=== PATIENT | male | born 1945 | race Caucasian/White ===

== ENCOUNTER 2023-04-18 08:40 | Outpatient (OUT) | payer MEDICARE, OTHER, SELFPAY ==
[2023-04-18 09:09] LABS: Basophils Absolute Auto 0.1 10^3/uL (0.0-0.1); Basophils Percent Auto 3.3 % (0.2-2.0); Eosinophils Absolute Auto 0.2 10^3/uL (0.0-0.7); Hematocrit 42.7 % (42.0-54.0); Hemoglobin 14.9 g/dL (14.0-18.0); Immature Granulocytes Abs Auto 0.03 10^3/uL (0.00-0.03); Immature Granulocytes Pct Auto 0.7 % (0.0-0.5); Lymphocytes Percent Auto 23.4 % (20.5-60.0); Mean Corpuscular HGB Conc 34.9 g/dL (29.9-35.2); Mean Corpuscular Volume 100.2 fL (80.0-94.0); Mean Platelet Volume 9.5 fL (9.5-13.5); Monocytes Absolute Auto 0.6 10^3/uL (0.3-0.8); Monocytes Percent Auto 14.3 % (1.7-12.0); Neutrophils Absolute Auto 2.2 10^3/uL (1.4-6.5); Neutrophils Percent Auto 53.3 % (43.0-75.0); Platelet Count 228 10^3/uL (150-450); Red Blood Count 4.26 10^6/uL (4.70-6.10); Red Cell Distribution Width 13.6 % (11.0-15.0); White Blood Count 4.2 10^3/uL (4.0-11.0)
[2023-04-18 09:32] LABS: Estimated Average Glucose 148 mg/dL; Glycohemoglobin A1C 6.8 % (4.5-6.2)
[2023-04-18 09:52] LABS: Alanine Aminotransferase 14 U/L (16-63); Albumin Globulin Ratio 0.9; Albumin Level 3.4 g/dL (3.4-5.0); Alkaline Phosphatase 75 U/L (46-116); Anion Gap 9.9; Aspartate Amino Transferase 10 U/L (15-37); BUN Creatinine Ratio 14.6; Bilirubin Total 0.7 mg/dL (0.2-1.0); Calcium 8.7 mg/dL (8.5-10.1); Carbon Dioxide 28.3 mmol/L (21.0-32.0); Chloride 105 mmol/L (98-107); Chol HDL Ratio 2.8; Cholesterol 167 mg/dL (<=200); Estimated GFR (African America 55 (>=60); Estimated GFR (Non-African Ame 45 (>=60); Free T3 2.78 pg/mL (2.18-3.98); Globulin 3.6 g/dL; Glucose 178 mg/dL (74-106); HDL Cholesterol 60 mg/dL (40-60); Potassium 4.2 mmol/L (3.5-5.1); Sodium 139 mmol/L (136-145); Thyroid Stimulating Hormone 2.338 uIU/mL (0.358-3.740); Triglycerides 171 mg/dL (<=150); VLDL CHOLESTEROL 34.2 mg/dL
== END 2023-04-18 08:41 | disposition home or self-care (01) ==
LOC: LAB 08:45
PROVIDERS: PCP Family Medicine; Visit Provider Family Medicine
DX: E11.9 Type 2 diabetes mellitus without complications (principal); E78.5 Hyperlipidemia, unspecified
CPT/HCPCS: 36415; 80053; 80061; 83036; 84436; 84443; 84481; 85025

== ENCOUNTER 2023-09-25 09:41 | Emergency (ER) | payer MEDICARE, OTHER, SELFPAY ==
[2023-09-25 09:50] VITALS: BP 131/61; PULSE 74; RESP 18; TEMP 38.1; O2SAT 95; BMI 26.6
--- NOTE | 2023-09-25 09:58 | ED.GENADUL1 ---
HPI - General Adult General Chief complaint: Upper Respiratory Infection Stated complaint: URTI COVID + Time Seen by Provider: 09/25/23 09:58 Mode of arrival: walk-in Limitations: no limitations History of Present Illness HPI narrative: Patient is a 78-year-old male who is presenting to the Emergency Room with chief complaint of testing positive for Covid yesterday and today. Patient was here because he wanted to get a prescription for Paxlovid. Patient stated his symptoms started approximately 3-4 days ago with sinus congestion, mild cough. Patient is a diabetic, he has no long history of emphysema, chronic obstructive pulmonary disease. Patient has no headache or neck pain. No chest pain or shortness of breath. No nausea, vomiting, diarrhea, no other acute complaints. Patient stated he's had symptoms for 4-5 days. Patient's is at bedside, she does have a history of emphysema and chronic obstructive pulmonary disease and is also worried about her getting Covid but currently she is asymptomatic. Mild lightheaded dizziness, no vertigo. . All systems are negative except as noted/marked. All systems reviewed and otherwise negative. . Nurses note and vital signs reviewed and patient is not hypoxic. Patient looks well. General: The patient appears well and in no apparent distress. Patient is resting comfortably on cart. Patient is not toxic, lethargic, or listless Skin: Warm, dry, no pallor noted. There is no rash noted. No petechiae, purpura. No rash. Head: Normocephalic, atraumatic; Patient has no tenderness to palpation to bilateral frontal or maxillary sinuses. Eye: Normal conjunctiva, no drainage, EOMI. PERRL Ears, Nose, Mouth, and Throat: oral mucosa is moist. Nares patent. Mouth without vesicles. Cardiovascular: Regular Rate and Rhythm, no murmur, gallop, rub Respiratory: Patient is in no distress, no accessory muscle use, lungs are clear to auscultation, no wheezing, rales or rhonchi. Lungs are equal, clear bilateral. Back: non-tender, no CVA tenderness bilaterally to percussion. No CT LS midline pain GI: soft, obese, no tenderness to palpation, no masses appreciated. No rebound, guarding, or rigidity noted. No flank pain bilateral, No distention Musculoskeletal: Patient has full range of motion of all of the extremities, no motor, sensory, or focal neurological deficits Neurological: A&O x3, normal speech Psychiatric: Cooperative Related Data Home Medications Medication Instructions Recorded Confirmed empagliflozin 10 mg tablet 10 mg PO Q24H 09/25/23 09/25/23 (Jardiance) glyburide micronized 6 mg tablet 6 mg PO Q12H 09/25/23 09/25/23 metformin 500 mg tablet 500 mg PO Q8H 09/25/23 09/25/23 oxycodone 10 mg tablet 10 mg PO PRN 09/25/23 09/25/23 pioglitazone 30 mg tablet 30 mg PO Q24H 09/25/23 09/25/23 Previous Rx's Medication Instructions Recorded ondansetron HCl 4 mg/5 mL oral 1.6 mg (2 mL) PO DAILY PRN nausea 09/25/23 solution and vomiting #10 mL Allergies Allergy/AdvReac Type Severity Reaction Status Date / Time No Known Drug Allergies Allergy Verified 09/25/23 09:49 PFSH PFS Social History Smoking status: Never smoker Exam Constitutional Vital Signs, click to edit/add: Last Vital Signs Temp 100.5 F H 09/25/23 09:50 Pulse 76 09/25/23 10:51 Resp 18 09/25/23 10:51 BP 128/77 09/25/23 10:51 Pulse Ox 98 09/25/23 10:51 O2 Del Method Room Air 09/25/23 09:50 Course Vital Signs Vital signs: Vital Signs Temperature 100.5 F H 09/25/23 09:50 Pulse Rate 74 09/25/23 09:50 Respiratory Rate 18 09/25/23 09:50 Blood Pressure 131/61 09/25/23 09:50 Pulse Oximetry 95 09/25/23 09:50 Oxygen Delivery Method Room Air 09/25/23 09:50 Temperature 100.5 F H 09/25/23 09:50 Pulse Rate 76 09/25/23 10:51 Respiratory Rate 18 09/25/23 10:51 Blood Pressure 128/77 09/25/23 10:51 Pulse Oximetry 98 09/25/23 10:51 Oxygen Delivery Method Room Air 09/25/23 09:50 Medical Decision Making MDM Narrative Medical decision making narrative: Patient looks well. The benefits and risks of starting to take Paxlovid 4-5 days after his symptoms have started were discussed at bedside. Patient symptoms are very minor. After long discussion, patient has decided tonight. Not taking any additional medication besides treating his symptoms [id number]. Patient was given a prescription for Zofran to have Prophylactically. Questions about coving were answered for the patient and for his as well. He will follow-up with PCP as needed for any additional questioning medication immediately needed. Discharge Plan Discharge Chief Complaint: Upper Respiratory Infection Clinical Impression: COVID Patient Disposition: Home, Self-Care Time of Disposition Decision: 13:01 Condition: Fair Prescriptions / Home Meds: New ondansetron HCl 4 mg/5 mL solution 1.6 mg PO DAILY PRN (Reason: nausea and vomiting) Qty: 10 0RF No Action Jardiance 10 mg tablet 10 mg PO Q24H glyburide micronized 6 mg tablet 6 mg PO Q12H metformin 500 mg tablet 500 mg PO Q8H oxycodone 10 mg tablet 10 mg PO PRN pioglitazone 30 mg tablet 30 mg PO Q24H Instructions: COVID-19 (Coronavirus Disease 2019) (ED), Safely Care for Someone Who Has COVID-19 (ED), Social Distancing Guidelines for COVID-19 (ED) Additional Instructions: Follows CDC recommendations uncovered treatment at home and safety along with isolation. Education at bedside was done on taking Paxlovid. If any other questions arise, follow-up with PCP. Stand Alone Forms: Portal Instructions Referrals: Jose Alberto Young MD [Primary Care Provider] - 1 week
[2023-09-25] MEDS: IBUPROFEN 400 MG TABLET 800 MG PO (10:04)
[2023-09-25 10:51] VITALS: BP 128/77; PULSE 76; RESP 18; O2SAT 98
[2023-09-25 13:08] VITALS: BP 136/88; PULSE 88; RESP 18; O2SAT 98
== END 2023-09-25 13:10 | disposition home or self-care (01) ==
PROVIDERS: Emergency Provider Emergency Medicine; PCP Family Medicine
DX: U07.1 COVID-19 (principal); E11.9 Type 2 diabetes mellitus without complications; E66.9 Obesity, unspecified; Z79.899 Other long term (current) drug therapy; Z79.84 Long term (current) use of oral hypoglycemic drugs; Z68.26 Body mass index [BMI] 26.0-26.9, adult
CPT/HCPCS: 99283

== ENCOUNTER 2024-04-15 07:55 | Outpatient (OUT) | payer MEDICARE, OTHER, SELFPAY ==
--- OUTSIDE RECORDS SUMMARY | 2024-04-15 08:03 | XMS_ITS | CCD ---
Author Organization [facility] Care Team Providers Care Video Tape Duplicator Name Role Phone HANNA MATHIAS Primary Care Unavailable SELF, REFERRED Referring Unavailable TRISH CEVALLOS Admitting Unavailable FRANCIS SAVAGE Attending Unavailable [place] Procedure Practitioner Unavailab DANIELA Pennington Surgeon Unavailable [place] Procedure Practitioner Unavailab FRANCIS Cruz Surgeon Unavailable Hanna Mathias MD Primary Care Provider Hanna Mathias MD Primary Care Provider [phone] Hanna Mathias MD Primary Care Provider [phone] HANNA MATHIAS Admitting Unavailable STEW, DR FERREIRA Attending Unavailable STEW, DR FERREIRA Primary Care Unavailable STEW, DR FERREIRA Consulting Unavailable STEW, DR FERREIRA Admitting Unavailable STEW, DR FERREIRA Attending Unavailable STEW, DR FERREIRA Primary Care Unavailable STEW, DR FERREIRA Admitting Unavailable STEW, DR FERREIRA Attending Unavailable DR HANNA MATHIAS Primary Care Unavailable STEW, DR FERREIRA Consulting Unavailable DR ROXANA LEWIS Admitting Unavailable JOSHUA, DR SCHMIDT Attending Unavailable STEW, DR FERREIRA Primary Care Unavailable LEWISDR SCHMIDT Consulting Unavailable LEWIS, DR SCHMIDT Admitting Unavailable LEWISDR SCHMIDT Attending Unavailable STEW, DR FERREIRA Primary Care Unavailable STEW, DR FERREIRA Consulting Unavailable STEW, DR FERREIRA Admitting Unavailable STEW, DR FERREIRA Attending Unavailable STEW, DR FERREIRA Primary Care Unavailable STEW, DR FERREIRA Admitting Unavailable STEW, DR FERREIRA Attending Unavailable STEW, DR FERREIRA Primary Care Unavailable STEW, DR FERREIRA Consulting Unavailable STEW, DR FERREIRA Admitting Unavailable STEW, DR FERREIRA Attending Unavailable STEW, DR FERREIRA Primary Care Unavailable STEW, DR FERREIRA Consulting Unavailable Hanna Mathias MD Primary Care Provider [phone] Hanna Mathias MD Primary Care Provider [phone] Hanna Mathias MD Primary Care Provider [phone] Hanna Mathias MD Primary Care Provider [phone] URIEL GUNTER Referring Unavailable URIEL GUNTER Attending Unavailable HOY, HANNA M Primary Care Unavailable HOY, HANNA M Primary Care Unavailable URIEL GUNTER Referring Unavailable HOY, HANNA M Primary Care Unavailable CLAUDIA WILSON Attending Unavailable HOY, HANNA M Primary Care Unavailable HOY, HANNA M Primary Care Unavailable URIEL GUNTER Referring Unavailable URIEL GUNTER Referring Unavailable HOY, HANNA M Primary Care Unavailable URIEL GUNTER Attending Unavailable HOY, HANNA M Primary Care Unavailable URIEL GUNTER Referring Unavailable HOY, HANNA M Primary Care Unavailable CLAUDIA WILSON Attending Unavailable HOY, HANNA M Primary Care Unavailable URIEL GUNTER Referring Unavailable HOY, HANNA M Primary Care Unavailable URIEL GUNTER Referring Unavailable URIEL GUNTER Attending Unavailable HOY, HANNA M Primary Care Unavailable HOY, HANNA M Primary Care Unavailable Allergies Allergy Classification Reported Allergen(s) Allergy Type Date of Onset Reaction(s) Facility Aminoglycosides (antibiotic) (1 source) Tobramycin Drug Allergy 0 Other: See Comments [facility] Macrolides (antibiotic) (2 sources) Azithromycin Drug Allergy 7 Unknown [facility] Sulfonamides (antibiotic) (1 source) Sulfonamides (Antibiotic) Drug Allergy 2 Unknown [facility] (3 sources) Azithromycin; Translations: [AZITHROMYCIN] Drug Allergy 8 [facility] (2 sources) Sulfonamides (Antibiotic); Translations: [SULFA (SULFONAMIDE ANTIBIOTICS)] Drug allergy (disorder) 2 [facility] (20 sources) Azithromycin Drug Allergy 8 Unknown [facility] (20 sources) Erythromycin; Translations: [ERYTHROMYCIN] Drug Allergy 7 Unknown [facility] (20 sources) Sulfonamides (Antibiotic) Drug Allergy 2 Unknown [facility] (20 sources) Tobramycin; Translations: [TOBRAMYCIN] Drug Allergy 0 Other: See Comments [facility] (1 source) Erythromycin Drug Allergy [facility] Medications Current Medications Medication Drug Class(es) Dates Sig (Normalized) Sig (Original) dexamethasone 4 mg oral tablet (20 sources) Corticosteroid Start: 10-17-2023 End: 01-28-2024 take 2 tablets by mouth every week dexAMETHasone (DECADRON) 4 mg tablet TAKE 2 TABLETS BY MOUTH ONCE A WEEK 24 tablet 3 01/28/2024 Active Start: 06-02-2021 End: 10-16-2022 take 2 tablets by mouth every week dexAMETHasone (DECADRON) 4 mg tablet TAKE 2 TABLETS BY MOUTH ONCE A WEEK 24 tablet 3 10/16/2022 Active Comment on above: TAKE 2 TABLETS BY [facility] ONCE A WEEK dexlansoprazole 60 mg delayed release oral capsule (20 sources) Proton Pump Inhibitor Start: 021 take 1 capsule by mouth once daily DEXILANT 60 mg CpDM Take 1 capsule by mouth once daily. 0 09/20/2021 Active Comment on above: Take 1 capsule by [facility] once daily. empagliflozin 10 mg oral tablet (20 sources) Sodium-Glucose Cotransporter 2 Inhibitor Start: 022 take 1 tablet by mouth once daily JARDIANCE 10 mg tablet Take 10 mg by mouth once daily. 0 08/21/2022 Active Comment on above: Take 10 mg by mouth once daily. fenofibrate 145 mg oral tablet (20 sources) Peroxisome Proliferator Receptor alpha Agonist Start: 018 take 1 tablet by mouth once daily fenofibrate nanocrystallized (TRICOR) 145 mg tablet Take 145 mg by mouth once daily. 0 10/29/2017 Active Comment on above: Take 145 mg by mouth once daily. 30 actuat fluticasone furoate 0.1 mg/actuat / vilanterol 0.025 mg/actuat dry powder inhaler (20 sources) Corticosteroid, beta2-Adrenergic Agonist Start: 018 BREO ELLIPTA 100-25 mcg/dose inhaler 1 Inhalation once daily. 0 08/05/2018 Active Comment on above: 1 Inhalation once da mary. glyBURIDE 6 mg oral tablet (20 sources) Sulfonylurea Start: 023 glyBURIDE micronized (GLYNASE) 6 mg tablet Start: 07-25-2021 glyBURIDE micr onized (GLYNASE) 3 mg tablet lenalidomide 5 mg oral capsule (20 sources) Thalidomide Analog Start: 10-17-2023 End: 04-08-2024 lenalidomide (REVLIMID) 5 mg capsule Take 1 capsule by mouth daily for 21 days on and 7 days off. 21 capsule 0 04/08/2024 Active Start: 06-18-2023 End: 08-20-2023 lenalidomide (REVLIMID) 5 mg capsule Take 1 capsule by mouth daily for 21 days on and 7 days off. 21 capsule 0 08/20/2023 Active Start: 05-11-2023 lenalidomide ( REVLIMID) 5 mg capsule Take 1 capsule by mouth daily for 21 days on and 7 days off. 21 capsule 0 05/11/2023 Active Start: 03-06-2023 End: 04-18-2023 lenalidomide (REVLIMID) 5 mg capsule Take 1 capsule by mouth daily for 21 days on and 7 days off. 21 capsule 0 04/18/2023 Active Start: 07-20-2022 End: 02-05-2023 lenalidomide (REVLIMID) 5 mg capsule Take 1 capsule by mouth daily for 21 days on and 7 days off. 21 capsule 0 02/05/2023 Active Start: 11-28-2021 End: 06-16-2022 lenalidomide (REVLIMID) 5 mg capsule Take 1 capsule by mouth daily for 21 days on and 7 days off. 21 capsule 0 06/17/2022 Active Comment on above: Take 1 capsule by [facility] daily for 21 days on and 7 days off. levothyroxine sodium 0.05 mg oral tablet (20 sources) l-Thyroxine Start: 01-01-20 15 take 1 tablet by mouth once daily levothyroxine (SYNTHROID) 50 mcg tablet Take 50 mcg by mouth once daily. 0 12/31/2014 Active Comment on above: Take 50 mcg by mouth once daily. liothyronine sodium 0.005 mg oral tablet (20 sources) l-Triiodothyronine Start: 08-12-20 21 liothyronine (CYTOMEL) 5 mcg tablet meloxicam 15 mg oral tablet (20 sources) Nonsteroidal Anti-inflammatory Drug Start: 07-30-20 13 MELOXICAM 15 mg tablet Take 15 mg by mouth as needed. 0 07/30/2013 Active Comment on above: Take 15 mg by mouth as needed. metFORMIN hydrochloride 500 mg oral tablet (20 sources) Biguanide Start: 10-14-19 take 2 tablets by mouth once daily at breakfast GLUCOPHAGE 500 MG TAB Take 1,000 mg by mouth daily with breakfast. 0 10/14/2019 Active Comment on above: Take 1,000 mg by joel th daily with breakfast. oxyCODONE hydrochloride 10 mg oral tablet (20 sources) Opioid Agonist Start: 10-10-19 oxyCODONE IR (ROXICODONE) 10 mg tab 10 mg as needed. 0 10/10/2017 Active Comment on above: 10 mg as needed. pantoprazole 40 mg delayed release oral tablet (20 sources) Proton Pump Inhibitor take 1 tablet by mouth once daily pantoprazole DR (PROTONIX) 40 mg tablet Take 40 mg by mouth once daily. 0 Active Comment on above: Take 40 mg by mouth once daily. Completed/Discontinued Medications Medication Drug Class(es) Dates Sig (Normalized) Sig (Original) dexamethasone 1 mg/ml / tobramycin 3 mg/ml ophthalmic suspension (20 sources) Aminoglycoside Antibacterial, Corticosteroid Start: 08-01-2019 End: 11-27-2023 take 2 drop(s) into the eye(s) four times daily tobramycin-dexame thasone (TOBRADEX) ophthalmic suspension INSTILL 2 DROPS INTO AFFECTED EYE 4 TIMES DAILY 0 08/01/2019 11/27/2023 Discontinued (Discontinued by another Health Care Provider) Comment on above: INSTILL 2 DROPS INTO AFFECTED EYE 4 TIMES DAILY hydrocortisone 10 mg/ml / neomycin 3.5 mg/ml / polymyxin b 37524 unt/ml otic solution (20 sources) Aminoglycoside Antibacterial, Polymyxin-class Antibacterial, Corticosteroid Start: 05-29-2019 End: 11-27-2023 neomycin-polymyxi n-hydrocortisone (CORTISPORIN) otic solution INSTILL 3 4 DROPS IN AFFECTED EAR FOUR TIMES DAILY 1 05/29/2019 11/27/2023 Discontinued (Discontinued by Patient) Comment on above: INSTILL 3 4 DROPS IN AFFECTED EAR FOUR TIMES DAILY metroNIDAZOLE 500 mg oral tablet (20 sources) Nitroimidazole Antimicrobial Start: 08-15-2021 End: 11-27-2023 metroNIDAZOLE (FLAGYL) 500 mg tablet pamidronate 30 mg in NaCl 0.9% 250 mL (AREDIA) (1 source) Start: 02-26-2024 End: 02-26-2024 pamidronate 30 mg in NaCl 0.9% 250 mL (AREDIA) pioglitazone 30 mg oral tablet (20 sources) Peroxisome Proliferator Receptor alpha Agonist, Peroxisome Proliferator Receptor gamma Agonist, Thiazolidinedione Start: 08-03-2021 End: 11-27-2023 pioglitazone (ACTOS) 30 mg tablet vancomycin 250 mg oral capsule (20 sources) Glycopeptide Antibacterial Start: 08-15-2021 End: 11-27-2023 vancomycin (VANCOCIN) 250 mg capsule 0 08/15/2021 11/27/2023 Discontinued (Discontinued by another Health Care Provider) Problems Active Problems Problem Classification Problem Date Documented Da te Episodic/Chronic Chronic kidney disease (20 sources) Chronic kidney disease stage 3; Translations: [Stage 3 chronic kidney disease, unspecified whether stage 3a or 3b CKD] Onset: 03-06-2023 03-06-2023 Chronic Diabetes mellitus without complication (20 sources) Diabetes mellitus; Translations: [Type 2 diabetes mellitus without complications] Onset: 12-24-2012 12-24-2012 Chronic Disorders of lipid metabolism (1 source) Hyperlipidemia, unspecified; Translations: [HYPERLIPIDEMIA UNSPECIFIED] Onset: 03-16-2022 Chronic Multiple myeloma (20 sources) Multiple myeloma; Translations: [Multiple myeloma not having achieved remission] Onset: 09-25-2012 07-10-2014 Chronic Other bone disease and musculoskeletal deformities (20 sources) Osteitis deformans; 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] Onset: 12-24-2012 12-24-2012 Chronic Past or Other Problems Problem Classification Problem Date Documented Da te Episodic/Chronic Abdominal hernia (20 sources) Left inguinal hernia ; Translations: [Unilateral inguinal hernia, without obstruction or gangrene, not specified as recurrent] Onset: 10-20-2015 10-20-2015 Episodic Anal and rectal conditions (20 sources) Perineal irritation; Translations: [Other specified diseases of anus and rectum] Onset: 10-20-2015 10-20-2015 Episodic Diabetes mellitus without complication (1 source) Other abnormal glucose; Translations: [OTHER ABNORMAL GLUCOSE] Onset: 03-16-2022 Episodic Gastrointestinal hemorrhage (20 sources) Hemorrhage of rectum and anus; Translations: [Hemorrhage of anus and rectum] Onset: 10-20-2015 10-20-2015 Episodic Malaise and fatigue (5 sources) Other fatigue; Translations: [OTHER FATIGUE] Onset: 03-14-2022 Episodic Other aftercare (20 sources) Long-term current use of systemic 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; 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] Onset: 10-20-2015 10-20-2015 Episodic Other connective tissue disease (1 source) Abnormal posture; Translations: [ABNORMAL POSTURE] Onset: 03-28-2022 Episodic Other connective tissue disease (1 source) Pain in right hand; Translations: [PAIN IN RIGHT HAND] Onset: 03-28-2022 Episodic Other gastrointestinal disorders (20 sources) H/O: ulcerative colitis; Translations: [Personal history of other diseases of the digestive system] Onset: 12-24-2012 12-24-2012 Episodic Other gastrointestinal disorders (20 sources) Constipation; Translations: [Outlet dysfunction constipation] Onset: 10-20-2015 10-20-2015 Episodic Other screening for suspected conditions (not mental disorders or infectious disease) (20 sources) Raised prostate specific antigen; Translations: [Elevated prostate specific antigen [PSA]] Onset: 03-19-2020 03-19-2020 Episodic Residual codes; unclassified (4 sources) Acquired absence of other specified parts of digestive tract; Translations: [ACQ ABSENCE OTH PART DIGESTV TRACT] Onset: 09-12-2021 Episodic Screening and history of mental health and substance abuse codes (20 sources) Ex-smoker; Translations: [Personal history of nicotine dependence] Onset: 10-20-2015 10-20-2015 Episodic Spondylosis; intervertebral disc disorders; other back problems (4 sources) Radiculopathy, cervical region; Translations: [RADICULOPATHY CERVICAL REGION] Onset: 03-24-2022 Episodic Results Test Name Value Interpretation Reference Range Facility [facility] ZACH MANUEL ([id number]) 1945 M Date Time Provider Department 02/29/24 JUAN FERGUSON During your visit today, we recorded the following information about you: Juan Ferguson RN 02/29/2024 8:52 AM Signed ----- Message from Latrice Lechuga PA-C sent at 02/29/2024 8:10 AM EDT ----- Please let patient know his labs are stable and we will continue to monitor Juan Ferguson RN 02/29/2024 8:53 AM Signed Pt notified and verbalizes understanding. Juan Ferguson RN Allergies As of Date: 02/29/2024 Noted Allergy Reaction AZITHROMYCIN 07/12/2018 16 - Unknown ERTHROMYCIN (ERYTHROMYCIN) 12/05/2016 16 - Unknown SULFA (SULFONAMIDE ANTIBIOTICS) 09/19/2012 16 - Unknown TOBRAMYCIN 03/08/2020 14 - Other: See Comments Comments: made condition worse Date Reviewed: 02/26/2024 Reviewed by: Selin Stapleton MA - Fully Assessed Reason for Visit: Care Coordination [3491] Cmt: Labs Prescriptions as of 02/29/2024 - lenalidomide (REVLIMID) 5 mg capsule Take 1 capsule by mouth daily for 21 days on and 7 days off. - dexAMETHasone (DECADRON) 4 mg tablet TAKE 2 TABLETS BY MOUTH ONCE A WEEK - glyBURIDE micronized (GLYNASE) 6 mg tablet - JARDIANCE 10 mg tablet Take 10 mg by mouth once daily. - DEXILANT 60 mg CpDM Take 1 capsule by mouth once daily. - liothyronine (CYTOMEL) 5 mcg tablet - pantoprazole DR (PROTONIX) 40 mg tablet Take 40 mg by mouth once daily. - BREO ELLIPTA 100-25 mcg/dose inhaler 1 Inhalation once daily. - fenofibrate nanocrystallized (TRICOR) 145 mg tablet Take 145 mg by mouth once daily. - oxyCODONE IR (ROXICODONE) 10 mg tab 10 mg as needed. - levothyroxine (SYNTHROID) 50 mcg tablet Take 50 mcg by mouth once daily. - MELOXICAM 15 mg tablet Take 15 mg by mouth as needed. - GLUCOPHAGE 500 MG TAB Take 1,000 mg by mouth daily with breakfast. 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 Outlet dysfunction constipation [K59.02] 10/20/2015 Perirectal skin irritation [K62.89] 10/20/2015 Anal bleeding [K62.5] 10/20/2015 Type 2 diabetes mellitus without complication (*10/20/2015 alf current use of systemic steroids [Z79*10/20/2015 Left inguinal hernia [K40.90] 10/20/2015 Former smoker [Z87.891] 10/20/2015 Elevated prostate specific antigen (PSA) [R97.2*03/19/2020 Stage 3 chronic kidney disease, unspecified whe*03/06/2023 Encounter Status:Closed by JUAN FERGUSON on 02/29/24 Normal [facility] CBC W Auto Differential pane l (Bld)on 02-26-2024 Basophils (Bld) [#/Vol] 0.09 10*3/uL Normal <0.11 [facility] Comment on above: Order Comment: Speci men Type: BLOOD SPECIMENOrdering Facility: [facility] Address: [address] [place] [address] Performed By: #### 5 7021-8 ####[facility] LABCLIA [id number] [place] [address] Basophils/100 WBC (Bld) 1.4 % Normal [facility] Comment on above: Order Comment: Speci men Type: BLOOD SPECIMENOrdering Facility: [facility] Address: [address] [place] [address] Performed By: #### 5 7021-8 ####[facility] LABCLIA [id number] [place] [address] Differential cell count method Nom (Bld) Auto Normal [facility] Comment on above: Order Comment: Speci men Type: BLOOD SPECIMENOrdering Facility: [facility] Address: [address] [place] [address] Performed By: #### 5 7021-8 ####[facility] LABCLIA [id number] [place] [address] Eosinophils (Bld) [#/Vol] 0.44 10*3/uL Normal <0.46 [facility] Comment on above: Order Comment: Speci men Type: BLOOD SPECIMENOrdering Facility: [facility] Address: [address] [place] [address] Performed By: #### 5 7021-8 ####[facility] LABCLIA [id number] [place] [address] Eosinophils/100 WBC (Bld) 6.6 % Normal [facility] Comment on above: Order Comment: Speci men Type: BLOOD SPECIMENOrdering Facility: [facility] Address: [address] [place] [address] Performed By: #### 5 7021-8 ####[facility] LABCLIA [id number] [place] [address] Erythrocyte distribution width (RBC) [Ratio] 15.4 % High 11.5-15.0 [facility] Comment on above: Order Comment: Speci men Type: BLOOD SPECIMENOrdering Facility: [facility] Address: [address] [place] [address] Performed By: #### 5 7021-8 ####[facility] LABCLIA [id number] [place] [address] Hematocrit (Bld) [Volume fraction] 38.0 % Low 39.0-51.0 [facility] Comment on above: Order Comment: Speci men Type: BLOOD SPECIMENOrdering Facility: [facility] Address: [address] [place] [address] Performed By: #### 5 7021-8 ####[facility] LABCLIA [id number] [place] [address] Hemoglobin (Bld) [Mass/Vol] 12.9 g/dL Low 13.0-17.0 [facility] Comment on above: Order Comment: Speci men Type: BLOOD SPECIMENOrdering Facility: [facility] Address: [address] [place] [address] Performed By: #### 5 7021-8 ####[facility] LABCLIA [id number] [place] [address] Immature granulocytes (Bld) [#/Vol] 0.04 10*3/uL Normal <0.10 [facility] Comment on above: Order Comment: Speci men Type: BLOOD SPECIMENOrdering Facility: [facility] Address: [address] [place] [address] Performed By: #### 5 7021-8 ####[facility] LABCLIA [id number] [place] [address] Immature granulocytes/100 WBC (Bld) 0.6 % Normal [facility] Comment on above: Order Comment: Speci men Type: BLOOD SPECIMENOrdering Facility: [facility] Address: [address] [place] [address] Performed By: #### 5 7021-8 ####[facility] LABCLIA [id number] [place] [address] Lymphocytes (Bld) [#/Vol] 1.24 10*3/uL Normal 1.00-4.00 [facility] Comment on above: Order Comment: Speci men Type: BLOOD SPECIMENOrdering Facility: [facility] Address: [address] [place] [address] Performed By: #### 5 7021-8 ####[facility] LABCLIA [id number] [place] [address] Lymphocytes/100 WBC (Bld) 18.6 % Normal [facility] Comment on above: Order Comment: Speci men Type: BLOOD SPECIMENOrdering Facility: [facility] Address: [address] [place] [address] Performed By: #### 5 7021-8 ####[facility] LABCLIA [id number] [place] [address] MCH (RBC) [Entitic mass] 35.5 pg High 26.0-34.0 [facility] Comment on above: Order Comment: Speci men Type: BLOOD SPECIMENOrdering Facility: [facility] Address: [address] [place] [address] Performed By: #### 5 7021-8 ####[facility] LABCLIA [id number] [place] [address] MCHC (RBC) [Mass/Vol] 33.9 g/dL Normal 30.5-36.0 [facility] Comment on above: Order Comment: Speci men Type: BLOOD SPECIMENOrdering Facility: [facility] Address: [address] [place] [address] Performed By: #### 5 7021-8 ####[facility] LABCLIA [id number] [place] [address] MCV (RBC) [Entitic vol] 104.7 fL High 80.0-100.0 [facility] Comment on above: Order Comment: Speci men Type: BLOOD SPECIMENOrdering Facility: [facility] Address: [address] [place] [address] Performed By: #### 5 7021-8 ####[facility] LABCLIA [id number] [place] [address] Monocytes (Bld) [#/Vol] 0.88 10*3/uL High <0.87 [facility] Comment on above: Order Comment: Speci men Type: BLOOD SPECIMENOrdering Facility: [facility] Address: [address] [place] [address] Performed By: #### 5 7021-8 ####[facility] LABIA [id number] [place] [address] Monocytes/100 WBC (Bld) 13.2 % Normal [facility] Comment on above: Order Comment: Speci men Type: BLOOD SPECIMENOrdering Facility: [facility] Address: [address] [place] [address] Performed By: #### 5 7021-8 ####[facility] LABCLIA [id number] [place] [address] Neutrophils (Bld) [#/Vol] 3.96 10*3/uL Normal 1.45-7.50 [facility] Comment on above: Order Comment: Speci men Type: BLOOD SPECIMENOrdering Facility: [facility] Address: [address] [place] [address] Performed By: #### 5 7021-8 ####[facility] LABCLIA [id number] [place] [address] Neutrophils/100 WBC (Bld) 59.6 % Normal [facility] Comment on above: Order Comment: Speci men Type: BLOOD SPECIMENOrdering Facility: [facility] Address: [address] [place] [address] Performed By: #### 5 7021-8 ####[facility] LABCLIA [id number] [place] [address] Nucleated RBC (Bld) [#/Vol] 10*3/uL Normal <0.01 [facility] Comment on above: Order Comment: Speci men Type: BLOOD SPECIMENOrdering Facility: [facility] Address: [address] [place] [address] Performed By: #### 5 7021-8 ####[facility] LABCLIA [id number] [place] [address] Nucleated RBC/100 WBC (Bld) [Ratio] 0.0 /100 WBC Normal [facility] Comment on above: Order Comment: Speci men Type: BLOOD SPECIMENOrdering Facility: [facility] Address: [address] [place] [address] Performed By: #### 5 7021-8 ####[facility] LABCLIA [id number] [place] [address] Platelet mean volume (Bld) [Entitic vol] 10.6 fL Normal 9.0-12.7 [facility] Comment on above: Order Comment: Speci men Type: BLOOD SPECIMENOrdering Facility: [facility] Address: [address] [place] [address] Performed By: #### 5 7021-8 ####[facility] LABIA [id number] [place] [address] Platelets (Bld) [#/Vol] 203 10*3/uL Normal 150-400 [facility] Comment on above: Order Comment: Speci men Type: BLOOD SPECIMENOrdering Facility: [facility] Address: [address] [place] [address] Performed By: #### 5 7021-8 ####[facility] [id number] [place] [address] RBC (Bld) [#/Vol] 3.63 10*6/uL Low 4.20-6.00 [facility] Comment on above: Order Comment: Speci men Type: BLOOD SPECIMENOrdering Facility: [facility] Address: [address] [place] [address] Performed By: #### 5 7021-8 ####[facility] [id number] [place] [address] WBC (Bld) [#/Vol] 6.65 10*3/uL Normal 3.70-11.00 [facility] Comment on above: Order Comment: Speci men Type: BLOOD SPECIMENOrdering Facility: [facility] Address: [address] [place] [address] Performed By: #### 5 7021-8 ####[facility] LABIA [id number] [place] [address] CNOVSPon 02-26-2024 CNOVSP Visit (SP) Office ([facility]) ZACH MANUEL ([id number]) 1945 M Date Time Provider Department 02/26/24 1:15 PM URIEL GUNTER During your visit today, we recorded the following information about you: Temperature Pulse Respiration Blood pressure 97.6 degrees 59/minute 18/minute 126/68 Weight Height 84.3 kg 1.753 m Uriel Gunter MD 02/27/2024 4:09 PM Signed PATIENT NAME: Zach Manuel DATE: 02/26/2024 PRIMARY CARE PHYSICIAN: Dr. Hanna Mathias OTHER PHYSICIANS: Dr. Lewis, Dr. Martinez Portions of this encounter note have been copied from the note from 11/27/2023 and has been updated where appropriate, and reflect my current medical decision making from today. CC: This is a 78 year old male with a history of multiple myeloma, seen for scheduled follow-up. INTERIM HISTORY: Since the patient's last visit here he has had no significant medical changes. He remains on Revlimid 5 mg daily 3 weeks on and 1 week off plus Decadron 8 mg weekly. He is tolerating his medications well. He feels well today with no particular complaints. No unusual pain. No fevers or signs of infection. MEDICATIONS: lenalidomide (REVLIMID) 5 mg capsule Take 1 capsule by mouth daily for 21 days on and 7 days off. dexAMETHasone (DECADRON) 4 mg tablet TAKE 2 TABLETS BY MOUTH ONCE A WEEK glyBURIDE micronized (GLYNASE) 6 mg tablet JARDIANCE 10 mg tablet Take 10 mg by mouth once daily. DEXILANT 60 mg CpDM Take 1 capsule by mouth once daily. liothyronine (CYTOMEL) [address] (PROTONIX) 40 mg tablet Take 40 mg by mouth once daily. BREO ELLIPTA 100-25 mcg/dose inhaler 1 Inhalation once daily. fenofibrate nanocrystallized (TRICOR) 145 mg tablet Take 145 mg by mouth once daily. oxyCODONE IR (ROXICODONE) 10 mg tab 10 mg as needed. levothyroxine (SYNTHROID) 50 mcg tablet Take 50 mcg by mouth once daily. MELOXICAM 15 mg tablet Take 15 mg by mouth as needed. GLUCOPHAGE 500 MG TAB Take 1,000 mg by mouth daily with breakfast. 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 HEENT: Negative for frequent or significant headaches. No changes in hearing or vision, no nose bleeds or other nasal problems. Respiratory: Negative for cough, wheezing or shortness of breath. Cardiovascular: Negative for chest pain, leg swelling or palpitations. GI: Negative for abdominal discomfort, blood in stools or black stools or change in bowel habits. : No history of dysuria, frequency or incontinence. Musculoskeletal: Right leg pain status post fracture- persistent. Skin: Negative for lesions, rash and itching. Hematology/Lymphology: Negative for prolonged bleeding, bruising easily or swollen nodes. Neuro: No history of headaches, syncope, paralysis, seizures or tremors. PHYSICAL EXAM: Vitals: BP 126/68 Pulse (!) 59 Temp 36.4 ?C (97.6 ?F) (Temporal) Resp 18 Ht 175.3 cm (5' 9.02 ) Wt 84.3 kg (185 lb 13.6 oz) SpO2 97% BMI 27.43 kg/m? ECOG 0 Exam limited to gross visualization where appropriate due to COVID-19. Gen.: This is an age-appropriate patient in no acute distress. Head: Appears atraumatic with no visible lesions. Eyes: Pupils equally round and reactive to light, extraocular muscles are intact. Neck: Supple. Mouth: Mucous membranes appeared to be moist. Respiratory: Appears to be respiring comfortably. Neurologic: Nonfocal to gross visualization. Alert and oriented ?3. Psychiatric: No evidence of inappropriate anxiety or depression. Skin: Visible areas of skin without rash, lesions, wounds or petechiae. PATHOLOGY: 05/07/2020 Prostate biopsy ([facility]) FINAL DIAGNOSIS 1. Prostate, left base, core biopsy (A): Benign prostatic tissue 2. Prostate, left mid, core biopsy (B): Focal high-grade prostatic intraepithelial neoplasia (PIN) 3. Prostate, left apex, core biopsy (C): Benign prostatic tissue 4. Prostate, right base, core biopsy (D): Benign prostatic tissue 5. Prostate, right mid, core biopsy (E): Benign prostatic tissue 6. Prostate, right apex, core biopsy (F): Benign prostatic tissue 7. Prostate, T1 right mid posterolateral (more content not included)... Normal [facility] Comprehensive metabolic 2000 panelon 02-26-2024 Albumin [Mass/Vol] 3.9 g/dL Normal 3.9-4.9 [facility] Comment on above: Order Comment: Speci men Type: BLOOD SPECIMEN Ordering Facility: [facility] Address: [address] [place] [address] Performed By: #### 2 857-1 #### [facility] CLIA [id number] [facility] [place] [address] [place] ALP [Catalytic activity/Vol] 78 U/L Normal 38-113 [facility] Comment on above: Order Comment: Speci men Type: BLOOD SPECIMEN Ordering Facility: [facility] Address: [address] [address] Performed By: #### 2 857-1 #### [facility] CLIA [id number] [facility] [place] [address] [place] ALT [Catalytic activity/Vol] 8 U/L Low 10-54 [facility] Comment on above: Order Comment: Speci men Type: BLOOD SPECIMEN Ordering Facility: [facility] Address: [address] [address] Performed By: #### 2 857-1 #### [facility] CLIA [id number] [facility] [place] [address] [place] Anion gap [Moles/Vol] 6 mmol/L Low 8-15 [facility] Comment on above: Order Comment: Speci men Type: BLOOD SPECIMEN Ordering Facility: [facility] Address: [address] Performed By: #### 2 857-1 #### [facility] CLIA [id number] [address] [place] [address] [place] AST [Catalytic activity/Vol] 13 U/L Low 14-40 [facility] Comment on above: Order Comment: Speci men Type: BLOOD SPECIMEN Ordering Facility: [facility] Address: [address] Performed By: #### 2 857-1 #### [facility] CLIA [id number] [address] [place] [address] [place] Bilirubin [Mass/Vol] 0.8 mg/dL Normal 0.2-1.3 [facility] Comment on above: Order Comment: Speci men Type: BLOOD SPECIMEN Ordering Facility: [facility] Address: [address] [place], [place] [address] Performed By: #### 2 857-1 #### [facility] CLIA [id number] [address] [place] [address] [place] Calcium [Mass/Vol] 8.9 mg/dL Normal 8.5-10.2 [facility] Comment on above: Order Comment: Speci men Type: BLOOD SPECIMEN Ordering Facility: [facility] Address: [address] Performed By: #### 2 857-1 #### [facility] CLIA [id number] [address] [place] [address] [place] Chloride [Moles/Vol] 103 mmol/L Normal 98-107 [facility] Comment on above: Order Comment: Speci men Type: BLOOD SPECIMEN Ordering Facility: [facility] Address: [address] [place] [address] Performed By: #### 2 857-1 #### [facility] CLIA [id number] [address] [place] [address] [place] CO2 [Moles/Vol] 30 mmol/L Normal 22-30 [facility] Comment on above: Order Comment: Speci men Type: BLOOD SPECIMEN Ordering Facility: [facility] Address: [address] [place] [address] Performed By: #### 2 857-1 #### [facility] CLIA [id number] [address] [place] [address] [place] Creatinine [Mass/Vol] 1.70 mg/dL High 0.73-1.22 [facility] Comment on above: Order Comment: Speci men Type: BLOOD SPECIMEN Ordering Facility: [facility] Address: [address] [place] [address] Performed By: #### 2 857-1 #### [facility] CLIA [id number] [address] [place] [address] [place] Creatinine and Glomerular filtration rate.predicted panel (S/P/Bld) 41 mL/min/1.73m??? Low >=60 [facility] Comment on above: Order Comment: Speci men Type: BLOOD SPECIMEN Ordering Facility: [facility] Address: [address] [place] [address] Result Comment: Chanda mated Glomerular Filtration Rate (eGFR) is calculated using the 2020 CKD-EPI creatinine equation. This equation utilizes serum creatinine, sex, and age as parameters. The creatinine assay has traceable calibration to isotope dilution-mass spectrometry. Refer to KDIGO guidelines for clinical interpretation. In patients with unstable renal function, e.g. those with acute kidney injury, the eGFR may not accurately reflect actual GFR. Performed By: #### 2 857-1 #### [facility] CLIA [id number] [address] [place] [address] [place] Glucose [Mass/Vol] 175 mg/dL High 74-99 [facility] Comment on above: Order Comment: Michelle bueno Type: BLOOD SPECIMEN Ordering Facility: [facility] Address: [address] [place] [address] Result Comment: The [place] [employer] (ADA) provides guidance for cutoff values for fasting glucose and random glucose. The ADA defines fasting as no caloric intake for at least 8 hours. Fasting plasma glucose results between 100 to 125 mg/dL indicate increased risk for diabetes (prediabetes). Fasting plasma glucose results greater than or equal to 126 mg/dL meet the criteria for diagnosis of diabetes. In the absence of unequivocal hyperglycemia, results should be confirmed by repeat testing. In a patient with classic symptoms of hyperglycemia or hyperglycemic crisis, random plasma glucose results greater than or equal to 200 mg/dL meet the criteria for diagnosis of diabetes. Reference: Standards of Medical Care in Diabetes 2016, [place] [employer]. Diabetes Care. 2016.39(Suppl 1). Performed By: #### 2 857-1 #### [facility] CLIA [id number] [address] [place] [address] [place] Potassium [Moles/Vol] 4.8 mmol/L Normal 3.7-5.1 [facility] Comment on above: Order Comment: Michelle bueno Type: BLOOD SPECIMEN Ordering Facility: [facility] Address: [address] [place] [address] Performed By: #### 2 857-1 #### [facility] CLIA [id number] [address] [place] [address] [place] Protein [Mass/Vol] 6.7 g/dL Normal 6.3-8.0 [facility] Comment on above: Order Comment: Michelle bueno Type: BLOOD SPECIMEN Ordering Facility: [facility] Address: [address] [place] [address] Performed By: #### 2 857-1 #### [facility] CLIA [id number] [address] [place] [address] [place] Sodium [Moles/Vol] 139 mmol/L Normal 136-144 [facility] Comment on above: Order Comment: Speci men Type: BLOOD SPECIMEN Ordering Facility: [facility] Address: [address] [address] Performed By: #### 2 857-1 #### [facility] CLIA [id number] [address] [place] [address] [place] Urea nitrogen [Mass/Vol] 23 mg/dL Normal 9-24 [facility] Comment on above: Order Comment: Speci men Type: BLOOD SPECIMEN Ordering Facility: [facility] Address: [address] Performed By: #### 2 857-1 #### [facility] CLIA [id number] [address] [place] [address] [place] IMMUNOFIXATION SCREEN, SERUM on 02-26-2024 INTERPRETATION (MPA) Atypical restricted bands are present in the IgG and kappa regions. Consistent with IgG kappa monoclonal gammopathy. Normal [facility] Comment on above: Order Comment: Speci men Type: BLOOD SPECIMENOrdering Facility: [facility] Address: [address] [place] [address] Performed By: #### I FESC ####[facility]IA [id number] [place] [address] [place] MPA RESULT M protein is present. Abnormal No M p rotein is identified. [facility] Comment on above: Order Comment: Speci men Type: BLOOD SPECIMENOrdering Facility: [facility] Address: [address] [place] [address] Performed By: #### I FESC ####[facility] [id number] [place] [address] [place] STAFF REVIEW (MPA) Reviewed by Dr. Marcel White MD Normal [facility] Comment on above: Order Comment: Speci men Type: BLOOD SPECIMENOrdering Facility: [facility] Address: [address] [place] [address] Performed By: #### I FESC ####[facility] [id number] [place] [address] [place] IMMUNOGLOBULINS,IGG,IGA,IGMo n 02-26-2024 IgA [Mass/Vol] 96 mg/dL Normal 70-400 [facility] Comment on above: Order Comment: Speci men Type: BLOOD SPECIMENOrdering Facility: [facility] Address: [address] [place] [address] Performed By: #### S ERIMM ####[facility] [id number] [place] [address] [place] IgG [Mass/Vol] 1109 mg/dL Normal 700-1600 [facility] Comment on above: Order Comment: Speci men Type: BLOOD SPECIMENOrdering Facility: [facility] Address: [address] [place] [address] Performed By: #### S ERIMM ####[facility] [id number] [place] [address] [place] IgM [Mass/Vol] 17 mg/dL Low 40-230 [facility] Comment on above: Order Comment: Speci men Type: BLOOD SPECIMENOrdering Facility: [facility] Address: [address] [place] [address] Performed By: #### S ERIMM ####[facility] [id number] [place] [address] [place] KAPPA/DANIELS,FREE,SERon 2023 Immunoglobulin light chains.kappa.free (S) [Mass/Vol] 40.3 mg/L High 3.3-19.4 [facility] Comment on above: Order Comment: Speci men Type: BLOOD SPECIMENOrdering Facility: [facility] Address: [address] [place] [address] Result Comment: Rare ly, increased serum free light chains levels may not be detected or accurately quantified due to prozone phenomenon or in high viscosity samples using this immunoturbidimetric assay. Correlation with other laboratory results and clinical findings is recommended. The [place] Free Light Chain was performed using the Binding Site Optilite immunoturbidimetric method. Result obtained with different assay methods or kits cannot be used interchangeably. Performed By: #### K LFRS ####[facility] [id number] [place] [address] [place] Immunoglobulin light chains.kappa/Immun oglobulin light chains.lambda (S) [Mass ratio] 1.57 Normal 0.26-1.65 [facility] Comment on above: Order Comment: Speci men Type: BLOOD SPECIMENOrdering Facility: [facility] Address: [address] [place] [address] Performed By: #### K LFRS ####[facility] [id number] [address] [place] Immunoglobulin light chains.lambda.free [Mass/Vol] 25.6 mg/L Normal 5.7-26.3 [facility] Comment on above: Order Comment: Speci men Type: BLOOD SPECIMENOrdering Facility: [facility] Address: [address] [place] [address] Result Comment: Rare ly, increased serum free light chains levels may not be detected or accurately quantified due to prozone phenomenon or in high viscosity samples using this immunoturbidimetric assay. Correlation with other laboratory results and clinical findings is recommended. The Lambda Free Light Chain was performed using the Binding Site Optilite immunoturbidimetric method. Result obtained with different assay methods or kits cannot be used interchangeably. Performed By: #### K LFRS ####[facility] [id number] [place] [address] [place] PROTEIN ELECTROPHORESIS SERU M WITH TOÑITO (P)on 02-26-2024 Albumin [Mass/Vol] 4.08 g/dL Normal 3.43-5.41 [facility] Comment on above: Order Comment: Speci men Type: BLOOD SPECIMENOrdering Facility: [facility] Address: [address] [place] [address] Performed By: #### L [id number] ####[facility] [id number] [place] [address] [place] Alpha 1 globulin Elph [Mass/Vol] 0.25 g/dL Normal 0.18-0.43 [facility] Comment on above: Order Comment: Speci men Type: BLOOD SPECIMENOrdering Facility: [facility] Address: [address] [place] [address] Performed By: #### L [id number] ####[facility] [id number] [place] [address] [place] Alpha 2 globulin Elph [Mass/Vol] 0.67 g/dL Normal 0.42-0.98 [facility] Comment on above: Order Comment: Speci men Type: BLOOD SPECIMENOrdering Facility: [facility] Address: [address] [place] [address] Performed By: #### L [id number] ####[facility] [id number] [place] [address] [place] Beta globulin Elph [Mass/Vol] 0.65 g/dL Normal 0.61-1.17 [facility] Comment on above: Order Comment: Speci men Type: BLOOD SPECIMENOrdering Facility: [facility] Address: [address] [place] [address] Performed By: #### L [id number] ####[facility] [id number] [place] [address] [place] COMMENT (SERUM PROT ELECTRO) Monoclonal Protein analysis (immunofixation) is not indicated. Normal [facility] Comment on above: Order Comment: Speci men Type: BLOOD SPECIMENOrdering Facility: [facility] Address: [address] [place] [address] Performed By: #### L [id number] ####[facility] [id number] [place] [address] [place] Gamma globulin Elph [Mass/Vol] 1.05 g/dL Normal 0.53-1.51 [facility] Comment on above: Order Comment: Speci men Type: BLOOD SPECIMENOrdering Facility: [facility] Address: [address] [place] [address] Performed By: #### L [id number] ####[facility] [id number] [place] [address] [place] INTERPRETATION COMMENT FOR PROTEIN ELECTROPHORESIS See separate immunofixation report for characterization of monoclonal gammopathy. Normal [facility] Comment on above: Order Comment: Speci men Type: BLOOD SPECIMENOrdering Facility: [facility] Address: [address] [place] [address] Performed By: #### L [id number] ####[facility] [id number] [place] [address] [place] M-PROTEIN LOCATION Gamma Fraction 1 Normal [facility] Comment on above: Order Comment: Speci men Type: BLOOD SPECIMENOrdering Facility: [facility] Address: [address] [place] [address] Performed By: #### L [id number] ####[facility] [id number] [place] [address] [place] Protein Fractions [Interp] An M protein is identified on protein electrophoresis. Abnormal No definitive M protein is identified on protein electrophore sis. [facility] Comment on above: Order Comment: Speci men Type: BLOOD SPECIMENOrdering Facility: [facility] Address: [address] [place] [address] Performed By: #### L [id number] ####[facility] [id number] [place] [address] [place] Protein.monoclonal Elph [Mass/Vol] 0.67 g/dL High <=0.00 [facility] Comment on above: Order Comment: Speci men Type: BLOOD SPECIMENOrdering Facility: [facility] Address: [address] [place] [address] Performed By: #### L [id number] ####[facility] [id number] [place] [address] [place] SPE STAFF REVIEW Reviewed by Dr. Marcel White MD [facility] Comment on above: Order Comment: Speci men Type: BLOOD SPECIMENOrdering Facility: [facility] Address: [address] [place] [address] Performed By: #### L [id number] ####[facility] [id number] [place] [address] [place] Prot SerPl-mCncon 02-26-2024 Protein [Mass/Vol] 6.3 g/dL Normal 6.3-8.0 [facility] Comment on above: Order Comment: Speci men Type: BLOOD SPECIMENOrdering Facility: [facility] Address: [address] [place] [address] Performed By: #### 2 885-2 ####[facility] [id number] [place] [address] [place] Basic metabolic 2000 panelon 11-27-2023 Anion gap [Moles/Vol] 9 mmol/L Normal 9-18 [facility] Comment on above: Order Comment: Speci men Type: BLOOD SPECIMEN Ordering Facility: [facility] Address: [address] Performed By: #### 2 857-1 #### [facility] CLIA [id number] [address] [place] [address] [place] Calcium [Mass/Vol] 9.2 mg/dL Normal 8.5-10.2 [facility] Comment on above: Order Comment: Speci men Type: BLOOD SPECIMEN Ordering Facility: [facility] Address: [address] [place] [address] Performed By: #### 2 857-1 #### [facility] CLIA [id number] [address] [place] [address] [place] Chloride [Moles/Vol] 101 mmol/L Normal 97-105 [facility] Comment on above: Order Comment: Speci men Type: BLOOD SPECIMEN Ordering Facility: [facility] Address: [address] [place] [address] Performed By: #### 2 857-1 #### [facility] CLIA [id number] [address] [place] [address] [place] CO2 [Moles/Vol] 28 mmol/L Normal 22-30 [facility] Comment on above: Order Comment: Speci men Type: BLOOD SPECIMEN [facility]ing Facility: [facility] Address: [address] [place] [address] Performed By: #### 2 857-1 #### [facility] [facility] CLIA [id number] [facility] [place] [address] [place] Creatinine [Mass/Vol] 1.53 mg/dL High 0.73-1.22 [facility] Comment on above: Order Comment: Speci men Type: BLOOD SPECIMEN Ordering Facility: [facility] Address: [address] [place] [address] Performed By: #### 2 857-1 #### [facility] CLIA [id number] [facility] [place] Creatinine and Glomerular filtration rate.predicted panel (S/P/Bld) 47 mL/min/1.73m??? Low >=60 [facility] Comment on above: Order Comment: Speci men Type: BLOOD SPECIMEN Ordering Facility: [facility] Address: [address] [place] [address] Result Comment: Chanda mated Glomerular Filtration Rate (eGFR) is calculated using the 2020 CKD-EPI creatinine equation. This equation utilizes serum creatinine, sex, and age as parameters. The creatinine assay has traceable calibration to isotope dilution-mass spectrometry. Refer to KDIGO guidelines for clinical interpretation. In patients with unstable renal function, e.g. those with acute kidney injury, the eGFR may not accurately reflect actual GFR. Performed By: #### 2 857-1 #### [facility] CLIA [id number] [facility] [place] [address] [place] Glucose [Mass/Vol] 110 mg/dL High 74-99 [facility] Comment on above: Order Comment: Michelle bueno Type: BLOOD SPECIMEN Ordering Facility: [facility] Address: [address] [place] [address] Result Comment: The [place] Diabetes Association (ADA) provides guidance for cutoff values for fasting glucose and random glucose. The ADA defines fasting as no caloric intake for at least 8 hours. Fasting plasma glucose results between 100 to 125 mg/dL indicate increased risk for diabetes (prediabetes). Fasting plasma glucose results greater than or equal to 126 mg/dL meet the criteria for diagnosis of diabetes. In the absence of unequivocal hyperglycemia, results should be confirmed by repeat testing. In a patient with classic symptoms of hyperglycemia or hyperglycemic crisis, random plasma glucose results greater than or equal to 200 mg/dL meet the criteria for diagnosis of diabetes. Reference: Standards of Medical Care in Diabetes 2016, [place] [employer] Association. Diabetes Care. 2016.39(Suppl 1). Performed By: #### 2 857-1 #### [facility] CLIA [id number] [address] [place] [address] [place] Potassium [Moles/Vol] 3.9 mmol/L Normal 3.7-5.1 [facility] Comment on above: Order Comment: Michelle bueno Type: BLOOD SPECIMEN Ordering Facility: [facility] Address: [address] [address] Performed By: #### 2 857-1 #### [facility] CLIA [id number] [address] [place] [address] [place] Sodium [Moles/Vol] 138 mmol/L Normal 136-144 [facility] Comment on above: Order Comment: Michelle bueno Type: BLOOD SPECIMEN Ordering Facility: [facility] Address: [address] [place] [address] Performed By: #### 2 857-1 #### [facility] CLIA [id number] [address] [place] [address] [place] Urea nitrogen [Mass/Vol] 22 mg/dL Normal 9-24 [facility] Comment on above: Order Comment: Speci men Type: BLOOD SPECIMEN Ordering Facility: [facility] Address: [address] [place] [address] Performed By: #### 2 857-1 #### [facility] CLIA [id number] [address] [place] [address] [place] CBC W Auto Differential pane l (Bld)on 11-27-2023 Basophils (Bld) [#/Vol] 0.07 10*3/uL Normal <0.11 [facility] Comment on above: Order Comment: Speci men Type: BLOOD SPECIMEN Ordering Facility: [facility] Address: [address] [place] [address] Performed By: #### 2 857-1 #### [facility] CLIA [id number] [address] [place] [address] [place] Basophils/100 WBC (Bld) 1.7 % Normal [facility] Comment on above: Order Comment: Speci men Type: BLOOD SPECIMEN Ordering Facility: [facility] Address: [address] [place] [address] Performed By: #### 2 857-1 #### [facility] CLIA [id number] [facility] [place] [address] [place] Differential cell count method Nom (Bld) Auto Normal [facility] Comment on above: Order Comment: Speci men Type: BLOOD SPECIMEN Ordering Facility: [facility] Address: [address] [place], [place] [address] Performed By: #### 2 857-1 #### [facility] CLIA [id number] [address] [place] [address] [place] Eosinophils (Bld) [#/Vol] 0.41 10*3/uL Normal <0.46 [facility] Comment on above: Order Comment: Speci men Type: BLOOD SPECIMEN Ordering Facility: [facility] Address: [address] Performed By: #### 2 857-1 #### [facility] CLIA [id number] [address] [place] [address] [place] Eosinophils/100 WBC (Bld) 10.2 % Normal [facility] Comment on above: Order Comment: Speci men Type: BLOOD SPECIMEN Ordering Facility: [facility] Address: [address] Performed By: #### 2 857-1 #### [facility] CLIA [id number] [address] [place] [address] [place] Erythrocyte distribution width (RBC) [Ratio] 17.2 % High 11.5-15.0 [facility] Comment on above: Order Comment: Speci men Type: BLOOD SPECIMEN Ordering Facility: [facility] Address: [address] Performed By: #### 2 857-1 #### [facility] CLIA [id number] [address] [place] [address] [place] Hematocrit (Bld) [Volume fraction] 39.1 % Normal 39.0-51.0 [facility] Comment on above: Order Comment: Speci men Type: BLOOD SPECIMEN Ordering Facility: [facility] Address: [address] Performed By: #### 2 857-1 #### [facility] CLIA [id number] [address] [place] [address] [place] Hemoglobin (Bld) [Mass/Vol] 13.3 g/dL Normal 13.0-17.0 [facility] Comment on above: Order Comment: Speci men Type: BLOOD SPECIMEN Ordering Facility: [facility] Address: [address] [place] [address] Performed By: #### 2 857-1 #### [facility] CLIA [id number] [address] [place] [address] [place] Immature granulocytes (Bld) [#/Vol] 10*3/uL Normal <0.10 [facility] Comment on above: Order Comment: Speci men Type: BLOOD SPECIMEN Ordering Facility: [facility] Address: [address] Performed By: #### 2 857-1 #### [facility] CLIA [id number] [address] [place] Immature granulocytes/100 WBC (Bld) 0.5 % Normal [facility] Comment on above: Order Comment: Speci men Type: BLOOD SPECIMEN Ordering Facility: [facility] Address: [address] Performed By: #### 2 857-1 #### [facility] CLIA [id number] [address] [place] [address] [place] Lymphocytes (Bld) [#/Vol] 1.03 10*3/uL Normal 1.00-4.00 [facility] Comment on above: Order Comment: Speci men Type: BLOOD SPECIMEN Ordering Facility: [facility] Address: [address] Performed By: #### 2 857-1 #### [facility] CLIA [id number] [address] [place] [address] [place] Lymphocytes/100 WBC (Bld) 25.7 % Normal [facility] Comment on above: Order Comment: Speci men Type: BLOOD SPECIMEN Ordering Facility: [facility] Address: [address] Performed By: #### 2 857-1 #### [facility] CLIA [id number] [address] [place] [address] [place] MCH (RBC) [Entitic mass] 35.5 pg High 26.0-34.0 [facility] Comment on above: Order Comment: Speci men Type: BLOOD SPECIMEN Ordering Facility: [facility] Address: [address] [place], [place] [address] Performed By: #### 2 857-1 #### [facility] CLIA [id number] [address] [place] [address] [place] MCHC (RBC) [Mass/Vol] 34.0 g/dL Normal 30.5-36.0 [facility] Comment on above: Order Comment: Speci men Type: BLOOD SPECIMEN Ordering Facility: [facility] Address: [address] [place], [place] [address] Performed By: #### 2 857-1 #### [facility] CLIA [id number] [facility] [address] [place] MCV (RBC) [Entitic vol] 104.3 fL High 80.0-100.0 [facility] Comment on above: Order Comment: Speci men Type: BLOOD SPECIMEN Ordering Facility: [facility] Address: [address] [place], [place] [address] Performed By: #### 2 857-1 #### [facility] CLIA [id number] [address] [place] [address] [place] Monocytes (Bld) [#/Vol] 0.42 10*3/uL Normal <0.87 [facility] Comment on above: Order Comment: Speci men Type: BLOOD SPECIMEN Ordering Facility: [facility] Address: [address] [place], [place] [address] Performed By: #### 2 857-1 #### [facility] CLIA [id number] [address] [place] Monocytes/100 WBC (Bld) 10.5 % Normal [facility] Comment on above: Order Comment: Speci men Type: BLOOD SPECIMEN Ordering Facility: [facility] Address: [address] Performed By: #### 2 857-1 #### [facility] CLIA [id number] [address] [place] [address] [place] Neutrophils (Bld) [#/Vol] 2.06 10*3/uL Normal 1.45-7.50 [facility] Comment on above: Order Comment: Speci men Type: BLOOD SPECIMEN Ordering Facility: [facility] Address: [address] Performed By: #### 2 857-1 #### [facility] CLIA [id number] [address] [place] [address] [place] Neutrophils/100 WBC (Bld) 51.4 % Normal [facility] Comment on above: Order Comment: Speci men Type: BLOOD SPECIMEN Ordering Facility: [facility] Address: [address] Performed By: #### 2 857-1 #### [facility] CLIA [id number] [address] [place] [address] [place] Nucleated RBC (Bld) [#/Vol] 10*3/uL Normal <0.01 [facility] Comment on above: Order Comment: Speci men Type: BLOOD SPECIMEN Ordering Facility: [facility] Address: [address] Performed By: #### 2 857-1 #### [facility] CLIA [id number] [address] [place] [address] [place] Nucleated RBC/100 WBC (Bld) [Ratio] 0.0 /100 WBC Normal [facility] Comment on above: Order Comment: Speci men Type: BLOOD SPECIMEN Ordering Facility: [facility] Address: [address] Performed By: #### 2 857-1 #### [facility] CLIA [id number] [address] [place] [address] [place] Platelet mean volume (Bld) [Entitic vol] 10.2 fL Normal 9.0-12.7 [facility] Comment on above: Order Comment: Speci men Type: BLOOD SPECIMEN Ordering Facility: [facility] Address: [address] [place], [place] [address] Performed By: #### 2 857-1 #### [facility] CLIA [id number] [address] [place] [address] [place] Platelets (Bld) [#/Vol] 203 10*3/uL Normal 150-400 [facility] Comment on above: Order Comment: Speci men Type: BLOOD SPECIMEN Ordering Facility: [facility] Address: [address] [place], [place] [address] Performed By: #### 2 857-1 #### [facility] CLIA [id number] [address] [place] [address] [place] RBC (Bld) [#/Vol] 3.75 10*6/uL Low 4.20-6.00 [facility] Comment on above: Order Comment: Speci men Type: BLOOD SPECIMEN Ordering Facility: [facility] Address: [address] [place], [place] [address] Performed By: #### 2 857-1 #### [facility] CLIA [id number] [address] [place] [address] [place] WBC (Bld) [#/Vol] 4.01 10*3/uL Normal 3.70-11.00 [facility] Comment on above: Order Comment: Speci men Type: BLOOD SPECIMEN Ordering Facility: [facility] Address: [address] [place], [place] [address] Performed By: #### 2 857-1 #### [facility] CLIA [id number] [address] [place] [address] [place] CNOVSPon 11-27-2023 CNOVSP Visit (SP) Office (H EMASA) ZACH MANUEL ([id number]) 1945 M Date Time Provider Department 11/27/23 1:00 PM CLAUDIA WILSON During your visit today, we recorded the following information about you: Temperature Pulse Respiration Blood pressure 97.9 degrees 65/minute 18/minute 154/51 Weight Height 87.7 kg 1.753 m Claudia Wilson APRN.UNIT RECEPTIONIST 12/05/2023 11:23 AM Signed PATIENT NAME: Zach Manuel DATE: 11/27/2023 PRIMARY CARE PHYSICIAN: Dr. Hanna Mathias OTHER PHYSICIANS: Dr. Lewis, Dr. Martinez Portions of this encounter note have been copied from the note from 08/28/2023 and has been updated where appropriate, and reflect my current medical decision making from today. CC: This is a 78 year old male with a history of multiple myeloma, seen for scheduled follow-up. INTERIM HISTORY: Zach Manuel returns for follow-up. He remains on Revlimid 5 mg daily 3 weeks on and 1 week off. He is tolerating the Revlimid well. He also remains on Decadron 8 mg once a week. Since his last visit there has been no significant medical changes. He denies any unusual pain. No fevers, chills, night sweats or signs/symptoms of infection. No bleeding or abnormal bruising. He offers no new complaints today. MEDICATIONS: lenalidomide (REVLIMID) 5 mg capsule Take 1 capsule by mouth daily for 21 days on and 7 days off. dexAMETHasone (DECADRON) 4 mg tablet TAKE 2 TABLETS BY MOUTH ONCE A WEEK glyBURIDE micronized (GLYNASE) 6 mg tablet JARDIANCE 10 mg tablet Take 10 mg by mouth once daily. DEXILANT 60 mg CpDM Take 1 capsule by mouth once daily. liothyronine (CYTOMEL) 5 mcg tablet metroNIDAZOLE (FLAGYL) 500 mg tablet vancomycin (VANCOCIN) 250 mg capsule pioglitazone (ACTOS) 30 mg tablet tobramycin-dexamethasone (TOBRADEX) ophthalmic suspension INSTILL 2 DROPS INTO AFFECTED EYE 4 TIMES DAILY wtwvuqtq-pkytvanel-sfrbixyr tisone (CORTISPORIN) otic solution INSTILL 3 4 DROPS IN AFFECTED EAR FOUR TIMES DAILY pantoprazole DR (PROTONIX) 40 mg tablet Take 40 mg by mouth once daily. BREO ELLIPTA 100-25 mcg/dose inhaler 1 Inhalation once daily. fenofibrate nanocrystallized (TRICOR) 145 mg tablet Take 145 mg by mouth once daily. oxyCODONE IR (ROXICODONE) 10 mg tab 10 mg as needed. levothyroxine (SYNTHROID) 50 mcg tablet Take 50 mcg by mouth once daily. MELOXICAM 15 mg tablet Take 15 mg by mouth as needed. GLUCOPHAGE 500 MG TAB Take 1,000 mg by mouth daily with breakfast. 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 HEENT: Negative for frequent or significant headaches. No changes in hearing or vision, no nose bleeds or other nasal problems. Respiratory: Negative for cough, wheezing or shortness of breath. Cardiovascular: Negative for chest pain, leg swelling or palpitations. GI: Negative for abdominal discomfort, blood in stools or black stools or change in bowel habits. : No history of dysuria, frequency or incontinence. Musculoskeletal: Right leg pain status post fracture- persistent. Skin: Negative for lesions, rash and itching. Hematology/Lymphology: Negative for prolonged bleeding, bruising easily or swollen nodes. Neuro: No history of headaches, syncope, paralysis, seizures or tremors. PHYSICAL EXAM: Vitals: BP 154/51 Pulse 65 Temp 36.6 ?C (97.9 ?F) (Temporal) Resp 18 Ht 175.3 cm (5' 9.02 ) Wt 87.7 kg (193 lb 5.5 oz) SpO2 97% BMI 28.54 kg/m? ECOG 0 Exam limited to gross visualization where appropriate due to COVID-19. Gen.: This is an age-appropriate patient in no acute distress. Head: Appears atraumatic with no visible lesions. Eyes: Pupils equally round and reactive to light, extraocular muscles are intact. Neck: Supple. Mouth: Mucous membranes appeared to be moist. Respiratory: Appears to be respiring comfortably. Neurologic: Nonfocal to gross visualization. Alert and oriented ?3. Psychiatric: No evidence of inappropriate anxiety or depression. Skin: Visible areas of skin without rash, lesions, wounds or petechiae. PATHOLOGY: 05/07/2020 Prostate biopsy ([facility]) FINAL DIAGNOSIS 1. Prostate, left base, core b (more content not included)... Normal [facility] IMMUNOFIXATION SCREEN, SERUM on 11-27-2023 INTERPRETATION (MPA) Atypical restricted bands are present in the IgG and kappa regions. Consistent with IgG kappa monoclonal gammopathy. Normal [facility] Comment on above: Order Comment: Speci men Type: BLOOD SPECIMENOrdering Facility: [facility] Address: [address] [place] [address] Performed By: #### I FESC ####[facility] [id number] [place] [address] [place] MPA RESULT M protein is present. Abnormal No M p rotein is identified. [facility] Comment on above: Order Comment: Speci men Type: BLOOD SPECIMENOrdering Facility: [facility] Address: [address] [place] [address] Performed By: #### I FESC ####[facility] [id number] [place] [address] [place] STAFF REVIEW (MPA) Reviewed by Andrew dailey M.D. Normal [facility] Comment on above: Order Comment: Speci men Type: BLOOD SPECIMENOrdering Facility: [facility] Address: [address] [place] [address] Performed By: #### I FES ####[facility] [id number] [place] [address] [place] IMMUNOGLOBULINS GAMon 2023 IgA [Mass/Vol] 73 mg/dL Normal 70-400 [facility] Comment on above: Order Comment: Speci men Type: BLOOD SPECIMEN Ordering Facility: [facility] Address: [address] [address] Performed By: #### 2 857-1 #### [facility] CLIA [id number] [address] [place] [address] [place] IgG [Mass/Vol] 1034 mg/dL Normal 700-1600 [facility] Comment on above: Order Comment: Speci men Type: BLOOD SPECIMEN Ordering Facility: [facility] Address: [address] [address] Performed By: #### 2 857-1 #### [facility] CLIA [id number] [address] [place] [address] [place] IgM [Mass/Vol] 17 mg/dL Low 40-230 [facility] Comment on above: Order Comment: Speci men Type: BLOOD SPECIMEN Ordering Facility: [facility] Address: [address] [address] Performed By: #### 2 857-1 #### [facility] CLIA [id number] [address] [place] [address] [place] KAPPA/DANIELS,FREE,SERon 2023 Immunoglobulin light chains.kappa.free (S) [Mass/Vol] 34.8 mg/L High 3.3-19.4 [facility] Comment on above: Order Comment: Speci men Type: BLOOD SPECIMENOrdering Facility: [facility] Address: [address] [place] [address] Result Comment: Rare ly, increased serum free light chains levels may not be detected or accurately quantified due to prozone phenomenon or in high viscosity samples using this immunoturbidimetric assay. Correlation with other laboratory results and clinical findings is recommended. The [place] Free Light Chain was performed using the Binding Site Optilite immunoturbidimetric method. Result obtained with different assay methods or kits cannot be used interchangeably. Performed By: #### K LFRS ####[facility] [id number] [place] [address] [place] Immunoglobulin light chains.kappa/Immun oglobulin light chains.lambda (S) [Mass ratio] 1.69 High 0.26-1.65 [facility] Comment on above: Order Comment: Speci men Type: BLOOD SPECIMENOrdering Facility: [facility] Address: [address] [place] [address] Performed By: #### K LFRS ####[facility] [id number] [address] Immunoglobulin light chains.lambda.free [Mass/Vol] 20.6 mg/L Normal 5.7-26.3 [facility] Comment on above: Order Comment: Speci men Type: BLOOD SPECIMENOrdering Facility: [facility] Address: [address] [place] [address] Result Comment: Rare ly, increased serum free light chains levels may not be detected or accurately quantified due to prozone phenomenon or in high viscosity samples using this immunoturbidimetric assay. Correlation with other laboratory results and clinical findings is recommended. The Lambda Free Light Chain was performed using the Binding Site Optilite immunoturbidimetric method. Result obtained with different assay methods or kits cannot be used interchangeably. Performed By: #### K LFRS ####[facility] [id number] [place] [address] [place] PROTEIN ELECTROPHORESIS SERU M WITH TOÑITO (P)on 11-27-2023 Albumin [Mass/Vol] 3.89 g/dL Normal 3.43-5.41 [facility] Comment on above: Order Comment: Speci men Type: BLOOD SPECIMENOrdering Facility: [facility] Address: [address] [place] [address] Performed By: #### L [id number] ####[facility] [id number] [place] [address] [place] Alpha 1 globulin Elph [Mass/Vol] 0.19 g/dL Normal 0.18-0.43 [facility] Comment on above: Order Comment: Speci men Type: BLOOD SPECIMENOrdering Facility: [facility] Address: [address] [place] [address] Performed By: #### L [id number] ####[facility] [id number] [place] [address] [place] Alpha 2 globulin Elph [Mass/Vol] 0.60 g/dL Normal 0.42-0.98 [facility] Comment on above: Order Comment: Speci men Type: BLOOD SPECIMENOrdering Facility: [facility] Address: [address] [place] [address] Performed By: #### L [id number] ####[facility] [id number] [place] [address] [place] Beta globulin Elph [Mass/Vol] 0.65 g/dL Normal 0.61-1.17 [facility] Comment on above: Order Comment: Speci men Type: BLOOD SPECIMENOrdering Facility: [facility] Address: [address] [place] [address] Performed By: #### L [id number] ####[facility] LABCLIA [id number] [place] [address] [place] COMMENT (SERUM PROT ELECTRO) Monoclonal Protein analysis (immunofixation) is not indicated. Normal [facility] Comment on above: Order Comment: Speci men Type: BLOOD SPECIMENOrdering Facility: [facility] Address: [address] [place] [address] Performed By: #### L [id number] ####[facility] LABCLIA [id number] [place] [address] [place] Gamma globulin Elph [Mass/Vol] 0.86 g/dL Normal 0.53-1.51 [facility] Comment on above: Order Comment: Speci men Type: BLOOD SPECIMENOrdering Facility: [facility] Address: [address] [place] [address] Performed By: #### L [id number] ####[facility] LABIA [id number] [place] [address] [place] INTERPRETATION COMMENT FOR PROTEIN ELECTROPHORESIS See separate immunofixation report for characterization of monoclonal gammopathy. Normal [facility] Comment on above: Order Comment: Speci men Type: BLOOD SPECIMENOrdering Facility: [facility] Address: [address] [place] [address] Performed By: #### L [id number] ####[facility]ITAL[facility] [id number] [address] [place] M-PROTEIN LOCATION Gamma Fraction 1 Normal [facility] Comment on above: Order Comment: Speci men Type: BLOOD SPECIMENOrdering Facility: [facility] Address: [address] [place] [address] Performed By: #### L [id number] ####[facility] LABIA [id number] [place] [address] [place] Protein Fractions [Interp] An M protein is identified on protein electrophoresis. Abnormal No definitive M protein is identified on protein electrophore sis. [facility] Comment on above: Order Comment: Speci men Type: BLOOD SPECIMENOrdering Facility: [facility] Address: [address] [place] [address] Performed By: #### L [id number] ####[facility] LABIA [id number] [place] [address] [place] Protein.monoclonal Elph [Mass/Vol] 0.60 g/dL High <=0.00 [facility] Comment on above: Order Comment: Speci men Type: BLOOD SPECIMENOrdering Facility: [facility] Address: [address] [place] [address] Performed By: #### L [id number] ####[facility] LABIA [id number] [address] [place] SPE STAFF REVIEW Reviewed by Andrew dailey M.D. [facility] Comment on above: Order Comment: Speci men Type: BLOOD SPECIMENOrdering Facility: [facility] Address: [address] [place] [address] Performed By: #### L [id number] ####[facility] LABIA [id number] [place] [address] [place] Prot SerPl-mCncon 11-27-2023 Protein [Mass/Vol] 6.2 g/dL Low 6.3-8.0 [facility] Comment on above: Order Comment: Speci men Type: BLOOD SPECIMENOrdering Facility: [facility] Address: [address] [place] [address] Performed By: #### 2 885-2 ####[facility] LABIA [id number] [address] [place] Bree 11-23-2023 ESTELLA Telephone (HEMCHRISTINA) ZACH MANUEL ([id number]) 1945 M Date Time Provider Department 11/23/23 URIEL GUNTER During your visit today, we recorded the following information about you: Monica Baptiste 11/23/2023 11:57 AM Signed Patient has an appt on 11/26. Would you like labs? Allergies As of Date: 11/23/2023 Noted Allergy Reaction AZITHROMYCIN 07/12/2018 16 - Unknown ERTHROMYCIN (ERYTHROMYCIN) 12/05/2016 16 - Unknown SULFA (SULFONAMIDE ANTIBIOTICS) 09/19/2012 16 - Unknown TOBRAMYCIN 03/08/2020 14 - Other: See Comments Comments: made condition worse Date Reviewed: 08/28/2023 Reviewed by: Karmen Hernandez RN - Fully Assessed Reason for Visit: Lab Orders [3648] Primary Visit Diagnosis:Multiple myeloma not having achieved remission (HCC) [C90.00] Order(s):CBC + DIFF [SQCBCDIF] Order #: [id number] FUTURE BASIC METABOLIC PNL [SQBMP] Order #: [id number] FUTURE PROT ELECT SERUM WITH TOÑITO AND INTERP [SQSEPGRX] Order #: [id number] FUTURE MONOCLONAL PROTEIN, SERUM (BLOOD) [SQSERMPA] Order #: [id number] FUTURE Prescriptions as of 11/26/2023 - lenalidomide (REVLIMID) 5 mg capsule Take 1 capsule by mouth daily for 21 days on and 7 days off. - dexAMETHasone (DECADRON) 4 mg tablet TAKE 2 TABLETS BY MOUTH ONCE A WEEK - glyBURIDE micronized (GLYNASE) 6 mg tablet - JARDIANCE 10 mg tablet Take 10 mg by mouth once daily. - DEXILANT 60 mg CpDM Take 1 capsule by mouth once daily. - liothyronine (CYTOMEL) 5 mcg tablet - metroNIDAZOLE (FLAGYL) 500 mg tablet - vancomycin (VANCOCIN) 250 mg capsule - pioglitazone (ACTOS) 30 mg tablet - tobramycin-dexamethasone (TOBRADEX) ophthalmic suspension INSTILL 2 DROPS INTO AFFECTED EYE 4 TIMES DAILY - jqqsyfcv-gcthsdirn-avmrcfgf tisone (CORTISPORIN) otic solution INSTILL 3 4 DROPS IN AFFECTED EAR FOUR TIMES DAILY - pantoprazole DR (PROTONIX) 40 mg tablet Take 40 mg by mouth once daily. - BREO ELLIPTA 100-25 mcg/dose inhaler 1 Inhalation once daily. - fenofibrate nanocrystallized (TRICOR) 145 mg tablet Take 145 mg by mouth once daily. - oxyCODONE IR (ROXICODONE) 10 mg tab 10 mg as needed. - levothyroxine (SYNTHROID) 50 mcg tablet Take 50 mcg by mouth once daily. - MELOXICAM 15 mg tablet Take 15 mg by mouth as needed. - GLUCOPHAGE 500 MG TAB Take 1,000 mg by mouth daily with breakfast. 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] 10/20/2015 Perirectal skin irritation [K62.89] 10/20/2015 Anal bleeding [K62.5] 10/20/2015 Type 2 diabetes mellitus without complication (*10/20/2015 [employer] current use of systemic steroids [Z79*10/20/2015 Left inguinal hernia [K40.90] 10/20/2015 Former smoker [Z87.891] 10/20/2015 Elevated prostate specific antigen (PSA) [R97.2*03/19/2020 Stage 3 chronic kidney disease, unspecified whe*03/06/2023 Encounter Status:Closed by URIEL GUNTER on 11/26/23 Normal [facility] Basic metabolic 2000 panelon 08-28-2023 Anion gap [Moles/Vol] 9 mmol/L 9 - 18 mmol/L [facility] Calcium [Mass/Vol] 9.0 mg/dL 8.5 - 10. 2 mg/dL [facility] Chloride [Moles/Vol] 102 mmol/L 97 - 105 mmol/L [facility] CO2 [Moles/Vol] 27 mmol/L 22 - 30 mmol/L [facility] Creatinine [Mass/Vol] 1.52 mg/dL High 0.73 - 1.22 mg/dL [facility] Estimated Glomerular Filtration Rate 47 mL/min/1.73m Low >=60 mL/min/1.73m [facility] Glucose [Mass/Vol] 253 mg/dL High 74 - 99 mg/dL [facility] Potassium [Moles/Vol] 4.5 mmol/L 3.7 - 5.1 mmol/L [facility] Sodium [Moles/Vol] 138 mmol/L 136 - 144 mmol/L [facility] Urea nitrogen [Mass/Vol] 29 mg/dL High 9 - 24 mg/dL [facility] Anion gap [Moles/Vol] 9 mmol/L Normal 9-18 [facility] Comment on above: Order Comment: Speci men Type: BLOOD SPECIMENOrdering Facility: [facility] Address: [address] [place] [address] Performed By: #### 2 4321-2 ####[facility] LABCLIA [id number] [place] [address] Calcium [Mass/Vol] 9.0 mg/dL Normal 8.5-10.2 [facility] Comment on above: Order Comment: Speci men Type: BLOOD SPECIMENOrdering Facility: [facility] Address: [address] [place] [address] Performed By: #### 2 4321-2 ####[facility] LABCLIA [id number] [place] [address] Chloride [Moles/Vol] 102 mmol/L Normal 97-105 [facility] Comment on above: Order Comment: Speci men Type: BLOOD SPECIMENOrdering Facility: [facility] Address: [address] [place] [address] Performed By: #### 2 4321-2 ####[facility] LABCLIA [id number] [place] [address] CO2 [Moles/Vol] 27 mmol/L Normal 22-30 [facility] Comment on above: Order Comment: Speci men Type: BLOOD SPECIMENOrdering Facility: [facility] Address: [address] [place] [address] Performed By: #### 2 4321-2 ####[facility] LABCLIA [id number] [place] [address] Creatinine [Mass/Vol] 1.52 mg/dL High 0.73-1.22 [facility] Comment on above: Order Comment: Speci men Type: BLOOD SPECIMENOrdering Facility: [facility] Address: [address] [place] [address] Performed By: #### 2 4321-2 ####[facility] LABCLIA [id number] [place] [address] Creatinine and Glomerular filtration rate.predicted panel (S/P/Bld) 47 mL/min/1.73m??? Low >=60 [facility] Comment on above: Order Comment: Michelle bueno Type: BLOOD SPECIMENOrdering Facility: [facility] Address: [address] [place] [address] Result Comment: Chanda mated Glomerular Filtration Rate (eGFR) is calculated using the 2020 CKD-EPI creatinine equation. This equation utilizes serum creatinine, sex, and age as parameters. The creatinine assay has traceable calibration to isotope dilution-mass spectrometry. Refer to KDIGO guidelines for clinical interpretation. In patients with unstable renal function, e.g. those with acute kidney injury, the eGFR may not accurately reflect actual GFR. Performed By: #### 2 4321-2 ####[facility] LABIA [id number] [place] [address] Glucose [Mass/Vol] 253 mg/dL High 74-99 [facility] Comment on above: Order Comment: Speci myles Type: BLOOD SPECIMENOrdering Facility: [facility] Address: [address] [place] [address] Result Comment: The [place] [employer] (ADA) provides guidance for cutoff values for fasting glucose and random glucose. The ADA defines fasting as no caloric intake for at least 8 hours. Fasting plasma glucose results between 100 to 125 mg/dL indicate increased risk for diabetes (prediabetes). Fasting plasma glucose results greater than or equal to 126 mg/dL meet the criteria for diagnosis of diabetes. In the absence of unequivocal hyperglycemia, results should be confirmed by repeat testing. In a patient with classic symptoms of hyperglycemia or hyperglycemic crisis, random plasma glucose results greater than or equal to 200 mg/dL meet the criteria for diagnosis of diabetes. Reference: Standards of Medical Care in Diabetes 2016, [place] [employer]. Diabetes Care. 2016.39(Suppl 1). Performed By: #### 2 4321-2 ####[facility] LABIA [id number] [place] [address] Potassium [Moles/Vol] 4.5 mmol/L Normal 3.7-5.1 [facility] Comment on above: Order Comment: Speci men Type: BLOOD SPECIMENOrdering Facility: [facility] Address: [address] [place] [address] Performed By: #### 2 4321-2 ####[facility] LABCLIA [id number] [place] [address] Sodium [Moles/Vol] 138 mmol/L Normal 136-144 [facility] Comment on above: Order Comment: Speci men Type: BLOOD SPECIMENOrdering Facility: [facility] Address: [address] [place] [address] Performed By: #### 2 4321-2 ####[facility] LABCLIA [id number] [place] [address] Urea nitrogen [Mass/Vol] 29 mg/dL High 9-24 [facility] Comment on above: Order Comment: Speci men Type: BLOOD SPECIMENOrdering Facility: [facility] Address: [address] [place] [address] Performed By: #### 2 4321-2 ####[facility] LABCLIA [id number] [place] [address] CBC W Auto Differential pane l (Bld)on 08-28-2023 Basophils (Bld) [#/Vol] 0.05 10*3/uL <0.11 k/uL [facility] Basophils/100 WBC (Bld) 0.7 % [facility] Differential cell count method Nom (Bld) Auto [facility] Eosinophils (Bld) [#/Vol] 0.07 10*3/uL <0.46 k/uL [facility] Eosinophils/100 WBC (Bld) 1.0 % [facility] Erythrocyte distribution width (RBC) [Ratio] 14.0 % 11.5 - 15.0 % [facility] Hematocrit (Bld) [Volume fraction] 39.5 % 39.0 - 51.0 % [facility] Hemoglobin (Bld) [Mass/Vol] 13.7 g/dL 13.0 - 17.0 g/dL [facility] Immature granulocytes (Bld) [#/Vol] 0.03 10*3/uL <0.10 k/uL [facility] Immature granulocytes/100 WBC (Bld) 0.4 % [facility] Lymphocytes (Bld) [#/Vol] 0.82 10*3/uL Low 1.00 - 4.00 k/uL [facility] Lymphocytes/100 WBC (Bld) 11.7 % [facility] MCH (RBC) [Entitic mass] 34.7 pg High 26.0 - 34.0 pg [facility] MCHC (RBC) [Mass/Vol] 34.7 g/dL 30.5 - 36.0 g/dL [facility] MCV (RBC) [Entitic vol] 100.0 fL 80.0 - 100.0 fL [facility] Monocytes (Bld) [#/Vol] 1.05 10*3/uL High <0.87 k/uL [facility] Monocytes/100 WBC (Bld) 15.0 % [facility] Neutrophils (Bld) [#/Vol] 4.96 10*3/uL 1.45 - 7.50 k/uL [facility] Neutrophils/100 WBC (Bld) 71.2 % [facility] Nucleated RBC (Bld) [#/Vol] <0.01 k/uL [facility] Nucleated RBC/100 WBC (Bld) [Ratio] 0.0 /100 WBC [facility] Platelet mean volume (Bld) [Entitic vol] 9.8 fL 9.0 - 12.7 fL [facility] Platelets (Bld) [#/Vol] 207 10*3/uL 150 - 400 k/uL [facility] RBC (Bld) [#/Vol] 3.95 10*6/uL Low 4.20 - 6.0 0 m/uL [facility] WBC (Bld) [#/Vol] 6.98 10*3/uL 3.70 - 11. 00 k/uL [facility] Basophils (Bld) [#/Vol] 0.05 10*3/uL Normal <0.11 [facility] Comment on above: Order Comment: Speci men Type: BLOOD SPECIMENOrdering Facility: [facility] Address: [address] [place] [address] Performed By: #### 5 7021-8 ####[facility] LABCLIA [id number] [place] [address] Basophils/100 WBC (Bld) 0.7 % Normal [facility] Comment on above: Order Comment: Speci men Type: BLOOD SPECIMENOrdering Facility: [facility] Address: [address] [place] [address] Performed By: #### 5 7021-8 ####[facility] LABCLIA [id number] [place] [address] Differential cell count method Nom (Bld) Auto Normal [facility] Comment on above: Order Comment: Speci men Type: BLOOD SPECIMENOrdering Facility: [facility] Address: [address] [place] [address] Performed By: #### 5 7021-8 ####[facility] LABCLIA [id number] [place] [address] Eosinophils (Bld) [#/Vol] 0.07 10*3/uL Normal <0.46 [facility] Comment on above: Order Comment: Speci men Type: BLOOD SPECIMENOrdering Facility: [facility] Address: [address] [place] [address] Performed By: #### 5 7021-8 ####[facility] LABCLIA [id number] [place] [address] Eosinophils/100 WBC (Bld) 1.0 % Normal [facility] Comment on above: Order Comment: Speci men Type: BLOOD SPECIMENOrdering Facility: [facility] Address: [address] [place] [address] Performed By: #### 5 7021-8 ####[facility] LABCLIA [id number] [place] [address] Erythrocyte distribution width (RBC) [Ratio] 14.0 % Normal 11.5-15.0 [facility] Comment on above: Order Comment: Speci men Type: BLOOD SPECIMENOrdering Facility: [facility] Address: [address] [place] [address] Performed By: #### 5 7021-8 ####[facility] LABCLIA [id number] [place] [address] Hematocrit (Bld) [Volume fraction] 39.5 % Normal 39.0-51.0 [facility] Comment on above: Order Comment: Speci men Type: BLOOD SPECIMENOrdering Facility: [facility] Address: [address] [place] [address] Performed By: #### 5 7021-8 ####[facility] LABCLIA [id number] [place] [address] Hemoglobin (Bld) [Mass/Vol] 13.7 g/dL Normal 13.0-17.0 [facility] Comment on above: Order Comment: Speci men Type: BLOOD SPECIMENOrdering Facility: [facility] Address: [address] [place] [address] Performed By: #### 5 7021-8 ####[facility] LABCLIA [id number] [place] [address] Immature granulocytes (Bld) [#/Vol] 0.03 10*3/uL Normal <0.10 [facility] Comment on above: Order Comment: Speci men Type: BLOOD SPECIMENOrdering Facility: [facility] Address: [address] [place] [address] Performed By: #### 5 7021-8 ####[facility] LABCLIA [id number] [place] [address] Immature granulocytes/100 WBC (Bld) 0.4 % Normal [facility] Comment on above: Order Comment: Speci men Type: BLOOD SPECIMENOrdering Facility: [facility] Address: [address] [place] [address] Performed By: #### 5 7021-8 ####[facility] LABCLIA [id number] [place] [address] Lymphocytes (Bld) [#/Vol] 0.82 10*3/uL Low 1.00-4.00 [facility] Comment on above: Order Comment: Speci men Type: BLOOD SPECIMENOrdering Facility: [facility] Address: [address] [place] [address] Performed By: #### 5 7021-8 ####[facility] LABCLIA [id number] [place] [address] Lymphocytes/100 WBC (Bld) 11.7 % Normal [facility] Comment on above: Order Comment: Speci men Type: BLOOD SPECIMENOrdering Facility: [facility] Address: [address] [place] [address] Performed By: #### 5 7021-8 ####[facility] LABCLIA [id number] [place] [address] MCH (RBC) [Entitic mass] 34.7 pg High 26.0-34.0 [facility] Comment on above: Order Comment: Speci men Type: BLOOD SPECIMENOrdering Facility: [facility] Address: [address] [place] [address] Performed By: #### 5 7021-8 ####[facility] LABCLIA [id number] [place] [address] MCHC (RBC) [Mass/Vol] 34.7 g/dL Normal 30.5-36.0 [facility] Comment on above: Order Comment: Speci men Type: BLOOD SPECIMENOrdering Facility: [facility] Address: [address] [place] [address] Performed By: #### 5 7021-8 ####[facility] LABCLIA [id number] [place] [address] MCV (RBC) [Entitic vol] 100.0 fL Normal 80.0-100.0 [facility] Comment on above: Order Comment: Speci men Type: BLOOD SPECIMENOrdering Facility: [facility] Address: [address] [place] [address] Performed By: #### 5 7021-8 ####[facility] LABCLIA [id number] [place] [address] Monocytes (Bld) [#/Vol] 1.05 10*3/uL High <0.87 [facility] Comment on above: Order Comment: Speci men Type: BLOOD SPECIMENOrdering Facility: [facility] Address: [address] [place] [address] Performed By: #### 5 7021-8 ####[facility] LABCLIA [id number] [place] [address] Monocytes/100 WBC (Bld) 15.0 % Normal [facility] Comment on above: Order Comment: Speci men Type: BLOOD SPECIMENOrdering Facility: [facility] Address: [address] [place] [address] Performed By: #### 5 7021-8 ####[facility] LABCLIA [id number] [place] [address] Neutrophils (Bld) [#/Vol] 4.96 10*3/uL Normal 1.45-7.50 [facility] Comment on above: Order Comment: Speci men Type: BLOOD SPECIMENOrdering Facility: [facility] Address: [address] [place] [address] Performed By: #### 5 7021-8 ####[facility] LABCLIA [id number] [place] [address] Neutrophils/100 WBC (Bld) 71.2 % Normal [facility] Comment on above: Order Comment: Speci men Type: BLOOD SPECIMENOrdering Facility: [facility] Address: [address] [place] [address] Performed By: #### 5 7021-8 ####[facility] LABCLIA [id number] [place] [address] Nucleated RBC (Bld) [#/Vol] 10*3/uL Normal <0.01 [facility] Comment on above: Order Comment: Speci men Type: BLOOD SPECIMENOrdering Facility: [facility] Address: [address] [place] [address] Performed By: #### 5 7021-8 ####[facility] LABCLIA [id number] [place] [address] Nucleated RBC/100 WBC (Bld) [Ratio] 0.0 /100 WBC Normal [facility] Comment on above: Order Comment: Speci men Type: BLOOD SPECIMENOrdering Facility: [facility] Address: [address] [place] [address] Performed By: #### 5 7021-8 ####[facility] LABCLIA [id number] [place] [address] Platelet mean volume (Bld) [Entitic vol] 9.8 fL Normal 9.0-12.7 [facility] Comment on above: Order Comment: Speci men Type: BLOOD SPECIMENOrdering Facility: [facility] Address: [address] [place] [address] Performed By: #### 5 7021-8 ####[facility] LABCLIA [id number] [place] [address] Platelets (Bld) [#/Vol] 207 10*3/uL Normal 150-400 [facility] Comment on above: Order Comment: Speci men Type: BLOOD SPECIMENOrdering Facility: [facility] Address: [address] [place] [address] Performed By: #### 5 7021-8 ####[facility] LABCLIA [id number] [place] [address] RBC (Bld) [#/Vol] 3.95 10*6/uL Low 4.20-6.00 [facility] Comment on above: Order Comment: Speci men Type: BLOOD SPECIMENOrdering Facility: [facility] Address: [address] [place] [address] Performed By: #### 5 7021-8 ####[facility] LABCLIA [id number] [place] [address] WBC (Bld) [#/Vol] 6.98 10*3/uL Normal 3.70-11.00 [facility] Comment on above: Order Comment: Speci men Type: BLOOD SPECIMENOrdering Facility: [facility] Address: [place] [address] Performed By: #### 5 7021-8 ####[facility] LABIA [id number] [place] [address] CNOVSPon 08-28-2023 CNOVSP Visit (SP) Office (H EMASA) ZACH MANUEL ([id number]) 1945 M Date Time Provider Department 08/28/23 1:15 PM URIEL GUNTER During your visit today, we recorded the following information about you: Temperature Pulse Respiration Blood pressure 97.2 degrees 62/minute 20/minute 119/68 Weight Height 86.3 kg 1.753 m Uriel Gunter MD 08/29/2023 6:21 AM Signed PATIENT NAME: Zach Manuel DATE: 08/28/2023 PRIMARY CARE PHYSICIAN: Dr. Hanna Mathias OTHER PHYSICIANS: Dr. Lewis, Dr. Martinez Portions of this encounter note have been copied from the note from 05/29/2023 and has been updated where appropriate, and reflect my current medical decision making from today. CC: This is a 78 year old male with a history of multiple myeloma, seen for scheduled follow-up. INTERIM HISTORY: Since the patient's last visit here he underwent a tooth extraction in June and has healed well. No ongoing dental problems. Otherwise he has had no significant medical changes. No unusual bone pain or other systemic symptoms. He has remained on treatment with Revlimid 5 mg daily 21 days on and 7 days off plus Decadron 8 mg weekly. He is tolerating the treatment quite well. MEDICATIONS: lenalidomide (REVLIMID) 5 mg capsule Take 1 capsule by mouth daily for 21 days on and 7 days off. glyBURIDE micronized (GLYNASE) 6 mg tablet dexAMETHasone (DECADRON) 4 mg tablet TAKE 2 TABLETS BY MOUTH ONCE A WEEK JARDIANCE 10 mg tablet Take 10 mg by mouth once daily. DEXILANT 60 mg CpDM Take 1 capsule by mouth once daily. liothyronine (CYTOMEL) 5 mcg tablet metroNIDAZOLE (FLAGYL) 500 mg tablet vancomycin (VANCOCIN) 250 mg capsule pioglitazone (ACTOS) 30 mg tablet tobramycin-dexamethasone (TOBRADEX) ophthalmic suspension INSTILL 2 DROPS INTO AFFECTED EYE 4 TIMES DAILY iqelsmof-rynsxffwa-mtfwjjht tisone (CORTISPORIN) otic solution INSTILL 3 4 DROPS IN AFFECTED EAR FOUR TIMES DAILY pantoprazole DR (PROTONIX) 40 mg tablet Take 40 mg by mouth once daily. BREO ELLIPTA 100-25 mcg/dose inhaler 1 Inhalation once daily. fenofibrate nanocrystallized (TRICOR) 145 mg tablet Take 145 mg by mouth once daily. oxyCODONE IR (ROXICODONE) 10 mg tab 10 mg as needed. levothyroxine (SYNTHROID) 50 mcg tablet Take 50 mcg by mouth once daily. MELOXICAM 15 mg tablet Take 15 mg by mouth as needed. GLUCOPHAGE 500 MG TAB Take 1,000 mg by mouth daily with breakfast. 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 HEENT: Negative for frequent or significant headaches. No changes in hearing or vision, no nose bleeds or other nasal problems. Respiratory: Negative for cough, wheezing or shortness of breath. Cardiovascular: Negative for chest pain, leg swelling or palpitations. GI: Negative for abdominal discomfort, blood in stools or black stools or change in bowel habits. : No history of dysuria, frequency or incontinence. Musculoskeletal: Right leg pain status post fracture- persistent. Skin: Negative for lesions, rash and itching. Hematology/Lymphology: Negative for prolonged bleeding, bruising easily or swollen nodes. Neuro: No history of headaches, syncope, paralysis, seizures or tremors. PHYSICAL EXAM: Vitals: BP 119/68 Pulse 62 Temp 36.2 ?C (97.2 ?F) (Temporal) Resp 20 Ht 175.3 cm (5' 9.02 ) Wt 86.3 kg (190 lb 3.2 oz) SpO2 98% BMI 28.07 kg/m? ECOG 0 Exam limited to gross visualization where appropriate due to COVID-19. Gen.: This is an age-appropriate patient in no acute distress. Head: Appears atraumatic with no visible lesions. Eyes: Pupils equally round and reactive to light, extraocular muscles are intact. Neck: Supple. Mouth: Mucous membranes appeared to be moist. Respiratory: Appears to be respiring comfortably. Neurologic: Nonfocal to gross visualization. Alert and oriented ?3. Psychiatric: No evidence of inappropriate anxiety or depression. Skin: Visible areas of skin without rash, lesions, wounds or petechiae. PATHOLOGY: 05/07/2020 Prostate biopsy ([facility]) FINAL DIAGNOSIS 1. Prostate, left base, core biopsy (A): Benign prostatic tissue (more content not included)... Normal [facility] IMMUNOFIXATION SCREEN, SERUM on 08-28-2023 INTERPRETATION (MPA) Atypical restricted bands are present in the IgG and kappa regions. Consistent with IgG kappa monoclonal gammopathy. Normal [facility] Comment on above: Order Comment: Speci men Type: BLOOD SPECIMENOrdering Facility: [facility] Address: [address] [place] [address] Performed By: #### I FESC ####[facility] [id number] [place] [address] [place] MPA RESULT M protein is present. Abnormal No M p rotein is identified. [facility] Comment on above: Order Comment: Speci men Type: BLOOD SPECIMENOrdering Facility: [facility] Address: [address] [place] [address] Performed By: #### I FESC ####[facility] [id number] [place] [address] [place] STAFF REVIEW (MPA) Reviewed by Dea Gutierrez M.D., Ph.D Normal [facility] Comment on above: Order Comment: Speci men Type: BLOOD SPECIMENOrdering Facility: [facility] Address: [address] [place] [address] Performed By: #### I [facility] ####[facility] [id number] [place] [address] [place] IMMUNOGLOBULINS GAMon 2022 IgA [Mass/Vol] 84 mg/dL Normal 70-400 [facility] Comment on above: Order Comment: Speci men Type: BLOOD SPECIMEN [facility]ing Facility: [facility] Address: [address] [place] [address] Performed By: #### 2 857-1 #### [facility] CLIA [id number] [address] [place] [address] [place] IgG [Mass/Vol] 1055 mg/dL Normal 700-1600 [facility] Comment on above: Order Comment: Speci men Type: BLOOD SPECIMEN [facility]ing Facility: [facility] Address: [address] [place] [address] Performed By: #### 2 857-1 #### [facility] CLIA [id number] [address] [place] [address] [place] IgM [Mass/Vol] 18 mg/dL Low 40-230 [facility] Comment on above: Order Comment: Speci men Type: BLOOD SPECIMEN [facility]ing Facility: [facility] Address: [address] [place] [address] Performed By: #### 2 857-1 #### [facility] CLIA [id number] [address] [place] [address] [place] KAPPA/DANIELS,FREE,SERon 2022 Immunoglobulin light chains.kappa.free (S) [Mass/Vol] 32.6 mg/L High 3.3-19.4 [facility] Comment on above: Order Comment: Speci men Type: BLOOD SPECIMEN [facility]: [facility] Address: [address] [place] [address] Result Comment: Rare ly, increased serum free light chains levels may not be detected or accurately quantified due to prozone phenomenon or in high viscosity samples using this immunoturbidimetric assay. Correlation with other laboratory results and clinical findings is recommended. The [place] Free Light Chain was performed using the Binding Site Optilite immunoturbidimetric method. Result obtained with different assay methods or kits cannot be used interchangeably. Performed By: #### 2 857-1 #### [facility] CLIA [id number] [address] [place] [address] [place] Immunoglobulin light chains.kappa/Immun oglobulin light chains.lambda (S) [Mass ratio] 1.87 High 0.26-1.65 [facility] Comment on above: Order Comment: Speci [facility] Type: BLOOD SPECIMEN [facility]ing Facility[facility] Address: [address] [place] [address] Performed By: #### 2 857-1 #### [facility] CLIA [id number] [address] [place] [address] [place] Immunoglobulin light chains.lambda.free [Mass/Vol] 17.4 mg/L Normal 5.7-26.3 [facility] Comment on above: Order Comment: Specsam [facility] Type: BLOOD SPECIMEN [facility] Address: [address] [place] [address] Result Comment: Rare ly, increased serum free light chains levels may not be detected or accurately quantified due to prozone phenomenon or in high viscosity samples using this immunoturbidimetric assay. Correlation with other laboratory results and clinical findings is recommended. The Lambda Free Light Chain was performed using the Binding Site Optilite immunoturbidimetric method. Result obtained with different assay methods or kits cannot be used interchangeably. Performed By: #### 2 857-1 #### [facility] CLIA [id number] [address] [place] [address] [place] PROTEIN ELECTROPHORESIS SERU M WITH TOÑITO (P)on 08-28-2023 Albumin [Mass/Vol] 3.88 g/dL Normal 3.43-5.41 [facility] Comment on above: Order Comment: Speci men Type: BLOOD SPECIMENOrdering Facility: [facility] Address: [address] [place] [address] Performed By: #### L [id number] ####[facility] [id number] [place] [address] [place] Alpha 1 globulin Elph [Mass/Vol] 0.23 g/dL Normal 0.18-0.43 [facility] Comment on above: Order Comment: Speci men Type: BLOOD SPECIMENOrdering Facility: [facility] Address: [address] [place] [address] Performed By: #### L [id number] ####[facility] LABIA [id number] [place] [address] [place] Alpha 2 globulin Elph [Mass/Vol] 0.61 g/dL Normal 0.42-0.98 [facility] Comment on above: Order Comment: Speci men Type: BLOOD SPECIMENOrdering Facility: [facility] Address: [address] [place] [address] Performed By: #### L [id number] ####[facility] LABIA [id number] [place] [address] [place] Beta globulin Elph [Mass/Vol] 0.70 g/dL Normal 0.61-1.17 [facility] Comment on above: Order Comment: Speci men Type: BLOOD SPECIMENOrdering Facility: [facility] Address: [address] [place] [address] Performed By: #### L [id number] ####[facility] LAB[facility] [id number] [place] [address] [place] COMMENT (SERUM PROT ELECTRO) Monoclonal Protein analysis (immunofixation) is not indicated. Normal [facility] Comment on above: Order Comment: Speci men Type: BLOOD SPECIMENOrdering Facility: [facility] Address: [address] [place] [address] Performed By: #### L [id number] ####[facility] [id number] [place] [address] [place] Gamma globulin Elph [Mass/Vol] 0.98 g/dL Normal 0.53-1.51 [facility] Comment on above: Order Comment: Speci men Type: BLOOD SPECIMENOrdering Facility: [facility] Address: [address] [place] [address] Performed By: #### L [id number] ####[facility] LABIA [id number] [place] [address] [place] INTERPRETATION COMMENT FOR PROTEIN ELECTROPHORESIS See separate immunofixation report for characterization of monoclonal gammopathy. Normal [facility] Comment on above: Order Comment: Speci men Type: BLOOD SPECIMENOrdering Facility: [facility] Address: [address] [place] [address] Performed By: #### L [id number] ####[facility] LABIA [id number] [place] [address] [place] M-PROTEIN LOCATION Gamma Fraction 1 Normal [facility] Comment on above: Order Comment: Speci men Type: BLOOD SPECIMENOrdering Facility: [facility] Address: [address] [place] [address] Performed By: #### L [id number] ####[facility] LABIA [id number] [place] [address] [place] Protein Fractions [Interp] An M protein is identified on protein electrophoresis. Abnormal No definitive M protein is identified on protein electrophore sis. [facility] Comment on above: Order Comment: Speci men Type: BLOOD SPECIMENOrdering Facility: [facility] Address: [address] [place] [address] Performed By: #### L [id number] ####[facility] LABIA [id number] [address] Protein.monoclonal Elph [Mass/Vol] 0.66 g/dL High <=0.00 [facility] Comment on above: Order Comment: Speci men Type: BLOOD SPECIMENOrdering Facility: [facility] Address: [address] [place] [address] Performed By: #### L [id number] ####[facility] [id number] [address] [place] SPE STAFF REVIEW Reviewed by Dea Gutierrez M.D., Ph.D Normal [facility] Comment on above: Order Comment: Speci men Type: BLOOD SPECIMENOrdering Facility: [facility] Address: [address] [place] [address] Performed By: #### L [id number] ####[facility] [id number] [address] [place] Prot SerPl-mCncon 08-28-2023 Protein [Mass/Vol] 6.4 g/dL Normal 6.3-8.0 [facility] Comment on above: Order Comment: Speci men Type: BLOOD SPECIMENOrdering Facility: [facility] Address: [address] [place] [address] Performed By: #### 2 885-2 ####[facility] [id number] [address] [place] CNPVangie 06-20-2023 [place] Telephone (HEMAS[place]) ZACH MANUEL ([id number]) 1945 M Date Time Provider Department 06/20/23 MARY KAY ROLAND During your visit today, we recorded the following information about you: Mary Kay Roland RN 06/20/2023 11:23 AM Signed Pt stop to request information to be sent to Dr Mak, for upcoming oral surgery. Pt needed last hgb/ treatment information for his bone disease , and last date infusion received. Last office note faxed to office. Will call for further needs. Mary Kay Roland RN Allergies As of Date: 06/20/2023 Noted Allergy Reaction AZITHROMYCIN 07/12/2018 16 - Unknown ERTHROMYCIN (ERYTHROMYCIN) 12/05/2016 16 - Unknown SULFA (SULFONAMIDE ANTIBIOTICS) 09/19/2012 16 - Unknown TOBRAMYCIN 03/08/2020 14 - Other: See Comments Comments: made condition worse Date Reviewed: 05/29/2023 Reviewed by: Pieter December - Fully Assessed Reason for Visit: Care coordination for Oral surgery [Other] Prescriptions as of 06/20/2023 - lenalidomide (REVLIMID) 5 mg capsule Take 1 capsule by mouth daily for 21 days on and 7 days off. - glyBURIDE micronized (GLYNASE) 6 mg tablet - dexAMETHasone (DECADRON) 4 mg tablet TAKE 2 TABLETS BY MOUTH ONCE A WEEK - JARDIANCE 10 mg tablet Take 10 mg by mouth once daily. - DEXILANT 60 mg CpDM Take 1 capsule by mouth once daily. - liothyronine (CYTOMEL) 5 mcg tablet - metroNIDAZOLE (FLAGYL) 500 mg tablet - vancomycin (VANCOCIN) 250 mg capsule - pioglitazone (ACTOS) 30 mg tablet - tobramycin-dexamethasone (TOBRADEX) ophthalmic suspension INSTILL 2 DROPS INTO AFFECTED EYE 4 TIMES DAILY - uzpoouae-xdkhhfojt-gbbgciid tisone (CORTISPORIN) otic solution INSTILL 3 4 DROPS IN AFFECTED EAR FOUR TIMES DAILY - pantoprazole DR (PROTONIX) 40 mg tablet Take 40 mg by mouth once daily. - BREO ELLIPTA 100-25 mcg/dose inhaler 1 Inhalation once daily. - fenofibrate nanocrystallized (TRICOR) 145 mg tablet Take 145 mg by mouth once daily. - oxyCODONE IR (ROXICODONE) 10 mg tab 10 mg as needed. - levothyroxine (SYNTHROID) 50 mcg tablet Take 50 mcg by mouth once daily. - MELOXICAM 15 mg tablet Take 15 mg by mouth as needed. - GLUCOPHAGE 500 MG TAB Take 1,000 mg by mouth daily with breakfast. 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] 10/20/2015 Perirectal skin irritation [K62.89] 10/20/2015 Anal bleeding [K62.5] 10/20/2015 Type 2 diabetes mellitus without complication (*10/20/2015 alf current use of systemic steroids [Z79*10/20/2015 Left inguinal hernia [K40.90] 10/20/2015 Former smoker [Z87.891] 10/20/2015 Elevated prostate specific antigen (PSA) [R97.2*03/19/2020 Stage 3 chronic kidney disease, unspecified whe*03/06/2023 Encounter Status:Closed by MARY KAY ROLAND on 06/20/23 [facility] 06-18-2023 [place] Telephone ([place]) ZACH MANUEL ([id number]) 1945 M Date Time Provider Department 06/18/23 MARY KAY ROLAND HEMASA During your visit today, we recorded the following information about you: Mary Kay Roland RN 06/18/2023 3:14 PM Signed Pt requests monthly refill of Revlimid to [facility] pharmacy. BRM: pended as previously ordered; please sign if agreeable. Mary Kay Roland RN Allergies As of Date: 06/18/2023 Noted Allergy Reaction AZITHROMYCIN 07/12/2018 16 - Unknown ERTHROMYCIN (ERYTHROMYCIN) 12/05/2016 16 - Unknown SULFA (SULFONAMIDE ANTIBIOTICS) 09/19/2012 16 - Unknown TOBRAMYCIN 03/08/2020 14 - Other: See Comments Comments: made condition worse Date Reviewed: 05/29/2023 Reviewed by: Pieter Selin - Fully Assessed Reason for Visit: Orders [681] Order(s):lenalidomide (REVLIMID) 5 mg capsuleTake 1 capsule by mouth daily for 21 days on and 7 days off.Disp: 21 capsuleRfl: 0 Prescriptions as of 06/19/2023 - lenalidomide (REVLIMID) 5 mg capsule Take 1 capsule by mouth daily for 21 days on and 7 days off. - glyBURIDE micronized (GLYNASE) 6 mg tablet - dexAMETHasone (DECADRON) 4 mg tablet TAKE 2 TABLETS BY MOUTH ONCE A WEEK - JARDIANCE 10 mg tablet Take 10 mg by mouth once daily. - DEXILANT 60 mg CpDM Take 1 capsule by mouth once daily. - liothyronine (CYTOMEL) 5 mcg tablet - metroNIDAZOLE (FLAGYL) 500 mg tablet - vancomycin (VANCOCIN) 250 mg capsule - pioglitazone (ACTOS) 30 mg tablet - tobramycin-dexamethasone (TOBRADEX) ophthalmic suspension INSTILL 2 DROPS INTO AFFECTED EYE 4 TIMES DAILY - mhndjpfo-kufejbyse-cotbuljh tisone (CORTISPORIN) otic solution INSTILL 3 4 DROPS IN AFFECTED EAR FOUR TIMES DAILY - pantoprazole DR (PROTONIX) 40 mg tablet Take 40 mg by mouth once daily. - BREO ELLIPTA 100-25 mcg/dose inhaler 1 Inhalation once daily. - fenofibrate nanocrystallized (TRICOR) 145 mg tablet Take 145 mg by mouth once daily. - oxyCODONE IR (ROXICODONE) 10 mg tab 10 mg as needed. - levothyroxine (SYNTHROID) 50 mcg tablet Take 50 mcg by mouth once daily. - MELOXICAM 15 mg tablet Take 15 mg by mouth as needed. - GLUCOPHAGE 500 MG TAB Take 1,000 mg by mouth daily with breakfast. 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 Outlet dysfunction constipation [K59.02] 10/20/2015 Perirectal skin irritation [K62.89] 10/20/2015 Anal bleeding [K62.5] 10/20/2015 Type 2 diabetes mellitus without complication (*10/20/2015 [employer] current use of systemic steroids [Z79*10/20/2015 Left inguinal hernia [K40.90] 10/20/2015 Former smoker [Z87.891] 10/20/2015 Elevated prostate specific antigen (PSA) [R97.2*03/19/2020 Stage 3 chronic kidney disease, unspecified whe*03/06/2023 Prescriptions ordered this encounter Disp Refills Start End LENALIDOMIDE 5 MG CAPSULE 21 c* 0 06/18/2023 Sig: Take 1 capsule by mouth daily for 21 days on and 7 days off. Medications Discontinued During This Encounter Prescriptions - lenalidomide (REVLIMID) 5 mg capsule (Discontinued) Take 1 capsule by mouth daily for 21 days on and 7 days off. Encounter Status:Closed by MARY KAY ROLAND on 06/19/23 [facility] ([id number]) 1945 M Date Time Provider Department 05/31/23 MARY KAY ROLNAD HEMASA During your visit today, we recorded the following information about you: Mary Kay Roland RN 05/31/2023 2:44 PM Signed ----- Message from Uriel Gunter MD sent at 05/31/2023 12:08 PM EDT ----- Please inform the patient that his protein analysis is stable which is excellent news. We will continue as planned. Mary Kay Roland RN 05/31/2023 2:45 PM Signed Pt informed of TAYLOR message. He denies any questions or concerns at this time. Appt verifed Mary Kay Roland RN Allergies As of Date: 05/31/2023 Noted Allergy Reaction AZITHROMYCIN 07/12/2018 16 - Unknown ERTHROMYCIN (ERYTHROMYCIN) 12/05/2016 16 - Unknown SULFA (SULFONAMIDE ANTIBIOTICS) 09/19/2012 16 - Unknown TOBRAMYCIN 03/08/2020 14 - Other: See Comments Comments: made condition worse Date Reviewed: 05/29/2023 Reviewed by: Pieter Selin - Fully Assessed Reason for Visit: Results [95] Prescriptions as of 05/31/2023 - lenalidomide (REVLIMID) 5 mg capsule Take 1 capsule by mouth daily for 21 days on and 7 days off. - glyBURIDE micronized (GLYNASE) 6 mg tablet - dexAMETHasone (DECADRON) 4 mg tablet TAKE 2 TABLETS BY MOUTH ONCE A WEEK - JARDIANCE 10 mg tablet Take 10 mg by mouth once daily. - DEXILANT 60 mg CpDM Take 1 capsule by mouth once daily. - liothyronine (CYTOMEL) 5 mcg tablet - metroNIDAZOLE (FLAGYL) 500 mg tablet - vancomycin (VANCOCIN) 250 mg capsule - pioglitazone (ACTOS) 30 mg tablet - tobramycin-dexamethasone (TOBRADEX) ophthalmic suspension INSTILL 2 DROPS INTO AFFECTED EYE 4 TIMES DAILY - uvuteodb-nvhuezldh-ubtoswkz tisone (CORTISPORIN) otic solution INSTILL 3 4 DROPS IN AFFECTED EAR FOUR TIMES DAILY - pantoprazole DR (PROTONIX) 40 mg tablet Take 40 mg by mouth once daily. - BREO ELLIPTA 100-25 mcg/dose inhaler 1 Inhalation once daily. - fenofibrate nanocrystallized (TRICOR) 145 mg tablet Take 145 mg by mouth once daily. - oxyCODONE IR (ROXICODONE) 10 mg tab 10 mg as needed. - levothyroxine (SYNTHROID) 50 mcg tablet Take 50 mcg by mouth once daily. - MELOXICAM 15 mg tablet Take 15 mg by mouth as needed. - GLUCOPHAGE 500 MG TAB Take 1,000 mg by mouth daily with breakfast. 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 Outlet dysfunction constipation [K59.02] 10/20/2015 Perirectal skin irritation [K62.89] 10/20/2015 Anal bleeding [K62.5] 10/20/2015 Type 2 diabetes mellitus without complication (*10/20/2015 [employer] current use of systemic steroids [Z79*10/20/2015 Left inguinal hernia [K40.90] 10/20/2015 Former smoker [Z87.891] 10/20/2015 Elevated prostate specific antigen (PSA) [R97.2*03/19/2020 Stage 3 chronic kidney disease, unspecified whe*03/06/2023 Encounter Status:Closed by MARY KAY ROLAND on 05/31/23 Normal [facility] CBC W Auto Differential pane l (Bld)on 05-29-2023 Basophils (Bld) [#/Vol] 0.12 10*3/uL High <0.11 [facility] Comment on above: Order Comment: Speci men Type: BLOOD SPECIMEN [facility] Facility: [facility] Address: [address] [place] [place] [address] Performed By: #### 2 857-1 #### [facility] CLIA [id number] [address] [place] [address] [place] Basophils/100 WBC (Bld) 2.6 % Normal [facility] Comment on above: Order Comment: Speci men Type: BLOOD SPECIMEN [facility]ing Facility: [facility] Address: [address] [address] Performed By: #### 2 857-1 #### [facility] CLIA [id number] [address] [place] [address] [place] Differential cell count method Nom (Bld) Auto Normal [facility] Comment on above: Order Comment: Speci men Type: BLOOD SPECIMEN [facility]ing Facility: [facility] Address: [address] [address] Performed By: #### 2 857-1 #### [facility] CLIA [id number] [address] [place] [address] [place] Eosinophils (Bld) [#/Vol] 0.23 10*3/uL Normal <0.46 [facility] Comment on above: Order Comment: Speci men Type: BLOOD SPECIMEN Ordering Facility: [facility] Address: [address] Performed By: #### 2 857-1 #### [facility] CLIA [id number] [address] [place] [address] [place] Eosinophils/100 WBC (Bld) 5.0 % Normal [facility] Comment on above: Order Comment: Speci men Type: BLOOD SPECIMEN Ordering Facility: [facility] Address: [address] [place], [place] [address] Performed By: #### 2 857-1 #### [facility] CLIA [id number] [address] [place] [address] [place] Erythrocyte distribution width (RBC) [Ratio] 14.5 % Normal 11.5-15.0 [facility] Comment on above: Order Comment: Speci men Type: BLOOD SPECIMEN Ordering Facility: [facility] Address: [address] [place], [place] [address] Performed By: #### 2 857-1 #### [facility] CLIA [id number] [address] [place] [address] [place] Hematocrit (Bld) [Volume fraction] 41.9 % Normal 39.0-51.0 [facility] Comment on above: Order Comment: Speci men Type: BLOOD SPECIMEN Ordering Facility: [facility] Address: [address] Performed By: #### 2 857-1 #### [facility] CLIA [id number] [address] [place] [address] [place] Hemoglobin (Bld) [Mass/Vol] 14.2 g/dL Normal 13.0-17.0 [facility] Comment on above: Order Comment: Speci men Type: BLOOD SPECIMEN Ordering Facility: [facility] Address: [address] Performed By: #### 2 857-1 #### [facility] CLIA [id number] [address] [place] [address] [place] Immature granulocytes (Bld) [#/Vol] 0.05 10*3/uL Normal <0.10 [facility] Comment on above: Order Comment: Speci men Type: BLOOD SPECIMEN Ordering Facility: [facility] Address: [address] Performed By: #### 2 857-1 #### [facility] CLIA [id number] [address] [place] [address] [place] Immature granulocytes/100 WBC (Bld) 1.1 % Normal [facility] Comment on above: Order Comment: Speci men Type: BLOOD SPECIMEN Ordering Facility: [facility] Address: [address] Performed By: #### 2 857-1 #### [facility] CLIA [id number] [address] [place] [address] [place] Lymphocytes (Bld) [#/Vol] 0.90 10*3/uL Low 1.00-4.00 [facility] Comment on above: Order Comment: Speci men Type: BLOOD SPECIMEN Ordering Facility: [facility] Address: [address] Performed By: #### 2 857-1 #### [facility] CLIA [id number] [address] [place] [address] [place] Lymphocytes/100 WBC (Bld) 19.4 % Normal [facility] Comment on above: Order Comment: Speci men Type: BLOOD SPECIMEN Ordering Facility: [facility] Address: [address] Performed By: #### 2 857-1 #### [facility] CLIA [id number] [address] MCH (RBC) [Entitic mass] 34.3 pg High 26.0-34.0 [facility] Comment on above: Order Comment: Speci men Type: BLOOD SPECIMEN Ordering Facility: [facility] Address: [address] [place] [address] Performed By: #### 2 857-1 #### [facility] CLIA [id number] [address] [place] [address] [place] MCHC (RBC) [Mass/Vol] 33.9 g/dL Normal 30.5-36.0 [facility] Comment on above: Order Comment: Speci men Type: BLOOD SPECIMEN Ordering Facility: [facility] Address: [address] [place] [address] Performed By: #### 2 857-1 #### [facility] CLIA [id number] [address] [place] [address] [place] MCV (RBC) [Entitic vol] 101.2 fL High 80.0-100.0 [facility] Comment on above: Order Comment: Speci men Type: BLOOD SPECIMEN Ordering Facility: [facility] Address: [address] [place] [address] Performed By: #### 2 857-1 #### [facility] CLIA [id number] [address] [place] [address] [place] Monocytes (Bld) [#/Vol] 0.38 10*3/uL Normal <0.87 [facility] Comment on above: Order Comment: Speci men Type: BLOOD SPECIMEN Ordering Facility: [facility] Address: [address] [place] [address] Performed By: #### 2 857-1 #### [facility] CLIA [id number] [facility] [address] [place] Monocytes/100 WBC (Bld) 8.2 % Normal [facility] Comment on above: Order Comment: Speci men Type: BLOOD SPECIMEN Ordering Facility: [facility] Address: [address] Performed By: #### 2 857-1 #### [facility] CLIA [id number] [address] [place] [address] [place] Neutrophils (Bld) [#/Vol] 2.95 10*3/uL Normal 1.45-7.50 [facility] Comment on above: Order Comment: Speci men Type: BLOOD SPECIMEN Ordering Facility: [facility] Address: [address] Performed By: #### 2 857-1 #### [facility] CLIA [id number] [address] [place] [address] [place] Neutrophils/100 WBC (Bld) 63.7 % Normal [facility] Comment on above: Order Comment: Speci men Type: BLOOD SPECIMEN Ordering Facility: [facility] Address: [address] Performed By: #### 2 857-1 #### [facility] CLIA [id number] [address] [place] [address] [place] Nucleated RBC (Bld) [#/Vol] 10*3/uL Normal <0.01 [facility] Comment on above: Order Comment: Speci men Type: BLOOD SPECIMEN Ordering Facility: [facility] Address: [address] Performed By: #### 2 857-1 #### [facility] CLIA [id number] [address] [place] [address] [place] Nucleated RBC/100 WBC (Bld) [Ratio] 0.0 /100 WBC Normal [facility] Comment on above: Order Comment: Speci men Type: BLOOD SPECIMEN Ordering Facility: [facility] Address: [address] Performed By: #### 2 857-1 #### [facility] CLIA [id number] [address] [place] [address] [place] Platelet mean volume (Bld) [Entitic vol] 10.5 fL Normal 9.0-12.7 [facility] Comment on above: Order Comment: Speci men Type: BLOOD SPECIMEN Ordering Facility: [facility] Address: [address] [place], [place] [address] Performed By: #### 2 857-1 #### [facility] CLIA [id number] [address] [place] [address] [place] Platelets (Bld) [#/Vol] 199 10*3/uL Normal 150-400 [facility] Comment on above: Order Comment: Speci men Type: BLOOD SPECIMEN Ordering Facility: [facility] Address: [address] [place], [place] [address] Performed By: #### 2 857-1 #### [facility] CLIA [id number] [address] [place] [address] [place] RBC (Bld) [#/Vol] 4.14 10*6/uL Low 4.20-6.00 [facility] Comment on above: Order Comment: Speci men Type: BLOOD SPECIMEN Ordering Facility: [facility] Address: [address] [place], [place] [address] Performed By: #### 2 857-1 #### [facility] CLIA [id number] [address] [place] [address] [place] WBC (Bld) [#/Vol] 4.63 10*3/uL Normal 3.70-11.00 [facility] Comment on above: Order Comment: Speci men Type: BLOOD SPECIMEN Ordering Facility: [facility] Address: [address] [place], [place] [address] Performed By: #### 2 857-1 #### [facility] CLIA [id number] [address] [place] [address] [place] CNOVSPon 09-05-2023 CNOVSP Visit (SP) Office (H EMASA) ZACH MANUEL ([id number]) 1945 M Date Time Provider Department 05/29/23 1:00 PM URIEL GUNTER During your visit today, we recorded the following information about you: Temperature Pulse Respiration Blood pressure 97.2 degrees 56/minute 16/minute 136/49 Weight Height 87.5 kg 1.753 m Uriel Gunter MD 05/30/2023 7:17 AM Signed PATIENT NAME: Zach Manuel DATE: 05/29/2023 PRIMARY CARE PHYSICIAN: Dr. Hanna Mathias OTHER PHYSICIANS: Dr. Lewis, Dr. Martinez Portions of this encounter note have been copied from the note from 03/06/2023 and has been updated where appropriate, and reflect my current medical decision making from today. CC: This is a 78 year old male with a history of multiple myeloma, seen for scheduled follow-up. INTERIM HISTORY: Since the patient's last visit here he has remained on treatment with Revlimid 5 mg daily 21 days on and 7 days off plus Decadron 8 mg weekly. He is tolerating the treatment quite well. Apparently he has had issues with his teeth and is scheduled to undergo several tooth extractions later this month. The patient has had no other significant medical changes. No unusual bone pain. No fevers or signs of infection. MEDICATIONS: lenalidomide (REVLIMID) 5 mg capsule Take 1 capsule by mouth daily for 21 days on and 7 days off. glyBURIDE micronized (GLYNASE) 6 mg tablet dexAMETHasone (DECADRON) 4 mg tablet TAKE 2 TABLETS BY MOUTH ONCE A WEEK JARDIANCE 10 mg tablet Take 10 mg by mouth once daily. DEXILANT 60 mg CpDM Take 1 capsule by mouth once daily. liothyronine (CYTOMEL) 5 mcg tablet metroNIDAZOLE (FLAGYL) 500 mg tablet vancomycin (VANCOCIN) 250 mg capsule pioglitazone (ACTOS) 30 mg tablet tobramycin-dexamethasone (TOBRADEX) ophthalmic suspension INSTILL 2 DROPS INTO AFFECTED EYE 4 TIMES DAILY gsvyqfog-tqjoapqlw-rtacdafm tisone (CORTISPORIN) otic solution INSTILL 3 4 DROPS IN AFFECTED EAR FOUR TIMES DAILY pantoprazole DR (PROTONIX) 40 mg tablet Take 40 mg by mouth once daily. BREO ELLIPTA 100-25 mcg/dose inhaler 1 Inhalation once daily. fenofibrate nanocrystallized (TRICOR) 145 mg tablet Take 145 mg by mouth once daily. oxyCODONE IR (ROXICODONE) 10 mg tab 10 mg as needed. levothyroxine (SYNTHROID) 50 mcg tablet Take 50 mcg by mouth once daily. MELOXICAM 15 mg tablet Take 15 mg by mouth as needed. GLUCOPHAGE 500 MG TAB Take 1,000 mg by mouth daily with breakfast. 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 HEENT: Negative for frequent or significant headaches. No changes in hearing or vision, no nose bleeds or other nasal problems. Respiratory: Negative for cough, wheezing or shortness of breath. Cardiovascular: Negative for chest pain, leg swelling or palpitations. GI: Negative for abdominal discomfort, blood in stools or black stools or change in bowel habits. : No history of dysuria, frequency or incontinence. Musculoskeletal: Right leg pain status post fracture- persistent. Skin: Negative for lesions, rash and itching. Hematology/Lymphology: Negative for prolonged bleeding, bruising easily or swollen nodes. Neuro: No history of headaches, syncope, paralysis, seizures or tremors. PHYSICAL EXAM: Vitals: BP (!) 136/49 Pulse (!) 56 Temp 36.2 ?C (97.2 ?F) (Temporal) Resp 16 Ht 175.3 cm (5' 9.02 ) Wt 87.5 kg (192 lb 12.8 oz) SpO2 98% BMI 28.46 kg/m? ECOG 0 Exam limited to gross visualization where appropriate due to COVID-19. Gen.: This is an age-appropriate patient in no acute distress. Head: Appears atraumatic with no visible lesions. Eyes: Pupils equally round and reactive to light, extraocular muscles are intact. Neck: Supple. Mouth: Mucous membranes appeared to be moist. Respiratory: Appears to be respiring comfortably. Neurologic: Nonfocal to gross visualization. Alert and oriented ?3. Psychiatric: No evidence of inappropriate anxiety or depression. Skin: Visible areas of skin without rash, lesions, wounds or petechiae. PATHOLOGY: 05/07/2020 Prostate biopsy ([facility]) FINAL DIAGNOSIS 1. Prostate, left bas (more content not included)... Normal [facility] Comprehensive metabolic 2000 panelon 05-29-2023 Albumin [Mass/Vol] 4.0 g/dL Normal 3.9-4.9 [facility] Comment on above: Order Comment: Speci men Type: BLOOD SPECIMENOrdering Facility: [facility] Address: [address] [address] Performed By: #### 2 4323-8 ####[facility] [id number] [place] [address] ALP [Catalytic activity/Vol] 86 U/L Normal 38-113 [facility] Comment on above: Order Comment: Speci men Type: BLOOD SPECIMENOrdering Facility: [facility] Address: [address] [address] Performed By: #### 2 4323-8 ####[facility] [id number] [place] [address] ALT [Catalytic activity/Vol] 9 U/L Low 10-54 [facility] Comment on above: Order Comment: Speci men Type: BLOOD SPECIMENOrdering Facility: [facility] Address: [address] [address] Performed By: #### 2 4323-8 ####[facility] [id number] [place] [address] Anion gap [Moles/Vol] 11 mmol/L Normal 9-18 [facility] Comment on above: Order Comment: Speci men Type: BLOOD SPECIMENOrdering Facility: [facility] Address: [address] [place] [address] Performed By: #### 2 4323-8 ####[facility] [id number] [place] [address] AST [Catalytic activity/Vol] 10 U/L Low 14-40 [facility] Comment on above: Order Comment: Speci men Type: BLOOD SPECIMENOrdering Facility: [facility] Address: [address] [place] [address] Performed By: #### 2 4323-8 ####[facility] [id number] [place] [address] Bilirubin [Mass/Vol] 1.0 mg/dL Normal 0.2-1.3 [facility] Comment on above: Order Comment: Speci men Type: BLOOD SPECIMENOrdering Facility: [facility] Address: [address] [place] [address] Performed By: #### 2 4323-8 ####[facility] [id number] [place] [address] Calcium [Mass/Vol] 8.8 mg/dL Normal 8.5-10.2 [facility] Comment on above: Order Comment: Speci men Type: BLOOD SPECIMENOrdering Facility: [facility] Address: [address] [place] [address] Performed By: #### 2 4323-8 ####[facility] [id number] [place] [address] Chloride [Moles/Vol] 104 mmol/L Normal 97-105 [facility] Comment on above: Order Comment: Speci men Type: BLOOD SPECIMENOrdering Facility: [facility] Address: [address] [address] Performed By: #### 2 4323-8 ####[facility] [id number] [place] [address] CO2 [Moles/Vol] 25 mmol/L Normal 22-30 [facility] Comment on above: Order Comment: Speci men Type: BLOOD SPECIMENOrdering Facility: [facility] Address: [address] [place] [address] Performed By: #### 2 4323-8 ####[facility] [id number] [place] [address] Creatinine [Mass/Vol] 1.59 mg/dL High 0.73-1.22 [facility] Comment on above: Order Comment: Speci men Type: BLOOD SPECIMENOrdering Facility: [facility] Address: [address] [place] [address] Performed By: #### 2 4323-8 ####[facility] [id number] [place] [address] Creatinine and Glomerular filtration rate.predicted panel (S/P/Bld) 45 mL/min/1.73m??? Low >=60 [facility] Comment on above: Order Comment: Speci men Type: BLOOD SPECIMENOrdering Facility: [facility] Address: [address] [place] [address] Result Comment: Chanda mated Glomerular Filtration Rate (eGFR) is calculated using the 2020 CKD-EPI creatinine equation. This equation utilizes serum creatinine, sex, and age as parameters. The creatinine assay has traceable calibration to isotope dilution-mass spectrometry. Refer to KDIGO guidelines for clinical interpretation. In patients with unstable renal function, e.g. those with acute kidney injury, the eGFR may not accurately reflect actual GFR. Performed By: #### 2 4323-8 ####[facility] [id number] [place] [address] Glucose [Mass/Vol] 268 mg/dL High 74-99 [facility] Comment on above: Order Comment: Michelle myles Type: BLOOD SPECIMENOrdering Facility: [facility] Address: [address] [place] [address] Result Comment: The [place] [employer] (ADA) provides guidance for cutoff values for fasting glucose and random glucose. The ADA defines fasting as no caloric intake for at least 8 hours. Fasting plasma glucose results between 100 to 125 mg/dL indicate increased risk for diabetes (prediabetes). Fasting plasma glucose results greater than or equal to 126 mg/dL meet the criteria for diagnosis of diabetes. In the absence of unequivocal hyperglycemia, results should be confirmed by repeat testing. In a patient with classic symptoms of hyperglycemia or hyperglycemic crisis, random plasma glucose results greater than or equal to 200 mg/dL meet the criteria for diagnosis of diabetes. Reference: Standards of Medical Care in Diabetes 2016, [place] [employer]. Diabetes Care. 2016.39(Suppl 1). Performed By: #### 2 4323-8 ####[facility]IA [id number] [place] [address] Potassium [Moles/Vol] 4.9 mmol/L Normal 3.7-5.1 [facility] Comment on above: Order Comment: Michelle myles Type: BLOOD SPECIMENOrdering Facility: [facility] Address: [address] [place] [address] Performed By: #### 2 4323-8 ####[facility] [id number] [place] [address] Protein [Mass/Vol] 6.4 g/dL Normal 6.3-8.0 [facility] Comment on above: Order Comment: Michelle myles Type: BLOOD SPECIMENOrdering Facility: [facility] Address: [address] [place] [address] Performed By: #### 2 4323-8 ####[facility]IA [id number] [place] [address] Sodium [Moles/Vol] 140 mmol/L Normal 136-144 [facility] Comment on above: Order Comment: Speci men Type: BLOOD SPECIMENOrdering Facility: [facility] Address: [address] [address] Performed By: #### 2 4323-8 ####[facility]IA [id number] [place] [address] Urea nitrogen [Mass/Vol] 19 mg/dL Normal 9-24 [facility] Comment on above: Order Comment: Speci men Type: BLOOD SPECIMENOrdering Facility: [facility] Address: [address] [address] Performed By: #### 2 4323-8 ####[facility]IA [id number] [place] [address] IMMUNOFIXATION SCREEN, SERUM on 05-29-2023 INTERPRETATION (MPA) Atypical restricted bands are present in the IgG and kappa regions. Consistent with IgG kappa monoclonal gammopathy. Normal [facility] Comment on above: Order Comment: Speci men Type: BLOOD SPECIMENOrdering Facility: [facility] Address: [address] [address] Performed By: #### I FESC ####[facility] LABIA [id number] [address] MPA RESULT M protein is present. Abnormal No M p rotein is identified. [facility] Comment on above: Order Comment: Speci men Type: BLOOD SPECIMENOrdering Facility: [facility] Address: [address] [place], [place] [address] Performed By: #### I FESC ####[facility] LABIA [id number] [address] STAFF REVIEW (MPA) Reviewed by Donaldo pena MD, Ph.D ([id number]) Normal [facility] Comment on above: Order Comment: Speci men Type: BLOOD SPECIMENOrdering Facility: [facility] Address: [address] [address] Performed By: #### I FESC ####[facility] LABCLIA [id number] [place] [address] [place] IMMUNOGLOBULINS GAMon 2022 IgA [Mass/Vol] 87 mg/dL Normal 70-400 [facility] Comment on above: Order Comment: Speci men Type: BLOOD SPECIMENOrdering Facility: [facility] Address: [address] [place] [address] Performed By: #### S ERIMM ####[facility]CLIA [id number] [place] [address] [place] IgG [Mass/Vol] 1145 mg/dL Normal 700-1600 [facility] Comment on above: Order Comment: Speci men Type: BLOOD SPECIMENOrdering Facility: [facility] Address: [address] [place] [address] Performed By: #### S ERIMM ####[facility] LABCLIA [id number] [address] [place] IgM [Mass/Vol] 17 mg/dL Low 40-230 [facility] Comment on above: Order Comment: Speci men Type: BLOOD SPECIMENOrdering Facility: [facility] Address: [address] [place] [address] Performed By: #### S ERIMM ####[facility]CLIA [id number] [place] [address] [place] KAPPA/DANIELS,FREE,SERon 2022 Immunoglobulin light chains.kappa.free (S) [Mass/Vol] 36.6 mg/L High 3.3-19.4 [facility] Comment on above: Order Comment: Speci men Type: BLOOD SPECIMENOrdering Facility: [facility] Address: [address] [place] [address] Result Comment: Rare ly, increased serum free light chains levels may not be detected or accurately quantified due to prozone phenomenon or in high viscosity samples using this immunoturbidimetric assay. Correlation with other laboratory results and clinical findings is recommended. The [place]algate Free Light Chain was performed using the Binding Site Optilite immunoturbidimetric method. Result obtained with different assay methods or kits cannot be used interchangeably. Performed By: #### K LFRS ####[facility] LABCLIA [id number] [address] [place] Immunoglobulin light chains.kappa/Immun oglobulin light chains.lambda (S) [Mass ratio] 1.95 High 0.26-1.65 [facility] Comment on above: Order Comment: Speci men Type: BLOOD SPECIMENOrdering Facility: [facility] Address: [address] [place] [address] Performed By: #### K LFRS ####[facility] LABIA [id number] [address] Immunoglobulin light chains.lambda.free [Mass/Vol] 18.8 mg/L Normal 5.7-26.3 [facility] Comment on above: Order Comment: Speci men Type: BLOOD SPECIMENOrdering Facility: [facility] Address: [address] [place] [address] Result Comment: Rare ly, increased serum free light chains levels may not be detected or accurately quantified due to prozone phenomenon or in high viscosity samples using this immunoturbidimetric assay. Correlation with other laboratory results and clinical findings is recommended. The Lambda Free Light Chain was performed using the Binding Site Optilite immunoturbidimetric method. Result obtained with different assay methods or kits cannot be used interchangeably. Performed By: #### K LFRS ####[facility] [id number] [place] [address] [place] PROTEIN ELECTROPHORESIS SERU M WITH TOÑITO (P)on 05-29-2023 Albumin [Mass/Vol] 3.65 g/dL Normal 3.43-5.41 [facility] Comment on above: Order Comment: Speci men Type: BLOOD SPECIMEN Ordering Facility: [facility] Address: [address] [place] [address] Performed By: #### L [id number] #### [facility] CLIA [id number] [address] [place] [address] [place] Alpha 1 globulin Elph [Mass/Vol] 0.19 g/dL Normal 0.18-0.43 [facility] Comment on above: Order Comment: Speci men Type: BLOOD SPECIMEN Ordering Facility: [facility] Address: [address] [place] [address] Performed By: #### L [id number] #### [facility] CLIA [id number] [address] [place] [address] [place] Alpha 2 globulin Elph [Mass/Vol] 0.60 g/dL Normal 0.42-0.98 [facility] Comment on above: Order Comment: Speci men Type: BLOOD SPECIMEN Ordering Facility: [facility] Address: [address] [place] [address] Performed By: #### L [id number] #### [facility] CLIA [id number] [address] [place] [address] [place] Beta globulin Elph [Mass/Vol] 0.60 g/dL Low 0.61-1.17 [facility] Comment on above: Order Comment: Speci men Type: BLOOD SPECIMEN Ordering Facility: [facility] Address: [address] [place] [address] Performed By: #### L [id number] #### [facility] CLIA [id number] [address] [place] [address] [place] COMMENT (SERUM PROT ELECTRO) Monoclonal Protein analysis (immunofixation) is not indicated. Normal [facility] Comment on above: Order Comment: Speci men Type: BLOOD SPECIMEN Ordering Facility: [facility] Address: [address] [place] [address] Performed By: #### L [id number] #### [facility] CLIA [id number] [address] [place] [address] [place] Gamma globulin Elph [Mass/Vol] 0.96 g/dL Normal 0.53-1.51 [facility] Comment on above: Order Comment: Michelle bueno Type: BLOOD SPECIMEN Ordering Facility: [facility] Address: [address] [place] [address] Performed By: #### L [id number] #### [facility] CLIA [id number] [address] OF [facility] INTERPRETATION COMMENT FOR PROTEIN ELECTROPHORESIS See separate immunofixation report for characterization of monoclonal gammopathy. Normal [facility] Comment on above: Order Comment: Michelle bueno Type: BLOOD SPECIMEN Ordering Facility: [facility] Address: [address] [place] [address] Performed By: #### L [id number] #### [facility] CLIA [id number] [address] [place] [address] [place] M-PROTEIN LOCATION Gamma Fraction 1 Normal [facility] Comment on above: Order Comment: Vickiei myles Type: BLOOD SPECIMEN Ordering Facility: [facility] Address: [address] [place], [place] [address] Performed By: #### L [id number] #### [facility] CLIA [id number] [address] [place] [address] Protein Fractions [Interp] An M protein is identified on protein electrophoresis. Abnormal No definitive M protein is identified on protein electrophore sis. [facility] Comment on above: Order Comment: Vickiei men Type: BLOOD SPECIMEN Ordering Facility: [facility] Address: [address] [place], [place] [address] Performed By: #### L [id number] #### [facility] CLIA [id number] [address] [place] [address] [place] Protein.monoclonal Elph [Mass/Vol] 0.71 g/dL High <=0.00 [facility] Comment on above: Order Comment: Speci men Type: BLOOD SPECIMEN Ordering Facility: [facility] Address: [address] Performed By: #### L [id number] #### [facility] CLIA [id number] [facility] STATES OF [facility] SPE STAFF REVIEW Reviewed by Donaldo pena MD, Ph.D ([id number]) Normal [facility] Comment on above: Order Comment: Speci men Type: BLOOD SPECIMEN Ordering Facility: [facility] Address: [address] Performed By: #### L [id number] #### [facility] CLIA [id number] [address] [place] [address] [place] Prot SerPl-mCncon 05-29-2023 Protein [Mass/Vol] 6.0 g/dL Low 6.3-8.0 [facility] Comment on above: Order Comment: Speci men Type: BLOOD SPECIMENOrdering Facility: [facility] Address: [address] Performed By: #### 2 885-2 ####[facility] [id number] [address] [place] CBC W Auto Differential pane l (Bld)on 03-06-2023 Basophils (Bld) [#/Vol] 0.05 10*3/uL Normal <0.11 [facility] Comment on above: Order Comment: Speci men Type: BLOOD SPECIMENOrdering Facility: [facility] Address: [address] [place] [address] Performed By: #### 5 7021-8 ####[facility]CLIA [id number] [place] [address] Basophils/100 WBC (Bld) 0.8 % Normal [facility] Comment on above: Order Comment: Speci men Type: BLOOD SPECIMENOrdering Facility: [facility] Address: [address] [place], [place] [address] Performed By: #### 5 7021-8 ####[facility]CLIA [id number] [place] [address] Differential cell count method Nom (Bld) Auto Normal [facility] Comment on above: Order Comment: Speci men Type: BLOOD SPECIMENOrdering Facility: [facility] Address: [address] [place] [address] Performed By: #### 5 7021-8 ####[facility] LABCLIA [id number] [place] [address] Eosinophils (Bld) [#/Vol] 0.47 10*3/uL High <0.46 [facility] Comment on above: Order Comment: Speci men Type: BLOOD SPECIMENOrdering Facility: [facility] Address: [address] [place] [address] Performed By: #### 5 7021-8 ####[facility] LABCLIA [id number] [place] [address] Eosinophils/100 WBC (Bld) 7.9 % Normal [facility] Comment on above: Order Comment: Speci men Type: BLOOD SPECIMENOrdering Facility: [facility] Address: [address] [place] [address] Performed By: #### 5 7021-8 ####[facility] LABCLIA [id number] [place] [address] Erythrocyte distribution width (RBC) [Ratio] 13.7 % Normal 11.5-15.0 [facility] Comment on above: Order Comment: Speci men Type: BLOOD SPECIMENOrdering Facility: [facility] Address: [address] [place] [address] Performed By: #### 5 7021-8 ####[facility] LABIA [id number] [place] [address] Hematocrit (Bld) [Volume fraction] 39.7 % Normal 39.0-51.0 [facility] Comment on above: Order Comment: Speci men Type: BLOOD SPECIMENOrdering Facility: [facility] Address: [address] [place] [address] Performed By: #### 5 7021-8 ####[facility] LABCLIA [id number] [place] [address] Hemoglobin (Bld) [Mass/Vol] 13.5 g/dL Normal 13.0-17.0 [facility] Comment on above: Order Comment: Speci men Type: BLOOD SPECIMENOrdering Facility: [facility] Address: [address] [place] [address] Performed By: #### 5 7021-8 ####[facility] LABCLIA [id number] [place] [address] Immature granulocytes (Bld) [#/Vol] 10*3/uL Normal <0.10 [facility] Comment on above: Order Comment: Speci men Type: BLOOD SPECIMENOrdering Facility: [facility] Address: [address] [place] [address] Performed By: #### 5 7021-8 ####[facility] LABCLIA [id number] [place] [address] Immature granulocytes/100 WBC (Bld) 0.3 % Normal [facility] Comment on above: Order Comment: Speci men Type: BLOOD SPECIMENOrdering Facility: [facility] Address: [address] [place] [address] Performed By: #### 5 7021-8 ####[facility] LABCLIA [id number] [place] [address] Lymphocytes (Bld) [#/Vol] 0.95 10*3/uL Low 1.00-4.00 [facility] Comment on above: Order Comment: Speci men Type: BLOOD SPECIMENOrdering Facility: [facility] Address: [address] [place] [address] Performed By: #### 5 7021-8 ####[facility] LABCLIA [id number] [place] [address] Lymphocytes/100 WBC (Bld) 16.0 % Normal [facility] Comment on above: Order Comment: Speci men Type: BLOOD SPECIMENOrdering Facility: [facility] Address: [address] [place] [address] Performed By: #### 5 7021-8 ####[facility] LABCLIA [id number] [place] [address] MCH (RBC) [Entitic mass] 35.3 pg High 26.0-34.0 [facility] Comment on above: Order Comment: Speci men Type: BLOOD SPECIMENOrdering Facility: [facility] Address: [address] [place] [address] Performed By: #### 5 7021-8 ####[facility] LABCLIA [id number] [place] [address] MCHC (RBC) [Mass/Vol] 34.0 g/dL Normal 30.5-36.0 [facility] Comment on above: Order Comment: Speci men Type: BLOOD SPECIMENOrdering Facility: [facility] Address: [address] [place] [address] Performed By: #### 5 7021-8 ####[facility] LABCLIA [id number] [place] [address] MCV (RBC) [Entitic vol] 103.9 fL High 80.0-100.0 [facility] Comment on above: Order Comment: Speci men Type: BLOOD SPECIMENOrdering Facility: [facility] Address: [address] [place] [address] Performed By: #### 5 7021-8 ####[facility] LABIA [id number] [place] [address] Monocytes (Bld) [#/Vol] 0.83 10*3/uL Normal <0.87 [facility] Comment on above: Order Comment: Speci men Type: BLOOD SPECIMENOrdering Facility: [facility] Address: [address] [place] [address] Performed By: #### 5 7021-8 ####[facility] LABCLIA [id number] [place] [address] Monocytes/100 WBC (Bld) 14.0 % Normal [facility] Comment on above: Order Comment: Speci men Type: BLOOD SPECIMENOrdering Facility: [facility] Address: [address] [place] [address] Performed By: #### 5 7021-8 ####[facility] LABCLIA [id number] [place] [address] Neutrophils (Bld) [#/Vol] 3.61 10*3/uL Normal 1.45-7.50 [facility] Comment on above: Order Comment: Speci men Type: BLOOD SPECIMENOrdering Facility: [facility] Address: [address] [place] [address] Performed By: #### 5 7021-8 ####[facility] LABCLIA [id number] [place] [address] Neutrophils/100 WBC (Bld) 61.0 % Normal [facility] Comment on above: Order Comment: Speci men Type: BLOOD SPECIMENOrdering Facility: [facility] Address: [address] [place] [address] Performed By: #### 5 7021-8 ####[facility] LABCLIA [id number] [place] [address] Nucleated RBC (Bld) [#/Vol] 10*3/uL Normal <0.01 [facility] Comment on above: Order Comment: Speci men Type: BLOOD SPECIMENOrdering Facility: [facility] Address: [address] [place] [address] Performed By: #### 5 7021-8 ####[facility] LABCLIA [id number] [place] [address] Nucleated RBC/100 WBC (Bld) [Ratio] 0.0 /100 WBC Normal [facility] Comment on above: Order Comment: Speci men Type: BLOOD SPECIMENOrdering Facility: [facility] Address: [address] [place] [address] Performed By: #### 5 7021-8 ####[facility] LABCLIA [id number] [place] [address] Platelet mean volume (Bld) [Entitic vol] 10.5 fL Normal 9.0-12.7 [facility] Comment on above: Order Comment: Speci men Type: BLOOD SPECIMENOrdering Facility: [facility] Address: [address] [place] [address] Performed By: #### 5 7021-8 ####[facility] LABCLIA [id number] [place] [address] Platelets (Bld) [#/Vol] 162 10*3/uL Normal 150-400 [facility] Comment on above: Order Comment: Speci men Type: BLOOD SPECIMENOrdering Facility: [facility] Address: [address] [place] [address] Performed By: #### 5 7021-8 ####[facility] LABCLIA [id number] [place] [address] RBC (Bld) [#/Vol] 3.82 10*6/uL Low 4.20-6.00 [facility] Comment on above: Order Comment: Speci men Type: BLOOD SPECIMENOrdering Facility: [facility] Address: [address] [place], [place] [address] Performed By: #### 5 7021-8 ####[facility] LABIA [id number] [place] [address] WBC (Bld) [#/Vol] 5.93 10*3/uL Normal 3.70-11.00 [facility] Comment on above: Order Comment: Speci men Type: BLOOD SPECIMENOrdering Facility: [facility] Address: [address] [place], [place] [address] Performed By: #### 5 7021-8 ####[facility] [id number] [place] [address] CNOVSPon 03-06-2023 CNOVSP Visit (SP) Office (H EMASA) ZACH MANUEL ([id number]) 1945 M Date Time Provider Department 03/06/23 1:30 PM CLAUDIA WILSON During your visit today, we recorded the following information about you: Temperature Pulse Respiration Blood pressure 97.4 degrees 55/minute 16/minute 120/54 Weight Height 87.6 kg 1.753 m Claudia Wilson APRN.PASTORA 03/06/2023 1:58 PM Signed PATIENT NAME: Zach Manuel DATE: 03/06/2023 PRIMARY CARE PHYSICIAN: Dr. Hanna Mathias OTHER PHYSICIANS: Dr. Lewis, Dr. Martinez Portions of this encounter note have been copied from the note from 01/05/2022 and has been updated where appropriate, and reflect my current medical decision making from today. CC: This is a 77 year old male with a history of multiple myeloma, seen for scheduled follow-up. INTERIM HISTORY: Zach Manuel returns for follow-up. He remains on treatment with Revlimid 5 mg daily 21 days on and 7 days off plus Decadron 8 mg weekly. He is currently on week 3 of the cycle. There has been no significant medical changes since his last visit. He is tolerating treatment well. He denies any side effects from treatment. He denies any new areas of pain. He denies fevers, chills, night sweats and signs/symptoms of infection. No bleeding or abnormal bruising. 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 Overall, he is doing well with no particular complaints today. MEDICATIONS: lenalidomide (REVLIMID) 5 mg capsule Take 1 capsule by mouth daily for 21 days on and 7 days off. dexAMETHasone (DECADRON) 4 mg tablet TAKE 2 TABLETS BY MOUTH ONCE A WEEK JARDIANCE 10 mg tablet Take 10 mg by mouth once daily. DEXILANT 60 mg CpDM Take 1 capsule by mouth once daily. liothyronine (CYTOMEL) 5 mcg tablet metroNIDAZOLE (FLAGYL) 500 mg tablet vancomycin (VANCOCIN) 250 mg capsule glyBURIDE micronized (GLYNASE) 3 mg tablet pioglitazone (ACTOS) 30 mg tablet tobramycin-dexamethasone (TOBRADEX) ophthalmic suspension INSTILL 2 DROPS INTO AFFECTED EYE 4 TIMES DAILY dykytmpl-ywmnxmihj-kqndeizn tisone (CORTISPORIN) otic solution INSTILL 3 4 DROPS IN AFFECTED EAR FOUR TIMES DAILY pantoprazole DR (PROTONIX) 40 mg tablet Take 40 mg by mouth once daily. BREO ELLIPTA 100-25 mcg/dose inhaler 1 Inhalation once daily. fenofibrate nanocrystallized (TRICOR) 145 mg tablet Take 145 mg by mouth once daily. oxyCODONE IR (ROXICODONE) 10 mg tab 10 mg as needed. levothyroxine (SYNTHROID) 50 mcg tablet Take 50 mcg by mouth once daily. MELOXICAM 15 mg tablet Take 15 mg by mouth as needed. GLUCOPHAGE 500 MG TAB Take 1,000 mg by mouth daily with breakfast. 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 HEENT: Negative for frequent or significant headaches. No changes in hearing or vision, no nose bleeds or other nasal problems. Respiratory: Negative for cough, wheezing or shortness of breath. Cardiovascular: Negative for chest pain, leg swelling or palpitations. GI: Negative for abdominal discomfort, blood in stools or black stools or change in bowel habits. : No history of dysuria, frequency or incontinence. Musculoskeletal: Right leg pain status post fracture- persistent. Skin: Negative for lesions, rash and itching. Hematology/Lymphology: Negative for prolonged bleeding, bruising easily or swollen nodes. Neuro: No history of headaches, syncope, paralysis, seizures or tremors. PHYSICAL EXAM: Vitals: BP 120/54 Pulse (!) 55 Temp 36.3 ?C (97.4 ?F) (Temporal) Resp 16 Ht 175.3 cm (5' 9.02 ) Wt 87.6 kg (193 lb 3.2 oz) SpO2 100% BMI 28.52 kg/m? ECOG 0 Exam limited to gross visualization where appropriate due to COVID-19. Gen.: This is an age-appropriate patient in no acute distress. Head: Appears atraumatic with no visible lesions. Eyes: Pupils equally round and reactive to light, extraocular muscles are intact. Neck: Supple. Mouth: Mucous membranes appeared to be moist. Respiratory: Appears to be respiring comfortably. Neurologic: Nonfocal to gross visualization. Alert and oriented ?3. (more content not included)... Normal [facility] Comprehensive metabolic 2000 panelon 03-06-2023 Albumin [Mass/Vol] 3.8 g/dL Low 3.9-4.9 [facility] Comment on above: Order Comment: Michelle bueno Type: BLOOD SPECIMEN Ordering Facility: [facility] Address: [address] [place] [address] Performed By: #### 2 857-1 #### [facility] CLIA [id number] [address] [place] [address] [place] ALP [Catalytic activity/Vol] 84 U/L Normal 38-113 [facility] Comment on above: Order Comment: Speci men Type: BLOOD SPECIMEN Ordering Facility: [facility] Address: [address] [place] [address] Performed By: #### 2 857-1 #### [facility] CLIA [id number] [address] [id number] [address] [place] ALT [Catalytic activity/Vol] 12 U/L Normal 10-54 [facility] Comment on above: Order Comment: Speci men Type: BLOOD SPECIMEN Ordering Facility: [facility] Address: [address] Performed By: #### 2 857-1 #### [facility] CLIA [id number] [address] [place] [address] [place] Anion gap [Moles/Vol] 8 mmol/L Low 9-18 [facility] Comment on above: Order Comment: Speci men Type: BLOOD SPECIMEN Ordering Facility: [facility] Address: [address] Performed By: #### 2 857-1 #### [facility] CLIA [id number] [address] [place] [address] [place] AST [Catalytic activity/Vol] 13 U/L Low 14-40 [facility] Comment on above: Order Comment: Speci men Type: BLOOD SPECIMEN Ordering Facility: [facility] Address: [address] Performed By: #### 2 857-1 #### [facility] CLIA [id number] [address] [place] [address] [place] Bilirubin [Mass/Vol] 0.9 mg/dL Normal 0.2-1.3 [facility] Comment on above: Order Comment: Speci men Type: BLOOD SPECIMEN Ordering Facility: [facility] Address: [address] Performed By: #### 2 857-1 #### [facility] CLIA [id number] [address] [place] [address] [place] Calcium [Mass/Vol] 8.8 mg/dL Normal 8.5-10.2 [facility] Comment on above: Order Comment: Speci men Type: BLOOD SPECIMEN Ordering Facility: [facility] Address: [address] Performed By: #### 2 857-1 #### [facility] CLIA [id number] [address] [place] [address] [place] Chloride [Moles/Vol] 105 mmol/L Normal 97-105 [facility] Comment on above: Order Comment: Speci men Type: BLOOD SPECIMEN Ordering Facility: [facility] Address: [address] [place] [address] Performed By: #### 2 857-1 #### [facility] CLIA [id number] [address] [place] [address] [place] CO2 [Moles/Vol] 27 mmol/L Normal 22-30 [facility] Comment on above: Order Comment: Speci men Type: BLOOD SPECIMEN Ordering Facility: [facility] Address: [address] [place] [address] Performed By: #### 2 857-1 #### [facility] CLIA [id number] [facility] [place] [address] [place] Creatinine [Mass/Vol] 1.46 mg/dL High 0.73-1.22 [facility] Comment on above: Order Comment: Speci men Type: BLOOD SPECIMEN Ordering Facility: [facility] Address: [address] [place] [address] Performed By: #### 2 857-1 #### [facility] CLIA [id number] [address] [place] [address] [place] ESTIMATED GLOMERULAR FILTRATION RATE 50 mL/min/1.73m??? Low >=60 [facility] Comment on above: Order Comment: Speci men Type: BLOOD SPECIMEN Ordering Facility: [facility] Address: [address] [place] [address] Result Comment: Chanda mated Glomerular Filtration Rate (eGFR) is calculated using the 2020 CKD-EPI creatinine equation. This equation utilizes serum creatinine, sex, and age as parameters. The creatinine assay has traceable calibration to isotope dilution-mass spectrometry. Refer to KDIGO guidelines for clinical interpretation. In patients with unstable renal function, e.g. those with acute kidney injury, the eGFR may not accurately reflect actual GFR. Performed By: #### 2 857-1 #### [facility] CLIA [id number] [address] [place] [address] [place] Glucose [Mass/Vol] 151 mg/dL High 74-99 [facility] Comment on above: Order Comment: Speci men Type: BLOOD SPECIMEN Ordering Facility: [facility] Address: [address] [place], [place] [id number] Result Comment: The [place] Diabetes Association (ADA) provides guidance for cutoff values for fasting glucose and random glucose. The ADA defines fasting as no caloric intake for at least 8 hours. Fasting plasma glucose results between 100 to 125 mg/dL indicate increased risk for diabetes (prediabetes). Fasting plasma glucose results greater than or equal to 126 mg/dL meet the criteria for diagnosis of diabetes. In the absence of unequivocal hyperglycemia, results should be confirmed by repeat testing. In a patient with classic symptoms of hyperglycemia or hyperglycemic crisis, random plasma glucose results greater than or equal to 200 mg/dL meet the criteria for diagnosis of diabetes. Reference: Standards of Medical Care in Diabetes 2016, [place] Diabetes Association. Diabetes Care. 2016.39(Suppl 1). Performed By: #### 2 857-1 #### [facility] CLIA [id number] [address] [place] [address] [place] Potassium [Moles/Vol] 4.3 mmol/L Normal 3.7-5.1 [facility] Comment on above: Order Comment: Michelle men Type: BLOOD SPECIMEN Ordering Facility: [facility] Address: [address] [place] [phone] Performed By: #### 2 857-1 #### [facility] CLIA [id number] [address] [place] [address] [place] Protein [Mass/Vol] 6.5 g/dL Normal 6.3-8.0 [facility] Comment on above: Order Comment: Vickiei men Type: BLOOD SPECIMEN Ordering Facility: [facility] Address: [address] Performed By: #### 2 857-1 #### [facility] CLIA [id number] [facility] [place] [address] [place] Sodium [Moles/Vol] 140 mmol/L Normal 136-144 [facility] Comment on above: Order Comment: Speci men Type: BLOOD SPECIMEN Ordering Facility: [facility] Address: [address] [address] Performed By: #### 2 857-1 #### [facility] CLIA [id number] [place] Urea nitrogen [Mass/Vol] 20 mg/dL Normal 9-24 [facility] Comment on above: Order Comment: Speci men Type: BLOOD SPECIMEN Ordering Facility: [facility] Address: [address] [address] Performed By: #### 2 857-1 #### [facility] CLIA [id number] [address] [place] [address] [place] IMMUNOFIXATION SCREEN, SERUM on 03-06-2023 INTERPRETATION (MPA) Atypical restricted bands are present in the IgG and kappa regions. Consistent with IgG kappa monoclonal gammopathy. Normal [facility] Comment on above: Order Comment: Speci men Type: BLOOD SPECIMENOrdering Facility: [facility] Address: [address] Performed By: #### I FES ####[facility] [id number] [address] [place] MPA RESULT M protein is present. Abnormal No M p rotein is identified. [facility] Comment on above: Order Comment: Speci men Type: BLOOD SPECIMENOrdering Facility: [facility] Address: [address] Performed By: #### I FESC ####[facility] [id number] [address] [place] STAFF REVIEW (MPA) Reviewed by Donaldo pena MD, Ph.D ([id number]) Normal [facility] Comment on above: Order Comment: Speci men Type: BLOOD SPECIMENOrdering Facility: [facility] Address: [address] [place] [address] Performed By: #### I FES ####[facility] [id number] [place] [address] [place] IMMUNOGLOBULINS GAMon 2022 IgA [Mass/Vol] 79 mg/dL Normal 70-400 [facility] Comment on above: Order Comment: Speci men Type: BLOOD SPECIMENOrdering Facility: [facility] Address: [address] [place] [address] Performed By: #### S ERIMM ####[facility] [id number] [address] [place] IgG [Mass/Vol] 1193 mg/dL Normal 700-1600 [facility] Comment on above: Order Comment: Speci men Type: BLOOD SPECIMENOrdering Facility: [facility] Address: [address] [place] [address] Performed By: #### S ERIMM ####[facility] [id number] [place] [address] [place] IgM [Mass/Vol] 17 mg/dL Low 40-230 [facility] Comment on above: Order Comment: Speci men Type: BLOOD SPECIMENOrdering Facility: [facility] Address: [address] [place] [address] Performed By: #### S ERIMM ####[facility] [id number] [place] [address] [place] KAPPA/DANIELS,FREE,SERon 2022 Immunoglobulin light chains.kappa.free (S) [Mass/Vol] 48.0 mg/L High 3.3-19.4 [facility] Comment on above: Order Comment: Speci men Type: BLOOD SPECIMENOrdering Facility: [facility] Address: [address] [place] [address] Result Comment: Rare ly, increased serum free light chains levels may not be detected or accurately quantified due to prozone phenomenon or in high viscosity samples using this immunoturbidimetric assay. Correlation with other laboratory results and clinical findings is recommended. The [place] Free Light Chain was performed using the Binding Site Optilite immunoturbidimetric method. Result obtained with different assay methods or kits cannot be used interchangeably. Performed By: #### K LFRS ####[facility] [id number] [address] [place] Immunoglobulin light chains.kappa/Immun oglobulin light chains.lambda (S) [Mass ratio] 2.16 High 0.26-1.65 [facility] Comment on above: Order Comment: Speci men Type: BLOOD SPECIMENOrdering Facility: [facility] Address: [address] [place] [address] Performed By: #### K LFRS ####[facility] [id number] [address] [place] Immunoglobulin light chains.lambda.free [Mass/Vol] 22.2 mg/L Normal 5.7-26.3 [facility] Comment on above: Order Comment: Speci men Type: BLOOD SPECIMENOrdering Facility: [facility] Address: [address] [place] [address] Result Comment: Rare ly, increased serum free light chains levels may not be detected or accurately quantified due to prozone phenomenon or in high viscosity samples using this immunoturbidimetric assay. Correlation with other laboratory results and clinical findings is recommended. The Lambda Free Light Chain was performed using the Binding Site Optilite immunoturbidimetric method. Result obtained with different assay methods or kits cannot be used interchangeably. Performed By: #### K LFRS ####[facility] [id number] [address] OF [facility] PROTEIN ELECTROPHORESIS SERU M WITH TOÑITO (P)on 03-06-2023 Albumin [Mass/Vol] 3.76 g/dL Normal 3.43-5.41 [facility] Comment on above: Order Comment: Speci men Type: BLOOD SPECIMENOrdering Facility: [facility] Address: [address] [place] [address] Performed By: #### L [id number] ####[facility] [id number] [address] [place] Alpha 1 globulin Elph [Mass/Vol] 0.26 g/dL Normal 0.18-0.43 [facility] Comment on above: Order Comment: Speci men Type: BLOOD SPECIMENOrdering Facility: [facility] Address: [address] [place] [address] Performed By: #### L [id number] ####[facility] [id number] [address] Alpha 2 globulin Elph [Mass/Vol] 0.73 g/dL Normal 0.42-0.98 [facility] Comment on above: Order Comment: Speci men Type: BLOOD SPECIMENOrdering Facility: [facility] Address: [address] [place] [address] Performed By: #### L [id number] ####[facility] [id number] [address] [place] Beta globulin Elph [Mass/Vol] 0.64 g/dL Normal 0.61-1.17 [facility] Comment on above: Order Comment: Speci men Type: BLOOD SPECIMENOrdering Facility: [facility] Address: [address] [place] [address] Performed By: #### L [id number] ####[facility] [id number] [address] [place] COMMENT (SERUM PROT ELECTRO) Monoclonal Protein analysis (immunofixation) is not indicated. Normal [facility] Comment on above: Order Comment: Speci men Type: BLOOD SPECIMENOrdering Facility: [facility] Address: [address] [place] [address] Performed By: #### L [id number] ####[facility] [id number] [address] Gamma globulin Elph [Mass/Vol] 1.11 g/dL Normal 0.53-1.51 [facility] Comment on above: Order Comment: Speci men Type: BLOOD SPECIMENOrdering Facility: [facility] Address: [address] [place] [address] Performed By: #### L [id number] ####[facility] [id number] [address] INTERPRETATION COMMENT FOR PROTEIN ELECTROPHORESIS See separate immunofixation report for characterization of monoclonal gammopathy. Normal [facility] Comment on above: Order Comment: Speci men Type: BLOOD SPECIMENOrdering Facility: [facility] Address: [address] [place] [address] Performed By: #### L [id number] ####[facility] [id number] [address] M-PROTEIN LOCATION Gamma Fraction 1 Normal [facility] Comment on above: Order Comment: Speci men Type: BLOOD SPECIMENOrdering Facility: [facility] Address: [address] [place] [address] Performed By: #### L [id number] ####[facility] [id number] [address] Protein Fractions [Interp] An M protein is identified on protein electrophoresis. Abnormal No definitive M protein is identified on protein electrophore sis. [facility] Comment on above: Order Comment: Speci men Type: BLOOD SPECIMENOrdering Facility: [facility] Address: [address] [place] [address] Performed By: #### L [id number] ####[facility] [id number] [address] [place] Protein.monoclonal Elph [Mass/Vol] 0.78 g/dL High <=0.00 [facility] Comment on above: Order Comment: Speci men Type: BLOOD SPECIMENOrdering Facility: [facility] Address: [address] [place] [address] Performed By: #### L [id number] ####[facility] [id number] [address] [place] SPE STAFF REVIEW Reviewed by Donaldo pena MD, Ph.D ([id number]) Normal [facility] Comment on above: Order Comment: Speci men Type: BLOOD SPECIMENOrdering Facility: [facility] Address: [address] [place] [address] Performed By: #### L [id number] ####[facility]IA [id number] [place] [address] [place] [facility] Prostate specific Ag [Mass/Vol] 3.58 ng/mL High <2.60 [facility] Comment on above: Order Comment: Speci men Type: BLOOD SPECIMEN Ordering Facility: [facility] Address: [address] [place] [address] Result Comment: Tota l PSA test methodology used is the Electrochemiluminescence Immunoassay by [employer]. Total PSA values by differing methodologies cannot be interchanged. For an individual patient, the significance of a PSA level should be interpreted in a broad clinical context, including age, race, family history, digital rectal exam, prostate size, results of prior testing (prostate biopsy, free PSA, PCA3), and use of 5-alpha reductase inhibitors. Considering the high incidence of asymptomatic cancer in the general population that may not pose an ultimate risk to a patient, the decision to recommend urological evaluation or prostate biopsy should be individualized after consideration of all these factors. REFERENCE: Krys Marques M.D., M.P.H., Bimal Amor M.D., Ph.D., Yves Kyle M.D., Medina Alvarado, M.P.H., Meredith Hargrove, ScDeepak. Effect of Verification Bias on Screening for Prostate Cancer by Measurement of Prostatic Specific Antigen. N Engl J Med 2003,349:335-42. Performed By: #### 2 857-1 #### [facility] CLIA [id number] [address] [place] [id number] [place] Prot SerPl-mCncon 03-06-2023 Protein [Mass/Vol] 6.1 g/dL Low 6.3-8.0 [facility] Comment on above: Order Comment: Speci men Type: BLOOD SPECIMENOrdering Facility: [facility] Address: [address] [address] Performed By: #### 2 885-2 ####[facility] [id number] [facility] [place] [address] [place] PSA, FREE AND TOTAL RATIOon 08-29-2022 % Free PSA 25.9 % Normal [facility] Comment on above: Result Comment: The table below lists the probability of prostate cancer for men with non-suspicious RADHA results and total PSA between 4 and 10 ng/mL, by patient age (Judah et al, SELENE 1998, 279:1542). % Free PSA 50-64 yr 65-75 yr 0.00-10.00% 56% 55% 10.01-15.00% 24% 35% 15.01-20.00% 17% 23% 20.01-25.00% 10% 20% >25.00% 5% 9% Please note: Judah et al did not make specific recommendations regarding the use of percent free PSA for any other population of men. Performed By: #### P SAFREE #### [facility] [address] [address] [address] Tigre Gant Prostate specific Ag [Mass/Vol] 4.4 ng/mL Critically high 0.0-4.0 [facility] Comment on above: Result Comment: Roch linh ECLIA methodology. . According to the [place] [employer], Serum PSA should decrease and remain at undetectable levels after radical prostatectomy. The AUA defines biochemical recurrence as an initial PSA value 0.2 ng/mL or greater followed by a subsequent confirmatory PSA value 0.2 ng/mL or greater. Values obtained with different assay methods or kits cannot be used interchangeably. Results cannot be interpreted as absolute evidence of the presence or absence of malignant disease. Performed By: #### P SAFREE #### [facility] [address] [address] [address] Tigre Gant PSA, Free 1.14 ng/mL Normal N/A [facility] Comment on above: Result Comment: Renee melton ECLIA methodology. Performed By: #### P SAFREE #### [facility] [address] [address] [address] Tigre Gant PSA, FREE AND TOTAL RATIOon 03-16-2022 % Free PSA 19.1 % Normal [facility] Comment on above: Result Comment: The table below lists the probability of prostate cancer for men with non-suspicious RADHA results and total PSA between 4 and 10 ng/mL, by patient age (Judah et al, SELENE 1998, 279:1542). % Free PSA 50-64 yr 65-75 yr 0.00-10.00% 56% 55% 10.01-15.00% 24% 35% 15.01-20.00% 17% 23% 20.01-25.00% 10% 20% >25.00% 5% 9% Please note: Judah et al did not make specific recommendations regarding the use of percent free PSA for any other population of men. Performed By: #### A 1C #### [facility] [address] [place], [place] [address] Dr. Tigre Gant PSA, Free 1.03 ng/mL Normal N/A [facility] Comment on above: Result Comment: Roch linh ECLIA methodology. Performed By: #### A 1C #### [facility] [address] [address] [address] Tigre Gant Prostate specific Ag [Mass/Vol] 5.4 ng/mL Critically high 0.0-4.0 [facility] Comment on above: Result Comment: Renee JONES methodology. . According to the [place] [employer], Serum PSA should decrease and remain at undetectable levels after radical prostatectomy. The AUA defines biochemical recurrence as an initial PSA value 0.2 ng/mL or greater followed by a subsequent confirmatory PSA value 0.2 ng/mL or greater. Values obtained with different assay methods or kits cannot be used interchangeably. Results cannot be interpreted as absolute evidence of the presence or absence of malignant disease. Performed By: #### A 1C #### [facility] [address] [place] [address] Dr. Tigre Gant CBC AUTO DIFFon 03-14-2022 BASO # 0.1 103/ul Normal 0.0-0.1 [facility] Comment on above: Performed By: #### C BC #### [facility] [address] [place] [address] Dr. Tigre Gant Basophils/100 WBC (Bld) 2.6 % Critically high 0.2-2.0 [facility] Comment on above: Performed By: #### C BC #### [facility] [address] [place] [address] Dr. Tigre Gant EO # 0.4 103/ul Normal 0.0-0.7 [facility] Comment on above: Performed By: #### C BC #### [facility] [address] [place] [address] Dr. Tigre Gant Eosinophils/100 WBC (Bld) 7.7 % Critically high 0.9-7.0 [facility] Comment on above: Performed By: #### C BC #### [facility] [address] [place] [address] Dr. Tigre Gant Erythrocyte distribution width (RBC) [Ratio] 14.6 % Normal 11.0-15.0 [facility] Comment on above: Performed By: #### C BC #### [facility] [address] [place] [address] Dr. Tigre Gant Hematocrit (Bld) [Volume fraction] 39.0 % Critically low 42.0-54.0 [facility] Comment on above: Performed By: #### C BC #### [facility] [address] [place] [address] Dr. Tigre Gant Hemoglobin (Bld) [Mass/Vol] 12.9 g/dL Critically low 14.0-18.0 [facility] Comment on above: Performed By: #### C BC #### [facility] [address] [place] [address] Dr. Tigre Gant IG # 0.03 10e3/ul Normal 0.00-0.03 [facility] Comment on above: Performed By: #### C BC #### [facility] [address] [place] [address] Dr. Tigre Gant IG % 0.6 % Critically high 0.0-0.5 [facility] Comment on above: Performed By: #### C BC #### [facility] [address] [place] [address] Dr. Tigre Gant LYMPH # 1.0 103/ul Critically low 1.2-3.8 [facility] Comment on above: Performed By: #### C BC #### [facility] [address] [place] [address] Dr. Tigre Gant Lymphocytes/100 WBC (Bld) 19.9 % Critically low 20.5-60.0 [facility] Comment on above: Performed By: #### C BC #### [facility] [address] [place] [address] Dr. Tigre Gant MANUAL DIFF REQ NO Normal [facility] Comment on above: Performed By: #### C BC #### [facility] [address] [place] [address] Dr. Tigre Gant MCH (RBC) [Entitic mass] 33.7 pg Normal 25.9-34.0 [facility] Comment on above: Performed By: #### C BC #### [facility] [address] [place] [address] Dr. Tigre Gant MCHC (RBC) [Mass/Vol] 33.1 g/dL Normal 29.9-35.2 [facility] Comment on above: Performed By: #### C BC #### [facility] [id number] Tigre Gant MCV (RBC) [Entitic vol] 101.8 fL Critically high 80.0-94.0 [facility] Comment on above: Performed By: #### C BC #### [facility] [id number] Tigre Gant MONO # 0.7 103/ul Normal 0.3-0.8 [facility] Comment on above: Performed By: #### C BC #### [facility] [address] [address] [address] Tigre Gant Monocytes/100 WBC (Bld) 13.6 % Critically high 1.7-12.0 [facility] Comment on above: Performed By: #### C BC #### [facility] [address] [address] [address] Tigre Gant NEUT # 2.7 103/ul Normal 1.4-6.5 [facility] Comment on above: Performed By: #### C BC #### [facility] [address] [address] [address] Tigre Gant Neutrophils/100 WBC (Bld) 55.6 % Normal 43.0-75.0 [facility] Comment on above: Performed By: #### C BC #### [facility] [address] [address] [address] Tigre Gant Platelet mean volume (Bld) [Entitic vol] 10.7 fL Normal 9.5-13.5 [facility] Comment on above: Performed By: #### C BC #### [facility] [address] [address] [address] Tigre Gant PLT 209 103/ul Normal 150-450 [facility] Comment on above: Performed By: #### C BC #### [facility] [id number] Tigre Gant RBC 3.83 106/ul Critically low 4.70-6.10 [facility] Comment on above: Performed By: #### C BC #### [facility] [address] [address] [address] Tigre Gant WBC 4.9 103/ul Normal 4.0-11.0 [facility] Comment on above: Performed By: #### C BC #### [facility] [address] [address] [address] Tigre Gant FREE T3on 03-14-2022 FREE T3 2.60 pg/mlL Normal 2.18-3.98 [facility] Comment on above: Performed By: #### A 1C #### [facility] [address] [place] [address] Dr. Tigre Gant GLYCOHEMOGLOBIN A1Con 2021 ADA RECOMMENDATION SEE BELOW Normal [facility] Comment on above: Result Comment: ADA RECOMMENDED LIMIT 4.0 - 6.0 ADA THERAPEUTIC TARGET < 7.0 ACTION SUGGESTED > 7.0 Performed By: #### A 1C #### [facility] [address] [place] [address] Dr. Tigre Gant Glucose [Mass/Vol] 189 mg/dL Normal [facility] Comment on above: Performed By: #### A 1C #### [facility] [address] [place] [address] Dr. Tigre Gant HbA1c (Bld) [Mass fraction] 8.2 % Critically high 4.5-6.2 [facility] Comment on above: Performed By: #### A 1C #### [facility] [address] [place] [address] Dr. Tigre Gant LIPID PROFILEon 03-14-2022 CHOL-HDL RATIO NORM SEE BELOW Normal [facility] Comment on above: Result Comment: 3.3 - 4.4 LOW RISK 4.4 - 7.1 AVERAGE RISK 7.1 - 11.0 MODERATE RISK >11.0 HIGH RISK Performed By: #### C MP, TSH, LIPID, FT3, T4 #### [facility] [address] [place] [address] Dr. Tigre Gant Cholesterol [Mass/Vol] 157 mg/dL Normal <=200 [facility] Comment on above: Performed By: #### C MP, TSH, LIPID, FT3, T4 #### [facility] [address] [address] [address] Tigre Gant Cholesterol in HDL [Mass/Vol] 62 mg/dL Critically high 40-60 [facility] Comment on above: Performed By: #### C MP, TSH, LIPID, FT3, T4 #### [facility] [address] [address] [address] Tigre Gant Cholesterol in LDL [Mass/Vol] 62.8 mg/dL Normal [facility] Comment on above: Performed By: #### C MP, TSH, LIPID, FT3, T4 #### [facility] [address] [address] [address] Tigre Gant Cholesterol.total/ Cholesterol in HDL [Mass ratio] 2.5 {ratio} Normal [facility] Comment on above: Performed By: #### C MP, TSH, LIPID, FT3, T4 #### [facility] [address] [place] [address] Dr. Tigre Gant HDL NORMAL > or = 60 mg/dl - LO W CARDIOVASCULAR RISK <40 mg/dl - HIGH CARDIOVASCULAR RISK Normal [facility] Comment on above: Performed By: #### C MP, TSH, LIPID, FT3, T4 #### [facility] [address] [place] [address] Dr. Tigre Gant LDL CALC NORMAL SEE BELOW Normal [facility] Comment on above: Result Comment: <100 mg/dl OPTIMAL 100 - 129 mg/dl NEAR OR ABOVE OPTIMAL 130 - 159 mg/dl BORDERLINE HIGH 160 - 189 mg/dl HIGH >190 mg/dl VERY HIGH Performed By: #### C MP, TSH, LIPID, FT3, T4 #### [facility] [address] [place] [address] Dr. Tigre Gant Triglyceride [Mass/Vol] 161 mg/dL Critically high <=150 [facility] Comment on above: Performed By: #### C MP, TSH, LIPID, FT3, T4 #### [facility] [address] [address] [address] Tigre Gant VLDL CALC 32.2 mg/dL Normal [facility] Comment on above: Performed By: #### C MP, TSH, LIPID, FT3, T4 #### [facility] [address] [place] [address] Dr. Tigre Gant PROF 14(COMP METB)on 022 Albumin [Mass/Vol] 3.5 g/dL Normal 3.4-5.0 [facility] Comment on above: Performed By: #### C MP, TSH, LIPID, FT3, T4 #### [facility] [address] [place] [address] Dr. Tigre Gant Albumin/Globulin [Mass ratio] 1.1 {ratio} Normal [facility] Comment on above: Performed By: #### C MP, TSH, LIPID, FT3, T4 #### [facility] [address] [place] [address] Dr. Tigre Gant ALP [Catalytic activity/Vol] 67 U/L Normal 46-116 [facility] Comment on above: Performed By: #### C MP, TSH, LIPID, FT3, T4 #### [facility] [address] [place] [address] Dr. Tigre Gant ALT [Catalytic activity/Vol] 17 U/L Normal 16-63 [facility] Comment on above: Performed By: #### C MP, TSH, LIPID, FT3, T4 #### [facility] [address] [place] [address] Dr. Tigre Gant Anion gap [Moles/Vol] 14.6 mmol/L Normal [facility] Comment on above: Performed By: #### C MP, TSH, LIPID, FT3, T4 #### [facility] [address] [place] [address] Dr. Tigre Gant AST [Catalytic activity/Vol] 16 U/L Normal 15-37 [facility] Comment on above: Performed By: #### C MP, TSH, LIPID, FT3, T4 #### [facility] [address] [place] [address] Dr. Tigre Gant Bilirubin [Mass/Vol] 1.2 mg/dL Critically high 0.2-1.0 [facility] Comment on above: Performed By: #### C MP, TSH, LIPID, FT3, T4 #### [facility] [address] [place] [address] Dr. Tigre Gant Calcium [Mass/Vol] 7.8 mg/dL Critically low 8.5-10.1 [facility] Comment on above: Performed By: #### C MP, TSH, LIPID, FT3, T4 #### [facility] [address] [place] [address] Dr. Tigre Gant Chloride [Moles/Vol] 106 mmol/L Normal 98-107 [facility] Comment on above: Performed By: #### C MP, TSH, LIPID, FT3, T4 #### [facility] [address] [place] [address] Dr. Tigre Gant CO2 [Moles/Vol] 26.5 mmol/L Normal 21.0-32.0 [facility] Comment on above: Performed By: #### C MP, TSH, LIPID, FT3, T4 #### [facility] [address] [place] [address] Dr. Tigre Gant Creatinine [Mass/Vol] 1.48 mg/dL Critically high 0.70-1.30 [facility] Comment on above: Performed By: #### C MP, TSH, LIPID, FT3, T4 #### [facility] [address] [place] [address] Dr. Tigre Gant EGFR-AF CANADIAN 56 mL/min/1.73m2 Critically low >=60 [facility] Comment on above: Performed By: #### C MP, TSH, LIPID, FT3, T4 #### [facility] [address] [place] [address] Dr. Tigre Gant EGFR-NON AF CANADIAN 46 mL/min/1.73m2 Critically low >=60 [facility] Comment on above: Performed By: #### C MP, TSH, LIPID, FT3, T4 #### [facility] [address] [place] [address] Dr. Tigre Gant Globulin (S) [Mass/Vol] 3.3 g/dL Normal [facility] Comment on above: Performed By: #### C MP, TSH, LIPID, FT3, T4 #### [facility] [address] [place] [address] Dr. Tigre Gant Glucose [Mass/Vol] 99 mg/dL Normal 74-106 [facility] Comment on above: Performed By: #### C MP, TSH, LIPID, FT3, T4 #### [facility] [address] [place] [address] Dr. Tigre Gant Potassium [Moles/Vol] 4.1 mmol/L Normal 3.5-5.1 [facility] Comment on above: Performed By: #### C MP, TSH, LIPID, FT3, T4 #### [facility] [address] [place] [address] Dr. Tigre Gant Protein [Mass/Vol] 6.8 g/dL Normal 6.4-8.2 [facility] Comment on above: Performed By: #### C MP, TSH, LIPID, FT3, T4 #### [facility] [address] [place] [address] Dr. Tigre aGnt Sodium [Moles/Vol] 143 mmol/L Normal 136-145 [facility] Comment on above: Performed By: #### C MP, TSH, LIPID, FT3, T4 #### [facility] [address] [place] [address] Dr. Tigre Gant Urea nitrogen [Mass/Vol] 17.0 mg/dL Normal 7.0-18.0 [facility] Comment on above: Performed By: #### C MP, TSH, LIPID, FT3, T4 #### [facility] [address] [place] [address] Dr. Tigre Gant Urea nitrogen/Creatinin e [Mass ratio] 11.5 mg/mg Normal [facility] Comment on above: Performed By: #### C MP, TSH, LIPID, FT3, T4 #### [facility] [address] [place] [address] Dr. Tigre Gant T4on 03-14-2022 T4 [Mass/Vol] 6.30 ug/dL Normal 4.50-12.10 [facility] Comment on above: Performed By: #### C MP, TSH, LIPID, FT3, T4 #### [facility] [address], [place] [address] Dr. Tigre Gant TSHon 03-14-2022 TSH 3.904 uIU/mL Critically high 0.358-3.740 [facility] Comment on above: Performed By: #### C MP, TSH, LIPID, FT3, T4 #### [facility] [address], [place] [address] Dr. Tigre Gant Ambulatory Visit Summaryon 0 12-26-2021 Ambulatory Visit Summary ZACH MANUEL :1945 Visit Date:12/26/2021 Ambulatory Visit Instructions Your Diagnosis BPH with urinary obstruction Elevated PSA Family history of prostate cancer Tests Performed Urnls Dip Stick Auto w/o Microscopy POC 81986 Your Care Team Attending Physician - Roxana LEWIS MD Primary Care Physician - Hanna Mathias MD This Is Your Medications List Contact prescribing physician if questions or concerns Misc Prescription (tumeric) dexamethasone (dexamethasone 4 mg Tab) fenofibrate (TriCor) glyBURIDE lenalidomide (Revlimid 10 mg oral capsule) magnesium aspartate metformin oxycodone pantoprazole pioglitazone (Actos) Procedures Performed artificial implant, Cholecystectomy, Colectomy, Colonoscopy, Hernia, Procedure on back, Tonsillectomy. Discharge Vitals Heart Rate (Peripheral) 75 Blood Pressure 136/82 Height 176 cm Height 176.0 cm Weight 95 kg Weight 95.0 kg BMI 30.67 What to do next You Need to Schedule the Following Appointments Follow Up with JOSHUA MONTELONGO, Roxana Rodriguez, JOSE E When: Where: [facility] [address] [place] [address]- [phone] Medications What How Much When Instructions Unchanged dexamethasone (dexamethasone 4 mg Tab) By Mouth 2 times a day Contact prescribing physician if questions or concerns Unchanged fenofibrate (TriCor) By Mouth Every day Contact prescribing physician if questions or concerns Unchanged glyBURIDE By Mouth Every day Contact prescribing physician if questions or concerns Unchanged lenalidomide (Revlimid 10 mg oral capsule) 1 Capsules By Mouth Every day (do not break, chew, or open capsules) Contact prescribing physician if questions or concerns Unchanged magnesium aspartate By Mouth 2 times a day Contact prescribing physician if questions or concerns Unchanged metformin By Mouth Contact prescribing physician if questions or concerns Unchanged Misc Prescription (tumeric) 0 Contact prescribing physician if questions or concerns Unchanged oxycodone By Mouth Contact prescribing physician if questions or concerns Unchanged pantoprazole Every day Contact prescribing physician if questions or concerns Unchanged pioglitazone (Actos) By Mouth Every day Contact prescribing physician if questions or concerns Test Results Urnls Dip Stick Auto w/o Microscopy POC 31716 (12/26/2021) Bilirubin Urine Dipstick - Negative Blood Urine Dipstick - Negative Glucose Urine Dipstick - Negative Ketones Urine Dipstick - Negative Leukocytes Urine Dipstick - Negative Nitrite Urine Dipstick - Negative Protein Urine Dipstick - Negative Specific [place] Urine Dipstick - 1.025 Urine Appearance Urine Dipstick - Clear Urine Color Urine Dipstick - Yellow Urobilinogen Urine Dipstick - Normal 0.2-1 EU/dl pH Urine Dipstick - 5 Allergies Entex (Unknown) erythromycin (Unknown) neomycin (Unknown) sulfa drugs (Unknown) Problems Ongoing - Any problem that you are currently receiving treatment for. Asthma BPH with urinary obstruction Colitis COPD, mild Crohn's disease Deafness Diabetes mellitus Eczema Elevated PSA Falling Family history of prostate cancer Gall stone Glucosuria History of kidney stones Hypergammaglobulinemia Hyperlipidemia Hyperlipidemia Multiple myeloma Myalgia Neuropathy Nocturia Otitis media Paget's bone disease Peripheral neuropathy Proteinuria Spinal stenosis Spondylosis Type 2 diabetes mellitus Urge incontinence Education Materials Transurethral Resection of the Prostate Transurethral resection of the prostate (TURP) is the removal (resection) of part of the gland that produces semen (prostate gland). This procedure is done to treat benign prostatic hyperplasia (BPH). BPH is an abnormal, noncancerous (benign) increase in the number of cells that make up the prostate tissue. BPH causes the prostate to get bigger. The enlarged prostate can push against or block the tube that drains urine from the bladder out of the body (urethra). BPH can affect normal urine flow by causing bladder infections, difficulty controlling bladder function, and difficulty emptying the bladder. The goal of TURP is to remove enough prostate tissue to allow for a normal flow of urine. The procedure will allow you to empty your bladder more completely when you urinate so that you can urinate less often. In a transurethral resection, a thin telescope with a light, a tiny camera, and an electric cutting edge (resectoscope) is passed through the urethra and into the prostate. The opening of the urethra is at the end of the penis. Tell a health care provider about: ? Any allergies you have. ? All medicines you are taking, including vitamins, herbs, eye drops, creams, and edrc-agf-oimhyal medicines. ? Any problems you or family members have had with anesthetic medicines. ? Any blood disorders you have. ? Any surgeries you menjivar (more content not included)... Normal [facility] Patient Educationon 12-27-19 Patient Education Urology Transurethral Resection of the Prostate Transurethral resection of the prostate (TURP) is the removal (resection) of part of the gland that produces semen (prostate gland). This procedure is done to treat benign prostatic hyperplasia (BPH). BPH is an abnormal, noncancerous (benign) increase in the number of cells that make up the prostate tissue. BPH causes the prostate to get bigger. The enlarged prostate can push against or block the tube that drains urine from the bladder out of the body (urethra). BPH can affect normal urine flow by causing bladder infections, difficulty controlling bladder function, and difficulty emptying the bladder. The goal of TURP is to remove enough prostate tissue to allow for a normal flow of urine. The procedure will allow you to empty your bladder more completely when you urinate so that you can urinate less often. In a transurethral resection, a thin telescope with a light, a tiny camera, and an electric cutting edge (resectoscope) is passed through the urethra and into the prostate. The opening of the urethra is at the end of the penis. Tell a health care provider about: ? Any allergies you have. ? All medicines you are taking, including vitamins, herbs, eye drops, creams, and btkh-fjd-hrhokkd medicines. ? Any problems you or family members have had with anesthetic medicines. ? Any blood disorders you have. ? Any surgeries you have had. ? Any medical conditions you have. ? Any prostate infections you have had. What are the risks? Generally, this is a safe procedure. However, problems may occur, including: ? Infection. ? Bleeding. ? Allergic reactions to medicines. ? Damage to other structures or organs, such as: ? The urethra. ? The bladder. ? Muscles that surround the prostate. ? Difficulty getting an erection. ? Inability to control when you urinate (incontinence). ? Scarring, which may cause problems with urine flow. What happens before the procedure? Medicines Ask your health care provider about: ? Changing or stopping your regular medicines. This is especially important if you are taking diabetes medicines or blood thinners. ? Taking medicines such as aspirin and ibuprofen. These medicines can thin your blood. Do not take these medicines unless your health care provider tells you to take them. ? Taking xdyt-xji-usmjkfo medicines, vitamins, herbs, and supplements. Eating and drinking Follow instructions from your health care provider about eating and drinking, which may include: ? 8 hours before the procedure ? stop eating heavy meals or foods, such as meat, fried foods, or fatty foods. ? 6 hours before the procedure ? stop eating light meals or foods, such as toast or cereal. ? 6 hours before the procedure ? stop drinking milk or drinks that contain milk. ? 2 hours before the procedure ? stop drinking clear liquids. Staying hydrated Follow instructions from your health care provider about hydration, which may include: ? Up to 2 hours before the procedure ? you may continue to drink clear liquids, such as water, clear fruit juice, black coffee, and plain tea. General instructions ? You may have a physical exam. ? You may have a blood or urine sample taken. ? Ask your health care provider what steps will be taken to help prevent infection. These may include: ? Washing skin with a germ-killing soap. ? Taking antibiotic medicine. ? Plan to have someone take you home from the hospital or clinic. You may not be able to drive for up to 10 days after your procedure. ? Plan to have a responsible adult care for you for at least 24 hours after you leave the hospital or clinic. This is important. What happens during the procedure? ? An IV will be inserted into one of your veins. ? You will be given one or more of the following: ? A medicine to help you relax (sedative). ? A medicine to make you fall asleep (general anesthetic). ? A medicine that is injected into your spine to numb the area below and slightly above the injection site (spinal anesthetic). ? Your legs will be placed in foot rests (stirrups) so that your legs are apart and your knees are bent. ? The resectoscope will be passed through your urethra to your prostate. ? Parts of your prostate will be resected using the cutting edge of the resectoscope. ? The resectoscope will be removed. ? A small, thin tube (catheter) will be passed through your urethra and into your bladder. The catheter will drain urine into a bag outside of your body. ? Fluid may be passed through the catheter to keep the catheter open. The procedure may vary among health care providers and hospitals. What happens after the procedure? ? Your blood pressure, heart rate, breathing rate, and blood oxygen level will be monitored until you leave the hospital or clinic. ? You may continue to receive fluids and medicines through an IV. ? You may have some pain. Pain medicine will be jojo (more content not included)... Normal [facility] Urology Office/Clinic Noteon 12-26-2021 Urology Office/Clinic Note Chief Complaint Pt is here for 1 year follow up w/ PSA HPI Staff Zach is a 76 y.o. male here for a 1 year follow up w/ PSA. Previous Dx: BPH w/ urinary obstruction,, elevated PSA, family history of prostate cancer, glucosuria, history of kidney stones, proteinuria, urge incontinence. No urological procedures. Current PSA 4.2 & 24.5% done on 12/20/21. Previous PSA 6.2 & 32.9% done on 10/25/20. Dysuria: denies Incomplete bladder emptying: denies Hematuria: denies Frequency: denies Urgency: denies Nocturia: every hour 1/2 at night Stream: steady stream, but varies Leaking: denies Post void dripping: denies Wearing pads/ Depends: denies Urge incontinence: denies Stress incontinence: denies Incontinence without Sensory Awareness: denies Abdominal pain: denies Flank pain: denies Sexual complaints: _ History of Present Illness I have reviewed and verified the staff HPI to be accurate for this encounter. Review of Systems PHQ Score Initial Depression Screen Score: 0 ROS - Provider Constitutional: denies weight loss, denies hot flashes. Eyes: denies eye problems. Gastrointestinal: denies nausea, denies vomiting. Cardiovascular: denies chest pain or angina. Integumentary: no dryness Musculoskeletal: denies musculoskeletal symptoms. ENMT: denies otolaryngeal symptoms. Respiratory: no shortness of breath. Heme/Lymph: denies easy bleeding tendency, denies easy bruising tendency. Psychiatric: no confusion, no anxiety. Genitourinary: denies dysuria, denies hematuria, denies discharge, denies urinary frequency, denies urinary hesitancy, denies nocturia, denies incontinence, denies genital sores, denies decreased libido, and denies erectile dysfunction. Physical Exam Vitals & Measurements HR: 75(Peripheral) BP: 136/82 HT: 176 cm HT: 176.0 cm WT: 95 kg WT: 95.0 kg BMI: 30.67 General Appearance: alert, no distress, well nourished, well developed male. Genitourinary: normal scrotum, normal testes, normal urethra, normal epididymis, normal vas deferens/spermatic cord. Flank Pain: none. Bladder: nonpalpable Assessment/Plan 1. BPH with urinary obstruction (N40.1: Benign prostatic hyperplasia with lower urinary tract symptoms) Pt is not on any BPH medications at this time. Overall pt states that he has a steady stream, no leaking, no blood in urine and has no urinary complaints at this time. 2. Elevated PSA (R97.20: Elevated prostate specific antigen [PSA]) Current PSA 4.2 & 24.5% done on 12/20/21. Previous PSA 6.2 & 32.9% done on 10/25/20.Prostate MRI done 03/02/2020 and Neg. fusion bx done 05/07/2020. Discussed with pt that his PSA has come down and is virtually normal. 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 3. Family history of prostate cancer (Z80.42: Family history of malignant neoplasm of prostate) father Follow-up With When Contact Information JOSHUA MONTELONGO, Roxana Rodriguez, URL [facility] [address] [place] [address] [phone] Additional Instructions: Patient Education Transurethral Resection of the Prostate IErica, personally scribed for Dr. Lewis on 12/26/2021 14:15:39. . Documentation recorded by the scribeErica, accurately reflects the services(s) I performed and decisions made by me. Problem List/Past Medical History Ongoing Asthma BPH with urinary obstruction Colitis COPD, mild Crohn's disease Deafness Diabetes mellitus Eczema Elevated PSA Falling Family history of prostate cancer Gall stone Glucosuria History of kidney stones Hypergammaglobulinemia Hyperlipidemia Hyperlipidemia Multiple myeloma Myalgia Neuropathy Nocturia Otitis media Paget's bone disease Peripheral neuropathy Proteinuria Spinal stenosis Spondylosis Type 2 diabetes mellitus Urge incontinence Historical No qualifying data Procedure/Surgical History artificial implant, Cholecystectomy, Colectomy, Colonoscopy, Hernia, Procedure on back, Tonsillectomy. Medications Actos, Oral, Daily dexamethasone 4 mg Tab, Oral, BID glyBURIDE, Oral, Daily magnesium aspartate, Oral, BID metformin, Oral oxycodone, Oral pantoprazole, Daily Revlimid 10 mg oral capsule, 10 mg= 1 cap(s), Oral, Daily TriCor, Oral, Daily tumeric, 0 Allergies Entex (Unknown) erythromycin (Unknown) neomycin (Unknown) sulfa drugs (Unknown) Social History Alcohol - Low Risk, 12/08/2019 Tobacco Former smoker, quit more than 30 days ago Tobacco Use:., 03/08/2020 Former smoker, quit more than 30 days ago Tobacco Use:., 12/08/2019 Family History Cancer of prostate: Father. Diabetes mellitus type 1: Father. Heart disease: Mother. Liver disease: Father. Immunizations Vaccine Date Status SARS-CoV-2 (COVID-19) Ad26 vaccine 07/24/2021 Recorded influenza virus vaccine, inactivated 06/2021 Recorded SARS-CoV-2 (COVID-19) mRNA BNT-162b2 v (more content not included)... Normal [facility] Comment on above: Result Comment: Elec tronically Signed By: Roxana LEWIS MD\.br\Date and Time Signed: 12/26/21 14:16 EDT\.br\Electronically Co-Signed By: Erica Moses MA\.br\Date and Time Co-Signed: 12/26/21 14:16 EDT [facility] 12-21-2021 Lab Reports [id number]:127 Normal [facility] PSA, FREE AND TOTAL RATIOon 12-21-2021 % Free PSA 24.5 % Normal [facility] Comment on above: Result Comment: The table below lists the probability of prostate cancer for men with non-suspicious RADHA results and total PSA between 4 and 10 ng/mL, by patient age (Judah et al, SELENE 1998, 279:1542). % Free PSA 50-64 yr 65-75 yr 0.00-10.00% 56% 55% 10.01-15.00% 24% 35% 15.01-20.00% 17% 23% 20.01-25.00% 10% 20% >25.00% 5% 9% Please note: Judah et al did not make specific recommendations regarding the use of percent free PSA for any other population of men. Performed By: #### A 1C #### [facility] [address] [place] [address] Dr. Tigre Gant Prostate specific Ag [Mass/Vol] 4.2 ng/mL Critically high 0.0-4.0 [facility] Comment on above: Result Comment: Renee JONES methodology. . According to the [employer], Serum PSA should decrease and remain at undetectable levels after radical prostatectomy. The AUA defines biochemical recurrence as an initial PSA value 0.2 ng/mL or greater followed by a subsequent confirmatory PSA value 0.2 ng/mL or greater. Values obtained with different assay methods or kits cannot be used interchangeably. Results cannot be interpreted as absolute evidence of the presence or absence of malignant disease. Performed By: #### A 1C #### [facility] [address] [place] [address] Dr. Tigre Gant PSA, Free 1.03 ng/mL Normal N/A [facility] Comment on above: Result Comment: Renee JONES methodology. Performed By: #### A 1C #### [facility] [address] [place] [address] Dr. Tigre Gant Lab Report[facility] 11-14-2021 Lab Reports [id number]:127 Normal [facility] CLOSTRIDIUM DIFFICILE PCRon 09-13-2021 C difficile Toxin Gene SHOSHANA Negative Normal Negative [facility] Comment on above: Performed By: #### A 1C #### [facility] [address] [place] [address] Dr. Tigre Gant GI PANEL (PCR)on 09-12-2021 Adenovirus F 40/41 Not detected Normal NOT DETECTED [facility] Comment on above: Performed By: #### G IPANEL #### [facility] [address] [place] [address] Dr. Tigre Gant Astrovirus Not detected Normal NOT DETECTED The [facility] Comment on above: Performed By: #### G IPANEL #### [facility] [address] [address] [address] Tigre Gant C. Diff toxin A/B Not detected Normal NOT DETECTED The [facility] Comment on above: Performed By: #### G IPANEL #### [facility] [address] [place] [address] Dr. Tigre Gant Campylobacter Not detected Normal NOT DETECTED The [facility] Comment on above: Performed By: #### G IPANEL #### [facility] [address] [place] [address] Dr. Tigre Gant Cryptosporidium Not detected Normal NOT DETECTED The [facility] Comment on above: Performed By: #### G IPANEL #### [facility] [address] [place] [address] Dr. Tigre Gant Cyclos. Cayetanensis Not detected Normal NOT DETECTED The [facility] Comment on above: Performed By: #### G IPANEL #### [facility] [address] [place] [address] Dr. Tigre Gant E. Coli O157 Not Applicable Normal Not Applicable The [facility] Comment on above: Performed By: #### G IPANEL #### [facility] [address] [place] [address] Dr. Tigre Gant E. histolytica Not detected Normal NOT DETECTED The [facility] Comment on above: Performed By: #### G IPANEL #### [facility] [address] [place] [address] Dr. Tigre Gant EAEC Not detected Normal NOT DETECTED The [facility] Comment on above: Performed By: #### G IPANEL #### [facility] [address] [place] [address] Dr. Tigre Gant EIEC Not detected Normal NOT DETECTED The [facility] Comment on above: Performed By: #### G IPANEL #### [facility] [address] [place] [address] Dr. Tigre Gant EPEC Not detected Normal NOT DETECTED The [facility] Comment on above: Performed By: #### G IPANEL #### [facility] [address] [place] [address] Dr. Tigre Gant ETEC Not detected Normal NOT DETECTED The [facility] Comment on above: Performed By: #### G IPANEL #### [facility] [address] [address] [address] Tigre Valverde Lamblia Not detected Normal NOT DETECTED The [facility] Comment on above: Performed By: #### G IPANEL #### [facility] [address] [place] [address] Dr. Tigre ROSALES CONTROLS PASSED Normal The [facility] Comment on above: Performed By: #### G IPANEL #### [facility] [address] [place] [address] Dr. Tigre ESPINOZA HEADER GI PANEL BACTERIA Normal T [facility] Comment on above: Performed By: #### G IPANEL #### [facility] [address] [place] [address] Dr. Tigre CAPUTO ECOLI GI PANEL DIARRHEAGEN IC E.COLI / SHIGELLA Normal [facility] Comment on above: Performed By: #### G IPANEL #### [facility] [address] [place] [address] Dr. Tigre CAPUTO INFO SEE BELOW Normal The [facility] Comment on above: Result Comment: EAEC - Enteroaggregative E. Coli EPEC- Enteropathogenic E. Coli ETEC- Enterotoxigenic E. Coli lt/st STEC- Shigella-like toxin-producing E. Coli stx1/stx2 EIEC- Shigella/Enteroinvasive E. Coli Performed By: #### G IPANEL #### [facility] [address] [place] [address] Dr. Tigre CAPUTO PARASITES GI PANEL PARASITES Normal [facility] Comment on above: Performed By: #### G IPANEL #### [facility] [address] [place] [address] Dr. Tigre CAPUTO VIRUS GI PANEL VIRUSES Normal The [facility] Comment on above: Performed By: #### G IPANEL #### [facility] [address] [address] [address] Tigre Gant Norovirus GI/GII Not detected Normal NOT DETECTED The [facility] Comment on above: Performed By: #### G IPANEL #### [facility] [address] [address] [address] Tigre Gant P. Shigelloides Not detected Normal NOT DETECTED The [facility] Comment on above: Performed By: #### G IPANEL #### [facility] [address] [place] [address] Dr. Tigre Gant Rotavirus A Not detected Normal NOT DETECTED The [facility] Comment on above: Performed By: #### G IPANEL #### [facility] [address] [place] [address] Dr. Tigre Gant Salmonella Not detected Normal NOT DETECTED The [facility] Comment on above: Performed By: #### G IPANEL #### [facility] [address] [place] [address] Dr. Tigre Gant Sapovirus Not detected Normal NOT DETECTED The [facility] Comment on above: Performed By: #### G IPANEL #### [facility] [address] [place] [address] Dr. Tigre Gant STEC Not detected Normal NOT DETECTED The [facility] Comment on above: Performed By: #### G IPANEL #### [facility] [address] [place] [address] Dr. Tigre Gant Vibrio Not detected Normal NOT DETECTED The [facility] Comment on above: Performed By: #### G IPANEL #### [facility] [address] [address] [address] Tigre Gant Vibrio Cholera Not detected Normal NOT DETECTED The [facility] Comment on above: Performed By: #### G IPANEL #### [facility] [address] [place] [address] Dr. Tigre Gant Y. Enterocolitica Not detected Normal NOT DETECTED The [facility] Comment on above: Performed By: #### G IPANEL #### [facility] [address] [address] [address] 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 CLINICAL DATA: Low back pain. Spondylosis of lumbar region without myelopathy or radiculopathy. FINDINGS: 6 views of the lumbar spine were obtained including standing lateral views in the neutral, flexion, and extension positions and standing neutral, rightward bending, and leftward bending frontal views. This examination is compared with a prior study 12/24/2018. There are postsurgical changes related to lower thoracic and lumbar spinal decompression and fusion. The nery on the left is now broken just above the pedicle screw at L1. A broken pedicle screw is again noted at T12 on the right. There is stable mild anterior malalignment of L3 on L4. Vertebral alignment is otherwise normal and does not significantly change with flexion or extension. XR/XR lumbar spine 6V w bending IMPRESSION: Status post thoracolumbar spinal decompression and fusion. Broken nery on the left just above the pedicle screw at L1. Stable broken pedicle screw at T12 on the right. Impression dictated by: Carson Kumar Jr., M.D.05/05/2021 2:07 PM Dictation Location: [address] [address] Transcribed By: [facility] 05/05/21 1406 Dictated By: Carson Kumar Jr, MD 05/05/21 1353 Signed By: 05/05/21 1409 [facility] Reportson 02-21-2021 Lab Reports [id number]:[id number] Normal [facility] Ambulatory Clinical Summaryo n 01-03-2021 Ambulatory Clinical Summary {[id number] Normal [facility] Patient Educationon 01-04-20 21 Patient Education Benign Prostatic Hyperplasia You have an enlarged prostate. This is common in elderly males. It is called BPH. This stands for benign prostate hyperplasia. The prostate gland is located in base of the bladder. When it grows, the prostate blocks the urethra. This is the tube which drains urine from the bladder. SYMPTOMS ? Weak urine stream. ? Dribbling. ? Feeling like the bladder has not emptied completely. ? Difficulty starting urination. ? Getting up frequently at night to urinate. ? Urinating more frequently during the day. Complete urinary blockage or severe pain with urination requires immediate attention. DIAGNOSIS ? Your caregiver often has a good idea what is wrong by taking a history and doing a physical exam. ? Special x-rays may be done. TREATMENT ? For mild problems, no treatment may be necessary. ? If the problems are moderate, medications may provide relief. Some of these work by making the prostate gland smaller. The herb saw palmetto is commonly used. ? If complete blockage occurs, a Monte catheter is usually left in place for a few days. ? Surgery is often needed for more severe problems. TURP is the prostate surgery for BPH which is done through the urethra. TURP stands for transurethral resection of the prostate. It involves cutting away chips from the prostate. It is done by removing chips so that they can come out through the penis. ? Techniques using heat, microwave and laser to remove the prostate blockage are also being used. HOME CARE INSTRUCTIONS ? Give yourself time when you urinate. ? Stay away from alcohol. ? Beverages containing caffeine such as coffee, tea and alban can make the problems worse. ? Decongestants, antihistamines, and some prescription medicines can also make the problem worse. ? Follow up with your caregiver for further treatment as recommended. SEEK IMMEDIATE MEDICAL CARE IF: ? You develop increased pain with urination or are unable to pass your water. ? You develop severe abdominal pain, vomiting, a high fever, or fainting. ? You develop back pain or blood in your urine. MAKE SURE YOU: ? Understand these instructions. ? Will watch your condition. ? Will get help right away if you are not doing well or get worse. Document Released: 09/10/2006 Document Revised: 12/02/2012 Document Reviewed: 05/15/2008 ExitCare? Patient Information ?2013 [employer] Femi Ly [facility] Urology Office/Clinic Noteon 01-03-2021 Urology Office/Clinic Note Chief Complaint 10 month f/u HPI Staff Pt is here for 10 BPH with urinary obstruction, elevated PSA, family hx of prostate cancer and glucosuria. Current PSA done 10/25/2020 is 6.2, PSA free is 2.04 and %Free PSA is 32.9. Pt states that he just finished 10 days of antibiotic therapy for C-diff. Dysuria: no Incomplete bladder emptying: no Hematuria: no Frequency: pt void every couple of hours Urgency: no Nocturia: pt states that he is up every couple of hours but it is because he has to have a bowel movement Stream: weak with start and stop Leaking: no Post void dripping: no Wearing pads/ Depends: no Urge incontinence: no Stress incontinence: no Incontinence without Sensory Awareness: no Abdominal pain: no Flank pain: no Sexual complaints: no History of Present Illness Reviewed UA, PSA, and fusion bx path results. There have been no associated fever, chills, flank pain or blood in the urine. Pt. denies any pain/burning with urination at this time. Review of Systems PHQ Score Initial Depression Screen Score: 0 ROS - Provider Constitutional: denies weight loss, denies hot flashes. Eyes: denies eye problems. Gastrointestinal: denies nausea, denies vomiting. Cardiovascular: denies chest pain or angina. Integumentary: no dryness Musculoskeletal: denies musculoskeletal symptoms. ENMT: denies otolaryngeal symptoms. Respiratory: no shortness of breath. Heme/Lymph: denies easy bleeding tendency, denies easy bruising tendency. Psychiatric: no confusion, no anxiety. Genitourinary: denies dysuria, denies hematuria, denies discharge, denies urinary frequency, denies urinary hesitancy, moderate nocturia, denies incontinence, denies genital sores, denies decreased libido, and denies erectile dysfunction. Physical Exam Vitals & Measurements HR: 71(Peripheral) RR: 16 BP: 133/78 HT: 176 cm HT: 176.0 cm WT: 95.3 kg WT: 95.3 kg BMI: 30.77 General Appearance: alert, no distress, well nourished, well developed male. Genitourinary: normal scrotum, normal testes, normal urethra, normal epididymis, normal vas deferens/spermatic cord. Flank Pain: none. Bladder: nonpalpable. Assessment/Plan 1. Elevated PSA (R97.20: Elevated prostate specific antigen [PSA]) Current PSA drawn on 10/25/2020 w/ a level of 6.2 and 32.9%. Prostate MRI done 03/02/2020 and Neg. fusion bx done 05/07/2020. The pathology report was reviewed with the patient in detail today. There is no evidence of malignancy and no further evaluation of the tissue removed is planned. All questions were answered and the report discussed in terms that the patient could understand. 2. BPH with urinary obstruction (N40.1: Benign prostatic hyperplasia with lower urinary tract symptoms) Pt. is not on any BPH meds. at this time and states urinary symptoms are not too bothersome to start any medications. 3. Weak urine stream (R39.12: Poor urinary stream) Weak stream w/ intermittency. 4. Nocturia (R35.1: Nocturia) Q2hrs. due to bowel. 5. Glucosuria (R81: Glycosuria) UA today - neg. 6. Family history of prostate cancer (Z80.42: Family history of malignant neoplasm of prostate) Father. I have reviewed the previous health record information and history for this pt. from Dr. Lewis. Follow-up With When Contact Information JOSHUA MONTELONGO, Roxana Rodriguez [address] [place] [address] [place] [address]- [phone] Additional Instructions: 1yr. psa Patient Education Benign Prostatic Hyperplasia I, Shayna Ramirez , personally scribed for Dr. Lewis on 01/03/2021 14:45:42. . Documentation recorded by the scribe, Shayna Ramirez, accurately reflects the services(s) I performed and decisions made by me. Authenticated by Dr. Lewis on 01/03/2021 14:46:45. Problem List/Past Medical History Ongoing Asthma BPH with urinary obstruction Colitis COPD, mild Crohn's disease Deafness Diabetes mellitus Eczema Elevated PSA Falling Family history of prostate cancer Gall stone Glucosuria History of kidney stones Hypergammaglobulinemia Hyperlipidemia Hyperlipidemia Multiple myeloma Myalgia Neuropathy Otitis media Paget's bone disease Peripheral neuropathy Proteinuria Spinal stenosis Spondylosis Type 2 diabetes mellitus Urge incontinence Historical No qualifying data Procedure/Surgical History artificial implant, Cholecystectomy, Colectomy, Colonoscopy, Hernia, Procedure on back, Tonsillectomy. Medications Actos, Oral, Daily dexamethasone 4 mg Tab, Oral, BID glyBURIDE, Oral, Daily magnesium aspartate, Oral, BID metformin, Oral oxycodone, Oral pantoprazole, Daily Revlimid 10 mg oral capsule, 10 mg= 1 cap(s), Oral, Daily TriCor, Oral, Daily tumeric, 0 Allergies Entex (Unknown) erythromycin (Unknown) neomycin (Unknown) sulfa drugs (Unknown) Social History Alcohol - Low Risk, 12/08/2019 Tobacco Former smoker, quit more than 30 days (more content not included)... Normal [facility] Comment on above: Result Comment: Elec tronically Signed By: JOSHUA MONTELONGO, Roxana Rodriguez\.br\Date and Time Signed: 01/03/21 14:46 EDT\.br\Electronically Co-Signed By: Shayna Ramirez MA\.br\Date and Time Co-Signed: 01/03/21 14:45 EDT FEMUR RIGHT 2 [facility] 05-16-20 19 FEMUR RIGHT 2 VWS [facility] Department of Radiology [address] [place] [id number] Patient Name: ZACH MANUEL : 1945 Sex: M Age: Race: White Pt. Location: Patient Status: O Ordered Date: 05/16/2019 10:30:00 AM Completed Date: 05/16/2019 10:28 AM Requesting Provider: ZHENG SCOTT Attending Provider: ZHENG SCOTT Report Copy To: Signs & Symptoms: S72.91XK Unsp fracture of right femur, subs for clos fx w nonunion I10 History: [place] Comments: , , , Ordering Provider - ZHENG SCOTT PA-C , Exam: FEMUR RIGHT 2 S FEMUR RIGHT 2 S 05/16/2019 10:28 AM EDT SIGNS AND SYMPTOMS: S72.91XK Unsp fracture of right femur, subs for clos fx w nonunion I10 TECHNOLOGIST COMMENTS: History of right femur surgery 07/13/2018. Ortho follow up. QUESTION FOR THE RADIOLOGIST: , , , Ordering Provider - ZHENG SCOTT PA-C , PROTOCOL: AP(PA) and Lateral views were obtained. COMPARISON: February 13, 2019 FINDINGS: Soft tissues: Normal Bones: No acute fracture open reduction and internal fixation of subtrochanteric fracture of the right femur with an intramedullary nery and dynamic screw alignment unchanged. Hardware unchanged. Near-complete healing compared to previous exam. Joints: Degenerative changes in the right hip with joint space narrowing and femoral head spurring IMPRESSION: 1. No acute fracture open reduction and internal fixation of subtrochanteric fracture of the right femur with an intramedullary nery and dynamic screw alignment unchanged. Hardware unchanged. Near-complete healing compared to previous exam. 2. Moderate to severe degenerative changes in the right hip Electronically signed by:Jazmín Hernandez. Transcribed by: [email or web address], User Resident: Electronically Signed by: JAZMÍN HERNANDEZ @ 05/16/2019 03:38 PM Normal [facility] Comment on above: Order Comment: , , = ========= , Ordering Provider - ZHENG SCOTT PA-C , FEMUR RIGHT 2 VWSon 02-14-20 19 FEMUR RIGHT 2 VWS [facility] Department of Radiology [address] [place] [id number] Patient Name: ZACH MANUEL : 1945 Sex: M Age: Race: White Pt. Location: 84 Patient Status: O Ordered Date: 02/13/2019 3:15:00 PM Completed Date: 02/13/2019 03:27 PM Requesting Provider: ZHENG SCOTT Attending Provider: ZHENG SCOTT Report Copy To: HANNA MATHIAS Signs & Symptoms: S72.91XK Unsp fracture of right femur, subs for clos fx w nonunion I10 History: [place] Comments: , , , Ordering Provider - ZHENG SCOTT PA-C , Exam: FEMUR RIGHT 2 S FEMUR RIGHT 2 VWS 02/13/2019 3:27 PM EDT SIGNS AND SYMPTOMS: S72.91XK Unsp fracture of right femur, subs for clos fx w nonunion I10 TECHNOLOGIST COMMENTS: right femur pain surgery - f/u QUESTION FOR THE RADIOLOGIST: , , , Ordering Provider - ZHENG SCOTT PA-C , PROTOCOL: AP(PA) and Lateral views were obtained. COMPARISON: January 09, 2019 FINDINGS: Reduction and internal fixation subtrochanteric fracture of the right femur with a screw and intramedullary nery. Alignment and hardware unchanged. Incomplete healing. Degenerative changes in the hip with joint space narrowing IMPRESSION: 1. Reduction and internal fixation subtrochanteric fracture of the right femur with a screw and intramedullary nery. Alignment and hardware unchanged. Incomplete healing. Electronically signed by:Jazmín Hernandez. Transcribed by: [email or web address], User Resident: Electronically Signed by: JAZMÍN HERNANDEZ @ 02/13/2019 05:05 PM Normal [facility] Comment on above: Order Comment: , , = ========= , Ordering Provider - ZHENG SCOTT PA-C , FEMUR RIGHT 2 [facility] 01-10-20 19 FEMUR RIGHT 2 [facility] Department of Radiology [address] [place] [id number] Patient Name: ZACH MANUEL : 1945 Sex: M Age: Race: White Pt. Location: Patient Status: O Ordered Date: 01/09/2019 10:10:00 AM Completed Date: 01/09/2019 10:15 AM Requesting Provider: JACQUELINE CROSS Attending Provider: JACQUELINE CROSS Report Copy To: HANNA MATHIAS Signs & Symptoms: S72.21XD Displ subtrochnt fx r femur, subs for clos fx w routn heal I10 History: [place] Comments: , , , Ordering Provider - JACQUELINE CROSS PA-C , Exam: FEMUR RIGHT 2 [facility] FEMUR RIGHT 2 VWS 01/09/2019 10:15 AM EDT SIGNS AND SYMPTOMS: S72.21XD Displ subtrochnt fx r femur, subs for clos fx w routn heal I10 TECHNOLOGIST COMMENTS: follow/up surgery 06/2018 to right femur. QUESTION FOR THE RADIOLOGIST: , , , Ordering Provider - JACQUELINE CROSS PA-C , PROTOCOL: AP(PA) and Lateral views were obtained. COMPARISON: December 10, 2018 FINDINGS: Soft tissues: Unchanged Bones: Unchanged Joints: Unchanged IMPRESSION: Nery fixation of femur subtrochanteric fracture in unchanged alignment but still limited healing despite extensive periosteal reaction Electronically signed by:Soila Morris. Transcribed by: [email or web address], User Resident: Electronically Signed by: SOILA MORRIS @ 01/09/2019 12:25 PM Normal [facility] Comment on above: Order Comment: , , = ========= , Ordering Provider - JACQUELINE CROSS PA-C , FEMUR RIGHT 2 Son 12-11-19 19 FEMUR RIGHT 2 S [facility] Department of Radiology [address] [place] [id number] Patient Name: ZACH MANUEL : 1945 Sex: M Age: Race: White Pt. Location: Patient Status: Ordered Date: 12/10/2018 1:20:00 PM Completed Date: 12/10/2018 01:34 PM Requesting Provider: SONIA, ZHENG M Attending Provider: Report Copy To: Signs & Symptoms: S72.21XD Displ subtrochnt fx r femur, subs for clos fx w routn heal I10 History: [place] Comments: , Views (X-RAY, FEMUR): Radiologic Protocol , Weight Bearing?: Y , Views (X-RAY, FEMUR): Radiologic Protocol , Weight Bearing?: Y , , , Ordering Provider - ZHENG SONIA PA-C , Exam: FEMUR RIGHT 2 VWS FEMUR RIGHT 2 VWS 12/10/2018 1:34 PM EDT SIGNS AND SYMPTOMS: S72.21XD Displ subtrochnt fx r femur, subs for clos fx w routn heal I10 TECHNOLOGIST COMMENTS: ortho check right femur surgery 07/13/18 QUESTION FOR THE RADIOLOGIST: , Views (X-RAY, FEMUR): Radiologic Protocol , Weight Bearing?: Y , Views (X-RAY, FEMUR): Radiologic Protocol , Weight Bearing?: Y , , , Ordering Provider - ZHENG SONIA PA-C , PROTOCOL: AP(PA) and Lateral views were obtained. COMPARISON: October 29, 2018 FINDINGS: Soft tissues: Unchanged vascular calcification muscle atrophy with mild swelling Sutures overlying pubis Bones: Unchanged fracture fixation of femur with transverse subtrochanteric fracture still showing lack of bony healing Periosteal response along the distal shaft laterally, cannot exclude infection Joints: Moderate right hip and mild right knee arthritis IMPRESSION: Continued delayed healing of the subtrochanteric fracture Electronically signed by:Soila Morris. Transcribed by: [email or web address], User Resident: Electronically Signed by: SOILA MORRIS @ 12/10/2018 03:21 PM [place] [facility] Comment on above: Order Comment: , Jaky ws (X-RAY, FEMUR): Radiologic Protocol , Weight Bearing?: Y , Views (X-RAY, FEMUR): Radiologic Protocol , Weight Bearing?: Y , , , Ordering Provider - ZHENG SCOTT PA-C , VITAMIN D 25-HYDROXYon 12-10 VITAMIN D 25-OH 40.2 ng/mL Normal 30.0-80.0 [facility] Comment on above: Result Comment: >80. 0 Toxicity possible Performed By: #### 6 [id number] #### [id number] [place] [address] FEMUR RIGHT 2 VWSon 10-29-19 19 FEMUR RIGHT 2 VWS [facility] Department of Radiology [address] [place] [address] Patient Name: ZACH MANUEL : 1945 Sex: M Age: Race: White Pt. Location: Patient Status: O Ordered Date: 10/29/2018 12:00:00 PM Completed Date: 10/29/2018 01:58 PM Requesting Provider: ZHENG SCOTT Attending Provider: ZHENG SCOTT Report Copy To: HANNA MATHIAS Signs & Symptoms: S72.21XD Displ subtrochnt fx r femur, subs for clos fx w routn heal I10 History: [place] Comments: , , , Ordering Provider - ZHENG SCOTT PA-C , Exam: FEMUR RIGHT 2 VWS FEMUR RIGHT 2 VWS 10/29/2018 1:58 PM EST SIGNS AND SYMPTOMS: S72.21XD Displ subtrochnt fx r femur, subs for clos fx w routn heal I10 TECHNOLOGIST COMMENTS: right prox. femur pain surgery - 07/13/18 f/u QUESTION FOR THE RADIOLOGIST: , , , Ordering Provider - ZHENG SCOTT PA-C , PROTOCOL: AP(PA) and Lateral views were obtained. COMPARISON: September 20, 2018 FINDINGS: Soft tissues: Muscle atrophy and vascular calcification Bones: Hardware fixation of subtrochanteric fracture in slightly offset but unchanged alignment with still virtually no bony bridging Joints: Moderate hip arthritis and minor knee arthritis IMPRESSION: Hardware fixation of transversely oriented subtrochanteric right proximal femur fracture, similar to prior, limited healing Electronically signed by:Soila Morris. Transcribed by: [email or web address], User Resident: Electronically Signed by: SOILA MORRIS @ 10/29/2018 02:17 PM Normal [facility] Comment on above: Order Comment: , , = ========= , Ordering Provider - ZHENG SCOTT PA-C , FEMUR RIGHT 2 [facility] 09-20-20 18 FEMUR RIGHT 2 [facility] Department of Radiology [address] [place] [id number] Patient Name: ZACH MANUEL : 1945 Sex: M Age: Race: White Pt. Location: Patient Status: O Ordered Date: 09/20/2018 12:45:00 PM Completed Date: 09/20/2018 12:45 PM Requesting Provider: ZHENG SCOTT Attending Provider: JACQUELINE CROSS Report Copy To: HANNA MATHIAS Signs & Symptoms: S72.21XD Displ subtrochnt fx r femur, subs for clos fx w routn heal I10 History: Hailey Comments: , Views (X-RAY, FEMUR): AP, Lateral , Views (X-RAY, FEMUR): AP, Lateral , , , Ordering Provider - ZHENG SCOTT PA-C , Exam: FEMUR RIGHT 2 [facility] FEMUR RIGHT 2 [facility] 09/20/2018 12:49 PM EST SIGNS AND SYMPTOMS: S72.21XD Displ subtrochnt fx r femur, subs for clos fx w routn heal I10 TECHNOLOGIST COMMENTS: History of right femur surgery 07/13/2018. Ortho follow up. QUESTION FOR THE RADIOLOGIST: , Views (X-RAY, FEMUR): AP, Lateral , Views (X-RAY, FEMUR): AP, Lateral , , , Ordering Provider - ZHENG SCOTT PA-C , PROTOCOL: AP(PA) and Lateral views were obtained. COMPARISON: August 23, 2018 FINDINGS: Soft tissues: Unchanged Bones: Unchanged Joints: Unchanged IMPRESSION: Transversely oriented subtrochanteric fracture fixed by nery in unchanged slightly offset alignment with still no significant bony bridging Electronically signed by:Soila Morris. Transcribed by: [email or web address], User Resident: Electronically Signed by: SOILA MORRIS @ 09/20/2018 01:08 PM Normal [facility] Comment on above: Order Comment: , Jaky ws (X-RAY, FEMUR): AP, Lateral , Views (X- RAY, FEMUR): AP, Lateral , , , Ordering Provider - ZHENG SONIA PA-C , FEMUR RIGHT 2 [facility] 08-23-20 18 FEMUR RIGHT 2 [facility] Department of Radiology [address] [place] [id number] Patient Name: ZACH MANUEL : 1945 Sex: M Age: Race: White Pt. Location: Patient Status: O Ordered Date: 08/23/2018 12:50:00 PM Completed Date: 08/23/2018 12:57 PM Requesting Provider: ZHENG SCOTT Attending Provider: ZHENG SCOTT Report Copy To: HANNA MATHIAS Signs & Symptoms: S72.21XD Displ subtrochnt fx r femur, subs for clos fx w routn heal I10 History: Hailey Comments: , Views (X-RAY, FEMUR): AP, Lateral , Views (X-RAY, FEMUR): AP, Lateral , , , Ordering Provider - ZHENG DEWITTC , Exam: FEMUR RIGHT 2 [facility] FEMUR RIGHT 2 [facility] 08/23/2018 12:57 PM EST SIGNS AND SYMPTOMS: S72.21XD Displ subtrochnt fx r femur, subs for clos fx w routn heal I10 TECHNOLOGIST COMMENTS: Ortho follow up for surgery to right femur. QUESTION FOR THE RADIOLOGIST: , Views (X-RAY, FEMUR): AP, Lateral , Views (X-RAY, FEMUR): AP, Lateral , , , Ordering Provider - ZHENG DEWITTC , PROTOCOL: AP(PA) and Lateral views were obtained. COMPARISON: July 25, 2018 FINDINGS: Soft tissues: Mild peritrochanteric swelling Bones: Nery fixation of subtrochanteric offset fractures similar to prior study with still limited healing Joints: Moderate hip and moderate knee arthritis IMPRESSION: 1. Femoral nery fixation with currently limited healing of the transverse subtrochanteric fracture 2. Lateral thickening along the femoral cortex in general may reflect multiple healing stress fractures, possibly Paget's disease Electronically signed by:Soila Morris. Transcribed by: [email or web address], User Resident: Electronically Signed by: SOILA MORRIS @ 08/23/2018 02:15 PM Normal [facility] Comment on above: Order Comment: , Jaky ws (X-RAY, FEMUR): AP, Lateral , Views (X- RAY, FEMUR): AP, Lateral , , , Ordering Provider - ZHENG SCOTT PA-C , FEMUR RIGHT 2 [facility] 07-25-20 18 FEMUR RIGHT 2 [facility] Department of Radiology [address] [place] [id number] Patient Name: ZACH MANUEL : 1945 Sex: M Age: Race: White Pt. Location: Patient Status: Ordered Date: 07/25/2018 10:10:00 AM Completed Date: 07/25/2018 10:16 AM Requesting Provider: JACQUELINE CROSS Attending Provider: Report Copy To: Signs & Symptoms: S72.21XA Displaced subtrochanteric fracture of right femur, init I10 History: Hailey Comments: , , , Ordering Provider - JACQUELINE CROSS PA-C , Exam: FEMUR RIGHT 2 [facility] FEMUR RIGHT 2 [facility] 07/25/2018 10:16 AM EDT SIGNS AND SYMPTOMS: S72.21XA Displaced subtrochanteric fracture of right femur, init I10 TECHNOLOGIST COMMENTS: Patient states right femur versus tractor x 2 weeks ortho follow up of right femur QUESTION FOR THE RADIOLOGIST: , , , Ordering Provider - JACQUELINE CROSS PA-C , PROTOCOL: AP(PA) and Lateral views were obtained. COMPARISON: July 20, 2018 FINDINGS: Soft tissues: Muscle atrophy and vascular calcification along with some superolateral trochanteric heterotopic ossification Bones: Nery fixation of transverse proximal femur fracture in offset alignment, currently showing no healing but there is rather extensive periosteal response with some scalloping and varus curvature The appearance could represent multiple old stress-related responses, versus Paget's disease Joints: Moderate hip and moderate knee arthritis IMPRESSION: Nery fixation of proximal transverse femur fracture as above Electronically signed by:Soila Morris. Transcribed by: [email or web address], User Resident: Electronically Signed by: SOILA MORRIS @ 07/25/2018 02:02 PM Normal [facility] Comment on above: Order Comment: , , = ========= , Ordering Provider - JACQUELINE CROSS PA-C , BASIC METABOLIC PANELon 10-2 Calcium [Mass/Vol] 8.2 mg/dL Low 8.6-10.3 [facility] Comment on above: Order Comment: No: D o not add to previous draw Performed By: #### 5 0103 #### [facility] [address] [place] [address], [facility] Chloride [Moles/Vol] 100 mmol/L Normal 98-107 [facility] Comment on above: Order Comment: No: D o not add to previous draw Performed By: #### 5 0103 #### [facility] [address] [place] [address], [place] CO2 [Moles/Vol] 25 mmol/L Normal 21-31 [facility] Comment on above: Order Comment: No: D o not add to previous draw Performed By: #### 5 0103 #### [facility] [address] [place] [address], [place] Creatinine [Mass/Vol] 1.11 mg/dL Normal 0.70-1.30 [facility] Comment on above: Order Comment: No: D o not add to previous draw Performed By: #### 5 0103 #### [facility] [address] [place] [address], [place] GFR/1.73 sq M predicted among blacks MDRD (S/P/Bld) [Vol rate/Area] mL/min/{1.73_m2} Normal >60 [facility] Comment on above: Order Comment: No: D o not add to previous draw Result Comment: Calc ulation may not be valid for patients over 70 years Performed By: #### 5 0103 #### [facility] [address] [place] [address], [place] GFR/1.73 sq M predicted among non-blacks MDRD (S/P/Bld) [Vol rate/Area] mL/min/{1.73_m2} Normal >60 [facility] Comment on above: Order Comment: No: D o not add to previous draw Result Comment: Calc ulation may not be valid for patients over 70 years Performed By: #### 5 0103 #### [facility] [address] [place] [address], [place] Glucose [Mass/Vol] 243 mg/dL High 70-100 [facility] Comment on above: Order Comment: No: D o not add to previous draw Performed By: #### 5 0103 #### [facility] [address] [place] [address], [place] Potassium [Moles/Vol] 3.7 mmol/L Normal 3.5-5.1 [facility] Comment on above: Order Comment: No: D o not add to previous draw Performed By: #### 5 0103 #### [facility] [address] [place] [address], [facility] Sodium [Moles/Vol] 131 mmol/L Low 136-145 [facility] Comment on above: Order Comment: No: D o not add to previous draw Performed By: #### 5 0103 #### [facility] [address] [place] [address], [facility] Urea nitrogen [Mass/Vol] 18 mg/dL Normal 7-25 [facility] Comment on above: Order Comment: No: D o not add to previous draw Performed By: #### 5 0103 #### [facility] [address] [place] [address], [facility] CBC COMPLETE BLOOD COUNTon Erythrocyte distribution width (RBC) [Ratio] 12.4 % Normal 11.5-15.0 [facility] Comment on above: Order Comment: No: D o not add to previous draw Performed By: #### 5 0103 #### [facility] [address] [place] [address], [facility] Hematocrit (Bld) [Volume fraction] 25.4 % Low 39.0-50.0 [facility] Comment on above: Order Comment: No: D o not add to previous draw Performed By: #### 5 0103 #### [facility] [address] [place] [address], [facility] Hemoglobin (Bld) [Mass/Vol] 8.6 g/dL Low 13.0-17.0 [facility] Comment on above: Order Comment: No: D o not add to previous draw Performed By: #### 5 0103 #### [facility] [address] [place] [address], [place] IMM PLATELET FRAC 5.2 % Normal 0.8-6.3 [facility] Comment on above: Order Comment: No: D o not add to previous draw Performed By: #### 5 0103 #### [facility] [address] [facility] [address], [facility] MCH (RBC) [Entitic mass] 31.4 pg Normal 27.0-33.0 [facility] Comment on above: Order Comment: No: D o not add to previous draw Performed By: #### 5 0103 #### [facility] [address] [facility]. [address] MCHC (RBC) [Mass/Vol] 33.9 g/dL Normal 32.0-35.0 [facility] Comment on above: Order Comment: No: D o not add to previous draw Performed By: #### 5 0103 #### [facility] [address] [facility] [address], [facility] MCV (RBC) [Entitic vol] 92.7 fL Normal 82.0-98.0 [facility] Comment on above: Order Comment: No: D o not add to previous draw Performed By: #### 5 0103 #### [facility] [address] Nucleated RBC/100 WBC (Bld) [Ratio] 0 % Normal 0-0 [facility] Comment on above: Order Comment: No: D o not add to previous draw Performed By: #### 5 0103 #### [facility] [address] [place] [address], [facility] PLAT CNT 130 10*3/uL Low 150-400 [facility] Comment on above: Order Comment: No: D o not add to previous draw Performed By: #### 5 0103 #### [facility] [address] [place] [address], [facility] RBC (Bld) [#/Vol] 2.74 10*6/uL Low 4.20-5.70 [facility] Comment on above: Order Comment: No: D o not add to previous draw Performed By: #### 5 0103 #### [facility] [address] [place] [address], [facility] WBC (Bld) [#/Vol] 6.87 10*3/uL Normal 4.00-10.60 [facility] Comment on above: Order Comment: No: D o not add to previous draw Performed By: #### 5 0103 #### [facility] [address] [place] [address], [place] POC GLUCOSE LABon 07-16-2018 Glucose [Mass/Vol] 281 mg/dL High 70-100 [facility] Comment on above: Performed By: #### 5 0103 #### [facility] [address] [place] [address], [place] Glucose [Mass/Vol] 250 mg/dL High 70-100 [facility] Comment on above: Performed By: #### 5 610, 23085 #### [facility] [address] [place] [address], [place] Glucose [Mass/Vol] 240 mg/dL High 70-100 [facility] Comment on above: Performed By: #### 5 610, 22839 #### [facility] [address] [place] [address], [facility] BASIC METABOLIC PANELon 06-25 Calcium [Mass/Vol] 8.0 mg/dL Low 8.6-10.3 [facility] Comment on above: Order Comment: No: D o not add to previous draw Performed By: #### 5 610, 41918 #### [facility] [address] [place] [address], [place] Chloride [Moles/Vol] 101 mmol/L Normal 98-107 [facility] Comment on above: Order Comment: No: D o not add to previous draw Performed By: #### 5 610, 13053 #### [facility] [address] [place] [address], [place] CO2 [Moles/Vol] 25 mmol/L Normal 21-31 [facility] Comment on above: Order Comment: No: D o not add to previous draw Performed By: #### 5 6101, 12515 #### [facility] [address] [place] [address], [place] Creatinine [Mass/Vol] 1.23 mg/dL Normal 0.70-1.30 [facility] Comment on above: Order Comment: No: D o not add to previous draw Performed By: #### 5 610, 89167 #### [facility] [address] [place] [address], [place] GFR/1.73 sq M predicted among blacks MDRD (S/P/Bld) [Vol rate/Area] mL/min/{1.73_m2} Normal >60 [facility] Comment on above: Order Comment: No: D o not add to previous draw Result Comment: Calc ulation may not be valid for patients over 70 years Performed By: #### 5 610, 25796 #### [facility] [address] [place] [address], [place] GFR/1.73 sq M predicted among non-blacks MDRD (S/P/Bld) [Vol rate/Area] 58 ml/min/1.73sq m Abnormal >60 [facility] Comment on above: Order Comment: No: D o not add to previous draw Result Comment: Calc ulation may not be valid for patients over 70 years Performed By: #### 5 610, 75961 #### [facility] [address] [place] [address], [place] Glucose [Mass/Vol] 207 mg/dL High 70-100 [facility] Comment on above: Order Comment: No: D o not add to previous draw Performed By: #### 5 610, 28639 #### [facility] [address] [place] [address], [place] Potassium [Moles/Vol] 3.7 mmol/L Normal 3.5-5.1 [facility] Comment on above: Order Comment: No: D o not add to previous draw Performed By: #### 5 610, 55560 #### [facility] [address] Sodium [Moles/Vol] 130 mmol/L Low 136-145 [facility] Comment on above: Order Comment: No: D o not add to previous draw Performed By: #### 5 610, 51959 #### [facility] [address] Urea nitrogen [Mass/Vol] 16 mg/dL Normal 7-25 [facility] Comment on above: Order Comment: No: D o not add to previous draw Performed By: #### 5 610, 08127 #### [facility] [address] [facility]. [address] CBC W/DIFFon 07-15-2018 ABS BASOPHILS 0.0 10*3/uL Normal 0.0-0.2 [facility] Comment on above: Order Comment: No: D o not add to previous draw Performed By: #### 5 610, 58994 #### [facility] [address] [facility]. [address] ABS IMM GRANS 0.1 10*3/uL Normal 0.0-0.2 [facility] Comment on above: Order Comment: No: D o not add to previous draw Performed By: #### 5 610, 27450 #### [facility] [address] [facility] [address], [facility] ABS NEUTROPHILS 7.6 10*3/uL Normal 1.6-7.6 [facility] Comment on above: Order Comment: No: D o not add to previous draw Performed By: #### 5 610, 53679 #### [facility] [address] [place] [address], [facility] Basophils/100 WBC (Bld) 0.3 % Normal 0.0-1.0 [facility] Comment on above: Order Comment: No: D o not add to previous draw Performed By: #### 5 6100, 05669 #### [facility] [address] [place] [address], [facility] Eosinophils (Bld) [#/Vol] 0.1 10*3/uL Normal 0.0-0.5 [facility] Comment on above: Order Comment: No: D o not add to previous draw Performed By: #### 5 6100, 20051 #### [facility] [address] [place] [address], [facility] Eosinophils/100 WBC (Bld) 1.6 % Normal 0.0-6.0 [facility] Comment on above: Order Comment: No: D o not add to previous draw Performed By: #### 5 6100, 03743 #### [facility] [address] [place] [address], [facility] Erythrocyte distribution width (RBC) [Ratio] 12.5 % Normal 11.5-15.0 [facility] Comment on above: Order Comment: No: D o not add to previous draw Performed By: #### 5 6100, 69329 #### [facility] [address] [place] [address], [facility] Hematocrit (Bld) [Volume fraction] 26.0 % Low 39.0-50.0 [facility] Comment on above: Order Comment: No: D o not add to previous draw Performed By: #### 5 6100, 96681 #### [facility] [address] [place] [address], [place] Hemoglobin (Bld) [Mass/Vol] 8.8 g/dL Low 13.0-17.0 [facility] Comment on above: Order Comment: No: D o not add to previous draw Performed By: #### 5 6100, 32793 #### [facility] [address] [place] [address], [place] IMM PLATELET FRAC 4.5 % Normal 0.8-6.3 [facility] Comment on above: Order Comment: No: D o not add to previous draw Performed By: #### 5 610, 77900 #### [facility] [address] [place] [address], [facility] IMMATURE GRANS 0.6 % Normal 0.0-1.0 [facility] Comment on above: Order Comment: No: D o not add to previous draw Performed By: #### 5 6100, 71208 #### [facility] [address] [place] [address], [facility] Lymphocytes (Bld) [#/Vol] 0.2 10*3/uL Low 1.2-4.0 [facility] Comment on above: Order Comment: No: D o not add to previous draw Performed By: #### 5 6100, 06814 #### [facility] [address] [place] [address], [facility] Lymphocytes/100 WBC (Bld) 2.1 % Low 20.0-45.0 [facility] Comment on above: Order Comment: No: D o not add to previous draw Performed By: #### 5 6100, 66543 #### [facility] [address] [place] [address], [facility] MCH (RBC) [Entitic mass] 31.7 pg Normal 27.0-33.0 [facility] Comment on above: Order Comment: No: D o not add to previous draw Performed By: #### 5 6100, 80758 #### [facility] [address] [place] [address], [place] MCHC (RBC) [Mass/Vol] 33.8 g/dL Normal 32.0-35.0 [facility] Comment on above: Order Comment: No: D o not add to previous draw Performed By: #### 5 6100, 81021 #### [facility] [address] [place] [address], [facility] MCV (RBC) [Entitic vol] 93.5 fL Normal 82.0-98.0 [facility] Comment on above: Order Comment: No: D o not add to previous draw Performed By: #### 5 610, 34680 #### [facility] [address] [place] [address], [facility] Monocytes (Bld) [#/Vol] 0.6 10*3/uL Normal 0.1-1.0 [facility] Comment on above: Order Comment: No: D o not add to previous draw Performed By: #### 5 6100, 87186 #### [facility] [address] [facility] [place] [address], [facility] MONOS 7.1 % Normal 5.0-12.0 [facility] Comment on above: Order Comment: No: D o not add to previous draw Performed By: #### 5 6100, 09869 #### [facility] [address] [place] [address], [facility] Neutrophils/100 WBC (Bld) 88.3 % High 40.0-72.0 [facility] Comment on above: Order Comment: No: D o not add to previous draw Performed By: #### 5 6100, 17454 #### [facility] [address] [facility] [place] [address], [facility] Nucleated RBC/100 WBC (Bld) [Ratio] 0 % Normal 0-0 [facility] Comment on above: Order Comment: No: D o not add to previous draw Performed By: #### 5 6100, 79128 #### [facility] [address] [place] [address], [place] PLAT CNT 113 10*3/uL Low 150-400 [facility] Comment on above: Order Comment: No: D o not add to previous draw Performed By: #### 5 6100, 13797 #### [facility] [address] [place] [address], [facility] RBC (Bld) [#/Vol] 2.78 10*6/uL Low 4.20-5.70 [facility] Comment on above: Order Comment: No: D o not add to previous draw Performed By: #### 5 610, 88445 #### [facility] [address] [place] [address], [place] WBC (Bld) [#/Vol] 8.62 10*3/uL Normal 4.00-10.60 [facility] Comment on above: Order Comment: No: D o not add to previous draw Performed By: #### 5 610, 86831 #### [facility] [address] [place] [address], [place] POC GLUCOSE LABon 07-15-2018 Glucose [Mass/Vol] 281 mg/dL High 70-100 [facility] Comment on above: Performed By: #### 5 610, 36572 #### [facility] [address] [place] [address], [place] Glucose [Mass/Vol] 305 mg/dL High 70-100 [facility] Comment on above: Performed By: #### 5 610, 41350 #### [facility] [address] [place] [address], [place] Glucose [Mass/Vol] 198 mg/dL High 70-100 [facility] Comment on above: Performed By: #### 5 610, 27781 #### [facility] [address] [place] [address], [place] Glucose [Mass/Vol] 227 mg/dL High 70-100 [facility] Comment on above: Performed By: #### 5 6101, 57219 #### [facility] [address] [place] [address], [place] BASIC METABOLIC PANELon 10-2 Calcium [Mass/Vol] 8.3 mg/dL Low 8.6-10.3 [facility] Comment on above: Order Comment: Unkno wn Performed By: #### 5 610, 33476 #### [facility] [address] [place] [address], [place] Chloride [Moles/Vol] 105 mmol/L Normal 98-107 [facility] Comment on above: Order Comment: Unkno wn Performed By: #### 5 610, 28925 #### [facility] [address] [place] [address], [place] CO2 [Moles/Vol] 24 mmol/L Normal 21-31 [facility] Comment on above: Order Comment: Unkno wn Performed By: #### 5 6100, 24142 #### [facility] [address] [place] [address], [place] Creatinine [Mass/Vol] 1.20 mg/dL Normal 0.70-1.30 [facility] Comment on above: Order Comment: Unkno wn Performed By: #### 5 610, 64260 #### [facility] [address] [place] [address], [place] GFR/1.73 sq M predicted among blacks MDRD (S/P/Bld) [Vol rate/Area] mL/min/{1.73_m2} Normal >60 [facility] Comment on above: Order Comment: Unkno wn Result Comment: Calc ulation may not be valid for patients over 70 years Performed By: #### 5 610, 33231 #### [facility] [address] [place] [address], [place] GFR/1.73 sq M predicted among non-blacks MDRD (S/P/Bld) [Vol rate/Area] 60 ml/min/1.73sq m Abnormal >60 [facility] Comment on above: Order Comment: Unkno wn Result Comment: Calc ulation may not be valid for patients over 70 years Performed By: #### 5 610, 82540 #### [facility] [address] [place] [address], [place] Glucose [Mass/Vol] 181 mg/dL High 70-100 [facility] Comment on above: Order Comment: Unkno wn Performed By: #### 5 610, 57591 #### [facility] [address] [place] [address], [place] Potassium [Moles/Vol] 3.7 mmol/L Normal 3.5-5.1 [facility] Comment on above: Order Comment: Unkno wn Performed By: #### 5 6100, 45868 #### [facility] [address] [place] [address], [place] Sodium [Moles/Vol] 133 mmol/L Low 136-145 [facility] Comment on above: Order Comment: Unkno wn Performed By: #### 5 6100, 96231 #### [facility] [address] [place] [address], [place] Urea nitrogen [Mass/Vol] 18 mg/dL Normal 7-25 [facility] Comment on above: Order Comment: Unkno wn Performed By: #### 5 6100, 33001 #### [facility] [address] [place] [address], [facility] CBC COMPLETE BLOOD COUNTon - Erythrocyte distribution width (RBC) [Ratio] 12.7 % Normal 11.5-15.0 [facility] Comment on above: Order Comment: Unkno wn Performed By: #### 5 610, 93028 #### [facility] [address] [place] [address], [place] Hematocrit (Bld) [Volume fraction] 28.6 % Low 39.0-50.0 [facility] Comment on above: Order Comment: Unkno wn Performed By: #### 5 610, 98873 #### [facility] [address] [place] [address], [place] Hemoglobin (Bld) [Mass/Vol] 9.8 g/dL Low 13.0-17.0 [facility] Comment on above: Order Comment: Unkno wn Performed By: #### 5 6100, 43978 #### [facility] [address] [place] [address], [facility] IMM PLATELET FRAC 4.1 % Normal 0.8-6.3 [facility] Comment on above: Order Comment: Unkno wn Performed By: #### 5 6100, 33609 #### [facility] [address] [place] [address], [facility] MCH (RBC) [Entitic mass] 31.5 pg Normal 27.0-33.0 [facility] Comment on above: Order Comment: Unkno wn Performed By: #### 5 6100, 35191 #### [facility] [address] [facility] MCHC (RBC) [Mass/Vol] 34.3 g/dL Normal 32.0-35.0 [facility] Comment on above: Order Comment: Unkno wn Performed By: #### 5 6100, 94019 #### [facility] [address] [facility] [place] [address], [facility] MCV (RBC) [Entitic vol] 92.0 fL Normal 82.0-98.0 [facility] Comment on above: Order Comment: Unkno wn Performed By: #### 5 6100, 47853 #### [facility] [address] [facility] [place] [address], [facility] Nucleated RBC/100 WBC (Bld) [Ratio] 0 % Normal 0-0 [facility] Comment on above: Order Comment: Unkno wn Performed By: #### 5 6100, 10958 #### [facility] [address] [facility] [address], [facility] PLAT CNT 119 10*3/uL Low 150-400 [facility] Comment on above: Order Comment: Unkno wn Performed By: #### 5 610, 97430 #### [facility] [address] [place] [address], [facility] RBC (Bld) [#/Vol] 3.11 10*6/uL Low 4.20-5.70 [facility] Comment on above: Order Comment: Unkno wn Performed By: #### 5 6100, 31133 #### [facility] [address] [place] [address], [place] WBC (Bld) [#/Vol] 6.45 10*3/uL Normal 4.00-10.60 [facility] Comment on above: Order Comment: Unkno wn Performed By: #### 5 6100, 88902 #### [facility] [address] [place] [address], [facility] MAGNESIUM BLOODon 07-14-2018 Magnesium [Mass/Vol] 1.3 mg/dL Low 1.9-2.7 [facility] Comment on above: Order Comment: Unkno wn Performed By: #### 5 6100, 17087 #### [facility] [address] [place] [address], [place] PHOSPHORUS BLOODon 8 Phosphate [Mass/Vol] 3.4 mg/dL Normal 2.5-5.0 [facility] Comment on above: Order Comment: Unkno wn Performed By: #### 5 6100, 92001 #### [facility] [address] [place] [address], [place] POC GLUCOSE LABon 07-14-2018 Glucose [Mass/Vol] 253 mg/dL High 70-100 [facility] Comment on above: Performed By: #### 5 6100, 82316 #### [facility] [address] [place] [address], [place] Glucose [Mass/Vol] 272 mg/dL High 70-100 [facility] Comment on above: Performed By: #### 5 6100, 06744 #### [facility] [address] [place] [address], [place] Glucose [Mass/Vol] 167 mg/dL High 70-100 [facility] Comment on above: Performed By: #### 5 610, 36064 #### [facility] [address] [facility]. [address] Glucose [Mass/Vol] 220 mg/dL High 70-100 [facility] Comment on above: Performed By: #### 5 610, 76498 #### [facility] [address] VITAMIN D 25-HYDROXYon 07-14 VITAMIN D 25-OH 26.4 ng/mL Low 30.0-80.0 [facility] Comment on above: Result Comment: >80. 0 Toxicity possible Performed By: #### 5 6101, 08101 #### [facility] [address] APTTon 07-13-2018 aPTT Coag (Bld) [Time] 23.9 s Low 25.0-35.0 [facility] Comment on above: Result Comment: ALL RESULTS MUST BE INTERPRETED WITH RESPECT TO BLOOD DRAWING ARTIFACT OR DILUTION ERROR OF ANTICOAGULANT AT THE TIME OF SAMPLING. THE APTT SHOULD NOT BE USED TO MONITOR UNFRACTIONATED HEPARIN THERAPY, THIS LABORATORY NO LONGER HAS AN ESTABLISHED THERAPEUTIC RANGE BASED ON THE APTT. IT IS RECOMMENDED THAT THE [facility]FH - HEPARIN ASSAY (ANTI-XA ACTIVITY) BE USED FOR THIS PURPOSE. Performed By: #### 5 6101, 68833 #### [facility] [address] [facility]. [address] BASIC METABOLIC PANELon -2 Calcium [Mass/Vol] 8.7 mg/dL Normal 8.6-10.3 [facility] Comment on above: Performed By: #### 0 0071 #### [facility] [address] [facility]. [address] Chloride [Moles/Vol] 103 mmol/L Normal 98-107 [facility] Comment on above: Performed By: #### 0 0071 #### [facility] [address] [place] [address], [place] CO2 [Moles/Vol] 24 mmol/L Normal 21-31 [facility] Comment on above: Performed By: #### 0 0071 #### [facility] [address] [place] [address], [place] Creatinine [Mass/Vol] 1.18 mg/dL Normal 0.70-1.30 [facility] Comment on above: Performed By: #### 0 0071 #### [facility] [address] [place] [address], [place] GFR/1.73 sq M predicted among blacks MDRD (S/P/Bld) [Vol rate/Area] mL/min/{1.73_m2} Normal >60 [facility] Comment on above: Result Comment: Calc ulation may not be valid for patients over 70 years Performed By: #### 0 0071 #### [facility] [address] [place] [address], [place] GFR/1.73 sq M predicted among non-blacks MDRD (S/P/Bld) [Vol rate/Area] mL/min/{1.73_m2} Normal >60 [facility] Comment on above: Result Comment: Calc ulation may not be valid for patients over 70 years Performed By: #### 0 0071 #### [facility] [address] [place] [address], [place] Glucose [Mass/Vol] 165 mg/dL High 70-100 [facility] Comment on above: Performed By: #### 0 0071 #### [facility] [address] [place] [address], [place] Potassium [Moles/Vol] 4.1 mmol/L Normal 3.5-5.1 [facility] Comment on above: Performed By: #### 0 0071 #### [facility] [address] [place] [address], [place] Sodium [Moles/Vol] 132 mmol/L Low 136-145 [facility] Comment on above: Performed By: #### 0 0071 #### [facility] [address] Urea nitrogen [Mass/Vol] 21 mg/dL Normal 7-25 [facility] Comment on above: Performed By: #### 0 0071 #### [facility] [address] CBC W/DIFFon 07-13-2018 ABS BASOPHILS 0.0 10*3/uL Normal 0.0-0.2 [facility] Comment on above: Performed By: #### 5 0103 #### [facility] [address] ABS IMM GRANS 0.0 10*3/uL Normal 0.0-0.2 [facility] Comment on above: Performed By: #### 5 0103 #### [facility] [address] ABS NEUTROPHILS 9.8 10*3/uL High 1.6-7.6 [facility] Comment on above: Performed By: #### 5 0103 #### [facility] [address] Basophils/100 WBC (Bld) 0.4 % Normal 0.0-1.0 [facility] Comment on above: Performed By: #### 5 0103 #### [facility] [address] Eosinophils (Bld) [#/Vol] 0.1 10*3/uL Normal 0.0-0.5 [facility] Comment on above: Performed By: #### 5 102 #### [facility] [address] Eosinophils/100 WBC (Bld) 0.5 % Normal 0.0-6.0 [facility] Comment on above: Performed By: #### 5 3 #### [facility] [address] [facility] [address] Erythrocyte distribution width (RBC) [Ratio] 12.2 % Normal 11.5-15.0 [facility] Comment on above: Performed By: #### 3 #### [facility] [address] [facility]. [address] Hematocrit (Bld) [Volume fraction] 34.8 % Low 39.0-50.0 [facility] Comment on above: Performed By: #### 3 #### [facility] [address] Hemoglobin (Bld) [Mass/Vol] 12.1 g/dL Low 13.0-17.0 [facility] Comment on above: Performed By: #### 3 #### [facility] [address] [facility]. [address] IMMATURE GRANS 0.4 % Normal 0.0-1.0 [facility] Comment on above: Performed By: #### 5 102 #### [facility] [address] [facility]. [address] Lymphocytes (Bld) [#/Vol] 0.6 10*3/uL Low 1.2-4.0 [facility] Comment on above: Performed By: #### 5 3 #### [facility] [address] Lymphocytes/100 WBC (Bld) 5.4 % Low 20.0-45.0 [facility] Comment on above: Performed By: #### 5 3 #### [facility] [address] MCH (RBC) [Entitic mass] 31.1 pg Normal 27.0-33.0 [facility] Comment on above: Performed By: #### 102 #### [facility] [address] MCHC (RBC) [Mass/Vol] 34.8 g/dL Normal 32.0-35.0 [facility] Comment on above: Performed By: #### 5 3 #### [facility] [address] MCV (RBC) [Entitic vol] 89.5 fL Normal 82.0-98.0 [facility] Comment on above: Performed By: #### 102 #### [facility] [address] Monocytes (Bld) [#/Vol] 0.5 10*3/uL Normal 0.1-1.0 [facility] Comment on above: Performed By: #### 102 #### [facility] [address] MONOS 4.3 % Low 5.0-12.0 [facility] Comment on above: Performed By: #### 5 102 #### [facility] [address] Neutrophils/100 WBC (Bld) 89.0 % High 40.0-72.0 [facility] Comment on above: Performed By: #### 3 #### [facility] [address] Nucleated RBC/100 WBC (Bld) [Ratio] 0 % Normal 0-0 [facility] Comment on above: Performed By: #### 3 #### [facility] [address] [place] [address], [facility] PLAT CNT 177 10*3/uL Normal 150-400 [facility] Comment on above: Performed By: #### 3 #### [facility] [address] [place] [address], [facility] RBC (Bld) [#/Vol] 3.89 10*6/uL Low 4.20-5.70 [facility] Comment on above: Performed By: #### 5 0103 #### [facility] [address] [place] [address], [facility] WBC (Bld) [#/Vol] 11.04 10*3/uL High 4.00-10.60 [facility] Comment on above: Performed By: #### 5 0103 #### [facility] [address] [place] [address], [facility] FEMUR RIGHT 2 VWSon 07-13-20 18 FEMUR RIGHT 2 VWS [facility] Department of Radiology [address] [place] [id number] Patient Name: ZACH MANUEL : 1945 Sex: M Age: Race: White Pt. Location: [id number] Patient Status: I Ordered Date: 07/13/2018 7:00:00 AM Completed Date: 07/13/2018 01:57 PM Requesting Provider: DANIELA ANTONY Attending Provider: DANIELA ANTONY Report Copy To: Signs & Symptoms: RT FEMUR IM NAIL History: RT FEMUR IM NAIL Comments: RT FEMUR IM NAIL Exam: FEMUR RIGHT 2 VWS FEMUR RIGHT 2 VWS 07/13/2018 1:57 PM EDT SIGNS AND SYMPTOMS: RT FEMUR IM NAIL TECHNOLOGIST COMMENTS: right hip IM nail Dr. Antony 5 minutes 17 seconds QUESTION FOR THE RADIOLOGIST: RT FEMUR IM NAIL PROTOCOL: AP(PA) and Lateral views were obtained. COMPARISON: None FINDINGS: Soft tissues: Bones: Joints: IMPRESSION: Documentation Electronically signed by:Soila Morris. Transcribed by: [email or web address], User Resident: Electronically Signed by: SOILA MORRIS @ 07/15/2018 12:16 PM Normal [facility] Comment on above: Order Comment: RT FE MUR IM NAIL FEMUR RIGHT 2 S [facility] Department of Radiology [address] [place] [id number] Patient Name: ZACH MANUEL : 1945 Sex: M Age: Race: White Pt. Location: [facility] Patient Status: I Ordered Date: 07/12/2018 9:40:00 PM Completed Date: 07/12/2018 10:35 PM Requesting Provider: MARY VELEZ Attending Provider: MARY VELEZ Report Copy To: Signs & Symptoms: Pain ( specify Location) History: Patient history not available Comments: R/O FX, right knee Exam: FEMUR RIGHT 2 [facility] FEMUR RIGHT 2 S 07/12/2018 10:35 PM EDT SIGNS AND SYMPTOMS: Pain ( specify Location) TECHNOLOGIST COMMENTS: s/p fall; right hip pain QUESTION FOR THE RADIOLOGIST: R/O FX, right knee PROTOCOL: AP(PA) and Lateral views were obtained. COMPARISON: None FINDINGS: Soft tissues: Soft tissue swelling around the fracture site. Bones: Displaced proximal fracture of the right femur diaphysis with proximal fracture bone displaced laterally. Joints: Maintained. IMPRESSION: Laterally displaced proximal fracture of the right femoral diaphysis. Approved by:Renan Sewell on 07/13/2018 1:59 AM EDT. I, Zoran Cobb, have reviewed the images and report and concur with these findings. Electronically signed by:Zoran Cobb. Transcribed by: [email or web address], User Resident: RENAN SEWELL Electronically Signed by: ZORAN COBB @ 07/13/2018 06:51 PM I personally read this/these film(s) with this resident Normal [facility] Comment on above: Order Comment: R/O F X, right knee History and Physicalon 07-13 History and Physical MR#: [id number] [facility] Pt. Name: Zach Manuel Admitted: 07/13/2018 Date of : 1945 Attending Physician: Natalie Barajas M.D. Room #: 6AB [id number] Discharge Date: HISTORY AND PHYSICAL CHIEF COMPLAINT: Fall, right hip fracture. HISTORY OF PRESENT ILLNESS: The patient is a 73-year-old gentleman with past medical history of diabetes, multiple myeloma that was treated and now under surveillance, Paget's disease and ulcerative colitis, presented to the ER as a transfer from [facility] ER. Orthopedist service accepted the patient for treatment of right hip fracture. The patient reports that today approximately 6 hours prior to arrival to [facility] ER, he was accidentally hit by his tractor and fell and developed pain in his right hip. He denies any loss of consciousness. He did not hit his head. There are no other complaints or concerns. The patient was brought to the ER and diagnosed with right hip fracture. 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 He is physically active whole [place]. He denies any chest pain or shortness of breath with exertion. He quit smoking 28 years ago. No orthopnea. No chest pain. No nausea, vomiting, or abdominal pain. No headaches or lightheadedness. No dysuria or frequency. No skin rash. MEDICATIONS: See the list. ALLERGIES: Sulfa and azithromycin. PAST SURGERIES: Colectomy, back surgery, and cholecystectomy. PAST MEDICAL HISTORY: Diabetes, history of multiple myeloma. The patient was treated more than 10 years ago and is now under surveillance, Paget disease, ulcerative colitis, status post colectomy, and hyperlipidemia. SOCIAL HISTORY: The patient is ex-smoker. He quit smoking 28 years ago. He denies alcohol or drug use. 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 FAMILY HISTORY: Positive for liver cirrhosis in his father and CHF in his mother. REVIEW OF SYSTEMS: Review of systems was done, was otherwise negative except pertinent positive findings mentioned in HPI. PHYSICAL EXAMINATION: VITAL SIGNS: Blood pressure 135/59, pulse 88, oxygen saturation 93% on room air, respirations 16, temperature 98.2, height 69 inches, weight 203 pounds. GENERAL: The patient is alert and oriented x3. No apparent distress. He is able to answer questions appropriately, is able to speak full sentences. EYES: No conjunctival erythema. EARS: The patient is hard of hearing bilaterally and wears hearing aids. MOUTH: Moist oral mucosa. NECK: Supple. RESPIRATORY: Clear to auscultation bilaterally. No wheezing, rhonchi, or crackles. CARDIOVASCULAR: Regular rate and rhythm. S1 and S2. No murmurs, rubs, or gallops. ABDOMEN: Soft, nondistended, nontender. No rigidity. No rebound. EXTREMITIES: No pedal edema. There is external rotation of the right leg. Tenderness over the right hip. No bruises. NEUROLOGIC: No sensory or motor deficits. Alert and oriented x3. PSYCHIATRIC: Normal affect and mood. SKIN: No rash. Warm and dry to touch. LABORATORY DATA: White blood cells 11.04, hemoglobin 12.1, hematocrit 34.8, platelets 177, PT 13.3, INR 1.01, PTT 23.9, glucose 165, BUN 21, creatinine 1.18, sodium 132, potassium 4.1, chloride 103, CO2 of 24, calcium 8.7. ASSESSMENT: Fall, right hip fracture, anemia, mild hyponatremia, type 2 diabetes, history of multiple myeloma, Paget's disease, ulcerative colitis, status post colectomy, hyperlipidemia, and ex-smoker. PLAN: 1. The patient is admitted to Med/Surg. 2. We will continue him on normal saline 100 mL/h. 3. Right hip fracture. We will provide pain control. Ortho already consulted from ER and they have seen the patient and they plan to do surgery tomorrow. We will order EKG. So far, the patient is cleared for surgery. He is moderate risk for perisurgical complications. 4. Diabetes. The patient will be kept n.p.o. Also, we will hold his home diabetic medications. We will check blood sugar every 6 hours and cover with insulin sliding scale. We will provide DVT and GI prophylaxis. Digital Media Buyer for possible rehab placement and PT and OT once the patient will have surgery. Electronically Signed by: Natalie Barajas M.D. 07/14/2018 12:41 A Natalie Barajas M.D. Date Dict: 07/13/2018/01:20 Ángela/Natalie Barajas M.D. Date Trans: 07/13/2018 06:08 Ángela/tata [id number] Normal [facility] Operative Reporton 07-13-201 8 Operative Report MR#: [id number] I [facility] Pt. Name: Zach Manuel Room #: [id number] Discharge Date: Birthdate: 1945 OPERATIVE REPORT DATE OF SURGERY: 07/13/2018 SURGEON: Daniela Antony M.D. CUSTOMER OPERATIONS REPRESENTATIVE: Rob Gomez M.D. PREOPERATIVE DIAGNOSIS: Right subtrochanteric proximal femur fracture. POSTOPERATIVE DIAGNOSIS: Right subtrochanteric proximal femur fracture. PROCEDURE PERFORMED: Cephalomedullary nailing of right subtrochanteric femur fracture. ANESTHESIA: General. SPECIMENS: One specimen of the femoral reamings from the femoral neck was sent. IMPLANTS: One 11.5 mm x 40 cm [employer] InterTAN nail with one 95 mm lag screw and 2 distal interlocking screws, all [employer] InterTAN hardware. ESTIMATED BLOOD LOSS: 200 mL. IV FLUIDS: Per Anesthesia. TOURNIQUET: None. DRAINS: None. X-RAYS: Intraoperative fluoroscopy was used to confirm fracture reduction and hardware placement. COMPLICATIONS: None. INDICATIONS FOR PROCEDURE: Mr. Manuel is a 73-year-old male with history of Paget's and multiple myeloma who presented with a right subtrochanteric femur fracture after a fall. Given the mortality benefit, he was offered operative fixation. Informed consent was obtained and he elected to proceed. DESCRIPTION OF PROCEDURE: The patient was met in the preoperative holding area. Informed consent was reviewed. The patient was transferred to the operating room in stable condition. He was placed supine on the fracture table. The right lower extremity was sterilely prepped and draped in a standard fashion. Preoperative antibiotics were given per protocol. A surgical time-out was performed confirming the correct patient and correct surgical site. X-ray was used to localize the incision at the proximal aspect of the greater trochanter. The skin was incised longitudinally approximately 8 cm. Electrocautery was used to obtain hemostasis in the subcutaneous fat tissue. The abductor muscles were then incised using electrocautery in order to palpate the greater trochanter. Blunt dissection was carried out until the greater trochanter was easily palpable. The starting awl was used to identify the position at the medial aspect of the tip of the greater trochanter in the center position in the sagittal plane. Once we were satisfied with our starting point, the awl was gently malleted into place. We checked the awl position on orthogonal x-rays and then placed the guidewire distally. The nail was measured to be 40 cm at this point. X-rays were used to confirm that the guidewire remained intramedullary. The fracture was reduced prior to insertion of the guidewire using 2 crutches, one with an anteriorly directed force and one with a laterally directed force, applied to the distal fragment in order to reduce the fracture. The guidewire was then inserted past the fracture site. We then reamed sequentially over the guidewire. We reamed to a size 13.5 reamer. We then used the larger reamer to dilate the entry point of the nail. The nail was then placed under fluoroscopic guidance and gently malleted into place until the cephalomedullary component aligned with the femoral neck. We confirmed that the nail remained in the center-center position distally at the knee. We then placed a guide pin for the cephalomedullary component, measured the guide pin to be 95 mm and then placed the lag screw in a standard fashion. Prior to placing the screw, we tapped due to his excessively hard bone, given this history of Paget's and bisphosphonate use. Once the lag screw was in place, we turned our attention to the distal interlocking screws. The distal interlocking screws, we used perfect eagle technique. The guide pin was placed under fluoroscopic guidance and gently malleted across the nail. We then confirmed on orthogonal x-rays that the guide pin was within the distal interlock holes. We then probed these under power, measured the distance of the screws, removed this guidepin and placed the appropriate length screws under fluoroscopic guidance. At this point, we obtained final x-rays demonstrating the nail to be in the center-center position with adequate fracture reduction and excellent position within the femoral head and neck of the cephalomedullary component. The wounds were then copiously irrigated with Betadine and normal saline followed by plain normal saline. The deep tissue was closed with 0 Vicryl. The subcutaneous tissue was closed with 2-0 Vicryl and the skin was closed with 3-0 Novafil. A sterile dressing was applied consisting of Xeroform, 4x4s, and Tegaderm. The patient was awoken from general anesthesia without complication. He will be admitted to the ICU overnight for close monitoring. We will place him on antibiotics consisting of Ancef for at least 24 hours postoperatively. He will remain on Lovenox while admitted and he will continue this for 4 to [address] Antony was present for all critical portions of this case and made all essential decisions regarding this patient's care. Electronically Signed by: Daniela Antony M.D. 07/18/2018 01:39 P Daniela Antony M.D. I was present for the kinsey and critical portions and I was otherwise immediately available to assist. Date Dict: 07/13/2018/03:11 P/Rob Gomez MD Date Trans: 07/13/2018 09:17 P/tata [id number] cc: Hanna Mathias M.D. [address] [place] [address] Normal [facility] POC GLUCOSE LABon 07-13-2018 Glucose [Mass/Vol] 249 mg/dL High 70-100 [facility] Comment on above: Performed By: #### [id number] #### [facility] [address] [place] [address], [facility] Glucose [Mass/Vol] 226 mg/dL High 70-100 [facility] Comment on above: Performed By: #### [id number] #### [facility] [address] [place] [address], [place] Glucose [Mass/Vol] 144 mg/dL High 70-100 [facility] Comment on above: Performed By: #### [id number] #### [facility] [address] [place] [address], [place] Glucose [Mass/Vol] 130 mg/dL High 70-100 [facility] Comment on above: Performed By: #### [id number] #### [facility] [address] [place] [address], [facility] PROTHROMBIN TIMEon 8 INR Coag (PPP) [Relative time] 1.01 {INR} Normal 0.91-1.16 [facility] Comment on above: Result Comment: ACCC P RECOMMENDED INR FOR WARFARIN THERAPY ----- ------- CONDITION INR PROPHYLAXIS OF VENOUS THROMBOSIS 2-3 (HIGH-RISK SURGERY) TREATMENT OF VENOUS THROMBOSIS 2-3 TREATMENT OF PULMONARY EMBOLISM 2-3 PREVENTION OF SYSTEMIC EMBOLISM: 2-3 ACUTE MYOCARDIAL INFARCTION TISSUE HEART VALVES VALVULAR HEART DISEASE ATRIAL FIBRILLATION RECURRENT SYSTEMIC EMBOLISM MECHANICAL HEART VALVE 2.5-3.5 FROM: ORAL ANTICOAGULANTS. MECHANISM OF ACTION, CLINICAL EFFECTIVENESS, AND OPTIMAL THERAPEUTIC RANGE. CHEST 1995;108:[id number]. Performed By: #### [id number], [id number] #### [facility] [address] [place] [address], [facility] PT Coag (PPP) [Time] 13.3 s Normal 12.3-14.8 [facility] Comment on above: Result Comment: ALL RESULTS MUST BE INTERPRETED WITH RESPECT TO BLOOD DRAWING ARTIFACT OR DILUTION ERROR OF ANTICOAGULANT AT THE TIME OF SAMPLING. Performed By: #### [id number], [id number] #### [facility] [address] [place] [address], [facility] TYPE AND SCREENon 07-13-2018 ABO INTERPRETATION O Normal [facility] Comment on above: Performed By: #### [id number] #### [facility] [address] [place] [id number], [facility] RH INTERPRETATION Positive Normal [facility] Comment on above: Performed By: #### [id number] #### [facility] [address] [place] [address], [facility] RBC'S 2 UNITSon 07-12-2018 CROSSMATCH INTERP 1 COMP Normal [facility] Comment on above: Performed By: #### [id number] #### [facility] [address] [place] [id number], [facility] CROSSMATCH INTERP 2 COMP Normal [facility] Comment on above: Performed By: #### [id number] #### [facility] [address] [place] [address], [facility] PRODUCT CODE 1 [id number] Normal [facility] Comment on above: Performed By: #### [id number] #### [facility] [address] [place] [address], [facility] PRODUCT CODE 2 [id number] Normal [facility] Comment on above: Performed By: #### [id number] #### [facility] [address] [place] [address], [facility] PRODUCT STATUS 1 RE Normal [facility] Comment on above: Result Comment: Resu lt changed by IF on 07/16/2018 09:30. The previous value was XM. Performed By: #### [id number] #### [facility] [address] [place] [address], [facility] PRODUCT STATUS 2 RE Normal [facility] Comment on above: Result Comment: Resu lt changed by IF on 07/16/2018 09:30. The previous value was XM. Performed By: #### [id number] #### [facility] [address] [place] [address], [facility] UNIT ABO 1 O Normal [facility] Comment on above: Performed By: #### [id number] #### [facility] [address] [place] [address], [facility] UNIT ABO 2 O Normal [facility] Comment on above: Performed By: #### [id number] #### [facility] [address] [place] [address], [facility] UNIT ID 1 [id number] Normal [facility] Comment on above: Performed By: #### [id number] #### [facility] [address] [place] [address], [facility] UNIT ID 2 [id number] Normal [facility] Comment on above: Performed By: #### [id number] #### [facility] [address] [place] [address], [facility] UNIT RH 1 Positive Normal [facility] Comment on above: Performed By: #### [id number] #### [facility] [address] [place] [address], [facility] UNIT RH 2 Positive Normal [facility] Comment on above: Performed By: #### [id number] #### [facility] [address] Vital Signs Date Time Vital Sign Value Performing Clinician Olga coles 02-26-2024 12:53-0400 Body height 175.3 cm Uriel Gunter MD Work Phone: [facility] 02-26-2024 12:53-0400 Body mass index (BMI) [Ratio] 27.43 kg/m2 Uriel Gunter MD Work Phone: [facility] 02-26-2024 12:53-0400 Body temperature 97.59 [degF] Uriel Gunter MD Work Phone: [facility] 02-26-2024 12:53-0400 Body weight 84.3 kg Uriel Gunter MD Work Phone: [facility] 02-26-2024 12:53-0400 Diastolic blood pressure 68 mm[Hg] Uriel Gunter MD Work Phone: [facility] 02-26-2024 12:53-0400 Heart rate 59 /min Uriel Gunter MD Work Phone: [facility] 02-26-2024 12:53-0400 Respiratory rate 18 /min Uriel Gunter MD Work Phone: [facility] 02-26-2024 12:53-0400 SaO2% (BldA) [Mass fraction] 97 % Uriel Gunter MD Work Phone: [facility] 02-26-2024 12:53-0400 Systolic blood pressure 126 mm[Hg] Uriel Gunter MD Work Phone: [facility] 11-27-2023 13:02-0500 Body height 175.3 cm Claudia Wilson APRN.UNIT RECEPTIONIST Work Phone: [facility] 11-27-2023 13:02-0500 Body temperature 97.9 [degF] Claudia Wilson APRN.UNIT RECEPTIONIST Work Phone: [facility] 11-27-2023 13:02-0500 Body weight 87.7 kg Claudia Wilson DORMITORY COUNSELOR.UNIT RECEPTIONIST Work Phone: [facility] 11-27-2023 13:02-0500 Diastolic blood pressure 51 mm[Hg] Claudia Wilson DORMITORY COUNSELOR.UNIT RECEPTIONIST Work Phone: [facility] 11-27-2023 13:02-0500 Heart rate 65 /min Claudia Wilson DORMITORY COUNSELOR.UNIT RECEPTIONIST Work Phone: [facility] 11-27-2023 13:02-0500 Respiratory rate 18 /min Claudia Wilson DORMITORY COUNSELOR.UNIT RECEPTIONIST Work Phone: [facility] 11-27-2023 13:02-0500 SaO2% (BldA) [Mass fraction] 97 % Claudia Wilson DORMITORY COUNSELOR.UNIT RECEPTIONIST Work Phone: [facility] 11-27-2023 13:02-0500 Systolic blood pressure 154 mm[Hg] Claudia Wilson DORMITORY COUNSELOR.UNIT RECEPTIONIST Work Phone: [facility] 08-28-2023 13:08-0500 Body height 175.3 cm Uriel Gunter MD Work Phone: [facility] 08-28-2023 13:08-0500 Body temperature 97.2 [degF] Uriel Gunter MD Work Phone: [facility] 08-28-2023 13:08-0500 Body weight 86.27 kg Uriel Gunter MD Work Phone: [facility] 08-28-2023 13:08-0500 Diastolic blood pressure 68 mm[Hg] Uriel Gunter MD Work Phone: [facility] 08-28-2023 13:08-0500 Heart rate 62 /min Uriel Gunter MD Work Phone: [facility] 08-28-2023 13:08-0500 Respiratory rate 20 /min Uriel Gunter MD Work Phone: [facility] 08-28-2023 13:08-0500 SaO2% (BldA) [Mass fraction] 98 % Uriel Gunter MD Work Phone: [facility] 08-28-2023 13:08-0500 Systolic blood pressure 119 mm[Hg] Uriel Gunter MD Work Phone: [facility] 05-29-2023 12:40-0400 Body height 175.3 cm Uriel Gunter MD Work Phone: [facility] 05-29-2023 12:40-0400 Body temperature 97.2 [degF] Uriel Gunter MD Work Phone: [facility] 05-29-2023 12:40-0400 Body weight 87.45 kg Uriel Gunter MD Work Phone: [facility] 05-29-2023 12:40-0400 Diastolic blood pressure 49 mm[Hg] Uriel Gunter MD Work Phone: [facility] 05-29-2023 12:40-0400 Heart rate 56 /min Uriel Gunter MD Work Phone: [facility] 05-29-2023 12:40-0400 Respiratory rate 16 /min Uriel Gunter MD Work Phone: [facility] 05-29-2023 12:40-0400 SaO2% (BldA) [Mass fraction] 98 % Uriel Gunter MD Work Phone: [facility] 05-29-2023 12:40-0400 Systolic blood pressure 136 mm[Hg] Uriel Gunter MD Work Phone: [facility] 12-05-2022 13:00-0400 Body height 175.3 cm Uriel Gunter MD Work Phone: [facility] 12-05-2022 13:00-0400 Body temperature 97.11 [degF] Uriel Gunter MD Work Phone: [facility] 12-05-2022 13:00-0400 Body weight 85.55 kg Uriel Gunter MD Work Phone: [facility] 12-05-2022 13:00-0400 Diastolic blood pressure 58 mm[Hg] Uriel Gunter MD Work Phone: [facility] 12-05-2022 13:00-0400 Heart rate 60 /min Uriel Gunter MD Work Phone: [facility] 12-05-2022 13:00-0400 Respiratory rate 18 /min Uriel Gunter MD Work Phone: [facility] 12-05-2022 13:00-0400 SaO2% (BldA) [Mass fraction] 97 % Uriel Gunter MD Work Phone: [facility] 12-05-2022 13:00-0400 Systolic blood pressure 135 mm[Hg] Uriel Gunter MD Work Phone: [facility] 09-12-2022 15:00-0500 Body height 175.3 cm Uriel Gunter MD Work Phone: [facility] 09-12-2022 15:00-0500 Body temperature 97.59 [degF] Uriel Gunter MD Work Phone: [facility] 09-12-2022 15:00-0500 Body weight 87.82 kg Uriel Gunter MD Work Phone: [facility] 09-12-2022 15:00-0500 Diastolic blood pressure 53 mm[Hg] Uriel Gunter MD Work Phone: [facility] 09-12-2022 15:00-0500 Heart rate 67 /min Uriel Gunter MD Work Phone: [facility] 09-12-2022 15:00-0500 Respiratory rate 18 /min Uriel Gunter MD Work Phone: [facility] 09-12-2022 15:00-0500 SaO2% (BldA) [Mass fraction] 97 % Uriel Gunter MD Work Phone: [facility] 09-12-2022 15:00-0500 Systolic blood pressure 123 mm[Hg] Uriel Gunter MD Work Phone: [facility] 06-20-2022 12:37-0400 Body height 175.3 cm Claudia Wilson APRN.CNP Work Phone: [facility] 06-20-2022 12:37-0400 Body temperature 97.11 [degF] Claudia Wilson DORMITORY COUNSELOR.UNIT RECEPTIONIST Work Phone: [facility] 06-20-2022 12:37-0400 Body weight 89.81 kg Claudia Wilson DORMITORY COUNSELOR.UNIT RECEPTIONIST Work Phone: [facility] 06-20-2022 12:37-0400 Diastolic blood pressure 52 mm[Hg] Claudia Wilson DORMITORY COUNSELOR.UNIT RECEPTIONIST Work Phone: [facility] 06-20-2022 12:37-0400 Heart rate 79 /min Claudia Wilson DORMITORY COUNSELOR.UNIT RECEPTIONIST Work Phone: [facility] 06-20-2022 12:37-0400 Respiratory rate 16 /min Claudia Wilson DORMITORY COUNSELOR.UNIT RECEPTIONIST Work Phone: [facility] 06-20-2022 12:37-0400 SaO2% (BldA) [Mass fraction] 97 % Claudia Wilson DORMITORY COUNSELOR.UNIT RECEPTIONIST Work Phone: [facility] 06-20-2022 12:37-0400 Systolic blood pressure 152 mm[Hg] Claudia Wilson DORMITORY COUNSELOR.UNIT RECEPTIONIST Work Phone: [facility] 03-21-2022 12:49-0400 Body height 175.3 cm Uriel Gunter MD Work Phone: [facility] 03-21-2022 12:49-0400 Body temperature 97 [degF] Uriel Gunter MD Work Phone: [facility] 03-21-2022 12:49-0400 Body weight 88.81 kg Uriel Gunter MD Work Phone: [facility] 03-21-2022 12:49-0400 Diastolic blood pressure 54 mm[Hg] Uriel Gunter MD Work Phone: [facility] 03-21-2022 12:49-0400 Heart rate 65 /min Uriel Gunter MD Work Phone: [facility] 03-21-2022 12:49-0400 Respiratory rate 16 /min Uriel Gunter MD Work Phone: [facility] 03-21-2022 12:49-0400 SaO2% (BldA) [Mass fraction] 100 % Uriel Gunter MD Work Phone: [facility] 03-21-2022 12:49-0400 Systolic blood pressure 138 mm[Hg] Uriel Gunter MD Work Phone: [facility] 01-24-2022 12:42-0400 Body height 175.3 cm Uriel Gunter MD Work Phone: [facility] 01-24-2022 12:42-0400 Body temperature 98.01 [degF] Uriel Gunter MD Work Phone: [facility] 01-24-2022 12:42-0400 Body weight 88.91 kg Uriel Gunter MD Work Phone: [facility] 01-24-2022 12:42-0400 Diastolic blood pressure 50 mm[Hg] Uriel Gunter MD Work Phone: [facility] 01-24-2022 12:42-0400 Heart rate 64 /min Uriel Gunter MD Work Phone: [facility] 01-24-2022 12:42-0400 Respiratory rate 18 /min Uriel Gunter MD Work Phone: [facility] 01-24-2022 12:42-0400 SaO2% (BldA) [Mass fraction] 98 % Uriel Gunter MD Work Phone: [facility] 01-24-2022 12:42-0400 Systolic blood pressure 136 mm[Hg] Uriel Gunter MD Work Phone: [facility] Encounters Encounter Date Encounter Type Care Provider Facility Start: 04-08-2024 Refill Uriel Gunter MD Work Phone: [facility] Comment on above: Refill Request Start: 03-06-2024 Refill Uriel Gunter MD Work Phone: [facility] Comment on above: Refill Request Start: 02-29-2024 Telephone encounter Juan escalante RN Work Phone: Hematology/Oncology Comment on above: Care Coordination (L abs) Start: 02-26-2024 End: 02-26-2024 Patient encounter procedure Uriel Gunter MD Work Phone: Hematology/Oncology Start: 02-26-2024 End: 02-26-[address] Work Phone: Hematology/Oncology Comment on above: Multiple myeloma not having achieved remission (HCC) (Primary Dx); Paget disease of bone Multiple myeloma not having achieved remission (HCC) (Primary Dx); Paget disease of bone; Type 2 diabetes mellitus without complication, with long-term current use of insulin (HCC); H/O ulcerative colitis; Stage 3 chronic kidney disease, unspecified whether stage 3a or 3b CKD (HCC); Elevated prostate specific antigen (PSA) Start: 02-06-2024 Refill Ainsley YoungerNamsaida ichumaira [facility] Work Phone: [facility] Comment on above: Refill Request (revl imid) Start: 01-28-2024 Refill Porsche Adame [facility] Work Phone: [facility] Comment on above: Refill Request Start: 01-08-2024 Refill Uriel Gunter MD Work Phone: [facility] Comment on above: Refill Request Start: 12-10-2023 Refill Porsche Adame [facility] Work Phone: [facility] Comment on above: Refill Request Start: 11-27-2023 End: 11-27-2023 Patient encounter procedure Claudia Wilson APRN.UNIT RECEPTIONIST Work Phone: [facility] Start: 11-27-2023 End: 11-27-2023 ambulatory Claudia Wilson APRN.CNP Work Phone: Hematology/Oncology Comment on above: Multiple myeloma not having achieved remission (HCC) (Primary Dx); Paget disease of bone; Type 2 diabetes mellitus without complication, with long-term current use of insulin (HCC); H/O ulcerative colitis; Elevated prostate specific antigen (PSA); Stage 3b chronic kidney disease (HCC) Start: 11-23-2023 Telephone encounter Uriel mcdaniels MD Work Phone: Hematology/Oncology Comment on above: Lab Orders Start: 11-15-2023 Refill Aiden Hatfield MD Work Phone: [facility] Comment on above: Refill Request Start: 08-28-2023 End: 08-28-2023 ambulatory [facility] [place] Work Phone: Hematology/Oncology Comment on above: Multiple myeloma, re mission status unspecified (HCC) (Primary Dx) Multiple myeloma not having achieved remission (HCC) (Primary Dx); Paget disease of bone; Stage 3b chronic kidney disease (HCC); Type 2 diabetes mellitus without complication, with long-term current use of insulin (HCC); H/O ulcerative colitis; Elevated prostate specific antigen (PSA) Start: 08-28-2023 End: 08-28-2023 Patient encounter procedure Uriel Gunter MD Work Phone: [facility] Start: 08-28-2023 End: 08-28-2023 ambulatory HANNA CARROL Facility:[facility] Start: 08-20-2023 Refill Uriel Gunter MD Work Phone: [facility] Comment on above: Refill Request Start: 07-18-2023 Refill Ainsley collado [facility] Work Phone: [facility] Comment on above: Refill Request Start: 05-31-2023 Telephone encounter Mary Kay Peña Hematology/Oncology Comment on above: Results Start: 05-29-2023 End: 05-29-2023 Patient encounter procedure Uriel Gunter MD Work Phone: [facility] Start: 05-29-2023 End: 05-29-2023 ambulatory Uriel Gunter MD Work Phone: Hematology/Oncology Comment on above: Multiple myeloma not having achieved remission (HCC) (Primary Dx); Stage 3b chronic kidney disease (HCC); Type 2 diabetes mellitus without complication, with long-term current use of insulin (HCC); Paget disease of bone; H/O ulcerative colitis Start: 04-18-2023 Refill Aiden Hatfield MD Work Phone: [facility] Comment on above: Refill Request Start: 03-06-2023 End: 03-06-2023 ambulatory URIEL GUNTER Facility:[facility] Start: 02-27-2023 Telephone encounter Uriel mcdaniels MD Work Phone: Hematology/Oncology Comment on above: Lab Orders Start: 02-05-2023 Refill Porsche Adame [facility] Work Phone: [facility] Comment on above: Refill Request Start: 12-28-2022 Refill Ainsley McKitr ick [facility] Work Phone: [facility] Comment on above: Refill Request Start: 12-19-2022 Refill Ainsley McKitr ick [facility] Work Phone: [facility] Comment on above: Refill Request Start: 12-05-2022 End: 12-05-2022 ambulatory [place] [address] [place] Work Phone: Hematology/Oncology Comment on above: Multiple myeloma, re mission status unspecified (HCC) (Primary Dx) Multiple myeloma not having achieved remission (HCC) (Primary Dx); Paget disease of bone; Type 2 diabetes mellitus without complication, with long-term current use of insulin (HCC); Elevated prostate specific antigen (PSA) Start: 12-05-2022 End: 12-05-2022 Patient encounter procedure Uriel Gunter MD Work Phone: [facility] Start: 11-27-2022 Telephone encounter Uriel mcdaniels MD Work Phone: Hematology/Oncology Comment on above: Lab Orders Start: 11-16-2022 Refill Porsche Adame [facility] Work Phone: [facility] Comment on above: Refill Request Start: 10-16-2022 Refill Ainsley Griffin ichumaira [facility] Work Phone: [facility] Comment on above: Refill Request Start: 09-21-2022 Refill Ainsley Griffin ichumaira [facility] Work Phone: Hematology/Oncology Comment on above: Refill Request Start: 09-12-2022 End: 09-12-2022 ambulatory Uriel Gunter MD Work Phone: Hematology/Oncology Comment on above: Multiple myeloma not having achieved remission (HCC) (Primary Dx); Paget disease of bone; Type 2 diabetes mellitus without complication, with long-term current use of insulin (HCC); Elevated prostate specific antigen (PSA); H/O ulcerative colitis Start: 09-12-2022 End: 09-12-2022 Patient encounter procedure Uriel Gunter MD Work Phone: [facility] Start: 08-28-2022 End: 08-29-[address] HANNA MATHIAS Facility: Start: 08-11-2022 Refill Ainsley Griffin humaira [facility] Work Phone: Hematology/Oncology Comment on above: Refill Request Start: 06-20-2022 Telephone encounter Juan Ferguson Hematology/Oncology Comment on above: Care Coordination (C alcium) Start: 06-20-2022 End: 06-20-2022 ambulatory [address] Work Phone: Hematology/Oncology Comment on above: Multiple myeloma, re mission status unspecified (HCC) (Primary Dx) Multiple myeloma not having achieved remission (HCC) (Primary Dx); Paget disease of bone; Type 2 diabetes mellitus without complication, with long-term current use of insulin (HCC); Elevated prostate specific antigen (PSA) Start: 06-20-2022 End: 06-20-2022 Patient encounter procedure Claudia Wilson APRN.CNP Work Phone: [facility] Start: 06-16-2022 Refill Porsche Adame [facility] Work Phone: [facility] Comment on above: Refill Request Start: 06-15-2022 Telephone encounter Uriel mcdaniels MD Work Phone: Hematology/Oncology Comment on above: Lab Orders Start: 05-19-2022 Refill Ainsley YoungerDelisa ick [facility] Work Phone: Hematology/Oncology Comment on above: Refill Request Start: 04-20-2022 Refill Quita Elina [facility] Work Phone: [facility] Comment on above: Refill Request Start: 2022 Refill Quita Elina [facility] Work Phone: [facility] Comment on above: Refill Request (ansley lidomide) [facility] ([facility] [place]) Start: 03-24-2022 Telephone encounter Funmilayo Arriola RN Hematology/Oncology Comment on above: Results Start: 03-24-2022 End: 04-15-[address] HANNA MATHIAS Facility:[facility] Start: 03-21-2022 End: 03-21-2022 ambulatory Uriel Gunter MD Work Phone: Hematology/Oncology Comment on above: Multiple myeloma not having achieved remission (HCC) (Primary Dx); Paget disease of bone; Type 2 diabetes mellitus without complication, with long-term current use of insulin (HCC); H/O ulcerative colitis; Elevated prostate specific antigen (PSA) Start: 03-21-2022 End: 03-21-2022 Patient encounter procedure Uriel Gunter MD Work Phone: [facility] Start: 03-15-2022 End: 03-15-[address] HANNA MATHIAS Facility:[facility] Start: 03-14-2022 End: 03-15-[address] HANNA MATHIAS Facility:[facility] Start: 02-24-2022 Refill Ainsley Griffin ichumaira [facility] Work Phone: Hematology/Oncology Comment on above: Refill Request Start: 01-30-2022 Refill Quita Antoine [facility] Work Phone: [facility] Comment on above: Refill Request Start: 01-24-2022 End: 01-24-2022 ambulatory Uriel Gunter MD Work Phone: Hematology/Oncology Comment on above: Multiple myeloma not having achieved remission (HCC) (Primary Dx); Paget disease of bone; Type 2 diabetes mellitus without complication, with long-term current use of insulin (HCC); H/O ulcerative colitis Start: 01-24-2022 End: 01-24-2022 Patient encounter procedure Uriel Gunter MD Work Phone: [facility] Start: 01-02-2022 Refill Porsche Adame [facility] Work Phone: [facility] Comment on above: Refill Request Start: 12-20-2021 End: 12-21-[address] ROXANA LEWIS Facility:[facility] Start: 11-10-2021 End: 11-11-[address] ROXANA LEWIS Facility:[facility] Start: 09-12-2021 End: 09-12-[address] HANNA MATHIAS Facility:[facility] Start: 09-10-2021 End: 09-11-[address] HANNA MATHIAS Facility:[facility] Start: 07-13-2018 End: 07-16-2018 Evaluation and management of inpatient HANNA MATHIAS Facility:[facility] Procedures Date Procedure Procedure Detail Performing Clinician Start: 03-21-2022 Adult depression scr eening assessment Uriel Gunter MD Work Phone: Start: 03-14-[address] ROLA MATHIAS Comment on above: Performed By: #### P SASC #### [facility] [address] [place] [address] Dr. Tigre Gant Start: 11-10-[address] ROLA MATHIAS Comment on above: Performed By: #### P SAD #### [facility] [address] [place] [address] Dr. Tigre Gant Start: 08-16-2021 Adult depression scr eening assessment Porsche Ad[facility] Work Phone: Start: 07-16-2018 REPOSITION R UP FEMU R WITH INTRAMED FIX, PERC APPROACH DANIELA ANTONY Start: 07-13-2018 INTRODUCTION OF SERUM/TOX/VACCINE INTO MUSCLE, PERC APPROACH FRANCIS SAVAGE Start: 07-13-2018 Antibody screen HANNA MATHIAS Comment on above: Performed By: #### 6 [id number] #### [facility] [address] [place] [id number] Plan of Treatment Date Care Activity Detail Author Start: 02-25-2025 Complete blood count Hemoglobin/[facility] Start: 02-25-2025 Creatinine measurement Serum Creatin ine [facility] Start: 11-26-2024 Complete blood count Hemoglobin/[facility] Start: 11-26-2024 Creatinine measurement Serum Creatin ine [facility] Start: 08-28-2024 Complete blood count Hemoglobin/[facility] Start: 08-28-2024 Creatinine measurement Serum Creatin ine [facility] Start: 08-28-2024 Hemoglobin/Hematocrit Hemoglobin/Hem [facility] Start: 08-28-2024 Serum Creatinine Serum Creatinine Cl [facility] Start: 05-29-2024 HEMOGLOBIN/HEMATOCRIT HEMOGLOBIN/HEM [facility] Start: 05-29-2024 SERUM CREATININE SERUM CREATININE [facility] Start: 05-27-2024 End: 05-27-2024 Follow-up encounter Hematology/Oncology Comment on above: 3 month follow up wi lab and aredia Start: 05-27-2024 End: 05-27-2024 Patient encounter procedure 05/27/2024 12:45 PM EDT Office Visit [facility] [address] [place] [address] [place] [address] 3 month follow up with lab and aredia [facility] Comment on above: 3 month follow up wi lab and aredia Start: 05-25-2024 Influenza vaccination [facility] Start: 03-06-2024 HEMOGLOBIN/HEMATOCRIT HEMOGLOBIN/HEM [facility] Start: 03-06-2024 SERUM CREATININE SERUM CREATININE Cl [facility] Start: 02-26-2024 End: 02-26-2024 Follow-up encounter Hematology/Oncology Comment on above: 3 month follow up wi th lab and aredia Start: 02-26-2024 End: 02-26-2024 Patient encounter procedure 02/26/2024 1:00 PM EDT Office Visit [facility] [address] [place] [address] 3 month follow up with lab and meño [facility] Comment on above: 3 month follow up wi lab and giseledia Start: 01-02-2024 End: 04-02-2024 MONOCLONAL PROTEIN, SERUM (BLOOD) MONOCLONAL PROTEIN, SERUM (BLOOD) Lab Routine Multiple myeloma not having achieved remission (HCC) Paget disease of bone Type 2 diabetes mellitus without complication, with long-term current use of insulin (HCC) H/O ulcerative colitis Elevated prostate specific antigen (PSA) Stage 3b chronic kidney disease (HCC) Expected: 01/02/2024, Expires: 04/02/2024 [facility] Work Phone: Comment on above: Expected: 01/02/2024 , Expires: 04/02/2024 Start: 12-05-2023 End: 03-05-2024 CBC W Auto Differential panel - Blood CBC + DIFF Lab Routine Multiple myeloma not having achieved remission (HCC) Paget disease of bone Type 2 diabetes mellitus without complication, with long-term current use of insulin (HCC) H/O ulcerative colitis Elevated prostate specific antigen (PSA) Stage 3b chronic kidney disease (HCC) Expected: 12/05/2023, Expires: 03/05/2024 [facility] Work Phone: Comment on above: Expected: 12/05/2023 , Expires: 03/05/2024 Start: 12-05-2023 End: 03-05-2024 Comprehensive metabolic 2000 panel - Serum or Plasma COMP METABOLIC PANEL Lab Routine Multiple myeloma not having achieved remission (HCC) Paget disease of bone Type 2 diabetes mellitus without complication, with long-term current use of insulin (HCC) H/O ulcerative colitis Elevated prostate specific antigen (PSA) Stage 3b chronic kidney disease (HCC) Expected: 12/05/2023, Expires: 03/05/2024 [facility] Work Phone: Comment on above: Expected: 12/05/2023 , Expires: 03/05/2024 Start: 12-05-2023 End: 03-05-2024 PROT ELECT SERUM WITH TOÑITO AND INTERP PROT ELECT SERUM WITH TOÑITO AND INTERP Lab Routine Multiple myeloma not having achieved remission (HCC) Expected: 12/05/2023, Expires: 03/05/2024 [facility] Work Phone: Comment on above: Expected: 12/05/2023 , Expires: 03/05/2024 Start: 11-26-2023 End: 02-25-2024 Basic metabolic 2000 panel - Serum or Plasma BASIC METABOLIC PNL Lab Routine Multiple myeloma not having achieved remission (HCC) Expected: 11/26/2023, Expires: 02/25/2024 [facility] Work Phone: Comment on above: Expected: 11/26/2023 , Expires: 02/25/2024 Start: 11-26-2023 End: 02-25-2024 CBC W Auto Differential panel - Blood CBC + DIFF Lab Routine Multiple myeloma not having achieved remission (HCC) Expected: 11/26/2023, Expires: 02/25/2024 [facility] Work Phone: Comment on above: Expected: 11/26/2023 , Expires: 02/25/2024 Start: 11-26-2023 End: 02-25-2024 MONOCLONAL PROTEIN, SERUM (BLOOD) MONOCLONAL PROTEIN, SERUM (BLOOD) Lab Routine Multiple myeloma not having achieved remission (HCC) Expected: 11/26/2023, Expires: 02/25/2024 [facility] Work Phone: Comment on above: Expected: 11/26/2023 , Expires: 02/25/2024 Start: 11-26-2023 End: 02-25-2024 PROT ELECT SERUM WITH TOÑITO AND INTERP PROT ELECT SERUM WITH TOÑITO AND INTERP Lab Routine Multiple myeloma not having achieved remission (HCC) Expected: 11/26/2023, Expires: 02/25/2024 [facility] Work Phone: Comment on above: Expected: 11/26/2023 , Expires: 02/25/2024 Start: 09-24-2023 Advance Directive Discussion Advance Directive Discussion [facility] Start: 09-24-2023 Behavioral Health Screening Behavioral Health Screening [facility] Start: 09-24-2023 Depression Assessment Depression Ass essment [facility] Start: 09-01-2023 Covid-19 Vaccine () Covid-19 Vaccine () [facility] Start: 08-28-2023 End: 11-27-2023 MONOCLONAL PROTEIN, SERUM (BLOOD) [facility] Work Phone: Comment on above: Expected: 08/28/2023 , Expires: 11/27/2023 Start: 08-28-2023 End: 11-27-2023 PROT ELECT SERUM WITH TOÑITO AND INTERP [facility] Work Phone: Comment on above: Expected: 08/28/2023 , Expires: 11/27/2023 Start: 05-25-2023 Covid-19 Vaccine () Covid-19 Vaccine () [facility] Start: 05-25-2023 Influenza vaccination C [facility] Start: 03-21-2023 Adult depression screening assessment DEPRESSION SCREENING [facility] Start: 03-06-2023 End: 05-06-2023 CBC W Auto Differential panel - Blood CBC + DIFF Lab Routine Multiple myeloma not having achieved remission (HCC) Expected: 03/06/2023, Expires: 05/06/2023 [facility] Work Phone: Comment on above: Expected: 03/06/2023 , Expires: 05/06/2023 Start: 03-06-2023 End: 05-06-2023 Comprehensive metabolic 2000 panel - Serum or Plasma COMP METABOLIC PANEL Lab Routine Multiple myeloma not having achieved remission (HCC) Expected: 03/06/2023, Expires: 05/06/2023 [facility] Work Phone: Comment on above: Expected: 03/06/2023 , Expires: 05/06/2023 Start: 03-06-2023 End: 05-06-2023 MONOCLONAL PROTEIN, SERUM (BLOOD) MONOCLONAL PROTEIN, SERUM (BLOOD) Lab Routine Multiple myeloma not having achieved remission (HCC) Expected: 03/06/2023, Expires: 05/06/2023 [facility] Work Phone: Comment on above: Expected: 03/06/2023 , Expires: 05/06/2023 Start: 03-06-2023 End: 05-06-2023 PROT ELECT SERUM WITH TOÑITO AND INTERP PROT ELECT SERUM WITH TOÑITO AND INTERP Lab Routine Multiple myeloma not having achieved remission (HCC) Expected: 03/06/2023, Expires: 05/06/2023 [facility] Work Phone: Comment on above: Expected: 03/06/2023 , Expires: 05/06/2023 Start: 12-05-2022 End: 02-04-2023 CBC W Auto Differential panel - Blood CBC + DIFF Lab Routine Multiple myeloma not having achieved remission (HCC) Expected: 12/05/2022, Expires: 02/04/2023 [facility] Work Phone: Comment on above: Expected: 12/05/2022 , Expires: 02/04/2023 Start: 12-05-2022 End: 02-04-2023 Comprehensive metabolic 2000 panel - Serum or Plasma COMP METABOLIC PANEL Lab Routine Multiple myeloma not having achieved remission (HCC) Expected: 12/05/2022, Expires: 02/04/2023 [facility] Work Phone: Comment on above: Expected: 12/05/2022 , Expires: 02/04/2023 Start: 12-05-2022 End: 02-04-2023 MONOCLONAL PROTEIN, SERUM (BLOOD) MONOCLONAL PROTEIN, SERUM (BLOOD) Lab Routine Multiple myeloma not having achieved remission (HCC) Expected: 12/05/2022, Expires: 02/04/2023 [facility] Work Phone: Comment on above: Expected: 12/05/2022 , Expires: 02/04/2023 Start: 12-05-2022 End: 02-04-2023 PROT ELECT SERUM WITH TOÑITO AND INTERP PROT ELECT SERUM WITH TOÑITO AND INTERP Lab Routine Multiple myeloma not having achieved remission (HCC) Expected: 12/05/2022, Expires: 02/04/2023 [facility] Work Phone: Comment on above: Expected: 12/05/2022 , Expires: 02/04/2023 Start: 09-24-2022 ADVANCE DIRECTIVE DISCUSSION ADVANCE DIRECTIVE DISCUSSION [facility] Start: 09-24-2022 DEPRESSION ASSESSMENT DEPRESSION ASS ESSMENT [facility] Start: 09-12-2022 End: 11-12-2022 CBC W Auto Differential panel - Blood CBC + DIFF Lab Routine Multiple myeloma not having achieved remission (HCC) Paget disease of bone Type 2 diabetes mellitus without complication, with long-term current use of insulin (HCC) Elevated prostate specific antigen (PSA) Expected: 09/12/2022, Expires: 11/12/2022 [facility] Work Phone: Comment on above: Expected: 09/12/2022 , Expires: 11/12/2022 Start: 09-12-2022 End: 11-12-2022 Comprehensive metabolic 2000 panel - Serum or Plasma COMP METABOLIC PANEL Lab Routine Multiple myeloma not having achieved remission (HCC) Paget disease of bone Type 2 diabetes mellitus without complication, with long-term current use of insulin (HCC) Elevated prostate specific antigen (PSA) Expected: 09/12/2022, Expires: 11/12/2022 [facility] Work Phone: Comment on above: Expected: 09/12/2022 , Expires: 11/12/2022 Start: 09-12-2022 End: 11-12-2022 MONOCLONAL PROTEIN, SERUM (BLOOD) MONOCLONAL PROTEIN, SERUM (BLOOD) Lab Routine Multiple myeloma not having achieved remission (HCC) Paget disease of bone Type 2 diabetes mellitus without complication, with long-term current use of insulin (HCC) Elevated prostate specific antigen (PSA) Expected: 09/12/2022, Expires: 11/12/2022 [facility] Work Phone: Comment on above: Expected: 09/12/2022 , Expires: 11/12/2022 Start: 09-12-2022 End: 11-12-2022 PROT ELECT SERUM WITH TOÑITO AND INTERP PROT ELECT SERUM WITH TOÑITO AND INTERP Lab Routine Multiple myeloma not having achieved remission (HCC) Paget disease of bone Type 2 diabetes mellitus without complication, with long-term current use of insulin (HCC) Elevated prostate specific antigen (PSA) Expected: 09/12/2022, Expires: 11/12/2022 [facility] Work Phone: Comment on above: Expected: 09/12/2022 , Expires: 11/12/2022 Start: 08-16-2022 Adult depression screening assessment DEPRESSION SCREENING [facility] Start: 08-03-2022 COVID-19 VACCINE (7 - Mixed Product risk series) COVID-19 VACCINE (7 - Mixed Product risk series) [facility] Start: 06-16-2022 End: 08-16-2022 CBC W Auto Differential panel - Blood CBC + DIFF Lab Routine Multiple myeloma not having achieved remission (HCC) Expected: 06/16/2022, Expires: 08/16/2022 [facility] Work Phone: Comment on above: Expected: 06/16/2022 , Expires: 08/16/2022 Start: 06-16-2022 End: 08-16-2022 Comprehensive metabolic 2000 panel - Serum or Plasma COMP METABOLIC PANEL Lab Routine Multiple myeloma not having achieved remission (HCC) Expected: 06/16/2022, Expires: 08/16/2022 [facility] Work Phone: Comment on above: Expected: 06/16/2022 , Expires: 08/16/2022 Start: 06-16-2022 End: 08-16-2022 MONOCLONAL PROTEIN, SERUM (BLOOD) MONOCLONAL PROTEIN, SERUM (BLOOD) Lab Routine Multiple myeloma not having achieved remission (HCC) Expected: 06/16/2022, Expires: 08/16/2022 [facility] Work Phone: Comment on above: Expected: 06/16/2022 , Expires: 08/16/2022 Start: 06-16-2022 End: 08-16-2022 PROT ELECT SERUM WITH TOÑITO AND INTERP PROT ELECT SERUM WITH TOÑITO AND INTERP Lab Routine Multiple myeloma not having achieved remission (HCC) Expected: 06/16/2022, Expires: 08/16/2022 [facility] Work Phone: Comment on above: Expected: 06/16/2022 , Expires: 08/16/2022 Start: 05-25-2022 Influenza vaccination INFLUENZA (#1) [facility] Start: 05-15-2022 COVID-19 VACCINE (5 - Booster) COVID-19 VACCINE (5 - Booster) [facility] Start: 03-23-2022 End: 05-23-2022 CBC W Auto Differential panel - Blood CBC + DIFF Lab Routine Multiple myeloma not having achieved remission (HCC) Expected: 03/23/2022, Expires: 05/23/2022 [facility] Work Phone: Comment on above: Expected: 03/23/2022 , Expires: 05/23/2022 Start: 03-23-2022 End: 05-23-2022 Comprehensive metabolic 2000 panel - Serum or Plasma COMP METABOLIC PANEL Lab Routine Multiple myeloma not having achieved remission (HCC) Expected: 03/23/2022, Expires: 05/23/2022 [facility] Work Phone: Comment on above: Expected: 03/23/2022 , Expires: 05/23/2022 Start: 03-23-2022 End: 05-23-2022 MONOCLONAL PROTEIN, SERUM (BLOOD) MONOCLONAL PROTEIN, SERUM (BLOOD) Lab Routine Multiple myeloma not having achieved remission (HCC) Expected: 03/23/2022, Expires: 05/23/2022 [facility] Work Phone: Comment on above: Expected: 03/23/2022 , Expires: 05/23/2022 Start: 03-23-2022 End: 05-23-2022 PROT ELECT SERUM WITH TOÑITO AND INTERP PROT ELECT SERUM WITH TOÑITO AND INTERP Lab Routine Multiple myeloma not having achieved remission (HCC) Expected: 03/23/2022, Expires: 05/23/2022 [facility] Work Phone: Comment on above: Expected: 03/23/2022 , Expires: 05/23/2022 Start: 03-10-2022 COVID-19 VACCINE (5 - Booster) COVID-19 VACCINE (5 - Booster) [facility] Start: 09-28-2021 COVID-19 VACCINE (4 - Booster) COVID-19 VACCINE (4 - Booster) [facility] Start: 09-24-2021 ADVANCE DIRECTIVE DISCUSSION ADVANCE DIRECTIVE DISCUSSION [facility] Start: 09-24-2021 DEPRESSION ASSESSMENT DEPRESSION ASS ESSMENT [facility] Start: 2012 PNEUMOVAX AGE 65 AND OVER WITH 5YR LOOKBACK (#1) PNEUMOVAX AGE 65 AND OVER WITH 5YR LOOKBACK (#1) [facility] Start: 2007 Hepatitis B Vaccine (1 of 3 - Risk 3-dose series) Hepatitis B Vaccine (1 of 3 - Risk 3-dose series) [facility] Start: 2007 RSV Vaccine (1 - 1-d ose 60+ series) RSV Vaccine (1 - 1-dose 60+ series) [facility] Start: 1997 SHINGRIX VACCINE (1 of 2) SHINGRIX VACCINE (1 of 2) [facility] Start: 1992 COLOGUARD (FIT-DNA) COLOGUARD (FIT-D NA) [facility] Start: 1992 Colonoscopy COLONOSCOPY [facility] Start: 1992 COLORECTAL CANCER SCREENING COLORECTAL CANCER SCREENING [facility] Start: [address] COLONOGRAPHY [facility] Start: 1992 FECAL OCCULT BLOOD FECAL OCCULT BLOO D [facility] Start: 1992 SIGMOIDOSCOPY SIGMOIDOSCOPY [facility] Start: 1966 SHINGRIX VACCINE (1 of 2) SHINGRIX VACCINE (1 of 2) [facility] Start: 1966 Urine microalbumin profile [facility] Start: 1965 ANNUAL PCP TEAM MARKETING SUPPORT COORDINATOR MESSI DISEASE VISIT ANNUAL PCP TEAM CHRONIC DISEASE VISIT [facility] Start: 1965 Hepatitis B surface antibody level LDL CHOLESTEROL [facility] Start: 1965 HEPATITIS C SCREENING HEPATITIS C [facility] Start: 1965 Hepatitis C screening Hepatitis C [facility] Start: 1957 3 comp foot exam completed DIABETIC FOOT EXAM [facility] Start: 1957 Diabetic foot examination Diabetic Foot Exam [facility] Start: 1957 Glaucoma screening Dilated Retinal E xam [facility] Start: 1957 Hepatitis B screening URINE ALBUMIN:CREATININE RATIO [facility] Start: 1957 Hepatitis C antibody , confirmatory test DILATED RETINAL EXAM [facility] Start: 1953 Pneumococcal Vaccine : 65+ (1 - PCV) Pneumococcal Vaccine: 65+ (1 - PCV) [facility] Start: 1953 Pneumococcal Vaccine : 65+ (1 of 2 - PCV) Pneumococcal Vaccine: 65+ (1 of 2 - PCV) [facility] Start: 1953 PNEUMOCOCCAL: 65+ (1 - PCV) PNEUMOCOCCAL: 65+ (1 - PCV) [facility] Start: 1952 Hemoglobin A1c measurement HbA1C [facility] Start: 1952 Hemoglobin A1c/Hemoglobin.total in Blood HBA1C [facility] Start: 1947 ABDOMINAL AORTIC ANEURYSM SCREENING ABDOMINAL AORTIC ANEURYSM SCREENING [facility] Immunizations Immunization Date Immunization Notes Care Provider Sangeetha castaneda 07-07-2023 respiratory syncytia l virus (RSV) vaccine, bivalent (ABRYSVO) Chair Yepez Work Phone: [facility] 06-28-2021 COVID-19 vaccine (UNSPECIFIED) Posrche Ad[facility] Work Phone: [facility] 06-28-2021 COVID-19 vaccine, ag e 12+ yr (PFIZER-BIONTECH - PURPLE TOP) Porsche Ad[facility] Work Phone: [facility] 06-16-2021 influenza, high-dose , quadrivalent vaccine (FLUZONE HIGH DOSE QUADRIVALENT) Porsche Ad[facility] Work Phone: [facility] 06-16-2021 influenza virus vacc ine, unspecified formulation Ainsley Reinoso [facility] Work Phone: [facility] 11-11-2020 COVID-19 vaccine, ag e 12+ yr (PFIZER-BIONTECH - PURPLE TOP) Porsche [facility] Work Phone: [facility] 10-22-2020 COVID-19 vaccine, ag e 12+ yr (PFIZER-BIONTECH - PURPLE TOP) Porsche Ad[facility] Work Phone: [facility] 07-05-2020 Seasonal trivalent influenza vaccine, adjuvanted, preservative free Porsche Ad[facility] Work Phone: [facility] 07-19-2016 influenza virus vacc ine, unspecified formulation Porsche [facility] Work Phone: [facility] Payers Date Payer Category Payer Medicare MEDICARE MEDICAR E A AND B [id number] 2012-Present [phone] [place] [address] Medicare [id number] 2012 Medicare MEDICARE MEDICAR E A AND B [id number] 2012-Present [phone] [place] [address] Medicare [id number] 2012 Unknown [employer]URANCE FORETHOUGHT SUPPLEMENT [id number] 2012-Present [phone] [id number] [place] [address] Indemnity [id number] 2012 Unknown [employer]UR[employer] FORETH[employer]GHT SUPPLEMENT [id number] 2012-Present [phone] [address] [place] [address] Indemnity [id number] 1959 Medicare [id number] 1959 Unknown [id number] 1947 Unknown [id number] 1947 Unknown [id number] 1947 Unknown [id number] 1947 Unknown [id number] 1947 Unknown [id number] 1947 Unknown [id number] 1947 Unknown [id number] 1947 Unknown [id number] 1947 Unknown [id number] Medicare [id number] Social History Date Type Detail Facility Start: [facility]20-[facility] Work Phone: End: 09-24-1990 History of tobacco use Current smoker [facility] Work Phone: End: 09-24-1990 History of tobacco use Cigarette Smoker [facility] Work Phone: Start: 11-28-2021 End: 02-26-2024 Alcohol intake Current non-drinker of alcohol (finding) [facility] Start: 1945 Sex Assigned At Not on file [facility] Start: 01-14-2022 End: 06-20-2022 Exposure to SARS-CoV-2 (event) Not sure [facility] Start: 10-20-2015 End: 03-06-2023 Cigarettes smoked current (pack per day) - Reported 2 [facility] Start: 10-20-2015 Tobacco use and exposure Smokeless tobacco non-user [facility] Start: 03-21-2022 End: 03-06-2023 Tobacco use panel [facility] National Score (1-10 0), lower number is lower risk 63 [facility] Clinical Notes 01-24-2022 to 02-29-2024 Telephone Encounter - Juan Ferguson RN - 02/29/2024 8:52 AM EDTTelephone Encounter - Juan Ferguson RN - 02/29/2024 8:52 AM Uriel Oliver MD - 02/25/2024 10:14 PM EDT Note Date & Type Note Facility 02-29-2024 Telephone encounter Note Pt notified and verbalizes understanding. Juan Ferguson RN [facility] Work Phone: 02-29-2024 Telephone encounter Note ----- Message from Latrice Lechuga PA-C sent at 02/29/2024 8:10 AM EDT ----- Please let patient know his labs are stable and we will continue to monitor [facility] 02-29-2024 Miscellaneous Notes Pt notified and verbalizes understanding. Juan Ferguson RN ----- Message from Latrice Lechuga PA-C sent at 02/29/2024 8:10 AM EDT ----- Please let patient know his labs are stable and we will continue to monitor documented in this encounter [facility] 02-25-2024 Note HNO ID: [id number] Author: URIEL GUNTER MD Service: ? Author Type: Physician Type: Progress Notes Filed: 02/27/2024 16:09 Note Text: PATIENT NAME: Zach Manuel DATE: 02/26/2024 PRIMARY CARE PHYSICIAN: Dr. Hanna Mathias OTHER PHYSICIANS: Dr. Lewis, Dr. Martinez Portions of this encounter note have been copied from the note from 11/27/2023 and has been updated where appropriate, and reflect my current medical decision making from today. CC: This is a 78 year old male with a history of multiple myeloma, seen for scheduled follow-up. INTERIM HISTORY: Since the patient's last visit here he has had no significant medical changes. He remains on Revlimid 5 mg daily 3 weeks on and 1 week off plus Decadron 8 mg weekly. He is tolerating his medications well. He feels well today with no particular complaints. No unusual pain. No fevers or signs of infection. MEDICATIONS: lenalidomide (REVLIMID) 5 mg capsule Take 1 capsule by mouth daily for 21 days on and 7 days off. dexAMETHasone (DECADRON) 4 mg tablet TAKE 2 TABLETS BY MOUTH ONCE A WEEK glyBURIDE micronized (GLYNASE) 6 mg tablet JARDIANCE 10 mg tablet Take 10 mg by mouth once daily. DEXILANT 60 mg CpDM Take 1 capsule by mouth once daily. liothyronine (CYTOMEL) [address] (PROTONIX) 40 mg tablet Take 40 mg by mouth once daily. BREO ELLIPTA 100-25 mcg/dose inhaler 1 Inhalation once daily. fenofibrate nanocrystallized (TRICOR) 145 mg tablet Take 145 mg by mouth once daily. oxyCODONE IR (ROXICODONE) 10 mg tab 10 mg as needed. levothyroxine (SYNTHROID) 50 mcg tablet Take 50 mcg by mouth once daily. MELOXICAM 15 mg tablet Take 15 mg by mouth as needed. GLUCOPHAGE 500 MG TAB Take 1,000 mg by mouth daily with breakfast. 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 HEENT: Negative for frequent or significant headaches. No changes in hearing or vision, no nose bleeds or other nasal problems. Respiratory: Negative for cough, wheezing or shortness of breath. Cardiovascular: Negative for chest pain, leg swelling or palpitations. GI: Negative for abdominal discomfort, blood in stools or black stools or change in bowel habits. : No history of dysuria, frequency or incontinence. Musculoskeletal: Right leg pain status post fracture- persistent. Skin: Negative for lesions, rash and itching. Hematology/Lymphology: Negative for prolonged bleeding, bruising easily or swollen nodes. Neuro: No history of headaches, syncope, paralysis, seizures or tremors. PHYSICAL EXAM: Vitals: BP 126/68 Pulse (!) 59 Temp 36.4 ?C (97.6 ?F) (Temporal) Resp 18 Ht 175.3 cm (5' 9.02 ) Wt 84.3 kg (185 lb 13.6 oz) SpO2 97% BMI 27.43 kg/m? ECOG 0 Exam limited to gross visualization where appropriate due to COVID-19. Gen.: This is an age-appropriate patient in no acute distress. Head: Appears atraumatic with no visible lesions. Eyes: Pupils equally round and reactive to light, extraocular muscles are intact. Neck: Supple. Mouth: Mucous membranes appeared to be moist. Respiratory: Appears to be respiring comfortably. Neurologic: Nonfocal to gross visualization. Alert and oriented ?3. Psychiatric: No evidence of inappropriate anxiety or depression. Skin: Visible areas of skin without rash, lesions, wounds or petechiae. PATHOLOGY: 05/07/2020 Prostate biopsy ([facility]) FINAL DIAGNOSIS 1. Prostate, left base, core biopsy (A): Benign prostatic tissue 2. Prostate, left mid, core biopsy (B): Focal high-grade prostatic intraepithelial neoplasia (PIN) 3. Prostate, left apex, core biopsy (C): Benign prostatic tissue 4. Prostate, right base, core biopsy (D): Benign prostatic tissue 5. Prostate, right mid, core biopsy (E): Benign prostatic tissue 6. Prostate, right apex, core biopsy (F): Benign prostatic tissue 7. Prostate, T1 right mid posterolateral (PIRADS-4), core biopsy (G): Benign prostatic tissue with patchy atrophy and chronic inflammation RADIOLOGY/OTHER STUDIES: 03/02/2020 Prostate MRI IMPRESSION: Enlarged prostate with BPH. 0.5 cm PI-RADS 4 lesion in the RIGHT mid posterolateral peripheral zone. No pelvic lymphadenopathy or osseous lesions s (more content not included)... [facility] 02-25-2024 History of Presen t illness Narrative PATIENT NAME: Zach Manuel DATE: 02/26/2024 PRIMARY CARE PHYSICIAN: Dr. Hanna Mathias OTHER PHYSICIANS: Dr. Lewis, Dr. Martinez Portions of this encounter note have been copied from the note from 11/27/2023 and has been updated where appropriate, and reflect my current medical decision making from today. CC: This is a 78 year old male with a history of multiple myeloma, seen for scheduled follow-up. INTERIM HISTORY: Since the patient's last visit here he has had no significant medical changes. He remains on Revlimid 5 mg daily 3 weeks on and 1 week off plus Decadron 8 mg weekly. He is tolerating his medications well. He feels well today with no particular complaints. No unusual pain. No fevers or signs of infection. MEDICATIONS: lenalidomide (REVLIMID) 5 mg capsule Take 1 capsule by mouth daily for 21 days on and 7 days off. dexAMETHasone (DECADRON) 4 mg tablet TAKE 2 TABLETS BY MOUTH ONCE A WEEK glyBURIDE micronized (GLYNASE) 6 mg tablet JARDIANCE 10 mg tablet Take 10 mg by mouth once daily. DEXILANT 60 mg CpDM Take 1 capsule by mouth once daily. liothyronine (CYTOMEL) [address] (PROTONIX) 40 mg tablet Take 40 mg by mouth once daily. BREO ELLIPTA 100-25 mcg/dose inhaler 1 Inhalation once daily. fenofibrate nanocrystallized (TRICOR) 145 mg tablet Take 145 mg by mouth once daily. oxyCODONE IR (ROXICODONE) 10 mg tab 10 mg as needed. levothyroxine (SYNTHROID) 50 mcg tablet Take 50 mcg by mouth once daily. MELOXICAM 15 mg tablet Take 15 mg by mouth as needed. GLUCOPHAGE 500 MG TAB Take 1,000 mg by mouth daily with breakfast. 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 HEENT: Negative for frequent or significant headaches. No changes in hearing or vision, no nose bleeds or other nasal problems. Respiratory: Negative for cough, wheezing or shortness of breath. Cardiovascular: Negative for chest pain, leg swelling or palpitations. GI: Negative for abdominal discomfort, blood in stools or black stools or change in bowel habits. : No history of dysuria, frequency or incontinence. Musculoskeletal: Right leg pain status post fracture- persistent. Skin: Negative for lesions, rash and itching. Hematology/Lymphology: Negative for prolonged bleeding, bruising easily or swollen nodes. Neuro: No history of headaches, syncope, paralysis, seizures or tremors. PHYSICAL EXAM: Vitals: BP 126/68 Pulse (!) 59 Temp 36.4 C (97.6 F) (Temporal) Resp 18 Ht 175.3 cm (5' 9.02 ) Wt 84.3 kg (185 lb 13.6 oz) SpO2 97% BMI 27.43 kg/m ECOG 0 Exam limited to gross visualization where appropriate due to COVID-19. Gen.: This is an age-appropriate patient in no acute distress. Head: Appears atraumatic with no visible lesions. Eyes: Pupils equally round and reactive to light, extraocular muscles are intact. Neck: Supple. Mouth: Mucous membranes appeared to be moist. Respiratory: Appears to be respiring comfortably. Neurologic: Nonfocal to gross visualization. Alert and oriented 3. Psychiatric: No evidence of inappropriate anxiety or depression. Skin: Visible areas of skin without rash, lesions, wounds or petechiae. PATHOLOGY: 05/07/2020 Prostate biopsy ([facility]) FINAL DIAGNOSIS 1. Prostate, left base, core biopsy (A): Benign prostatic tissue 2. Prostate, left mid, core biopsy (B): Focal high-grade prostatic intraepithelial neoplasia (PIN) 3. Prostate, left apex, core biopsy (C): Benign prostatic tissue 4. Prostate, right base, core biopsy (D): Benign prostatic tissue 5. Prostate, right mid, core biopsy (E): Benign prostatic tissue 6. Prostate, right apex, core biopsy (F): Benign prostatic tissue 7. Prostate, T1 right mid posterolateral (PIRADS-4), core biopsy (G): Benign prostatic tissue with patchy atrophy and chronic inflammation RADIOLOGY/OTHER STUDIES: 03/02/2020 Prostate MRI IMPRESSION: Enlarged prostate with BPH. 0.5 cm PI-RADS 4 lesion in the RIGHT mid posterolateral peripheral zone. No pelvic lymphadenopathy or osseous lesions suspicious for metastases. 08/18/2019 - Bone survey at [facility] Conclusion: Scattered lytic lesions, stable in number and size from prior exams. 05/06/2018 - Bone Survey at [facility] Scattered lytic lesions, stable in both number and size from the prior exam. LABORATORY DATA: Hemoglobin (g/dL) Date Value 02/26/2024 12.9 09/27/2021 13.4 Hematocrit (%) Date Value 02/26/2024 38.0 09/27/2021 38.0 WBC (k/uL) Date Value 02/26/2024 6.65 09/27/2021 5.92 Platelet Count (k/uL) Date Value 02/26/2024 203 09/27/2021 189 PSA 12/10/2020 4.94 03/14/2022 5.40 03/06/2023 3.58 ASSESSMENT/PLAN: Multiple myeloma (primary diagnosis) IgG kappa multiple myeloma initially diagnosed November 2002. At the time of diagnosis the patient had minimal disease, was asymptomatic, and observation was recommended. Disease progression in August of 2009. The patient received first line therapy with lenalidomide and Decadron given August 2009 through March 2010 which led to a partial response. Maintenance treatment with low-dose lenalidomide given August 2010 through October 2010, stopped due to adverse effects. The patient subsequently was observed. Disease progression August 2019. Treatment resumed with low dose Revlimid 10 mg daily, 3 weeks on and one-week off plus Decadron 4 mg weekly on 09/15/2019. The patient's paraprotein subsequently improved significantly. By November 2020 the patient developed musculoskeletal cramps which he attributed to the Revlimid, and he elected to stop the Revlimid after 12/05/2020. Labs obtained 03/08/2021 showed his M spike increased, and the patient resumed treatment with Revlimid 5 mg daily 21 days on 7 days off plus Decadron 8 mg weekly as of February 2021. Currently the patient is clinically stable and his labs are slowly improving. At this time the patient will continue as is with his current treatment. He will return in 3 months for follow-up and labs. If his paraprotein levels increase we will then discuss options for a more aggressive regimen. 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 He will receive treatment today as scheduled. Next infusion due August 2024. 3. 250.00 Diabetes mellitus Continue management per PCP. 4. V12.79 H/O ulcerative colitis Status post total colectomy 1990. No recurrent symptoms. 5. Spinal stenosis secondary to degenerative disc disease. Stable status post surgery (Dr. Harper) 01/26/2015. Continue follow-up with PCP/neurosurgery as indicated. 7. Elevated PSA and abnormal prostate MRI 03/02/2020 Elevated PSA February 2020. MRI prostate 03/02/2020 revealed a small PI-RADS 4 lesion in the right posterolateral zone. Prostate core biopsy 05/07/2020 consistent with focal high-grade prostatic intraepithelial neoplasia (PIN). Follow-up PSA values have remained stable. Per patient request we will repeat his PSA every 6 months. Otherwise continue management per PCP/urology. 8. Stage 3b chronic kidney disease (HCC) - ICD9: 585.3, ICD10: N18.32 Chronic renal insufficiency most likely multifactorial, in part due 2 diabetes +/- myeloma. Labs currently stable. Continue management per PCP. Referral to nephrology will be considered if renal function worsens. Uriel Gunter MD documented in this encounter [facility] 11-27-2023 Note HNO ID: [id number] Author: CLAUDIA WILSON APRN.UNIT RECEPTIONIST Service: ? Author Type: Nurse Practitioner Type: Progress Notes Filed: 12/05/2023 11:23 Note Text: PATIENT NAME: Zach Manuel DATE: 11/27/2023 PRIMARY CARE PHYSICIAN: Dr. Hanna Mathias OTHER PHYSICIANS: Dr. Lewis, Dr. Martinez Portions of this encounter note have been copied from the note from 08/28/2023 and has been updated where appropriate, and reflect my current medical decision making from today. CC: This is a 78 year old male with a history of multiple myeloma, seen for scheduled follow-up. INTERIM HISTORY: Zach Manuel returns for follow-up. He remains on Revlimid 5 mg daily 3 weeks on and 1 week off. He is tolerating the Revlimid well. He also remains on Decadron 8 mg once a week. Since his last visit there has been no significant medical changes. He denies any unusual pain. No fevers, chills, night sweats or signs/symptoms of infection. No bleeding or abnormal bruising. He offers no new complaints today. MEDICATIONS: lenalidomide (REVLIMID) 5 mg capsule Take 1 capsule by mouth daily for 21 days on and 7 days off. dexAMETHasone (DECADRON) 4 mg tablet TAKE 2 TABLETS BY MOUTH ONCE A WEEK glyBURIDE micronized (GLYNASE) 6 mg tablet JARDIANCE 10 mg tablet Take 10 mg by mouth once daily. DEXILANT 60 mg CpDM Take 1 capsule by mouth once daily. liothyronine (CYTOMEL) 5 mcg tablet metroNIDAZOLE (FLAGYL) 500 mg tablet vancomycin (VANCOCIN) 250 mg capsule pioglitazone (ACTOS) 30 mg tablet tobramycin-dexamethasone (TOBRADEX) ophthalmic suspension INSTILL 2 DROPS INTO AFFECTED EYE 4 TIMES DAILY [id number] e (CORTISPORIN) otic solution INSTILL 3 4 DROPS IN AFFECTED EAR FOUR TIMES DAILY pantoprazole DR (PROTONIX) 40 mg tablet Take 40 mg by mouth once daily. BREO ELLIPTA 100-25 mcg/dose inhaler 1 Inhalation once daily. fenofibrate nanocrystallized (TRICOR) 145 mg tablet Take 145 mg by mouth once daily. oxyCODONE IR (ROXICODONE) 10 mg tab 10 mg as needed. levothyroxine (SYNTHROID) 50 mcg tablet Take 50 mcg by mouth once daily. MELOXICAM 15 mg tablet Take 15 mg by mouth as needed. GLUCOPHAGE 500 MG TAB Take 1,000 mg by mouth daily with breakfast. 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 HEENT: Negative for frequent or significant headaches. No changes in hearing or vision, no nose bleeds or other nasal problems. Respiratory: Negative for cough, wheezing or shortness of breath. Cardiovascular: Negative for chest pain, leg swelling or palpitations. GI: Negative for abdominal discomfort, blood in stools or black stools or change in bowel habits. : No history of dysuria, frequency or incontinence. Musculoskeletal: Right leg pain status post fracture- persistent. Skin: Negative for lesions, rash and itching. Hematology/Lymphology: Negative for prolonged bleeding, bruising easily or swollen nodes. Neuro: No history of headaches, syncope, paralysis, seizures or tremors. PHYSICAL EXAM: Vitals: BP 154/51 Pulse 65 Temp 36.6 ?C (97.9 ?F) (Temporal) Resp 18 Ht 175.3 cm (5' 9.02 ) Wt 87.7 kg (193 lb 5.5 oz) SpO2 97% BMI 28.54 kg/m? ECOG 0 Exam limited to gross visualization where appropriate due to COVID-19. Gen.: This is an age-appropriate patient in no acute distress. Head: Appears atraumatic with no visible lesions. Eyes: Pupils equally round and reactive to light, extraocular muscles are intact. Neck: Supple. Mouth: Mucous membranes appeared to be moist. Respiratory: Appears to be respiring comfortably. Neurologic: Nonfocal to gross visualization. Alert and oriented ?3. Psychiatric: No evidence of inappropriate anxiety or depression. Skin: Visible areas of skin without rash, lesions, wounds or petechiae. PATHOLOGY: 05/07/2020 Prostate biopsy ([facility]) FINAL DIAGNOSIS 1. Prostate, left base, core biopsy (A): Benign prostatic tissue 2. Prostate, left mid, core biopsy (B): Focal high-grade prostatic intraepithelial neoplasia (PIN) 3. Prostate, left apex, core biopsy (C): Benign prostatic tissue 4. Prostate, right base, core biopsy (D): Benign prostatic tissue 5. Prostate, right mid, core biopsy (more content not included)... [facility] 11-27-2023 History of Presen t illness Narrative PATIENT NAME: Zach Manuel DATE: 11/27/2023 PRIMARY CARE PHYSICIAN: Dr. Hanna Mathias OTHER PHYSICIANS: Dr. Lewis, Dr. Martinez Portions of this encounter note have been copied from the note from 08/28/2023 and has been updated where appropriate, and reflect my current medical decision making from today. CC: This is a 78 year old male with a history of multiple myeloma, seen for scheduled follow-up. INTERIM HISTORY: Zach Manuel returns for follow-up. He remains on Revlimid 5 mg daily 3 weeks on and 1 week off. He is tolerating the Revlimid well. He also remains on Decadron 8 mg once a week. Since his last visit there has been no significant medical changes. He denies any unusual pain. No fevers, chills, night sweats or signs/symptoms of infection. No bleeding or abnormal bruising. He offers no new complaints today. MEDICATIONS: lenalidomide (REVLIMID) 5 mg capsule Take 1 capsule by mouth daily for 21 days on and 7 days off. dexAMETHasone (DECADRON) 4 mg tablet TAKE 2 TABLETS BY MOUTH ONCE A WEEK glyBURIDE micronized (GLYNASE) 6 mg tablet JARDIANCE 10 mg tablet Take 10 mg by mouth once daily. DEXILANT 60 mg CpDM Take 1 capsule by mouth once daily. liothyronine (CYTOMEL) 5 mcg tablet metroNIDAZOLE (FLAGYL) 500 mg tablet vancomycin (VANCOCIN) 250 mg capsule pioglitazone (ACTOS) 30 mg tablet tobramycin-dexamethasone (TOBRADEX) ophthalmic suspension INSTILL 2 DROPS INTO AFFECTED EYE 4 TIMES DAILY [id number]-akypndzjs-[id number] e (CORTISPORIN) otic solution INSTILL 3 4 DROPS IN AFFECTED EAR FOUR TIMES DAILY pantoprazole DR (PROTONIX) 40 mg tablet Take 40 mg by mouth once daily. BREO ELLIPTA 100-25 mcg/dose inhaler 1 Inhalation once daily. fenofibrate nanocrystallized (TRICOR) 145 mg tablet Take 145 mg by mouth once daily. oxyCODONE IR (ROXICODONE) 10 mg tab 10 mg as needed. levothyroxine (SYNTHROID) 50 mcg tablet Take 50 mcg by mouth once daily. MELOXICAM 15 mg tablet Take 15 mg by mouth as needed. GLUCOPHAGE 500 MG TAB Take 1,000 mg by mouth daily with breakfast. 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 HEENT: Negative for frequent or significant headaches. No changes in hearing or vision, no nose bleeds or other nasal problems. Respiratory: Negative for cough, wheezing or shortness of breath. Cardiovascular: Negative for chest pain, leg swelling or palpitations. GI: Negative for abdominal discomfort, blood in stools or black stools or change in bowel habits. : No history of dysuria, frequency or incontinence. Musculoskeletal: Right leg pain status post fracture- persistent. Skin: Negative for lesions, rash and itching. Hematology/Lymphology: Negative for prolonged bleeding, bruising easily or swollen nodes. Neuro: No history of headaches, syncope, paralysis, seizures or tremors. PHYSICAL EXAM: Vitals: BP 154/51 Pulse 65 Temp 36.6 C (97.9 F) (Temporal) Resp 18 Ht 175.3 cm (5' 9.02 ) Wt 87.7 kg (193 lb 5.5 oz) SpO2 97% BMI 28.54 kg/m ECOG 0 Exam limited to gross visualization where appropriate due to COVID-19. Gen.: This is an age-appropriate patient in no acute distress. Head: Appears atraumatic with no visible lesions. Eyes: Pupils equally round and reactive to light, extraocular muscles are intact. Neck: Supple. Mouth: Mucous membranes appeared to be moist. Respiratory: Appears to be respiring comfortably. Neurologic: Nonfocal to gross visualization. Alert and oriented 3. Psychiatric: No evidence of inappropriate anxiety or depression. Skin: Visible areas of skin without rash, lesions, wounds or petechiae. PATHOLOGY: 05/07/2020 Prostate biopsy ([facility]) FINAL DIAGNOSIS 1. Prostate, left base, core biopsy (A): Benign prostatic tissue 2. Prostate, left mid, core biopsy (B): Focal high-grade prostatic intraepithelial neoplasia (PIN) 3. Prostate, left apex, core biopsy (C): Benign prostatic tissue 4. Prostate, right base, core biopsy (D): Benign prostatic tissue 5. Prostate, right mid, core biopsy (E): Benign prostatic tissue 6. Prostate, right apex, core biopsy (F): Benign prostatic tissue 7. Prostate, T1 right mid posterolateral (PIRADS-4), core biopsy (G): Benign prostatic tissue with patchy atrophy and chronic inflammation RADIOLOGY/OTHER STUDIES: 03/02/2020 Prostate MRI IMPRESSION: Enlarged prostate with BPH. 0.5 cm PI-RADS 4 lesion in the RIGHT mid posterolateral peripheral zone. No pelvic lymphadenopathy or osseous lesions suspicious for metastases. 08/18/2019 - Bone survey at [facility] Conclusion: Scattered lytic lesions, stable in number and size from prior exams. 05/06/2018 - Bone Survey at [facility] Scattered lytic lesions, stable in both number and size from the prior exam. LABORATORY DATA: Hemoglobin (g/dL) Date Value 11/27/2023 13.3 09/27/2021 13.4 Hematocrit (%) Date Value 11/27/2023 39.1 09/27/2021 38.0 WBC (k/uL) Date Value 11/27/2023 4.01 09/27/2021 5.92 Platelet Count (k/uL) Date Value 11/27/2023 203 09/27/2021 189 PSA 12/10/2020 4.94 03/14/2022 5.40 03/06/2023 3.58 ASSESSMENT/PLAN: 1.00 Multiple myeloma (primary diagnosis) IgG kappa multiple myeloma initially diagnosed November 2002. At the time of diagnosis the patient had minimal disease, was asymptomatic, and observation was recommended. Disease progression in August of 2009. The patient received first line therapy with lenalidomide and Decadron given August 2009 through March 2010 which led to a partial response. Maintenance treatment with low-dose lenalidomide given August 2010 through October 2010, stopped due to adverse effects. The patient subsequently was observed. Disease progression August 2019. Treatment resumed with low dose Revlimid 10 mg daily, 3 weeks on and one-week off plus Decadron 4 mg weekly on 09/15/2019. The patient's paraprotein subsequently improved significantly. By November 2020 the patient developed musculoskeletal cramps which he attributed to the Revlimid, and he elected to stop the Revlimid after 12/05/2020. Labs obtained 03/08/2021 showed his M spike increased, and the patient resumed treatment with Revlimid 5 mg daily 21 days on 7 days off plus Decadron 8 mg weekly as of February 2021. Currently the patient is clinically stable and his labs are slowly improving. At this time the patient will continue as is with his current treatment. He will return in 3 months for follow-up and labs. If his paraprotein levels increase we will then discuss options for a more aggressive regimen. 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 The patient has healed from recent oral surgery. 3. 250.00 Diabetes mellitus Continue management per PCP. 4. V12.79 H/O ulcerative colitis Status post total colectomy 1990. No recurrent symptoms. 5. Spinal stenosis secondary to degenerative disc disease. Stable status post surgery (Dr. Harper) 01/26/2015. Continue follow-up with PCP/neurosurgery as indicated. 7. Elevated PSA and abnormal prostate MRI 03/02/2020 Elevated PSA February 2020. MRI prostate 03/02/2020 revealed a small PI-RADS 4 lesion in the right posterolateral zone. Prostate core biopsy 05/07/2020 consistent with focal high-grade prostatic intraepithelial neoplasia (PIN). Follow-up PSA values have remained stable. Per patient request we will repeat his PSA every 6 months. Otherwise continue management per PCP/urology. 8. Stage 3b chronic kidney disease (HCC) - ICD9: 585.3, ICD10: N18.32 Chronic renal insufficiency most likely multifactorial, in part due 2 diabetes +/- myeloma. Labs currently stable. Continue management per PCP. Referral to nephrology will be considered if renal function worsens. Claudia Wilson APRN.PASTORA I spent a total of 30 minutes on the date of the service which included preparing to see the patient, [id number] patient care, completing clinical documentation, obtaining and/or reviewing separately obtained history, performing a medically appropriate examination, counseling and educating the patient/family/caregiver, ordering medications, tests, or procedures, independently interpreting results (not separately reported), and communicating results to the patient/family/caregiver. documented in this encounter [facility] 11-23-2023 Miscellaneous Notes Patient has an appt on 11/26. Would you like labs? documented in this encounter [facility] 08-28-2023 Note HNO ID: [id number] Author: Uriel Gunter MD Service: ? Author Type: Physician Type: Progress Notes Filed: 08/29/2023 6:21 AM Note Text: PATIENT NAME: Zach Manuel DATE: 08/28/2023 PRIMARY CARE PHYSICIAN: Dr. Hanna Mathias OTHER PHYSICIANS: Dr. Lewis, Dr. Martinez Portions of this encounter note have been copied from the note from 05/29/2023 and has been updated where appropriate, and reflect my current medical decision making from today. CC: This is a 78 year old male with a history of multiple myeloma, seen for scheduled follow-up. INTERIM HISTORY: Since the patient's last visit here he underwent a tooth extraction in June and has healed well. No ongoing dental problems. Otherwise he has had no significant medical changes. No unusual bone pain or other systemic symptoms. He has remained on treatment with Revlimid 5 mg daily 21 days on and 7 days off plus Decadron 8 mg weekly. He is tolerating the treatment quite well. MEDICATIONS: lenalidomide (REVLIMID) 5 mg capsule Take 1 capsule by mouth daily for 21 days on and 7 days off. glyBURIDE micronized (GLYNASE) 6 mg tablet dexAMETHasone (DECADRON) 4 mg tablet TAKE 2 TABLETS BY MOUTH ONCE A WEEK JARDIANCE 10 mg tablet Take 10 mg by mouth once daily. DEXILANT 60 mg CpDM Take 1 capsule by mouth once daily. liothyronine (CYTOMEL) 5 mcg tablet metroNIDAZOLE (FLAGYL) 500 mg tablet vancomycin (VANCOCIN) 250 mg capsule pioglitazone (ACTOS) 30 mg tablet tobramycin-dexamethasone (TOBRADEX) ophthalmic suspension INSTILL 2 DROPS INTO AFFECTED EYE 4 TIMES DAILY wrgljvvu-tmxvbsifg-erwdpyziijkhu e (CORTISPORIN) otic solution INSTILL 3 4 DROPS IN AFFECTED EAR FOUR TIMES DAILY pantoprazole DR (PROTONIX) 40 mg tablet Take 40 mg by mouth once daily. BREO ELLIPTA 100-25 mcg/dose inhaler 1 Inhalation once daily. fenofibrate nanocrystallized (TRICOR) 145 mg tablet Take 145 mg by mouth once daily. oxyCODONE IR (ROXICODONE) 10 mg tab 10 mg as needed. levothyroxine (SYNTHROID) 50 mcg tablet Take 50 mcg by mouth once daily. MELOXICAM 15 mg tablet Take 15 mg by mouth as needed. GLUCOPHAGE 500 MG TAB Take 1,000 mg by mouth daily with breakfast. 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 HEENT: Negative for frequent or significant headaches. No changes in hearing or vision, no nose bleeds or other nasal problems. Respiratory: Negative for cough, wheezing or shortness of breath. Cardiovascular: Negative for chest pain, leg swelling or palpitations. GI: Negative for abdominal discomfort, blood in stools or black stools or change in bowel habits. : No history of dysuria, frequency or incontinence. Musculoskeletal: Right leg pain status post fracture- persistent. Skin: Negative for lesions, rash and itching. Hematology/Lymphology: Negative for prolonged bleeding, bruising easily or swollen nodes. Neuro: No history of headaches, syncope, paralysis, seizures or tremors. PHYSICAL EXAM: Vitals: BP 119/68 Pulse 62 Temp 36.2 ?C (97.2 ?F) (Temporal) Resp 20 Ht 175.3 cm (5' 9.02 ) Wt 86.3 kg (190 lb 3.2 oz) SpO2 98% BMI 28.07 kg/m? ECOG 0 Exam limited to gross visualization where appropriate due to COVID-19. Gen.: This is an age-appropriate patient in no acute distress. Head: Appears atraumatic with no visible lesions. Eyes: Pupils equally round and reactive to light, extraocular muscles are intact. Neck: Supple. Mouth: Mucous membranes appeared to be moist. Respiratory: Appears to be respiring comfortably. Neurologic: Nonfocal to gross visualization. Alert and oriented ?3. Psychiatric: No evidence of inappropriate anxiety or depression. Skin: Visible areas of skin without rash, lesions, wounds or petechiae. PATHOLOGY: 05/07/2020 Prostate biopsy ([facility]) FINAL DIAGNOSIS 1. Prostate, left base, core biopsy (A): Benign prostatic tissue 2. Prostate, left mid, core biopsy (B): Focal high-grade prostatic intraepithelial neoplasia (PIN) 3. Prostate, left apex, core biopsy (C): Benign prostatic tissue 4. Prostate, right base, core biopsy (D): Benign prostatic tissue 5. Prostate, right mid, core biopsy (E): Benign prostatic tissue 6. Prostate (more content not included)... [facility] 08-28-2023 History of Presen t illness Narrative PATIENT NAME: Zach Manuel DATE: 08/28/2023 PRIMARY CARE PHYSICIAN: Dr. Hanna Mathias OTHER PHYSICIANS: Dr. Lewis, Dr. Martinez Portions of this encounter note have been copied from the note from 05/29/2023 and has been updated where appropriate, and reflect my current medical decision making from today. CC: This is a 78 year old male with a history of multiple myeloma, seen for scheduled follow-up. INTERIM HISTORY: Since the patient's last visit here he underwent a tooth extraction in June and has healed well. No ongoing dental problems. Otherwise he has had no significant medical changes. No unusual bone pain or other systemic symptoms. He has remained on treatment with Revlimid 5 mg daily 21 days on and 7 days off plus Decadron 8 mg weekly. He is tolerating the treatment quite well. MEDICATIONS: lenalidomide (REVLIMID) 5 mg capsule Take 1 capsule by mouth daily for 21 days on and 7 days off. glyBURIDE micronized (GLYNASE) 6 mg tablet dexAMETHasone (DECADRON) 4 mg tablet TAKE 2 TABLETS BY MOUTH ONCE A WEEK JARDIANCE 10 mg tablet Take 10 mg by mouth once daily. DEXILANT 60 mg CpDM Take 1 capsule by mouth once daily. liothyronine (CYTOMEL) 5 mcg tablet metroNIDAZOLE (FLAGYL) 500 mg tablet vancomycin (VANCOCIN) 250 mg capsule pioglitazone (ACTOS) 30 mg tablet tobramycin-dexamethasone (TOBRADEX) ophthalmic suspension INSTILL 2 DROPS INTO AFFECTED EYE 4 TIMES DAILY wlzybmzr-orfthitcu-vyqpjzbkseprs e (CORTISPORIN) otic solution INSTILL 3 4 DROPS IN AFFECTED EAR FOUR TIMES DAILY pantoprazole DR (PROTONIX) 40 mg tablet Take 40 mg by mouth once daily. BREO ELLIPTA 100-25 mcg/dose inhaler 1 Inhalation once daily. fenofibrate nanocrystallized (TRICOR) 145 mg tablet Take 145 mg by mouth once daily. oxyCODONE IR (ROXICODONE) 10 mg tab 10 mg as needed. levothyroxine (SYNTHROID) 50 mcg tablet Take 50 mcg by mouth once daily. MELOXICAM 15 mg tablet Take 15 mg by mouth as needed. GLUCOPHAGE 500 MG TAB Take 1,000 mg by mouth daily with breakfast. ALLERGIES: Azithromycin, Erthromycin [Erythromycin], Sulfa (Sulfonamide Antibiotics), and Tobramycin PAST MEDICAL HISTORY: PAST MEDICAL HISTORY Diagnosis Date Diabetes mellitus (HCC) Hyperlipidemia Monoclonal gammopathy 11/2002 IgG [place] Multiple myeloma (HCC) 2002 Ulcerative colitis (HCC) PAST SURGICAL HISTORY: PAST SURGICAL HISTORY Procedure Laterality Date CHOLECYSTECTOMY HX 1993 open surgery HERNIA REPAIR HX 2009 left inguinal hernia with mesh, excision of cord lipoma, excision of scrotal cyst PAST SURGICAL HISTORY OF 1990 Total Colectomy; IPAA; 2 stage PAST SURGICAL HISTORY OF 1975 removed disc/spinal fusions PAST SURGICAL HISTORY OF 2010 back surgery PAST SURGICAL HISTORY OF 01/26/2015 back surgery REVIEW OF SYSTEMS: General: No weight loss, malaise or fevers. HEENT: Negative for frequent or significant headaches. No changes in hearing or vision, no nose bleeds or other nasal problems. Respiratory: Negative for cough, wheezing or shortness of breath. Cardiovascular: Negative for chest pain, leg swelling or palpitations. GI: Negative for abdominal discomfort, blood in stools or black stools or change in bowel habits. : No history of dysuria, frequency or incontinence. Musculoskeletal: Right leg pain status post fracture- persistent. Skin: Negative for lesions, rash and itching. Hematology/Lymphology: Negative for prolonged bleeding, bruising easily or swollen nodes. Neuro: No history of headaches, syncope, paralysis, seizures or tremors. PHYSICAL EXAM: Vitals: BP 119/68 Pulse 62 Temp 36.2 C (97.2 F) (Temporal) Resp 20 Ht 175.3 cm (5' 9.02 ) Wt 86.3 kg (190 lb 3.2 oz) SpO2 98% BMI 28.07 kg/m ECOG 0 Exam limited to gross visualization where appropriate due to COVID-19. Gen.: This is an age-appropriate patient in no acute distress. Head: Appears atraumatic with no visible lesions. Eyes: Pupils equally round and reactive to light, extraocular muscles are intact. Neck: Supple. Mouth: Mucous membranes appeared to be moist. Respiratory: Appears to be respiring comfortably. Neurologic: Nonfocal to gross visualization. Alert and oriented 3. Psychiatric: No evidence of inappropriate anxiety or depression. Skin: Visible areas of skin without rash, lesions, wounds or petechiae. PATHOLOGY: 05/07/2020 Prostate biopsy ([facility]) FINAL DIAGNOSIS 1. Prostate, left base, core biopsy (A): Benign prostatic tissue 2. Prostate, left mid, core biopsy (B): Focal high-grade prostatic intraepithelial neoplasia (PIN) 3. Prostate, left apex, core biopsy (C): Benign prostatic tissue 4. Prostate, right base, core biopsy (D): Benign prostatic tissue 5. Prostate, right mid, core biopsy (E): Benign prostatic tissue 6. Prostate, right apex, core biopsy (F): Benign prostatic tissue 7. Prostate, T1 right mid posterolateral (PIRADS-4), core biopsy (G): Benign prostatic tissue with patchy atrophy and chronic inflammation RADIOLOGY/OTHER STUDIES: 03/02/2020 Prostate MRI IMPRESSION: Enlarged prostate with BPH. 0.5 cm PI-RADS 4 lesion in the RIGHT mid posterolateral peripheral zone. No pelvic lymphadenopathy or osseous lesions suspicious for metastases. 08/18/2019 - Bone survey at [facility] Conclusion: Scattered lytic lesions, stable in number and size from prior exams. 05/06/2018 - Bone Survey at [facility] Scattered lytic lesions, stable in both number and size from the prior exam. LABORATORY DATA: Hemoglobin (g/dL) Date Value 08/28/2023 13.7 09/27/2021 13.4 Hematocrit (%) Date Value 08/28/2023 39.5 09/27/2021 38.0 WBC (k/uL) Date Value 08/28/2023 6.98 09/27/2021 5.92 Platelet Count (k/uL) Date Value 08/28/2023 207 09/27/2021 189 PSA 12/10/2020 4.94 03/14/2022 5.40 03/06/2023 3.58 ASSESSMENT/PLAN: Multiple myeloma (primary diagnosis) IgG kappa multiple myeloma initially diagnosed November 2002. At the time of diagnosis the patient had minimal disease, was asymptomatic, and observation was recommended. Disease progression in August of 2009. The patient received first line therapy with lenalidomide and Decadron given August 2009 through March 2010 which led to a partial response. Maintenance treatment with low-dose lenalidomide given August 2010 through October 2010, stopped due to adverse effects. The patient subsequently was observed. Disease progression August 2019. Treatment resumed with low dose Revlimid 10 mg daily, 3 weeks on and one-week off plus Decadron 4 mg weekly on 09/15/2019. The patient's paraprotein subsequently improved significantly. By November 2020 the patient developed musculoskeletal cramps which he attributed to the Revlimid, and he elected to stop the Revlimid after 12/05/2020. Labs obtained 03/08/2021 showed his M spike increased, and the patient resumed treatment with Revlimid 5 mg daily 21 days on 7 days off plus Decadron 8 mg weekly as of February 2021. Currently the patient is clinically stable and his labs are slowly improving. At this time the patient will continue as is with his current treatment. Return in 3 months for follow-up and labs. If his paraprotein levels increase we will then discuss options for a more aggressive regimen. 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 The patient has healed from recent oral surgery. He will receive Aredia today. 3. 250.00 Diabetes mellitus Continue management per PCP. 4. V12.79 H/O ulcerative colitis Status post total colectomy 1990. No recurrent symptoms. 5. Spinal stenosis secondary to degenerative disc disease. Stable status post surgery (Dr. Harper) 01/26/2015. Continue follow-up with PCP/neurosurgery as indicated. 7. Elevated PSA and abnormal prostate MRI 03/02/2020 Elevated PSA February 2020. MRI prostate 03/02/2020 revealed a small PI-RADS 4 lesion in the right posterolateral zone. Prostate core biopsy 05/07/2020 consistent with focal high-grade prostatic intraepithelial neoplasia (PIN). Follow-up PSA values have remained stable. Per patient request we will repeat his PSA every 6 months. Otherwise continue management per PCP/urology. 8. Stage 3b chronic kidney disease (HCC) - ICD9: 585.3, ICD10: N18.32 Chronic renal insufficiency most likely multifactorial, in part due 2 diabetes +/- myeloma. Labs currently stable. Continue management per PCP. Referral to nephrology will be considered if renal function worsens. Uriel Gunter MD documented in this encounter [facility] 05-31-2023 Miscellaneous Notes Pt informed of BRJessica message. He denies any questions or concerns at this time. Appt verifed Mary Kay Roland RN ----- Message from Uriel Gunter MD sent at 05/31/2023 12:08 PM EDT ----- Please inform the patient that his protein analysis is stable which is excellent news. We will continue as planned. documented in this encounter [facility] 05-29-2023 Note HNO ID: [id number] Author: Uriel Gunter MD Service: ? Author Type: Physician Type: Progress Notes Filed: 05/30/2023 7:17 AM Note Text: PATIENT NAME: Zach Manuel DATE: 05/29/2023 PRIMARY CARE PHYSICIAN: Dr. Hanna Mathias OTHER PHYSICIANS: Dr. Lewsi, Dr. Martinez Portions of this encounter note have been copied from the note from 03/06/2023 and has been updated where appropriate, and reflect my current medical decision making from today. CC: This is a 78 year old male with a history of multiple myeloma, seen for scheduled follow-up. INTERIM HISTORY: Since the patient's last visit here he has remained on treatment with Revlimid 5 mg daily 21 days on and 7 days off plus Decadron 8 mg weekly. He is tolerating the treatment quite well. Apparently he has had issues with his teeth and is scheduled to undergo several tooth extractions later this month. The patient has had no other significant medical changes. No unusual bone pain. No fevers or signs of infection. MEDICATIONS: lenalidomide (REVLIMID) 5 mg capsule Take 1 capsule by mouth daily for 21 days on and 7 days off. glyBURIDE micronized (GLYNASE) 6 mg tablet dexAMETHasone (DECADRON) 4 mg tablet TAKE 2 TABLETS BY MOUTH ONCE A WEEK JARDIANCE 10 mg tablet Take 10 mg by mouth once daily. DEXILANT 60 mg CpDM Take 1 capsule by mouth once daily. liothyronine (CYTOMEL) 5 mcg tablet metroNIDAZOLE (FLAGYL) 500 mg tablet vancomycin (VANCOCIN) 250 mg capsule pioglitazone (ACTOS) 30 mg tablet tobramycin-dexamethasone (TOBRADEX) ophthalmic suspension INSTILL 2 DROPS INTO AFFECTED EYE 4 TIMES DAILY nshvagnb-yahdhhvrm-wzuofhfahfitn e (CORTISPORIN) otic solution INSTILL 3 4 DROPS IN AFFECTED EAR FOUR TIMES DAILY pantoprazole DR (PROTONIX) 40 mg tablet Take 40 mg by mouth once daily. BREO ELLIPTA 100-25 mcg/dose inhaler 1 Inhalation once daily. fenofibrate nanocrystallized (TRICOR) 145 mg tablet Take 145 mg by mouth once daily. oxyCODONE IR (ROXICODONE) 10 mg tab 10 mg as needed. levothyroxine (SYNTHROID) 50 mcg tablet Take 50 mcg by mouth once daily. MELOXICAM 15 mg tablet Take 15 mg by mouth as needed. GLUCOPHAGE 500 MG TAB Take 1,000 mg by mouth daily with breakfast. 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 HEENT: Negative for frequent or significant headaches. No changes in hearing or vision, no nose bleeds or other nasal problems. Respiratory: Negative for cough, wheezing or shortness of breath. Cardiovascular: Negative for chest pain, leg swelling or palpitations. GI: Negative for abdominal discomfort, blood in stools or black stools or change in bowel habits. : No history of dysuria, frequency or incontinence. Musculoskeletal: Right leg pain status post fracture- persistent. Skin: Negative for lesions, rash and itching. Hematology/Lymphology: Negative for prolonged bleeding, bruising easily or swollen nodes. Neuro: No history of headaches, syncope, paralysis, seizures or tremors. PHYSICAL EXAM: Vitals: BP (!) 136/49 Pulse (!) 56 Temp 36.2 ?C (97.2 ?F) (Temporal) Resp 16 Ht 175.3 cm (5' 9.02 ) Wt 87.5 kg (192 lb 12.8 oz) SpO2 98% BMI 28.46 kg/m? ECOG 0 Exam limited to gross visualization where appropriate due to COVID-19. Gen.: This is an age-appropriate patient in no acute distress. Head: Appears atraumatic with no visible lesions. Eyes: Pupils equally round and reactive to light, extraocular muscles are intact. Neck: Supple. Mouth: Mucous membranes appeared to be moist. Respiratory: Appears to be respiring comfortably. Neurologic: Nonfocal to gross visualization. Alert and oriented ?3. Psychiatric: No evidence of inappropriate anxiety or depression. Skin: Visible areas of skin without rash, lesions, wounds or petechiae. PATHOLOGY: 05/07/2020 Prostate biopsy ([facility]) FINAL DIAGNOSIS 1. Prostate, left base, core biopsy (A): Benign prostatic tissue 2. Prostate, left mid, core biopsy (B): Focal high-grade prostatic intraepithelial neoplasia (PIN) 3. Prostate, left apex, core biopsy (C): Benign prostatic tissue 4. Prostate, right base, core biopsy (D): Benign prostatic tissue 5. Prostate, right mid, core biop (more content not included)... [facility] 05-29-2023 History of Presen t illness Narrative PATIENT NAME: Zach Manuel DATE: 05/29/2023 PRIMARY CARE PHYSICIAN: Dr. Hanna Mathias OTHER PHYSICIANS: Dr. Lewis, Dr. Martinez Portions of this encounter note have been copied from the note from 03/06/2023 and has been updated where appropriate, and reflect my current medical decision making from today. CC: This is a 78 year old male with a history of multiple myeloma, seen for scheduled follow-up. INTERIM HISTORY: Since the patient's last visit here he has remained on treatment with Revlimid 5 mg daily 21 days on and 7 days off plus Decadron 8 mg weekly. He is tolerating the treatment quite well. Apparently he has had issues with his teeth and is scheduled to undergo several tooth extractions later this month. The patient has had no other significant medical changes. No unusual bone pain. No fevers or signs of infection. MEDICATIONS: lenalidomide (REVLIMID) 5 mg capsule Take 1 capsule by mouth daily for 21 days on and 7 days off. glyBURIDE micronized (GLYNASE) 6 mg tablet dexAMETHasone (DECADRON) 4 mg tablet TAKE 2 TABLETS BY MOUTH ONCE A WEEK JARDIANCE 10 mg tablet Take 10 mg by mouth once daily. DEXILANT 60 mg CpDM Take 1 capsule by mouth once daily. liothyronine (CYTOMEL) 5 mcg tablet metroNIDAZOLE (FLAGYL) 500 mg tablet vancomycin (VANCOCIN) 250 mg capsule pioglitazone (ACTOS) 30 mg tablet tobramycin-dexamethasone (TOBRADEX) ophthalmic suspension INSTILL 2 DROPS INTO AFFECTED EYE 4 TIMES DAILY zdholflq-lwvnoulfk-svjltrtlydvlm e (CORTISPORIN) otic solution INSTILL 3 4 DROPS IN AFFECTED EAR FOUR TIMES DAILY pantoprazole DR (PROTONIX) 40 mg tablet Take 40 mg by mouth once daily. BREO ELLIPTA 100-25 mcg/dose inhaler 1 Inhalation once daily. fenofibrate nanocrystallized (TRICOR) 145 mg tablet Take 145 mg by mouth once daily. oxyCODONE IR (ROXICODONE) 10 mg tab 10 mg as needed. levothyroxine (SYNTHROID) 50 mcg tablet Take 50 mcg by mouth once daily. MELOXICAM 15 mg tablet Take 15 mg by mouth as needed. GLUCOPHAGE 500 MG TAB Take 1,000 mg by mouth daily with breakfast. 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 HEENT: Negative for frequent or significant headaches. No changes in hearing or vision, no nose bleeds or other nasal problems. Respiratory: Negative for cough, wheezing or shortness of breath. Cardiovascular: Negative for chest pain, leg swelling or palpitations. GI: Negative for abdominal discomfort, blood in stools or black stools or change in bowel habits. : No history of dysuria, frequency or incontinence. Musculoskeletal: Right leg pain status post fracture- persistent. Skin: Negative for lesions, rash and itching. Hematology/Lymphology: Negative for prolonged bleeding, bruising easily or swollen nodes. Neuro: No history of headaches, syncope, paralysis, seizures or tremors. PHYSICAL EXAM: Vitals: BP (!) 136/49 Pulse (!) 56 Temp 36.2 C (97.2 F) (Temporal) Resp 16 Ht 175.3 cm (5' 9.02 ) Wt 87.5 kg (192 lb 12.8 oz) SpO2 98% BMI 28.46 kg/m ECOG 0 Exam limited to gross visualization where appropriate due to COVID-19. Gen.: This is an age-appropriate patient in no acute distress. Head: Appears atraumatic with no visible lesions. Eyes: Pupils equally round and reactive to light, extraocular muscles are intact. Neck: Supple. Mouth: Mucous membranes appeared to be moist. Respiratory: Appears to be respiring comfortably. Neurologic: Nonfocal to gross visualization. Alert and oriented 3. Psychiatric: No evidence of inappropriate anxiety or depression. Skin: Visible areas of skin without rash, lesions, wounds or petechiae. PATHOLOGY: 05/07/2020 Prostate biopsy ([facility]) FINAL DIAGNOSIS 1. Prostate, left base, core biopsy (A): Benign prostatic tissue 2. Prostate, left mid, core biopsy (B): Focal high-grade prostatic intraepithelial neoplasia (PIN) 3. Prostate, left apex, core biopsy (C): Benign prostatic tissue 4. Prostate, right base, core biopsy (D): Benign prostatic tissue 5. Prostate, right mid, core biopsy (E): Benign prostatic tissue 6. Prostate, right apex, core biopsy (F): Benign prostatic tissue 7. Prostate, T1 right mid posterolateral (PIRADS-4), core biopsy (G): Benign prostatic tissue with patchy atrophy and chronic inflammation RADIOLOGY/OTHER STUDIES: 03/02/2020 Prostate MRI IMPRESSION: Enlarged prostate with BPH. 0.5 cm PI-RADS 4 lesion in the RIGHT mid posterolateral peripheral zone. No pelvic lymphadenopathy or osseous lesions suspicious for metastases. 08/18/2019 - Bone survey at [facility] Conclusion: Scattered lytic lesions, stable in number and size from prior exams. 05/06/2018 - Bone Survey at [facility] Scattered lytic lesions, stable in both number and size from the prior exam. LABORATORY DATA: Hemoglobin (g/dL) Date Value 05/29/2023 14.2 09/27/2021 13.4 Hematocrit (%) Date Value 05/29/2023 41.9 09/27/2021 38.0 WBC (k/uL) Date Value 05/29/2023 4.63 09/27/2021 5.92 Platelet Count (k/uL) Date Value 05/29/2023 199 09/27/2021 189 PSA 12/10/2020 4.94 03/14/2022 5.40 ASSESSMENT/PLAN: 1. 203.00 Multiple myeloma (primary diagnosis) IgG kappa multiple myeloma initially diagnosed November 2002. At the time of diagnosis the patient had minimal disease, was asymptomatic, and observation was recommended. Disease progression in August of 2009. The patient received first line therapy with lenalidomide and Decadron given August 2009 through March 2010 which led to a partial response. Maintenance treatment with low-dose lenalidomide given August 2010 through October 2010, stopped due to adverse effects. The patient subsequently was observed. Disease progression August 2019. Treatment resumed with low dose Revlimid 10 mg daily, 3 weeks on and one-week off plus Decadron 4 mg weekly on 09/15/2019. The patient's paraprotein subsequently improved significantly. By November 2020 the patient developed musculoskeletal cramps which he attributed to the Revlimid, and he elected to stop the Revlimid after 12/05/2020. Labs obtained 03/08/2021 showed his M spike increased, and the patient resumed treatment with Revlimid 5 mg daily 21 days on 7 days off plus Decadron 8 mg weekly as of February 2021. Currently the patient is clinically stable and his labs are slowly improving. At this time the patient will continue as is with his current treatment. Return in 3 months for follow-up and labs. If his paraprotein levels increase we will then discuss options for a more aggressive regimen. 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 Treatment was scheduled for today, but due to his scheduled tooth extraction we will postpone until his return visit in 3 months. 3. 250.00 Diabetes mellitus Continue management per PCP. 4. V12.79 H/O ulcerative colitis Status post total colectomy 1990. No recurrent symptoms. 5. Spinal stenosis secondary to degenerative disc disease. Stable status post surgery (Dr. Harper) 01/26/2015. Continue follow-up with PCP/neurosurgery as indicated. 7. Elevated PSA and abnormal prostate MRI 03/02/2020 Elevated PSA February 2020. MRI prostate 03/02/2020 revealed a small PI-RADS 4 lesion in the right posterolateral zone. Prostate core biopsy 05/07/2020 consistent with focal high-grade prostatic intraepithelial neoplasia (PIN). Follow-up PSA values have remained stable. Continue management per PCP/urology. 8. Stage 3b chronic kidney disease (HCC) - ICD9: 585.3, ICD10: N18.32 Chronic renal insufficiency most likely multifactorial, in part due 2 diabetes +/- myeloma. Labs currently stable. Continue management per PCP. Referral to nephrology will be considered if renal function worsens. Uriel Gunter MD documented in this encounter [facility] 03-06-2023 Note HNO ID: [id number] Author: Claudia Wilson APRN.UNIT RECEPTIONIST Service: ? Author Type: Nurse Practitioner Type: Progress Notes Filed: 03/06/2023 1:58 PM Note Text: PATIENT NAME: Zach Manuel DATE: 03/06/2023 PRIMARY CARE PHYSICIAN: Dr. Hanna Mathias OTHER PHYSICIANS: Dr. Lewis, Dr. Martinez Portions of this encounter note have been copied from the note from 01/05/2022 and has been updated where appropriate, and reflect my current medical decision making from today. CC: This is a 77 year old male with a history of multiple myeloma, seen for scheduled follow-up. INTERIM HISTORY: Zach Manuel returns for follow-up. He remains on treatment with Revlimid 5 mg daily 21 days on and 7 days off plus Decadron 8 mg weekly. He is currently on week 3 of the cycle. There has been no significant medical changes since his last visit. He is tolerating treatment well. He denies any side effects from treatment. He denies any new areas of pain. He denies fevers, chills, night sweats and signs/symptoms of infection. No bleeding or abnormal bruising. 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 Overall, he is doing well with no particular complaints today. MEDICATIONS: lenalidomide (REVLIMID) 5 mg capsule Take 1 capsule by mouth daily for 21 days on and 7 days off. dexAMETHasone (DECADRON) 4 mg tablet TAKE 2 TABLETS BY MOUTH ONCE A WEEK JARDIANCE 10 mg tablet Take 10 mg by mouth once daily. DEXILANT 60 mg CpDM Take 1 capsule by mouth once daily. liothyronine (CYTOMEL) 5 mcg tablet metroNIDAZOLE (FLAGYL) 500 mg tablet vancomycin (VANCOCIN) 250 mg capsule glyBURIDE micronized (GLYNASE) 3 mg tablet pioglitazone (ACTOS) 30 mg tablet tobramycin-dexamethasone (TOBRADEX) ophthalmic suspension INSTILL 2 DROPS INTO AFFECTED EYE 4 TIMES DAILY kdjszzyi-dhrgvxjig-yewqkravywqdq e (CORTISPORIN) otic solution INSTILL 3 4 DROPS IN AFFECTED EAR FOUR TIMES DAILY pantoprazole DR (PROTONIX) 40 mg tablet Take 40 mg by mouth once daily. BREO ELLIPTA 100-25 mcg/dose inhaler 1 Inhalation once daily. fenofibrate nanocrystallized (TRICOR) 145 mg tablet Take 145 mg by mouth once daily. oxyCODONE IR (ROXICODONE) 10 mg tab 10 mg as needed. levothyroxine (SYNTHROID) 50 mcg tablet Take 50 mcg by mouth once daily. MELOXICAM 15 mg tablet Take 15 mg by mouth as needed. GLUCOPHAGE 500 MG TAB Take 1,000 mg by mouth daily with breakfast. 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 HEENT: Negative for frequent or significant headaches. No changes in hearing or vision, no nose bleeds or other nasal problems. Respiratory: Negative for cough, wheezing or shortness of breath. Cardiovascular: Negative for chest pain, leg swelling or palpitations. GI: Negative for abdominal discomfort, blood in stools or black stools or change in bowel habits. : No history of dysuria, frequency or incontinence. Musculoskeletal: Right leg pain status post fracture- persistent. Skin: Negative for lesions, rash and itching. Hematology/Lymphology: Negative for prolonged bleeding, bruising easily or swollen nodes. Neuro: No history of headaches, syncope, paralysis, seizures or tremors. PHYSICAL EXAM: Vitals: BP 120/54 Pulse (!) 55 Temp 36.3 ?C (97.4 ?F) (Temporal) Resp 16 Ht 175.3 cm (5' 9.02 ) Wt 87.6 kg (193 lb 3.2 oz) SpO2 100% BMI 28.52 kg/m? ECOG 0 Exam limited to gross visualization where appropriate due to COVID-19. Gen.: This is an age-appropriate patient in no acute distress. Head: Appears atraumatic with no visible lesions. Eyes: Pupils equally round and reactive to light, extraocular muscles are intact. Neck: Supple. Mouth: Mucous membranes appeared to be moist. Respiratory: Appears to be respiring comfortably. Neurologic: Nonfocal to gross visualization. Alert and oriented ?3. Psychiatric: No evidence of inappropriate anxiety or depression. Skin: Visible areas of skin without rash, lesions, wounds or petechiae. PATHOLOGY: 05/07/2020 Prostate biopsy ([facility]) FINAL DIAGNOSIS 1. Prostate, left base, core biopsy (A): Benign prostatic tissue 2. Prostate, left mid, core biopsy (more content not included)... [facility] 02-27-2023 Miscellaneous Notes Patient has an OTV appointment on 03/06. Please place lab orders. Monica Baptiste documented in this encounter [facility] 12-05-2022 History of Presen t illness Narrative PATIENT NAME: Zach Manuel DATE: 12/05/2022 PRIMARY CARE PHYSICIAN: Dr. Hanna Mathias OTHER PHYSICIANS: Dr. Lewis, Dr. Martinez Portions of this encounter note have been copied from the note from 09/12/2022 and has been updated where appropriate, and reflect my current medical decision making from today. CC: This is a 77 year old male with a history of multiple myeloma, seen for scheduled follow-up. INTERIM HISTORY: Since the patient's last visit here he has had no significant medical changes. He remains on treatment with Revlimid 5 mg daily 21 days on 7 days off plus Decadron 8 mg weekly. He is tolerating these medications well. Since his last visit he has had no unusual pain. No signs of bleeding or bruising. Overall he feels well with no particular complaints. MEDICATIONS: lenalidomide (REVLIMID) 5 mg capsule Take 1 capsule by mouth daily for 21 days on and 7 days off. dexAMETHasone (DECADRON) 4 mg tablet TAKE 2 TABLETS BY MOUTH ONCE A WEEK JARDIANCE 10 mg tablet Take 10 mg by mouth once daily. DEXILANT 60 mg CpDM Take 1 capsule by mouth once daily. liothyronine (CYTOMEL) 5 mcg tablet metroNIDAZOLE (FLAGYL) 500 mg tablet vancomycin (VANCOCIN) 250 mg capsule glyBURIDE micronized (GLYNASE) 3 mg tablet pioglitazone (ACTOS) 30 mg tablet tobramycin-dexamethasone (TOBRADEX) ophthalmic suspension INSTILL 2 DROPS INTO AFFECTED EYE 4 TIMES DAILY yrfevdnh-wpqjrsivm-xbeoyndgfpfed e (CORTISPORIN) otic solution INSTILL 3 4 DROPS IN AFFECTED EAR FOUR TIMES DAILY pantoprazole DR (PROTONIX) 40 mg tablet Take 40 mg by mouth once daily. BREO ELLIPTA 100-25 mcg/dose inhaler 1 Inhalation once daily. fenofibrate nanocrystallized (TRICOR) 145 mg tablet Take 145 mg by mouth once daily. oxyCODONE IR (ROXICODONE) 10 mg tab 10 mg as needed. levothyroxine (SYNTHROID) 50 mcg tablet Take 50 mcg by mouth once daily. MELOXICAM 15 mg tablet Take 15 mg by mouth as needed. GLUCOPHAGE 500 MG TAB Take 1,000 mg by mouth daily with breakfast. 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 HEENT: Negative for frequent or significant headaches. No changes in hearing or vision, no nose bleeds or other nasal problems. Respiratory: Negative for cough, wheezing or shortness of breath. Cardiovascular: Negative for chest pain, leg swelling or palpitations. GI: Negative for abdominal discomfort, blood in stools or black stools or change in bowel habits. : No history of dysuria, frequency or incontinence. Musculoskeletal: Right leg pain status post fracture- persistent. Skin: Negative for lesions, rash and itching. Hematology/Lymphology: Negative for prolonged bleeding, bruising easily or swollen nodes. Neuro: No history of headaches, syncope, paralysis, seizures or tremors. PHYSICAL EXAM: Vitals: BP 135/58 Pulse 60 Temp 36.2 C (97.1 F) (Temporal) Resp 18 Ht 175.3 cm (5' 9.02 ) Wt 85.5 kg (188 lb 9.6 oz) SpO2 97% BMI 27.84 kg/m ECOG 0 Exam limited to gross visualization where appropriate due to COVID-19. Gen.: This is an age-appropriate patient in no acute distress. Head: Appears atraumatic with no visible lesions. Eyes: Pupils equally round and reactive to light, extraocular muscles are intact. Neck: Supple. Mouth: Mucous membranes appeared to be moist. Respiratory: Appears to be respiring comfortably. Neurologic: Nonfocal to gross visualization. Alert and oriented 3. Psychiatric: No evidence of inappropriate anxiety or depression. Skin: Visible areas of skin without rash, lesions, wounds or petechiae. PATHOLOGY: 05/07/2020 Prostate biopsy ([facility]) FINAL DIAGNOSIS 1. Prostate, left base, core biopsy (A): Benign prostatic tissue 2. Prostate, left mid, core biopsy (B): Focal high-grade prostatic intraepithelial neoplasia (PIN) 3. Prostate, left apex, core biopsy (C): Benign prostatic tissue 4. Prostate, right base, core biopsy (D): Benign prostatic tissue 5. Prostate, right mid, core biopsy (E): Benign prostatic tissue 6. Prostate, right apex, core biopsy (F): Benign prostatic tissue 7. Prostate, T1 right mid posterolateral (PIRADS-4), core biopsy (G): Benign prostatic tissue with patchy atrophy and chronic inflammation RADIOLOGY/OTHER STUDIES: 03/02/2020 Prostate MRI IMPRESSION: Enlarged prostate with BPH. 0.5 cm PI-RADS 4 lesion in the RIGHT mid posterolateral peripheral zone. No pelvic lymphadenopathy or osseous lesions suspicious for metastases. 08/18/2019 - Bone survey at [facility] Conclusion: Scattered lytic lesions, stable in number and size from prior exams. 05/06/2018 - Bone Survey at [facility] Scattered lytic lesions, stable in both number and size from the prior exam. LABORATORY DATA: Hemoglobin (g/dL) Date Value 12/05/2022 14.3 09/27/2021 13.4 Hematocrit (%) Date Value 12/05/2022 42.2 09/27/2021 38.0 WBC (k/uL) Date Value 12/05/2022 5.99 09/27/2021 5.92 Platelet Count (k/uL) Date Value 12/05/2022 187 09/27/2021 189 PSA 12/10/2020 4.94 03/14/2022 5.40 ASSESSMENT/PLAN: Multiple myeloma (primary diagnosis) IgG kappa multiple myeloma initially diagnosed November 2002. At the time of diagnosis the patient had minimal disease, was asymptomatic, and observation was recommended. Disease progression in August of 2009. The patient received first line therapy with lenalidomide and Decadron given August 2009 through March 2010 which led to a partial response. Maintenance treatment with low-dose lenalidomide given August 2010 through October 2010, stopped due to adverse effects. The patient subsequently was observed. Disease progression August 2019. Treatment resumed with low dose Revlimid 10 mg daily, 3 weeks on and one-week off plus Decadron 4 mg weekly on 09/15/2019. The patient's paraprotein subsequently improved significantly. By November 2020 the patient developed musculoskeletal cramps which he attributed to the Revlimid, and he elected to stop the Revlimid after 12/05/2020. Labs obtained 03/08/2021 showed his M spike increased, and the patient resumed treatment with Revlimid 5 mg daily 21 days on 7 days off plus Decadron 8 mg weekly as of February 2021. Currently the patient is clinically stable and his labs are slowly improving. At this time the patient will continue as is with his current treatment. We will see him back in 3 months for follow-up. 2. 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 Currently he is on Aredia 30 mg IV every 6 months and remains clinically stable. He will receive his next Aredia today. 3. 250.00 Diabetes mellitus Continue management per PCP. 4. V12.79 H/O ulcerative colitis Status post total colectomy 1990. No recurrent symptoms. 5. Spinal stenosis secondary to degenerative disc disease. Stable status post surgery (Dr. Harper) 01/26/2015. Continue follow-up with PCP/neurosurgery as indicated. 7. Elevated PSA and abnormal prostate MRI 03/02/2020 Elevated PSA February 2020. MRI prostate 03/02/2020 revealed a small PI-RADS 4 lesion in the right posterolateral zone. Prostate core biopsy 05/07/2020 consistent with focal high-grade prostatic intraepithelial neoplasia (PIN). Follow-up PSA values have remained stable. Continue management per PCP/urology. Uriel Gunter MD documented in this encounter [facility] 11-27-2022 Miscellaneous Notes Addended by: URIEL GUNTER on: 11/27/2022 01:06 PM Modules accepted: Orders Patient coming in on Sunday12/05/22 for follow up treatment. Please add lab orders. Thanks, Selin Stapleton MA documented in this encounter [facility] 09-21-2022 Miscellaneous Notes Please sign in everyone's absence. Thank you Dustin Reinoso rPh documented in this encounter [facility] 09-12-2022 History of Presen t illness Narrative PATIENT NAME: Zach Manuel DATE: 09/12/2022 PRIMARY CARE PHYSICIAN: Dr. Hanna Mathias OTHER PHYSICIANS: Dr. Lewis, Dr. Martinez Portions of this encounter note have been copied from the note from 06/20/2022 and has been updated where appropriate, and reflect my current medical decision making from today. CC: This is a 77 year old male with a history of multiple myeloma, seen for scheduled follow-up. INTERIM HISTORY: Since the patient's last visit here he has had no significant medical changes. He remains on treatment with Revlimid 5 mg daily 21 days on 7 days off plus Decadron 8 mg weekly. He is tolerating medications well. Since his last visit he has had no unusual pain. No signs of bleeding or bruising. Recent PSA obtained by his PCP actually was down somewhat. MEDICATIONS: lenalidomide (REVLIMID) 5 mg capsule Take 1 capsule by mouth daily for 21 days on and 7 days off. DEXILANT 60 mg CpDM Take 1 capsule by mouth once daily. liothyronine (CYTOMEL) 5 mcg tablet metroNIDAZOLE (FLAGYL) 500 mg tablet vancomycin (VANCOCIN) 250 mg capsule glyBURIDE micronized (GLYNASE) 3 mg tablet pioglitazone (ACTOS) 30 mg tablet dexAMETHasone (DECADRON) 4 mg tablet TAKE 2 TABLETS BY MOUTH ONCE A WEEK tobramycin-dexamethasone (TOBRADEX) ophthalmic suspension INSTILL 2 DROPS INTO AFFECTED EYE 4 TIMES DAILY ldpgepyd-demguinxr-izqxuatgmwgir e (CORTISPORIN) otic solution INSTILL 3 4 DROPS IN AFFECTED EAR FOUR TIMES DAILY pantoprazole DR (PROTONIX) 40 mg tablet Take 40 mg by mouth once daily. BREO ELLIPTA 100-25 mcg/dose inhaler 1 Inhalation once daily. fenofibrate nanocrystallized (TRICOR) 145 mg tablet Take 145 mg by mouth once daily. oxyCODONE IR (ROXICODONE) 10 mg tab 10 mg as needed. levothyroxine (SYNTHROID) 50 mcg tablet Take 50 mcg by mouth once daily. MELOXICAM 15 mg tablet Take 15 mg by mouth as needed. GLUCOPHAGE 500 MG TAB Take 1,000 mg by mouth daily with breakfast. 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 HEENT: Negative for frequent or significant headaches. No changes in hearing or vision, no nose bleeds or other nasal problems. Respiratory: Negative for cough, wheezing or shortness of breath. Cardiovascular: Negative for chest pain, leg swelling or palpitations. GI: Negative for abdominal discomfort, blood in stools or black stools or change in bowel habits. : No history of dysuria, frequency or incontinence. Musculoskeletal: Right leg pain status post fracture- persistent. Skin: Negative for lesions, rash and itching. Hematology/Lymphology: Negative for prolonged bleeding, bruising easily or swollen nodes. Neuro: No history of headaches, syncope, paralysis, seizures or tremors. PHYSICAL EXAM: Vitals: BP 123/53 Pulse 67 Temp 36.4 C (97.6 F) (Temporal) Resp 18 Ht 175.3 cm (5' 9.02 ) Wt 87.8 kg (193 lb 9.6 oz) SpO2 97% BMI 28.58 kg/m ECOG 0 Exam limited to gross visualization where appropriate due to COVID-19. Gen.: This is an age-appropriate patient in no acute distress. Head: Appears atraumatic with no visible lesions. Eyes: Pupils equally round and reactive to light, extraocular muscles are intact. Neck: Supple. Mouth: Mucous membranes appeared to be moist. Respiratory: Appears to be respiring comfortably. Neurologic: Nonfocal to gross visualization. Alert and oriented 3. Psychiatric: No evidence of inappropriate anxiety or depression. Skin: Visible areas of skin without rash, lesions, wounds or petechiae. PATHOLOGY: 05/07/2020 Prostate biopsy ([facility]) FINAL DIAGNOSIS 1. Prostate, left base, core biopsy (A): Benign prostatic tissue 2. Prostate, left mid, core biopsy (B): Focal high-grade prostatic intraepithelial neoplasia (PIN) 3. Prostate, left apex, core biopsy (C): Benign prostatic tissue 4. Prostate, right base, core biopsy (D): Benign prostatic tissue 5. Prostate, right mid, core biopsy (E): Benign prostatic tissue 6. Prostate, right apex, core biopsy (F): Benign prostatic tissue 7. Prostate, T1 right mid posterolateral (PIRADS-4), core biopsy (G): Benign prostatic tissue with patchy atrophy and chronic inflammation RADIOLOGY/OTHER STUDIES: 03/02/2020 Prostate MRI IMPRESSION: Enlarged prostate with BPH. 0.5 cm PI-RADS 4 lesion in the RIGHT mid posterolateral peripheral zone. No pelvic lymphadenopathy or osseous lesions suspicious for metastases. 08/18/2019 - Bone survey at [facility] Conclusion: Scattered lytic lesions, stable in number and size from prior exams. 05/06/2018 - Bone Survey at [facility] Scattered lytic lesions, stable in both number and size from the prior exam. LABORATORY DATA: Hemoglobin (g/dL) Date Value 09/12/2022 14.4 09/27/2021 13.4 Hematocrit (%) Date Value 09/12/2022 41.5 09/27/2021 38.0 WBC (k/uL) Date Value 09/12/2022 5.87 09/27/2021 5.92 Platelet Count (k/uL) Date Value 09/12/2022 187 09/27/2021 189 PSA 12/10/2020 4.94 03/14/2022 5.40 ASSESSMENT/PLAN: 203.00 Multiple myeloma (primary diagnosis) IgG kappa multiple myeloma initially diagnosed November 2002. At the time of diagnosis the patient had minimal disease, was asymptomatic, and observation was recommended. Disease progression in August of 2009. The patient received first line therapy with lenalidomide and Decadron given August 2009 through March 2010 which led to a partial response. Maintenance treatment with low-dose lenalidomide given August 2010 through October 2010, stopped due to adverse effects. The patient subsequently was observed. Disease progression August 2019. Treatment resumed with low dose Revlimid 10 mg daily, 3 weeks on and one-week off plus Decadron 4 mg weekly on 09/15/2019. The patient's paraprotein subsequently improved significantly. By November 2020 the patient developed musculoskeletal cramps which he attributed to the Revlimid, and he elected to stop the Revlimid after 12/05/2020. Labs obtained 03/08/2021 showed his M spike increased, and the patient resumed treatment with Revlimid 5 mg daily 21 days on 7 days off plus Decadron 8 mg weekly as of February 2021. Currently the patient is clinically stable and his labs are slowly improving. At this time the patient will continue as is with his current treatment. We will see him back in 12 weeks for follow-up. 2. 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 Currently he is on Aredia 30 mg IV every 6 months and remains stable. He will receive his next Aredia in 3 months on return visit. 3. 250.00 Diabetes mellitus Continue management per PCP. 4. V12.79 H/O ulcerative colitis Status post total colectomy 1990. No recurrent symptoms. 5. Spinal stenosis secondary to degenerative disc disease. Stable status post surgery (Dr. Harper) 01/26/2015. Continue follow-up with PCP/neurosurgery as indicated. 7. Elevated PSA and abnormal prostate MRI 03/02/2020 Elevated PSA February 2020. MRI prostate 03/02/2020 revealed a small PI-RADS 4 lesion in the right posterolateral zone. Prostate core biopsy 05/07/2020 consistent with focal high-grade prostatic intraepithelial neoplasia (PIN). Follow-up PSA values have remained stable. Continue management per PCP/urology. Uriel Gunter MD documented in this encounter [facility] 06-20-2022 History of Presen t illness Narrative Recommendations per pharmacist Humaira Reinoso Rph for patient to take calcium with Vit D 1 tab twice daily especially as his calcium levels normally run low. Patient education complete with printed material. Questions answered as appropriate. He was encouraged to call with questions or concerns. Ese Ferro RN documented in this encounter [facility] 06-20-2022 History of Presen t illness Narrative PATIENT NAME: Zach Manuel DATE: 06/20/2022 PRIMARY CARE PHYSICIAN: Dr. Hanna Mathias OTHER PHYSICIANS: Dr. Lewis, Dr. Martinez Portions of this encounter note have been copied from the note from 03/21/2022 and has been updated where appropriate, and reflect my current medical decision making from today. CC: This is a 76 year old male with a history of multiple myeloma, seen for scheduled follow-up. INTERIM HISTORY: Zach Manuel returns for follow-up. He remains on Revlimid 5 mg daily for 21 days on and 7 days off. He also takes Decadron 8 mg weekly when on treatment with Revlimid. He is tolerating the Revlimid and Decadron well. He denies any side effects from treatment. There has been no significant medical changes since his last visit. He denies any pain from the multiple myeloma. He denies fevers, chills, night sweats, signs/symptoms of infection and unintentional weight loss. He denies bleeding and abnormal bruising. Overall, he is doing fairly well. 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 Patient follows with Dr. Mathias his PCP and Dr. Lewis his urologist for the elevated PSA levels. MEDICATIONS: lenalidomide (REVLIMID) 5 mg capsule Take 1 capsule by mouth daily for 21 days on and 7 days off. DEXILANT 60 mg CpDM Take 1 capsule by mouth once daily. liothyronine (CYTOMEL) 5 mcg tablet metroNIDAZOLE (FLAGYL) 500 mg tablet vancomycin (VANCOCIN) 250 mg capsule glyBURIDE micronized (GLYNASE) 3 mg tablet pioglitazone (ACTOS) 30 mg tablet dexAMETHasone (DECADRON) 4 mg tablet TAKE 2 TABLETS BY MOUTH ONCE A WEEK tobramycin-dexamethasone (TOBRADEX) ophthalmic suspension INSTILL 2 DROPS INTO AFFECTED EYE 4 TIMES DAILY jahsldvc-qpzqitgsv-yqwyedskjwuxg e (CORTISPORIN) otic solution INSTILL 3 4 DROPS IN AFFECTED EAR FOUR TIMES DAILY pantoprazole DR (PROTONIX) 40 mg tablet Take 40 mg by mouth once daily. BREO ELLIPTA 100-25 mcg/dose inhaler 1 Inhalation once daily. fenofibrate nanocrystallized (TRICOR) 145 mg tablet Take 145 mg by mouth once daily. oxyCODONE IR (ROXICODONE) 10 mg tab 10 mg as needed. levothyroxine (SYNTHROID) 50 mcg tablet Take 50 mcg by mouth once daily. MELOXICAM 15 mg tablet Take 15 mg by mouth as needed. GLUCOPHAGE 500 MG TAB Take 1,000 mg by mouth daily with breakfast. ALLERGIES: Azithromycin, Erthromycin [Erythromycin], Sulfa (Sulfonamide Antibiotics), and Tobramycin PAST MEDICAL HISTORY: PAST MEDICAL HISTORY Diagnosis Date Diabetes mellitus (HCC) Hyperlipidemia Monoclonal gammopathy 11/2002 IgG [place] Multiple myeloma (HCC) 2002 Ulcerative colitis (HCC) PAST SURGICAL HISTORY: PAST SURGICAL HISTORY Procedure Laterality Date CHOLECYSTECTOMY HX 1993 open surgery HERNIA REPAIR HX 2010 left inguinal hernia with mesh, excision of cord lipoma, excision of scrotal cyst PAST SURGICAL HISTORY OF 1990 Total Colectomy; IPAA; 2 stage PAST SURGICAL HISTORY OF 1974 removed disc/spinal fusions PAST SURGICAL HISTORY OF 2010 back surgery PAST SURGICAL HISTORY OF 01/26/2015 back surgery REVIEW OF SYSTEMS: General: No weight loss, malaise or fevers. HEENT: Negative for frequent or significant headaches. No changes in hearing or vision, no nose bleeds or other nasal problems. Respiratory: Negative for cough, wheezing or shortness of breath. Cardiovascular: Negative for chest pain, leg swelling or palpitations. GI: Negative for abdominal discomfort, blood in stools or black stools or change in bowel habits. : No history of dysuria, frequency or incontinence. Musculoskeletal: Right leg pain status post fracture- persistent. Skin: Negative for lesions, rash and itching. Hematology/Lymphology: Negative for prolonged bleeding, bruising easily or swollen nodes. Neuro: No history of headaches, syncope, paralysis, seizures or tremors. PHYSICAL EXAM: Vitals: BP 152/52 Pulse 79 Temp 36.2 C (97.1 F) (Temporal) Resp 16 Ht 175.3 cm (5' 9.02 ) Wt 89.8 kg (198 lb) SpO2 97% BMI 29.23 kg/m ECOG 0 Exam limited to gross visualization where appropriate due to COVID-19. Gen.: This is an age-appropriate patient in no acute distress. Head: Appears atraumatic with no visible lesions. Eyes: Pupils equally round and reactive to light, extraocular muscles are intact. Neck: Supple. Mouth: Mucous membranes appeared to be moist. Respiratory: Appears to be respiring comfortably. Neurologic: Nonfocal to gross visualization. Alert and oriented 3. Psychiatric: No evidence of inappropriate anxiety or depression. Skin: Visible areas of skin without rash, lesions, wounds or petechiae. PATHOLOGY: 05/07/2020 Prostate biopsy ([facility]) FINAL DIAGNOSIS 1. Prostate, left base, core biopsy (A): Benign prostatic tissue 2. Prostate, left mid, core biopsy (B): Focal high-grade prostatic intraepithelial neoplasia (PIN) 3. Prostate, left apex, core biopsy (C): Benign prostatic tissue 4. Prostate, right base, core biopsy (D): Benign prostatic tissue 5. Prostate, right mid, core biopsy (E): Benign prostatic tissue 6. Prostate, right apex, core biopsy (F): Benign prostatic tissue 7. Prostate, T1 right mid posterolateral (PIRADS-4), core biopsy (G): Benign prostatic tissue with patchy atrophy and chronic inflammation RADIOLOGY/OTHER STUDIES: 03/02/2020 Prostate MRI IMPRESSION: Enlarged prostate with BPH. 0.5 cm PI-RADS 4 lesion in the RIGHT mid posterolateral peripheral zone. No pelvic lymphadenopathy or osseous lesions suspicious for metastases. 08/18/2019 - Bone survey at [facility] Conclusion: Scattered lytic lesions, stable in number and size from prior exams. 05/06/2018 - Bone Survey at [facility] Scattered lytic lesions, stable in both number and size from the prior exam. LABORATORY DATA: Hemoglobin (g/dL) Date Value 06/20/2022 12.9 09/27/2021 13.4 Hematocrit (%) Date Value 06/20/2022 37.1 09/27/2021 38.0 WBC (k/uL) Date Value 06/20/2022 4.57 09/27/2021 5.92 Platelet Count (k/uL) Date Value 06/20/2022 234 09/27/2021 189 03/14/2022 PSA 5.4, 19.1% free 12/10/2020 PSA 4.94, 35% free ASSESSMENT/PLAN: 1. 203.00 Multiple myeloma (primary diagnosis) IgG kappa multiple myeloma initially diagnosed November 2002. At the time of diagnosis the patient had minimal disease, was asymptomatic, and observation was recommended. Disease progression in August of 2009. The patient received first line therapy with lenalidomide and Decadron given August 2009 through March 2010 which led to a partial response. Maintenance treatment with low-dose lenalidomide given August 2010 through October 2010, stopped due to adverse effects. The patient subsequently was observed. Disease progression August 2019. Treatment resumed with low dose Revlimid 10 mg daily, 3 weeks on and one-week off plus Decadron 4 mg weekly on 09/15/2019. The patient's paraprotein subsequently improved significantly. By November 2020 the patient developed musculoskeletal cramps which he attributed to the Revlimid, and he elected to stop the Revlimid after 12/05/2020. Labs obtained 03/08/2021 showed his M spike increased, and the patient resumed treatment with Revlimid 5 mg daily 21 days on and 7 days off plus Decadron 8 mg weekly as of February 2021. Currently the patient is clinically stable and his labs are slowly improving. At this time the patient will continue as is with his current treatment. We will see him back in 12 weeks for follow-up. 2. 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 Currently he is on Aredia 30 mg IV every 6 months and remains stable. He will receive Aredia today. The patient will receive his next Aredia November 2022. 3. 250.00 Diabetes mellitus Continue management per PCP. 4. V12.79 H/O ulcerative colitis Status post total colectomy 1990. No recurrent symptoms. 5. Spinal stenosis secondary to degenerative disc disease. Stable status post surgery (Dr. Harper) 01/26/2015. Continue follow-up with PCP/neurosurgery as indicated. 7. Elevated PSA and abnormal prostate MRI 03/02/2020 Elevated PSA February 2020. MRI prostate 03/02/2020 revealed a small PI-RADS 4 lesion in the right posterolateral zone. Prostate core biopsy 05/07/2020 consistent with focal high-grade prostatic intraepithelial neoplasia (PIN). Follow-up PSA 12/10/2020 4.94 with 35% free. Most recent PSA 03/14/2022 up slightly at 5.4 with 19% free. The patient is aware that there is an approximately 20% chance he has underlying malignancy. For now we will monitor with repeat labs every 6 months. Consider repeat prostate MRI if the PSA worsen significantly. Claudia Wilson APRN.PASTORA documented in this encounter [facility] 06-20-2022 Miscellaneous Notes Pt due for Aredia today. Pharmacy suggests checking pt's Calcium level w/ today's labs. Order pended. Juan Ferguson RN documented in this encounter [facility] 06-16-2022 Miscellaneous Notes Please sign for Dr. Gunter since he is out of the office. Thanks, Claudia Wilson APRN.UNIT RECEPTIONIST documented in this encounter [facility] 06-15-2022 Miscellaneous Notes Patient has an appt on 06/20. Would you like labs? documented in this encounter [facility] 04-20-2022 Miscellaneous Notes Signed documented in this encounter [facility] 2022 Miscellaneous Notes New benjamin obtained through [facility] for $[id number] on ID# [id number] Enrollment 02/27/2022 through 02/26/2023 documented in this encounter [facility] 03-24-2022 Miscellaneous Notes Informed pt's of Dr Gunter's message. Janett verbalized understanding and denies further needs at this time. Funmilayo Arriola RN ----- Message from Uriel Gunter MD sent at 03/23/2022 4:50 PM EDT ----- Please inform the patient that his labs are stable, M spike down to 0.68. We will continue as planned. TAYLOR Avery documented in this encounter [facility] 03-21-2022 History of Presen t illness Narrative PATIENT NAME: Zach Manuel DATE: 03/21/2022 PRIMARY CARE PHYSICIAN: Dr. Hanna Mathias OTHER PHYSICIANS: Dr. Lewis, Dr. Juan Portions of this encounter note have been copied from the note from 01/24/2022 and has been updated where appropriate, and reflect my current medical decision making from today. CC: This is a 76 year old male with a history of multiple myeloma, seen for scheduled follow-up. INTERIM HISTORY: Since the patient's last visit here he has had no significant medical changes. He remains on Revlimid 5 mg daily 3 weeks on 1 week off plus Decadron 8 mg weekly. He is tolerating this treatment well. Currently the patient denies any unusual pain. No fevers, night sweats or weight loss. The patient's only current concern is the significance of his elevated PSA. Labs 03/14/2022 revealed a PSA of 5.4 with 19.1% free. His urologist suggested no further action necessary, but the patient's PCP is concerned and recommended further work-up. The patient has had no urinary symptoms. MEDICATIONS: lenalidomide (REVLIMID) 5 mg capsule Take 1 capsule by mouth daily for 21 days on and 7 days off. DEXILANT 60 mg CpDM Take 1 capsule by mouth once daily. liothyronine (CYTOMEL) 5 mcg tablet metroNIDAZOLE (FLAGYL) 500 mg tablet vancomycin (VANCOCIN) 250 mg capsule glyBURIDE micronized (GLYNASE) 3 mg tablet pioglitazone (ACTOS) 30 mg tablet dexAMETHasone (DECADRON) 4 mg tablet TAKE 2 TABLETS BY MOUTH ONCE A WEEK tobramycin-dexamethasone (TOBRADEX) ophthalmic suspension INSTILL 2 DROPS INTO AFFECTED EYE 4 TIMES DAILY gddevnpe-pkkkwsmar-sapqwmprbctdz e (CORTISPORIN) otic solution INSTILL 3 4 DROPS IN AFFECTED EAR FOUR TIMES DAILY pantoprazole DR (PROTONIX) 40 mg tablet Take 40 mg by mouth once daily. BREO ELLIPTA 100-25 mcg/dose inhaler 1 Inhalation once daily. fenofibrate nanocrystallized (TRICOR) 145 mg tablet Take 145 mg by mouth once daily. oxyCODONE IR (ROXICODONE) 10 mg tab 10 mg as needed. levothyroxine (SYNTHROID) 50 mcg tablet Take 50 mcg by mouth once daily. MELOXICAM 15 mg tablet Take 15 mg by mouth as needed. GLUCOPHAGE 500 MG TAB Take 1,000 mg by mouth daily with breakfast. 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 HEENT: Negative for frequent or significant headaches. No changes in hearing or vision, no nose bleeds or other nasal problems. Respiratory: Negative for cough, wheezing or shortness of breath. Cardiovascular: Negative for chest pain, leg swelling or palpitations. GI: Negative for abdominal discomfort, blood in stools or black stools or change in bowel habits. : No history of dysuria, frequency or incontinence. Musculoskeletal: Right leg pain status post fracture- persistent. Skin: Negative for lesions, rash and itching. Hematology/Lymphology: Negative for prolonged bleeding, bruising easily or swollen nodes. Neuro: No history of headaches, syncope, paralysis, seizures or tremors. PHYSICAL EXAM: Vitals: BP 138/54 Pulse 65 Temp 36.1 C (97 F) (Temporal) Resp 16 Ht 175.3 cm (5' 9.02 ) Wt 88.8 kg (195 lb 12.8 oz) SpO2 100% BMI 28.90 kg/m ECOG 0 Exam limited to gross visualization where appropriate due to COVID-19. Gen.: This is an age-appropriate patient in no acute distress. Head: Appears atraumatic with no visible lesions. Eyes: Pupils equally round and reactive to light, extraocular muscles are intact. Neck: Supple. Mouth: Mucous membranes appeared to be moist. Respiratory: Appears to be respiring comfortably. Neurologic: Nonfocal to gross visualization. Alert and oriented 3. Psychiatric: No evidence of inappropriate anxiety or depression. Skin: Visible areas of skin without rash, lesions, wounds or petechiae. PATHOLOGY: 05/07/2020 Prostate biopsy ([facility]) FINAL DIAGNOSIS 1. Prostate, left base, core biopsy (A): Benign prostatic tissue 2. Prostate, left mid, core biopsy (B): Focal high-grade prostatic intraepithelial neoplasia (PIN) 3. Prostate, left apex, core biopsy (C): Benign prostatic tissue 4. Prostate, right base, core biopsy (D): Benign prostatic tissue 5. Prostate, right mid, core biopsy (E): Benign prostatic tissue 6. Prostate, right apex, core biopsy (F): Benign prostatic tissue 7. Prostate, T1 right mid posterolateral (PIRADS-4), core biopsy (G): Benign prostatic tissue with patchy atrophy and chronic inflammation RADIOLOGY/OTHER STUDIES: 03/02/2020 Prostate MRI IMPRESSION: Enlarged prostate with BPH. 0.5 cm PI-RADS 4 lesion in the RIGHT mid posterolateral peripheral zone. No pelvic lymphadenopathy or osseous lesions suspicious for metastases. 08/18/2019 - Bone survey at [facility] Conclusion: Scattered lytic lesions, stable in number and size from prior exams. 05/06/2018 - Bone Survey at [facility] Scattered lytic lesions, stable in both number and size from the prior exam. LABORATORY DATA: Hemoglobin (g/dL) Date Value 03/21/2022 13.2 09/27/2021 13.4 Hematocrit (%) Date Value 03/21/2022 37.7 09/27/2021 38.0 WBC (k/uL) Date Value 03/21/2022 5.62 09/27/2021 5.92 Platelet Count (k/uL) Date Value 03/21/2022 160 09/27/2021 189 03/14/2022 PSA 5.4, 19.1% free 12/10/2020 PSA 4.94, 35% free ASSESSMENT/PLAN: 1. 203.00 Multiple myeloma (primary diagnosis) IgG kappa multiple myeloma initially diagnosed November 2002. At the time of diagnosis the patient had minimal disease, was asymptomatic, and observation was recommended. Disease progression in August of 2009. The patient received first line therapy with lenalidomide and Decadron given August 2009 through March 2010 which led to a partial response. Maintenance treatment with low-dose lenalidomide given August 2010 through October 2010, stopped due to adverse effects. The patient subsequently was observed. Disease progression August 2019. Treatment resumed with low dose Revlimid 10 mg daily, 3 weeks on and one-week off plus Decadron 4 mg weekly on 09/15/2019. The patient's paraprotein subsequently improved significantly. By November 2020 the patient developed musculoskeletal cramps which he attributed to the Revlimid, and he elected to stop the Revlimid after 12/05/2020. Labs obtained 03/08/2021 showed his M spike increased, and the patient resumed treatment with Revlimid 5 mg daily 21 days on and 7 days off plus Decadron 8 mg weekly as of February 2021. Currently the patient is clinically stable and his labs are slowly improving. At this time the patient will continue as is with his current treatment. I will see him back in 12 weeks for follow-up. 2. 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 Currently he is on Aredia 30 mg IV every 6 months and remains stable. The patient will receive his next Aredia May 2022. 3. 250.00 Diabetes mellitus Continue management per PCP. 4. V12.79 H/O ulcerative colitis Status post total colectomy 1990. No recurrent symptoms. 5. Spinal stenosis secondary to degenerative disc disease. Stable status post surgery (Dr. Harper) 01/26/2015. Continue follow-up with PCP/neurosurgery as indicated. 7. Elevated PSA and abnormal prostate MRI 03/02/2020 Elevated PSA February 2020. MRI prostate 03/02/2020 revealed a small PI-RADS 4 lesion in the right posterolateral zone. Prostate core biopsy 05/07/2020 consistent with focal high-grade prostatic intraepithelial neoplasia (PIN). Follow-up PSA 12/10/2020 4.94 with 35% free. Most recent PSA 03/14/2022 up slightly at 5.4 with 19% free. The patient is aware that there is an approximately 20% chance he has underlying malignancy. For now we will monitor with repeat labs every 6 months. Consider repeat prostate MRI if the PSA worsen significantly. Uriel Gunter MD documented in this encounter [facility] 02-24-2022 Miscellaneous Notes Signed. documented in this encounter [facility] 01-24-2022 History of Presen t illness Narrative PATIENT NAME: Zach Manuel DATE: 01/24/2022 PRIMARY CARE PHYSICIAN: Dr. Hanna Mathias OTHER PHYSICIANS: Dr. Lewis, Dr. Martinez Portions of this encounter note have been copied from the note from 11/28/2021 and has been updated where appropriate, and reflect my current medical decision making from today. CC: This is a 76 year old male with a history of multiple myeloma, seen for scheduled follow-up. INTERIM HISTORY: Since the patient's last visit here he has had no significant medical changes. He remains on Revlimid 5 mg daily 3 weeks on 1 week off plus Decadron 8 mg weekly. He is tolerating this treatment well. Currently the patient denies any unusual pain. No fevers, night sweats or weight loss. MEDICATIONS: lenalidomide (REVLIMID) 5 mg capsule Take 1 capsule by mouth daily for 21 days on and 7 days off. DEXILANT 60 mg CpDM Take 1 capsule by mouth once daily. liothyronine (CYTOMEL) 5 mcg tablet metroNIDAZOLE (FLAGYL) 500 mg tablet vancomycin (VANCOCIN) 250 mg capsule glyBURIDE micronized (GLYNASE) 3 mg tablet pioglitazone (ACTOS) 30 mg tablet dexAMETHasone (DECADRON) 4 mg tablet TAKE 2 TABLETS BY MOUTH ONCE A WEEK tobramycin-dexamethasone (TOBRADEX) ophthalmic suspension INSTILL 2 DROPS INTO AFFECTED EYE 4 TIMES DAILY uqfpvcyn-jzvmxcvyt-clroiofxoknpy e (CORTISPORIN) otic solution INSTILL 3 4 DROPS IN AFFECTED EAR FOUR TIMES DAILY pantoprazole DR (PROTONIX) 40 mg tablet Take 40 mg by mouth once daily. BREO ELLIPTA 100-25 mcg/dose inhaler 1 Inhalation once daily. fenofibrate nanocrystallized (TRICOR) 145 mg tablet Take 145 mg by mouth once daily. oxyCODONE IR (ROXICODONE) 10 mg tab 10 mg as needed. levothyroxine (SYNTHROID) 50 mcg tablet Take 50 mcg by mouth once daily. MELOXICAM 15 mg tablet Take 15 mg by mouth as needed. GLUCOPHAGE 500 MG TAB Take 1,000 mg by mouth daily with breakfast. ALLERGIES: Azithromycin, Erthromycin [Erythromycin], Sulfa (Sulfonamide Antibiotics), and Tobramycin PAST MEDICAL HISTORY: PAST MEDICAL HISTORY Diagnosis Date Diabetes mellitus (HCC) Hyperlipidemia Monoclonal gammopathy 11/2002 IgG [place] Multiple myeloma (HCC) 2003 Ulcerative colitis (HCC) PAST SURGICAL HISTORY: PAST SURGICAL HISTORY Procedure Laterality Date CHOLECYSTECTOMY HX 1993 open surgery HERNIA REPAIR HX 2009 left inguinal hernia with mesh, excision of cord lipoma, excision of scrotal cyst PAST SURGICAL HISTORY OF 1990 Total Colectomy; IPAA; 2 stage PAST SURGICAL HISTORY OF 1974 removed disc/spinal fusions PAST SURGICAL HISTORY OF 2010 back surgery PAST SURGICAL HISTORY OF 01/26/2015 back surgery REVIEW OF SYSTEMS: General: No weight loss, malaise or fevers. HEENT: Negative for frequent or significant headaches. No changes in hearing or vision, no nose bleeds or other nasal problems. Respiratory: Negative for cough, wheezing or shortness of breath. Cardiovascular: Negative for chest pain, leg swelling or palpitations. GI: Negative for abdominal discomfort, blood in stools or black stools or change in bowel habits. : No history of dysuria, frequency or incontinence. Musculoskeletal: Right leg pain status post fracture- persistent. Skin: Negative for lesions, rash and itching. Hematology/Lymphology: Negative for prolonged bleeding, bruising easily or swollen nodes. Neuro: No history of headaches, syncope, paralysis, seizures or tremors. PHYSICAL EXAM: Vitals: BP 136/50 Pulse 64 Temp 36.7 C (98 F) (Temporal) Resp 18 Ht 175.3 cm (5' 9.02 ) Wt 88.9 kg (196 lb) SpO2 98% BMI 28.93 kg/m ECOG 0 Exam limited to gross visualization where appropriate due to COVID-19. Gen.: This is an age-appropriate patient in no acute distress. Head: Appears atraumatic with no visible lesions. Eyes: Pupils equally round and reactive to light, extraocular muscles are intact. Neck: Supple. Mouth: Mucous membranes appeared to be moist. Respiratory: Appears to be respiring comfortably. Neurologic: Nonfocal to gross visualization. Alert and oriented 3. Psychiatric: No evidence of inappropriate anxiety or depression. Skin: Visible areas of skin without rash, lesions, wounds or petechiae. PATHOLOGY: 05/07/2020 Prostate biopsy ([facility]) FINAL DIAGNOSIS 1. Prostate, left base, core biopsy (A): Benign prostatic tissue 2. Prostate, left mid, core biopsy (B): Focal high-grade prostatic intraepithelial neoplasia (PIN) 3. Prostate, left apex, core biopsy (C): Benign prostatic tissue 4. Prostate, right base, core biopsy (D): Benign prostatic tissue 5. Prostate, right mid, core biopsy (E): Benign prostatic tissue 6. Prostate, right apex, core biopsy (F): Benign prostatic tissue 7. Prostate, T1 right mid posterolateral (PIRADS-4), core biopsy (G): Benign prostatic tissue with patchy atrophy and chronic inflammation RADIOLOGY/OTHER STUDIES: 08/18/2019 - Bone survey at [facility] Conclusion: Scattered lytic lesions, stable in number and size from prior exams. 05/06/2018 - Bone Survey at [facility] Scattered lytic lesions, stable in both number and size from the prior exam. LABORATORY DATA: Hemoglobin (g/dL) Date Value 01/24/2022 11.9 09/27/2021 13.4 Hematocrit (%) Date Value 01/24/2022 34.7 09/27/2021 38.0 WBC (k/uL) Date Value 01/24/2022 5.31 09/27/2021 5.92 Platelet Count (k/uL) Date Value 01/24/2022 171 09/27/2021 189 ASSESSMENT/PLAN: .00 Multiple myeloma (primary diagnosis) IgG kappa multiple myeloma initially diagnosed November 2002. At the time of diagnosis the patient had minimal disease, was asymptomatic, and observation was recommended. Disease progression in August of 2009. The patient received first line therapy with lenalidomide and Decadron given August 2009 through March 2010 which led to a partial response. Maintenance treatment with low-dose lenalidomide given August 2010 through October 2010, stopped due to adverse effects. The patient subsequently was observed. Disease progression August 2019. Treatment resumed with low dose Revlimid 10 mg daily, 3 weeks on and one-week off plus Decadron 4 mg weekly on 09/15/2019. The patient's paraprotein subsequently improved significantly. By November 2020 the patient developed musculoskeletal cramps which he attributed to the Revlimid, and he elected to stop the Revlimid after 12/05/2020. Labs obtained 03/08/2021 showed his M spike increased, and the patient resumed treatment with Revlimid 5 mg daily 21 days on and 7 days off plus Decadron 8 mg weekly as of February 2021. Currently the patient is clinically stable and his labs are slowly improving.. At this time the patient will continue as is with his current treatment. I will see him back in 8 weeks for follow-up. 2. 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 Currently he is on Aredia 30 mg IV every 6 months and remains stable. The patient will receive his next Aredia May 2022. 3. 250.00 Diabetes mellitus Continue management per PCP. 4. V12.79 H/O ulcerative colitis Status post total colectomy 1990. No recurrent symptoms. 5. Spinal stenosis secondary to degenerative disc disease. Stable status post surgery (Dr. Harper) 01/26/2015. Continue follow-up with PCP/neurosurgery as indicated. 7. Elevated PSA and abnormal prostate MRI 03/02/2020 Prostate, left mid, core biopsy 05/07/2020 consistent with focal high-grade prostatic intraepithelial neoplasia (PIN). Continue management per urology. 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 Type 2 diabetes mellitus without complication, with long-term current use of insulin (HCC) H/O ulcerative colitis Personal history of other diseases of digestive system [facility] Multiple myeloma not having achieved remission (HCC)- Primary Multiple myeloma, without mention of having achieved remission 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 Type 2 diabetes mellitus without complication, with long-term current use of insulin (HCC) H/O ulcerative colitis Personal history of other diseases of digestive system Elevated prostate specific antigen (PSA) [facility] Multiple myeloma not having achieved remission (HCC)- Primary Multiple myeloma, without mention of having achieved remission [facility] Multiple myeloma, remission status unspecified (HCC)- Primary [facility] Diagnosis Multiple myeloma not having achieved remission (HCC)- Primary Multiple myeloma, without mention of having achieved remission 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 Type 2 diabetes mellitus without complication, with long-term current use of insulin (HCC) Elevated prostate specific antigen (PSA) [facility] Paget disease of bone- Primary 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 [facility] Multiple myeloma not having achieved remission (HCC)- Primary Multiple myeloma, without mention of having achieved remission 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 Type 2 diabetes mellitus without complication, with long-term current use of insulin (HCC) Elevated prostate specific antigen (PSA) H/O ulcerative colitis Personal history of other diseases of digestive system [facility] Multiple myeloma not having achieved remission (HCC)- Primary Multiple myeloma, without mention of having achieved remission [facility] Diagnosis Multiple myeloma not having achieved remission (HCC)- Primary Multiple myeloma, without mention of having achieved remission 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 Type 2 diabetes mellitus without complication, with long-term current use of insulin (HCC) Elevated prostate specific antigen (PSA) [facility] Diagnosis Multiple myeloma not having achieved remission (HCC)- Primary Multiple myeloma, without mention of having achieved remission [facility] Diagnosis Multiple myeloma not having achieved remission (HCC)- Primary Multiple myeloma, without mention of having achieved remission Stage 3b chronic kidney disease (HCC) Type 2 diabetes mellitus without complication, with long-term current use of insulin (HCC) 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 H/O ulcerative colitis Personal history of other diseases of digestive system [facility] Diagnosis Multiple myeloma, remission status unspecified (HCC)- Primary [facility] Diagnosis Multiple myeloma not having achieved remission (HCC)- Primary Multiple myeloma, without mention of having achieved remission 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 Stage 3b chronic kidney disease (HCC) Type 2 diabetes mellitus without complication, with long-term current use of insulin (HCC) H/O ulcerative colitis Personal history of other diseases of digestive system Elevated prostate specific antigen (PSA) [facility] Diagnosis Multiple myeloma not having achieved remission (HCC)- Primary Multiple myeloma, without mention of having achieved remission 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 Type 2 diabetes mellitus without complication, with long-term current use of insulin (HCC) H/O ulcerative colitis Personal history of other diseases of digestive system Elevated prostate specific antigen (PSA) Stage 3b chronic kidney disease (HCC) [facility] Multiple myeloma not having achieved remission (HCC)- Primary Multiple myeloma, without mention of having achieved remission 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 [facility] Multiple myeloma not having achieved remission (HCC)- Primary Multiple myeloma, without mention of having achieved remission 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 Type 2 diabetes mellitus without complication, with long-term current use of insulin (HCC) H/O ulcerative colitis Personal history of other diseases of digestive system Stage 3 chronic kidney disease, unspecified whether stage 3a or 3b CKD (HCC) Elevated prostate specific antigen (PSA) documented in this encounter [facility] Summary Purpose Family History No Family History Records FoundNo Family History Records FoundNo Family History Records FoundNo Family History Records FoundNo Family History Records Found Advance Directives No Advanced Directives Records FoundNo Advanced Directives Records FoundNo Advanced Directives Records FoundNo Advanced Directives Records FoundNo Advanced Directives Records Found Hospital Course Note MR#: [id number] [facility] Pt. Name: Zach Manuel Admitted: 07/13/2018 Discharged: 07/16/2018 Date of : 1945 Physician: Francis Savage MD DISCHARGE SUMMARY ADMISSION DIAGNOSES: 1. Mechanical fall. 2. Right hip fracture. 3. Diabetes. 4. Multiple myeloma. 5. Anemia. DISCHARGE DIAGNOSES: 1. Right hip fracture, status post open reduction and internal fixation. 2. Diabetes. 3. Anemia. 4. Multiple myeloma. 5. Paget disease. 6. Ulcerative colitis, status post colectomy. HISTORY OF PRESENT ILLNESS AND COURSE OF HOSPITALIZATION: This is a 73-year-old male with the medical problems listed above, presented to us because of mechanical fall that is complicated with the right hip fracture. The patient went to the OR and he had his surgery done and he was progressing well without any complication. The patient will be discharged to senior care facility. CONSULTATION DURING ADMISSION: Orthopedics. PROCEDURE DURING ADMISSION: Open reduction and internal f (more content not included)... Medications Administered Section Inactive Administered Medications - up to 3 most recent administrations Medication Order MAR Action Action Date Dose Rate Site pamidronate 30 mg in NaCl 0.9% 250 mL (AREDIA) 30 mg, INTRAVENOUS, at 250 mL/hr, Administer over 1 Hours, ONCE, 1 dose, On Sun06/20/22 at 1330, APPROXIMATE TOTAL VOLUME_285mL - 24 HOUR EXP:1340 06/21/22 Hazardous Potential Reproductive Risk Drug: Use appropriate PPE. New Bag/Syringe/Bottle 06/20/2022 2:14 PM EDT 30 mg 250 mL/hr Inactive Administered Medications - up to 3 most recent administrations Medication Order MAR Action Action Date Dose Rate Site pamidronate 30 mg in NaCl 0.9% 250 mL (AREDIA) 30 mg, INTRAVENOUS, at 285 mL/hr, Administer over 1 Hours, ONCE, 1 dose, On Sun12/05/22 at 1400, APPROXIMATE TOTAL VOLUME_285mL - 24 HOUR EXP:12/06/2022@1355 Hazardous Potential Reproductive Risk Drug: Use appropriate PPE. New Bag/Syringe/Bottle 12/05/2022 2:13 PM EDT 30 mg 285 mL/hr Inactive Administered Medications - up to 3 most recent administrations Medication Order MAR Action Action Date Dose Rate Site pamidronate 30 mg in NaCl 0.9% 250 mL (AREDIA) 30 mg, INTRAVENOUS, at 250 mL/hr, Administer over 1 Hours, ONCE, 1 dose, On Sun08/28/23 at 1400, APPROXIMATE TOTAL VOLUME_285mL - 24 HOUR EXP:08/29/23 1345 Hazardous Potential Reproductive Risk Drug: Use appropriate PPE. New Bag/Syringe/Bottle 08/28/2023 2:04 PM EST 30 mg 250 mL/hr Reason for Referral Specialty Diagnoses / Procedures Referred By Contac t Referred To Contact Aiden Hatfield MD [address] [place], [place] [id number] Referral ID Status Reason Start Date Expiration Date V isits Requested Visits Authorized [id number] Authorized 06/24/2022 09/23/2023 1 1 Additional Source Comments (unrecognized sect ion and content) No Status Records FoundNo Status Records FoundNo Status Records FoundNo Status Records FoundNo Status Records Found INFORMATION SOURCE (unrecogn ized section and content) DATE CREATED AUTHOR 06/06/2019 [facility] DATE CREATED AUTHOR AUTHOR'S ORGANIZ ATION 11/17/2021 [facility] DATE CREATED AUTHOR AUTHOR'S ORGANIZ ATION 12/27/[address] [facility] DATE CREATED AUTHOR AUTHOR'S ORGANIZ ATION 09/02/2022 [facility] DATE CREATED AUTHOR AUTHOR'S ORGANIZ ATION 03/01/2024 [facility] Source Comments (unrecognize d section and content) In the event this informatio n is protected by the Federal Confidentiality of Alcohol and Drug Abuse Patient Records regulations: The Federal rules restrict any use of the information to criminally investigate or prosecute any alcohol or drug abuse patient.[facility] the event this information is protected by the Federal Confidentiality of Alcohol and Drug Abuse Patient Records regulations: The Federal rules restrict any use of the information to criminally investigate or prosecute any alcohol or drug abuse patient.[facility] the event this information is protected by the Federal Confidentiality of Alcohol and Drug Abuse Patient Records regulations: The Federal rules restrict any use of the information to criminally investigate or prosecute any alcohol or drug abuse patient.[facility] Center[facility] the event this information is protected by the Federal Confidentiality of Alcohol and Drug Abuse Patient Records regulations: The Federal rules restrict any use of the information to criminally investigate or prosecute any alcohol or drug abuse patient.[facility] Center[facility] the event this information is protected by the Federal Confidentiality of Alcohol and Drug Abuse Patient Records regulations: The Federal rules restrict any use of the information to criminally investigate or prosecute any alcohol or drug abuse patient.[facility] CenterIn the event this information is protected by the Federal Confidentiality of Alcohol and Drug Abuse Patient Records regulations: The Federal rules restrict any use of the information to criminally investigate or prosecute any alcohol or drug abuse patient.[facility] CenterIn the event this information is protected by the Federal Confidentiality of Alcohol and Drug Abuse Patient Records regulations: The Federal rules restrict any use of the information to criminally investigate or prosecute any alcohol or drug abuse patient.[facility] CenterIn the event this information is protected by the Federal Confidentiality of Alcohol and Drug Abuse Patient Records regulations: The Federal rules restrict any use of the information to criminally investigate or prosecute any alcohol or drug abuse patient.[facility] CenterIn the event this information is protected by the Federal Confidentiality of Alcohol and Drug Abuse Patient Records regulations: The Federal rules restrict any use of the information to criminally investigate or prosecute any alcohol or drug abuse patient.[facility] CenterIn the event this information is protected by the Federal Confidentiality of Alcohol and Drug Abuse Patient Records regulations: The Federal rules restrict any use of the information to criminally investigate or prosecute any alcohol or drug abuse patient.[facility] CenterIn the event this information is protected by the Federal Confidentiality of Alcohol and Drug Abuse Patient Records regulations: The Federal rules restrict any use of the information to criminally investigate or prosecute any alcohol or drug abuse patient.[facility] CenterIn the event this information is protected by the Federal Confidentiality of Alcohol and Drug Abuse Patient Records regulations: The Federal rules restrict any use of the information to criminally investigate or prosecute any alcohol or drug abuse patient.[facility] CenterIn the event this information is protected by the Federal Confidentiality of Alcohol and Drug Abuse Patient Records regulations: The Federal rules restrict any use of the information to criminally investigate or prosecute any alcohol or drug abuse patient.[facility] CenterIn the event this information is protected by the Federal Confidentiality of Alcohol and Drug Abuse Patient Records regulations: The Federal rules restrict any use of the information to criminally investigate or prosecute any alcohol or drug abuse patient.[facility] CenterIn the event this information is protected by the Federal Confidentiality of Alcohol and Drug Abuse Patient Records regulations: The Federal rules restrict any use of the information to criminally investigate or prosecute any alcohol or drug abuse patient.[facility] CenterIn the event this information is protected by the Federal Confidentiality of Alcohol and Drug Abuse Patient Records regulations: The Federal rules restrict any use of the information to criminally investigate or prosecute any alcohol or drug abuse patient.[facility] CenterIn the event this information is protected by the Federal Confidentiality of Alcohol and Drug Abuse Patient Records regulations: The Federal rules restrict any use of the information to criminally investigate or prosecute any alcohol or drug abuse patient.[facility] CenterIn the event this information is protected by the Federal Confidentiality of Alcohol and Drug Abuse Patient Records regulations: The Federal rules restrict any use of the information to criminally investigate or prosecute any alcohol or drug abuse patient.[facility] CenterIn the event this information is protected by the Federal Confidentiality of Alcohol and Drug Abuse Patient Records regulations: The Federal rules restrict any use of the information to criminally investigate or prosecute any alcohol or drug abuse patient.[facility] CenterIn the event this information is protected by the Federal Confidentiality of Alcohol and Drug Abuse Patient Records regulations: The Federal rules restrict any use of the information to criminally investigate or prosecute any alcohol or drug abuse patient.[facility] CenterIn the event this information is protected by the Federal Confidentiality of Alcohol and Drug Abuse Patient Records regulations: The Federal rules restrict any use of the information to criminally investigate or prosecute any alcohol or drug abuse patient.[facility] CenterIn the event this information is protected by the Federal Confidentiality of Alcohol and Drug Abuse Patient Records regulations: The Federal rules restrict any use of the information to criminally investigate or prosecute any alcohol or drug abuse patient.[facility] CenterIn the event this information is protected by the Federal Confidentiality of Alcohol and Drug Abuse Patient Records regulations: The Federal rules restrict any use of the information to criminally investigate or prosecute any alcohol or drug abuse patient.[facility] CenterIn the event this information is protected by the Federal Confidentiality of Alcohol and Drug Abuse Patient Records regulations: The Federal rules restrict any use of the information to criminally investigate or prosecute any alcohol or drug abuse patient.[facility] CenterIn the event this information is protected by the Federal Confidentiality of Alcohol and Drug Abuse Patient Records regulations: The Federal rules restrict any use of the information to criminally investigate or prosecute any alcohol or drug abuse patient.[facility] CenterIn the event this information is protected by the Federal Confidentiality of Alcohol and Drug Abuse Patient Records regulations: The Federal rules restrict any use of the information to criminally investigate or prosecute any alcohol or drug abuse patient.[facility] the event this information is protected by the Federal Confidentiality of Alcohol and Drug Abuse Patient Records regulations: The Federal rules restrict any use of the information to criminally investigate or prosecute any alcohol or drug abuse patient.[facility] CenterIn the event this information is protected by the Federal Confidentiality of Alcohol and Drug Abuse Patient Records regulations: The Federal rules restrict any use of the information to criminally investigate or prosecute any alcohol or drug abuse patient.[facility] CenterIn the event this information is protected by the Federal Confidentiality of Alcohol and Drug Abuse Patient Records regulations: The Federal rules restrict any use of the information to criminally investigate or prosecute any alcohol or drug abuse patient.[facility] CenterIn the event this information is protected by the Federal Confidentiality of Alcohol and Drug Abuse Patient Records regulations: The Federal rules restrict any use of the information to criminally investigate or prosecute any alcohol or drug abuse patient.[facility] CenterIn the event this information is protected by the Federal Confidentiality of Alcohol and Drug Abuse Patient Records regulations: The Federal rules restrict any use of the information to criminally investigate or prosecute any alcohol or drug abuse patient.[facility] CenterIn the event this information is protected by the Federal Confidentiality of Alcohol and Drug Abuse Patient Records regulations: The Federal rules restrict any use of the information to criminally investigate or prosecute any alcohol or drug abuse patient.[facility] CenterIn the event this information is protected by the Federal Confidentiality of Alcohol and Drug Abuse Patient Records regulations: The Federal rules restrict any use of the information to criminally investigate or prosecute any alcohol or drug abuse patient.[facility] CenterIn the event this information is protected by the Federal Confidentiality of Alcohol and Drug Abuse Patient Records regulations: The Federal rules restrict any use of the information to criminally investigate or prosecute any alcohol or drug abuse patient.[facility] CenterIn the event this information is protected by the Federal Confidentiality of Alcohol and Drug Abuse Patient Records regulations: The Federal rules restrict any use of the information to criminally investigate or prosecute any alcohol or drug abuse patient.[facility] CenterIn the event this information is protected by the Federal Confidentiality of Alcohol and Drug Abuse Patient Records regulations: The Federal rules restrict any use of the information to criminally investigate or prosecute any alcohol or drug abuse patient.[facility] CenterIn the event this information is protected by the Federal Confidentiality of Alcohol and Drug Abuse Patient Records regulations: The Federal rules restrict any use of the information to criminally investigate or prosecute any alcohol or drug abuse patient.[facility] CenterIn the event this information is protected by the Federal Confidentiality of Alcohol and Drug Abuse Patient Records regulations: The Federal rules restrict any use of the information to criminally investigate or prosecute any alcohol or drug abuse patient.[facility] CenterIn the event this information is protected by the Federal Confidentiality of Alcohol and Drug Abuse Patient Records regulations: The Federal rules restrict any use of the information to criminally investigate or prosecute any alcohol or drug abuse patient.[facility] CenterIn the event this information is protected by the Federal Confidentiality of Alcohol and Drug Abuse Patient Records regulations: The Federal rules restrict any use of the information to criminally investigate or prosecute any alcohol or drug abuse patient.[facility] CenterIn the event this information is protected by the Federal Confidentiality of Alcohol and Drug Abuse Patient Records regulations: The Federal rules restrict any use of the information to criminally investigate or prosecute any alcohol or drug abuse patient.[facility] CenterIn the event this information is protected by the Federal Confidentiality of Alcohol and Drug Abuse Patient Records regulations: The Federal rules restrict any use of the information to criminally investigate or prosecute any alcohol or drug abuse patient.[facility] CenterIn the event this information is protected by the Federal Confidentiality of Alcohol and Drug Abuse Patient Records regulations: The Federal rules restrict any use of the information to criminally investigate or prosecute any alcohol or drug abuse patient.[facility] CenterIn the event this information is protected by the Federal Confidentiality of Alcohol and Drug Abuse Patient Records regulations: The Federal rules restrict any use of the information to criminally investigate or prosecute any alcohol or drug abuse patient.[facility] CenterIn the event this information is protected by the Federal Confidentiality of Alcohol and Drug Abuse Patient Records regulations: The Federal rules restrict any use of the information to criminally investigate or prosecute any alcohol or drug abuse patient.[facility] CenterIn the event this information is protected by the Federal Confidentiality of Alcohol and Drug Abuse Patient Records regulations: The Federal rules restrict any use of the information to criminally investigate or prosecute any alcohol or drug abuse patient.[facility] Reason for Visit (unrecogniz ed section and content) Reason Onset Date Comments Refill Request 01/02/2022 Reason Comments Multiple Myeloma Reason Onset Date Comments Refill Request 01/30/2022 Reason Onset Date Comments Refill Request 02/24/2022 Reason Comments Multiple Myeloma follow up Reason Comments Results Reason Onset Date Comments Refill Request 2022 [email or web address] Reason Comments Med Aide - Other [facility] gran obtained Reason Onset Date Comments Refill Request 04/20/2022 Reason Onset Date Comments Refill Request 05/19/2022 Reason Comments Lab Orders Reason Onset Date Comments Refill Request 06/16/2022 Specialty Diagnoses / Procedures Referred By Richy berger Referred To Contact Diagnoses Multiple myeloma, remission status unspecified (HCC) Uriel Gunter MD [address] [place] [address] [place] [address] [facility] [place] [place] [address] Referral ID Status Reason Start Date Expiration Date V isits Requested Visits Authorized [id number] Authorized 12/10/2020 03/10/2021 99 99 Reason Comments Care Coordination Calcium Reason Onset Date Comments Refill Request 08/11/2022 Reason Comments Multiple Myeloma Follow up Reason Onset Date Comments Refill Request 09/21/2022 Reason Onset Date Comments Refill Request 10/16/2022 Reason Onset Date Comments Refill Request 11/16/2022 Reason Comments Multiple Myeloma Treatment visit Reason Onset Date Comments Refill Request 12/19/2022 Reason Onset Date Comments Refill Request 12/28/2022 Reason Onset Date Comments Refill Request 02/05/2023 Reason Onset Date Comments Refill Request 04/18/2023 Reason Onset Date Comments Refill Request 07/18/2023 Reason Onset Date Comments Refill Request 08/20/2023 Reason Onset Date Comments Refill Request 11/15/2023 Reason Onset Date Comments Refill Request 12/10/2023 Reason Onset Date Comments Refill Request 01/08/2024 Reason Onset Date Comments Refill Request 01/28/2024 Reason Onset Date Comments Refill Request 02/06/2024 revlimid Specialty Diagnoses / Procedures Referred By Contac t Referred To Contact Diagnoses Multiple myeloma not having achieved remission (HCC) Paget disease of bone Uriel Gunter MD [address] [place] [address] [place] [address] [facility] [place] [address] [place] [address] Referral ID Status Reason Start Date Expiration Date V isits Requested Visits Authorized [id number] Authorized 02/26/2024 05/26/2024 99 99 Reason Comments Care Coordination Labs Reason Onset Date Comments Refill Request 03/06/2024 Reason Onset Date Comments Refill Request 04/08/2024 Care Teams (unrecognized sec tion and content) Video Tape Duplicator Relationship Specialty Start Date End Date Hanna Mathias MD [address] [id number] PCP - General 01/27/03 Video Tape Duplicator Relationship Specialty Start Date End Date Hanna Mathias MD [address] [id number] PCP - General 01/27/03 Video Tape Duplicator Relationship Specialty Start Date End Date Hanna Mathias MD [address] [id number] PCP - General 01/27/03 Video Tape Duplicator Relationship Specialty Start Date End Date Hanna Mathias MD [address] [id number] PCP - General 01/27/03 Video Tape Duplicator Relationship Specialty Start Date End Date Hanna Mathias MD [address] [facility] [place] [address] PCP - General 01/27/03 Video Tape Duplicator Relationship Specialty Start Date End Date Hanna Mathias MD [address] [facility] [place] [address] PCP - General 01/27/03 Video Tape Duplicator Relationship Specialty Start Date End Date Hanna Mathias MD [address] [facility] [place] [address] PCP - General 01/27/03 Video Tape Duplicator Relationship Specialty Start Date End Date Hanna Mathias MD [address] [facility] [place] [address] PCP - General 01/27/03 Video Tape Duplicator Relationship Specialty Start Date End Date Hanna Mathias MD [address] [facility] [place] [address] PCP - General 01/27/03 Video Tape Duplicator Relationship Specialty Start Date End Date Hanna Mathias MD [address] [facility] [place] [address] PCP - General 01/27/03 Video Tape Duplicator Relationship Specialty Start Date End Date Hanna Mathias MD [address] [facility] [place] [address] PCP - General 01/27/03 Video Tape Duplicator Relationship Specialty Start Date End Date Hanna Mathias MD [address] [facility] [place] [address] PCP - General 01/27/03 Video Tape Duplicator Relationship Specialty Start Date End Date Hanna Mathias MD [address] [facility] [place] [address] PCP - General 01/27/03 Video Tape Duplicator Relationship Specialty Start Date End Date Hanna Mathias MD [address] [facility] [place] [address] PCP - General 01/27/03 Video Tape Duplicator Relationship Specialty Start Date End Date Hanna Mathias MD [address] [facility] [place] [address] PCP - General 01/27/03 Video Tape Duplicator Relationship Specialty Start Date End Date Hanna Mathias MD [address] [facility] [place] [address] PCP - General 01/27/03 Video Tape Duplicator Relationship Specialty Start Date End Date Hanna Mathias MD [address] [facility] [place] [address] PCP - General 01/27/03 Video Tape Duplicator Relationship Specialty Start Date End Date Hanna Mathias MD [address] [facility] [place] [address] PCP - General 01/27/03 Video Tape Duplicator Relationship Specialty Start Date End Date Hanna Mathias MD [address] [facility] [place] [address] PCP - General 01/27/03 Video Tape Duplicator Relationship Specialty Start Date End Date Hanna Mathias MD [address] [facility] [place] [address] PCP - General 01/27/03 Video Tape Duplicator Relationship Specialty Start Date End Date Hanna Mathias MD [address] [facility] [place] [address] PCP - General 01/27/03 Video Tape Duplicator Relationship Specialty Start Date End Date Hanna Mathias MD [address] [facility] [place] [address] PCP - General 01/27/03 Video Tape Duplicator Relationship Specialty Start Date End Date Hanna Mathias MD [address] [facility] [place] [address] PCP - General 01/27/03 Video Tape Duplicator Relationship Specialty Start Date End Date Hanna Mathias MD [address] [place] [address] PCP - General 01/27/03 Video Tape Duplicator Relationship Specialty Start Date End Date Hanna Mathias MD [address] [place] [address] PCP - General 01/27/03 Video Tape Duplicator Relationship Specialty Start Date End Date Hanna Mathias MD [address] [place] [address] PCP - General 01/27/03 Video Tape Duplicator Relationship Specialty Start Date End Date Hanna Mathias MD [address] [place] [address] PCP - General 01/27/03 Video Tape Duplicator Relationship Specialty Start Date End Date Hanna Mathias MD [address] [facility] [place] [address] PCP - General 01/27/03 Video Tape Duplicator Relationship Specialty Start Date End Date Hanna Mathias MD [address] [facility] [place] [address] PCP - General 01/27/03 Video Tape Duplicator Relationship Specialty Start Date End Date Hanna Mathias MD [address] [id number] PCP - General 01/27/03 FOR RECORDS PERTAINING TO PATIENTS WHO ARE OR HAVE BEEN ENROLLED IN A CHEMICAL DEPENDENCY/SUBSTANCEABUSE PROGRAM, SOME INFORMATION MAY BE OMITTED. This clinical summary was aggregated from multiple sources. Caution should be exercised in using it in the provision of clinical care. This summary normalizes information from multiple sources, and as a consequence, information in this document may materially change the coding, format and clinical context of patient data. In addition, data may be omitted in some cases. CLINICAL DECISIONS SHOULD BE BASED ON THE PRIMARY CLINICAL RECORDS. [employer] [facility]. provides no warranty or guarantee of the accuracy or completeness of information in this document.
[2024-04-15 08:21] LABS: Basophils Absolute Auto 0.1 10^3/uL (0.0-0.1); Basophils Percent Auto 2.3 % (0.2-2.0); Eosinophils Absolute Auto 0.3 10^3/uL (0.0-0.7); Hemoglobin 13.2 g/dL (14.0-18.0); Immature Granulocytes Abs Auto 0.02 10^3/uL (0.00-0.03); Immature Granulocytes Pct Auto 0.4 % (0.0-0.5); Lymphocytes Absolute Auto 1.3 10^3/uL (1.2-3.8); Lymphocytes Percent Auto 26.9 % (20.5-60.0); Mean Corpuscular HGB Conc 34.7 g/dL (29.9-35.2); Mean Corpuscular Hemoglobin 36.2 pg (25.9-34.0); Mean Corpuscular Volume 104.1 fL (80.0-94.0); Monocytes Absolute Auto 0.7 10^3/uL (0.3-0.8); Monocytes Percent Auto 14.9 % (1.7-12.0); Neutrophils Absolute Auto 2.3 10^3/uL (1.4-6.5); Neutrophils Percent Auto 49.5 % (43.0-75.0); Platelet Count 195 10^3/uL (150-450); Red Blood Count 3.65 10^6/uL (4.70-6.10); Red Cell Distribution Width 14.4 % (11.0-15.0); White Blood Count 4.7 10^3/uL (4.0-11.0)
[2024-04-15 08:49] LABS: Alanine Aminotransferase 15 U/L (16-63); Albumin Level 3.2 g/dL (3.4-5.0); Alkaline Phosphatase 80 U/L (46-116); Anion Gap 10.2; Aspartate Amino Transferase 12 U/L (15-37); BUN Creatinine Ratio 10.3; Bilirubin Total 0.9 mg/dL (0.2-1.0); Calcium 8.1 mg/dL (8.5-10.1); Chloride 104 mmol/L (98-107); Chol HDL Ratio 2.7; Cholesterol 142 mg/dL (<=200); Estimated GFR (African America 49 (>=60); Estimated GFR (Non-African Ame 41 (>=60); Free T3 2.53 pg/mL (2.18-3.98); Globulin 3.3 g/dL; Glucose 111 mg/dL (74-106); HDL Cholesterol 53 mg/dL (40-60); LDL Cholesterol Calculated 69.4 mg/dL; Potassium 4.2 mmol/L (3.5-5.1); Sodium 140 mmol/L (136-145); Thyroid Stimulating Hormone 2.075 uIU/mL (0.358-3.740); Total Protein 6.5 g/dL (6.4-8.2); Triglycerides 98 mg/dL (<=150); VLDL CHOLESTEROL 19.6 mg/dL
[2024-04-15 09:10] LABS: Estimated Average Glucose 134 mg/dL; Glycohemoglobin A1C 6.3 % (4.5-6.2)
[2024-04-15 09:25] LABS: Prostate Specific Antigen Scrn 4.56 ng/mL (<=4.00)
[2024-04-17 04:07] LABS: PSA, Free 1.15 ng/mL; Prostate Specific Ag 4.5 ng/mL (0.0-4.0)
== END 2024-04-15 07:56 | disposition home or self-care (01) ==
LOC: LAB 07:56
PROVIDERS: PCP Family Medicine; Visit Provider Family Medicine
DX: Z00.00 Encounter for general adult medical examination without abnormal findings (principal); Z12.5 Encounter for screening for malignant neoplasm of prostate; K50.90 Crohn's disease, unspecified, without complications; E78.5 Hyperlipidemia, unspecified; E11.9 Type 2 diabetes mellitus without complications; K21.9 Gastro-esophageal reflux disease without esophagitis; R97.20 Elevated prostate specific antigen [PSA]
CPT/HCPCS: 36415; 80053; 80061; 83036; 84153; 84154; 84436; 84443; 84481; 85025; G0103

== ENCOUNTER 2025-01-31 15:43 | Emergency (ER) | payer MEDICARE, OTHER, SELFPAY ==
--- OUTSIDE RECORDS SUMMARY | 2025-01-31 15:53 | XMS_ITS | CCD ---
Author Organization [facility] Care Team Providers Care Draw Off Worker Name Role Phone HANNA MATHIAS Primary Care Unavailable SELF, REFERRED Referring Unavailable TRISH CEVALLOS Admitting Unavailable FRANCIS SAVAGE Attending Unavailable CT Procedure Practitioner Unavailab DANIELA Pennington Surgeon Unavailable CT Procedure Practitioner Unavailab FRANCIS Cruz Surgeon Unavailable Hanan Mathias MD Primary Care Provider Hanna Mathias [...] [phone] Hanna Mathias MD Primary Care Provider [phone] Hanna Mathias MD Primary Care Provider [phone] Hanna Mathias MD Primary Care Provider [phone] CLAUDIA WILSON Attending Unavailable URIEL GUNTER Referring Unavailable HOY, HANNA M Primary Care Unavailable HOY, HANNA M Primary Care Unavailable URIEL GUNTER Referring Unavailable HOY, HANNA M Primary Care Unavailable HOY, HANNA M Primary Care Unavailable URIEL GUNTER Attending Unavailable URIEL GUNTER Referring Unavailable HOY, HANNA M Primary Care Unavailable HOY, HANNA M Primary Care Unavailable URIEL GUNTER Referring Unavailable URIEL GUNTER Attending Unavailable HOY, HANNA M Primary Care Unavailable HOY, HANNA M Primary Care Unavailable URIEL GUNTER Referring Unavailable HOY, HANNA M Primary Care Unavailable LATRICE HILARIO Attending Unavailable HOY, HANNA M Primary Care Unavailable URIEL GUNTER Referring Unavailable Unavailable Primary Care Provider UnavailHanna Villafuerte MD Primary Care Provider [phone] CARROLY, HANNA M Referring Unavailable MARY ZARATE Attending Unavailable MARY ZARATE Referring Unavailable BERNARDO STAPLETON Admitting Unavailable BERNARDO STAPLETON Attending Unavailable EDGAR JUSTICE Attending Unavailable HOY, HANNA M Primary Care Unavailable BERNARDO STAPLETON Referring Unavailable HOY, HANNA M Primary Care Unavailable BERNARDO STAPLETON Admitting Unavailable BERNARDO STAPLETON Attending Unavailable BERNARDO STAPLETON Referring Unavailable MARY ZARATE Attending Unavailable HOY, HANNA M Primary Care Unavailable Allergies Allergy Classification Reported Allergen(s) Allergy Type Date of Onset Reaction(s) Facility Aminoglycosides (antibiotic) (1 source) Tobramycin Drug Allergy 0 Other: See Comments [facility] Macrolides (antibiotic) (2 sources) Azithromycin Drug Allergy 7 Unknown [facility] Sulfonamides (antibiotic) (1 source) Sulfonamides (Antibiotic) Drug Allergy 2 Unknown [facility] (4 sources) Azithromycin; Translations: [AZITHROMYCIN] Drug Allergy 8 [facility] Rep[facility] (3 sources) Sulfonamides (Antibiotic); Translations: [SULFA (SULFONAMIDE ANTIBIOTICS)] Drug allergy (disorder) 2 [facility] Rep[facility] (20 sources) Azithromycin Drug Allergy 8 Unknown, Other (See Comments) [facility] (20 sources) Erythromycin; Translations: [ERYTHROMYCIN] Drug Allergy 7 Unknown [facility] (20 sources) Sulfonamides (Antibiotic) Drug Allergy 2 Unknown, Other (See Comments) [facility] (20 sources) Tobramycin; Translations: [TOBRAMYCIN] Drug Allergy 0 Other: See Comments, GI Disturbance [facility] (1 source) Erythromycin Drug Allergy [facility] Rep[facility] (2 sources) Neomycin; Translations: [NEOMYCIN] Drug Allergy 5 Other (See Comments) [facility] (2 sources) Pseudoephedrine; Translations: [PSEUDOEPHEDRINE ] Drug Allergy 5 Other (See Comments) [facility] Medications Current Medications Medication Drug Class(es) Dates [...] Comment on above: TAKE 2 TABLETS BY [facility] ONCE A WEEK empagliflozin 10 mg oral tablet (20 sources) Sodium-Glucose Cotransporter 2 Inhibitor Start: 022 take 1 tablet by mouth once daily JARDIANCE 10 mg tablet Take 10 mg by mouth once daily. 08/21/2022 Active Comment on above: Take 10 mg by mouth once daily. fenofibrate 145 mg oral tablet (20 sources) Peroxisome Proliferator Receptor alpha Agonist Start: 018 take 1 tablet by mouth once daily fenofibrate nanocrystallized (TRICOR) 145 mg tablet Take 145 mg by mouth once daily. 10/29/2017 Active Comment on above: Take 145 mg by mouth once daily. 30 actuat fluticasone furoate 0.1 mg/actuat / vilanterol 0.025 mg/actuat dry powder inhaler (20 sources) Corticosteroid, beta2-Adrenergic Agonist Start: 018 BREO ELLIPTA 100-25 mcg/dose inhaler 1 Inhalation once daily. 08/05/2018 Active Comment on above: 1 Inhalation once da mary. glyBURIDE 6 mg oral tablet (20 sources) Sulfonylurea Start: 023 glyBURIDE micronized (GLYNASE) 6 mg tablet 02/15/2023 Active Start: 07-25-2021 glyBURIDE micr onized (GLYNASE) 3 mg tablet lenalidomide 5 mg oral capsule (20 sources) Thalidomide Analog Start: 10-17-2023 End: 12-11-2024 lenalidomide (REVLIMID) 5 mg capsule Take 1 capsule by mouth daily for 21 days on and 7 days off. 21 capsule 12/11/2024 1:22 PM EDT 12/11/2024 Active Start: 06-18-2023 End: 08-20-2023 lenalidomide (REVLIMID) [...] Comment on above: Take 1 capsule by mo [facility] daily for 21 days on and 7 days off. liothyronine sodium 0.005 mg oral tablet (20 sources) l-Triiodothyronin e Start: take 2 tablets by mouth in the morning liothyronine (CYTOMEL) 5 MCG tablet Take 2 tablets (10 mcg total) by mouth in the morning. 07/27/2024 Active Start: 08-12-2021 liothyronine ( CYTOMEL) 5 mcg tablet 08/12/2021 Active meloxicam 15 mg oral tablet (20 sources) Nonsteroidal Anti-inflammatory Drug Start: 07-30-2013 MELOXICAM 15 mg tablet Take 15 mg by mouth as needed. 07/30/2013 Active Comment on above: Take 15 mg by mouth as needed. metFORMIN hydrochloride 500 mg oral tablet (20 sources) Biguanide Start: 10-14-2019 take 2 tablets by mouth once daily at breakfast GLUCOPHAGE 500 MG TAB Take 1,000 mg by mouth daily with breakfast. 0 10/14/2019 Active metFORMIN (GLUCO PHAGE) 500 mg tablet Take 1 tablet (500 mg total) by mouth in the morning and 1 tablet (500 mg total) at noon and 1 tablet (500 mg total) in the evening and 1 tablet (500 mg total) before bedtime. Active Comment on above: Take 1,000 mg by joel th daily with breakfast. oxyCODONE hydrochloride 10 mg oral tablet (20 sources) Opioid Agonist Start: 8 oxyCODONE IR (ROXICODONE) 10 mg tab 10 mg as needed. 10/10/2017 Active Comment on above: 10 mg as needed. pantoprazole 40 mg delayed release oral tablet (20 sources) Proton Pump Inhibitor take 1 tablet by mouth once daily pantoprazole DR (PROTONIX) 40 mg tablet Take 40 mg by mouth once daily. Active Comment on above: Take 40 mg [...] DROPS INTO AFFECTED EYE 4 TIMES DAILY dexlansoprazole 60 mg delayed release oral capsule (20 sources) Proton Pump Inhibitor Start: 09-20-2021 End: 05-09-2024 take 1 capsule by mouth once daily DEXILANT 60 mg CpDM Take 1 capsule by mouth once daily. 0 09/20/2021 05/09/2024 Discontinued Comment on above: Take 1 capsule by mo [facility] once daily. hydrocortisone 10 mg/ml / neomycin 3.5 mg/ml / polymyxin b 01823 unt/ml otic solution (20 sources) Aminoglycoside Antibacterial, Polymyxin-class Antibacterial, Corticosteroid Start: 05-29-2019 End: 11-27-2023 neomycin-polymyxi n-hydrocortisone (CORTISPORIN) otic solution INSTILL 3 4 DROPS IN AFFECTED EAR FOUR TIMES DAILY 1 05/29/2019 11/27/2023 Discontinued (Discontinued by Patient) Comment on above: INSTILL 3 4 DROPS IN AFFECTED EAR FOUR TIMES DAILY levothyroxine sodium 0.05 mg oral tablet (20 sources) l-Thyroxine Start: 12-31-2014 End: 05-09-2024 take 1 tablet by mouth once daily levothyroxine (SYNTHROID) 50 mcg tablet Take 50 mcg by mouth once daily. 0 12/31/2014 05/09/2024 Discontinued Comment on above: Take 50 mcg by mouth once daily. metroNIDAZOLE 500 mg oral tablet (20 sources) Nitroimidazole Antimicrobial Start: 08-15-2021 End: 11-27-2023 metroNIDAZOLE (FLAGYL) 500 mg tablet moxifloxacin (1 source) Quinolone Antimicrobial Start: 10-30-2024 End: 11-20-2024 moxifloxacin HCl (MOXIFLOXACIN 0.5%-PREDNISOLONE 1%-BROMFENAC 0.09% DROPS - BUDERER ) Administer 1 drop to the right eye in the morning and 1 drop before bedtime. Do all this for 30 days. One drop twice a day to operative eye for one week, then daily for three weeks.. 10/30/2024 11/20/2024 Discontinued pamidronate 30 mg in NaCl 0.9% 250 mL (AREDIA) (1 source) Start: 02-26-2024 End: 02-26-2024 pamidronate 30 mg in NaCl 0.9% 250 mL (AREDIA) pioglitazone 30 mg oral tablet (20 sources) Peroxisome Proliferator Receptor alpha Agonist, Peroxisome Proliferator Receptor gamma Agonist, Thiazolidinedione Start: 08-03-2021 End: 11-27-2023 pioglitazone (ACTOS) 30 mg tablet End: 11-20-2024 take 1 tablet by mouth in the morning pioglitazone (ACTOS) 15 mg tablet Take 1 tablet (15 mg total) by mouth in the morning. 11/20/2024 Discontinued vancomycin 250 mg oral capsule (20 sources) Glycopeptide Antibacterial Start: 08-15-2021 End: 11-27-2023 vancomycin (VANCOCIN) 250 mg capsule 0 08/15/2021 11/27/2023 Discontinued (Discontinued by another Health Care Provider) Problems Active Problems Problem Classification Problem Date Documented Da te Episodic/Chronic Cataract (1 source) Cataract Onset: 10-30-2024 Chronic kidney disease (20 sources) Chronic kidney [...] Long-term current use of systemic steroid; Translations: [jail (current) use of systemic steroids] Onset: 10-20-2015 [...] Translations: [RADICULOPATHY CERVICAL REGION] Onset: 03-24-2022 Episodic Unclassified (1 source) Preprocedural examination done 10-10-2024 Results Test Name Value Interpretation Reference Range Facility ECG 12 leadon 10-10-2024 TRACEMASTERVUE [facility] CNPNon 05-29-2024 CNPN Telephone ([place]) ZACH MANUEL ([id number]) 1945 M Date Time Provider Department 05/29/24 JUAN FERGUSON During your visit today, we recorded the following information about you: Juan Ferguson RN 05/29/2024 12:21 PM Signed ----- Message from Latrice Hilario PA-C sent at 05/29/2024 11:58 AM EDT ----- Please call with stable myeloma labs Juan Ferguson RN 05/29/2024 12:22 PM Signed Pt and spouse notified and verbalizes understanding. Juan Ferguson RN Allergies As of Date: 05/29/2024 Noted Allergy Reaction AZITHROMYCIN 07/12/2018 16 - Unknown ERTHROMYCIN (ERYTHROMYCIN) 12/05/2016 16 - Unknown SULFA (SULFONAMIDE ANTIBIOTICS) 09/19/2012 16 - Unknown TOBRAMYCIN 03/08/2020 14 - Other: See Comments Comments: made condition worse Date Reviewed: 05/27/2024 Reviewed by: Latrice Hilario PA-C - Fully Assessed Reason for Visit: Care Coordination [3491] Cmt: Lab Results Prescriptions as of 05/29/2024 - lenalidomide (REVLIMID) 5 mg capsule Take 1 capsule by mouth daily for 21 days on and 7 days off. - dexAMETHasone (DECADRON) 4 mg tablet TAKE 2 TABLETS BY MOUTH ONCE A WEEK - glyBURIDE micronized (GLYNASE) 6 mg tablet - JARDIANCE 10 mg tablet Take 10 mg by mouth once daily. - liothyronine (CYTOMEL) 5 mcg tablet - pantoprazole DR (PROTONIX) 40 mg tablet Take 40 mg by mouth once daily. - BREO ELLIPTA 100-25 mcg/dose inhaler 1 Inhalation once daily. - fenofibrate nanocrystallized (TRICOR) 145 mg tablet Take 145 mg by mouth once daily. - oxyCODONE IR (ROXICODONE) 10 mg tab 10 mg as needed. - MELOXICAM 15 mg tablet Take 15 mg by mouth as needed. - GLUCOPHAGE 500 MG TAB Take 1,000 mg by mouth daily with breakfast. 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 Outlet dysfunction constipation [K59.02] 10/20/2015 Perirectal skin irritation [K62.89] 10/20/2015 Anal bleeding [K62.5] 10/20/2015 Type 2 diabetes mellitus without complication (*10/20/2015 jail current use of systemic steroids [Z79*10/20/2015 Left inguinal hernia [K40.90] 10/20/2015 Former smoker [Z87.891] 10/20/2015 Elevated prostate specific antigen (PSA) [R97.2*03/19/2020 Stage 3 chronic kidney disease, unspecified whe*03/06/2023 Encounter Status:Closed by JUAN FERGUSON on 05/29/24 Normal [facility] CBC W Auto Differential pane l (Bld)on 05-27-2024 Basophils (Bld) [#/Vol] 0.09 10*3/uL Normal <0.11 [facility] Comment on above: Order Comment: Speci men Type: BLOOD SPECIMENOrdering Facility: [facility] Address: [address] [place] [address] Performed By: #### 5 7021-8 ####[facility] LABCLIA [id number] [place] [address] Basophils/100 WBC (Bld) 1.3 % Normal [facility] Comment on above: Order Comment: Speci men Type: BLOOD SPECIMENOrdering Facility: [facility] Address: [address] [place] [address] Performed By: #### 5 7021-8 ####[facility] LABCLIA [id number] [place] [address] Differential cell count method Nom (Bld) Auto Normal [facility] Comment on above: Order Comment: Speci men Type: BLOOD SPECIMENOrdering Facility: [facility] Address: [address] [place] [address] Performed By: #### 5 7021-8 ####[facility] LABCLIA [id number] [place] [address] Eosinophils (Bld) [#/Vol] 0.32 10*3/uL Normal <0.46 [facility] Comment on above: Order Comment: Speci men Type: BLOOD SPECIMENOrdering Facility: [facility] Address: [address] [place] [address] Performed By: #### 5 7021-8 ####[facility] LABCLIA [id number] [place] [address] Eosinophils/100 WBC (Bld) 4.7 % Normal [facility] Comment on above: Order Comment: Speci men Type: BLOOD SPECIMENOrdering Facility: [facility] Address: [address] [place] [address] Performed By: #### 5 7021-8 ####[facility] LABCLIA [id number] [place] [address] Erythrocyte distribution width (RBC) [Ratio] 13.8 % Normal 11.5-15.0 [facility] Comment on above: Order Comment: Speci men Type: BLOOD SPECIMENOrdering Facility: [facility] Address: [address] [place] [address] Performed By: #### 5 7021-8 ####[facility] LABCLIA [id number] [place] [address] Hematocrit (Bld) [Volume fraction] 37.7 % Low 39.0-51.0 [facility] Comment on above: Order Comment: Speci men Type: BLOOD SPECIMENOrdering Facility: [facility] Address: [address] [place] [address] Performed By: #### 5 7021-8 ####[facility] LABCLIA [id number] [place] [address] Hemoglobin (Bld) [Mass/Vol] 13.3 g/dL Normal 13.0-17.0 [facility] Comment on above: Order Comment: Speci men Type: BLOOD SPECIMENOrdering Facility: [facility] Address: [address] [place] [address] Performed By: #### 5 7021-8 ####[facility] LABCLIA [id number] [place] [address] Immature granulocytes (Bld) [#/Vol] 0.03 10*3/uL Normal <0.10 [facility] Comment on above: Order Comment: Speci men Type: BLOOD SPECIMENOrdering Facility: [facility] Address: [address] [place] [address] Performed By: #### 5 7021-8 ####[facility] LABCLIA [id number] [place] [address] Immature granulocytes/100 WBC (Bld) 0.4 % Normal [facility] Comment on above: Order Comment: Speci men Type: BLOOD SPECIMENOrdering Facility: [facility] Address: [address] [place] [address] Performed By: #### 5 7021-8 ####[facility] LABCLIA [id number] [place] [address] Lymphocytes (Bld) [#/Vol] 1.04 10*3/uL Normal 1.00-4.00 [facility] Comment on above: Order Comment: Speci men Type: BLOOD SPECIMENOrdering Facility: [facility] Address: [address] [place] [address] Performed By: #### 5 7021-8 ####[facility] LABCLIA [id number] [place] [address] Lymphocytes/100 WBC (Bld) 15.3 % Normal [facility] Comment on above: Order Comment: Speci men Type: BLOOD SPECIMENOrdering Facility: [facility] Address: [address] [place] [address] Performed By: #### 5 7021-8 ####[facility] LABCLIA [id number] [place] [address] MCH (RBC) [Entitic mass] 36.3 pg High 26.0-34.0 [facility] Comment on above: Order Comment: Speci men Type: BLOOD SPECIMENOrdering Facility: [facility] Address: [address] [place] [address] Performed By: #### 5 7021-8 ####[facility] LABCLIA [id number] [place] [address] MCHC (RBC) [Mass/Vol] 35.3 g/dL Normal 30.5-36.0 [facility] Comment on above: Order Comment: Speci men Type: BLOOD SPECIMENOrdering Facility: [facility] Address: [address] [place] [address] Performed By: #### 5 7021-8 ####[facility] LABIA [id number] [place] [address] MCV (RBC) [Entitic vol] 103.0 fL High 80.0-100.0 [facility] Comment on above: Order Comment: Speci men Type: BLOOD SPECIMENOrdering Facility: [facility] Address: [address] [place] [address] Performed By: #### 5 7021-8 ####[facility] LABIA [id number] [place] [address] Monocytes (Bld) [#/Vol] 0.72 10*3/uL Normal <0.87 [facility] Comment on above: Order Comment: Speci men Type: BLOOD SPECIMENOrdering Facility: [facility] Address: [address] [place] [address] Performed By: #### 5 7021-8 ####[facility] LABIA [id number] [place] [address] Monocytes/100 WBC (Bld) 10.6 % Normal [facility] Comment on above: Order Comment: Speci men Type: BLOOD SPECIMENOrdering Facility: [facility] Address: [address] [place] [address] Performed By: #### 5 7021-8 ####[facility] LABCLIA [id number] [place] [address] Neutrophils (Bld) [#/Vol] 4.60 10*3/uL Normal 1.45-7.50 [facility] Comment on above: Order Comment: Speci men Type: BLOOD SPECIMENOrdering Facility: [facility] Address: [address] [place] [address] Performed By: #### 5 7021-8 ####[facility] LABCLIA [id number] [place] [address] Neutrophils/100 WBC (Bld) 67.7 % Normal [facility] Comment on above: Order Comment: Speci men Type: BLOOD SPECIMENOrdering Facility: [facility] Address: [address] [place] [address] Performed By: #### 5 7021-8 ####[facility] LABCLIA [id number] [place] [address] Nucleated RBC (Bld) [#/Vol] 10*3/uL Normal <0.01 [facility] Comment on above: Order Comment: Speci men Type: BLOOD SPECIMENOrdering Facility: [facility] Address: [address] [place] [address] Performed By: #### 5 7021-8 ####[facility] LABCLIA [id number] [place] [address] Nucleated RBC/100 WBC (Bld) [Ratio] 0.0 /100 WBC Normal [facility] Comment on above: Order Comment: Speci men Type: BLOOD SPECIMENOrdering Facility: [facility] Address: [address] [place] [address] Performed By: #### 5 7021-8 ####[facility] LABCLIA [id number] [place] [address] Platelet mean volume (Bld) [Entitic vol] 10.6 fL Normal 9.0-12.7 [facility] Comment on above: Order Comment: Speci men Type: BLOOD SPECIMENOrdering Facility: [facility] Address: [address] [place] [address] Performed By: #### 5 7021-8 ####[facility] LABIA [id number] [place] [address] Platelets (Bld) [#/Vol] 172 10*3/uL Normal 150-400 [facility] Comment on above: Order Comment: Speci men Type: BLOOD SPECIMENOrdering Facility: [facility] Address: [address] [place] [address] Performed By: #### 5 7021-8 ####[facility] [id number] [place] [address] RBC (Bld) [#/Vol] 3.66 10*6/uL Low 4.20-6.00 [facility] Comment on above: Order Comment: Speci men Type: BLOOD SPECIMENOrdering Facility: [facility] Address: [address] [place] [address] Performed By: #### 5 7021-8 ####[facility] LABIA [id number] [place] [address] WBC (Bld) [#/Vol] 6.80 10*3/uL Normal 3.70-11.00 [facility] Comment on above: Order Comment: Speci men Type: BLOOD SPECIMENOrdering Facility: [facility] Address: [address] [place] [address] Performed By: #### 5 7021-8 ####[facility] [id number] [place] [address] CNOVSPon 05-27-2024 CNOVSP Visit (SP) Office ([place]) ZACH MANUEL ([id number]) 1945 M Date Time Provider Department 05/27/24 1:00 PM SULAIMAN LATRICE DOUGLAS During your visit today, we recorded the following information about you: Temperature Pulse Respiration Blood pressure 97.9 degrees 63/minute 16/minute 117/65 Weight Height 85.2 kg 1.753 m Latrice Hilario PA-C 05/27/2024 1:29 PM Signed PATIENT NAME: Zach Manuel DATE: 02/26/2024 PRIMARY CARE PHYSICIAN: Dr. Hanna Mathias OTHER PHYSICIANS: Dr. Lewis, Dr. Mratinez Portions of this encounter note have been copied from the note from 11/27/2023 and has been updated where appropriate, and reflect my current medical decision making from today. CC: This is a 78 year old male with a history of multiple myeloma, seen for scheduled follow-up. INTERIM HISTORY: Since his last visit, he has Revlimid 5 mg for 21 days with 7 days of and dex 8 mg weekly. He did bump his arm left arm on a tire and has a skin tear that is healing. No fevers, chills or hospitalization. No new pain. MEDICATIONS: lenalidomide (REVLIMID) 5 mg capsule Take 1 capsule by mouth daily for 21 days on and 7 days off. dexAMETHasone (DECADRON) 4 mg tablet TAKE 2 TABLETS BY MOUTH ONCE A WEEK glyBURIDE micronized (GLYNASE) 6 mg tablet JARDIANCE 10 mg tablet Take 10 mg by mouth once daily. liothyronine (CYTOMEL) [address] (PROTONIX) 40 mg tablet Take 40 mg by mouth once daily. BREO ELLIPTA 100-25 mcg/dose inhaler 1 Inhalation once daily. fenofibrate nanocrystallized (TRICOR) 145 mg tablet Take 145 mg by mouth once daily. oxyCODONE IR (ROXICODONE) 10 mg tab 10 mg as needed. MELOXICAM 15 mg tablet Take 15 mg by mouth as needed. GLUCOPHAGE 500 MG TAB Take 1,000 mg by mouth daily with breakfast. 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 PHYSICAL EXAM: Vitals: BP 117/65 Pulse 63 Temp 36.6 ?C (97.9 ?F) (Temporal) Resp 16 Ht 175.3 cm (5' 9.02 ) Wt 85.2 kg (187 lb 13.3 oz) SpO2 98% BMI 27.73 kg/m? ECOG 0 Exam limited to gross [...] inflammation RADIOLOGY/OTHER STUDIES: 03/02/2020 Prostate MRI IMPRESSION: Enla (more content not included)... Normal [facility] CNPNon 05-27-2024 CNPN Telephone ([place]) ZACH MANUEL ([id number]) 1945 Date Time Provider Department 05/27/24 LATRICE HILARIO During your visit today, we recorded the following information about you: Latrice Hilario PA-C 05/27/2024 1:29 PM Signed Please call with a stable kidney function. APOLINAR Romo Rebecca, RN 05/27/2024 2:24 PM Signed Pt's spouse notified and verbalizes understanding. Juan Ferguson RN Allergies As of Date: 05/27/2024 Noted Allergy Reaction AZITHROMYCIN 07/12/2018 16 - Unknown ERTHROMYCIN (ERYTHROMYCIN) 12/05/2016 16 - Unknown SULFA (SULFONAMIDE ANTIBIOTICS) 09/19/2012 16 - Unknown TOBRAMYCIN 03/08/2020 14 - Other: See Comments Comments: made condition worse Date Reviewed: 05/27/2024 Reviewed by: Latrice Hilario PA-C - Fully Assessed Reason for Visit: Results [95] Prescriptions as of 05/27/2024 - lenalidomide (REVLIMID) 5 mg capsule Take 1 capsule by mouth daily for 21 days on and 7 days off. - dexAMETHasone (DECADRON) 4 mg tablet TAKE 2 TABLETS BY MOUTH ONCE A WEEK - glyBURIDE micronized (GLYNASE) 6 mg tablet - JARDIANCE 10 mg tablet Take 10 mg by mouth once daily. - liothyronine (CYTOMEL) 5 mcg tablet - pantoprazole DR (PROTONIX) 40 mg tablet Take 40 mg by mouth once daily. - BREO ELLIPTA 100-25 mcg/dose inhaler 1 Inhalation once daily. - fenofibrate nanocrystallized (TRICOR) 145 mg tablet Take 145 mg by mouth once daily. - oxyCODONE IR (ROXICODONE) 10 mg tab 10 mg as needed. - MELOXICAM 15 mg tablet Take 15 mg by mouth as needed. - GLUCOPHAGE 500 MG TAB Take 1,000 mg by mouth daily with breakfast. 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 Outlet dysfunction constipation [K59.02] 10/20/2015 Perirectal skin irritation [K62.89] 10/20/2015 Anal bleeding [K62.5] 10/20/2015 Type 2 diabetes mellitus without complication (*10/20/2015 jail current use of systemic steroids [Z79*10/20/2015 Left inguinal hernia [K40.90] 10/20/2015 Former smoker [Z87.891] 10/20/2015 Elevated prostate specific antigen (PSA) [R97.2*03/19/2020 Stage 3 chronic kidney disease, unspecified whe*03/06/2023 Encounter Status:Closed by JUAN FERGUSON on 05/27/24 Normal [facility] Comprehensive metabolic 2000 panelon 05-27-2024 Albumin [Mass/Vol] 3.9 g/dL Normal 3.9-4.9 [facility] Comment on above: Order Comment: Speci men Type: BLOOD SPECIMENOrdering Facility: [facility] Address: [address] [place] [address] Result Comment: Kd ected result: Previously reported as 4.1 g/dL on 05/27/2024 at 1:22 PM EDT. Performed By: #### 2 4323-8 ####[facility] LABCLIA [id number] [place] [address] [place] ALP [Catalytic activity/Vol] 74 U/L Normal 38-113 [facility] Comment on above: Order Comment: Speci men Type: BLOOD SPECIMENOrdering Facility: [facility] Address: [address] [place] [address] Result Comment: Kd ected result: Previously reported as 77 U/L on 05/27/2024 at 1:22 PM EDT. Performed By: #### 2 4323-8 ####[facility] LABCLIA [id number] [address] [place] ALT [Catalytic activity/Vol] 16 U/L Normal 10-54 [facility] Comment on above: Order Comment: Speci men Type: BLOOD SPECIMENOrdering Facility: [facility] Address: [address] [place] [address] Result Comment: Kd ected result: Previously reported as 10 U/L on 05/27/2024 at 1:22 PM EDT. Performed By: #### 2 4323-8 ####[facility] LABCLIA [id number] [place] [address] [place] Anion gap [Moles/Vol] 12 mmol/L Normal 8-15 [facility] Comment on above: Order Comment: Speci men Type: BLOOD SPECIMENOrdering Facility: [facility] Address: [address] [place] [address] Performed By: #### 2 4323-8 ####[facility] LABCLIA [id number] [place] [id number] [address] [place] AST [Catalytic activity/Vol] 20 U/L Normal 14-40 [facility] Comment on above: Order Comment: Speci men Type: BLOOD SPECIMENOrdering Facility: [facility] Address: [address] [place] [address] Result Comment: Kd ected result: Previously reported as 13 U/L on 05/27/2024 at 1:22 PM EDT. Performed By: #### 2 4323-8 ####[facility] LABCLIA [id number] [place] [address] [place] Bilirubin [Mass/Vol] 0.9 mg/dL Normal 0.2-1.3 [facility] Comment on above: Order Comment: Speci men Type: BLOOD SPECIMENOrdering Facility: [facility] Address: [address] [place] [address] Performed By: #### 2 4323-8 ####[facility] LABCLIA [id number] [place] [address] [place] Calcium [Mass/Vol] 8.5 mg/dL Normal 8.5-10.2 [facility] Comment on above: Order Comment: Speci men Type: BLOOD SPECIMENOrdering Facility: [facility] Address: [address] [place] [address] Performed By: #### 2 4323-8 ####[facility] LABCLIA [id number] [place] [address] [place] Chloride [Moles/Vol] 106 mmol/L Normal 98-107 [facility] Comment on above: Order Comment: Speci men Type: BLOOD SPECIMENOrdering Facility: [facility] Address: [address] [place] [address] Result Comment: Resu lt rechecked. Performed By: #### 2 4323-8 ####[facility] LABCLIA [id number] [place] [address] [place] CO2 [Moles/Vol] 27 mmol/L Normal 22-30 [facility] Comment on above: Order Comment: Speci myles Type: BLOOD SPECIMENOrdering Facility: [facility] Address: [address] [place] [address] Result Comment: Kd ected result: Previously reported as 29 mmol/L on 05/27/2024 at 1:22 PM EDT. Performed By: #### 2 4323-8 ####[facility] LABCLIA [id number] [place] [address] [place] Creatinine [Mass/Vol] 1.59 mg/dL High 0.73-1.22 [facility] Comment on above: Order Comment: Speci men Type: BLOOD SPECIMENOrdering Facility: [facility] Address: [address] [place] [address] Result Comment: Kd ected result: Previously reported as 1.61 mg/dL on 05/27/2024 at 1:22 PM EDT. Performed By: #### 2 4323-8 ####[facility] LABIA [id number] [place] [address] [place] Creatinine and Glomerular filtration rate.predicted panel (S/P/Bld) 44 mL/min/1.73m??? Low >=60 [facility] Comment on above: Order Comment: Michelle bueno Type: BLOOD SPECIMENOrdering Facility: [facility] Address: [address] [place] [address] Result Comment: Chanda mated Glomerular Filtration Rate [...] actual GFR. Performed By: #### 2 4323-8 ####[facility] LABCLIA [id number] [place] [id number] [place] Glucose [Mass/Vol] 78 mg/dL Normal 74-99 [facility] Comment on above: Order Comment: Speci men Type: BLOOD SPECIMENOrdering Facility: [facility] Address: [address] [place] [address] Result Comment: The [place] [employer] (ADA) provides guidance for cutoff [...] Standards of Medical Care in Diabetes 2016, [place] [employer]. Diabetes Care. 2016.39(Suppl 1). Corrected result: Previously reported as 85 mg/dL on 05/27/2024 at 1:22 PM EDT. Performed By: #### 2 4323-8 ####[facility] LABCLIA [id number] [place] [address] [place] Potassium [Moles/Vol] 4.5 mmol/L Normal 3.7-5.1 [facility] Comment on above: Order Comment: Michelle bueno Type: BLOOD SPECIMENOrdering Facility: [facility] Address: [address] [place] [address] Performed By: #### 2 4323-8 ####[facility] LABCLIA [id number] [place] [address] [place] Protein [Mass/Vol] 6.6 g/dL Normal 6.3-8.0 [facility] Comment on above: Order Comment: Speci men Type: BLOOD SPECIMENOrdering Facility: [facility] Address: [address] [place] [address] Result Comment: Kd ected result: Previously reported as 6.3 g/dL on 05/27/2024 at 1:22 PM EDT. Performed By: #### 2 4323-8 ####[facility] LABCLIA [id number] [place] [address] [place] Sodium [Moles/Vol] 145 mmol/L High 136-144 [facility] Comment on above: Order Comment: Speci men Type: BLOOD SPECIMENOrdering Facility: [facility] Address: [address] [place] [address] Result Comment: Resu lt rechecked. Performed By: #### 2 4323-8 ####[facility] LABCLIA [id number] [place] [address] [place] Urea nitrogen [Mass/Vol] 15 mg/dL Normal 9- [facility] Comment on above: Order Comment: Speci men Type: BLOOD SPECIMENOrdering Facility: [facility] Address: [address] [place] [address] Result Comment: Kd ected result: Previously reported as 17 mg/dL on 05/27/2024 at 1:22 PM EDT. Performed By: #### 2 4323-8 ####[facility] LABCLIA [id number] [address] [place] IMMUNOFIXATION SCREEN, SERUM on 05-27-2024 INTERPRETATION (MPA) Atypical restricted bands are present in the IgG and kappa regions. Consistent with IgG kappa monoclonal gammopathy. Normal [facility] Comment on above: Order Comment: Speci men Type: BLOOD SPECIMEN [facility] Address: [address] [place] [address] Performed By: #### K LFRS #### [facility] CLIA [id number] [address] [place] [address] [place] MPA RESULT M protein is present. Abnormal No M p rotein is identified. [facility] Comment on above: Order Comment: Speci men Type: BLOOD SPECIMEN [facility] Address: [address] [place] [address] Performed By: #### K LFRS #### [facility] CLIA [id number] [address] [place], [place] [address] [place] STAFF REVIEW (MPA) Reviewed by Alba Shelton MD Normal [facility] Comment on above: Order Comment: Speci men Type: BLOOD SPECIMEN [facility] Address: [address] [place] [address] Performed By: #### K LFRS #### [facility] CLIA [id number] [address] [place] [address] [place] IMMUNOGLOBULINS,IGG,IGA,IGMo n 05-27-2024 IgA [Mass/Vol] 94 mg/dL Normal 70-400 [facility] Comment on above: Order Comment: Speci men Type: BLOOD SPECIMENOrdering Facility: [facility] Address: [address] [place] [address] Performed By: #### S ERIMM ####[facility] LABCLIA [id number] [place] [address] [place] IgG [Mass/Vol] 1157 mg/dL Normal 700-1600 [facility] Comment on above: Order Comment: Speci men Type: BLOOD SPECIMENOrdering Facility: [facility] Address: [address] [place] [address] Performed By: #### S ERIMM ####[facility] LABCLIA [id number] [place] [address] [place] IgM [Mass/Vol] 18 mg/dL Low 40-230 [facility] Comment on above: Order Comment: Speci men Type: BLOOD SPECIMENOrdering Facility: [facility] Address: [address] [place] [address] Performed By: #### S ERIMM ####[facility] LABCLIA [id number] [place] [address] [place] KAPPA/DANIELS,FREE,SERon 2023 Immunoglobulin light chains.kappa.free (S) [Mass/Vol] 40.4 mg/L High 3.3-19.4 [facility] Comment on above: Order Comment: Speci men Type: BLOOD SPECIMEN [facility] Address: [address] [place] [address] Result Comment: Rare ly, increased serum free light chains levels may not be detected or accurately quantified due to prozone phenomenon or in high viscosity samples using this immunoturbidimetric assay. Correlation with other laboratory results and clinical findings is recommended. The [place] Free Light Chain was performed using the Binding Site Optilite immunoturbidimetric method. Result obtained with different assay methods or kits cannot be used interchangeably. Performed By: #### K LFRS #### [facility] CLIA [id number] [address] [place] [address] [place] Immunoglobulin light chains.kappa/Immun oglobulin light chains.lambda (S) [Mass ratio] 1.62 Normal 0.26-1.65 [facility] Comment on above: Order Comment: Speci myles Type: BLOOD SPECIMEN [facility] Address: [address] [place] [address] Performed By: #### K LFRS #### [facility] CLIA [id number] [address] [place] [address] [place] Immunoglobulin light chains.lambda.free [Mass/Vol] 25.0 mg/L Normal 5.7-26.3 [facility] Comment on above: Order Comment: Speci myles Type: BLOOD SPECIMEN [facility] Address: [address] [place] [address] Result Comment: Rare ly, increased serum free [...] used interchangeably. Performed By: #### K LFRS #### [facility] CLIA [id number] [address] [place] [address] [place] PROTEIN ELECTROPHORESIS SERU M (P)on 05-27-2024 Albumin [Mass/Vol] 3.79 g/dL Normal 3.43-5.41 [facility] Comment on above: Order Comment: Speci men Type: BLOOD SPECIMEN [facility] Address: [address] [place] [address] Performed By: #### K LFRS #### [facility] CLIA [id number] [address] [place] [address] [place] Alpha 1 globulin Elph [Mass/Vol] 0.23 g/dL Normal 0.18-0.43 [facility] Comment on above: Order Comment: Speci men Type: BLOOD SPECIMEN [facility] Address: [address] [place] [address] Performed By: #### K LFRS #### [facility] CLIA [id number] [address] [place] [address] [place] Alpha 2 globulin Elph [Mass/Vol] 0.59 g/dL Normal 0.42-0.98 [facility] Comment on above: Order Comment: Speci men Type: BLOOD SPECIMEN [facility] Address: [address] [place] [address] Performed By: #### K LFRS #### [facility] CLIA [id number] [address] [place] [address] [place] Beta globulin Elph [Mass/Vol] 0.61 g/dL Normal 0.61-1.17 [facility] Comment on above: Order Comment: Speci men Type: BLOOD SPECIMEN [facility] Address: [address] [place] [address] Performed By: #### K LFRS #### [facility] CLIA [id number] [address] [place] [address] [place] Gamma globulin Elph [Mass/Vol] 0.98 g/dL Normal 0.53-1.51 [facility] Comment on above: Order Comment: Speci men Type: BLOOD SPECIMEN [facility] Address: [address] [place] [id number] Performed By: #### K LFRS #### [facility] CLIA [id number] [address] [place] [address] [place] INTERPRETATION COMMENT FOR PROTEIN ELECTROPHORESIS See separate immunofixation report for characterization of monoclonal gammopathy. Normal [facility] Comment on above: Order Comment: Speci men Type: BLOOD SPECIMEN [facility] Address: [address] [place] [address] Performed By: #### K LFRS #### [facility] CLIA [id number] [address] [place] [address] [place] M-PROTEIN LOCATION Gamma Fraction 1 Normal [facility] Comment on above: Order Comment: Speci men Type: BLOOD SPECIMEN [facility] Address: [address] [place] [address] Performed By: #### K LFRS #### [facility] CLIA [id number] [address] [place] [address] [place] Protein Fractions [Interp] An M protein is identified on protein electrophoresis. Abnormal No definitive M protein is identified on protein electrophores is. [facility] Comment on above: Order Comment: Speci men Type: BLOOD SPECIMEN [facility] Address: [address] [place] [address] Performed By: #### K LFRS #### [facility] CLIA [id number] [address] [place], [place] [address] [place] Protein.monoclonal Elph [Mass/Vol] 0.67 g/dL High <=0.00 [facility] Comment on above: Order Comment: Speci men Type: BLOOD SPECIMEN [facility] Address: [address] [place], [place] [id number] Performed By: #### K LFRS #### [facility] CLIA [id number] [address] [place], [place] [address] [place] SPE STAFF REVIEW Reviewed by Alba Shelton MD [facility] Comment on above: Order Comment: Speci men Type: BLOOD SPECIMEN [facility] Address: [address] [place] [address] Performed By: #### K LFRS #### [facility] CLIA [id number] [address] [place] [address] [place] Prot SerPl-mCncon 05-27-2024 Protein [Mass/Vol] 6.2 g/dL Low 6.3-8.0 [facility] Comment on above: Order Comment: Speci men Type: BLOOD SPECIMENOrdering Facility: [facility] Address: [address] [place] [address] Performed By: #### 2 885-2 ####[facility] LABCLIA [id number] [address] [place] CNPNon 05-20-2024 CNPN Telephone (HEMTSA) ZACH MANUEL ([id number]) 1945 Date Time Provider Department 05/20/24 LATRICE HILARIO HEMTSA During your visit today, we recorded the following information about you: Irma Talavera MA 05/20/2024 10:36 AM Signed Patient has an appt on 05/27/24. Would you like labs, if so place orders. Irma Talavera MA Allergies As of Date: 05/20/2024 Noted Allergy Reaction AZITHROMYCIN 07/12/2018 16 - Unknown ERTHROMYCIN (ERYTHROMYCIN) 12/05/2016 16 - Unknown SULFA (SULFONAMIDE ANTIBIOTICS) 09/19/2012 16 - Unknown TOBRAMYCIN 03/08/2020 14 - Other: See Comments Comments: made condition worse Date Reviewed: 05/20/2024 Reviewed by: Latrice Hilario PA-C - Fully Assessed Reason for Visit: Lab Orders [1688] Primary Visit Diagnosis:Multiple myeloma not having achieved remission (HCC) [C90.00] Order(s):COMPREHENSIVE METABOLIC PANEL [SQCMP] Order #: [id number] FUTURE COMPLETE BLOOD COUNT AND DIFFERENTIAL [SQCBCDIF] Order #: [id number] FUTURE MONOCLONAL PROTEIN, SERUM (BLOOD) [SQSERMPA] Order #: [id number] FUTURE PROTEIN ELECTROPHORESIS SERUM W/INTERP [SQSEPG] Order #: [id number] FUTURE Prescriptions as of 05/20/2024 - lenalidomide (REVLIMID) 5 mg capsule Take 1 capsule by mouth daily for 21 days on and 7 days off. - dexAMETHasone (DECADRON) 4 mg tablet TAKE 2 TABLETS BY MOUTH ONCE A WEEK - glyBURIDE micronized (GLYNASE) 6 mg tablet - JARDIANCE 10 mg tablet Take 10 mg by mouth once daily. - liothyronine (CYTOMEL) 5 mcg tablet - pantoprazole DR (PROTONIX) 40 mg tablet Take 40 mg by mouth once daily. - BREO ELLIPTA 100-25 mcg/dose inhaler 1 Inhalation once daily. - fenofibrate nanocrystallized (TRICOR) 145 mg tablet Take 145 mg by mouth once daily. - oxyCODONE IR (ROXICODONE) 10 mg tab 10 mg as needed. - MELOXICAM 15 mg tablet Take 15 mg by mouth as needed. - GLUCOPHAGE 500 MG TAB Take 1,000 mg by mouth daily with breakfast. 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 Left inguinal hernia [K40.90] 10/20/2015 Former smoker [Z87.891] 10/20/2015 Elevated prostate specific antigen (PSA) [R97.2*03/19/2020 Stage 3 chronic kidney disease, unspecified whe*03/06/2023 Encounter Status:Closed by IRMA TALAVERA on 05/20/24 Normal [facility] CNPNon 02-29-2024 CNPN Telephone (HEMASA) ZACH MANUEL ([id number]) 1945 M Date Time Provider Department 02/29/24 JUAN FERGUSON HEMASA During your visit today, we recorded the following information about you: Juan Ferguson RN 02/29/2024 8:52 AM Signed ----- Message from Latrice Hilario PA-C sent at 02/29/2024 8:10 AM EDT ----- Please let patient know his labs are stable and we will continue to monitor Juan Ferguson RN 02/29/2024 8:53 AM Signed Pt notified and verbalizes understanding. 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/2015 Left inguinal hernia [K40.90] 10/20/2015 Former smoker [Z87.891] 10/20/2015 Elevated prostate specific antigen (PSA) [R97.2*03/19/2020 Stage 3 chronic kidney disease, unspecified whe*03/06/2023 Encounter Status:Closed by JUNA FERGUSON on 02/29/24 Normal [facility] CBC W Auto Differential pane l (Bld)on 02-26-2024 Basophils (Bld) [#/Vol] 0.09 10*3/uL Normal <0.11 [facility] Comment on above: Order Comment: Speci men Type: BLOOD SPECIMENOrdering Facility: [facility] Address: [address] [place] [address] Performed By: #### 5 7021-8 ####[facility] LABCLIA [id number] [place] [address] Basophils/100 WBC (Bld) 1.4 % Normal [facility] Comment on above: Order Comment: Speci men Type: BLOOD SPECIMENOrdering Facility: [facility] Address: [address] [place] [address] Performed By: #### 5 7021-8 ####[facility] LABCLIA [id number] [place] [address] Differential cell count method Nom (Bld) Auto Normal [facility] Comment on above: Order Comment: Speci men Type: BLOOD SPECIMENOrdering Facility: [facility] Address: [address] [place] [address] Performed By: #### 5 7021-8 ####[facility] LABCLIA [id number] [place] [address] Eosinophils (Bld) [#/Vol] 0.44 10*3/uL Normal <0.46 [facility] Comment on above: Order Comment: Speci men Type: BLOOD SPECIMENOrdering Facility: [facility] Address: [address] [place] [address] Performed By: #### 5 7021-8 ####[facility] LABCLIA [id number] [place] [address] Eosinophils/100 WBC (Bld) 6.6 % Normal [facility] Comment on above: Order Comment: Speci men Type: BLOOD SPECIMENOrdering Facility: [facility] Address: [address] [place] [address] Performed By: #### 5 7021-8 ####[facility] LABCLIA [id number] [place] [address] Erythrocyte distribution width (RBC) [Ratio] 15.4 % High 11.5-15.0 [facility] Comment on above: Order Comment: Speci men Type: BLOOD SPECIMENOrdering Facility: [facility] Address: [address] [place] [address] Performed By: #### 5 7021-8 ####[facility]CLIA [id number] [place] [address] Hematocrit (Bld) [Volume fraction] 38.0 % Low 39.0-51.0 [facility] Comment on above: Order Comment: Speci men Type: BLOOD SPECIMENOrdering Facility: [facility] Address: [address] [place] [address] Performed By: #### 5 7021-8 ####[facility] LABCLIA [id number] [place] [address] Hemoglobin (Bld) [Mass/Vol] 12.9 g/dL Low 13.0-17.0 [facility] Comment on above: Order Comment: Speci men Type: BLOOD SPECIMENOrdering Facility: [facility] Address: [address] [place] [address] Performed By: #### 5 7021-8 ####[facility] LABCLIA [id number] [place] [address] Immature granulocytes (Bld) [#/Vol] 0.04 10*3/uL Normal <0.10 [facility] Comment on above: Order Comment: Speci men Type: BLOOD SPECIMENOrdering Facility: [facility] Address: [address] [place] [address] Performed By: #### 5 7021-8 ####[facility] LABCLIA [id number] [place] [address] Immature granulocytes/100 WBC (Bld) 0.6 % Normal [facility] Comment on above: Order Comment: Speci men Type: BLOOD SPECIMENOrdering Facility: [facility] Address: [address] [place] [address] Performed By: #### 5 7021-8 ####[facility] LABCLIA [id number] [place] [address] Lymphocytes (Bld) [#/Vol] 1.24 10*3/uL Normal 1.00-4.00 [facility] Comment on above: Order Comment: Speci men Type: BLOOD SPECIMENOrdering Facility: [facility] Address: [address] [place] [address] Performed By: #### 5 7021-8 ####[facility] LABCLIA [id number] [place] [address] Lymphocytes/100 WBC (Bld) 18.6 % Normal [facility] Comment on above: Order Comment: Speci men Type: BLOOD SPECIMENOrdering Facility: [facility] Address: [address] [place] [address] Performed By: #### 5 7021-8 ####[facility] LABCLIA [id number] [place] [address] MCH (RBC) [Entitic mass] 35.5 pg High 26.0-34.0 [facility] Comment on above: Order Comment: Speci men Type: BLOOD SPECIMENOrdering Facility: [facility] Address: [address] [place] [address] Performed By: #### 5 7021-8 ####[facility] LABCLIA [id number] [place] [address] MCHC (RBC) [Mass/Vol] 33.9 g/dL Normal 30.5-36.0 [facility] Comment on above: Order Comment: Speci men Type: BLOOD SPECIMENOrdering Facility: [facility] Address: [address] [place] [address] Performed By: #### 5 7021-8 ####[facility] LABIA [id number] [place] [address] MCV (RBC) [Entitic vol] 104.7 fL High 80.0-100.0 [facility] Comment on above: Order Comment: Speci men Type: BLOOD SPECIMENOrdering Facility: [facility] Address: [address] [place] [address] Performed By: #### 5 7021-8 ####[facility] LABCLIA [id number] [place] [address] Monocytes (Bld) [#/Vol] 0.88 10*3/uL High <0.87 [facility] Comment on above: Order Comment: Speci men Type: BLOOD SPECIMENOrdering Facility: [facility] Address: [address] [place] [address] Performed By: #### 5 7021-8 ####[facility] LABCLIA [id number] [place] [address] Monocytes/100 WBC (Bld) 13.2 % Normal [facility] Comment on above: Order Comment: Speci men Type: BLOOD SPECIMENOrdering Facility: [facility] Address: [address] [place] [address] Performed By: #### 5 7021-8 ####[facility] LABCLIA [id number] [place] [address] Neutrophils (Bld) [#/Vol] 3.96 10*3/uL Normal 1.45-7.50 [facility] Comment on above: Order Comment: Speci men Type: BLOOD SPECIMENOrdering Facility: [facility] Address: [address] [place] [address] Performed By: #### 5 7021-8 ####[facility] LABCLIA [id number] [place] [address] Neutrophils/100 WBC (Bld) 59.6 % Normal [facility] Comment on above: Order Comment: Speci men Type: BLOOD SPECIMENOrdering Facility: [facility] Address: [address] [place] [address] Performed By: #### 5 7021-8 ####[facility] LABCLIA [id number] [place] [address] Nucleated RBC (Bld) [#/Vol] 10*3/uL Normal <0.01 [facility] Comment on above: Order Comment: Speci men Type: BLOOD SPECIMENOrdering Facility: [facility] Address: [address] [place] [address] Performed By: #### 5 7021-8 ####[facility] LABCLIA [id number] [place] [address] Nucleated RBC/100 WBC (Bld) [Ratio] 0.0 /100 WBC Normal [facility] Comment on above: Order Comment: Speci men Type: BLOOD SPECIMENOrdering Facility: [facility] Address: [address] [place] [address] Performed By: #### 5 7021-8 ####[facility] LABCLIA [id number] [place] [address] Platelet mean volume (Bld) [Entitic vol] 10.6 fL Normal 9.0-12.7 [facility] Comment on above: Order Comment: Speci men Type: BLOOD SPECIMENOrdering Facility: [facility] Address: [address] [place] [address] Performed By: #### 5 7021-8 ####[facility] LABIA [id number] [place] [address] Platelets (Bld) [#/Vol] 203 10*3/uL Normal 150-400 [facility] Comment on above: Order Comment: Speci men Type: BLOOD SPECIMENOrdering Facility: [facility] Address: [address] [place] [address] Performed By: #### 5 7021-8 ####[facility] LABIA [id number] [place] [address] RBC (Bld) [#/Vol] 3.63 10*6/uL Low 4.20-6.00 [facility] Comment on above: Order Comment: Speci men Type: BLOOD SPECIMENOrdering Facility: [facility] Address: [address] [place] [address] Performed By: #### 5 7021-8 ####[facility] LABCLIA [id number] [place] [address] WBC (Bld) [#/Vol] 6.65 10*3/uL Normal 3.70-11.00 [facility] Comment on above: Order Comment: Speci men Type: BLOOD SPECIMENOrdering Facility: [facility] Address: [facility] [place] [id number] Performed By: #### 5 7021-8 ####[facility] LABCLIA [id number] [place] [address] CNOVSPon 02-26-2024 CNOVSP Visit (SP) Office ([place]) ZACH MANUEL ([id number]) 1945 M Date Time Provider Department 02/26/24 [...] mellitus (HCC) Hyperlipidemia Monoclonal gammopathy 11/2002 IgG [place] Multiple myeloma (HCC) 2002 Ulcerative colitis (HCC) [...] mid posterolateral (more content not included)... Normal [facility] Comprehensive metabolic 2000 panelon 02-26-2024 Albumin [Mass/Vol] 3.9 g/dL Normal 3.9-4.9 [facility] Comment on above: Order Comment: Speci men Type: BLOOD SPECIMENOrdering Facility: [facility] Address: [address] [place] [address] Performed By: #### 2 4323-8 ####[facility] LABCLIA [id number] [place] [address] ALP [Catalytic activity/Vol] 78 U/L Normal 38-113 [facility] Comment on above: Order Comment: Speci men Type: BLOOD SPECIMENOrdering Facility: [facility] Address: [address] [place] [address] Performed By: #### 2 4323-8 ####[facility] LABCLIA [id number] [place] [address] ALT [Catalytic activity/Vol] 8 U/L Low 10-54 [facility] Comment on above: Order Comment: Speci men Type: BLOOD SPECIMENOrdering Facility: [facility] Address: [address] [place] [address] Performed By: #### 2 4323-8 ####[facility] LABCLIA [id number] [place] [address] Anion gap [Moles/Vol] 6 mmol/L Low 8-15 [facility] Comment on above: Order Comment: Speci men Type: BLOOD SPECIMENOrdering Facility: [facility] Address: [address] [place] [address] Performed By: #### 2 4323-8 ####[facility] LABCLIA [id number] [place] [address] AST [Catalytic activity/Vol] 13 U/L Low 14-40 [facility] Comment on above: Order Comment: Speci men Type: BLOOD SPECIMENOrdering Facility: [facility] Address: [address] [place] [address] Performed By: #### 2 4323-8 ####[facility] LABCLIA [id number] [place] [address] Bilirubin [Mass/Vol] 0.8 mg/dL Normal 0.2-1.3 [facility] Comment on above: Order Comment: Speci men Type: BLOOD SPECIMENOrdering Facility: [facility] Address: [address] [place] [address] Performed By: #### 2 4323-8 ####[facility] LABCLIA [id number] [place] [address] Calcium [Mass/Vol] 8.9 mg/dL Normal 8.5-10.2 [facility] Comment on above: Order Comment: Speci men Type: BLOOD SPECIMENOrdering Facility: [facility] Address: [address] [place] [address] Performed By: #### 2 4323-8 ####[facility] LABCLIA [id number] [place] [address] Chloride [Moles/Vol] 103 mmol/L Normal 98-107 [facility] Comment on above: Order Comment: Speci men Type: BLOOD SPECIMENOrdering Facility: [facility] Address: [address] [place] [address] Performed By: #### 2 4323-8 ####[facility] LABCLIA [id number] [place] [address] CO2 [Moles/Vol] 30 mmol/L Normal 22-30 [facility] Comment on above: Order Comment: Speci men Type: BLOOD SPECIMENOrdering Facility: [facility] Address: [address] [place] [address] Performed By: #### 2 4323-8 ####[facility] LABCLIA [id number] [place] [address] Creatinine [Mass/Vol] 1.70 mg/dL High 0.73-1.22 [facility] Comment on above: Order Comment: Speci men Type: BLOOD SPECIMENOrdering Facility: [facility] Address: [address] [place] [address] Performed By: #### 2 4323-8 ####[facility] LABIA [id number] [place] [address] Creatinine and Glomerular filtration rate.predicted panel (S/P/Bld) 41 mL/min/1.73m??? Low >=60 [facility] Comment on above: Order Comment: Speci men Type: BLOOD SPECIMENOrdering Facility: [facility] Address: [address] [place] [address] Result Comment: Chanda mated Glomerular Filtration Rate [...] actual GFR. Performed By: #### 2 4323-8 ####[facility] LABCLIA [id number] [place] [address] Glucose [Mass/Vol] 175 mg/dL High 74-99 [facility] Comment on above: Order Comment: Michelle bueno Type: BLOOD SPECIMENOrdering Facility: [facility] Address: [address] [place] [address] Result Comment: The [place] [employer] (ADA) provides guidance for cutoff [...] Standards of Medical Care in Diabetes 2016, [place] [employer]. Diabetes Care. 2016.39(Suppl 1). Performed By: #### 2 4323-8 ####[facility] LABCLIA [id number] [place] [address] Potassium [Moles/Vol] 4.8 mmol/L Normal 3.7-5.1 [facility] Comment on above: Order Comment: Michelle bueno Type: BLOOD SPECIMENOrdering Facility: [facility] Address: [address] [id number] Performed By: #### 2 4323-8 ####[facility] LABCLIA [id number] [place] [address] Protein [Mass/Vol] 6.7 g/dL Normal 6.3-8.0 [facility] Comment on above: Order Comment: Speci men Type: BLOOD SPECIMENOrdering Facility: [facility] Address: [address] [place] [address] Performed By: #### 2 4323-8 ####[facility] LABCLIA [id number] [place] [address] Sodium [Moles/Vol] 139 mmol/L Normal 136-144 [facility] Comment on above: Order Comment: Speci men Type: BLOOD SPECIMENOrdering Facility: [facility] Address: [address] [place] [address] Performed By: #### 2 4323-8 ####[facility] LABCLIA [id number] [place] [address] Urea nitrogen [Mass/Vol] 23 mg/dL Normal 9-24 [facility] Comment on above: Order Comment: Speci men Type: BLOOD SPECIMENOrdering Facility: [facility] Address: [address] [place] [address] Performed By: #### 2 4323-8 ####[facility] LABCLIA [id number] [place] [address] IMMUNOFIXATION SCREEN, SERUM on 02-26-2024 INTERPRETATION (MPA) Atypical restricted bands are present in the IgG and kappa regions. Consistent with IgG kappa monoclonal gammopathy. Normal [facility] Comment on above: Order Comment: Speci men Type: BLOOD SPECIMEN [facility] Facility: [facility] Address: [address] [place] [address] Performed By: #### I [facility] #### [facility] CLIA [id number] [address] [place] [address] [address] [place] MPA RESULT M protein is present. Abnormal No M p rotein is identified. [facility] Comment on above: Order Comment: Speci men Type: BLOOD SPECIMEN [facility] Facility: [facility] Address: [address] [place] [address] Performed By: #### I FESC #### [facility] CLIA [id number] [address] [place] [address] [place] STAFF REVIEW (MPA) Reviewed by Dr. Marcel White MD [facility] Comment on above: Order Comment: Speci men Type: BLOOD SPECIMEN Order[facility] Facility: [facility] Address: [address] [place] [address] Performed By: #### I FES #### [facility] CLIA [id number] [address] [place] [address] [place] IMMUNOGLOBULINS,IGG,IGA,IGMo n 02-26-2024 IgA [Mass/Vol] 96 mg/dL Normal 70-400 [facility] Comment on above: Order Comment: Speci men Type: BLOOD SPECIMENOrdering Facility: [facility] Address: [address] [place] [address] Performed By: #### S ERIMM ####[facility] LABCLIA [id number] [place] [address] [place] IgG [Mass/Vol] 1109 mg/dL Normal 700-1600 [facility] Comment on above: Order Comment: Speci men Type: BLOOD SPECIMENOrdering Facility: [facility] Address: [address] [place] [address] Performed By: #### S ERIMM ####[facility] LABCLIA [id number] [place] [address] [place] IgM [Mass/Vol] 17 mg/dL Low 40-230 [facility] Comment on above: Order Comment: Speci men Type: BLOOD SPECIMENOrdering Facility: [facility] Address: [address] [place] [address] Performed By: #### S ERIMM ####[facility] LABCLIA [id number] [place] [address] [place] KAPPA/DANIELS,FREE,SERon 2023 Immunoglobulin light chains.kappa.free (S) [Mass/Vol] 40.3 mg/L High 3.3-19.4 [facility] Comment on above: Order Comment: Speci men Type: BLOOD SPECIMEN Ordering Facility: [facility] Address: [address] [place] [address] Result Comment: Rare ly, increased serum free light chains levels may not be detected or accurately quantified due to prozone phenomenon or in high viscosity samples using this immunoturbidimetric assay. Correlation with other laboratory results and clinical findings is recommended. The [place] Free Light Chain was performed using the Binding Site Optilite immunoturbidimetric method. Result obtained with different assay methods or kits cannot be used interchangeably. Performed By: #### K LFRS #### [facility] CLIA [id number] [address] [place], [place] [address] [address] [place] Immunoglobulin light chains.kappa/Immun oglobulin light chains.lambda (S) [Mass ratio] 1.57 Normal 0.26-1.65 [facility] Comment on above: Order Comment: Vickiei myles Type: BLOOD SPECIMEN Ordering Facility: [facility] Address: [address] [place] [address] Performed By: #### K LFRS #### [facility] CLIA [id number] [address] [place] [address] [place] Immunoglobulin light chains.lambda.free [Mass/Vol] 25.6 mg/L Normal 5.7-26.3 [facility] Comment on above: Order Comment: Vickiei myles Type: BLOOD SPECIMEN [facility]: [facility] Address: [address] [place] [address] Result Comment: Rare ly, increased serum free [...] used interchangeably. Performed By: #### K LFRS #### [facility] CLIA [id number] [address] [place] [address] [place] PROTEIN ELECTROPHORESIS SERU M WITH TOÑITO (P)on 02-26-2024 Albumin [Mass/Vol] 4.08 g/dL Normal 3.43-5.41 [facility] Comment on above: Order Comment: Speci men Type: BLOOD SPECIMENOrdering Facility: [facility] Address: [address] [place] [address] Performed By: #### L [id number] ####[facility] LABCLIA [id number] [place] [address] [place] Alpha 1 globulin Elph [Mass/Vol] 0.25 g/dL Normal 0.18-0.43 [facility] Comment on above: Order Comment: Speci men Type: BLOOD SPECIMENOrdering Facility: [facility] Address: [address] [place] [address] Performed By: #### L [id number] ####[facility] LABCLIA [id number] [place] [address] [place] Alpha 2 globulin Elph [Mass/Vol] 0.67 g/dL Normal 0.42-0.98 [facility] Comment on above: Order Comment: Speci men Type: BLOOD SPECIMENOrdering Facility: [facility] Address: [address] [place] [address] Performed By: #### L [id number] ####[facility] LABCLIA [id number] [place] [address] [place] Beta globulin Elph [Mass/Vol] 0.65 g/dL Normal 0.61-1.17 [facility] Comment on above: Order Comment: Speci men Type: BLOOD SPECIMENOrdering Facility: [facility] Address: [address] [place] [address] Performed By: #### L [id number] ####[facility] LABCLIA [id number] [address] [place] COMMENT (SERUM PROT ELECTRO) Monoclonal Protein analysis (immunofixation) is not indicated. Normal [facility] Comment on above: Order Comment: Speci men Type: BLOOD SPECIMENOrdering Facility: [facility] Address: [address] [place] [address] Performed By: #### L [id number] ####[facility] LABIA [id number] [place] [address] [place] Gamma globulin Elph [Mass/Vol] 1.05 g/dL Normal 0.53-1.51 [facility] Comment on above: Order Comment: Speci men Type: BLOOD SPECIMENOrdering Facility: [facility] Address: [address] [place] [address] Performed By: #### L [id number] ####[facility] LABIA [id number] [address] INTERPRETATION COMMENT FOR PROTEIN ELECTROPHORESIS See separate immunofixation report for characterization of monoclonal gammopathy. Normal [facility] Comment on above: Order Comment: Speci men Type: BLOOD SPECIMENOrdering Facility: [facility] Address: [address] [place] [address] Performed By: #### L [id number] ####[facility] LABIA [id number] [address] [place] M-PROTEIN LOCATION Gamma Fraction 1 Normal [facility] Comment on above: Order Comment: Speci men Type: BLOOD SPECIMENOrdering Facility: [facility] Address: [address] [place] [address] Performed By: #### L [id number] ####[facility] LABIA [id number] [address] [place] Protein Fractions [Interp] An M protein is identified on protein electrophoresis. Abnormal No definitive M protein is identified on protein electrophores is. [facility] Comment on above: Order Comment: Speci men Type: BLOOD SPECIMENOrdering Facility: [facility] Address: [address] [place] [address] Performed By: #### L [id number] ####[facility] LABCLIA [id number] [place] [address] [place] Protein.monoclonal Elph [Mass/Vol] 0.67 g/dL High <=0.00 [facility] Comment on above: Order Comment: Speci men Type: BLOOD SPECIMENOrdering Facility: [facility] Address: [address] [place] [address] Performed By: #### L [id number] ####[facility] LABCLIA [id number] [place] [address] [place] SPE STAFF REVIEW Reviewed by Dr. Marcel White MD [facility] Comment on above: Order Comment: Speci men Type: BLOOD SPECIMENOrdering Facility: [facility] Address: [address] [place] [address] Performed By: #### L [id number] ####[facility] LABCLIA [id number] [place] [address] [place] Prot SerPl-mCncon 02-26-2024 Protein [Mass/Vol] 6.3 g/dL Normal 6.3-8.0 [facility] Comment on above: Order Comment: Speci men Type: BLOOD SPECIMEN [facility]: [facility] Address: [address] [place] [address] Performed By: #### K LFRS #### [facility] CLIA [id number] [address] [place] [address] [place] Basic metabolic 2000 panelon 11-27-2023 Anion gap [Moles/Vol] 9 mmol/L Normal 9-18 [facility] Comment on above: Order Comment: Speci men Type: BLOOD SPECIMENOrdering Facility: [facility] Address: [address] [place] [address] Performed By: #### 2 4321-2 ####[facility] LABCLIA [id number] [place] [address] Calcium [Mass/Vol] 9.2 mg/dL Normal 8.5-10.2 [facility] Comment on above: Order Comment: Speci men Type: BLOOD SPECIMENOrdering Facility: [facility] Address: [address] [place] [address] Performed By: #### 2 4321-2 ####[facility] LABCLIA [id number] [place] [address] Chloride [Moles/Vol] 101 mmol/L Normal 97-105 [facility] Comment on above: Order Comment: Speci men Type: BLOOD SPECIMENOrdering Facility: [facility] Address: [address] [place] [address] Performed By: #### 2 4321-2 ####[facility] LABCLIA [id number] [place] [address] CO2 [Moles/Vol] 28 mmol/L Normal 22-30 [facility] Comment on above: Order Comment: Speci men Type: BLOOD SPECIMENOrdering Facility: [facility] Address: [address] [place] [address] Performed By: #### 2 4321-2 ####[facility] LABCLIA [id number] [place] [address] Creatinine [Mass/Vol] 1.53 mg/dL High 0.73-1.22 [facility] Comment on above: Order Comment: Speci men Type: BLOOD SPECIMENOrdering Facility: [facility] Address: [address] [place] [address] Performed By: #### 2 4321-2 ####[facility] LABIA [id number] [place] [address] Creatinine and Glomerular filtration rate.predicted panel (S/P/Bld) 47 mL/min/1.73m??? Low >=60 [facility] Comment on above: Order Comment: Speci men Type: BLOOD SPECIMENOrdering Facility: [facility] Address: [address] [place] [address] Result Comment: Chanda mated Glomerular Filtration Rate [...] actual GFR. Performed By: #### 2 4321-2 ####[facility] LABCLIA [id number] [place] [address] Glucose [Mass/Vol] 110 mg/dL High 74-99 [facility] Comment on above: Order Comment: Michelle bueno Type: BLOOD SPECIMENOrdering Facility: [facility] Address: [address] [place] [address] Result Comment: The [place] [employer] (ADA) provides guidance for cutoff [...] Standards of Medical Care in Diabetes 2016, [place] [employer]. Diabetes Care. 2016.39(Suppl 1). Performed By: #### 2 4321-2 ####[facility] LABCLIA [id number] [place] [address] Potassium [Moles/Vol] 3.9 mmol/L Normal 3.7-5.1 [facility] Comment on above: Order Comment: Michelle bueno Type: BLOOD SPECIMENOrdering Facility: [facility] Address: [address] [id number] Performed By: #### 2 4321-2 ####[facility] LABCLIA [id number] [place] [address] Sodium [Moles/Vol] 138 mmol/L Normal 136-144 [facility] Comment on above: Order Comment: Speci men Type: BLOOD SPECIMENOrdering Facility: [facility] Address: [address] [place] [address] Performed By: #### 2 4321-2 ####[facility] LABCLIA [id number] [place] [address] Urea nitrogen [Mass/Vol] 22 mg/dL Normal 9-24 [facility] Comment on above: Order Comment: Speci men Type: BLOOD SPECIMENOrdering Facility: [facility] Address: [address] [place] [address] Performed By: #### 2 4321-2 ####[facility] LABCLIA [id number] [place] [address] CBC W Auto Differential pane l (Bld)on 11-27-2023 Basophils (Bld) [#/Vol] 0.07 10*3/uL Normal <0.11 [facility] Comment on above: Order Comment: Speci men Type: BLOOD SPECIMENOrdering Facility: [facility] Address: [address] [place] [address] Performed By: #### 5 7021-8 ####[facility] LABCLIA [id number] [place] [address] Basophils/100 WBC (Bld) 1.7 % Normal [facility] Comment on above: Order Comment: Speci men Type: BLOOD SPECIMENOrdering Facility: [facility] Address: [address] [place] [address] Performed By: #### 5 7021-8 ####[facility] LABCLIA [id number] [place] [address] Differential cell count method Nom (Bld) Auto Normal [facility] Comment on above: Order Comment: Speci men Type: BLOOD SPECIMENOrdering Facility: [facility] Address: [address] [place] [address] Performed By: #### 5 7021-8 ####[facility] LABCLIA [id number] [place] [address] Eosinophils (Bld) [#/Vol] 0.41 10*3/uL Normal <0.46 [facility] Comment on above: Order Comment: Speci men Type: BLOOD SPECIMENOrdering Facility: [facility] Address: [address] [place] [address] Performed By: #### 5 7021-8 ####[facility] LABCLIA [id number] [place] [address] Eosinophils/100 WBC (Bld) 10.2 % Normal [facility] Comment on above: Order Comment: Speci men Type: BLOOD SPECIMENOrdering Facility: [facility] Address: [address] [place] [address] Performed By: #### 5 7021-8 ####[facility] LABCLIA [id number] [place] [address] Erythrocyte distribution width (RBC) [Ratio] 17.2 % High 11.5-15.0 [facility] Comment on above: Order Comment: Speci men Type: BLOOD SPECIMENOrdering Facility: [facility] Address: [address] [place] [address] Performed By: #### 5 7021-8 ####[facility] LABCLIA [id number] [place] [address] Hematocrit (Bld) [Volume fraction] 39.1 % Normal 39.0-51.0 [facility] Comment on above: Order Comment: Speci men Type: BLOOD SPECIMENOrdering Facility: [facility] Address: [address] [place] [address] Performed By: #### 5 7021-8 ####[facility]CLIA [id number] [place] [address] Hemoglobin (Bld) [Mass/Vol] 13.3 g/dL Normal 13.0-17.0 [facility] Comment on above: Order Comment: Speci men Type: BLOOD SPECIMENOrdering Facility: [facility] Address: [address] [place] [address] Performed By: #### 5 7021-8 ####[facility] LABCLIA [id number] [place] [address] Immature granulocytes (Bld) [#/Vol] 10*3/uL Normal <0.10 [facility] Comment on above: Order Comment: Speci men Type: BLOOD SPECIMENOrdering Facility: [facility] Address: [address] [place] [address] Performed By: #### 5 7021-8 ####[facility] LABCLIA [id number] [place] [address] Immature granulocytes/100 WBC (Bld) 0.5 % Normal [facility] Comment on above: Order Comment: Speci men Type: BLOOD SPECIMENOrdering Facility: [facility] Address: [address] [place] [address] Performed By: #### 5 7021-8 ####[facility] LABCLIA [id number] [place] [address] Lymphocytes (Bld) [#/Vol] 1.03 10*3/uL Normal 1.00-4.00 [facility] Comment on above: Order Comment: Speci men Type: BLOOD SPECIMENOrdering Facility: [facility] Address: [address] [place] [address] Performed By: #### 5 7021-8 ####[facility] LABCLIA [id number] [place] [address] Lymphocytes/100 WBC (Bld) 25.7 % Normal [facility] Comment on above: Order Comment: Speci men Type: BLOOD SPECIMENOrdering Facility: [facility] Address: [address] [place] [address] Performed By: #### 5 7021-8 ####[facility] LABCLIA [id number] [place] [address] MCH (RBC) [Entitic mass] 35.5 pg High 26.0-34.0 [facility] Comment on above: Order Comment: Speci men Type: BLOOD SPECIMENOrdering Facility: [facility] Address: [address] [place] [address] Performed By: #### 5 7021-8 ####[facility] LABCLIA [id number] [place] [address] MCHC (RBC) [Mass/Vol] 34.0 g/dL Normal 30.5-36.0 [facility] Comment on above: Order Comment: Speci men Type: BLOOD SPECIMENOrdering Facility: [facility] Address: [address] [place] [address] Performed By: #### 5 7021-8 ####[facility] LABCLIA [id number] [place] [address] MCV (RBC) [Entitic vol] 104.3 fL High 80.0-100.0 [facility] Comment on above: Order Comment: Speci men Type: BLOOD SPECIMENOrdering Facility: [facility] Address: [address] [place] [address] Performed By: #### 5 7021-8 ####[facility] LABCLIA [id number] [place] [address] Monocytes (Bld) [#/Vol] 0.42 10*3/uL Normal <0.87 [facility] Comment on above: Order Comment: Speci men Type: BLOOD SPECIMENOrdering Facility: [facility] Address: [address] [place] [address] Performed By: #### 5 7021-8 ####[facility] LABCLIA [id number] [place] [address] Monocytes/100 WBC (Bld) 10.5 % Normal [facility] Comment on above: Order Comment: Speci men Type: BLOOD SPECIMENOrdering Facility: [facility] Address: [address] [place] [address] Performed By: #### 5 7021-8 ####[facility] LABCLIA [id number] [place] [address] Neutrophils (Bld) [#/Vol] 2.06 10*3/uL Normal 1.45-7.50 [facility] Comment on above: Order Comment: Speci men Type: BLOOD SPECIMENOrdering Facility: [facility] Address: [address] [place] [address] Performed By: #### 5 7021-8 ####[facility] LABCLIA [id number] [place] [address] Neutrophils/100 WBC (Bld) 51.4 % Normal [facility] Comment on above: Order Comment: Speci men Type: BLOOD SPECIMENOrdering Facility: [facility] Address: [address] [place] [address] Performed By: #### 5 7021-8 ####[facility] LABCLIA [id number] [place] [address] Nucleated RBC (Bld) [#/Vol] 10*3/uL Normal <0.01 [facility] Comment on above: Order Comment: Speci men Type: BLOOD SPECIMENOrdering Facility: [facility] Address: [address] [place] [address] Performed By: #### 5 7021-8 ####[facility] LABCLIA [id number] [place] [address] Nucleated RBC/100 WBC (Bld) [Ratio] 0.0 /100 WBC Normal [facility] Comment on above: Order Comment: Speci men Type: BLOOD SPECIMENOrdering Facility: [facility] Address: [address] [place] [address] Performed By: #### 5 7021-8 ####[facility] LABCLIA [id number] [place] [address] Platelet mean volume (Bld) [Entitic vol] 10.2 fL Normal 9.0-12.7 [facility] Comment on above: Order Comment: Speci men Type: BLOOD SPECIMENOrdering Facility: [facility] Address: [address] [place] [address] Performed By: #### 5 7021-8 ####[facility] LABIA [id number] [place] [address] Platelets (Bld) [#/Vol] 203 10*3/uL Normal 150-400 [facility] Comment on above: Order Comment: Speci men Type: BLOOD SPECIMENOrdering Facility: [facility] Address: [address] [place] [address] Performed By: #### 5 7021-8 ####[facility] LABIA [id number] [place] [address] RBC (Bld) [#/Vol] 3.75 10*6/uL Low 4.20-6.00 [facility] Comment on above: Order Comment: Speci men Type: BLOOD SPECIMENOrdering Facility: [facility] Address: [address] [place] [address] Performed By: #### 5 7021-8 ####[facility] LABIA [id number] [place] [address] WBC (Bld) [#/Vol] 4.01 10*3/uL Normal 3.70-11.00 [facility] Comment on above: Order Comment: Speci men Type: BLOOD SPECIMENOrdering Facility: [facility] Address: [address] [place] [address] Performed By: #### 5 7021-8 ####[facility] LABIA [id number] [place] [address] CNOVSPon 11-27-2023 CNOVSP Visit (SP) Office (HEMAS[place]) ZACH MANUEL ([id number]) 1945 M Date Time Provider Department 11/27/23 1:00 PM CLAUDIA WILSON During your visit today, we recorded the following information about you: Temperature Pulse Respiration Blood pressure 97.9 degrees 65/minute 18/minute 154/51 Weight Height 87.7 kg 1.753 m Claudia Wilson APRN.ELECTRONICS ENGINEERING MANAGER 12/05/2023 11:23 AM Signed PATIENT NAME: Zach [...] mg capsule pioglitazone (ACTOS) 30 mg tablet tobramycin-dexamethaso ne (TOBRADEX) ophthalmic suspension INSTILL 2 DROPS INTO AFFECTED EYE 4 TIMES DAILY ilzwntlk-ksyztnrnd-wvx rocortisone (CORTISPORIN) otic solution INSTILL 3 4 DROPS [...] mellitus (HCC) Hyperlipidemia Monoclonal gammopathy 11/2002 IgG [place] Multiple myeloma (HCC) 2002 Ulcerative colitis (HCC) [...] core b (more content not included)... Normal [facility] IMMUNOFIXATION SCREEN, SERUM on 11-27-2023 INTERPRETATION (MPA) Atypical restricted bands are present in the IgG and kappa regions. Consistent with IgG kappa monoclonal gammopathy. Normal [facility] Comment on above: Order Comment: Speci men Type: BLOOD SPECIMEN [facility] Address: [address] [place] [address] Performed By: #### K LFRS #### [facility] CLIA [id number] [address] [place] [address] [place] MPA RESULT M protein is present. Abnormal No M p rotein is identified. [facility] Comment on above: Order Comment: Speci men Type: BLOOD SPECIMEN [facility] Address: [address] [place] [address] Performed By: #### K LFRS #### [facility] CLIA [id number] [address] [place] [address] OF [place] STAFF REVIEW (MPA) Reviewed by Andrew Langford M.D. Normal [facility] Comment on above: Order Comment: Speci men Type: BLOOD SPECIMEN [facility] Address: [address] [place] [address] Performed By: #### K LFRS #### [facility] CLIA [id number] [place] [address] [place] IMMUNOGLOBULINS GAMon 2023 IgA [Mass/Vol] 73 mg/dL Normal 70-400 [facility] Comment on above: Order Comment: Speci men Type: BLOOD SPECIMENOrdering Facility: [facility] Address: [address] [place] [address] Performed By: #### S ERIMM ####[facility] LABCLIA [id number] [place] [address] [place] IgG [Mass/Vol] 1034 mg/dL Normal 700-1600 [facility] Comment on above: Order Comment: Speci men Type: BLOOD SPECIMENOrdering Facility: [facility] Address: [address] [place] [address] Performed By: #### S ERIMM ####[facility] LABCLIA [id number] [place] [address] [place] IgM [Mass/Vol] 17 mg/dL Low 40-230 [facility] Comment on above: Order Comment: Speci men Type: BLOOD SPECIMENOrdering Facility: [facility] Address: [address] [place] [address] Performed By: #### S ERIMM ####[facility] LABCLIA [id number] [place] [address] [place] KAPPA/DANIELS,FREE,SERon 2023 Immunoglobulin light chains.kappa.free (S) [Mass/Vol] 34.8 mg/L High 3.3-19.4 [facility] Comment on above: Order Comment: Speci men Type: BLOOD SPECIMEN [facility] Address: [address] [place] [address] Result Comment: Rare ly, increased serum free light chains levels may not be detected or accurately quantified due to prozone phenomenon or in high viscosity samples using this immunoturbidimetric assay. Correlation with other laboratory results and clinical findings is recommended. The [place] Free Light Chain was performed using the Binding Site Optilite immunoturbidimetric method. Result obtained with different assay methods or kits cannot be used interchangeably. Performed By: #### K LFRS #### [facility] CLIA [id number] [address] [place] [address] [place] Immunoglobulin light chains.kappa/Immun oglobulin light chains.lambda (S) [Mass ratio] 1.69 High 0.26-1.65 [facility] Comment on above: Order Comment: Speci men Type: BLOOD SPECIMEN [facility] Address: [address] [place] [address] Performed By: #### K LFRS #### [facility] CLIA [id number] [address] [place] [address] [place] Immunoglobulin light chains.lambda.free [Mass/Vol] 20.6 mg/L Normal 5.7-26.3 [facility] Comment on above: Order Comment: Speci men Type: BLOOD SPECIMEN [facility] Address: [address] [place] [address] Result Comment: Rare ly, increased serum free [...] used interchangeably. Performed By: #### K LFRS #### [facility] CLIA [id number] [address] [place] [address] [place] PROTEIN ELECTROPHORESIS SERU M WITH TOÑITO (P)on 11-27-2023 Albumin [Mass/Vol] 3.89 g/dL Normal 3.43-5.41 [facility] Comment on above: Order Comment: Speci men Type: BLOOD SPECIMENOrdering Facility: [facility] Address: [address] [place] [address] Performed By: #### L [id number] ####[facility] LABIA [id number] [place] [address] [place] Alpha 1 globulin Elph [Mass/Vol] 0.19 g/dL Normal 0.18-0.43 [facility] Comment on above: Order Comment: Speci men Type: BLOOD SPECIMENOrdering Facility: [facility] Address: [address] [place] [address] Performed By: #### L [id number] ####[facility] [id number] [place] [address] [place] Alpha 2 globulin Elph [Mass/Vol] 0.60 g/dL Normal 0.42-0.98 [facility] Comment on above: Order Comment: Speci men Type: BLOOD SPECIMENOrdering Facility: [facility] Address: [address] [place] [address] Performed By: #### L [id number] ####[facility] [id number] [place] [address] [place] Beta globulin Elph [Mass/Vol] 0.65 g/dL Normal 0.61-1.17 [facility] Comment on above: Order Comment: Speci men Type: BLOOD SPECIMENOrdering Facility: [facility] Address: [address] [place] [address] Performed By: #### L [id number] ####[facility] [id number] [place] [address] [place] COMMENT (SERUM PROT ELECTRO) Monoclonal Protein analysis (immunofixation) is not indicated. Normal [facility] Comment on above: Order Comment: Speci men Type: BLOOD SPECIMENOrdering Facility: [facility] Address: [address] [place] [address] Performed By: #### L [id number] ####[facility] [id number] [place] [address] [place] Gamma globulin Elph [Mass/Vol] 0.86 g/dL Normal 0.53-1.51 [facility] Comment on above: Order Comment: Speci men Type: BLOOD SPECIMENOrdering Facility: [facility] Address: [address] [place] [address] Performed By: #### L [id number] ####[facility] LABCLIA [id number] [place] [address] [place] INTERPRETATION COMMENT FOR PROTEIN ELECTROPHORESIS See separate immunofixation report for characterization of monoclonal gammopathy. Normal [facility] Comment on above: Order Comment: Speci men Type: BLOOD SPECIMENOrdering Facility: [facility] Address: [address] [place] [address] Performed By: #### L [id number] ####[facility] LABIA [id number] [place] [address] [place] M-PROTEIN LOCATION Gamma Fraction 1 Normal [facility] Comment on above: Order Comment: Speci men Type: BLOOD SPECIMENOrdering Facility: [facility] Address: [address] [place] [address] Performed By: #### L [id number] ####[facility] LABIA [id number] [place] [address] [place] Protein Fractions [Interp] An M protein is identified on protein electrophoresis. Abnormal No definitive M protein is identified on protein electrophores is. [facility] Comment on above: Order Comment: Speci men Type: BLOOD SPECIMENOrdering Facility: [facility] Address: [address] [place] [address] Performed By: #### L [id number] ####[facility] LABIA [id number] [place] [address] [place] Protein.monoclonal Elph [Mass/Vol] 0.60 g/dL High <=0.00 [facility] Comment on above: Order Comment: Speci men Type: BLOOD SPECIMENOrdering Facility: [facility] Address: [address] [place] [address] Performed By: #### L [id number] ####[facility] LABIA [id number] [place] [address] [place] SPE STAFF REVIEW Reviewed by Andrew Langford M.D. [facility] Comment on above: Order Comment: Speci men Type: BLOOD SPECIMENOrdering Facility: [facility] Address: [address] [place] [address] Performed By: #### L [id number] ####[facility] LABIA [id number] [place] [address] [place] Prot SerPl-mCncon 11-27-2023 Protein [Mass/Vol] 6.2 g/dL Low 6.3-8.0 [facility] Comment on above: Order Comment: Speci men Type: BLOOD SPECIMENOrdering Facility: [facility] Address: [address] [place] [address] Performed By: #### 2 885-2 ####[facility] LABIA [id number] [address] [place] CNPVangie 11-23-2023 ESTELLA Telephone (STELLA) ZACH MANUEL ([id number]) 1945 M Date Time Provider Department 11/23/23 [...] Fully Assessed Reason for Visit: Lab Orders [8658] Primary Visit Diagnosis:Multiple myeloma not having achieved remission (HCC) [C90.00] Order(s):CBC + DIFF [SQCBCDIF] Order #: [id number] FUTURE BASIC METABOLIC PNL [SQBMP] Order #: [id number] FUTURE PROT ELECT SERUM WITH TOÑITO AND INTERP [SQSEPGRX] Order #: [id number] FUTURE MONOCLONAL PROTEIN, SERUM (BLOOD) [SQSERMPA] Order #: [id number] FUTURE Prescriptions as of 11/26/2023 - lenalidomide [...] - pioglitazone (ACTOS) 30 mg tablet - tobramycin-dexamethaso ne (TOBRADEX) ophthalmic suspension INSTILL 2 DROPS INTO AFFECTED EYE 4 TIMES DAILY - hcojqade-xynrkvbmc-ygq rocortisone (CORTISPORIN) otic solution INSTILL 3 4 DROPS [...] Type 2 diabetes mellitus without complication (*10/20/2015 jail current use of systemic steroids [Z79*10/20/2015 Left inguinal hernia [K40.90] 10/20/2015 Former smoker [Z87.891] 10/20/2015 Elevated prostate specific antigen (PSA) [R97.2*03/19/2020 Stage 3 chronic kidney disease, unspecified whe*03/06/2023 Encounter Status:Closed by URIEL GUNTER on 11/26/23 Normal [facility] Basic metabolic 2000 panelon 08-28-2023 Anion gap [Moles/Vol] 9 mmol/L 9 - 18 mmol/L [facility] Calcium [Mass/Vol] 9.0 mg/dL 8.5 - 10. 2 mg/dL [facility] Chloride [Moles/Vol] 102 mmol/L 97 - 105 mmol/L [facility] CO2 [Moles/Vol] 27 mmol/L 22 - 30 mmol/L [facility] Creatinine [Mass/Vol] 1.52 mg/dL High 0.73 - 1.22 mg/dL [facility] Estimated Glomerular Filtration Rate 47 mL/min/1.73m Low >=60 mL/min/1.73m [facility] Glucose [Mass/Vol] 253 mg/dL High 74 - 99 mg/dL [facility] Potassium [Moles/Vol] 4.5 mmol/L 3.7 - 5.1 mmol/L [facility] Sodium [Moles/Vol] 138 mmol/L 136 - 144 mmol/L [facility] Urea nitrogen [Mass/Vol] 29 mg/dL High 9 - 24 mg/dL [facility] Anion gap [Moles/Vol] 9 mmol/L Normal 9-18 [facility] Comment on above: Order Comment: Speci men Type: BLOOD SPECIMENOrdering Facility: [facility] Address: [address] [place] [address] Performed By: #### 2 4321-2 ####[facility]CLIA [id number] [place] [address] Calcium [Mass/Vol] 9.0 mg/dL Normal 8.5-10.2 [facility] Comment on above: Order Comment: Speci men Type: BLOOD SPECIMENOrdering Facility: [facility] Address: [address] [place] [address] Performed By: #### 2 4321-2 ####[facility]CLIA [id number] [place] [address] Chloride [Moles/Vol] 102 mmol/L Normal 97-105 [facility] Comment on above: Order Comment: Speci men Type: BLOOD SPECIMENOrdering Facility: [facility] Address: [address] [place] [address] Performed By: #### 2 4321-2 ####[facility]CLIA [id number] [place] [address] CO2 [Moles/Vol] 27 mmol/L Normal 22-30 [facility] Comment on above: Order Comment: Speci men Type: BLOOD SPECIMENOrdering Facility: [facility] Address: [address] [place] [address] Performed By: #### 2 4321-2 ####[facility]CLIA [id number] [place] [address] Creatinine [Mass/Vol] 1.52 mg/dL High 0.73-1.22 [facility] Comment on above: Order Comment: Speci men Type: BLOOD SPECIMENOrdering Facility: [facility] Address: [address] [place] [address] Performed By: #### 2 4321-2 ####[facility] [id number] [place] [address] Creatinine and Glomerular filtration rate.predicted panel (S/P/Bld) 47 mL/min/1.73m??? Low >=60 [facility] Comment on above: Order Comment: Michelle bueno Type: BLOOD SPECIMENOrdering Facility: [facility] Address: [address] [place] [id number] Result Comment: Chanda mated Glomerular Filtration Rate [...] actual GFR. Performed By: #### 2 4321-2 ####[facility]CL[facility] [id number] [place] [address] Glucose [Mass/Vol] 253 mg/dL High 74-99 [facility] Comment on above: Order Comment: Michelle bueno Type: BLOOD SPECIMENOrdering Facility: [facility] Address: [place] [address] Result Comment: The [place] [employer] (ADA) provides guidance for cutoff [...] Standards of Medical Care in Diabetes 2016, [place] [employer]. Diabetes Care. 2016.39(Suppl 1). Performed By: #### 2 4321-2 ####[facility] [id number] [place] [address] Potassium [Moles/Vol] 4.5 mmol/L Normal 3.7-5.1 [facility] Comment on above: Order Comment: Michelle bueno Type: BLOOD SPECIMENOrdering Facility: [facility] Address: [address] [place] [id number] Performed By: #### 2 4321-2 ####[facility] [id number] [place] [address] Sodium [Moles/Vol] 138 mmol/L Normal 136-144 [facility] Comment on above: Order Comment: Speci men Type: BLOOD SPECIMENOrdering Facility: [facility] Address: [address] [place] [address] Performed By: #### 2 4321-2 ####[facility] [id number] [place] [address] Urea nitrogen [Mass/Vol] 29 mg/dL High 9-24 [facility] Comment on above: Order Comment: Speci men Type: BLOOD SPECIMENOrdering Facility: [facility] Address: [address] [place] [address] Performed By: #### 2 4321-2 ####[facility]IA [id number] [place] [address] CBC W Auto Differential pane l (Bld)on 08-28-2023 Basophils (Bld) [#/Vol] 0.05 10*3/uL <0.11 k/uL [facility] Basophils/100 WBC (Bld) 0.7 % [facility] Differential cell count method Nom (Bld) Auto [facility] Eosinophils (Bld) [#/Vol] 0.07 10*3/uL <0.46 k/uL [facility] Eosinophils/100 WBC (Bld) 1.0 % [facility] Erythrocyte distribution width (RBC) [Ratio] 14.0 % 11.5 - 15.0 % [facility] Hematocrit (Bld) [Volume fraction] 39.5 % 39.0 - 51.0 % [facility] ic Hemoglobin (Bld) [Mass/Vol] 13.7 g/dL 13.0 - 17.0 g/dL [facility] Immature granulocytes (Bld) [#/Vol] 0.03 10*3/uL <0.10 k/uL [facility] Immature granulocytes/100 WBC (Bld) 0.4 % [facility] Lymphocytes (Bld) [#/Vol] 0.82 10*3/uL Low 1.00 - 4.00 k/uL [facility] Lymphocytes/100 WBC (Bld) 11.7 % [facility] MCH (RBC) [Entitic mass] 34.7 pg High 26.0 - 34.0 pg [facility] MCHC (RBC) [Mass/Vol] 34.7 g/dL 30.5 - 36.0 g/dL [facility] MCV (RBC) [Entitic vol] 100.0 fL 80.0 - 100.0 fL [facility] Monocytes (Bld) [#/Vol] 1.05 10*3/uL High <0.87 k/uL [facility] Monocytes/100 WBC (Bld) 15.0 % [facility] Neutrophils (Bld) [#/Vol] 4.96 10*3/uL 1.45 - 7.50 k/uL [facility] Neutrophils/100 WBC (Bld) 71.2 % [facility] Nucleated RBC (Bld) [#/Vol] <0.01 k/uL [facility] Nucleated RBC/100 WBC (Bld) [Ratio] 0.0 /100 WBC [facility] ic Platelet mean volume (Bld) [Entitic vol] 9.8 fL 9.0 - 12.7 fL [facility] Platelets (Bld) [#/Vol] 207 10*3/uL 150 - 400 k/uL [facility] RBC (Bld) [#/Vol] 3.95 10*6/uL Low 4.20 - 6.0 0 m/uL [facility] WBC (Bld) [#/Vol] 6.98 10*3/uL 3.70 - 11. 00 k/uL [facility] Basophils (Bld) [#/Vol] 0.05 10*3/uL Normal <0.11 [facility] Comment on above: Order Comment: Speci men Type: BLOOD SPECIMENOrdering Facility: [facility] Address: [address] [place] [address] Performed By: #### 5 7021-8 ####[facility] LABCLIA [id number] [place] [address] Basophils/100 WBC (Bld) 0.7 % Normal [facility] Comment on above: Order Comment: Speci men Type: BLOOD SPECIMENOrdering Facility: [facility] Address: [address] [place] [address] Performed By: #### 5 7021-8 ####[facility] LABCLIA [id number] [place] [address] Differential cell count method Nom (Bld) Auto Normal [facility] Comment on above: Order Comment: Speci men Type: BLOOD SPECIMENOrdering Facility: [facility] Address: [address] [place] [address] Performed By: #### 5 7021-8 ####[facility] LABCLIA [id number] [place] [address] Eosinophils (Bld) [#/Vol] 0.07 10*3/uL Normal <0.46 [facility] Comment on above: Order Comment: Speci men Type: BLOOD SPECIMENOrdering Facility: [facility] Address: [address] [place] [address] Performed By: #### 5 7021-8 ####[facility] LABCLIA [id number] [place] [address] Eosinophils/100 WBC (Bld) 1.0 % Normal [facility] Comment on above: Order Comment: Speci men Type: BLOOD SPECIMENOrdering Facility: [facility] Address: [address] [place] [address] Performed By: #### 5 7021-8 ####[facility] LABCLIA [id number] [place] [address] Erythrocyte distribution width (RBC) [Ratio] 14.0 % Normal 11.5-15.0 [facility] Comment on above: Order Comment: Speci men Type: BLOOD SPECIMENOrdering Facility: [facility] Address: [address] [place] [address] Performed By: #### 5 7021-8 ####[facility] LABCLIA [id number] [place] [address] Hematocrit (Bld) [Volume fraction] 39.5 % Normal 39.0-51.0 [facility] Comment on above: Order Comment: Speci men Type: BLOOD SPECIMENOrdering Facility: [facility] Address: [address] [place] [address] Performed By: #### 5 7021-8 ####[facility] LABCLIA [id number] [place] [address] Hemoglobin (Bld) [Mass/Vol] 13.7 g/dL Normal 13.0-17.0 [facility] Comment on above: Order Comment: Speci men Type: BLOOD SPECIMENOrdering Facility: [facility] Address: [address] [place] [address] Performed By: #### 5 7021-8 ####[facility] LABCLIA [id number] [place] [address] Immature granulocytes (Bld) [#/Vol] 0.03 10*3/uL Normal <0.10 [facility] Comment on above: Order Comment: Speci men Type: BLOOD SPECIMENOrdering Facility: [facility] Address: [address] [place] [address] Performed By: #### 5 7021-8 ####[facility] LABCLIA [id number] [place] [address] Immature granulocytes/100 WBC (Bld) 0.4 % Normal [facility] Comment on above: Order Comment: Speci men Type: BLOOD SPECIMENOrdering Facility: [facility] Address: [address] [place] [address] Performed By: #### 5 7021-8 ####[facility] LABCLIA [id number] [place] [address] Lymphocytes (Bld) [#/Vol] 0.82 10*3/uL Low 1.00-4.00 [facility] Comment on above: Order Comment: Speci men Type: BLOOD SPECIMENOrdering Facility: [facility] Address: [address] [place] [address] Performed By: #### 5 7021-8 ####[facility] LABCLIA [id number] [place] [address] Lymphocytes/100 WBC (Bld) 11.7 % Normal [facility] Comment on above: Order Comment: Speci men Type: BLOOD SPECIMENOrdering Facility: [facility] Address: [address] [place] [address] Performed By: #### 5 7021-8 ####[facility] LABCLIA [id number] [place] [address] MCH (RBC) [Entitic mass] 34.7 pg High 26.0-34.0 [facility] Comment on above: Order Comment: Speci men Type: BLOOD SPECIMENOrdering Facility: [facility] Address: [address] [place] [address] Performed By: #### 5 7021-8 ####[facility] LABCLIA [id number] [place] [address] MCHC (RBC) [Mass/Vol] 34.7 g/dL Normal 30.5-36.0 [facility] Comment on above: Order Comment: Speci men Type: BLOOD SPECIMENOrdering Facility: [facility] Address: [address] [place] [address] Performed By: #### 5 7021-8 ####[facility] LABCLIA [id number] [place] [address] MCV (RBC) [Entitic vol] 100.0 fL Normal 80.0-100.0 [facility] Comment on above: Order Comment: Speci men Type: BLOOD SPECIMENOrdering Facility: [facility] Address: [address] [place] [address] Performed By: #### 5 7021-8 ####[facility] LABIA [id number] [place] [address] Monocytes (Bld) [#/Vol] 1.05 10*3/uL High <0.87 [facility] Comment on above: Order Comment: Speci men Type: BLOOD SPECIMENOrdering Facility: [facility] Address: [address] [place] [address] Performed By: #### 5 7021-8 ####[facility] LABCLIA [id number] [place] [address] Monocytes/100 WBC (Bld) 15.0 % Normal [facility] Comment on above: Order Comment: Speci men Type: BLOOD SPECIMENOrdering Facility: [facility] Address: [address] [place] [address] Performed By: #### 5 7021-8 ####[facility] LABCLIA [id number] [place] [address] Neutrophils (Bld) [#/Vol] 4.96 10*3/uL Normal 1.45-7.50 [facility] Comment on above: Order Comment: Speci men Type: BLOOD SPECIMENOrdering Facility: [facility] Address: [address] [place] [address] Performed By: #### 5 7021-8 ####[facility] LABCLIA [id number] [place] [address] Neutrophils/100 WBC (Bld) 71.2 % Normal [facility] Comment on above: Order Comment: Speci men Type: BLOOD SPECIMENOrdering Facility: [facility] Address: [address] [place] [address] Performed By: #### 5 7021-8 ####[facility] LABCLIA [id number] [place] [address] Nucleated RBC (Bld) [#/Vol] 10*3/uL Normal <0.01 [facility] Comment on above: Order Comment: Speci men Type: BLOOD SPECIMENOrdering Facility: [facility] Address: [address] [place] [address] Performed By: #### 5 7021-8 ####[facility] LABCLIA [id number] [place] [address] Nucleated RBC/100 WBC (Bld) [Ratio] 0.0 /100 WBC Normal [facility] Comment on above: Order Comment: Speci men Type: BLOOD SPECIMENOrdering Facility: [facility] Address: [address] [place] [address] Performed By: #### 5 7021-8 ####[facility] LABCLIA [id number] [place] [address] Platelet mean volume (Bld) [Entitic vol] 9.8 fL Normal 9.0-12.7 [facility] Comment on above: Order Comment: Speci men Type: BLOOD SPECIMENOrdering Facility: [facility] Address: [address] [place] [address] Performed By: #### 5 7021-8 ####[facility] LABCLIA [id number] [place] [address] Platelets (Bld) [#/Vol] 207 10*3/uL Normal 150-400 [facility] Comment on above: Order Comment: Speci men Type: BLOOD SPECIMENOrdering Facility: [facility] Address: [address] [place] [address] Performed By: #### 5 7021-8 ####[facility] LABCLIA [id number] [place] [address] RBC (Bld) [#/Vol] 3.95 10*6/uL Low 4.20-6.00 [facility] Comment on above: Order Comment: Speci men Type: BLOOD SPECIMENOrdering Facility: [facility] Address: [address] [place] [address] Performed By: #### 5 7021-8 ####[facility] LABIA [id number] [place] [address] WBC (Bld) [#/Vol] 6.98 10*3/uL Normal 3.70-11.00 [facility] Comment on above: Order Comment: Speci men Type: BLOOD SPECIMENOrdering Facility: [facility] Address: [address] [place] [address] Performed By: #### 5 7021-8 ####[facility] [id number] [place] [address] CNOVSPon 08-28-2023 CNOVSP Visit (SP) Office ([place]) ZACH MANUEL ([id number]) 1945 M Date Time Provider Department 08/28/23 [...] mg capsule pioglitazone (ACTOS) 30 mg tablet tobramycin-dexamethaso ne (TOBRADEX) ophthalmic suspension INSTILL 2 DROPS INTO AFFECTED EYE 4 TIMES DAILY qhvltenc-aisyauhlm-jod rocortisone (CORTISPORIN) otic solution INSTILL 3 4 DROPS [...] mellitus (HCC) Hyperlipidemia 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 Normal [facility] IMMUNOFIXATION SCREEN, SERUM on 08-28-2023 INTERPRETATION (MPA) Atypical restricted bands are present in the IgG and kappa regions. Consistent with IgG kappa monoclonal gammopathy. Normal [facility] Comment on above: Order Comment: Speci men Type: BLOOD SPECIMENOrdering Facility: [facility] Address: [address] [place] [address] Performed By: #### I FES ####[facility] LABCLIA [id number] [address] [place] MPA RESULT M protein is present. Abnormal No M p rotein is identified. [facility] Comment on above: Order Comment: Speci men Type: BLOOD SPECIMENOrdering Facility: [facility] Address: [address] [place] [address] Performed By: #### I FES ####[facility] LABCLIA [id number] [address] [place] STAFF REVIEW (MPA) Reviewed by Dea Gutierrez M.D., Ph.D Normal [facility] Comment on above: Order Comment: Speci men Type: BLOOD SPECIMENOrdering Facility: [facility] Address: [address] [place] [address] Performed By: #### I FESC ####[facility] LABCLIA [id number] [place] [address] [place] IMMUNOGLOBULINS GAMon 2022 IgA [Mass/Vol] 84 mg/dL Normal 70-400 [facility] Comment on above: Order Comment: Speci men Type: BLOOD SPECIMEN [facility] Address: [facility] [place] [address] Performed By: #### K LFRS #### [facility] CLIA [id number] [address] [place] [address] [place] IgG [Mass/Vol] 1055 mg/dL Normal 700-1600 [facility] Comment on above: Order Comment: Speci men Type: BLOOD SPECIMEN [facility] Address: [address] [place] [address] Performed By: #### K LFRS #### [facility] CLIA [id number] [address] [place] [address] [place] IgM [Mass/Vol] 18 mg/dL Low 40-230 [facility] Comment on above: Order Comment: Speci men Type: BLOOD SPECIMEN [facility] Address: [address] [place] [address] Performed By: #### K LFRS #### [facility] CLIA [id number] [address] [place] [address] [place] KAPPA/DANIELS,FREE,SERon 2022 Immunoglobulin light chains.kappa.free (S) [Mass/Vol] 32.6 mg/L High 3.3-19.4 [facility] Comment on above: Order Comment: Speci men Type: BLOOD SPECIMEN [facility] Address: [address] [place] [address] Result Comment: Rare ly, increased serum free light chains levels may not be detected or accurately quantified due to prozone phenomenon or in high viscosity samples using this immunoturbidimetric assay. Correlation with other laboratory results and clinical findings is recommended. The [place] Free Light Chain was performed using the Binding Site Optilite immunoturbidimetric method. Result obtained with different assay methods or kits cannot be used interchangeably. Performed By: #### K LFRS #### [facility] CLIA [id number] [address] [place] [address] [place] Immunoglobulin light chains.kappa/Immun oglobulin light chains.lambda (S) [Mass ratio] 1.87 High 0.26-1.65 [facility] Comment on above: Order Comment: Speci men Type: BLOOD SPECIMEN [facility] Address: [address] [place] [address] Performed By: #### K LFRS #### [facility] CLIA [id number] [address] [place] [address] [place] Immunoglobulin light chains.lambda.free [Mass/Vol] 17.4 mg/L Normal 5.7-26.3 [facility] Comment on above: Order Comment: Speci men Type: BLOOD SPECIMEN [facility] Address: [address] [place] [address] Result Comment: Rare ly, increased serum free [...] used interchangeably. Performed By: #### K LFRS #### [facility] CLIA [id number] [address] [place] [address] [place] PROTEIN ELECTROPHORESIS SERU M WITH TOÑITO (P)on 08-28-2023 Albumin [Mass/Vol] 3.88 g/dL Normal 3.43-5.41 [facility] Comment on above: Order Comment: Speci men Type: BLOOD SPECIMENOrdering Facility: [facility] Address: [address] [place] [address] Performed By: #### L [id number] ####[facility] LABIA [id number] [place] [address] [place] Alpha 1 globulin Elph [Mass/Vol] 0.23 g/dL Normal 0.18-0.43 [facility] Comment on above: Order Comment: Speci men Type: BLOOD SPECIMENOrdering Facility: [facility] Address: [address] [place] [address] Performed By: #### L [id number] ####[facility] [id number] [place] [address] [place] Alpha 2 globulin Elph [Mass/Vol] 0.61 g/dL Normal 0.42-0.98 [facility] Comment on above: Order Comment: Speci men Type: BLOOD SPECIMENOrdering Facility: [facility] Address: [address] [place] [address] Performed By: #### L [id number] ####[facility] LABIA [id number] [place] [address] [place] Beta globulin Elph [Mass/Vol] 0.70 g/dL Normal 0.61-1.17 [facility] Comment on above: Order Comment: Speci men Type: BLOOD SPECIMENOrdering Facility: [facility] Address: [address] [place] [address] Performed By: #### L [id number] ####[facility] LABIA [id number] [place] [address] [place] COMMENT (SERUM PROT ELECTRO) Monoclonal Protein analysis (immunofixation) is not indicated. Normal [facility] Comment on above: Order Comment: Speci men Type: BLOOD SPECIMENOrdering Facility: [facility] Address: [address] [place] [address] Performed By: #### L [id number] ####[facility] LABIA [id number] [place] [address] [place] Gamma globulin Elph [Mass/Vol] 0.98 g/dL Normal 0.53-1.51 [facility] Comment on above: Order Comment: Speci men Type: BLOOD SPECIMENOrdering Facility: [facility] Address: [address] [place] [address] Performed By: #### L [id number] ####[facility] LABIA [id number] [place] [address] [place] INTERPRETATION COMMENT FOR PROTEIN ELECTROPHORESIS See separate immunofixation report for characterization of monoclonal gammopathy. Normal [facility] Comment on above: Order Comment: Speci men Type: BLOOD SPECIMENOrdering Facility: [facility] Address: [address] [place] [address] Performed By: #### L [id number] ####[facility] LABIA [id number] [place] [address] [place] M-PROTEIN LOCATION Gamma Fraction 1 Normal [facility] Comment on above: Order Comment: Speci men Type: BLOOD SPECIMENOrdering Facility: [facility] Address: [address] [place] [address] Performed By: #### L [id number] ####[facility] LABIA [id number] [place] [address] [place] Protein Fractions [Interp] An M protein is identified on protein electrophoresis. Abnormal No definitive M protein is identified on protein electrophores is. [facility] Comment on above: Order Comment: Speci men Type: BLOOD SPECIMENOrdering Facility: [facility] Address: [address] [place] [address] Performed By: #### L [id number] ####[facility] LABIA [id number] [place] [address] [place] Protein.monoclonal Elph [Mass/Vol] 0.66 g/dL High <=0.00 [facility] Comment on above: Order Comment: Speci men Type: BLOOD SPECIMENOrdering Facility: [facility] Address: [place] [address] Performed By: #### L [id number] ####[facility] LABCLIA [id number] [address] [place] SPE STAFF REVIEW Reviewed by Dea Gutierrez M.D., Ph.D Normal [facility] Comment on above: Order Comment: Speci men Type: BLOOD SPECIMENOrdering Facility: [facility] Address: [address] [place] [address] Performed By: #### L [id number] ####[facility] LABCLIA [id number] [place] [address] [place] Prot SerPl-mCncon 08-28-2023 Protein [Mass/Vol] 6.4 g/dL Normal 6.3-8.0 [facility] Comment on above: Order Comment: Speci men Type: BLOOD SPECIMENOrdering Facility: [facility] Address: [address] [place] [address] Performed By: #### 2 885-2 ####[facility] LABCLIA [id number] [address] [place] Bree 06-20-2023 ESTELLA Telephone (HEMASA) ZACH MANUEL ([id number]) 1945 M Date Time Provider Department 06/20/23 [...] - pioglitazone (ACTOS) 30 mg tablet - tobramycin-dexamethaso ne (TOBRADEX) ophthalmic suspension INSTILL 2 DROPS INTO AFFECTED EYE 4 TIMES DAILY - zuwflzvq-metgigdue-lsm rocortisone (CORTISPORIN) otic solution INSTILL 3 4 DROPS [...] Type 2 diabetes mellitus without complication (*10/20/2015 jail current use of systemic steroids [Z79*10/20/2015 Left inguinal hernia [K40.90] 10/20/2015 Former smoker [Z87.891] 10/20/2015 Elevated prostate specific antigen (PSA) [R97.2*03/19/2020 Stage 3 chronic kidney disease, unspecified whe*03/06/2023 Encounter Status:Closed by MARY KAY [facility]AND [facility]23 [facility]ACH [facility]UEL ([id number]) 1945 M Date Time Provider Department 06/18/23 MARY KAY ROLAND [place] During your visit today, we recorded the following information about you: Mary Kay Roland RN 06/18/2023 3:14 PM Signed Pt requests monthly refill of Revlimid to [facility]. BRM: pended as previously ordered; please sign if agreeable. Mary Kay Roland RN Allergies As of Date: 06/18/2023 Noted Allergy Reaction AZITHROMYCIN 07/12/2018 16 - Unknown ERTHROMYCIN (ERYTHROMYCIN) 12/05/2016 16 - Unknown SULFA (SULFONAMIDE ANTIBIOTICS) 09/19/2012 16 - Unknown TOBRAMYCIN 03/08/2020 14 - Other: See Comments Comments: made condition worse Date Reviewed: 05/29/2023 Reviewed by: Pieter December - Fully Assessed Reason for Visit: Orders [...] - pioglitazone (ACTOS) 30 mg tablet - tobramycin-dexamethaso ne (TOBRADEX) ophthalmic suspension INSTILL 2 DROPS INTO AFFECTED EYE 4 TIMES DAILY - abzzsapa-giaeetgof-shb rocortisone (CORTISPORIN) otic solution INSTILL 3 4 DROPS [...] Type 2 diabetes mellitus without complication (*10/20/2015 jail current use of systemic steroids [Z79*10/20/2015 Left [...] Status:Closed by MARY KAY ROLAND on 06/19/23 [facility] Tele[facility] ([place]AS[place]) ZACH MANUEL ([id number]) 1945 M Date Time Provider Department 05/31/23 MARY KAY ROLAND [place] During your visit [...] December - Fully Assessed Reason for Visit: Results [...] - pioglitazone (ACTOS) 30 mg tablet - tobramycin-dexamethaso ne (TOBRADEX) ophthalmic suspension INSTILL 2 DROPS INTO AFFECTED EYE 4 TIMES DAILY - fpwnukbl-scdmfgysb-kwj rocortisone (CORTISPORIN) otic solution INSTILL 3 4 DROPS [...] Type 2 diabetes mellitus without complication (*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 Performed By: #### P SAFREE #### [facility] [address] [address] [address] Tigre Gant Prostate specific Ag [Mass/Vol] 4.4 ng/mL Critically high 0.0-4.0 [facility] Comment on above: Result Comment: Renee JONES methodology. . According to the [place] [employer], Serum PSA should decrease and [...] disease. Performed By: #### P SAFREE #### [facility] [address] [address] [address] Tigre Gant PSA, Free 1.14 ng/mL Normal N/A [facility] Comment on above: Result Comment: Renee JONES methodology. Performed By: #### P SAFREE #### [facility] [address] [address] [address] Tigre Gant PSA, FREE AND TOTAL RATIOon 03-16-2022 % Free PSA 19.1 % Normal [facility] Comment on above: Result Comment: The table [...] men. Performed By: #### A 1C #### [facility] [address] [place] [address] Dr. Tigre Gant PSA, Free 1.03 ng/mL Normal N/A [facility] Comment on above: Result Comment: Renee JONES methodology. Performed By: #### A 1C #### [facility] [address] [place] [address] Dr. Tigre Gant Prostate specific Ag [Mass/Vol] 5.4 ng/mL Critically high 0.0-4.0 [facility] Comment on above: Result Comment: Renee JONES methodology. . According to the [place] [employer], Serum PSA should decrease and [...] disease. Performed By: #### A 1C #### [facility] [address] [place] [address] Dr. Tigre Gant CBC AUTO DIFFon 06-21-2022 BASO # 0.1 103/ul Normal 0.0-0.1 [facility] Comment on above: Performed By: #### C BC #### [facility] [address] [place] [address] Dr. Tigre Gant Basophils/100 WBC (Bld) 2.6 % Critically high 0.2-2.0 [facility] Comment on above: Performed By: #### C BC #### [facility] [address] [place] [address] Dr. Tigre Gant EO # 0.4 103/ul Normal 0.0-0.7 [facility] Comment on above: Performed By: #### C BC #### [facility] [address] [place] [address] Dr. Tigre Gant Eosinophils/100 WBC (Bld) 7.7 % Critically high 0.9-7.0 [facility] Comment on above: Performed By: #### C BC #### [facility] [address] [place] [address] Dr. Tigre Gant Erythrocyte distribution width (RBC) [Ratio] 14.6 % Normal 11.0-15.0 [facility] Comment on above: Performed By: #### C BC #### [facility] [address] [place] [address] Dr. Tigre Gant Hematocrit (Bld) [Volume fraction] 39.0 % Critically low 42.0-54.0 [facility] Comment on above: Performed By: #### C BC #### [facility] [address] [place] [address] Dr. Tigre Gant Hemoglobin (Bld) [Mass/Vol] 12.9 g/dL Critically low 14.0-18.0 [facility] Comment on above: Performed By: #### C BC #### [facility] [address] [place] [address] Dr. Tigre Gant IG # 0.03 10e3/ul Normal 0.00-0.03 [facility] Comment on above: Performed By: #### C BC #### [facility] [address] [place] [address] Dr. Tigre Gant IG % 0.6 % Critically high 0.0-0.5 [facility] Comment on above: Performed By: #### C BC #### [facility] [address] [place] [address] Dr. Tigre Gant LYMPH # 1.0 103/ul Critically low 1.2-3.8 [facility] Comment on above: Performed By: #### C BC #### [facility] [address] [place] [address] Dr. Tigre Gant Lymphocytes/100 WBC (Bld) 19.9 % Critically low 20.5-60.0 [facility] Comment on above: Performed By: #### C BC #### [facility] [address] [place] [address] Dr. Tigre Gant MANUAL DIFF REQ NO Normal [facility] Comment on above: Performed By: #### C BC #### [facility] [address] [place] [address] Dr. Tigre Gant MCH (RBC) [Entitic mass] 33.7 pg Normal 25.9-34.0 [facility] Comment on above: Performed By: #### C BC #### [facility] [address] [place] [address] Dr. Tigre Gant MCHC (RBC) [Mass/Vol] 33.1 g/dL Normal 29.9-35.2 [facility] Comment on above: Performed By: #### C BC #### [facility] [address] [place] [address] Dr. Tigre Gant MCV (RBC) [Entitic vol] 101.8 fL Critically high 80.0-94.0 [facility] Comment on above: Performed By: #### C BC #### [facility] [address] [place] [address] Dr. Tigre Gant MONO # 0.7 103/ul Normal 0.3-0.8 [facility] Comment on above: Performed By: #### C BC #### [facility] [address] [place] [address] Dr. Tigre Gant Monocytes/100 WBC (Bld) 13.6 % Critically high 1.7-12.0 [facility] Comment on above: Performed By: #### C BC #### [facility] [address] [place] [address] Dr. Tigre Gant NEUT # 2.7 103/ul Normal 1.4-6.5 [facility] Comment on above: Performed By: #### C BC #### [facility] [address] [address] [address] Tigre Gant Neutrophils/100 WBC (Bld) 55.6 % Normal 43.0-75.0 [facility] Comment on above: Performed By: #### C BC #### [facility] [address] [place] [address] Dr. Tigre Gant Platelet mean volume (Bld) [Entitic vol] 10.7 fL Normal 9.5-13.5 [facility] Comment on above: Performed By: #### C BC #### [facility] [address] [place] [address] Dr. Tigre Gant PLT 209 103/ul Normal 150-450 [facility] Comment on above: Performed By: #### C BC #### [facility] [address] [place] [address] Dr. Tigre Gant RBC 3.83 106/ul Critically low 4.70-6.10 [facility] Comment on above: Performed By: #### C BC #### [facility] [address] [place] [address] Dr. Tigre Gant WBC 4.9 103/ul Normal 4.0-11.0 [facility] Comment on above: Performed By: #### C BC #### [facility] [address] [place] [address] Dr. Tigre Gant FREE T3on 03-14-2022 FREE T3 2.60 pg/mlL Normal 2.18-3.98 [facility] Comment on above: Performed By: #### A 1C #### [facility] [address] [place] [address] Dr. Tigre Gant GLYCOHEMOGLOBIN A1Con 2021 ADA RECOMMENDATION SEE BELOW Normal [facility] Comment on above: Result Comment: ADA RECOMMENDED LIMIT 4.0 - 6.0 ADA THERAPEUTIC TARGET < 7.0 ACTION SUGGESTED > 7.0 Performed By: #### A 1C #### [facility] [address] [place] [address] Dr. Tigre Gant Glucose [Mass/Vol] 189 mg/dL Normal [facility] Comment on above: Performed By: #### A 1C #### [facility] [address] [place] [address] Dr. Tigre Gant HbA1c (Bld) [Mass fraction] 8.2 % Critically high 4.5-6.2 [facility] Comment on above: Performed By: #### A 1C #### [facility] [address] [place] [address] Dr. Tigre Gant LIPID PROFILEon 03-14-2022 CHOL-HDL RATIO NORM SEE BELOW Normal [facility] Comment on above: Result Comment: 3.3 - 4.4 LOW RISK 4.4 - 7.1 AVERAGE RISK 7.1 - 11.0 MODERATE RISK >11.0 HIGH RISK Performed By: #### C MP, TSH, LIPID, FT3, T4 #### [facility] [address] [place] [address] Dr. Tigre Gant Cholesterol [Mass/Vol] 157 mg/dL Normal <=200 [facility] Comment on above: Performed By: #### C MP, TSH, LIPID, FT3, T4 #### [facility] [address] [place] [address] Dr. Tigre Gant Cholesterol in HDL [Mass/Vol] 62 mg/dL Critically high 40-60 [facility] Comment on above: Performed By: #### C MP, TSH, LIPID, FT3, T4 #### [facility] [address] [place] [address] Dr. Tigre aGnt Cholesterol in LDL [Mass/Vol] 62.8 mg/dL Normal [facility] Comment on above: Performed By: #### C MP, TSH, LIPID, FT3, T4 #### [facility] [address] [place] [address] Dr. Tigre Gant Cholesterol.total/ Cholesterol in HDL [Mass ratio] 2.5 {ratio} Normal [facility] Comment on above: Performed By: #### C MP, TSH, LIPID, FT3, T4 #### [facility] [address] [place] [address] Dr. Tigre Gant HDL NORMAL > or = 60 mg/dl - LO W CARDIOVASCULAR RISK <40 mg/dl - HIGH CARDIOVASCULAR RISK Normal [facility] Comment on above: Performed By: #### C MP, TSH, LIPID, FT3, T4 #### [facility] [address] [place] [address] Dr. Tigre Gant LDL CALC NORMAL SEE BELOW Normal [facility] Comment on above: Result Comment: <100 mg/dl OPTIMAL 100 - 129 mg/dl NEAR OR ABOVE OPTIMAL 130 - 159 mg/dl BORDERLINE HIGH 160 - 189 mg/dl HIGH >190 mg/dl VERY HIGH Performed By: #### C MP, TSH, LIPID, FT3, T4 #### [facility] [address] [place] [address] Dr. Tigre Gant Triglyceride [Mass/Vol] 161 mg/dL Critically high <=150 [facility] Comment on above: Performed By: #### C MP, TSH, LIPID, FT3, T4 #### [facility] [address] [place] [address] Dr. Tigre Gant VLDL CALC 32.2 mg/dL Normal [facility] Comment on above: Performed By: #### C MP, TSH, LIPID, FT3, T4 #### [facility] [address] [place] [address] Dr. Tigre Gant PROF 14(COMP METB)on 022 Albumin [Mass/Vol] 3.5 g/dL Normal 3.4-5.0 [facility] Comment on above: Performed By: #### C MP, TSH, LIPID, FT3, T4 #### [facility] [address] [place] [address] Dr. Tigre Gant Albumin/Globulin [Mass ratio] 1.1 {ratio} Normal [facility] Comment on above: Performed By: #### C MP, TSH, LIPID, FT3, T4 #### [facility] [address] [place] [address] Dr. Tigre Gant ALP [Catalytic activity/Vol] 67 U/L Normal 46-116 [facility] Comment on above: Performed By: #### C MP, TSH, LIPID, FT3, T4 #### [facility] [address] [place] [address] Dr. Tigre Gant ALT [Catalytic activity/Vol] 17 U/L Normal 16-63 [facility] Comment on above: Performed By: #### C MP, TSH, LIPID, FT3, T4 #### [facility] [address] [place] [address] Dr. Tigre Gant Anion gap [Moles/Vol] 14.6 mmol/L Normal [facility] Comment on above: Performed By: #### C MP, TSH, LIPID, FT3, T4 #### [facility] [address] [place] [address] Dr. Tigre Gant AST [Catalytic activity/Vol] 16 U/L Normal 15-37 [facility] Comment on above: Performed By: #### C MP, TSH, LIPID, FT3, T4 #### [facility] [address] [place] [address] Dr. Tigre Gant Bilirubin [Mass/Vol] 1.2 mg/dL Critically high 0.2-1.0 [facility] Comment on above: Performed By: #### C MP, TSH, LIPID, FT3, T4 #### [facility] [address] [place] [address] Dr. Tigre Gant Calcium [Mass/Vol] 7.8 mg/dL Critically low 8.5-10.1 [facility] Comment on above: Performed By: #### C MP, TSH, LIPID, FT3, T4 #### [facility] [address] [place] [address] Dr. Tigre Gant Chloride [Moles/Vol] 106 mmol/L Normal 98-107 [facility] Comment on above: Performed By: #### C MP, TSH, LIPID, FT3, T4 #### [facility] [address] [place] [address] Dr. Tigre Gant CO2 [Moles/Vol] 26.5 mmol/L Normal 21.0-32.0 [facility] Comment on above: Performed By: #### C MP, TSH, LIPID, FT3, T4 #### [facility] [address] [place] [address] Dr. Tigre Gant Creatinine [Mass/Vol] 1.48 mg/dL Critically high 0.70-1.30 [facility] Comment on above: Performed By: #### C MP, TSH, LIPID, FT3, T4 #### [facility] [address] [place] [address] Dr. Tigre Gant EGFR-AF SOUTH AFRICAN 56 mL/min/1.73m2 Critically low >=60 [facility] Comment on above: Performed By: #### C MP, TSH, LIPID, FT3, T4 #### [facility] [address] [place] [address] Dr. Tigre Gant EGFR-NON AF [place]TH [place] 46 mL/min/1.73m2 Critically low >=60 [facility] Comment on above: Performed By: #### C MP, TSH, LIPID, FT3, T4 #### [facility] [address] [place] [address] Dr. Tigre Gant Globulin (S) [Mass/Vol] 3.3 g/dL Normal [facility] Comment on above: Performed By: #### C MP, TSH, LIPID, FT3, T4 #### [facility] [address] [place] [address] Dr. Tigre Gant Glucose [Mass/Vol] 99 mg/dL Normal 74-106 [facility] Comment on above: Performed By: #### C MP, TSH, LIPID, FT3, T4 #### [facility] [address] [place] [address] Dr. Tigre Gant Potassium [Moles/Vol] 4.1 mmol/L Normal 3.5-5.1 [facility] Comment on above: Performed By: #### C MP, TSH, LIPID, FT3, T4 #### [facility] [address] [place] [address] Dr. Tigre Gant Protein [Mass/Vol] 6.8 g/dL Normal 6.4-8.2 [facility] Comment on above: Performed By: #### C MP, TSH, LIPID, FT3, T4 #### [facility] [address] [place] [address] Dr. Tigre Gant Sodium [Moles/Vol] 143 mmol/L Normal 136-145 [facility] Comment on above: Performed By: #### C MP, TSH, LIPID, FT3, T4 #### [facility] [address] [place] [address] Dr. Tigre Gant Urea nitrogen [Mass/Vol] 17.0 mg/dL Normal 7.0-18.0 [facility] Comment on above: Performed By: #### C MP, TSH, LIPID, FT3, T4 #### [facility] [address] [place] [address] Dr. Tigre Gant Urea nitrogen/Creatinin e [Mass ratio] 11.5 mg/mg Normal [facility] Comment on above: Performed By: #### C MP, TSH, LIPID, FT3, T4 #### [facility] [address] [place] [address] Dr. Tigre Gant T4on 03-14-2022 T4 [Mass/Vol] 6.30 ug/dL Normal 4.50-12.10 [facility] Comment on above: Performed By: #### C MP, TSH, LIPID, FT3, T4 #### [facility] [address] [place] [address] Dr. Tigre Gant TSHon 03-14-2022 TSH 3.904 uIU/mL Critically high 0.358-3.740 [facility] Comment on above: Performed By: #### C MP, TSH, LIPID, FT3, T4 #### [facility] [address] [place] [address] Dr. Tigre Gant Ambulatory Visit Summaryon 0 12-26-2021 Ambulatory Visit Summary ZACH MANUEL :1945 Visit Date:12/26/2021 Ambulatory Visit Instructions Your Diagnosis BPH with urinary obstruction Elevated PSA Family history of prostate cancer Tests Performed Urnls Dip Stick Auto w/o Microscopy POC 05721 Your Care Team Attending Physician - Roxana [...] E When: Where: [facility] [address], [place] [address]- [phone] Medications What How Much When Instructions Unchanged [...] Urnls Dip Stick Auto w/o Microscopy POC 04037 (12/26/2021) Bilirubin Urine Dipstick - Negative Blood Urine Dipstick - Negative Glucose Urine Dipstick - Negative Ketones Urine Dipstick - Negative Leukocytes Urine Dipstick - Negative Nitrite Urine Dipstick - Negative Protein Urine Dipstick - Negative Specific [place] Urine Dipstick - 1.025 Urine Appearance Urine [...] including vitamins, herbs, eye drops, creams, and zibx-lvt-eppnrux medicines. ? Any problems you or family members have had with anesthetic medicines. ? Any blood disorders you have. ? Any surgeries you menjivar (more content not included)... Normal [facility] Patient Educationon 12-27-19 Patient Education Urology Transurethral [...] including vitamins, herbs, eye drops, creams, and cwgx-vns-lbgsnbp medicines. ? Any problems you or family [...] tells you to take them. ? Taking nmth-sck-gbphyru medicines, vitamins, herbs, and supplements. Eating and [...] jojo (more content not included)... 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 3. Family history of prostate cancer (Z80.42: Family history of malignant neoplasm of prostate) father Follow-up With When Contact Information JOSHUA MONTELONGO, Roxana Rodriguez, URL [facility] [address], [place] [address]- [phone] Additional Instructions: Patient Education Transurethral Resection of the Prostate I, Erica Green, personally scribed for Dr. Lewis on 12/26/2021 14:15:39. . Documentation recorded by the scribe, Erica Green, accurately reflects the services(s) I performed and [...] [id number] v (more content not included)... Normal [facility] Comment on above: Result Comment: Elec tronically Signed By: Roxana LEWIS MD\.br\Date and Time Signed: 12/26/21 14:16 EDT\.br\Electronically Co-Signed By: Erica Green MA\.br\Date and Time Co-Signed: 12/26/21 14:16 EDT Lab Reportson 12-21-2021 Lab Reports [id number] 0CD:127 Normal [facility] PSA, FREE AND TOTAL RATIOon 12-21-2021 % Free PSA 24.5 % Normal [facility] Comment on above: Result Comment: The table [...] men. Performed By: #### A 1C #### [facility] [address] [place] [address] Dr. Tigre Gant Prostate specific Ag [Mass/Vol] 4.2 ng/mL Critically high 0.0-4.0 [facility] Comment on above: Result Comment: Renee JONES methodology. . According to the [place] [employer], Serum PSA should decrease and [...] disease. Performed By: #### A 1C #### [facility] [address] [place] [address] Dr. Tigre Gant PSA, Free 1.03 ng/mL Normal N/A [facility] Comment on above: Result Comment: Renee JONES methodology. Performed By: #### A 1C #### [facility] [address] [place] [address] Dr. Tigre Gant Lab Report[facility] 11-14-2021 Lab Reports [id number] 0CD:127 Normal [facility] CLOSTRIDIUM DIFFICILE PCRon 09-13-2021 C difficile Toxin Gene SHOSHANA Negative Normal Negative [facility] Comment on above: Performed By: #### A 1C #### [facility] [address] [place] [address] Dr. Tigre Gant GI PANEL (PCR)on 09-12-2021 Adenovirus F 40/41 Not detected Normal NOT DETECTED [facility] Comment on above: Performed By: #### G IPANEL #### [facility] [address] [place] [address] Dr. Tigre Gant Astrovirus Not detected Normal NOT DETECTED [facility] Comment on above: Performed By: #### G IPANEL #### [facility] [address] [place] [address] Dr. Tigre Hardy. Diff toxin A/B Not detected Normal NOT DETECTED [facility] Comment on above: Performed By: #### G IPANEL #### [facility] [address] [place] [address] Dr. Tigre Gatn Campylobacter Not detected Normal NOT DETECTED [facility] Comment on above: Performed By: #### G IPANEL #### [facility] [address] [address] [address] Tigre Gant Cryptosporidium Not detected Normal NOT DETECTED [facility] Comment on above: Performed By: #### G IPANEL #### [facility] [address] [address] [address] Tigre Gant Cyclos. Cayetanensis Not detected Normal NOT DETECTED [facility] Comment on above: Performed By: #### G IPANEL #### [facility] [address] [address] [address] Tigre Gant E. Coli O157 Not Applicable Normal Not Applicable [facility] Comment on above: Performed By: #### G IPANEL #### [facility] [address] [place] [address] Dr. Tigre Gant E. histolytica Not detected Normal NOT DETECTED [facility] Comment on above: Performed By: #### G IPANEL #### [facility] [address] [address] [address] Tigre Gant EAEC Not detected Normal NOT DETECTED [facility] Comment on above: Performed By: #### G IPANEL #### [facility] [address] [place] [address] Dr. Tigre Gant EIEC Not detected Normal NOT DETECTED [facility] Comment on above: Performed By: #### G IPANEL #### [facility] [address] [place] [address] Dr. Tigre Gant EPEC Not detected Normal NOT DETECTED [facility] Comment on above: Performed By: #### G IPANEL #### [facility] [address] [place] [address] Dr. Tigre Gant ETEC Not detected Normal NOT DETECTED [facility] Comment on above: Performed By: #### G IPANEL #### [facility] [address] [place] [address] Dr. Tigre Gant G. Lamblia Not detected Normal NOT DETECTED [facility] Comment on above: Performed By: #### G IPANEL #### [facility] [address] [address] [address] Tigre ROSALES CONTROLS PASSED Normal [facility] Comment on above: Performed By: #### G IPANEL #### [facility] [address] [address] [address] Tigre BRODERICK OLGA HEADER GI PANEL BACTERIA Normal [facility] Comment on above: Performed By: #### G IPANEL #### [facility] [address] [address] [address] Tigre CAPUTO ECOLI GI PANEL DIARRHEAGEN IC E.COLI / SHIGELLA Normal [facility] Comment on above: Performed By: #### G IPANEL #### [facility] [address] [place] [address] Dr. Tigre CAPUTO INFO SEE BELOW Normal [facility] Comment on above: Result Comment: EAEC - Enteroaggregative E. Coli EPEC- Enteropathogenic E. Coli ETEC- Enterotoxigenic E. Coli lt/st STEC- Shigella-like toxin-producing E. Coli stx1/stx2 EIEC- Shigella/Enteroinvasive E. Coli Performed By: #### G IPANEL #### [facility] [address] [place] [address] Dr. Tigre CAPUTO PARASITES GI PANEL PARASITES Normal [facility] Comment on above: Performed By: #### G IPANEL #### [facility] [address] [place] [address] Dr. Tigre CAPUTO VIRUS GI PANEL VIRUSES Normal [facility] Comment on above: Performed By: #### G IPANEL #### [facility] [address] [place] [address] Dr. Tigre Gant Norovirus GI/GII Not detected Normal NOT DETECTED [facility] Comment on above: Performed By: #### G IPANEL #### [facility] [address] [place] [address] Dr. Tigre Gant P. Shigelloides Not detected Normal NOT DETECTED [facility] Comment on above: Performed By: #### G IPANEL #### [facility] [address] [place] [address] Dr. Tigre Gant Rotavirus A Not detected Normal NOT DETECTED [facility] Comment on above: Performed By: #### G IPANEL #### [facility] [address] [place] [address] Dr. Tigre Gant Salmonella Not detected Normal NOT DETECTED [facility] Comment on above: Performed By: #### G IPANEL #### [facility] [address] [place] [address] Dr. Tigre Gant Sapovirus Not detected Normal NOT DETECTED [facility] Comment on above: Performed By: #### G IPANEL #### [facility] [address] [place] [address] Dr. Tigre Gant STEC Not detected Normal NOT DETECTED [facility] Comment on above: Performed By: #### G IPANEL #### [facility] [address] [place] [address] Dr. Tigre Gant Vibrio Not detected Normal NOT DETECTED [facility] Comment on above: Performed By: #### G IPANEL #### [facility] [address] [place] [address] Dr. Tigre Gant Vibrio Cholera Not detected Normal NOT DETECTED [facility] Comment on above: Performed By: #### G IPANEL #### [facility] [address] [place] [address] Dr. Tigre Gant Y. Enterocolitica Not detected Normal NOT DETECTED [facility] Comment on above: Performed By: #### G IPANEL #### [facility] [address] [place] [address] Dr. Tigre Gant XR lumbar spine 6V w bending on 05-05-2021 XR lumbar spine 6V w bending [facility] [place] [address] [place] [address] XRay Report Signed Patient: Zach Manuel MR#: [id number] 9 : 1945 Acct:[id number] Age/Sex: 76 / M ADM Date: 05/05/21 Loc: XD Room: Type: [facility] CLI Attending Dr: Kosta Harper MD Ordering Provider: [...] T12 on the right. Impression dictated by: aCrson Kumar Jr., M.D.05/05/2021 2:07 PM Dictation Location: [place] [address] Transcribed By: [facility] 05/05/21 1407 Dictated By: Carson Kumar Jr, MD 05/05/21 1353 Signed By: 05/05/21 1407 [facility] Lab Reportson 02-21-2021 Lab Reports [id number]:[id number] Normal [facility] Ambulatory Clinical Summaryo n 01-03-2021 Ambulatory Clinical Summary {[id number] Normal [facility] Patient Educationon 01-04-20 Patient Education Benign Prostatic Hyperplasia You have [...] Document Reviewed: 05/15/2008 ExitCare? Patient Information ?2013 Factual. [facility] Urology Office/Clinic Noteon 01-03-2021 Urology Office/Clinic Note [...] With When Contact Information JOSHUA MONTELONGO, Roxana [address] [address] [phone] Additional Instructions: 1yr. psa Patient Education Benign Prostatic Hyperplasia IShayna , personally scribed for Dr. Lewis on [...] 30 days (more content not included)... Normal [facility] Comment on above: Result Comment: Elec tronically Signed By: JOSHUA MONTELONGO, Roxana R\.br\Date and Time Signed: 01/03/21 14:46 EDT\.br\Electronically Co-Signed By: Shayna Ramirez MA F\.br\Date and Time Co-Signed: 01/03/21 14:45 EDT FEMUR RIGHT 2 [facility] 05-16-20 19 FEMUR RIGHT 2 S [facility] Department of Radiology [address] [place] [id number] ======== Patient Name: ZACH MANUEL : 1945 Sex: M Age: Race: White Pt. 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 Ortho follow up. QUESTION FOR THE RADIOLOGIST: , , , Ordering Epi SCOTT PA-C , PROTOCOL: AP(PA) and Lateral [...] hip Electronically signed by:Jazmín Hernandez. Transcribed by: [email or web address], User Resident: Electronically Signed by: JAZMÍN HERNANDEZ @ 05/16/2019 03:38 PM Normal [facility] Comment on above: Order Comment: , , = ========= , Ordering Provider Michelle SCOTT PA-C , FEMUR RIGHT 2 Son 02-14-20 19 FEMUR RIGHT 2 S [facility] Department of Radiology [address] [place] [id number] ======== Patient Name: ZACH MANUEL : 1945 Sex: [...] PA-C , Exam: FEMUR RIGHT 2 VWS ======== FEMUR RIGHT 2 VWS 02/13/2019 3:27 PM [...] healing. Electronically signed by:Jazmín Hernandez. Transcribed by: [email or web address], User Resident: Electronically Signed by: JAZMÍN HERNANDEZ @ 02/13/2019 05:05 PM [place] [facility] Comment on above: Order Comment: , , = ========= , Ordering Provider - ZHENG SCOTT PA-C , FEMUR RIGHT 2 VWSon 01-10-20 19 FEMUR RIGHT 2 VWS [facility] Department of Radiology [address] [place] [phone] ======== Patient Name: ZACH MANUEL : 1945 Sex: [...] CROSS PA-C , Exam: FEMUR RIGHT 2 VWS ======== FEMUR RIGHT 2 VWS 01/09/2019 10:15 AM [...] reaction Electronically signed by:Soila Morris. Transcribed by: [email or web address], User Resident: Electronically Signed by: SOILA MORRIS @ 01/09/2019 12:25 PM Normal [facility] Comment on above: Order Comment: , , = ========= , Ordering Provider - JACQUELINE CROSS PA-C , FEMUR RIGHT 2 [facility] 12-11-19 19 FEMUR RIGHT 2 S [facility] Department of Radiology [address] [place] [phone] ======== Patient Name: ZACH MANUEL : 1945 Sex: M Age: Race: White Pt. Location: Patient Status: Ordered Date: 12/10/2018 1:20:00 PM Completed Date: 12/10/2018 01:34 PM Requesting Provider: ZHENG SCOTT Attending Provider: Report Copy To: Signs & Symptoms: S72.21XD Displ subtrochnt fx r femur, subs for clos fx w routn heal I10 History: [place] Comments: , Views (X-RAY, FEMUR): Radiologic Protocol , Weight Bearing?: Y , Views (X-RAY, FEMUR): Radiologic Protocol , Weight Bearing?: Y , , , Ordering Provider - ZHENG SCOTT PA-C , Exam: FEMUR RIGHT 2 [facility] ======== FEMUR RIGHT 2 VWS 12/10/2018 1:34 PM EDT SIGNS AND SYMPTOMS: S72.21XD Displ subtrochnt fx r femur, subs for clos fx w routn heal I10 TECHNOLOGIST COMMENTS: ortho check right femur surgery 07/13/18 QUESTION FOR THE RADIOLOGIST: , Views (X-RAY, FEMUR): Radiologic Protocol , Weight Bearing?: Y , Views (X-RAY, FEMUR): Radiologic Protocol , Weight Bearing?: Y , , , Ordering Epi SCOTT PA-C , PROTOCOL: AP(PA) and Lateral [...] fracture Electronically signed by:Soila Morris. Transcribed by: [email or web address], User Resident: Electronically Signed by: SOILA MORRIS @ 12/10/2018 03:21 PM Normal [facility] Comment on above: Order Comment: , Jaky ws (X-RAY, FEMUR): Radiologic Protocol , Weight Bearing?: Y , Views (X-RAY, FEMUR): Radiologic Protocol , Weight Bearing?: Y , , , Ordering Epi SCOTT PA-C , VITAMIN D 25-HYDROXYon 12-10 VITAMIN D 25-OH 40.2 ng/mL Normal 30.0-80.0 [facility] Comment on above: Result Comment: >80. 0 Toxicity possible Performed By: #### 6 2586 #### [address] [place] [address], [facility] FEMUR RIGHT 2 Son 10-29-19 19 FEMUR RIGHT 2 VWS [facility] Department of Radiology [address] [place] [phone] ======== Patient Name: ZACH MANUEL : 1945 Sex: [...] PA-C , Exam: FEMUR RIGHT 2 S ======== FEMUR RIGHT 2 VWS 10/29/2018 1:58 PM [...] healing Electronically signed by:Soila Morris. Transcribed by: [email or web address], User Resident: Electronically Signed by: SOILA MORRIS @ 10/29/2018 02:17 PM Normal [facility] Comment on above: Order Comment: , , = ========= , Ordering Provider - ZHENG SCOTT PA-C , FEMUR RIGHT 2 [facility] 09-20-20 18 FEMUR RIGHT 2 [facility] Department of Radiology [address] [place] [phone] ======== Patient Name: ZACH MANUEL : 1945 Sex: [...] PA-C , Exam: FEMUR RIGHT 2 S ======== FEMUR RIGHT 2 S 09/20/2018 12:49 PM EST SIGNS AND SYMPTOMS: S72.21XD Displ subtrochnt fx r femur, subs for clos fx w routn heal I10 TECHNOLOGIST COMMENTS: History of right femur surgery 07/13/2018. Ortho follow up. QUESTION FOR THE RADIOLOGIST: , Views (X-RAY, FEMUR): AP, Lateral , Views (X-RAY, FEMUR): AP, Lateral , , , Ordering Epi MAHAJAN-C , PROTOCOL: AP(PA) and Lateral views were obtained. COMPARISON: August 23, 2018 FINDINGS: Soft tissues: Unchanged Bones: Unchanged Joints: Unchanged IMPRESSION: Transversely oriented subtrochanteric fracture fixed by nery in unchanged slightly offset alignment with still no significant bony bridging Electronically signed by:Soila Morris. Transcribed by: [email or web address], User Resident: Electronically Signed by: SOILA MORRIS @ 09/20/2018 01:08 PM Normal [facility] Comment on above: Order Comment: , Jaky ws (X-RAY, FEMUR): AP, Lateral , Views (X- RAY, FEMUR): AP, Lateral , , , Ordering Provider - ZHENG MAHAJAN-C , FEMUR RIGHT 2 [facility] 08-23-20 18 FEMUR RIGHT 2 [facility] Department of Radiology [address] [place] [phone] ======== Patient Name: ZACH MANUEL : 1945 Sex: [...] PA-C , Exam: FEMUR RIGHT 2 S ======== FEMUR RIGHT 2 S 08/23/2018 12:57 PM EST SIGNS AND SYMPTOMS: [...] disease Electronically signed by:Soila Morris. Transcribed by: [email or web address], User Resident: Electronically Signed by: SOILA MORRIS @ 08/23/2018 02:15 PM [place] [facility] Comment on above: Order Comment: , Jaky ws (X-RAY, FEMUR): AP, Lateral , Views (X- RAY, FEMUR): AP, Lateral , , , Ordering Provider - ZHENG SCOTT PA-C , FEMUR RIGHT 2 VWSon 07-25-20 18 FEMUR RIGHT 2 VWS [facility] Department of Radiology [address] [place] [phone] ======== Patient Name: ZACH MANUEL : 1945 Sex: M Age: Race: White Pt. Location: Patient Status: Ordered Date: 07/25/2018 10:10:00 AM Completed Date: 07/25/2018 10:16 AM Requesting Provider: JACQUELINE CROSS Attending Provider: Report Copy To: Signs & Symptoms: S72.21XA Displaced subtrochanteric fracture of right femur, init I10 History: [place] Comments: , , , Ordering Provider - JACQUELINE CROSS PA-C , Exam: FEMUR RIGHT 2 S ======== FEMUR RIGHT 2 VWS 07/25/2018 10:16 AM [...] above Electronically signed by:Soila Morris. Transcribed by: [email or web address], User Resident: Electronically Signed by: SOILA MORRIS @ 07/25/2018 02:02 PM Normal [facility] Comment on above: Order Comment: , , = ========= , Ordering Provider - JACQUELINE CROSS PA-C , BASIC METABOLIC PANELon 10-2 Calcium [Mass/Vol] 8.2 mg/dL Low 8.6-10.3 [facility] Comment on above: Order Comment: No: D o not add to previous draw Performed By: #### 5 0103 #### [facility] [address] [place] [address], [facility] Chloride [Moles/Vol] 100 mmol/L Normal 98-107 [facility] Comment on above: Order Comment: No: D o not add to previous draw Performed By: #### 5 0103 #### [facility] [address] [place] [address], [facility] CO2 [Moles/Vol] 25 mmol/L Normal 21-31 [facility] Comment on above: Order Comment: No: D o not add to previous draw Performed By: #### 5 0103 #### [facility] [address] [facility]. [place] [id number], [facility] Creatinine [Mass/Vol] 1.11 mg/dL Normal 0.70-1.30 [facility] Comment on above: Order Comment: No: D o not add to previous draw Performed By: #### 5 0103 #### [facility] [address] [place] [address], [place] GFR/1.73 sq M predicted among blacks MDRD (S/P/Bld) [Vol rate/Area] mL/min/{1.73_m2} Normal >60 [facility] Comment on above: Order Comment: No: D o not add to previous draw Result Comment: Calc ulation may not be valid for patients over 70 years Performed By: #### 5 0103 #### [facility] [address] [place] [address], [place] GFR/1.73 sq M predicted among non-blacks MDRD (S/P/Bld) [Vol rate/Area] mL/min/{1.73_m2} Normal >60 [facility] Comment on above: Order Comment: No: D o not add to previous draw Result Comment: Calc ulation may not be valid for patients over 70 years Performed By: #### 5 0103 #### [facility] [address] [place] [address], [place] Glucose [Mass/Vol] 243 mg/dL High 70-100 [facility] Comment on above: Order Comment: No: D o not add to previous draw Performed By: #### 5 0103 #### [facility] [address] [place] [address], [place] Potassium [Moles/Vol] 3.7 mmol/L Normal 3.5-5.1 [facility] Comment on above: Order Comment: No: D o not add to previous draw Performed By: #### 5 0103 #### [facility] [address] [place] [address], [place] Sodium [Moles/Vol] 131 mmol/L Low 136-145 [facility] Comment on above: Order Comment: No: D o not add to previous draw Performed By: #### 5 0103 #### [facility] [address] [place] [address], [place] Urea nitrogen [Mass/Vol] 18 mg/dL Normal 7-25 [facility] Comment on above: Order Comment: No: D o not add to previous draw Performed By: #### 5 0103 #### [facility] [address] [place] [id number], [facility] CBC COMPLETE BLOOD COUNTon Erythrocyte distribution width (RBC) [Ratio] 12.4 % Normal 11.5-15.0 [facility] Comment on above: Order Comment: No: D o not add to previous draw Performed By: #### 5 0103 #### [facility] [address] [place] [address], [facility] Hematocrit (Bld) [Volume fraction] 25.4 % Low 39.0-50.0 [facility] Comment on above: Order Comment: No: D o not add to previous draw Performed By: #### 5 0103 #### [facility] [address] [place] [address], [facility] Hemoglobin (Bld) [Mass/Vol] 8.6 g/dL Low 13.0-17.0 [facility] Comment on above: Order Comment: No: D o not add to previous draw Performed By: #### 5 0103 #### [facility] [address] [place] [address], [facility] IMM PLATELET FRAC 5.2 % Normal 0.8-6.3 [facility] Comment on above: Order Comment: No: D o not add to previous draw Performed By: #### 5 0103 #### [facility] [address] [place] [address], [facility] MCH (RBC) [Entitic mass] 31.4 pg Normal 27.0-33.0 [facility] Comment on above: Order Comment: No: D o not add to previous draw Performed By: #### 5 3 #### [facility] [address] [place] [id number], [facility] MCHC (RBC) [Mass/Vol] 33.9 g/dL Normal 32.0-35.0 [facility] Comment on above: Order Comment: No: D o not add to previous draw Performed By: #### 5 0103 #### [facility] [address] [place] [address], [facility] MCV (RBC) [Entitic vol] 92.7 fL Normal 82.0-98.0 [facility] Comment on above: Order Comment: No: D o not add to previous draw Performed By: #### 5 0103 #### [facility] [address] [facility] [place] [address], [facility] Nucleated RBC/100 WBC (Bld) [Ratio] 0 % Normal 0-0 [facility] Comment on above: Order Comment: No: D o not add to previous draw Performed By: #### 5 0103 #### [facility] [address] [place] [address], [facility] PLAT CNT 130 10*3/uL Low 150-400 [facility] Comment on above: Order Comment: No: D o not add to previous draw Performed By: #### 5 0103 #### [facility] [address] [place] [address], [facility] RBC (Bld) [#/Vol] 2.74 10*6/uL Low 4.20-5.70 [facility] Comment on above: Order Comment: No: D o not add to previous draw Performed By: #### 5 0103 #### [facility] [address] [place] [id number], [facility] WBC (Bld) [#/Vol] 6.87 10*3/uL Normal 4.00-10.60 [facility] Comment on above: Order Comment: No: D o not add to previous draw Performed By: #### 5 0103 #### [facility] [address] [place] [address], [place] POC GLUCOSE LABon 07-16-2018 Glucose [Mass/Vol] 281 mg/dL High 70-100 [facility] Comment on above: Performed By: #### 5 0103 #### [facility] [address] [place] [address], [place] Glucose [Mass/Vol] 250 mg/dL High 70-100 [facility] Comment on above: Performed By: #### 5 6101, 27144 #### [facility] [address] [place] [address], [place] Glucose [Mass/Vol] 240 mg/dL High 70-100 [facility] Comment on above: Performed By: #### 5 610, 68128 #### [facility] [address] [place] [address], [place] BASIC METABOLIC PANELon 06-25 Calcium [Mass/Vol] 8.0 mg/dL Low 8.6-10.3 [facility] Comment on above: Order Comment: No: D o not add to previous draw Performed By: #### 5 6101, 98831 #### [facility] [address] [place] [address], [place] Chloride [Moles/Vol] 101 mmol/L Normal 98-107 [facility] Comment on above: Order Comment: No: D o not add to previous draw Performed By: #### 5 6101, 90509 #### [facility] [address] [place] [address], [place] CO2 [Moles/Vol] 25 mmol/L Normal 21-31 [facility] Comment on above: Order Comment: No: D o not add to previous draw Performed By: #### 5 6101, 95082 #### [facility] [address] [place] [address], [place] Creatinine [Mass/Vol] 1.23 mg/dL Normal 0.70-1.30 [facility] Comment on above: Order Comment: No: D o not add to previous draw Performed By: #### 5 610, 20287 #### [facility] [address] [place] [address], [place] GFR/1.73 sq M predicted among blacks MDRD (S/P/Bld) [Vol rate/Area] mL/min/{1.73_m2} Normal >60 [facility] Comment on above: Order Comment: No: D o not add to previous draw Result Comment: Calc ulation may not be valid for patients over 70 years Performed By: #### 5 610, 16940 #### [facility] [address] [place] [address], [place] GFR/1.73 sq M predicted among non-blacks MDRD (S/P/Bld) [Vol rate/Area] 58 ml/min/1.73sq m Abnormal >60 [facility] Comment on above: Order Comment: No: D o not add to previous draw Result Comment: Calc ulation may not be valid for patients over 70 years Performed By: #### 5 610, 17054 #### [facility] [address] [place] [address], [place] Glucose [Mass/Vol] 207 mg/dL High 70-100 [facility] Comment on above: Order Comment: No: D o not add to previous draw Performed By: #### 5 6101, 70794 #### [facility] [address] [place] [address], [place] Potassium [Moles/Vol] 3.7 mmol/L Normal 3.5-5.1 [facility] Comment on above: Order Comment: No: D o not add to previous draw Performed By: #### 5 6101, 55325 #### [facility] [address] [place] [address], [place] Sodium [Moles/Vol] 130 mmol/L Low 136-145 [facility] Comment on above: Order Comment: No: D o not add to previous draw Performed By: #### 5 610, 21624 #### [facility] [address] Urea nitrogen [Mass/Vol] 16 mg/dL Normal 7-25 [facility] Comment on above: Order Comment: No: D o not add to previous draw Performed By: #### 5 610, 56893 #### [facility] [address] [place] [address], [facility] CBC W/DIFFon 07-15-2018 ABS BASOPHILS 0.0 10*3/uL Normal 0.0-0.2 [facility] Comment on above: Order Comment: No: D o not add to previous draw Performed By: #### 5 610, 21800 #### [facility] [address] [facility] ABS IMM GRANS 0.1 10*3/uL Normal 0.0-0.2 [facility] Comment on above: Order Comment: No: D o not add to previous draw Performed By: #### 5 610, 60303 #### [facility] [address] [place] [address], [facility] ABS NEUTROPHILS 7.6 10*3/uL Normal 1.6-7.6 [facility] Comment on above: Order Comment: No: D o not add to previous draw Performed By: #### 5 610, 25180 #### [facility] [address] [place] [address], [facility] Basophils/100 WBC (Bld) 0.3 % Normal 0.0-1.0 [facility] Comment on above: Order Comment: No: D o not add to previous draw Performed By: #### 5 610, 56993 #### [facility] [address] [place] [address], [facility] Eosinophils (Bld) [#/Vol] 0.1 10*3/uL Normal 0.0-0.5 [facility] Comment on above: Order Comment: No: D o not add to previous draw Performed By: #### 5 610, 11106 #### [facility] [address] [place] [address], [facility] Eosinophils/100 WBC (Bld) 1.6 % Normal 0.0-6.0 [facility] Comment on above: Order Comment: No: D o not add to previous draw Performed By: #### 5 6100, 10678 #### [facility] [address] [place] [address], [facility] Erythrocyte distribution width (RBC) [Ratio] 12.5 % Normal 11.5-15.0 [facility] Comment on above: Order Comment: No: D o not add to previous draw Performed By: #### 5 6100, 39600 #### [facility] [address] [place] [address], [facility] Hematocrit (Bld) [Volume fraction] 26.0 % Low 39.0-50.0 [facility] Comment on above: Order Comment: No: D o not add to previous draw Performed By: #### 5 6100, 87219 #### [facility] [address] [place] [address], [facility] Hemoglobin (Bld) [Mass/Vol] 8.8 g/dL Low 13.0-17.0 [facility] Comment on above: Order Comment: No: D o not add to previous draw Performed By: #### 5 610, 27225 #### [facility] [address] [place] [address], [place] IMM PLATELET FRAC 4.5 % Normal 0.8-6.3 [facility] Comment on above: Order Comment: No: D o not add to previous draw Performed By: #### 5 610, 89013 #### [facility] [address] [place] [address], [place] IMMATURE GRANS 0.6 % Normal 0.0-1.0 [facility] Comment on above: Order Comment: No: D o not add to previous draw Performed By: #### 5 6100, 70998 #### [facility] [address] [place] [address], [facility] Lymphocytes (Bld) [#/Vol] 0.2 10*3/uL Low 1.2-4.0 [facility] Comment on above: Order Comment: No: D o not add to previous draw Performed By: #### 5 6100, 87457 #### [facility] [address] [place] [address], [facility] Lymphocytes/100 WBC (Bld) 2.1 % Low 20.0-45.0 [facility] Comment on above: Order Comment: No: D o not add to previous draw Performed By: #### 5 6100, 99775 #### [facility] [address] [place] [address], [facility] MCH (RBC) [Entitic mass] 31.7 pg Normal 27.0-33.0 [facility] Comment on above: Order Comment: No: D o not add to previous draw Performed By: #### 5 6100, 47964 #### [facility] [address] [place] [address], [facility] MCHC (RBC) [Mass/Vol] 33.8 g/dL Normal 32.0-35.0 [facility] Comment on above: Order Comment: No: D o not add to previous draw Performed By: #### 5 6100, 00646 #### [facility] [address] [place] [address], [place] MCV (RBC) [Entitic vol] 93.5 fL Normal 82.0-98.0 [facility] Comment on above: Order Comment: No: D o not add to previous draw Performed By: #### 5 6100, 85607 #### [facility] [address] [place] [address], [place] Monocytes (Bld) [#/Vol] 0.6 10*3/uL Normal 0.1-1.0 [facility] Comment on above: Order Comment: No: D o not add to previous draw Performed By: #### 5 610, 65869 #### [facility] [address] [place] [address], [facility] MONOS 7.1 % Normal 5.0-12.0 [facility] Comment on above: Order Comment: No: D o not add to previous draw Performed By: #### 5 6100, 28578 #### [facility] [address] [place] [address], [facility] Neutrophils/100 WBC (Bld) 88.3 % High 40.0-72.0 [facility] Comment on above: Order Comment: No: D o not add to previous draw Performed By: #### 5 6100, 90986 #### [facility] [address] [place] [address], [facility] Nucleated RBC/100 WBC (Bld) [Ratio] 0 % Normal 0-0 [facility] Comment on above: Order Comment: No: D o not add to previous draw Performed By: #### 5 6100, [id number] #### [facility] [address] [place] [id number], [place] PLAT CNT 113 10*3/uL Low 150-400 [facility] Comment on above: Order Comment: No: D o not add to previous draw Performed By: #### 5 6100, 70925 #### [facility] [address] [place] [address], [place] RBC (Bld) [#/Vol] 2.78 10*6/uL Low 4.20-5.[address] [facility] Comment on above: Order Comment: No: D o not add to previous draw Performed By: #### 5 6100, 13045 #### [facility] [address] [place] [address], [facility] WBC (Bld) [#/Vol] 8.62 10*3/uL Normal 4.00-10.60 [facility] Comment on above: Order Comment: No: D o not add to previous draw Performed By: #### 5 610, 88572 #### [facility] [address] [place] [address], [facility] POC GLUCOSE LABon 07-15-2018 Glucose [Mass/Vol] 281 mg/dL High 70-100 [facility] Comment on above: Performed By: #### 5 6100, 76541 #### [facility] [address] [place] [address], [place] Glucose [Mass/Vol] 305 mg/dL High 70-100 [facility] Comment on above: Performed By: #### 5 610, 33938 #### [facility] [address] [place] [address], [place] Glucose [Mass/Vol] 198 mg/dL High 70-100 [facility] Comment on above: Performed By: #### 5 610, 05325 #### [facility] [address] [place] [address], [place] Glucose [Mass/Vol] 227 mg/dL High 70-100 [facility] Comment on above: Performed By: #### 5 610, 66253 #### [facility] [address] [place] [address], [place] BASIC METABOLIC PANELon 10-2 Calcium [Mass/Vol] 8.3 mg/dL Low 8.6-10.3 [facility] Comment on above: Order Comment: Unkno wn Performed By: #### 5 610, 06273 #### [facility] [address] [place] [address], [place] Chloride [Moles/Vol] 105 mmol/L Normal 98-107 [facility] Comment on above: Order Comment: Unkno wn Performed By: #### 5 610, 53498 #### [facility] [address] [place] [address], [place] CO2 [Moles/Vol] 24 mmol/L Normal 21-31 [facility] Comment on above: Order Comment: Unkno wn Performed By: #### 5 610, 30896 #### [facility] [address] [place] [address], [place] Creatinine [Mass/Vol] 1.20 mg/dL Normal 0.70-1.30 [facility] Comment on above: Order Comment: Unkno wn Performed By: #### 5 610, 49553 #### [facility] [address] [place] [address], [place] GFR/1.73 sq M predicted among blacks MDRD (S/P/Bld) [Vol rate/Area] mL/min/{1.73_m2} Normal >60 [facility] Comment on above: Order Comment: Unkno wn Result Comment: Calc ulation may not be valid for patients over 70 years Performed By: #### 5 610, 51249 #### [facility] [address] [place] [address], [place] GFR/1.73 sq M predicted among non-blacks MDRD (S/P/Bld) [Vol rate/Area] 60 ml/min/1.73sq m Abnormal >60 [facility] Comment on above: Order Comment: Unkno wn Result Comment: Calc ulation may not be valid for patients over 70 years Performed By: #### 5 6101, 40950 #### [facility] [address] [place] [address], [place] Glucose [Mass/Vol] 181 mg/dL High 70-100 [facility] Comment on above: Order Comment: Unkno wn Performed By: #### 5 610, 76003 #### [facility] [address] [place] [id number], [facility] Potassium [Moles/Vol] 3.7 mmol/L Normal 3.5-5.1 [facility] Comment on above: Order Comment: Unkno wn Performed By: #### 5 610, 85990 #### [facility] [address] [place] [address], [place] Sodium [Moles/Vol] 133 mmol/L Low 136-145 [facility] Comment on above: Order Comment: Unkno wn Performed By: #### 5 6100, 53199 #### [facility] [address] [place] [address], [place] Urea nitrogen [Mass/Vol] 18 mg/dL Normal 7-25 [facility] Comment on above: Order Comment: Unkno wn Performed By: #### 5 6100, 71359 #### [facility] [address] [place] [address], [facility] CBC COMPLETE BLOOD COUNTon - Erythrocyte distribution width (RBC) [Ratio] 12.7 % Normal 11.5-15.0 [facility] Comment on above: Order Comment: Unkno wn Performed By: #### 5 6100, 38556 #### [facility] [address] [place] [address], [place] Hematocrit (Bld) [Volume fraction] 28.6 % Low 39.0-50.0 [facility] Comment on above: Order Comment: Unkno wn Performed By: #### 5 610, 80673 #### [facility] [address] [place] [address], [place] Hemoglobin (Bld) [Mass/Vol] 9.8 g/dL Low 13.0-17.0 [facility] Comment on above: Order Comment: Unkno wn Performed By: #### 5 610, 83351 #### [facility] [address] [place] [address], [place] IMM PLATELET FRAC 4.1 % Normal 0.8-6.3 [facility] Comment on above: Order Comment: Unkno wn Performed By: #### 5 610, 76926 #### [facility] [address] [place] [address], [facility] MCH (RBC) [Entitic mass] 31.5 pg Normal 27.0-33.0 [facility] Comment on above: Order Comment: Unkno wn Performed By: #### 5 6100, 86346 #### [facility] [address] MCHC (RBC) [Mass/Vol] 34.3 g/dL Normal 32.0-35.0 [facility] Comment on above: Order Comment: Unkno wn Performed By: #### 5 6100, 25818 #### [facility] [address] [place] [address], [facility] MCV (RBC) [Entitic vol] 92.0 fL Normal 82.0-98.0 [facility] Comment on above: Order Comment: Unkno wn Performed By: #### 5 6100, 71218 #### [facility] [address] [facility]. [address] Nucleated RBC/100 WBC (Bld) [Ratio] 0 % Normal 0-0 [facility] Comment on above: Order Comment: Unkno wn Performed By: #### 5 610, 01275 #### [facility] [address] [place] [address], [facility] PLAT CNT 119 10*3/uL Low 150-400 [facility] Comment on above: Order Comment: Unkno wn Performed By: #### 5 610, 94926 #### [facility] [address] [place] [address], [facility] RBC (Bld) [#/Vol] 3.11 10*6/uL Low 4.20-5.70 [facility] Comment on above: Order Comment: Unkno wn Performed By: #### 5 610, 68322 #### [facility] [address] [place] [address], [facility] WBC (Bld) [#/Vol] 6.45 10*3/uL Normal 4.00-10.60 [facility] Comment on above: Order Comment: Unkno wn Performed By: #### 5 610, 53845 #### [facility] [address] [place] [address], [place] MAGNESIUM BLOODon 07-14-2018 Magnesium [Mass/Vol] 1.3 mg/dL Low 1.9-2.7 [facility] Comment on above: Order Comment: Unkno wn Performed By: #### 5 610, 60114 #### [facility] [address] [place] [address], [facility] PHOSPHORUS BLOODon 8 Phosphate [Mass/Vol] 3.4 mg/dL Normal 2.5-5.0 [facility] Comment on above: Order Comment: Unkno wn Performed By: #### 5 610, 13373 #### [facility] [address] [place] [address], [place] POC GLUCOSE LABon 07-14-2018 Glucose [Mass/Vol] 253 mg/dL High 70-100 [facility] Comment on above: Performed By: #### 5 610, 11784 #### [facility] [address] [place] [address], [place] Glucose [Mass/Vol] 272 mg/dL High 70-100 [facility] Comment on above: Performed By: #### 5 610, 13876 #### [facility] [address] [place] [address], [place] Glucose [Mass/Vol] 167 mg/dL High 70-100 [facility] Comment on above: Performed By: #### 5 610, 81220 #### [facility] [address] [place] [address], [facility] Glucose [Mass/Vol] 220 mg/dL High 70-100 [facility] Comment on above: Performed By: #### 5 6101, 31311 #### [facility] [address] [facility] [place] [address], [facility] VITAMIN D 25-HYDROXYon 07-14 VITAMIN D 25-OH 26.4 ng/mL Low 30.0-80.0 [facility] Comment on above: Result Comment: >80. 0 Toxicity possible Performed By: #### 5 6101, 86347 #### [facility] [address] [facility]. [address] APTTon 07-13-2018 aPTT Coag (Bld) [Time] 23.9 s Low 25.0-35.0 [facility] Comment on above: Result Comment: ALL RESULTS [...] THIS PURPOSE. Performed By: #### 5 6101, 57743 #### [facility] [address] [facility]. [address] BASIC METABOLIC PANELon 2 Calcium [Mass/Vol] 8.7 mg/dL Normal 8.6-10.3 [facility] Comment on above: Performed By: #### 0 0071 #### [facility] [address] [place] [address], [facility] Chloride [Moles/Vol] 103 mmol/L Normal 98-107 [facility] Comment on above: Performed By: #### 0 0071 #### [facility] [address] [place] [address], [facility] CO2 [Moles/Vol] 24 mmol/L Normal 21-31 [facility] Comment on above: Performed By: #### 0 0071 #### [facility] [address] [place] [address], [place] Creatinine [Mass/Vol] 1.18 mg/dL Normal 0.70-1.30 [facility] Comment on above: Performed By: #### 0 0071 #### [facility] [address] [place] [address], [place] GFR/1.73 sq M predicted among blacks MDRD (S/P/Bld) [Vol rate/Area] mL/min/{1.73_m2} Normal >60 [facility] Comment on above: Result Comment: Calc ulation may not be valid for patients over 70 years Performed By: #### 0 0071 #### [facility] [address] [place] [address], [place] GFR/1.73 sq M predicted among non-blacks MDRD (S/P/Bld) [Vol rate/Area] mL/min/{1.73_m2} Normal >60 [facility] Comment on above: Result Comment: Calc ulation may not be valid for patients over 70 years Performed By: #### 0 0071 #### [facility] [address] [place] [address], [place] Glucose [Mass/Vol] 165 mg/dL High 70-100 [facility] Comment on above: Performed By: #### 0 0071 #### [facility] [address] [place] [address], [place] Potassium [Moles/Vol] 4.1 mmol/L Normal 3.5-5.1 [facility] Comment on above: Performed By: #### 0 0071 #### [facility] [address] [place] [address], [place] Sodium [Moles/Vol] 132 mmol/L Low 136-145 [facility] Comment on above: Performed By: #### 0 0071 #### [facility] [address] Urea nitrogen [Mass/Vol] 21 mg/dL Normal 7-25 [facility] Comment on above: Performed By: #### 0 1 #### [facility] [address] CBC W/DIFFon 07-13-2018 ABS BASOPHILS 0.0 10*3/uL Normal 0.0-0.2 [facility] Comment on above: Performed By: #### 5 3 #### [facility] [address] ABS IMM GRANS 0.0 10*3/uL Normal 0.0-0.2 [facility] Comment on above: Performed By: #### 5 102 #### [facility] [address] ABS NEUTROPHILS 9.8 10*3/uL High 1.6-7.6 [facility] Comment on above: Performed By: #### 5 102 #### [facility] [address] Basophils/100 WBC (Bld) 0.4 % Normal 0.0-1.0 [facility] Comment on above: Performed By: #### 5 3 #### [facility] [address] Eosinophils (Bld) [#/Vol] 0.1 10*3/uL Normal 0.0-0.5 [facility] Comment on above: Performed By: #### 5 102 #### [facility] [address] [place] [address], [facility] Eosinophils/100 WBC (Bld) 0.5 % Normal 0.0-6.0 [facility] Comment on above: Performed By: #### 5 0103 #### [facility] [address] Erythrocyte distribution width (RBC) [Ratio] 12.2 % Normal 11.5-15.0 [facility] Comment on above: Performed By: #### 5 102 #### [facility] [address] Hematocrit (Bld) [Volume fraction] 34.8 % Low 39.0-50.0 [facility] Comment on above: Performed By: #### 3 #### [facility] [address] Hemoglobin (Bld) [Mass/Vol] 12.1 g/dL Low 13.0-17.0 [facility] Comment on above: Performed By: #### 102 #### [facility] [address] IMMATURE GRANS 0.4 % Normal 0.0-1.0 [facility] Comment on above: Performed By: #### 5 3 #### [facility] [address] Lymphocytes (Bld) [#/Vol] 0.6 10*3/uL Low 1.2-4.0 [facility] Comment on above: Performed By: #### 5 3 #### [facility] [address] Lymphocytes/100 WBC (Bld) 5.4 % Low 20.0-45.0 [facility] Comment on above: Performed By: #### 5 3 #### [facility] [address] [place] [address], [facility] MCH (RBC) [Entitic mass] 31.1 pg Normal 27.0-33.0 [facility] Comment on above: Performed By: #### 3 #### [facility] [address] MCHC (RBC) [Mass/Vol] 34.8 g/dL Normal 32.0-35.0 [facility] Comment on above: Performed By: #### 5 3 #### [facility] [address] [facility] [place] [address], [facility] MCV (RBC) [Entitic vol] 89.5 fL Normal 82.0-98.0 [facility] Comment on above: Performed By: #### 3 #### [facility] [address] [place] [address], [facility] Monocytes (Bld) [#/Vol] 0.5 10*3/uL Normal 0.1-1.0 [facility] Comment on above: Performed By: #### 102 #### [facility] [address] [facility]. [address] MONOS 4.3 % Low 5.0-12.0 [facility] Comment on above: Performed By: #### 5 3 #### [facility] [address] [place] [address], [facility] Neutrophils/100 WBC (Bld) 89.0 % High 40.0-72.0 [facility] Comment on above: Performed By: #### 3 #### [facility] [address] [place] [address], [facility] Nucleated RBC/100 WBC (Bld) [Ratio] 0 % Normal 0-0 [facility] Comment on above: Performed By: #### 5 3 #### [facility] [address] [place] [address], [facility] PLAT CNT 177 10*3/uL Normal 150-400 [facility] Comment on above: Performed By: #### 3 #### [facility] [address] [place] [address], [facility] RBC (Bld) [#/Vol] 3.89 10*6/uL Low 4.20-5.[address] [facility] Comment on above: Performed By: #### 5 0103 #### [facility] [address] [place] [address], [facility] WBC (Bld) [#/Vol] 11.04 10*3/uL High 4.00-10.60 [facility] Comment on above: Performed By: #### 5 0103 #### [facility] [address] [place] [address], [facility] FEMUR RIGHT 2 VWSon 07-13-20 18 FEMUR RIGHT 2 VWS [facility] Department of Radiology [address] [place] [id number] ======== Patient Name: ZACH MANUEL : 1945 Sex: M Age: Race: White Pt. Location: [id number] Patient Status: I Ordered Date: 07/13/2018 7:00:00 AM Completed Date: 07/13/2018 01:57 PM Requesting Provider: DANIELA ANTONY Attending Provider: DANIELA ANTONY Report Copy To: Signs & Symptoms: RT FEMUR IM NAIL History: RT FEMUR IM NAIL Comments: RT FEMUR IM NAIL Exam: FEMUR RIGHT 2 VWS ======== FEMUR RIGHT 2 VWS 07/13/2018 1:57 PM EDT SIGNS AND SYMPTOMS: RT FEMUR IM NAIL TECHNOLOGIST COMMENTS: right hip IM nail Dr. Antony 5 minutes 17 seconds QUESTION FOR THE RADIOLOGIST: RT FEMUR IM NAIL PROTOCOL: AP(PA) and Lateral views were obtained. COMPARISON: None FINDINGS: Soft tissues: Bones: Joints: IMPRESSION: Documentation Electronically signed by:Soila Morris. Transcribed by: [email or web address], User Resident: Electronically Signed by: SOILA MORRIS @ 07/15/2018 12:16 PM Normal [facility] Comment on above: Order Comment: RT FE MUR IM NAIL FEMUR RIGHT 2 VWS [facility] Department of Radiology [address] [place] [id number] ======== Patient Name: ZACH MANUEL : 1945 Sex: M Age: Race: White Pt. Location: [facility] Patient Status: I Ordered Date: 07/12/2018 9:40:00 PM Completed Date: 07/12/2018 10:35 PM Requesting Provider: MARY VELEZ Attending Provider: MARY VELEZ Report Copy To: Signs & Symptoms: Pain ( specify Location) History: Patient history not available Comments: R/O FX, right knee Exam: FEMUR RIGHT 2 [facility] ======== FEMUR RIGHT 2 S 07/12/2018 10:35 PM [...] findings. Electronically signed by:Zoran Cobb. Transcribed by: [email or web address], User Resident: RENAN SEWELL Electronically Signed by: ZORAN COBB @ 07/13/2018 06:51 PM I personally read this/these film(s) with this resident Normal [facility] Comment on above: Order Comment: R/O F X, right knee History and Physicalon 07-13 History and Physical MR#: [id number] [facility] Pt. Name: Zach Manuel Admitted: 07/13/2018 Date of : 1945 Attending Physician: Natalie Barajas M.D. Room #: [id number] Discharge Date: HISTORY AND PHYSICAL CHIEF COMPLAINT: Fall, right hip fracture. HISTORY OF PRESENT ILLNESS: The patient is a 73-year-old gentleman with past medical history of diabetes, multiple myeloma that was treated and now under surveillance, Paget's disease and ulcerative colitis, presented to the ER as a transfer from [facility] ER. Orthopedist service accepted the patient for treatment of right hip fracture. The patient reports that today approximately 6 hours prior to arrival to [facility] ER, he was accidentally hit by his [...] We will provide DVT and GI prophylaxis. Housekeeping/Laundry Supervisor for possible rehab placement and PT and OT once the patient will have surgery. Electronically Signed by: Natalie Barajas M.D. 07/14/2018 12:41 A Natalie Barajas M.D. Date Dict: 07/13/201801:20 A/Natalie Barajas M.D. Date Trans: 07/13/2018 06:08 A/tata [id number] Normal [facility] Operative Reporton 07-13-201 8 Operative Report MR#: [id number] I [facility] Pt. Name: Zach Manuel Room #: [id number] Discharge Date: Birthdate: 1945 OPERATIVE REPORT DATE OF SURGERY: 07/13/2018 SURGEON: Daniela Antony M.D. LIQUEFIED NATURAL GAS OPERATOR: Rob Gomez M.D. PREOPERATIVE DIAGNOSIS: Right subtrochanteric [...] The distal interlocking screws, we used perfect benton technique. The guide pin was placed under [...] Gomez MD Date Trans: 07/13/2018 09:17 P/tata [id number] cc: Hanna Mathias M.D. [address] [place] [address] Normal [facility] POC GLUCOSE LABon 07-13-2018 Glucose [Mass/Vol] 249 mg/dL High 70-100 [facility] Comment on above: Performed By: #### 8 5499 #### [facility] [address] [place] [address], [facility] Glucose [Mass/Vol] 226 mg/dL High 70-100 [facility] Comment on above: Performed By: #### 8 5499 #### [facility] [address] [place] [address], [place] Glucose [Mass/Vol] 144 mg/dL High 70-100 [facility] Comment on above: Performed By: #### 8 5499 #### [facility] [address] [place] [address], [facility] Glucose [Mass/Vol] 130 mg/dL High 70-100 [facility] Comment on above: Performed By: #### 8 5499 #### [facility] [address] [place], [place] [address] [place] [address] PROTHROMBIN TIMEon 8 INR Coag (PPP) [Relative time] 1.01 {INR} Normal 0.91-1.16 [facility] Comment on above: Result Comment: ACCC P [...] CHEST 1995;[id number]. Performed By: #### 5 6101, 26745 #### [facility] [address] [place] [address], [facility] PT Coag (PPP) [Time] 13.3 s Normal 12.3-14.8 [facility] Comment on above: Result Comment: ALL RESULTS MUST BE INTERPRETED WITH RESPECT TO BLOOD DRAWING ARTIFACT OR DILUTION ERROR OF ANTICOAGULANT AT THE TIME OF SAMPLING. Performed By: #### 5 6101, 90643 #### [facility] [address] [place] [id number], [facility] TYPE AND SCREENon 07-13-2018 ABO INTERPRETATION O Normal [facility] Comment on above: Performed By: #### 6 2586 #### [facility] [address] [place] [address], [facility] RH INTERPRETATION Positive Normal [facility] Comment on above: Performed By: #### 6 2586 #### [facility] [address] [place] [address], [facility] RBC'S 2 UNITSon 07-12-2018 CROSSMATCH INTERP 1 COMP Normal [facility] Comment on above: Performed By: #### 8 6002 #### [facility] [address] [place] [address], [place] CROSSMATCH INTERP 2 COMP Normal [facility] Comment on above: Performed By: #### 8 6002 #### [facility] [address] [place] [address], [place] PRODUCT CODE 1 E0336 Normal [facility] Comment on above: Performed By: #### 8 6002 #### [facility] [address] [place] [address], [facility] PRODUCT CODE 2 E0336 Normal [facility] Comment on above: Performed By: #### 8 6002 #### [facility] [address] [place] [address], [facility] PRODUCT STATUS 1 RE Normal [facility] Comment on above: Result Comment: Resu lt changed by IF on 07/16/2018 09:30. The previous value was XM. Performed By: #### 8 6002 #### [facility] [address] [place] [address], [facility] PRODUCT STATUS 2 RE Normal [facility] Comment on above: Result Comment: Resu lt changed by IF on 07/16/2018 09:30. The previous value was XM. Performed By: #### 8 6002 #### [facility] [address] [place] [address], [facility] UNIT ABO 1 O Normal [facility] Comment on above: Performed By: #### 8 6002 #### [facility] [address] [place] [address], [facility] UNIT ABO 2 O Normal [facility] Comment on above: Performed By: #### 8 6002 #### [facility] [address] [place] [address], [facility] UNIT ID 1 [id number] Normal [facility] Comment on above: Performed By: #### 8 6002 #### [facility] [address] [place] [address], [facility] UNIT ID 2 [id number] Normal [facility] Comment on above: Performed By: #### 8 6002 #### [facility] [address] [place] [address], [place] UNIT RH 1 Positive Normal [facility] Comment on above: Performed By: #### [id number] #### [facility] [address] [place] [address], [facility] UNIT RH 2 Positive Normal [facility] Comment on above: Performed By: #### [id number] #### [facility] [address] [place] [address], [facility] Vital Signs Date Time Vital Sign Value Performing Clinician Facility 10-09-2024 09:59-0500 Body height 175.3 cm Pmh 2 [facility] 10-09-2024 09:59-0500 Body mass index (BMI) [Ratio] 26.58 kg/m2 Pm 2 [facility] 10-09-2024 09:59-0500 Body weight 81.65 kg Pm 2 [facility] 05-27-2024 12:53-0400 Body height 175.3 cm Latrice Sulaiman PA-C Work Phone: [facility] 05-27-2024 12:53-0400 Body mass index (BMI) [Ratio] 27.73 kg/m2 Latrice Sulaiman PA-C Work Phone: [facility] 05-27-2024 12:53-0400 Body temperature 97.9 [degF] Latrice Sulaiman PA-C Work Phone: [facility] 05-27-2024 12:53-0400 Body weight 85.2 kg Latrice Sulaiman PA-C Work Phone: [facility] 05-27-2024 12:53-0400 Diastolic blood pressure 65 mm[Hg] Latrice Uslaiman PA-C Work Phone: [facility] 05-27-2024 12:53-0400 Heart rate 63 /min Latrice Sulaiman PA-C Work Phone: [facility] 05-27-2024 12:53-0400 Respiratory rate 16 /min Latrice Sulaiman PA-C Work Phone: [facility] 05-27-2024 12:53-0400 SaO2% (BldA) [Mass fraction] 98 % Latrice Sulaiman PA-C Work Phone: [facility] 05-27-2024 12:53-0400 Systolic blood pressure 117 mm[Hg] Latrice Hilario PA-C Work Phone: [facility] 02-26-2024 12:53-0400 Body height 175.3 cm Uriel Gunter MD Work Phone: [facility] 02-26-2024 12:53-0400 Body mass index (BMI) [Ratio] 27.43 kg/m2 Uriel Gunter MD Work Phone: [facility] 02-26-2024 12:53-0400 Body temperature 97.59 [degF] Uriel Gunter MD Work Phone: [facility] 02-26-2024 12:53-0400 Body weight 84.3 kg Uriel Gunter MD Work Phone: [facility] 02-26-2024 12:53-0400 Diastolic blood pressure 68 mm[Hg] Uriel Gunter MD Work Phone: [facility] 02-26-2024 12:53-0400 Heart rate 59 /min Uriel Gunter MD Work Phone: [facility] 02-26-2024 12:53-0400 Respiratory rate 18 /min Uriel Gunter MD Work Phone: [facility] 02-26-2024 12:53-0400 SaO2% (BldA) [Mass fraction] 97 % Uriel Gunter MD Work Phone: [facility] 02-26-2024 12:53-0400 Systolic blood pressure 126 mm[Hg] Uriel Gunter MD Work Phone: [facility] 11-27-2023 13:02-0500 Body height 175.3 cm Claudia Wilson APRN.ELECTRONICS ENGINEERING MANAGER Work Phone: [facility] 11-27-2023 13:02-0500 Body temperature 97.9 [degF] Claudia Wilosn APRN.ELECTRONICS ENGINEERING MANAGER Work Phone: [facility] 11-27-2023 13:02-0500 Body weight 87.7 kg Claudia Wilson SOFTWARE DEVELOPMENT LEADER.ELECTRONICS ENGINEERING MANAGER Work Phone: [facility] 11-27-2023 13:02-0500 Diastolic blood pressure 51 mm[Hg] Claudia Wilson SOFTWARE DEVELOPMENT LEADER.ELECTRONICS ENGINEERING MANAGER Work Phone: [facility] 11-27-2023 13:02-0500 Heart rate 65 /min Claudia Wilson SOFTWARE DEVELOPMENT LEADER.ELECTRONICS ENGINEERING MANAGER Work Phone: [facility] 11-27-2023 13:02-0500 Respiratory rate 18 /min Claudia Wilson SOFTWARE DEVELOPMENT LEADER.ELECTRONICS ENGINEERING MANAGER Work Phone: [facility] 11-27-2023 13:02-0500 SaO2% (BldA) [Mass fraction] 97 % Claudia Wilson SOFTWARE DEVELOPMENT LEADER.ELECTRONICS ENGINEERING MANAGER Work Phone: [facility] 11-27-2023 13:02-0500 Systolic blood pressure 154 mm[Hg] Claudia Wilson SOFTWARE DEVELOPMENT LEADER.ELECTRONICS ENGINEERING MANAGER Work Phone: [facility] 08-28-2023 13:08-0500 Body height 175.3 cm Uriel Gunter MD Work Phone: [facility] 08-28-2023 13:08-0500 Body temperature 97.2 [degF] Uriel Gunter MD Work Phone: [facility] 08-28-2023 13:08-0500 Body weight 86.27 kg Uriel Gunter MD Work Phone: [facility] 08-28-2023 13:08-0500 Diastolic blood pressure 68 mm[Hg] Uriel Gunter MD Work Phone: [facility] 08-28-2023 13:08-0500 Heart rate 62 /min Uriel Gunter MD Work Phone: [facility] 08-28-2023 13:08-0500 Respiratory rate 20 /min Uriel Gunter MD Work Phone: [facility] 08-28-2023 13:08-0500 SaO2% (BldA) [Mass fraction] 98 % Uriel Gunter MD Work Phone: [facility] 08-28-2023 13:08-0500 Systolic blood pressure 119 mm[Hg] Uriel Gunter MD Work Phone: [facility] 05-29-2023 12:40-0400 Body height 175.3 cm Uriel Gunter MD Work Phone: [facility] 05-29-2023 12:40-0400 Body temperature 97.2 [degF] Uriel Gunter MD Work Phone: [facility] 05-29-2023 12:40-0400 Body weight 87.45 kg Uriel Gunter MD Work Phone: [facility] 05-29-2023 12:40-0400 Diastolic blood pressure 49 mm[Hg] Uriel Gunter MD Work Phone: [facility] 05-29-2023 12:40-0400 Heart rate 56 /min Uriel Gunter MD Work Phone: [facility] 05-29-2023 12:40-0400 Respiratory rate 16 /min Uriel Gunter MD Work Phone: [facility] 05-29-2023 12:40-0400 SaO2% (BldA) [Mass fraction] 98 % Uriel Gunter MD Work Phone: [facility] 05-29-2023 12:40-0400 Systolic blood pressure 136 mm[Hg] Uriel Gunter MD Work Phone: [facility] 12-05-2022 13:00-0400 Body height 175.3 cm Uriel Gunter MD Work Phone: [facility] 12-05-2022 13:00-0400 Body temperature 97.11 [degF] Uriel Gunter MD Work Phone: [facility] 12-05-2022 13:00-0400 Body weight 85.55 kg Uriel Gunter MD Work Phone: [facility] 12-05-2022 13:00-0400 Diastolic blood pressure 58 mm[Hg] Uriel Gunter MD Work Phone: [facility] 12-05-2022 13:00-0400 Heart rate 60 /min Uriel Gunter MD Work Phone: [facility] 12-05-2022 13:00-0400 Respiratory rate 18 /min Uriel Gunter MD Work Phone: [facility] 12-05-2022 13:00-0400 SaO2% (BldA) [Mass fraction] 97 % Uriel Gunter MD Work Phone: [facility] 12-05-2022 13:00-0400 Systolic blood pressure 135 mm[Hg] Uriel Gunter MD Work Phone: [facility] 09-12-2022 15:00-0500 Body height 175.3 cm Uriel Gunter MD Work Phone: [facility] 09-12-2022 15:00-0500 Body temperature 97.59 [degF] Uriel Gunter MD Work Phone: [facility] 09-12-2022 15:00-0500 Body weight 87.82 kg Uriel Gunter MD Work Phone: [facility] 09-12-2022 15:00-0500 Diastolic blood pressure 53 mm[Hg] Uriel Gunter MD Work Phone: [facility] 09-12-2022 15:00-0500 Heart rate 67 /min Uriel Gunter MD Work Phone: [facility] 09-12-2022 15:00-0500 Respiratory rate 18 /min Uriel Gunter MD Work Phone: [facility] 09-12-2022 15:00-0500 SaO2% (BldA) [Mass fraction] 97 % Uriel Gunter MD Work Phone: [facility] 09-12-2022 15:00-0500 Systolic blood pressure 123 mm[Hg] Uriel Gunter MD Work Phone: [facility] 06-20-2022 12:37-0400 Body height 175.3 cm Claudia Wilson APRN.CNP Work Phone: [facility] 06-20-2022 12:37-0400 Body temperature 97.11 [degF] Claudia Wilson APRN.ELECTRONICS ENGINEERING MANAGER Work Phone: [facility] 06-20-2022 12:37-0400 Body weight 89.81 kg Claudia Wilson APRN.ELECTRONICS ENGINEERING MANAGER Work Phone: [facility] 06-20-2022 12:37-0400 Diastolic blood pressure 52 mm[Hg] Claudia Wilson APRN.ELECTRONICS ENGINEERING MANAGER Work Phone: [facility] 06-20-2022 12:37-0400 Heart rate 79 /min Claudia Wilson APRN.ELECTRONICS ENGINEERING MANAGER Work Phone: [facility] 06-20-2022 12:37-0400 Respiratory rate 16 /min Claudia Wilson APRN.ELECTRONICS ENGINEERING MANAGER Work Phone: [facility] 06-20-2022 12:37-0400 SaO2% (BldA) [Mass fraction] 97 % Claudia Wilson APRN.ELECTRONICS ENGINEERING MANAGER Work Phone: [facility] 06-20-2022 12:37-0400 Systolic blood pressure 152 mm[Hg] Claudia Wilson APRN.ELECTRONICS ENGINEERING MANAGER Work Phone: [facility] 03-21-2022 12:49-0400 Body height 175.3 cm Uriel Gunter MD Work Phone: [facility] 03-21-2022 12:49-0400 Body temperature 97 [degF] Uriel Gunter MD Work Phone: [facility] 03-21-2022 12:49-0400 Body weight 88.81 kg Uriel Gunter MD Work Phone: [facility] 03-21-2022 12:49-0400 Diastolic blood pressure 54 mm[Hg] Uriel Gunter MD Work Phone: [facility] 03-21-2022 12:49-0400 Heart rate 65 /min Uriel Gunter MD Work Phone: [facility] 03-21-2022 12:49-0400 Respiratory rate 16 /min Uriel Gunter MD Work Phone: [facility] 03-21-2022 12:49-0400 SaO2% (BldA) [Mass fraction] 100 % Uriel Gunter MD Work Phone: [facility] 03-21-2022 12:49-0400 Systolic blood pressure 138 mm[Hg] Uriel Gunter MD Work Phone: [facility] 01-24-2022 12:42-0400 Body height 175.3 cm Uriel Gunter MD Work Phone: [facility] 01-24-2022 12:42-0400 Body temperature 98.01 [degF] Uriel Gunter MD Work Phone: [facility] 01-24-2022 12:42-0400 Body weight 88.91 kg Uriel Gunter MD Work Phone: [facility] 01-24-2022 12:42-0400 Diastolic blood pressure 50 mm[Hg] Uriel Gunter MD Work Phone: [facility] 01-24-2022 12:42-0400 Heart rate 64 /min Uriel Gunter MD Work Phone: [facility] 01-24-2022 12:42-0400 Respiratory rate 18 /min Uriel Gunter MD Work Phone: [facility] 01-24-2022 12:42-0400 SaO2% (BldA) [Mass fraction] 98 % Uriel Gunter MD Work Phone: [facility] 01-24-2022 12:42-0400 Systolic blood pressure 136 mm[Hg] Uriel Gunter MD Work Phone: [facility] Encounters Encounter Date Encounter Type Care Provider Facility Start: 12-11-2024 End: 12-11-2024 Refill Porsche Adame [facility] Work Phone: [facility] Comment on above: Refill Request Start: 11-20-2024 End: 11-20-2024 Evaluation and management of inpatient MARY ZARATE [facility] Start: 11-20-2024 End: 11-20-2024 Evaluation and management of inpatient BERNRADO STAPLETON [facility] Start: 11-19-2024 End: 11-19-2024 ambulatory [facility] Pat Phone Call Provider 1 [facility] - Pre Admit Start: 11-19-2024 End: 11-19-2024 ambulatory BERNARDO STAPLETON [facility] Start: 11-17-2024 End: 11-17-2024 Refill Uriel Gunter MD Work Phone: [facility] Comment on above: Refill Request Start: 10-30-2024 End: 10-30-2024 Evaluation and management of inpatient EDGAR JUSTICE [facility] Start: 10-30-2024 End: 10-30-2024 Evaluation and management of inpatient BERNARDO STAPLETON [facility] Start: 10-10-2024 End: 10-10-2024 Refill Ainsley Reinoso [facility] Work Phone: [facility] Comment on above: Refill Request Start: 10-09-2024 End: 10-09-2024 ambulatory MARY ZARATE [facility] Start: 10-09-2024 Encounter for other preprocedural examination HANNA Rona [facility] Start: 10-09-2024 End: 10-09-2024 Patient encounter procedure Pmh Pre-Admission Testing 2 [facility] - Pre Admit Comment on above: Preop examination (P rimary Dx) Start: 10-09-2024 End: 10-09-2024 Preprocedural examination done Pm 2 [facility] [employer] [facility] Start: 09-11-2024 End: 09-11-2024 Refill Uriel Gunter MD Work Phone: [facility] Comment on above: Refill Request Start: 08-11-2024 End: 08-11-2024 Refill Uriel Gunter MD Work Phone: [facility] Comment on above: Refill Request Start: 07-25-2024 End: 07-25-2024 ambulatory Ainsley Reinoso [facility] Work Phone: [facility] Start: 07-25-2024 End: 07-25-2024 E-mail encounter from caregiver Ainsley Reinoso [facility] Work Phone: [facility] Start: 06-30-2024 End: 06-30-2024 Refill Uriel Gunter MD Work Phone: [facility] Comment on above: Refill Request Start: 06-04-2024 End: 06-04-2024 Refill Uriel Gunter MD Work Phone: [facility] Comment on above: Refill Request Start: 05-29-2024 End: 05-29-2024 Telephone encounter Juan Ferguson RN Work Phone: Hematology/Oncology Comment on above: Care Coordination (L ab Results) Start: 05-27-2024 End: 05-27-2024 Telephone encounter Latrice Hilario PA-C Work Phone: Hematology/Oncology Comment on above: Results Start: 05-27-2024 End: 05-27-2024 Office outpatient visit 15 minutes Latrice Hilario PA-C Work Phone: Hematology/Oncology Comment on above: Multiple myeloma not having achieved remission (HCC) (Primary Dx); Type 2 diabetes mellitus without complication, with long-term current use of insulin (HCC) Start: 05-27-2024 End: 05-27-2024 ambulatory LATRICE HILARIO Facility:[facility] Start: 05-20-2024 End: 05-20-2024 Telephone encounter Latrice Hilario PA-C Work Phone: Hematology/Oncology Comment on above: Lab Orders Start: 05-09-2024 Refill Ainsley Griffin ick [facility] Work Phone: [facility] Comment on above: Refill Request Start: 04-08-2024 Refill Uriel Gunter MD Work Phone: [facility] Comment on above: Refill Request Start: 03-06-2024 Refill Uriel Gunter MD Work Phone: [facility] Comment on above: Refill Request Start: 02-29-2024 Telephone encounter Juan escalante RN Work Phone: Hematology/Oncology Comment on above: Care Coordination (L abs) Start: 02-26-2024 End: 02-26-2024 Patient encounter procedure Uriel Gunter MD Work Phone: Hematology/Oncology Start: 02-26-2024 End: 02-26-20[address] [place] [address] Work Phone: Hematology/Oncology Comment on above: Multiple [...] specific antigen (PSA) Start: 02-06-2024 Refill Ainsley YoungerDelisa collado [facility] Work Phone: [facility] Comment on above: Refill Request (revl imid) Start: 01-28-2024 Refill Porsche Adame [facility] Work Phone: [facility] Comment on above: Refill Request Start: 01-08-2024 Refill Uriel Gunter MD Work Phone: [facility] Comment on above: Refill Request Start: 12-10-2023 Refill Porsche Adame [facility] Work Phone: [facility] Comment on above: Refill Request Start: 11-27-2023 End: 11-27-2023 Patient encounter procedure Claudia Wilson APRN.CNP Work Phone: [place] Start: 11-27-2023 End: 11-27-2023 ambulatory Claudia Wilson APRNGiorgioELECTRONICS ENGINEERING MANAGER Work Phone: Hematology/Oncology Comment on above: Multiple [...] Refill Request Start: 08-28-2023 End: 08-28-2023 ambulatory Chair Barnes Karnes Work Phone: Hematology/Oncology Comment on above: Multiple [...] encounter procedure Uriel Gunter MD Work Phone: [place] Start: 08-28-2023 End: 08-28-2023 ambulatory HANNA MATHIAS Facility:[facility] Start: 08-20-2023 Refill Uriel Gunter MD Work Phone: [facility] Comment on above: Refill Request Start: 07-18-2023 Refill Ainsley collado [facility] Work Phone: [facility] Comment on above: Refill Request Start: 05-31-2023 Telephone encounter Mary Kay Peña Hematology/Oncology Comment on above: Results Start: 05-29-2023 End: 05-29-2023 ambulatory Uriel Gunter MD Work Phone: Hematology/Oncology Comment on above: Multiple myeloma not having achieved remission (HCC) (Primary Dx); Stage 3b chronic kidney disease (HCC); Type 2 diabetes mellitus without complication, with long-term current use of insulin (HCC); Paget disease of bone; H/O ulcerative colitis Start: 05-29-2023 End: 05-29-2023 Patient encounter procedure Uriel Gunter MD Work Phone: [place] Start: 04-18-2023 Refill Aiden Hatfield MD Work Phone: [facility] Comment on above: Refill Request Start: 02-27-2023 Telephone encounter Uriel mcdaniels MD Work Phone: Hematology/Oncology Comment on above: Lab Orders Start: 02-05-2023 Refill Porsche Adame RP Work Phone: [facility] Comment on above: Refill Request Start: 12-28-2022 Refill Ainsley McKitr ick [facility] Work Phone: [facility] Comment on above: Refill Request Start: 12-19-2022 Refill Ainsley McKitr ick [facility] Work Phone: [facility] Comment on above: Refill Request Start: 12-05-2022 End: 12-05-2022 ambulatory Chair [address] [place] [address] Work Phone: Hematology/Oncology Comment on above: Multiple myeloma, re mission status unspecified (HCC) (Primary Dx) Multiple myeloma not having achieved remission (HCC) (Primary Dx); Paget disease of bone; Type 2 diabetes mellitus without complication, with long-term current use of insulin (HCC); Elevated prostate specific antigen (PSA) Start: 12-05-2022 End: 12-05-2022 Patient encounter procedure Uriel Gunter MD Work Phone: [place] Start: 11-27-2022 Telephone encounter Uriel mcdaniels MD Work Phone: Hematology/Oncology Comment on above: Lab Orders Start: 11-16-2022 Refill Porsche Adame [facility] Work Phone: [facility] Comment on above: Refill Request Start: 10-16-2022 Refill Ainsley Griffin ichumaira [facility] Work Phone: [facility] Comment on above: Refill Request Start: 09-21-2022 Refill Ainsley Griffin ichumaira [facility] Work Phone: Hematology/Oncology Comment on above: Refill [...] encounter procedure Uriel Gunter MD Work Phone: [place] Start: 08-28-2022 End: 08-29-[address] HANNA MATHIAS Facility: Start: 08-11-2022 Refill Ainsley Griffin ichumaira [facility] Work Phone: Hematology/Oncology Comment on above: Refill Request Start: 06-20-2022 Telephone encounter Juan Ferguson Hematology/Oncology Comment on above: Care Coordination (C alcium) Start: 06-20-2022 End: 06-20-2022 ambulatory Chair Bonita Yepez Work Phone: Hematology/Oncology Comment on above: Multiple myeloma, re mission status unspecified (HCC) (Primary Dx) Multiple myeloma not having achieved remission (HCC) (Primary Dx); Paget disease of bone; Type 2 diabetes mellitus without complication, with long-term current use of insulin (HCC); Elevated prostate specific antigen (PSA) Start: 06-20-2022 End: 06-20-2022 Patient encounter procedure Claudia Wilson APRN.CNP Work Phone: [place] Start: 06-16-2022 Refill Porsche Adame [facility] Work Phone: [facility] Comment on above: Refill Request Start: 06-15-2022 Telephone encounter Uriel mcdaniels MD Work Phone: Hematology/Oncology Comment on above: Lab Orders Start: 05-19-2022 Refill Ainsley Gaby ick [facility] Work Phone: Hematology/Oncology Comment on above: Refill Request Start: 04-20-2022 Refill Quita Antoine [facility] Work Phone: [facility] Comment on above: Refill Request Start: 2022 Refill Quita Antoine [facility] Work Phone: [facility] Comment on above: Refill Request (ansley lidomide) 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[facility]) Start: 03-24-2022 Telephone encounter Funmilayo Arriola RN [...] encounter procedure Uriel Gunter MD Work Phone: [place] Start: 03-15-2022 End: 03-15-[address] HANNA MATHIAS Facility:[facility] Start: 03-14-2022 End: 03-15-[address] HANNA MATHIAS Facility:[facility] Start: 02-24-2022 Refill Ainsley Griffin ick [facility] Work Phone: Hematology/Oncology Comment on above: Refill Request Start: 01-30-2022 Refill Quita Antoine [facility] Work Phone: [facility] Comment on above: Refill [...] Uriel Gunter MD Work Phone: [place] Start: 01-02-2022 Refill Porsche Adame [facility] Work Phone: [facility] Comment on above: Refill Request Start: 12-20-2021 End: 12-21-[address] ROXANA LEWIS Facility:[facility] Start: 11-10-2021 End: 11-11-[address] ROXANA LEWIS Facility:[facility] Start: 09-12-2021 End: 09-12-[address] HANNA MATHIAS Facility:[facility] Start: 09-10-2021 End: 09-11-[address] HANNA MATHIAS Facility:[facility] Start: 07-13-2018 End: 07-16-2018 Evaluation and management of inpatient HANNA MATHIAS Facility:[facility] Procedures Date Procedure Procedure Detail Performing Clinician Start: 03-21-2022 Adult depression scr eening assessment Uriel Gunter MD Work Phone: Start: 03-14-[address] ROLA MATHIAS Comment on above: Performed By: #### P SASC #### [facility] [address] [place] [address] Dr. Tigre Gant Start: 11-10-[address] ROLA MATHIAS Comment on above: Performed By: #### P SAD #### [facility] [address] [place] [address] Dr. Tigre Gant Start: 08-16-2021 Adult depression scr eening assessment Porsche Adame [facility] Work Phone: Start: 07-16-2018 REPOSITION R UP FEMU R WITH INTRAMED FIX, PERC APPROACH DAINELA EBRAHEIM Start: 07-13-2018 INTRODUCTION OF SERUM/TOX/VACCINE INTO MUSCLE, PERC APPROACH FRANCISSIR HUSSEIN Start: 07-13-2018 Antibody screen HANNA MATHIAS Comment on above: Performed By: #### [id number] #### [facility] [address] Plan of Treatment Date Care Activity Detail Author Start: 11-20-2025 Tobacco Screening Tobacco Screening [facility] Start: 10-09-2025 Tobacco Screening Tobacco Screening [facility] Start: 05-27-2025 Complete blood count Hemoglobin/[facility] Start: 05-27-2025 Creatinine measurement Serum Creatin ine [facility] Start: 02-25-2025 Complete blood count Hemoglobin/[facility] Start: 02-25-2025 Creatinine measurement Serum Creatin ine [facility] Start: 11-26-2024 Complete blood count Hemoglobin/[facility] Start: 11-26-2024 Creatinine measurement Serum Creatin ine [facility] Start: 11-20-2024 End: 11-20-2024 Admission to same day surgery center 11/20/2024 9:45 AM EST - 11/20/2024 10:30 AM EST Surgery [facility] [address] [place] [address] Bernardo Stapleton MD [address] [place] [id number] EXTRACTION CATARACT INTRAOCULAR LENS [35582 (CPT )] [facility] Comment on above: EXTRACTION CATARACT INTRAOCULAR LENS [02575 (CPT )] Start: 11-20-2024 Subsequent hospital visit by physician 11/20/2024 9:45 AM EST Hospital Encounter [facility] [address] [place] [address] [place] [address] [place] [id number] [facility] Start: 11-20-2024 End: 11-20-2024 Xcapsl ctrc rmvl insj io lens prosth w/o ecp [facility] Start: 11-19-2024 End: 11-19-2024 ambulatory 11/19/2024 3:50 PM EST Support Visit [facility] Admit [address] [place] [id number] [facility] - Pre Admit Start: 10-30-2024 End: 10-30-2024 Admission to same day [facility] 10/30/2024 9:45 AM EST - 10/30/2024 10:30 AM EST Surgery [facility] [address] [place] [id number] Bernardo Stapleton MD [address] [place] [address] [id number] EXTRACTION CATARACT INTRAOCULAR LENS [71338 (CPT )] [facility] Comment on above: EXTRACTION CATARACT INTRAOCULAR LENS [26877 (CPT )] Start: 10-30-2024 Subsequent hospital visit by physician 10/30/2024 9:45 AM EST Hospital Encounter [facility] - Surgery [address] [place] [phone] Bernardo Stapleton MD [address] [place] [address] [phone] [facility] - Surgery Start: 10-30-2024 End: 10-30-2024 Xcapsl ctrc rmvl insj io lens prosth w/o ecp EXTRACTION CATARACT INTRAOCULAR LENS cataract right eye 10/30/2024 9:45 AM EST [facility] Start: 09-24-2024 Advance Directive Discussion Advance Directive Discussion [facility] Start: 08-28-2024 Complete blood count Hemoglobin/Shaheen tocrit [facility] Start: 08-28-2024 Creatinine measurement Serum Creatin ine [facility] Start: 08-28-2024 Hemoglobin/Hematocrit Hemoglobin/Hem atocrit [facility] Start: 08-28-2024 Serum Creatinine Serum Creatinine [facility] Start: 08-26-2024 End: 11-25-2024 CBC W Auto Differential panel - Blood COMPLETE BLOOD COUNT AND DIFFERENTIAL Lab Routine Multiple myeloma not having achieved remission (HCC) Expected: 08/26/2024 (Approximate), Expires: 11/25/2024 [facility] Comment on above: Expected: 08/26/2024 (Approximate), Expires: 11/25/2024 Start: 08-26-2024 End: 11-25-2024 Comprehensive metabolic 2000 panel - Serum or Plasma COMPREHENSIVE METABOLIC PANEL Lab Routine Multiple myeloma not having achieved remission (HCC) Expected: 08/26/2024 (Approximate), Expires: 11/25/2024 [facility] Work Phone: Comment on above: Expected: 08/26/2024 (Approximate), Expires: 11/25/2024 Start: 08-26-2024 End: 11-25-2024 KAPPA/DANIELS,FREE,SER KAPPA/DANIELS,FREE,SER Lab Routine Multiple myeloma not having achieved remission (HCC) Expected: 08/26/2024 (Approximate), Expires: 11/25/2024 [facility] Comment on above: Expected: 08/26/2024 (Approximate), Expires: 11/25/2024 Start: 08-26-2024 End: 11-25-2024 MONOCLONAL PROTEIN, SERUM (BLOOD) MONOCLONAL PROTEIN, SERUM (BLOOD) Lab Routine Multiple myeloma not having achieved remission (HCC) Expected: 08/26/2024 (Approximate), Expires: 11/25/2024 [facility] Comment on above: Expected: 08/26/2024 (Approximate), Expires: 11/25/2024 Start: 08-26-2024 End: 11-25-2024 PROTEIN ELECTROPHORESIS SERUM W/INTERP PROTEIN ELECTROPHORESIS SERUM W/INTERP Lab Routine Multiple myeloma not having achieved remission (HCC) Expected: 08/26/2024 (Approximate), Expires: 11/25/2024 [facility] Comment on above: Expected: 08/26/2024 (Approximate), Expires: 11/25/2024 Start: 08-26-2024 End: 08-26-2024 Follow-up encounter Hematology/Oncology Comment on above: 3 month follow up wi th lab and aredia Start: 08-26-2024 End: 08-26-2024 Patient encounter procedure [facility] Comment on above: 3 month follow up wi th lab and aredia Start: 05-29-2024 HEMOGLOBIN/HEMATOCRIT HEMOGLOBIN/HEM ATOCRIT [facility] Start: 05-29-2024 SERUM CREATININE SERUM CREATININE Cl [facility] Start: 05-27-2024 End: 05-27-2024 Follow-up encounter Hematology/Oncology Comment on above: 3 month follow up wi th lab and aredia Start: 05-27-2024 End: 05-27-2024 Patient encounter procedure 05/27/2024 12:45 PM EDT Office Visit [facility] [address] [place] [address] [place] [address] 3 month follow up with lab and aredia [facility] Comment on above: 3 month follow up wi lab and aredia Start: 05-25-2024 Covid-19 Vaccine ( season) Covid-19 Vaccine ( season) [facility] Start: 05-25-2024 Covid-19 Vaccine ( season) Covid-19 Vaccine () [facility] Start: 05-25-2024 Influenza vaccination [facility] Start: 05-20-2024 End: 08-19-2024 CBC W Auto Differential panel - Blood COMPLETE BLOOD COUNT AND DIFFERENTIAL Lab Routine Multiple myeloma not having achieved remission (HCC) Expected: 05/20/2024, Expires: 08/19/2024 [facility] Comment on above: Expected: 05/20/2024 , Expires: 08/19/2024 Start: 05-20-2024 End: 08-19-2024 Comprehensive metabolic 2000 panel - Serum or Plasma COMPREHENSIVE METABOLIC PANEL Lab Routine Multiple myeloma not having achieved remission (HCC) Expected: 05/20/2024, Expires: 08/19/2024 [facility] Work Phone: Comment on above: Expected: 05/20/2024 , Expires: 08/19/2024 Start: 05-20-2024 End: 08-19-2024 MONOCLONAL PROTEIN, SERUM (BLOOD) MONOCLONAL PROTEIN, SERUM (BLOOD) Lab Routine Multiple myeloma not having achieved remission (HCC) Expected: 05/20/2024, Expires: 08/19/2024 [facility] Comment on above: Expected: 05/20/2024 , Expires: 08/19/2024 Start: 05-20-2024 End: 08-19-2024 PROTEIN ELECTROPHORESIS SERUM W/INTERP PROTEIN ELECTROPHORESIS SERUM W/INTERP Lab Routine Multiple myeloma not having achieved remission (HCC) Expected: 05/20/2024, Expires: 08/19/2024 [facility] Comment on above: Expected: 05/20/2024 , Expires: 08/19/2024 Start: 03-06-2024 HEMOGLOBIN/HEMATOCRIT HEMOGLOBIN/HEM ATOCRIT [facility] Start: 03-06-2024 SERUM CREATININE SERUM CREATININE Cl [facility] Start: 02-26-2024 End: 02-26-2024 Follow-up encounter Hematology/Oncology Comment on above: 3 month follow up [facility] lab and aredia Start: 02-26-2024 End: 02-26-2024 Patient encounter procedure 02/26/2024 1:00 PM EDT Office Visit [facility] [address] [place] [address] [place] [address] 3 month follow up with lab and aredia [facility] Comment on above: 3 month follow up [facility] lab and aredia Start: 01-02-2024 End: 04-02-2024 MONOCLONAL PROTEIN, SERUM (BLOOD) MONOCLONAL PROTEIN, SERUM (BLOOD) Lab Routine Multiple myeloma not having achieved remission (HCC) Paget disease of bone Type 2 diabetes mellitus without complication, with long-term current use of insulin (HCC) H/O ulcerative colitis Elevated prostate specific antigen (PSA) Stage 3b chronic kidney disease (HCC) Expected: 01/02/2024, Expires: 04/02/2024 [facility] Work Phone: Comment on above: Expected: [...] kidney disease (HCC) Expected: 12/05/2023, Expires: 03/05/2024 [facility] Work Phone: Comment on above: Expected: [...] kidney disease (HCC) Expected: 12/05/2023, Expires: 03/05/2024 [facility] Work Phone: Comment on above: Expected: 12/05/2023 , Expires: 03/05/2024 Start: 12-05-2023 End: 03-05-2024 PROT ELECT SERUM WITH TOÑITO AND INTERP PROT ELECT SERUM WITH TOÑITO AND INTERP Lab Routine Multiple myeloma not having achieved remission (HCC) Expected: 12/05/2023, Expires: 03/05/2024 [facility] Work Phone: Comment on above: Expected: 12/05/2023 , Expires: 03/05/2024 Start: 11-26-2023 End: 02-25-2024 Basic metabolic 2000 panel - Serum or Plasma BASIC METABOLIC PNL Lab Routine Multiple myeloma not having achieved remission (HCC) Expected: 11/26/2023, Expires: 02/25/2024 [facility] Work Phone: Comment on above: Expected: 11/26/2023 , Expires: 02/25/2024 Start: 11-26-2023 End: 02-25-2024 CBC W Auto Differential panel - Blood CBC + DIFF Lab Routine Multiple myeloma not having achieved remission (HCC) Expected: 11/26/2023, Expires: 02/25/2024 [facility] Work Phone: Comment on above: Expected: 11/26/2023 , Expires: 02/25/2024 Start: 11-26-2023 End: 02-25-2024 MONOCLONAL PROTEIN, SERUM (BLOOD) MONOCLONAL PROTEIN, SERUM (BLOOD) Lab Routine Multiple myeloma not having achieved remission (HCC) Expected: 11/26/2023, Expires: 02/25/2024 [facility] Work Phone: Comment on above: Expected: 11/26/2023 , Expires: 02/25/2024 Start: 11-26-2023 End: 02-25-2024 PROT ELECT SERUM WITH TOÑITO AND INTERP PROT ELECT SERUM WITH TOÑITO AND INTERP Lab Routine Multiple myeloma not having achieved remission (HCC) Expected: 11/26/2023, Expires: 02/25/2024 [facility] Work Phone: Comment on above: Expected: 11/26/2023 , Expires: 02/25/2024 Start: 09-24-2023 Advance Directive Discussion Advance Directive Discussion [facility] Start: 09-24-2023 Behavioral Health Screening Behavioral Health Screening [facility] Start: 09-24-2023 Depression Assessment Depression Ass essment [facility] Start: 09-01-2023 Covid-19 Vaccine () Covid-19 Vaccine () [facility] Start: 08-28-2023 End: 11-27-2023 MONOCLONAL PROTEIN, SERUM (BLOOD) [facility] Work Phone: Comment on above: Expected: 08/28/2023 , Expires: 11/27/2023 Start: 08-28-2023 End: 11-27-2023 PROT ELECT SERUM WITH TOÑITO AND INTERP [facility] Work Phone: Comment on above: Expected: 08/28/2023 , Expires: 11/27/2023 Start: 05-25-2023 Covid-19 Vaccine () Covid-19 Vaccine () [facility] Start: 05-25-2023 Influenza vaccination [facility] Start: 03-21-2023 Adult depression screening assessment DEPRESSION SCREENING [facility] Start: 03-06-2023 End: 05-06-2023 CBC W Auto Differential panel - Blood CBC + DIFF Lab Routine Multiple myeloma not having achieved remission (HCC) Expected: 03/06/2023, Expires: 05/06/2023 [facility] Work Phone: Comment on above: Expected: 03/06/2023 , Expires: 05/06/2023 Start: 03-06-2023 End: 05-06-2023 Comprehensive metabolic 2000 panel - Serum or Plasma COMP METABOLIC PANEL Lab Routine Multiple myeloma not having achieved remission (HCC) Expected: 03/06/2023, Expires: 05/06/2023 [facility] Work Phone: Comment on above: Expected: 03/06/2023 , Expires: 05/06/2023 Start: 03-06-2023 End: 05-06-2023 MONOCLONAL PROTEIN, SERUM (BLOOD) MONOCLONAL PROTEIN, SERUM (BLOOD) Lab Routine Multiple myeloma not having achieved remission (HCC) Expected: 03/06/2023, Expires: 05/06/2023 [facility] Work Phone: Comment on above: Expected: 03/06/2023 , Expires: 05/06/2023 Start: 03-06-2023 End: 05-06-2023 PROT ELECT SERUM WITH TOÑITO AND INTERP PROT ELECT SERUM WITH TOÑITO AND INTERP Lab Routine Multiple myeloma not having achieved remission (HCC) Expected: 03/06/2023, Expires: 05/06/2023 [facility] Work Phone: Comment on above: Expected: 03/06/2023 , Expires: 05/06/2023 Start: 12-05-2022 End: 02-04-2023 CBC W Auto Differential panel - Blood CBC + DIFF Lab Routine Multiple myeloma not having achieved remission (HCC) Expected: 12/05/2022, Expires: 02/04/2023 [facility] Work Phone: Comment on above: Expected: 12/05/2022 , Expires: 02/04/2023 Start: 12-05-2022 End: 02-04-2023 Comprehensive metabolic 2000 panel - Serum or Plasma COMP METABOLIC PANEL Lab Routine Multiple myeloma not having achieved remission (HCC) Expected: 12/05/2022, Expires: 02/04/2023 [facility] Work Phone: Comment on above: Expected: 12/05/2022 , Expires: 02/04/2023 Start: 12-05-2022 End: 02-04-2023 MONOCLONAL PROTEIN, SERUM (BLOOD) MONOCLONAL PROTEIN, SERUM (BLOOD) Lab Routine Multiple myeloma not having achieved remission (HCC) Expected: 12/05/2022, Expires: 02/04/2023 [facility] Work Phone: Comment on above: Expected: 12/05/2022 , Expires: 02/04/2023 Start: 12-05-2022 End: 02-04-2023 PROT ELECT SERUM WITH TOÑITO AND INTERP PROT ELECT SERUM WITH TOÑITO AND INTERP Lab Routine Multiple myeloma not having achieved remission (HCC) Expected: 12/05/2022, Expires: 02/04/2023 [facility] Work Phone: Comment on above: Expected: 12/05/2022 , Expires: 02/04/2023 Start: 09-24-2022 ADVANCE DIRECTIVE DISCUSSION ADVANCE DIRECTIVE DISCUSSION [facility] Start: 09-24-2022 DEPRESSION ASSESSMENT DEPRESSION ASS ESSMENT [facility] Start: 09-12-2022 End: 11-12-2022 CBC W Auto Differential panel - Blood CBC + DIFF Lab Routine Multiple myeloma not having achieved remission (HCC) Paget disease of bone Type 2 diabetes mellitus without complication, with long-term current use of insulin (HCC) Elevated prostate specific antigen (PSA) Expected: 09/12/2022, Expires: 11/12/2022 [facility] Work Phone: Comment on above: Expected: 09/12/2022 , Expires: 11/12/2022 Start: 09-12-2022 End: 11-12-2022 Comprehensive metabolic 2000 panel - Serum or Plasma COMP METABOLIC PANEL Lab Routine Multiple myeloma not having achieved remission (HCC) Paget disease of bone Type 2 diabetes mellitus without complication, with long-term current use of insulin (HCC) Elevated prostate specific antigen (PSA) Expected: 09/12/2022, Expires: 11/12/2022 [facility] Work Phone: Comment on above: Expected: 09/12/2022 , Expires: 11/12/2022 Start: 09-12-2022 End: 11-12-2022 MONOCLONAL PROTEIN, SERUM (BLOOD) MONOCLONAL PROTEIN, SERUM (BLOOD) Lab Routine Multiple myeloma not having achieved remission (HCC) Paget disease of bone Type 2 diabetes mellitus without complication, with long-term current use of insulin (HCC) Elevated prostate specific antigen (PSA) Expected: 09/12/2022, Expires: 11/12/2022 [facility] Work Phone: Comment on above: Expected: [...] specific antigen (PSA) Expected: 09/12/2022, Expires: 11/12/2022 [facility] Work Phone: Comment on above: Expected: 09/12/2022 , Expires: 11/12/2022 Start: 08-16-2022 Adult depression screening assessment DEPRESSION SCREENING [facility] Start: 08-03-2022 COVID-19 VACCINE (7 - Mixed Product risk series) COVID-19 VACCINE (7 - Mixed Product risk series) [facility] Start: 06-16-2022 End: 08-16-2022 CBC W Auto Differential panel - Blood CBC + DIFF Lab Routine Multiple myeloma not having achieved remission (HCC) Expected: 06/16/2022, Expires: 08/16/2022 [facility] Work Phone: Comment on above: Expected: 06/16/2022 , Expires: 08/16/2022 Start: 06-16-2022 End: 08-16-2022 Comprehensive metabolic 2000 panel - Serum or Plasma COMP METABOLIC PANEL Lab Routine Multiple myeloma not having achieved remission (HCC) Expected: 06/16/2022, Expires: 08/16/2022 [facility] Work Phone: Comment on above: Expected: 06/16/2022 , Expires: 08/16/2022 Start: 06-16-2022 End: 08-16-2022 MONOCLONAL PROTEIN, SERUM (BLOOD) MONOCLONAL PROTEIN, SERUM (BLOOD) Lab Routine Multiple myeloma not having achieved remission (HCC) Expected: 06/16/2022, Expires: 08/16/2022 [facility] Work Phone: Comment on above: Expected: 06/16/2022 , Expires: 08/16/2022 Start: 06-16-2022 End: 08-16-2022 PROT ELECT SERUM WITH TOÑITO AND INTERP PROT ELECT SERUM WITH TOÑITO AND INTERP Lab Routine Multiple myeloma not having achieved remission (HCC) Expected: 06/16/2022, Expires: 08/16/2022 [facility] Work Phone: Comment on above: Expected: 06/16/2022 , Expires: 08/16/2022 Start: 05-25-2022 Influenza vaccination INFLUENZA (#1) [facility] Start: 05-15-2022 COVID-19 VACCINE (5 - Booster) COVID-19 VACCINE (5 - Booster) [facility] Start: 03-23-2022 End: 05-23-2022 CBC W Auto Differential panel - Blood CBC + DIFF Lab Routine Multiple myeloma not having achieved remission (HCC) Expected: 03/23/2022, Expires: 05/23/2022 [facility] Work Phone: Comment on above: Expected: 03/23/2022 , Expires: 05/23/2022 Start: 03-23-2022 End: 05-23-2022 Comprehensive metabolic 2000 panel - Serum or Plasma COMP METABOLIC PANEL Lab Routine Multiple myeloma not having achieved remission (HCC) Expected: 03/23/2022, Expires: 05/23/2022 [facility] Work Phone: Comment on above: Expected: 03/23/2022 , Expires: 05/23/2022 Start: 03-23-2022 End: 05-23-2022 MONOCLONAL PROTEIN, SERUM (BLOOD) MONOCLONAL PROTEIN, SERUM (BLOOD) Lab Routine Multiple myeloma not having achieved remission (HCC) Expected: 03/23/2022, Expires: 05/23/2022 [facility] Work Phone: Comment on above: Expected: 03/23/2022 , Expires: 05/23/2022 Start: 03-23-2022 End: 05-23-2022 PROT ELECT SERUM WITH TOÑITO AND INTERP PROT ELECT SERUM WITH TOÑITO AND INTERP Lab Routine Multiple myeloma not having achieved remission (HCC) Expected: 03/23/2022, Expires: 05/23/2022 [facility] Work Phone: Comment on above: Expected: 03/23/2022 , Expires: 05/23/2022 Start: 03-10-2022 COVID-19 VACCINE (5 - Booster) COVID-19 VACCINE (5 - Booster) [facility] Start: 09-28-2021 COVID-19 VACCINE (4 - Booster) COVID-19 VACCINE (4 - Booster) [facility] Start: 09-24-2021 ADVANCE DIRECTIVE DISCUSSION ADVANCE DIRECTIVE DISCUSSION [facility] Start: 09-24-2021 DEPRESSION ASSESSMENT DEPRESSION ASS ESSMENT [facility] Start: 2012 Fall Risk Screening Fall Risk Screen ing [facility] Start: 2012 PNEUMOVAX AGE 65 AND OVER WITH 5YR LOOKBACK (#1) PNEUMOVAX AGE 65 AND OVER WITH 5YR LOOKBACK (#1) [facility] Start: 2007 Hepatitis B Vaccine (1 of 3 - Risk 3-dose series) Hepatitis B Vaccine (1 of 3 - Risk 3-dose series) [facility] Start: 2007 RSV Vaccine (1 - 1-d ose 60+ series) RSV Vaccine (1 - 1-dose 60+ series) [facility] Start: 1997 Administration of varicella zoster vaccine Zoster (Shingles) Vaccine (1 of 2) [facility] Start: 1997 SHINGRIX VACCINE (1 of 2) NICK GRIX VACCINE (1 of 2) [facility] Start: 1992 COLOGUARD (FIT-DNA) COLOGUARD (FIT-D NA) [facility] Start: 1992 Colonoscopy COLONOSCOPY [facility] Start: 1992 COLORECTAL CANCER SCREENING COLORECTAL CANCER SCREENING [facility] Start: [address] COLONOGRAPHY [facility] Start: 1992 FECAL OCCULT BLOOD FECAL OCCULT BLOO D [facility] Start: 1992 SIGMOIDOSCOPY SIGMOIDOSCOPY [facility] Start: 1966 DTaP,Tdap and Td Vac cines (1 - Tdap) DTaP,Tdap and Td Vaccines (1 - Tdap) [facility] Start: 1966 Pneumococcal Vaccine : 50+ (1 of 2 - PCV) Pneumococcal Vaccine: 50+ (1 of 2 - PCV) [facility] Start: 1966 SHINGRIX VACCINE (1 of 2) NICK GRIX VACCINE (1 of 2) [facility] Start: 1966 Urine microalbumin profile [facility] Start: 1965 ANNUAL PCP TEAM CHIEF YEOMAN MESSI DISEASE VISIT ANNUAL PCP TEAM CHRONIC DISEASE VISIT [facility] Start: 1965 Anxiety Screening Anxiety Screening [facility] Start: 1965 Depression Screening Depression Scre ing [facility] Start: 1965 Hepatitis B surface antibody level LDL CHOLESTEROL [facility] Start: 1965 HEPATITIS C SCREENING HEPATITIS C [facility] Start: 1965 Hepatitis C screening Hepatitis C [facility] Start: 1959 Depression Screening Depression Scre ing [facility] Start: 1957 3 comp foot exam completed DIABETIC FOOT EXAM [facility] Start: 1957 Diabetic foot examination Diabetic F oot Exam [facility] Start: 1957 Glaucoma screening Dilated Retinal E xam [facility] Start: 1957 Hepatitis B screening URINE AL BUMIN:CREATININE RATIO [facility] Start: 1957 Hepatitis C antibody , confirmatory test DILATED RETINAL EXAM [facility] Start: 1953 Pneumococcal Vaccine : 65+ (1 - PCV) Pneumococcal Vaccine: 65+ (1 - PCV) [facility] Start: 1953 Pneumococcal Vaccine : 65+ (1 of 2 - PCV) Pneumococcal Vaccine: 65+ (1 of 2 - PCV) [facility] Start: 1953 PNEUMOCOCCAL: 65+ (1 - PCV) PNEUMOCOCCAL: 65+ (1 - PCV) [facility] Start: 1952 Hemoglobin A1c measurement HbA1C [facility] Start: 1952 Hemoglobin A1c/Hemoglobin.total in Blood HBA1C [facility] Start: 1947 ABDOMINAL AORTIC ANE URYSM SCREENING ABDOMINAL AORTIC ANEURYSM SCREENING [facility] Immunizations Immunization Date Immunization Notes Care Provider Sangeetha huang 07-07-2023 respiratory syncytia l virus (RSV) vaccine, bivalent (ABRYSVO) Chair Yepez Work Phone: [facility] 06-28-2021 COVID-19 vaccine (UNSPECIFIED) [facility] Work Phone: [facility] 06-28-2021 COVID-19 vaccine, ag e 12+ yr (PFIZER-BIONTECH - [facility]) [facility] Work Phone: [facility] 06-16-2021 influenza, high-dose , quadrivalent vaccine (FLUZONE HIGH DOSE QUADRIVALENT) [facility] Work Phone: [facility] 06-16-2021 influenza virus vacc ine, unspecified formulation Ainsley Reinoso [facility] Work Phone: [facility] 11-11-2020 COVID-19 vaccine, ag e 12+ yr (PFIZER-BIONTECH - PURPLE TOP) [facility] Work Phone: [facility] 10-22-2020 COVID-19 vaccine, ag e 12+ yr (PFIZER-BIONTECH - PURPLE TOP) [facility] Work Phone: [facility] 07-05-2020 Seasonal trivalent influenza vaccine, adjuvanted, preservative free [facility] Work Phone: [facility] 07-19-2016 influenza virus vacc ine, unspecified formulation Porsche Adame [facility] Work Phone: [facility] Payers Date Payer Category Payer Medicare MEDICARE MEDICAR E A AND B [id number] 2012-Present [phone] [place] [address] Medicare [id number] 2012 Medicare [id number] 2012 Private Health Insurance [facility] INS[facility]ANCE [id number] 2012 Unknown [employer] FORETHOUGHT SUPPLEMENT [id number] 2012-Present [phone] [id number] [place] [address] Indemnity [id number] 2012 Unknown [employer]URANCE FORETHOUGHT SUPPLEMENT [id number] 2012-Present [phone] [id number] [place] [address] [facility] [id number] 1959 Medicare [id number] 1959 Unknown [id number] 1947 Unknown [id number] 2.840.1.666352.3.579. 2.647 1947 Unknown [id number] 2.840.1.868661.3.579. 2.593 1947 Unknown [id number] 2.840.1.651935.3.579. 2.593 1947 Unknown [id number] .840.1.959876.3.579. 2.593 1947 Unknown [id number] .840.1.635794.3.579. 2.593 1947 Unknown [id number] 2.840.1.212315.3.579. 2.593 1947 Unknown [id number] 840.1.320095.3.579. 2.593 1947 Unknown [id number] .0.1.382475.3.579. 2.593 1947 Unknown [id number] 840.1.973117.3.579. 2.593 1947 Unknown [id number] 11.09.830.1.404246.3.579. 2.1286 1947 Unknown [id number] 11.09.830.1.143876.3.579. 2.1286 1947 Unknown [id number] 840.1.135929.3.579. 2.1286 1947 Unknown [id number] 840.1.802605.3.579. 2.1286 1947 Unknown [id number] 2.840.1.431396.3.579. 2.1286 1947 Unknown [id number] 2840.1.528635.3.579. 2.1286 1947 Unknown [id number] 840.1.234242.3.579. 2.1286 1947 Unknown [id number] 2.16.840.1.852771.3.579. 2.1286 1947 Unknown [id number] 2.16.840.1.229791.3.579. 2.1286 Managed Care Other (unspecified) [id number] Medicare [id number] Social History Date Type Detail Facility Start: 10-20-2015 Tobacco smoking stat [facility] [facility] Work Phone: Start: 09-24-1960 End: 09-24-1990 History of tobacco use Current smoker [facility] Work Phone: Start: 09-24-1960 End: 09-24-1990 History of tobacco use Cigarette Smoker [facility] Work Phone: Start: 11-28-2021 End: 02-26-2024 Alcohol intake Current non-drinker of alcohol (finding) [facility] Start: 1945 Sex Assigned At Not on file C [facility] Start: 01-14-2022 End: 06-20-2022 Exposure to SARS-CoV-2 (event) Not sure [facility] Start: 10-20-2015 End: 03-06-2023 Cigarettes smoked current (pack per day) - Reported 2 [facility] Start: 10-20-2015 End: 10-09-2024 Tobacco use and exposure Smokeless tobacco non-user [facility] Start: 03-21-2022 End: 03-06-2023 Tobacco use panel [facility] National Score (1-10 0), lower number is lower risk 63 [facility] Start: 10-09-2024 Tobacco smoking stat [facility] Never smoked tobacco [facility] Start: 10-09-2024 End: 11-19-2024 Alcoholic beverage intake Ex-drinker (finding) [facility] Start: 04-29-2015 Sex Male (finding) [facility] Medical Equipment Procedure Code Equipment Code Equipment Origin al Text Equipment Identifier Dates Lens Iol [id number]. [address] [id number] - [id number] - [id number] Start: 10-30-2024 Lens Iol [id number]. [address] [facility] [id number] - [id number] - [id number] Start: 11-20-2024 Functional Status Date Assessment Result Facility 04-09-2015 Are you deaf, or do you have serious difficulty hearing No 04/09/2015 11:20 AM Selin Sierra MA No [facility] 04-09-2015 Are you blind, or do you have serious difficulty seeing, even when wearing glasses No 04/09/2015 [facility] Do you have serious difficulty walking or climbing stairs No 04/09/2015 11:20 AM BRYAN [facility] 04-09-2015 Do you have difficul ty dressing or bathing No 04/09/2015 11:20 AM Selin Sierra [facility] 04-09-2015 Because of a physica l, mental, or emotional condition, do you have difficulty doing errands alone such as visiting a physician's office or shopping No 04/09/2015 11:20 AM Selin Sierra MA [facility] Mental Status Date Assessment Result Facility 04-09-2015 Because of a physica l, mental, or emotional condition, do you have serious difficulty concentrating, remembering, or making decisions No 04/09/2015 11:20 AM Selin Sierra MA [facility] Clinical Notes 01-24-2022 to 11-19-2024 Perioperative Nursing Note - Nilam Ortiz RN - 11/19/2024 10:32 AM ESTPerioperative Nursing Note - Nilam Ortiz RN - 11/19/2024 10:32 AM ESTPatient Instructions Note Date & Type Note Facility 11-19-2024 Nurse Note Preoperative Education Checklist- General Surgery date: 11/20/24 Surgery time: 945a Arrival time: 745a 1. Bring a photo ID and your insurance card with you the day of surgery. You will check in at the main lobby of the [facility]- registration desk is straight ahead as soon as you walk in. Tell them you are here for surgery. 2. If you have a Living Will/Durable Power of Chief Jailer for Health Care that is not on file here, please bring a copy the day of surgery. 3. Please shower/bathe the night before surgery with the provided soap or wipes. Do not shower the morning of surgery- you will do use wipes when you arrive here at the hospital before getting into your surgical gown. Do not shave the area of your procedure for 2 days prior to your surgery. 4. NO powder, lotion, perfume/cologne, aftershave, make-up, deodorant, or hair products after you have bathed. 5. NO nail nepalese/acrylic on at least one finger. If you are having a hand, wrist or foot surgery then all nail nepalese and artificial/acrylic nails must be removed from that hand or foot. 6. Avoid ALL Aspirin and non-steroidal anti-inflammatory drugs and certain vitamins (Ibuprofen, Advil, Aleve, Excedrin, Meloxicam, Celebrex, fish/krill oil, etc.) for 7 days prior to surgery as instructed by your surgeon and/or your prescribing doctor. Tylenol IS ALLOWED. If you are on Ticlid, Xarelto, Eliquis, Pradaxa, Plavix or Coumadin, please check with your prescribing doctor for instructions for when to stop them. 7. If you use an inhaler, continue to use it routinely. 8. Nothing to eat or drink (not even water, gum, mints, or hard candy!) AFTER midnight prior to your surgery. 9. Take only medications that you are instructed to on the morning of surgery with a TINY SIP OF WATER. 10. Choose a responsible adult that will be able to drive you home when you are discharged from your hospital stay for your surgery and can stay with you in your home for 24 hours after your procedure. You must NOT drive any vehicle or operate any machinery for 24 hours after surgery. 11. When you dress for your appointment, please wear loose fitting clothing that is appropriate to accommodate your surgical area procedure. BRING WITH YOU ANY DEVICES YOU MAY NEED: MAGDALENO hose, ice machine, sling/swath, brace or special shoe, oversized zip-up or button up shirt, CPAP machine if staying overnight. 12. Do NOT wear jewelry, watches, or any piercings or metal for surgery- leave these valuables and money at home. 13. Do NOT wear contact lenses for surgery- glasses are okay if needed. 14. The anesthesiologist will talk with you the day of surgery and will ask you to sign a Consent Form. 15. Refrain from smoking or any type of tobacco use for at least 8 hours and marijuana for 24 hours prior to arrival for your surgery. 16. If a GREEN BLOOD band is given to you, please bring it with you for the day of surgery. 17. Notify your surgeon if you develop any illness before your surgery. 18. If you are staying overnight, please DO NOT BRING your home medications with you. 19. If you have any questions prior to surgery, please call the Preadmission Testing office at [phone], Mon.-Fri. 7 a.m.-3 p.m. Leave a voicemail if needed. Pre-Surgery Instructions: Medication Instructions dexAMETHasone (DECADRON) 4 mg tablet Stop taking 0 days prior to procedure glyBURIDE micronized (GLYNASE) 6 mg tablet Stop taking 0 days prior to procedure JARDIANCE 10 mg tablet tablet Stop taking 3 days prior to procedure lenalidomide (REVLIMID) 5 mg chemo capsule Stop taking 0 days prior to procedure liothyronine (CYTOMEL) 5 MCG tablet Take morning of procedure metFORMIN (GLUCOPHAGE) 500 mg tablet Stop taking 0 days prior to procedure moxifloxacin HCl (MOXIFLOXACIN 0.5%-PREDNISOLONE 1%-BROMFENAC 0.09% DROPS - BUDERER ) Check with prescribing doctor for instructions oxyCODONE (ROXICODONE) 10 MG tablet immediate release tablet Stop taking 0 days prior to procedure pantoprazole (PROTONIX) 40 mg EC tablet Take morning of procedure pioglitazone (ACTOS) 15 mg tablet Stop taking 0 days prior to procedure [facility] [employer] 11-19-2024 Miscellaneous Notes Preoperative Education Checklist- General Surgery date: 11/20/24 Surgery time: 945a Arrival time: 745a 1. Bring a photo ID and your insurance card with you the day of surgery. You will check in at the main lobby of the [facility]- registration desk is straight ahead as soon as you walk in. Tell them you are here for surgery. 2. If you have a Living Will/Durable Power of Chief Jailer for Health Care that is not on file here, please bring a copy the day of surgery. 3. Please shower/bathe the night before surgery with the provided soap or wipes. Do not shower the morning of surgery- you will do use wipes when you arrive here at the hospital before getting into your surgical gown. Do not shave the area of your procedure for 2 days prior to your surgery. 4. NO powder, lotion, perfume/cologne, aftershave, make-up, deodorant, or hair products after you have bathed. 5. NO nail nepalese/acrylic on at least one finger. If you are having a hand, wrist or foot surgery then all nail nepalese and artificial/acrylic nails must be removed from that hand or foot. 6. Avoid ALL Aspirin and non-steroidal anti-inflammatory drugs and certain vitamins (Ibuprofen, Advil, Aleve, Excedrin, Meloxicam, Celebrex, fish/krill oil, etc.) for 7 days prior to surgery as instructed by your surgeon and/or your prescribing doctor. Tylenol IS ALLOWED. If you are on Ticlid, Xarelto, Eliquis, Pradaxa, Plavix or Coumadin, please check with your prescribing doctor for instructions for when to stop them. 7. If you use an inhaler, continue to use it routinely. 8. Nothing to eat or drink (not even water, gum, mints, or hard candy!) AFTER midnight prior to your surgery. 9. Take only medications that you are instructed to on the morning of surgery with a TINY SIP OF WATER. 10. Choose a responsible adult that will be able to drive you home when you are discharged from your hospital stay for your surgery and can stay with you in your home for 24 hours after your procedure. You must NOT drive any vehicle or operate any machinery for 24 hours after surgery. 11. When you dress for your appointment, please wear loose fitting clothing that is appropriate to accommodate your surgical area procedure. BRING WITH YOU ANY DEVICES YOU MAY NEED: MAGDALENO hose, ice machine, sling/swath, brace or special shoe, oversized zip-up or button up shirt, CPAP machine if staying overnight. 12. Do NOT wear jewelry, watches, or any piercings or metal for surgery- leave these valuables and money at home. 13. Do NOT wear contact lenses for surgery- glasses are okay if needed. 14. The anesthesiologist will talk with you the day of surgery and will ask you to sign a Consent Form. 15. Refrain from smoking or any type of tobacco use for at least 8 hours and marijuana for 24 hours prior to arrival for your surgery. 16. If a GREEN BLOOD band is given to you, please bring it with you for the day of surgery. 17. Notify your surgeon if you develop any illness before your surgery. 18. If you are staying overnight, please DO NOT BRING your home medications with you. 19. If you have any questions prior to surgery, please call the Preadmission Testing office at [phone], Mon.-Fri. 7 a.m.-3 p.m. Leave a voicemail if needed. Pre-Surgery Instructions: Medication Instructions dexAMETHasone (DECADRON) 4 mg tablet Stop taking 0 days prior to procedure glyBURIDE micronized (GLYNASE) 6 mg tablet Stop taking 0 days prior to procedure JARDIANCE 10 mg tablet tablet Stop taking 3 days prior to procedure lenalidomide (REVLIMID) 5 mg chemo capsule Stop taking 0 days prior to procedure liothyronine (CYTOMEL) 5 MCG tablet Take morning of procedure metFORMIN (GLUCOPHAGE) 500 mg tablet Stop taking 0 days prior to procedure moxifloxacin HCl (MOXIFLOXACIN 0.5%-PREDNISOLONE 1%-BROMFENAC 0.09% DROPS - BUDERER ) Check with prescribing doctor for instructions oxyCODONE (ROXICODONE) 10 MG tablet immediate release tablet Stop taking 0 days prior to procedure pantoprazole (PROTONIX) 40 mg EC tablet Take morning of procedure pioglitazone (ACTOS) 15 mg tablet Stop taking 0 days prior to procedure [email or web address] Telephone encounter Note Zach called requesting a refill on his revlimid. He is on his off week starting 10/11/24 and would like the script shipped to his house. Thank you- Dustin Reinoso PharmD, BCOP [facility] Work Phone: 10-10-2024 Miscellaneous Notes Zach called requesting a refill on his revlimid. He is on his off week starting 10/11/24 and would like the script shipped to his house. Thank you- Dustin Reinoso PharmD, BCOP documented in this encounter [facility] 10-09-2024 Instructions Nilam Ortiz RN - 10/09/2024 9:45 AM EST Preoperative Education Checklist- General Surgery date: 10/30/24 Surgery time: 945a Arrival time: 745a 1. Bring a photo ID and your insurance card with you the day of surgery. You will check in at the main lobby of the [facility]- registration desk is straight ahead as soon as you walk in. Tell them you are here for surgery. 2. If you have a Living Will/Durable Power of Chief Jailer for Health Care that is not on file here, please bring a copy the day of surgery. 3. Please shower/bathe the night before surgery with the provided soap or wipes. Do not shower the morning of surgery- you will do use wipes when you arrive here at the hospital before getting into your surgical gown. Do not shave the area of your procedure for 2 days prior to your surgery. 4. NO powder, lotion, perfume/cologne, aftershave, make-up, deodorant, or hair products after you have bathed. 5. NO nail nepalese/acrylic on at least one finger. If you are having a hand, wrist or foot surgery then all nail nepalese and artificial/acrylic nails must be removed from that hand or foot. 6. Avoid ALL Aspirin and non-steroidal anti-inflammatory drugs and certain vitamins (Ibuprofen, Advil, Aleve, Excedrin, Meloxicam, Celebrex, fish/krill oil, etc.) for 7 days prior to surgery as instructed by your surgeon and/or your prescribing doctor. Tylenol IS ALLOWED. If you are on Ticlid, Xarelto, Eliquis, Pradaxa, Plavix or Coumadin, please check with your prescribing doctor for instructions for when to stop them. 7. If you use an inhaler, continue to use it routinely. 8. Nothing to eat or drink (not even water, gum, mints, or hard candy!) AFTER midnight prior to your surgery. 9. Take only medications that you are instructed to on the morning of surgery with a TINY SIP OF WATER. 10. Choose a responsible adult that will be able to drive you home when you are discharged from your hospital stay for your surgery and can stay with you in your home for 24 hours after your procedure. You must NOT drive any vehicle or operate any machinery for 24 hours after surgery. 11. When you dress for your appointment, please wear loose fitting clothing that is appropriate to accommodate your surgical area procedure. BRING WITH YOU ANY DEVICES YOU MAY NEED: MAGDALENO hose, ice machine, sling/swath, brace or special shoe, oversized zip-up or button up shirt, CPAP machine if staying overnight. 12. Do NOT wear jewelry, watches, or any piercings or metal for surgery- leave these valuables and money at home. 13. Do NOT wear contact lenses for surgery- glasses are okay if needed. 14. The anesthesiologist will talk with you the day of surgery and will ask you to sign a Consent Form. 15. Refrain from smoking or any type of tobacco use for at least 8 hours and marijuana for 24 hours prior to arrival for your surgery. 16. If a GREEN BLOOD band is given to you, please bring it with you for the day of surgery. 17. Notify your surgeon if you develop any illness before your surgery. 18. If you are staying overnight, please DO NOT BRING your home medications with you. 19. If you have any questions prior to surgery, please call the Preadmission Testing office at [phone], Mon.-Fri. 7 a.m.-3 p.m. Leave a voicemail if needed. Pre-Surgery Instructions: Medication Instructions dexAMETHasone (DECADRON) 4 mg tablet Stop taking 0 days prior to procedure JARDIANCE 10 mg tablet tablet Stop taking 3 days prior to procedure lenalidomide (REVLIMID) 5 mg chemo capsule Stop taking 0 days prior to procedure liothyronine (CYTOMEL) 5 MCG tablet Take morning of procedure oxyCODONE (ROXICODONE) 10 MG tablet immediate release tablet Stop taking 0 days prior to procedure glyBURIDE micronized (GLYNASE) 6 mg tablet Stop taking 0 days prior to procedure metFORMIN (GLUCOPHAGE) 500 mg tablet Stop taking 0 days prior to procedure pantoprazole (PROTONIX) 40 mg EC tablet Take morning of procedure pioglitazone (ACTOS) 15 mg tablet Stop taking 0 days prior to procedure documented in this encounter [facility] 05-29-2024 Telephone encounter Note Pt and spouse notified and verbalizes understanding. Juan Ferguson RN [facility] Work Phone: 05-29-2024 Miscellaneous Notes Pt and spouse notified and verbalizes understanding. Juan Ferguson RN ----- Message from Latrice Hilario PA-C sent at 05/29/2024 11:58 AM EDT ----- Please call with stable myeloma labs documented in this encounter [facility] 05-29-2024 Telephone encounter Note ----- Message from Latrice Hilario PA-C sent at 05/29/2024 11:58 AM EDT ----- Please call with stable myeloma labs [facility] 05-27-2024 Telephone encounter Note Pt's spouse notified and verbalizes understanding. Juan Ferguson RN [facility] Work Phone: 05-27-2024 Miscellaneous Notes Pt's spouse notified and verbalizes understanding. Juan Ferguson RN Please call with a stable kidney function. Latrice Hilario PA-C documented in this encounter [facility] 05-27-2024 Telephone encounter Note Please call with a stable kidney function. Latrice Hilario PA-C [facility] Work Phone: 05-27-2024 Note HNO ID: [id number] Author: LATRICE HILARIO PA-C Service: ? Author Type: Physician Vinyl Hanger Type: Progress Notes Filed: 05/27/2024 13:29 Note Text: PATIENT NAME: Zach Manuel DATE: [...] seen for scheduled follow-up. INTERIM HISTORY: Since his last visit, he has Revlimid 5 mg for 21 days with 7 days of and dex 8 mg weekly. He did bump his arm left arm on a tire and has a skin tear that is healing. No fevers, chills or hospitalization. No new pain. MEDICATIONS: lenalidomide (REVLIMID) 5 mg capsule Take 1 capsule by mouth daily for 21 days on and 7 days off. dexAMETHasone (DECADRON) 4 mg tablet TAKE 2 TABLETS BY MOUTH ONCE A WEEK glyBURIDE micronized (GLYNASE) 6 mg tablet JARDIANCE 10 mg tablet Take 10 mg by mouth once daily. liothyronine (CYTOMEL) [address] (PROTONIX) 40 mg tablet Take 40 mg by mouth once daily. BREO ELLIPTA 100-25 mcg/dose inhaler 1 Inhalation once daily. fenofibrate nanocrystallized (TRICOR) 145 mg tablet Take 145 mg by mouth once daily. oxyCODONE IR (ROXICODONE) 10 mg tab 10 mg as needed. MELOXICAM 15 mg tablet Take 15 mg by mouth as needed. GLUCOPHAGE 500 MG TAB Take 1,000 mg by mouth daily with breakfast. ALLERGIES: Azithromycin, Erthromycin [Erythromycin], Sulfa (Sulfonamide Antibiotics), and Tobramycin PAST MEDICAL HISTORY: PAST MEDICAL HISTORY No date: Diabetes mellitus (HCC) No date: Hyperlipidemia 11/2002: Monoclonal gammopathy Comment: IgG [place] 2002: Multiple myeloma (HCC) No date: Ulcerative colitis (HCC) PAST SURGICAL HISTORY: PAST SURGICAL HISTORY 1993: CHOLECYSTECTOMY HX Comment: open surgery 2009: HERNIA REPAIR HX Comment: left inguinal hernia with mesh, excision of cord lipoma, excision of scrotal cyst 1990: PAST SURGICAL HISTORY OF Comment: Total Colectomy; IPAA; 2 stage 1974: PAST SURGICAL HISTORY OF Comment: removed disc/spinal fusions 2010: PAST SURGICAL HISTORY OF Comment: back surgery 01/26/2015: PAST SURGICAL HISTORY OF Comment: back surgery REVIEW OF SYSTEMS: General: No [...] seizures or tremors. PHYSICAL EXAM: Vitals: BP 117/65 Pulse 63 Temp 36.6 ?C (97.9 ?F) (Temporal) Resp 16 Ht 175.3 cm (5' 9.02 ) Wt 85.2 kg (187 lb 13.3 oz) SpO2 98% BMI 27.73 kg/m? ECOG 0 Exam limited to gross [...] for metastases. 08/18/2019 - Bone survey at [facility] Conclusion: Scattered lytic lesions, stable in number and size from prior exams. 05/06/2018 - Bon (more content not included)... [facility] 05-27-2024 History of Presen t illness Narrative PATIENT [...] seen for scheduled follow-up. INTERIM HISTORY: Since his last visit, he has Revlimid 5 mg for 21 days with 7 days of and dex 8 mg weekly. He did bump his arm left arm on a tire and has a skin tear that is healing. No fevers, chills or hospitalization. No new pain. MEDICATIONS: lenalidomide (REVLIMID) 5 mg capsule Take 1 capsule by mouth daily for 21 days on and 7 days off. dexAMETHasone (DECADRON) 4 mg tablet TAKE 2 TABLETS BY MOUTH ONCE A WEEK glyBURIDE micronized (GLYNASE) 6 mg tablet JARDIANCE 10 mg tablet Take 10 mg by mouth once daily. liothyronine (CYTOMEL) [address] (PROTONIX) 40 mg tablet Take 40 mg by mouth once daily. BREO ELLIPTA 100-25 mcg/dose inhaler 1 Inhalation once daily. fenofibrate nanocrystallized (TRICOR) 145 mg tablet Take 145 mg by mouth once daily. oxyCODONE IR (ROXICODONE) 10 mg tab 10 mg as needed. MELOXICAM 15 mg tablet Take 15 mg by mouth as needed. GLUCOPHAGE 500 MG TAB Take 1,000 mg by mouth daily with breakfast. ALLERGIES: Azithromycin, Erthromycin [Erythromycin], Sulfa (Sulfonamide Antibiotics), and Tobramycin PAST MEDICAL HISTORY: PAST MEDICAL HISTORY No date: Diabetes mellitus (HCC) No date: Hyperlipidemia 11/2002: Monoclonal gammopathy Comment: IgG [place] 2003: Multiple myeloma (HCC) No date: Ulcerative colitis (HCC) PAST SURGICAL HISTORY: PAST SURGICAL HISTORY 1993: CHOLECYSTECTOMY HX Comment: open surgery 2009: HERNIA REPAIR HX Comment: left inguinal hernia with mesh, excision of cord lipoma, excision of scrotal cyst 1990: PAST SURGICAL HISTORY OF Comment: Total Colectomy; IPAA; 2 stage 1974: PAST SURGICAL HISTORY OF Comment: removed disc/spinal fusions 2011: PAST SURGICAL HISTORY OF Comment: back surgery 01/26/2015: PAST SURGICAL HISTORY OF Comment: back surgery REVIEW OF SYSTEMS: General: No [...] seizures or tremors. PHYSICAL EXAM: Vitals: BP 117/65 Pulse 63 Temp 36.6 C (97.9 F) (Temporal) Resp 16 Ht 175.3 cm (5' 9.02 ) Wt 85.2 kg (187 lb 13.3 oz) SpO2 98% BMI 27.73 kg/m ECOG 0 Exam limited to gross [...] for metastases. 08/18/2019 - Bone survey at [facility] Conclusion: Scattered lytic lesions, stable in number and size from prior exams. 05/06/2018 - Bone Survey at [facility] Scattered lytic lesions, stable in both number and size from the prior exam. LABORATORY DATA: Hemoglobin (g/dL) Date Value 05/27/2024 13.3 09/27/2021 13.4 Hematocrit (%) Date Value 05/27/2024 37.7 09/27/2021 38.0 WBC (k/uL) Date Value 05/27/2024 6.80 09/27/2021 5.92 Platelet Count (k/uL) Date Value 05/27/2024 172 09/27/2021 189 PSA 12/10/2020 4.94 03/14/2022 5.40 03/06/2023 3.58 ASSESSMENT/PLAN: .00 Multiple myeloma (primary diagnosis) IgG [...] stable and his labs are slowly improving. Today we will continue his current treatment regimen. He will returnin 3 months for labs, follow-up and Aredia. If his paraprotein levels increase we will then discuss options for a more aggressive regimen. 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 Next infusion due August 2024. 3. 250.00 [...] will be considered if renal function worsens. Latrice Hilario PA-C I spent a total of 20 minutes on the date of the service which included preparing to see the patient, [id number] patient care, completing clinical documentation, performing a medically appropriate examination, counseling and educating the patient/family/caregiver, ordering medications, tests, or procedures, independently interpreting results (not separately reported), communicating results to the patient/family/caregiver, and care coordination (not separately reported). documented in this encounter [facility] 05-20-2024 Telephone encounter Note Patient has an appt on 05/27/24. Would you like labs, if so place orders. Irma Talavera MA [facility] 05-20-2024 Miscellaneous Notes Patient has an appt on 05/27/24. Would you like labs, if so place orders. Irma Talavera MA documented in this encounter [facility] 02-29-2024 Telephone encounter Note Pt notified and verbalizes understanding. Juan Ferguson RN [facility] Work Phone: 02-29-2024 Telephone encounter Note ----- Message from Latrice Hilario PA-C sent at 02/29/2024 8:10 AM EDT ----- Please let patient know his labs are stable and we will continue to monitor [facility] 02-29-2024 Miscellaneous Notes Pt notified and verbalizes understanding. Juan Ferguson RN ----- Message from Latrice Hilario PA-C sent at 02/29/2024 8:10 AM EDT ----- Please let patient know his labs are stable and we will continue to monitor documented in this encounter [facility] 02-25-2024 Note HNO ID: [id number] Author: URIEL GUNTER MD Service: ? Author [...] mellitus (HCC) Hyperlipidemia Monoclonal gammopathy 11/2002 IgG [place] Multiple myeloma (HCC) 2002 Ulcerative colitis (HCC) [...] osseous lesions s (more content not included)... [facility] 02-25-2024 History of Presen t illness [...] mellitus (HCC) Hyperlipidemia Monoclonal gammopathy 11/2002 IgG [place] Multiple myeloma (HCC) 2002 Ulcerative colitis (HCC) [...] for metastases. 08/18/2019 - Bone survey at [facility] Conclusion: Scattered lytic lesions, stable in number and size from prior exams. 05/06/2018 - Bone Survey at [facility] Scattered lytic lesions, stable in both number and size from the prior exam. LABORATORY DATA: Hemoglobin (g/dL) Date Value 02/26/2024 12.9 09/27/2021 13.4 Hematocrit (%) Date Value 02/26/2024 38.0 09/27/2021 38.0 WBC (k/uL) Date Value 02/26/2024 6.65 09/27/2021 5.92 Platelet Count (k/uL) Date Value 02/26/2024 203 09/27/2021 189 PSA 12/10/2020 4.94 03/14/2022 5.40 03/06/2023 3.58 ASSESSMENT/PLAN: 203.00 Multiple myeloma (primary diagnosis) IgG [...] Uriel Gunter MD documented in this encounter [facility] 11-27-2023 Note HNO ID: [id number] Author: CLAUDIA WILSON APRN.ELECTRONICS ENGINEERING MANAGER Service: ? Author Type: Nurse Practitioner Type: [...] DROPS INTO AFFECTED EYE 4 TIMES DAILY ucbmacpl-zpdymbgsg-rlrnkmfvixfto e (CORTISPORIN) otic solution INSTILL 3 4 [...] mellitus (HCC) Hyperlipidemia Monoclonal gammopathy 11/2002 IgG [place] Multiple myeloma (HCC) 2002 Ulcerative colitis (HCC) [...] mid, core biopsy (more content not included)... [facility] 11-27-2023 History of Presen t illness [...] DROPS INTO AFFECTED EYE 4 TIMES DAILY gsxknakz-rvljitjjv-tkgtdjdrmajkg e (CORTISPORIN) otic solution INSTILL 3 4 [...] mellitus (HCC) Hyperlipidemia Monoclonal gammopathy 11/2002 IgG [place] Multiple myeloma (HCC) 2002 Ulcerative colitis (HCC) [...] for metastases. 08/18/2019 - Bone survey at [facility] Conclusion: Scattered lytic lesions, stable in number and size from prior exams. 05/06/2018 - Bone Survey at [facility] Scattered lytic lesions, stable in both number [...] which included preparing to see the patient, bezx-zq-ngam patient care, completing clinical documentation, obtaining and/or reviewing separately obtained history, performing a medically appropriate examination, counseling and educating the patient/family/caregiver, ordering medications, tests, or procedures, independently interpreting results (not separately reported), and communicating results to the patient/family/caregiver. documented in this encounter [facility] 11-23-2023 Miscellaneous Notes Patient has an appt on 11/26. Would you like labs? documented in this encounter [facility] 08-28-2023 Note HNO ID: [id number] Author: Uriel Gunter MD Service: ? Author [...] DROPS INTO AFFECTED EYE 4 TIMES DAILY lajwueev-afslgpnyp-teesqhicervti e (CORTISPORIN) otic solution INSTILL 3 4 [...] mellitus (HCC) Hyperlipidemia Monoclonal gammopathy 11/2002 IgG [place] Multiple myeloma (HCC) 2002 Ulcerative colitis (HCC) [...] tissue 6. Prostate (more content not included)... [facility] 08-28-2023 History of Presen t illness [...] DROPS INTO AFFECTED EYE 4 TIMES DAILY btubujzj-trkdfjiic-lwtwakztwwhaw e (CORTISPORIN) otic solution INSTILL 3 4 [...] mellitus (HCC) Hyperlipidemia Monoclonal gammopathy 11/2002 IgG [place] Multiple myeloma (HCC) 2002 Ulcerative colitis (HCC) [...] for metastases. 08/18/2019 - Bone survey at [facility] Conclusion: Scattered lytic lesions, stable in number and size from prior exams. 05/06/2018 - Bone Survey at [facility] Scattered lytic lesions, stable in both number [...] Uriel Gunter MD documented in this encounter [facility] 05-31-2023 Miscellaneous Notes Pt informed of BRJessica message. He denies any questions or concerns at this time. Appt verifed Mary Kay Roland RN ----- Message from Uriel Gunter MD sent at 05/31/2023 12:08 PM EDT ----- Please inform the patient that his protein analysis is stable which is excellent news. We will continue as planned. documented in this encounter [facility] 05-29-2023 History of Presen t illness [...] DROPS INTO AFFECTED EYE 4 TIMES DAILY bacuuwja-usqqepyof-hcskflaifrakc e (CORTISPORIN) otic solution INSTILL 3 4 [...] mellitus (HCC) Hyperlipidemia Monoclonal gammopathy 11/2002 IgG [place] Multiple myeloma (HCC) 2002 Ulcerative colitis (HCC) [...] for metastases. 08/18/2019 - Bone survey at [facility] Conclusion: Scattered lytic lesions, stable in number and size from prior exams. 05/06/2018 - Bone Survey at [facility] Scattered lytic lesions, stable in both number [...] be considered if renal function worsens. Uriel uGnter MD documented in this encounter [facility] 02-27-2023 Miscellaneous Notes Patient has an [facility]TV appointment on 03/06. Please place lab orders. Monica Baptiste documented in this encounter [facility] 12-05-2022 History of Presen t illness Narrative [...] DROPS INTO AFFECTED EYE 4 TIMES DAILY fzwydofp-tipebunat-wloocdnpiwote e (CORTISPORIN) otic solution INSTILL 3 4 [...] mellitus (HCC) Hyperlipidemia Monoclonal gammopathy 11/2002 IgG [place] Multiple myeloma (HCC) 2002 Ulcerative colitis (HCC) [...] for metastases. 08/18/2019 - Bone survey at [facility] Conclusion: Scattered lytic lesions, stable in number and size from prior exams. 05/06/2018 - Bone Survey at [facility] Scattered lytic lesions, stable in both number and size from the prior exam. LABORATORY DATA: Hemoglobin (g/dL) Date Value 12/05/2022 14.3 09/27/2021 13.4 Hematocrit (%) Date Value 12/05/2022 42.2 09/27/2021 38.0 WBC (k/uL) Date Value 12/05/2022 5.99 09/27/2021 5.92 Platelet Count (k/uL) Date Value 12/05/2022 187 09/27/2021 189 PSA 12/10/2020 4.94 03/14/2022 5.40 ASSESSMENT/PLAN: .00 Multiple myeloma (primary diagnosis) IgG [...] Uriel Gunter MD documented in this encounter [facility] 11-27-2022 Miscellaneous Notes Addended by: URIEL GUNTER on: 11/27/2022 01:06 PM Modules accepted: Orders Patient coming in on Sunday12/05/22 for follow up treatment. Please add lab orders. Thanks, Selin Stapleton MA documented in this encounter [facility] 09-21-2022 Miscellaneous Notes Please sign in everyone's absence. Thank you Dustin Reinoso rPh documented in this encounter [facility] 09-12-2022 History of Presen t illness Narrative [...] DROPS INTO AFFECTED EYE 4 TIMES DAILY kijuqeqy-exgddhsoa-yipnemzsnpgad e (CORTISPORIN) otic solution INSTILL 3 4 [...] mellitus (HCC) Hyperlipidemia Monoclonal gammopathy 11/2002 IgG [place] Multiple myeloma (HCC) 2002 Ulcerative colitis (HCC) [...] for metastases. 08/18/2019 - Bone survey at [facility] Conclusion: Scattered lytic lesions, stable in number and size from prior exams. 05/06/2018 - Bone Survey at [facility] Scattered lytic lesions, stable in both number [...] Uriel Gunter MD documented in this encounter [facility] 06-20-2022 History of Presen t illness Narrative Recommendations per pharmacist Humaira Reinoso [facility] for patient to take calcium with Vit D 1 tab twice daily especially as his calcium levels normally run low. Patient education complete with printed material. Questions answered as appropriate. He was encouraged to call with questions or concerns. Ese Ferro RN documented in this encounter [facility] 06-20-2022 History of Presen t illness Narrative [...] DROPS INTO AFFECTED EYE 4 TIMES DAILY uesogmkz-izlexyitl-byhofangblken e (CORTISPORIN) otic solution INSTILL 3 4 [...] mellitus (HCC) Hyperlipidemia Monoclonal gammopathy 11/2002 IgG [place] Multiple myeloma (HCC) 2002 Ulcerative colitis (HCC) [...] for metastases. 08/18/2019 - Bone survey at [facility] Conclusion: Scattered lytic lesions, stable in number and size from prior exams. 05/06/2018 - Bone Survey at [facility] Scattered lytic lesions, stable in both number and size from the prior exam. LABORATORY DATA: Hemoglobin (g/dL) Date Value 06/20/2022 12.9 09/27/2021 13.4 Hematocrit (%) Date Value 06/20/2022 37.1 09/27/2021 38.0 WBC (k/uL) Date Value 06/20/2022 4.57 09/27/2021 5.92 Platelet Count (k/uL) Date Value 06/20/2022 234 09/27/2021 189 03/14/2022 PSA 5.4, 19.1% free 12/10/2020 PSA 4.94, 35% free ASSESSMENT/PLAN: 1 203.00 Multiple myeloma (primary diagnosis) IgG kappa [...] if the PSA worsen significantly. Claudia Wilson APRN.CNP documented in this encounter [facility] 06-20-2022 Miscellaneous Notes Pt due for Aredia today. Pharmacy suggests checking pt's Calcium level w/ today's labs. Order pended. Juan Ferguson RN documented in this encounter [facility] 06-16-2022 Miscellaneous Notes Please sign for Dr. Gunter since he is out of the office. Thanks, Claudia Wilson APRN.CNP documented in this encounter [facility] 06-15-2022 Miscellaneous Notes Patient has an appt on 06/20. Would you like labs? documented in this encounter [facility] 04-20-2022 Miscellaneous Notes Signed documented in this encounter [facility] 2022 Miscellaneous Notes New benjamin obtained through [facility] for $[id number] on ID# [id number] Enrollment 02/27/2022 through 02/26/2023 documented in this encounter [facility] 03-24-2022 Miscellaneous Notes Informed pt's of Dr Gunter's message. Janett verbalized understanding and denies further needs at this time. Funmilayo Arriola RN ----- Message from Uriel Gunter MD sent at 03/23/2022 4:50 PM EDT ----- Please inform the patient that his labs are stable, M spike down to 0.68. We will continue as planned. Bennie, TAYLOR documented in this encounter [facility] 03-21-2022 History of Presen t illness Narrative [...] DROPS INTO AFFECTED EYE 4 TIMES DAILY plhmyehi-fmeepwyxu-qdoyqielbgtrr e (CORTISPORIN) otic solution INSTILL 3 4 [...] mellitus (HCC) Hyperlipidemia Monoclonal gammopathy 11/2002 IgG [place] Multiple myeloma (HCC) 2002 Ulcerative colitis (HCC) [...] for metastases. 08/18/2019 - Bone survey at [facility] Conclusion: Scattered lytic lesions, stable in number and size from prior exams. 05/06/2018 - Bone Survey at [facility] Scattered lytic lesions, stable in both number [...] Uriel Gunter MD documented in this encounter [facility] 02-24-2022 Miscellaneous Notes Signed. documented in this encounter [facility] 01-24-2022 History of Presen t illness Narrative [...] DROPS INTO AFFECTED EYE 4 TIMES DAILY shzkpjpy-xxjyesitl-vfdgbxgxkmwjv e (CORTISPORIN) otic solution INSTILL 3 4 [...] mellitus (HCC) Hyperlipidemia Monoclonal gammopathy 11/2002 IgG [place] Multiple myeloma (HCC) 2002 Ulcerative colitis (HCC) [...] RADIOLOGY/OTHER STUDIES: 08/18/2019 - Bone survey at [facility] Conclusion: Scattered lytic lesions, stable in number and size from prior exams. 05/06/2018 - Bone Survey at [facility] Scattered lytic lesions, stable in both number and size from the prior exam. 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 Type 2 diabetes mellitus without complication, with long-term current use of insulin (HCC) H/O ulcerative colitis Personal history of other diseases of digestive system [facility] Multiple myeloma not having achieved [...] of bone tumor [facility] [...] kidney disease ([facility]) [facility] Multiple myeloma not having achieved remission (HCC)- Primary Multiple myeloma, without mention of having achieved remission 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 [facility] [...] myeloma, without mention of having achieved remission Type 2 diabetes mellitus without complication, with long-term current use of insulin (HCC) [facility] Preop examination- Primary Unspecified pre-operative examination Preop examination Unspecified pre-operative examination documented in this encounter [facility] SystemInstructionsNot on filedocumented in this encounter [facility] Summary Purpose Family History No Family History Records FoundNo Family History Records FoundNo Family History Records FoundNo Family History Records FoundNo Family History Records FoundNo Family History Records Found Advance Directives Documents on File Type Date Recorded Patient House Admin Expl anation Durable Power of Chief Jailer 11/11/2024 8:31 AM Hospital Course Note MR#: [id number] [facility] Pt. Name: Zach Manuel Admitted: [...] complication. The patient will be discharged to [facility] facility. CONSULTATION DURING ADMISSION: Orthopedics. PROCEDURE DURING [...] Referral Specialty Diagnoses / Procedures Referred By Richy t Referred To Contact Aiden Hatfield MD [address] [place] [address] Referral ID Status Reason Start Date Expiration Date V isits Requested Visits Authorized [id number] Authorized 06/24/2022 09/23/2023 1 1 Additional Source Comments (unrecognized sect ion and content) No Status Records FoundNo Status Records FoundNo Status Records FoundNo Status Records FoundNo Status Records FoundNo Status Records Found INFORMATION SOURCE (unrecogn ized section and content) DATE CREATED AUTHOR 06/06/2019 [facility] DATE CREATED AUTHOR AUTHOR'S ORGANIZ ATION 11/17/2021 [facility] DATE CREATED AUTHOR AUTHOR'S ORGANIZ ATION 12/27/2021 [facility] DATE CREATED AUTHOR AUTHOR'S ORGANIZ ATION 09/02/2022 [facility] DATE CREATED AUTHOR AUTHOR'S ORGANIZ ATION 05/30/2024 [facility] DATE CREATED AUTHOR AUTHOR'S ORGANIZ ATION 11/21/2024 [facility] Source Comments (unrecognize d section and content) In the event this informatio n is protected by the Federal Confidentiality of Alcohol and Drug Abuse Patient Records regulations: The Federal rules restrict any use of the information to criminally investigate or prosecute any alcohol or drug abuse patient.[facility] the event this information is protected by the Federal Confidentiality of Alcohol and Drug Abuse Patient Records regulations: The Federal rules restrict any use of the information to criminally investigate or prosecute any alcohol or drug abuse patient.[facility] HospitalIn the event this information is protected by the Federal Confidentiality of Alcohol and Drug Abuse Patient Records regulations: The Federal rules restrict any use of the information to criminally investigate or prosecute any alcohol or drug abuse patient.[facility] HospitalIn the event this information is protected by the Federal Confidentiality of Alcohol and Drug Abuse Patient Records regulations: The Federal rules restrict any use of the information to criminally investigate or prosecute any alcohol or drug abuse patient.[facility] HospitalIn the event this information is protected by the Federal Confidentiality of Alcohol and Drug Abuse Patient Records regulations: The Federal rules restrict any use of the information to criminally investigate or prosecute any alcohol or drug abuse patient.[facility] HospitalIn the event this information is protected by the Federal Confidentiality of Alcohol and Drug Abuse Patient Records regulations: The Federal rules restrict any use of the information to criminally investigate or prosecute any alcohol or drug abuse patient.[facility] HospitalIn the event this information is protected by the Federal Confidentiality of Alcohol and Drug Abuse Patient Records regulations: The Federal rules restrict any use of the information to criminally investigate or prosecute any alcohol or drug abuse patient.[facility] HospitalIn the event this information is protected by the Federal Confidentiality of Alcohol and Drug Abuse Patient Records regulations: The Federal rules restrict any use of the information to criminally investigate or prosecute any alcohol or drug abuse patient.[facility] HospitalIn the event this information is protected by the Federal Confidentiality of Alcohol and Drug Abuse Patient Records regulations: The Federal rules restrict any use of the information to criminally investigate or prosecute any alcohol or drug abuse patient.[facility] HospitalIn the event this information is protected by the Federal Confidentiality of Alcohol and Drug Abuse Patient Records regulations: The Federal rules restrict any use of the information to criminally investigate or prosecute any alcohol or drug abuse patient.[facility] HospitalIn the event this information is protected by the Federal Confidentiality of Alcohol and Drug Abuse Patient Records regulations: The Federal rules restrict any use of the information to criminally investigate or prosecute any alcohol or drug abuse patient.[facility] HospitalIn the event this information is protected by the Federal Confidentiality of Alcohol and Drug Abuse Patient Records regulations: The Federal rules restrict any use of the information to criminally investigate or prosecute any alcohol or drug abuse patient.[facility] HospitalIn the event this information is protected by the Federal Confidentiality of Alcohol and Drug Abuse Patient Records regulations: The Federal rules restrict any use of the information to criminally investigate or prosecute any alcohol or drug abuse patient.[facility] HospitalIn the event this information is protected by the Federal Confidentiality of Alcohol and Drug Abuse Patient Records regulations: The Federal rules restrict any use of the information to criminally investigate or prosecute any alcohol or drug abuse patient.[facility] HospitalIn the event this information is protected by the Federal Confidentiality of Alcohol and Drug Abuse Patient Records regulations: The Federal rules restrict any use of the information to criminally investigate or prosecute any alcohol or drug abuse patient.[facility] HospitalIn the event this information is protected by the Federal Confidentiality of Alcohol and Drug Abuse Patient Records regulations: The Federal rules restrict any use of the information to criminally investigate or prosecute any alcohol or drug abuse patient.[facility] HospitalIn the event this information is protected by the Federal Confidentiality of Alcohol and Drug Abuse Patient Records regulations: The Federal rules restrict any use of the information to criminally investigate or prosecute any alcohol or drug abuse patient.[facility] HospitalIn the event this information is protected by the Federal Confidentiality of Alcohol and Drug Abuse Patient Records regulations: The Federal rules restrict any use of the information to criminally investigate or prosecute any alcohol or drug abuse patient.[facility] HospitalIn the event this information is protected by the Federal Confidentiality of Alcohol and Drug Abuse Patient Records regulations: The Federal rules restrict any use of the information to criminally investigate or prosecute any alcohol or drug abuse patient.[facility] HospitalIn the event this information is protected by the Federal Confidentiality of Alcohol and Drug Abuse Patient Records regulations: The Federal rules restrict any use of the information to criminally investigate or prosecute any alcohol or drug abuse patient.[facility] HospitalIn the event this information is protected by the Federal Confidentiality of Alcohol and Drug Abuse Patient Records regulations: The Federal rules restrict any use of the information to criminally investigate or prosecute any alcohol or drug abuse patient.[facility] HospitalIn the event this information is protected by the Federal Confidentiality of Alcohol and Drug Abuse Patient Records regulations: The Federal rules restrict any use of the information to criminally investigate or prosecute any alcohol or drug abuse patient.[facility] HospitalIn the event this information is protected by the Federal Confidentiality of Alcohol and Drug Abuse Patient Records regulations: The Federal rules restrict any use of the information to criminally investigate or prosecute any alcohol or drug abuse patient.[facility] HospitalIn the event this information is protected by the Federal Confidentiality of Alcohol and Drug Abuse Patient Records regulations: The Federal rules restrict any use of the information to criminally investigate or prosecute any alcohol or drug abuse patient.[facility] HospitalIn the event this information is protected by the Federal Confidentiality of Alcohol and Drug Abuse Patient Records regulations: The Federal rules restrict any use of the information to criminally investigate or prosecute any alcohol or drug abuse patient.[facility] HospitalIn the event this information is protected by the Federal Confidentiality of Alcohol and Drug Abuse Patient Records regulations: The Federal rules restrict any use of the information to criminally investigate or prosecute any alcohol or drug abuse patient.[facility] HospitalIn the event this information is protected by the Federal Confidentiality of Alcohol and Drug Abuse Patient Records regulations: The Federal rules restrict any use of the information to criminally investigate or prosecute any alcohol or drug abuse patient.[facility] HospitalIn the event this information is protected by the Federal Confidentiality of Alcohol and Drug Abuse Patient Records regulations: The Federal rules restrict any use of the information to criminally investigate or prosecute any alcohol or drug abuse patient.[facility] HospitalIn the event this information is protected by the Federal Confidentiality of Alcohol and Drug Abuse Patient Records regulations: The Federal rules restrict any use of the information to criminally investigate or prosecute any alcohol or drug abuse patient.[facility] HospitalIn the event this information is protected by the Federal Confidentiality of Alcohol and Drug Abuse Patient Records regulations: The Federal rules restrict any use of the information to criminally investigate or prosecute any alcohol or drug abuse patient.[facility] HospitalIn the event this information is protected by the Federal Confidentiality of Alcohol and Drug Abuse Patient Records regulations: The Federal rules restrict any use of the information to criminally investigate or prosecute any alcohol or drug abuse patient.[facility] HospitalIn the event this information is protected by the Federal Confidentiality of Alcohol and Drug Abuse Patient Records regulations: The Federal rules restrict any use of the information to criminally investigate or prosecute any alcohol or drug abuse patient.[facility] HospitalIn the event this information is protected by the Federal Confidentiality of Alcohol and Drug Abuse Patient Records regulations: The Federal rules restrict any use of the information to criminally investigate or prosecute any alcohol or drug abuse patient.[facility] HospitalIn the event this information is protected by the Federal Confidentiality of Alcohol and Drug Abuse Patient Records regulations: The Federal rules restrict any use of the information to criminally investigate or prosecute any alcohol or drug abuse patient.[facility] HospitalIn the event this information is protected by the Federal Confidentiality of Alcohol and Drug Abuse Patient Records regulations: The Federal rules restrict any use of the information to criminally investigate or prosecute any alcohol or drug abuse patient.[facility] HospitalIn the event this information is protected by the Federal Confidentiality of Alcohol and Drug Abuse Patient Records regulations: The Federal rules restrict any use of the information to criminally investigate or prosecute any alcohol or drug abuse patient.[facility] HospitalIn the event this information is protected by the Federal Confidentiality of Alcohol and Drug Abuse Patient Records regulations: The Federal rules restrict any use of the information to criminally investigate or prosecute any alcohol or drug abuse patient.[facility] HospitalIn the event this information is protected by the Federal Confidentiality of Alcohol and Drug Abuse Patient Records regulations: The Federal rules restrict any use of the information to criminally investigate or prosecute any alcohol or drug abuse patient.[facility] HospitalIn the event this information is protected by the Federal Confidentiality of Alcohol and Drug Abuse Patient Records regulations: The Federal rules restrict any use of the information to criminally investigate or prosecute any alcohol or drug abuse patient.[facility] HospitalIn the event this information is protected by the Federal Confidentiality of Alcohol and Drug Abuse Patient Records regulations: The Federal rules restrict any use of the information to criminally investigate or prosecute any alcohol or drug abuse patient.[facility] HospitalIn the event this information is protected by the Federal Confidentiality of Alcohol and Drug Abuse Patient Records regulations: The Federal rules restrict any use of the information to criminally investigate or prosecute any alcohol or drug abuse patient.[facility] HospitalIn the event this information is protected by the Federal Confidentiality of Alcohol and Drug Abuse Patient Records regulations: The Federal rules restrict any use of the information to criminally investigate or prosecute any alcohol or drug abuse patient.[facility] HospitalIn the event this information is protected by the Federal Confidentiality of Alcohol and Drug Abuse Patient Records regulations: The Federal rules restrict any use of the information to criminally investigate or prosecute any alcohol or drug abuse patient.[facility] HospitalIn the event this information is protected by the Federal Confidentiality of Alcohol and Drug Abuse Patient Records regulations: The Federal rules restrict any use of the information to criminally investigate or prosecute any alcohol or drug abuse patient.[facility] HospitalIn the event this information is protected by the Federal Confidentiality of Alcohol and Drug Abuse Patient Records regulations: The Federal rules restrict any use of the information to criminally investigate or prosecute any alcohol or drug abuse patient.[facility] HospitalIn the event this information is protected by the Federal Confidentiality of Alcohol and Drug Abuse Patient Records regulations: The Federal rules restrict any use of the information to criminally investigate or prosecute any alcohol or drug abuse patient.[facility] HospitalIn the event this information is protected by the Federal Confidentiality of Alcohol and Drug Abuse Patient Records regulations: The Federal rules restrict any use of the information to criminally investigate or prosecute any alcohol or drug abuse patient.[facility] HospitalIn the event this information is protected by the Federal Confidentiality of Alcohol and Drug Abuse Patient Records regulations: The Federal rules restrict any use of the information to criminally investigate or prosecute any alcohol or drug abuse patient.[facility] HospitalIn the event this information is protected by the Federal Confidentiality of Alcohol and Drug Abuse Patient Records regulations: The Federal rules restrict any use of the information to criminally investigate or prosecute any alcohol or drug abuse patient.[facility] HospitalIn the event this information is protected by the Federal Confidentiality of Alcohol and Drug Abuse Patient Records regulations: The Federal rules restrict any use of the information to criminally investigate or prosecute any alcohol or drug abuse patient.[facility] HospitalIn the event this information is protected by the Federal Confidentiality of Alcohol and Drug Abuse Patient Records regulations: The Federal rules restrict any use of the information to criminally investigate or prosecute any alcohol or drug abuse patient.[facility] HospitalIn the event this information is protected by the Federal Confidentiality of Alcohol and Drug Abuse Patient Records regulations: The Federal rules restrict any use of the information to criminally investigate or prosecute any alcohol or drug abuse patient.[facility] HospitalIn the event this information is protected by the Federal Confidentiality of Alcohol and Drug Abuse Patient Records regulations: The Federal rules restrict any use of the information to criminally investigate or prosecute any alcohol or drug abuse patient.[facility] HospitalIn the event this information is protected by the Federal Confidentiality of Alcohol and Drug Abuse Patient Records regulations: The Federal rules restrict any use of the information to criminally investigate or prosecute any alcohol or drug abuse patient.[facility] HospitalIn the event this information is protected by the Federal Confidentiality of Alcohol and Drug Abuse Patient Records regulations: The Federal rules restrict any use of the information to criminally investigate or prosecute any alcohol or drug abuse patient.[facility] HospitalIn the event this information is protected by the Federal Confidentiality of Alcohol and Drug Abuse Patient Records regulations: The Federal rules restrict any use of the information to criminally investigate or prosecute any alcohol or drug abuse patient.[facility] HospitalIn the event this information is protected by the Federal Confidentiality of Alcohol and Drug Abuse Patient Records regulations: The Federal rules restrict any use of the information to criminally investigate or prosecute any alcohol or drug abuse patient.[facility] HospitalIn the event this information is protected by the Federal Confidentiality of Alcohol and Drug Abuse Patient Records regulations: The Federal rules restrict any use of the information to criminally investigate or prosecute any alcohol or drug abuse patient.[facility] HospitalIn the event this information is protected by the Federal Confidentiality of Alcohol and Drug Abuse Patient Records regulations: The Federal rules restrict any use of the information to criminally investigate or prosecute any alcohol or drug abuse patient.[facility] Reason for Visit (unrecogniz ed section and content) Reason Onset Date Comments Refill Request 01/02/2022 Reason Comments Multiple Myeloma Reason Onset Date Comments Refill Request 01/30/2022 Reason Onset Date Comments Refill Request 02/24/2022 Reason Comments Multiple Myeloma follow up Reason Comments Results Reason Onset Date Comments Refill Request 2022 lenalidomide Reason Comments 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 - Other [facility] gran t obtained Reason Onset Date Comments Refill Request 04/20/2022 Reason Onset Date Comments Refill Request 05/19/2022 Reason Comments Lab Orders Reason Onset Date Comments Refill Request 06/16/2022 Specialty Diagnoses / Procedures Referred By Richy berger Referred To Contact Diagnoses Multiple myeloma, remission status unspecified (HCC) Uriel Gunter MD [address] [place] [address] [place] [address] [facility] [address] [place] [address] Referral ID Status Reason Start Date Expiration Date V isits Requested Visits Authorized [id number] Authorized 12/10/2020 03/10/2021 99 99 Reason Comments [...] Paget disease of bone Uriel Gunter MD [address] [place] [address] [facility] [address] [place] [address] Referral ID Status Reason Start Date Expiration Date V isits Requested Visits Authorized [id number] Authorized 02/26/2024 05/26/2024 99 99 Reason Comments Care Coordination Labs Reason Onset Date Comments Refill Request 03/06/2024 Reason Onset Date Comments Refill Request 04/08/2024 Reason Onset Date Comments Refill Request 05/09/2024 Reason Comments Care Coordination Lab Results Reason Onset Date Comments Refill Request 06/04/2024 Reason Onset Date Comments Refill Request 06/30/2024 Reason Onset Date Comments Refill Request 08/11/2024 Reason Onset Date Comments Refill Request 09/11/2024 Reason Onset Date Comments Refill Request 10/10/2024 Reason Onset Date Comments Refill Request 11/17/2024 Reason Onset Date Comments Refill Request 12/11/2024 Care Teams (unrecognized sec tion and content) Draw Off Worker Relationship Specialty Start Date End Date Hanna Mathias MD [address] [place] [address] PCP - General 01/27/03 Draw Off Worker Relationship Specialty Start Date End Date Hanna Mathias MD [address] [facility] [place] [address] PCP - General 01/27/03 Draw Off Worker Relationship Specialty Start Date End Date Hanna Mathias MD [address] [facility] [place] [address] PCP - General 01/27/03 Draw Off Worker Relationship Specialty Start Date End Date Hanna Mathias MD [address] [facility] [place] [address] PCP - General 01/27/03 Draw Off Worker Relationship Specialty Start Date End Date Hanna Mathias MD [address] [facility] [place] [address] PCP - General 01/27/03 Draw Off Worker Relationship Specialty Start Date End Date Hanna Mathias MD [address] [facility] [place] [address] PCP - General 01/27/03 Draw Off Worker Relationship Specialty Start Date End Date Hanna Mathias MD [address] [facility] [place] [address] PCP - General 01/27/03 Draw Off Worker Relationship Specialty Start Date End Date Hanna Mathias MD [address] [facility] [place] [address] PCP - General 01/27/03 Draw Off Worker Relationship Specialty Start Date End Date Hanna Mathias MD [address] [facility] [place] [address] PCP - General 01/27/03 Draw Off Worker Relationship Specialty Start Date End Date Hanna Mathias MD [address] [facility] [place] [address] PCP - General 01/27/03 Draw Off Worker Relationship Specialty Start Date End Date Hanna Mathias MD [address] [facility] [place] [address] PCP - General 01/27/03 Draw Off Worker Relationship Specialty Start Date End Date Hanna Mathias MD [address] [place] [facility] [place] [address] PCP - General 01/27/03 Draw Off Worker Relationship Specialty Start Date End Date Hanna Mathias MD [address] [place] [facility] [place] [address] PCP - General 01/27/03 Draw Off Worker Relationship Specialty Start Date End Date Hanna Mathias MD [address] [facility] [place] [address] PCP - General 01/27/03 Draw Off Worker Relationship Specialty Start Date End Date Hanna Mathias MD [address] [facility] [place] [address] PCP - General 01/27/03 Draw Off Worker Relationship Specialty Start Date End Date Hanna Mathias MD [address] [facility] [place] [address] PCP - General 01/27/03 Draw Off Worker Relationship Specialty Start Date End Date Hanna Mathias MD [address] [facility] [place] [address] PCP - General 01/27/03 Draw Off Worker Relationship Specialty Start Date End Date Hanna Mathias MD [address] [facility] [place] [address] PCP - General 01/27/03 Draw Off Worker Relationship Specialty Start Date End Date Hanna Mathias MD [address] [facility] [place] [address] PCP - General 01/27/03 Draw Off Worker Relationship Specialty Start Date End Date Hanna Mathias MD [address] [place] [phone] PCP - General 01/27/03 Draw Off Worker Relationship Specialty Start Date End Date Hanna Mathias MD [address] [place] [phone] PCP - General 01/27/03 Draw Off Worker Relationship Specialty Start Date End Date Hanna Mathias MD [address] [place] [address] PCP - General 01/27/03 Draw Off Worker Relationship Specialty Start Date End Date Hanna Mathias MD [address] [place] [id number] PCP - General 01/27/03 Draw Off Worker Relationship Specialty [place] [address] [place], [place] [id number] PCP - General 01/27/03 Draw Off Worker Relationship Specialty Start Date End Date Hanna Mathias MD [address] [place] [id number] PCP - General 01/27/03 Draw Off Worker Relationship Specialty Start Date End Date Hanna Mathias MD [address] [place] [id number] PCP - General 01/27/03 Draw Off Worker Relationship Specialty Start Date End Date Hanna Mathias MD [address] [place] [address] PCP - General 01/27/03 Draw Off Worker Relationship Specialty Start Date End Date Hanna Mathias MD [address] [place] [address] PCP - General 01/27/03 Draw Off Worker Relationship Specialty Start Date End Date Hanna Mathias MD [address] [place] [id number] PCP - General 01/27/03 Draw Off Worker Relationship Specialty Start Date End Date Hanna Mathias MD [address] [place], [place] [phone] PCP - General 01/27/03 Draw Off Worker Relationship Specialty Start Date End Date Hanna Mathias MD [address] [place], [place] [phone] PCP - General 01/27/03 Draw Off Worker Relationship Specialty Start Date End Date Hanna Mathias MD [address] [place], [place] [phone] PCP - General 01/27/03 Draw Off Worker Relationship Specialty Start Date End Date Hanna Mathias MD [address] [place] [id number] PCP - General 01/27/03 Draw Off Worker Relationship Specialty Start Date End Date Hanna Mathias MD [address] [place] [address] PCP - General 01/27/03 Draw Off Worker Relationship Specialty Start Date End Date Hanna Mathias MD [address] [place] [address] PCP - General Family Medicine 10/30/24 FOR RECORDS PERTAINING TO PATIENTS WHO ARE [...] BE BASED ON THE PRIMARY CLINICAL RECORDS. [employer] [facility]. provides no warranty or guarantee of the accuracy or completeness of information in this document.
[2025-01-31 16:05] VITALS: BP 136/81; PULSE 67; TEMP 36.7; O2SAT 97; BMI 26.6
--- NOTE | 2025-01-31 17:40 | ED.GENADUL1 ---
HPI HPI - General Adult General Chief complaint: Eye Problems Stated complaint: VISION ISSUES Time Seen by Provider: 01/31/25 16:26 Mode of arrival: walk-in Limitations: no limitations History of Present Illness HPI narrative: 79-year-old male presents here with a chief complaint of vision changes. He states he got up off of his tailgate and noticed a red color in his vision. He states it lasted for several seconds. He walked into his home explained to his and then his vision returned to normal. He denies any blurry vision or double vision. Denies any headache. He is alert and oriented no acute distress. He states this is not happened in the past. He said he did not feel lightheaded at any time. He does not have a history of hypertension. He is a type II diabetic. Patient is otherwise healthy no acute distress. He states he has no symptoms at this time his made him come in to get evaluated. Related Data Home Medications ?Medication ?Instructions ?Recorded ?Confirmed empagliflozin 10 mg tablet 10 mg PO Q24H 09/25/23 01/31/25 (Jardiance) glyburide micronized 6 mg tablet 6 mg PO Q12H 09/25/23 01/31/25 metformin 500 mg tablet 500 mg PO Q8H 09/25/23 01/31/25 oxycodone 10 mg tablet 10 mg PO PRN 09/25/23 01/31/25 pioglitazone 30 mg tablet 30 mg PO Q24H 09/25/23 01/31/25 liothyronine 5 mcg tablet 10 mcg PO QDAY 01/31/25 01/31/25 pantoprazole 40 mg tablet,delayed 40 mg PO QDAY 01/31/25 01/31/25 release Previous Rx's ?Medication ?Instructions ?Recorded ondansetron HCl 4 mg/5 mL oral 1.6 mg (2 mL) PO DAILY PRN nausea 09/25/23 solution and vomiting #10 mL Allergies Allergy/AdvReac Type Severity Reaction Status Date / Time metoclopramide AdvReac Intermediate suicidal Verified 01/31/25 16:05 erythromycin base AdvReac Swelling Verified 01/31/25 16:05 of the Eye Review of Systems ROS Status of ROS 10 or more systems reviewed and unremarkable except as noted in history and below PFSH PFSH Social History Smoking status: Never smoker Little interest or pleasure in doing things: not at all Feeling down, depressed, or hopeless: not at all Exam Narrative Exam Narrative: All Systems are negative except as noted/marked.All systems reviewed and otherwise negative Nurses note and vital signs reviewed and patient is not hypoxic. General: The patient appears well and in no apparent distress. Patient is resting comfortably on cart. Skin: Warm, dry, no pallor noted. There is no rash noted. Head: Normocephalic, atraumatic Eye: Normal conjunctiva, no drainage, EOMI. PERRL Ears, Nose, Mouth, and Throat: oral mucosa is moist. Nares patent. Mouth without vesicles. Ear canals patent. Tm's without Erythema Cardiovascular: Regular Rate and Rhythm Respiratory: Patient is in no distress, no accessory muscle use, lungs are clear to auscultation, no wheezing, rales or rhonchi Back: non-tender, no CVA tenderness bilaterally to percussion. GI: Normal bowel sounds, no tenderness to palpation, no masses appreciated. No rebound, guarding, or rigidity noted. Musculoskeletal: The patient has no evidence of calf tenderness, no pitting edema, symmetrical pulses noted bilaterally Neurological: A&O x4, normal speech Psychiatric: Cooperative Constitutional Vital Signs, click to edit/add: Last Vital Signs Temp 98.1 F 01/31/25 16:05 Pulse 67 01/31/25 16:05 Resp 14 01/31/25 16:05 BP 136/81 01/31/25 16:05 Pulse Ox 97 01/31/25 16:05 O2 Del Method Room Air 01/31/25 16:05 Course Vital Signs Vital signs: Vital Signs Temperature 98.1 F 01/31/25 16:05 Pulse Rate 67 01/31/25 16:05 Respiratory Rate 14 01/31/25 16:05 Blood Pressure 136/81 01/31/25 16:05 Pulse Oximetry 97 01/31/25 16:05 Oxygen Delivery Method Room Air 01/31/25 16:05 Temperature 98.1 F 01/31/25 16:05 Pulse Rate 67 01/31/25 16:05 Respiratory Rate 14 01/31/25 16:05 Blood Pressure 136/81 01/31/25 16:05 Pulse Oximetry 97 01/31/25 16:05 Oxygen Delivery Method Room Air 01/31/25 16:05 Medical Decision Making MDM Narrative Medical decision making narrative: 79-year-old male presents here with a chief complaint of vision changes. He states he got up off of his tailgate and noticed a red color in his vision. He states it lasted for several seconds. He walked into his home explained to his and then his vision returned to normal. He denies any blurry vision or double vision. Denies any headache. He is alert and oriented no acute distress. He states this is not happened in the past. He said he did not feel lightheaded at any time. He does not have a history of hypertension. He is a type II diabetic. Patient is otherwise healthy no acute distress. He states he has no symptoms at this time his made him come in to get evaluated. Symptoms of I did explain to patient follow-up primary care physician and maybe ophthalmology. He does not have a history of hypertension. He agrees with plan of care discharged home with diagnosis of visual changes. He denies any headache blurry vision. Denies any history of headaches. Head CT was performed today. Patient's head CT was read negative by radiology. 10 minutes. symptoms lasted for less than in his vision at this time symptoms visual color change. He was seeing red. He denies any blurry vision or double vision. He does not have any redness Differential Diagnosis Differential Diagnosis: visual changes, Headache, blurry vision Medical Records Medical records reviewed: Yes I reviewed the patient's medical records Lab Data Lab results reviewed: Yes I reviewed the patient's lab results Imaging Data CT scan - head: Attestation: I have reviewed the pertinent imaging results. Radiologist's impression: Head: Read negative by radiology. Discharge Plan Discharge Chief Complaint: Eye Problems Clinical Impression: Vision changes Patient Disposition: Home, Self-Care Time of Disposition Decision: 17:39 Condition: Good Prescriptions / Home Meds: No Action Jardiance 10 mg tablet 10 mg PO Q24H glyburide micronized 6 mg tablet 6 mg PO Q12H metformin 500 mg tablet 500 mg PO Q8H oxycodone 10 mg tablet 10 mg PO PRN pioglitazone 30 mg tablet 30 mg PO Q24H ondansetron HCl 4 mg/5 mL solution 1.6 mg PO DAILY PRN (Reason: nausea and vomiting) Qty: 10 0RF pantoprazole 40 mg tablet,delayed release (DR/EC) 40 mg PO QDAY liothyronine 5 mcg tablet 10 mcg PO QDAY Print Language: Hebrew Instructions: Blurred Vision (ED) Additional Instructions: follow up with eye doctor Referrals: Jose Alberto Young MD [Primary Care Provider, Family Practice] - 1 week
[2025-01-31 17:44] VITALS: BP 160/89; PULSE 87; O2SAT 98
== END 2025-01-31 17:46 | disposition home or self-care (01) ==
PROVIDERS: Emergency Provider Emergency Medicine; PCP Family Medicine
DX: H53.9 Unspecified visual disturbance (principal); E11.9 Type 2 diabetes mellitus without complications; Z79.84 Long term (current) use of oral hypoglycemic drugs
CPT/HCPCS: 70450; 99284

== ENCOUNTER 2025-04-09 08:47 | Outpatient (OUT) | payer MEDICARE, OTHER, SELFPAY ==
[2025-04-09 09:11] LABS: Hematocrit 39.0 % (42.0-54.0); Hemoglobin 13.6 g/dL (14.0-18.0); Immature Granulocytes Abs Auto 0.01 10^3/uL (0.00-0.03); Immature Granulocytes Pct Auto 0.3 % (0.0-0.5); Lymphocytes Absolute Auto 0.8 10^3/uL (1.2-3.8); Mean Corpuscular HGB Conc 34.9 g/dL (29.9-35.2); Mean Corpuscular Hemoglobin 35.5 pg (25.9-34.0); Mean Corpuscular Volume 101.8 fL (80.0-94.0); Platelet Count 170 10^3/uL (150-450); Red Blood Count 3.83 10^6/uL (4.70-6.10); White Blood Count 3.8 10^3/uL (4.0-11.0)
[2025-04-09 09:52] LABS: Alanine Aminotransferase 25 U/L (16-63); Albumin Globulin Ratio 0.9; Albumin Level 2.9 g/dL (3.4-5.0); Alkaline Phosphatase 72 U/L (46-116); Anion Gap 9.0; Aspartate Amino Transferase 17 U/L (15-37); Blood Urea Nitrogen 22.0 mg/dL (7.0-18.0); Calcium 7.9 mg/dL (8.5-10.1); Carbon Dioxide 29.1 mmol/L (21.0-32.0); Chloride 106 mmol/L (98-107); Cholesterol 131 mg/dL (<=200); Estimated GFR (African America 51 (>=60 mL/min/1.73m^2); Estimated GFR (Non-African Ame 42 (>=60 mL/min/1.73m^2); Free T3 3.07 pg/mL (2.18-3.98); Globulin 3.3 g/dL; Glucose 94 mg/dL (74-106); HDL Cholesterol 60 mg/dL (40-60); Potassium 4.1 mmol/L (3.5-5.1); Sodium 140 mmol/L (136-145); Thyroid Stimulating Hormone 2.800 uIU/mL (0.358-3.740); Total Protein 6.2 g/dL (6.4-8.2); Triglycerides 105 mg/dL (<=150); VLDL CHOLESTEROL 21.0 mg/dL
[2025-04-09 10:45] LABS: Prostate Specific Antigen Dx 4.58 ng/mL (<=4.00)
== END 2025-04-09 08:48 | disposition home or self-care (01) ==
LOC: LAB 08:53
PROVIDERS: PCP Family Medicine; Visit Provider Family Medicine
DX: E78.5 Hyperlipidemia, unspecified (principal); E11.9 Type 2 diabetes mellitus without complications; G62.9 Polyneuropathy, unspecified; F41.9 Anxiety disorder, unspecified; R97.20 Elevated prostate specific antigen [PSA]
CPT/HCPCS: 36415; 80053; 80061; 83036; 84153; 84436; 84443; 84481; 85025

== ENCOUNTER 2025-04-16 10:44 | Outpatient (OUT) | payer MEDICARE, OTHER, SELFPAY ==
--- OUTSIDE RECORDS SUMMARY | 2025-04-16 10:56 | XMS_ITS | CCD ---
Author Organization [facility] Care Team Providers Care Wreath And Garland Maker Name Role Phone HANNA MATHIAS Primary Care Unavailable SELF, REFERRED Referring Unavailable TRISH CEVALLOS Admitting Unavailable FRANCIS SAVAGE Attending Unavailable [place] Procedure Practitioner Unavailab DANIELA Pennington Surgeon Unavailable [place] Procedure Practitioner Unavailab FRANCIS Cruz Surgeon Unavailable [...] Hanna Mathias MD Primary Care Provider [phone] Unavailable Primary Care Provider UnavailHanna Villafuerte MD Primary Care Provider [phone] STEW HANNA M Referring Unavailable MARY ZARATE Attending Unavailable MARY ZARATE Referring Unavailable BERNARDO STAPLETON Admitting Unavailable BERNARDO STAPLETON Attending Unavailable EDGAR JUSTICE Attending Unavailable HOY, HANNA M Primary Care Unavailable BERNARDO STAPLETON Referring Unavailable HOY, HANNA M Primary Care Unavailable BERNARDO STAPLETON Admitting Unavailable BERNRADO STAPLETON Attending Unavailable BERNARDO STAPLETON Referring Unavailable [...] Primary Care Unavailable LATRICE HILARIO Attending Unavailable URIEL GUNTER Referring Unavailable Allergies Allergy Classification Reported Allergen(s) Allergy Type Date of Onset Reaction(s) Facility Aminoglycosides (antibiotic) (1 source) Tobramycin Drug Allergy 0 Other: See Comments [facility] Macrolides (antibiotic) (2 sources) Azithromycin Drug Allergy 7 Unknown [facility] Sulfonamides (antibiotic) (1 source) Sulfonamides (Antibiotic) Drug Allergy 2 Unknown [facility] (4 sources) Azithromycin; Translations: [AZITHROMYCIN] Drug Allergy 8 [facility] Repository (3 sources) Sulfonamides (Antibiotic); Translations: [SULFA (SULFONAMIDE ANTIBIOTICS)] Drug allergy (disorder) 2 [facility] Repository (20 sources) Azithromycin Drug Allergy 8 Unknown, Other (See Comments) [facility] (20 sources) Erythromycin; Translations: [ERYTHROMYCIN] Drug Allergy 7 Unknown [facility] (20 sources) Sulfonamides (Antibiotic) Drug Allergy 2 Unknown, Other (See Comments) [facility] (20 sources) Tobramycin; Translations: [TOBRAMYCIN] Drug Allergy 0 Other: See Comments, GI Disturbance [facility] (1 source) Erythromycin Drug Allergy [facility] (2 sources) Neomycin; Translations: [NEOMYCIN] Drug Allergy 5 Other (See Comments) [facility] (2 sources) Pseudoephedrine; Translations: [PSEUDOEPHEDRINE ] Drug Allergy 5 Other (See Comments) [facility] Medications Current Medications Medication Drug Class(es) Dates [...] Comment on above: TAKE 2 TABLETS BY MO UT ONCE A WEEK empagliflozin 10 mg oral tablet (20 sources) Sodium-Glucose Cotransporter 2 Inhibitor Start: take 1 tablet by mouth once daily JARDIANCE 10 mg tablet Take 10 mg by mouth once daily. 08/21/2022 Active Comment on above: Take 10 mg by mouth once daily. fenofibrate 145 mg oral tablet (20 sources) Peroxisome Proliferator Receptor alpha Agonist Start: take 1 tablet by mouth once daily fenofibrate nanocrystallized (TRICOR) 145 mg tablet Take 145 mg by mouth once daily. 10/29/2017 Active Comment on above: Take 145 mg by mouth once daily. 30 actuat fluticasone furoate 0.1 mg/actuat / vilanterol 0.025 mg/actuat dry powder inhaler (20 sources) Corticosteroid, beta2-Adrenergic Agonist Start: 11-12-2 018 BREO ELLIPTA 100-25 mcg/dose inhaler 1 Inhalation once daily. 08/05/2018 Active Comment on above: 1 Inhalation once da mary. glyBURIDE 6 mg oral tablet (20 sources) Sulfonylurea Start: 023 glyBURIDE micronized (GLYNASE) 6 mg tablet 02/15/2023 Active Start: 07-25-2021 glyBURIDE micr onized (GLYNASE) 3 mg tablet lenalidomide 5 mg oral capsule (20 sources) Thalidomide Analog Start: 01-19-2025 End: 02-27-2025 lenalidomide (REVLIMID) 5 mg capsule Take 1 capsule by mouth daily for 21 days on and 7 days off. 21 capsule 02/27/2025 Active Start: 10-17-2023 End: 12-11-2024 lenalidomide (REVLIMID) 5 [...] on above: Take 1 capsule by mo ut daily for 21 days on and 7 days off. liothyronine sodium 0.005 mg oral tablet (20 sources) l-Triiodothyronin e Start: 4 take 2 tablets by mouth in the [...] drop(s) into the eye(s) four times daily tobramycin-dexamet hasone (TOBRADEX) ophthalmic suspension INSTILL 2 DROPS INTO [...] Comment on above: Take 1 capsule by [facility] once daily. hydrocortisone 10 mg/ml / neomycin 3.5 mg/ml / polymyxin b [id number] unt/ml otic solution (20 sources) Aminoglycoside Antibacterial, Polymyxin-class Antibacterial, Corticosteroid Start: 05-29-2019 End: 11-27-2023 neomycin-polymyxin -hydrocortisone (CORTISPORIN) otic solution INSTILL 3 4 DROPS [...] mg in NaCl 0.9% 250 mL (AREDIA) (2 sources) Start: 02-17-2025 End: 02-17-2025 30 mg, INTRAVENOUS, at 125 mL/hr, Administer over 2 Hours, ONCE, 1 dose, On Sun02/17/25 at 1200, APPROXIMATE TOTAL VOLUME____mL - 24 HOUR EXP: 02/18/2025 1210 RT Hazardous Potential Reproductive Risk Drug: Use appropriate PPE. Start: 02-26-2024 End: 02-26-2024 pamidronate 30 mg in NaCl 0. 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 Past or Other Problems Problem [...] Long-term current use of systemic steroid; Translations: [longterm (current) use of systemic steroids] Onset: 10-20-2015 [...] Test Name Value Interpretation Reference Range Facility CBC W Auto Differential pane l (Bld)on 02-17-2025 Basophils (Bld) [#/Vol] 0.08 10*3/uL [facility] Basophils/100 WBC (Bld) 1.5 % [facility] Differential cell count method Nom (Bld) Auto [facility] Eosinophils (Bld) [#/Vol] 0.38 10*3/uL [facility] Eosinophils/100 WBC (Bld) 6.9 % [facility] Erythrocyte distribution width (RBC) [Ratio] 14.5 % 11.5 - 15.0 % [facility] Hematocrit (Bld) [Volume fraction] 44.2 % 39.0 - 51.0 % [facility] Hemoglobin (Bld) [Mass/Vol] 15.4 g/dL 13.0 - 17.0 g/dL [facility] Immature granulocytes (Bld) [#/Vol] 0.04 10*3/uL [facility] Immature granulocytes/100 WBC (Bld) 0.7 % [facility] Interpretation and review of laboratory results Abnormal [facility] Lymphocytes (Bld) [#/Vol] 1.09 10*3/uL [facility] Lymphocytes/100 WBC (Bld) 19.8 % [facility] MCH (RBC) [Entitic mass] 34.8 pg High 26.0 - 34.0 pg [facility] MCHC (RBC) [Mass/Vol] 34.8 g/dL 30.5 - 36.0 g/dL [facility] MCV (RBC) [Entitic vol] 100 fL 80.0 - 100.0 fL [facility] Monocytes (Bld) [#/Vol] 0.8 10*3/uL [facility] Monocytes/100 WBC (Bld) 14.5 % [facility] Neutrophils (Bld) [#/Vol] 3.12 10*3/uL [facility] Neutrophils/100 WBC (Bld) 56.6 % [facility] Nucleated RBC (Bld) [#/Vol] [facility] Nucleated RBC/100 WBC (Bld) [Ratio] 0 % /[address] [facility] Platelet mean volume (Bld) [Entitic vol] 10.6 fL 9.0 - 12.7 fL [facility] Platelets (Bld) [#/Vol] 217 10*3/uL [facility] RBC (Bld) [#/Vol] 4.42 10*6/uL 4.20 - 6.0 0 m/uL [facility] WBC (Bld) [#/Vol] 5.51 10*3/uL [facility] Basophils (Bld) [#/Vol] 0.08 10*3/uL Normal <0.11 [facility] Comment on above: Order Comment: Speci men Type: BLOOD SPECIMENOrdering Facility: [facility] Address: [address] [place] [address] Performed By: #### 5 7021-8 ####[facility] LABCLIA [id number] [place] [address] Basophils/100 WBC (Bld) 1.5 % Normal [facility] Comment on above: Order Comment: Speci men Type: BLOOD SPECIMENOrdering Facility: [facility] Address: [address] [place] [address] Performed By: #### 5 7021-8 ####[facility] LABCLIA [id number] [place] [address] Differential cell count method Nom (Bld) Auto Normal [facility] Comment on above: Order Comment: Speci men Type: BLOOD SPECIMENOrdering Facility: [facility] Address: [address] [place] [address] Performed By: #### 5 7021-8 ####[facility] LABCLIA [id number] [place] [address] Eosinophils (Bld) [#/Vol] 0.38 10*3/uL Normal <0.46 [facility] Comment on above: Order Comment: Speci men Type: BLOOD SPECIMENOrdering Facility: [facility] Address: [address] [place] [address] Performed By: #### 5 7021-8 ####[facility] LABCLIA [id number] [place] [address] Eosinophils/100 WBC (Bld) 6.9 % Normal [facility] Comment on above: Order Comment: Speci men Type: BLOOD SPECIMENOrdering Facility: [facility] Address: [address] [place] [address] Performed By: #### 5 7021-8 ####[facility] LABCLIA [id number] [place] [address] Erythrocyte distribution width (RBC) [Ratio] 14.5 % Normal 11.5-15.0 [facility] Comment on above: Order Comment: Speci men Type: BLOOD SPECIMENOrdering Facility: [facility] Address: [address] [place] [address] Performed By: #### 5 7021-8 ####[facility] LABIA [id number] [place] [address] Hematocrit (Bld) [Volume fraction] 44.2 % Normal 39.0-51.0 [facility] Comment on above: Order Comment: Speci men Type: BLOOD SPECIMENOrdering Facility: [facility] Address: [address] [place] [address] Performed By: #### 5 7021-8 ####[facility] LABIA [id number] [place] [address] Hemoglobin (Bld) [Mass/Vol] 15.4 g/dL Normal 13.0-17.0 [facility] Comment on above: Order Comment: Speci men Type: BLOOD SPECIMENOrdering Facility: [facility] Address: [address] [place] [address] Performed By: #### 5 7021-8 ####[facility] LABIA [id number] [place] [address] Immature granulocytes (Bld) [#/Vol] 0.04 10*3/uL Normal <0.10 [facility] Comment on above: Order Comment: Speci men Type: BLOOD SPECIMENOrdering Facility: [facility] Address: [address] [place] [address] Performed By: #### 5 7021-8 ####[facility] LABCLIA [id number] [place] [address] Immature granulocytes/100 WBC (Bld) 0.7 % Normal [facility] Comment on above: Order Comment: Speci men Type: BLOOD SPECIMENOrdering Facility: [facility] Address: [address] [place] [address] Performed By: #### 5 7021-8 ####[facility] LABCLIA [id number] [place] [address] Lymphocytes (Bld) [#/Vol] 1.09 10*3/uL Normal 1.00-4.00 [facility] Comment on above: Order Comment: Speci men Type: BLOOD SPECIMENOrdering Facility: [facility] Address: [address] [place] [address] Performed By: #### 5 7021-8 ####[facility] LABCLIA [id number] [place] [address] Lymphocytes/100 WBC (Bld) 19.8 % Normal [facility] Comment on above: Order Comment: Speci men Type: BLOOD SPECIMENOrdering Facility: [facility] Address: [address] [place] [address] Performed By: #### 5 7021-8 ####[facility] LABCLIA [id number] [place] [address] MCH (RBC) [Entitic mass] 34.8 pg High 26.0-34.0 [facility] Comment on above: Order Comment: Speci men Type: BLOOD SPECIMENOrdering Facility: [facility] Address: [address] [place] [address] Performed By: #### 5 7021-8 ####[facility] LABCLIA [id number] [place] [address] MCHC (RBC) [Mass/Vol] 34.8 g/dL Normal 30.5-36.0 [facility] Comment on above: Order Comment: Speci men Type: BLOOD SPECIMENOrdering Facility: [facility] Address: [address] [place] [address] Performed By: #### 5 7021-8 ####[facility] LABCLIA [id number] [place] [address] MCV (RBC) [Entitic vol] 100.0 fL Normal 80.0-100.0 [facility] Comment on above: Order Comment: Speci men Type: BLOOD SPECIMENOrdering Facility: [facility] Address: [address] [place] [address] Performed By: #### 5 7021-8 ####[facility] LABCLIA [id number] [place] [address] Monocytes (Bld) [#/Vol] 0.80 10*3/uL Normal <0.87 [facility] Comment on above: Order Comment: Speci men Type: BLOOD SPECIMENOrdering Facility: [facility] Address: [address] [place] [address] Performed By: #### 5 7021-8 ####[facility] LABCLIA [id number] [place] [address] Monocytes/100 WBC (Bld) 14.5 % Normal [facility] Comment on above: Order Comment: Speci men Type: BLOOD SPECIMENOrdering Facility: [facility] Address: [address] [place] [address] Performed By: #### 5 7021-8 ####[facility] LABCLIA [id number] [place] [address] Neutrophils (Bld) [#/Vol] 3.12 10*3/uL Normal 1.45-7.50 [facility] Comment on above: Order Comment: Speci men Type: BLOOD SPECIMENOrdering Facility: [facility] Address: [address] [place] [address] Performed By: #### 5 7021-8 ####[facility] LABCLIA [id number] [place] [address] Neutrophils/100 WBC (Bld) 56.6 % Normal [facility] Comment on above: Order Comment: Speci men Type: BLOOD SPECIMENOrdering Facility: [facility] Address: [address] [place] [address] Performed By: #### 5 7021-8 ####[facility] LABCLIA [id number] [place] [address] Nucleated RBC (Bld) [#/Vol] 10*3/uL Normal <0.01 [facility] Comment on above: Order Comment: Speci men Type: BLOOD SPECIMENOrdering Facility: [facility] Address: [address] [place] [address] Performed By: #### 5 7021-8 ####[facility] LABCLIA [id number] [place] [address] Nucleated RBC/100 WBC (Bld) [Ratio] 0.0 /100 WBC Normal [facility] Comment on above: Order Comment: Speci men Type: BLOOD SPECIMENOrdering Facility: [facility] Address: [address] [place] [address] Performed By: #### 5 7021-8 ####[facility] LABCLIA [id number] [place] [address] Platelet mean volume (Bld) [Entitic vol] 10.6 fL Normal 9.0-12.7 [facility] Comment on above: Order Comment: Speci men Type: BLOOD SPECIMENOrdering Facility: [facility] Address: [address] [place] [address] Performed By: #### 5 7021-8 ####[facility] LABCLIA [id number] [place] [address] Platelets (Bld) [#/Vol] 217 10*3/uL Normal 150-400 [facility] Comment on above: Order Comment: Speci men Type: BLOOD SPECIMENOrdering Facility: [facility] Address: [address] [place] [address] Performed By: #### 5 7021-8 ####[facility] LABIA [id number] [place] [address] RBC (Bld) [#/Vol] 4.42 10*6/uL Normal 4.20-6.00 [facility] Comment on above: Order Comment: Speci men Type: BLOOD SPECIMENOrdering Facility: [facility] Address: [address] [place], [place] [address] Performed By: #### 5 7021-8 ####[facility] LABIA [id number] [place] [address] WBC (Bld) [#/Vol] 5.51 10*3/uL Normal 3.70-11.00 [facility] Comment on above: Order Comment: Speci men Type: BLOOD SPECIMENOrdering Facility: [facility] Address: [address] [place], [place] [address] Performed By: #### 5 7021-8 ####[facility] [id number] [place] [address] CNOVSPon 02-17-2025 CNOVS Visit (SP) Office ([place]) ZACH MANUEL ([id number]) 1945 M Date Time Provider Department 02/17/25 11:20 AM URIEL GUNTER During your visit today, we recorded the following information about you: Temperature Pulse Respiration Blood pressure 97.2 degrees 70/minute 16/minute 129/73 Weight Height 83 kg 1.753 m Uriel Gunter MD 02/17/2025 8:34 PM Signed PATIENT NAME: Zach Manuel DATE: 02/17/2025 PRIMARY CARE PHYSICIAN: Dr. Hanna Mathias OTHER PHYSICIANS: Dr. Lewis, Dr. Martinez Portions of this encounter note have been copied from the note from 05/27/2024 and has been updated where appropriate, and reflect my current medical decision making from today. CC: This is a 79 year old male with a history of multiple myeloma, seen for scheduled follow-up. INTERIM HISTORY: Since the patient's last visit here he has had no significant medical changes. He remains on treatment with Revlimid 5 mg daily 3 weeks on 1 week off, plus dexamethasone 8 mg weekly. He is tolerating these medications well. He denies any bone pain or other systemic symptoms. No difficulty with urination. No recent infections. 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 PHYSICAL EXAM: Vitals: BP 129/73 Pulse 70 Temp 36.2 ?C (97.2 ?F) (Temporal) Resp 16 Ht 175.3 cm (5' 9.02 ) Wt 83 kg (182 lb 15.7 oz) SpO2 96% BMI 27.01 kg/m? ECOG 0 Exam limited to gross [...] tissue with patchy atrophy and chronic inflammation RADIOLOGY/ (more content not included)... Normal [facility] metabolic 2000 panelon 02-17-2025 Albumin [Mass/Vol] 4.2 g/dL 3.9 - 4.9 g/dL [facility] ALP [Catalytic activity/Vol] 95 U/L 38 - 113 U/L [facility] Comment on above: Corrected result: Pr eviously reported as 99 U/L on 02/17/2025 at 11:40 AM EDT. ALT [Catalytic activity/Vol] 15 U/L 10 - 54 U/L [facility] Comment on above: Corrected result: Pr eviously reported as 12 U/L on 02/17/2025 at 11:40 AM EDT. Anion gap [Moles/Vol] 11 mmol/L 8 - 15 mmol/L [facility] AST [Catalytic activity/Vol] 22 U/L 14 - 40 U/L [facility] Comment on above: Corrected result: Pr eviously reported as 15 U/L on 02/17/2025 at 11:40 AM EDT. Bilirubin [Mass/Vol] 1.7 mg/dL High 0.2 - 1.3 mg/dL [facility] Calcium [Mass/Vol] 8.5 mg/dL 8.5 - 10. 2 mg/dL [facility] Comment on above: Corrected result: Pr eviously reported as 8.3 mg/dL on 02/17/2025 at 11:40 AM EDT. Chloride [Moles/Vol] 101 mmol/L 98 - 107 mmol/L [facility] CO2 [Moles/Vol] 26 mmol/L 22 - 30 mmol/L [facility] Creatinine [Mass/Vol] 1.6 mg/dL High 0.73 - 1.22 mg/dL [facility] GFR/1.73 sq M.predicted among non-blacks MDRD (S/P/Bld) [Vol rate/Area] 44 mL/min/{1.73_m2} Low - PINF [facility] inic Comment on above: Estimated Glomerular Filtration Rate (eGFR) is calculated using the 2020 CKD-EPI creatinine equation. This equation utilizes serum creatinine, sex, and age as parameters. The creatinine assay has traceable calibration to isotope dilution-mass spectrometry. Refer to KDIGO guidelines for clinical interpretation. In patients with unstable renal function, e.g. those with acute kidney injury, the eGFR may not accurately reflect actual GFR. Glucose [Mass/Vol] 185 mg/dL High 74 - 99 mg/dL [facility] Comment on above: The [place] Diab[employer] s Association (ADA) provides guidance for cutoff values [...] Standards of Medical Care in Diabetes 2016, [place] [employer] Association. Diabetes Care. 2016.39(Suppl 1). Corrected result: Previously reported as 189 mg/dL on 02/17/2025 at 11:40 AM EDT. Interpretation and review of laboratory results Abnormal [facility] Potassium [Moles/Vol] 4.6 mmol/L 3.7 - 5.1 mmol/L [facility] Protein [Mass/Vol] 7 g/dL 6.3 - 8.0 g/dL [facility] Comment on above: Corrected result: Pr eviously reported as 6.6 g/dL on 02/17/2025 at 11:40 AM EDT. Sodium [Moles/Vol] 138 mmol/L 136 - 144 mmol/L [facility] Urea nitrogen [Mass/Vol] 23 mg/dL 9 - 24 mg/dL [facility] Comment on above: Corrected result: Pr eviously reported as 25 mg/dL on 02/17/2025 at 11:40 AM EDT. [facility] Albumin [Mass/Vol] 4.2 g/dL Normal 3.9-4.9 [facility] Comment on above: Order Comment: Speci men Type: BLOOD SPECIMENOrdering Facility: [facility] Address: [address] [place] [address] [place] [address] Performed By: #### 2 4323-8 ####[facility] LABCLIA [id number] [place] [address] [place] ALP [Catalytic activity/Vol] 95 U/L Normal 38-113 [facility] Comment on above: Order Comment: Speci men Type: BLOOD SPECIMENOrdering Facility: [facility] Address: [address] [place] [address] Result Comment: Kd ected result: Previously reported as 99 U/L on 02/17/2025 at 11:40 AM EDT. Performed By: #### 2 4323-8 ####[facility] LABCLIA [id number] [place] [address] [place] ALT [Catalytic activity/Vol] 15 U/L Normal 10-54 [facility] Comment on above: Order Comment: Speci men Type: BLOOD SPECIMENOrdering Facility: [facility] Address: [address] [place] [address] Result Comment: Kd ected result: Previously reported as 12 U/L on 02/17/2025 at 11:40 AM EDT. Performed By: #### 2 4323-8 ####[facility] LABIA [id number] [place] [address] [place] Anion gap [Moles/Vol] 11 mmol/L Normal 8-15 [facility] Comment on above: Order Comment: Speci men Type: BLOOD SPECIMENOrdering Facility: [facility] Address: [address] [place] [address] Performed By: #### 2 4323-8 ####[facility] LABCLIA [id number] [place] [address] [place] AST [Catalytic activity/Vol] 22 U/L Normal 14-40 [facility] Comment on above: Order Comment: Speci men Type: BLOOD SPECIMENOrdering Facility: [facility] Address: [address] [place] [address] Result Comment: Kd ected result: Previously reported as 15 U/L on 02/17/2025 at 11:40 AM EDT. Performed By: #### 2 4323-8 ####[facility] LABCLIA [id number] [address] [place] [address] [place] Bilirubin [Mass/Vol] 1.7 mg/dL High 0.2-1.3 [facility] Comment on above: Order Comment: Speci men Type: BLOOD SPECIMENOrdering Facility: [facility] Address: [address] [place] [address] Performed By: #### 2 4323-8 ####[facility] LABCLIA [id number] [place] [address] [place] Calcium [Mass/Vol] 8.5 mg/dL Normal 8.5-10.2 [facility] Comment on above: Order Comment: Speci men Type: BLOOD SPECIMENOrdering Facility: [facility] Address: [address] [place] [address] Result Comment: Kd ected result: Previously reported as 8.3 mg/dL on 02/17/2025 at 11:40 AM EDT. Performed By: #### 2 4323-8 ####[facility] LABCLIA [id number] [place] [address] [place] Chloride [Moles/Vol] 101 mmol/L Normal 98-107 [facility] Comment on above: Order Comment: Speci men Type: BLOOD SPECIMENOrdering Facility: [facility] Address: [address] [place] [address] Performed By: #### 2 4323-8 ####[facility] LABCLIA [id number] [facility] [address] [place] CO2 [Moles/Vol] 26 mmol/L Normal 22-30 [facility] Comment on above: Order Comment: Speci men Type: BLOOD SPECIMENOrdering Facility: [facility] Address: [address] [place] [address] Performed By: #### 2 4323-8 ####[facility] LABCLIA [id number] [facility] [place] [address] [place] Creatinine [Mass/Vol] 1.60 mg/dL High 0.73-1.22 [facility] Comment on above: Order Comment: Michelle bueno Type: BLOOD SPECIMENOrdering Facility: [facility] Address: [address] [place] [address] Performed By: #### 2 4323-8 ####[facility] LABCLIA [id number] [place] [address] [place] Creatinine and Glomerular filtration rate.predicted panel (S/P/Bld) 44 mL/min/1.73m??? Low >=60 [facility] Comment on above: Order Comment: Michelle bueno Type: BLOOD SPECIMENOrdering Facility: [facility] Address: [address] [place] [address] Result Comment: Chanda mated Glomerular Filtration Rate [...] actual GFR. Performed By: #### 2 4323-8 ####[facility] LABCLIA [id number] [place] [address] [place] Glucose [Mass/Vol] 185 mg/dL High 74-99 [facility] Comment on above: Order Comment: Michelle bueno Type: BLOOD SPECIMENOrdering Facility: [facility] Address: [address] [place] [address] Result Comment: The [place] Diabetes Association (ADA) provides guidance for cutoff [...] Standards of Medical Care in Diabetes 2016, [place] [employer]. Diabetes Care. 2016.39(Suppl 1). Corrected result: Previously reported as 189 mg/dL on 02/17/2025 at 11:40 AM EDT. Performed By: #### 2 4323-8 ####[facility] LABCLIA [id number] [address] [address] [place] Potassium [Moles/Vol] 4.6 mmol/L Normal 3.7-5.1 [facility] Comment on above: Order Comment: Speci men Type: BLOOD SPECIMENOrdering Facility: [facility] Address: [address] [place], [place] [address] Performed By: #### 2 4323-8 ####[facility] LABCLIA [id number] [address] [address] [place] Protein [Mass/Vol] 7.0 g/dL Normal 6.3-8.0 [facility] Comment on above: Order Comment: Speci men Type: BLOOD SPECIMENOrdering Facility: [facility] Address: [address] [place] [address] Result Comment: Kd ected result: Previously reported as 6.6 g/dL on 02/17/2025 at 11:40 AM EDT. Performed By: #### 2 4323-8 ####[facility] LABIA [id number] [address] [address] [place] Sodium [Moles/Vol] 138 mmol/L Normal 136-144 [facility] Comment on above: Order Comment: Speci men Type: BLOOD SPECIMENOrdering Facility: [facility] Address: [address] [place], [place] [address] Performed By: #### 2 4323-8 ####[facility] LABCLIA [id number] [address] [address] [place] Urea nitrogen [Mass/Vol] 23 mg/dL Normal 9-24 [facility] Comment on above: Order Comment: Speci men Type: BLOOD SPECIMENOrdering Facility: [facility] Address: [address] [place] [address] Result Comment: Kd ected result: Previously reported as 25 mg/dL on 02/17/2025 at 11:40 AM EDT. Performed By: #### 2 4323-8 ####[facility] LABCLIA [id number] [address] [place] [address] [facility] [place] IMMUNOFIXATION SCREEN, SERUM on 02-17-2025 INTERPRETATION (MPA) Atypical restricted bands are present in the IgG and kappa regions. Consistent with IgG kappa monoclonal gammopathy. Normal [facility] Comment on above: Order Comment: Speci men Type: BLOOD SPECIMENOrdering Facility: [facility] Address: [address] [place] [address] Performed By: #### I FESC ####[facility] LABIA [id number] [address], [address] [place] MPA RESULT M protein is present. Abnormal No M p rotein is identified. [facility] Comment on above: Order Comment: Speci men Type: BLOOD SPECIMENOrdering Facility: [facility] Address: [address] [place] [address] Performed By: #### I FESC ####[facility] LABCLIA [id number] [address] [place] [address] [facility] [place] STAFF REVIEW ([facility]) Reviewed by Donaldo Rivas MD, Ph.D ([id number]) Normal [facility] Comment on above: Order Comment: Speci men Type: BLOOD SPECIMENOrdering Facility: [facility] Address: [address] [place] [address] Performed By: #### I FESC ####[facility] LABIA [id number] [address], [facility] [place] IMMUNOGLOBULINS,IGG,IGA,IGMo n 02-17-2025 IgA [Mass/Vol] 118 mg/dL Normal 70-400 [facility] Comment on above: Order Comment: Speci men Type: BLOOD SPECIMENOrdering Facility: [facility] Address: [address] [place] [address] Performed By: #### S ERIMM ####[facility] LABCLIA [id number] [place] [address] [place] IgG [Mass/Vol] 1245 mg/dL Normal 700-1600 [facility] Comment on above: Order Comment: Speci men Type: BLOOD SPECIMENOrdering Facility: [facility] Address: [address] [place] [address] Performed By: #### S ERIMM ####[facility] LABCLIA [id number] [place] [address] [place] IgM [Mass/Vol] 21 mg/dL Low 40-230 [facility] Comment on above: Order Comment: Speci men Type: BLOOD SPECIMENOrdering Facility: [facility] Address: [address] [place] [address] Performed By: #### S ERIMM ####[facility] LABIA [id number] [place] [address] [place] KAPPA/DANIELS,FREE,SERon 2024 Immunoglobulin light chains.kappa.free (S) [Mass/Vol] 37.4 mg/L High 3.3-19.4 [facility] Comment on above: Order Comment: Speci men Type: BLOOD SPECIMENOrdering Facility: [facility] Address: [address] [place] [address] Result Comment: Rare ly, increased serum free light chains levels may not be detected or accurately quantified due to prozone phenomenon or in high viscosity samples using this immunoturbidimetric assay. Correlation with other laboratory results and clinical findings is recommended. The [place] Free Light Chain was performed using the Binding Site Optilite immunoturbidimetric method. Result obtained with different assay methods or kits cannot be used interchangeably. Performed By: #### K LFRS ####[facility] LABCLIA [id number] [place] [address] [place] Immunoglobulin light chains.kappa/Immun oglobulin light chains.lambda (S) [Mass ratio] 1.65 Normal 0.26-1.65 [facility] Comment on above: Order Comment: Speci men Type: BLOOD SPECIMENOrdering Facility: [facility] Address: [address] [place] [address] Performed By: #### K LFRS ####[facility] LABCLIA [id number] [place] [address] [place] Immunoglobulin light chains.lambda.free [Mass/Vol] 22.7 mg/L Normal 5.7-26.3 [facility] Comment on above: Order Comment: Speci men Type: BLOOD SPECIMENOrdering Facility: [facility] Address: [address] [place] [address] Result Comment: Rare ly, increased serum free [...] used interchangeably. Performed By: #### K LFRS ####[facility] LABCLIA [id number] [place] [address] [place] PROTEIN ELECTROPHORESIS SERU M WITH TOÑITO (P)on 02-17-2025 Albumin [Mass/Vol] 4.01 g/dL Normal 3.43-5.41 [facility] Comment on above: Order Comment: Speci men Type: BLOOD SPECIMENOrdering Facility: [facility] Address: [address] [place] [address] Performed By: #### L [id number] ####[facility] LABIA [id number] [place] [address] [place] Alpha 1 globulin Elph [Mass/Vol] 0.23 g/dL Normal 0.18-0.43 [facility] Comment on above: Order Comment: Speci men Type: BLOOD SPECIMENOrdering Facility: [facility] Address: [address] [place] [address] Performed By: #### L [id number] ####[facility] LABCLIA [id number] [place] [address] [place] Alpha 2 globulin Elph [Mass/Vol] 0.66 g/dL Normal 0.42-0.98 [facility] Comment on above: Order Comment: Speci men Type: BLOOD SPECIMENOrdering Facility: [facility] Address: [address] [place] [address] Performed By: #### L [id number] ####[facility] LABCLIA [id number] [place] [address] [place] Beta globulin Elph [Mass/Vol] 0.73 g/dL Normal 0.61-1.17 [facility] Comment on above: Order Comment: Speci men Type: BLOOD SPECIMENOrdering Facility: [facility] Address: [address] [place] [address] Performed By: #### L [id number] ####[facility] LABCLIA [id number] [place] [address] [place] COMMENT (SERUM PROT ELECTRO) Monoclonal Protein analysis (immunofixation) is not indicated. Normal [facility] Comment on above: Order Comment: Speci men Type: BLOOD SPECIMENOrdering Facility: [facility] Address: [address] [place] [address] Performed By: #### L [id number] ####[facility] LABCLIA [id number] [place] [address] [place] Gamma globulin Elph [Mass/Vol] 1.08 g/dL Normal 0.53-1.51 [facility] Comment on above: Order Comment: Speci men Type: BLOOD SPECIMENOrdering Facility: [facility] Address: [address] [place] [address] Performed By: #### L [id number] ####[facility] LABCLIA [id number] [address] [place] [address] [place] INTERPRETATION COMMENT FOR PROTEIN ELECTROPHORESIS See separate immunofixation report for characterization of monoclonal gammopathy. Normal [facility] Comment on above: Order Comment: Speci men Type: BLOOD SPECIMENOrdering Facility: [facility] Address: [address] [place] [address] Performed By: #### L [id number] ####[facility] LABCLIA [id number] [address] [place] [address] [place] M-PROTEIN LOCATION Gamma Fraction 1 Normal [facility] Comment on above: Order Comment: Speci men Type: BLOOD SPECIMENOrdering Facility: [facility] Address: [address] [place] [address] Performed By: #### L [id number] ####[facility] LABCLIA [id number] [place] [id number] [place] Protein Fractions [Interp] An M protein is identified on protein electrophoresis. Abnormal No definitive M protein is identified on protein electrophores is. [facility] Comment on above: Order Comment: Speci men Type: BLOOD SPECIMENOrdering Facility: [facility] Address: [address] [place] [address] Performed By: #### L [id number] ####[facility] LABCLIA [id number] [address] [place] [address] [place] Protein.monoclonal Elph [Mass/Vol] 0.65 g/dL High <=0.00 [facility] Comment on above: Order Comment: Speci men Type: BLOOD SPECIMENOrdering Facility: [facility] Address: [address] [place], [place] [address] Performed By: #### L [id number] ####[facility] LABCLIA [id number] [address] [address] [place] SPE STAFF REVIEW Reviewed by Donaldo Rivas MD, Ph.D ([id number]) Normal [facility] Comment on above: Order Comment: Speci men Type: BLOOD SPECIMENOrdering Facility: [facility] Address: [address] [place] [address] Performed By: #### L [id number] ####[facility] LABCLIA [id number] [place] [address] [place] Prot SerPl-mCncon 02-17-2025 Protein [Mass/Vol] 6.7 g/dL Normal 6.3-8.0 [facility] Comment on above: Order Comment: Speci men Type: BLOOD SPECIMENOrdering Facility: [facility] Address: [address] [place] [address] Performed By: #### 2 885-2 ####[facility] LABCLIA [id number] [address] [place] CNPVangie 02-13-2025 CNPN Telephone (HEMTSA) ZACH MANUEL ([id number]) 1945 M Date Time Provider Department 02/13/25 KEYONNA FUENTES HEMTSA During your visit today, we recorded the following information about you: Keyonna Fuentes RN 02/13/2025 11:04 AM Signed Pt in for OV and Aredia on Saturday 02/17, please place and sign more orders. Thanks! TYALER Aldana Kathryn, [facility] 02/13/2025 12:20 PM Signed Orders entered and routed in separate encounter. Dustin Woodson, PharmD, BCOP Allergies As of Date: 02/13/2025 Noted Allergy Reaction AZITHROMYCIN 07/12/2018 16 - Unknown ERTHROMYCIN (ERYTHROMYCIN) 12/05/2016 16 - Unknown SULFA (SULFONAMIDE ANTIBIOTICS) 09/19/2012 16 - Unknown TOBRAMYCIN 03/08/2020 14 - Other: See Comments Comments: made condition worse Date Reviewed: 05/27/2024 Reviewed by: Latrice Hilario PA-C - Fully Assessed Reason for Visit: Orders [681] Prescriptions as of 02/16/2025 - lenalidomide (REVLIMID) 5 mg capsule Take [...] with breakfast. 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 [Z79*10/20/2015 Left inguinal hernia [K40.90] 10/20/2015 Former smoker [Z87.891] 10/20/2015 Elevated prostate specific antigen (PSA) [R97.2*03/19/2020 Stage 3 chronic kidney disease, unspecified whe*03/06/2023 Encounter Status:Closed by AINSLEY WOODSON on 02/13/25 Normal [facility] ECG 12 leadon 10-10-2024 TRACEMASTERVUE [facility] CNPNon 05-29-2024 CNPN Telephone (HEMTSA) KALEBZACH ([id number]) 1945 M Date Time Provider Department 05/29/24 [...] Type 2 diabetes mellitus without complication (*10/20/2015 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 [Z79*10/20/2015 Left inguinal hernia [K40.90] 10/20/2015 Former smoker [Z87.891] 10/20/2015 Elevated prostate specific antigen (PSA) [R97.2*03/19/2020 Stage 3 chronic kidney disease, unspecified whe*03/06/2023 Encounter Status:Closed by JUAN FERGUSON on 05/29/24 Normal [facility] CBC W Auto Differential pane l (Bld)on 05-27-2024 Basophils (Bld) [#/Vol] 0.09 10*3/uL Normal <0.11 [facility] Comment on above: Order Comment: Speci men Type: BLOOD SPECIMENOrdering Facility: [facility] Address: [address] [place] [address] Performed By: #### 5 7021-8 ####[facility] LABCLIA [id number] [place] [address] Basophils/100 WBC (Bld) 1.3 % Normal [facility] Comment on above: Order Comment: Speci men Type: BLOOD SPECIMENOrdering Facility: [facility] Address: [address] [place] [address] Performed By: #### 5 7021-8 ####[facility] LABCLIA [id number] [place] [address] Differential cell count method Nom (Bld) Auto Normal [facility] Comment on above: Order Comment: Speci men Type: BLOOD SPECIMENOrdering Facility: [facility] Address: [address] [place] [address] Performed By: #### 5 7021-8 ####[facility] LABCLIA [id number] [place] [address] Eosinophils (Bld) [#/Vol] 0.32 10*3/uL Normal <0.46 [facility] Comment on above: Order Comment: Speci men Type: BLOOD SPECIMENOrdering Facility: [facility] Address: [address] [place] [address] Performed By: #### 5 7021-8 ####[facility] LABCLIA [id number] [place] [address] Eosinophils/100 WBC (Bld) 4.7 % Normal [facility] Comment on above: Order Comment: Speci men Type: BLOOD SPECIMENOrdering Facility: [facility] Address: [address] [place] [address] Performed By: #### 5 7021-8 ####[facility] LABCLIA [id number] [place] [address] Erythrocyte distribution width (RBC) [Ratio] 13.8 % Normal 11.5-15.0 [facility] Comment on above: Order Comment: Speci men Type: BLOOD SPECIMENOrdering Facility: [facility] Address: [address] [place] [address] Performed By: #### 5 7021-8 ####[facility] LABCLIA [id number] [place] [address] Hematocrit (Bld) [Volume fraction] 37.7 % Low 39.0-51.0 [facility] Comment on above: Order Comment: Speci men Type: BLOOD SPECIMENOrdering Facility: [facility] Address: [address] [place] [address] Performed By: #### 5 7021-8 ####[facility] LABCLIA [id number] [place] [address] Hemoglobin (Bld) [Mass/Vol] 13.3 g/dL Normal 13.0-17.0 [facility] Comment on above: Order Comment: Speci men Type: BLOOD SPECIMENOrdering Facility: [facility] Address: [address] [place] [address] Performed By: #### 5 7021-8 ####[facility] LABCLIA [id number] [place] [address] Immature granulocytes (Bld) [#/Vol] 0.03 10*3/uL Normal <0.10 [facility] Comment on above: Order Comment: Speci men Type: BLOOD SPECIMENOrdering Facility: [facility] Address: [address] [place] [address] Performed By: #### 5 7021-8 ####[facility] LABCLIA [id number] [place] [address] Immature granulocytes/100 WBC (Bld) 0.4 % Normal [facility] Comment on above: Order Comment: Speci men Type: BLOOD SPECIMENOrdering Facility: [facility] Address: [address] [place] [address] Performed By: #### 5 7021-8 ####[facility] LABCLIA [id number] [place] [address] Lymphocytes (Bld) [#/Vol] 1.04 10*3/uL Normal 1.00-4.00 [facility] Comment on above: Order Comment: Speci men Type: BLOOD SPECIMENOrdering Facility: [facility] Address: [address] [place] [address] Performed By: #### 5 7021-8 ####[facility] LABCLIA [id number] [place] [address] Lymphocytes/100 WBC (Bld) 15.3 % Normal [facility] Comment on above: Order Comment: Speci men Type: BLOOD SPECIMENOrdering Facility: [facility] Address: [address] [place] [address] Performed By: #### 5 7021-8 ####[facility] LABCLIA [id number] [place] [address] MCH (RBC) [Entitic mass] 36.3 pg High 26.0-34.0 [facility] Comment on above: Order Comment: Speci men Type: BLOOD SPECIMENOrdering Facility: [facility] Address: [address] [place] [address] Performed By: #### 5 7021-8 ####[facility] LABIA [id number] [place] [address] MCHC (RBC) [Mass/Vol] 35.3 g/dL Normal 30.5-36.0 [facility] Comment on above: Order Comment: Speci men Type: BLOOD SPECIMENOrdering Facility: [facility] Address: [address] [place] [address] Performed By: #### 5 7021-8 ####[facility] LABIA [id number] [place] [address] MCV (RBC) [Entitic vol] 103.0 fL High 80.0-100.0 [facility] Comment on above: Order Comment: Speci men Type: BLOOD SPECIMENOrdering Facility: [facility] Address: [address] [place] [address] Performed By: #### 5 7021-8 ####[facility] LABIA [id number] [place] [address] Monocytes (Bld) [#/Vol] 0.72 10*3/uL Normal <0.87 [facility] Comment on above: Order Comment: Speci men Type: BLOOD SPECIMENOrdering Facility: [facility] Address: [address] [place] [address] Performed By: #### 5 7021-8 ####[facility] LABCLIA [id number] [place] [address] Monocytes/100 WBC (Bld) 10.6 % Normal [facility] Comment on above: Order Comment: Speci men Type: BLOOD SPECIMENOrdering Facility: [facility] Address: [address] [place] [address] Performed By: #### 5 7021-8 ####[facility] LABCLIA [id number] [place] [address] Neutrophils (Bld) [#/Vol] 4.60 10*3/uL Normal 1.45-7.50 [facility] Comment on above: Order Comment: Speci men Type: BLOOD SPECIMENOrdering Facility: [facility] Address: [address] [place] [address] Performed By: #### 5 7021-8 ####[facility] LABCLIA [id number] [place] [address] Neutrophils/100 WBC (Bld) 67.7 % Normal [facility] Comment on above: Order Comment: Speci men Type: BLOOD SPECIMENOrdering Facility: [facility] Address: [address] [place] [address] Performed By: #### 5 7021-8 ####[facility] LABCLIA [id number] [place] [address] Nucleated RBC (Bld) [#/Vol] 10*3/uL Normal <0.01 [facility] Comment on above: Order Comment: Speci men Type: BLOOD SPECIMENOrdering Facility: [facility] Address: [address] [place] [address] Performed By: #### 5 7021-8 ####[facility] LABCLIA [id number] [place] [address] Nucleated RBC/100 WBC (Bld) [Ratio] 0.0 /100 WBC Normal [facility] Comment on above: Order Comment: Speci men Type: BLOOD SPECIMENOrdering Facility: [facility] Address: [address] [place] [address] Performed By: #### 5 7021-8 ####[facility] LABCLIA [id number] [place] [address] Platelet mean volume (Bld) [Entitic vol] 10.6 fL Normal 9.0-12.7 [facility] Comment on above: Order Comment: Speci men Type: BLOOD SPECIMENOrdering Facility: [facility] Address: [address] [place] [address] Performed By: #### 5 7021-8 ####[facility] LABCLIA [id number] [place] [address] Platelets (Bld) [#/Vol] 172 10*3/uL Normal 150-400 [facility] Comment on above: Order Comment: Speci men Type: BLOOD SPECIMENOrdering Facility: [facility] Address: [address] [place] [address] Performed By: #### 5 7021-8 ####[facility] [facility] [id number] [place] [address] RBC (Bld) [#/Vol] 3.66 10*6/uL Low 4.20-6.00 [facility] Comment on above: Order Comment: Speci men Type: BLOOD SPECIMENOrdering Facility: [facility] Address: [address] [place] [address] Performed By: #### 5 7021-8 ####[facility] LABCLIA [id number] [place] [address] WBC (Bld) [#/Vol] 6.80 10*3/uL Normal 3.70-11.00 [facility] Comment on above: Order Comment: Speci men Type: BLOOD SPECIMENOrdering Facility: [facility] Address: [address] [place] [address] Performed By: #### 5 7021-8 ####[facility] CANCER [facility] [id number] [place] [address] CNOVSPon 05-27-2024 CNOVSP Visit (SP) Office (HEMASA) ZACH MANUEL ([id number]) 1945 M Date Time Provider Department 05/27/24 1:00 PM LATRICE HILARIO During your visit today, we [...] date: Hyperlipidemia 11/2002: Monoclonal gammopathy Comment: IgG [place] 2002: Multiple myeloma (HCC) No date: Ulcerative [...] IMPRESSION: Enla (more content not included)... Normal [facility] CNPVangie 05-27-2024 CNPN Telephone (HEMASA) ZACH MANUEL ([id number]) 1945 M Date Time Provider Department 05/27/24 LATRICE HILARIO [...] Type 2 diabetes mellitus without complication (*10/20/2015 longterm current use of systemic steroids [Z79*10/20/2015 Left inguinal hernia [K40.90] 10/20/2015 Former smoker [Z87.891] 10/20/2015 Elevated prostate specific antigen (PSA) [R97.2*03/19/2020 Stage 3 chronic kidney disease, unspecified whe*03/06/2023 Encounter Status:Closed by JUAN FERGUSON on 05/27/24 Normal [facility] Comprehensive metabolic 2000 panelon 05-27-2024 Albumin [Mass/Vol] 3.9 g/dL Normal 3.9-4.9 [facility] Comment on above: Order Comment: Speci men Type: BLOOD SPECIMENOrdering Facility: [facility] Address: [address] [place] [address] Result Comment: Kd ected result: Previously reported as 4.1 g/dL on 05/27/2024 at 1:22 PM EDT. Performed By: #### 2 4323-8 ####[facility] LABIA [id number] [place] [address] [place] ALP [Catalytic activity/Vol] 74 U/L Normal 38-113 [facility] Comment on above: Order Comment: Speci men Type: BLOOD SPECIMENOrdering Facility: [facility] Address: [address] [place] [address] Result Comment: Kd ected result: Previously reported as 77 U/L on 05/27/2024 at 1:22 PM EDT. Performed By: #### 2 4323-8 ####[facility] LABIA [id number] [place] [address] [place] ALT [Catalytic activity/Vol] 16 U/L Normal 10-54 [facility] Comment on above: Order Comment: Speci men Type: BLOOD SPECIMENOrdering Facility: [facility] Address: [address] [place] [address] Result Comment: Kd ected result: Previously reported as 10 U/L on 05/27/2024 at 1:22 PM EDT. Performed By: #### 2 4323-8 ####[facility] LABIA [id number] [place] [address] [place] Anion gap [Moles/Vol] 12 mmol/L Normal 8-15 [facility] Comment on above: Order Comment: Speci men Type: BLOOD SPECIMENOrdering Facility: [facility] Address: [address] [place] [address] Performed By: #### 2 4323-8 ####[facility] LABCLIA [id number] [place] [address] [place] AST [Catalytic activity/Vol] 20 U/L Normal 14-40 [facility] Comment on above: Order Comment: Speci men Type: BLOOD SPECIMENOrdering Facility: [facility] Address: [address] [place] [address] Result Comment: Kd ected result: Previously reported as 13 U/L on 05/27/2024 at 1:22 PM EDT. Performed By: #### 2 4323-8 ####[facility] LABCLIA [id number] [place] [address] [place] Bilirubin [Mass/Vol] 0.9 mg/dL Normal 0.2-1.3 [facility] Comment on above: Order Comment: Speci men Type: BLOOD SPECIMENOrdering Facility: [facility] Address: [address] [place] [address] Performed By: #### 2 4323-8 ####[facility] LABCLIA [id number] [place] [address] [place] Calcium [Mass/Vol] 8.5 mg/dL Normal 8.5-10.2 [facility] Comment on above: Order Comment: Speci men Type: BLOOD SPECIMENOrdering Facility: [facility] Address: [address] [place] [address] Performed By: #### 2 4323-8 ####[facility] LABCLIA [id number] [place] [address] [place] Chloride [Moles/Vol] 106 mmol/L Normal 98-107 [facility] Comment on above: Order Comment: Speci men Type: BLOOD SPECIMENOrdering Facility: [facility] Address: [address] [place] [address] Result Comment: Resu lt rechecked. Performed By: #### 2 4323-8 ####[facility] LABCLIA [id number] [place] [address] [place] CO2 [Moles/Vol] 27 mmol/L Normal 22-30 [facility] Comment on above: Order Comment: Speci men Type: BLOOD SPECIMENOrdering Facility: [facility] Address: [address] [place] [address] Result Comment: Kd ected result: Previously reported as 29 mmol/L on 05/27/2024 at 1:22 PM EDT. Performed By: #### 2 4323-8 ####[facility] LABIA [id number] [place] [address] [place] Creatinine [Mass/Vol] 1.59 mg/dL High 0.73-1.22 [facility] Comment on above: Order Comment: Speci men Type: BLOOD SPECIMENOrdering Facility: [facility] Address: [address] [place] [address] Result Comment: Kd ected result: Previously reported as 1.61 mg/dL on 05/27/2024 at 1:22 PM EDT. Performed By: #### 2 4323-8 ####[facility] LABIA [id number] [address] OF [place] Creatinine and Glomerular filtration rate.predicted panel (S/P/Bld) 44 mL/min/1.73m??? Low >=60 [facility] Comment on above: Order Comment: Speci men Type: BLOOD SPECIMENOrdering Facility: [facility] Address: [address] [place] [address] Result Comment: Chanda mated Glomerular Filtration Rate [...] actual GFR. Performed By: #### 2 4323-8 ####[facility] LABCLIA [id number] [place] [address] [place] Glucose [Mass/Vol] 78 mg/dL Normal 74-99 [facility] Comment on above: Order Comment: Michelle bueno Type: BLOOD SPECIMENOrdering Facility: [facility] Address: [address] [place] [address] Result Comment: The [place] Diabetes Association (ADA) provides guidance for cutoff [...] Standards of Medical Care in Diabetes 2016, [place] [employer]. Diabetes Care. 2016.39(Suppl 1). Corrected result: Previously reported as 85 mg/dL on 05/27/2024 at 1:22 PM EDT. Performed By: #### 2 4323-8 ####[facility] LABCLIA [id number] [place] [address] [place] Potassium [Moles/Vol] 4.5 mmol/L Normal 3.7-5.1 [facility] Comment on above: Order Comment: Michelle bueno Type: BLOOD SPECIMENOrdering Facility: [facility] Address: [address] [place] [address] Performed By: #### 2 4323-8 ####[facility] LABCLIA [id number] [place] [id number] [place] Protein [Mass/Vol] 6.6 g/dL Normal 6.3-8.0 [facility] Comment on above: Order Comment: Speci men Type: BLOOD SPECIMENOrdering Facility: [facility] Address: [address] [place] [address] Result Comment: Kd ected result: Previously reported as 6.3 g/dL on 05/27/2024 at 1:22 PM EDT. Performed By: #### 2 4323-8 ####[facility] LABCLIA [id number] [place] [address] [place] Sodium [Moles/Vol] 145 mmol/L High 136-144 [facility] Comment on above: Order Comment: Speci men Type: BLOOD SPECIMENOrdering Facility: [facility] Address: [address] [place] [address] Result Comment: Resu lt rechecked. Performed By: #### 2 4323-8 ####[facility] LABCLIA [id number] [place] [address] [place] Urea nitrogen [Mass/Vol] 15 mg/dL Normal 9- [facility] Comment on above: Order Comment: Speci men Type: BLOOD SPECIMENOrdering Facility: [facility] Address: [address] [place] [address] Result Comment: Kd ected result: Previously reported as 17 mg/dL on 05/27/2024 at 1:22 PM EDT. Performed By: #### 2 4323-8 ####[facility] LABCLIA [id number] [place] [address] [place] IMMUNOFIXATION SCREEN, SERUM on 05-27-2024 INTERPRETATION (MPA) Atypical restricted bands are present in the IgG and kappa regions. Consistent with IgG kappa monoclonal gammopathy. Normal [facility] Comment on above: Order Comment: Speci men Type: BLOOD SPECIMENOrdering Facility: [facility] Address: [address] [place] [address] Performed By: #### I [facility] ####[facility] LABCLIA [id number] [place] [address] [place] MPA RESULT M protein is present. Abnormal No M p rotein is identified. [facility] Comment on above: Order Comment: Speci men Type: BLOOD SPECIMENOrdering Facility: [facility] Address: [address] [place] [address] Performed By: #### I FESC ####[facility] LABCLIA [id number] [address] STAFF REVIEW (MPA) Reviewed by Alba Shelton MD [facility] Comment on above: Order Comment: Speci men Type: BLOOD SPECIMENOrdering Facility: [facility] Address: [address] [place] [address] Performed By: #### I FES ####[facility] LABIA [id number] [place] [address] [place] IMMUNOGLOBULINS,IGG,IGA,IGMo n 05-27-2024 IgA [Mass/Vol] 94 mg/dL Normal 70-400 [facility] Comment on above: Order Comment: Speci men Type: BLOOD SPECIMENOrdering Facility: [facility] Address: [address] [place] [address] Performed By: #### S ERIMM ####[facility] LABCLIA [id number] [place] [address] [place] IgG [Mass/Vol] 1157 mg/dL Normal 700-1600 [facility] Comment on above: Order Comment: Speci men Type: BLOOD SPECIMENOrdering Facility: [facility] Address: [address] [place] [address] Performed By: #### S ERIMM ####[facility] LABIA [id number] [place] [address] [place] IgM [Mass/Vol] 18 mg/dL Low 40-230 [facility] Comment on above: Order Comment: Speci men Type: BLOOD SPECIMENOrdering Facility: [facility] Address: [address] [place] [address] Performed By: #### S ERIMM ####[facility] LABCLIA [id number] [place] [address] [place] KAPPA/DANIELS,FREE,SERon 2023 Immunoglobulin light chains.kappa.free (S) [Mass/Vol] 40.4 mg/L High 3.3-19.4 [facility] Comment on above: Order Comment: Speci men Type: BLOOD SPECIMENOrdering Facility: [facility] Address: [address] [place] [address] Result Comment: Rare ly, increased serum free light chains levels may not be detected or accurately quantified due to prozone phenomenon or in high viscosity samples using this immunoturbidimetric assay. Correlation with other laboratory results and clinical findings is recommended. The [place] Free Light Chain was performed using the Binding Site Optilite immunoturbidimetric method. Result obtained with different assay methods or kits cannot be used interchangeably. Performed By: #### K LFRS ####[facility] LABCLIA [id number] [place] [address] [place] Immunoglobulin light chains.kappa/Immun oglobulin light chains.lambda (S) [Mass ratio] 1.62 Normal 0.26-1.65 [facility] Comment on above: Order Comment: Speci men Type: BLOOD SPECIMENOrdering Facility: [facility] Address: [address] [place] [address] Performed By: #### K LFRS ####[facility] LABCLIA [id number] [place] [address] [place] Immunoglobulin light chains.lambda.free [Mass/Vol] 25.0 mg/L Normal 5.7-26.3 [facility] Comment on above: Order Comment: Speci men Type: BLOOD SPECIMENOrdering Facility: [facility] Address: [address] [place] [address] Result Comment: Rare ly, increased serum free [...] used interchangeably. Performed By: #### K LFRS ####[facility] [id number] [place] [address] [place] PROTEIN ELECTROPHORESIS SERU M (P)on 05-27-2024 Albumin [Mass/Vol] 3.79 g/dL Normal 3.43-5.41 [facility] Comment on above: Order Comment: Speci men Type: BLOOD SPECIMENOrdering Facility: [facility] Address: [address] [place] [address] Performed By: #### L [id number] ####[facility] [id number] [place] [address] [place] Alpha 1 globulin Elph [Mass/Vol] 0.23 g/dL Normal 0.18-0.43 [facility] Comment on above: Order Comment: Speci men Type: BLOOD SPECIMENOrdering Facility: [facility] Address: [address] [place] [address] Performed By: #### L [id number] ####[facility] [id number] [place] [address] [place] Alpha 2 globulin Elph [Mass/Vol] 0.59 g/dL Normal 0.42-0.98 [facility] Comment on above: Order Comment: Speci men Type: BLOOD SPECIMENOrdering Facility: [facility] Address: [address] [place] [address] Performed By: #### L [id number] ####[facility] [id number] [place] [address] [place] Beta globulin Elph [Mass/Vol] 0.61 g/dL Normal 0.61-1.17 [facility] Comment on above: Order Comment: Speci men Type: BLOOD SPECIMENOrdering Facility: [facility] Address: [address] [place] [address] Performed By: #### L [id number] ####[facility] LABCLIA [id number] [place] [address] [place] Gamma globulin Elph [Mass/Vol] 0.98 g/dL Normal 0.53-1.51 [facility] Comment on above: Order Comment: Speci men Type: BLOOD SPECIMENOrdering Facility: [facility] Address: [address] [place] [address] Performed By: #### L [id number] ####[facility] LABIA [id number] [address] [place] INTERPRETATION COMMENT FOR PROTEIN ELECTROPHORESIS See separate immunofixation report for characterization of monoclonal gammopathy. Normal [facility] Comment on above: Order Comment: Speci men Type: BLOOD SPECIMENOrdering Facility: [facility] Address: [address] [place] [address] Performed By: #### L [id number] ####[facility] LABIA [id number] [place] [address] [place] M-PROTEIN LOCATION Gamma Fraction 1 Normal [facility] Comment on above: Order Comment: Speci men Type: BLOOD SPECIMENOrdering Facility: [facility] Address: [address] [place] [address] Performed By: #### L [id number] ####[facility] LABIA [id number] [place] [address] [place] Protein Fractions [Interp] An M protein is identified on protein electrophoresis. Abnormal No definitive M protein is identified on protein electrophores is. [facility] Comment on above: Order Comment: Speci men Type: BLOOD SPECIMENOrdering Facility: [facility] Address: [address] [place] [address] Performed By: #### L [id number] ####[facility] LABIA [id number] [place] [address] [place] Protein.monoclonal Elph [Mass/Vol] 0.67 g/dL High <=0.00 [facility] Comment on above: Order Comment: Speci men Type: BLOOD SPECIMENOrdering Facility: [facility] Address: [address] [place] [address] Performed By: #### L [id number] ####[facility] LABCLIA [id number] [address] OF [facility] SPE STAFF REVIEW Reviewed by Alba Shelton MD [facility] Comment on above: Order Comment: Speci men Type: BLOOD SPECIMENOrdering Facility: [facility] Address: [address] [place] [address] Performed By: #### L [id number] ####[facility] LABCLIA [id number] [address] [place] Prot SerPl-mCncon 05-27-2024 Protein [Mass/Vol] 6.2 g/dL Low 6.3-8.0 [facility] Comment on above: Order Comment: Speci men Type: BLOOD SPECIMENOrdering Facility: [facility] Address: [address] [place] [address] Performed By: #### 2 885-2 ####[facility] LABCLIA [id number] [address] [place] 05-20-2024 CNPN Telephone (HEMTSA) ZACH MANUEL ([id number]) 1945 M Date Time Provider Department 05/20/24 LATRICE HILARIO [...] Fully Assessed Reason for Visit: Lab Orders [1048] Primary Visit Diagnosis:Multiple myeloma not having achieved remission (HCC) [C90.00] Order(s):COMPREHENSIVE METABOLIC PANEL [SQCMP] Order #: [id number] FUTURE COMPLETE BLOOD COUNT AND DIFFERENTIAL [SQCBCDIF] Order #: [id number] FUTURE MONOCLONAL PROTEIN, SERUM (BLOOD) [SQSERMPA] Order #: [id number] FUTURE PROTEIN ELECTROPHORESIS SERUM W/INTERP [SQSEPG] Order #: [id number] FUTURE Prescriptions as of 05/20/2024 - lenalidomide [...] Type 2 diabetes mellitus without complication (*10/20/2015 longterm current use of systemic steroids [Z79*10/20/2015 Left inguinal hernia [K40.90] 10/20/2015 Former smoker [Z87.891] 10/20/2015 Elevated prostate specific antigen (PSA) [R97.2*03/19/2020 Stage 3 chronic kidney disease, unspecified whe*03/06/2023 Encounter Status:Closed by IRMA TALAVERA on 05/20/24 [facility] 02-29-2024 CNPN Telephone (HEMASA) ZACH MANUEL ([id number]) 1945 M Date Time Provider Department 02/29/24 [...] Fully Assessed Reason for Visit: Care Coordination [3499] Cmt: Labs Prescriptions as of 02/29/2024 - [...] Type 2 diabetes mellitus without complication (*10/20/2015 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 [Z79*10/20/2015 Left inguinal hernia [K40.90] 10/20/2015 Former smoker [Z87.891] 10/20/2015 Elevated prostate specific antigen (PSA) [R97.2*03/19/2020 Stage 3 chronic kidney disease, unspecified whe*03/06/2023 Encounter Status:Closed by JUAN FERGUSON on 02/29/24 Normal [facility] CBC W Auto Differential pane l (Bld)on 02-26-2024 Basophils (Bld) [#/Vol] 0.09 10*3/uL Normal <0.11 [facility] Comment on above: Order Comment: Speci men Type: BLOOD SPECIMENOrdering Facility: [facility] Address: [address] [place] [address] Performed By: #### 5 7021-8 ####[facility] LABCLIA [id number] [place] [address] Basophils/100 WBC (Bld) 1.4 % Normal [facility] Comment on above: Order Comment: Speci men Type: BLOOD SPECIMENOrdering Facility: [facility] Address: [address] [place] [address] Performed By: #### 5 7021-8 ####[facility] LABCLIA [id number] [place] [address] Differential cell count method Nom (Bld) Auto Normal [facility] Comment on above: Order Comment: Speci men Type: BLOOD SPECIMENOrdering Facility: [facility] Address: [address] [place] [address] Performed By: #### 5 7021-8 ####[facility] LABCLIA [id number] [place] [address] Eosinophils (Bld) [#/Vol] 0.44 10*3/uL Normal <0.46 [facility] Comment on above: Order Comment: Speci men Type: BLOOD SPECIMENOrdering Facility: [facility] Address: [address] [place] [address] Performed By: #### 5 7021-8 ####[facility] LABCLIA [id number] [place] [address] Eosinophils/100 WBC (Bld) 6.6 % Normal [facility] Comment on above: Order Comment: Speci men Type: BLOOD SPECIMENOrdering Facility: [facility] Address: [address] [place] [address] Performed By: #### 5 7021-8 ####[facility] LABCLIA [id number] [place] [address] Erythrocyte distribution width (RBC) [Ratio] 15.4 % High 11.5-15.0 [facility] Comment on above: Order Comment: Speci men Type: BLOOD SPECIMENOrdering Facility: [facility] Address: [address] [place] [address] Performed By: #### 5 7021-8 ####[facility] LABCLIA [id number] [place] [address] Hematocrit (Bld) [Volume fraction] 38.0 % Low 39.0-51.0 [facility] Comment on above: Order Comment: Speci men Type: BLOOD SPECIMENOrdering Facility: [facility] Address: [address] [place] [address] Performed By: #### 5 7021-8 ####[facility] LABCLIA [id number] [place] [address] Hemoglobin (Bld) [Mass/Vol] 12.9 g/dL Low 13.0-17.0 [facility] Comment on above: Order Comment: Speci men Type: BLOOD SPECIMENOrdering Facility: [facility] Address: [address] [place] [address] Performed By: #### 5 7021-8 ####[facility] LABCLIA [id number] [place] [address] Immature granulocytes (Bld) [#/Vol] 0.04 10*3/uL Normal <0.10 [facility] Comment on above: Order Comment: Speci men Type: BLOOD SPECIMENOrdering Facility: [facility] Address: [address] [place] [address] Performed By: #### 5 7021-8 ####[facility] LABCLIA [id number] [place] [address] Immature granulocytes/100 WBC (Bld) 0.6 % Normal [facility] Comment on above: Order Comment: Speci men Type: BLOOD SPECIMENOrdering Facility: [facility] Address: [address] [place] [address] Performed By: #### 5 7021-8 ####[facility] LABCLIA [id number] [place] [address] Lymphocytes (Bld) [#/Vol] 1.24 10*3/uL Normal 1.00-4.00 [facility] Comment on above: Order Comment: Speci men Type: BLOOD SPECIMENOrdering Facility: [facility] Address: [address] [place] [address] Performed By: #### 5 7021-8 ####[facility] LABIA [id number] [place] [address] Lymphocytes/100 WBC (Bld) 18.6 % Normal [facility] Comment on above: Order Comment: Speci men Type: BLOOD SPECIMENOrdering Facility: [facility] Address: [address] [place] [address] Performed By: #### 5 7021-8 ####[facility] LABCLIA [id number] [place] [address] MCH (RBC) [Entitic mass] 35.5 pg High 26.0-34.0 [facility] Comment on above: Order Comment: Speci men Type: BLOOD SPECIMENOrdering Facility: [facility] Address: [address] [place] [address] Performed By: #### 5 7021-8 ####[facility] LABIA [id number] [place] [address] MCHC (RBC) [Mass/Vol] 33.9 g/dL Normal 30.5-36.0 [facility] Comment on above: Order Comment: Speci men Type: BLOOD SPECIMENOrdering Facility: [facility] Address: [address] [place] [address] Performed By: #### 5 7021-8 ####[facility] LABCLIA [id number] [place] [address] MCV (RBC) [Entitic vol] 104.7 fL High 80.0-100.0 [facility] Comment on above: Order Comment: Speci men Type: BLOOD SPECIMENOrdering Facility: [facility] Address: [address] [place] [address] Performed By: #### 5 7021-8 ####[facility] LABCLIA [id number] [place] [address] Monocytes (Bld) [#/Vol] 0.88 10*3/uL High <0.87 [facility] Comment on above: Order Comment: Speci men Type: BLOOD SPECIMENOrdering Facility: [facility] Address: [address] [place] [address] Performed By: #### 5 7021-8 ####[facility] LABCLIA [id number] [place] [address] Monocytes/100 WBC (Bld) 13.2 % Normal [facility] Comment on above: Order Comment: Speci men Type: BLOOD SPECIMENOrdering Facility: [facility] Address: [address] [place] [address] Performed By: #### 5 7021-8 ####[facility] LABCLIA [id number] [place] [address] Neutrophils (Bld) [#/Vol] 3.96 10*3/uL Normal 1.45-7.50 [facility] Comment on above: Order Comment: Speci men Type: BLOOD SPECIMENOrdering Facility: [facility] Address: [address] [place] [address] Performed By: #### 5 7021-8 ####[facility] LABCLIA [id number] [place] [address] Neutrophils/100 WBC (Bld) 59.6 % Normal [facility] Comment on above: Order Comment: Speci men Type: BLOOD SPECIMENOrdering Facility: [facility] Address: [address] [place] [address] Performed By: #### 5 7021-8 ####[facility] LABCLIA [id number] [place] [address] Nucleated RBC (Bld) [#/Vol] 10*3/uL Normal <0.01 [facility] Comment on above: Order Comment: Speci men Type: BLOOD SPECIMENOrdering Facility: [facility] Address: [address] [place] [address] Performed By: #### 5 7021-8 ####[facility] LABCLIA [id number] [place] [address] Nucleated RBC/100 WBC (Bld) [Ratio] 0.0 /100 WBC Normal [facility] Comment on above: Order Comment: Speci men Type: BLOOD SPECIMENOrdering Facility: [facility] Address: [address] [place] [address] Performed By: #### 5 7021-8 ####[facility] LABIA [id number] [place] [address] Platelet mean volume (Bld) [Entitic vol] 10.6 fL Normal 9.0-12.7 [facility] Comment on above: Order Comment: Speci men Type: BLOOD SPECIMENOrdering Facility: [facility] Address: [address] [place] [address] Performed By: #### 5 7021-8 ####[facility] LABCLIA [id number] [place] [address] Platelets (Bld) [#/Vol] 203 10*3/uL Normal 150-400 [facility] Comment on above: Order Comment: Speci men Type: BLOOD SPECIMENOrdering Facility: [facility] Address: [address] [place] [address] Performed By: #### 5 7021-8 ####[facility] LABCLIA [id number] [place] [address] RBC (Bld) [#/Vol] 3.63 10*6/uL Low 4.20-6.00 [facility] Comment on above: Order Comment: Speci men Type: BLOOD SPECIMENOrdering Facility: [facility] Address: [address] [place] [address] Performed By: #### 5 7021-8 ####[facility] LABIA [id number] [place] [address] WBC (Bld) [#/Vol] 6.65 10*3/uL Normal 3.70-11.00 [facility] Comment on above: Order Comment: Speci men Type: BLOOD SPECIMENOrdering Facility: [facility] Address: [address] [place] [address] Performed By: #### 5 7021-8 ####[facility] LABIA [id number] [place] [address] CNOVSPon 02-26-2024 CNOVSP Visit (SP) Office (HEMASA) YULIYAMarianaAZCH ([id number]) 1945 M Date Time Provider Department 02/26/24 1:15 PM UIREL GUNTER HEMCHRISTINA During your visit today, we recorded the [...] mellitus (HCC) Hyperlipidemia 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 Normal [facility] metabolic 2000 panelon 02-26-2024 Albumin [Mass/Vol] 3.9 g/dL Normal 3.9-4.9 [facility] Comment on above: Order Comment: Speci men Type: BLOOD SPECIMENOrdering Facility: [facility] Address: [address] [place] [address] Performed By: #### 2 4323-8 ####[facility] LABCLIA [id number] [place] [address] ALP [Catalytic activity/Vol] 78 U/L Normal 38-113 [facility] Comment on above: Order Comment: Speci men Type: BLOOD SPECIMENOrdering Facility: [facility] Address: [address] [place] [address] Performed By: #### 2 4323-8 ####[facility] LABCLIA [id number] [place] [address] ALT [Catalytic activity/Vol] 8 U/L Low 10-54 [facility] Comment on above: Order Comment: Speci men Type: BLOOD SPECIMENOrdering Facility: [facility] Address: [address] [place] [address] Performed By: #### 2 4323-8 ####[facility] LABCLIA [id number] [place] [address] Anion gap [Moles/Vol] 6 mmol/L Low 8-15 [facility] Comment on above: Order Comment: Speci men Type: BLOOD SPECIMENOrdering Facility: [facility] Address: [address] [place] [address] Performed By: #### 2 4323-8 ####[facility] LABCLIA [id number] [place] [address] AST [Catalytic activity/Vol] 13 U/L Low 14-40 [facility] Comment on above: Order Comment: Speci men Type: BLOOD SPECIMENOrdering Facility: [facility] Address: [address] [place] [address] Performed By: #### 2 4323-8 ####[facility] LABCLIA [id number] [place] [address] Bilirubin [Mass/Vol] 0.8 mg/dL Normal 0.2-1.3 [facility] Comment on above: Order Comment: Speci men Type: BLOOD SPECIMENOrdering Facility: [facility] Address: [address] [place] [address] Performed By: #### 2 4323-8 ####[facility] LABCLIA [id number] [place] [address] Calcium [Mass/Vol] 8.9 mg/dL Normal 8.5-10.2 [facility] Comment on above: Order Comment: Speci men Type: BLOOD SPECIMENOrdering Facility: [facility] Address: [address] [place] [address] Performed By: #### 2 4323-8 ####[facility] LABCLIA [id number] [place] [address] Chloride [Moles/Vol] 103 mmol/L Normal 98-107 [facility] Comment on above: Order Comment: Speci men Type: BLOOD SPECIMENOrdering Facility: [facility] Address: [address] [place] [address] Performed By: #### 2 4323-8 ####[facility] LABCLIA [id number] [place] [address] CO2 [Moles/Vol] 30 mmol/L Normal 22-30 [facility] Comment on above: Order Comment: Speci men Type: BLOOD SPECIMENOrdering Facility: [facility] Address: [address] [place] [address] Performed By: #### 2 4323-8 ####[facility] LABCLIA [id number] [place] [address] Creatinine [Mass/Vol] 1.70 mg/dL High 0.73-1.22 [facility] Comment on above: Order Comment: Speci men Type: BLOOD SPECIMENOrdering Facility: [facility] Address: [address] [place] [address] Performed By: #### 2 4323-8 ####[facility] LABCLIA [id number] [place] [address] Creatinine and Glomerular filtration rate.predicted panel (S/P/Bld) 41 mL/min/1.73m??? Low >=60 [facility] Comment on above: Order Comment: Michelle bueno Type: BLOOD SPECIMENOrdering Facility: [facility] Address: [address] [place] [address] Result Comment: Chanda mated Glomerular Filtration Rate [...] actual GFR. Performed By: #### 2 4323-8 ####[facility] LABCLIA [id number] [place] [address] Glucose [Mass/Vol] 175 mg/dL High 74-99 [facility] Comment on above: Order Comment: Michelle bueno Type: BLOOD SPECIMENOrdering Facility: [facility] Address: [address] [place] [address] Result Comment: The [place] Diabetes Association (ADA) provides guidance for cutoff [...] Standards of Medical Care in Diabetes 2016, [place] [employer] Association. Diabetes Care. 2016.39(Suppl 1). Performed By: #### 2 4323-8 ####[facility] LABCLIA [id number] [place] [address] Potassium [Moles/Vol] 4.8 mmol/L Normal 3.7-5.1 [facility] Comment on above: Order Comment: Speci men Type: BLOOD SPECIMENOrdering Facility: [facility] Address: [address] [place] [address] Performed By: #### 2 4323-8 ####[facility] LABCLIA [id number] [place] [address] Protein [Mass/Vol] 6.7 g/dL Normal 6.3-8.0 [facility] Comment on above: Order Comment: Speci men Type: BLOOD SPECIMENOrdering Facility: [facility] Address: [address] [place] [address] Performed By: #### 2 4323-8 ####[facility] LABIA [id number] [place] [address] Sodium [Moles/Vol] 139 mmol/L Normal 136-144 [facility] Comment on above: Order Comment: Speci men Type: BLOOD SPECIMENOrdering Facility: [facility] Address: [address] [place] [address] Performed By: #### 2 4323-8 ####[facility] LABCLIA [id number] [place] [address] Urea nitrogen [Mass/Vol] 23 mg/dL Normal 9-24 [facility] Comment on above: Order Comment: Speci men Type: BLOOD SPECIMENOrdering Facility: [facility] Address: [address] [place] [address] Performed By: #### 2 4323-8 ####[facility] LABIA [id number] [place] [address] IMMUNOFIXATION SCREEN, SERUM on 02-26-2024 INTERPRETATION (MPA) Atypical restricted bands are present in the IgG and kappa regions. Consistent with IgG kappa monoclonal gammopathy. Normal [facility] Comment on above: Order Comment: Speci men Type: BLOOD SPECIMENOrdering Facility: [facility] Address: [address] [place] [address] Performed By: #### I FESC ####[facility] LABCLIA [id number] [address] MPA RESULT M protein is present. Abnormal No M p rotein is identified. [facility] Comment on above: Order Comment: Speci men Type: BLOOD SPECIMENOrdering Facility: [facility] Address: [address] [place] [address] Performed By: #### I FESC ####[facility] LABIA [id number] [address] OF [place] STAFF REVIEW (MPA) Reviewed by Dr. Marcel White MD [facility] Comment on above: Order Comment: Speci men Type: BLOOD SPECIMENOrdering Facility: [facility] Address: [address] [place] [address] Performed By: #### I FESC ####[facility] LABIA [id number] [place] [address] [place] IMMUNOGLOBULINS,IGG,IGA,IGMo n 02-26-2024 IgA [Mass/Vol] 96 mg/dL Normal 70-400 [facility] Comment on above: Order Comment: Speci men Type: BLOOD SPECIMENOrdering Facility: [facility] Address: [address] [place] [address] Performed By: #### S ERIMM ####[facility] LABCLIA [id number] [place] [address] [place] IgG [Mass/Vol] 1109 mg/dL Normal 700-1600 [facility] Comment on above: Order Comment: Speci men Type: BLOOD SPECIMENOrdering Facility: [facility] Address: [address] [place] [address] Performed By: #### S ERIMM ####[facility] LABIA [id number] [place] [id number] [address] [place] IgM [Mass/Vol] 17 mg/dL Low 40-230 [facility] Comment on above: Order Comment: Speci men Type: BLOOD SPECIMENOrdering Facility: [facility] Address: [address] [place] [address] Performed By: #### S FRED ####[facility] LABCLIA [id number] [place] [address] [place] KAPPA/DANIELS,FREE,SERon 2023 Immunoglobulin light chains.kappa.free (S) [Mass/Vol] 40.3 mg/L High 3.3-19.4 [facility] Comment on above: Order Comment: Speci men Type: BLOOD SPECIMEN Ordering Facility: [facility] Address: [address] [place] [address] Result Comment: Rare ly, increased serum free light chains levels may not be detected or accurately quantified due to prozone phenomenon or in high viscosity samples using this immunoturbidimetric assay. Correlation with other laboratory results and clinical findings is recommended. The [place] Free Light Chain was performed using the Binding Site Optilite immunoturbidimetric method. Result obtained with different assay methods or kits cannot be used interchangeably. Performed By: #### K LFRS #### [facility] CLIA [id number] [address] [place] [address] [place] Immunoglobulin light chains.kappa/Immun oglobulin light chains.lambda (S) [Mass ratio] 1.57 Normal 0.26-1.65 [facility] Comment on above: Order Comment: Speci men Type: BLOOD SPECIMEN Ordering Facility: [facility] Address: [address] [place] [address] Performed By: #### K LFRS #### [facility] CLIA [id number] [address] [place] [address] [place] Immunoglobulin light chains.lambda.free [Mass/Vol] 25.6 mg/L Normal 5.7-26.3 [facility] Comment on above: Order Comment: Speci men Type: BLOOD SPECIMEN Ordering Facility: [facility] Address: [address] [place] [address] Result Comment: Rare ly, increased serum free [...] interchangeably. Performed By: #### K LFRS #### [facility] CLIA [id number] [address] [place] [address] [place] PROTEIN ELECTROPHORESIS SERU M WITH TOÑITO (P)on 02-26-2024 Albumin [Mass/Vol] 4.08 g/dL Normal 3.43-5.41 [facility] Comment on above: Order Comment: Speci men Type: BLOOD SPECIMENOrdering Facility: [facility] Address: [address] [place] [address] Performed By: #### L [id number] ####[facility] LABCLIA [id number] [place] [address] [place] Alpha 1 globulin Elph [Mass/Vol] 0.25 g/dL Normal 0.18-0.43 [facility] Comment on above: Order Comment: Speci men Type: BLOOD SPECIMENOrdering Facility: [facility] Address: [address] [place] [address] Performed By: #### L [id number] ####[facility] LABCLIA [id number] [place] [address] [place] Alpha 2 globulin Elph [Mass/Vol] 0.67 g/dL Normal 0.42-0.98 [facility] Comment on above: Order Comment: Speci men Type: BLOOD SPECIMENOrdering Facility: [facility] Address: [address] [place] [address] Performed By: #### L [id number] ####[facility] LABCLIA [id number] [place] [address] [place] Beta globulin Elph [Mass/Vol] 0.65 g/dL Normal 0.61-1.17 [facility] Comment on above: Order Comment: Speci men Type: BLOOD SPECIMENOrdering Facility: [facility] Address: [address] [place] [address] Performed By: #### L [id number] ####[facility] LABCLIA [id number] [place] [address] [place] COMMENT (SERUM PROT ELECTRO) Monoclonal Protein analysis (immunofixation) is not indicated. Normal [facility] Comment on above: Order Comment: Speci men Type: BLOOD SPECIMENOrdering Facility: [facility] Address: [address] [place] [address] Performed By: #### L [id number] ####[facility] LABCLIA [id number] [place] [address] [place] Gamma globulin Elph [Mass/Vol] 1.05 g/dL Normal 0.53-1.51 [facility] Comment on above: Order Comment: Speci men Type: BLOOD SPECIMENOrdering Facility: [facility] Address: [address] [place] [address] Performed By: #### L [id number] ####[facility] LABCLIA [id number] [place] [address] [place] INTERPRETATION COMMENT FOR PROTEIN ELECTROPHORESIS See separate immunofixation report for characterization of monoclonal gammopathy. Normal [facility] Comment on above: Order Comment: Speci men Type: BLOOD SPECIMENOrdering Facility: [facility] Address: [address] [place] [address] Performed By: #### L [id number] ####[facility] LABCLIA [id number] [place] [address] [place] M-PROTEIN LOCATION Gamma Fraction 1 Normal [facility] Comment on above: Order Comment: Speci men Type: BLOOD SPECIMENOrdering Facility: [facility] Address: [address] [place] [address] Performed By: #### L [id number] ####[facility] LABIA [id number] [place] [address] [place] Protein Fractions [Interp] An M protein is identified on protein electrophoresis. Abnormal No definitive M protein is identified on protein electrophores is. [facility] Comment on above: Order Comment: Speci men Type: BLOOD SPECIMENOrdering Facility: [facility] Address: [address] [place] [address] Performed By: #### L [id number] ####[facility] LABIA [id number] [place] [address] [place] Protein.monoclonal Elph [Mass/Vol] 0.67 g/dL High <=0.00 [facility] Comment on above: Order Comment: Speci men Type: BLOOD SPECIMENOrdering Facility: [facility] Address: [address] [place] [address] Performed By: #### L [id number] ####[facility] LABIA [id number] [place] [address] [place] SPE STAFF REVIEW Reviewed by Dr. Marcel White MD [facility] Comment on above: Order Comment: Speci men Type: BLOOD SPECIMENOrdering Facility: [facility] Address: [address] [place] [address] Performed By: #### L [id number] ####[facility] LABIA [id number] [place] [address] [place] Prot SerPl-mCncon 02-26-2024 Protein [Mass/Vol] 6.3 g/dL Normal 6.3-8.0 [facility] Comment on above: Order Comment: Speci men Type: BLOOD SPECIMENOrdering Facility: [facility] Address: [address] [place] [address] Performed By: #### 2 885-2 ####[facility] LABCLIA [id number] [place] [id number] [place] Basic metabolic 2000 panelon 08-28-2023 Anion gap [Moles/Vol] 9 mmol/L 9 - 18 mmol/L [facility] Calcium [Mass/Vol] 9.0 mg/dL 8.5 - 10. 2 mg/dL [facility] Chloride [Moles/Vol] 102 mmol/L 97 - 105 mmol/L [facility] CO2 [Moles/Vol] 27 mmol/L 22 - 30 mmol/L [facility] Creatinine [Mass/Vol] 1.52 mg/dL High 0.73 - 1.22 mg/dL [facility] Estimated Glomerular Filtration Rate 47 mL/min/1.73m Low >=60 mL/min/1.73m [facility] Glucose [Mass/Vol] 253 mg/dL High 74 - 99 mg/dL [facility] Potassium [Moles/Vol] 4.5 mmol/L 3.7 - 5.1 mmol/L [facility] Sodium [Moles/Vol] 138 mmol/L 136 - 144 mmol/L [facility] Urea nitrogen [Mass/Vol] 29 mg/dL High 9 - 24 mg/dL [facility] CBC W Auto Differential pane l (Bld)on 08-28-2023 Basophils (Bld) [#/Vol] 0.05 10*3/uL <0.11 k/uL [facility] Basophils/100 WBC (Bld) 0.7 % [facility] Differential cell count method Nom (Bld) Auto [facility] Eosinophils (Bld) [#/Vol] 0.07 10*3/uL <0.46 k/uL [facility] Eosinophils/100 WBC (Bld) 1.0 % [facility] Erythrocyte distribution width (RBC) [Ratio] 14.0 % 11.5 - 15.0 % [facility] Hematocrit (Bld) [Volume fraction] 39.5 % 39.0 - 51.0 % [facility] ic Hemoglobin (Bld) [Mass/Vol] 13.7 g/dL 13.0 - 17.0 g/dL [facility] Immature granulocytes (Bld) [#/Vol] 0.03 10*3/uL <0.10 k/uL [facility] Immature granulocytes/100 WBC (Bld) 0.4 % [facility] Lymphocytes (Bld) [#/Vol] 0.82 10*3/uL Low 1.00 - 4.00 k/uL [facility] Lymphocytes/100 WBC (Bld) 11.7 % [facility] MCH (RBC) [Entitic mass] 34.7 pg High 26.0 - 34.0 pg [facility] MCHC (RBC) [Mass/Vol] 34.7 g/dL 30.5 - 36.0 g/dL [facility] MCV (RBC) [Entitic vol] 100.0 fL 80.0 - 100.0 fL [facility] Monocytes (Bld) [#/Vol] 1.05 10*3/uL High <0.87 k/uL [facility] Monocytes/100 WBC (Bld) 15.0 % [facility] Neutrophils (Bld) [#/Vol] 4.96 10*3/uL 1.45 - 7.50 k/uL [facility] Neutrophils/100 WBC (Bld) 71.2 % [facility] Nucleated RBC (Bld) [#/Vol] <0.01 k/uL [facility] Nucleated RBC/100 WBC (Bld) [Ratio] 0.0 /100 WBC [facility] ic Platelet mean volume (Bld) [Entitic vol] 9.8 fL 9.0 - 12.7 fL [facility] Platelets (Bld) [#/Vol] 207 10*3/uL 150 - 400 k/uL [facility] RBC (Bld) [#/Vol] 3.95 10*6/uL Low 4.20 - 6.0 0 m/uL [facility] WBC (Bld) [#/Vol] 6.98 10*3/uL 3.70 - 11. 00 k/uL [facility] PSA, FREE AND TOTAL RATIOon 08-29-2022 % Free PSA 25.9 % Normal [facility] Comment on above: Result Comment: The [...] men. Performed By: #### P SAFREE #### [facility] [address] [place] [address] Dr. Tigre Gant Prostate specific Ag [Mass/Vol] 4.4 ng/mL Critically high 0.0-4.0 [facility] Comment on above: Result Comment: Renee SIGALAIA methodology. . According to the [place] [employer], Serum PSA should decrease and [...] disease. Performed By: #### P SAFREE #### [facility] [address] [address] [address] Tigre Gant PSA, Free 1.14 ng/mL Normal N/A [facility] Comment on above: Result Comment: Renee melton ECLSHERRIE methodology. Performed By: #### P SAFREE #### [facility] [address] [place] [address] Dr. Tigre Gant PSA, FREE AND TOTAL RATIOon 03-16-2022 % Free PSA 19.1 % Normal [facility] Comment on above: Result Comment: The [...] men. Performed By: #### A 1C #### [facility] [address] [place] [address] Dr. Tigre Gant PSA, Free 1.03 ng/mL Normal N/A [facility] Comment on above: Result Comment: Renee melton ECLIA methodology. Performed By: #### A 1C #### [facility] [address] [place] [address] Dr. Tigre Gant Prostate specific Ag [Mass/Vol] 5.4 ng/mL Critically high 0.0-4.0 [facility] Comment on above: Result Comment: Roch rachel ECLIA methodology. . According to the [employer], Serum PSA should decrease and [...] disease. Performed By: #### A 1C #### [facility] [address] [place] [address] Dr. Tigre Gant CBC AUTO DIFFon 03-14-2022 BASO # 0.1 103/ul Normal 0.0-0.1 [facility] Comment on above: Performed By: #### C BC #### [facility] [address] [place] [address] Dr. Tigre Gant Basophils/100 WBC (Bld) 2.6 % Critically high 0.2-2.0 [facility] Comment on above: Performed By: #### C BC #### [facility] [address] [place] [address] Dr. Tigre Gant EO # 0.4 103/ul Normal 0.0-0.7 [facility] Comment on above: Performed By: #### C BC #### [facility] [address] [place] [address] Dr. Tigre Gant Eosinophils/100 WBC (Bld) 7.7 % Critically high 0.9-7.0 [facility] Comment on above: Performed By: #### C BC #### [facility] [address] [place] [address] Dr. Tigre Gant Erythrocyte distribution width (RBC) [Ratio] 14.6 % Normal 11.0-15.0 [facility] Comment on above: Performed By: #### C BC #### [facility] [address] [place] [address] Dr. Tigre Gant Hematocrit (Bld) [Volume fraction] 39.0 % Critically low 42.0-54.0 [facility] Comment on above: Performed By: #### C BC #### [facility] [address] [place] [address] Dr. Tigre Gant Hemoglobin (Bld) [Mass/Vol] 12.9 g/dL Critically low 14.0-18.0 [facility] Comment on above: Performed By: #### C BC #### [facility] [address] [place] [address] Dr. Tigre Gant IG # 0.03 10e3/ul Normal 0.00-0.03 [facility] Comment on above: Performed By: #### C BC #### [facility] [address] [place] [address] Dr. Tigre Gant IG % 0.6 % Critically high 0.0-0.5 [facility] Comment on above: Performed By: #### C BC #### [facility] [address] [place] [address] Dr. Tigre Gant LYMPH # 1.0 103/ul Critically low 1.2-3.8 [facility] Comment on above: Performed By: #### C BC #### [facility] [address] [place] [address] Dr. Tigre Gant Lymphocytes/100 WBC (Bld) 19.9 % Critically low 20.5-60.0 [facility] Comment on above: Performed By: #### C BC #### [facility] [address] [place] [address] Dr. Tigre Gant MANUAL DIFF REQ NO Normal [facility] Comment on above: Performed By: #### C BC #### [facility] [address] [place] [address] Dr. Tigre Gant MCH (RBC) [Entitic mass] 33.7 pg Normal 25.9-34.0 [facility] Comment on above: Performed By: #### C BC #### [facility] [address] [place] [address] Dr. Tigre Gant MCHC (RBC) [Mass/Vol] 33.1 g/dL Normal 29.9-35.2 [facility] Comment on above: Performed By: #### C BC #### [facility] [address] [place] [address] Dr. Tiger Gant MCV (RBC) [Entitic vol] 101.8 fL Critically high 80.0-94.0 [facility] Comment on above: Performed By: #### C BC #### [facility] [address] [place] [address] Dr. Tigre Gant MONO # 0.7 103/ul Normal 0.3-0.8 [facility] Comment on above: Performed By: #### C BC #### [facility] [address] [place] [address] Dr. Tigre Gant Monocytes/100 WBC (Bld) 13.6 % Critically high 1.7-12.0 [facility] Comment on above: Performed By: #### C BC #### [facility] [address] [place] [address] Dr. Tigre Gant NEUT # 2.7 103/ul Normal 1.4-6.5 [facility] Comment on above: Performed By: #### C BC #### [facility] [address] [place] [address] Dr. Tigre Gant Neutrophils/100 WBC (Bld) 55.6 % Normal 43.0-75.0 [facility] Comment on above: Performed By: #### C BC #### [facility] [address] [place] [address] Dr. Tigre Gant Platelet mean volume (Bld) [Entitic vol] 10.7 fL Normal 9.5-13.5 [facility] Comment on above: Performed By: #### C BC #### [facility] [address] [place] [address] Dr. Tigre Gant PLT 209 103/ul Normal 150-450 [facility] Comment on above: Performed By: #### C BC #### [facility] [address] [place] [address] Dr. Tigre Gant RBC 3.83 106/ul Critically low 4.70-6.10 [facility] Comment on above: Performed By: #### C BC #### [facility] [address] [place] [address] Dr. Tigre Gant WBC 4.9 103/ul Normal 4.0-11.0 [facility] Comment on above: Performed By: #### C BC #### [facility] [address] [place] [address] Dr. Tigre Gant FREE T3on 03-14-2022 FREE T3 2.60 pg/mlL Normal 2.18-3.98 [facility] Comment on above: Performed By: #### A 1C #### [facility] [address] [place] [address] Dr. Tigre Gant GLYCOHEMOGLOBIN A1Con 2021 ADA RECOMMENDATION SEE BELOW Normal [facility] [place] Comment on above: Result Comment: ADA RECOMMENDED LIMIT 4.0 - 6.0 ADA THERAPEUTIC TARGET < 7.0 ACTION SUGGESTED > 7.0 Performed By: #### A 1C #### [facility] [address] [place] [address] Dr. Tigre Gant Glucose [Mass/Vol] 189 mg/dL Normal [facility] [place] Comment on above: Performed By: #### A 1C #### [facility] [address] [place] [address] Dr. Tigre Gant HbA1c (Bld) [Mass fraction] 8.2 % Critically high 4.5-6.2 [facility] Comment on above: Performed By: #### A 1C #### [facility] [address] [place] [address] Dr. Tigre Gant LIPID PROFILEon 03-14-2022 CHOL-HDL RATIO NORM SEE BELOW Normal [facility] Comment on above: Result Comment: 3.3 - 4.4 LOW RISK 4.4 - 7.1 AVERAGE RISK 7.1 - 11.0 MODERATE RISK >11.0 HIGH RISK Performed By: #### C MP, TSH, LIPID, FT3, T4 #### [facility] [address] [place] [address] Dr. iTgre Gant Cholesterol [Mass/Vol] 157 mg/dL Normal <=200 [facility] Comment on above: Performed By: #### C MP, TSH, LIPID, FT3, T4 #### [facility] [address] [place] [address] Dr. Tigre Gant Cholesterol in HDL [Mass/Vol] 62 mg/dL Critically high 40-60 [facility] Comment on above: Performed By: #### C MP, TSH, LIPID, FT3, T4 #### [facility] [address] [place] [address] Dr. Tigre Gant Cholesterol in LDL [Mass/Vol] 62.8 mg/dL Normal [facility] Comment on above: Performed By: #### C MP, TSH, LIPID, FT3, T4 #### [facility] [address] [place] [address] Dr. Tigre Gant Cholesterol.total/ Cholesterol in HDL [Mass ratio] 2.5 {ratio} Normal [facility] Comment on above: Performed By: #### C MP, TSH, LIPID, FT3, T4 #### [facility] [address] [place] [address] Dr. Tigre Gant HDL NORMAL > or = 60 mg/dl - LO W CARDIOVASCULAR RISK <40 mg/dl - HIGH CARDIOVASCULAR RISK Normal [facility] Comment on above: Performed By: #### C MP, TSH, LIPID, FT3, T4 #### [facility] [address] [place] [address] Dr. Tigre Gant LDL CALC NORMAL SEE BELOW Normal [facility] Comment on above: Result Comment: <100 mg/dl OPTIMAL 100 - 129 mg/dl NEAR OR ABOVE OPTIMAL 130 - 159 mg/dl BORDERLINE HIGH 160 - 189 mg/dl HIGH >190 mg/dl VERY HIGH Performed By: #### C MP, TSH, LIPID, FT3, T4 #### [facility] [address] [place] [address] Dr. Tigre Gant Triglyceride [Mass/Vol] 161 mg/dL Critically high <=150 [facility] Comment on above: Performed By: #### C MP, TSH, LIPID, FT3, T4 #### [facility] [address] [address] [address] Tigre Gant VLDL CALC 32.2 mg/dL Normal [facility] Comment on above: Performed By: #### C MP, TSH, LIPID, FT3, T4 #### [facility] [address] [address] [address] Tigre Gant PROF 14(COMP METB)on 022 Albumin [Mass/Vol] 3.5 g/dL Normal 3.4-5.0 [facility] Comment on above: Performed By: #### C MP, TSH, LIPID, FT3, T4 #### [facility] [address] [place] [address] Dr. Tigre Gant Albumin/Globulin [Mass ratio] 1.1 {ratio} Normal [facility] Comment on above: Performed By: #### C MP, TSH, LIPID, FT3, T4 #### [facility] [address] [address] [address] Tigre Gant ALP [Catalytic activity/Vol] 67 U/L Normal 46-116 [facility] Comment on above: Performed By: #### C MP, TSH, LIPID, FT3, T4 #### [facility] [address] [address] [address] Tigre Gant ALT [Catalytic activity/Vol] 17 U/L Normal 16-63 [facility] Comment on above: Performed By: #### C MP, TSH, LIPID, FT3, T4 #### [facility] [address] [address] [address] Tigre Gant Anion gap [Moles/Vol] 14.6 mmol/L Normal [facility] Comment on above: Performed By: #### C MP, TSH, LIPID, FT3, T4 #### [facility] [address] [address] [address] Tigre Gant AST [Catalytic activity/Vol] 16 U/L Normal 15-37 [facility] Comment on above: Performed By: #### C MP, TSH, LIPID, FT3, T4 #### [facility] [address] [place] [address] Dr. Tigre Gant Bilirubin [Mass/Vol] 1.2 mg/dL Critically high 0.2-1.0 [facility] Comment on above: Performed By: #### C MP, TSH, LIPID, FT3, T4 #### [facility] [address] [address] [address] Tigre Gant Calcium [Mass/Vol] 7.8 mg/dL Critically low 8.5-10.1 Th e [facility] Comment on above: Performed By: #### C MP, TSH, LIPID, FT3, T4 #### [facility] [address] [place] [address] Dr. Tigre Gant Chloride [Moles/Vol] 106 mmol/L Normal 98-107 [facility] Comment on above: Performed By: #### C MP, TSH, LIPID, FT3, T4 #### [facility] [address] [place] [address] Dr. Tigre Gant CO2 [Moles/Vol] 26.5 mmol/L Normal 21.0-32.0 [facility] Comment on above: Performed By: #### C MP, TSH, LIPID, FT3, T4 #### [facility] [address] [place] [address] Dr. Tigre Gant Creatinine [Mass/Vol] 1.48 mg/dL Critically high 0.70-1.30 [facility] Comment on above: Performed By: #### C MP, TSH, LIPID, FT3, T4 #### [facility] [address] [place] [address] Dr. Tigre Gant EGFR-AF EMIRATI 56 mL/min/1.73m2 Critically low >=60 [facility] Comment on above: Performed By: #### C MP, TSH, LIPID, FT3, T4 #### [facility] [address] [place] [address] Dr. Tigre Gant EGFR-NON AF EMIRATI 46 mL/min/1.73m2 Critically low >=60 [facility] Comment on above: Performed By: #### C MP, TSH, LIPID, FT3, T4 #### [facility] [address] [place] [address] Dr. Tigre Gant Globulin (S) [Mass/Vol] 3.3 g/dL Normal [facility] Comment on above: Performed By: #### C MP, TSH, LIPID, FT3, T4 #### [facility] [address] [place] [address] Dr. Tigre Gant Glucose [Mass/Vol] 99 mg/dL Normal 74-106 [facility] [place] Comment on above: Performed By: #### C MP, TSH, LIPID, FT3, T4 #### [facility] [address] [place] [address] Dr. Tigre Gant Potassium [Moles/Vol] 4.1 mmol/L Normal 3.5-5.1 [facility] Comment on above: Performed By: #### C MP, TSH, LIPID, FT3, T4 #### [facility] [address] [place] [address] Dr. Tigre Gant Protein [Mass/Vol] 6.8 g/dL Normal 6.4-8.2 [facility] [place] Comment on above: Performed By: #### C MP, TSH, LIPID, FT3, T4 #### [facility] [address] [place] [address] Dr. Tigre Gant Sodium [Moles/Vol] 143 mmol/L Normal 136-145 [facility] [place] Comment on above: Performed By: #### C MP, TSH, LIPID, FT3, T4 #### [facility] [address] [place] [address] Dr. Tigre Gant Urea nitrogen [Mass/Vol] 17.0 mg/dL Normal 7.0-18.0 [facility] Comment on above: Performed By: #### C MP, TSH, LIPID, FT3, T4 #### [facility] [address] [place] [address] Dr. Tigre Gant Urea nitrogen/Creatinin e [Mass ratio] 11.5 mg/mg Normal [facility] Comment on above: Performed By: #### C MP, TSH, LIPID, FT3, T4 #### [facility] [address] [address] [address] Tigre Gant T4on 03-14-2022 T4 [Mass/Vol] 6.30 ug/dL Normal 4.50-12.10 [facility] Comment on above: Performed By: #### C MP, TSH, LIPID, FT3, T4 #### [facility] [id number] Tigre Gant TSHon 03-14-2022 TSH 3.904 uIU/mL Critically high 0.358-3.740 [facility] [place] Comment on above: Performed By: #### C MP, TSH, LIPID, FT3, T4 #### [facility] [address] [address] [address] Tigre Gant Ambulatory Visit Summaryon 0 12-26-2021 Ambulatory Visit Summary ZACH MANUEL :1945 Visit Date:12/26/2021 Ambulatory Visit Instructions Your Diagnosis BPH with urinary obstruction Elevated PSA Family history of prostate cancer Tests Performed Urnls Dip Stick Auto w/o Microscopy POC 08758 Your Care Team Attending Physician - JOSHUA MONTELONGO, Roxana Rodriguez Primary Care Physician - Hanna Mathias MD [...] Where: [facility] [address] [place] [address]- [phone] Medications What How Much When Instructions Unchanged [...] Urnls Dip Stick Auto w/o Microscopy POC 44702 (12/26/2021) Bilirubin Urine Dipstick - Negative Blood Urine Dipstick - Negative Glucose Urine Dipstick - Negative Ketones Urine Dipstick - Negative Leukocytes Urine Dipstick - Negative Nitrite Urine Dipstick - Negative Protein Urine Dipstick - Negative Specific [place] Urine Dipstick - 1.025 Urine Appearance Urine [...] including vitamins, herbs, eye drops, creams, and trbs-dhp-wplkvpq medicines. ? Any problems you or family members have had with anesthetic medicines. ? Any blood disorders you have. ? Any surgeries you menjivar (more content not included)... Normal [facility] Patient Educationon 12-27-19 Patient Education Urology Transurethral [...] including vitamins, herbs, eye drops, creams, and gvpt-zcg-jdfsjyk medicines. ? Any problems you or family [...] tells you to take them. ? Taking cnpk-cdy-rqrkjys medicines, vitamins, herbs, and supplements. Eating and [...] be jojo (more content not included)... 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 3. Family history of prostate cancer (Z80.42: Family history of malignant neoplasm of prostate) father Follow-up With When Contact Information JOSHUA MONTELONGO, Roxana Rodriguez, URL [facility] [address] [place] [address]- [phone] Additional Instructions: Patient Education Transurethral Resection of the Prostate IErica, personally scribed for Dr. Lewis on 12/26/2021 14:15:39. . Documentation recorded by the fabiolaibErica melton, accurately reflects the services(s) I performed and [...] [id number] v (more content not included)... Normal [facility] Comment on above: Result Comment: Elec tronically Signed By: Roxana LEWIS MD\.br\Date and Time Signed: 12/26/21 14:16 EDT\.br\Electronically Co-Signed By: Erica Moses MA\.br\Date and Time Co-Signed: 12/26/21 14:16 EDT Lab Reportson 12-21-2021 Lab Reports [id number] 0CD:127 Normal [facility] PSA, FREE AND TOTAL RATIOon 12-21-2021 % Free PSA 24.5 % Normal [facility] Comment on above: Result Comment: The [...] men. Performed By: #### A 1C #### [facility] [address] [place] [address] Dr. Tigre Gant Prostate specific Ag [Mass/Vol] 4.2 ng/mL Critically high 0.0-4.0 [facility] Comment on above: Result Comment: Renee JONES methodology. . According to the [employer], Serum PSA should decrease and [...] disease. Performed By: #### A 1C #### [facility] [address] [place] [address] Dr. Tigre Gant PSA, Free 1.03 ng/mL Normal N/A [facility] Comment on above: Result Comment: Renee JONES methodology. Performed By: #### A 1C #### [facility] [address] [place] [address] Dr. Tigre Gant Lab Reportson 11-14-2021 Lab Reports [id number] 0CD:127 Normal [facility] CLOSTRIDIUM DIFFICILE PCRon 09-13-2021 C difficile Toxin Gene SHOSHANA Negative Normal Negative [facility] Comment on above: Performed By: #### A 1C #### [facility] [address] [place] [address] Dr. Tigre Gant GI PANEL (PCR)on 09-12-2021 Adenovirus F 40/41 Not detected Normal NOT DETECTED [facility] Comment on above: Performed By: #### G IPANEL #### [facility] [address] [place] [address] Dr. Tigre Gant Astrovirus Not detected Normal NOT DETECTED [facility] Comment on above: Performed By: #### G IPANEL #### [facility] [address] [place] [address] Dr. Tigre Gant C. Diff toxin A/B Not detected Normal NOT DETECTED [facility] Comment on above: Performed By: #### G IPANEL #### [facility] [address] [address] [address] Tigre Gant Campylobacter Not detected Normal NOT DETECTED [facility] Comment on above: Performed By: #### G IPANEL #### [facility] [address] [place] [address] Dr. Tigre Gatn Cryptosporidium Not detected Normal NOT DETECTED [facility] Comment on above: Performed By: #### G IPANEL #### [facility] [address] [place] [address] Dr. Tigre Gant Cyclos. Cayetanensis Not detected Normal NOT DETECTED [facility] Comment on above: Performed By: #### G IPANEL #### [facility] [address] [place] [address] Dr. Tigre Gant E. Coli O157 Not Applicable Normal Not Applicable [facility] Comment on above: Performed By: #### G IPANEL #### [facility] [address] [place] [address] Dr. Tigre Gant E. histolytica Not detected Normal NOT DETECTED [facility] [place] Comment on above: Performed By: #### G IPANEL #### [facility] [address] [place] [address] Dr. Tigre Gant EAEC Not detected Normal NOT DETECTED [facility] Comment on above: Performed By: #### G IPANEL #### [facility] [address] [address] [address] Tigre Gant EIEC Not detected Normal NOT DETECTED [facility] Comment on above: Performed By: #### G IPANEL #### [facility] [address] [place] [address] Dr. Tigre Gant EPEC Not detected Normal NOT DETECTED [facility] Comment on above: Performed By: #### G IPANEL #### [facility] [address] [place] [address] Dr. Tigre Gant ETEC Not detected Normal NOT DETECTED [facility] Comment on above: Performed By: #### G IPANEL #### [facility] [address] [place] [address] Dr. Tigre Valverde Lamblia Not detected Normal NOT DETECTED [facility] Comment on above: Performed By: #### G IPANEL #### [facility] [address] [place] [address] Dr. Tigre ROSALES CONTROLS PASSED Normal [facility] Comment on above: Performed By: #### G IPANEL #### [facility] [address] [place] [address] Dr. Tigre BRODERICK [facility] HEADER GI PANEL BACTERIA Normal [facility] Comment on above: Performed By: #### G IPANEL #### [facility] [address] [place] [address] Dr. Tigre CAPUTO ECOLI GI PANEL DIARRHEAGEN IC E.COLI / SHIGELLA Normal [facility] Comment on above: Performed By: #### G IPANEL #### [facility] [address] [place] [address] Dr. Tigre CAPUTO INFO SEE BELOW Normal [facility] Comment on above: Result Comment: EAEC - Enteroaggregative E. Coli EPEC- Enteropathogenic E. Coli ETEC- Enterotoxigenic E. Coli lt/st STEC- Shigella-like toxin-producing E. Coli stx1/stx2 EIEC- Shigella/Enteroinvasive E. Coli Performed By: #### G IPANEL #### [facility] [address] [place] [address] Dr. Tigre CAPUTO PARASITES GI PANEL PARASITES Normal [facility] Comment on above: Performed By: #### G IPANEL #### [facility] [address] [place] [address] Dr. Tigre CAPUTO VIRUS GI PANEL VIRUSES Normal [facility] Comment on above: Performed By: #### G IPANEL #### [facility] [address] [place] [address] Dr. Tigre Gant Norovirus GI/GII Not detected Normal NOT DETECTED [facility] Comment on above: Performed By: #### G IPANEL #### [facility] [address] [place] [address] Dr. Tigre Gant P. Shigelloides Not detected Normal NOT DETECTED [facility] Comment on above: Performed By: #### G IPANEL #### [facility] [address] [place] [address] Dr. Tigre Gant Rotavirus A Not detected Normal NOT DETECTED [facility] Comment on above: Performed By: #### G IPANEL #### [facility] [address] [place] [address] Dr. Tigre Gant Salmonella Not detected Normal NOT DETECTED [facility] Comment on above: Performed By: #### G IPANEL #### [facility] [address] [place] [address] Dr. Tigre Gant Sapovirus Not detected Normal NOT DETECTED [facility] Comment on above: Performed By: #### G IPANEL #### [facility] [address] [place] [address] Dr. Tigre Gant STEC Not detected Normal NOT DETECTED [facility] Comment on above: Performed By: #### G IPANEL #### [facility] [address] [place] [address] Dr. Tigre Gant Vibrio Not detected Normal NOT DETECTED The [facility] Comment on above: Performed By: #### G IPANEL #### [facility] [address] [address] [address] Tigre Gant Vibrio Cholera Not detected Normal NOT DETECTED The [facility] Comment on above: Performed By: #### G IPANEL #### [facility] [address] [address] [address] Tigre Gant Y. Enterocolitica Not detected Normal NOT DETECTED The [facility] Comment on above: Performed By: #### G IPANEL #### [facility] [address] [address] [address] Tigre Gant XR lumbar spine 6V w bending on 05-05-2021 XR lumbar spine 6V w bending [facility] [place] [address] [place] [address] XRay Report Signed Patient: Zach Manuel MR#: [id number] 9 : 1945 Acct:[id number] Age/Sex: 76 / M ADM Date: 05/05/21 Loc: XD Room: Type: [facility] Attending Dr: Kosta Harper MD Ordering [...] Kumar Jr., M.D.05/05/2021 2:07 PM Dictation Location: [place] [address] Transcribed By: [facility] 05/05/21 1407 Dictated By: Carson Kumar Jr, MD 05/05/21 1353 Signed By: 05/05/21 1407 [facility] Reportson 02-21-2021 Lab Reports [id number]:[id number] Normal [facility] Ambulatory Clinical Summaryo n 01-03-2021 Ambulatory Clinical Summary {[id number] Normal [facility] Patient Educationon 01-04-20 Patient Education Benign Prostatic [...] Document Reviewed: 05/15/2008 ExitCare? Patient Information ?2013 [employer] [facility] Urology Office/Clinic Noteon 01-03-2021 Urology Office/Clinic [...] Dr. Lewis. Follow-up With When Contact Information LEWIS Roxana MONTELONGO [address] [place] [address] [phone] Additional Instructions: 1yr. psa Patient Education Benign [...] 30 days (more content not included)... Normal [facility] Comment on above: Result Comment: Elec tronically Signed By: Roxana LEWIS MD\.br\Date and Time Signed: 01/03/21 14:46 EDT\.br\Electronically Co-Signed By: Shayna Ramirez MA\.br\Date and Time Co-Signed: 01/03/21 14:45 EDT FEMUR RIGHT 2 VWSon 05-16-20 19 FEMUR RIGHT 2 VWS [facility] Department of Radiology [address] [place] [phone] ======== Patient Name: ZACH MANUEL : 1945 Sex: M Age: Race: White Pt. 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 Transcribed by: [email or web address], User Resident: Electronically Signed by: JAZMÍN HERNANDEZ @ 05/16/2019 03:38 PM Normal [facility] Comment on above: Order Comment: , , = ========= , Ordering Provider - ZHENG SCOTT PA-C , FEMUR RIGHT 2 [facility] 02-14-20 19 FEMUR RIGHT 2 [facility] Department of Radiology [address] [place] [phone] ======== Patient Name: ZACH MANUEL : 1945 Sex: M Age: Race: White Pt. 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 Electronically signed by:Jazmín Hernandez. Transcribed by: [email or web address], User Resident: Electronically Signed by: JAZMÍN HERNANDEZ @ 02/13/2019 05:05 PM Normal [facility] Comment on above: Order Comment: , , = ========= , Ordering Provider - ZHENG SCOTT PA-C , FEMUR RIGHT 2 [facility] 01-10-20 19 FEMUR RIGHT 2 [facility] Department of Radiology [address] [place] [phone] ======== Patient Name: ZACH MANUEL : 1945 Sex: M Age: Race: White Pt. Location: Patient Status: O Ordered Date: 01/09/2019 10:10:00 AM Completed Date: 01/09/2019 10:15 AM Requesting Provider: JACQUELINE CROSS Attending Provider: JACQUELINE CROSS Report Copy To: STEW HANNA Signs & Symptoms: S72.21XD Displ subtrochnt fx r femur, subs for clos fx w routn heal I10 History: Dolliver Comments: , , , Ordering Provider - JACQUELINE CROSS PA-C , Exam: FEMUR RIGHT 2 S ======== FEMUR RIGHT 2 S 01/09/2019 10:15 AM EDT SIGNS AND SYMPTOMS: [...] reaction Electronically signed by:Soila Morris. Transcribed by: [email or web address], User Resident: Electronically Signed by: SOILA MORRIS @ 01/09/2019 12:25 PM Normal [facility] Comment on above: Order Comment: , , = ========= , Ordering Provider - JACQUELINE CROSS PA-C , FEMUR RIGHT 2 Son 12-11-19 19 FEMUR RIGHT 2 S [facility] Department of Radiology [address] [place] [phone] ======== Patient Name: ZACH MANUEL : 1945 Sex: M Age: Race: White Pt. Location: 84 Patient Status: Ordered Date: 12/10/2018 1:20:00 PM [...] 2 S ======== FEMUR RIGHT 2 S 12/10/2018 1:34 PM EDT SIGNS AND SYMPTOMS: [...] fracture Electronically signed by:Soila Morris. Transcribed by: [email or web address], User Resident: Electronically Signed by: SOILA MORRIS @ 12/10/2018 03:21 PM Normal [facility] Comment on above: Order Comment: , Vie ws (X-RAY, FEMUR): Radiologic Protocol , Weight Bearing?: Y , Views (X-RAY, FEMUR): Radiologic Protocol , Weight Bearing?: Y , , , Ordering Provider - ZHENG SCOTT PA-C , VITAMIN D 25-HYDROXYon 12-10 VITAMIN D 25-OH 40.2 ng/mL Normal 30.0-80.0 The [facility] Comment on above: Result Comment: >80. 0 Toxicity possible Performed By: #### 6 2586 #### [address] FEMUR RIGHT 2 [facility] 10-29-19 19 FEMUR RIGHT 2 S [facility] Department of Radiology [address] [place] [phone] ======== Patient Name: ZACH MANUEL : 1945 Sex: M Age: Race: White Pt. Location: Patient Status: O Ordered Date: 10/29/2018 12:00:00 PM Completed Date: 10/29/2018 01:58 PM Requesting Provider: ZHENG SCTOT Attending Provider: ZHENG SCOTT Report Copy To: HANNA MATHIAS Signs & Symptoms: S72.21XD Displ subtrochnt fx r femur, subs for clos fx w routn heal I10 History: Hailey Comments: , , , Ordering Provider - ZHENG DEWITTC , Exam: FEMUR RIGHT 2 [facility] ======== FEMUR RIGHT 2 VWS 10/29/2018 1:58 [...] healing Electronically signed by:Soila Morris. Transcribed by: [email or web address], User Resident: Electronically Signed by: SOILA MORRIS @ 10/29/2018 02:17 PM Normal [facility] Comment on above: Order Comment: , , = ========= , Ordering Provider - ZHENG SCOTT PA-C , FEMUR RIGHT 2 VWSon 09-20-20 18 FEMUR RIGHT 2 S [facility] Department of Radiology [address] [place] [phone] ======== Patient Name: ZACH MANUEL : 1945 Sex: M Age: Race: White Pt. Location: 84 Patient Status: O Ordered Date: 09/20/2018 12:45:00 PM Completed Date: 09/20/2018 12:45 PM Requesting Provider: ZHENG SCOTT Attending Provider: JACQUELINE CROSS Report Copy To: HANNA MATHIAS Signs & Symptoms: S72.21XD Displ subtrochnt fx r femur, subs for clos fx w routn heal I10 History: Dolliver Comments: , Views (X-RAY, FEMUR): AP, Lateral , Views (X-RAY, FEMUR): AP, Lateral , , , Ordering Epi - ZHENG SCOTT PA-C , Exam: FEMUR RIGHT 2 [facility] ======== FEMUR RIGHT 2 S 09/20/2018 12:49 PM EST SIGNS AND SYMPTOMS: S72.21XD Displ subtrochnt fx r femur, subs for clos fx w routn heal I10 TECHNOLOGIST COMMENTS: History of right femur surgery 07/13/2018. Ortho follow up. QUESTION FOR THE RADIOLOGIST: , Views (X-RAY, FEMUR): AP, Lateral , Views (X-RAY, FEMUR): AP, Lateral , , , Ordering Epi - ZHENG SCOTT PA-C , PROTOCOL: AP(PA) and Lateral views were obtained. COMPARISON: August 23, 2018 FINDINGS: Soft tissues: Unchanged Bones: Unchanged Joints: Unchanged IMPRESSION: Transversely oriented subtrochanteric fracture fixed by nery in unchanged slightly offset alignment with still no significant bony bridging Electronically signed by:Soila Morris. Transcribed by: [email or web address], User Resident: Electronically Signed by: SOILA MORRIS @ 09/20/2018 01:08 PM Normal [facility] Comment on above: Order Comment: , Jaky ws (X-RAY, FEMUR): AP, Lateral , Views (X- RAY, FEMUR): AP, Lateral , , , Ordering Provider - ZHENG SCOTT PA-C , FEMUR RIGHT 2 Son 08-23-20 18 FEMUR RIGHT 2 S [facility] Department of Radiology [address] [place] [phone] ======== Patient Name: ZACH MANUEL : [...] SCOTT PA-C , Exam: FEMUR RIGHT 2 [facility] ======== FEMUR RIGHT 2 S 08/23/2018 12:57 PM EST SIGNS AND SYMPTOMS: S72.21XD Displ subtrochnt fx r femur, subs for clos fx w routn heal I10 TECHNOLOGIST COMMENTS: Ortho follow up for surgery to right femur. QUESTION FOR THE RADIOLOGIST: , Views (X-RAY, FEMUR): AP, Lateral , Views (X-RAY, FEMUR): AP, Lateral , , , Ordering Epi SCOTT PA-C [...] disease Electronically signed by:Soila Morris. Transcribed by: [email or web address], User Resident: Electronically Signed by: SOILA MORRIS @ 08/23/2018 02:15 PM Normal [facility] Comment on above: Order Comment: , Jaky ws (X-RAY, FEMUR): AP, Lateral , Views (X- RAY, FEMUR): AP, Lateral , , , Ordering Epi SCOTT PA-C , FEMUR RIGHT 2 [facility] 07-25-20 18 FEMUR RIGHT 2 [facility] Department of Radiology [address] [place] [phone] ======== Patient Name: ZACH MANUEL : 1945 Sex: M Age: Race: White Pt. Location: Patient Status: Ordered Date: 07/25/2018 10:10:00 AM Completed Date: 07/25/2018 10:16 AM Requesting Provider: JACQUELINE CROSS Attending Provider: Report Copy To: Signs & Symptoms: S72.21XA Displaced subtrochanteric fracture of right femur, init I10 History: Dolliver Comments: , , , Ordering Provider - JACQUELINE CROSS PA-C , Exam: FEMUR RIGHT 2 VWS ======== FEMUR RIGHT 2 VWS 07/25/2018 10:16 [...] above Electronically signed by:Soila Morris. Transcribed by: [email or web address], User Resident: Electronically Signed by: SOILA MORRIS @ 07/25/2018 02:02 PM Normal [facility] Comment on above: Order Comment: , , = ========= , Ordering Provider - JACQUELINE CROSS PA-C , BASIC METABOLIC PANELon 10-2 Calcium [Mass/Vol] 8.2 mg/dL Low 8.6-10.3 The [facility] Comment on above: Order Comment: No: D o not add to previous draw Performed By: #### 5 0103 #### [facility] [address] [place] [address], [place] Chloride [Moles/Vol] 100 mmol/L Normal 98-107 [facility] Comment on above: Order Comment: No: D o not add to previous draw Performed By: #### 5 0103 #### [facility] [address] [place] [address], [place] CO2 [Moles/Vol] 25 mmol/L Normal 21-31 The [facility] Comment on above: Order Comment: No: D o not add to previous draw Performed By: #### 5 0103 #### [facility] [address] [place] [address], [place] Creatinine [Mass/Vol] 1.11 mg/dL Normal 0.70-1.30 [facility] Comment on above: Order Comment: No: D o not add to previous draw Performed By: #### 5 0103 #### [facility] [address] [place] [address], [place] GFR/1.73 sq M predicted among blacks MDRD (S/P/Bld) [Vol rate/Area] mL/min/{1.73_m2} Normal >60 [facility] Comment on above: Order Comment: No: D o not add to previous draw Result Comment: Calc ulation may not be valid for patients over 70 years Performed By: #### 5 0103 #### [facility] [address] [place] [address], [place] GFR/1.73 sq M predicted among non-blacks MDRD (S/P/Bld) [Vol rate/Area] mL/min/{1.73_m2} Normal >60 The [facility] Comment on above: Order Comment: No: D o not add to previous draw Result Comment: Calc ulation may not be valid for patients over 70 years Performed By: #### 5 0103 #### [facility] [address] [place] [address], [place] Glucose [Mass/Vol] 243 mg/dL High 70-100 The [facility] Comment on above: Order Comment: No: D o not add to previous draw Performed By: #### 5 0103 #### [facility] [address] [place] [address], [place] Potassium [Moles/Vol] 3.7 mmol/L Normal 3.5-5.1 [facility] Comment on above: Order Comment: No: D o not add to previous draw Performed By: #### 5 0103 #### [facility] [address] [place] [address], [place] Sodium [Moles/Vol] 131 mmol/L Low 136-145 The [facility] Comment on above: Order Comment: No: D o not add to previous draw Performed By: #### 5 0103 #### [facility] [address] [place] [address], [place] Urea nitrogen [Mass/Vol] 18 mg/dL Normal 7-25 [facility] Comment on above: Order Comment: No: D o not add to previous draw Performed By: #### 5 0103 #### [facility] [address] [place] [address], [place] CBC COMPLETE BLOOD COUNTon Erythrocyte distribution width (RBC) [Ratio] 12.4 % Normal 11.5-15.0 The [facility] Comment on above: Order Comment: No: D o not add to previous draw Performed By: #### 5 0103 #### [facility] [address] [place] [address], [place] Hematocrit (Bld) [Volume fraction] 25.4 % Low 39.0-50.0 The [facility] Comment on above: Order Comment: No: D o not add to previous draw Performed By: #### 5 0103 #### [facility] [address] [place] [address], [facility] Hemoglobin (Bld) [Mass/Vol] 8.6 g/dL Low 13.0-17.0 The [facility] Comment on above: Order Comment: No: D o not add to previous draw Performed By: #### 5 0103 #### [facility] [address] [place] [address], [facility] IMM PLATELET FRAC 5.2 % Normal 0.8-6.3 The [facility] Comment on above: Order Comment: No: D o not add to previous draw Performed By: #### 5 0103 #### [facility] [address] [facility] [place] [address], [facility] MCH (RBC) [Entitic mass] 31.4 pg Normal 27.0-33.0 The [facility] Comment on above: Order Comment: No: D o not add to previous draw Performed By: #### 5 0103 #### [facility] [address] [place] [address], [facility] MCHC (RBC) [Mass/Vol] 33.9 g/dL Normal 32.0-35.0 The [facility] Comment on above: Order Comment: No: D o not add to previous draw Performed By: #### 5 0103 #### [facility] [address] [facility] [place] [address], [facility] MCV (RBC) [Entitic vol] 92.7 fL Normal 82.0-98.0 The [facility] Comment on above: Order Comment: No: D o not add to previous draw Performed By: #### 5 0103 #### [facility] [address] [facility] [place] [id number], [facility] Nucleated RBC/100 WBC (Bld) [Ratio] 0 % Normal 0-0 The [facility] Comment on above: Order Comment: No: D o not add to previous draw Performed By: #### 5 0103 #### [facility] [address] [place] [address], [place] PLAT CNT 130 10*3/uL Low 150-400 The [facility] Comment on above: Order Comment: No: D o not add to previous draw Performed By: #### 5 0103 #### [facility] [address] [place] [address], [place] RBC (Bld) [#/Vol] 2.74 10*6/uL Low 4.20-5.70 The [facility] Comment on above: Order Comment: No: D o not add to previous draw Performed By: #### 5 0103 #### [facility] [address] [place] [address], [place] WBC (Bld) [#/Vol] 6.87 10*3/uL Normal 4.00-10.60 The [facility] Comment on above: Order Comment: No: D o not add to previous draw Performed By: #### 5 0103 #### [facility] [address] [place] [address], [place] POC GLUCOSE LABon 07-16-2018 Glucose [Mass/Vol] 281 mg/dL High 70-100 The [facility] Comment on above: Performed By: #### 5 0103 #### [facility] [address] [place] [address], [place] Glucose [Mass/Vol] 250 mg/dL High 70-100 The [facility] Comment on above: Performed By: #### 5 4721, 84185 #### [facility] [address] [place] [address], [place] Glucose [Mass/Vol] 240 mg/dL High 70-100 The [facility] Comment on above: Performed By: #### 5 8131, 86630 #### [facility] [address] [place] [address], [place] BASIC METABOLIC PANELon 06-25 Calcium [Mass/Vol] 8.0 mg/dL Low 8.6-10.3 [facility] Comment on above: Order Comment: No: D o not add to previous draw Performed By: #### 5 6101, 39416 #### [facility] [address] [place] [address], [place] Chloride [Moles/Vol] 101 mmol/L Normal 98-107 [facility] Comment on above: Order Comment: No: D o not add to previous draw Performed By: #### 5 6101, 76756 #### [facility] [address] [place] [address], [place] CO2 [Moles/Vol] 25 mmol/L Normal 21-31 [facility] Comment on above: Order Comment: No: D o not add to previous draw Performed By: #### 5 6101, 21082 #### [facility] [address] [place] [address], [place] Creatinine [Mass/Vol] 1.23 mg/dL Normal 0.70-1.30 The [facility] Comment on above: Order Comment: No: D o not add to previous draw Performed By: #### 5 6101, 90085 #### [facility] [address] [place] [address], [place] GFR/1.73 sq M predicted among blacks MDRD (S/P/Bld) [Vol rate/Area] mL/min/{1.73_m2} Normal >60 The [facility] Comment on above: Order Comment: No: D o not add to previous draw Result Comment: Calc ulation may not be valid for patients over 70 years Performed By: #### 5 6101, 12914 #### [facility] [address] [place] [address], [place] GFR/1.73 sq M predicted among non-blacks MDRD (S/P/Bld) [Vol rate/Area] 58 ml/min/1.73sq m Abnormal >60 The [facility] Comment on above: Order Comment: No: D o not add to previous draw Result Comment: Calc ulation may not be valid for patients over 70 years Performed By: #### 5 6101, 02870 #### [facility] [address] [place] [address], [facility] Glucose [Mass/Vol] 207 mg/dL High 70-100 The [facility] Comment on above: Order Comment: No: D o not add to previous draw Performed By: #### 5 610, 87101 #### [facility] [address] [place] [id number], [facility] Potassium [Moles/Vol] 3.7 mmol/L Normal 3.5-5.1 [facility] Comment on above: Order Comment: No: D o not add to previous draw Performed By: #### 5 610, 07452 #### [facility] [address] [place] [address], [facility] Sodium [Moles/Vol] 130 mmol/L Low 136-145 The [facility] Comment on above: Order Comment: No: D o not add to previous draw Performed By: #### 5 610, 80567 #### [facility] [address] [place] [address], [facility] Urea nitrogen [Mass/Vol] 16 mg/dL Normal 7-25 The [facility] Comment on above: Order Comment: No: D o not add to previous draw Performed By: #### 5 610, 25764 #### [facility] [address] [place] [address], [facility] CBC W/DIFFon 07-15-2018 ABS BASOPHILS 0.0 10*3/uL Normal 0.0-0.2 The [facility] Comment on above: Order Comment: No: D o not add to previous draw Performed By: #### 5 610, 71795 #### [facility] [address] [place] [id number], [facility] ABS IMM GRANS 0.1 10*3/uL Normal 0.0-0.2 The [facility] Comment on above: Order Comment: No: D o not add to previous draw Performed By: #### 5 610, 99100 #### [facility] [address] [place] [address], [place] ABS NEUTROPHILS 7.6 10*3/uL Normal 1.6-7.6 The [facility] Comment on above: Order Comment: No: D o not add to previous draw Performed By: #### 5 6100, 22273 #### [facility] [address] [place] [address], [place] Basophils/100 WBC (Bld) 0.3 % Normal 0.0-1.0 The [facility] Comment on above: Order Comment: No: D o not add to previous draw Performed By: #### 5 6100, 70282 #### [facility] [address] [place] [address], [place] Eosinophils (Bld) [#/Vol] 0.1 10*3/uL Normal 0.0-0.5 The [facility] Comment on above: Order Comment: No: D o not add to previous draw Performed By: #### 5 6100, 23074 #### [facility] [address] [place] [address], [place] Eosinophils/100 WBC (Bld) 1.6 % Normal 0.0-6.0 [facility] Comment on above: Order Comment: No: D o not add to previous draw Performed By: #### 5 6100, 24303 #### [facility] [address] [place] [address], [place] Erythrocyte distribution width (RBC) [Ratio] 12.5 % Normal 11.5-15.0 [facility] Comment on above: Order Comment: No: D o not add to previous draw Performed By: #### 5 6100, 69468 #### [facility] [address] [place] [address], [place] Hematocrit (Bld) [Volume fraction] 26.0 % Low 39.0-50.0 [facility] Comment on above: Order Comment: No: D o not add to previous draw Performed By: #### 5 6100, [id number] #### [facility] [address] [place] [address], [facility] Hemoglobin (Bld) [Mass/Vol] 8.8 g/dL Low 13.0-17.0 [facility] Comment on above: Order Comment: No: D o not add to previous draw Performed By: #### 5 6100, 16341 #### [facility] [address] [place] [address], [facility] IMM PLATELET FRAC 4.5 % Normal 0.8-6.3 The [facility] Comment on above: Order Comment: No: D o not add to previous draw Performed By: #### 5 6100, 20060 #### [facility] [address] [place] [address], [facility] IMMATURE GRANS 0.6 % Normal 0.0-1.0 The [facility] Comment on above: Order Comment: No: D o not add to previous draw Performed By: #### 5 6100, 57569 #### [facility] [address] [facility] [place] [address], [facility] Lymphocytes (Bld) [#/Vol] 0.2 10*3/uL Low 1.2-4.0 [facility] Comment on above: Order Comment: No: D o not add to previous draw Performed By: #### 5 6100, 82684 #### [facility] [address] [place] [address], [facility] Lymphocytes/100 WBC (Bld) 2.1 % Low 20.0-45.0 [facility] Comment on above: Order Comment: No: D o not add to previous draw Performed By: #### 5 6100, 57569 #### [facility] [address] [facility] MCH (RBC) [Entitic mass] 31.7 pg Normal 27.0-33.0 [facility] Comment on above: Order Comment: No: D o not add to previous draw Performed By: #### 5 610, 56421 #### [facility] [address] [place] [id number], [facility] MCHC (RBC) [Mass/Vol] 33.8 g/dL Normal 32.0-35.0 [facility] Comment on above: Order Comment: No: D o not add to previous draw Performed By: #### 5 6100, 36140 #### [facility] [address] [place] [address], [facility] MCV (RBC) [Entitic vol] 93.5 fL Normal 82.0-98.0 [facility] Comment on above: Order Comment: No: D o not add to previous draw Performed By: #### 5 6100, 35022 #### [facility] [address] [place] [address], [facility] Monocytes (Bld) [#/Vol] 0.6 10*3/uL Normal 0.1-1.0 [facility] Comment on above: Order Comment: No: D o not add to previous draw Performed By: #### 5 6100, 26035 #### [facility] [address] [place] [address], [facility] MONOS 7.1 % Normal 5.0-12.0 [facility] Comment on above: Order Comment: No: D o not add to previous draw Performed By: #### 5 6100, 06269 #### [facility] [address] [place] [address], [facility] Neutrophils/100 WBC (Bld) 88.3 % High 40.0-72.0 [facility] Comment on above: Order Comment: No: D o not add to previous draw Performed By: #### 5 6100, 18260 #### [facility] [address] [place] [address], [facility] Nucleated RBC/100 WBC (Bld) [Ratio] 0 % Normal 0-0 [facility] Comment on above: Order Comment: No: D o not add to previous draw Performed By: #### 5 610, 50295 #### [facility] [address] [place] [address], [place] PLAT CNT 113 10*3/uL Low 150-400 The [facility] Comment on above: Order Comment: No: D o not add to previous draw Performed By: #### 5 610, 19464 #### [facility] [address] [place] [address], [facility] RBC (Bld) [#/Vol] 2.78 10*6/uL Low 4.20-5.70 [facility] Comment on above: Order Comment: No: D o not add to previous draw Performed By: #### 5 610, 54991 #### [facility] [address] [place] [address], [place] WBC (Bld) [#/Vol] 8.62 10*3/uL Normal 4.00-10.60 [facility] Comment on above: Order Comment: No: D o not add to previous draw Performed By: #### 5 610, 97892 #### [facility] [address] [place] [address], [facility] POC GLUCOSE LABon 07-15-2018 Glucose [Mass/Vol] 281 mg/dL High 70-100 [facility] Comment on above: Performed By: #### 5 610, 36559 #### [facility] [address] [place] [address], [facility] Glucose [Mass/Vol] 305 mg/dL High 70-100 [facility] Comment on above: Performed By: #### 5 610, 88126 #### [facility] [address] [facility] [place] [address], [place] Glucose [Mass/Vol] 198 mg/dL High 70-100 [facility] Comment on above: Performed By: #### 5 610, 96423 #### [facility] [address] [place] [address], [place] Glucose [Mass/Vol] 227 mg/dL High 70-100 [facility] Comment on above: Performed By: #### 5 610, 62010 #### [facility] [address] [place] [address], [place] BASIC METABOLIC PANELon 10-2 Calcium [Mass/Vol] 8.3 mg/dL Low 8.6-10.3 [facility] Comment on above: Order Comment: Unkno wn Performed By: #### 5 610, 93982 #### [facility] [address] [place] [address], [place] Chloride [Moles/Vol] 105 mmol/L Normal 98-107 [facility] Comment on above: Order Comment: Unkno wn Performed By: #### 5 610, 75136 #### [facility] [address] [facility] [place] [address], [place] CO2 [Moles/Vol] 24 mmol/L Normal 21-31 The [facility] Comment on above: Order Comment: Unkno wn Performed By: #### 5 6101, 59332 #### [facility] [address] [place] [address], [place] Creatinine [Mass/Vol] 1.20 mg/dL Normal 0.70-1.30 [facility] Comment on above: Order Comment: Unkno wn Performed By: #### 5 6101, 75822 #### [facility] [address] [place] [address], [place] GFR/1.73 sq M predicted among blacks MDRD (S/P/Bld) [Vol rate/Area] mL/min/{1.73_m2} Normal >60 [facility] Comment on above: Order Comment: Unkno wn Result Comment: Calc ulation may not be valid for patients over 70 years Performed By: #### 5 610, 46458 #### [facility] [address] [place] [address], [place] GFR/1.73 sq M predicted among non-blacks MDRD (S/P/Bld) [Vol rate/Area] 60 ml/min/1.73sq m Abnormal >60 The [facility] Comment on above: Order Comment: Unkno wn Result Comment: Calc ulation may not be valid for patients over 70 years Performed By: #### 5 610, 30662 #### [facility] [address] [place] [address], [place] Glucose [Mass/Vol] 181 mg/dL High 70-100 [facility] Comment on above: Order Comment: Unkno wn Performed By: #### 5 610, 87492 #### [facility] [address] [place] [address], [place] Potassium [Moles/Vol] 3.7 mmol/L Normal 3.5-5.1 [facility] Comment on above: Order Comment: Unkno wn Performed By: #### 5 610, 44409 #### [facility] [address] [place] [address], [place] Sodium [Moles/Vol] 133 mmol/L Low 136-145 [facility] Comment on above: Order Comment: Unkno wn Performed By: #### 5 610, 74709 #### [facility] [address] [place] [address], [place] Urea nitrogen [Mass/Vol] 18 mg/dL Normal 7-25 [facility] Comment on above: Order Comment: Unkno wn Performed By: #### 5 610, 08041 #### [facility] [address] [place] [address], [place] CBC COMPLETE BLOOD COUNTon - Erythrocyte distribution width (RBC) [Ratio] 12.7 % Normal 11.5-15.0 [facility] Comment on above: Order Comment: Unkno wn Performed By: #### 5 610, 15822 #### [facility] [address] [place] [id number], [facility] Hematocrit (Bld) [Volume fraction] 28.6 % Low 39.0-50.0 [facility] Comment on above: Order Comment: Unkno wn Performed By: #### 5 6100, 59197 #### [facility] [address] [place] [id number], [facility] Hemoglobin (Bld) [Mass/Vol] 9.8 g/dL Low 13.0-17.0 [facility] Comment on above: Order Comment: Unkno wn Performed By: #### 5 6100, 81989 #### [facility] [address] [place] [id number], [facility] IMM PLATELET FRAC 4.1 % Normal 0.8-6.3 [facility] Comment on above: Order Comment: Unkno wn Performed By: #### 5 6100, 49139 #### [facility] [address] [place] [id number], [facility] MCH (RBC) [Entitic mass] 31.5 pg Normal 27.0-33.0 [facility] Comment on above: Order Comment: Unkno wn Performed By: #### 5 6100, 37817 #### [facility] [address] [place] [address], [place] MCHC (RBC) [Mass/Vol] 34.3 g/dL Normal 32.0-35.0 [facility] Comment on above: Order Comment: Unkno wn Performed By: #### 5 610, 22721 #### [facility] [address] [place] [id number], [facility] MCV (RBC) [Entitic vol] 92.0 fL Normal 82.0-98.0 [facility] Comment on above: Order Comment: Unkno wn Performed By: #### 5 6101, 37338 #### [facility] [address] [place] [address], [facility] Nucleated RBC/100 WBC (Bld) [Ratio] 0 % Normal 0-0 [facility] Comment on above: Order Comment: Unkno wn Performed By: #### 5 6101, 14893 #### [facility] [address] [place] [address], [facility] PLAT CNT 119 10*3/uL Low 150-400 [facility] Comment on above: Order Comment: Unkno wn Performed By: #### 5 6101, 25019 #### [facility] [address] [facility] [place] [address], [facility] RBC (Bld) [#/Vol] 3.11 10*6/uL Low 4.20-5.70 [facility] Comment on above: Order Comment: Unkno wn Performed By: #### 5 6101, 80251 #### [facility] [address] [facility] [place] [address], [facility] WBC (Bld) [#/Vol] 6.45 10*3/uL Normal 4.00-10.60 [facility] Comment on above: Order Comment: Unkno wn Performed By: #### 5 6101, 04320 #### [facility] [address] [facility] [place] [address], [facility] MAGNESIUM BLOODon 07-14-2018 Magnesium [Mass/Vol] 1.3 mg/dL Low 1.9-2.7 [facility] Comment on above: Order Comment: Unkno wn Performed By: #### 5 6101, 09153 #### [facility] [address] [place] [address], [facility] PHOSPHORUS BLOODon 8 Phosphate [Mass/Vol] 3.4 mg/dL Normal 2.5-5.0 [facility] Comment on above: Order Comment: Unkno wn Performed By: #### 5 610, 48591 #### [facility] [address] [place] [address], [place] POC GLUCOSE LABon 07-14-2018 Glucose [Mass/Vol] 253 mg/dL High 70-100 [facility] Comment on above: Performed By: #### 5 610, 44874 #### [facility] [address] [place] [address], [place] Glucose [Mass/Vol] 272 mg/dL High 70-100 [facility] Comment on above: Performed By: #### 5 610, 15748 #### [facility] [address] [place] [address], [place] Glucose [Mass/Vol] 167 mg/dL High 70-100 [facility] Comment on above: Performed By: #### 5 610, 25291 #### [facility] [address] [place] [address], [place] Glucose [Mass/Vol] 220 mg/dL High 70-100 [facility] Comment on above: Performed By: #### 5 610, 04130 #### [facility] [address] [place] [address], [place] VITAMIN D 25-HYDROXYon 07-14 VITAMIN D 25-OH 26.4 ng/mL Low 30.0-80.0 The [facility] Comment on above: Result Comment: >80. 0 Toxicity possible Performed By: #### 5 610, 44926 #### [facility] [address] [place] [address], [place] APTTon 07-13-2018 aPTT Coag (Bld) [Time] 23.9 s Low 25.0-35.0 [facility] Comment on above: Result Comment: ALL RESULTS [...] THIS PURPOSE. Performed By: #### 5 6101, 16283 #### [facility] [address] [place] [address], [facility] BASIC METABOLIC PANELon 10-2 Calcium [Mass/Vol] 8.7 mg/dL Normal 8.6-10.3 [facility] Comment on above: Performed By: #### 0 0071 #### [facility] [address] [facility] [place] [address], [facility] Chloride [Moles/Vol] 103 mmol/L Normal 98-107 [facility] Comment on above: Performed By: #### 0 0071 #### [facility] [address] [facility] [place] [address], [facility] CO2 [Moles/Vol] 24 mmol/L Normal 21-31 [facility] Comment on above: Performed By: #### 0 0071 #### [facility] [address] [facility] [place] [address], [facility] Creatinine [Mass/Vol] 1.18 mg/dL Normal 0.70-1.30 [facility] Comment on above: Performed By: #### 0 0071 #### [facility] [address] [place] [address], [facility] GFR/1.73 sq M predicted among blacks MDRD (S/P/Bld) [Vol rate/Area] mL/min/{1.73_m2} Normal >60 [facility] Comment on above: Result Comment: Calc ulation may not be valid for patients over 70 years Performed By: #### 0 0071 #### [facility] [address] [place] [address], [facility] GFR/1.73 sq M predicted among non-blacks MDRD (S/P/Bld) [Vol rate/Area] mL/min/{1.73_m2} Normal >60 [facility] Comment on above: Result Comment: Calc ulation may not be valid for patients over 70 years Performed By: #### 0 0071 #### [facility] [address] [place] [address], [facility] Glucose [Mass/Vol] 165 mg/dL High 70-100 [facility] Comment on above: Performed By: #### 0 0071 #### [facility] [address] [place] [address], [facility] Potassium [Moles/Vol] 4.1 mmol/L Normal 3.5-5.1 [facility] Comment on above: Performed By: #### 0 0071 #### [facility] [address] [place] [address], [facility] Sodium [Moles/Vol] 132 mmol/L Low 136-145 [facility] Comment on above: Performed By: #### 0 0071 #### [facility] [address] [place] [address], [facility] Urea nitrogen [Mass/Vol] 21 mg/dL Normal 7-25 [facility] Comment on above: Performed By: #### 0 0071 #### [facility] [address] [place] [address], [facility] CBC W/DIFFon 07-13-2018 ABS BASOPHILS 0.0 10*3/uL Normal 0.0-0.2 [facility] Comment on above: Performed By: #### 5 3 #### [facility] [address] [place] [address], [facility] ABS IMM GRANS 0.0 10*3/uL Normal 0.0-0.2 [facility] Comment on above: Performed By: #### 5 0103 #### [facility] [address] [place] [address], [facility] ABS NEUTROPHILS 9.8 10*3/uL High 1.6-7.6 [facility] Comment on above: Performed By: #### 5 0103 #### [facility] [address] [place] [address], [facility] Basophils/100 WBC (Bld) 0.4 % Normal 0.0-1.0 [facility] Comment on above: Performed By: #### 5 0103 #### [facility] [address] [facility] [place] [address], [facility] Eosinophils (Bld) [#/Vol] 0.1 10*3/uL Normal 0.0-0.5 [facility] Comment on above: Performed By: #### 5 0103 #### [facility] [address] [facility] [place] [address], [facility] Eosinophils/100 WBC (Bld) 0.5 % Normal 0.0-6.0 [facility] Comment on above: Performed By: #### 5 3 #### [facility] [address] [place] [address], [facility] Erythrocyte distribution width (RBC) [Ratio] 12.2 % Normal 11.5-15.0 [facility] Comment on above: Performed By: #### 5 3 #### [facility] [address] [facility] [place] [address], [facility] Hematocrit (Bld) [Volume fraction] 34.8 % Low 39.0-50.0 [facility] Comment on above: Performed By: #### 5 0103 #### [facility] [address] [facility] [place] [address], [facility] Hemoglobin (Bld) [Mass/Vol] 12.1 g/dL Low 13.0-17.0 [facility] Comment on above: Performed By: #### 5 3 #### [facility] [address] IMMATURE GRANS 0.4 % Normal 0.0-1.0 [facility] Comment on above: Performed By: #### 5 0103 #### [facility] [address] [place] [address], [facility] Lymphocytes (Bld) [#/Vol] 0.6 10*3/uL Low 1.2-4.0 [facility] Comment on above: Performed By: #### 5 0103 #### [facility] [address] [place] [address], [facility] Lymphocytes/100 WBC (Bld) 5.4 % Low 20.0-45.0 [facility] Comment on above: Performed By: #### 5 0103 #### [facility] [address] [place] [address], [facility] MCH (RBC) [Entitic mass] 31.1 pg Normal 27.0-33.0 [facility] Comment on above: Performed By: #### 5 0103 #### [facility] [address] MCHC (RBC) [Mass/Vol] 34.8 g/dL Normal 32.0-35.0 [facility] Comment on above: Performed By: #### 5 0103 #### [facility] [address] [place] [address], [facility] MCV (RBC) [Entitic vol] 89.5 fL Normal 82.0-98.0 [facility] Comment on above: Performed By: #### 5 0103 #### [facility] [address] [place] [address], [facility] Monocytes (Bld) [#/Vol] 0.5 10*3/uL Normal 0.1-1.0 [facility] Comment on above: Performed By: #### 5 0103 #### [facility] [address] [place] [address], [facility] MONOS 4.3 % Low 5.0-12.0 [facility] Comment on above: Performed By: #### 5 0103 #### [facility] [address] [place] [id number], [facility] Neutrophils/100 WBC (Bld) 89.0 % High 40.0-72.0 [facility] Comment on above: Performed By: #### 5 0103 #### [facility] [address] [place] [address], [facility] Nucleated RBC/100 WBC (Bld) [Ratio] 0 % Normal 0-0 [facility] Comment on above: Performed By: #### 5 0103 #### [facility] [address] [facility] [place] [address], [facility] PLAT CNT 177 10*3/uL Normal 150-400 [facility] Comment on above: Performed By: #### 5 0103 #### [facility] [address] [place] [address], [facility] RBC (Bld) [#/Vol] 3.89 10*6/uL Low 4.20-5.70 [facility] Comment on above: Performed By: #### 5 0103 #### [facility] [address] [facility] [place] [address], [facility] WBC (Bld) [#/Vol] 11.04 10*3/uL High 4.00-10.60 [facility] Comment on above: Performed By: #### 5 0103 #### [facility] [address] [place] [address], [facility] FEMUR RIGHT 2 VWSon 07-13-20 18 FEMUR RIGHT 2 VWS [facility] Department of Radiology [address] [place] [id number] ======== Patient Name: ZACH MANUEL : 1945 Sex: M Age: Race: White Pt. Location: [id number] Patient Status: I Ordered Date: 07/13/2018 7:00:00 AM Completed Date: 07/13/2018 01:57 PM Requesting Provider: DANIELA ANTONY Attending Provider: DANIELA ANTONY Report Copy To: Signs & Symptoms: RT FEMUR IM NAIL History: RT FEMUR IM NAIL Comments: RT FEMUR IM NAIL Exam: FEMUR RIGHT 2 S ======== FEMUR RIGHT 2 S 07/13/2018 1:57 PM EDT SIGNS AND SYMPTOMS: RT FEMUR IM NAIL TECHNOLOGIST COMMENTS: right hip IM nail Dr. Antony 5 minutes 17 seconds QUESTION FOR THE RADIOLOGIST: RT FEMUR IM NAIL PROTOCOL: AP(PA) and Lateral views were obtained. COMPARISON: None FINDINGS: Soft tissues: Bones: Joints: IMPRESSION: Documentation Electronically signed by:Soila Morris. Transcribed by: [email or web address], User Resident: Electronically Signed by: SOILA MORRIS @ 07/15/2018 12:16 PM Normal [facility] Comment on above: Order Comment: RT FE MUR IM NAIL FEMUR RIGHT 2 S [facility] Department of Radiology [address] [place] [id number] ======== Patient Name: ZACH MANUEL : 1945 Sex: M Age: Race: White Pt. Location: [facility] Patient Status: I Ordered Date: 07/12/2018 9:40:00 PM Completed Date: 07/12/2018 10:35 PM Requesting Provider: MARY VELEZ Attending Provider: MARY VELEZ Report Copy To: Signs & Symptoms: Pain ( specify Location) History: Patient history not available Comments: R/O FX, right knee Exam: FEMUR RIGHT 2 VWS ======== FEMUR RIGHT 2 S 07/12/2018 10:35 [...] findings. Electronically signed by:Zoran Cobb. Transcribed by: [email or web address], User Resident: RENAN SEWELL Electronically Signed by: ZORAN COBB @ 07/13/2018 06:51 PM I personally read this/these film(s) with this resident Normal [facility] Comment on above: Order Comment: R/O F X, right knee History and Physicalon 07-13 History and Physical MR#: [id number] [facility] Pt. Name: Zach Manuel Admitted: 07/13/2018 Date of : 1945 Attending Physician: Natalie Barajas M.D. Room #: [id number] Discharge Date: HISTORY AND PHYSICAL CHIEF COMPLAINT: Fall, right hip fracture. HISTORY OF PRESENT ILLNESS: The patient is a 73-year-old gentleman with past medical history of diabetes, multiple myeloma that was treated and now under surveillance, Paget's disease and ulcerative colitis, presented to the ER as a transfer from [facility]. Orthopedist service accepted the patient for treatment of right hip fracture. The patient reports that today approximately 6 hours prior to arrival to [facility] ER, he was accidentally hit by his [...] We will provide DVT and GI prophylaxis. [facility] for possible rehab placement and PT and OT once the patient will have surgery. Electronically Signed by: Natalie Barajas M.D. 07/14/2018 12:41 A Natalie Barajas M.D. Date Dict: 07/13/2018/01:20 A/Natalie Barajas M.D. Date Trans: 07/13/2018 06:08 A/maryo [id number] Normal [facility] Operative Reporton 8 Operative Report MR#: [id number] I [facility] Pt. Name: Zach Manuel Room #: [id number] Discharge Date: Birthdate: 1945 OPERATIVE REPORT DATE OF SURGERY: 07/13/2018 SURGEON: Daniela Antony M.D. PODOPEDIATRICIAN: Rob Gomez M.D. PREOPERATIVE DIAGNOSIS: Right subtrochanteric [...] The distal interlocking screws, we used perfect nondalton technique. The guide pin was placed under [...] Gomez MD Date Trans: 07/13/2018 09:17 P/tata [id number] cc: Hanna Mathias M.D. [address] [id number] Normal [facility] POC GLUCOSE LABon 07-13-2018 Glucose [Mass/Vol] 249 mg/dL High 70-100 [facility] Comment on above: Performed By: #### 8 [id number] #### [facility] [address] [facility] [place] [address], [place] Glucose [Mass/Vol] 226 mg/dL High 70-100 [facility] Comment on above: Performed By: #### 8 [id number] #### [facility] [address] [facility] [place] [address], [place] Glucose [Mass/Vol] 144 mg/dL High 70-100 [facility] Comment on above: Performed By: #### 8 [id number] #### [facility] [address] [facility] [place] [address], [place] Glucose [Mass/Vol] 130 mg/dL High 70-100 [facility] Comment on above: Performed By: #### 8 [id number] #### [facility] [address] [facility] PROTHROMBIN TIMEon 8 INR Coag (PPP) [Relative time] 1.01 {INR} Normal 0.91-1.16 [facility] Comment on above: Result Comment: ACCC P [...] CHEST 1995;[id number]. Performed By: #### 5 6101, [id number] #### [facility] [address] [place] [address], [facility] PT Coag (PPP) [Time] 13.3 s Normal 12.3-14.8 [facility] Comment on above: Result Comment: ALL RESULTS MUST BE INTERPRETED WITH RESPECT TO BLOOD DRAWING ARTIFACT OR DILUTION ERROR OF ANTICOAGULANT AT THE TIME OF SAMPLING. Performed By: #### 5 6101, [id number] #### [facility] [address] [place] [address], [facility] TYPE AND SCREENon 07-13-2018 ABO INTERPRETATION O Normal [facility] Comment on above: Performed By: #### 6 2586 #### [facility] [address] [place] [address], [place] RH INTERPRETATION Positive Normal [facility] Comment on above: Performed By: #### 6 2586 #### [facility] [address] [place] [address], [place] RBC'S 2 UNITSon 07-12-2018 CROSSMATCH INTERP 1 COMP Normal [facility] Comment on above: Performed By: #### 8 [id number] #### [facility] [address] [place] [address], [place] CROSSMATCH INTERP 2 COMP Normal [facility] Comment on above: Performed By: #### 8 [id number] #### [facility] [address] [place] [address], [place] PRODUCT CODE 1 [id number] Normal [facility] Comment on above: Performed By: #### 8 [id number] #### [facility] [address] [place] [address], [place] PRODUCT CODE 2 [id number] Normal [facility] Comment on above: Performed By: #### 8 [id number] #### [facility] [address] [place] [address], [place] PRODUCT STATUS 1 RE Normal [facility] Comment on above: Result Comment: Resu lt changed by IF on 07/16/2018 09:30. The previous value was XM. Performed By: #### 8 [id number] #### [facility] [address] [place] [address], [place] PRODUCT STATUS 2 RE Normal [facility] Comment on above: Result Comment: Resu lt changed by IF on 07/16/2018 09:30. The previous value was XM. Performed By: #### 8 [id number] #### [facility] [address] [place] [address], [place] UNIT ABO 1 O Normal [facility] Comment on above: Performed By: #### 8 [id number] #### [facility] [address] [place] [address], [facility] UNIT ABO 2 O Normal [facility] Comment on above: Performed By: #### 8 [id number] #### [facility] [address] [place] [address], [facility] UNIT ID 1 [id number] Normal [facility] Comment on above: Performed By: #### 8 [id number] #### [facility] [address] [place] [address], [facility] UNIT ID 2 [id number] Normal [facility] Comment on above: Performed By: #### 8 [id number] #### [facility] [address] [place] [address], [facility] UNIT RH 1 Positive Normal [facility] Comment on above: Performed By: #### 8 [id number] #### [facility] [address] [place] [address], [facility] UNIT RH 2 Positive Normal [facility] Comment on above: Performed By: #### [id number] #### [facility] [address] [place] [address], [facility] Vital Signs Date Time Vital Sign Value Performing Clinician Facility 02-17-2025 11:04040 Body height 175.3 cm Uriel Gunter MD Work Phone: [facility] 02-17-2025 11:04-040 Body mass index (BMI) [Ratio] 27.01 kg/m2 Uriel Gunter MD Work Phone: [facility] 02-17-2025 11:04-040 Body temperature 97.2 [degF] Uriel Gunter MD Work Phone: [facility] 02-17-2025 11:04-040 Body weight 83 kg Uriel Gunter MD Work Phone: [facility] 02-17-2025 11:04-0400 Diastolic blood pressure 73 mm[Hg] Uriel Gunter MD Work Phone: [facility] 02-17-2025 11:04-0400 Heart rate 70 /min Uriel Gunter MD Work Phone: [facility] 02-17-2025 11:04-0400 Respiratory rate 16 /min Uriel Gunter MD Work Phone: [facility] 02-17-2025 11:04-0400 SaO2% (BldA) [Mass fraction] 96 % Uriel Gunter MD Work Phone: [facility] 02-17-2025 11:04-0400 Systolic blood pressure 129 mm[Hg] Uriel Gunter MD Work Phone: [facility] 10-09-2024 09:59-0500 Body height 175.3 cm [facility] 2 [facility] 10-09-2024 09:59-0500 Body mass index (BMI) [Ratio] 26.58 kg/m2 Pm 2 [facility] 10-09-2024 09:59-0500 Body weight 81.65 kg [facility] 05-27-2024 12:53-0400 Body height 175.3 cm Latrice Alexandrea PA-C Work Phone: [facility] 05-27-2024 12:53-0400 Body mass index (BMI) [Ratio] 27.73 kg/m2 Latrice Alexandrea PA-C Work Phone: [facility] 05-27-2024 12:53-0400 Body temperature 97.9 [degF] Latrice Alexandrea PA-C Work Phone: [facility] 05-27-2024 12:53-0400 Body weight 85.2 kg Latrice Alexandrea PA-C Work Phone: [facility] 05-27-2024 12:53-0400 Diastolic blood pressure 65 mm[Hg] Latrice Alexandrea PA-C Work Phone: [facility] 05-27-2024 12:53-0400 Heart rate 63 /min Latrice Alexandrea PA-C Work Phone: [facility] 05-27-2024 12:53-0400 Respiratory rate 16 /min Latrice Alexandrea PA-C Work Phone: [facility] 05-27-2024 12:53-0400 SaO2% (BldA) [Mass fraction] 98 % Latrice Alexandrea PA-C Work Phone: [facility] 05-27-2024 12:53-0400 Systolic blood pressure 117 mm[Hg] Latrice Alexandrea PA-C Work Phone: [facility] 02-26-2024 12:53-0400 Body height 175.3 cm Uriel Gunter MD Work Phone: [facility] 02-26-2024 12:53-0400 Body mass index (BMI) [Ratio] 27.43 kg/m2 Uriel Gunter MD Work Phone: [facility] 02-26-2024 12:53-0400 Body temperature 97.59 [degF] Uriel Gunter MD Work Phone: [facility] 02-26-2024 12:53-0400 Body weight 84.3 kg Uriel Gunter MD Work Phone: [facility] 02-26-2024 12:53-0400 Diastolic blood pressure 68 mm[Hg] Uriel Gunter MD Work Phone: [facility] 02-26-2024 12:53-0400 Heart rate 59 /min Uriel Gunter MD Work Phone: [facility] 02-26-2024 12:53-0400 Respiratory rate 18 /min Uriel Gunter MD Work Phone: [facility] 02-26-2024 12:53-0400 SaO2% (BldA) [Mass fraction] 97 % Uriel Gunter MD Work Phone: [facility] 02-26-2024 12:53-0400 Systolic blood pressure 126 mm[Hg] Uriel Gunter MD Work Phone: [facility] 11-27-2023 13:02-0500 Body height 175.[address] [employer] WORKER[employer] Work Phone: [facility] 11-27-2023 13:02-0500 Body temperature 97.9 [degF] Becca [address] KILN WORKER[employer]SHOE TURNER Work Phone: [facility] 11-27-2023 13:02-0500 Body weight 87.[address] KILN WORKER[employer]SH[employer] T[employer]NER Work Phone: [facility] 11-27-2023 13:02-0500 Diastolic blood pressure 51 mm[Hg] Becca Lane KILN WORKER[employer]SH[employer] TURNER Work Phone: [facility] 11-27-2023 13:02-0500 Heart rate 65 /min Becca [address] KILN WORKER[employer]SH[employer] T[employer]NER Work Phone: [facility] 11-27-2023 13:02-0500 Respiratory rate 18 /min [address]cca [address] KILN WORKER[employer]SH[employer] TURNER Work Phone: [facility] 11-27-2023 13:02-0500 SaO2% (BldA) [Mass fraction] 97 % [address] KILN WORKER.SHOE TURNER Work Phone: [facility] 11-27-2023 13:02-0500 Systolic blood pressure 154 mm[Hg] Becca Lane KILN WORKER[employer]SH[employer] TURNER Work Phone: [facility] 08-28-2023 13:08-0500 Body height 175.3 cm Uriel Gunter MD Work Phone: [facility] 08-28-2023 13:08-0500 Body temperature 97.2 [degF] Uriel Gunter MD Work Phone: [facility] 08-28-2023 13:08-0500 Body weight 86.27 kg Uriel Gunter MD Work Phone: [facility] 08-28-2023 13:08-0500 Diastolic blood pressure 68 mm[Hg] Uriel Gunter MD Work Phone: [facility] 08-28-2023 13:08-0500 Heart rate 62 /min Uriel Gunter MD Work Phone: [facility] 08-28-2023 13:08-0500 Respiratory rate 20 /min Uriel Gunter MD Work Phone: [facility] 08-28-2023 13:08-0500 SaO2% (BldA) [Mass fraction] 98 % Uriel Gunter MD Work Phone: [facility] 08-28-2023 13:08-0500 Systolic blood pressure 119 mm[Hg] Uriel Gunter MD Work Phone: [facility] 05-29-2023 12:40-0400 Body height 175.3 cm Uriel Gunter MD Work Phone: [facility] 05-29-2023 12:40-0400 Body temperature 97.2 [degF] Uriel Gunter MD Work Phone: [facility] 05-29-2023 12:40-0400 Body weight 87.45 kg Uriel Gunter MD Work Phone: [facility] 05-29-2023 12:40-0400 Diastolic blood pressure 49 mm[Hg] Uriel Gunter MD Work Phone: [facility] 05-29-2023 12:40-0400 Heart rate 56 /min Uriel Gunter MD Work Phone: [facility] 05-29-2023 12:40-0400 Respiratory rate 16 /min Uriel Gunter MD Work Phone: [facility] 05-29-2023 12:40-0400 SaO2% (BldA) [Mass fraction] 98 % Uriel Gunter MD Work Phone: [facility] 05-29-2023 12:40-0400 Systolic blood pressure 136 mm[Hg] Uriel Gunter MD Work Phone: [facility] 12-05-2022 13:00-0400 Body height 175.3 cm Uriel Gunter MD Work Phone: [facility] 12-05-2022 13:00-0400 Body temperature 97.11 [degF] Uriel Gunter MD Work Phone: [facility] 12-05-2022 13:00-0400 Body weight 85.55 kg Uriel Gunter MD Work Phone: [facility] 12-05-2022 13:00-0400 Diastolic blood pressure 58 mm[Hg] Uriel Gunter MD Work Phone: [facility] 12-05-2022 13:00-0400 Heart rate 60 /min Uriel Gunter MD Work Phone: [facility] 12-05-2022 13:00-0400 Respiratory rate 18 /min Uriel Gunter MD Work Phone: [facility] 12-05-2022 13:00-0400 SaO2% (BldA) [Mass fraction] 97 % Uriel Gunter MD Work Phone: [facility] 12-05-2022 13:00-0400 Systolic blood pressure 135 mm[Hg] Uriel Gunter MD Work Phone: [facility] 09-12-2022 15:00-0500 Body height 175.3 cm Uriel Gunter MD Work Phone: [facility] 09-12-2022 15:00-0500 Body temperature 97.59 [degF] Uriel Gunter MD Work Phone: [facility] 09-12-2022 15:00-0500 Body weight 87.82 kg Uriel Gunter MD Work Phone: [facility] 09-12-2022 15:00-0500 Diastolic blood pressure 53 mm[Hg] Uriel Gunter MD Work Phone: [facility] 09-12-2022 15:00-0500 Heart rate 67 /min Uriel Gunter MD Work Phone: [facility] 09-12-2022 15:00-0500 Respiratory rate 18 /min Uriel Gunter MD Work Phone: [facility] 09-12-2022 15:00-0500 SaO2% (BldA) [Mass fraction] 97 % Uriel Gunter MD Work Phone: [facility] 09-12-2022 15:00-0500 Systolic blood pressure 123 mm[Hg] Uriel Gunter MD Work Phone: [facility] 06-20-2022 12:37-0400 Body height 175.[address] KIL[employer] WORKER[employer] T[employer]NER Work Phone: [facility] 06-20-2022 12:37-0400 Body temperature 97.11 [degF] Becca [address] KILN WORKER[employer] T[employer]NER Work Phone: [facility] 06-20-2022 12:37-0400 Body weight 89.[address] [employer] WORKER[employer]NER Work Phone: [facility] 06-20-2022 12:37-0400 Diastolic blood pressure 52 mm[Hg] Becca [address] KILN WORKER[employer]SH[employer] TURNER Work Phone: [facility] 06-20-2022 12:37-0400 Heart rate 79 /min [address]cca [address] KILN WORKER[employer]NER Work Phone: [facility] 06-20-2022 12:37-0400 Respiratory rate 16 /min [address]cca [address] KILN WORKER[employer]SH[employer] T[employer]NER Work Phone: [facility] 06-20-2022 12:37-0400 SaO2% (BldA) [Mass fraction] 97 % [address] KILN WORKER[employer]SH[employer] TURNER Work Phone: [facility] 06-20-2022 12:37-0400 Systolic blood pressure 152 mm[Hg] Becca Lane KILN WORKER[employer]SH[employer] TURNER Work Phone: [facility] 03-21-2022 12:49-0400 Body height 175.3 cm Uriel Gunter MD Work Phone: [facility] 03-21-2022 12:49-0400 Body temperature 97 [degF] Uriel Gunter MD Work Phone: [facility] 03-21-2022 12:49-0400 Body weight 88.81 kg Uriel Gunter MD Work Phone: [facility] 03-21-2022 12:49-0400 Diastolic blood pressure 54 mm[Hg] Uriel Gunter MD Work Phone: [facility] 03-21-2022 12:49-0400 Heart rate 65 /min Uriel Gunter MD Work Phone: [facility] 03-21-2022 12:49-0400 Respiratory rate 16 /min Uriel Gunter MD Work Phone: [facility] 03-21-2022 12:49-0400 SaO2% (BldA) [Mass fraction] 100 % Uriel Gunter MD Work Phone: [facility] 03-21-2022 12:49-0400 Systolic blood pressure 138 mm[Hg] Uriel Gunter MD Work Phone: [facility] 01-24-2022 12:42-0400 Body height 175.3 cm Uriel Gunter MD Work Phone: [facility] 01-24-2022 12:42-0400 Body temperature 98.01 [degF] Uriel Gunter MD Work Phone: [facility] 01-24-2022 12:42-0400 Body weight 88.91 kg Uriel Gunter MD Work Phone: [facility] 01-24-2022 12:42-0400 Diastolic blood pressure 50 mm[Hg] Uriel Gunter MD Work Phone: [facility] 01-24-2022 12:42-0400 Heart rate 64 /min Uriel Gunter MD Work Phone: [facility] 01-24-2022 12:42-0400 Respiratory rate 18 /min Uriel Gunter MD Work Phone: [facility] 01-24-2022 12:42-0400 SaO2% (BldA) [Mass fraction] 98 % Uriel Gunter MD Work Phone: [facility] 01-24-2022 12:42-0400 Systolic blood pressure 136 mm[Hg] Uriel Gunter MD Work Phone: [facility] Encounters Encounter Date Encounter Type Care Provider Facility Start: 02-27-2025 End: 02-27-2025 Refill Uriel Gunter MD Work Phone: [facility] Comment on above: Refill Request Start: 02-19-2025 End: 02-19-2025 Follow-up encounter Uriel Gunter MD Work Phone: Hematology/Oncology Comment on above: Results Start: 02-17-2025 End: 02-17-2025 Patient encounter procedure Uriel Gunter MD Work Phone: Hematology/Oncology Start: 02-17-2025 End: 02-17-2025 ambulatory Chair 12 Preble Work Phone: Hematology/Oncology Comment on above: Multiple myeloma not having achieved remission (HCC) (Primary Dx); Paget disease of bone Multiple myeloma not having achieved remission (HCC) (Primary Dx); Paget disease of bone; H/O ulcerative colitis; Stage 3b chronic kidney disease (HCC) Start: 12-11-2024 End: 12-11-[address] [facility] Work Phone: [facility] Comment on above: Refill Request Start: 11-20-2024 End: 11-20-2024 Evaluation and management of inpatient MARY ZARATE [facility] Start: 11-20-2024 End: 11-20-2024 Evaluation and management of inpatient BERNARDO STAPLETON [facility] Start: 11-19-2024 End: 11-19-2024 ambulatory [facility] Pat Phone Call Provider 1 [facility] - Pre Admit Start: 11-19-2024 End: 11-19-2024 ambulatory BERNARDO Rachel [facility]AP[facility] Start: 11-17-2024 End: 11-17-2024 Refill Uriel Gunter MD Work Phone: [facility] Comment on above: Refill Request Start: 10-30-2024 End: 10-30-2024 Evaluation and management of inpatient EDGAR JUSTICE [facility] Start: 10-30-2024 End: 10-30-2024 Evaluation and management of inpatient BERNARDO STAPLETON [facility] Start: 10-10-2024 End: 10-10-[address] [facility] Work Phone: [facility] Comment on above: Refill Request Start: 10-09-2024 End: 10-09-2024 ambulatory MARY ZARATE [facility] Start: 10-09-2024 Encounter for other preprocedural examination HANNA MATHIAS [facility] Start: 10-09-2024 End: 10-09-2024 Patient encounter procedure [facility] Pre-Admission Testing 2 [facility] - Pre Admit Comment on above: Preop examination (P rimary Dx) Start: 10-09-2024 End: 10-09-2024 Preprocedural examination done [facility] 2 [facility] Start: 09-11-2024 End: 09-11-2024 Refill Uriel Gunter MD Work Phone: [facility] Comment on above: Refill Request Start: 08-11-2024 End: 08-11-2024 Refill Ureil Gunter MD Work Phone: [facility] Comment on above: Refill Request Start: 07-25-2024 End: 07-25-2024 ambulatory Ainsley YoungerNamkristi [facility] Work Phone: [facility] Start: 07-25-2024 End: 07-25-2024 E-mail encounter from caregiver Ainsley Woodson [facility] Work Phone: [facility] Start: 06-30-2024 End: 06-30-2024 Refill Uriel Gunter MD Work Phone: [facility] Comment on above: Refill Request Start: 06-04-2024 End: 06-04-2024 Refill Uriel Gunter MD Work Phone: [facility] Comment on above: Refill Request Start: 05-29-2024 End: 05-29-2024 Telephone encounter Juan Ferguson RN Work Phone: Hematology/Oncology Comment on above: Care Coordination (L ab Results) Start: 05-27-2024 End: 05-27-2024 Telephone encounter Latrice MAHAJAN-[employer] Work Phone: Hematology/Oncology Comment on above: Results Start: 05-27-2024 End: 05-27-2024 Office outpatient visit 15 minutes Latrice MAHAAJN-[employer] Work Phone: Hematology/Oncology Comment on above: Multiple myeloma not having achieved remission (HCC) (Primary Dx); Type 2 diabetes mellitus without complication, with long-term current use of insulin (HCC) Start: 05-27-2024 End: 05-27-2024 ambulatory [facility] Facility:[facility] Start: 05-20-2024 End: 05-20-2024 Telephone encounter Latrice MAHAJAN-[employer] Work Phone: Hematology/Oncology Comment on above: Lab Orders Start: 05-09-2024 Refill Ainsley Griffin uhmaira [facility] Work Phone: [facility] Comment on above: Refill Request Start: 04-08-2024 Refill Uriel Gunter MD Work Phone: [facility] Comment on above: Refill Request Start: 03-06-2024 Refill Uriel Gunter MD Work Phone: [facility] Comment on above: Refill Request Start: 02-29-2024 Telephone encounter Juan escalante RN Work Phone: Hematology/Oncology Comment on above: Care Coordination (L abs) Start: 02-26-2024 End: 02-26-2024 Patient encounter procedure Uriel Gunter MD Work Phone: Hematology/Oncology Start: 02-26-2024 End: 02-26-2024 ambulatory Chair Molly Yepez Work Phone: Hematology/Oncology Comment on above: [...] antigen (PSA) Start: 02-06-2024 Refill Ainsley YoungerNamsaida tobias [facility] Work Phone: [facility] Comment on above: Refill Request (revl imid) Start: 01-28-20[address] [facility] Work Phone: [facility] Comment on above: Refill Request Start: 01-08-2024 Refill Uriel Gunter MD Work Phone: [facility] Comment on above: Refill Request Start: 12-10-2023 [address] [facility] Work Phone: [facility] Comment on above: Refill Request Start: 11-27-2023 End: 11-27-[address] APRN.SHOE TURNER Work Phone: Hematology/Oncology Comment on above: Multiple myeloma not having achieved remission (HCC) (Primary Dx); Paget disease of bone; Type 2 diabetes mellitus without complication, with long-term current use of insulin (HCC); H/O ulcerative colitis; Elevated prostate specific antigen (PSA); Stage 3b chronic kidney disease (HCC) Start: 11-27-2023 End: 11-27-2023 Patient encounter [address]cca [address] APRN.SHOE TURNER Work Phone: [facility] Start: 11-23-2023 Telephone encounter Uriel mcdaniels MD Work Phone: Hematology/Oncology Comment on above: Lab Orders Start: 11-15-2023 Refill Aiden Hatfield MD Work Phone: [facility] Comment on above: Refill Request Start: 08-28-2023 End: 08-28-2023 ambulatory Chair Molly EllingtonPreble Work Phone: Hematology/Oncology Comment on above: Multiple [...] encounter procedure Uriel Gunter MD Work Phone: [facility] Start: 08-20-2023 Refill Uriel Gunter MD Work Phone: [facility] Comment on above: Refill Request Start: 07-18-2023 Refill Ainsley YoungerDelisa collado [facility] Work Phone: [facility] Comment on above: Refill Request Start: 05-31-2023 Telephone encounter Bozena Peña Hematology/Oncology Comment on above: Results Start: [...] encounter procedure Uriel Gunter MD Work Phone: [facility] Start: 04-18-2023 Refill Aiden Hatfield MD Work Phone: [facility] Comment on above: Refill Request Start: 02-27-2023 Telephone encounter Uriel mcdaniels MD Work Phone: Hematology/Oncology Comment on above: Lab Orders Start: 02-05-[address] [facility] Work Phone: [facility] Comment on above: Refill Request Start: 12-28-2022 Refill Ainsley Griffin ick [facility] Work Phone: [facility] Comment on above: Refill Request Start: 12-19-2022 Refill Ainsley Griffin ick [facility] Work Phone: [facility] Comment on above: Refill Request Start: 12-05-2022 End: 12-05-[address] Work Phone: Hematology/Oncology Comment on above: Multiple myeloma, re mission status unspecified (HCC) (Primary Dx) Multiple myeloma not having achieved remission (HCC) (Primary Dx); Paget disease of bone; Type 2 diabetes mellitus without complication, with long-term current use of insulin (HCC); Elevated prostate specific antigen (PSA) Start: 12-05-2022 End: 12-05-2022 Patient encounter procedure Uriel Gunter MD Work Phone: [facility] Start: 11-27-2022 Telephone encounter Uriel mcdaniels MD Work Phone: Hematology/Oncology Comment on above: Lab Orders Start: 11-16-[address] [facility] Work Phone: [facility] Comment on above: Refill Request Start: 10-16-2022 Refill Ainsley Girffin ick [facility] Work Phone: [facility] Comment on above: Refill Request Start: 09-21-2022 Refill Ainsley YoungerKitr ick [facility] Work Phone: Hematology/Oncology Comment on above: [...] Uriel Gunter MD Work Phone: [facility] Start: 08-28-2022 End: 08-29-[address] HNANA MATHIAS Facility: Start: 08-11-2022 Refill Ainsley Griffin ick [facility] Work Phone: Hematology/Oncology Comment on above: [...] Start: 06-20-2022 End: 06-20-[address] APRN.[facility] Work Phone: [facility] Start: 06-16-[address]22 [address] [facility] Work Phone: [facility] Comment on above: Refill Request Start: 06-15-2022 Telephone encounter Uriel mcdaniels MD Work Phone: Hematology/Oncology Comment on above: Lab Orders Start: 05-19-2022 Refill Ainsley YoungerKitsaida ick [facility] Work Phone: Hematology/Oncology Comment on above: Refill Request Start: 04-20-[address] [facility] Work Phone: [facility] Comment on above: Refill Request Start: 2022 Refill Quita Antoine [facility] Work Phone: [facility] Comment on above: Refill Request (ansley lidomide) Top Knitter - [facility] ther ([facility]) Start: 03-24-2022 Telephone encounter Funmilayo Arriola [...] Start: 03-21-2022 End: 03-21-2022 Patient encounter procedure Urile Gunter MD Work Phone: [facility] Start: 03-15-2022 End: 03-15-[address] HANNA MATHIAS Facility:[facility] Start: 03-14-2022 End: 03-15-[address] HANNA MATHIAS Facility:[facility] Start: 02-24-2022 Refill Ainsley Gaby collado [facility] Work Phone: Hematology/Oncology Comment on above: Refill Request Start: 01-30-2022 Refill Quita Antoine [facility] Work Phone: [facility] Comment on above: [...] encounter procedure Uriel Gunter MD Work Phone: [facility] Start: 01-02-[address] [facility] Work Phone: [facility] Comment on above: Refill Request Start: 12-20-2021 End: 12-21-[address] ROXANA LEWIS Facility:[facility] Start: 11-10-2021 End: 11-11-[address] ROXANA LEWIS Facility:[facility] Start: 09-12-2021 End: 09-12-[address] HANNA MATHIAS Facility:[facility] Start: 09-10-2021 End: 09-11-[address] HANNA MATHIAS Facility:[facility] Start: 07-13-2018 End: 07-16-2018 Evaluation and management of inpatient HANNA MATHIAS Facility:[facility] Procedures Date Procedure Procedure Detail Performing Clinician Start: 03-21-2022 Adult depression scr eening assessment Uriel Gunter MD Work Phone: Start: 03-14-[address] ROLA MATHIAS Comment on above: Performed By: #### P SASC #### [facility] [address] [place] [address] Dr. Tigre Gant Start: 11-10-[address] ROLA MATHIAS Comment on above: Performed By: #### P SAD #### [facility] [address] [address] [address] Tigre Gant Start: 08-16-2021 Adult depression scr eening assessment Porsche Adame [facility] Work Phone: Start: 07-16-2018 REPOSITION R UP FEMU R WITH INTRAMED FIX, PERC APPROACH DANIELA ANTONY Start: 07-13-2018 INTRODUCTION OF SERUM/TOX/VACCINE INTO MUSCLE, PERC APPROACH FARNCIS SAVAGE Start: 07-13-2018 Antibody screen HANNA MATHIAS Comment on above: Performed By: #### 6 [id number] #### [address] Plan of Treatment Date Care Activity Detail Author Start: 02-17-2026 Complete blood count Hemoglobin/Shaheen tocrit [facility] Start: 02-17-2026 Creatinine measurement Serum Creatin ine [facility] Start: 11-20-2025 Tobacco Screening Tobacco Screening [facility] Start: 10-09-2025 Tobacco Screening Tobacco Screening [facility] Start: 08-18-2025 End: 08-18-2025 Follow-up encounter Hematology/Oncology Comment on above: 6 month [facility] Start: 08-18-2025 End: 08-18-2025 Patient encounter procedure 08/18/2025 10:15 AM EST Office Visit [facility] [address] [place] [address] [place] [address] 6 month follow up with lab [facility] Comment on above: 6 month [facility] up [facility] Start: 05-27-2025 Complete blood count Hemoglobin/Shaheen tocrit [facility] Start: 05-27-2025 Creatinine measurement Serum Creatin ine [facility] Start: 05-25-2025 Influenza vaccination Influenz a Vaccine (Season Ended) [facility] Start: 02-25-2025 Complete blood count Hemoglobin/Shaheen [facility] Start: 02-25-2025 Creatinine measurement Serum Creatin ine [facility] Start: 02-17-2025 End: 05-19-2025 MONOCLONAL PROTEIN, SERUM (BLOOD) [facility] Comment on above: Expected: 02/17/2025 , Expires: 05/19/2025 Start: 02-17-2025 End: 05-19-2025 PROT ELECT SERUM WITH TOÑITO AND INTERP [facility] Work Phone: Comment on above: Expected: 02/17/2025 , Expires: 05/19/2025 Start: 01-03-2025 Covid-19 Vaccine (10 - Mixed Product risk season) Covid-19 Vaccine (10 - Mixed Product risk season) [facility] Start: 11-26-2024 Complete blood count Hemoglobin/Shaheen tocmot [facility] Start: 11-26-2024 Creatinine measurement Serum Creatin ine [facility] Start: 11-20-2024 End: 11-20-2024 Admission to same day surgery center 11/20/2024 9:45 AM EST - 11/20/2024 10:30 AM EST Surgery [facility] - Surgery [address] [place] [id number] Bernardo Stapleton MD [address] [place] [address] EXTRACTION CATARACT INTRAOCULAR LENS [18446 (CPT )] [facility] Comment on above: EXTRACTION CATARACT INTRAOCULAR LENS [39963 (CPT )] Start: 11-20-2024 Subsequent hospital visit by physician 11/20/2024 9:45 AM EST Hospital Encounter [facility] [address] [place] [id number] Bernardo Stapleton MD [address] [place] [address] [phone] [facility] Start: 11-20-2024 End: 11-20-2024 Xcapsl ctrc rmvl insj io lens prosth w/o ecp [facility] Start: 11-19-2024 End: 11-19-2024 ambulatory 11/19/2024 3:50 PM EST Support Visit [facility] - Pre Admit [address] [place] [phone] [facility] Start: 10-30-2024 End: 10-30-2024 Admission to same day surgery center 10/30/2024 9:45 AM EST - 10/30/2024 10:30 AM EST Surgery [facility] [address] [place] [address] Bernardo Stapleton MD [address] [place] [address] [id number] EXTRACTION CATARACT INTRAOCULAR LENS [37195 (CPT )] [facility] Comment on above: EXTRACTION CATARACT INTRAOCULAR LENS [06111 (CPT )] Start: 10-30-2024 Subsequent hospital visit by physician 10/30/2024 9:45 AM EST Hospital Encounter [facility] [address] [place] [address] Bernardo Stapleton MD [address] [place] [id number] [facility] Start: 10-30-2024 End: 10-30-2024 Xcapsl ctrc rmvl insj io lens prosth w/o ecp EXTRACTION CATARACT INTRAOCULAR LENS cataract right eye 10/30/2024 9:45 AM EST [facility] Start: 09-24-2024 Advance Directive Discussion Advance Directive Discussion [facility] Start: 08-28-2024 Complete blood count Hemoglobin/Shaheen tocrit [facility] Start: 08-28-2024 Creatinine measurement Serum Creatin ine [facility] Start: 08-28-2024 Hemoglobin/Hematocrit Hemoglobin/Hem atocrit [facility] Start: 08-28-2024 Serum Creatinine Serum Creatinine Cl [facility] Start: 08-26-2024 End: 11-25-2024 CBC W Auto Differential panel - Blood COMPLETE BLOOD COUNT AND DIFFERENTIAL Lab Routine Multiple myeloma not having achieved remission (HCC) Expected: 08/26/2024 (Approximate), Expires: 11/25/2024 [facility] Comment on above: Expected: 08/26/2024 (Approximate), Expires: 11/25/2024 Start: 08-26-2024 End: 11-25-2024 Comprehensive metabolic 2000 panel - Serum or Plasma COMPREHENSIVE METABOLIC PANEL Lab Routine Multiple myeloma not having achieved remission (HCC) Expected: 08/26/2024 (Approximate), Expires: 11/25/2024 [facility] Work Phone: Comment on above: Expected: 08/26/2024 (Approximate), Expires: 11/25/2024 Start: 08-26-2024 End: 11-25-2024 KAPPA/DANIELS,FREE,SER KAPPA/DANIELS,FREE,SER Lab Routine Multiple myeloma not having achieved remission (HCC) Expected: 08/26/2024 (Approximate), Expires: 11/25/2024 [facility] Comment on above: Expected: 08/26/2024 (Approximate), Expires: 11/25/2024 Start: 08-26-2024 End: 11-25-2024 MONOCLONAL PROTEIN, SERUM (BLOOD) MONOCLONAL PROTEIN, SERUM (BLOOD) Lab Routine Multiple myeloma not having achieved remission (HCC) Expected: 08/26/2024 (Approximate), Expires: 11/25/2024 [facility] Comment on above: Expected: 08/26/2024 (Approximate), Expires: 11/25/2024 Start: 08-26-2024 End: 11-25-2024 PROTEIN ELECTROPHORESIS SERUM W/INTERP PROTEIN ELECTROPHORESIS SERUM W/INTERP Lab Routine Multiple myeloma not having achieved remission (HCC) Expected: 08/26/2024 (Approximate), Expires: 11/25/2024 [facility] Comment on above: Expected: 08/26/2024 (Approximate), Expires: 11/25/2024 Start: 08-26-2024 End: 08-26-2024 Follow-up encounter Hematology/Oncology Comment on above: 3 month follow up wi th lab and aredia Start: 08-26-2024 End: 08-26-2024 Patient encounter procedure [facility] Comment on above: 3 month follow up wi th lab and aredia Start: 05-29-2024 HEMOGLOBIN/HEMATOCRIT HEMOGLOBIN/HEM ATOCRIT [facility] Start: 05-29-2024 SERUM CREATININE SERUM CREATININE [facility] Start: 05-27-2024 End: 05-27-2024 Follow-up encounter Hematology/Oncology Comment on above: 3 month follow up wi th lab and aredia Start: 05-27-2024 End: 05-27-2024 Patient encounter procedure 05/27/2024 12:45 PM EDT Office Visit [facility] [address] [place] [address] [place] [address] 3 month follow up with lab and aredia [facility] Comment on above: 3 month follow up wi th lab and aredia Start: 05-25-2024 Covid-19 Vaccine ( season) Covid-19 Vaccine () [facility] Start: 05-25-2024 Covid-19 Vaccine () Covid-19 Vaccine () [facility] Start: 05-25-2024 Influenza vaccination C [facility] Start: 05-20-2024 End: 08-19-2024 CBC W Auto Differential panel - Blood COMPLETE BLOOD COUNT AND DIFFERENTIAL Lab Routine Multiple myeloma not having achieved remission (HCC) Expected: 05/20/2024, Expires: 08/19/2024 [facility] Comment on above: Expected: 05/20/2024 , Expires: 08/19/2024 Start: 05-20-2024 End: 08-19-2024 Comprehensive metabolic 2000 panel - Serum or Plasma COMPREHENSIVE METABOLIC PANEL Lab Routine Multiple myeloma not having achieved remission (HCC) Expected: 05/20/2024, Expires: 08/19/2024 [facility] Work Phone: Comment on above: Expected: 05/20/2024 , Expires: 08/19/2024 Start: 05-20-2024 End: 08-19-2024 MONOCLONAL PROTEIN, SERUM (BLOOD) MONOCLONAL PROTEIN, SERUM (BLOOD) Lab Routine Multiple myeloma not having achieved remission (HCC) Expected: 05/20/2024, Expires: 08/19/2024 [facility] Comment on above: Expected: 05/20/2024 , Expires: 08/19/2024 Start: 05-20-2024 End: 08-19-2024 PROTEIN ELECTROPHORESIS SERUM W/INTERP PROTEIN ELECTROPHORESIS SERUM W/INTERP Lab Routine Multiple myeloma not having achieved remission (HCC) Expected: 05/20/2024, Expires: 08/19/2024 [facility] Comment on above: Expected: 05/20/2024 , Expires: 08/19/2024 Start: 03-06-2024 HEMOGLOBIN/HEMATOCRIT HEMOGLOBIN/HEM ATOCRIT [facility] Start: 03-06-2024 SERUM CREATININE SERUM CREATININE [facility] Start: 02-26-2024 End: 02-26-2024 Follow-up encounter Hematology/Oncology Comment on above: 3 month follow up wi th lab and aredia Start: 02-26-2024 End: 02-26-2024 Patient encounter procedure 02/26/2024 1:00 PM EDT Office Visit [facility] [address] [place] [address] [place] [address] 3 month follow up with lab and aredia [facility] Comment on above: 3 month follow up wi th lab and aredia Start: 01-02-2024 End: 04-02-2024 MONOCLONAL PROTEIN, SERUM (BLOOD) MONOCLONAL PROTEIN, SERUM (BLOOD) Lab Routine Multiple myeloma not having achieved remission (HCC) Paget disease of bone Type 2 diabetes mellitus without complication, with long-term current use of insulin (HCC) H/O ulcerative colitis Elevated prostate specific antigen (PSA) Stage 3b chronic kidney disease (HCC) Expected: 01/02/2024, Expires: 04/02/2024 [facility] Work Phone: Comment on above: Expected: 01/02/2024 [...] kidney disease (HCC) Expected: 12/05/2023, Expires: 03/05/2024 [facility] Work Phone: Comment on above: Expected: 12/05/2023 [...] kidney disease (HCC) Expected: 12/05/2023, Expires: 03/05/2024 [facility] Work Phone: Comment on above: Expected: 12/05/2023 , Expires: 03/05/2024 Start: 12-05-2023 End: 03-05-2024 PROT ELECT SERUM WITH TOÑITO AND INTERP PROT ELECT SERUM WITH TOÑITO AND INTERP Lab Routine Multiple myeloma not having achieved remission (HCC) Expected: 12/05/2023, Expires: 03/05/2024 [facility] Work Phone: Comment on above: Expected: 12/05/2023 , Expires: 03/05/2024 Start: 11-26-2023 End: 02-25-2024 Basic metabolic 2000 panel - Serum or Plasma BASIC METABOLIC PNL Lab Routine Multiple myeloma not having achieved remission (HCC) Expected: 11/26/2023, Expires: 02/25/2024 [facility] Work Phone: Comment on above: Expected: 11/26/2023 , Expires: 02/25/2024 Start: 11-26-2023 End: 02-25-2024 CBC W Auto Differential panel - Blood CBC + DIFF Lab Routine Multiple myeloma not having achieved remission (HCC) Expected: 11/26/2023, Expires: 02/25/2024 [facility] Work Phone: Comment on above: Expected: 11/26/2023 , Expires: 02/25/2024 Start: 11-26-2023 End: 02-25-2024 MONOCLONAL PROTEIN, SERUM (BLOOD) MONOCLONAL PROTEIN, SERUM (BLOOD) Lab Routine Multiple myeloma not having achieved remission (HCC) Expected: 11/26/2023, Expires: 02/25/2024 [facility] Work Phone: Comment on above: Expected: 11/26/2023 , Expires: 02/25/2024 Start: 11-26-2023 End: 02-25-2024 PROT ELECT SERUM WITH TOÑITO AND INTERP PROT ELECT SERUM WITH TOÑITO AND INTERP Lab Routine Multiple myeloma not having achieved remission (HCC) Expected: 11/26/2023, Expires: 02/25/2024 [facility] Work Phone: Comment on above: Expected: 11/26/2023 , Expires: 02/25/2024 Start: 09-24-2023 Advance Directive Discussion Advance Directive Discussion [facility] Start: 09-24-2023 Behavioral Health Screening Behavioral Health Screening [facility] Start: 09-24-2023 Depression Assessment Depression Ass essment [facility] Start: 09-01-2023 Covid-19 Vaccine () Covid-19 Vaccine () [facility] Start: 08-28-2023 End: 11-27-2023 MONOCLONAL PROTEIN, SERUM (BLOOD) [facility] Work Phone: Comment on above: Expected: 08/28/2023 , Expires: 11/27/2023 Start: 08-28-2023 End: 11-27-2023 PROT ELECT SERUM WITH TOÑITO AND INTERP [facility] Work Phone: Comment on above: Expected: 08/28/2023 , Expires: 11/27/2023 Start: 05-25-2023 Covid-19 Vaccine () Covid-19 Vaccine () [facility] Start: 05-25-2023 Influenza vaccination [facility] Start: 03-21-2023 Adult depression screening assessment DEPRESSION SCREENING [facility] Start: 03-06-2023 End: 05-06-2023 CBC W Auto Differential panel - Blood CBC + DIFF Lab Routine Multiple myeloma not having achieved remission (HCC) Expected: 03/06/2023, Expires: 05/06/2023 [facility] Work Phone: Comment on above: Expected: 03/06/2023 , Expires: 05/06/2023 Start: 03-06-2023 End: 05-06-2023 Comprehensive metabolic 2000 panel - Serum or Plasma COMP METABOLIC PANEL Lab Routine Multiple myeloma not having achieved remission (HCC) Expected: 03/06/2023, Expires: 05/06/2023 [facility] Work Phone: Comment on above: Expected: 03/06/2023 , Expires: 05/06/2023 Start: 03-06-2023 End: 05-06-2023 MONOCLONAL PROTEIN, SERUM (BLOOD) MONOCLONAL PROTEIN, SERUM (BLOOD) Lab Routine Multiple myeloma not having achieved remission (HCC) Expected: 03/06/2023, Expires: 05/06/2023 [facility] Work Phone: Comment on above: Expected: 03/06/2023 , Expires: 05/06/2023 Start: 03-06-2023 End: 05-06-2023 PROT ELECT SERUM WITH TOÑITO AND INTERP PROT ELECT SERUM WITH TOÑITO AND INTERP Lab Routine Multiple myeloma not having achieved remission (HCC) Expected: 03/06/2023, Expires: 05/06/2023 [facility] Work Phone: Comment on above: Expected: 03/06/2023 , Expires: 05/06/2023 Start: 12-05-2022 End: 02-04-2023 CBC W Auto Differential panel - Blood CBC + DIFF Lab Routine Multiple myeloma not having achieved remission (HCC) Expected: 12/05/2022, Expires: 02/04/2023 [facility] Work Phone: Comment on above: Expected: 12/05/2022 , Expires: 02/04/2023 Start: 12-05-2022 End: 02-04-2023 Comprehensive metabolic 2000 panel - Serum or Plasma COMP METABOLIC PANEL Lab Routine Multiple myeloma not having achieved remission (HCC) Expected: 12/05/2022, Expires: 02/04/2023 [facility] Work Phone: Comment on above: Expected: 12/05/2022 , Expires: 02/04/2023 Start: 12-05-2022 End: 02-04-2023 MONOCLONAL PROTEIN, SERUM (BLOOD) MONOCLONAL PROTEIN, SERUM (BLOOD) Lab Routine Multiple myeloma not having achieved remission (HCC) Expected: 12/05/2022, Expires: 02/04/2023 [facility] Work Phone: Comment on above: Expected: 12/05/2022 , Expires: 02/04/2023 Start: 12-05-2022 End: 02-04-2023 PROT ELECT SERUM WITH TOÑITO AND INTERP PROT ELECT SERUM WITH TOÑITO AND INTERP Lab Routine Multiple myeloma not having achieved remission (HCC) Expected: 12/05/2022, Expires: 02/04/2023 [facility] Work Phone: Comment on above: Expected: 12/05/2022 , Expires: 02/04/2023 Start: 09-24-2022 ADVANCE DIRECTIVE DISCUSSION ADVANCE DIRECTIVE DISCUSSION [facility] Start: 09-24-2022 DEPRESSION ASSESSMENT DEPRESSION ASS ESSMENT [facility] Start: 09-12-2022 End: 11-12-2022 CBC W Auto Differential panel - Blood CBC + DIFF Lab Routine Multiple myeloma not having achieved remission (HCC) Paget disease of bone Type 2 diabetes mellitus without complication, with long-term current use of insulin (HCC) Elevated prostate specific antigen (PSA) Expected: 09/12/2022, Expires: 11/12/2022 [facility] Work Phone: Comment on above: Expected: 09/12/2022 , Expires: 11/12/2022 Start: 09-12-2022 End: 11-12-2022 Comprehensive metabolic 2000 panel - Serum or Plasma COMP METABOLIC PANEL Lab Routine Multiple myeloma not having achieved remission (HCC) Paget disease of bone Type 2 diabetes mellitus without complication, with long-term current use of insulin (HCC) Elevated prostate specific antigen (PSA) Expected: 09/12/2022, Expires: 11/12/2022 [facility] Work Phone: Comment on above: Expected: 09/12/2022 , Expires: 11/12/2022 Start: 09-12-2022 End: 11-12-2022 MONOCLONAL PROTEIN, SERUM (BLOOD) MONOCLONAL PROTEIN, SERUM (BLOOD) Lab Routine Multiple myeloma not having achieved remission (HCC) Paget disease of bone Type 2 diabetes mellitus without complication, with long-term current use of insulin (HCC) Elevated prostate specific antigen (PSA) Expected: 09/12/2022, Expires: 11/12/2022 [facility] Work Phone: Comment on above: Expected: 09/12/2022 , Expires: 11/12/2022 Start: 09-12-2022 End: 11-12-2022 PROT ELECT SERUM WITH TOÑITO AND INTERP PROT ELECT SERUM WITH TOÑITO AND INTERP Lab Routine Multiple myeloma not having achieved remission (HCC) Paget disease of bone Type 2 diabetes mellitus without complication, with long-term current use of insulin (HCC) Elevated prostate specific antigen (PSA) Expected: 09/12/2022, Expires: 11/12/2022 [facility] Work Phone: Comment on above: Expected: 09/12/2022 , Expires: 11/12/2022 Start: 08-16-2022 Adult depression screening assessment DEPRESSION SCREENING [facility] Start: 08-03-2022 COVID-19 VACCINE (7 - Mixed Product risk series) COVID-19 VACCINE (7 - Mixed Product risk series) [facility] Start: 06-16-2022 End: 08-16-2022 CBC W Auto Differential panel - Blood CBC + DIFF Lab Routine Multiple myeloma not having achieved remission (HCC) Expected: 06/16/2022, Expires: 08/16/2022 [facility] Work Phone: Comment on above: Expected: 06/16/2022 , Expires: 08/16/2022 Start: 06-16-2022 End: 08-16-2022 Comprehensive metabolic 2000 panel - Serum or Plasma COMP METABOLIC PANEL Lab Routine Multiple myeloma not having achieved remission (HCC) Expected: 06/16/2022, Expires: 08/16/2022 [facility] Work Phone: Comment on above: Expected: 06/16/2022 , Expires: 08/16/2022 Start: 06-16-2022 End: 08-16-2022 MONOCLONAL PROTEIN, SERUM (BLOOD) MONOCLONAL PROTEIN, SERUM (BLOOD) Lab Routine Multiple myeloma not having achieved remission (HCC) Expected: 06/16/2022, Expires: 08/16/2022 [facility] Work Phone: Comment on above: Expected: 06/16/2022 , Expires: 08/16/2022 Start: 06-16-2022 End: 08-16-2022 PROT ELECT SERUM WITH TOÑITO AND INTERP PROT ELECT SERUM WITH TOÑITO AND INTERP Lab Routine Multiple myeloma not having achieved remission (HCC) Expected: 06/16/2022, Expires: 08/16/2022 [facility] Work Phone: Comment on above: Expected: 06/16/2022 , Expires: 08/16/2022 Start: 05-25-2022 Influenza vaccination INFLUENZA (#1) [facility] Start: 05-15-2022 COVID-19 VACCINE (5 - Booster) COVID-19 VACCINE (5 - Booster) [facility] Start: 03-23-2022 End: 05-23-2022 CBC W Auto Differential panel - Blood CBC + DIFF Lab Routine Multiple myeloma not having achieved remission (HCC) Expected: 03/23/2022, Expires: 05/23/2022 [facility] Work Phone: Comment on above: Expected: 03/23/2022 , Expires: 05/23/2022 Start: 03-23-2022 End: 05-23-2022 Comprehensive metabolic 2000 panel - Serum or Plasma COMP METABOLIC PANEL Lab Routine Multiple myeloma not having achieved remission (HCC) Expected: 03/23/2022, Expires: 05/23/2022 [facility] Work Phone: Comment on above: Expected: 03/23/2022 , Expires: 05/23/2022 Start: 03-23-2022 End: 05-23-2022 MONOCLONAL PROTEIN, SERUM (BLOOD) MONOCLONAL PROTEIN, SERUM (BLOOD) Lab Routine Multiple myeloma not having achieved remission (HCC) Expected: 03/23/2022, Expires: 05/23/2022 [facility] Work Phone: Comment on above: Expected: 03/23/2022 , Expires: 05/23/2022 Start: 03-23-2022 End: 05-23-2022 PROT ELECT SERUM WITH TOÑITO AND INTERP PROT ELECT SERUM WITH TOÑITO AND INTERP Lab Routine Multiple myeloma not having achieved remission (HCC) Expected: 03/23/2022, Expires: 05/23/2022 [facility] Work Phone: Comment on above: Expected: 03/23/2022 , Expires: 05/23/2022 Start: 03-10-2022 COVID-19 VACCINE (5 - Booster) COVID-19 VACCINE (5 - Booster) [facility] Start: 09-28-2021 COVID-19 VACCINE (4 - Booster) COVID-19 VACCINE (4 - Booster) [facility] Start: 09-24-2021 ADVANCE DIRECTIVE DISCUSSION ADVANCE DIRECTIVE DISCUSSION [facility] Start: 09-24-2021 DEPRESSION ASSESSMENT DEPRESSION ASS ESSMENT [facility] Start: 2012 Fall Risk Screening Fall Risk Screen [facility] Start: 2012 PNEUMOVAX AGE 65 AND OVER WITH 5YR LOOKBACK (#1) PNEUMOVAX AGE 65 AND OVER WITH 5YR LOOKBACK (#1) [facility] Start: 2007 Hepatitis B Vaccine (1 of 3 - Risk 3-dose series) Hepatitis B Vaccine (1 of 3 - Risk 3-dose series) [facility] Start: 2007 RSV Vaccine (1 - 1-d ose 60+ series) RSV Vaccine (1 - 1-dose 60+ series) [facility] Start: 1997 Administration of varicella zoster vaccine Zoster (Shingles) Vaccine (1 of 2) [facility] Start: 1997 SHINGRIX VACCINE (1 of 2) NICK GRIX VACCINE (1 of 2) [facility] Start: 1992 COLOGUARD (FIT-DNA) COLOGUARD (FIT-D NA) [facility] Start: 1992 Colonoscopy COLONOSCOPY [facility] Start: 1992 COLORECTAL CANCER SCREENING COLORECTAL CANCER SCREENING [facility] Start: [address] COLONOGRAPHY [facility] Start: 1992 FECAL OCCULT BLOOD FECAL OCCULT BLOO D [facility] Start: 1992 SIGMOIDOSCOPY SIGMOIDOSCOPY [facility] Start: 1966 DTaP,Tdap and Td Vac cines (1 - Tdap) DTaP,Tdap and Td Vaccines (1 - Tdap) [facility] Start: 1966 Pneumococcal Vaccine : 50+ (1 of 2 - PCV) Pneumococcal Vaccine: 50+ (1 of 2 - PCV) [facility] Start: 1966 SHINGRIX VACCINE (1 of 2) NICK GRIX VACCINE (1 of 2) [facility] Start: 1966 Urine microalbumin profile [facility] Start: 1965 ANNUAL PCP TEAM NEWSPAPER PHOTOJOURNALIST VINICIO DISEASE VISIT ANNUAL PCP TEAM CHRONIC DISEASE VISIT [facility] Start: 1965 Anxiety Screening Anxiety Screening [facility] Start: 1965 Depression Screening Depression Scre matt [facility] Start: 1965 Hepatitis B surface antibody level LDL CHOLESTEROL [facility] Start: 1965 HEPATITIS C SCREENING HEPATITIS C [facility] Start: 1965 Hepatitis C screening Hepatitis C [facility] Start: 1959 Depression Screening Depression Scre [facility] Start: 1957 3 comp foot exam completed DIABETIC FOOT EXAM [facility] Start: 1957 Diabetic foot examination Diabetic F oot Exam [facility] Start: 1957 Glaucoma screening Dilated Retinal E xam [facility] Start: 1957 Hepatitis B screening URINE AL BUMIN:CREATININE RATIO [facility] Start: 1957 Hepatitis C antibody , confirmatory test DILATED RETINAL EXAM [facility] Start: 1953 Pneumococcal Vaccine : 65+ (1 - PCV) Pneumococcal Vaccine: 65+ (1 - PCV) [facility] Start: 1953 Pneumococcal Vaccine : 65+ (1 of 2 - PCV) Pneumococcal Vaccine: 65+ (1 of 2 - PCV) [facility] Start: 1953 PNEUMOCOCCAL: 65+ (1 - PCV) PNEUMOCOCCAL: 65+ (1 - PCV) [facility] Start: 1952 Hemoglobin A1c measurement HbA1C [facility] Start: 1952 Hemoglobin A1c/Hemoglobin.total in Blood HBA1C [facility] Start: 1947 ABDOMINAL AORTIC ANE URYSM SCREENING ABDOMINAL AORTIC ANEURYSM SCREENING [facility] Immunizations Immunization Date Immunization Notes Care Provider Sangeetha huang 07-07-2023 respiratory syncytia l virus (RSV) vaccine, bivalent (ABRYSVO) Chair Yepez Work Phone: [facility] 06-28-2021 COVID-19 vaccine (UNSPECIFIED) Porsche Adame [facility] Work Phone: [facility] 06-28-2021 COVID-19 vaccine, ag e 12+ yr (PFIZER-A.P.PharmaNTDeparting - PURPLE TOP) Porsche Adame [facility] Work Phone: [facility] 06-16-2021 influenza, high-dose , quadrivalent vaccine (FLUZONE HIGH DOSE QUADRIVALENT) Porsche Adame [facility] Work Phone: [facility] 06-16-2021 influenza virus vacc ine, unspecified formulation Ainsley Woodson [facility] Work Phone: [facility] 11-11-2020 COVID-19 vaccine, ag e 12+ yr (PFIZER-BIONTECH - PURPLE TOP) Porsche Adame [facility] Work Phone: [facility] 10-22-2020 COVID-19 vaccine, ag e 12+ yr (PFIZER-BIONTECH - PURPLE TOP) Porsche Adame [facility] Work Phone: [facility] 07-05-2020 Seasonal trivalent influenza vaccine, adjuvanted, preservative free Porsche Adame [facility] Work Phone: [facility] 07-19-2016 influenza virus vacc ine, unspecified formulation Porsche Adame [facility] Work Phone: [facility] Payers Date Payer Category Payer Medicare MEDICARE MEDICAR E A AND B [id number] 2012-Present [phone] [place] [address] Medicare [id number] 2012 Medicare [id number] [facility] LIFE INSURANCE [id number] 2012 Unknown [employer] INSURANCE FORETHOUGHT SUPPLEMENT [id number] 2012-Present [phone] [address] [address] [place] [address] Indemnity [id number] 2012 Unknown [employer] INSURANCE FORETHOUGHT SUPPLEMENT [id number] 2012-Present [phone] [address] [address] [place] [address] Indemnity [id number] 1959 Medicare [id number] 1959 Unknown [id number] 1947 Unknown [id number] 2.16.840.1.327347.3.579. 2.647 1947 Unknown [id number] 2.16.840.1.085179.3.579. 2.593 1947 Unknown [id number] 2.16.840.1.742482.3.579. 2.593 1947 Unknown [id number] 2.16.840.1.947377.3.579. 2.593 1947 Unknown [id number] 2.16.840.1.197203.3.579. 2.593 1947 Unknown [id number] 2.16.840.1.895827.3.579. 2.593 1947 Unknown [id number] 2.16.840.1.243745.3.579. 2.593 1947 Unknown [id number] 2.16.840.1.960724.3.579. 2.593 1947 Unknown [id number] 2.16.840.1.097523.3.579. 2.593 1947 Unknown [id number] 2.16.840.1.904958.3.579. 2.1286 1947 Unknown [id number] 2.16.840.1.438385.3.579. 2.1286 1947 Unknown [id number] 2.16.840.1.864013.3.579. 2.1285 1947 Unknown [id number] 2.16.840.1.994734.3.579. 2.1286 1947 Unknown [id number] 2.16.840.1.623730.3.579. 2.1285 1947 Unknown [id number] 2.16.840.1.637814.3.579. 2.1286 1947 Unknown [id number] 2.16.840.1.965103.3.579. 2.128 1947 Unknown [id number] 2.16.840.1.712813.3.579. 2.1286 1947 Unknown [id number] 2.16.840.1.505504.3.579. 2.1286 Managed Care Other (unspecified) [id number] Medicare [id number] Social History Date Type Detail Facility [facility]20-[facility] Work Phone: Start: 09-24-1960 End: 09-24-1990 History of tobacco use Current smoker [facility] Work Phone: Start: 09-24-1960 End: 09-24-1990 History of tobacco use Cigarette Smoker [facility] Work Phone: Start: 11-28-2021 End: 02-26-2024 Alcohol intake Current non-drinker of alcohol (finding) [facility] Start: 1945 Sex Assigned At Not on file [facility] Start: 01-14-2022 End: 06-20-2022 Exposure to SARS-CoV-2 (event) Not sure [facility] Start: 10-20-2015 End: 03-06-2023 Cigarettes smoked current (pack per day) - Reported 2 [facility] Start: 10-20-2015 End: 10-09-2024 Tobacco use and exposure Smokeless tobacco non-user [facility] Start: 03-21-2022 End: 03-06-2023 Tobacco use panel [facility] National Score (1-10 0), lower number is lower risk 63 [facility] Start: 10-09-2024 Tobacco smoking stat us [facility] Never smoked tobacco [facility] Start: 10-09-2024 End: 11-19-2024 Alcoholic beverage intake Ex-drinker (finding) [facility] Start: 04-29-2015 Sex Male (finding) [facility] [employer] Medical Equipment Procedure Code Equipment Code Equipment Origin al Text Equipment Identifier Dates Lens Iol [id number]. [address] [facility] [id number] - [id number] - [id number] Start: 10-30-2024 Lens Iol [id number]. [address] [facility] [id number] - [id number] - [id number] Start: 11-20-2024 Functional Status Date Assessment Result Facility 04-09-2015 Are you deaf, or do you have serious difficulty hearing No 04/09/2015 11:20 AM Selin Sierra MA No [facility] 04-09-2015 Are you blind, or do you have serious difficulty seeing, even when wearing glasses No 04/09/2015 11:20 AM Selin Sierra MA No [facility] 04-09-2015 Do you have serious difficulty walking or climbing stairs No 04/09/2015 11:20 AM Selin Sierra MA No [facility] 04-09-2015 Do you have difficul ty dressing or bathing No 04/09/2015 11:20 AM Selin Sierra MA No [facility] 04-09-2015 Because of a physica l, mental, or emotional condition, do you have difficulty doing errands alone such as visiting a physician's office or shopping No 04/09/2015 11:20 AM Selin Sierra MA No [facility] Mental Status Date Assessment Result Facility 04-09-2015 Because of a physica l, mental, or emotional condition, do you have serious difficulty concentrating, remembering, or making decisions No 04/09/2015 11:20 AM eSlin Sierra MA [facility] Clinical Notes 01-24-2022 to 02-19-2025 Telephone Encounter - Bozena Roland RN - 02/19/2025 12:19 PM EDTTelephone Encounter - Bozena Roland RN - 02/19/2025 12:19 PM EDUriel Vila MD - 02/16/2025 7:32 AM EDTPatient Instructions Note Date & Type Note Facility 02-19-2025 Telephone encounter Note Pt informed of BRM message, once verified, using 2 patient identifiers. Patient denies any questions, needs or concerns at this time. Appointment verified. Bozena Roland RN [facility] 02-19-2025 Miscellaneous Notes Pt informed of BRM message, once verified, using 2 patient identifiers. Patient denies any questions, needs or concerns at this time. Appointment verified. Bozena Roland RN documented in this encounter [facility] 02-16-2025 Note HNO ID: [id number] Author: URIEL GUNTER MD Service: ? Author Type: Physician Type: Progress Notes Filed: 02/17/2025 20:34 Note Text: PATIENT NAME: Zach Manuel DATE: 02/17/2025 PRIMARY CARE PHYSICIAN: Dr. Hanna Mathias OTHER PHYSICIANS: Dr. Lewis, Dr. Martinez Portions of this encounter note have been copied from the note from 05/27/2024 and has been updated where appropriate, and reflect my current medical decision making from today. CC: This is a 79 year old male with a history of multiple myeloma, seen for scheduled follow-up. INTERIM HISTORY: Since the patient's last visit here he has had no significant medical changes. He remains on treatment with Revlimid 5 mg daily 3 weeks on 1 week off, plus dexamethasone 8 mg weekly. He is tolerating these medications well. He denies any bone pain or other systemic symptoms. No difficulty with urination. No recent infections. 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 PHYSICAL EXAM: Vitals: BP 129/73 Pulse 70 Temp 36.2 ?C (97.2 ?F) (Temporal) Resp 16 Ht 175.3 cm (5' 9.02 ) Wt 83 kg (182 lb 15.7 oz) SpO2 96% BMI 27.01 kg/m? ECOG 0 Exam limited to gross [...] for metastases. 08/18/2019 - Bone survey at [facility] Conclusion: Scattered lytic lesions, stable in num (more content not included)... [facility] 02-16-2025 History of Presen t illness Narrative PATIENT NAME: Zach Manuel DATE: 02/17/2025 PRIMARY CARE PHYSICIAN: Dr. Hanna Mathias OTHER PHYSICIANS: Dr. Lewis, Dr. Martinez Portions of this encounter note have been copied from the note from 05/27/2024 and has been updated where appropriate, and reflect my current medical decision making from today. CC: This is a 79 year old male with a history of multiple myeloma, seen for scheduled follow-up. INTERIM HISTORY: Since the patient's last visit here he has had no significant medical changes. He remains on treatment with Revlimid 5 mg daily 3 weeks on 1 week off, plus dexamethasone 8 mg weekly. He is tolerating these medications well. He denies any bone pain or other systemic symptoms. No difficulty with urination. No recent infections. 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 PHYSICAL EXAM: Vitals: BP 129/73 Pulse 70 Temp 36.2 C (97.2 F) (Temporal) Resp 16 Ht 175.3 cm (5' 9.02 ) Wt 83 kg (182 lb 15.7 oz) SpO2 96% BMI 27.01 kg/m ECOG 0 Exam limited to gross [...] for metastases. 08/18/2019 - Bone survey at [facility] Conclusion: Scattered lytic lesions, stable in number and size from prior exams. 05/06/2018 - Bone Survey at [facility] Scattered lytic lesions, stable in both number and size from the prior exam. LABORATORY DATA: Hemoglobin (g/dL) Date Value 02/17/2025 15.4 09/27/2021 13.4 Hematocrit (%) Date Value 02/17/2025 44.2 09/27/2021 38.0 WBC (k/uL) Date Value 02/17/2025 5.51 09/27/2021 5.92 Platelet Count (k/uL) Date Value 02/17/2025 217 09/27/2021 189 PSA 12/10/2020 4.94 03/14/2022 5.40 03/06/2023 3.58 ASSESSMENT/PLAN: 00 Multiple myeloma (primary diagnosis) IgG [...] is with his current treatment. Return in 6 months for follow-up and labs. If/when his paraprotein levels increase will evaluate for disease progression and discuss alternative treatment options. 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 He will receive an infusion today as scheduled. Next infusion due on return in 6 months. 3. 250.00 Diabetes mellitus Continue management per PCP. 4. V12.79 H/O ulcerative colitis Status post total colectomy 1990. No recurrent symptoms. 5. Spinal stenosis secondary to degenerative disc disease. Stable status post surgery (Dr. Harper) 01/26/2015. Continue follow-up with PCP/neurosurgery as indicated. 7. History of elevated PSA and abnormal prostate MRI 03/02/2020 Elevated [...] insufficiency most likely multifactorial, in part due to diabetes +/- myeloma. Labs currently stable. Continue management per PCP. Referral to nephrology will be considered if renal function worsens. Uriel Gunter MD documented in this encounter [facility] 11-19-2024 Nurse Note Preoperative Education Checklist- General [...] you have a Living Will/Durable Power of Campus Safety Officer for Health Care that is not on [...] after you have bathed. 5. NO nail russian/acrylic on at least one finger. If you are having a hand, wrist or foot surgery then all nail russian and artificial/acrylic nails must be removed from [...] please call the Preadmission Testing office at [phone], Mon.-Fri. 7 a.m.-3 p.m. Leave a voicemail [...] Stop taking 0 days prior to procedure [facility] 11-19-2024 Miscellaneous Notes Preoperative Education Checklist- General [...] you have a Living Will/Durable Power of Campus Safety Officer for Health Care that is not on [...] after you have bathed. 5. NO nail russian/acrylic on at least one finger. If you are having a hand, wrist or foot surgery then all nail russian and artificial/acrylic nails must be removed from [...] please call the Preadmission Testing office at [phone], Mon.-Fri. 7 a.m.-3 p.m. Leave a voicemail [...] prior to procedure documented in this encounter [facility] 10-10-2024 Telephone encounter Note Zach called requesting a refill on his revlimid. He is on his off week starting 10/11/24 and would like the script shipped to his house. Thank you- Dustin Woodson PharmD, MADI [facility] Work Phone: 10-10-2024 Miscellaneous Notes Zach called requesting a refill on his revlimid. He is on his off week starting 10/11/24 and would like the script shipped to his house. Thank you- Dustin Woodson PharmD, BCOP documented in this encounter [facility] 10-09-2024 Instructions Nilam Ortiz RN - [...] you have a Living Will/Durable Power of Campus Safety Officer for Health Care that is not on [...] after you have bathed. 5. NO nail russian/acrylic on at least one finger. If you are having a hand, wrist or foot surgery then all nail russian and artificial/acrylic nails must be removed from [...] please call the Preadmission Testing office at [phone], Mon.-Fri. 7 a.m.-3 p.m. Leave a voicemail [...] prior to procedure documented in this encounter [email or web address] 05-29-2024 Telephone encounter Note Pt and spouse notified and verbalizes understanding. Juan Ferguson RN [facility] Work Phone: 05-29-2024 Miscellaneous Notes Pt and spouse notified and verbalizes understanding. Juan Ferguson RN ----- Message from Latrice Hilario PA-C sent at 05/29/2024 11:58 AM EDT ----- Please call with stable myeloma labs documented in this encounter [facility] 05-29-2024 Telephone encounter Note ----- Message from Latrice Hilario PA-C sent at 05/29/2024 11:58 AM EDT ----- Please call with stable myeloma labs [facility] 05-27-2024 Telephone encounter Note Pt's spouse notified and verbalizes understanding. Juan Ferguson RN [facility] Work Phone: 05-27-2024 Miscellaneous Notes Pt's spouse notified and verbalizes understanding. Juan Ferguson RN Please call with a stable kidney function. Latrice Hilario PA-C documented in this encounter [facility] 05-27-2024 Telephone encounter Note Please call with a stable kidney function. Latrice Hilario PA-C [facility] Work Phone: 05-27-2024 Note HNO ID: [id number] Author: LATRICE HILARIO PA-C Service: ? Author Type: Physician Abap Developer Type: Progress Notes Filed: 05/27/2024 13:29 Note [...] date: Hyperlipidemia 11/2002: Monoclonal gammopathy Comment: IgG Shoshone 2003: Multiple myeloma (HCC) No date: Ulcerative [...] for metastases. 08/18/2019 - Bone survey at [facility] Conclusion: Scattered lytic lesions, stable in number and size from prior exams. 05/06/2018 - Bon (more content not included)... [facility] 05-27-2024 History of Presen t illness [...] date: Hyperlipidemia 11/2002: Monoclonal gammopathy Comment: IgG Shoshone 2002: Multiple myeloma (HCC) No date: Ulcerative [...] for metastases. 08/18/2019 - Bone survey at [facility] Conclusion: Scattered lytic lesions, stable in number and size from prior exams. 05/06/2018 - Bone Survey at [facility] Scattered lytic lesions, stable in both number and size from the prior exam. LABORATORY DATA: Hemoglobin (g/dL) Date Value 05/27/2024 13.3 09/27/2021 13.4 Hematocrit (%) Date Value 05/27/2024 37.7 09/27/2021 38.0 WBC (k/uL) Date Value 05/27/2024 6.80 09/27/2021 5.92 Platelet Count (k/uL) Date Value 05/27/2024 172 09/27/2021 189 PSA 12/10/2020 4.94 03/14/2022 5.40 03/06/2023 3.58 ASSESSMENT/PLAN: 1 203.00 Multiple myeloma (primary diagnosis) [...] which included preparing to see the patient, [id number] patient care, completing clinical documentation, performing a medically appropriate examination, counseling and educating the patient/family/caregiver, ordering medications, tests, or procedures, independently interpreting results (not separately reported), communicating results to the patient/family/caregiver, and care coordination (not separately reported). documented in this encounter [facility] 05-20-2024 Telephone encounter Note Patient has an appt on 05/27/24. Would you like labs, if so place orders. Irma Talavera MA [facility] 05-20-2024 Miscellaneous Notes Patient has an appt on 05/27/24. Would you like labs, if so place orders. Irma Talavera MA documented in this encounter [facility] 02-29-2024 Telephone encounter Note Pt notified and verbalizes understanding. Juan Ferguson RN [facility] Work Phone: 02-29-2024 Telephone encounter Note ----- Message from Latrice Hilario PA-C sent at 02/29/2024 8:10 AM EDT ----- Please let patient know his labs are stable and we will continue to monitor [facility] 02-29-2024 Miscellaneous Notes Pt notified and verbalizes understanding. Juan Ferguson RN ----- Message from Latrice Hilario PA-C sent at 02/29/2024 8:10 AM EDT ----- Please let patient know his labs are stable and we will continue to monitor documented in this encounter [facility] 02-25-2024 Note HNO ID: [id number] Author: URIEL GUNTER MD Service: ? Author [...] mellitus (HCC) Hyperlipidemia Monoclonal gammopathy 11/2002 IgG [place]osh[place] Multiple myeloma (HCC) 2002 Ulcerative colitis (HCC) [...] osseous lesions s (more content not included)... [facility] 02-25-2024 History of Presen t illness [...] mellitus (HCC) Hyperlipidemia Monoclonal gammopathy 11/2002 IgG [place] Multiple myeloma (HCC) 2002 Ulcerative colitis (HCC) [...] for metastases. 08/18/2019 - Bone survey at [facility] Conclusion: Scattered lytic lesions, stable in number and size from prior exams. 05/06/2018 - Bone Survey at [facility] Scattered lytic lesions, stable in both number [...] Uriel Gunter MD documented in this encounter [facility] 11-27-2023 History of Presen t illness [...] DROPS INTO AFFECTED EYE 4 TIMES DAILY [id number]-owsfvtretrzrm e (CORTISPORIN) otic solution INSTILL 3 4 [...] mellitus (HCC) Hyperlipidemia Monoclonal gammopathy 11/2002 IgG [place] Multiple myeloma (HCC) 2002 Ulcerative colitis (HCC) [...] for metastases. 08/18/2019 - Bone survey at [facility] Conclusion: Scattered lytic lesions, stable in number and size from prior exams. 05/06/2018 - Bone Survey at [facility] Scattered lytic lesions, stable in both number [...] will be considered if renal function worsens. Becca Lane APRN.SHOE TURNER I spent a total of 30 minutes on the date of the service which included preparing to see the patient, [id number] patient care, completing clinical documentation, obtaining and/or reviewing separately obtained history, performing a medically appropriate examination, counseling and educating the patient/family/caregiver, ordering medications, tests, or procedures, independently interpreting results (not separately reported), and communicating results to the patient/family/caregiver. documented in this encounter [facility] 11-23-2023 Miscellaneous Notes Patient has an appt on 11/26. Would you like labs? documented in this encounter [facility] 08-28-2023 History of Presen t illness [...] DROPS INTO AFFECTED EYE 4 TIMES DAILY mxunafdk-vebmiudcj-cencbihuuvqcn e (CORTISPORIN) otic solution INSTILL 3 4 [...] mellitus (HCC) Hyperlipidemia Monoclonal gammopathy 11/2002 IgG Shoshone Multiple myeloma (HCC) 2002 Ulcerative colitis (HCC) [...] for metastases. 08/18/2019 - Bone survey at [facility] Conclusion: Scattered lytic lesions, stable in number and size from prior exams. 05/06/2018 - Bone Survey at [facility] Scattered lytic lesions, stable in both number [...] Uriel Gunter MD documented in this encounter [facility] 05-31-2023 Miscellaneous Notes Pt informed of TAYLOR message. He denies any questions or concerns at this time. Appt holley Roland RN ----- Message from Uriel Gunter MD sent at 05/31/2023 12:08 PM EDT ----- Please inform the patient that his protein analysis is stable which is excellent news. We will continue as planned. documented in this encounter [facility] 05-29-2023 History of Presen t illness [...] DROPS INTO AFFECTED EYE 4 TIMES DAILY ocgivtgz-itcqkqbpb-khstzoaplnalj e (CORTISPORIN) otic solution INSTILL 3 4 [...] mellitus (HCC) Hyperlipidemia Monoclonal gammopathy 11/2002 IgG Shoshone Multiple myeloma (HCC) 2002 Ulcerative colitis (HCC) [...] for metastases. 08/18/2019 - Bone survey at [facility] Conclusion: Scattered lytic lesions, stable in number and size from prior exams. 05/06/2018 - Bone Survey at [facility] Scattered lytic lesions, stable in both number and size from the prior exam. LABORATORY DATA: Hemoglobin (g/dL) Date Value 05/29/2023 14.2 09/27/2021 13.4 Hematocrit (%) Date Value 05/29/2023 41.9 09/27/2021 38.0 WBC (k/uL) Date Value 05/29/2023 4.63 09/27/2021 5.92 Platelet Count (k/uL) Date Value 05/29/2023 199 09/27/2021 189 PSA 12/10/2020 4.94 03/14/2022 5.40 ASSESSMENT/PLAN: 00 Multiple myeloma (primary diagnosis) IgG [...] Uriel Gunter MD documented in this encounter [facility] 02-27-2023 Miscellaneous Notes Patient has an OTV appointment on 03/06. Please place lab orders. Monica Baptiste documented in this encounter [facility] 12-05-2022 History of Presen t illness [...] DROPS INTO AFFECTED EYE 4 TIMES DAILY opekanvq-kiaaucvas-hddsbqafwwcqy e (CORTISPORIN) otic solution INSTILL 3 4 [...] mellitus (HCC) Hyperlipidemia Monoclonal gammopathy 11/2002 IgG [place]osh[place] Multiple myeloma (HCC) 2002 Ulcerative colitis (HCC) [...] for metastases. 08/18/2019 - Bone survey at [facility] Conclusion: Scattered lytic lesions, stable in number and size from prior exams. 05/06/2018 - Bone Survey at [facility] Scattered lytic lesions, stable in both number [...] Uriel Gunter MD documented in this encounter [facility] 11-27-2022 Miscellaneous Notes Addended by: URIEL GUNTER on: 11/27/2022 01:06 PM Modules accepted: Orders Patient coming in on Sunday12/05/22 for follow up treatment. Please add lab orders. Thanks, Selin Stapleton MA documented in this encounter [facility] 09-21-2022 Miscellaneous Notes Please sign in everyone's absence. Thank you Dustin Woodson rPh documented in this encounter [facility] 09-12-2022 History of Presen t illness [...] DROPS INTO AFFECTED EYE 4 TIMES DAILY rogmqjqz-wmwrzgcql-krdvfqshfzagr e (CORTISPORIN) otic solution INSTILL 3 4 [...] mellitus (HCC) Hyperlipidemia Monoclonal gammopathy 11/2002 IgG [place]osh[place] Multiple myeloma (HCC) 2002 Ulcerative colitis (HCC) [...] for metastases. 08/18/2019 - Bone survey at [facility] Conclusion: Scattered lytic lesions, stable in number and size from prior exams. 05/06/2018 - Bone Survey at [facility] Scattered lytic lesions, stable in both number [...] Uriel Gunter MD documented in this encounter [facility] 06-20-2022 History of Presen t illness Narrative Recommendations per pharmacist Humaira Woodson [facility] for patient to take calcium with Vit D 1 tab twice daily especially as his calcium levels normally run low. Patient education complete with printed material. Questions answered as appropriate. He was encouraged to call with questions or concerns. Ese Ferro RN documented in this encounter [facility] 06-20-2022 History of Presen t illness [...] DROPS INTO AFFECTED EYE 4 TIMES DAILY haekptfp-hhdkicylh-rmxbegnamnfjv e (CORTISPORIN) otic solution INSTILL 3 4 [...] mellitus (HCC) Hyperlipidemia Monoclonal gammopathy 11/2002 IgG [place] Multiple myeloma (HCC) 2002 Ulcerative colitis (HCC) [...] for metastases. 08/18/2019 - Bone survey at [facility] Conclusion: Scattered lytic lesions, stable in number and size from prior exams. 05/06/2018 - Bone Survey at [facility] Scattered lytic lesions, stable in both number [...] prostate MRI if the PSA worsen significantly. Becca Lane APRN.CNP documented in this encounter [facility] 06-20-2022 Miscellaneous Notes Pt due for Aredia today. Pharmacy suggests checking pt's Calcium level w/ today's labs. Order pended. Juan Ferguson, RN documented in this encounter [facility] 06-16-2022 Miscellaneous Notes Please sign for Dr. Gunter since he is out of the office. Thanks, Becca Lane APRN.PASTORA documented in this encounter [facility] 06-15-2022 Miscellaneous Notes Patient has an appt on 06/20. Would you like labs? documented in this encounter [facility] 04-20-2022 Miscellaneous Notes Signed documented in this encounter [facility] 2022 Miscellaneous Notes New benjamin obtained through [employer] for $[id number] on ID# [id number] Enrollment 02/27/2022 through 02/26/2023 documented in this encounter [facility] 03-24-2022 Miscellaneous Notes Informed pt's of Dr Gunter's message. Janett verbalized understanding and denies further needs at this time. Funmilayo Arriola RN ----- Message from Uriel Gunter MD sent at 03/23/2022 4:50 PM EDT ----- Please inform the patient that his labs are stable, M spike down to 0.68. We will continue as planned. Bennie, TAYLOR documented in this encounter [facility] 03-21-2022 History of Presen t illness [...] DROPS INTO AFFECTED EYE 4 TIMES DAILY ixsdrjtm-jnjqfwhxv-rfswflwqxeiwb e (CORTISPORIN) otic solution INSTILL 3 4 [...] mellitus (HCC) Hyperlipidemia Monoclonal gammopathy 11/2002 IgG [place] Multiple myeloma (HCC) 2002 Ulcerative colitis (HCC) [...] for metastases. 08/18/2019 - Bone survey at [facility] Conclusion: Scattered lytic lesions, stable in number and size from prior exams. 05/06/2018 - Bone Survey at [facility] Scattered lytic lesions, stable in both number [...] Uriel Gunter MD documented in this encounter [facility] 02-24-2022 Miscellaneous Notes Signed. documented in this encounter [facility] 01-24-2022 History of Presen t illness [...] DROPS INTO AFFECTED EYE 4 TIMES DAILY tzvwnfsn-sthfvegeu-ibtexuqeovasx e (CORTISPORIN) otic solution INSTILL 3 4 [...] mellitus (HCC) Hyperlipidemia Monoclonal gammopathy 11/2002 IgG [place] Multiple myeloma (HCC) 2002 Ulcerative colitis (HCC) [...] RADIOLOGY/OTHER STUDIES: 08/18/2019 - Bone survey at [facility] Conclusion: Scattered lytic lesions, stable in number and size from prior exams. 05/06/2018 - Bone Survey at [facility] Scattered lytic lesions, stable in both number and size from the prior exam. LABORATORY DATA: Hemoglobin (g/dL) Date Value 01/24/2022 11.9 09/27/2021 13.4 Hematocrit (%) Date Value 01/24/2022 34.7 09/27/2021 38.0 WBC (k/uL) Date Value 01/24/2022 5.31 09/27/2021 5.92 Platelet Count (k/uL) Date Value 01/24/2022 171 09/27/2021 189 ASSESSMENT/PLAN: Multiple myeloma (primary diagnosis) IgG kappa [...] Uriel Gunter MD documented in this encounter [facility] Evaluation note Diagnosis Multiple myeloma not [...] Unspecified pre-operative examination [facility] Diagnosis Multiple myeloma not having achieved remission (HCC)- Primary Multiple myeloma, without mention of having achieved remission 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 [facility] Diagnosis Multiple myeloma not having achieved remission (HCC)- Primary Multiple myeloma, without mention of having achieved remission 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 H/O ulcerative colitis Personal history of other diseases of digestive system Stage 3b chronic kidney disease (HCC) [facility] HospitalInstructionsNot on filedocumented in this encounterSCCI Hospital LimaReason for visit Narrative* [place] Prior Authorization (Routine) - Authorized Specialty Diagnoses / Procedures Referred By Contac t Referred To Contact Diagnoses Multiple myeloma not having achieved remission (HCC) Paget disease of bone Uriel Gunter MD [address] [place] [address] Phone: tel: fax: Hematology/Oncology [address] [place] [address] Phone: tel: fax: Referral ID Status Reason Start Date Expiration Date V isits Requested Visits Authorized [id number] Authorized 02/26/2024 05/26/2024 99 99 [facility] Summary Purpose Family History No Family History Records FoundNo Family History Records FoundNo Family History Records FoundNo Family History Records FoundNo Family History Records FoundNo Family History Records Found Advance Directives Documents on File Type Date Recorded Patient [employer]ub [employer] Expl anation Durable Power of Campus Safety Officer 11/11/2024 8:31 AM Hospital Course Note MR#: [id number] I [facility] Pt. Name: Zach Manuel Admitted: 07/13/2018 Discharged: [...] The patient will be discharged to senior living facility. CONSULTATION DURING ADMISSION: Orthopedics. PROCEDURE DURING [...] 1330, APPROXIMATE TOTAL VOLUME_285mL - 24 HOUR EXP:133906/21/22 Hazardous Potential Reproductive Risk Drug: Use appropriate [...] t Referred To Contact Aiden Hatfield MD [address] [place] [id number] Referral ID Status Reason Start Date Expiration Date V isits Requested Visits Authorized [id number] Authorized 06/24/2022 09/23/2023 1 1 Additional Source Comments (unrecognized sect ion and content) No Status Records FoundNo Status Records FoundNo Status Records FoundNo Status Records FoundNo Status Records FoundNo Status Records Found INFORMATION SOURCE (unrecogn ized section and content) DATE CREATED AUTHOR 06/06/2019 [facility] DATE CREATED AUTHOR AUTHOR'S ORGANIZ ATION 11/17/2021 [facility] DATE CREATED AUTHOR AUTHOR'S ORGANIZ ATION 12/27/2021 [facility] DATE CREATED AUTHOR AUTHOR'S ORGANIZ ATION 09/02/2022 [facility] DATE CREATED AUTHOR AUTHOR'S ORGANIZ ATION 11/21/2024 [facility] DATE CREATED AUTHOR AUTHOR'S ORGANIZ ATION 02/19/2025 [facility] Source Comments (unrecognize d section and content) In the event this informatio n is protected by the Federal Confidentiality of Alcohol and Drug Abuse Patient Records regulations: The Federal rules restrict any use of the information to criminally investigate or prosecute any alcohol or drug abuse patient.[facility] the event this information is protected by the Federal Confidentiality of Alcohol and Drug Abuse Patient Records regulations: The Federal rules restrict any use of the information to criminally investigate or prosecute any alcohol or drug abuse patient.[facility] HospitalIn the event this information is protected by the Federal Confidentiality of Alcohol and Drug Abuse Patient Records regulations: The Federal rules restrict any use of the information to criminally investigate or prosecute any alcohol or drug abuse patient.[facility] HospitalIn the event this information is protected by the Federal Confidentiality of Alcohol and Drug Abuse Patient Records regulations: The Federal rules restrict any use of the information to criminally investigate or prosecute any alcohol or drug abuse patient.[facility] HospitalIn the event this information is protected by the Federal Confidentiality of Alcohol and Drug Abuse Patient Records regulations: The Federal rules restrict any use of the information to criminally investigate or prosecute any alcohol or drug abuse patient.[facility] HospitalIn the event this information is protected by the Federal Confidentiality of Alcohol and Drug Abuse Patient Records regulations: The Federal rules restrict any use of the information to criminally investigate or prosecute any alcohol or drug abuse patient.[facility] HospitalIn the event this information is protected by the Federal Confidentiality of Alcohol and Drug Abuse Patient Records regulations: The Federal rules restrict any use of the information to criminally investigate or prosecute any alcohol or drug abuse patient.[facility] HospitalIn the event this information is protected by the Federal Confidentiality of Alcohol and Drug Abuse Patient Records regulations: The Federal rules restrict any use of the information to criminally investigate or prosecute any alcohol or drug abuse patient.[facility] HospitalIn the event this information is protected by the Federal Confidentiality of Alcohol and Drug Abuse Patient Records regulations: The Federal rules restrict any use of the information to criminally investigate or prosecute any alcohol or drug abuse patient.[facility] HospitalIn the event this information is protected by the Federal Confidentiality of Alcohol and Drug Abuse Patient Records regulations: The Federal rules restrict any use of the information to criminally investigate or prosecute any alcohol or drug abuse patient.[facility] HospitalIn the event this information is protected by the Federal Confidentiality of Alcohol and Drug Abuse Patient Records regulations: The Federal rules restrict any use of the information to criminally investigate or prosecute any alcohol or drug abuse patient.[facility] HospitalIn the event this information is protected by the Federal Confidentiality of Alcohol and Drug Abuse Patient Records regulations: The Federal rules restrict any use of the information to criminally investigate or prosecute any alcohol or drug abuse patient.[facility] HospitalIn the event this information is protected by the Federal Confidentiality of Alcohol and Drug Abuse Patient Records regulations: The Federal rules restrict any use of the information to criminally investigate or prosecute any alcohol or drug abuse patient.[facility] HospitalIn the event this information is protected by the Federal Confidentiality of Alcohol and Drug Abuse Patient Records regulations: The Federal rules restrict any use of the information to criminally investigate or prosecute any alcohol or drug abuse patient.[facility] HospitalIn the event this information is protected by the Federal Confidentiality of Alcohol and Drug Abuse Patient Records regulations: The Federal rules restrict any use of the information to criminally investigate or prosecute any alcohol or drug abuse patient.[facility] HospitalIn the event this information is protected by the Federal Confidentiality of Alcohol and Drug Abuse Patient Records regulations: The Federal rules restrict any use of the information to criminally investigate or prosecute any alcohol or drug abuse patient.[facility] HospitalIn the event this information is protected by the Federal Confidentiality of Alcohol and Drug Abuse Patient Records regulations: The Federal rules restrict any use of the information to criminally investigate or prosecute any alcohol or drug abuse patient.[facility] HospitalIn the event this information is protected by the Federal Confidentiality of Alcohol and Drug Abuse Patient Records regulations: The Federal rules restrict any use of the information to criminally investigate or prosecute any alcohol or drug abuse patient.[facility] HospitalIn the event this information is protected by the Federal Confidentiality of Alcohol and Drug Abuse Patient Records regulations: The Federal rules restrict any use of the information to criminally investigate or prosecute any alcohol or drug abuse patient.[facility] HospitalIn the event this information is protected by the Federal Confidentiality of Alcohol and Drug Abuse Patient Records regulations: The Federal rules restrict any use of the information to criminally investigate or prosecute any alcohol or drug abuse patient.[facility] HospitalIn the event this information is protected by the Federal Confidentiality of Alcohol and Drug Abuse Patient Records regulations: The Federal rules restrict any use of the information to criminally investigate or prosecute any alcohol or drug abuse patient.[facility] HospitalIn the event this information is protected by the Federal Confidentiality of Alcohol and Drug Abuse Patient Records regulations: The Federal rules restrict any use of the information to criminally investigate or prosecute any alcohol or drug abuse patient.[facility] HospitalIn the event this information is protected by the Federal Confidentiality of Alcohol and Drug Abuse Patient Records regulations: The Federal rules restrict any use of the information to criminally investigate or prosecute any alcohol or drug abuse patient.[facility] HospitalIn the event this information is protected by the Federal Confidentiality of Alcohol and Drug Abuse Patient Records regulations: The Federal rules restrict any use of the information to criminally investigate or prosecute any alcohol or drug abuse patient.[facility] HospitalIn the event this information is protected by the Federal Confidentiality of Alcohol and Drug Abuse Patient Records regulations: The Federal rules restrict any use of the information to criminally investigate or prosecute any alcohol or drug abuse patient.[facility] HospitalIn the event this information is protected by the Federal Confidentiality of Alcohol and Drug Abuse Patient Records regulations: The Federal rules restrict any use of the information to criminally investigate or prosecute any alcohol or drug abuse patient.[facility] HospitalIn the event this information is protected by the Federal Confidentiality of Alcohol and Drug Abuse Patient Records regulations: The Federal rules restrict any use of the information to criminally investigate or prosecute any alcohol or drug abuse patient.[facility] HospitalIn the event this information is protected by the Federal Confidentiality of Alcohol and Drug Abuse Patient Records regulations: The Federal rules restrict any use of the information to criminally investigate or prosecute any alcohol or drug abuse patient.[facility] HospitalIn the event this information is protected by the Federal Confidentiality of Alcohol and Drug Abuse Patient Records regulations: The Federal rules restrict any use of the information to criminally investigate or prosecute any alcohol or drug abuse patient.[facility] HospitalIn the event this information is protected by the Federal Confidentiality of Alcohol and Drug Abuse Patient Records regulations: The Federal rules restrict any use of the information to criminally investigate or prosecute any alcohol or drug abuse patient.[facility] HospitalIn the event this information is protected by the Federal Confidentiality of Alcohol and Drug Abuse Patient Records regulations: The Federal rules restrict any use of the information to criminally investigate or prosecute any alcohol or drug abuse patient.[facility] HospitalIn the event this information is protected by the Federal Confidentiality of Alcohol and Drug Abuse Patient Records regulations: The Federal rules restrict any use of the information to criminally investigate or prosecute any alcohol or drug abuse patient.[facility] HospitalIn the event this information is protected by the Federal Confidentiality of Alcohol and Drug Abuse Patient Records regulations: The Federal rules restrict any use of the information to criminally investigate or prosecute any alcohol or drug abuse patient.[facility] HospitalIn the event this information is protected by the Federal Confidentiality of Alcohol and Drug Abuse Patient Records regulations: The Federal rules restrict any use of the information to criminally investigate or prosecute any alcohol or drug abuse patient.[facility] HospitalIn the event this information is protected by the Federal Confidentiality of Alcohol and Drug Abuse Patient Records regulations: The Federal rules restrict any use of the information to criminally investigate or prosecute any alcohol or drug abuse patient.[facility] HospitalIn the event this information is protected by the Federal Confidentiality of Alcohol and Drug Abuse Patient Records regulations: The Federal rules restrict any use of the information to criminally investigate or prosecute any alcohol or drug abuse patient.[facility] HospitalIn the event this information is protected by the Federal Confidentiality of Alcohol and Drug Abuse Patient Records regulations: The Federal rules restrict any use of the information to criminally investigate or prosecute any alcohol or drug abuse patient.[facility] HospitalIn the event this information is protected by the Federal Confidentiality of Alcohol and Drug Abuse Patient Records regulations: The Federal rules restrict any use of the information to criminally investigate or prosecute any alcohol or drug abuse patient.[facility] HospitalIn the event this information is protected by the Federal Confidentiality of Alcohol and Drug Abuse Patient Records regulations: The Federal rules restrict any use of the information to criminally investigate or prosecute any alcohol or drug abuse patient.[facility] HospitalIn the event this information is protected by the Federal Confidentiality of Alcohol and Drug Abuse Patient Records regulations: The Federal rules restrict any use of the information to criminally investigate or prosecute any alcohol or drug abuse patient.[facility] HospitalIn the event this information is protected by the Federal Confidentiality of Alcohol and Drug Abuse Patient Records regulations: The Federal rules restrict any use of the information to criminally investigate or prosecute any alcohol or drug abuse patient.[facility] HospitalIn the event this information is protected by the Federal Confidentiality of Alcohol and Drug Abuse Patient Records regulations: The Federal rules restrict any use of the information to criminally investigate or prosecute any alcohol or drug abuse patient.[facility] HospitalIn the event this information is protected by the Federal Confidentiality of Alcohol and Drug Abuse Patient Records regulations: The Federal rules restrict any use of the information to criminally investigate or prosecute any alcohol or drug abuse patient.[facility] HospitalIn the event this information is protected by the Federal Confidentiality of Alcohol and Drug Abuse Patient Records regulations: The Federal rules restrict any use of the information to criminally investigate or prosecute any alcohol or drug abuse patient.[facility] HospitalIn the event this information is protected by the Federal Confidentiality of Alcohol and Drug Abuse Patient Records regulations: The Federal rules restrict any use of the information to criminally investigate or prosecute any alcohol or drug abuse patient.[facility] HospitalIn the event this information is protected by the Federal Confidentiality of Alcohol and Drug Abuse Patient Records regulations: The Federal rules restrict any use of the information to criminally investigate or prosecute any alcohol or drug abuse patient.[facility] the event this information is protected by the Federal Confidentiality of Alcohol and Drug Abuse Patient Records regulations: The Federal rules restrict any use of the information to criminally investigate or prosecute any alcohol or drug abuse patient.[facility] HospitalIn the event this information is protected by the Federal Confidentiality of Alcohol and Drug Abuse Patient Records regulations: The Federal rules restrict any use of the information to criminally investigate or prosecute any alcohol or drug abuse patient.[facility] HospitalIn the event this information is protected by the Federal Confidentiality of Alcohol and Drug Abuse Patient Records regulations: The Federal rules restrict any use of the information to criminally investigate or prosecute any alcohol or drug abuse patient.[facility] HospitalIn the event this information is protected by the Federal Confidentiality of Alcohol and Drug Abuse Patient Records regulations: The Federal rules restrict any use of the information to criminally investigate or prosecute any alcohol or drug abuse patient.[facility] HospitalIn the event this information is protected by the Federal Confidentiality of Alcohol and Drug Abuse Patient Records regulations: The Federal rules restrict any use of the information to criminally investigate or prosecute any alcohol or drug abuse patient.[facility] HospitalIn the event this information is protected by the Federal Confidentiality of Alcohol and Drug Abuse Patient Records regulations: The Federal rules restrict any use of the information to criminally investigate or prosecute any alcohol or drug abuse patient.[facility] HospitalIn the event this information is protected by the Federal Confidentiality of Alcohol and Drug Abuse Patient Records regulations: The Federal rules restrict any use of the information to criminally investigate or prosecute any alcohol or drug abuse patient.[facility] HospitalIn the event this information is protected by the Federal Confidentiality of Alcohol and Drug Abuse Patient Records regulations: The Federal rules restrict any use of the information to criminally investigate or prosecute any alcohol or drug abuse patient.[facility] HospitalIn the event this information is protected by the Federal Confidentiality of Alcohol and Drug Abuse Patient Records regulations: The Federal rules restrict any use of the information to criminally investigate or prosecute any alcohol or drug abuse patient.[facility] HospitalIn the event this information is protected by the Federal Confidentiality of Alcohol and Drug Abuse Patient Records regulations: The Federal rules restrict any use of the information to criminally investigate or prosecute any alcohol or drug abuse patient.[facility] HospitalIn the event this information is protected by the Federal Confidentiality of Alcohol and Drug Abuse Patient Records regulations: The Federal rules restrict any use of the information to criminally investigate or prosecute any alcohol or drug abuse patient.[facility] HospitalIn the event this information is protected by the Federal Confidentiality of Alcohol and Drug Abuse Patient Records regulations: The Federal rules restrict any use of the information to criminally investigate or prosecute any alcohol or drug abuse patient.[facility] HospitalIn the event this information is protected by the Federal Confidentiality of Alcohol and Drug Abuse Patient Records regulations: The Federal rules restrict any use of the information to criminally investigate or prosecute any alcohol or drug abuse patient.[facility] HospitalIn the event this information is protected by the Federal Confidentiality of Alcohol and Drug Abuse Patient Records regulations: The Federal rules restrict any use of the information to criminally investigate or prosecute any alcohol or drug abuse patient.[facility] HospitalIn the event this information is protected by the Federal Confidentiality of Alcohol and Drug Abuse Patient Records regulations: The Federal rules restrict any use of the information to criminally investigate or prosecute any alcohol or drug abuse patient.[facility] HospitalIn the event this information is protected by the Federal Confidentiality of Alcohol and Drug Abuse Patient Records regulations: The Federal rules restrict any use of the information to criminally investigate or prosecute any alcohol or drug abuse patient.[facility] HospitalIn the event this information is protected by the Federal Confidentiality of Alcohol and Drug Abuse Patient Records regulations: The Federal rules restrict any use of the information to criminally investigate or prosecute any alcohol or drug abuse patient.[facility] Reason for Visit (unrecogniz ed section and content) Reason Onset Date Comments Refill Request 01/02/2022 Reason Comments Multiple Myeloma Reason Onset Date Comments Refill Request 01/30/2022 Reason Onset Date Comments Refill Request 02/24/2022 Reason Comments Multiple Myeloma follow up Reason Comments Results Reason Onset Date Comments Refill Request 2022 lenalidomide Reason Comments Top Knitter - [facility] obtained Reason Onset Date Comments Refill Request 04/20/2022 Reason Onset Date Comments Refill Request 05/19/2022 Reason Comments Lab Orders Reason Onset Date Comments Refill Request 06/16/2022 Specialty Diagnoses / Procedures Referred By [facility] Referred To Contact Diagnoses Multiple myeloma, remission status unspecified (HCC) Uriel Gunter MD [address] [place] [address] [place] [address] Sha[address] Treat [place]ble[address] [place] [address] Referral ID Status Reason Start Date Expiration Date V isits Requested Visits Authorized [id number] Authorized 12/10/2020 03/10/2021 99 99 Reason Comments [...] revlimid Specialty Diagnoses / Procedures [facility] Referred To Contact Diagnoses Multiple myeloma not having achieved remission (HCC) Paget disease of bone Uriel Gunter MD [address] [place] [address] [place] [address] Shaheen Treat Marleni [address] [place] [address] Referral ID Status Reason Start Date Expiration Date V isits Requested Visits Authorized [id number] Authorized 02/26/2024 05/26/2024 99 99 Reason Comments [...] Reason Onset Date Comments Refill Request 12/11/2024 Reason Onset Date Comments Results 02/19/2025 Reason Onset Date Comments Refill Request 02/27/2025 Care Teams (unrecognized sec tion and content) [employer] Relationship Specialty Start Date End Date Hanna Mathias MD [address] [id number] PCP - General 01/27/03 [employer] Maker Relationship Specialty Start Date End Date Hanna Mathias MD [address] [id number] PCP - General 01/27/03 [employer] Maker Relationship Specialty Start Date End Date Hanna Mathias MD [address] [id number] PCP - General 01/27/03 [employer] And Gar[employer] Maker Relationship Specialty Start Date End Date Hanna Mathias MD [address] [id number] PCP - General 01/27/03 W[employer] And Garland Maker Relationship Specialty Start Date End Date Hanna Mathias MD [address] [place] [facility] [place] [address] PCP - General 01/27/03 [employer] And Garland Maker Relationship Specialty Start Date End Date Hanna Mathias MD [address] [place] [facility] [address] PCP - General 01/27/03 [employer] And Gar[employer] Maker Relationship Specialty Start Date End Date Hanna Mathias MD [address] [place] [facility] [place] [address] PCP - General 01/27/03 [employer] And Gar[employer] Maker Relationship Specialty Start Date End Date Hanna Mathias MD [address] [place] [facility] [place] [address] PCP - General 01/27/03 [employer] And [employer] Maker Relationship Specialty Start Date End Date Hanna Mathias MD [address] [place] [facility] [place] [address] PCP - General 01/27/03 W[employer] And Garland Maker Relationship Specialty Start Date End Date Hanna Mathias MD [address] [place] [facility] [place] [address] PCP - General 01/27/03 [employer] And Garland Maker Relationship Specialty Start Date End Date Hanna Mathias MD [address] [place] [facility] [place] [address] PCP - General 01/27/03 [employer] And Garland Maker Relationship Specialty Start Date End Date Hanna Mathias MD [address] [place] [facility] [address] PCP - General 01/27/03 [employer] And Garland Maker Relationship Specialty Start Date End Date Hanna Mathias MD [address] [place] [facility] [address] PCP - General 01/27/03 [employer] And Garland Maker Relationship Specialty Start Date End Date Hanna Mathias MD [address] [facility] [address] PCP - General 01/27/03 [employer] And Garland Maker Relationship Specialty Start Date End Date Hanna Mathias MD [address] [facility] [address] PCP - General 01/27/03 [employer] And Gar[employer] Maker Relationship Specialty Start Date End Date Hanna Mathias MD [address] [facility] [address] PCP - General 01/27/03 [employer] And Gar[employer] Maker Relationship Specialty Start Date End Date Hanna Mathias MD [address] [facility] [address] PCP - General 01/27/03 [employer] And Gar[employer] Maker Relationship Specialty Start Date End Date Hanna Mathias MD [address] [facility] [address] PCP - General 01/27/03 [employer] And Gar[employer] Maker Relationship Specialty Start Date End Date Hanna Mathias MD [address] [facility] [address] PCP - General 01/27/03 [employer] And Gar[employer] Maker Relationship Specialty Start Date End Date Hanna Mathias MD [address] [facility] [address] PCP - General 01/27/03 W[employer] And Garland Maker Relationship Specialty Start Date End Date Hanna Mathias MD [address] [facility] [address] PCP - General 01/27/03 [employer] And Garland Maker Relationship Specialty Start Date End Date Hanna Mathias MD [address] [place] [address] PCP - General 01/27/03 [employer] And Gar[employer] Maker Relationship Specialty Start Date End Date Hanna Mathias MD [address] [place] [address] PCP - General 01/27/03 [employer] And [employer] Maker Relationship Specialty Start Date End Date Hanna Mathias MD [address] [place] [address] PCP - General 01/27/03 [employer] And Gar[employer] Maker Relationship Specialty Start Date End Date Hanna Mathias MD [address] [id number] PCP - General 01/27/03 [employer] And [employer] Maker Relationship Specialty Start Date End Date Hanna Mathias MD [address] [id number] PCP - General 01/27/03 [employer] And Gar[employer] Maker Relationship Specialty Start Date End Date Hanna Mathias MD [address] [id number] PCP - General 01/27/03 W[employer] And Garland Maker Relationship Specialty Start Date End Date Hanna Mathias MD [address] [place] [address] PCP - General 01/27/03 W[employer] And Gar[employer] Maker Relationship Specialty Start Date End Date Hanna Mathias MD [address] [id number] PCP - General 01/27/03 [employer] And Gar[employer] Maker Relationship Specialty Start Date End Date Hanna Mathias MD [address] [place] [address] PCP - General 01/27/03 W[employer] And Gar[employer] Maker Relationship Specialty Start Date End Date Hanna Mathias MD [address] [place] [address] PCP - General 01/27/03 W[employer] And Gar[employer] Maker Relationship Specialty Start Date End Date Hanna Mathias MD [address] [id number] PCP - General 01/27/03 W[employer] And Gar[employer] Maker Relationship Specialty Start Date End Date Hanna Mathias MD [address] [id number] PCP - General 01/27/03 W[employer] And Garland Maker Relationship Specialty Start Date End Date Hanna Mathias MD [address] [place] [address] PCP - General 01/27/03 W[employer] And Gar[employer] Maker Relationship Specialty Start Date End Date Hanna Mathias MD [address] [id number] PCP - General Family Medicine 10/30/24 [employer] And [employer] Maker Relationship Specialty Start Date End Date Hanna Mathias MD [address] [place] [address] PCP - General 01/27/03 W[employer] And Garland Maker Relationship Specialty Start Date End Date Hanna Mathias MD [address] [place] [address] PCP - General 01/27/03 FOR RECORDS PERTAINING [...] BE BASED ON THE PRIMARY CLINICAL RECORDS. [facility] [facility]. provides no warranty or guarantee of the accuracy or completeness of information in this document.
[2025-04-17 08:09] LABS: PSA, Free 1.34 ng/mL
== END 2025-04-16 10:45 | disposition home or self-care (01) ==
LOC: LAB 10:45
PROVIDERS: PCP Family Medicine; Visit Provider Family Medicine
DX: D72.9 Disorder of white blood cells, unspecified (principal); R97.20 Elevated prostate specific antigen [PSA]
CPT/HCPCS: 36415; 84153; 84154

== ENCOUNTER 2025-04-24 08:57 | Outpatient (OUT) | payer MEDICARE, OTHER, SELFPAY ==
--- OUTSIDE RECORDS SUMMARY | 2025-04-09 05:33 | XMS_ITS ---
Author Organization [facility] in [place] Address [address] [place] [address] Care Team Providers Care Atmospheric Sciences Professor Name Role Phone Doron Young Primary Care Provider [phone] REASON FOR VISIT Oxycodone refill Medications Medication SIG (Take, Route, Fr equency, Duration) Notes Start Date End Date Status oxyCODONE HCl 10 MG 1 Orally dx M54.12 q id prn for 30 days 04/09/2025 Active Encounters Encounter Location Date Provider Diagnosis [place] [address] [place] [address] 04/09/2025 Doron Young Lumbar disc disease M51.9 Assessments Encounter Date Diagnosis (ICD Code) Assessment Notes Treatment Notes Treatment Clinical Notes Section Notes 04/09/2025 Lumbar disc disease (ICD-10 - M51.9) Plan Of Treatment Medication Medication Name Sig Start Date Stop Date Notes oxyCODONE HCl 10 MG 1 Orally dx M54.12 qid prn for 30 days 04/09/2025 Progress Notes * DOMITILAZach FDOB:1945 (80 yo M)Acc No.[id number]:04/09/2025 Patient: Zach SUTTON :1945 A ge:80 Y S ex:Male Address:[address] [place] [address] * Refills Refill oxyCODONE HCl Tablet, 10 MG, Orally dx M54.12, 120, 1, qid prn, 30 days, Refills=0 * true * Date: Generated for Martín ortez/Mague/Francineitting on: 0 04/24/2025 08:59 AM EDT
--- OUTSIDE RECORDS SUMMARY | 2025-04-09 13:03 | XMS_ITS ---
Author Organization [facility] in [place] Address [address] [place] [address] Care Team Providers Care Reel System Operator Name Role Phone Doron Young Primary Care Provider [phone] Results Component Value Reference Range Notes PSA Total+% Free Reviewed date:04/17/2025 08:27:54 AM Interpretation: Performing Lab: Notes/Report: [facility] , Prostate Specific Ag 4.9 0.0-4.0 ng/mL [place] ECLIA methodology. According to the [place] [employer], Serum PSA should decrease and [...] the presence or absence of malignant disease. PSA, Free 1.34 N/A ng/mL [place] ECLIA met hodology. % Free PSA 27.3 . % The table below lists the probability of [...] for any other population of men. Performed at: - [facility] [address] [id number] Mill Roll Rewinder: John Akers PhD, Phone: [phone] Performing Lab: see note - [facility] REASON FOR VISIT review labs Problems Problem Type SNOMED Code ICD Code Onset Dates Problem Status W/U Status Risk Notes Problem Abnormal white blood cell (75039596) Abnormal white blood cell (D72.9) Active confirmed Encounters Encounter Location Date Provider Diagnosis [facility] [address] [place] [address] 04/09/2025 Doron Young Abnormal white blood cell D72.9 and Elevated PSA R97.20 Assessments Encounter Date Diagnosis (ICD Code) Assessment Notes Treatment Notes Treatment Clinical Notes Section Notes 04/09/2025 Abnormal white blood cell (ICD-10 - D72.9) 04/09/2025 Elevated PSA (ICD-10 - R97.20) Plan Of Treatment Pending Test Test Name Order Date CBC AUTO DIFF 04/09/2025 Progress Notes * Zach MANUEL FDOB:1945 (80 yo M)Acc No.[id number]:04/09/2025 Patient: Arian Zach PRADO Elenita :1945 A ge:80 Y S ex:Male Address:[address] [place] [phone] Subjective: * Chief Complaints: * R eview labs * Medical History: * Surgical History: * Hospitalization/Major Diagno stic Procedure: * Medications: Objective: * Vitals: * Physical Examination: Assessment: * Assessment: 1. A bnormal white blood cell - D72.9 (Primary) 2 . E levated PSA - R97.20? Plan: * Treatment: 2.?Elevated PSA?LAB: PSA Total+% Free * Procedure Codes: * true * Date: Generated for Printi ng/Faxing/eTransmitting on: 0 04/24/2025 08:58 AM EDT
--- OUTSIDE RECORDS SUMMARY | 2025-04-17 04:24 | XMS_ITS ---
Author Organization [facility] in [place] Address [address] [place] [address] Care Team Providers Care Learning And Development Analyst Name Role Phone Doron Young Primary Care Provider [phone] REASON FOR VISIT PSA Results Encounters Encounter Location Date Provider Diagnosis [facility] [address] [place] [address] 04/17/2025 Doron Young Plan Of Treatment No Information Progress Notes * Zach MANUEL FDOB:1945 (80 yo M)Acc No.[id number]:04/17/2025 Patient: Zach SUTTON :1945 A ge:80 Y S ex:Male Address:[address] [place] [address] , [place] [address] * true * Date: Generated for Martín ortez/Mague/eTransmitting on: 0 04/24/2025 08:59 AM EDT
--- OUTSIDE RECORDS SUMMARY | 2025-04-24 08:59 | XMS_ITS | Clinical Summary ---
Author Organization [facility] Address [address] [place] [address] Phone Care Team Providers Care Business Job Titles Name Role Phone Unavailable Primary Care Provider Unavailabl e Social History Tobacco Use Types Packs/Day Years Used Date Smoking Tobacco: Never Assessed Sex and Gender Information Value Date Recorded Sex Assigned at Not on file Legal Sex Male 12:32 PM EST Gender Identity Not on file Sexual Orientation Not on file Plan of Treatment Not on file
--- OUTSIDE RECORDS SUMMARY | 2025-04-24 08:59 | XMS_ITS | Clinical Summary ---
Author Organization [facility] Address [address] [place], [place] [address] Care Team Providers Care Union Representative Name Role Phone Jose Alberto Young MD Primary Care Provider [phone] Allergies Active Allergy Reactions Criticality Noted Date Comments Azithromycin Unknown Medium 07/12/2018 Erythromycin Unknown 12/05/2016 Sulfa (Sulfonamide Antibiotics) Unknown 09/19/2012 Tobramycin Other: See Comments 03/08/2020 made condition worse Medications GLUCOPHAGE 500 MG TAB Take 1,000 mg by mouth daily with breakfast. 0 020 Active MELOXICAM 15 mg tablet Take 15 mg by mouth as needed. 013 Active fenofibrate nanocrystallized (TRICOR) 145 mg tablet Take 145 mg by mouth once daily. 018 Active oxyCODONE IR (ROXICODONE) 10 mg tab 10 mg as needed. 018 Active BREO ELLIPTA 100-25 mcg/dose inhaler 1 Inhalation once daily. [address] (PROTONIX) 40 mg tablet Take 40 mg by mouth once daily. Active liothyronine (CYTOMEL) 5 mcg tablet 021 Active JARDIANCE 10 mg tablet Take 10 mg by mouth once daily. 022 Active glyBURIDE micronized (GLYNASE) 6 mg tablet 023 Active dexAMETHasone (DECADRON) 4 mg tablet TAKE 2 TABLETS BY MOUTH ONCE A WEEK 24 tablet 3 024 Active lenalidomide (REVLIMID) 5 mg capsule Take 1 capsule by mouth daily for 21 days on and 7 days off. 21 capsule 03/31/20 25 8:53 AM EDT 025 Active lenalidomide (REVLIMID) 5 mg capsule Take 1 capsule by mouth daily for 21 days on and 7 days off. 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 Multiple myeloma 09/25/2012 Encounters Date Type Department Care Team Description 03/31/2025 Refill [facility] [address] [place] [address] Kleber Plaza MD Refill Request 02/27/2025 Refill [facility] [address] [place] [address] Uriel Gunter MD Refill Request 02/19/2025 Results Follow-Up Hematology/Oncology [address] [place] [address] [place] [address] Uriel Gunter MD Results 02/17/2025 11:40 AM EDT Infusion Center Hematology/Oncology [address] [place] [address] [place] [address] Multiple myeloma not having achieved remission (HCC) (Primary Dx); Paget disease of bone 02/17/2025 11:20 AM EDT Visit (SP) Office Hematology/Oncology [address] [place] [address] [place] [address] Uriel Gunter MD Multiple myeloma not having achieved remission (HCC) (Primary Dx); Paget disease of bone; H/O ulcerative colitis; Stage 3b chronic kidney disease (HCC) 02/17/2025 Travel 02/13/2025 Telephone Hematology/Oncology [address] [place] [address] [place] [address] Keyonna Fuentes RN Orders from Last 3 Months Immunizations Immunization Administration Dates Next Due COVID-19 original vaccine, a ge 12+ yr, monovalent (PFIZER-BIONTECH - PURPLE TOP) 06/28/2021,11/11/2020,10/22/2020 COVID-19 vaccine, unspecified formulation 2020 influenza (HD-IIV4) vaccine, age 65+ yr, high dose, quadrivalent, PF (FLUZONE HIGH-DOSE) 06/16/2021 influenza (aIIV3) vaccine, a ge 65+ yr, trivalent, PF (FLUAD) 07/05/2020 influenza vaccine, unspecified formulation 07/19 respiratory syncytial virus (RSV) vaccine, bivalent (ABRYSVO) 07/07/2023 Family History Medical History Relation Comments Cancer Father prostate Cancer Mother bladder Relation Status Comments Father Mother Social History Tobacco Use Types Packs/Day Years Used Date Smoking Tobacco: Former Cigarettes 2 30 0 09/24/1960 - 09/24/1990 Smokeless Tobacco: Never Comments:quit 1996 Alcohol Use Standard Drinks/Week Comments No 0 (1 standard drink = 0.6 oz pur e alcohol) PHQ-2 Answer Date Recorded PHQ-2 score 0 03/21/2022 Area Deprivation Index Answer Date Alonso rded National Score (1-100), lower number is lower ri sk 63 03/06/2023 State Score (1-10), lower number is lower risk 4 03/06/2023 Data from: https://www.neighborhoodatlas.medicine.[facility].edu/. Last address used for calculation [address] 03/06/2023 Sex and Gender Information Value Date Recorded Sex Assigned at Not on file Legal Sex Male 9:00 AM EST Gender Identity Not on file Sexual Orientation Not on file Last Filed Vital Signs Vital Sign Reading Time Taken Comments Blood Pressure 129/73 02/17/2025 11:04 AM EDT Pulse 70 02/17/2025 11:04 AM EDT Temperature 36.2 C (97.2 F) 02/17/2025 11:04 AM EDT Respiratory Rate 16 02/17/2025 11:04 AM EDT Oxygen Saturation 96% 02/17/2025 11:04 AM EDT Inhaled Oxygen Concentration - - Weight 83 kg (182 lb 15.7 oz) 02/17/2025 11:04 A M EDT Height 175.3 cm (5' 9.02 ) 02/17/2025 11:04 AM E DT Body Mass Index 27.01 02/17/2025 11:04 AM EDT Plan of Treatment Upcoming Encounters Date Type Department Care Team (Latest Contact Info) Description 08/18/2025 10:15 AM EST Office Visit [facility] [address] [facility] [place] [address] 6 month follow up with lab 08/18/2025 10:30 AM EST Visit (SP) Office Hematology/Oncology [address] [facility] [place] [address] APRN.AUTOMATION QA LEAD [address] [facility] [address] 6 month follow up with lab 08/18/2025 11:00 AM EST [facility] Hematology/Oncology [address] [facility] [place] [address] 6 month follow up with lab Health Maintenance Due Date Last Done Comments HbA1C 1952 Diabetic Foot Exam 1957 Dilated Retinal Exam 1957 Urine Albumin:Creatinine Ratio 1957 Annual PCP Team Chronic Dise ase Visit 1965 Anxiety Screening 1965 Depression Screening 1965 Hepatitis C Screening 1965 LDL Cholesterol 1965 DTaP,Tdap,Td Vaccine (1 - Tdap) 1966 Pneumococcal Vaccine: 50+ (1 of 2 - PCV) 1966 Shingrix Vaccine (1 of 2) 1966 Medicare Annual Wellness Visit 03/24/2012 Advance Directive Discussion 09/24/2024 Influenza Vaccine (#1) 2025 , 07/05/2020, 07/19/2016 Hemoglobin/Hematocrit 02/17/2026 02/17/2025 , 05/27/2024, 02/26/2024, Additional history exists Serum Creatinine 02/17/2026 02/17/2025, 11/2023, 02/26/2024, Additional history exists RSV Vaccine Completed 07/05/2024, 07/07/2023 Procedures Procedure Name Priority Date/Time Associated Diagnosis Comments KAPPA/DANIELS,FREE,SER Routine 02/17/2025 1 1:02 AM EDT Multiple myeloma not having achieved remission (HCC) IMMUNOFIXATION SCREEN, SERUM Routine 02/17/2025 11:02 AM EDT Multiple myeloma not having achieved remission (HCC) IMMUNOGLOBULINS NIDIA Routine 02/17/2025 1 1:02 AM EDT Multiple myeloma not having achieved remission (HCC) PROTEIN TOTAL BLD Routine 02/17/2025 11: 02 AM EDT Multiple myeloma not having achieved remission (HCC) PROTEIN ELECTROPHORESIS SERUM WITH TOÑITO (P) Routine 02/17/2025 11:02 AM EDT Multiple myeloma not having achieved remission (HCC) MONOCLONAL PROTEIN, SERUM (BLOOD) Routine 02/17/2025 11:02 AM EDT Multiple myeloma not having achieved remission (HCC) PROT ELECT SERUM WITH TOÑITO AND INTERP Routine 02/17/2025 11:02 AM EDT Multiple myeloma not having achieved remission (HCC) COMPREHENSIVE METABOLIC PANEL Routine 02/17/2025 11:02 AM EDT Multiple myeloma not having achieved remission (HCC) CBC + DIFF Routine 02/17/2025 11:02 AM EDT Multiple myeloma not having achieved remission (HCC) from Last 3 Months Results * (ABNORMAL) IMMUNOFIXATION SCREEN, SERUM (02/17/2025 11:02 AM EDT) [facility] Result M protein is present.(A) No M protein is identified . 02/19/2025 7:39 AM EDT [facility] Interpretation ([facility]) Atypical restricted bands are present in the IgG and kappa regions. Consistent with IgG kappa monoclonal gammopathy. 02/19/2025 7:39 AM [facility] Staff Review ([facility]) Reviewed by Donaldo Rivas MD, Ph.D ([id number]) 02/19/2025 7:39 AM [facility] Blood BLOOD SPECIMEN / Unknown Venipuncture / Unknown 02/17/2025 11:02 AM EDT 02/17/2025 11:02 AM EDT us Uriel Gunter MD LABORATORY Final Re sult [facility] [address] [place] [address], * (ABNORMAL) PROTEIN ELECTROPHORESIS SERUM WITH TOÑITO (P) (02/17/2025 11:02 AM EDT) Albumin for SPE 4.01 3.43 - 5.41 g/dL 5 10:42 AM [facility] Alpha 1 Globulin 0.23 0.18 - 0.43 g/dL 5 10:42 AM [facility] Alpha 2 Globulin 0.66 0.42 - 0.98 g/dL 5 10:42 AM [facility] Beta Globulin 0.73 0.61 - 1.17 g/dL 5 10:42 AM [facility] Gamma Globulin 1.08 0.53 - 1.51 g/dL 5 10:42 AM [facility] Interpretation (Prot Electro) An M protein is identified on protein electrophoresis.(A ) No definitive M protein is identified on protein electrophore sis. 5 10:42 AM [facility] M-Protein Location Gamma Fraction 1 5 10:42 AM [facility] M-Protein Concentration 0.65(H) <=0.00 g/dL 5 10:42 AM [facility] SPE Staff Review Reviewed by Donaldo Rivas MD, Ph.D ([id number]) 5 10:42 AM [facility] Comment (Serum Prot Electro) Monoclonal Protein analysis (immunofixation) is not indicated. 10:42 AM EDT [facility] Interpretation Comment for Protein Electrophoresis See separate immunofixation report for characterization of monoclonal gammopathy. 10:42 AM EDT [facility] Blood BLOOD SPECIMEN / Unknown Venipuncture / Unknown 02/17/2025 11:02 AM EDT 02/17/2025 11:02 AM EDT Narrative [facility] - 02/19/2025 10:42 AM EDT Serum electrophoresis test was performed using the [employer] V8 NEXUS capillary electrophoresis method. Results obtained with different assay methods or kits cannot be used interchangeably. us Uriel Gunter MD LABORATORY Final Re sult [facility] [address] [facility] [address], * (ABNORMAL) KAPPA/DANIELS,FREE,SER (02/17/2025 11:02 AM EDT) [place] Free, Serum 37.4(H) 3.3 - 19.4 mg/L 02/18/2025 2:53 PM EDT [facility] Comment: Rarely, increased serum free light chains levels may not be detected or accurately quantified due to prozone phenomenon or in high viscosity samples using this immunoturbidimetric assay. Correlation with other laboratory results and clinical findings is recommended. The [place] Free Light Chain was performed using the Binding Site Optilite immunoturbidimetric method. Result obtained with different assay methods or kits cannot be used interchangeably. Lambda Free, Serum 22.7 5.7 - 26.3 mg/L 02/18/2025 2:53 PM EDT [facility] Comment: Rarely, increased serum free light chains levels may not be detected or accurately quantified due to prozone phenomenon or in high viscosity samples using this immunoturbidimetric assay. Correlation with other laboratory results and clinical findings is recommended. The Lambda Free Light Chain was performed using the Binding Site Optilite immunoturbidimetric method. Result obtained with different assay methods or kits cannot be used interchangeably. K/L Ratio, Serum 1.65 0.26 - 1.65 02/18/2025 2:53 PM EDT [facility] Blood BLOOD SPECIMEN / Unknown Venipuncture / Unknown 02/17/2025 11:02 AM EDT 02/17/2025 11:02 AM EDT Uriel Gunter MD LABORATORY Final Re sult Performing Organization Address [facility] Co de Phone Number [facility] [address] [place] [address], [place] * PROTEIN, TOTAL (02/17/2025 11:02 AM EDT) Pathologist [facility] Protein, Total 6.7 6.3 - 8.0 g/dL 02/17/2025 4:12 PM EDT [facility] Blood BLOOD SPECIMEN / Unknown Venipuncture / Unknown 02/17/2025 11:02 AM EDT 02/17/2025 11:02 AM EDT Uriel Gunter MD LABORATORY Final Re sult Performing Organization Address [facility] de Phone Number [facility] [address] [place] [address], [place] * (ABNORMAL) IMMUNOGLOBULINS,IGG,IGA,IGM (02/17/2025 11:02 AM EDT) IgG 1,245 700 - 1,600 mg/dL 02/17/2025 7:27 PM EDT [facility] IgA 118 70 - 400 mg/dL 02/17/2025 7:27 PM EDT [facility] IgM 21(L) 40 - 230 mg/dL 02/17/2025 7:27 PM EDT [facility] Blood BLOOD SPECIMEN / Unknown Venipuncture / Unknown 02/17/2025 11:02 AM EDT 02/17/2025 11:02 AM EDT us Uriel Gunter MD LABORATORY Final Re sult [facility] [address] [facility] [address] [address], [place] * (ABNORMAL) COMPREHENSIVE METABOLIC PANEL (02/17/2025 11:02 AM EDT) [facility] Protein, Total 7.0 6.3 - 8.0 g/dL 02/17/2025 2:54 PM EDT [facility] Comment:Corrected result: Pr eviously reported as 6.6 g/dL on 02/17/2025 at 11:40 AM EDT. Albumin 4.2 3.9 - 4.9 g/dL 02/17/2025 2:54 PM EDT [facility] Calcium, Total 8.5 8.5 - 10.2 mg/dL 02/17/2025 2:54 PM EDT [facility] Comment:Corrected result: Pr eviously reported as 8.3 mg/dL on 02/17/2025 at 11:40 AM EDT. Bilirubin, Total 1.7(H) 0.2 - 1.3 mg/dL 02/17/2025 2:54 PM EDT [facility] Alkaline Phosphatase 95 38 - 113 U/L 02/17/2025 2:54 PM EDT [facility] Comment:Corrected result: Pr eviously reported as 99 U/L on 02/17/2025 at 11:40 AM EDT. AST 22 14 - 40 U/L 02/17/2025 2:54 PM EDT [facility] Comment:Corrected result: Pr eviously reported as 15 U/L on 02/17/2025 at 11:40 AM EDT. ALT 15 10 - 54 U/L 02/17/2025 2:54 PM EDT [facility] Comment:Corrected result: Pr eviously reported as 12 U/L on 02/17/2025 at 11:40 AM EDT. Glucose 185(H) 74 - 99 mg/dL 02/17/2025 2:54 PM EDT [facility] Comment: The [place] Diabetes Association (ADA) provides guidance for cutoff [...] Standards of Medical Care in Diabetes 2016, [place] [employer]. Diabetes Care. 2016.39(Suppl 1). Corrected result: Previously reported as 189 mg/dL on 02/17/2025 at 11:40 AM EDT. BUN 23 9 - 24 mg/dL 02/17/2025 2:54 PM T [facility] Comment:Corrected result: Pr eviously reported as 25 mg/dL on 02/17/2025 at 11:40 AM EDT. Creatinine 1.60(H) 0.73 - 1.22 mg/dL 02/17/2025 2:54 PM EDT [facility] Sodium 138 136 - 144 mmol/L 02/17/2025 2:54 PM EDT [facility] Potassium 4.6 3.7 - 5.1 mmol/L 02/17/2025 2:54 PM EDT [facility] Chloride 101 98 - 107 mmol/L 02/17/2025 2:54 PM EDT [facility] CO2 26 22 - 30 mmol/L 02/17/2025 2:54 PM EDT [facility] Anion Gap 11 8 - 15 mmol/L 02/17/2025 2:54 PM EDT [facility] Estimated Glomerular Filtration Rate 44(L) >=60 mL/min/1. 73m 02/17/2025 2:54 PM T [facility] Comment:Estimated Glomerular Filtration Rate (eGFR) is calculated using the 2020 CKD-EPI creatinine equation. This equation utilizes serum creatinine, sex, and age as parameters. The creatinine assay has traceable calibration to isotope dilution- mass spectrometry. Refer to KDIGO guidelines for clinical interpretation. In patients with unstable renal function, e.g. those with acute kidney injury, the eGFR may not accurately reflect actual GFR. Blood BLOOD SPECIMEN / Unknown Venipuncture / Unknown 02/17/2025 11:02 AM EDT 02/17/2025 11:02 AM EDT us Uriel Gunter MD LABORATORY Final Re sult [facility] [address] [facility] [address] [place] [address], [place] * (ABNORMAL) COMPLETE BLOOD COUNT AND DIFFERENTIAL (02/17/2025 11:02 AM EDT) WBC 5.51 3.70 - 11.00 k/uL 02/17/2025 11:15 AM EDT [facility] RBC 4.42 4.20 - 6.00 m/uL 02/17/2025 11:15 AM EDT [facility] Hemoglobin 15.4 13.0 - 17.0 g/dL 02/17/2025 11:15 AM EDT [facility] Hematocrit 44.2 39.0 - 51.0 % 02/17/2025 11:15 AM EDT [facility] MCV 100.0 80.0 - 100.0 fL 02/17/2025 11:15 AM EDT [facility] MCH 34.8(H) 26.0 - 34.0 pg 02/17/2025 11:15 AM EDT [facility] MCHC 34.8 30.5 - 36.0 g/dL 02/17/2025 11:15 AM EDT [facility] RDW-CV 14.5 11.5 - 15.0 % 02/17/2025 11:15 AM EDT [facility] Platelet Count 217 150 - 400 k/uL 02/17/2025 11:15 AM EDT [facility] MPV 10.6 9.0 - 12.7 fL 02/17/2025 11:15 AM EDT [facility] Neutrophils % 56.6 % 02/17/2025 11:15 AM EDT [facility] Abs Neut 3.12 1.45 - 7.50 k/uL 02/17/2025 11:15 AM EDT [facility] Lymphocytes % 19.8 % 02/17/2025 11:15 AM EDT [facility] Abs Lymph 1.09 1.00 - 4.00 k/uL 02/17/2025 11:15 AM EDT [facility] Monocytes % 14.5 % 02/17/2025 11:15 AM EDT [facility] Abs [place] 0.80 <0.87 k/uL 02/17/2025 11:15 AM EDT [facility] Eosinophils % 6.9 % 02/17/2025 11:15 AM EDT [facility] Abs Eosin 0.38 <0.46 k/uL 02/17/2025 11:15 AM EDT [facility] Basophils % 1.5 % 02/17/2025 11:15 AM EDT [facility] Abs Baso 0.08 <0.11 k/uL 02/17/2025 11:15 AM EDT [facility] Immature Granulocytes % 0.7 % 02/17/2025 11:15 AM EDT [facility] Abs Immature Gran 0.04 <0.10 k/uL 02/17/2025 11:15 AM EDT [facility] NRBC 0.0 /100 WBC 02/17/2025 11:15 AM EDT [facility] Absolute nRBC <0.01 <0.01 k/uL 02/17/2025 11:15 AM EDT [facility] Diff Type Auto 02/17/2025 11:15 AM EDT [facility] Blood BLOOD SPECIMEN / Unknown Venipuncture / Unknown 02/17/2025 11:02 AM EDT 02/17/2025 11:02 AM EDT Uriel Gunter MD LABORATORY Final Re sult DAILY [facility] [address] [place] [address] from Last 3 Months Insurance MEDICARE [facility] Care Teams Union Representative Relationship Specialty Start Date End Date Jose Alberto Young MD [address] [place] [address] PCP - General 01/27/03
--- OUTSIDE RECORDS SUMMARY | 2025-04-24 08:59 | XMS_ITS | Encounter Summary ---
Author Organization [facility] Address [address] [place], [place] [id number] Care Team Providers Care Gum Dipper Name Role Phone Jose Alberto Young MD Primary Care Provider [phone] Source Comments In the event this information is protected by the Federal Confidentiality of Alcohol and Drug AbusePatient Records regulations: The Federal rules restrict any use of the information to criminally investigate or prosecute any alcohol or drug abuse patient.[facility] Reason for Visit * Reason Onset Date Comments Refill Request 03/31/2025 Encounter Details Date Type Department Care Team (Late st Contact Info) Description 03/31/2025 Refill [facility] [address] [place] [address] [place] [address] Kleber Plaza MD [address] [place] [address] [place] [phone] Refill Request Social History Tobacco Use Types Packs/Day Years [...] is lower risk 4 03/06/2023 Data from: https://www.neighborhoodatlas.[facility]/. Last address used for calculation [address] 03/06/2023 Sex and Gender Information Value Date Recorded Sex Assigned at Not on file Legal Sex Male 9:00 AM EST Gender Identity Not on file Sexual Orientation Not on file documented as of this encounter Functional Status * Are you deaf or do you have serious difficulty hearing? Answer Date of Assessment Author No 04/09/2015 11:20 AM Ángela Sierra MA * Are you blind or do you have serious difficulty seeing, even when wearing glasses? Answer Date of Assessment Author No 04/09/2015 11:20 AM Ángela Sierra MA * Do you have serious difficulty walking or climbing stairs? Answer Date of Assessment Author No 04/09/2015 11:20 AM Ángela Sierra MA * Do you have difficulty dressing or bathing? Answer Date of Assessment Author No 04/09/2015 11:20 AM Ángela Sierar MA * Because of a physical, mental, or emotional condition, do you have difficulty doing errands alone such as visiting a doctor's office or shopping? Answer Date of Assessment Author No 04/09/2015 11:20 AM Ángela Sierra MA documented as of this encounter Mental Status * Because of a physical, mental, or emotional condition, do you have serious difficulty concentrating, remembering, or making decisions? Answer Entry Date Author No 04/09/2015 11:20 AM Ángela Sierra MA documented in this encounter Plan of Treatment Upcoming Encounters Date Type Department Care Team (Latest Contact Info) Description 08/18/2025 10:15 AM EST Office Visit [facility] [address] [facility] [place] [address] 6 month follow up with lab 08/18/2025 10:30 AM EST Visit (SP) Office Hematology/Oncology [address] [facility] [place] [address], [employer] [address] [facility] [place] [address] 6 month follow up with lab 08/18/2025 11:00 AM [facility] Hematology/Oncology [address] [place] [address] [place] [address] 6 month follow up with lab documented as of this encounter Visit Diagnoses Not on filedocumented in this encounter Care Teams Gum Dipper Relationship Specialty Start Date End Date Jose Alberto Young MD [address] [place] [address] PCP - General 01/27/03 documented as of this encounter
--- OUTSIDE RECORDS SUMMARY | 2025-04-24 08:59 | XMS_ITS | Encounter Summary ---
Author Organization [facility] Address [address] [place], [place] [id number] Care Team Providers Care Drafter Automotive Design Layout Name Role Phone Jose Alberto Young MD Primary Care Provider [phone] Source Comments In the event this information is protected by the Federal Confidentiality of Alcohol and Drug AbusePatient Records regulations: The Federal rules restrict any use of the information to criminally investigate or prosecute any alcohol or drug abuse patient.[facility] Encounter Details Date Type Department Care Team (Late st Contact Info) Description 11/05/2015 Letters (in) Colorectal Surgery [address] [place] [address] Hannah Sandoval MD Social History Tobacco Use Types Packs/Day Years Used Date Smoking Tobacco: Former Cigarettes 2 30 0 09/24/1960 - 09/24/1990 Smokeless Tobacco: Never Comments:quit 1996 Alcohol Use Standard Drinks/Week Comments No 0 (1 standard drink = 0.6 oz pur e alcohol) Sex and Gender Information Value Date Recorded [...] 04/09/2015 11:20 AM Ángela Sierra MA * Because of a physical, mental, [...] Ángela Sierra MA documented in this encounter Miscellaneous Notes * Letter - Hannah Sandoval - 11/05/2015 12:00 AM EST November 05, 2015 Zach Manuel [address] [address] NAME: Zach Manuel CLINIC NO.: [id number] DATE OF SERVICE: 11/05/2015 Dear Mr. Manuel: I just wanted to let you know the results of the biopsies that we did on your pelvic pouch on October 20, 2015. All biopsies came back as consistent with the pelvic pouch with no precancerous changesand everything looks satisfactory. As we discussed because of your trouble emptying your pelvic pouch, some tips were given to try to improve this situation. Hopefully, this has helped, if not, please do not hesitate to call my officeso we can further investigate it. Sincerely, Hannah Sandoval MD Department of Colorectal Surgery Date Dictated: 11/05/2015 Date Typed: [facility] 11/05/2015 JOB# [id number] documented in this encounter Plan of Treatment Upcoming Encounters Date Type Department Care Team (Latest Contact Info) Description 08/18/2025 10:15 AM EST Office Visit [facility] [address] [place] [address] 6 month follow up with lab 08/18/2025 10:30 AM EST Visit (SP) Office Hematology/Oncology [address] [address] APRN.PROGRAM MANAGER ENVIRONMENTAL PLANNING [address] [place] [address] 6 month follow up with lab 08/18/2025 11:00 AM EST [facility] Hematology/Oncology [address] [place] [address] 6 month follow up with lab documented as of this encounter Visit Diagnoses Not on filedocumented in this encounter Care Teams Drafter Automotive Design Layout Relationship Specialty Start Date End Date Jose Alberto Young MD [address] [place] [address] PCP - General 01/27/03 documented as of this encounter
--- OUTSIDE RECORDS SUMMARY | 2025-04-24 08:59 | XMS_ITS | Clinical Summary ---
Author Organization [facility] Address [id number] [address] [place] [address] Care Team Providers Care Shipping Associate Name Role Phone Jose Alberto Young MD Primary Care Provider [phone] Allergies Active Allergy Reactions Criticality Noted Date Comments Azithromycin Other (See Comments) Medium 07/12/2018 Other Reaction(s): Unknown Erythromycin 12/05/2016 Other Reaction(s): Unknown, Unknown Neomycin Other (See Comments) 10/30/2024 Pseudoephedrine Other (See Comments) 10/30/2024 Sulfa (Sulfonamide Antibiotics) Other (See Comments) 10/09/2024 Kidney stones Tobramycin GI Disturbance 03/08/2020 made condition worse Medications metFORMIN (GLUCOPHAGE) 500 mg tablet Take 1 tablet (500 mg total) by mouth in the morning and 1 tablet (500 mg total) at noon and 1 tablet (500 mg total) in the evening and 1 tablet (500 mg total) before bedtime. Active glyBURIDE micronized (GLYNASE) 6 mg tablet Take 1 tablet (6 mg total) by mouth in the morning and 1 tablet (6 mg total) in the evening. Take with meals. Active liothyronine (CYTOMEL) 5 MCG tablet Take 2 tablets (10 mcg total) by mouth in the morning. 07/27/2024 Active lenalidomide (REVLIMID) 5 mg chemo capsule Take 1 capsule by mouth Daily for 21 days then off for 7 09/11/2024 Active dexAMETHasone (DECADRON) 4 mg tablet Take 2 tablets (8 mg total) by mouth once a week. 01/28/2024 Active JARDIANCE 10 mg tablet tablet Take 1 tablet (10 mg total) by mouth in the morning. 07/15/2024 Active pantoprazole (PROTONIX) 40 mg EC tablet Take 1 tablet (40 mg total) by mouth every morning before breakfast. Active oxyCODONE (ROXICODONE) 10 MG tablet immediate release tablet Take 1 tablet (10 mg total) by mouth 4 (four) times a day as needed. 09/05/2024 Active Social History Tobacco Use Types Packs/Day Years Used Date Smoking Tobacco: Never Smokeless Tobacco: Never Tobacco Cessation:Counseling Given: Not Answered Alcohol Use Standard Drinks/Week Comments Not Currently 0 (1 standard drink = 0.6 oz pur e alcohol) Childcare Answer Date Recorded Childcare Unknown 03/05/2019 Employment Answer Date Recorded Employment Unknown 03/05/2019 Sex and Gender Information Value Date Recorded Sex Assigned at Not on file Legal Sex Male 11:41 AM EDT Gender Identity Not on file Sexual Orientation Not on file Last Filed Vital Signs Vital Sign Reading Time Taken Comments Blood Pressure 117/54 11/20/2024 10:11 AM EST Pulse 67 11/20/2024 10:11 AM EST Temperature 36.2 C (97.2 F) 11/20/2024 7:46 AM EST Respiratory Rate 18 11/20/2024 10:11 AM EST Oxygen Saturation 95% 11/20/2024 10:11 AM EST Inhaled Oxygen Concentration - - Weight 81.6 kg (180 lb) 11/20/2024 7:46 AM EST Height 175.3 cm (5' 9 ) 11/20/2024 7:46 AM EST Body Mass Index 26.58 11/20/2024 7:46 AM EST Plan of Treatment Health Maintenance Due Date Last Done Comments Depression Screening 1959 DTaP,Tdap and Td Vaccines (1 - Tdap) 1966 Zoster (Shingles) Vaccine (1 of 2) 1997 Fall Risk Screening 2012 COVID-19 Vaccine (2023-2 5 season) 2025 07/05/2024, 07/07/2023, 06/08/2022, Additional history exists Influenza Vaccine 05/25/2025 06/16/2021, , 07/19/2016 Tobacco Screening 11/20/2025 11/20/2024 Medical Devices Implanted Type Area Upkeep Mechanic Device Identifier Shelf Expiration Date Model / Serial / Lot Lens Iol [id number] [facility] [id number] - [id number] - [id number] Implanted:Qty: 1 on 10/30/2024 by Adelina Stapleton MD at [facility] Lens Right: [employer] 02/10/2028 [id number] / [id number] 1 / NA Lens Iol [id number] [facility] [id number] - [id number] - [id number] Implanted:Qty: 1 on 11/20/2024 by Adelina Stapleton MD at [facility] Lens [employer] 02/12/2028 [id number] / [id number] / N/A Insurance MEDICARE [facility] INSURANCE Advance Directives Documents on File Type Date Recorded Patient Family Life Educator Expl anation Durable Power of Cylinder Press Feeder 11/11/2024 8:31 AM Care Teams Shipping Associate Relationship Specialty Start Date End Date Jose Alberto Young MD [address] [place] [address] PCP - General Family Medicine 10/30/24
--- OUTSIDE RECORDS SUMMARY | 2025-04-24 08:59 | XMS_ITS ---
Author Organization [facility] Address [address] [place], [place] [address] Care Team Providers Care Wrapper Selector Name Role Phone Jose Alberto Young MD Primary Care Provider [phone] Active Problems Problem Noted Date Diagnosed Date Stage 3 chronic kidney disea se, unspecified whether stage 3a or 3b CKD 03/06/2023 Elevated prostate specific antigen (PSA) 020 Outlet dysfunction constipation 10/20/2015 Perirectal skin irritation 10/20/2015 Anal bleeding 10/20/2015 Type 2 diabetes mellitus without complication group home current use of systemic steroids 10/20 Left inguinal hernia 10/20/2015 Former smoker 10/20/2015 Diabetes mellitus 12/24/2012 H/O ulcerative colitis 12/24/2012 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 Multiple myeloma 09/25/2012 Current Treatment and Therapy Plans AMB BONE MODIFYING AGENT: $$ - Q84D IF CRCL IS GREATER THAN 30 ML/MIN* Plan Start Date:02/26/2024 Plan Provider:Uriel Gunter MD Linked Problems Multiple myeloma not having achieved remission (HCC)Paget disease of bone Treatment Medications Current Day (Day 1 , Cycle 3 - Planned for 05/12/2025) Next Day (Day 1, Cycle 4 - Planned for 08/04/2025) pamidronate iv infusion (AREDIA) - hypercalcemia pamidronate 30 mg in NaCl 0.9% 250 mL (AREDIA) pamidronate 30 mg in NaCl 0.9% 250 mL (AREDIA) Past Treatment and Therapy Plans NON-CHEMO 1 Plan Name Start Date Discontinue Date Treatment Medications Discontinue Reason Plan Provider Cycles PAMIDRONATE 90 - Q90D 09/25/2012 12/28/2023 pamidronate iv infusion (AREDIA) - hypercalcemia Other Uriel uGnter MD 24 of 25 cycles started
--- OUTSIDE RECORDS SUMMARY | 2025-04-24 08:59 | XMS_ITS | Clinical Summary ---
Author Organization [facility] Address [address] [place] [address] Care Team Providers Care Photographers' Model Name Role Phone Unavailable Primary Care Provider Unavailabl e Social History Tobacco Use Types Packs/Day Years Used Date Smoking Tobacco: Never Assessed Sex and Gender Information Value Date Recorded Sex Assigned at Not on file Legal Sex Male 8:12 PM EDT Gender Identity Not on file Sexual Orientation Not on file Last Filed Vital Signs Vital Sign Reading Time Taken Comments Blood Pressure 140/82 12/24/2018 12:00 PM EDT Pulse - - Temperature - - Respiratory Rate - - Oxygen Saturation - - Inhaled Oxygen Concentration - - Weight 88.5 kg (195 lb) 12/24/2018 12:00 PM EDT Height 175.3 cm (5' 9 ) 12/24/2018 12:00 PM EDT Body Mass Index 28.8 12/24/2018 12:00 PM EDT Plan of Treatment Not on file Insurance MEDICARE
--- OUTSIDE RECORDS SUMMARY | 2025-04-24 08:59 | XMS_ITS | Encounter Summary ---
Author Organization [facility] Address [address] [place], [place] [id number] Care Team Providers Care Gluer Machine Operator Name Role Phone Jose Alberto Young MD Primary Care Provider [phone] Source Comments In the event this information is protected by the Federal Confidentiality of Alcohol and Drug AbusePatient Records regulations: The Federal rules restrict any use of the information to criminally investigate or prosecute any alcohol or drug abuse patient.[facility] Encounter Details Date Type Department Care Team (Latest Contact Info) Description 08/23/2018 H&P External-NonCCF Provider, External, PA-C Do not enter address information under generic External Provider. Social History Tobacco Use Types Packs/Day Years [...] Description 08/18/2025 10:15 AM EST Office Visit [facility] [address] [place] [address] 6 month follow up with lab 08/18/2025 10:30 AM EST Visit (SP) Office Hematology/Oncology [address] [facility] [place] [address] APRN.TRANSFER OPERATOR [address] [place] [address] 6 month follow up with lab 08/18/2025 11:00 AM EST [facility] Hematology/Oncology [address] [facility] [place] [address] 6 month follow up with lab documented as of this encounter Visit Diagnoses Not on filedocumented in this encounter Care Teams Gluer Machine Operator Relationship Specialty Start Date End Date Jose Alberto Young MD [address] [facility] [address] PCP - General 01/27/03 documented as of this encounter
--- OUTSIDE RECORDS SUMMARY | 2025-04-24 08:59 | XMS_ITS | Patient Health Record ---
Author Organization [facility] in [place] Address [address] [place] [address] Care Team Providers Care Ditching Machine Operator Name Role Phone Doron Young Primary Care Provider [phone] Allergies Allergen (clinical drug ingredient) Drug/Non Drug Allergy documented on EMR Reaction Allergy Type Onset Date Status Entex Unknown Drug Allergy Active pantoprazole Protonix anxiety Drug Allergy Acti ve metoclopramide Metoclopramide anxiety Drug Allergy Active neomycin Neomycin Unknown Drug Allergy Active Substance with sulfonamide structure and antibacterial mechanism of action (substance) Sulfa Antibiotics Unknown Drug Allergy Active erythromycin Erythromycin Unknown Drug Allergy A ctive Results Component Value Reference Range Notes PSA Total+% Free Reviewed date:04/17/2025 08:27:54 AM Interpretation: Performing Lab: Notes/Report: [facility] , Prostate Specific Ag 4.9 0.0-4.0 ng/mL should decrease and remain at undetectable levels after interpreted as absolute evidence of the presence or absence radical prostatectomy. The AUA defines biochemical of malignant disease. kits cannot be used interchangeably. Results cannot be [place] ECLIA methodology. According to the [employer], Serum PSA or greater. Values obtained with different assay methods or followed by a subsequent confirmatory PSA value 0.2 ng/mL recurrence as an initial PSA value 0.2 ng/mL or greater PSA, Free 1.34 N/A ng/mL [place] ECLIA met hodology. % Free PSA 27.3 . % 10.01-15.00% 24% 35% recommendations regarding the use of [address] [place], [place] [id number]). Performed at: [facility] 20.01-25.00% 10% 20% 4 and 10 ng/mL, by patient age (Judah et al, SELENE 1998, The table below lists the probability of prostate cancer for of men. % Free PSA 50-64 yr 65-75 yr men with non-suspicious RADHA results and total PSA between Receivable Clerk: John Akers PhD, Phone: [phone] 0.00-10.00% 56% 55% Please note: Jojo did not make specific >25.00% 5% 9% 15.01-20.00% 17% 23% percent free PSA for any other population Performing Lab: see note LC - [facility] LB FREE T3 Reviewed date:04/09/2025 05:05:06 PM Interpretation: Performing Lab: Notes/Report: [facility] , Free T3 3.07 2.18-3.98 pg/mL Performing Lab: see note ML - [facility] LB LIPID PROFILE Reviewed date:04/09/2025 05:05:06 PM Interpretation: Performing Lab: Notes/Report: [facility] , Triglycerides 105 <=150 mg/dL Cholesterol 131 <=200 mg/dL HDL Cholesterol 60 40-60 mg/dL <40 mg/dl - HIGH CARDIOVASCULAR RISK > or =60 mg/dl - LOW CARDIOVASCULAR RISK LDL Cholesterol Calculated 50.0 <100 mg/dl OPTIMAL 130-159 mg/dl BORDERLINE HIGH >190 mg/dl VERY HIGH 100-129 mg/dl NEAR OR ABOVE OPTIMAL 160-189 mg/dl HIGH VLDL CHOLESTEROL 21.0 Chol HDL Ratio 2.2 7.1 - 11.0 MODERATE RISK 4.4 - 7.1 AVERAGE RISK 3.3 - 4.4 LOW RISK >11.0 HIGH RISK Performing Lab: see note ML - [facility] LB PROF 14(COMP METB) Reviewed date:04/09/2025 05:05:06 PM Interpretation: Performing Lab: Notes/Report: [facility] , Sodium 140 136-145 mmol/L Potassium 4.1 3.5-5.1 mmol/L Chloride 106 98-107 mmol/L Carbon Dioxide 29.1 21.0-32.0 mmol/L Anion Gap 9.0 Glucose 94 74-106 mg/dL Blood Urea Nitrogen 22.0 7.0-18.0 mg/dL Creatinine 1.60 0.70-1.30 mg/dL Estimated GFR ( Meredith 51 >=60 mL/min/1.73m 2 Estimated GFR (Non- Anayeli 42 >=60 mL/min/1.73m 2 BUN Creatinine Ratio 13.8 Calcium 7.9 8.5-10.1 mg/dL Bilirubin Total 0.9 0.2-1.0 mg/dL Aspartate Amino Transferase 17 15-37 U/L Alanine Aminotransferase 25 16-63 U/L Alkaline Phosphatase 72 46-116 U/L Total Protein 6.2 6.4-8.2 g/dL Albumin Level 2.9 3.4-5.0 g/dL Globulin 3.3 Albumin Globulin Ratio 0.9 Performing Lab: see note ML - [facility] LB PSA Reviewed date:04/09/2025 05:05:06 PM Interpretation: Performing Lab: Notes/Report: [facility] , Prostate Specific Antigen Dx 4.58 <=4.00 ng/mL Performing Lab: see note ML - [facility] LB T4 Reviewed date:04/09/2025 05:05:06 PM Interpretation: Performing Lab: Notes/Report: [facility] , T4 Thyroxine 4.40 4.50-12.10 ug/dL Performing Lab: see note ML - [facility] LB TSH Reviewed date:04/09/2025 05:05:06 PM Interpretation: Performing Lab: Notes/Report: [facility] , Thyroid Stimulating Hormone 2.800 0.358-3.740 u IU/mL Performing Lab: see note ML - [facility] LB CBC AUTO DIFF Reviewed date:04/09/2025 05:05:06 PM Interpretation: Performing Lab: Notes/Report: [facility] , White Blood Count 3.8 4.0-11.0 10 3/uL Red Blood Count 3.83 4.70-6.10 10 6/uL Hemoglobin 13.6 14.0-18.0 g/dL Hematocrit 39.0 42.0-54.0 % Mean Corpuscular Volume 101.8 80.0-94.0 fL Mean Corpuscular Hemoglobin 35.5 25.9-34.0 pg Mean Corpuscular HGB Conc 34.9 29.9-35.2 g/dL Red Cell Distribution Width 13.8 11.0-15.0 % Platelet Count 170 150-450 10 3/uL Mean Platelet Volume 10.1 9.5-13.5 fL Neutrophils Percent Auto 58.3 43.0-75.0 % Lymphocytes Percent Auto 21.0 20.5-60.0 % Monocytes Percent Auto 13.0 1.7-12.0 % Eosinophils Percent Auto 5.3 0.9-7.0 % Basophils Percent Auto 2.1 0.2-2.0 % Immature Granulocytes Pct Auto 0.3 0.0-0.5 % Neutrophils Absolute Auto 2.2 1.4-6.5 10 3/uL Lymphocytes Absolute Auto 0.8 1.2-3.8 10 3/uL Monocytes Absolute Auto 0.5 0.3-0.8 10 3/uL Eosinophils Absolute Auto 0.2 0.0-0.7 10 3/uL Basophils Absolute Auto 0.1 0.0-0.1 10 3/uL Immature Granulocytes Abs Auto 0.01 0.00-0.03 10 3/uL Performing Lab: see note ML - [facility] LB GLYCOHEMOGLOBIN A1C Reviewed date:04/09/2025 05:05:06 PM Interpretation: Performing Lab: Notes/Report: [facility] , Glycohemoglobin A1C 6.9 4.5-6.2 % > 7.0 ADA THERAPEUTIC TARGET < 7.0 ACTION SUGGESTED ADA RECOMMENDED LIMIT 4.0 - 6.0 Estimated Average Glucose 151 Performing Lab: see note ML - [facility] LB Reason For Referral No Information Medications Medication SIG (Take, Route, Frequency, Duration) Notes Start Date End Date Status oxyCODONE HCl 10 MG 1 Orally dx M54.12 q id prn for 30 days 04/09/2025 Active metFORMIN HCl 500 MG Take 1 tablet by mo [facility] 4 times daily for 90 days Active glyBURIDE Micronized 6 MG Take 1 tablet by mouth twice daily for 90 Active Liothyronine Sodium 5 MCG Take 2 tablets by mouth once daily for 90 Active Revlimid 5 MG Oral for 28 Days Active Jardiance 10 MG Take 1 tablet by joel once daily for 90 days Active Nystatin 263802 UNIT/ML 5 mL SWISH & SWA LLOW Four times a day for 14 days 03/19/2023 Active Doxycycline Monohydrate 100 MG 1 capsule Orally bid for 10 days 08/15/2024 Active Dexilant 60 MG 1 capsule Orally Onc e a day for 30 days Active Pioglitazone HCl 30 MG Take 1 tablet by mouth once daily for 90 Active dexAMETHasone 4 MG 2 tablets Orally Onc e weekly for 30 days 10/29/2024 Active Immunizations Vaccine Route Administration Date Status Comme nts Flu, Fluad (32590) 65 yrs+, single-dose syringe (3661-0528) IM Intramuscular 07/24/2023 Administered Flu, Fluarix (00407) 6 mos and older, single-dose syringe IM Intramuscular 09/05/2024 Administered Social History Tobacco Use: Social History Observation Description Date Details (start date - stop date) Former Smoker 09/24/1964 - 09/24/1986 Tobacco Use/Smoking Question Answer Notes Patient is a former smoker When did you start smoking? 09/24/1964 When did you stop smoking? 09/24/1986 How long has it been since you last smoked? > 10 years Alcohol Screen (Audit-C) Question Answer Notes Did you have a drink containing alcohol in the p ast year? No Points 0 Interpretation Negative AUDIT-C (Standard) Question Answer Notes Did you have a drink containing alcohol in the p ast year? 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) Active confirmed Problem Hyperlipidemia (10838731) Hyperlipidemia (E78.5) Active confirmed Problem Asthma (013174346) Asthma (J45.909) Active conf irmed Problem Gastroesophageal reflux disease (653092436) GERD (gastroesophageal reflux disease) (K21.9) Active confirmed Problem Cervical radiculopathy (25920841) Cervical radiculopathy (M54.12) Active confirmed Problem Anxiety (63409481) Anxiety (F41.9) Active confi rmed Problem Peripheral neuropath y (528946630) Peripheral neuropathy (G62.9) Active confirmed Problem Eczema (19521857) Eczema (L30.9) Active confirm ed Problem Arthralgia (82714025) Arthralgia (M25.50) Active confirmed Problem Disorder of lumbar disc (524289549) Lumbar disc disease (M51.9) Active confirmed Problem Ulcerative colitis (18014212) Ulcerative colitis (K51.90) Active confirmed Problem Cellulitis (497358279) Cellulitis (L03.90) Active confirmed Problem Crohns disease (79407095) Crohns disease (K50.90) Active confirmed Problem Acquired spondylolisthesis (674847768) Acquired spondylolisthesis (M43.10) Active confirmed Problem Degenerative joint disease (372186790) Degenerative joint disease (M19.90) Active confirmed Problem Lumbosacral spondylosis (488790492) Lumbosacral spondylosis (M47.817) Active confirmed Problem Right bundle branch block (67396933) Bundle branch block, right (I45.10) Active confirmed Problem Hypercholesterolemia (12929227) Hypercholesterolemia (E78.00) Active confirmed Problem 352708468 Elevated prostat e specific antigen [PSA] (R97.20) Active confirmed Problem Abnormal white blood cell (92019640) Abnormal white blood cell (D72.9) Active confirmed Problem Myalgia (91380737) Myalgia (M79.10) Active conf irmed Problem Type II diabetes mellitus without complication (432321345) Diabetes (E11.9) Active confirmed Problem Diabetes mellitus (54725066) Diabetes mellitus (E11.9) Active confirmed Problem 352964967 Chronic kidney disease, stage 3b (N18.32) Active confirmed Vital Signs Temperature 99.8 degrees Fahrenheit 08/15/2024 Blood pressure diastolic 50 mm Hg 12/12/2024 Height 69 in 12/12/2024 Blood pressure systolic 122 mm Hg 12/12/2024 Weight 195.6 lbs 12/12/2024 BMI 28.88 kg/m2 12/12/2024 Encounters Encounter Location Date Provider Diagnosis [facility] [address] [place] [address] 06/25/2024 Doron Young Peripheral neuropath y G62.9 ; Ulcerative colitis K51.90 ; Diabetes mellitus E11.9 and Anxiety F41.9 [facility] [address] [place] [address] 08/15/2024 Doron Hoy Cellulitis L03.90 [facility] [address] [place] [place] [address] 12/12/2024 Dorno Hoy Lumbar disc disease M51.9 [facility] [address] [place] [place] [address] 09/05/2024 Doron Hoy Encounter for immunization Z23 [facility] [address] [facility] [place] [address] 05/02/2024 Doron Hoy Diabetes mellitus E1 1.9 [facility] [address] [place] [place] [address] 06/04/2024 Doron Hoy Diabetes mellitus E1 1.9 [facility] [address] [place] [place] [address] 07/02/2024 Doron Hoy Diabetes mellitus E1 1.9 [facility] [address] [facility] [place] [address] 07/29/2024 Doron Hoy Diabetes mellitus E1 1.9 [facility] [address] [facility] [place] [address] 08/20/2024 Doron Hoy Cellulitis L03.90 [facility] [address] [place] [address] 08/25/2024 Doron Hoy [facility] [address] [place] [place] [address] 08/26/2024 Doron Hoy [facility] [address] [place] [address] 09/05/2024 Doron Hoy Diabetes mellitus E1 1.9 [facility] [address] [facility] [place] [address] 10/13/2024 Doron Hoy Diabetes mellitus E1 1.9 [facility] [address] [place] [place] [address] 10/29/2024 Doron Hoy [facility] [address] [place] [address] 11/11/2024 Doron Hoy Diabetes mellitus E1 1.9 [facility] [address] [place] [address] 01/12/2025 Doron Hoy Lumbar disc disease M51.9 [facility] [address] [place] [address] 02/09/2025 Doron Hoy Lumbar disc disease M51.9 [facility] [address] [place] [place] [address] 03/02/2025 Doron Hoy [facility] [address] [place] [place] [address] 03/12/2025 Doron Hoy Lumbar disc disease M51.9 [facility] [address] [place] [address] 04/08/2025 Doron Hoy Diabetes mellitus E1 1.9 ; Peripheral neuropathy G62.9 ; Anxiety F41.9 ; Hyperlipidemia E78.5 and Elevated PSA R97.20 [facility] [address] [place] [address] 04/09/2025 Doron Hoy Lumbar disc disease M51.[address] [place] [address] 04/09/2025 Doron Hoy Abnormal white blood cell D72.9 and Elevated PSA R97.[address] [address] 04/17/2025 Doron Hoy Assessments Encounter Date Diagnosis (ICD Code) Assessment Notes Treatment Notes Treatment Clinical Notes Section Notes 06/25/2024 Peripheral neuropathy (ICD-10 - G62.9) stabel 06/25/2024 Ulcerative colitis (ICD-10 - K51.90) change in metfomin january nhelp 08/15/2024 Cellulitis (ICD-10 - L03.90) 09/05/2024 Encounter for immunization (ICD-10 - Z23) 12/12/2024 Lumbar disc disease (ICD-10 - M51.9) 05/02/2024 Diabetes mellitus (ICD-10 - E11.9) 06/04/2024 Diabetes mellitus (ICD-10 - E11.9) 07/02/2024 Diabetes mellitus (ICD-10 - E11.9) 07/29/2024 Diabetes mellitus (ICD-10 - E11.9) 08/20/2024 Cellulitis (ICD-10 - L03.90) 09/05/2024 Diabetes mellitus (ICD-10 - E11.9) 10/13/2024 Diabetes mellitus (ICD-10 - E11.9) 11/11/2024 Diabetes mellitus (ICD-10 - E11.9) 01/12/2025 Lumbar disc disease (ICD-10 - M51.9) 02/09/2025 Lumbar disc disease (ICD-10 - M51.9) 03/12/2025 Lumbar disc disease (ICD-10 - M51.9) 04/08/2025 Diabetes mellitus (ICD-10 - E11.9) 04/08/2025 Peripheral neuropathy (ICD-10 - G62.9) 04/09/2025 Lumbar disc disease (ICD-10 - M51.9) 04/09/2025 Abnormal white blood cell (ICD-10 - D72.9) 04/09/2025 Elevated PSA (ICD-10 - R97.20) 04/08/2025 Anxiety (ICD-10 - F41.9) 06/25/2024 Diabetes mellitus (ICD-10 - E11.9) cutting back on the metformin 06/25/2024 Anxiety (ICD-10 - F41.9) stable off reglan 04/08/2025 Hyperlipidemia (ICD-10 - E78.5) 04/08/2025 Elevated PSA (ICD-10 - R97.20) Plan Of Treatment Pending Test Test Name Order Date CMP (COMPLETE METABOLIC PANEL) 3 HEMOGLOBIN A1C (GLYCO) 04/09/2023 LIPID PANEL (CHOL/TRIG/HDL/LDL) 04/09/20 23 CBC WITH DIFF 04/09/2023 PSA, PROSTATE-SPECIFIC ANTIGEN 3 COMPREHENSIVE METABOLIC PROFILE WITH GFR 04/14/2024 COMPREHENSIVE METABOLIC PROFILE WITH GFR 04/08/2025 OCCULT BLOOD, FECAL, IMMUNOASSAY 024 OCCULT BLOOD, FECAL, IMMUNOASSAY 025 CBC W/AUTO DIFF 04/14/2024 CBC W/AUTO DIFF 04/08/2025 CBC AUTO DIFF 04/09/2025 THYROID PANEL (T4/TSH/FREE T3) 5 THYROID PANEL (T4/TSH/FREE T3) 4 THYROID PANEL (T4/TSH/FREE T3) 3 Free PSA 04/15/2024 PSA Total+% Free 04/15/2024 PSA, SCREENING 04/14/2024 PSA, SCREENING 04/08/2025 Lipid Panel 04/14/2024 Lipid Panel 04/08/2025 Insurance Providers Payer Name Payer Address Payer Phone Subscriber Number Group Number Insured Name Patient Relationship to Insured Coverage Start Date Coverage End Date [place] [address] [place] [address] [id number] Zach Manuel Self - patient is the insured [employer] [address] [place], [place] [id number] PLAN G Kaleb Zach Self - patient is the insured Medications Administered Medication Instructions Date of Administration Dosage Notes Ceftriaxone 1 gram 08/15/2024 1 g Medical (General) History Medical History History ICD Code Acquired spondylolisthesis M43.10 Arthralgia M25.50 Asthma J45.909 Bundle branch block, right I45.10 Ulcerative colitis K51.90 Crohns disease K50.90 Cervical radiculopathy M54.12 Diabetes mellitus E11.9 Degenerative joint disease M19.90 Eczema L30.9 Elevated PSA R97.20 Hyperlipidemia E78.5 Lumbar disc disease M51.9 Lumbosacral spondylosis M47.817 Monoclonal gammopathy D47.2 Myalgia M79.10 Peripheral neuropathy G62.9 Hypercholesterolemia E78.00 Surgical History Surgery Date(Month/Year) Spermatocele- excision 02/2010 Reduction&internal fixation subtrochante lucrecia Rt Femur 01/2019 Bilat Cataract extraction APPENDECTOMY TONSILLECTOMY,OVER 12 YRS Colectomy Bladder removal Inguinal Hreniorrhaphy, left 02/2010
[2025-04-24 09:27] LABS: Hematocrit 41.4 % (42.0-54.0); Hemoglobin 14.3 g/dL (14.0-18.0); Immature Granulocytes Abs Auto 0.02 10^3/uL (0.00-0.03); Immature Granulocytes Pct Auto 0.4 % (0.0-0.5); Lymphocytes Absolute Auto 1.0 10^3/uL (1.2-3.8); Mean Corpuscular HGB Conc 34.5 g/dL (29.9-35.2); Mean Corpuscular Hemoglobin 35.3 pg (25.9-34.0); Mean Corpuscular Volume 102.2 fL (80.0-94.0); Platelet Count 170 10^3/uL (150-450); Red Blood Count 4.05 10^6/uL (4.70-6.10); White Blood Count 5.3 10^3/uL (4.0-11.0)
== END 2025-04-24 08:58 | disposition home or self-care (01) ==
LOC: LAB 08:57
PROVIDERS: PCP Family Medicine; Visit Provider Family Medicine
DX: D72.9 Disorder of white blood cells, unspecified (principal); R97.20 Elevated prostate specific antigen [PSA]
CPT/HCPCS: 36415; 85025

== ENCOUNTER 2025-05-24 06:50 | Emergency (ER) | payer MEDICARE, OTHER, SELFPAY ==
--- OUTSIDE RECORDS SUMMARY | 2025-04-09 05:33 | XMS_ITS ---
Author Organization [facility] in [place] Address [address] [place] [address] Care Team Providers Care Graphic Production Artist Name Role Phone Doron Young Primary Care Provider REASON FOR VISIT Oxycodone refill Medications Medication SIG (Take, Route, Fr equency, Duration) Notes Start Date End Date Status oxyCODONE HCl 10 MG 1 Orally dx M54.12 q id prn for 30 days 04/09/2025 Active Encounters Encounter Location Date Provider Diagnosis [facility] [address] [place] [address] 04/09/2025 Doron Young Lumbar disc disease M51.9 Assessments Encounter Date Diagnosis (ICD Code) Assessment Notes Treatment Notes Treatment Clinical Notes Section Notes 04/09/2025 Lumbar disc disease (ICD-10 - M51.9) Plan Of Treatment Medication Medication Name Sig Start Date Stop Date Notes oxyCODONE HCl 10 MG 1 Orally dx M54.12 qid prn for 30 days 04/09/2025 Next Appt Details Provider Name:Doron Young, 10:15:00 AM, [address] [place], [address], Progress Notes * Zach MANUEL FDOB:1945 (80 yo M)Acc No.[id number]:04/09/2025 Patient: Zach SUTTON :1945 A ge:80 Y S ex:Male Address:[address] [place] [phone] * Refills Refill oxyCODONE HCl Tablet, 10 MG, Orally dx M54.12, 120, 1, qid prn, 30 days, Refills=0 * true * Date: Generated for Martín ortez/Mague/Francineitting on: 0 05/24/2025 06:56 AM EDT
--- OUTSIDE RECORDS SUMMARY | 2025-04-09 13:03 | XMS_ITS ---
Author Organization [facility] in [place] Address [address] [place] [address] Care Team Providers Care System Engineer Name Role Phone Doron Young Primary Care Provider [phone] Results Component Value Reference Range Notes PSA Total+% Free Reviewed date:04/17/2025 08:27:54 AM Interpretation: Performing Lab: Notes/Report: [facility] , Prostate Specific Ag 4.9 0.0-4.0 ng/mL [place] ECLIA methodology. According to the [place] [employer], Serum PSA should decrease and [...] population of men. Performed at: - [facility] [place] [id number] [place], [place] [id number] Crane Oiler: John Akers PhD, Phone: [phone] Performing Lab: see note - [facility] REASON FOR VISIT review labs Problems Problem Type SNOMED Code ICD Code Onset Dates Problem Status W/U Status Risk Notes Problem Information temporarily unavailable Abnormal white blood cell (D72.9) Active confirmed Encounters Encounter Location Date Provider Diagnosis [facility] [address] [place] [phone] 04/09/2025 Doron Young Abnormal white blood cell D72.9 and Elevated PSA R97.20 Assessments Encounter Date Diagnosis (ICD Code) Assessment Notes Treatment Notes Treatment Clinical Notes Section Notes 04/09/2025 Abnormal white blood cell (ICD-10 - D72.9) 04/09/2025 Elevated PSA (ICD-10 - R97.20) Plan Of Treatment Pending Test Test Name Order Date CBC AUTO DIFF 04/09/2025 Next Appt Details Provider Name:Doron Young, 10:15:00 AM, [address] [place], [address], Progress Notes * Zach MANUEL FDOB:1945 (80 yo M)Acc No.[id number]:04/09/2025 Patient: Zach SUTTON :1945 A ge:80 Y S ex:Male Address:[address] [place] [phone] Subjective: * Chief Complaints: * R eview [...] * true * Date: Generated for Printi ng/Fadavidg/eTransmitting on: 0 05/24/2025 06:56 AM EDT
--- OUTSIDE RECORDS SUMMARY | 2025-04-17 04:24 | XMS_ITS ---
Author Organization [facility] in [place] Address [address] [place] [address] Care Team Providers Care Microbiology Director Name Role Phone Doron Young Primary Care Provider [phone] REASON FOR VISIT PSA Results Encounters Encounter Location Date Provider Diagnosis [facility] [address] [place] [address] 04/17/2025 Doron Young Plan Of Treatment Next Appt Details Provider Name:Doron Young, 10:15:00 AM, [address] [place], [address], Progress Notes * Zach MANUEL FDOB:1945 (80 yo M)Acc No.[id number]:04/17/2025 Patient: Arian Zach PRADO Elenita :1945 A ge:80 Y S ex:Male Address:[address] [place] [address] * true * Date: Generated for Printi ng/Faxing/eTransmitting on: 0 05/24/2025 06:56 AM EDT
--- OUTSIDE RECORDS SUMMARY | 2025-04-26 15:42 | XMS_ITS ---
Author Organization [facility] in [place] Address [address] [place] [address] Care Team Providers Care Wire Photo Operator Name Role Phone Doron Young Primary Care Provider REASON FOR VISIT Lab Results Encounters Encounter Location Date Provider Diagnosis [facility] [address] [place] [address] 04/26/2025 Doron Young Plan Of Treatment Next Appt Details Provider Name:Doron Young, 10:15:00 AM, [address] [place], [address], Progress Notes * KALEBZach FDOB:1945 (80 yo M)Acc No.[id number]:04/26/2025 Patient: Arian EVELewisry Elenita :1945 A ge:80 Y S ex:Male Address:[address] [place] [address] * true * Date: Generated for Printi ng/Fadavidg/eTransmitting on: 0 05/24/2025 06:56 AM EDT
--- OUTSIDE RECORDS SUMMARY | 2025-05-07 11:02 | XMS_ITS ---
Author Organization [facility] in [place] Address [address] [place] [address] Care Team Providers Care Robotics Mechanic Name Role Phone Doron Young Primary Care Provider REASON FOR VISIT refill Medications Medication SIG (Take, Route, Fr equency, Duration) Notes Start Date End Date Status oxyCODONE HCl 10 MG 1 Orally dx M54.12 q id prn for 30 days 05/07/2025 Active Encounters Encounter Location Date Provider Diagnosis [facility] [address] [place] [address] 05/07/2025 Doron Young Lumbar disc disease M51.9 Assessments Encounter Date Diagnosis (ICD Code) Assessment Notes Treatment Notes Treatment Clinical Notes Section Notes 05/07/2025 Lumbar disc disease (ICD-10 - M51.9) Plan Of Treatment Medication Medication Name Sig Start Date Stop Date Notes oxyCODONE HCl 10 MG 1 Orally dx M54.12 qid prn for 30 days 05/07/2025 Next Appt Details Provider Name:Doron Young, 10:15:00 AM, [address] [place], [address], Progress Notes * Zach MANUEL FDOB:1945 (80 yo M)Acc No.[id number]:05/07/2025 Patient: Zach SUTTON :1945 A ge:80 Y S ex:Male Address:[address] [place] [address] * Refills Refill oxyCODONE HCl Tablet, 10 MG, Orally dx M54.12, 120, 1, qid prn, 30 days, Refills=0 * true * Date: Generated for Martín ortez/Mague/Francineitting on: 0 05/24/2025 06:56 AM EDT
[2025-05-24 06:55] VITALS: BP 144/62; PULSE 68; TEMP 36.9; O2SAT 99; BMI 26.6
--- OUTSIDE RECORDS SUMMARY | 2025-05-24 06:56 | XMS_ITS ---
Author Organization [facility] Address [address] [place], [place] [id number] Care Team Providers Care Stitching Machine Setter Name Role Phone Jose Alberto Young MD Primary Care Provider [phone] Active Problems Problem Noted Date Diagnosed Date Stage 3 chronic kidney disea se, unspecified whether stage 3a or 3b CKD 03/06/2023 Elevated prostate specific antigen (PSA) 020 Outlet dysfunction constipation 10/20/2015 Perirectal skin irritation 10/20/2015 Anal bleeding 10/20/2015 Type 2 diabetes mellitus without complication longterm current use of systemic steroids 10/20 Left [...] iv infusion (AREDIA) - hypercalcemia Other Uriel Gunter MD 24 of 25 cycles started
--- OUTSIDE RECORDS SUMMARY | 2025-05-24 06:56 | XMS_ITS | Clinical Summary ---
Author Organization Portr s tem Address [id number] [address] [place] [address] Care Team Providers Care Financial Institution Branch Manager Name Role Phone Jose Alberto Young MD Primary Care Provider [phone] Allergies Active Allergy Reactions Criticality Noted Date [...] 11/20/2025 11/20/2024 Medical Devices Implanted Type Area Customer Security Clerk Device Identifier Shelf Expiration Date Model / Serial / Lot Lens Iol [id number] [facility] 283281 - [id number] - [id number] Implanted:Qty: 1 on 10/30/2024 by Adelina Stapleton MD at [facility] Lens Right: [employer] 02/10/2028 [id number] / [id number] 1 / NA Lens Iol [id number] [facility] 943308 - [id number] - [id number] Implanted:Qty: 1 on 11/20/2024 by Adelina Stapleton MD at [facility] Lens [employer] 02/12/2028 [id number] / [id number] / N/A Insurance MEDICARE [facility] LIFE INSURANCE Advance Directives Documents on File Type Date Recorded Patient Cook Room Supervisor Expl anation Durable Power of Can Filling And Closing Machine Tender 11/11/2024 8:31 AM Care Teams Financial Institution Branch Manager Relationship Specialty Start Date End Date Jose Alberto Young MD [address] [place] [address] PCP - General Family Medicine 10/30/24
--- OUTSIDE RECORDS SUMMARY | 2025-05-24 06:56 | XMS_ITS | Patient Health Record ---
Author Organization [facility] in [place] Address [address] [place] [address] Care Team Providers Care Unemployment Examiner Name Role Phone Doron Young Primary Care Provider [phone] Allergies Allergen (clinical drug ingredient) Drug/Non Drug Allergy documented on EMR Reaction Allergy Type Onset Date Status Information temporarily unavailable Entex Unknown Drug Allergy Active Information temporarily unavailable Protonix anxiety Drug Allergy Active Information temporarily unavailable Metoclopramide anxiety Drug Allergy Active Information temporarily unavailable Neomycin Unknown Drug Allergy Active Information temporarily unavailable Sulfa Antibiotics Unknown Drug Allergy Active Information temporarily unavailable Erythromycin Unknown Drug Allergy Active Results Component Value Reference Range Notes PSA [...] be [place] ECLIA methodology. According to the [place], Serum PSA or greater. Values obtained with different assay methods or followed by a subsequent confirmatory PSA value 0.2 ng/mL recurrence as an initial PSA value 0.2 ng/mL or greater PSA, Free 1.34 N/A ng/mL [place] ECLIA met hodology. % Free PSA 27.3 . % 10.01-15.00% 24% 35% recommendations regarding the use of [address] [place], [place] [id number]). Performed at: - [facility] 20.01-25.00% 10% 20% 4 and 10 ng/mL, by patient age (Judah et al, SELENE 1998, The table below lists the probability of prostate cancer for of men. % Free PSA 50-64 yr 65-75 yr men with non-suspicious RADHA results and total PSA between Saddle Stitching Machine Operator: John Akers PhD, Phone: [phone] 0.00-10.00% 56% 55% Please note: Jojo did not make specific >25.00% 5% 9% 15.01-20.00% 17% 23% percent free PSA for any other population Performing Lab: see note LC - [facility] LB GLYCOHEMOGLOBIN A1C Reviewed date:04/09/2025 05:05:06 PM Interpretation: Performing Lab: Notes/Report: [facility] , Glycohemoglobin A1C 6.9 4.5-6.2 % > 7.0 ADA THERAPEUTIC TARGET < 7.0 ACTION SUGGESTED ADA RECOMMENDED LIMIT 4.0 - 6.0 Estimated Average Glucose 151 Performing Lab: see note - [facility] LB CBC AUTO DIFF Reviewed date:04/26/2025 07:42:31 PM Interpretation: Performing Lab: Notes/Report: [facility] , White Blood Count 5.3 4.0-11.0 10 3/uL Red Blood Count 4.05 4.70-6.10 10 6/uL Hemoglobin 14.3 14.0-18.0 g/dL Hematocrit 41.4 42.0-54.0 % Mean Corpuscular Volume 102.2 80.0-94.0 fL Mean Corpuscular Hemoglobin 35.3 25.9-34.0 pg Mean Corpuscular HGB Conc 34.5 29.9-35.2 g/dL Red Cell Distribution Width 13.6 11.0-15.0 % Platelet Count 170 150-450 10 3/uL Mean Platelet Volume 10.8 9.5-13.5 fL Neutrophils Percent Auto 61.6 43.0-75.0 % Lymphocytes Percent Auto 18.8 20.5-60.0 % Monocytes Percent Auto 11.6 1.7-12.0 % Eosinophils Percent Auto 6.3 0.9-7.0 % Basophils Percent Auto 1.3 0.2-2.0 % Immature Granulocytes Pct Auto 0.4 0.0-0.5 % Neutrophils Absolute Auto 3.2 1.4-6.5 10 3/uL Lymphocytes Absolute Auto 1.0 1.2-3.8 10 3/uL Monocytes Absolute Auto 0.6 0.3-0.8 10 3/uL Eosinophils Absolute Auto 0.3 0.0-0.7 10 3/uL Basophils Absolute Auto 0.1 0.0-0.1 10 3/uL Immature Granulocytes Abs Auto 0.02 0.00-0.03 10 3/uL Performing Lab: see note ML - [facility] LB CBC AUTO DIFF Reviewed date:04/09/2025 05:05:06 PM Interpretation: Performing Lab: Notes/Report: [facility] , White Blood Count 3.8 [...] 3/uL Performing Lab: see note ML - [facility] LB TSH Reviewed date:04/09/2025 05:05:06 PM Interpretation: Performing Lab: Notes/Report: [facility] , Thyroid Stimulating Hormone 2.800 0.358-3.740 u IU/mL Performing Lab: see note ML - [facility] LB T4 Reviewed date:04/09/2025 05:05:06 PM Interpretation: Performing Lab: Notes/Report: [facility] , T4 Thyroxine 4.40 4.50-12.10 ug/dL Performing Lab: see note ML - [facility] LB PSA Reviewed date:04/09/2025 05:05:06 PM Interpretation: Performing Lab: Notes/Report: [facility] , Prostate Specific Antigen Dx 4.58 <=4.00 ng/mL Performing Lab: see note ML - [facility] PROF 14(COMP METB) Reviewed date:04/09/2025 05:05:06 PM Interpretation: Performing Lab: Notes/Report: [facility] , Sodium 140 136-145 mmol/L [...] 0.9 Performing Lab: see note ML - [facility] LB LIPID PROFILE Reviewed date:04/09/2025 05:05:06 PM Interpretation: Performing Lab: Notes/Report: [facility] , Triglycerides 105 <=150 mg/dL [...] RISK Performing Lab: see note ML - [facility] LB FREE T3 Reviewed date:04/09/2025 05:05:06 PM Interpretation: Performing Lab: Notes/Report: [facility] , Free T3 3.07 2.18-3.98 pg/mL Performing Lab: see note ML - [facility] LB Reason For Referral No Information Medications Medication SIG (Take, Route, Frequency, Duration) Notes Start Date End Date Status glyBURIDE Micronized 6 MG Take 1 tablet by mouth twice daily for 90 Active metFORMIN HCl 500 MG Take 1 tablet by [facility] 4 times daily for 90 days Active Liothyronine Sodium 5 MCG Take 2 tablets by mouth once daily for 90 Active Revlimid 5 MG Oral for 28 Days Active Jardiance 10 MG Take [address] [facility] once daily for 90 days Active Nystatin 716817 UNIT/ML 5 mL SWISH & SWA LLOW Four times a day for 14 days 03/19/2023 Active oxyCODONE HCl 10 MG 1 Orally dx M54.12 q id prn for 30 days 05/07/2025 Active Doxycycline Monohydrate 100 MG 1 capsule [...] Administration Date Status Comme nts Flu, Fluad (56284) 65 yrs+, single-dose syringe (2892-1549) IM Intramuscular 07/24/2023 Administered Flu, Fluarix (37379) 6 mos and older, single-dose syringe () IM Intramuscular 09/05/2024 Administered Social History Tobacco [...] Problem Status W/U Status Risk Notes Problem 482265857 Multiple myeloma not having achieved remission (C90.00) Active confirmed Problem Information temporarily unavailable Monoclonal gammopathy (D47.2) Active confirmed Problem 51547559 Type 2 diabetes mellitus with diabetic chronic kidney disease (E11.22) Active confirmed Problem 3633406 Osteitis deforma 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 unspecified bone (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.9) Active confirmed Problem Information temporarily unavailable Hyperlipidemia (E78.5) Active confirmed Problem Information temporarily unavailable Asthma (J45.909) Active confirmed Problem Information temporarily unavailable GERD (gastroesophageal reflux disease) (K21.9) Active confirmed Problem Information temporarily unavailable Cervical radiculopathy (M54.12) Active confirmed Problem Information temporarily unavailable Anxiety (F41.9) Active confirmed Problem Information temporarily unavailable Peripheral neuropathy (G62.9) Active confirmed Problem Information temporarily unavailable Eczema (L30.9) Active confirmed Problem Information temporarily unavailable Arthralgia (M25.50) Active confirmed Problem Information temporarily unavailable Lumbar disc disease (M51.9) Active confirmed Problem Information temporarily unavailable Ulcerative colitis (K51.90) Active confirmed Problem Information temporarily unavailable Cellulitis (L03.90) Active confirmed Problem Information temporarily unavailable Crohns disease (K50.90) Active confirmed Problem Information temporarily unavailable Acquired spondylolisthesis (M43.10) Active confirmed Problem Information temporarily unavailable Degenerative joint disease (M19.90) Active confirmed Problem Information temporarily unavailable Lumbosacral spondylosis (M47.817) Active confirmed Problem Information temporarily unavailable Bundle branch block, right (I45.10) Active confirmed Problem Information temporarily unavailable Hypercholesterolemia (E78.00) Active confirmed Problem 658343056 Elevated prostat e specific antigen [PSA] (R97.20) Active confirmed Problem Information temporarily unavailable Abnormal white blood cell (D72.9) Active confirmed Problem Information temporarily unavailable Myalgia (M79.10) Active confirmed Problem Information temporarily unavailable Diabetes (E11.9) Active confirmed Problem Information temporarily unavailable Diabetes mellitus (E11.9) Active confirmed Problem 356599290 Chronic kidney d isease, stage 3b (N18.32) Active confirmed Vital Signs Temperature 99.8 degrees Fahrenheit 08/15/2024 Blood pressure diastolic 50 mm Hg 12/12/2024 Height 69 in 12/12/2024 Blood pressure systolic 122 mm Hg 12/12/2024 Weight 195.6 lbs 12/12/2024 BMI 28.88 kg/m2 12/12/2024 Encounters Encounter Location Date Provider Diagnosis [address] [address] 06/25/2024 Doron Hoy Peripheral neuropath y G62.9 ; Ulcerative colitis K51.90 ; Diabetes mellitus E11.9 and Anxiety F41.[address] [address] 08/15/2024 Doron Hoy Cellulitis L03.[address] [address] 09/05/2024 Doron Hardyy Encounter for immunization Z23 [address] [address] 12/12/2024 Doron Hoy Lumbar disc disease M51.[address] [address] 04/09/2025 Doron Hoy Lumbar disc disease M51.[address] [address] 04/09/2025 Doron Hoy Abnormal white blood cell D72.9 and Elevated PSA R97.[address] [address] 04/17/2025 Doron Hoy [facility] [address] [place] [address] 04/26/2025 Doron Hardyy [facility] [address] [facility] [address] 05/07/2025 Doron Hoy Lumbar disc disease M51.9 [facility] [address] [place] [address] 11/11/2024 Doron Hoy Diabetes mellitus E1 1.9 [facility] [address] [place] [address] 01/12/2025 Doron Hoy Lumbar disc disease M51.9 [facility] [address] [place] [address] 02/09/2025 Doron Hoy Lumbar disc disease M51.9 [facility] [address] [place] [address] 03/02/2025 Doron Hoy [facility] [address] [place] [address] 03/12/2025 Doron Hoy Lumbar disc disease M51.9 [facility] [address] [place] [address] 04/08/2025 Doron Hoy Diabetes mellitus E1 1.9 ; Peripheral neuropathy G62.9 ; Anxiety F41.9 ; Hyperlipidemia E78.5 and Elevated PSA R97.20 [facility] [address] [facility] [address] 08/20/2024 Doron Hoy Cellulitis L03.90 [facility] [address] [place] [address] 08/25/2024 Doron Hoy [facility] [address] [place] [address] 08/26/2024 Doron Hoy [facility] [address] [place] [address] 09/05/2024 Doron Hoy Diabetes mellitus E1 1.9 [facility] [address] [facility] [address] 10/13/2024 Doron Hoy Diabetes mellitus E1 1.9 [facility] [address] [place] [address] 10/29/2024 Doron Hoy [facility] [address] [place] [address] 06/04/2024 Doron Hoy Diabetes mellitus E1 1.9 [facility] [address] [place] [address] 07/02/2024 Doron Hoy Diabetes mellitus E1 1.9 [facility] [address] [place] [address] 07/29/2024 Doron Hoy Diabetes mellitus E1 1.9 Assessments Encounter Date Diagnosis (ICD Code) Assessment Notes Treatment Notes Treatment Clinical Notes Section Notes 06/25/2024 Peripheral neuropathy (ICD-10 - G62.9) stabel 06/25/2024 Ulcerative colitis (ICD-10 - K51.90) change in metfomin january nhelp 08/15/2024 Cellulitis (ICD-10 - L03.90) 09/05/2024 Encounter for immunization (ICD-10 - Z23) 12/12/2024 Lumbar disc disease (ICD-10 - M51.9) 06/04/2024 Diabetes mellitus (ICD-10 - E11.9) 07/02/2024 [...] D72.9) 04/09/2025 Elevated PSA (ICD-10 - R97.20) 05/07/2025 Lumbar disc disease (ICD-10 - M51.9) 04/08/2025 Anxiety (ICD-10 - F41.9) 06/25/2024 Diabetes [...] BLOOD, FECAL, IMMUNOASSAY 025 CBC W/AUTO DIFF 04/08/2025 CBC W/AUTO DIFF 04/14/2024 CBC AUTO DIFF 04/09/2025 THYROID PANEL (T4/TSH/FREE T3) 4 THYROID PANEL (T4/TSH/FREE T3) 5 THYROID PANEL (T4/TSH/FREE T3) 3 Free PSA 04/15/2024 PSA Total+% Free 04/15/2024 PSA, SCREENING 04/14/2024 PSA, SCREENING 04/08/2025 Lipid Panel 04/08/2025 Lipid Panel 04/14/2024 Next Appt Details Provider Name:Doron Young, 10:15:00 AM, [address] [place], [address], Insurance Providers Payer Name Payer Address Payer Phone Subscriber Number Group Number Insured Name Patient Relationship to Insured Coverage Start Date Coverage End Date [place] [address] [place] [address] [id number] Zach Manuel Self - patient is the insured [employer] [address] [place], [place] [id number] PLAN Mariajose ManuelZach Self - patient is the insured Medications [...] G62.9 Hypercholesterolemia E78.00 Surgical History Surgery Date(Month/Year) APPENDECTOMY TONSILLECTOMY,OVER 12 YRS Colectomy Bladder removal Inguinal Hreniorrhaphy, left 02/2010 Spermatocele- excision 02/2010 Reduction&internal fixation subtrochante lucrecia Rt Femur 01/2019 Bilat Cataract extraction
--- OUTSIDE RECORDS SUMMARY | 2025-05-24 06:56 | XMS_ITS | Encounter Summary ---
Author Organization [facility] Address [address] [place], [place] [address] Care Team Providers Care Talent Analyst Name Role Phone Jose Alberto Young MD Primary Care Provider [phone] Source Comments In the event this information is protected by the Federal Confidentiality of Alcohol and Drug AbusePatient Records regulations: The Federal rules restrict any use of the information to criminally investigate or prosecute any alcohol or drug abuse patient.[facility] Reason for Visit * Reason Onset Date Comments Refill Request 04/30/2025 Encounter Details Date Type Department Care Team (Late st Contact Info) Description 04/30/2025 Refill [facility] [address] [place] [address] [place] [address] Kleber Plaza MD [address] [place] [address] Refill Request Social History Tobacco Use Types [...] is lower risk 4 03/06/2023 Data from: https://www.neighborhoodatlas.[facility]/. Last address used for calculation [address] [...] [facility] [address] [facility] [place] [address] 6 month follow up with lab 08/18/2025 10:30 AM EST Visit (SP) Office Hematology/Oncology [address] [facility] [place] [address], MAGGIE.CERAMIC ENGINEERING PROFESSOR [address] [facility] [place] [address] 6 month follow up with lab 08/18/2025 11:00 AM [facility] Hematology/Oncology [address] [place] [address] [place] [address] 6 month follow up with lab documented as of this encounter Visit Diagnoses Not on filedocumented in this encounter Care Teams Talent Analyst Relationship Specialty Start Date End Date Jose Alberto Young MD [address] [place] [address] PCP - General 01/27/03 documented as of this encounter
--- OUTSIDE RECORDS SUMMARY | 2025-05-24 06:56 | XMS_ITS | Encounter Summary ---
Author Organization Address [address] [place], [place] [address] Care Team Providers Care Pharmaceutical Worker Name Role Phone Jose Alberto Young MD Primary Care Provider [phone] Source Comments In the event this information is protected by the Federal Confidentiality of Alcohol and Drug AbusePatient Records regulations: The Federal rules restrict any use of the information to criminally investigate or prosecute any alcohol or drug abuse patient. Encounter Details Date Type Department Care Team [...] Description 08/18/2025 10:15 AM EST Office Visit [facility] [address] [place] [address] 6 month follow up with lab 08/18/2025 10:30 AM EST Visit (SP) Office Hematology/Oncology [address] [facility] [address] APRN.ENGINEERING DESIGN SUPERVISOR [address] [place] [address] 6 month follow up with lab 08/18/2025 11:00 AM EST [facility] Hematology/Oncology [address] [facility] [address] 6 month follow up with lab documented as of this encounter Visit Diagnoses Not on filedocumented in this encounter Care Teams Pharmaceutical Worker Relationship Specialty Start Date End Date Jose Alberto Young MD [address] [facility] [place] [address] PCP - General 01/27/03 documented as of this encounter
--- OUTSIDE RECORDS SUMMARY | 2025-05-24 06:56 | XMS_ITS | Encounter Summary ---
Author Organization [facility] Address [address] [place], [place] [address] Care Team Providers Care Sinter Machine Operator Name Role Phone Jose Alberto Young MD Primary Care Provider [phone] Source Comments In the event this information is protected by the Federal Confidentiality of Alcohol and Drug AbusePatient Records regulations: The Federal rules restrict any use of the information to criminally investigate or prosecute any alcohol or drug abuse patient.[facility] Reason for Visit * Reason Onset Date Comments Refill Request 03/31/2025 Encounter Details Date Type Department Care Team (Late st Contact Info) Description 03/31/2025 Refill [facility] [address] [place] [address] [place] [address] Kleber Plaza MD [address] [address] Refill Request Social History Tobacco Use Types [...] risk 4 03/06/2023 Data from: https://www.neighborhoodatlas.[facility]/. Last address used for calculation [address] [...] Description 08/18/2025 10:15 AM EST Office Visit [facility] [address] [facility] [place] [address] 6 month follow up with lab 08/18/2025 10:30 AM EST Visit (SP) Office Hematology/Oncology [address] [facility] [place] [address], MAGGIE.HOSPITAL SECRETARY [address] [facility] [place] [address] 6 month follow up with lab 08/18/2025 11:00 AM [facility] Hematology/Oncology [address] [place] [address] [place] [address] 6 month follow up with lab documented as of this encounter Visit Diagnoses Not on filedocumented in this encounter Care Teams Sinter Machine Operator Relationship Specialty Start Date End Date Jose Alberto Young MD [address] [place] [address] PCP - General 01/27/03 documented as of this encounter
--- OUTSIDE RECORDS SUMMARY | 2025-05-24 06:56 | XMS_ITS | Clinical Summary ---
Author Organization [facility] Address [address] [place] [address] Phone Care Team Providers Care Hand Knitter Name Role Phone Unavailable Primary Care Provider [...]
--- OUTSIDE RECORDS SUMMARY | 2025-05-24 06:56 | XMS_ITS | Clinical Summary ---
Author Organization [facility] Address [address] [place] [address] Care Team Providers Care Office Executive Name Role Phone Unavailable Primary Care Provider [...]
--- OUTSIDE RECORDS SUMMARY | 2025-05-24 06:56 | XMS_ITS | Clinical Summary ---
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 21 capsule 04/30/20 25 9:45 AM EDT 025 Active lenalidomide (REVLIMID) 5 mg capsule Take 1 capsule by mouth daily for 21 days on and 7 days off. 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 Multiple myeloma 09/25/2012 Encounters Date Type Department Care Team Description 04/30/2025 Refill [facility] [address] [place] [id number] Kleber Plaza MD Refill Request 03/31/2025 Refill [facility] [address] [place] [address] Kleber Plaza MD Refill Request 02/27/2025 Refill [facility] [address] [place] [id number] Uriel Gunter MD Refill Request from Last 3 Months Immunizations Immunization Administration Dates Next Due COVID-19 original vaccine, a ge 12+ yr, monovalent ([employer] - PURPLE TOP) 06/28/2021,11/11/2020,10/22/2020 COVID-19 vaccine, unspecified [...] is lower risk 4 03/06/2023 Data from: https://www.neighborhoodatlas.medicine.[facility].edu/. Last address used for calculation [address] [...] Description 08/18/2025 10:15 AM EST Office Visit 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 [address] [place] [address] 6 month follow up with lab 08/18/2025 11:00 AM [facility] Hematology/Oncology [address] [place] [address] 6 month follow up with lab Health [...] Procedure Name Priority Date/Time Associated Diagnosis Comments CBC + DIFF Routine 02/17/2025 11:02 AM EDT Multiple myeloma not having achieved remission (HCC) COMPREHENSIVE METABOLIC PANEL Routine 02/17/2025 11:02 AM EDT Multiple myeloma not having achieved remission (HCC) from Last 3 Months or Most Recently Relevant to Health Maintenance Results * (ABNORMAL) COMPREHENSIVE METABOLIC PANEL (02/17/2025 11:02 AM EDT) Pathologist [facility] Protein, Total 7.0 6.3 - 8.0 g/dL 02/17/2025 2:54 PM EDT [facility] Comment:Corrected result: Pr eviously reported as 6.6 g/dL on 02/17/2025 at 11:40 AM EDT. Albumin 4.2 3.9 - 4.9 g/dL 02/17/2025 2:54 PM EDT [facility] Calcium, Total 8.5 8.5 - 10.2 mg/dL 02/17/2025 2:54 PM EDT [facility] Comment:Corrected result: Pr eviously reported as 8.3 mg/dL on 02/17/2025 at 11:40 AM EDT. Bilirubin, Total 1.7(H) 0.2 - 1.3 mg/dL 02/17/2025 2:54 PM EDT [facility] Alkaline Phosphatase 95 38 - 113 U/L 02/17/2025 2:54 PM EDT [facility] Comment:Corrected result: Pr eviously reported as 99 U/L on 02/17/2025 at 11:40 AM EDT. AST 22 14 - 40 U/L 02/17/2025 2:54 PM EDT [facility] Comment:Corrected result: Pr eviously reported as 15 U/L on 02/17/2025 at 11:40 AM EDT. ALT 15 10 - 54 U/L 02/17/2025 2:54 PM EDT [facility] Comment:Corrected result: Pr eviously reported as 12 U/L on 02/17/2025 at 11:40 AM EDT. Glucose 185(H) 74 - 99 mg/dL 02/17/2025 2:54 PM EDT [facility] Comment: The [place] [employer] (ADA) provides guidance for cutoff [...] Standards of Medical Care in Diabetes 2016, [place] [employer]. Diabetes Care. 2016.39(Suppl 1). Corrected result: Previously reported as 189 mg/dL on 02/17/2025 at 11:40 AM EDT. BUN 23 9 - 24 mg/dL 02/17/2025 2:54 PM EDT [facility] Comment:Corrected result: Pr eviously reported as 25 mg/dL on 02/17/2025 at 11:40 AM EDT. Creatinine 1.60(H) 0.73 - 1.22 mg/dL 02/17/2025 2:54 PM EDT [facility] Sodium 138 136 - 144 mmol/L 02/17/2025 2:54 PM EDT [facility] Potassium 4.6 3.7 - 5.1 mmol/L 02/17/2025 2:54 PM EDT [facility] Chloride 101 98 - 107 mmol/L 02/17/2025 2:54 PM EDT [facility] CO2 26 22 - 30 mmol/L 02/17/2025 2:54 PM EDT [facility] Anion Gap 11 8 - 15 mmol/L 02/17/2025 2:54 PM EDT [facility] Estimated Glomerular Filtration Rate 44(L) >=60 mL/min/1. 73m 02/17/2025 2:54 PM EDT [facility] Comment:Estimated Glomerular Filtration Rate (eGFR) [...] Uriel Gunter MD LABORATORY Final Re sult [facility] [address] [facility] [address] [address], * (ABNORMAL) COMPLETE BLOOD COUNT AND DIFFERENTIAL (02/17/2025 11:02 AM EDT) WBC 5.51 3.70 - 11.00 k/uL 02/17/2025 11:15 AM EDT [facility] RBC 4.42 4.20 - 6.00 m/uL 02/17/2025 11:15 AM EDT [facility] Hemoglobin 15.4 13.0 - 17.0 g/dL 02/17/2025 11:15 AM EDT [facility] Hematocrit 44.2 39.0 - 51.0 % 02/17/2025 11:15 AM EDT [facility] MCV 100.0 80.0 - 100.0 fL 02/17/2025 11:15 AM EDT [facility] MCH 34.8(H) 26.0 - 34.0 pg 02/17/2025 11:15 AM EDT [facility] MCHC 34.8 30.5 - 36.0 g/dL 02/17/2025 11:15 AM EDT [facility] RDW-CV 14.5 11.5 - 15.0 % 02/17/2025 11:15 AM EDT [facility] Platelet Count 217 150 - 400 k/uL 02/17/2025 11:15 AM EDT [facility] MPV 10.6 9.0 - 12.7 fL 02/17/2025 11:15 AM EDT [facility] Neutrophils % 56.6 % 02/17/2025 11:15 AM EDT [facility] Abs Neut 3.12 1.45 - 7.50 k/uL 02/17/2025 11:15 AM EDT [facility] Lymphocytes % 19.8 % 02/17/2025 11:15 AM EDT [facility] Abs Lymph 1.09 1.00 - 4.00 k/uL 02/17/2025 11:15 AM EDT [facility] Monocytes % 14.5 % 02/17/2025 11:15 AM EDT [facility] Abs [place] 0.80 <0.87 k/uL 02/17/2025 11:15 AM EDT [facility] Eosinophils % 6.9 % 02/17/2025 11:15 AM EDT [facility] Abs Eosin 0.38 <0.46 k/uL 02/17/2025 11:15 AM EDT [facility] Basophils % 1.5 % 02/17/2025 11:15 AM EDT [facility] Abs Baso 0.08 <0.11 k/uL 02/17/2025 11:15 AM EDT [facility] Immature Granulocytes % 0.7 % 02/17/2025 11:15 AM EDT [facility] Abs Immature Gran 0.04 <0.10 k/uL 02/17/2025 11:15 AM EDT [facility] NRBC 0.0 /100 WBC 02/17/2025 11:15 AM EDT [facility] Absolute nRBC <0.01 <0.01 k/uL 02/17/2025 11:15 AM EDT [facility] Diff Type Auto 02/17/2025 11:15 AM EDT [facility] Blood BLOOD SPECIMEN / Unknown Venipuncture / Unknown 02/17/2025 11:02 AM EDT 02/17/2025 11:02 AM EDT us Uriel Gunter MD LABORATORY Final Re sult [facility] [address] [place] [address] from Last 3 Months or Most Recently Relevant to Health [place] [phone] [employer] Care Teams Aircraft Tool Maker Relationship Specialty Start Date End Date Jose Alberto Young MD [address] [place] [address] PCP - General 01/27/03
--- OUTSIDE RECORDS SUMMARY | 2025-05-24 06:57 | XMS_ITS | CCD ---
Author Organization [facility] Care Team Providers Care Plastic Finisher Name Role Phone HANNA MATHIAS Primary Care Unavailable SELF, REFERRED Referring Unavailable TRISH CEVALLOS Admitting Unavailable FRANCIS SAVAGE Attending Unavailable AL Procedure Practitioner Unavailab DANIELA Pennington Surgeon Unavailable AL Procedure Practitioner Unavailab FRANCIS Cruz Surgeon Unavailable [...] Care Unavailable STEW, DR FERREIRA Admitting Unavailable TSEW, DR FERREIRA Attending Unavailable STEW, DR FERREIRA [...] Provider UnavailHanna Villafuerte MD Primary Care Provider [phone] STEW HANNA M Referring Unavailable MARY ZARATE [...] Tobramycin Drug Allergy 0 Other: See Comments [facility] Macrolides (antibiotic) (2 sources) Azithromycin Drug Allergy 7 Unknown [facility] Sulfonamides (antibiotic) (1 source) Sulfonamides (Antibiotic) Drug Allergy 2 Unknown [facility] (4 sources) Azithromycin; Translations: [AZITHROMYCIN] Drug Allergy 8 [facility] Repository (3 sources) Sulfonamides (Antibiotic); Translations: [SULFA (SULFONAMIDE ANTIBIOTICS)] Drug allergy (disorder) 2 [facility] Repository (20 sources) Azithromycin Drug Allergy 8 Unknown, Other (See Comments) [facility] (20 sources) Erythromycin; Translations: [ERYTHROMYCIN] Drug Allergy 7 Unknown [facility] (20 sources) Sulfonamides (Antibiotic) Drug Allergy 2 Unknown, Other (See Comments) [facility] (20 sources) Tobramycin; Translations: [TOBRAMYCIN] Drug Allergy 0 Other: See Comments, GI Disturbance [facility] (1 source) Erythromycin Drug Allergy [facility] (2 sources) Neomycin; Translations: [NEOMYCIN] Drug Allergy 5 Other (See Comments) [facility] (2 sources) Pseudoephedrine; Translations: [PSEUDOEPHEDRINE ] Drug Allergy 5 Other (See Comments) [facility] Medications Current Medications Medication Drug Class(es) Dates [...] Comment on above: Take 1 capsule by [facility] once daily. hydrocortisone 10 mg/ml / neomycin 3.5 mg/ml / polymyxin b 87326 unt/ml otic solution (20 sources) Aminoglycoside Antibacterial, [...] Long-term current use of systemic steroid; Translations: [[facility] (current) use of systemic steroids] Onset: 10-20-2015 [...] (Bld)on 02-17-2025 Basophils (Bld) [#/Vol] 0.08 10*3/uL [facility] Basophils/100 WBC (Bld) 1.5 % [facility] Differential cell count method Nom (Bld) Auto [facility] Eosinophils (Bld) [#/Vol] 0.38 10*3/uL [facility] Eosinophils/100 WBC (Bld) 6.9 % [facility] Erythrocyte distribution width (RBC) [Ratio] 14.5 % 11.5 - 15.0 % [facility] Hematocrit (Bld) [Volume fraction] 44.2 % 39.0 - 51.0 % [facility] Hemoglobin (Bld) [Mass/Vol] 15.4 g/dL 13.0 - 17.0 g/dL [facility] Immature granulocytes (Bld) [#/Vol] 0.04 10*3/uL [facility] Immature granulocytes/100 WBC (Bld) 0.7 % [facility] Interpretation and review of laboratory results Abnormal [facility] Lymphocytes (Bld) [#/Vol] 1.09 10*3/uL [facility] Lymphocytes/100 WBC (Bld) 19.8 % [facility] MCH (RBC) [Entitic mass] 34.8 pg High 26.0 - 34.0 pg [facility] MCHC (RBC) [Mass/Vol] 34.8 g/dL 30.5 - 36.0 g/dL [facility] MCV (RBC) [Entitic vol] 100 fL 80.0 - 100.0 fL [facility] Monocytes (Bld) [#/Vol] 0.8 10*3/uL [facility] Monocytes/100 WBC (Bld) 14.5 % [facility] Neutrophils (Bld) [#/Vol] 3.12 10*3/uL [facility] Neutrophils/100 WBC (Bld) 56.6 % [facility] Nucleated RBC (Bld) [#/Vol] [facility] Nucleated RBC/100 WBC (Bld) [Ratio] 0 % /100 WBC [facility] Platelet mean volume (Bld) [Entitic vol] 10.6 fL 9.0 - 12.7 fL [facility] Platelets (Bld) [#/Vol] 217 10*3/uL [facility] RBC (Bld) [#/Vol] 4.42 10*6/uL 4.20 - 6.0 0 m/uL [facility] WBC (Bld) [#/Vol] 5.51 10*3/uL [facility] Basophils (Bld) [#/Vol] 0.08 10*3/uL Normal <0.11 [facility] Comment on above: Order Comment: Speci men Type: BLOOD SPECIMENOrdering Facility: [facility] Address: [address] [place] [address] Performed By: #### 5 7021-8 ####[facility] LABCLIA [id number] [place] [address] Basophils/100 WBC (Bld) 1.5 % Normal [facility] Comment on above: Order Comment: Speci men Type: BLOOD SPECIMENOrdering Facility: [facility] Address: [address] [place] [address] Performed By: #### 5 7021-8 ####[facility] LABCLIA [id number] [place] [address] Differential cell count method Nom (Bld) Auto Normal [facility] Comment on above: Order Comment: Speci men Type: BLOOD SPECIMENOrdering Facility: [facility] Address: [address] [place] [address] Performed By: #### 5 7021-8 ####[facility] LABCLIA [id number] [place] [address] Eosinophils (Bld) [#/Vol] 0.38 10*3/uL Normal <0.46 [facility] Comment on above: Order Comment: Speci men Type: BLOOD SPECIMENOrdering Facility: [facility] Address: [address] [place] [address] Performed By: #### 5 7021-8 ####[facility] LABCLIA [id number] [place] [address] Eosinophils/100 WBC (Bld) 6.9 % Normal [facility] Comment on above: Order Comment: Speci men Type: BLOOD SPECIMENOrdering Facility: [facility] Address: [address] [place] [address] Performed By: #### 5 7021-8 ####[facility] LABCLIA [id number] [place] [address] Erythrocyte distribution width (RBC) [Ratio] 14.5 % Normal 11.5-15.0 [facility] Comment on above: Order Comment: Speci men Type: BLOOD SPECIMENOrdering Facility: [facility] Address: [address] [place] [address] Performed By: #### 5 7021-8 ####[facility] LABIA [id number] [place] [address] Hematocrit (Bld) [Volume fraction] 44.2 % Normal 39.0-51.0 [facility] Comment on above: Order Comment: Speci men Type: BLOOD SPECIMENOrdering Facility: [facility] Address: [address] [place] [address] Performed By: #### 5 7021-8 ####[facility] LABIA [id number] [place] [address] Hemoglobin (Bld) [Mass/Vol] 15.4 g/dL Normal 13.0-17.0 [facility] Comment on above: Order Comment: Speci men Type: BLOOD SPECIMENOrdering Facility: [facility] Address: [address] [place] [address] Performed By: #### 5 7021-8 ####[facility] LABIA [id number] [place] [address] Immature granulocytes (Bld) [#/Vol] 0.04 10*3/uL Normal <0.10 [facility] Comment on above: Order Comment: Speci men Type: BLOOD SPECIMENOrdering Facility: [facility] Address: [address] [place] [address] Performed By: #### 5 7021-8 ####[facility] LABCLIA [id number] [place] [address] Immature granulocytes/100 WBC (Bld) 0.7 % Normal [facility] Comment on above: Order Comment: Speci men Type: BLOOD SPECIMENOrdering Facility: [facility] Address: [address] [place] [address] Performed By: #### 5 7021-8 ####[facility] LABCLIA [id number] [place] [address] Lymphocytes (Bld) [#/Vol] 1.09 10*3/uL Normal 1.00-4.00 [facility] Comment on above: Order Comment: Speci men Type: BLOOD SPECIMENOrdering Facility: [facility] Address: [address] [place] [address] Performed By: #### 5 7021-8 ####[facility] LABCLIA [id number] [place] [address] Lymphocytes/100 WBC (Bld) 19.8 % Normal [facility] Comment on above: Order Comment: Speci men Type: BLOOD SPECIMENOrdering Facility: [facility] Address: [address] [place] [address] Performed By: #### 5 7021-8 ####[facility] LABCLIA [id number] [place] [address] MCH (RBC) [Entitic mass] 34.8 pg High 26.0-34.0 [facility] Comment on above: Order Comment: Speci men Type: BLOOD SPECIMENOrdering Facility: [facility] Address: [address] [place] [address] Performed By: #### 5 7021-8 ####[facility] LABCLIA [id number] [place] [address] MCHC (RBC) [Mass/Vol] 34.8 g/dL Normal 30.5-36.0 [facility] Comment on above: Order Comment: Speci men Type: BLOOD SPECIMENOrdering Facility: [facility] Address: [address] [place] [address] Performed By: #### 5 7021-8 ####[facility] LABCLIA [id number] [place] [address] MCV (RBC) [Entitic vol] 100.0 fL Normal 80.0-100.0 [facility] Comment on above: Order Comment: Speci men Type: BLOOD SPECIMENOrdering Facility: [facility] Address: [address] [place] [address] Performed By: #### 5 7021-8 ####[facility] LABCLIA [id number] [place] [address] Monocytes (Bld) [#/Vol] 0.80 10*3/uL Normal <0.87 [facility] Comment on above: Order Comment: Speci men Type: BLOOD SPECIMENOrdering Facility: [facility] Address: [address] [place] [address] Performed By: #### 5 7021-8 ####[facility] LABCLIA [id number] [place] [address] Monocytes/100 WBC (Bld) 14.5 % Normal [facility] Comment on above: Order Comment: Speci men Type: BLOOD SPECIMENOrdering Facility: [facility] Address: [address] [place] [address] Performed By: #### 5 7021-8 ####[facility] LABCLIA [id number] [place] [address] Neutrophils (Bld) [#/Vol] 3.12 10*3/uL Normal 1.45-7.50 [facility] Comment on above: Order Comment: Speci men Type: BLOOD SPECIMENOrdering Facility: [facility] Address: [address] [place] [address] Performed By: #### 5 7021-8 ####[facility] LABCLIA [id number] [place] [address] Neutrophils/100 WBC (Bld) 56.6 % Normal [facility] Comment on above: Order Comment: Speci men Type: BLOOD SPECIMENOrdering Facility: [facility] Address: [address] [place] [address] Performed By: #### 5 7021-8 ####[facility] LABCLIA [id number] [place] [address] Nucleated RBC (Bld) [#/Vol] 10*3/uL Normal <0.01 [facility] Comment on above: Order Comment: Speci men Type: BLOOD SPECIMENOrdering Facility: [facility] Address: [address] [place] [address] Performed By: #### 5 7021-8 ####[facility] LABCLIA [id number] [place] [address] Nucleated RBC/100 WBC (Bld) [Ratio] 0.0 /100 WBC Normal [facility] Comment on above: Order Comment: Speci men Type: BLOOD SPECIMENOrdering Facility: [facility] Address: [address] [place] [address] Performed By: #### 5 7021-8 ####[facility] LABCLIA [id number] [place] [address] Platelet mean volume (Bld) [Entitic vol] 10.6 fL Normal 9.0-12.7 [facility] Comment on above: Order Comment: Speci men Type: BLOOD SPECIMENOrdering Facility: [facility] Address: [address] [place] [address] Performed By: #### 5 7021-8 ####[facility] LABCLIA [id number] [place] [address] Platelets (Bld) [#/Vol] 217 10*3/uL Normal 150-400 [facility] Comment on above: Order Comment: Speci men Type: BLOOD SPECIMENOrdering Facility: [facility] Address: [address] [place] [address] Performed By: #### 5 7021-8 ####[facility] LABIA [id number] [place] [address] RBC (Bld) [#/Vol] 4.42 10*6/uL Normal 4.20-6.00 [facility] Comment on above: Order Comment: Speci men Type: BLOOD SPECIMENOrdering Facility: [facility] Address: [address] [place], [place] [address] Performed By: #### 5 7021-8 ####[facility] LABIA [id number] [place] [address] WBC (Bld) [#/Vol] 5.51 10*3/uL Normal 3.70-11.00 [facility] Comment on above: Order Comment: Speci men Type: BLOOD SPECIMENOrdering Facility: [facility] Address: [address] [place], [place] [address] Performed By: #### 5 7021-8 ####[facility] [id number] [place] [address] CNOVSPon 02-17-2025 CNOVS Visit (SP) Office (HEMAS[place]) ZACH MANUEL ([id number]) 1945 M Date Time Provider Department 02/17/25 [...] mellitus (HCC) Hyperlipidemia 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 Normal [facility] metabolic 2000 panelon 02-17-2025 Albumin [Mass/Vol] 4.2 g/dL 3.9 - 4.9 g/dL [facility] ALP [Catalytic activity/Vol] 95 U/L 38 - 113 U/L [facility] Comment on above: Corrected result: Pr eviously reported as 99 U/L on 02/17/2025 at 11:40 AM EDT. ALT [Catalytic activity/Vol] 15 U/L 10 - 54 U/L [facility] Comment on above: Corrected result: Pr eviously reported as 12 U/L on 02/17/2025 at 11:40 AM EDT. Anion gap [Moles/Vol] 11 mmol/L 8 - 15 mmol/L [facility] AST [Catalytic activity/Vol] 22 U/L 14 - 40 U/L [facility] Comment on above: Corrected result: Pr eviously reported as 15 U/L on 02/17/2025 at 11:40 AM EDT. Bilirubin [Mass/Vol] 1.7 mg/dL High 0.2 - 1.3 mg/dL [facility] Calcium [Mass/Vol] 8.5 mg/dL 8.5 - 10. 2 mg/dL [facility] Comment on above: Corrected result: Pr eviously reported as 8.3 mg/dL on 02/17/2025 at 11:40 AM EDT. Chloride [Moles/Vol] 101 mmol/L 98 - 107 mmol/L [facility] CO2 [Moles/Vol] 26 mmol/L 22 - 30 mmol/L [facility] Creatinine [Mass/Vol] 1.6 mg/dL High 0.73 - 1.22 mg/dL [facility] GFR/1.73 sq M.predicted among non-blacks MDRD (S/P/Bld) [Vol rate/Area] 44 mL/min/{1.73_m2} Low - PINF [facility] inic Comment on above: Estimated Glomerular Filtration [...] 185 mg/dL High 74 - 99 mg/dL [facility] Comment on above: The [place] Di[employer] Association (ADA) provides guidance for [...] Standards of Medical Care in Diabetes 2016, [employer]. Diabetes Care. 2016.39(Suppl 1). Corrected result: Previously reported as 189 mg/dL on 02/17/2025 at 11:40 AM EDT. Interpretation and review of laboratory results Abnormal [facility] Potassium [Moles/Vol] 4.6 mmol/L 3.7 - 5.1 mmol/L [facility] Protein [Mass/Vol] 7 g/dL 6.3 - 8.0 g/dL [facility] Comment on above: Corrected result: Pr eviously reported as 6.6 g/dL on 02/17/2025 at 11:40 AM EDT. Sodium [Moles/Vol] 138 mmol/L 136 - 144 mmol/L [facility] Urea nitrogen [Mass/Vol] 23 mg/dL 9 - 24 mg/dL [facility] Comment on above: Corrected result: Pr eviously reported as 25 mg/dL on 02/17/2025 at 11:40 AM EDT. [facility] Albumin [Mass/Vol] 4.2 g/dL Normal 3.9-4.9 [facility] Comment on above: Order Comment: Speci men Type: BLOOD SPECIMENOrdering Facility: [facility] Address: [address] [place] [address] [place] [address] Performed By: #### 2 4323-8 ####[facility] LABCLIA [id number] [place] [address] [place] ALP [Catalytic activity/Vol] 95 U/L Normal 38-113 [facility] Comment on above: Order Comment: Speci men Type: BLOOD SPECIMENOrdering Facility: [facility] Address: [address] [place] [address] Result Comment: Kd ected result: Previously reported as 99 U/L on 02/17/2025 at 11:40 AM EDT. Performed By: #### 2 4323-8 ####[facility] LABCLIA [id number] [place] [address] [place] ALT [Catalytic activity/Vol] 15 U/L Normal 10-54 [facility] Comment on above: Order Comment: Speci men Type: BLOOD SPECIMENOrdering Facility: [facility] Address: [address] [place] [address] Result Comment: Kd ected result: Previously reported as 12 U/L on 02/17/2025 at 11:40 AM EDT. Performed By: #### 2 4323-8 ####[facility] LABIA [id number] [place] [address] [place] Anion gap [Moles/Vol] 11 mmol/L Normal 8-15 [facility] Comment on above: Order Comment: Speci men Type: BLOOD SPECIMENOrdering Facility: [facility] Address: [address] [place] [address] Performed By: #### 2 4323-8 ####[facility] LABCLIA [id number] [place] [address] [place] AST [Catalytic activity/Vol] 22 U/L Normal 14-40 [facility] Comment on above: Order Comment: Speci men Type: BLOOD SPECIMENOrdering Facility: [facility] Address: [address] [place] [address] Result Comment: Kd ected result: Previously reported as 15 U/L on 02/17/2025 at 11:40 AM EDT. Performed By: #### 2 4323-8 ####[facility] LABCLIA [id number] [address] [place] [address] [place] Bilirubin [Mass/Vol] 1.7 mg/dL High 0.2-1.3 [facility] Comment on above: Order Comment: Speci men Type: BLOOD SPECIMENOrdering Facility: [facility] Address: [address] [place] [address] Performed By: #### 2 4323-8 ####[facility] LABCLIA [id number] [place] [address] [place] Calcium [Mass/Vol] 8.5 mg/dL Normal 8.5-10.2 [facility] Comment on above: Order Comment: Speci men Type: BLOOD SPECIMENOrdering Facility: [facility] Address: [address] [place] [address] Result Comment: Kd ected result: Previously reported as 8.3 mg/dL on 02/17/2025 at 11:40 AM EDT. Performed By: #### 2 4323-8 ####[facility] LABCLIA [id number] [place] [address] [place] Chloride [Moles/Vol] 101 mmol/L Normal 98-107 [facility] Comment on above: Order Comment: Speci men Type: BLOOD SPECIMENOrdering Facility: [facility] Address: [address] [place] [address] Performed By: #### 2 4323-8 ####[facility] LABCLIA [id number] [facility] [address] [place] CO2 [Moles/Vol] 26 mmol/L Normal 22-30 [facility] Comment on above: Order Comment: Speci men Type: BLOOD SPECIMENOrdering Facility: [facility] Address: [address] [place] [address] Performed By: #### 2 4323-8 ####[facility] LABCLIA [id number] [facility] [address] [place] Creatinine [Mass/Vol] 1.60 mg/dL High 0.73-1.22 [facility] Comment on above: Order Comment: Michelle bueno Type: BLOOD SPECIMENOrdering Facility: [facility] Address: [address] [place] [address] Performed By: #### 2 4323-8 ####[facility] LABCLIA [id number] [place] [address] [place] Creatinine and Glomerular filtration rate.predicted panel (S/P/Bld) 44 mL/min/1.73m??? Low >=60 [facility] Comment on above: Order Comment: Michelle bueno Type: BLOOD SPECIMENOrdering Facility: [facility] Address: [address] [place] [address] Result Comment: Chanda mated Glomerular Filtration Rate [...] actual GFR. Performed By: #### 2 4323-8 ####[facility] LABCLIA [id number] [place] [address] [place] Glucose [Mass/Vol] 185 mg/dL High 74-99 [facility] Comment on above: Order Comment: Michelle bueno Type: BLOOD SPECIMENOrdering Facility: [facility] Address: [address] [place] [address] Result Comment: The [place] Diabetes Association (ADA) provides guidance for cutoff [...] Standards of Medical Care in Diabetes 2016, [place] [employer]. Diabetes Care. 2016.39(Suppl 1). Corrected result: Previously reported as 189 mg/dL on 02/17/2025 at 11:40 AM EDT. Performed By: #### 2 4323-8 ####[facility] LABCLIA [id number] [address] [address] [place] Potassium [Moles/Vol] 4.6 mmol/L Normal 3.7-5.1 [facility] Comment on above: Order Comment: Speci men Type: BLOOD SPECIMENOrdering Facility: [facility] Address: [address] [place], [place] [address] Performed By: #### 2 4323-8 ####[facility] LABCLIA [id number] [address] [address] [place] Protein [Mass/Vol] 7.0 g/dL Normal 6.3-8.0 [facility] Comment on above: Order Comment: Speci men Type: BLOOD SPECIMENOrdering Facility: [facility] Address: [address] [place] [address] Result Comment: Kd ected result: Previously reported as 6.6 g/dL on 02/17/2025 at 11:40 AM EDT. Performed By: #### 2 4323-8 ####[facility] LABIA [id number] [address] [address] [place] Sodium [Moles/Vol] 138 mmol/L Normal 136-144 [facility] Comment on above: Order Comment: Speci men Type: BLOOD SPECIMENOrdering Facility: [facility] Address: [address] [place], [place] [address] Performed By: #### 2 4323-8 ####[facility] LABCLIA [id number] [address] [address] [place] Urea nitrogen [Mass/Vol] 23 mg/dL Normal 9-24 [facility] Comment on above: Order Comment: Speci men Type: BLOOD SPECIMENOrdering Facility: [facility] Address: [address] [place] [address] Result Comment: Kd ected result: Previously reported as 25 mg/dL on 02/17/2025 at 11:40 AM EDT. Performed By: #### 2 4323-8 ####[facility] LABCLIA [id number] [address] [place] [address] [facility] [place] IMMUNOFIXATION SCREEN, SERUM on 02-17-2025 INTERPRETATION (MPA) Atypical restricted bands are present in the IgG and kappa regions. Consistent with IgG kappa monoclonal gammopathy. Normal [facility] Comment on above: Order Comment: Speci men Type: BLOOD SPECIMENOrdering Facility: [facility] Address: [address] [place] [address] Performed By: #### I FESC ####[facility] LABIA [id number] [address], [address] [place] MPA RESULT M protein is present. Abnormal No M p rotein is identified. [facility] Comment on above: Order Comment: Speci men Type: BLOOD SPECIMENOrdering Facility: [facility] Address: [address] [place] [address] Performed By: #### I FESC ####[facility] LABCLIA [id number] [address] [place] [address] [facility] [place] STAFF REVIEW ([facility]) Reviewed by Donaldo Rivas MD, Ph.D ([id number]) Normal [facility] Comment on above: Order Comment: Speci men Type: BLOOD SPECIMENOrdering Facility: [facility] Address: [address] [place] [address] Performed By: #### I FESC ####[facility] LABIA [id number] [address], [facility] [place] IMMUNOGLOBULINS,IGG,IGA,IGMo n 02-17-2025 IgA [Mass/Vol] 118 mg/dL Normal 70-400 [facility] Comment on above: Order Comment: Speci men Type: BLOOD SPECIMENOrdering Facility: [facility] Address: [address] [place] [address] Performed By: #### S ERIMM ####[facility] LABCLIA [id number] [place] [address] [place] IgG [Mass/Vol] 1245 mg/dL Normal 700-1600 [facility] Comment on above: Order Comment: Speci men Type: BLOOD SPECIMENOrdering Facility: [facility] Address: [address] [place] [address] Performed By: #### S ERIMM ####[facility] LABCLIA [id number] [place] [address] [place] IgM [Mass/Vol] 21 mg/dL Low 40-230 [facility] Comment on above: Order Comment: Speci men Type: BLOOD SPECIMENOrdering Facility: [facility] Address: [address] [place] [address] Performed By: #### S ERIMM ####[facility] LABIA [id number] [place] [address] [place] KAPPA/DANIELS,FREE,SERon 2024 Immunoglobulin light chains.kappa.free (S) [Mass/Vol] 37.4 mg/L High 3.3-19.4 [facility] Comment on above: Order Comment: Speci men Type: BLOOD SPECIMENOrdering Facility: [facility] Address: [address] [place] [address] Result Comment: Rare ly, increased serum free light chains levels may not be detected or accurately quantified due to prozone phenomenon or in high viscosity samples using this immunoturbidimetric assay. Correlation with other laboratory results and clinical findings is recommended. The [place] Free Light Chain was performed using the Binding Site Optilite immunoturbidimetric method. Result obtained with different assay methods or kits cannot be used interchangeably. Performed By: #### K LFRS ####[facility] LABCLIA [id number] [place] [address] [place] Immunoglobulin light chains.kappa/Immun oglobulin light chains.lambda (S) [Mass ratio] 1.65 Normal 0.26-1.65 [facility] Comment on above: Order Comment: Speci men Type: BLOOD SPECIMENOrdering Facility: [facility] Address: [address] [place] [address] Performed By: #### K LFRS ####[facility] LABCLIA [id number] [place] [address] [place] Immunoglobulin light chains.lambda.free [Mass/Vol] 22.7 mg/L Normal 5.7-26.3 [facility] Comment on above: Order Comment: Speci men Type: BLOOD SPECIMENOrdering Facility: [facility] Address: [address] [place] [address] Result Comment: Rare ly, increased serum free [...] used interchangeably. Performed By: #### K LFRS ####[facility] LABCLIA [id number] [place] [address] [place] PROTEIN ELECTROPHORESIS SERU M WITH TOÑITO (P)on 02-17-2025 Albumin [Mass/Vol] 4.01 g/dL Normal 3.43-5.41 [facility] Comment on above: Order Comment: Speci men Type: BLOOD SPECIMENOrdering Facility: [facility] Address: [address] [place] [address] Performed By: #### L [id number] ####[facility] LABIA [id number] [place] [address] [place] Alpha 1 globulin Elph [Mass/Vol] 0.23 g/dL Normal 0.18-0.43 [facility] Comment on above: Order Comment: Speci men Type: BLOOD SPECIMENOrdering Facility: [facility] Address: [address] [place] [address] Performed By: #### L [id number] ####[facility] LABCLIA [id number] [place] [address] [place] Alpha 2 globulin Elph [Mass/Vol] 0.66 g/dL Normal 0.42-0.98 [facility] Comment on above: Order Comment: Speci men Type: BLOOD SPECIMENOrdering Facility: [facility] Address: [address] [place] [address] Performed By: #### L [id number] ####[facility] LABCLIA [id number] [place] [address] [place] Beta globulin Elph [Mass/Vol] 0.73 g/dL Normal 0.61-1.17 [facility] Comment on above: Order Comment: Speci men Type: BLOOD SPECIMENOrdering Facility: [facility] Address: [address] [place] [address] Performed By: #### L [id number] ####[facility] LABCLIA [id number] [place] [address] [place] COMMENT (SERUM PROT ELECTRO) Monoclonal Protein analysis (immunofixation) is not indicated. Normal [facility] Comment on above: Order Comment: Speci men Type: BLOOD SPECIMENOrdering Facility: [facility] Address: [address] [place] [address] Performed By: #### L [id number] ####[facility] LABCLIA [id number] [place] [address] [place] Gamma globulin Elph [Mass/Vol] 1.08 g/dL Normal 0.53-1.51 [facility] Comment on above: Order Comment: Speci men Type: BLOOD SPECIMENOrdering Facility: [facility] Address: [address] [place] [address] Performed By: #### L [id number] ####[facility] LABCLIA [id number] [address] [place] [address] [place] INTERPRETATION COMMENT FOR PROTEIN ELECTROPHORESIS See separate immunofixation report for characterization of monoclonal gammopathy. Normal [facility] Comment on above: Order Comment: Speci men Type: BLOOD SPECIMENOrdering Facility: [facility] Address: [address] [place] [address] Performed By: #### L [id number] ####[facility] LABCLIA [id number] [address] [place] [address] [place] M-PROTEIN LOCATION Gamma Fraction 1 Normal [facility] Comment on above: Order Comment: Speci men Type: BLOOD SPECIMENOrdering Facility: [facility] Address: [address] [place] [address] Performed By: #### L [id number] ####[facility] LABCLIA [id number] [place] [id number] [place] Protein Fractions [Interp] An M protein is identified on protein electrophoresis. Abnormal No definitive M protein is identified on protein electrophores is. [facility] Comment on above: Order Comment: Speci men Type: BLOOD SPECIMENOrdering Facility: [facility] Address: [address] [place] [address] Performed By: #### L [id number] ####[facility] LABCLIA [id number] [address] [place] [address] [place] Protein.monoclonal Elph [Mass/Vol] 0.65 g/dL High <=0.00 [facility] Comment on above: Order Comment: Speci men Type: BLOOD SPECIMENOrdering Facility: [facility] Address: [address] [place], [place] [address] Performed By: #### L [id number] ####[facility] LABCLIA [id number] [address] [address] [place] SPE STAFF REVIEW Reviewed by Donaldo Rivas MD, Ph.D ([id number]) Normal [facility] Comment on above: Order Comment: Speci men Type: BLOOD SPECIMENOrdering Facility: [facility] Address: [address] [place] [address] Performed By: #### L [id number] ####[facility] LABCLIA [id number] [place] [id number] [place] Prot SerPl-mCncon 02-17-2025 Protein [Mass/Vol] 6.7 g/dL Normal 6.3-8.0 [facility] Comment on above: Order Comment: Speci men Type: BLOOD SPECIMENOrdering Facility: [facility] Address: [address] [place] [address] Performed By: #### 2 885-2 ####[facility] LABCLIA [id number] [address] [place] CNPVangie 02-13-2025 CNPN Telephone (HEMTSA) ZACH MANUEL ([id number]) 1945 M Date Time Provider Department 02/13/25 KEYONNA FUENTES HEMTSA During your visit today, we recorded the following information about you: Keyonna Fuentes RN 02/13/2025 11:04 AM Signed Pt in for OV and Aredia on Saturday 02/17, please place and sign more orders. Thanks! 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/20/2015 Left inguinal hernia [K40.90] 10/20/2015 Former smoker [Z87.891] 10/20/2015 Elevated prostate specific antigen (PSA) [R97.2*03/19/2020 Stage 3 chronic kidney disease, unspecified whe*03/06/2023 Encounter Status:Closed by AINSLEY WOODSON on 02/13/25 Normal [facility] ECG 12 leadon 10-10-2024 TRACEMASTERVUE [facility] CNPNon 05-29-2024 CNPN Telephone (HEMTSA) KALEBZACH ([id number]) 1945 M Date Time Provider Department 05/29/24 [...] Type 2 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*10/20/2015 Left inguinal hernia [K40.90] 10/20/2015 Former smoker [Z87.891] 10/20/2015 Elevated prostate specific antigen (PSA) [R97.2*03/19/2020 Stage 3 chronic kidney disease, unspecified whe*03/06/2023 Encounter Status:Closed by JUAN FERGUSON on 05/29/24 Normal [facility] CBC W Auto Differential pane l (Bld)on 05-27-2024 Basophils (Bld) [#/Vol] 0.09 10*3/uL Normal <0.11 [facility] Comment on above: Order Comment: Speci men Type: BLOOD SPECIMENOrdering Facility: [facility] Address: [address] [place] [address] Performed By: #### 5 7021-8 ####[facility] LABCLIA [id number] [place] [address] Basophils/100 WBC (Bld) 1.3 % Normal [facility] Comment on above: Order Comment: Speci men Type: BLOOD SPECIMENOrdering Facility: [facility] Address: [address] [place] [address] Performed By: #### 5 7021-8 ####[facility] LABCLIA [id number] [place] [address] Differential cell count method Nom (Bld) Auto Normal [facility] Comment on above: Order Comment: Speci men Type: BLOOD SPECIMENOrdering Facility: [facility] Address: [address] [place] [address] Performed By: #### 5 7021-8 ####[facility] LABCLIA [id number] [place] [address] Eosinophils (Bld) [#/Vol] 0.32 10*3/uL Normal <0.46 [facility] Comment on above: Order Comment: Speci men Type: BLOOD SPECIMENOrdering Facility: [facility] Address: [address] [place] [address] Performed By: #### 5 7021-8 ####[facility] LABCLIA [id number] [place] [address] Eosinophils/100 WBC (Bld) 4.7 % Normal [facility] Comment on above: Order Comment: Speci men Type: BLOOD SPECIMENOrdering Facility: [facility] Address: [address] [place] [address] Performed By: #### 5 7021-8 ####[facility] LABCLIA [id number] [place] [address] Erythrocyte distribution width (RBC) [Ratio] 13.8 % Normal 11.5-15.0 [facility] Comment on above: Order Comment: Speci men Type: BLOOD SPECIMENOrdering Facility: [facility] Address: [address] [place] [address] Performed By: #### 5 7021-8 ####[facility] LABCLIA [id number] [place] [address] Hematocrit (Bld) [Volume fraction] 37.7 % Low 39.0-51.0 [facility] Comment on above: Order Comment: Speci men Type: BLOOD SPECIMENOrdering Facility: [facility] Address: [address] [place] [address] Performed By: #### 5 7021-8 ####[facility] LABCLIA [id number] [place] [address] Hemoglobin (Bld) [Mass/Vol] 13.3 g/dL Normal 13.0-17.0 [facility] Comment on above: Order Comment: Speci men Type: BLOOD SPECIMENOrdering Facility: [facility] Address: [address] [place] [address] Performed By: #### 5 7021-8 ####[facility] LABCLIA [id number] [place] [address] Immature granulocytes (Bld) [#/Vol] 0.03 10*3/uL Normal <0.10 [facility] Comment on above: Order Comment: Speci men Type: BLOOD SPECIMENOrdering Facility: [facility] Address: [address] [place] [address] Performed By: #### 5 7021-8 ####[facility] LABCLIA [id number] [place] [address] Immature granulocytes/100 WBC (Bld) 0.4 % Normal [facility] Comment on above: Order Comment: Speci men Type: BLOOD SPECIMENOrdering Facility: [facility] Address: [address] [place] [address] Performed By: #### 5 7021-8 ####[facility] LABCLIA [id number] [place] [address] Lymphocytes (Bld) [#/Vol] 1.04 10*3/uL Normal 1.00-4.00 [facility] Comment on above: Order Comment: Speci men Type: BLOOD SPECIMENOrdering Facility: [facility] Address: [address] [place] [address] Performed By: #### 5 7021-8 ####[facility] LABCLIA [id number] [place] [address] Lymphocytes/100 WBC (Bld) 15.3 % Normal [facility] Comment on above: Order Comment: Speci men Type: BLOOD SPECIMENOrdering Facility: [facility] Address: [address] [place] [address] Performed By: #### 5 7021-8 ####[facility] LABCLIA [id number] [place] [address] MCH (RBC) [Entitic mass] 36.3 pg High 26.0-34.0 [facility] Comment on above: Order Comment: Speci men Type: BLOOD SPECIMENOrdering Facility: [facility] Address: [address] [place] [address] Performed By: #### 5 7021-8 ####[facility] LABIA [id number] [place] [address] MCHC (RBC) [Mass/Vol] 35.3 g/dL Normal 30.5-36.0 [facility] Comment on above: Order Comment: Speci men Type: BLOOD SPECIMENOrdering Facility: [facility] Address: [address] [place] [address] Performed By: #### 5 7021-8 ####[facility] LABIA [id number] [place] [address] MCV (RBC) [Entitic vol] 103.0 fL High 80.0-100.0 [facility] Comment on above: Order Comment: Speci men Type: BLOOD SPECIMENOrdering Facility: [facility] Address: [address] [place] [address] Performed By: #### 5 7021-8 ####[facility] LABIA [id number] [place] [address] Monocytes (Bld) [#/Vol] 0.72 10*3/uL Normal <0.87 [facility] Comment on above: Order Comment: Speci men Type: BLOOD SPECIMENOrdering Facility: [facility] Address: [address] [place] [address] Performed By: #### 5 7021-8 ####[facility] LABCLIA [id number] [place] [address] Monocytes/100 WBC (Bld) 10.6 % Normal [facility] Comment on above: Order Comment: Speci men Type: BLOOD SPECIMENOrdering Facility: [facility] Address: [address] [place] [address] Performed By: #### 5 7021-8 ####[facility] LABCLIA [id number] [place] [address] Neutrophils (Bld) [#/Vol] 4.60 10*3/uL Normal 1.45-7.50 [facility] Comment on above: Order Comment: Speci men Type: BLOOD SPECIMENOrdering Facility: [facility] Address: [address] [place] [address] Performed By: #### 5 7021-8 ####[facility] LABCLIA [id number] [place] [address] Neutrophils/100 WBC (Bld) 67.7 % Normal [facility] Comment on above: Order Comment: Speci men Type: BLOOD SPECIMENOrdering Facility: [facility] Address: [address] [place] [address] Performed By: #### 5 7021-8 ####[facility] LABCLIA [id number] [place] [address] Nucleated RBC (Bld) [#/Vol] 10*3/uL Normal <0.01 [facility] Comment on above: Order Comment: Speci men Type: BLOOD SPECIMENOrdering Facility: [facility] Address: [address] [place] [address] Performed By: #### 5 7021-8 ####[facility] LABCLIA [id number] [place] [address] Nucleated RBC/100 WBC (Bld) [Ratio] 0.0 /100 WBC Normal [facility] Comment on above: Order Comment: Speci men Type: BLOOD SPECIMENOrdering Facility: [facility] Address: [address] [place] [address] Performed By: #### 5 7021-8 ####[facility] LABCLIA [id number] [place] [address] Platelet mean volume (Bld) [Entitic vol] 10.6 fL Normal 9.0-12.7 [facility] Comment on above: Order Comment: Speci men Type: BLOOD SPECIMENOrdering Facility: [facility] Address: [address] [place] [address] Performed By: #### 5 7021-8 ####[facility] LABCLIA [id number] [place] [address] Platelets (Bld) [#/Vol] 172 10*3/uL Normal 150-400 [facility] Comment on above: Order Comment: Speci men Type: BLOOD SPECIMENOrdering Facility: [facility] Address: [address] [place] [address] Performed By: #### 5 7021-8 ####[facility] LABCLIA [id number] [place] [address] RBC (Bld) [#/Vol] 3.66 10*6/uL Low 4.20-6.00 [facility] Comment on above: Order Comment: Speci men Type: BLOOD SPECIMENOrdering Facility: [facility] Address: [address] [place] [address] Performed By: #### 5 7021-8 ####[facility] LABCLIA [id number] [place] [address] WBC (Bld) [#/Vol] 6.80 10*3/uL Normal 3.70-11.00 [facility] Comment on above: Order Comment: Speci men Type: BLOOD SPECIMENOrdering Facility: [facility] Address: [address] [place] [address] Performed By: #### 5 7021-8 ####[facility] [id number] [place] [address] CNOVSPon 05-27-2024 CNOVSP Visit (SP) Office (HEMASA) ZACH MANUEL ([id number]) 1945 M Date Time Provider Department 05/27/24 [...] date: Hyperlipidemia 11/2002: Monoclonal gammopathy Comment: IgG [place] 2002: Multiple myeloma (HCC) No date: Ulcerative [...] IMPRESSION: Enla (more content not included)... Normal [facility] CNPVangie 05-27-2024 CNPN Telephone (HEMASA) ZACH MANUEL ([id number]) 1945 M Date Time Provider Department 05/27/24 [...] Type 2 diabetes mellitus without complication (*10/20/2015 senior living current use of systemic steroids [Z79*10/20/2015 Left inguinal hernia [K40.90] 10/20/2015 Former smoker [Z87.891] 10/20/2015 Elevated prostate specific antigen (PSA) [R97.2*03/19/2020 Stage 3 chronic kidney disease, unspecified whe*03/06/2023 Encounter Status:Closed by JUAN FERGUSON on 05/27/24 Normal [facility] Comprehensive metabolic 2000 panelon 05-27-2024 Albumin [Mass/Vol] 3.9 g/dL Normal 3.9-4.9 [facility] Comment on above: Order Comment: Speci men Type: BLOOD SPECIMENOrdering Facility: [facility] Address: [address] [place] [address] Result Comment: Kd ected result: Previously reported as 4.1 g/dL on 05/27/2024 at 1:22 PM EDT. Performed By: #### 2 4323-8 ####[facility] LABIA [id number] [place] [address] [place] ALP [Catalytic activity/Vol] 74 U/L Normal 38-113 [facility] Comment on above: Order Comment: Speci men Type: BLOOD SPECIMENOrdering Facility: [facility] Address: [address] [place] [address] Result Comment: Kd ected result: Previously reported as 77 U/L on 05/27/2024 at 1:22 PM EDT. Performed By: #### 2 4323-8 ####[facility] LABIA [id number] [place] [address] [place] ALT [Catalytic activity/Vol] 16 U/L Normal 10-54 [facility] Comment on above: Order Comment: Speci men Type: BLOOD SPECIMENOrdering Facility: [facility] Address: [address] [place] [address] Result Comment: Kd ected result: Previously reported as 10 U/L on 05/27/2024 at 1:22 PM EDT. Performed By: #### 2 4323-8 ####[facility] LABIA [id number] [place] [address] [place] Anion gap [Moles/Vol] 12 mmol/L Normal 8-15 [facility] Comment on above: Order Comment: Speci men Type: BLOOD SPECIMENOrdering Facility: [facility] Address: [address] [place] [address] Performed By: #### 2 4323-8 ####[facility] LABCLIA [id number] [place] [address] [place] AST [Catalytic activity/Vol] 20 U/L Normal 14-40 [facility] Comment on above: Order Comment: Speci men Type: BLOOD SPECIMENOrdering Facility: [facility] Address: [address] [place] [address] Result Comment: Kd ected result: Previously reported as 13 U/L on 05/27/2024 at 1:22 PM EDT. Performed By: #### 2 4323-8 ####[facility] LABCLIA [id number] [place] [address] [place] Bilirubin [Mass/Vol] 0.9 mg/dL Normal 0.2-1.3 [facility] Comment on above: Order Comment: Speci men Type: BLOOD SPECIMENOrdering Facility: [facility] Address: [address] [place] [address] Performed By: #### 2 4323-8 ####[facility] LABCLIA [id number] [place] [address] [place] Calcium [Mass/Vol] 8.5 mg/dL Normal 8.5-10.2 [facility] Comment on above: Order Comment: Speci men Type: BLOOD SPECIMENOrdering Facility: [facility] Address: [address] [place] [address] Performed By: #### 2 4323-8 ####[facility] LABCLIA [id number] [place] [address] [place] Chloride [Moles/Vol] 106 mmol/L Normal 98-107 [facility] Comment on above: Order Comment: Speci men Type: BLOOD SPECIMENOrdering Facility: [facility] Address: [address] [place] [address] Result Comment: Resu lt rechecked. Performed By: #### 2 4323-8 ####[facility] LABCLIA [id number] [place] [address] [place] CO2 [Moles/Vol] 27 mmol/L Normal 22-30 [facility] Comment on above: Order Comment: Speci men Type: BLOOD SPECIMENOrdering Facility: [facility] Address: [address] [place] [address] Result Comment: Kd ected result: Previously reported as 29 mmol/L on 05/27/2024 at 1:22 PM EDT. Performed By: #### 2 4323-8 ####[facility] LABIA [id number] [place] [address] [place] Creatinine [Mass/Vol] 1.59 mg/dL High 0.73-1.22 [facility] Comment on above: Order Comment: Speci men Type: BLOOD SPECIMENOrdering Facility: [facility] Address: [address] [place] [address] Result Comment: Kd ected result: Previously reported as 1.61 mg/dL on 05/27/2024 at 1:22 PM EDT. Performed By: #### 2 4323-8 ####[facility] LABIA [id number] [address] [place] Creatinine and Glomerular filtration rate.predicted panel (S/P/Bld) 44 mL/min/1.73m??? Low >=60 [facility] Comment on above: Order Comment: Speci men Type: BLOOD SPECIMENOrdering Facility: [facility] Address: [address] [place] [address] Result Comment: Chanda mated Glomerular Filtration Rate [...] actual GFR. Performed By: #### 2 4323-8 ####[facility] LABCLIA [id number] [place] [address] [place] Glucose [Mass/Vol] 78 mg/dL Normal 74-99 [facility] Comment on above: Order Comment: Michelle bueno Type: BLOOD SPECIMENOrdering Facility: [facility] Address: [address] [place] [address] Result Comment: The [place] [employer] (ADA) provides guidance for cutoff [...] Standards of Medical Care in Diabetes 2016, [place] [employer]. Diabetes Care. 2016.39(Suppl 1). Corrected result: Previously reported as 85 mg/dL on 05/27/2024 at 1:22 PM EDT. Performed By: #### 2 4323-8 ####[facility] LABCLIA [id number] [place] [address] [place] Potassium [Moles/Vol] 4.5 mmol/L Normal 3.7-5.1 [facility] Comment on above: Order Comment: Michelle bueno Type: BLOOD SPECIMENOrdering Facility: [facility] Address: [address] [place] [address] Performed By: #### 2 4323-8 ####[facility] [facility] [id number] [place] [id number] [place] Protein [Mass/Vol] 6.6 g/dL Normal 6.3-8.0 [facility] Comment on above: Order Comment: Speci men Type: BLOOD SPECIMENOrdering Facility: [facility] Address: [address] [place] [address] Result Comment: Kd ected result: Previously reported as 6.3 g/dL on 05/27/2024 at 1:22 PM EDT. Performed By: #### 2 4323-8 ####[facility] LABCLIA [id number] [place] [address] [place] Sodium [Moles/Vol] 145 mmol/L High 136-144 [facility] Comment on above: Order Comment: Speci men Type: BLOOD SPECIMENOrdering Facility: [facility] Address: [address] [place] [address] Result Comment: Resu lt rechecked. Performed By: #### 2 4323-8 ####[facility] LABCLIA [id number] [place] [address] [place] Urea nitrogen [Mass/Vol] 15 mg/dL Normal 9- [facility] Comment on above: Order Comment: Speci men Type: BLOOD SPECIMENOrdering Facility: [facility] Address: [address] [place] [address] Result Comment: Kd ected result: Previously reported as 17 mg/dL on 05/27/2024 at 1:22 PM EDT. Performed By: #### 2 4323-8 ####[facility] LABCLIA [id number] [place] [address] [place] IMMUNOFIXATION SCREEN, SERUM on 05-27-2024 INTERPRETATION (MPA) Atypical restricted bands are present in the IgG and kappa regions. Consistent with IgG kappa monoclonal gammopathy. Normal [facility] Comment on above: Order Comment: Speci men Type: BLOOD SPECIMENOrdering Facility: [facility] Address: [address] [place] [address] Performed By: #### I [facility] ####[facility] LABCLIA [id number] [place] [address] [place] MPA RESULT M protein is present. Abnormal No M p rotein is identified. [facility] Comment on above: Order Comment: Speci men Type: BLOOD SPECIMENOrdering Facility: [facility] Address: [address] [place] [address] Performed By: #### I FESC ####[facility] LABCLIA [id number] [address] STAFF REVIEW (MPA) Reviewed by Alba Shelton MD [facility] Comment on above: Order Comment: Speci men Type: BLOOD SPECIMENOrdering Facility: [facility] Address: [address] [place] [address] Performed By: #### I FES ####[facility] LABIA [id number] [place] [address] [place] IMMUNOGLOBULINS,IGG,IGA,IGMo n 05-27-2024 IgA [Mass/Vol] 94 mg/dL Normal 70-400 [facility] Comment on above: Order Comment: Speci men Type: BLOOD SPECIMENOrdering Facility: [facility] Address: [address] [place] [address] Performed By: #### S ERIMM ####[facility] LABCLIA [id number] [place] [address] [place] IgG [Mass/Vol] 1157 mg/dL Normal 700-1600 [facility] Comment on above: Order Comment: Speci men Type: BLOOD SPECIMENOrdering Facility: [facility] Address: [address] [place] [address] Performed By: #### S ERIMM ####[facility] LABIA [id number] [place] [address] [place] IgM [Mass/Vol] 18 mg/dL Low 40-230 [facility] Comment on above: Order Comment: Speci men Type: BLOOD SPECIMENOrdering Facility: [facility] Address: [address] [place] [address] Performed By: #### S ERIMM ####[facility] LABCLIA [id number] [place] [address] [place] KAPPA/DANIELS,FREE,SERon 2023 Immunoglobulin light chains.kappa.free (S) [Mass/Vol] 40.4 mg/L High 3.3-19.4 [facility] Comment on above: Order Comment: Speci men Type: BLOOD SPECIMENOrdering Facility: [facility] Address: [address] [place] [address] Result Comment: Rare ly, increased serum free light chains levels may not be detected or accurately quantified due to prozone phenomenon or in high viscosity samples using this immunoturbidimetric assay. Correlation with other laboratory results and clinical findings is recommended. The [place] Free Light Chain was performed using the Binding Site Optilite immunoturbidimetric method. Result obtained with different assay methods or kits cannot be used interchangeably. Performed By: #### K LFRS ####[facility] LABCLIA [id number] [place] [address] [place] Immunoglobulin light chains.kappa/Immun oglobulin light chains.lambda (S) [Mass ratio] 1.62 Normal 0.26-1.65 [facility] Comment on above: Order Comment: Speci men Type: BLOOD SPECIMENOrdering Facility: [facility] Address: [address] [place] [address] Performed By: #### K LFRS ####[facility] LABCLIA [id number] [place] [address] [place] Immunoglobulin light chains.lambda.free [Mass/Vol] 25.0 mg/L Normal 5.7-26.3 [facility] Comment on above: Order Comment: Speci men Type: BLOOD SPECIMENOrdering Facility: [facility] Address: [address] [place] [address] Result Comment: Rare ly, increased serum free [...] used interchangeably. Performed By: #### K LFRS ####[facility] [id number] [place] [address] [place] PROTEIN ELECTROPHORESIS SERU M (P)on 05-27-2024 Albumin [Mass/Vol] 3.79 g/dL Normal 3.43-5.41 [facility] Comment on above: Order Comment: Speci men Type: BLOOD SPECIMENOrdering Facility: [facility] Address: [address] [place] [address] Performed By: #### L [id number] ####[facility] [id number] [place] [address] [place] Alpha 1 globulin Elph [Mass/Vol] 0.23 g/dL Normal 0.18-0.43 [facility] Comment on above: Order Comment: Speci men Type: BLOOD SPECIMENOrdering Facility: [facility] Address: [address] [place] [address] Performed By: #### L [id number] ####[facility] [id number] [place] [address] [place] Alpha 2 globulin Elph [Mass/Vol] 0.59 g/dL Normal 0.42-0.98 [facility] Comment on above: Order Comment: Speci men Type: BLOOD SPECIMENOrdering Facility: [facility] Address: [address] [place] [address] Performed By: #### L [id number] ####[facility] [id number] [place] [address] [place] Beta globulin Elph [Mass/Vol] 0.61 g/dL Normal 0.61-1.17 [facility] Comment on above: Order Comment: Speci men Type: BLOOD SPECIMENOrdering Facility: [facility] Address: [address] [place] [address] Performed By: #### L [id number] ####[facility] LABCLIA [id number] [place] [address] [place] Gamma globulin Elph [Mass/Vol] 0.98 g/dL Normal 0.53-1.51 [facility] Comment on above: Order Comment: Speci men Type: BLOOD SPECIMENOrdering Facility: [facility] Address: [address] [place] [address] Performed By: #### L [id number] ####[facility] LABIA [id number] [address] [place] INTERPRETATION COMMENT FOR PROTEIN ELECTROPHORESIS See separate immunofixation report for characterization of monoclonal gammopathy. Normal [facility] Comment on above: Order Comment: Speci men Type: BLOOD SPECIMENOrdering Facility: [facility] Address: [address] [place] [address] Performed By: #### L [id number] ####[facility] LABIA [id number] [place] [address] [place] M-PROTEIN LOCATION Gamma Fraction 1 Normal [facility] Comment on above: Order Comment: Speci men Type: BLOOD SPECIMENOrdering Facility: [facility] Address: [address] [place] [address] Performed By: #### L [id number] ####[facility] LABIA [id number] [place] [address] [place] Protein Fractions [Interp] An M protein is identified on protein electrophoresis. Abnormal No definitive M protein is identified on protein electrophores is. [facility] Comment on above: Order Comment: Speci men Type: BLOOD SPECIMENOrdering Facility: [facility] Address: [address] [place] [address] Performed By: #### L [id number] ####[facility] LABIA [id number] [place] [address] [place] Protein.monoclonal Elph [Mass/Vol] 0.67 g/dL High <=0.00 [facility] Comment on above: Order Comment: Speci men Type: BLOOD SPECIMENOrdering Facility: [facility] Address: [address] [place] [address] Performed By: #### L [id number] ####[facility] LABCLIA [id number] [address] OF [facility] SPE STAFF REVIEW Reviewed by Alba Shelton MD [facility] Comment on above: Order Comment: Speci men Type: BLOOD SPECIMENOrdering Facility: [facility] Address: [address] [place] [address] Performed By: #### L [id number] ####[facility] LABCLIA [id number] [address] [place] Prot SerPl-mCncon 05-27-2024 Protein [Mass/Vol] 6.2 g/dL Low 6.3-8.0 [facility] Comment on above: Order Comment: Speci men Type: BLOOD SPECIMENOrdering Facility: [facility] Address: [address] [place] [address] Performed By: #### 2 885-2 ####[facility] LABCLIA [id number] [address] [place] Bree 05-20-2024 CNPN Telephone (HEMTSA) ZACH MANUEL ([id number]) 1945 M Date Time Provider Department 05/20/24 [...] Fully Assessed Reason for Visit: Lab Orders [9558] Primary Visit Diagnosis:Multiple myeloma not having achieved remission (HCC) [C90.00] Order(s):COMPREHENSIVE METABOLIC PANEL [SQCMP] Order #: [id number] FUTURE COMPLETE BLOOD COUNT AND DIFFERENTIAL [SQCBCDIF] Order #: [id number] FUTURE MONOCLONAL PROTEIN, SERUM (BLOOD) [SQSERMPA] Order #: [id number] FUTURE PROTEIN ELECTROPHORESIS SERUM W/INTERP [SQSEPG] Order #: [id number] FUTURE Prescriptions as of 05/20/2024 - lenalidomide [...] Type 2 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*10/20/2015 Left inguinal hernia [K40.90] 10/20/2015 Former smoker [Z87.891] 10/20/2015 Elevated prostate specific antigen (PSA) [R97.2*03/19/2020 Stage 3 chronic kidney disease, unspecified whe*03/06/2023 Encounter Status:Closed by IRMA TALAVERA on 05/20/24 [facility] 02-29-2024 CNPN Telephone (HEMASA) ZACH MANUEL ([id number]) 1945 M Date Time Provider Department 02/29/24 [...] Fully Assessed Reason for Visit: Care Coordination [3490] Cmt: Labs Prescriptions as of 02/29/2024 - [...] Type 2 diabetes mellitus without complication (*10/20/2015 senior living current use of systemic steroids [Z79*10/20/2015 Left inguinal hernia [K40.90] 10/20/2015 Former smoker [Z87.891] 10/20/2015 Elevated prostate specific antigen (PSA) [R97.2*03/19/2020 Stage 3 chronic kidney disease, unspecified whe*03/06/2023 Encounter Status:Closed by JUAN FERGUSON on 02/29/24 Normal [facility] CBC W Auto Differential pane l (Bld)on 02-26-2024 Basophils (Bld) [#/Vol] 0.09 10*3/uL Normal <0.11 [facility] Comment on above: Order Comment: Speci men Type: BLOOD SPECIMENOrdering Facility: [facility] Address: [address] [place] [address] Performed By: #### 5 7021-8 ####[facility] LABCLIA [id number] [place] [address] Basophils/100 WBC (Bld) 1.4 % Normal [facility] Comment on above: Order Comment: Speci men Type: BLOOD SPECIMENOrdering Facility: [facility] Address: [address] [place] [address] Performed By: #### 5 7021-8 ####[facility] LABCLIA [id number] [place] [address] Differential cell count method Nom (Bld) Auto Normal [facility] Comment on above: Order Comment: Speci men Type: BLOOD SPECIMENOrdering Facility: [facility] Address: [address] [place] [address] Performed By: #### 5 7021-8 ####[facility] LABCLIA [id number] [place] [address] Eosinophils (Bld) [#/Vol] 0.44 10*3/uL Normal <0.46 [facility] Comment on above: Order Comment: Speci men Type: BLOOD SPECIMENOrdering Facility: [facility] Address: [address] [place] [address] Performed By: #### 5 7021-8 ####[facility] LABCLIA [id number] [place] [address] Eosinophils/100 WBC (Bld) 6.6 % Normal [facility] Comment on above: Order Comment: Speci men Type: BLOOD SPECIMENOrdering Facility: [facility] Address: [address] [place] [address] Performed By: #### 5 7021-8 ####[facility] LABCLIA [id number] [place] [address] Erythrocyte distribution width (RBC) [Ratio] 15.4 % High 11.5-15.0 [facility] Comment on above: Order Comment: Speci men Type: BLOOD SPECIMENOrdering Facility: [facility] Address: [address] [place] [address] Performed By: #### 5 7021-8 ####[facility] LABCLIA [id number] [place] [address] Hematocrit (Bld) [Volume fraction] 38.0 % Low 39.0-51.0 [facility] Comment on above: Order Comment: Speci men Type: BLOOD SPECIMENOrdering Facility: [facility] Address: [address] [place] [address] Performed By: #### 5 7021-8 ####[facility] LABCLIA [id number] [place] [address] Hemoglobin (Bld) [Mass/Vol] 12.9 g/dL Low 13.0-17.0 [facility] Comment on above: Order Comment: Speci men Type: BLOOD SPECIMENOrdering Facility: [facility] Address: [address] [place] [address] Performed By: #### 5 7021-8 ####[facility] LABCLIA [id number] [place] [address] Immature granulocytes (Bld) [#/Vol] 0.04 10*3/uL Normal <0.10 [facility] Comment on above: Order Comment: Speci men Type: BLOOD SPECIMENOrdering Facility: [facility] Address: [address] [place] [address] Performed By: #### 5 7021-8 ####[facility] LABCLIA [id number] [place] [address] Immature granulocytes/100 WBC (Bld) 0.6 % Normal [facility] Comment on above: Order Comment: Speci men Type: BLOOD SPECIMENOrdering Facility: [facility] Address: [address] [place] [address] Performed By: #### 5 7021-8 ####[facility] LABCLIA [id number] [place] [address] Lymphocytes (Bld) [#/Vol] 1.24 10*3/uL Normal 1.00-4.00 [facility] Comment on above: Order Comment: Speci men Type: BLOOD SPECIMENOrdering Facility: [facility] Address: [address] [place] [address] Performed By: #### 5 7021-8 ####[facility] LABIA [id number] [place] [address] Lymphocytes/100 WBC (Bld) 18.6 % Normal [facility] Comment on above: Order Comment: Speci men Type: BLOOD SPECIMENOrdering Facility: [facility] Address: [address] [place] [address] Performed By: #### 5 7021-8 ####[facility] LABCLIA [id number] [place] [address] MCH (RBC) [Entitic mass] 35.5 pg High 26.0-34.0 [facility] Comment on above: Order Comment: Speci men Type: BLOOD SPECIMENOrdering Facility: [facility] Address: [address] [place] [address] Performed By: #### 5 7021-8 ####[facility] LABIA [id number] [place] [address] MCHC (RBC) [Mass/Vol] 33.9 g/dL Normal 30.5-36.0 [facility] Comment on above: Order Comment: Speci men Type: BLOOD SPECIMENOrdering Facility: [facility] Address: [address] [place] [address] Performed By: #### 5 7021-8 ####[facility] LABCLIA [id number] [place] [address] MCV (RBC) [Entitic vol] 104.7 fL High 80.0-100.0 [facility] Comment on above: Order Comment: Speci men Type: BLOOD SPECIMENOrdering Facility: [facility] Address: [address] [place] [address] Performed By: #### 5 7021-8 ####[facility] LABCLIA [id number] [place] [address] Monocytes (Bld) [#/Vol] 0.88 10*3/uL High <0.87 [facility] Comment on above: Order Comment: Speci men Type: BLOOD SPECIMENOrdering Facility: [facility] Address: [address] [place] [address] Performed By: #### 5 7021-8 ####[facility] LABCLIA [id number] [place] [address] Monocytes/100 WBC (Bld) 13.2 % Normal [facility] Comment on above: Order Comment: Speci men Type: BLOOD SPECIMENOrdering Facility: [facility] Address: [address] [place] [address] Performed By: #### 5 7021-8 ####[facility] LABCLIA [id number] [place] [address] Neutrophils (Bld) [#/Vol] 3.96 10*3/uL Normal 1.45-7.50 [facility] Comment on above: Order Comment: Speci men Type: BLOOD SPECIMENOrdering Facility: [facility] Address: [address] [place] [address] Performed By: #### 5 7021-8 ####[facility] LABCLIA [id number] [place] [address] Neutrophils/100 WBC (Bld) 59.6 % Normal [facility] Comment on above: Order Comment: Speci men Type: BLOOD SPECIMENOrdering Facility: [facility] Address: [address] [place] [address] Performed By: #### 5 7021-8 ####[facility] LABCLIA [id number] [place] [address] Nucleated RBC (Bld) [#/Vol] 10*3/uL Normal <0.01 [facility] Comment on above: Order Comment: Speci men Type: BLOOD SPECIMENOrdering Facility: [facility] Address: [address] [place] [address] Performed By: #### 5 7021-8 ####[facility] LABCLIA [id number] [place] [address] Nucleated RBC/100 WBC (Bld) [Ratio] 0.0 /100 WBC Normal [facility] Comment on above: Order Comment: Speci men Type: BLOOD SPECIMENOrdering Facility: [facility] Address: [address] [place] [address] Performed By: #### 5 7021-8 ####[facility] LABIA [id number] [place] [address] Platelet mean volume (Bld) [Entitic vol] 10.6 fL Normal 9.0-12.7 [facility] Comment on above: Order Comment: Speci men Type: BLOOD SPECIMENOrdering Facility: [facility] Address: [address] [place] [address] Performed By: #### 5 7021-8 ####[facility] LABCLIA [id number] [place] [address] Platelets (Bld) [#/Vol] 203 10*3/uL Normal 150-400 [facility] Comment on above: Order Comment: Speci men Type: BLOOD SPECIMENOrdering Facility: [facility] Address: [address] [place] [address] Performed By: #### 5 7021-8 ####[facility] LABCLIA [id number] [place] [address] RBC (Bld) [#/Vol] 3.63 10*6/uL Low 4.20-6.00 [facility] Comment on above: Order Comment: Speci men Type: BLOOD SPECIMENOrdering Facility: [facility] Address: [address] [place] [address] Performed By: #### 5 7021-8 ####[facility] LABIA [id number] [place] [address] WBC (Bld) [#/Vol] 6.65 10*3/uL Normal 3.70-11.00 [facility] Comment on above: Order Comment: Speci men Type: BLOOD SPECIMENOrdering Facility: [facility] Address: [address] [place] [address] Performed By: #### 5 7021-8 ####[facility] LABIA [id number] [place] [address] CNOVSPon 02-26-2024 CNOVSP Visit (SP) Office (HEMASA) YULIYAMarianaZACH ([id number]) 1945 M Date Time Provider Department 02/26/24 1:15 PM URIEL GUNTER HEMCHRISTINA During your visit today, we [...] mellitus (HCC) Hyperlipidemia 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 Normal [facility] metabolic 2000 panelon 02-26-2024 Albumin [Mass/Vol] 3.9 g/dL Normal 3.9-4.9 [facility] Comment on above: Order Comment: Speci men Type: BLOOD SPECIMENOrdering Facility: [facility] Address: [address] [place] [address] Performed By: #### 2 4323-8 ####[facility] LABCLIA [id number] [place] [address] ALP [Catalytic activity/Vol] 78 U/L Normal 38-113 [facility] Comment on above: Order Comment: Speci men Type: BLOOD SPECIMENOrdering Facility: [facility] Address: [address] [place] [address] Performed By: #### 2 4323-8 ####[facility] LABCLIA [id number] [place] [address] ALT [Catalytic activity/Vol] 8 U/L Low 10-54 [facility] Comment on above: Order Comment: Speci men Type: BLOOD SPECIMENOrdering Facility: [facility] Address: [address] [place] [address] Performed By: #### 2 4323-8 ####[facility] LABCLIA [id number] [place] [address] Anion gap [Moles/Vol] 6 mmol/L Low 8-15 [facility] Comment on above: Order Comment: Speci men Type: BLOOD SPECIMENOrdering Facility: [facility] Address: [address] [place] [address] Performed By: #### 2 4323-8 ####[facility] LABCLIA [id number] [place] [address] AST [Catalytic activity/Vol] 13 U/L Low 14-40 [facility] Comment on above: Order Comment: Speci men Type: BLOOD SPECIMENOrdering Facility: [facility] Address: [address] [place] [address] Performed By: #### 2 4323-8 ####[facility] LABCLIA [id number] [place] [address] Bilirubin [Mass/Vol] 0.8 mg/dL Normal 0.2-1.3 [facility] Comment on above: Order Comment: Speci men Type: BLOOD SPECIMENOrdering Facility: [facility] Address: [address] [place] [address] Performed By: #### 2 4323-8 ####[facility] LABCLIA [id number] [place] [address] Calcium [Mass/Vol] 8.9 mg/dL Normal 8.5-10.2 [facility] Comment on above: Order Comment: Speci men Type: BLOOD SPECIMENOrdering Facility: [facility] Address: [address] [place] [address] Performed By: #### 2 4323-8 ####[facility] LABCLIA [id number] [place] [address] Chloride [Moles/Vol] 103 mmol/L Normal 98-107 [facility] Comment on above: Order Comment: Speci men Type: BLOOD SPECIMENOrdering Facility: [facility] Address: [address] [place] [address] Performed By: #### 2 4323-8 ####[facility] LABCLIA [id number] [place] [address] CO2 [Moles/Vol] 30 mmol/L Normal 22-30 [facility] Comment on above: Order Comment: Speci men Type: BLOOD SPECIMENOrdering Facility: [facility] Address: [address] [place] [address] Performed By: #### 2 4323-8 ####[facility] LABCLIA [id number] [place] [address] Creatinine [Mass/Vol] 1.70 mg/dL High 0.73-1.22 [facility] Comment on above: Order Comment: Speci men Type: BLOOD SPECIMENOrdering Facility: [facility] Address: [address] [place] [address] Performed By: #### 2 4323-8 ####[facility] LABCLIA [id number] [place] [address] Creatinine and Glomerular filtration rate.predicted panel (S/P/Bld) 41 mL/min/1.73m??? Low >=60 [facility] Comment on above: Order Comment: Michelle bueno Type: BLOOD SPECIMENOrdering Facility: [facility] Address: [address] [place] [address] Result Comment: Chanda mated Glomerular Filtration Rate [...] actual GFR. Performed By: #### 2 4323-8 ####[facility] LABCLIA [id number] [place] [address] Glucose [Mass/Vol] 175 mg/dL High 74-99 [facility] Health Comment on above: Order Comment: Michelle bueno Type: BLOOD SPECIMENOrdering Facility: [facility] Address: [address] [place] [address] Result Comment: The [employer] (ADA) provides guidance for cutoff [...] Standards of Medical Care in Diabetes 2016, [employer]. Diabetes Care. 2016.39(Suppl 1). Performed By: #### 2 4323-8 ####[facility] LABCLIA [id number] [place] [address] Potassium [Moles/Vol] 4.8 mmol/L Normal 3.7-5.1 [facility] Comment on above: Order Comment: Speci men Type: BLOOD SPECIMENOrdering Facility: [facility] Address: [address] [place] [address] Performed By: #### 2 4323-8 ####[facility] LABCLIA [id number] [place] [address] Protein [Mass/Vol] 6.7 g/dL Normal 6.3-8.0 [facility] Comment on above: Order Comment: Speci men Type: BLOOD SPECIMENOrdering Facility: [facility] Address: [address] [place] [address] Performed By: #### 2 4323-8 ####[facility] LABIA [id number] [place] [address] Sodium [Moles/Vol] 139 mmol/L Normal 136-144 [facility] Comment on above: Order Comment: Speci men Type: BLOOD SPECIMENOrdering Facility: [facility] Address: [address] [place] [address] Performed By: #### 2 4323-8 ####[facility] LABCLIA [id number] [place] [address] Urea nitrogen [Mass/Vol] 23 mg/dL Normal 9-24 [facility] Comment on above: Order Comment: Speci men Type: BLOOD SPECIMENOrdering Facility: [facility] Address: [address] [place] [address] Performed By: #### 2 4323-8 ####[facility] LABIA [id number] [place] [address] IMMUNOFIXATION SCREEN, SERUM on 02-26-2024 INTERPRETATION (MPA) Atypical restricted bands are present in the IgG and kappa regions. Consistent with IgG kappa monoclonal gammopathy. Normal [facility] Comment on above: Order Comment: Speci men Type: BLOOD SPECIMENOrdering Facility: [facility] Address: [address] [place] [address] Performed By: #### I FESC ####[facility] LABCLIA [id number] [address] MPA RESULT M protein is present. Abnormal No M p rotein is identified. [facility] Comment on above: Order Comment: Speci men Type: BLOOD SPECIMENOrdering Facility: [facility] Address: [address] [place] [address] Performed By: #### I FESC ####[facility] LABIA [id number] [address] OF [place] STAFF REVIEW (MPA) Reviewed by Dr. Marcel White MD [facility] Comment on above: Order Comment: Speci men Type: BLOOD SPECIMENOrdering Facility: [facility] Address: [address] [place] [address] Performed By: #### I FESC ####[facility] LABIA [id number] [place] [address] [place] IMMUNOGLOBULINS,IGG,IGA,IGMo n 02-26-2024 IgA [Mass/Vol] 96 mg/dL Normal 70-400 [facility] Comment on above: Order Comment: Speci men Type: BLOOD SPECIMENOrdering Facility: [facility] Address: [address] [place] [address] Performed By: #### S ERIMM ####[facility] LABCLIA [id number] [place] [address] [place] IgG [Mass/Vol] 1109 mg/dL Normal 700-1600 [facility] Comment on above: Order Comment: Speci men Type: BLOOD SPECIMENOrdering Facility: [facility] Address: [address] [place] [address] Performed By: #### S ERIMM ####[facility] LABIA [id number] [place] [address] [place] IgM [Mass/Vol] 17 mg/dL Low 40-230 [facility] Comment on above: Order Comment: Speci men Type: BLOOD SPECIMENOrdering Facility: [facility] Address: [address] [place] [address] Performed By: #### S FRED ####[facility] LABCLIA [id number] [place] [address] [place] KAPPA/DANIELS,FREE,SERon 2023 Immunoglobulin light chains.kappa.free (S) [Mass/Vol] 40.3 mg/L High 3.3-19.4 [facility] Comment on above: Order Comment: Speci men Type: BLOOD SPECIMEN [facility] Address: [address] [place] [address] Result Comment: Rare ly, increased serum free light chains levels may not be detected or accurately quantified due to prozone phenomenon or in high viscosity samples using this immunoturbidimetric assay. Correlation with other laboratory results and clinical findings is recommended. The [place] Free Light Chain was performed using the Binding Site Optilite immunoturbidimetric method. Result obtained with different assay methods or kits cannot be used interchangeably. Performed By: #### K LFRS #### [facility] LAB CLIA [id number] [address] [place] [address] [place] Immunoglobulin light chains.kappa/Immun oglobulin light chains.lambda (S) [Mass ratio] 1.57 Normal 0.26-1.65 [facility] Comment on above: Order Comment: Speci men Type: BLOOD SPECIMEN [facility] Address: [address] [place] [address] Performed By: #### K LFRS #### [facility] CLIA [id number] [address] [place] [address] [place] Immunoglobulin light chains.lambda.free [Mass/Vol] 25.6 mg/L Normal 5.7-26.3 [facility] Comment on above: Order Comment: Speci men Type: BLOOD SPECIMEN [facility] Address: [address] [place] [address] Result Comment: Rare ly, increased serum free [...] interchangeably. Performed By: #### K LFRS #### [facility] CLIA [id number] [address] [place] [address] [place] PROTEIN ELECTROPHORESIS SERU M WITH TOÑITO (P)on 02-26-2024 Albumin [Mass/Vol] 4.08 g/dL Normal 3.43-5.41 [facility] Comment on above: Order Comment: Speci men Type: BLOOD SPECIMENOrdering Facility: [facility] Address: [address] [place] [address] Performed By: #### L [id number] ####[facility] LABCLIA [id number] [place] [address] [place] Alpha 1 globulin Elph [Mass/Vol] 0.25 g/dL Normal 0.18-0.43 [facility] Comment on above: Order Comment: Speci men Type: BLOOD SPECIMENOrdering Facility: [facility] Address: [address] [place] [address] Performed By: #### L [id number] ####[facility] LABCLIA [id number] [place] [address] [place] Alpha 2 globulin Elph [Mass/Vol] 0.67 g/dL Normal 0.42-0.98 [facility] Comment on above: Order Comment: Speci men Type: BLOOD SPECIMENOrdering Facility: [facility] Address: [address] [place] [address] Performed By: #### L [id number] ####[facility] LABCLIA [id number] [place] [address] [place] Beta globulin Elph [Mass/Vol] 0.65 g/dL Normal 0.61-1.17 [facility] Comment on above: Order Comment: Speci men Type: BLOOD SPECIMENOrdering Facility: [facility] Address: [address] [place] [address] Performed By: #### L [id number] ####[facility] LABCLIA [id number] [place] [address] [place] COMMENT (SERUM PROT ELECTRO) Monoclonal Protein analysis (immunofixation) is not indicated. Normal [facility] Comment on above: Order Comment: Speci men Type: BLOOD SPECIMENOrdering Facility: [facility] Address: [address] [place] [address] Performed By: #### L [id number] ####[facility] LABCLIA [id number] [place] [address] [place] Gamma globulin Elph [Mass/Vol] 1.05 g/dL Normal 0.53-1.51 [facility] Comment on above: Order Comment: Speci men Type: BLOOD SPECIMENOrdering Facility: [facility] Address: [address] [place] [address] Performed By: #### L [id number] ####[facility] LABCLIA [id number] [place] [address] [place] INTERPRETATION COMMENT FOR PROTEIN ELECTROPHORESIS See separate immunofixation report for characterization of monoclonal gammopathy. Normal [facility] Comment on above: Order Comment: Speci men Type: BLOOD SPECIMENOrdering Facility: [facility] Address: [address] [place] [address] Performed By: #### L [id number] ####[facility] LABCLIA [id number] [place] [address] [place] M-PROTEIN LOCATION Gamma Fraction 1 Normal [facility] Comment on above: Order Comment: Speci men Type: BLOOD SPECIMENOrdering Facility: [facility] Address: [address] [place] [address] Performed By: #### L [id number] ####[facility] LABIA [id number] [place] [address] [place] Protein Fractions [Interp] An M protein is identified on protein electrophoresis. Abnormal No definitive M protein is identified on protein electrophores is. [facility] Comment on above: Order Comment: Speci men Type: BLOOD SPECIMENOrdering Facility: [facility] Address: [address] [place] [address] Performed By: #### L [id number] ####[facility] LABIA [id number] [place] [address] [place] Protein.monoclonal Elph [Mass/Vol] 0.67 g/dL High <=0.00 [facility] Comment on above: Order Comment: Speci men Type: BLOOD SPECIMENOrdering Facility: [facility] Address: [address] [place] [address] Performed By: #### L [id number] ####[facility] LABIA [id number] [place] [address] [place] SPE STAFF REVIEW Reviewed by Dr. Marcel White MD [facility] Comment on above: Order Comment: Speci men Type: BLOOD SPECIMENOrdering Facility: [facility] Address: [address] [place] [address] Performed By: #### L [id number] ####[facility] LABIA [id number] [place] [address] [place] Prot SerPl-mCncon 02-26-2024 Protein [Mass/Vol] 6.3 g/dL Normal 6.3-8.0 [facility] Comment on above: Order Comment: Speci men Type: BLOOD SPECIMENOrdering Facility: [facility] Address: [address] [place] [address] Performed By: #### 2 885-2 ####[facility] LABCLIA [id number] [place] [address] [place] Basic metabolic 2000 panelon 08-28-2023 Anion gap [Moles/Vol] 9 mmol/L 9 - 18 mmol/L [facility] Calcium [Mass/Vol] 9.0 mg/dL 8.5 - 10. 2 mg/dL [facility] Chloride [Moles/Vol] 102 mmol/L 97 - 105 mmol/L [facility] CO2 [Moles/Vol] 27 mmol/L 22 - 30 mmol/L [facility] Creatinine [Mass/Vol] 1.52 mg/dL High 0.73 - 1.22 mg/dL [facility] Estimated Glomerular Filtration Rate 47 mL/min/1.73m Low >=60 mL/min/1.73m [facility] Glucose [Mass/Vol] 253 mg/dL High 74 - 99 mg/dL [facility] Potassium [Moles/Vol] 4.5 mmol/L 3.7 - 5.1 mmol/L [facility] Sodium [Moles/Vol] 138 mmol/L 136 - 144 mmol/L [facility] Urea nitrogen [Mass/Vol] 29 mg/dL High 9 - 24 mg/dL [facility] CBC W Auto Differential pane l (Bld)on 08-28-2023 Basophils (Bld) [#/Vol] 0.05 10*3/uL <0.11 k/uL [facility] Basophils/100 WBC (Bld) 0.7 % [facility] Differential cell count method Nom (Bld) Auto [facility] Eosinophils (Bld) [#/Vol] 0.07 10*3/uL <0.46 k/uL [facility] Eosinophils/100 WBC (Bld) 1.0 % [facility] Erythrocyte distribution width (RBC) [Ratio] 14.0 % 11.5 - 15.0 % [facility] Hematocrit (Bld) [Volume fraction] 39.5 % 39.0 - 51.0 % [place] ic Hemoglobin (Bld) [Mass/Vol] 13.7 g/dL 13.0 - 17.0 g/dL [facility] Immature granulocytes (Bld) [#/Vol] 0.03 10*3/uL <0.10 k/uL [facility] Immature granulocytes/100 WBC (Bld) 0.4 % [facility] Lymphocytes (Bld) [#/Vol] 0.82 10*3/uL Low 1.00 - 4.00 k/uL [facility] Lymphocytes/100 WBC (Bld) 11.7 % [facility] MCH (RBC) [Entitic mass] 34.7 pg High 26.0 - 34.0 pg [facility] MCHC (RBC) [Mass/Vol] 34.7 g/dL 30.5 - 36.0 g/dL [facility] MCV (RBC) [Entitic vol] 100.0 fL 80.0 - 100.0 fL [facility] Monocytes (Bld) [#/Vol] 1.05 10*3/uL High <0.87 k/uL [facility] Monocytes/100 WBC (Bld) 15.0 % [facility] Neutrophils (Bld) [#/Vol] 4.96 10*3/uL 1.45 - 7.50 k/uL [facility] Neutrophils/100 WBC (Bld) 71.2 % [facility] Nucleated RBC (Bld) [#/Vol] <0.01 k/uL [facility] Nucleated RBC/100 WBC (Bld) [Ratio] 0.0 /100 WBC [place] ic Platelet mean volume (Bld) [Entitic vol] 9.8 fL 9.0 - 12.7 fL [facility] Platelets (Bld) [#/Vol] 207 10*3/uL 150 - 400 k/uL [facility] RBC (Bld) [#/Vol] 3.95 10*6/uL Low 4.20 - 6.0 0 m/uL [facility] WBC (Bld) [#/Vol] 6.98 10*3/uL 3.70 - 11. 00 k/uL [facility] PSA, FREE AND TOTAL RATIOon 08-29-2022 % Free PSA 25.9 % Normal [facility] Comment on above: Result Comment: The [...] men. Performed By: #### P SAFREE #### [facility] [address] [place] [address] Dr. Tigre Gant Prostate specific Ag [Mass/Vol] 4.4 ng/mL Critically high 0.0-4.0 [facility] Comment on above: Result Comment: Renee SIGALAIA methodology. . According to the [employer] [employer], Serum PSA should decrease and [...] disease. Performed By: #### P SAFREE #### [facility] [address] [address] [address] Tigre Gant PSA, Free 1.14 ng/mL Normal N/A [facility] Comment on above: Result Comment: Renee melton ECLSHERRIE methodology. Performed By: #### P SAFREE #### [facility] [address] [place] [address] Dr. Tigre Gant PSA, FREE AND TOTAL RATIOon 03-16-2022 % Free PSA 19.1 % Normal [facility] Comment on above: Result Comment: The [...] men. Performed By: #### A 1C #### [facility] [address] [place] [address] Dr. Tigre Gant PSA, Free 1.03 ng/mL Normal N/A [facility] Comment on above: Result Comment: Renee melton ECLIA methodology. Performed By: #### A 1C #### [facility] [address] [place] [address] Dr. Tigre Gant Prostate specific Ag [Mass/Vol] 5.4 ng/mL Critically high 0.0-4.0 [facility] Comment on above: Result Comment: Roch rachel ECLIA methodology. . According to the [place] [employer], Serum PSA should decrease and [...] disease. Performed By: #### A 1C #### [facility] [address] [place] [address] Dr. Tigre Gant CBC AUTO DIFFon 03-14-2022 BASO # 0.1 103/ul Normal 0.0-0.1 [facility] Comment on above: Performed By: #### C BC #### [facility] [address] [place] [address] Dr. Tigre Gant Basophils/100 WBC (Bld) 2.6 % Critically high 0.2-2.0 [facility] Comment on above: Performed By: #### C BC #### [facility] [address] [place] [address] Dr. Tigre Gant EO # 0.4 103/ul Normal 0.0-0.7 [facility] Comment on above: Performed By: #### C BC #### [facility] [address] [place] [address] Dr. Tigre Gant Eosinophils/100 WBC (Bld) 7.7 % Critically high 0.9-7.0 [facility] Comment on above: Performed By: #### C BC #### [facility] [address] [place] [address] Dr. Tigre Gant Erythrocyte distribution width (RBC) [Ratio] 14.6 % Normal 11.0-15.0 [facility] Comment on above: Performed By: #### C BC #### [facility] [address] [place] [address] Dr. Tigre Gant Hematocrit (Bld) [Volume fraction] 39.0 % Critically low 42.0-54.0 [facility] Comment on above: Performed By: #### C BC #### [facility] [address] [place] [address] Dr. Tigre Gant Hemoglobin (Bld) [Mass/Vol] 12.9 g/dL Critically low 14.0-18.0 [facility] Comment on above: Performed By: #### C BC #### [facility] [address] [place] [address] Dr. Tigre Gant IG # 0.03 10e3/ul Normal 0.00-0.03 [facility] Comment on above: Performed By: #### C BC #### [facility] [address] [place] [address] Dr. Tigre Gant IG % 0.6 % Critically high 0.0-0.5 [facility] Comment on above: Performed By: #### C BC #### [facility] [address] [place] [address] Dr. Tigre Gant LYMPH # 1.0 103/ul Critically low 1.2-3.8 [facility] Comment on above: Performed By: #### C BC #### [facility] [address] [place] [address] Dr. Tigre Gant Lymphocytes/100 WBC (Bld) 19.9 % Critically low 20.5-60.0 [facility] Comment on above: Performed By: #### C BC #### [facility] [address] [place] [address] Dr. Tigre Gant MANUAL DIFF REQ NO Normal [facility] Comment on above: Performed By: #### C BC #### [facility] [address] [place] [address] Dr. Tigre Gant MCH (RBC) [Entitic mass] 33.7 pg Normal 25.9-34.0 [facility] Comment on above: Performed By: #### C BC #### [facility] [address] [place] [address] Dr. Tigre Gant MCHC (RBC) [Mass/Vol] 33.1 g/dL Normal 29.9-35.2 [facility] Comment on above: Performed By: #### C BC #### [facility] [address] [place] [address] Dr. Tigre Gant MCV (RBC) [Entitic vol] 101.8 fL Critically high 80.0-94.0 [facility] Comment on above: Performed By: #### C BC #### [facility] [address] [place] [address] Dr. Tigre Gant MONO # 0.7 103/ul Normal 0.3-0.8 [facility] Comment on above: Performed By: #### C BC #### [facility] [address] [place] [address] Dr. Tigre Gant Monocytes/100 WBC (Bld) 13.6 % Critically high 1.7-12.0 [facility] Comment on above: Performed By: #### C BC #### [facility] [address] [place] [address] Dr. Tigre Gant NEUT # 2.7 103/ul Normal 1.4-6.5 [facility] Comment on above: Performed By: #### C BC #### [facility] [address] [place] [address] Dr. Tigre Gant Neutrophils/100 WBC (Bld) 55.6 % Normal 43.0-75.0 [facility] Comment on above: Performed By: #### C BC #### [facility] [address] [place] [address] Dr. Tigre Gant Platelet mean volume (Bld) [Entitic vol] 10.7 fL Normal 9.5-13.5 [facility] Comment on above: Performed By: #### C BC #### [facility] [address] [place] [address] Dr. Tigre Gant PLT 209 103/ul Normal 150-450 [facility] Comment on above: Performed By: #### C BC #### [facility] [address] [place] [address] Dr. Tigre Gant RBC 3.83 106/ul Critically low 4.70-6.10 [facility] Comment on above: Performed By: #### C BC #### [facility] [address] [place] [address] Dr. Tigre Gant WBC 4.9 103/ul Normal 4.0-11.0 [facility] Comment on above: Performed By: #### C BC #### [facility] [address] [place] [address] Dr. Tigre Gant FREE T3on 03-14-2022 FREE T3 2.60 pg/mlL Normal 2.18-3.98 [facility] Comment on above: Performed By: #### A 1C #### [facility] [address] [place] [address] Dr. Tigre Gant GLYCOHEMOGLOBIN A1Con 2021 ADA RECOMMENDATION SEE BELOW Normal [facility] Comment on above: Result Comment: ADA RECOMMENDED LIMIT 4.0 - 6.0 ADA THERAPEUTIC TARGET < 7.0 ACTION SUGGESTED > 7.0 Performed By: #### A 1C #### [facility] [address] [place] [address] Dr. Tigre Gant Glucose [Mass/Vol] 189 mg/dL Normal [facility] Comment on above: Performed By: #### A 1C #### [facility] [address] [place] [address] Dr. Tigre Gant HbA1c (Bld) [Mass fraction] 8.2 % Critically high 4.5-6.2 [facility] Comment on above: Performed By: #### A 1C #### [facility] [address] [place] [address] Dr. Tigre Gant LIPID PROFILEon 03-14-2022 CHOL-HDL RATIO NORM SEE BELOW Normal [facility] Comment on above: Result Comment: 3.3 - 4.4 LOW RISK 4.4 - 7.1 AVERAGE RISK 7.1 - 11.0 MODERATE RISK >11.0 HIGH RISK Performed By: #### C MP, TSH, LIPID, FT3, T4 #### [facility] [address] [place] [address] Dr. Tigre Gant Cholesterol [Mass/Vol] 157 mg/dL Normal <=200 [facility] Comment on above: Performed By: #### C MP, TSH, LIPID, FT3, T4 #### [facility] [address] [place] [address] Dr. Tigre Gant Cholesterol in HDL [Mass/Vol] 62 mg/dL Critically high 40-60 [facility] Comment on above: Performed By: #### C MP, TSH, LIPID, FT3, T4 #### [facility] [address] [place] [address] Dr. Tigre Gant Cholesterol in LDL [Mass/Vol] 62.8 mg/dL Normal [facility] Comment on above: Performed By: #### C MP, TSH, LIPID, FT3, T4 #### [facility] [address] [place] [address] Dr. Tigre Gant Cholesterol.total/ Cholesterol in HDL [Mass ratio] 2.5 {ratio} Normal [facility] Comment on above: Performed By: #### C MP, TSH, LIPID, FT3, T4 #### [facility] [address] [place] [address] Dr. Tigre Gant HDL NORMAL > or = 60 mg/dl - LO W CARDIOVASCULAR RISK <40 mg/dl - HIGH CARDIOVASCULAR RISK Normal [facility] Comment on above: Performed By: #### C MP, TSH, LIPID, FT3, T4 #### [facility] [address] [place] [address] Dr. Tigre Gant LDL CALC NORMAL SEE BELOW Normal [facility] Comment on above: Result Comment: <100 mg/dl OPTIMAL 100 - 129 mg/dl NEAR OR ABOVE OPTIMAL 130 - 159 mg/dl BORDERLINE HIGH 160 - 189 mg/dl HIGH >190 mg/dl VERY HIGH Performed By: #### C MP, TSH, LIPID, FT3, T4 #### [facility] [address] [place] [address] Dr. Tigre Gant Triglyceride [Mass/Vol] 161 mg/dL Critically high <=150 [facility] Comment on above: Performed By: #### C MP, TSH, LIPID, FT3, T4 #### [facility] [address] [address] [address] Tigre Gant VLDL CALC 32.2 mg/dL Normal [facility] Comment on above: Performed By: #### C MP, TSH, LIPID, FT3, T4 #### [facility] [address] [address] [address] Tigre Gant PROF 14(COMP METB)on 022 Albumin [Mass/Vol] 3.5 g/dL Normal 3.4-5.0 [facility] Comment on above: Performed By: #### C MP, TSH, LIPID, FT3, T4 #### [facility] [address] [place] [address] Dr. Tigre Gant Albumin/Globulin [Mass ratio] 1.1 {ratio} Normal [facility] Comment on above: Performed By: #### C MP, TSH, LIPID, FT3, T4 #### [facility] [address] [address] [address] Tigre Gant ALP [Catalytic activity/Vol] 67 U/L Normal 46-116 [facility] Comment on above: Performed By: #### C MP, TSH, LIPID, FT3, T4 #### [facility] [address] [address] [address] Tigre Gant ALT [Catalytic activity/Vol] 17 U/L Normal 16-63 [facility] Comment on above: Performed By: #### C MP, TSH, LIPID, FT3, T4 #### [facility] [address] [address] [address] Tigre Gant Anion gap [Moles/Vol] 14.6 mmol/L Normal [facility] Comment on above: Performed By: #### C MP, TSH, LIPID, FT3, T4 #### [facility] [address] [address] [address] Tigre Gant AST [Catalytic activity/Vol] 16 U/L Normal 15-37 [facility] Comment on above: Performed By: #### C MP, TSH, LIPID, FT3, T4 #### [facility] [address] [place] [address] Dr. Tigre Gant Bilirubin [Mass/Vol] 1.2 mg/dL Critically high 0.2-1.0 [facility] Comment on above: Performed By: #### C MP, TSH, LIPID, FT3, T4 #### [facility] [address] [address] [address] Tigre Gant Calcium [Mass/Vol] 7.8 mg/dL Critically low 8.5-10.1 Th e [facility] Comment on above: Performed By: #### C MP, TSH, LIPID, FT3, T4 #### [facility] [address] [place] [address] Dr. Tigre Gant Chloride [Moles/Vol] 106 mmol/L Normal 98-107 [facility] Comment on above: Performed By: #### C MP, TSH, LIPID, FT3, T4 #### [facility] [address] [place] [address] Dr. Tigre Gant CO2 [Moles/Vol] 26.5 mmol/L Normal 21.0-32.0 [facility] Comment on above: Performed By: #### C MP, TSH, LIPID, FT3, T4 #### [facility] [address] [place] [address] Dr. Tigre Gant Creatinine [Mass/Vol] 1.48 mg/dL Critically high 0.70-1.30 [facility] Comment on above: Performed By: #### C MP, TSH, LIPID, FT3, T4 #### [facility] [address] [place] [address] Dr. Tigre Gant EGFR-AF AFGHAN 56 mL/min/1.73m2 Critically low >=60 [facility] Comment on above: Performed By: #### C MP, TSH, LIPID, FT3, T4 #### [facility] [address] [place] [address] Dr. Tigre Gant EGFR-NON AF AFGHAN 46 mL/min/1.73m2 Critically low >=60 [facility] Comment on above: Performed By: #### C MP, TSH, LIPID, FT3, T4 #### [facility] [address] [place] [address] Dr. Tigre Gant Globulin (S) [Mass/Vol] 3.3 g/dL Normal [facility] Comment on above: Performed By: #### C MP, TSH, LIPID, FT3, T4 #### [facility] [address] [place] [address] Dr. Tigre Gant Glucose [Mass/Vol] 99 mg/dL Normal 74-106 [facility] Comment on above: Performed By: #### C MP, TSH, LIPID, FT3, T4 #### [facility] [address] [place] [address] Dr. Tigre Gant Potassium [Moles/Vol] 4.1 mmol/L Normal 3.5-5.1 [facility] Comment on above: Performed By: #### C MP, TSH, LIPID, FT3, T4 #### [facility] [address] [place] [address] Dr. Tigre Gant Protein [Mass/Vol] 6.8 g/dL Normal 6.4-8.2 [facility] Comment on above: Performed By: #### C MP, TSH, LIPID, FT3, T4 #### [facility] [address] [place] [address] Dr. Tigre Gant Sodium [Moles/Vol] 143 mmol/L Normal 136-145 [facility] Comment on above: Performed By: #### C MP, TSH, LIPID, FT3, T4 #### [facility] [address] [place] [address] Dr. Tigre Gant Urea nitrogen [Mass/Vol] 17.0 mg/dL Normal 7.0-18.0 [facility] Comment on above: Performed By: #### C MP, TSH, LIPID, FT3, T4 #### [facility] [address] [place] [address] Dr. Tigre Gant Urea nitrogen/Creatinin e [Mass ratio] 11.5 mg/mg Normal [facility] Comment on above: Performed By: #### C MP, TSH, LIPID, FT3, T4 #### [facility] [address] [address] [address] Tigre Gant T4on 03-14-2022 T4 [Mass/Vol] 6.30 ug/dL Normal 4.50-12.10 [facility] Comment on above: Performed By: #### C MP, TSH, LIPID, FT3, T4 #### [facility] [address] [id number] Tigre Gant TSHon 03-14-2022 TSH 3.904 uIU/mL Critically high 0.358-3.740 [facility] Comment on above: Performed By: #### C MP, TSH, LIPID, FT3, T4 #### [facility] [address] [address] [address] Tigre Gant Ambulatory Visit Summaryon 0 12-26-2021 Ambulatory Visit Summary ZACH MANUEL :1945 Visit Date:12/26/2021 Ambulatory Visit Instructions Your Diagnosis BPH with urinary obstruction Elevated PSA Family history of prostate cancer Tests Performed Urnls Dip Stick Auto w/o Microscopy POC 24914 Your Care Team Attending Physician - JOSHUA [...] Where: [facility] [address] [place] [address]- [phone] Medications What How Much When Instructions Unchanged [...] Urnls Dip Stick Auto w/o Microscopy POC 52630 (12/26/2021) Bilirubin Urine Dipstick - Negative Blood Urine Dipstick - Negative Glucose Urine Dipstick - Negative Ketones Urine Dipstick - Negative Leukocytes Urine Dipstick - Negative Nitrite Urine Dipstick - Negative Protein Urine Dipstick - Negative Specific [place] Urine Dipstick - 1.025 Urine Appearance Urine [...] including vitamins, herbs, eye drops, creams, and zzwj-yxb-nxuaydj medicines. ? Any problems you or family members have had with anesthetic medicines. ? Any blood disorders you have. ? Any surgeries you menjivar (more content not included)... Normal [facility] Patient Educationon 12-27-19 Patient Education Urology [...] including vitamins, herbs, eye drops, creams, and xfkx-zci-vwjgndv medicines. ? Any problems you or family [...] tells you to take them. ? Taking yvqk-hix-lvfeccd medicines, vitamins, herbs, and supplements. Eating and [...] be jojo (more content not included)... 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 3. Family history of prostate cancer (Z80.42: Family history of malignant neoplasm of prostate) father Follow-up With When Contact Information JOSHUA MONTELONGO, Roxana Rodriguez, URL [facility] [address] [place] [address]- [phone] Additional Instructions: Patient Education Transurethral Resection of [...] BNT-162b2 v (more content not included)... Normal [facility] Comment on above: Result Comment: Elec tronically Signed By: Roxana LEWIS MD\.br\Date and Time Signed: 12/26/21 14:16 EDT\.br\Electronically Co-Signed By: Erica Moses MA\.br\Date and Time Co-Signed: 12/26/21 14:16 EDT Lab Report[facility] 12-21-2021 Lab Reports [id number] 0CD:127 Normal [facility] PSA, FREE AND TOTAL RATIOon 12-21-2021 % Free PSA 24.5 % Normal [facility] Comment on above: Result Comment: The [...] men. Performed By: #### A 1C #### [facility] [address] [place] [address] Dr. Tigre Gant Prostate specific Ag [Mass/Vol] 4.2 ng/mL Critically high 0.0-4.0 [facility] Comment on above: Result Comment: Renee JONES methodology. . According to the [employer], Serum PSA should decrease and [...] disease. Performed By: #### A 1C #### [facility] [address] [place] [address] Dr. Tigre Gant PSA, Free 1.03 ng/mL Normal N/A [facility] Comment on above: Result Comment: Renee JONES methodology. Performed By: #### A 1C #### [facility] [address] [place] [address] Dr. Tigre Gant Lab Reportson 11-14-2021 Lab Reports [id number] 0CD:127 Normal [facility] CLOSTRIDIUM DIFFICILE PCRon 09-13-2021 C difficile Toxin Gene SHOSHANA Negative Normal Negative [facility] Comment on above: Performed By: #### A 1C #### [facility] [address] [place] [address] Dr. Tigre Gant GI PANEL (PCR)on 09-12-2021 Adenovirus F 40/41 Not detected Normal NOT DETECTED [facility] Comment on above: Performed By: #### G IPANEL #### [facility] [address] [place] [address] Dr. Tigre Gant Astrovirus Not detected Normal NOT DETECTED [facility] Comment on above: Performed By: #### G IPANEL #### [facility] [address] [place] [address] Dr. Tigre Gant C. Diff toxin A/B Not detected Normal NOT DETECTED [facility] Comment on above: Performed By: #### G IPANEL #### [facility] [address] [address] [address] Tigre Gant Campylobacter Not detected Normal NOT DETECTED The [facility] Comment on above: Performed By: #### G IPANEL #### [facility] [address] [place] [address] Dr. Tigre Gant Cryptosporidium Not detected Normal NOT DETECTED The [facility] Comment on above: Performed By: #### G IPANEL #### [facility] [address] [place] [address] Dr. Tigre Gant Cyclos. Cayetanensis Not detected Normal NOT DETECTED [facility] Comment on above: Performed By: #### G IPANEL #### [facility] [address] [place] [address] Dr. Tigre Gant E. Coli O157 Not Applicable Normal Not Applicable [facility] Comment on above: Performed By: #### G IPANEL #### [facility] [address] [place] [address] Dr. Tigre Gant E. histolytica Not detected Normal NOT DETECTED [facility] Comment on above: Performed By: #### G IPANEL #### [facility] [address] [place] [address] Dr. Tigre Gant EAEC Not detected Normal NOT DETECTED [facility] Comment on above: Performed By: #### G IPANEL #### [facility] [address] [address] [address] Tigre Gant EIEC Not detected Normal NOT DETECTED [facility] Comment on above: Performed By: #### G IPANEL #### [facility] [address] [place] [address] Dr. Tigre Gant EPEC Not detected Normal NOT DETECTED [facility] Comment on above: Performed By: #### G IPANEL #### [facility] [address] [place] [address] Dr. Tigre Gant ETEC Not detected Normal NOT DETECTED [facility] Comment on above: Performed By: #### G IPANEL #### [facility] [address] [place] [address] Dr. Tigre Valverde Lamblia Not detected Normal NOT DETECTED [facility] Comment on above: Performed By: #### G IPANEL #### [facility] [address] [place] [address] Dr. Tigre ROSALES CONTROLS PASSED Normal [facility] Comment on above: Performed By: #### G IPANEL #### [facility] [address] [place] [address] Dr. Tigre [facility] GI PANEL BACTERIA Normal [facility] Comment on above: Performed By: #### G IPANEL #### [facility] [address] [place] [address] Dr. Tigre CAPUTO ECOLI GI PANEL DIARRHEAGEN IC E.COLI / SHIGELLA Normal [facility] Comment on above: Performed By: #### G IPANEL #### [facility] [address] [place] [address] Dr. Tigre CAPUTO INFO SEE BELOW Normal [facility] Comment on above: Result Comment: EAEC - Enteroaggregative E. Coli EPEC- Enteropathogenic E. Coli ETEC- Enterotoxigenic E. Coli lt/st STEC- Shigella-like toxin-producing E. Coli stx1/stx2 EIEC- Shigella/Enteroinvasive E. Coli Performed By: #### G IPANEL #### [facility] [address] [place] [address] Dr. Tigre CAPUTO PARASITES GI PANEL PARASITES Normal [facility] Comment on above: Performed By: #### G IPANEL #### [facility] [address] [place] [address] Dr. Tigre CAPUTO VIRUS GI PANEL VIRUSES Normal [facility] Comment on above: Performed By: #### G IPANEL #### [facility] [address] [place] [address] Dr. Tigre Gant Norovirus GI/GII Not detected Normal NOT DETECTED [facility] Comment on above: Performed By: #### G IPANEL #### [facility] [address] [place] [address] Dr. Tigre Gant P. Shigelloides Not detected Normal NOT DETECTED [facility] Comment on above: Performed By: #### G IPANEL #### [facility] [address] [place] [address] Dr. Tigre Gant Rotavirus A Not detected Normal NOT DETECTED The [facility] Comment on above: Performed By: #### G IPANEL #### [facility] [address] [place] [address] Dr. Tigre Gant Salmonella Not detected Normal NOT DETECTED [facility] Comment on above: Performed By: #### G IPANEL #### [facility] [address] [place] [address] Dr. Tigre Gant Sapovirus Not detected Normal NOT DETECTED [facility] Comment on above: Performed By: #### G IPANEL #### [facility] [address] [place] [address] Dr. Tigre Gant STEC Not detected Normal NOT DETECTED [facility] Comment on above: Performed By: #### G IPANEL #### [facility] [address] [place] [address] Dr. Tigre Gant Vibrio Not detected Normal NOT DETECTED [facility] Comment on above: Performed By: #### G IPANEL #### [facility] [address] [address] [address] Tigre Gant Vibrio Cholera Not detected Normal NOT DETECTED [facility] Comment on above: Performed By: #### G IPANEL #### [facility] [address] [address] [address] Tigre Gant Y. Enterocolitica Not detected Normal NOT DETECTED [facility] Comment on above: Performed By: #### G IPANEL #### [facility] [address] [address] [address] Tigre Gant XR lumbar spine 6V w bending on 05-05-2021 XR lumbar spine 6V w bending [facility] [place] [address] [place] [address] XRay Report Signed Patient: Zach Manuel MR#: [id number] 9 : 1945 Acct:[id number] Age/Sex: 76 / M ADM Date: 05/05/21 Loc: XD Room: Type: [facility] Attending Dr: Kosta Harper MD Ordering [...] Kumar Jr., M.D.05/05/2021 2:07 PM Dictation Location: [place] [address] Transcribed By: [facility] 05/05/21 1407 Dictated By: Carson Kumar Jr, MD 05/05/21 1353 Signed By: 05/05/21 1407 [facility] Lab Report[facility] 02-21-2021 Lab Reports [id number] 0CD:127 Normal [facility] Ambulatory Clinical Summaryo n 01-03-2021 Ambulatory Clinical Summary {[id number]}CD:[id number] Normal [facility] Patient Educationon 01-04-20 Patient Education Benign [...] Document Reviewed: 05/15/2008 ExitCare? Patient Information ?[address] [facility] Urology Office/Clinic Noteon 01-03-2021 Urology Office/Clinic [...] When Contact Information LEWIS Roxana MONTELONGO [address] [place] [phone] Additional Instructions: 1yr. psa Patient Education Benign [...] 30 days (more content not included)... Normal [facility] Comment on above: Result Comment: Elec tronically Signed By: Roxana LEWIS MD\.br\Date and Time Signed: 01/03/21 14:46 EDT\.br\Electronically Co-Signed By: Shayna Ramirez MA\.br\Date and Time Co-Signed: 01/03/21 14:45 EDT FEMUR RIGHT 2 VWSon 05-16-20 19 FEMUR RIGHT 2 VWS [facility] Department of Radiology [address] [place] [phone] ======== Patient Name: ZACH MANUEL : [...] hip Electronically signed by:Jazmín Hernandez. Transcribed by: [email or web address], User Resident: Electronically Signed by: JAZMÍN HERNANDEZ @ 05/16/2019 03:38 PM Normal [facility] Comment on above: Order Comment: , , = ========= , Ordering Provider - ZHENG SCOTT PA-C , FEMUR RIGHT 2 [facility] 02-14-20 19 FEMUR RIGHT 2 [facility] Department of Radiology [address] [place] [phone] ======== Patient Name: ZACH MANUEL : [...] SCOTT PA-C , Exam: FEMUR RIGHT 2 [facility] ======== FEMUR RIGHT 2 S 02/13/2019 [...] healing. Electronically signed by:Jazmín Hernandez. Transcribed by: [email or web address], User Resident: Electronically Signed by: JAZMÍN HERNANDEZ @ 02/13/2019 05:05 PM Normal [facility] Comment on above: Order Comment: , , = ========= , Ordering Provider - ZHENG SCOTT PA-C , FEMUR RIGHT 2 [facility] 01-10-20 19 FEMUR RIGHT 2 [facility] Department of Radiology [address] [place] [phone] ======== Patient Name: ZACH MANUEL : [...] reaction Electronically signed by:Soila Morris. Transcribed by: [email or web address], User Resident: Electronically Signed by: SOILA MORRIS @ 01/09/2019 12:25 PM Normal [facility] Comment on above: Order Comment: , , = ========= , Ordering Provider - JACQUELINE CROSS PA-C , FEMUR RIGHT 2 Son 12-11-19 19 FEMUR RIGHT 2 S [facility] Department of Radiology [address] [place] [phone] ======== Patient Name: ZACH MANUEL : 1945 Sex: M Age: Race: White Pt. Location: 84 Patient Status: Ordered Date: 12/10/2018 1:20:00 PM Completed Date: 12/10/2018 01:34 PM Requesting Provider: ZHENG SCOTT Attending Provider: Report Copy To: Signs & Symptoms: S72.21XD Displ subtrochnt fx r femur, subs for clos fx w routn heal I10 History: [place] Comments: , Views (X-RAY, FEMUR): Radiologic Protocol [...] fracture Electronically signed by:Soila Morris. Transcribed by: [email or web address], User Resident: Electronically Signed by: SOILA MORRIS @ 12/10/2018 03:21 PM Normal [facility] Comment on above: Order Comment: , Vie ws (X-RAY, FEMUR): Radiologic Protocol , Weight Bearing?: Y , Views (X-RAY, FEMUR): Radiologic Protocol , Weight Bearing?: Y , , , Ordering Provider - ZHENG SCOTT PA-C , VITAMIN D 25-HYDROXYon 12-10 VITAMIN D 25-OH 40.2 ng/mL Normal 30.0-80.0 [facility] Comment on above: Result Comment: >80. 0 Toxicity possible Performed By: #### 6 2586 #### [address] FEMUR RIGHT 2 [facility] 10-29-19 19 FEMUR RIGHT 2 S [facility] Department of Radiology [address] [place] [phone] ======== Patient Name: ZACH MANUEL : 1945 Sex: M Age: Race: White Pt. Location: Patient Status: O Ordered Date: 10/29/2018 12:00:00 PM Completed Date: 10/29/2018 01:58 PM Requesting Provider: ZHENG SCOTT Attending Provider: HZENG SCOTT Report Copy To: HANNA MATHIAS Signs & Symptoms: S72.21XD Displ subtrochnt fx r femur, subs for clos fx w routn heal I10 History: [place] Comments: , , , Ordering Provider - ZHENG DEWITTC , Exam: FEMUR RIGHT 2 [facility] ======== FEMUR RIGHT 2 VWS 10/29/2018 [...] healing Electronically signed by:Soila Morris. Transcribed by: [email or web address], User Resident: Electronically Signed by: SOILA MORRIS @ 10/29/2018 02:17 PM Normal [facility] Comment on above: Order Comment: , , = ========= , Ordering Provider - ZHENG SCOTT PA-C , FEMUR RIGHT 2 VWSon 09-20-20 18 FEMUR RIGHT 2 S [facility] Department of Radiology [address] [place] [phone] ======== Patient Name: ZACH MANUEL : 1945 Sex: M Age: Race: White Pt. Location: 84 Patient Status: O Ordered Date: 09/20/2018 12:45:00 PM Completed Date: 09/20/2018 12:45 PM Requesting Provider: ZHENG SCOTT Attending Provider: JAQCUELINE CROSS Report Copy To: HANNA MATHIAS Signs & Symptoms: S72.21XD Displ subtrochnt fx r femur, subs for clos fx w routn heal I10 History: [place] Comments: , Views (X-RAY, FEMUR): AP, Lateral , Views (X-RAY, FEMUR): AP, Lateral , , , Ordering Epi - ZHENG SCOTT PA-C , Exam: FEMUR RIGHT 2 [facility] ======== FEMUR RIGHT 2 S 09/20/2018 [...] bridging Electronically signed by:Soila Morris. Transcribed by: [email or web address], User Resident: Electronically Signed by: SOILA MORRIS @ 09/20/2018 01:08 PM Normal [facility] Comment on above: Order Comment: , Jaky ws (X-RAY, FEMUR): AP, Lateral , Views (X- RAY, FEMUR): AP, Lateral , , , Ordering Provider - ZHENG SCOTT PA-C , FEMUR RIGHT 2 Son 08-23-20 18 FEMUR RIGHT 2 S [facility] Department of Radiology [address] [place] [phone] ======== Patient Name: ZACH MANUEL : [...] SCOTT PA-C , Exam: FEMUR RIGHT 2 [facility] ======== FEMUR RIGHT 2 S 08/23/2018 [...] disease Electronically signed by:Soila Morris. Transcribed by: [email or web address], User Resident: Electronically Signed by: SOILA MORRIS @ 08/23/2018 02:15 PM Normal [facility] Comment on above: Order Comment: , Jaky ws (X-RAY, FEMUR): AP, Lateral , Views (X- RAY, FEMUR): AP, Lateral , , , Ordering Epi SCOTT PA-C , FEMUR RIGHT 2 [facility] 07-25-20 18 FEMUR RIGHT 2 [facility] Department of Radiology [address] [place] [phone] ======== Patient Name: ZACH MANUEL : 1945 Sex: M Age: Race: White Pt. Location: Patient Status: Ordered Date: 07/25/2018 10:10:00 AM Completed Date: 07/25/2018 10:16 AM Requesting Provider: JACQUELINE CROSS Attending Provider: Report Copy To: Signs & Symptoms: S72.21XA Displaced subtrochanteric fracture of right femur, init I10 History: [place] Comments: , , , Ordering Provider - [...] above Electronically signed by:Soila Morris. Transcribed by: [email or web address], User Resident: Electronically Signed by: SOILA MORRIS @ 07/25/2018 02:02 PM Normal [facility] Comment on above: Order Comment: , , = ========= , Ordering Provider - JACQUELINE CROSS PA-C , BASIC METABOLIC PANELon 10-2 Calcium [Mass/Vol] 8.2 mg/dL Low 8.6-10.3 [facility] Comment on above: Order Comment: No: D o not add to previous draw Performed By: #### 5 0103 #### [facility] [address] [place] [address], [place] Chloride [Moles/Vol] 100 mmol/L Normal 98-107 [facility] Comment on above: Order Comment: No: D o not add to previous draw Performed By: #### 5 0103 #### [facility] [address] [place] [address], [place] CO2 [Moles/Vol] 25 mmol/L Normal 21-31 [facility] Comment on above: Order Comment: No: D o not add to previous draw Performed By: #### 5 0103 #### [facility] [address] [place] [address], [place] Creatinine [Mass/Vol] 1.11 mg/dL Normal 0.70-1.30 [facility] Comment on above: Order Comment: No: D o not add to previous draw Performed By: #### 5 0103 #### [facility] [address] [place] [address], [place] GFR/1.73 sq M predicted among blacks MDRD (S/P/Bld) [Vol rate/Area] mL/min/{1.73_m2} Normal >60 [facility] Comment on above: Order Comment: No: D o not add to previous draw Result Comment: Calc ulation may not be valid for patients over 70 years Performed By: #### 5 0103 #### [facility] [address] [place] [address], [place] GFR/1.73 sq M predicted among non-blacks MDRD (S/P/Bld) [Vol rate/Area] mL/min/{1.73_m2} Normal >60 [facility] Comment on above: Order Comment: No: D o not add to previous draw Result Comment: Calc ulation may not be valid for patients over 70 years Performed By: #### 5 0103 #### [facility] [address] [place] [address], [place] Glucose [Mass/Vol] 243 mg/dL High 70-100 [facility] Comment on above: Order Comment: No: D o not add to previous draw Performed By: #### 5 0103 #### [facility] [address] [place] [address], [place] Potassium [Moles/Vol] 3.7 mmol/L Normal 3.5-5.1 [facility] Comment on above: Order Comment: No: D o not add to previous draw Performed By: #### 5 0103 #### [facility] [address] [place] [address], [place] Sodium [Moles/Vol] 131 mmol/L Low 136-145 [facility] Comment on above: Order Comment: No: D o not add to previous draw Performed By: #### 5 0103 #### [facility] [address] [place] [address], [place] Urea nitrogen [Mass/Vol] 18 mg/dL Normal 7-25 [facility] Comment on above: Order Comment: No: D o not add to previous draw Performed By: #### 5 0103 #### [facility] [address] [place] [address], [place] CBC COMPLETE BLOOD COUNTon Erythrocyte distribution width (RBC) [Ratio] 12.4 % Normal 11.5-15.0 [facility] Comment on above: Order Comment: No: D o not add to previous draw Performed By: #### 5 0103 #### [facility] [address] [place] [address], [place] Hematocrit (Bld) [Volume fraction] 25.4 % Low 39.0-50.0 [facility] Comment on above: Order Comment: No: D o not add to previous draw Performed By: #### 5 0103 #### [facility] [address] [place] [address], [facility] Hemoglobin (Bld) [Mass/Vol] 8.6 g/dL Low 13.0-17.0 [facility] Comment on above: Order Comment: No: D o not add to previous draw Performed By: #### 5 0103 #### [facility] [address] [place] [address], [facility] IMM PLATELET FRAC 5.2 % Normal 0.8-6.3 [facility] Comment on above: Order Comment: No: D o not add to previous draw Performed By: #### 5 0103 #### [facility] [address] [facility] [place] [address], [facility] MCH (RBC) [Entitic mass] 31.4 pg Normal 27.0-33.0 [facility] Comment on above: Order Comment: No: D o not add to previous draw Performed By: #### 5 0103 #### [facility] [address] [place] [address], [facility] MCHC (RBC) [Mass/Vol] 33.9 g/dL Normal 32.0-35.0 [facility] Comment on above: Order Comment: No: D o not add to previous draw Performed By: #### 5 0103 #### [facility] [address] [facility] [place] [address], [facility] MCV (RBC) [Entitic vol] 92.7 fL Normal 82.0-98.0 [facility] Comment on above: Order Comment: No: D o not add to previous draw Performed By: #### 5 0103 #### [facility] [address] [facility] [address] [place] [id number], [facility] Nucleated RBC/100 WBC (Bld) [Ratio] 0 % Normal 0-0 [facility] Comment on above: Order Comment: No: D o not add to previous draw Performed By: #### 5 0103 #### [facility] [address] [place] [address], [place] PLAT CNT 130 10*3/uL Low 150-400 [facility] Comment on above: Order Comment: No: D o not add to previous draw Performed By: #### 5 0103 #### [facility] [address] [place] [address], [place] RBC (Bld) [#/Vol] 2.74 10*6/uL Low 4.20-5.70 [facility] Comment on above: Order Comment: No: D o not add to previous draw Performed By: #### 5 0103 #### [facility] [address] [place] [address], [place] WBC (Bld) [#/Vol] 6.87 10*3/uL Normal 4.00-10.60 [facility] Comment on above: Order Comment: No: D o not add to previous draw Performed By: #### 5 0103 #### [facility] [address] [place] [address], [place] POC GLUCOSE LABon 07-16-2018 Glucose [Mass/Vol] 281 mg/dL High 70-100 [facility] Comment on above: Performed By: #### 5 0103 #### [facility] [address] [place] [address], [place] Glucose [Mass/Vol] 250 mg/dL High 70-100 [facility] Comment on above: Performed By: #### 5 0261, 81350 #### [facility] [address] [place] [address], [place] Glucose [Mass/Vol] 240 mg/dL High 70-100 [facility] Comment on above: Performed By: #### 5 9231, 17428 #### [facility] [address] [place] [address], [place] BASIC METABOLIC PANELon 06-25 Calcium [Mass/Vol] 8.0 mg/dL Low 8.6-10.[address] [facility] Comment on above: Order Comment: No: D o not add to previous draw Performed By: #### 5 6101, 33105 #### [facility] [address] [place] [address], [place] Chloride [Moles/Vol] 101 mmol/L Normal 98-107 [facility] Comment on above: Order Comment: No: D o not add to previous draw Performed By: #### 5 6101, 60959 #### [facility] [address] [place] [address], [place] CO2 [Moles/Vol] 25 mmol/L Normal 21-31 [facility] Comment on above: Order Comment: No: D o not add to previous draw Performed By: #### 5 6101, 56259 #### [facility] [address] [place] [address], [place] Creatinine [Mass/Vol] 1.23 mg/dL Normal 0.70-1.30 [facility] Comment on above: Order Comment: No: D o not add to previous draw Performed By: #### 5 6101, 79790 #### [facility] [address] [place] [address], [place] GFR/1.73 sq M predicted among blacks MDRD (S/P/Bld) [Vol rate/Area] mL/min/{1.73_m2} Normal >60 [facility] Comment on above: Order Comment: No: D o not add to previous draw Result Comment: Calc ulation may not be valid for patients over 70 years Performed By: #### 5 6101, 75422 #### [facility] [address] [place] [address], [place] GFR/1.73 sq M predicted among non-blacks MDRD (S/P/Bld) [Vol rate/Area] 58 ml/min/1.73sq m Abnormal >60 [facility] Comment on above: Order Comment: No: D o not add to previous draw Result Comment: Calc ulation may not be valid for patients over 70 years Performed By: #### 5 6101, 27836 #### [facility] [address] [place] [address], [facility] Glucose [Mass/Vol] 207 mg/dL High 70-100 [facility] Comment on above: Order Comment: No: D o not add to previous draw Performed By: #### 5 610, 08906 #### [facility] [address] [place] [id number], [facility] Potassium [Moles/Vol] 3.7 mmol/L Normal 3.5-5.1 [facility] Comment on above: Order Comment: No: D o not add to previous draw Performed By: #### 5 610, 23290 #### [facility] [address] [place] [address], [facility] Sodium [Moles/Vol] 130 mmol/L Low 136-145 [facility] Comment on above: Order Comment: No: D o not add to previous draw Performed By: #### 5 610, 44867 #### [facility] [address] [facility] [place] [address], [facility] Urea nitrogen [Mass/Vol] 16 mg/dL Normal 7-25 [facility] Comment on above: Order Comment: No: D o not add to previous draw Performed By: #### 5 610, 75029 #### [facility] [address] [facility] [place] [address], [facility] CBC W/DIFFon 07-15-2018 ABS BASOPHILS 0.0 10*3/uL Normal 0.0-0.2 [facility] Comment on above: Order Comment: No: D o not add to previous draw Performed By: #### 5 610, 04454 #### [facility] [address] [place] [id number], [facility] ABS IMM GRANS 0.1 10*3/uL Normal 0.0-0.2 [facility] Comment on above: Order Comment: No: D o not add to previous draw Performed By: #### 5 610, 93586 #### [facility] [address] [place] [address], [place] ABS NEUTROPHILS 7.6 10*3/uL Normal 1.6-7.6 [facility] Comment on above: Order Comment: No: D o not add to previous draw Performed By: #### 5 6100, 62319 #### [facility] [address] [place] [address], [place] Basophils/100 WBC (Bld) 0.3 % Normal 0.0-1.0 [facility] Comment on above: Order Comment: No: D o not add to previous draw Performed By: #### 5 6100, 96471 #### [facility] [address] [place] [address], [place] Eosinophils (Bld) [#/Vol] 0.1 10*3/uL Normal 0.0-0.5 [facility] Comment on above: Order Comment: No: D o not add to previous draw Performed By: #### 5 6100, 56944 #### [facility] [address] [place] [address], [place] Eosinophils/100 WBC (Bld) 1.6 % Normal 0.0-6.0 [facility] Comment on above: Order Comment: No: D o not add to previous draw Performed By: #### 5 6100, 75030 #### [facility] [address] [place] [address], [place] Erythrocyte distribution width (RBC) [Ratio] 12.5 % Normal 11.5-15.0 [facility] Comment on above: Order Comment: No: D o not add to previous draw Performed By: #### 5 6100, 81294 #### [facility] [address] [place] [address], [place] Hematocrit (Bld) [Volume fraction] 26.0 % Low 39.0-50.0 [facility] Comment on above: Order Comment: No: D o not add to previous draw Performed By: #### 5 6100, 83767 #### [facility] [address] [place] [address], [facility] Hemoglobin (Bld) [Mass/Vol] 8.8 g/dL Low 13.0-17.0 [facility] Comment on above: Order Comment: No: D o not add to previous draw Performed By: #### 5 6100, 17431 #### [facility] [address] [place] [address], [facility] IMM PLATELET FRAC 4.5 % Normal 0.8-6.3 [facility] Comment on above: Order Comment: No: D o not add to previous draw Performed By: #### 5 6100, 88656 #### [facility] [address] [place] [address], [facility] IMMATURE GRANS 0.6 % Normal 0.0-1.0 [facility] Comment on above: Order Comment: No: D o not add to previous draw Performed By: #### 5 6100, 64326 #### [facility] [address] [facility] [place] [address], [facility] Lymphocytes (Bld) [#/Vol] 0.2 10*3/uL Low 1.2-4.0 [facility] Comment on above: Order Comment: No: D o not add to previous draw Performed By: #### 5 6100, 82847 #### [facility] [address] [place] [address], [facility] Lymphocytes/100 WBC (Bld) 2.1 % Low 20.0-45.0 [facility] Comment on above: Order Comment: No: D o not add to previous draw Performed By: #### 5 6100, 66249 #### [facility] [address] [facility] [address] [address] MCH (RBC) [Entitic mass] 31.7 pg Normal 27.0-33.0 [facility] Comment on above: Order Comment: No: D o not add to previous draw Performed By: #### 5 610, 10705 #### [facility] [address] [place] [id number], [facility] MCHC (RBC) [Mass/Vol] 33.8 g/dL Normal 32.0-35.0 [facility] Comment on above: Order Comment: No: D o not add to previous draw Performed By: #### 5 6100, 95187 #### [facility] [address] [place] [address], [facility] MCV (RBC) [Entitic vol] 93.5 fL Normal 82.0-98.0 [facility] Comment on above: Order Comment: No: D o not add to previous draw Performed By: #### 5 6100, 09097 #### [facility] [address] [place] [address], [facility] Monocytes (Bld) [#/Vol] 0.6 10*3/uL Normal 0.1-1.0 [facility] Comment on above: Order Comment: No: D o not add to previous draw Performed By: #### 5 6100, 65038 #### [facility] [address] [place] [address], [facility] MONOS 7.1 % Normal 5.0-12.0 [facility] Comment on above: Order Comment: No: D o not add to previous draw Performed By: #### 5 6100, 12483 #### [facility] [address] [place] [address], [facility] Neutrophils/100 WBC (Bld) 88.3 % High 40.0-72.0 [facility] Comment on above: Order Comment: No: D o not add to previous draw Performed By: #### 5 6100, 30010 #### [facility] [address] [place] [address], [facility] Nucleated RBC/100 WBC (Bld) [Ratio] 0 % Normal 0-0 [facility] Comment on above: Order Comment: No: D o not add to previous draw Performed By: #### 5 610, 15292 #### [facility] [address] [place] [address], [place] PLAT CNT 113 10*3/uL Low 150-400 [facility] Comment on above: Order Comment: No: D o not add to previous draw Performed By: #### 5 610, 79450 #### [facility] [address] [place] [address], [facility] RBC (Bld) [#/Vol] 2.78 10*6/uL Low 4.20-5.70 [facility] Comment on above: Order Comment: No: D o not add to previous draw Performed By: #### 5 610, 65454 #### [facility] [address] [place] [address], [place] WBC (Bld) [#/Vol] 8.62 10*3/uL Normal 4.00-10.60 [facility] Comment on above: Order Comment: No: D o not add to previous draw Performed By: #### 5 610, 72715 #### [facility] [address] [place] [address], [facility] POC GLUCOSE LABon 07-15-2018 Glucose [Mass/Vol] 281 mg/dL High 70-[address] [facility] Comment on above: Performed By: #### 5 610, 63234 #### [facility] [address] [place] [address], [facility] Glucose [Mass/Vol] 305 mg/dL High 70-[address] [facility] Comment on above: Performed By: #### 5 610, 95650 #### [facility] [address] [facility] [place] [address], [place] Glucose [Mass/Vol] 198 mg/dL High 70-100 [facility] Comment on above: Performed By: #### 5 610, 12261 #### [facility] [address] [place] [address], [place] Glucose [Mass/Vol] 227 mg/dL High 70-100 [facility] Comment on above: Performed By: #### 5 610, 49381 #### [facility] [address] [place] [address], [place] BASIC METABOLIC PANELon 10-2 Calcium [Mass/Vol] 8.3 mg/dL Low 8.6-10.3 [facility] Comment on above: Order Comment: Unkno wn Performed By: #### 5 610, 85372 #### [facility] [address] [place] [address], [place] Chloride [Moles/Vol] 105 mmol/L Normal 98-107 [facility] Comment on above: Order Comment: Unkno wn Performed By: #### 5 610, 92221 #### [facility] [address] [facility] [place] [address], [place] CO2 [Moles/Vol] 24 mmol/L Normal 21-31 [facility] Comment on above: Order Comment: Unkno wn Performed By: #### 5 6101, 07260 #### [facility] [address] [place] [address], [place] Creatinine [Mass/Vol] 1.20 mg/dL Normal 0.70-1.30 [facility] Comment on above: Order Comment: Unkno wn Performed By: #### 5 6101, 62787 #### [facility] [address] [place] [address], [place] GFR/1.73 sq M predicted among blacks MDRD (S/P/Bld) [Vol rate/Area] mL/min/{1.73_m2} Normal >60 [facility] Comment on above: Order Comment: Unkno wn Result Comment: Calc ulation may not be valid for patients over 70 years Performed By: #### 5 610, 93042 #### [facility] [address] [place] [address], [place] GFR/1.73 sq M predicted among non-blacks MDRD (S/P/Bld) [Vol rate/Area] 60 ml/min/1.73sq m Abnormal >60 [facility] Comment on above: Order Comment: Unkno wn Result Comment: Calc ulation may not be valid for patients over 70 years Performed By: #### 5 610, 17567 #### [facility] [address] [place] [address], [place] Glucose [Mass/Vol] 181 mg/dL High 70-100 [facility] Comment on above: Order Comment: Unkno wn Performed By: #### 5 610, 47420 #### [facility] [address] [place] [address], [place] Potassium [Moles/Vol] 3.7 mmol/L Normal 3.5-5.1 [facility] Comment on above: Order Comment: Unkno wn Performed By: #### 5 610, 54838 #### [facility] [address] [place] [address], [place] Sodium [Moles/Vol] 133 mmol/L Low 136-145 [facility] Comment on above: Order Comment: Unkno wn Performed By: #### 5 610, 81836 #### [facility] [address] [place] [address], [place] Urea nitrogen [Mass/Vol] 18 mg/dL Normal 7-25 [facility] Comment on above: Order Comment: Unkno wn Performed By: #### 5 610, 67250 #### [facility] [address] [place] [address], [place] CBC COMPLETE BLOOD COUNTon - Erythrocyte distribution width (RBC) [Ratio] 12.7 % Normal 11.5-15.0 [facility] Comment on above: Order Comment: Unkno wn Performed By: #### 5 610, 94014 #### [facility] [address] [place] [id number], [facility] Hematocrit (Bld) [Volume fraction] 28.6 % Low 39.0-50.0 [facility] Comment on above: Order Comment: Unkno wn Performed By: #### 5 6100, 23230 #### [facility] [address] [place] [id number], [facility] Hemoglobin (Bld) [Mass/Vol] 9.8 g/dL Low 13.0-17.0 [facility] Comment on above: Order Comment: Unkno wn Performed By: #### 5 6100, 03316 #### [facility] [address] [place] [id number], [facility] IMM PLATELET FRAC 4.1 % Normal 0.8-6.3 [facility] Comment on above: Order Comment: Unkno wn Performed By: #### 5 6100, 47834 #### [facility] [address] [place] [id number], [facility] MCH (RBC) [Entitic mass] 31.5 pg Normal 27.0-33.0 [facility] Comment on above: Order Comment: Unkno wn Performed By: #### 5 6100, 00136 #### [facility] [address] [place] [address], [place] MCHC (RBC) [Mass/Vol] 34.3 g/dL Normal 32.0-35.0 [facility] Comment on above: Order Comment: Unkno wn Performed By: #### 5 610, 32675 #### [facility] [address] [place] [id number], [facility] MCV (RBC) [Entitic vol] 92.0 fL Normal 82.0-98.0 [facility] Comment on above: Order Comment: Unkno wn Performed By: #### 5 6101, 94397 #### [facility] [address] [place] [address], [facility] Nucleated RBC/100 WBC (Bld) [Ratio] 0 % Normal 0-0 [facility] Comment on above: Order Comment: Unkno wn Performed By: #### 5 6101, 38753 #### [facility] [address] [place] [address], [facility] PLAT CNT 119 10*3/uL Low 150-400 [facility] Comment on above: Order Comment: Unkno wn Performed By: #### 5 6101, 05036 #### [facility] [address] [facility] [place] [address], [facility] RBC (Bld) [#/Vol] 3.11 10*6/uL Low 4.20-5.70 [facility] Comment on above: Order Comment: Unkno wn Performed By: #### 5 6101, 54142 #### [facility] [address] [facility] [place] [address], [facility] WBC (Bld) [#/Vol] 6.45 10*3/uL Normal 4.00-10.60 [facility] Comment on above: Order Comment: Unkno wn Performed By: #### 5 6101, 14055 #### [facility] [address] [facility] [place] [address], [facility] MAGNESIUM BLOODon 07-14-2018 Magnesium [Mass/Vol] 1.3 mg/dL Low 1.9-2.7 [facility] Comment on above: Order Comment: Unkno wn Performed By: #### 5 6101, 06186 #### [facility] [address] [place] [address], [facility] PHOSPHORUS BLOODon 8 Phosphate [Mass/Vol] 3.4 mg/dL Normal 2.5-5.0 [facility] Comment on above: Order Comment: Unkno wn Performed By: #### 5 610, 50203 #### [facility] [address] [place] [address], [place] POC GLUCOSE LABon 07-14-2018 Glucose [Mass/Vol] 253 mg/dL High 70-100 [facility] Comment on above: Performed By: #### 5 610, 65322 #### [facility] [address] [place] [address], [place] Glucose [Mass/Vol] 272 mg/dL High 70-100 [facility] Comment on above: Performed By: #### 5 610, 46599 #### [facility] [facility] [address] [place] [address], [place] Glucose [Mass/Vol] 167 mg/dL High 70-100 [facility] Comment on above: Performed By: #### 5 610, [id number] #### [facility] [address] [place] [address], [place] Glucose [Mass/Vol] 220 mg/dL High 70-100 [facility] Comment on above: Performed By: #### 5 610, 13523 #### [facility] [address] [place] [address], [place] VITAMIN D 25-HYDROXYon 07-14 VITAMIN D 25-OH 26.4 ng/mL Low 30.0-80.0 [facility] Comment on above: Result Comment: >80. 0 Toxicity possible Performed By: #### 5 610, 02763 #### [facility] [address] [place] [address], [place] APTTon 07-13-2018 aPTT Coag (Bld) [Time] 23.9 s Low 25.0-35.0 [facility] Comment on above: Result Comment: ALL RESULTS [...] THIS PURPOSE. Performed By: #### 5 6101, 82601 #### [facility] [address] [place] [address], [facility] BASIC METABOLIC PANELon 10-2 Calcium [Mass/Vol] 8.7 mg/dL Normal 8.6-10.[address] [facility] Comment on above: Performed By: #### 0 0071 #### [facility] [address] [place] [address], [facility] Chloride [Moles/Vol] 103 mmol/L Normal 98-107 [facility] Comment on above: Performed By: #### 0 0071 #### [facility] [address] [place] [address], [facility] CO2 [Moles/Vol] 24 mmol/L Normal 21-31 [facility] Comment on above: Performed By: #### 0 0071 #### [facility] [address] [place] [address], [facility] Creatinine [Mass/Vol] 1.18 mg/dL Normal 0.70-1.30 [facility] Comment on above: Performed By: #### 0 0071 #### [facility] [address] [place] [address], [facility] GFR/1.73 sq M predicted among blacks MDRD (S/P/Bld) [Vol rate/Area] mL/min/{1.73_m2} Normal >60 [facility] Comment on above: Result Comment: Calc ulation may not be valid for patients over 70 years Performed By: #### 0 0071 #### [facility] [address] [place] [address], [facility] GFR/1.73 sq M predicted among non-blacks MDRD (S/P/Bld) [Vol rate/Area] mL/min/{1.73_m2} Normal >60 [facility] Comment on above: Result Comment: Calc ulation may not be valid for patients over 70 years Performed By: #### 0 0071 #### [facility] [address] [facility] [place] [address], [facility] Glucose [Mass/Vol] 165 mg/dL High 70-100 [facility] Comment on above: Performed By: #### 0 0071 #### [facility] [address] [place] [address], [facility] Potassium [Moles/Vol] 4.1 mmol/L Normal 3.5-5.1 [facility] Comment on above: Performed By: #### 0 0071 #### [facility] [address] [place] [address], [facility] Sodium [Moles/Vol] 132 mmol/L Low 136-145 [facility] Comment on above: Performed By: #### 0 0071 #### [facility] [address] [place] [address], [facility] Urea nitrogen [Mass/Vol] 21 mg/dL Normal 7-25 [facility] Comment on above: Performed By: #### 0 0071 #### [facility] [address] [facility] [place] [address], [facility] CBC W/DIFFon 07-13-2018 ABS BASOPHILS 0.0 10*3/uL Normal 0.0-0.2 [facility] Comment on above: Performed By: #### 5 3 #### [facility] [address] [place] [address], [facility] ABS IMM GRANS 0.0 10*3/uL Normal 0.0-0.2 [facility] Comment on above: Performed By: #### 5 0103 #### [facility] [address] [place] [address], [facility] ABS NEUTROPHILS 9.8 10*3/uL High 1.6-7.6 [facility] Comment on above: Performed By: #### 5 0103 #### [facility] [address] [place] [address], [facility] Basophils/100 WBC (Bld) 0.4 % Normal 0.0-1.0 [facility] Comment on above: Performed By: #### 5 0103 #### [facility] [address] [place] [address], [facility] Eosinophils (Bld) [#/Vol] 0.1 10*3/uL Normal 0.0-0.5 [facility] Comment on above: Performed By: #### 5 0103 #### [facility] [address] [place] [address], [facility] Eosinophils/100 WBC (Bld) 0.5 % Normal 0.0-6.0 [facility] Comment on above: Performed By: #### 5 3 #### [facility] [address] [place] [address], [facility] Erythrocyte distribution width (RBC) [Ratio] 12.2 % Normal 11.5-15.0 [facility] Comment on above: Performed By: #### 5 3 #### [facility] [address] [place] [address], [facility] Hematocrit (Bld) [Volume fraction] 34.8 % Low 39.0-50.0 [facility] Comment on above: Performed By: #### 5 0103 #### [facility] [address] [facility] [place] [address], [facility] Hemoglobin (Bld) [Mass/Vol] 12.1 g/dL Low 13.0-17.0 [facility] Comment on above: Performed By: #### 5 3 #### [facility] [address] IMMATURE GRANS 0.4 % Normal 0.0-1.0 [facility] Comment on above: Performed By: #### 5 0103 #### [facility] [address] [place] [address], [facility] Lymphocytes (Bld) [#/Vol] 0.6 10*3/uL Low 1.2-4.0 [facility] Comment on above: Performed By: #### 5 0103 #### [facility] [address] [place] [address], [facility] Lymphocytes/100 WBC (Bld) 5.4 % Low 20.0-45.0 [facility] Comment on above: Performed By: #### 5 0103 #### [facility] [address] [place] [address], [facility] MCH (RBC) [Entitic mass] 31.1 pg Normal 27.0-33.0 [facility] Comment on above: Performed By: #### 5 0103 #### [facility] [address] MCHC (RBC) [Mass/Vol] 34.8 g/dL Normal 32.0-35.0 [facility] Comment on above: Performed By: #### 5 0103 #### [facility] [address] [place] [address], [facility] MCV (RBC) [Entitic vol] 89.5 fL Normal 82.0-98.0 [facility] Comment on above: Performed By: #### 5 0103 #### [facility] [address] [place] [address], [facility] Monocytes (Bld) [#/Vol] 0.5 10*3/uL Normal 0.1-1.0 [facility] Comment on above: Performed By: #### 5 0103 #### [facility] [address] [place] [address], [facility] MONOS 4.3 % Low 5.0-12.0 [facility] Comment on above: Performed By: #### 5 0103 #### [facility] [address] [place] [id number], [facility] Neutrophils/100 WBC (Bld) 89.0 % High 40.0-72.0 [facility] Comment on above: Performed By: #### 5 0103 #### [facility] [address] [place] [address], [facility] Nucleated RBC/100 WBC (Bld) [Ratio] 0 % Normal 0-0 [facility] Comment on above: Performed By: #### 5 0103 #### [facility] [address] [place] [address], [facility] PLAT CNT 177 10*3/uL Normal 150-400 [facility] Comment on above: Performed By: #### 5 0103 #### [facility] [address] [place] [address], [facility] RBC (Bld) [#/Vol] 3.89 10*6/uL Low 4.20-5.70 [facility] Comment on above: Performed By: #### 5 0103 #### [facility] [address] [facility] [place] [address], [facility] WBC (Bld) [#/Vol] 11.04 10*3/uL High 4.00-10.60 [facility] Comment on above: Performed By: #### 5 0103 #### [facility] [address] [place] [address], [facility] FEMUR RIGHT 2 VWSon 07-13-20 18 FEMUR RIGHT 2 VWS [facility] Department of Radiology [address] [place] [id number] ======== Patient Name: ZACH MANUEL : 1945 Sex: M Age: Race: White Pt. Location: [id number] Patient Status: I Ordered Date: 07/13/2018 7:00:00 AM Completed Date: 07/13/2018 01:57 PM Requesting Provider: DANIELA ANTONY Attending Provider: DANIELA ANTOYN Report Copy To: Signs & Symptoms: RT [...] Documentation Electronically signed by:Soila Morris. Transcribed by: [email or web address], User Resident: Electronically Signed by: SOILA MORRIS @ 07/15/2018 12:16 PM Normal [facility] Comment on above: Order Comment: RT FE MUR IM NAIL FEMUR RIGHT 2 S [facility] Department of Radiology [address] [place] [id number] ======== Patient Name: ZACH MANUEL : [...] findings. Electronically signed by:Zoran Cobb. Transcribed by: [email or web address], User Resident: RENAN SEWELL Electronically Signed by: ZORAN COBB @ 07/13/2018 06:51 PM I personally read this/these film(s) with this resident Normal [facility] Comment on above: Order Comment: R/O F X, right knee History and Physicalon 07-13 History and Physical MR#: [id number] [facility] Pt. Name: Zach Manuel Admitted: 07/13/2018 Date of : 1945 Attending Physician: Natalie Barajas M.D. Room #: [id number] Discharge Date: HISTORY AND PHYSICAL CHIEF COMPLAINT: Fall, right hip fracture. HISTORY OF PRESENT ILLNESS: The patient is a 73-year-old gentleman with past medical history of diabetes, multiple myeloma that was treated and now under surveillance, Paget's disease and ulcerative colitis, presented to the ER as a transfer from [facility]. Orthopedist service accepted the patient for treatment of right hip fracture. The patient reports that today approximately 6 hours prior to arrival to [facility] ER, he was accidentally hit by his [...] We will provide DVT and GI prophylaxis. Line Builder for possible rehab placement and PT and OT once the patient will have surgery. Electronically Signed by: Natalie Barajas M.D. 07/14/2018 12:41 A Natalie Barajas M.D. Date Dict: 07/13/2018/01:20 A/Natalie Barajas M.D. Date Trans: 07/13/2018 06:08 A/maryo [id number] Normal [facility] Operative Reporton 8 Operative Report MR#: [id number] I [facility] Pt. Name: Zach Manuel Room #: [id number] Discharge Date: Birthdate: 1945 OPERATIVE REPORT DATE OF SURGERY: 07/13/2018 SURGEON: Daniela Antnoy M.D. SENIOR [employer] SYSTEMS PROGRAMMER: Rob Gomez M.D. PREOPERATIVE DIAGNOSIS: Right subtrochanteric [...] The distal interlocking screws, we used perfect council technique. The guide pin was placed under [...] Gomez MD Date Trans: 07/13/2018 09:17 P/tata [id number] cc: Hanna Mathias M.D. [address] [id number] Normal [facility] POC GLUCOSE LABon 07-13-2018 Glucose [Mass/Vol] 249 mg/dL High 70-100 [facility] Comment on above: Performed By: #### 8 5499 #### [facility] [address] [facility] [place] [address], [place] Glucose [Mass/Vol] 226 mg/dL High 70-100 [facility] Comment on above: Performed By: #### 8 5499 #### [facility] [address] [facility] [place] [address], [place] Glucose [Mass/Vol] 144 mg/dL High 70-100 [facility] Comment on above: Performed By: #### 8 5499 #### [facility] [address] [facility] [place] [address], [place] Glucose [Mass/Vol] 130 mg/dL High 70-100 [facility] Comment on above: Performed By: #### 8 5499 #### [facility] [address] [facility] PROTHROMBIN TIMEon 8 INR Coag (PPP) [Relative time] 1.01 {INR} Normal 0.91-1.16 [facility] Comment on above: Result Comment: ACCC P [...] CHEST 1995;108:[id number]. Performed By: #### 5 6101, 19486 #### [facility] [address] [facility] [place] [address], [facility] PT Coag (PPP) [Time] 13.3 s Normal 12.3-14.8 [facility] Comment on above: Result Comment: ALL RESULTS MUST BE INTERPRETED WITH RESPECT TO BLOOD DRAWING ARTIFACT OR DILUTION ERROR OF ANTICOAGULANT AT THE TIME OF SAMPLING. Performed By: #### 5 6101, [id number] #### [facility] [address] [facility] [place] [address], [facility] TYPE AND SCREENon 07-13-2018 ABO INTERPRETATION O Normal [facility] Comment on above: Performed By: #### 6 2586 #### [facility] [address] [place] [address], [place] RH INTERPRETATION Positive Normal [facility] Comment on above: Performed By: #### 6 2586 #### [facility] [address] [place] [address], [place] RBC'S 2 UNITSon 07-12-2018 CROSSMATCH INTERP 1 COMP Normal [facility] Comment on above: Performed By: #### 8 6002 #### [facility] [address] [place] [address], [place] CROSSMATCH INTERP 2 COMP Normal [facility] Comment on above: Performed By: #### 8 6002 #### [facility] [address] [place] [address], [place] PRODUCT CODE 1 E0336 Normal [facility] Comment on above: Performed By: #### 8 6002 #### [facility] [address] [place] [address], [place] PRODUCT CODE 2 E0336 Normal [facility] Comment on above: Performed By: #### 8 6002 #### [facility] [address] [place] [address], [place] PRODUCT STATUS 1 RE Normal [facility] Comment on above: Result Comment: Resu lt changed by IF on 07/16/2018 09:30. The previous value was XM. Performed By: #### 8 6002 #### [facility] [address] [place] [address], [place] PRODUCT STATUS 2 RE Normal [facility] Comment on above: Result Comment: Resu lt changed by IF on 07/16/2018 09:30. The previous value was XM. Performed By: #### 8 6002 #### [facility] [address] [place] [address], [place] UNIT ABO 1 O Normal [facility] Comment on above: Performed By: #### 8 6002 #### [facility] [address] [place] [address], [facility] UNIT ABO 2 O Normal [facility] Comment on above: Performed By: #### 8 6002 #### [facility] [address] [place] [address], [facility] UNIT ID 1 [id number] Normal [facility] Comment on above: Performed By: #### 8 6002 #### [facility] [address] [place] [address], [facility] UNIT ID 2 [id number] Normal [facility] Comment on above: Performed By: #### 8 6002 #### [facility] [address] [place] [address], [facility] UNIT RH 1 Positive Normal [facility] Comment on above: Performed By: #### 8 6002 #### [facility] [address] [place] [address], [facility] UNIT RH 2 Positive Normal [facility] Comment on above: Performed By: #### 8 6002 #### [facility] [address] [place] [address], [facility] Vital Signs Date Time Vital Sign Value Performing Clinician Facility 02-17-2025 11:04040 Body height 175.3 cm Uriel Gunter MD Work Phone: [facility] 02-17-2025 11:04-040 Body mass index (BMI) [Ratio] 27.01 kg/m2 Uriel Gunter MD Work Phone: [facility] 02-17-2025 11:04-040 Body temperature 97.2 [degF] Uriel Gunter MD Work Phone: [facility] 02-17-2025 11:04-040 Body weight 83 kg Uriel Gunter MD Work Phone: [facility] 02-17-2025 11:04-0400 Diastolic blood pressure 73 mm[Hg] Uriel Gunter MD Work Phone: [facility] 02-17-2025 11:04-0400 Heart rate 70 /min Uriel Gunter MD Work Phone: [facility] 02-17-2025 11:04-0400 Respiratory rate 16 /min Uriel Gunter MD Work Phone: [facility] 02-17-2025 11:04-0400 SaO2% (BldA) [Mass fraction] 96 % Uriel Gunter MD Work Phone: [facility] 02-17-2025 11:04-0400 Systolic blood pressure 129 mm[Hg] Uriel Gunter MD Work Phone: [facility] 10-09-2024 09:59-0500 Body height 175.3 cm [facility] 2 [facility] 10-09-2024 09:59-0500 Body mass index (BMI) [Ratio] 26.58 kg/m2 Pm 2 [facility] 10-09-2024 09:59-0500 Body weight 81.65 kg [facility] 2 [facility] 05-27-2024 12:53-0400 Body height 175.3 cm Latrice Alexandrea PA-C Work Phone: [facility] 05-27-2024 12:53-0400 Body mass index (BMI) [Ratio] 27.73 kg/m2 Latrice Alexandrea PA-C Work Phone: [facility] 05-27-2024 12:53-0400 Body temperature 97.9 [degF] Latrice Alexandrea PA-C Work Phone: [facility] 05-27-2024 12:53-0400 Body weight 85.2 kg Latrice Alexandrea PA-C Work Phone: [facility] 05-27-2024 12:53-0400 Diastolic blood pressure 65 mm[Hg] Latrice Alexandrea PA-C Work Phone: [facility] 05-27-2024 12:53-0400 Heart rate 63 /min Latrice Alexandrea PA-C Work Phone: [facility] 05-27-2024 12:53-0400 Respiratory rate 16 /min Latrice Alexandrea PA-C Work Phone: [facility] 05-27-2024 12:53-0400 SaO2% (BldA) [Mass fraction] 98 % Latrice Alexandrea PA-C Work Phone: [facility] 05-27-2024 12:53-0400 Systolic blood pressure 117 mm[Hg] Latrice Alexandrea PA-C Work Phone: [facility] 02-26-2024 12:53-0400 Body height 175.3 cm Uriel Gunter MD Work Phone: [facility] 02-26-2024 12:53-0400 Body mass index (BMI) [Ratio] 27.43 kg/m2 Uriel Gunter MD Work Phone: [facility] 02-26-2024 12:53-0400 Body temperature 97.59 [degF] Uriel Gunter MD Work Phone: [facility] 02-26-2024 12:53-0400 Body weight 84.3 kg Uriel Gunter MD Work Phone: [facility] 02-26-2024 12:53-0400 Diastolic blood pressure 68 mm[Hg] Uriel Gunter MD Work Phone: [facility] 02-26-2024 12:53-0400 Heart rate 59 /min Uriel Gunter MD Work Phone: [facility] 02-26-2024 12:53-0400 Respiratory rate 18 /min Uriel Gunter MD Work Phone: [facility] 02-26-2024 12:53-0400 SaO2% (BldA) [Mass fraction] 97 % Uriel Gunter MD Work Phone: [facility] 02-26-2024 12:53-0400 Systolic blood pressure 126 mm[Hg] Uriel Gunter MD Work Phone: [facility] 11-27-2023 13:02-0500 Body height 175.[address] KINDERGARTNER.FINANCIAL MANAGEMENT ANALYST Work Phone: [facility] 11-27-2023 13:02-0500 Body temperature 97.9 [degF] Becca Lane KINDERGARTNER.FINANCIAL MANAGEMENT ANALYST Work Phone: [facility] 11-27-2023 13:02-0500 Body weight 87.[address] KINDERGARTNER.FINANCIAL MANAGEMENT ANALYST Work Phone: [facility] 11-27-2023 13:02-0500 Diastolic blood pressure 51 mm[Hg] Becca Lane KINDERGARTNER.FINANCIAL MANAGEMENT ANALYST Work Phone: [facility] 11-27-2023 13:02-0500 Heart rate 65 /min Becca aLne KINDERGARTNER.FINANCIAL MANAGEMENT ANALYST Work Phone: [facility] 11-27-2023 13:02-0500 Respiratory rate 18 /min Becca [address] KINDERGARTNER.FINANCIAL MANAGEMENT ANALYST Work Phone: [facility] 11-27-2023 13:02-0500 SaO2% (BldA) [Mass fraction] 97 % [address]cca [address] KINDERGARTNER.FINANCIAL MANAGEMENT ANALYST Work Phone: [facility] 11-27-2023 13:02-0500 Systolic blood pressure 154 mm[Hg] Becca Lane KINDERGARTNER.FINANCIAL MANAGEMENT ANALYST Work Phone: [facility] 08-28-2023 13:08-0500 Body height 175.3 cm Uriel Gunter MD Work Phone: [facility] 08-28-2023 13:08-0500 Body temperature 97.2 [degF] Uriel Gunter MD Work Phone: [facility] 08-28-2023 13:08-0500 Body weight 86.27 kg Uriel Gunter MD Work Phone: [facility] 08-28-2023 13:08-0500 Diastolic blood pressure 68 mm[Hg] Uriel Gunter MD Work Phone: [facility] 08-28-2023 13:08-0500 Heart rate 62 /min Uriel Gunter MD Work Phone: [facility] 08-28-2023 13:08-0500 Respiratory rate 20 /min Uriel Gunter MD Work Phone: [facility] 08-28-2023 13:08-0500 SaO2% (BldA) [Mass fraction] 98 % Uriel Gunter MD Work Phone: [facility] 08-28-2023 13:08-0500 Systolic blood pressure 119 mm[Hg] Uriel Gunter MD Work Phone: [facility] 05-29-2023 12:40-0400 Body height 175.3 cm Uriel Gunter MD Work Phone: [facility] 05-29-2023 12:40-0400 Body temperature 97.2 [degF] Uriel Gunter MD Work Phone: [facility] 05-29-2023 12:40-0400 Body weight 87.45 kg Uriel Gunter MD Work Phone: [facility] 05-29-2023 12:40-0400 Diastolic blood pressure 49 mm[Hg] Uriel Gunter MD Work Phone: [facility] 05-29-2023 12:40-0400 Heart rate 56 /min Uriel Gunter MD Work Phone: [facility] 05-29-2023 12:40-0400 Respiratory rate 16 /min Uriel Gunter MD Work Phone: [facility] 05-29-2023 12:40-0400 SaO2% (BldA) [Mass fraction] 98 % Uriel Gunter MD Work Phone: [facility] 05-29-2023 12:40-0400 Systolic blood pressure 136 mm[Hg] Uriel Gunter MD Work Phone: [facility] 12-05-2022 13:00-0400 Body height 175.3 cm Uriel Gunter MD Work Phone: [facility] 12-05-2022 13:00-0400 Body temperature 97.11 [degF] Uriel Gunter MD Work Phone: [facility] 12-05-2022 13:00-0400 Body weight 85.55 kg Uriel Gunter MD Work Phone: [facility] 12-05-2022 13:00-0400 Diastolic blood pressure 58 mm[Hg] Uriel Gunter MD Work Phone: [facility] 12-05-2022 13:00-0400 Heart rate 60 /min Uriel Gunter MD Work Phone: [facility] 12-05-2022 13:00-0400 Respiratory rate 18 /min Uriel Gunter MD Work Phone: [facility] 12-05-2022 13:00-0400 SaO2% (BldA) [Mass fraction] 97 % Uriel Gunter MD Work Phone: [facility] 12-05-2022 13:00-0400 Systolic blood pressure 135 mm[Hg] Uriel Gunter MD Work Phone: [facility] 09-12-2022 15:00-0500 Body height 175.3 cm Uriel Gunter MD Work Phone: [facility] 09-12-2022 15:00-0500 Body temperature 97.59 [degF] Uriel Gunter MD Work Phone: [facility] 09-12-2022 15:00-0500 Body weight 87.82 kg Uriel Gunter MD Work Phone: [facility] 09-12-2022 15:00-0500 Diastolic blood pressure 53 mm[Hg] Uriel Gunter MD Work Phone: [facility] 09-12-2022 15:00-0500 Heart rate 67 /min Uriel Gunter MD Work Phone: [facility] 09-12-2022 15:00-0500 Respiratory rate 18 /min Uriel Gunter MD Work Phone: [facility] 09-12-2022 15:00-0500 SaO2% (BldA) [Mass fraction] 97 % Uriel Gunter MD Work Phone: [facility] 09-12-2022 15:00-0500 Systolic blood pressure 123 mm[Hg] Uriel Gunter MD Work Phone: [facility] 06-20-2022 12:37-0400 Body height 175.[address] KINDERGARTNER.FINANCIAL MANAGEMENT ANALYST Work Phone: [facility] 06-20-2022 12:37-0400 Body temperature 97.11 [degF] Becca Lane KINDERGARTNER.FINANCIAL MANAGEMENT ANALYST Work Phone: [facility] 06-20-2022 12:37-0400 Body weight 89.[address] KINDERGARTNER.FINANCIAL MANAGEMENT ANALYST Work Phone: [facility] 06-20-2022 12:37-0400 Diastolic blood pressure 52 mm[Hg] Becca Lane KINDERGARTNER.FINANCIAL MANAGEMENT ANALYST Work Phone: [facility] 06-20-2022 12:37-0400 Heart rate 79 /min Becca Lane KINDERGARTNER.FINANCIAL MANAGEMENT ANALYST Work Phone: [facility] 06-20-2022 12:37-0400 Respiratory rate 16 /min Becca Lane KINDERGARTNER.FINANCIAL MANAGEMENT ANALYST Work Phone: [facility] 06-20-2022 12:37-0400 SaO2% (BldA) [Mass fraction] 97 % Becca [address] KINDERGARTNER.FINANCIAL MANAGEMENT ANALYST Work Phone: [facility] 06-20-2022 12:37-0400 Systolic blood pressure 152 mm[Hg] Becca Lane KINDERGARTNER.FINANCIAL MANAGEMENT ANALYST Work Phone: [facility] 03-21-2022 12:49-0400 Body height 175.3 cm Uriel Gunter MD Work Phone: [facility] 03-21-2022 12:49-0400 Body temperature 97 [degF] Uriel Gunter MD Work Phone: [facility] 03-21-2022 12:49-0400 Body weight 88.81 kg Uriel Gunter MD Work Phone: [facility] 03-21-2022 12:49-0400 Diastolic blood pressure 54 mm[Hg] Uriel Gunter MD Work Phone: [facility] 03-21-2022 12:49-0400 Heart rate 65 /min Uriel Gunter MD Work Phone: [facility] 03-21-2022 12:49-0400 Respiratory rate 16 /min Uriel Gunter MD Work Phone: [facility] 03-21-2022 12:49-0400 SaO2% (BldA) [Mass fraction] 100 % Uriel Gunter MD Work Phone: [facility] 03-21-2022 12:49-0400 Systolic blood pressure 138 mm[Hg] Uriel Gunter MD Work Phone: [facility] 01-24-2022 12:42-0400 Body height 175.3 cm Uriel Gunter MD Work Phone: [facility] 01-24-2022 12:42-0400 Body temperature 98.01 [degF] Uriel Gunter MD Work Phone: [facility] 01-24-2022 12:42-0400 Body weight 88.91 kg Uriel Gunter MD Work Phone: [facility] 01-24-2022 12:42-0400 Diastolic blood pressure 50 mm[Hg] Uriel Gunter MD Work Phone: [facility] 01-24-2022 12:42-0400 Heart rate 64 /min Uriel Gunter MD Work Phone: [facility] 01-24-2022 12:42-0400 Respiratory rate 18 /min Uriel Gunter MD Work Phone: [facility] 01-24-2022 12:42-0400 SaO2% (BldA) [Mass fraction] 98 % Uriel Gunter MD Work Phone: [facility] 01-24-2022 12:42-0400 Systolic blood pressure 136 mm[Hg] Uriel Gunter MD Work Phone: [facility] Encounters Encounter Date Encounter Type Care Provider Facility Start: 02-27-2025 End: 02-27-2025 Refill Uriel Gunter MD Work Phone: [facility] Comment on above: Refill Request Start: 02-19-2025 End: 02-19-2025 Follow-up encounter Uriel Gunter MD Work Phone: Hematology/Oncology Comment on above: Results Start: 02-17-2025 End: 02-17-2025 Patient encounter procedure Uriel Gunter MD Work Phone: Hematology/Oncology Start: 02-17-2025 End: 02-17-2025 ambulatory Chair [facility] Work Phone: Hematology/Oncology Comment on above: Multiple myeloma not having achieved remission (HCC) (Primary Dx); Paget disease of bone Multiple myeloma not having achieved remission (HCC) (Primary Dx); Paget disease of bone; H/O ulcerative colitis; Stage 3b chronic kidney disease (HCC) Start: 12-11-2024 End: 12-11-2024 Refill Porsche Adame [facility] Work Phone: [facility] Comment on above: Refill Request Start: 11-20-2024 End: 11-20-2024 Evaluation and management of inpatient MARY ZARATE [facility] Start: 11-20-2024 End: 11-20-2024 Evaluation and management of inpatient BERNARDO STAPLETON [facility] Start: 11-19-2024 End: 11-19-2024 ambulatory [facility] Pat Phone Call Provider 1 [facility] - Pre Admit Start: 11-19-2024 End: 11-19-2024 ambulatory BERNARDO Rachel STAPLETON [facility] Start: 11-17-2024 End: 11-17-2024 Refill Uriel Gunter MD Work Phone: [facility] Comment on above: Refill Request Start: 10-30-2024 End: 10-30-2024 Evaluation and management of inpatient EDGAR JUSTICE [facility] Start: 10-30-2024 End: 10-30-2024 Evaluation and management of inpatient BERNARDO STAPLETON [facility] Start: 10-10-2024 End: 10-10-2024 Refill Ainsley Kemar [facility] Work Phone: [facility] Comment on above: Refill Request Start: 10-09-2024 End: 10-09-2024 ambulatory MARY ZARATE [facility] Start: 10-09-2024 Encounter for other preprocedural examination HANNA MATHIAS [facility] Start: 10-09-2024 End: 10-09-2024 Patient encounter procedure [facility] Pre-Admission Testing 2 [facility] - Pre Admit Comment on above: Preop examination (P rimary Dx) Start: 10-09-2024 End: 10-09-2024 Preprocedural examination done [facility] 2 [facility] Start: 09-11-2024 End: 09-11-2024 Refill Uriel Gunter MD Work Phone: [facility] Comment on above: Refill Request Start: 08-11-2024 End: 08-11-2024 Refill Uriel Gunter MD Work Phone: [facility] Comment on above: Refill Request Start: 07-25-2024 End: 07-25-2024 ambulatory Ainsley YoungerNamkristi [facility] Work Phone: [facility] Start: 07-25-2024 End: 07-25-2024 E-mail encounter from caregiver Ainsley Woodson [facility] Work Phone: [facility] -[facility] Start: 06-30-2024 End: 06-30-2024 Refill Uriel Gunter MD Work Phone: [facility] Comment on above: Refill Request Start: 06-04-2024 End: 06-04-2024 Refill Uriel Gunter MD Work Phone: [facility] Comment on above: Refill Request Start: 05-29-2024 End: 05-29-2024 Telephone encounter Juan Ferguson RN Work Phone: Hematology/Oncology Comment on above: Care Coordination (L ab Results) Start: 05-27-2024 End: 05-27-2024 Telephone encounter Latrice MAHAJAN-[employer] Work Phone: Hematology/Oncology Comment on above: Results Start: 05-27-2024 End: 05-27-2024 Office outpatient visit 15 minutes Latrice MAHAJAN-[employer] Work Phone: Hematology/Oncology Comment on above: Multiple myeloma not having achieved remission (HCC) (Primary Dx); Type 2 diabetes mellitus without complication, with long-term current use of insulin (HCC) Start: 05-27-2024 End: 05-27-2024 ambulatory [facility] Facility:[facility] Start: 05-20-2024 End: 05-20-2024 Telephone encounter Latrice MAHAJAN-[employer] Work Phone: Hematology/Oncology Comment on above: Lab Orders Start: 05-09-2024 Refill Ainsley Griffin humaira [facility] Work Phone: [facility] Comment on above: Refill Request Start: 04-08-2024 Refill Uriel Gunter MD Work Phone: [facility] Comment on above: Refill Request Start: 03-06-2024 Refill Uriel Gunter MD Work Phone: [facility] Comment on above: Refill Request [...] (PSA) Start: 02-06-2024 Refill Ainsley YoungerNamsaida tobias [facility] Work Phone: [facility] Comment on above: Refill Request (revl imid) Start: 01-28-2024 Refill Porscheceline Adame [facility] Work Phone: [facility] Comment on above: Refill Request Start: 01-08-2024 Refill Uriel Gunter MD Work Phone: [facility] Comment on above: Refill Request Start: 12-10-2023 Refill Porsche Bonnerrow [facility] Work Phone: [facility] Comment on above: Refill Request Start: 11-27-2023 End: 11-27-[address] APRN.FINANCIAL MANAGEMENT ANALYST Work Phone: Hematology/Oncology Comment on above: Multiple myeloma not having achieved remission (HCC) (Primary Dx); Paget disease of bone; Type 2 diabetes mellitus without complication, with long-term current use of insulin (HCC); H/O ulcerative colitis; Elevated prostate specific antigen (PSA); Stage 3b chronic kidney disease (HCC) Start: 11-27-2023 End: 11-27-2023 Patient encounter procedure [address]cca [address] APRN.FINANCIAL MANAGEMENT ANALYST Work Phone: [facility] Start: 11-23-2023 Telephone encounter Uriel mcdaniels MD Work Phone: Hematology/Oncology Comment on above: Lab Orders Start: 11-15-2023 Refill Aiden Hatfield MD Work Phone: [facility] Comment on above: Refill Request Start: 08-28-2023 End: 08-28-2023 ambulatory Chair Molly EllingtonMarleni Work Phone: Hematology/Oncology Comment on above: Multiple [...] encounter procedure Uriel Gunter MD Work Phone: [facility] Start: 08-20-2023 Refill Uriel Gunter MD Work Phone: [facility] Comment on above: Refill Request Start: 07-18-2023 Refill Ainsley YoungerDelisa collado [facility] Work Phone: [facility] Comment on above: Refill Request [...] encounter procedure Uriel Gunter MD Work Phone: [facility] Start: 04-18-2023 Refill Aiden Hatfield MD Work Phone: [facility] Comment on above: Refill Request Start: 02-27-2023 Telephone encounter Uriel mcdaniels MD Work Phone: Hematology/Oncology Comment on above: Lab Orders Start: 02-05-2023 Refill Porsche Adame [facility] Work Phone: [facility] Comment on above: Refill Request Start: 12-28-2022 Refill Ainsley Griffin ick [facility] Work Phone: [facility] Comment on above: Refill Request Start: 12-19-2022 Refill Ainsley Griffin ick [facility] Work Phone: [facility] Comment on above: Refill Request Start: 12-05-2022 End: 12-05-[address] Work Phone: Hematology/Oncology Comment on above: Multiple myeloma, re mission status unspecified (HCC) (Primary Dx) Multiple myeloma not having achieved remission (HCC) (Primary Dx); Paget disease of bone; Type 2 diabetes mellitus without complication, with long-term current use of insulin (HCC); Elevated prostate specific antigen (PSA) Start: 12-05-2022 End: 12-05-2022 Patient encounter procedure Uriel Gunter MD Work Phone: [facility] Start: 11-27-2022 Telephone encounter Uriel mcdaniels MD Work Phone: Hematology/Oncology Comment on above: Lab Orders Start: 11-16-2022 Refill Porsche Aadme [facility] Work Phone: [facility] Comment on above: Refill Request Start: 10-16-2022 Refill Ainsley Griffin ick [facility] Work Phone: [facility] Comment on above: Refill Request Start: 09-21-2022 Refill Ainsley YoungerKitr ick [facility] Work Phone: Hematology/Oncology Comment on above: Refill [...] MARLENI Start: 08-28-2022 End: 08-29-[address] HANNA MATHIAS Facility: Start: 08-11-2022 Refill Ainsley Griffin ick [facility] Work Phone: Hematology/Oncology Comment on above: Refill [...] End: 06-20-2022 Patient encounter procedure Becca [address] APRN.[facility] Work Phone: [facility] Start: 06-16-2022 Refill Porsche Wendi [facility] Work Phone: [facility] Comment on above: Refill Request Start: 06-15-2022 Telephone encounter Uriel mcdaniels MD Work Phone: Hematology/Oncology Comment on above: Lab Orders Start: 05-19-2022 Refill Ainsley YuongerKitsaida ick [facility] Work Phone: Hematology/Oncology Comment on above: Refill Request Start: 04-20-2022 Refill Quita Antoine [facility] Work Phone: [facility] Comment on above: Refill Request Start: 2022 Refill Quita Antoine [facility] Work Phone: [facility] Comment on above: Refill Request (ansley lidomide) Material 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.] encounter procedure Uriel Gunter MD Work Phone: [facility] Start: 01-02-2022 Refill Porsche Adame [facility] Work Phone: [facility] Comment on above: Refill Request Start: 12-20-2021 End: 12-21-[address] ROXANA LEWIS Facility:[facility] Start: 11-10-2021 End: 11-11-[address] ROXANA LEWIS Facility:[facility] Start: 09-12-2021 End: 09-12-[address] HANNA MATHIAS Facility:[facility] Start: 09-10-2021 End: 09-11-[address] HANNA MATHIAS Facility:[facility] Start: 07-13-2018 End: 07-16-2018 Evaluation and management of inpatient HANNA MATHIAS Facility:[facility] Procedures Date Procedure Procedure Detail Performing Clinician Start: 03-21-2022 Adult depression scr eening assessment Uriel Gunter MD Work Phone: Start: 03-14-[address] ROLA MATHIAS Comment on above: Performed By: #### P SASC #### [facility] [address] [place] [address] Dr. Tigre Gant Start: 11-10-[address] ROLA MATHIAS Comment on above: Performed By: #### P SAD #### [facility] [address] [address] [address] Tigre Gant Start: 08-16-2021 Adult depression scr eening assessment Porsche Adame [facility] Work Phone: Start: 07-16-2018 REPOSITION R UP FEMU R WITH INTRAMED FIX, PERC APPROACH DANIELA ANTONY Start: 07-13-2018 INTRODUCTION OF SERUM/TOX/VACCINE INTO MUSCLE, PERC APPROACH FRANCIS SAVAGE Start: 07-13-2018 Antibody screen HANNA MATHIAS Comment on above: Performed By: #### 6 [id number] #### [address] Plan of Treatment Date Care Activity Detail Author Start: 02-17-2026 Complete blood count Hemoglobin/Shaheen tocrit [facility] Start: 02-17-2026 Creatinine measurement Serum Creatin ine [facility] Start: 11-20-2025 Tobacco Screening Tobacco Screening [facility] Start: 10-09-2025 Tobacco Screening Tobacco Screening [facility] Start: 08-18-2025 End: 08-18-2025 Follow-up encounter Hematology/Oncology Comment on above: 6 month follow up [facility] Start: 08-18-2025 End: 08-18-2025 Patient encounter procedure 08/18/2025 10:15 AM EST Office Visit [facility] [address] [place] [address] [place] [address] 6 month follow up with lab [facility] Comment on above: 6 month follow up [facility] Start: 05-27-2025 Complete blood count Hemoglobin/Shaheen tocrit [facility] Start: 05-27-2025 Creatinine measurement Serum Creatin ine [facility] Start: 05-25-2025 Influenza vaccination Influenz a Vaccine (Season Ended) [facility] Start: 02-25-2025 Complete blood count Hemoglobin/Shaheen [facility] Start: 02-25-2025 Creatinine measurement Serum Creatin ine [facility] Start: 02-17-2025 End: 05-19-2025 MONOCLONAL PROTEIN, SERUM (BLOOD) [facility] Comment on above: Expected: 02/17/2025 , Expires: 05/19/2025 Start: 02-17-2025 End: 05-19-2025 PROT ELECT SERUM WITH TOÑITO AND INTERP [facility] Work Phone: Comment on above: Expected: 02/17/2025 , Expires: 05/19/2025 Start: 01-03-2025 Covid-19 Vaccine (10 - Mixed Product risk season) Covid-19 Vaccine (10 - Mixed Product risk season) [facility] Start: 11-26-2024 Complete blood count Hemoglobin/Shaheen tocnyt [facility] Start: 11-26-2024 Creatinine measurement Serum Creatin ine [facility] Start: 11-20-2024 End: 11-20-2024 Admission to same day surgery center 11/20/2024 9:45 AM EST - 11/20/2024 10:30 AM EST Surgery [facility] [address] [place] [id number] Bernardo Stapleton MD [address] [place] [address] EXTRACTION CATARACT INTRAOCULAR LENS [64569 (CPT )] [facility] Comment on above: EXTRACTION CATARACT INTRAOCULAR LENS [12455 (CPT )] Start: 11-20-2024 Subsequent hospital visit by physician 11/20/2024 9:45 AM EST Hospital Encounter [facility] [address] [place] [id number] Bernardo Stapleton MD [address] [place] [address] [id number] [facility] Start: 11-20-2024 End: 11-20-2024 Xcapsl ctrc rmvl insj io lens prosth w/o ecp [facility] Start: 11-19-2024 End: 11-19-2024 ambulatory 11/19/2024 3:50 PM EST Support Visit [facility] - Pre Admit [address] [place] [id number] [facility] Pre Admit Start: 10-30-2024 End: 10-30-2024 Admission to same day surgery center 10/30/2024 9:45 AM EST - 10/30/2024 10:30 AM EST Surgery [facility] [address] [place] [address] Bernardo Stapleton MD [address] [place] [address] [phone] EXTRACTION CATARACT INTRAOCULAR LENS [46699 (CPT )] [facility] Comment on above: EXTRACTION CATARACT INTRAOCULAR LENS [20982 (CPT )] Start: 10-30-2024 Subsequent hospital visit by physician 10/30/2024 9:45 AM EST Hospital Encounter [facility] [address] [place] [address] Bernardo Stapleton MD [address] [place] [address] [facility] Start: 10-30-2024 End: 10-30-2024 Xcapsl ctrc rmvl insj io lens prosth w/o ecp EXTRACTION CATARACT INTRAOCULAR LENS cataract right eye 10/30/2024 9:45 AM EST [facility] Start: 09-24-2024 Advance Directive Discussion Advance Directive Discussion [facility] Start: 08-28-2024 Complete blood count Hemoglobin/Shaheen tocrit [facility] Start: 08-28-2024 Creatinine measurement Serum Creatin ine [facility] Start: 08-28-2024 Hemoglobin/Hematocrit Hemoglobin/Hem atocrit [facility] Start: 08-28-2024 Serum Creatinine Serum Creatinine Cl [facility] Start: 08-26-2024 End: 11-25-2024 CBC W Auto Differential panel - Blood COMPLETE BLOOD COUNT AND DIFFERENTIAL Lab Routine Multiple myeloma not having achieved remission (HCC) Expected: 08/26/2024 (Approximate), Expires: 11/25/2024 [facility] Comment on above: Expected: 08/26/2024 (Approximate), Expires: 11/25/2024 Start: 08-26-2024 End: 11-25-2024 Comprehensive metabolic 2000 panel - Serum or Plasma COMPREHENSIVE METABOLIC PANEL Lab Routine Multiple myeloma not having achieved remission (HCC) Expected: 08/26/2024 (Approximate), Expires: 11/25/2024 [facility] Work Phone: Comment on above: Expected: 08/26/2024 (Approximate), Expires: 11/25/2024 Start: 08-26-2024 End: 11-25-2024 KAPPA/DANIELS,FREE,SER KAPPA/DANIELS,FREE,SER Lab Routine Multiple myeloma not having achieved remission (HCC) Expected: 08/26/2024 (Approximate), Expires: 11/25/2024 [facility] Comment on above: Expected: 08/26/2024 (Approximate), Expires: 11/25/2024 Start: 08-26-2024 End: 11-25-2024 MONOCLONAL PROTEIN, SERUM (BLOOD) MONOCLONAL PROTEIN, SERUM (BLOOD) Lab Routine Multiple myeloma not having achieved remission (HCC) Expected: 08/26/2024 (Approximate), Expires: 11/25/2024 [facility] Comment on above: Expected: 08/26/2024 (Approximate), Expires: 11/25/2024 Start: 08-26-2024 End: 11-25-2024 PROTEIN ELECTROPHORESIS SERUM W/INTERP PROTEIN ELECTROPHORESIS SERUM W/INTERP Lab Routine Multiple myeloma not having achieved remission (HCC) Expected: 08/26/2024 (Approximate), Expires: 11/25/2024 [facility] Comment on above: Expected: 08/26/2024 (Approximate), Expires: 11/25/2024 Start: 08-26-2024 End: 08-26-2024 Follow-up encounter Hematology/Oncology Comment on above: 3 month follow up wi th lab and aredia Start: 08-26-2024 End: 08-26-2024 Patient encounter procedure [facility] Comment on above: 3 month follow up wi th lab and aredia Start: 05-29-2024 HEMOGLOBIN/HEMATOCRIT HEMOGLOBIN/HEM ATOCRIT [facility] Start: 05-29-2024 SERUM CREATININE SERUM CREATININE [facility] Start: 05-27-2024 End: 05-27-2024 Follow-up encounter Hematology/Oncology Comment on above: 3 month follow up wi th lab and aredia Start: 05-27-2024 End: 05-27-2024 Patient encounter procedure 05/27/2024 12:45 PM EDT Office Visit [facility] [address] [place] [address] [place] [address] 3 month follow up with lab and aredia [facility] Comment on above: 3 month follow up wi th lab and aredia Start: 05-25-2024 Covid-19 Vaccine ( season) Covid-19 Vaccine () [facility] Start: 05-25-2024 Covid-19 Vaccine () Covid-19 Vaccine () [facility] Start: 05-25-2024 Influenza vaccination [facility] Start: 05-20-2024 End: 08-19-2024 CBC W Auto Differential panel - Blood COMPLETE BLOOD COUNT AND DIFFERENTIAL Lab Routine Multiple myeloma not having achieved remission (HCC) Expected: 05/20/2024, Expires: 08/19/2024 [facility] Comment on above: Expected: 05/20/2024 , Expires: 08/19/2024 Start: 05-20-2024 End: 08-19-2024 Comprehensive metabolic 2000 panel - Serum or Plasma COMPREHENSIVE METABOLIC PANEL Lab Routine Multiple myeloma not having achieved remission (HCC) Expected: 05/20/2024, Expires: 08/19/2024 [facility] Work Phone: Comment on above: Expected: 05/20/2024 , Expires: 08/19/2024 Start: 05-20-2024 End: 08-19-2024 MONOCLONAL PROTEIN, SERUM (BLOOD) MONOCLONAL PROTEIN, SERUM (BLOOD) Lab Routine Multiple myeloma not having achieved remission (HCC) Expected: 05/20/2024, Expires: 08/19/2024 [facility] Comment on above: Expected: 05/20/2024 , Expires: 08/19/2024 Start: 05-20-2024 End: 08-19-2024 PROTEIN ELECTROPHORESIS SERUM W/INTERP PROTEIN ELECTROPHORESIS SERUM W/INTERP Lab Routine Multiple myeloma not having achieved remission (HCC) Expected: 05/20/2024, Expires: 08/19/2024 [facility] Comment on above: Expected: 05/20/2024 , Expires: 08/19/2024 Start: 03-06-2024 HEMOGLOBIN/HEMATOCRIT HEMOGLOBIN/HEM ATOCRIT [facility] Start: 03-06-2024 SERUM CREATININE SERUM CREATININE [facility] Start: 02-26-2024 End: 02-26-2024 Follow-up encounter Hematology/Oncology Comment on above: 3 month follow up wi th lab and aredia Start: 02-26-2024 End: 02-26-2024 Patient encounter procedure 02/26/2024 1:00 PM EDT Office Visit [facility] [address] [place] [address] [place] [address] 3 month follow up with lab and aredia [facility] Comment on above: 3 month follow [...] kidney disease (HCC) Expected: 01/02/2024, Expires: 04/02/2024 [facility] Work Phone: Comment on above: Expected: [...] kidney disease (HCC) Expected: 12/05/2023, Expires: 03/05/2024 [facility] Work Phone: Comment on above: Expected: [...] kidney disease (HCC) Expected: 12/05/2023, Expires: 03/05/2024 [facility] Work Phone: Comment on above: Expected: 12/05/2023 , Expires: 03/05/2024 Start: 12-05-2023 End: 03-05-2024 PROT ELECT SERUM WITH TOÑITO AND INTERP PROT ELECT SERUM WITH TOÑITO AND INTERP Lab Routine Multiple myeloma not having achieved remission (HCC) Expected: 12/05/2023, Expires: 03/05/2024 [facility] Work Phone: Comment on above: Expected: 12/05/2023 , Expires: 03/05/2024 Start: 11-26-2023 End: 02-25-2024 Basic metabolic 2000 panel - Serum or Plasma BASIC METABOLIC PNL Lab Routine Multiple myeloma not having achieved remission (HCC) Expected: 11/26/2023, Expires: 02/25/2024 [facility] Work Phone: Comment on above: Expected: 11/26/2023 , Expires: 02/25/2024 Start: 11-26-2023 End: 02-25-2024 CBC W Auto Differential panel - Blood CBC + DIFF Lab Routine Multiple myeloma not having achieved remission (HCC) Expected: 11/26/2023, Expires: 02/25/2024 [facility] Work Phone: Comment on above: Expected: 11/26/2023 , Expires: 02/25/2024 Start: 11-26-2023 End: 02-25-2024 MONOCLONAL PROTEIN, SERUM (BLOOD) MONOCLONAL PROTEIN, SERUM (BLOOD) Lab Routine Multiple myeloma not having achieved remission (HCC) Expected: 11/26/2023, Expires: 02/25/2024 [facility] Work Phone: Comment on above: Expected: 11/26/2023 , Expires: 02/25/2024 Start: 11-26-2023 End: 02-25-2024 PROT ELECT SERUM WITH TOÑITO AND INTERP PROT ELECT SERUM WITH TOÑITO AND INTERP Lab Routine Multiple myeloma not having achieved remission (HCC) Expected: 11/26/2023, Expires: 02/25/2024 [facility] Work Phone: Comment on above: Expected: 11/26/2023 , Expires: 02/25/2024 Start: 09-24-2023 Advance Directive Discussion Advance Directive Discussion [facility] Start: 09-24-2023 Behavioral Health Screening Behavioral Health Screening [facility] Start: 09-24-2023 Depression Assessment Depression Ass essment [facility] Start: 09-01-2023 Covid-19 Vaccine () Covid-19 Vaccine () [facility] Start: 08-28-2023 End: 11-27-2023 MONOCLONAL PROTEIN, SERUM (BLOOD) [facility] Work Phone: Comment on above: Expected: 08/28/2023 , Expires: 11/27/2023 Start: 08-28-2023 End: 11-27-2023 PROT ELECT SERUM WITH TOÑITO AND INTERP [facility] Work Phone: Comment on above: Expected: 08/28/2023 , Expires: 11/27/2023 Start: 05-25-2023 Covid-19 Vaccine () Covid-19 Vaccine () [facility] Start: 05-25-2023 Influenza vaccination [facility] Start: 03-21-2023 Adult depression screening assessment DEPRESSION SCREENING [facility] Start: 03-06-2023 End: 05-06-2023 CBC W Auto Differential panel - Blood CBC + DIFF Lab Routine Multiple myeloma not having achieved remission (HCC) Expected: 03/06/2023, Expires: 05/06/2023 [facility] Work Phone: Comment on above: Expected: 03/06/2023 , Expires: 05/06/2023 Start: 03-06-2023 End: 05-06-2023 Comprehensive metabolic 2000 panel - Serum or Plasma COMP METABOLIC PANEL Lab Routine Multiple myeloma not having achieved remission (HCC) Expected: 03/06/2023, Expires: 05/06/2023 [facility] Work Phone: Comment on above: Expected: 03/06/2023 , Expires: 05/06/2023 Start: 03-06-2023 End: 05-06-2023 MONOCLONAL PROTEIN, SERUM (BLOOD) MONOCLONAL PROTEIN, SERUM (BLOOD) Lab Routine Multiple myeloma not having achieved remission (HCC) Expected: 03/06/2023, Expires: 05/06/2023 [facility] Work Phone: Comment on above: Expected: 03/06/2023 , Expires: 05/06/2023 Start: 03-06-2023 End: 05-06-2023 PROT ELECT SERUM WITH TOÑITO AND INTERP PROT ELECT SERUM WITH TOÑITO AND INTERP Lab Routine Multiple myeloma not having achieved remission (HCC) Expected: 03/06/2023, Expires: 05/06/2023 [facility] Work Phone: Comment on above: Expected: 03/06/2023 , Expires: 05/06/2023 Start: 12-05-2022 End: 02-04-2023 CBC W Auto Differential panel - Blood CBC + DIFF Lab Routine Multiple myeloma not having achieved remission (HCC) Expected: 12/05/2022, Expires: 02/04/2023 [facility] Work Phone: Comment on above: Expected: 12/05/2022 , Expires: 02/04/2023 Start: 12-05-2022 End: 02-04-2023 Comprehensive metabolic 2000 panel - Serum or Plasma COMP METABOLIC PANEL Lab Routine Multiple myeloma not having achieved remission (HCC) Expected: 12/05/2022, Expires: 02/04/2023 [facility] Work Phone: Comment on above: Expected: 12/05/2022 , Expires: 02/04/2023 Start: 12-05-2022 End: 02-04-2023 MONOCLONAL PROTEIN, SERUM (BLOOD) MONOCLONAL PROTEIN, SERUM (BLOOD) Lab Routine Multiple myeloma not having achieved remission (HCC) Expected: 12/05/2022, Expires: 02/04/2023 [facility] Work Phone: Comment on above: Expected: 12/05/2022 , Expires: 02/04/2023 Start: 12-05-2022 End: 02-04-2023 PROT ELECT SERUM WITH TOÑITO AND INTERP PROT ELECT SERUM WITH TOÑITO AND INTERP Lab Routine Multiple myeloma not having achieved remission (HCC) Expected: 12/05/2022, Expires: 02/04/2023 [facility] Work Phone: Comment on above: Expected: 12/05/2022 , Expires: 02/04/2023 Start: 09-24-2022 ADVANCE DIRECTIVE DISCUSSION ADVANCE DIRECTIVE DISCUSSION [facility] Start: 09-24-2022 DEPRESSION ASSESSMENT DEPRESSION ASS ESSMENT [facility] Start: 09-12-2022 End: 11-12-2022 CBC W Auto Differential panel - Blood CBC + DIFF Lab Routine Multiple myeloma not having achieved remission (HCC) Paget disease of bone Type 2 diabetes mellitus without complication, with long-term current use of insulin (HCC) Elevated prostate specific antigen (PSA) Expected: 09/12/2022, Expires: 11/12/2022 [facility] Work Phone: Comment on above: Expected: 09/12/2022 , Expires: 11/12/2022 Start: 09-12-2022 End: 11-12-2022 Comprehensive metabolic 2000 panel - Serum or Plasma COMP METABOLIC PANEL Lab Routine Multiple myeloma not having achieved remission (HCC) Paget disease of bone Type 2 diabetes mellitus without complication, with long-term current use of insulin (HCC) Elevated prostate specific antigen (PSA) Expected: 09/12/2022, Expires: 11/12/2022 [facility] Work Phone: Comment on above: Expected: 09/12/2022 , Expires: 11/12/2022 Start: 09-12-2022 End: 11-12-2022 MONOCLONAL PROTEIN, SERUM (BLOOD) MONOCLONAL PROTEIN, SERUM (BLOOD) Lab Routine Multiple myeloma not having achieved remission (HCC) Paget disease of bone Type 2 diabetes mellitus without complication, with long-term current use of insulin (HCC) Elevated prostate specific antigen (PSA) Expected: 09/12/2022, Expires: 11/12/2022 [facility] Work Phone: Comment on above: Expected: [...] specific antigen (PSA) Expected: 09/12/2022, Expires: 11/12/2022 [facility] Work Phone: Comment on above: Expected: 09/12/2022 , Expires: 11/12/2022 Start: 08-16-2022 Adult depression screening assessment DEPRESSION SCREENING [facility] Start: 08-03-2022 COVID-19 VACCINE (7 - Mixed Product risk series) COVID-19 VACCINE (7 - Mixed Product risk series) [facility] Start: 06-16-2022 End: 08-16-2022 CBC W Auto Differential panel - Blood CBC + DIFF Lab Routine Multiple myeloma not having achieved remission (HCC) Expected: 06/16/2022, Expires: 08/16/2022 [facility] Work Phone: Comment on above: Expected: 06/16/2022 , Expires: 08/16/2022 Start: 06-16-2022 End: 08-16-2022 Comprehensive metabolic 2000 panel - Serum or Plasma COMP METABOLIC PANEL Lab Routine Multiple myeloma not having achieved remission (HCC) Expected: 06/16/2022, Expires: 08/16/2022 [facility] Work Phone: Comment on above: Expected: 06/16/2022 , Expires: 08/16/2022 Start: 06-16-2022 End: 08-16-2022 MONOCLONAL PROTEIN, SERUM (BLOOD) MONOCLONAL PROTEIN, SERUM (BLOOD) Lab Routine Multiple myeloma not having achieved remission (HCC) Expected: 06/16/2022, Expires: 08/16/2022 [facility] Work Phone: Comment on above: Expected: 06/16/2022 , Expires: 08/16/2022 Start: 06-16-2022 End: 08-16-2022 PROT ELECT SERUM WITH TOÑITO AND INTERP PROT ELECT SERUM WITH TOÑITO AND INTERP Lab Routine Multiple myeloma not having achieved remission (HCC) Expected: 06/16/2022, Expires: 08/16/2022 [facility] Work Phone: Comment on above: Expected: 06/16/2022 , Expires: 08/16/2022 Start: 05-25-2022 Influenza vaccination INFLUENZA (#1) [facility] Start: 05-15-2022 COVID-19 VACCINE (5 - Booster) COVID-19 VACCINE (5 - Booster) [facility] Start: 03-23-2022 End: 05-23-2022 CBC W Auto Differential panel - Blood CBC + DIFF Lab Routine Multiple myeloma not having achieved remission (HCC) Expected: 03/23/2022, Expires: 05/23/2022 [facility] Work Phone: Comment on above: Expected: 03/23/2022 , Expires: 05/23/2022 Start: 03-23-2022 End: 05-23-2022 Comprehensive metabolic 2000 panel - Serum or Plasma COMP METABOLIC PANEL Lab Routine Multiple myeloma not having achieved remission (HCC) Expected: 03/23/2022, Expires: 05/23/2022 [facility] Work Phone: Comment on above: Expected: 03/23/2022 , Expires: 05/23/2022 Start: 03-23-2022 End: 05-23-2022 MONOCLONAL PROTEIN, SERUM (BLOOD) MONOCLONAL PROTEIN, SERUM (BLOOD) Lab Routine Multiple myeloma not having achieved remission (HCC) Expected: 03/23/2022, Expires: 05/23/2022 [facility] Work Phone: Comment on above: Expected: 03/23/2022 , Expires: 05/23/2022 Start: 03-23-2022 End: 05-23-2022 PROT ELECT SERUM WITH TOÑITO AND INTERP PROT ELECT SERUM WITH TOÑITO AND INTERP Lab Routine Multiple myeloma not having achieved remission (HCC) Expected: 03/23/2022, Expires: 05/23/2022 [facility] Work Phone: Comment on above: Expected: 03/23/2022 , Expires: 05/23/2022 Start: 03-10-2022 COVID-19 VACCINE (5 - Booster) COVID-19 VACCINE (5 - Booster) [facility] Start: 09-28-2021 COVID-19 VACCINE (4 - Booster) COVID-19 VACCINE (4 - Booster) [facility] Start: 09-24-2021 ADVANCE DIRECTIVE DISCUSSION ADVANCE DIRECTIVE DISCUSSION [facility] Start: 09-24-2021 DEPRESSION ASSESSMENT DEPRESSION ASS ESSMENT [facility] Start: 2012 Fall Risk Screening Fall Risk Screen [facility] Start: 2012 PNEUMOVAX AGE 65 AND OVER WITH 5YR LOOKBACK (#1) PNEUMOVAX AGE 65 AND OVER WITH 5YR LOOKBACK (#1) [facility] Start: 2007 Hepatitis B Vaccine (1 of 3 - Risk 3-dose series) Hepatitis B Vaccine (1 of 3 - Risk 3-dose series) [facility] Start: 2007 RSV Vaccine (1 - 1-d ose 60+ series) RSV Vaccine (1 - 1-dose 60+ series) [facility] Start: 1997 Administration of varicella zoster vaccine Zoster (Shingles) Vaccine (1 of 2) [facility] Start: 1997 SHINGRIX VACCINE (1 of 2) NICK GRIX VACCINE (1 of 2) [facility] Start: 1992 COLOGUARD (FIT-DNA) COLOGUARD (FIT-D NA) [facility] Start: 1992 Colonoscopy COLONOSCOPY [facility] Start: 1992 COLORECTAL CANCER SCREENING COLORECTAL CANCER SCREENING [facility] Start: [address] COLONOGRAPHY [facility] Start: 1992 FECAL OCCULT BLOOD FECAL OCCULT BLOO D [facility] Start: 1992 SIGMOIDOSCOPY SIGMOIDOSCOPY [facility] Start: 1966 DTaP,Tdap and Td Vac cines (1 - Tdap) DTaP,Tdap and Td Vaccines (1 - Tdap) [facility] Start: 1966 Pneumococcal Vaccine : 50+ (1 of 2 - PCV) Pneumococcal Vaccine: 50+ (1 of 2 - PCV) [facility] Start: 1966 SHINGRIX VACCINE (1 of 2) NICK GRIX VACCINE (1 of 2) [facility] Start: 1966 Urine microalbumin profile [facility] Start: 1965 ANNUAL PCP TEAM WATCH DIAL MAKER VINICIO DISEASE VISIT ANNUAL PCP TEAM CHRONIC DISEASE VISIT [facility] Start: 1965 Anxiety Screening Anxiety Screening [facility] Start: 1965 Depression Screening Depression Scre matt [facility] Start: 1965 Hepatitis B surface antibody level LDL CHOLESTEROL [facility] Start: 1965 HEPATITIS C SCREENING HEPATITIS C [facility] Start: 1965 Hepatitis C screening Hepatitis C [facility] Start: 1959 Depression Screening Depression Scre [facility] Start: 1957 3 comp foot exam completed DIABETIC FOOT EXAM [facility] Start: 1957 Diabetic foot examination Diabetic F oot Exam [facility] Start: 1957 Glaucoma screening Dilated Retinal E xam [facility] Start: 1957 Hepatitis B screening URINE AL BUMIN:CREATININE RATIO [facility] Start: 1957 Hepatitis C antibody , confirmatory test DILATED RETINAL EXAM [facility] Start: 1953 Pneumococcal Vaccine : 65+ (1 - PCV) Pneumococcal Vaccine: 65+ (1 - PCV) [facility] Start: 1953 Pneumococcal Vaccine : 65+ (1 of 2 - PCV) Pneumococcal Vaccine: 65+ (1 of 2 - PCV) [facility] Start: 1953 PNEUMOCOCCAL: 65+ (1 - PCV) PNEUMOCOCCAL: 65+ (1 - PCV) [facility] Start: 1952 Hemoglobin A1c measurement HbA1C [facility] Start: 1952 Hemoglobin A1c/Hemoglobin.total in Blood HBA1C [facility] Start: 1947 ABDOMINAL AORTIC ANE URYSM SCREENING ABDOMINAL AORTIC ANEURYSM SCREENING [facility] Immunizations Immunization Date Immunization Notes Care Provider Sangeetha huang 07-07-2023 respiratory syncytia l virus (RSV) vaccine, bivalent (ABRYSVO) Chair Yepez Work Phone: [facility] 06-28-2021 COVID-19 vaccine (UNSPECIFIED) Porsche Adame [facility] Work Phone: [facility] 06-28-2021 COVID-19 vaccine, ag e 12+ yr (PFIZER-[employer] - PURPLE TOP) [employer] Adame [facility] Work Phone: [facility] 06-16-2021 influenza, high-dose , quadrivalent vaccine (FLUZONE HIGH DOSE QUADRIVALENT) [employer] Adame [facility] Work Phone: [facility] 06-16-2021 influenza virus vacc ine, unspecified formulation Ainsley Woodson [facility] Work Phone: [facility] 11-11-2020 COVID-19 vaccine, ag e 12+ yr (PFIZER-[employer] - PURPLE TOP) [employer] Adame [facility] Work Phone: [facility] 10-22-2020 COVID-19 vaccine, ag e 12+ yr (PFIZER-[employer] - PURPLE TOP) [employer] Adame [facility] Work Phone: [facility] 07-05-2020 Seasonal trivalent influenza vaccine, adjuvanted, preservative free [employer] Adame [facility] Work Phone: [facility] 07-19-2016 influenza virus vacc ine, unspecified formulation [employer] Adame [facility] Work Phone: [facility] Payers Date Payer Category Payer Medicare MEDICARE MEDICAR E A AND B [id number] 2012-Present [phone] [place] [address] Medicare [id number] 2012 Medicare [id number] 2012 Private Health Insurance [facility] INSURANCE [id number] 2012 Unknown [employer]URANCE FORETHOUGHT SUPPLEMENT [id number] 2012-Present [phone] [address] [address] [place] [address] Indemnity [id number] 2012 Unknown [employer]URANCE FORETHOUGHT SUPPLEMENT [id number] 2012-Present [phone] [address] [address] [place] [address] Indemnity [id number] 1959 Medicare [id number] 1959 Unknown [id number] 1947 Unknown [id number] 2.16.840.1.790635.3.579. 2.647 1947 Unknown [id number] 2.16.840.1.191359.3.579. 2.593 1947 Unknown [id number] 2.16.840.1.417091.3.579. 2.593 1947 Unknown [id number] 2.16.840.1.883164.3.579. 2.593 1947 Unknown [id number] 2.16.840.1.583857.3.579. 2.593 1947 Unknown [id number] 2.16.840.1.836073.3.579. 2.593 1947 Unknown [id number] 2.16.840.1.070128.3.579. 2.593 1947 Unknown [id number] 2.16.840.1.201242.3.579. 2.593 1947 Unknown [id number] 2.16.840.1.295489.3.579. 2.593 1947 Unknown [id number] 2.16.840.1.246260.3.579. 2.1286 1947 Unknown [id number] 2.16.840.1.122245.3.579. 2.1286 1947 Unknown [id number] 2.16.840.1.905236.3.579. 2.1285 1947 Unknown [id number] 2.16.840.1.972541.3.579. 2.1286 1947 Unknown [id number] 2.16.840.1.770476.3.579. 2.1285 1947 Unknown [id number] 2.16.840.1.952439.3.579. 2.1286 1947 Unknown [id number] 2.16.840.1.005791.3.579. 2.128 1947 Unknown [id number] 2.16.840.1.474244.3.579. 2.1286 1947 Unknown [id number] 2.16.840.1.579630.3.579. 2.1286 Managed Care Other (unspecified) [id number] Medicare [id number] Social History Date Type Detail Facility Start: 10-20-2015 [facility] Work Phone: Start: 09-24-1960 End: 09-24-1990 History of tobacco use Current smoker [facility] Work Phone: Start: 09-24-1960 End: 09-24-1990 History of tobacco use Cigarette Smoker [facility] Work Phone: Start: 11-28-2021 End: 02-26-2024 Alcohol intake Current non-drinker of alcohol (finding) [facility] Start: 1945 Sex Assigned At Not on file [facility] Start: 01-14-2022 End: 06-20-2022 Exposure to SARS-CoV-2 (event) Not sure [facility] Start: 10-20-2015 End: 03-06-2023 Cigarettes smoked current (pack per day) - Reported 2 [facility] Start: 10-20-2015 End: 10-09-2024 Tobacco use and exposure Smokeless tobacco non-user [facility] Start: 03-21-2022 End: 03-06-2023 Tobacco use panel [facility] National Score (1-10 0), lower number is lower risk 63 [facility] Start: 10-09-2024 Tobacco smoking stat us LAIS Never smoked tobacco [facility] Start: 10-09-2024 End: 11-19-2024 Alcoholic beverage intake Ex-drinker (finding) [facility] Start: 04-29-2015 Sex Male (finding) [facility] [employer] Medical Equipment Procedure Code Equipment Code Equipment Origin al Text Equipment Identifier Dates Lens Iol [id number]. [address] [facility] [id number] - [id number] - [id number] Start: 10-30-2024 Lens Iol [id number]. [address] [facility] [id number] - [id number] - [id number] Start: 11-20-2024 Functional Status Date Assessment Result Facility 04-09-2015 Are you deaf, or do you have serious difficulty hearing No 04/09/2015 11:20 AM Selin Sierra MA No [facility] 04-09-2015 Are you blind, or do you have serious difficulty seeing, even when wearing glasses No 04/09/2015 11:20 AM Selin Sierra MA No [facility] 04-09-2015 Do you have serious difficulty walking or climbing stairs No 04/09/2015 11:20 AM Selin Sierra MA No [facility] 04-09-2015 Do you have difficul ty dressing or bathing No 04/09/2015 11:20 AM Selin Sierra MA No [facility] 04-09-2015 Because of a physica l, mental, or emotional condition, do you have difficulty doing errands alone such as visiting a physician's office or shopping No 04/09/2015 11:20 AM Selin Sierra MA No [facility] Mental Status Date Assessment Result Facility 04-09-2015 Because of a physica l, mental, or emotional condition, do you have serious difficulty concentrating, remembering, or making decisions No 04/09/2015 11:20 AM Selin Sierra MA [facility] Clinical Notes 01-24-2022 to 02-19-2025 Telephone [...] this time. Appointment verified. Bozena Roland RN [facility] 02-19-2025 Miscellaneous Notes Pt informed of [facility] message, once verified, using 2 patient identifiers. Patient denies any questions, needs or concerns at this time. Appointment verified. Bozena Roland RN documented in this encounter [facility] 02-16-2025 Note HNO ID: [id number] Author: URIEL GUNTER MD Service: ? Author [...] mellitus (HCC) Hyperlipidemia Monoclonal gammopathy 11/2002 IgG [place] Multiple myeloma (HCC) 2002 Ulcerative colitis (HCC) [...] for metastases. 08/18/2019 - Bone survey at [facility] Conclusion: Scattered lytic lesions, stable in num (more content not included)... [facility] 02-16-2025 History of Presen t illness [...] mellitus (HCC) Hyperlipidemia Monoclonal gammopathy 11/2002 IgG [place] Multiple myeloma (HCC) 2002 Ulcerative colitis (HCC) [...] for metastases. 08/18/2019 - Bone survey at [facility] Conclusion: Scattered lytic lesions, stable in number and size from prior exams. 05/06/2018 - Bone Survey at [facility] Scattered lytic lesions, stable in both [...] Uriel Gunter MD documented in this encounter [facility] 11-19-2024 Nurse Note Preoperative Education Checklist- General Surgery date: 11/20/24 Surgery time: 945a Arrival time: 745a 1. Bring a photo ID and your insurance card with you the day of surgery. You will check in at the main lobby of the [facility]- registration desk is straight ahead as soon as you walk in. Tell them you are here for surgery. 2. If you have a Living Will/Durable Power of Framing Manager for Health Care that is not on [...] after you have bathed. 5. NO nail maltese/acrylic on at least one finger. If you are having a hand, wrist or foot surgery then all nail maltese and artificial/acrylic nails must be removed from [...] please call the Preadmission Testing office at [phone], Mon.-Fri. 7 a.m.-3 p.m. Leave a voicemail [...] Stop taking 0 days prior to procedure [facility] 11-19-2024 Miscellaneous Notes Preoperative Education Checklist- General Surgery date: 11/20/24 Surgery time: 945a Arrival time: 745a 1. Bring a photo ID and your insurance card with you the day of surgery. You will check in at the main lobby of the [facility]- registration desk is straight ahead as soon as you walk in. Tell them you are here for surgery. 2. If you have a Living Will/Durable Power of Framing Manager for Health Care that is not on [...] after you have bathed. 5. NO nail maltese/acrylic on at least one finger. If you are having a hand, wrist or foot surgery then all nail maltese and artificial/acrylic nails must be removed from [...] please call the Preadmission Testing office at [phone], Mon.-Fri. 7 a.m.-3 p.m. Leave a voicemail [...] prior to procedure documented in this encounter [facility] 10-10-2024 Telephone encounter Note Zach called requesting a refill on his revlimid. He is on his off week starting 10/11/24 and would like the script shipped to his house. Thank you- Dustin Woodson PharmD, MADI [facility] Work Phone: 10-10-2024 Miscellaneous Notes Zach called requesting a refill on his revlimid. He is on his off week starting 10/11/24 and would like the script shipped to his house. Thank you- Dustin Woodson PharmD, BCOP documented in this encounter [facility] 10-09-2024 Instructions Nilam Ortiz RN - 10/09/2024 9:45 AM EST Preoperative Education Checklist- General Surgery date: 10/30/24 Surgery time: 945a Arrival time: 745a 1. Bring a photo ID and your insurance card with you the day of surgery. You will check in at the main lobby of the [facility]- registration desk is straight ahead as soon as you walk in. Tell them you are here for surgery. 2. If you have a Living Will/Durable Power of Framing Manager for Health Care that is not on [...] after you have bathed. 5. NO nail maltese/acrylic on at least one finger. If you are having a hand, wrist or foot surgery then all nail maltese and artificial/acrylic nails must be removed from [...] please call the Preadmission Testing office at [phone], Mon.-Fri. 7 a.m.-3 p.m. Leave a voicemail [...] prior to procedure documented in this encounter [facility] 05-29-2024 Telephone encounter Note Pt and spouse notified and verbalizes understanding. Juan Ferguson RN [facility] Work Phone: 05-29-2024 Miscellaneous Notes Pt and spouse notified and verbalizes understanding. Juan Ferguson RN ----- Message from Latrice Hilario PA-C sent at 05/29/2024 11:58 AM EDT ----- Please call with stable myeloma labs documented in this encounter [facility] 05-29-2024 Telephone encounter Note ----- Message from Latrice Hilario PA-C sent at 05/29/2024 11:58 AM EDT ----- Please call with stable myeloma labs [facility] 05-27-2024 Telephone encounter Note Pt's spouse notified and verbalizes understanding. Juan Ferguson RN [facility] Work Phone: 05-27-2024 Miscellaneous Notes Pt's spouse notified and verbalizes understanding. Juan Ferguson RN Please call with a stable kidney function. Latrice Hilario PA-C documented in this encounter [facility] 05-27-2024 Telephone encounter Note Please call with a stable kidney function. Latrice Hilario PA-C [facility] Work Phone: 05-27-2024 Note HNO ID: [id number] Author: LATRICE HILARIO PA-C Service: ? Author Type: Physician Nuclear Equipment Test Engineer Type: Progress Notes Filed: 05/27/2024 13:29 Note [...] date: Hyperlipidemia 11/2002: Monoclonal gammopathy Comment: IgG [place] 2003: Multiple myeloma (HCC) No date: Ulcerative [...] for metastases. 08/18/2019 - Bone survey at [facility] Conclusion: Scattered lytic lesions, stable in number and size from prior exams. 05/06/2018 - [place] (more content not included)... [facility] 05-27-2024 History of Presen t illness [...] date: Hyperlipidemia 11/2002: Monoclonal gammopathy Comment: IgG [place] 2002: Multiple myeloma (HCC) No date: Ulcerative [...] for metastases. 08/18/2019 - Bone survey at [facility] Conclusion: Scattered lytic lesions, stable in number and size from prior exams. 05/06/2018 - Bone Survey at [facility] Scattered lytic lesions, stable in both [...] which included preparing to see the patient, mryi-zw-vlky patient care, completing clinical documentation, performing a medically appropriate examination, counseling and educating the patient/family/caregiver, ordering medications, tests, or procedures, independently interpreting results (not separately reported), communicating results to the patient/family/caregiver, and care coordination (not separately reported). documented in this encounter [facility] 05-20-2024 Telephone encounter Note Patient has an appt on 05/27/24. Would you like labs, if so place orders. Irma Talavera MA [facility] 05-20-2024 Miscellaneous Notes Patient has an appt on 05/27/24. Would you like labs, if so place orders. Irma Talavera MA documented in this encounter [facility] 02-29-2024 Telephone encounter Note Pt notified and verbalizes understanding. Juan Ferguson RN [facility] Work Phone: 02-29-2024 Telephone encounter Note ----- Message from Latrice Hilario PA-C sent at 02/29/2024 8:10 AM EDT ----- Please let patient know his labs are stable and we will continue to monitor [facility] 02-29-2024 Miscellaneous Notes Pt notified and verbalizes understanding. Juan Ferguson RN ----- Message from Latrice Hilario PA-C sent at 02/29/2024 8:10 AM EDT ----- Please let patient know his labs are stable and we will continue to monitor documented in this encounter [facility] 02-25-2024 Note HNO ID: [id number] Author: URIEL GUNTER MD Service: ? Author [...] mellitus (HCC) Hyperlipidemia Monoclonal gammopathy 11/2002 IgG [place] Multiple myeloma (HCC) 2002 Ulcerative colitis (HCC) [...] osseous lesions s (more content not included)... [facility] 02-25-2024 History of Presen t illness [...] mellitus (HCC) Hyperlipidemia Monoclonal gammopathy 11/2002 IgG [place] Multiple myeloma (HCC) 2002 Ulcerative colitis (HCC) [...] for metastases. 08/18/2019 - Bone survey at [facility] Conclusion: Scattered lytic lesions, stable in number and size from prior exams. 05/06/2018 - Bone Survey at [facility] Scattered lytic lesions, stable in both [...] Uriel Gunter MD documented in this encounter [facility] 11-27-2023 History of Presen t illness [...] DROPS INTO AFFECTED EYE 4 TIMES DAILY uwwzvzcc-sfxmkypew-icsfrcpazxpua e (CORTISPORIN) otic solution INSTILL 3 4 [...] mellitus (HCC) Hyperlipidemia Monoclonal gammopathy 11/2002 IgG [place] Multiple myeloma (HCC) 2002 Ulcerative colitis (HCC) [...] for metastases. 08/18/2019 - Bone survey at [facility] Conclusion: Scattered lytic lesions, stable in number and size from prior exams. 05/06/2018 - Bone Survey at [facility] Scattered lytic lesions, stable in both [...] considered if renal function worsens. Becca Lane APRN.FINANCIAL MANAGEMENT ANALYST I spent a total of 30 minutes on the date of the service which included preparing to see the patient, wbzv-ah-jczz patient care, completing clinical documentation, obtaining and/or reviewing separately obtained history, performing a medically appropriate examination, counseling and educating the patient/family/caregiver, ordering medications, tests, or procedures, independently interpreting results (not separately reported), and communicating results to the patient/family/caregiver. documented in this encounter [facility] 11-23-2023 Miscellaneous Notes Patient has an appt on 11/26. Would you like labs? documented in this encounter [facility] 08-28-2023 History of Presen t illness [...] DROPS INTO AFFECTED EYE 4 TIMES DAILY ojzeveoc-kevxnvotc-kznbfwqqnrsiq e (CORTISPORIN) otic solution INSTILL 3 4 [...] mellitus (HCC) Hyperlipidemia Monoclonal gammopathy 11/2002 IgG [place] Multiple myeloma (HCC) 2002 Ulcerative colitis (HCC) [...] for metastases. 08/18/2019 - Bone survey at [facility] Conclusion: Scattered lytic lesions, stable in number and size from prior exams. 05/06/2018 - Bone Survey at [facility] Scattered lytic lesions, stable in both [...] Uriel Gunter MD documented in this encounter [facility] 05-31-2023 Miscellaneous Notes Pt informed of TAYLOR message. He denies any questions or concerns at this time. Appt holley Roland RN ----- Message from Uriel Gunter MD sent at 05/31/2023 12:08 PM EDT ----- Please inform the patient that his protein analysis is stable which is excellent news. We will continue as planned. documented in this encounter [facility] 05-29-2023 History of Presen t illness [...] DROPS INTO AFFECTED EYE 4 TIMES DAILY mtooognu-arhuherif-ovksmhhegtxto e (CORTISPORIN) otic solution INSTILL 3 4 [...] mellitus (HCC) Hyperlipidemia Monoclonal gammopathy 11/2002 IgG [place] Multiple myeloma (HCC) 2002 Ulcerative colitis (HCC) [...] for metastases. 08/18/2019 - Bone survey at [facility] Conclusion: Scattered lytic lesions, stable in number and size from prior exams. 05/06/2018 - Bone Survey at [facility] Scattered lytic lesions, stable in both [...] disc disease. Stable status post surgery (Dr. Haprer) 01/26/2015. Continue follow-up with PCP/neurosurgery as indicated. [...] Uriel Gunter MD documented in this encounter [facility] 02-27-2023 Miscellaneous Notes Patient has an OTV appointment on 03/06. Please place lab orders. Monica Baptiste documented in this encounter [facility] 12-05-2022 History of Presen t illness [...] DROPS INTO AFFECTED EYE 4 TIMES DAILY qhcavsgb-gvlysykck-pfbfibkkeubsk e (CORTISPORIN) otic solution INSTILL 3 4 [...] mellitus (HCC) Hyperlipidemia Monoclonal gammopathy 11/2002 IgG [place] Multiple myeloma (HCC) 2002 Ulcerative colitis (HCC) [...] for metastases. 08/18/2019 - Bone survey at [facility] Conclusion: Scattered lytic lesions, stable in number and size from prior exams. 05/06/2018 - Bone Survey at [facility] Scattered lytic lesions, stable in both [...] Uriel Gunter MD documented in this encounter [facility] 11-27-2022 Miscellaneous Notes Addended by: URIEL GUNTER on: 11/27/2022 01:06 PM Modules accepted: Orders Patient coming in on Sunday12/05/22 for follow up treatment. Please add lab orders. Thanks, Selin Stapleton MA documented in this encounter [facility] 09-21-2022 Miscellaneous Notes Please sign in everyone's absence. Thank you Dustin Woodson rPh documented in this encounter [facility] 09-12-2022 History of Presen t illness [...] DROPS INTO AFFECTED EYE 4 TIMES DAILY isjpsfdz-thzylakhf-skzbjkbxrptxt e (CORTISPORIN) otic solution INSTILL 3 4 [...] mellitus (HCC) Hyperlipidemia Monoclonal gammopathy 11/2002 IgG [place] Multiple myeloma (HCC) 2002 Ulcerative colitis (HCC) [...] for metastases. 08/18/2019 - Bone survey at [facility] Conclusion: Scattered lytic lesions, stable in number and size from prior exams. 05/06/2018 - Bone Survey at [facility] Scattered lytic lesions, stable in both [...] Uriel Gunter MD documented in this encounter [facility] 06-20-2022 History of Presen t illness Narrative Recommendations per pharmacist Humaira Woodson [facility] for patient to take calcium with Vit D 1 tab twice daily especially as his calcium levels normally run low. Patient education complete with printed material. Questions answered as appropriate. He was encouraged to call with questions or concerns. Ese Ferro RN documented in this encounter [facility] 06-20-2022 History of Presen t illness [...] DROPS INTO AFFECTED EYE 4 TIMES DAILY jahueioi-tyhoivrzq-tanfpikclmvaz e (CORTISPORIN) otic solution INSTILL 3 4 [...] mellitus (HCC) Hyperlipidemia Monoclonal gammopathy 11/2002 IgG [place] Multiple myeloma (HCC) 2002 Ulcerative colitis (HCC) [...] for metastases. 08/18/2019 - Bone survey at [facility] Conclusion: Scattered lytic lesions, stable in number and size from prior exams. 05/06/2018 - Bone Survey at [facility] Scattered lytic lesions, stable in both [...] Becca Lane APRN.CNP documented in this encounter [facility] 06-20-2022 Miscellaneous Notes Pt due for Aredia today. Pharmacy suggests checking pt's Calcium level w/ today's labs. Order pended. Juan Ferguson, RN documented in this encounter [facility] 06-16-2022 Miscellaneous Notes Please sign for Dr. Gunter since he is out of the office. Thanks, Becca Lane APRN.PASTORA documented in this encounter [facility] 06-15-2022 Miscellaneous Notes Patient has an appt on 06/20. Would you like labs? documented in this encounter [facility] 04-20-2022 Miscellaneous Notes Signed documented in this encounter [facility] 2022 Miscellaneous Notes New benjamin obtained through [employer] for $[id number] on ID# [id number] Enrollment 02/27/2022 through 02/26/2023 documented in this encounter [facility] 03-24-2022 Miscellaneous Notes Informed pt's of Dr Gunter's message. Janett verbalized understanding and denies further needs at this time. Funmilayo Arriola RN ----- Message from Uriel Gunter MD sent at 03/23/2022 4:50 PM EDT ----- Please inform the patient that his labs are stable, M spike down to 0.68. We will continue as planned. Bennie, TAYLOR documented in this encounter [facility] 03-21-2022 History of Presen t illness [...] DROPS INTO AFFECTED EYE 4 TIMES DAILY qcgumpmp-xccsakqjn-dvchzivvxoiwy e (CORTISPORIN) otic solution INSTILL 3 4 [...] mellitus (HCC) Hyperlipidemia Monoclonal gammopathy 11/2002 IgG [place] Multiple myeloma (HCC) 2002 Ulcerative colitis (HCC) [...] for metastases. 08/18/2019 - Bone survey at [facility] Conclusion: Scattered lytic lesions, stable in number and size from prior exams. 05/06/2018 - Bone Survey at [facility] Scattered lytic lesions, stable in both [...] Uriel Gunter MD documented in this encounter [facility] 02-24-2022 Miscellaneous Notes Signed. documented in this encounter [facility] 01-24-2022 History of Presen t illness [...] DROPS INTO AFFECTED EYE 4 TIMES DAILY ozzgmmqy-xwjsdxtcj-pcktlrlipvlkv e (CORTISPORIN) otic solution INSTILL 3 4 [...] mellitus (HCC) Hyperlipidemia Monoclonal gammopathy 11/2002 IgG [place] Multiple myeloma (HCC) 2002 Ulcerative colitis (HCC) [...] RADIOLOGY/OTHER STUDIES: 08/18/2019 - Bone survey at [facility] Conclusion: Scattered lytic lesions, stable in number and size from prior exams. 05/06/2018 - Bone Survey at [facility] Scattered lytic lesions, stable in both [...] Uriel Gunter MD documented in this encounter [facility] Evaluation note Diagnosis Multiple myeloma not [...] Unspecified pre-operative examination 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 H/O ulcerative colitis Personal history of other diseases of digestive system Stage 3b chronic kidney disease (HCC) [facility] this [facility] HospitalInstructionsNot on filedocumented in this encounterMary Rutan HospitalReason for visit Narrative* [place] Prior Authorization (Routine) - Authorized Specialty Diagnoses / Procedures Referred By Contac t Referred To Contact Diagnoses Multiple myeloma not having achieved remission (HCC) Paget disease of bone Uriel Gunter MD [address] [place] [place] [address] Phone: tel: fax: Hematology/Oncology [address] [place] [place] [address] Phone: tel: fax: Referral ID Status Reason Start Date Expiration Date V isits Requested Visits Authorized [id number] Authorized 02/26/2024 05/26/2024 99 99 [facility] Summary Purpose Family History No Family History Records FoundNo Family History Records FoundNo Family History Records FoundNo Family History Records FoundNo Family History Records FoundNo Family History Records Found Advance Directives Documents on File Type Date Recorded 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 Name: Zach Manuel Admitted: [...] t Referred To Contact Aiden Hatfield MD [address] [place] [id number] Referral ID Status Reason Start Date Expiration Date V isits Requested Visits Authorized [id number] Authorized 06/24/2022 09/23/2023 1 1 Additional Source Comments (unrecognized sect ion and content) No Status Records FoundNo Status Records FoundNo Status Records FoundNo Status Records FoundNo Status Records FoundNo Status Records Found INFORMATION SOURCE (unrecogn ized section and content) DATE CREATED AUTHOR 06/06/2019 [facility] DATE CREATED AUTHOR AUTHOR'S ORGANIZ ATION 11/17/2021 [facility] DATE CREATED AUTHOR AUTHOR'S ORGANIZ ATION 12/27/2021 [facility] DATE CREATED AUTHOR AUTHOR'S ORGANIZ ATION 09/02/2022 [facility] DATE CREATED AUTHOR AUTHOR'S ORGANIZ ATION 11/21/2024 [facility] DATE CREATED AUTHOR AUTHOR'S ORGANIZ ATION 02/19/2025 [facility] Source Comments (unrecognize d section and content) In the event this informatio n is protected by the Federal Confidentiality of Alcohol and Drug Abuse Patient Records regulations: The Federal rules restrict any use of the information to criminally investigate or prosecute any alcohol or drug abuse patient.[facility] the event this information is protected by the Federal Confidentiality of Alcohol and Drug Abuse Patient Records regulations: The Federal rules restrict any use of the information to criminally investigate or prosecute any alcohol or drug abuse patient.[facility] the event this information is protected by the Federal Confidentiality of Alcohol and Drug Abuse Patient Records regulations: The Federal rules restrict any use of the information to criminally investigate or prosecute any alcohol or drug abuse patient.[facility] HospitalIn the event this information is protected by the Federal Confidentiality of Alcohol and Drug Abuse Patient Records regulations: The Federal rules restrict any use of the information to criminally investigate or prosecute any alcohol or drug abuse patient.[facility] HospitalIn the event this information is protected by the Federal Confidentiality of Alcohol and Drug Abuse Patient Records regulations: The Federal rules restrict any use of the information to criminally investigate or prosecute any alcohol or drug abuse patient.[facility] HospitalIn the event this information is protected by the Federal Confidentiality of Alcohol and Drug Abuse Patient Records regulations: The Federal rules restrict any use of the information to criminally investigate or prosecute any alcohol or drug abuse patient.[facility] the event this information is protected by the Federal Confidentiality of Alcohol and Drug Abuse Patient Records regulations: The Federal rules restrict any use of the information to criminally investigate or prosecute any alcohol or drug abuse patient.[facility] HospitalIn the event this information is protected by the Federal Confidentiality of Alcohol and Drug Abuse Patient Records regulations: The Federal rules restrict any use of the information to criminally investigate or prosecute any alcohol or drug abuse patient.[facility] HospitalIn the event this information is protected by the Federal Confidentiality of Alcohol and Drug Abuse Patient Records regulations: The Federal rules restrict any use of the information to criminally investigate or prosecute any alcohol or drug abuse patient.[facility] HospitalIn the event this information is protected by the Federal Confidentiality of Alcohol and Drug Abuse Patient Records regulations: The Federal rules restrict any use of the information to criminally investigate or prosecute any alcohol or drug abuse patient.[facility] HospitalIn the event this information is protected by the Federal Confidentiality of Alcohol and Drug Abuse Patient Records regulations: The Federal rules restrict any use of the information to criminally investigate or prosecute any alcohol or drug abuse patient.[facility] HospitalIn the event this information is protected by the Federal Confidentiality of Alcohol and Drug Abuse Patient Records regulations: The Federal rules restrict any use of the information to criminally investigate or prosecute any alcohol or drug abuse patient.[facility] HospitalIn the event this information is protected by the Federal Confidentiality of Alcohol and Drug Abuse Patient Records regulations: The Federal rules restrict any use of the information to criminally investigate or prosecute any alcohol or drug abuse patient.[facility] HospitalIn the event this information is protected by the Federal Confidentiality of Alcohol and Drug Abuse Patient Records regulations: The Federal rules restrict any use of the information to criminally investigate or prosecute any alcohol or drug abuse patient.[facility] HospitalIn the event this information is protected by the Federal Confidentiality of Alcohol and Drug Abuse Patient Records regulations: The Federal rules restrict any use of the information to criminally investigate or prosecute any alcohol or drug abuse patient.[facility] HospitalIn the event this information is protected by the Federal Confidentiality of Alcohol and Drug Abuse Patient Records regulations: The Federal rules restrict any use of the information to criminally investigate or prosecute any alcohol or drug abuse patient.[facility] HospitalIn the event this information is protected by the Federal Confidentiality of Alcohol and Drug Abuse Patient Records regulations: The Federal rules restrict any use of the information to criminally investigate or prosecute any alcohol or drug abuse patient.[facility] HospitalIn the event this information is protected by the Federal Confidentiality of Alcohol and Drug Abuse Patient Records regulations: The Federal rules restrict any use of the information to criminally investigate or prosecute any alcohol or drug abuse patient.[facility] HospitalIn the event this information is protected by the Federal Confidentiality of Alcohol and Drug Abuse Patient Records regulations: The Federal rules restrict any use of the information to criminally investigate or prosecute any alcohol or drug abuse patient.[facility] HospitalIn the event this information is protected by the Federal Confidentiality of Alcohol and Drug Abuse Patient Records regulations: The Federal rules restrict any use of the information to criminally investigate or prosecute any alcohol or drug abuse patient.[facility] HospitalIn the event this information is protected by the Federal Confidentiality of Alcohol and Drug Abuse Patient Records regulations: The Federal rules restrict any use of the information to criminally investigate or prosecute any alcohol or drug abuse patient.[facility] HospitalIn the event this information is protected by the Federal Confidentiality of Alcohol and Drug Abuse Patient Records regulations: The Federal rules restrict any use of the information to criminally investigate or prosecute any alcohol or drug abuse patient.[facility] HospitalIn the event this information is protected by the Federal Confidentiality of Alcohol and Drug Abuse Patient Records regulations: The Federal rules restrict any use of the information to criminally investigate or prosecute any alcohol or drug abuse patient.[facility]In the event this information is protected by the Federal Confidentiality of Alcohol and Drug Abuse Patient Records regulations: The Federal rules restrict any use of the information to criminally investigate or prosecute any alcohol or drug abuse patient.[facility] HospitalIn the event this information is protected by the Federal Confidentiality of Alcohol and Drug Abuse Patient Records regulations: The Federal rules restrict any use of the information to criminally investigate or prosecute any alcohol or drug abuse patient.[facility] HospitalIn the event this information is protected by the Federal Confidentiality of Alcohol and Drug Abuse Patient Records regulations: The Federal rules restrict any use of the information to criminally investigate or prosecute any alcohol or drug abuse patient.[facility] HospitalIn the event this information is protected by the Federal Confidentiality of Alcohol and Drug Abuse Patient Records regulations: The Federal rules restrict any use of the information to criminally investigate or prosecute any alcohol or drug abuse patient.[facility] HospitalIn the event this information is protected by the Federal Confidentiality of Alcohol and Drug Abuse Patient Records regulations: The Federal rules restrict any use of the information to criminally investigate or prosecute any alcohol or drug abuse patient.[facility] HospitalIn the event this information is protected by the Federal Confidentiality of Alcohol and Drug Abuse Patient Records regulations: The Federal rules restrict any use of the information to criminally investigate or prosecute any alcohol or drug abuse patient.[facility] HospitalIn the event this information is protected by the Federal Confidentiality of Alcohol and Drug Abuse Patient Records regulations: The Federal rules restrict any use of the information to criminally investigate or prosecute any alcohol or drug abuse patient.[facility]In the event this information is protected by the Federal Confidentiality of Alcohol and Drug Abuse Patient Records regulations: The Federal rules restrict any use of the information to criminally investigate or prosecute any alcohol or drug abuse patient.[facility]In the event this information is protected by the Federal Confidentiality of Alcohol and Drug Abuse Patient Records regulations: The Federal rules restrict any use of the information to criminally investigate or prosecute any alcohol or drug abuse patient.[facility]In the event this information is protected by the Federal Confidentiality of Alcohol and Drug Abuse Patient Records regulations: The Federal rules restrict any use of the information to criminally investigate or prosecute any alcohol or drug abuse patient.[facility]In the event this information is protected by the Federal Confidentiality of Alcohol and Drug Abuse Patient Records regulations: The Federal rules restrict any use of the information to criminally investigate or prosecute any alcohol or drug abuse patient.[facility]In the event this information is protected by the Federal Confidentiality of Alcohol and Drug Abuse Patient Records regulations: The Federal rules restrict any use of the information to criminally investigate or prosecute any alcohol or drug abuse patient.[facility]In the event this information is protected by the Federal Confidentiality of Alcohol and Drug Abuse Patient Records regulations: The Federal rules restrict any use of the information to criminally investigate or prosecute any alcohol or drug abuse patient.[facility]In the event this information is protected by the Federal Confidentiality of Alcohol and Drug Abuse Patient Records regulations: The Federal rules restrict any use of the information to criminally investigate or prosecute any alcohol or drug abuse patient.[facility] HospitalIn the event this information is protected by the Federal Confidentiality of Alcohol and Drug Abuse Patient Records regulations: The Federal rules restrict any use of the information to criminally investigate or prosecute any alcohol or drug abuse patient.[facility] HospitalIn the event this information is protected by the Federal Confidentiality of Alcohol and Drug Abuse Patient Records regulations: The Federal rules restrict any use of the information to criminally investigate or prosecute any alcohol or drug abuse patient.[facility]In the event this information is protected by the Federal Confidentiality of Alcohol and Drug Abuse Patient Records regulations: The Federal rules restrict any use of the information to criminally investigate or prosecute any alcohol or drug abuse patient.[facility] HospitalIn the event this information is protected by the Federal Confidentiality of Alcohol and Drug Abuse Patient Records regulations: The Federal rules restrict any use of the information to criminally investigate or prosecute any alcohol or drug abuse patient.[facility] HospitalIn the event this information is protected by the Federal Confidentiality of Alcohol and Drug Abuse Patient Records regulations: The Federal rules restrict any use of the information to criminally investigate or prosecute any alcohol or drug abuse patient.[facility]In the event this information is protected by the Federal Confidentiality of Alcohol and Drug Abuse Patient Records regulations: The Federal rules restrict any use of the information to criminally investigate or prosecute any alcohol or drug abuse patient.[facility] HospitalIn the event this information is protected by the Federal Confidentiality of Alcohol and Drug Abuse Patient Records regulations: The Federal rules restrict any use of the information to criminally investigate or prosecute any alcohol or drug abuse patient.[facility] HospitalIn the event this information is protected by the Federal Confidentiality of Alcohol and Drug Abuse Patient Records regulations: The Federal rules restrict any use of the information to criminally investigate or prosecute any alcohol or drug abuse patient.[facility] HospitalIn the event this information is protected by the Federal Confidentiality of Alcohol and Drug Abuse Patient Records regulations: The Federal rules restrict any use of the information to criminally investigate or prosecute any alcohol or drug abuse patient.[facility] HospitalIn the event this information is protected by the Federal Confidentiality of Alcohol and Drug Abuse Patient Records regulations: The Federal rules restrict any use of the information to criminally investigate or prosecute any alcohol or drug abuse patient.[facility]In the event this information is protected by the Federal Confidentiality of Alcohol and Drug Abuse Patient Records regulations: The Federal rules restrict any use of the information to criminally investigate or prosecute any alcohol or drug abuse patient.[facility] HospitalIn the event this information is protected by the Federal Confidentiality of Alcohol and Drug Abuse Patient Records regulations: The Federal rules restrict any use of the information to criminally investigate or prosecute any alcohol or drug abuse patient.[facility] HospitalIn the event this information is protected by the Federal Confidentiality of Alcohol and Drug Abuse Patient Records regulations: The Federal rules restrict any use of the information to criminally investigate or prosecute any alcohol or drug abuse patient.[facility] HospitalIn the event this information is protected by the Federal Confidentiality of Alcohol and Drug Abuse Patient Records regulations: The Federal rules restrict any use of the information to criminally investigate or prosecute any alcohol or drug abuse patient.[facility] HospitalIn the event this information is protected by the Federal Confidentiality of Alcohol and Drug Abuse Patient Records regulations: The Federal rules restrict any use of the information to criminally investigate or prosecute any alcohol or drug abuse patient.[facility]In the event this information is protected by the Federal Confidentiality of Alcohol and Drug Abuse Patient Records regulations: The Federal rules restrict any use of the information to criminally investigate or prosecute any alcohol or drug abuse patient.[facility]In the event this information is protected by the Federal Confidentiality of Alcohol and Drug Abuse Patient Records regulations: The Federal rules restrict any use of the information to criminally investigate or prosecute any alcohol or drug abuse patient.[facility]In the event this information is protected by the Federal Confidentiality of Alcohol and Drug Abuse Patient Records regulations: The Federal rules restrict any use of the information to criminally investigate or prosecute any alcohol or drug abuse patient.[facility] HospitalIn the event this information is protected by the Federal Confidentiality of Alcohol and Drug Abuse Patient Records regulations: The Federal rules restrict any use of the information to criminally investigate or prosecute any alcohol or drug abuse patient.[facility] HospitalIn the event this information is protected by the Federal Confidentiality of Alcohol and Drug Abuse Patient Records regulations: The Federal rules restrict any use of the information to criminally investigate or prosecute any alcohol or drug abuse patient.[facility] HospitalIn the event this information is protected by the Federal Confidentiality of Alcohol and Drug Abuse Patient Records regulations: The Federal rules restrict any use of the information to criminally investigate or prosecute any alcohol or drug abuse patient.[facility] HospitalIn the event this information is protected by the Federal Confidentiality of Alcohol and Drug Abuse Patient Records regulations: The Federal rules restrict any use of the information to criminally investigate or prosecute any alcohol or drug abuse patient.[facility] HospitalIn the event this information is protected by the Federal Confidentiality of Alcohol and Drug Abuse Patient Records regulations: The Federal rules restrict any use of the information to criminally investigate or prosecute any alcohol or drug abuse patient.[facility] HospitalIn the event this information is protected by the Federal Confidentiality of Alcohol and Drug Abuse Patient Records regulations: The Federal rules restrict any use of the information to criminally investigate or prosecute any alcohol or drug abuse patient.[facility] HospitalIn the event this information is protected by the Federal Confidentiality of Alcohol and Drug Abuse Patient Records regulations: The Federal rules restrict any use of the information to criminally investigate or prosecute any alcohol or drug abuse patient.[facility] HospitalIn the event this information is protected by the Federal Confidentiality of Alcohol and Drug Abuse Patient Records regulations: The Federal rules restrict any use of the information to criminally investigate or prosecute any alcohol or drug abuse patient.[facility] Reason for Visit (unrecogniz ed section and content) Reason Onset Date Comments Refill Request 01/02/2022 Reason Comments Multiple Myeloma Reason Onset Date Comments Refill Request 01/30/2022 Reason Onset Date Comments Refill Request 02/24/2022 Reason Comments Multiple Myeloma follow up Reason Comments Results Reason Onset Date Comments Refill Request 2022 lenalidomide Reason Comments Material Checker - [facility] obtained Reason Onset Date Comments Refill Request 04/20/2022 Reason Onset Date Comments Refill Request 05/19/2022 Reason Comments Lab Orders Reason Onset Date Comments Refill Request 06/16/2022 Specialty Diagnoses / Procedures Referred By [facility]ac Referred To Contact Diagnoses Multiple myeloma, remission status unspecified (HCC) Uriel Gunter MD [address] [place] [address] [place] [id number] [facility] [place] [id number] Referral ID Status Reason Start Date Expiration Date V isits Requested Visits Authorized [id number] Authorized 12/10/2020 03/10/2021 99 99 Reason Comments [...] revlimid Specialty Diagnoses / [facility] To Contact Diagnoses Multiple myeloma not having achieved remission (HCC) Paget disease of bone Uriel Gunter MD [address] [place] [address] [place] [id number] [facility] Treat [facility] [address] [place] [id number] Referral ID Status Reason Start Date Expiration Date V isits Requested Visits Authorized [id number] Authorized 02/26/2024 05/26/2024 99 99 Reason Comments [...] Care Teams (unrecognized sec tion and content) Plastic Finisher Relationship Specialty Start Date End Date Hanna Mathias MD [address] [phone] PCP - General 01/27/03 Plastic Finisher Relationship Specialty Start Date End Date Hanna Mathias MD [address] [phone] PCP - General 01/27/03 Plastic Finisher Relationship Specialty Start Date End Date Hanna Mathias MD [address] [phone] PCP - General 01/27/03 Plastic Finisher Relationship Specialty Start Date End Date Hanna Mathias MD [address] [phone] PCP - General 01/27/03 Plastic Finisher Relationship Specialty Start Date End Date Hanna Mathias MD [address] [facility] [address] PCP - General 01/27/03 Plastic Finisher Relationship Specialty Start Date End Date Hanna Mathias MD [address] [place] [address] PCP - General 01/27/03 Plastic Finisher Relationship Specialty Start Date End Date Hanna Mathias MD [address] [place] [address] PCP - General 01/27/03 Plastic Finisher Relationship Specialty Start Date End Date Hanna Mathias MD [address] [place] [address] PCP - General 01/27/03 Plastic Finisher Relationship Specialty Start Date End Date Hanna Mathias MD [address] [place] [address] PCP - General 01/27/03 Plastic Finisher Relationship Specialty Start Date End Date Hanna Mathias MD [address] [place] [address] PCP - General 01/27/03 Plastic Finisher Relationship Specialty Start Date End Date Hanna Mathias MD [address] [place] [address] PCP - General 01/27/03 Plastic Finisher Relationship Specialty Start Date End Date Hanna Mathias MD [address] [facility] [place] [address] PCP - General 01/27/03 Plastic Finisher Relationship Specialty Start Date End Date Hanna Mathias MD [address] [facility] [place] [address] PCP - General 01/27/03 Plastic Finisher Relationship Specialty Start Date End Date Hanna Mathias MD [address] [facility] [place] [address] PCP - General 01/27/03 Plastic Finisher Relationship Specialty Start Date End Date Hanna Mathias MD [address] [facility] [place] [address] PCP - General 01/27/03 Plastic Finisher Relationship Specialty Start Date End Date Hanna Mathias MD [address] [facility] [place] [address] PCP - General 01/27/03 Plastic Finisher Relationship Specialty Start Date End Date Hanna Mathias MD [address] [facility] [place] [address] PCP - General 01/27/03 Plastic Finisher Relationship Specialty Start Date End Date Hanna Mathias MD [address] [facility] [place] [address] PCP - General 01/27/03 Plastic Finisher Relationship Specialty Start Date End Date Hanna Mathias MD [address] [facility] [place] [address] PCP - General 01/27/03 Plastic Finisher Relationship Specialty Start Date End Date Hanna Mathias MD [address] [facility] [place] [address] PCP - General 01/27/03 Plastic Finisher Relationship Specialty Start Date End Date Hanna Mathias MD [address] [facility] [place] [address] PCP - General 01/27/03 Plastic Finisher Relationship Specialty Start Date End Date Hanna Mathias MD [address] [place] [address] PCP - General 01/27/03 Plastic Finisher Relationship Specialty Start Date End Date Hanna Mathias MD [address] [place] [address] PCP - General 01/27/03 Plastic Finisher Relationship Specialty Start Date End Date Hanna Mathias MD [address] [place] [address] PCP - General 01/27/03 Plastic Finisher Relationship Specialty Start Date End Date Hanna Mathias MD [address] [phone] PCP - General 01/27/03 Plastic Finisher Relationship Specialty Start Date End Date Hanna Mathias MD [address] [phone] PCP - General 01/27/03 Plastic Finisher Relationship Specialty Start Date End Date Hanna Mathias MD [address] [phone] PCP - General 01/27/03 Plastic Finisher Relationship Specialty Start Date End Date Hanna Mathias MD [address] [place] [address] PCP - General 01/27/03 Plastic Finisher Relationship Specialty Start Date End Date Hanna Mathias MD [address] [phone] PCP - General 01/27/03 Plastic Finisher Relationship Specialty Start Date End Date Hanna Mathias MD [address] [place] [address] PCP - General 01/27/03 Plastic Finisher Relationship Specialty Start Date End Date Hanna Mathias MD [address] [place] [address] PCP - General 01/27/03 Plastic Finisher Relationship Specialty Start Date End Date Hanna Mathias MD [address] [phone] PCP - General 01/27/03 Plastic Finisher Relationship Specialty Start Date End Date Hanna Mathias MD [address] [phone] PCP - General 01/27/03 Plastic Finisher Relationship Specialty Start Date End Date Hanna Mathias MD [address] [place] [address] PCP - General 01/27/03 Plastic Finisher Relationship Specialty Start Date End Date Hanna Mathias MD [address] [phone] PCP - General Family Medicine 10/30/24 Plastic Finisher Relationship Specialty Start Date End Date Hanna Mathias MD [address] [place] [address] PCP - General 01/27/03 Plastic Finisher Relationship Specialty Start Date End Date Hanna Mathias MD [address] [place] [address] PCP - General 01/27/03 FOR RECORDS PERTAINING [...] BE BASED ON THE PRIMARY CLINICAL RECORDS. [facility] [employer] [facility]. provides no warranty or guarantee of the accuracy or completeness of information in this document.
--- NOTE | 2025-05-24 07:26 | ED.LOWEXI1 ---
HPI HPI - Extremity Injury (Lower) General Chief Complaint: Extremity Injury, Lower Stated Complaint: LE PAIN Time Seen by Provider: 05/24/25 07:14 Source: patient Mode of arrival: walk-in Limitations: no limitations History of Present Illness HPI Narrative: 80-year-old male is coming to the ER after he had an abrasion to his left lower extremity while he was driving his tractor, patient mentioned that he accidentally rubbed against a tractor and had abrasions to his left leg, this was sustained almost 3 to 4 days ago. He does not remember the last time he had a tetanus booster He also cleaned that area with hydrogen peroxide he has been putting some local antibiotic cream on it but he is noted that the redness is increasing and he presented to us for evaluation The patient had no fever no chills no pain no itching No other injuries Related Data Home Medications ?Medication ?Instructions ?Recorded ?Confirmed empagliflozin 10 mg tablet 10 mg PO Q24H 09/25/23 05/24/25 (Jardiance) glyburide micronized 6 mg tablet 6 mg PO Q12H 09/25/23 05/24/25 metformin 500 mg tablet 500 mg PO Q8H 09/25/23 01/31/25 oxycodone 10 mg tablet 10 mg PO PRN 09/25/23 01/31/25 pioglitazone 30 mg tablet 30 mg PO Q24H 09/25/23 01/31/25 liothyronine 5 mcg tablet 10 mcg PO QDAY 01/31/25 01/31/25 pantoprazole 40 mg tablet,delayed 40 mg PO QDAY 01/31/25 01/31/25 release Previous Rx's ?Medication ?Instructions ?Recorded ondansetron HCl 4 mg/5 mL oral 1.6 mg (2 mL) PO DAILY PRN nausea 09/25/23 solution and vomiting #10 mL amoxicillin 500 mg tablet 500 mg PO TID 10 days #30 tabs 05/24/25 doxycycline hyclate 100 mg tablet 100 mg PO BID 10 days #20 tabs 05/24/25 Allergies Allergy/AdvReac Type Severity Reaction Status Date / Time metoclopramide AdvReac Intermediate suicidal Verified 05/24/25 06:55 erythromycin base AdvReac Swelling Verified 05/24/25 06:55 of the Eye Opioid HPI Opioid Management Most Recent Pain and Opioid Data: Last Pain Scale 2 Today, 07:00 Review of Systems ROS Status of ROS 10 or more systems reviewed and unremarkable except as noted in history and below PFSH PFSH Social History Smoking status: Never smoker Little interest or pleasure in doing things: not at all Feeling down, depressed, or hopeless: not at all Exam Narrative Exam Narrative: Nurses notes and vital signs reviewed and patient is not hypoxic. Left lower extremity: The patient presenting with an abrasion almost 11 cm in length in the 2 cm in width that is longitudinal on the tibia, the abrasion superficial there is no depth to it and it is surrounded by almost half a centimeter of redness There is no drainage and no vascular injury detected General: Well-appearing and in no apparent distress. Skin: Warm, dry, no pallor noted. No rash. Head: Normocephalic, atraumatic. Neck: Supple, non-tender. Cardiovascular: Regular Rate and Rhythm without murmur, gallop or rub. Respiratory: No accessory muscle use or respiratory distress. GI: Abdomen is soft, non-distended. Normal bowel sounds. No masses appreciated. No tenderness to palpation. No rebound, guarding, or rigidity noted. Neurological: A&O x4. No cranial nerve dysfunction observed. Constitutional Vital Signs, click to edit/add: Last Vital Signs Temp 98.5 F 05/24/25 06:55 Pulse 68 05/24/25 06:55 Resp 16 05/24/25 06:55 BP 144/62 H 05/24/25 06:55 Pulse Ox 99 05/24/25 06:55 O2 Del Method Room Air 05/24/25 06:55 Course Vital Signs Vital signs: Vital Signs Temperature 98.5 F 05/24/25 06:55 Pulse Rate 68 05/24/25 06:55 Respiratory Rate 16 05/24/25 06:55 Blood Pressure 144/62 H 05/24/25 06:55 Pulse Oximetry 99 05/24/25 06:55 Oxygen Delivery Method Room Air 05/24/25 06:55 Temperature 98.5 F 05/24/25 06:55 Pulse Rate 68 05/24/25 06:55 Respiratory Rate 16 05/24/25 06:55 Blood Pressure 144/62 H 05/24/25 06:55 Pulse Oximetry 99 05/24/25 06:55 Oxygen Delivery Method Room Air 05/24/25 06:55 MDM - Extremity Injury (Lower) MDM Narrative Medical decision making narrative: The patient presented to us with a mild cellulitis and with his history of being diabetic addition to his age the patient will be covered with amoxicillin and doxycycline The patient had the abrasion marked and the patient was instructed about the importance of monitoring symptoms in case of fever or increasing redness that would cover the borders that were marked the patient to come back to the ER Patient also provided with a tetanus booster Wound care instruction provided to the patient too The patient is to follow up with primary care physician in next 2-3 days or to return to the emergency department should any of the signs or symptoms worsen or new symptoms develop. The patient agrees with the following Diagnosis and Treatment plan and the patient will be discharged home. Discharge Plan Discharge Chief Complaint: Extremity Injury, Lower Clinical Impression: Cellulitis Patient Disposition: Home, Self-Care Time of Disposition Decision: 07:26 Condition: Good Prescriptions / Home Meds: New amoxicillin 500 mg tablet 500 mg PO TID 10 Days Qty: 30 0RF doxycycline hyclate 100 mg tablet 100 mg PO BID 10 Days Qty: 20 0RF No Action Jardiance 10 mg tablet 10 mg PO Q24H glyburide micronized 6 mg tablet 6 mg PO Q12H metformin 500 mg tablet 500 mg PO Q8H oxycodone 10 mg tablet 10 mg PO PRN pioglitazone 30 mg tablet 30 mg PO Q24H ondansetron HCl 4 mg/5 mL solution 1.6 mg PO DAILY PRN (Reason: nausea and vomiting) Qty: 10 0RF pantoprazole 40 mg tablet,delayed release (DR/EC) 40 mg PO QDAY liothyronine 5 mcg tablet 10 mcg PO QDAY Print Language: Nigerien Instructions: Cellulitis (ED) Referrals: Jose Alberto Young MD [Primary Care Provider, Family Practice] - 1 week
[2025-05-24] MEDS: AMOXICILLIN 500 MG CAPSULE PO (07:37)
[2025-05-24] MEDS: DOXYCYCLINE MONOHYDRATE 100 MG CAPSULE PO (07:38)
[2025-05-24] MEDS: DIPHTH,PERTUSS(ACELL),TET VAC 0.5 ML SYRINGE IM (07:39)
== END 2025-05-24 07:45 | disposition home or self-care (01) ==
PROVIDERS: Emergency Provider Emergency Medicine; PCP Family Medicine
DX: L03.116 Cellulitis of left lower limb (principal); E11.9 Type 2 diabetes mellitus without complications; S80.812A Abrasion, left lower leg, initial encounter; X58.XXXA Exposure to other specified factors, initial encounter; Z79.84 Long term (current) use of oral hypoglycemic drugs
CPT/HCPCS: 90471; 90715; 99284

== ENCOUNTER 2025-06-05 09:46 | Outpatient (OUT) | payer MEDICARE, OTHER, SELFPAY ==
--- OUTSIDE RECORDS SUMMARY | 2025-06-05 09:49 | XMS_ITS | Clinical Summary ---
Author Organization [employer] s tem Address [id number] [address] [place] [address] Care Team Providers Care Driller And Broacher Name Role Phone Jose Alberto Young MD Primary Care Provider [phone] Allergies Active Allergy Reactions Criticality Noted Date [...] 11/20/2025 11/20/2024 Medical Devices Implanted Type Area Truck Driver Helper Device Identifier Shelf Expiration Date Model / Serial / Lot Lens Iol [id number] [facility] [id number] - [id number] - [id number] Implanted:Qty: 1 on 10/30/2024 by Adelina Stapleton MD at [facility] Lens Right: [employer] 02/10/2028 [id number] / [id number] / NA Lens Iol [id number] [facility] 249061 - [id number] - [id number] Implanted:Qty: 1 on 11/20/2024 by Adelina Stapleton MD at [facility] Lens [employer] 02/12/2028 [id number] / [id number] / N/A Insurance MEDICARE [facility] LIFE INSURANCE Advance Directives Documents on File Type Date Recorded Patient Telepathist Expl anation Durable Power of Business Partner 11/11/2024 8:31 AM Care Teams Driller And Broacher Relationship Specialty Start Date End Date Jose Alberto Young MD [address] [place] [address] PCP - General Family Medicine 10/30/24
--- OUTSIDE RECORDS SUMMARY | 2025-06-05 09:49 | XMS_ITS | Encounter Summary ---
Author Organization [facility] Address [address] [place], [place] [id number] Care Team Providers Care Manager Commercial Sales Name Role Phone Jose Alberto Young MD Primary Care Provider [phone] Source Comments In the event this information is protected by the Federal Confidentiality of Alcohol and Drug AbusePatient Records regulations: The Federal rules restrict any use of the information to criminally investigate or prosecute any alcohol or drug abuse patient.[facility] Encounter Details Date Type Department Care Team [...] Description 08/18/2025 10:15 AM EST Office Visit [facility] [address] [address] 6 month follow up with lab 08/18/2025 10:30 AM EST Visit (SP) Office Hematology/Oncology [address] [facility] [place] [address] APRN.SOCKET WELDER HELPER [address] [place] [address] 6 month follow up with lab 08/18/2025 11:00 AM EST [facility] Hematology/Oncology [address] [facility] [place] [address] 6 month follow up with lab documented as of this encounter Visit Diagnoses Not on filedocumented in this encounter Care Teams Manager Commercial Sales Relationship Specialty Start Date End Date Jose Alberto Young MD [address] [facility] [place] [address] PCP - General 01/27/03 documented as of this encounter
--- OUTSIDE RECORDS SUMMARY | 2025-06-05 09:49 | XMS_ITS | Clinical Summary ---
Author Organization [facility] Address [address] [place] [address] Care Team Providers Care Silver Cleaner Name Role Phone Unavailable Primary Care Provider [...]
--- OUTSIDE RECORDS SUMMARY | 2025-06-05 09:49 | XMS_ITS ---
Author Organization [facility] Address [address] [place], [place] [id number] Care Team Providers Care Airplane Pilot Photogrammetry Name Role Phone Jose Alberto Young MD Primary Care Provider [phone] Active Problems Problem Noted Date Diagnosed Date Stage 3 chronic kidney disea se, unspecified whether stage 3a or 3b CKD 03/06/2023 Elevated prostate specific antigen (PSA) 020 Outlet dysfunction constipation 10/20/2015 Perirectal skin irritation 10/20/2015 Anal bleeding 10/20/2015 Type 2 diabetes mellitus without complication termite helper current use of systemic steroids 10/20 [...]
--- OUTSIDE RECORDS SUMMARY | 2025-06-05 09:49 | XMS_ITS | Encounter Summary ---
Author Organization [facility] Address [address] [place], [place] [id number] Care Team Providers Care Director Social Service Name Role Phone Jose Alberto Young MD Primary Care Provider [phone] Source Comments In the event this information is protected by the Federal Confidentiality of Alcohol and Drug AbusePatient Records regulations: The Federal rules restrict any use of the information to criminally investigate or prosecute any alcohol or drug abuse patient.[facility] Reason for Visit * Reason Onset Date Comments Refill Request 06/01/2025 Encounter Details Date Type Department Care Team (Late st Contact Info) Description 06/01/2025 Refill [facility] [address] [place] [address] [place] [address] Kleber Plaza MD [address] [place] [address] Refill Request Social History Tobacco Use Types [...] is lower risk 4 03/06/2023 Data from: https://www.neighborhoodatlas.[facility]/. Last address used for calculation [address] [...] Description 08/18/2025 10:15 AM EST Office Visit [facility] [address] [facility] [address] 6 month follow up with lab 08/18/2025 10:30 AM EST Visit (SP) Office Hematology/Oncology [address] [facility] [address], MAGGIE.SHELF STOCKER [address] [facility] [address] 6 month follow up with lab 08/18/2025 11:00 AM [facility] Hematology/Oncology [address] [place] [address] [place] [address] 6 month follow up with lab documented as of this encounter Visit Diagnoses Not on filedocumented in this encounter Care Teams Director Social Service Relationship Specialty Start Date End Date Jose Alberto Young MD [address] [place] [address] PCP - General 01/27/03 documented as of this encounter
--- OUTSIDE RECORDS SUMMARY | 2025-06-05 09:49 | XMS_ITS | Clinical Summary ---
Author Organization [facility] Address [address] [place] [address] Phone Care Team Providers Care Photographic Spotter Name Role Phone Unavailable Primary Care Provider [...]
--- OUTSIDE RECORDS SUMMARY | 2025-06-05 09:49 | XMS_ITS | Encounter Summary ---
Author Organization [facility] Address [address] [place], [place] [phone] Care Team Providers Care Mine Motor Operator Name Role Phone Jose Alberto Young MD Primary Care Provider [phone] Source Comments In the event this information is protected by the Federal Confidentiality of Alcohol and Drug AbusePatient Records regulations: The Federal rules restrict any use of the information to criminally investigate or prosecute any alcohol or drug abuse patient.[facility] Reason for Visit * Reason Onset Date Comments Refill Request 04/30/2025 Encounter Details Date Type Department Care Team (Late st Contact Info) Description 04/30/2025 Refill [facility] [address] [place] [address] [place] [address] Kleber Plaza MD [address] [facility] [place] [address] Refill Request Social History Tobacco Use Types [...] is lower risk 4 03/06/2023 Data from: https://www.neighborhoodatlas.[facility]/. Last address used for calculation [...] Visit [facility] [address] [facility] [place] [address] 6 month follow up with lab 08/18/2025 10:30 AM EST Visit (SP) Office Hematology/Oncology [address] [facility] [place] [address], MAGGIE.BEET TOPPER [address] [facility] [place] [address] 6 month follow up with lab 08/18/2025 11:00 AM [facility] Hematology/Oncology [address] [place] [address] [place] [address] 6 month follow up with lab documented as of this encounter Visit Diagnoses Not on filedocumented in this encounter Care Teams Mine Motor Operator Relationship Specialty Start Date End Date Jose Alberto Young MD [address] [place] [address] PCP - General 01/27/03 documented as of this encounter
--- OUTSIDE RECORDS SUMMARY | 2025-06-05 09:49 | XMS_ITS | Clinical Summary ---
Author Organization [facility] Address [address] [place], [place] [address] Care Team Providers Care Irrigation Foreman Name Role Phone Jose Alberto Young MD Primary Care Provider [phone] Allergies Active Allergy Reactions Criticality Noted [...] on and 7 days off. 21 capsule 06/01/20 25 2:01 PM EDT 025 Active lenalidomide (REVLIMID) 5 mg capsule Take 1 capsule by mouth daily for 21 days on and 7 days off. 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 Multiple myeloma 09/25/2012 Encounters Date Type Department Care Team Description 06/01/2025 Refill [facility] [address] [place] [address] Kleber Plaza MD Refill Request 04/30/2025 Refill [facility] [address] [place] [address] Kleber Plaza MD Refill Request 03/31/2025 Refill [facility] [address] [place] [address] Kleber Plaza MD Refill Request from Last 3 Months Immunizations Immunization Administration Dates Next Due COVID-19 original vaccine, a ge 12+ yr, monovalent ([employer] - PURPLE TOP) 06/28/2021,11/11/2020,10/22/2020 COVID-19 vaccine, unspecified [...] is lower risk 4 03/06/2023 Data from: https://www.neighborhoodatlas.medicine.[facility].edu/. Last address used for calculation [address] [...] 08/18/2025 10:15 AM EST Office Visit [facility] [address] [place], [place] [id number] 6 month follow up with lab 08/18/2025 10:30 AM EST Visit (SP) Office Hematology/Oncology [address] [place] [address], VICE PRESIDENT OF COMMUNICATIONS.RETAIL PRICING COORDINATOR [address] [place] [address] 6 month follow up with lab 08/18/2025 11:00 AM [facility] Hematology/Oncology [address] [facility] [place] [address] 6 month follow up with lab Health [...] COMPREHENSIVE METABOLIC PANEL (02/17/2025 11:02 AM EDT) Protein, Total 7.0 6.3 - 8.0 g/dL 02/17/2025 2:54 PM EDT [facility] Comment:Corrected result: Pr eviously reported as 6.6 g/dL on 02/17/2025 at 11:40 AM EDT. Albumin 4.2 3.9 - 4.9 g/dL 02/17/2025 2:54 PM EDT [facility] Calcium, Total 8.5 8.5 - 10.2 mg/dL 02/17/2025 2:54 PM EDT [facility] Comment:Corrected result: Pr eviously reported as 8.3 mg/dL on 02/17/2025 at 11:40 AM EDT. Bilirubin, Total 1.7(H) 0.2 - 1.3 mg/dL 02/17/2025 2:54 PM EDT [facility] Alkaline Phosphatase 95 38 - 113 U/L 02/17/2025 2:54 PM EDT [facility] Comment:Corrected result: Pr eviously reported as 99 U/L on 02/17/2025 at 11:40 AM EDT. AST 22 14 - 40 U/L 02/17/2025 2:54 PM EDT [facility] Comment:Corrected result: Pr eviously reported as 15 U/L on 02/17/2025 at 11:40 AM EDT. ALT 15 10 - 54 U/L 02/17/2025 2:54 PM EDT [facility] Comment:Corrected result: Pr eviously reported as 12 U/L on 02/17/2025 at 11:40 AM EDT. Glucose 185(H) 74 - 99 mg/dL 02/17/2025 2:54 PM EDT [facility] Comment: The Indian Diabetes Association (ADA) provides guidance for cutoff [...] Standards of Medical Care in Diabetes 2016, Indian Diabetes Association. Diabetes Care. 2016.39(Suppl 1). Corrected result: Previously reported as 189 mg/dL on 02/17/2025 at 11:40 AM EDT. BUN 23 9 - 24 mg/dL 02/17/2025 2:54 PM EDT [facility] Comment:Corrected result: Pr eviously reported as 25 mg/dL on 02/17/2025 at 11:40 AM EDT. Creatinine 1.60(H) 0.73 - 1.22 mg/dL 02/17/2025 2:54 PM EDT [facility] Sodium 138 136 - 144 mmol/L 02/17/2025 2:54 PM EDT [facility] Potassium 4.6 3.7 - 5.1 mmol/L 02/17/2025 2:54 PM EDT [facility] Chloride 101 98 - 107 mmol/L 02/17/2025 2:54 PM EDT [facility] CO2 26 22 - 30 mmol/L 02/17/2025 2:54 PM EDT [facility] Anion Gap 11 8 - 15 mmol/L 02/17/2025 2:54 PM EDT [facility] Estimated Glomerular Filtration Rate 44(L) >=60 mL/min/1. 73m 02/17/2025 2:54 PM EDT [facility] Comment:Estimated Glomerular Filtration Rate [...] Uriel Gunter MD LABORATORY Final Re sult [facility] [address] [address], [place] * (ABNORMAL) COMPLETE BLOOD COUNT AND DIFFERENTIAL (02/17/2025 11:02 AM EDT) WBC 5.51 3.70 - 11.00 k/uL 02/17/2025 11:15 AM EDT [facility] RBC 4.42 4.20 - 6.00 m/uL 02/17/2025 11:15 AM EDT [facility] Hemoglobin 15.4 13.0 - 17.0 g/dL 02/17/2025 11:15 AM EDT [facility] Hematocrit 44.2 39.0 - 51.0 % 02/17/2025 11:15 AM EDT [facility] MCV 100.0 80.0 - 100.0 fL 02/17/2025 11:15 AM EDT [facility] MCH 34.8(H) 26.0 - 34.0 pg 02/17/2025 11:15 AM EDT [facility] MCHC 34.8 30.5 - 36.0 g/dL 02/17/2025 11:15 AM EDT [facility] RDW-CV 14.5 11.5 - 15.0 % 02/17/2025 11:15 AM EDT [facility] Platelet Count 217 150 - 400 k/uL 02/17/2025 11:15 AM EDT [facility] MPV 10.6 9.0 - 12.7 fL 02/17/2025 11:15 AM EDT [facility] Neutrophils % 56.6 % 02/17/2025 11:15 AM EDT [facility] Abs Neut 3.12 1.45 - 7.50 k/uL 02/17/2025 11:15 AM EDT [facility] Lymphocytes % 19.8 % 02/17/2025 11:15 AM EDT [facility] Abs Lymph 1.09 1.00 - 4.00 k/uL 02/17/2025 11:15 AM EDT [facility] Monocytes % 14.5 % 02/17/2025 11:15 AM EDT [facility] Abs [place] 0.80 <0.87 k/uL 02/17/2025 11:15 AM EDT [facility] Eosinophils % 6.9 % 02/17/2025 11:15 AM EDT [facility] Abs Eosin 0.38 <0.46 k/uL 02/17/2025 11:15 AM EDT [facility] Basophils % 1.5 % 02/17/2025 11:15 AM EDT [facility] Abs Baso 0.08 <0.11 k/uL 02/17/2025 11:15 AM EDT [facility] Immature Granulocytes % 0.7 % 02/17/2025 11:15 AM EDT [facility] Abs Immature Gran 0.04 <0.10 k/uL 02/17/2025 11:15 AM EDT [facility] NRBC 0.0 /100 WBC 02/17/2025 11:15 AM EDT [facility] Absolute nRBC <0.01 <0.01 k/uL 02/17/2025 11:15 AM EDT [facility] Diff Type Auto 02/17/2025 11:15 AM EDT [facility] Blood BLOOD SPECIMEN / Unknown Venipuncture / Unknown 02/17/2025 11:02 AM EDT 02/17/2025 11:02 AM EDT us Uriel Gunter MD LABORATORY Final Re sult [facility] [address] [place] [address] from Last 3 Months or Most Recently Relevant to Health [place] [phone] INS[employer]ANCE Care Teams Irrigation Foreman Relationship Specialty Start Date End Date Jose Alberto Young MD [address] [place] [address] PCP - General 01/27/03
--- OUTSIDE RECORDS SUMMARY | 2025-06-05 09:49 | XMS_ITS | Encounter Summary ---
Author Organization [facility] Address [address] [place], [place] [phone] Care Team Providers Care Sheet Folder Name Role Phone Jose Alberto Young MD Primary Care Provider [phone] Source Comments In the event this information is protected by the Federal Confidentiality of Alcohol and Drug AbusePatient Records regulations: The Federal rules restrict any use of the information to criminally investigate or prosecute any alcohol or drug abuse patient.[facility] Reason for Visit * Reason Onset Date Comments Refill Request 03/31/2025 Encounter Details Date Type Department Care Team (Late st Contact Info) Description 03/31/2025 Refill [facility] [address] [place] [address] [place] [address] Kleber Plaza MD [address] [place] [address] Refill Request Social History Tobacco Use Types [...] lower risk 4 03/06/2023 Data from: https://www.neighborhoodatlas.[facility]/. Last address used for calculation [...] Description 08/18/2025 10:15 AM EST Office Visit [facility] [address] [facility] [place] [address] 6 month follow up with lab 08/18/2025 10:30 AM EST Visit (SP) Office Hematology/Oncology [address] [facility] [place] [address], MAGGIE.LOGISTICS COORDINATOR [address] [facility] [place] [address] 6 month follow up with lab 08/18/2025 11:00 AM [facility] Hematology/Oncology [address] [place] [address] [place] [address] 6 month follow up with lab documented as of this encounter Visit Diagnoses Not on filedocumented in this encounter Care Teams Sheet Folder Relationship Specialty Start Date End Date Jose Alberto Young MD [address] [place] [address] PCP - General 01/27/03 documented as of this encounter
--- NOTE | 2025-06-05 09:53 | XR_ITS ---
The [address] [address] Patient Name: MATTHEW RAMESH MRN: [id number] date: 1945 Sex: M Assigned Patient Location: [facility] Current Patient Location: [facility] Accession/Order Number: [id number] Exam Date: 06/05/2025 09:55 Report Date: 06/05/2025 10:48 At the request of: HANNA MATHIAS MD Procedure: XR chest 2V CLINICAL DATA: Patient fell 3 days ago onto left side. Mid left lateral rib pain. PA AND LATERAL CHEST: COMPARISON: None There is no focal parenchymal consolidation, effusion or pneumothorax. The cardiac, hilar and mediastinal silhouettes are within normal limits. There is no vascular congestion. The bony structures are osteopenic. There is thoracolumbar levoscoliotic curvature. Partially imaged thoracolumbar fusion hardware is seen. The right T12 pedicle screw is fractured. The nery on the left is discontinuous at T12-L1. There is endplate spurring at the spine. XR/XR chest 2V IMPRESSION: NO ACUTE CARDIOPULMONARY ABNORMALITY. LEFT RIBS - 3 views COMPARISON: None AP and both oblique views were obtained. There is osteopenia. No acute displaced fractures or bony destruction are noted. No soft tissue abnormalities are seen. IMPRESSION: NO ACUTE RIB INJURY. Impression dictated by: Meredith Medrano M.D. 06/05/2025 10:48 AM Dictation Location: [place] [address] Electronically authenticated by: [id number] Y Date: 06/05/2025 10:48
--- NOTE | 2025-06-05 09:53 | XR_ITS ---
The [address] [address] Patient Name: MATTHEW RAMESH MRN: [id number] date: 1945 Sex: M Assigned Patient Location: [facility] Current Patient Location: [facility] Accession/Order Number: [id number] Exam Date: 06/05/2025 09:55 Report Date: 06/05/2025 10:48 At the request of: HANNA MATHIAS MD Procedure: XR chest 2V CLINICAL DATA: Patient fell 3 days ago onto left side. Mid left lateral rib pain. PA AND LATERAL CHEST: COMPARISON: None There is no focal parenchymal consolidation, effusion or pneumothorax. The cardiac, hilar and mediastinal silhouettes are within normal limits. There is no vascular congestion. The bony structures are osteopenic. There is thoracolumbar levoscoliotic curvature. Partially imaged thoracolumbar fusion hardware is seen. The right T12 pedicle screw is fractured. The nery on the left is discontinuous at T12-L1. There is endplate spurring at the spine. XR/XR ribs LT 2V IMPRESSION: NO ACUTE CARDIOPULMONARY ABNORMALITY. LEFT RIBS - 3 views COMPARISON: None AP and both oblique views were obtained. There is osteopenia. No acute displaced fractures or bony destruction are noted. No soft tissue abnormalities are seen. IMPRESSION: NO ACUTE RIB INJURY. Impression dictated by: Meredith Medrano M.D. 06/05/2025 10:48 AM Dictation Location: [place] [address] Electronically authenticated by: [id number] Y Date: 06/05/2025 10:48
--- OUTSIDE RECORDS SUMMARY | 2025-06-05 10:02 | XMS_ITS | CCD ---
Author Organization [facility] Care Team Providers Care Doubler Operator Name Role Phone HANNA MATHIAS Primary Care Unavailable SELF, REFERRED Referring Unavailable TRISH CEVALLOS Admitting Unavailable FRANCIS SAVAGE Attending Unavailable [place] Procedure Practitioner Unavailab DANIELA Pennington Surgeon Unavailable LA Procedure Practitioner Unavailab FRANCIS Cruz Surgeon Unavailable [...] Provider UnavailHanna Villafuerte MD Primary Care Provider [phone] STEW HANNA M Referring Unavailable MARY ZAARTE Attending Unavailable MARY ZARATE Referring Unavailable BERNARDO [...] HOY, HANNA M Primary Care Unavailable URIEL GUTNER Referring Unavailable HOY, HANNA M Primary Care [...] Tobramycin Drug Allergy 0 Other: See Comments [facility] Macrolides (antibiotic) (2 sources) Azithromycin Drug Allergy 7 Unknown [facility] Sulfonamides (antibiotic) (1 source) Sulfonamides (Antibiotic) Drug Allergy 2 Unknown [facility] (4 sources) Azithromycin; Translations: [AZITHROMYCIN] Drug Allergy 8 [facility] (3 sources) Sulfonamides (Antibiotic); Translations: [SULFA (SULFONAMIDE ANTIBIOTICS)] Drug allergy (disorder) 2 [facility] (20 sources) Azithromycin Drug Allergy 8 Unknown, Other (See Comments) [facility] (20 sources) Erythromycin; Translations: [ERYTHROMYCIN] Drug Allergy 7 Unknown [facility] (20 sources) Sulfonamides (Antibiotic) Drug Allergy 2 Unknown, Other (See Comments) [facility] (20 sources) Tobramycin; Translations: [TOBRAMYCIN] Drug Allergy 0 Other: See Comments, GI Disturbance [facility] (1 source) Erythromycin Drug Allergy [facility] (2 sources) Neomycin; Translations: [NEOMYCIN] Drug Allergy 5 Other (See Comments) [facility] (2 sources) Pseudoephedrine; Translations: [PSEUDOEPHEDRINE ] Drug Allergy 5 Other (See Comments) [facility] Medications Current Medications Medication Drug Class(es) Dates [...] Comment on above: Take 1 capsule by [facility] once daily. hydrocortisone 10 mg/ml / neomycin 3.5 mg/ml / polymyxin b 96421 unt/ml otic solution (20 sources) Aminoglycoside Antibacterial, [...] Long-term current use of systemic steroid; Translations: [[employer] (current) use of systemic steroids] Onset: 10-20-2015 [...] (Bld)on 02-17-2025 Basophils (Bld) [#/Vol] 0.08 10*3/uL [facility] Basophils/100 WBC (Bld) 1.5 % [facility] Differential cell count method Nom (Bld) Auto [facility] Eosinophils (Bld) [#/Vol] 0.38 10*3/uL [facility] Eosinophils/100 WBC (Bld) 6.9 % [facility] Erythrocyte distribution width (RBC) [Ratio] 14.5 % 11.5 - 15.0 % [facility] Hematocrit (Bld) [Volume fraction] 44.2 % 39.0 - 51.0 % [facility] Hemoglobin (Bld) [Mass/Vol] 15.4 g/dL 13.0 - 17.0 g/dL [facility] Immature granulocytes (Bld) [#/Vol] 0.04 10*3/uL [facility] Immature granulocytes/100 WBC (Bld) 0.7 % [facility] Interpretation and review of laboratory results Abnormal [place] [facility] Lymphocytes (Bld) [#/Vol] 1.09 10*3/uL [facility] Lymphocytes/100 WBC (Bld) 19.8 % [facility] MCH (RBC) [Entitic mass] 34.8 pg High 26.0 - 34.0 pg [facility] MCHC (RBC) [Mass/Vol] 34.8 g/dL 30.5 - 36.0 g/dL [facility] MCV (RBC) [Entitic vol] 100 fL 80.0 - 100.0 fL [facility] Monocytes (Bld) [#/Vol] 0.8 10*3/uL [facility] Monocytes/100 WBC (Bld) 14.5 % [facility] Neutrophils (Bld) [#/Vol] 3.12 10*3/uL [facility] Neutrophils/100 WBC (Bld) 56.6 % [facility] Nucleated RBC (Bld) [#/Vol] [facility] Nucleated RBC/100 WBC (Bld) [Ratio] 0 % /100 WBC [facility] Platelet mean volume (Bld) [Entitic vol] 10.6 fL 9.0 - 12.7 fL [facility] Platelets (Bld) [#/Vol] 217 10*3/uL [facility] RBC (Bld) [#/Vol] 4.42 10*6/uL 4.20 - 6.0 0 m/uL [facility] WBC (Bld) [#/Vol] 5.51 10*3/uL [facility] Basophils (Bld) [#/Vol] 0.08 10*3/uL Normal <0.11 [facility] Comment on above: Order Comment: Speci men Type: BLOOD SPECIMENOrdering Facility: [facility] Address: [address] [place] [address] Performed By: #### 5 7021-8 ####[facility] LABCLIA [id number] [place] [address] Basophils/100 WBC (Bld) 1.5 % Normal [facility] Comment on above: Order Comment: Speci men Type: BLOOD SPECIMENOrdering Facility: [facility] Address: [address] [place] [address] Performed By: #### 5 7021-8 ####[facility] LABCLIA [id number] [place] [address] Differential cell count method Nom (Bld) Auto Normal [facility] Comment on above: Order Comment: Speci men Type: BLOOD SPECIMENOrdering Facility: [facility] Address: [address] [place] [address] Performed By: #### 5 7021-8 ####[facility] LABCLIA [id number] [place] [address] Eosinophils (Bld) [#/Vol] 0.38 10*3/uL Normal <0.46 [facility] Comment on above: Order Comment: Speci men Type: BLOOD SPECIMENOrdering Facility: [facility] Address: [address] [place] [address] Performed By: #### 5 7021-8 ####[facility] LABCLIA [id number] [place] [address] Eosinophils/100 WBC (Bld) 6.9 % Normal [facility] Comment on above: Order Comment: Speci men Type: BLOOD SPECIMENOrdering Facility: [facility] Address: [address] [place] [address] Performed By: #### 5 7021-8 ####[facility] LABCLIA [id number] [place] [address] Erythrocyte distribution width (RBC) [Ratio] 14.5 % Normal 11.5-15.0 [facility] Comment on above: Order Comment: Speci men Type: BLOOD SPECIMENOrdering Facility: [facility] Address: [address] [place] [address] Performed By: #### 5 7021-8 ####[facility] LABIA [id number] [place] [address] Hematocrit (Bld) [Volume fraction] 44.2 % Normal 39.0-51.0 [facility] Comment on above: Order Comment: Speci men Type: BLOOD SPECIMENOrdering Facility: [facility] Address: [address] [place] [address] Performed By: #### 5 7021-8 ####[facility] LABIA [id number] [place] [address] Hemoglobin (Bld) [Mass/Vol] 15.4 g/dL Normal 13.0-17.0 [facility] Comment on above: Order Comment: Speci men Type: BLOOD SPECIMENOrdering Facility: [facility] Address: [address] [place] [address] Performed By: #### 5 7021-8 ####[facility] LABIA [id number] [place] [address] Immature granulocytes (Bld) [#/Vol] 0.04 10*3/uL Normal <0.10 [facility] Comment on above: Order Comment: Speci men Type: BLOOD SPECIMENOrdering Facility: [facility] Address: [address] [place] [address] Performed By: #### 5 7021-8 ####[facility] LABCLIA [id number] [place] [address] Immature granulocytes/100 WBC (Bld) 0.7 % Normal [facility] Comment on above: Order Comment: Speci men Type: BLOOD SPECIMENOrdering Facility: [facility] Address: [address] [place] [address] Performed By: #### 5 7021-8 ####[facility] LABCLIA [id number] [place] [address] Lymphocytes (Bld) [#/Vol] 1.09 10*3/uL Normal 1.00-4.00 [facility] Comment on above: Order Comment: Speci men Type: BLOOD SPECIMENOrdering Facility: [facility] Address: [address] [place] [address] Performed By: #### 5 7021-8 ####[facility] LABCLIA [id number] [place] [address] Lymphocytes/100 WBC (Bld) 19.8 % Normal [facility] Comment on above: Order Comment: Speci men Type: BLOOD SPECIMENOrdering Facility: [facility] Address: [address] [place] [address] Performed By: #### 5 7021-8 ####[facility] LABCLIA [id number] [place] [address] MCH (RBC) [Entitic mass] 34.8 pg High 26.0-34.0 [facility] Comment on above: Order Comment: Speci men Type: BLOOD SPECIMENOrdering Facility: [facility] Address: [address] [place] [address] Performed By: #### 5 7021-8 ####[facility] LABCLIA [id number] [place] [address] MCHC (RBC) [Mass/Vol] 34.8 g/dL Normal 30.5-36.0 [facility] Comment on above: Order Comment: Speci men Type: BLOOD SPECIMENOrdering Facility: [facility] Address: [address] [place] [address] Performed By: #### 5 7021-8 ####[facility] LABCLIA [id number] [place] [address] MCV (RBC) [Entitic vol] 100.0 fL Normal 80.0-100.0 [facility] Comment on above: Order Comment: Speci men Type: BLOOD SPECIMENOrdering Facility: [facility] Address: [address] [place] [address] Performed By: #### 5 7021-8 ####[facility] LABCLIA [id number] [place] [address] Monocytes (Bld) [#/Vol] 0.80 10*3/uL Normal <0.87 [facility] Comment on above: Order Comment: Speci men Type: BLOOD SPECIMENOrdering Facility: [facility] Address: [address] [place] [address] Performed By: #### 5 7021-8 ####[facility] LABCLIA [id number] [place] [address] Monocytes/100 WBC (Bld) 14.5 % Normal [facility] Comment on above: Order Comment: Speci men Type: BLOOD SPECIMENOrdering Facility: [facility] Address: [address] [place] [address] Performed By: #### 5 7021-8 ####[facility] LABCLIA [id number] [place] [address] Neutrophils (Bld) [#/Vol] 3.12 10*3/uL Normal 1.45-7.50 [facility] Comment on above: Order Comment: Speci men Type: BLOOD SPECIMENOrdering Facility: [facility] Address: [address] [place] [address] Performed By: #### 5 7021-8 ####[facility] LABCLIA [id number] [place] [address] Neutrophils/100 WBC (Bld) 56.6 % Normal [facility] Comment on above: Order Comment: Speci men Type: BLOOD SPECIMENOrdering Facility: [facility] Address: [address] [place] [address] Performed By: #### 5 7021-8 ####[facility] LABCLIA [id number] [place] [address] Nucleated RBC (Bld) [#/Vol] 10*3/uL Normal <0.01 [facility] Comment on above: Order Comment: Speci men Type: BLOOD SPECIMENOrdering Facility: [facility] Address: [address] [place] [address] Performed By: #### 5 7021-8 ####[facility] LABCLIA [id number] [place] [address] Nucleated RBC/100 WBC (Bld) [Ratio] 0.0 /100 WBC Normal [facility] Comment on above: Order Comment: Speci men Type: BLOOD SPECIMENOrdering Facility: [facility] Address: [address] [place] [address] Performed By: #### 5 7021-8 ####[facility] LABCLIA [id number] [place] [address] Platelet mean volume (Bld) [Entitic vol] 10.6 fL Normal 9.0-12.7 [facility] Comment on above: Order Comment: Speci men Type: BLOOD SPECIMENOrdering Facility: [facility] Address: [address] [place] [address] Performed By: #### 5 7021-8 ####[facility] LABCLIA [id number] [place] [address] Platelets (Bld) [#/Vol] 217 10*3/uL Normal 150-400 [facility] Comment on above: Order Comment: Speci men Type: BLOOD SPECIMENOrdering Facility: [facility] Address: [address] [place] [address] Performed By: #### 5 7021-8 ####[facility] LABIA [id number] [place] [address] RBC (Bld) [#/Vol] 4.42 10*6/uL Normal 4.20-6.[address] [facility] Comment on above: Order Comment: Speci men Type: BLOOD SPECIMENOrdering Facility: [facility] Address: [address] [place], [place] [address] Performed By: #### 5 7021-8 ####[facility] LABIA [id number] [place] [address] WBC (Bld) [#/Vol] 5.51 10*3/uL Normal 3.70-11.[address] [facility] Comment on above: Order Comment: Speci men Type: BLOOD SPECIMENOrdering Facility: 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 Normal [facility] metabolic 2000 panelon 02-17-2025 Albumin [Mass/Vol] 4.2 g/dL 3.9 - 4.9 g/dL [facility] ALP [Catalytic activity/Vol] 95 U/L 38 - 113 U/L [facility] Comment on above: Corrected result: Pr eviously reported as 99 U/L on 02/17/2025 at 11:40 AM EDT. ALT [Catalytic activity/Vol] 15 U/L 10 - 54 U/L [facility] Comment on above: Corrected result: Pr eviously reported as 12 U/L on 02/17/2025 at 11:40 AM EDT. Anion gap [Moles/Vol] 11 mmol/L 8 - 15 mmol/L [facility] AST [Catalytic activity/Vol] 22 U/L 14 - 40 U/L [facility] Comment on above: Corrected result: Pr eviously reported as 15 U/L on 02/17/2025 at 11:40 AM EDT. Bilirubin [Mass/Vol] 1.7 mg/dL High 0.2 - 1.3 mg/dL [facility] Calcium [Mass/Vol] 8.5 mg/dL 8.5 - 10. 2 mg/dL [facility] Comment on above: Corrected result: Pr eviously reported as 8.3 mg/dL on 02/17/2025 at 11:40 AM EDT. Chloride [Moles/Vol] 101 mmol/L 98 - 107 mmol/L [facility] CO2 [Moles/Vol] 26 mmol/L 22 - 30 mmol/L [facility] Creatinine [Mass/Vol] 1.6 mg/dL High 0.73 - 1.22 mg/dL [facility] GFR/1.73 sq M.predicted among non-blacks MDRD (S/P/Bld) [Vol rate/Area] 44 mL/min/{1.73_m2} Low - PINF [facility] inic Comment on above: Estimated Glomerular [...] 185 mg/dL High 74 - 99 mg/dL [facility] Comment on above: The [place] Di[employer] Association (ADA) provides guidance for [...] Standards of Medical Care in Diabetes 2016, [place] [employer]. Diabetes Care. 2016.39(Suppl 1). Corrected result: Previously reported as 189 mg/dL on 02/17/2025 at 11:40 AM EDT. Interpretation and review of laboratory results Abnormal [place] [facility] Potassium [Moles/Vol] 4.6 mmol/L 3.7 - 5.1 mmol/L [facility] Protein [Mass/Vol] 7 g/dL 6.3 - 8.0 g/dL [facility] Comment on above: Corrected result: Pr eviously reported as 6.6 g/dL on 02/17/2025 at 11:40 AM EDT. Sodium [Moles/Vol] 138 mmol/L 136 - 144 mmol/L [facility] Urea nitrogen [Mass/Vol] 23 mg/dL 9 - 24 mg/dL [facility] Comment on above: Corrected result: Pr eviously reported as 25 mg/dL on 02/17/2025 at 11:40 AM EDT. [place] [facility] Albumin [Mass/Vol] 4.2 g/dL Normal 3.9-4.9 [facility] Comment on above: Order Comment: Speci men Type: BLOOD SPECIMENOrdering Facility: [facility] Address: [address] [place] [address] [place] [address] Performed By: #### 2 4323-8 ####[facility] LABCLIA [id number] [place] [address] [place] ALP [Catalytic activity/Vol] 95 U/L Normal 38-113 [facility] Comment on above: Order Comment: Speci men Type: BLOOD SPECIMENOrdering Facility: [facility] Address: [address] [place] [address] Result Comment: Kd ected result: Previously reported as 99 U/L on 02/17/2025 at 11:40 AM EDT. Performed By: #### 2 4323-8 ####[facility] LABCLIA [id number] [place] [address] [place] ALT [Catalytic activity/Vol] 15 U/L Normal 10-54 [facility] Comment on above: Order Comment: Speci men Type: BLOOD SPECIMENOrdering Facility: [facility] Address: [address] [place] [address] Result Comment: Kd ected result: Previously reported as 12 U/L on 02/17/2025 at 11:40 AM EDT. Performed By: #### 2 4323-8 ####[facility] LABIA [id number] [place] [address] [place] Anion gap [Moles/Vol] 11 mmol/L Normal 8-15 [facility] Comment on above: Order Comment: Speci men Type: BLOOD SPECIMENOrdering Facility: [facility] Address: [address] [place] [address] Performed By: #### 2 4323-8 ####[facility] LABCLIA [id number] [place] [address] [place] AST [Catalytic activity/Vol] 22 U/L Normal 14-40 [facility] Comment on above: Order Comment: Speci men Type: BLOOD SPECIMENOrdering Facility: [facility] Address: [address] [place] [address] Result Comment: Kd ected result: Previously reported as 15 U/L on 02/17/2025 at 11:40 AM EDT. Performed By: #### 2 4323-8 ####[facility] LABCLIA [id number] [address] [place] [address] [place] Bilirubin [Mass/Vol] 1.7 mg/dL High 0.2-1.3 [facility] Comment on above: Order Comment: Speci men Type: BLOOD SPECIMENOrdering Facility: [facility] Address: [address] [place] [address] Performed By: #### 2 4323-8 ####[facility] LABCLIA [id number] [place] [address] [place] Calcium [Mass/Vol] 8.5 mg/dL Normal 8.5-10.2 [facility] Comment on above: Order Comment: Speci men Type: BLOOD SPECIMENOrdering Facility: [facility] Address: [address] [place] [address] Result Comment: Kd ected result: Previously reported as 8.3 mg/dL on 02/17/2025 at 11:40 AM EDT. Performed By: #### 2 4323-8 ####[facility] LABCLIA [id number] [place] [address] [place] Chloride [Moles/Vol] 101 mmol/L Normal 98-107 [facility] Comment on above: Order Comment: Speci men Type: BLOOD SPECIMENOrdering Facility: [facility] Address: [address] [place] [address] Performed By: #### 2 4323-8 ####[facility] LABCLIA [id number] ED [facility] [place] [address] [place] CO2 [Moles/Vol] 26 mmol/L Normal 22-30 [facility] Comment on above: Order Comment: Speci men Type: BLOOD SPECIMENOrdering Facility: [facility] Address: [address] [place] [address] Performed By: #### 2 4323-8 ####[facility] LABCLIA [id number] ED [facility] [place] [address] [place] Creatinine [Mass/Vol] 1.60 mg/dL High 0.73-1.22 [facility] Comment on above: Order Comment: Michelle bueno Type: BLOOD SPECIMENOrdering Facility: [facility] Address: [address] [place] [address] Performed By: #### 2 4323-8 ####[facility] LABCLIA [id number] [place] [address] [place] Creatinine and Glomerular filtration rate.predicted panel (S/P/Bld) 44 mL/min/1.73m??? Low >=60 [facility] Comment on above: Order Comment: Michelle bueno Type: BLOOD SPECIMENOrdering Facility: [facility] Address: [address] [place] [address] Result Comment: Chanda mated Glomerular Filtration Rate [...] 2 4323-8 ####[facility] LABCLIA [id number] [place] [address] [place] Glucose [Mass/Vol] 185 mg/dL High 74-99 [facility] Comment on above: Order Comment: Michelle bueno Type: BLOOD SPECIMENOrdering Facility: [facility] Address: [address] [place] [address] Result Comment: The [place] Diabetes Association (ADA) provides guidance for cutoff [...] Standards of Medical Care in Diabetes 2016, [place] [employer]. Diabetes Care. 2016.39(Suppl 1). Corrected result: Previously reported as 189 mg/dL on 02/17/2025 at 11:40 AM EDT. Performed By: #### 2 4323-8 ####[facility] LABCLIA [id number] [address] [address] [place] Potassium [Moles/Vol] 4.6 mmol/L Normal 3.7-5.1 [facility] Comment on above: Order Comment: Speci men Type: BLOOD SPECIMENOrdering Facility: [facility] Address: [address] [place], [place] [address] Performed By: #### 2 4323-8 ####[facility] LABCLIA [id number] [address] [address] [place] Protein [Mass/Vol] 7.0 g/dL Normal 6.3-8.0 [facility] Comment on above: Order Comment: Speci men Type: BLOOD SPECIMENOrdering Facility: [facility] Address: [address] [place] [address] Result Comment: Kd ected result: Previously reported as 6.6 g/dL on 02/17/2025 at 11:40 AM EDT. Performed By: #### 2 4323-8 ####[facility] LABIA [id number] [address] [address] [place] Sodium [Moles/Vol] 138 mmol/L Normal 136-144 [facility] Comment on above: Order Comment: Speci men Type: BLOOD SPECIMENOrdering Facility: [facility] Address: [address] [place], [place] [address] Performed By: #### 2 4323-8 ####[facility] LABCLIA [id number] [address] [address] [place] Urea nitrogen [Mass/Vol] 23 mg/dL Normal 9-24 [facility] Comment on above: Order Comment: Speci men Type: BLOOD SPECIMENOrdering Facility: [facility] Address: [address] [place] [address] Result Comment: Kd ected result: Previously reported as 25 mg/dL on 02/17/2025 at 11:40 AM EDT. Performed By: #### 2 4323-8 ####[facility] LABCLIA [id number] [address] [place] [address] [facility] IMMUNOFIXATION SCREEN, SERUM on 02-17-2025 INTERPRETATION (MPA) Atypical restricted bands are present in the IgG and kappa regions. Consistent with IgG kappa monoclonal gammopathy. Normal [facility] Comment on above: Order Comment: Speci men Type: BLOOD SPECIMENOrdering Facility: [facility] Address: [address] [place] [address] Performed By: #### I FESC ####[facility] LABIA [id number] [address], [address] [place] MPA RESULT M protein is present. Abnormal No M p rotein is identified. [facility] Comment on above: Order Comment: Speci men Type: BLOOD SPECIMENOrdering Facility: [facility] Address: [address] [place] [address] Performed By: #### I FESC ####[facility] LABCLIA [id number] [address] [place] [address] [facility] [place] STAFF REVIEW ([facility]) Reviewed by Donaldo Rivas MD, Ph.D ([id number]) Normal [facility] Comment on above: Order Comment: Speci men Type: BLOOD SPECIMENOrdering Facility: [facility] Address: [address] [place] [address] Performed By: #### I FESC ####[facility] LABIA [id number] [address], [facility] [place] IMMUNOGLOBULINS,IGG,IGA,IGMo n 02-17-2025 IgA [Mass/Vol] 118 mg/dL Normal 70-400 [facility] Comment on above: Order Comment: Speci men Type: BLOOD SPECIMENOrdering Facility: [facility] Address: [address] [place] [address] Performed By: #### S ERIMM ####[facility] LABCLIA [id number] [place] [address] [place] IgG [Mass/Vol] 1245 mg/dL Normal 700-1600 [facility] Comment on above: Order Comment: Speci men Type: BLOOD SPECIMENOrdering Facility: [facility] Address: [address] [place] [address] Performed By: #### S ERIMM ####[facility] LABCLIA [id number] [place] [address] [place] IgM [Mass/Vol] 21 mg/dL Low 40-230 [facility] Comment on above: Order Comment: Speci men Type: BLOOD SPECIMENOrdering Facility: [facility] Address: [address] [place] [address] Performed By: #### S ERIMM ####[facility] LABIA [id number] [place] [address] [place] KAPPA/DANIELS,FREE,SERon 2024 Immunoglobulin light chains.kappa.free (S) [Mass/Vol] 37.4 mg/L High 3.3-19.4 [facility] Comment on above: Order Comment: Speci men Type: BLOOD SPECIMENOrdering Facility: [facility] Address: [address] [place] [address] Result Comment: Rare ly, increased serum free light chains levels may not be detected or accurately quantified due to prozone phenomenon or in high viscosity samples using this immunoturbidimetric assay. Correlation with other laboratory results and clinical findings is recommended. The [place] Free Light Chain was performed using the Binding Site Optilite immunoturbidimetric method. Result obtained with different assay methods or kits cannot be used interchangeably. Performed By: #### K LFRS ####[facility] LABCLIA [id number] [place] [address] [place] Immunoglobulin light chains.kappa/Immun oglobulin light chains.lambda (S) [Mass ratio] 1.65 Normal 0.26-1.65 [facility] Comment on above: Order Comment: Speci men Type: BLOOD SPECIMENOrdering Facility: [facility] Address: [address] [place] [address] Performed By: #### K LFRS ####[facility] LABCLIA [id number] [place] [address] [place] Immunoglobulin light chains.lambda.free [Mass/Vol] 22.7 mg/L Normal 5.7-26.3 [facility] Comment on above: Order Comment: Speci men Type: BLOOD SPECIMENOrdering Facility: [facility] Address: [address] [place] [address] Result Comment: Rare ly, increased serum free [...] K LFRS ####[facility] LABCLIA [id number] [place] [address] [place] PROTEIN ELECTROPHORESIS SERU M WITH TOÑITO (P)on 02-17-2025 Albumin [Mass/Vol] 4.01 g/dL Normal 3.43-5.41 [facility] Comment on above: Order Comment: Speci men Type: BLOOD SPECIMENOrdering Facility: [facility] Address: [address] [place] [address] Performed By: #### L [id number] ####[facility] LABIA [id number] [place] [address] [place] Alpha 1 globulin Elph [Mass/Vol] 0.23 g/dL Normal 0.18-0.43 [facility] Comment on above: Order Comment: Speci men Type: BLOOD SPECIMENOrdering Facility: [facility] Address: [address] [place] [address] Performed By: #### L [id number] ####[facility] LABCLIA [id number] [place] [address] [place] Alpha 2 globulin Elph [Mass/Vol] 0.66 g/dL Normal 0.42-0.98 [facility] Comment on above: Order Comment: Speci men Type: BLOOD SPECIMENOrdering Facility: [facility] Address: [address] [place] [address] Performed By: #### L [id number] ####[facility] LABCLIA [id number] [place] [address] [place] Beta globulin Elph [Mass/Vol] 0.73 g/dL Normal 0.61-1.17 [facility] Comment on above: Order Comment: Speci men Type: BLOOD SPECIMENOrdering Facility: [facility] Address: [address] [place] [address] Performed By: #### L [id number] ####[facility] LABCLIA [id number] [place] [address] [place] COMMENT (SERUM PROT ELECTRO) Monoclonal Protein analysis (immunofixation) is not indicated. Normal [facility] Comment on above: Order Comment: Speci men Type: BLOOD SPECIMENOrdering Facility: [facility] Address: [address] [place] [address] Performed By: #### L [id number] ####[facility] LABCLIA [id number] [place] [address] [place] Gamma globulin Elph [Mass/Vol] 1.08 g/dL Normal 0.53-1.51 [facility] Comment on above: Order Comment: Speci men Type: BLOOD SPECIMENOrdering Facility: [facility] Address: [address] [place] [address] Performed By: #### L [id number] ####[facility] LABCLIA [id number] [address] [place] [address] [place] INTERPRETATION COMMENT FOR PROTEIN ELECTROPHORESIS See separate immunofixation report for characterization of monoclonal gammopathy. Normal [facility] Comment on above: Order Comment: Speci men Type: BLOOD SPECIMENOrdering Facility: [facility] Address: [address] [place] [address] Performed By: #### L [id number] ####[facility] LABCLIA [id number] [address] [place] [address] [place] M-PROTEIN LOCATION Gamma Fraction 1 Normal [facility] Comment on above: Order Comment: Speci men Type: BLOOD SPECIMENOrdering Facility: [facility] Address: [address] [place] [address] Performed By: #### L [id number] ####[facility] LABCLIA [id number] [place] [id number] [place] Protein Fractions [Interp] An M protein is identified on protein electrophoresis. Abnormal No definitive M protein is identified on protein electrophores is. [facility] Comment on above: Order Comment: Speci men Type: BLOOD SPECIMENOrdering Facility: [facility] Address: [address] [place] [address] Performed By: #### L [id number] ####[facility] LABCLIA [id number] [address] [place] [address] [place] Protein.monoclonal Elph [Mass/Vol] 0.65 g/dL High <=0.00 [facility] Comment on above: Order Comment: Speci men Type: BLOOD SPECIMENOrdering Facility: [facility] Address: [address] [place], [place] [address] Performed By: #### L [id number] ####[facility] LABCLIA [id number] [address] [address] [place] SPE STAFF REVIEW Reviewed by Donaldo Rivas MD, Ph.D ([id number]) Normal [facility] Comment on above: Order Comment: Speci men Type: BLOOD SPECIMENOrdering Facility: [facility] Address: [address] [place] [address] Performed By: #### L [id number] ####[facility] LABCLIA [id number] [place] [id number] [place] Prot SerPl-mCncon 02-17-2025 Protein [Mass/Vol] 6.7 g/dL Normal 6.3-8.0 [facility] Comment on above: Order Comment: Speci men Type: BLOOD SPECIMENOrdering Facility: [facility] Address: [address] [place] [address] Performed By: #### 2 885-2 ####[facility] LABCLIA [id number] [address] [place] CNPVangie 02-13-2025 CNPN Telephone (HEMTSA) ZACH MANUEL ([id number]) 1945 M Date Time Provider Department 02/13/25 KEYONNA FUENTES HEMTSA During your visit today, we recorded the following information about you: Keyonna Fuentes RN 02/13/2025 11:04 AM Signed Pt in for OV and Aredia on Saturday 02/17, please place and sign more orders. Thanks! TAYLER Aldana Kathryn, [facility] 02/13/2025 12:20 PM Signed Orders entered and [...] Type 2 diabetes mellitus without complication (*10/20/2015 [employer] current use of systemic steroids [Z79*10/20/2015 Left inguinal hernia [K40.90] 10/20/2015 Former smoker [Z87.891] 10/20/2015 Elevated prostate specific antigen (PSA) [R97.2*03/19/2020 Stage 3 chronic kidney disease, unspecified whe*03/06/2023 Encounter Status:Closed by AINSLEY WOODSON on 02/13/25 Normal [facility] ECG 12 leadon 10-10-2024 [facility] CNPNon 05-29-2024 CNPN Telephone (HEMTSA) KALEBZACH ([id number]) 1945 M Date Time Provider Department 05/29/24 [...] Type 2 diabetes mellitus without complication (*10/20/2015 equipment [employer] current use of systemic steroids [Z79*10/20/2015 Left inguinal hernia [K40.90] 10/20/2015 Former smoker [Z87.891] 10/20/2015 Elevated prostate specific antigen (PSA) [R97.2*03/19/2020 Stage 3 chronic kidney disease, unspecified whe*03/06/2023 Encounter Status:Closed by JUAN FERGUSON on 05/29/24 Normal [facility] CBC W Auto Differential pane l (Bld)on 05-27-2024 Basophils (Bld) [#/Vol] 0.09 10*3/uL Normal <0.11 [facility] Comment on above: Order Comment: Speci men Type: BLOOD SPECIMENOrdering Facility: [facility] Address: [address] [place] [address] Performed By: #### 5 7021-8 ####[facility] LABCLIA [id number] [place] [address] Basophils/100 WBC (Bld) 1.3 % Normal [facility] Comment on above: Order Comment: Speci men Type: BLOOD SPECIMENOrdering Facility: [facility] Address: [address] [place] [address] Performed By: #### 5 7021-8 ####[facility] LABCLIA [id number] [place] [address] Differential cell count method Nom (Bld) Auto Normal [facility] Comment on above: Order Comment: Speci men Type: BLOOD SPECIMENOrdering Facility: [facility] Address: [address] [place] [address] Performed By: #### 5 7021-8 ####[facility] LABCLIA [id number] [place] [address] Eosinophils (Bld) [#/Vol] 0.32 10*3/uL Normal <0.46 [facility] Comment on above: Order Comment: Speci men Type: BLOOD SPECIMENOrdering Facility: [facility] Address: [address] [place] [address] Performed By: #### 5 7021-8 ####[facility] LABCLIA [id number] [place] [address] Eosinophils/100 WBC (Bld) 4.7 % Normal [facility] Comment on above: Order Comment: Speci men Type: BLOOD SPECIMENOrdering Facility: [facility] Address: [address] [place] [address] Performed By: #### 5 7021-8 ####[facility] LABCLIA [id number] [place] [address] Erythrocyte distribution width (RBC) [Ratio] 13.8 % Normal 11.5-15.0 [facility] Comment on above: Order Comment: Speci men Type: BLOOD SPECIMENOrdering Facility: [facility] Address: [address] [place] [address] Performed By: #### 5 7021-8 ####[facility] LABCLIA [id number] [place] [address] Hematocrit (Bld) [Volume fraction] 37.7 % Low 39.0-51.0 [facility] Comment on above: Order Comment: Speci men Type: BLOOD SPECIMENOrdering Facility: [facility] Address: [address] [place] [address] Performed By: #### 5 7021-8 ####[facility] LABCLIA [id number] [place] [address] Hemoglobin (Bld) [Mass/Vol] 13.3 g/dL Normal 13.0-17.0 [facility] Comment on above: Order Comment: Speci men Type: BLOOD SPECIMENOrdering Facility: [facility] Address: [address] [place] [address] Performed By: #### 5 7021-8 ####[facility] LABCLIA [id number] [place] [address] Immature granulocytes (Bld) [#/Vol] 0.03 10*3/uL Normal <0.10 [facility] Comment on above: Order Comment: Speci men Type: BLOOD SPECIMENOrdering Facility: [facility] Address: [address] [place] [address] Performed By: #### 5 7021-8 ####[facility] LABCLIA [id number] [place] [address] Immature granulocytes/100 WBC (Bld) 0.4 % Normal [facility] Comment on above: Order Comment: Speci men Type: BLOOD SPECIMENOrdering Facility: [facility] Address: [address] [place] [address] Performed By: #### 5 7021-8 ####[facility] LABCLIA [id number] [place] [address] Lymphocytes (Bld) [#/Vol] 1.04 10*3/uL Normal 1.00-4.00 [facility] Comment on above: Order Comment: Speci men Type: BLOOD SPECIMENOrdering Facility: [facility] Address: [address] [place] [address] Performed By: #### 5 7021-8 ####[facility] LABCLIA [id number] [place] [address] Lymphocytes/100 WBC (Bld) 15.3 % Normal [facility] Comment on above: Order Comment: Speci men Type: BLOOD SPECIMENOrdering Facility: [facility] Address: [address] [place] [address] Performed By: #### 5 7021-8 ####[facility] LABCLIA [id number] [place] [address] MCH (RBC) [Entitic mass] 36.3 pg High 26.0-34.0 [facility] Comment on above: Order Comment: Speci men Type: BLOOD SPECIMENOrdering Facility: [facility] Address: [address] [place] [address] Performed By: #### 5 7021-8 ####[facility] LABIA [id number] [place] [address] MCHC (RBC) [Mass/Vol] 35.3 g/dL Normal 30.5-36.0 [facility] Comment on above: Order Comment: Speci men Type: BLOOD SPECIMENOrdering Facility: [facility] Address: [address] [place] [address] Performed By: #### 5 7021-8 ####[facility] LABIA [id number] [place] [address] MCV (RBC) [Entitic vol] 103.0 fL High 80.0-100.0 [facility] Comment on above: Order Comment: Speci men Type: BLOOD SPECIMENOrdering Facility: [facility] Address: [address] [place] [address] Performed By: #### 5 7021-8 ####[facility] LABIA [id number] [place] [address] Monocytes (Bld) [#/Vol] 0.72 10*3/uL Normal <0.87 [facility] Comment on above: Order Comment: Speci men Type: BLOOD SPECIMENOrdering Facility: [facility] Address: [address] [place] [address] Performed By: #### 5 7021-8 ####[facility] LABCLIA [id number] [place] [address] Monocytes/100 WBC (Bld) 10.6 % Normal [facility] Comment on above: Order Comment: Speci men Type: BLOOD SPECIMENOrdering Facility: [facility] Address: [address] [place] [address] Performed By: #### 5 7021-8 ####[facility] LABCLIA [id number] [place] [address] Neutrophils (Bld) [#/Vol] 4.60 10*3/uL Normal 1.45-7.50 [facility] Comment on above: Order Comment: Speci men Type: BLOOD SPECIMENOrdering Facility: [facility] Address: [address] [place] [address] Performed By: #### 5 7021-8 ####[facility] LABCLIA [id number] [place] [address] Neutrophils/100 WBC (Bld) 67.7 % Normal [facility] Comment on above: Order Comment: Speci men Type: BLOOD SPECIMENOrdering Facility: [facility] Address: [address] [place] [address] Performed By: #### 5 7021-8 ####[facility] LABCLIA [id number] [place] [address] Nucleated RBC (Bld) [#/Vol] 10*3/uL Normal <0.01 [facility] Comment on above: Order Comment: Speci men Type: BLOOD SPECIMENOrdering Facility: [facility] Address: [address] [place] [address] Performed By: #### 5 7021-8 ####[facility] LABCLIA [id number] [place] [address] Nucleated RBC/100 WBC (Bld) [Ratio] 0.0 /100 WBC Normal [facility] Comment on above: Order Comment: Speci men Type: BLOOD SPECIMENOrdering Facility: [facility] Address: [address] [place] [address] Performed By: #### 5 7021-8 ####[facility] LABCLIA [id number] [place] [address] Platelet mean volume (Bld) [Entitic vol] 10.6 fL Normal 9.0-12.7 [facility] Comment on above: Order Comment: Speci men Type: BLOOD SPECIMENOrdering Facility: [facility] Address: [address] [place] [address] Performed By: #### 5 7021-8 ####[facility] LABCLIA [id number] [place] [address] Platelets (Bld) [#/Vol] 172 10*3/uL Normal 150-400 [facility] Comment on above: Order Comment: Speci men Type: BLOOD SPECIMENOrdering Facility: [facility] Address: [address] [place] [address] Performed By: #### 5 7021-8 ####[facility] LABCLIA [id number] [place] [address] RBC (Bld) [#/Vol] 3.66 10*6/uL Low 4.20-6.[address] [facility] Comment on above: Order Comment: Speci men Type: BLOOD SPECIMENOrdering Facility: [facility] Address: [address] [place] [address] Performed By: #### 5 7021-8 ####[facility] LABCLIA [id number] [place] [address] WBC (Bld) [#/Vol] 6.80 10*3/uL Normal 3.70-11.[address] [facility] Comment on above: Order Comment: Speci men Type: BLOOD SPECIMENOrdering Facility: [facility] Address: [address] [place] [address] Performed By: #### 5 7021-8 ####[facility] [id number] [place] [address] CNOVSPon 05-27-2024 CNOVSP Visit (SP) Office (HEMASA) ZACH MANUEL ([id number]) 1945 M Date Time Provider Department 05/27/24 [...] date: Hyperlipidemia 11/2002: Monoclonal gammopathy Comment: IgG [place] 2002: Multiple myeloma (HCC) No date: Ulcerative [...] IMPRESSION: Enla (more content not included)... Normal [facility] CNPVangie 05-27-2024 CNPN Telephone (HEMASA) ZACH MANUEL ([id number]) 1945 M Date Time Provider Department 05/27/24 [...] Type 2 diabetes mellitus without complication (*10/20/2015 prison current use of systemic steroids [Z79*10/20/2015 Left inguinal hernia [K40.90] 10/20/2015 Former smoker [Z87.891] 10/20/2015 Elevated prostate specific antigen (PSA) [R97.2*03/19/2020 Stage 3 chronic kidney disease, unspecified whe*03/06/2023 Encounter Status:Closed by JUAN FERGUSON on 05/27/24 Normal [facility] Comprehensive metabolic 2000 panelon 05-27-2024 Albumin [Mass/Vol] 3.9 g/dL Normal 3.9-4.9 [facility] Comment on above: Order Comment: Speci men Type: BLOOD SPECIMENOrdering Facility: [facility] Address: [address] [place] [address] Result Comment: Kd ected result: Previously reported as 4.1 g/dL on 05/27/2024 at 1:22 PM EDT. Performed By: #### 2 4323-8 ####[facility] LABIA [id number] [place] [address] [place] ALP [Catalytic activity/Vol] 74 U/L Normal 38-113 [facility] Comment on above: Order Comment: Speci men Type: BLOOD SPECIMENOrdering Facility: [facility] Address: [address] [place] [address] Result Comment: Kd ected result: Previously reported as 77 U/L on 05/27/2024 at 1:22 PM EDT. Performed By: #### 2 4323-8 ####[facility] LABIA [id number] [place] [address] [place] ALT [Catalytic activity/Vol] 16 U/L Normal 10-54 [facility] Comment on above: Order Comment: Speci men Type: BLOOD SPECIMENOrdering Facility: [facility] Address: [address] [place] [address] Result Comment: Kd ected result: Previously reported as 10 U/L on 05/27/2024 at 1:22 PM EDT. Performed By: #### 2 4323-8 ####[facility] LABIA [id number] [place] [address] [place] Anion gap [Moles/Vol] 12 mmol/L Normal 8-15 [facility] Comment on above: Order Comment: Speci men Type: BLOOD SPECIMENOrdering Facility: [facility] Address: [address] [place] [address] Performed By: #### 2 4323-8 ####[facility] LABCLIA [id number] [place] [address] [place] AST [Catalytic activity/Vol] 20 U/L Normal 14-40 [facility] Comment on above: Order Comment: Speci men Type: BLOOD SPECIMENOrdering Facility: [facility] Address: [address] [place] [address] Result Comment: Kd ected result: Previously reported as 13 U/L on 05/27/2024 at 1:22 PM EDT. Performed By: #### 2 4323-8 ####[facility] LABCLIA [id number] [place] [address] [place] Bilirubin [Mass/Vol] 0.9 mg/dL Normal 0.2-1.3 [facility] Comment on above: Order Comment: Speci men Type: BLOOD SPECIMENOrdering Facility: [facility] Address: [address] [place] [address] Performed By: #### 2 4323-8 ####[facility] LABCLIA [id number] [place] [address] [place] Calcium [Mass/Vol] 8.5 mg/dL Normal 8.5-10.2 [facility] Comment on above: Order Comment: Speci men Type: BLOOD SPECIMENOrdering Facility: [facility] Address: [address] [place] [address] Performed By: #### 2 4323-8 ####[facility] LABCLIA [id number] [place] [address] [place] Chloride [Moles/Vol] 106 mmol/L Normal 98-107 [facility] Comment on above: Order Comment: Speci men Type: BLOOD SPECIMENOrdering Facility: [facility] Address: [address] [place] [address] Result Comment: Resu lt rechecked. Performed By: #### 2 4323-8 ####[facility] LABCLIA [id number] [place] [address] [place] CO2 [Moles/Vol] 27 mmol/L Normal 22-30 [facility] Comment on above: Order Comment: Speci men Type: BLOOD SPECIMENOrdering Facility: [facility] Address: [address] [place] [address] Result Comment: Kd ected result: Previously reported as 29 mmol/L on 05/27/2024 at 1:22 PM EDT. Performed By: #### 2 4323-8 ####[facility] LABIA [id number] [place] [address] [place] Creatinine [Mass/Vol] 1.59 mg/dL High 0.73-1.22 [facility] Comment on above: Order Comment: Speci men Type: BLOOD SPECIMENOrdering Facility: [facility] Address: [address] [place] [address] Result Comment: Kd ected result: Previously reported as 1.61 mg/dL on 05/27/2024 at 1:22 PM EDT. Performed By: #### 2 4323-8 ####[facility] LABIA [id number] [address] [place] Creatinine and Glomerular filtration rate.predicted panel (S/P/Bld) 44 mL/min/1.73m??? Low >=60 [facility] Comment on above: Order Comment: Speci men Type: BLOOD SPECIMENOrdering Facility: [facility] Address: [address] [place] [address] Result Comment: Chanda mated Glomerular Filtration Rate [...] 2 4323-8 ####[facility] LABCLIA [id number] [place] [address] [place] Glucose [Mass/Vol] 78 mg/dL Normal 74-99 [facility] Comment on above: Order Comment: Michelle bueno Type: BLOOD SPECIMENOrdering Facility: [facility] Address: [address] [place] [address] Result Comment: The [place] [employer] (ADA) provides guidance for cutoff [...] Standards of Medical Care in Diabetes 2016, [place] [employer]. Diabetes Care. 2016.39(Suppl 1). Corrected result: Previously reported as 85 mg/dL on 05/27/2024 at 1:22 PM EDT. Performed By: #### 2 4323-8 ####[facility] LABCLIA [id number] [place] [address] [place] Potassium [Moles/Vol] 4.5 mmol/L Normal 3.7-5.1 [facility] Comment on above: Order Comment: Michelle bueno Type: BLOOD SPECIMENOrdering Facility: [facility] Address: [address] [place] [address] Performed By: #### 2 4323-8 ####[facility] LABCLIA [id number] [place] [id number] [place] Protein [Mass/Vol] 6.6 g/dL Normal 6.3-8.0 [facility] Comment on above: Order Comment: Speci men Type: BLOOD SPECIMENOrdering Facility: [facility] Address: [address] [place] [address] Result Comment: Kd ected result: Previously reported as 6.3 g/dL on 05/27/2024 at 1:22 PM EDT. Performed By: #### 2 4323-8 ####[facility] LABCLIA [id number] [place] [address] [place] Sodium [Moles/Vol] 145 mmol/L High 136-144 [facility] Comment on above: Order Comment: Speci men Type: BLOOD SPECIMENOrdering Facility: [facility] Address: [address] [place] [address] Result Comment: Resu lt rechecked. Performed By: #### 2 4323-8 ####[facility] LABCLIA [id number] [place] [address] [place] Urea nitrogen [Mass/Vol] 15 mg/dL Normal 9- [facility] Comment on above: Order Comment: Speci men Type: BLOOD SPECIMENOrdering Facility: [facility] Address: [address] [place] [address] Result Comment: Kd ected result: Previously reported as 17 mg/dL on 05/27/2024 at 1:22 PM EDT. Performed By: #### 2 4323-8 ####[facility] LABCLIA [id number] [place] [address] [place] IMMUNOFIXATION SCREEN, SERUM on 05-27-2024 INTERPRETATION (MPA) Atypical restricted bands are present in the IgG and kappa regions. Consistent with IgG kappa monoclonal gammopathy. Normal [facility] Comment on above: Order Comment: Speci men Type: BLOOD SPECIMENOrdering Facility: [facility] Address: [address] [place] [address] Performed By: #### I [facility] ####[facility] LABCLIA [id number] [place] [address] [place] MPA RESULT M protein is present. Abnormal No M p rotein is identified. [facility] Comment on above: Order Comment: Speci men Type: BLOOD SPECIMENOrdering Facility: [facility] Address: [address] [place] [address] Performed By: #### I FESC ####[facility] LABCLIA [id number] [address] STAFF REVIEW (MPA) Reviewed by Alba Shelton MD [facility] Comment on above: Order Comment: Speci men Type: BLOOD SPECIMENOrdering Facility: [facility] Address: [address] [place] [address] Performed By: #### I FES ####[facility] LABIA [id number] [place] [address] [place] IMMUNOGLOBULINS,IGG,IGA,IGMo n 05-27-2024 IgA [Mass/Vol] 94 mg/dL Normal 70-400 [facility] Comment on above: Order Comment: Speci men Type: BLOOD SPECIMENOrdering Facility: [facility] Address: [address] [place] [address] Performed By: #### S ERIMM ####[facility] LABCLIA [id number] [place] [address] [place] IgG [Mass/Vol] 1157 mg/dL Normal 700-1600 [facility] Comment on above: Order Comment: Speci men Type: BLOOD SPECIMENOrdering Facility: [facility] Address: [address] [place] [address] Performed By: #### S ERIMM ####[facility] LABIA [id number] [place] [address] [place] IgM [Mass/Vol] 18 mg/dL Low 40-230 [facility] Comment on above: Order Comment: Speci men Type: BLOOD SPECIMENOrdering Facility: [facility] Address: [address] [place] [address] Performed By: #### S ERIMM ####[facility] LABCLIA [id number] [place] [address] [place] KAPPA/DANIELS,FREE,SERon 2023 Immunoglobulin light chains.kappa.free (S) [Mass/Vol] 40.4 mg/L High 3.3-19.4 [facility] Comment on above: Order Comment: Speci men Type: BLOOD SPECIMENOrdering Facility: [facility] Address: [address] [place] [address] Result Comment: Rare ly, increased serum free light chains levels may not be detected or accurately quantified due to prozone phenomenon or in high viscosity samples using this immunoturbidimetric assay. Correlation with other laboratory results and clinical findings is recommended. The [employer] Free Light Chain was performed using the Binding Site Optilite immunoturbidimetric method. Result obtained with different assay methods or kits cannot be used interchangeably. Performed By: #### K LFRS ####[facility] LABCLIA [id number] [place] [address] [place] Immunoglobulin light chains.kappa/Immun oglobulin light chains.lambda (S) [Mass ratio] 1.62 Normal 0.26-1.65 [facility] Comment on above: Order Comment: Speci men Type: BLOOD SPECIMENOrdering Facility: [facility] Address: [address] [place] [address] Performed By: #### K LFRS ####[facility] LABCLIA [id number] [place] [address] [place] Immunoglobulin light chains.lambda.free [Mass/Vol] 25.0 mg/L Normal 5.7-26.3 [facility] Comment on above: Order Comment: Speci men Type: BLOOD SPECIMENOrdering Facility: [facility] Address: [address] [place] [address] Result Comment: Rare ly, increased serum free [...] Performed By: #### K LFRS ####[facility] [id number] [place] [address] [place] PROTEIN ELECTROPHORESIS SERU M (P)on 05-27-2024 Albumin [Mass/Vol] 3.79 g/dL Normal 3.43-5.41 [facility] Comment on above: Order Comment: Speci men Type: BLOOD SPECIMENOrdering Facility: [facility] Address: [address] [place] [address] Performed By: #### L [id number] ####[facility] [id number] [place] [address] [place] Alpha 1 globulin Elph [Mass/Vol] 0.23 g/dL Normal 0.18-0.43 [facility] Comment on above: Order Comment: Speci men Type: BLOOD SPECIMENOrdering Facility: [facility] Address: [address] [place] [address] Performed By: #### L [id number] ####[facility] [id number] [place] [address] [place] Alpha 2 globulin Elph [Mass/Vol] 0.59 g/dL Normal 0.42-0.98 [facility] Comment on above: Order Comment: Speci men Type: BLOOD SPECIMENOrdering Facility: [facility] Address: [address] [place] [address] Performed By: #### L [id number] ####[facility] [id number] [place] [address] [place] Beta globulin Elph [Mass/Vol] 0.61 g/dL Normal 0.61-1.17 [facility] Comment on above: Order Comment: Speci men Type: BLOOD SPECIMENOrdering Facility: [facility] Address: [address] [place] [address] Performed By: #### L [id number] ####[facility] LABCLIA [id number] [place] [address] [place] Gamma globulin Elph [Mass/Vol] 0.98 g/dL Normal 0.53-1.51 [facility] Comment on above: Order Comment: Speci men Type: BLOOD SPECIMENOrdering Facility: [facility] Address: [address] [place] [address] Performed By: #### L [id number] ####[facility] LABIA [id number] [address] [place] INTERPRETATION COMMENT FOR PROTEIN ELECTROPHORESIS See separate immunofixation report for characterization of monoclonal gammopathy. Normal [facility] Comment on above: Order Comment: Speci men Type: BLOOD SPECIMENOrdering Facility: [facility] Address: [address] [place] [address] Performed By: #### L [id number] ####[facility] LABIA [id number] [place] [address] [place] M-PROTEIN LOCATION Gamma Fraction 1 Normal [facility] Comment on above: Order Comment: Speci men Type: BLOOD SPECIMENOrdering Facility: [facility] Address: [address] [place] [address] Performed By: #### L [id number] ####[facility] LABIA [id number] [place] [address] [place] Protein Fractions [Interp] An M protein is identified on protein electrophoresis. Abnormal No definitive M protein is identified on protein electrophores is. [facility] Comment on above: Order Comment: Speci men Type: BLOOD SPECIMENOrdering Facility: [facility] Address: [address] [place] [address] Performed By: #### L [id number] ####[facility] LABIA [id number] [place] [address] [place] Protein.monoclonal Elph [Mass/Vol] 0.67 g/dL High <=0.00 [facility] Comment on above: Order Comment: Speci men Type: BLOOD SPECIMENOrdering Facility: [facility] Address: [address] [place] [address] Performed By: #### L [id number] ####[facility] LABCLIA [id number] [address] OF [facility] SPE STAFF REVIEW Reviewed by Alba Shelton MD [facility] Comment on above: Order Comment: Speci men Type: BLOOD SPECIMENOrdering Facility: [facility] Address: [address] [place] [address] Performed By: #### L [id number] ####[facility] LABCLIA [id number] [address] [place] Prot SerPl-mCncon 05-27-2024 Protein [Mass/Vol] 6.2 g/dL Low 6.3-8.0 [facility] Comment on above: Order Comment: Speci men Type: BLOOD SPECIMENOrdering Facility: [facility] Address: [address] [place] [address] Performed By: #### 2 885-2 ####[facility] LABCLIA [id number] [address] [place] 05-20-2024 CNPN Telephone (HEMTSA) ZACH MANUEL ([id number]) 1945 M Date Time Provider Department 05/20/24 [...] Fully Assessed Reason for Visit: Lab Orders [8798] Primary Visit Diagnosis:Multiple myeloma not having achieved remission (HCC) [C90.00] Order(s):COMPREHENSIVE METABOLIC PANEL [SQCMP] Order #: [id number] FUTURE COMPLETE BLOOD COUNT AND DIFFERENTIAL [SQCBCDIF] Order #: [id number] FUTURE MONOCLONAL PROTEIN, SERUM (BLOOD) [SQSERMPA] Order #: [id number] FUTURE PROTEIN ELECTROPHORESIS SERUM W/INTERP [SQSEPG] Order #: [id number] FUTURE Prescriptions as of 05/20/2024 - lenalidomide [...] Type 2 diabetes mellitus without complication (*10/20/2015 prison current use of systemic steroids [Z79*10/20/2015 Left inguinal hernia [K40.90] 10/20/2015 Former smoker [Z87.891] 10/20/2015 Elevated prostate specific antigen (PSA) [R97.2*03/19/2020 Stage 3 chronic kidney disease, unspecified whe*03/06/2023 Encounter Status:Closed by IRMA TALAVERA on 05/20/24 [facility] 02-29-2024 CNPN Telephone (HEMASA) ZACH MANUEL ([id number]) 1945 M Date Time Provider Department 02/29/24 [...] Fully Assessed Reason for Visit: Care Coordination [3497] Cmt: Labs Prescriptions as of 02/29/2024 - [...] Type 2 diabetes mellitus without complication (*10/20/2015 [employer] current use of systemic steroids [Z79*10/20/2015 Left inguinal hernia [K40.90] 10/20/2015 Former smoker [Z87.891] 10/20/2015 Elevated prostate specific antigen (PSA) [R97.2*03/19/2020 Stage 3 chronic kidney disease, unspecified whe*03/06/2023 Encounter Status:Closed by JUAN FERGUSON on 02/29/24 Normal [facility] CBC W Auto Differential pane l (Bld)on 02-26-2024 Basophils (Bld) [#/Vol] 0.09 10*3/uL Normal <0.11 [facility] Comment on above: Order Comment: Speci men Type: BLOOD SPECIMENOrdering Facility: [facility] Address: [address] [place] [address] Performed By: #### 5 7021-8 ####[facility] LABCLIA [id number] [place] [address] Basophils/100 WBC (Bld) 1.4 % Normal [facility] Comment on above: Order Comment: Speci men Type: BLOOD SPECIMENOrdering Facility: [facility] Address: [address] [place] [address] Performed By: #### 5 7021-8 ####[facility] LABCLIA [id number] [place] [address] Differential cell count method Nom (Bld) Auto Normal [facility] Comment on above: Order Comment: Speci men Type: BLOOD SPECIMENOrdering Facility: [facility] Address: [address] [place] [address] Performed By: #### 5 7021-8 ####[facility] LABCLIA [id number] [place] [address] Eosinophils (Bld) [#/Vol] 0.44 10*3/uL Normal <0.46 [facility] Comment on above: Order Comment: Speci men Type: BLOOD SPECIMENOrdering Facility: [facility] Address: [address] [place] [address] Performed By: #### 5 7021-8 ####[facility] LABCLIA [id number] [place] [address] Eosinophils/100 WBC (Bld) 6.6 % Normal [facility] Comment on above: Order Comment: Speci men Type: BLOOD SPECIMENOrdering Facility: [facility] Address: [address] [place] [address] Performed By: #### 5 7021-8 ####[facility] LABCLIA [id number] [place] [address] Erythrocyte distribution width (RBC) [Ratio] 15.4 % High 11.5-15.0 [facility] Comment on above: Order Comment: Speci men Type: BLOOD SPECIMENOrdering Facility: [facility] Address: [address] [place] [address] Performed By: #### 5 7021-8 ####[facility] LABCLIA [id number] [place] [address] Hematocrit (Bld) [Volume fraction] 38.0 % Low 39.0-51.0 [facility] Comment on above: Order Comment: Speci men Type: BLOOD SPECIMENOrdering Facility: [facility] Address: [address] [place] [address] Performed By: #### 5 7021-8 ####[facility] LABCLIA [id number] [place] [address] Hemoglobin (Bld) [Mass/Vol] 12.9 g/dL Low 13.0-17.0 [facility] Comment on above: Order Comment: Speci men Type: BLOOD SPECIMENOrdering Facility: [facility] Address: [address] [place] [address] Performed By: #### 5 7021-8 ####[facility] LABCLIA [id number] [place] [address] Immature granulocytes (Bld) [#/Vol] 0.04 10*3/uL Normal <0.10 [facility] Comment on above: Order Comment: Speci men Type: BLOOD SPECIMENOrdering Facility: [facility] Address: [address] [place] [address] Performed By: #### 5 7021-8 ####[facility] LABCLIA [id number] [place] [address] Immature granulocytes/100 WBC (Bld) 0.6 % Normal [facility] Comment on above: Order Comment: Speci men Type: BLOOD SPECIMENOrdering Facility: [facility] Address: [address] [place] [address] Performed By: #### 5 7021-8 ####[facility] LABCLIA [id number] [place] [address] Lymphocytes (Bld) [#/Vol] 1.24 10*3/uL Normal 1.00-4.00 [facility] Comment on above: Order Comment: Speci men Type: BLOOD SPECIMENOrdering Facility: [facility] Address: [address] [place] [address] Performed By: #### 5 7021-8 ####[facility] LABIA [id number] [place] [address] Lymphocytes/100 WBC (Bld) 18.6 % Normal [facility] Comment on above: Order Comment: Speci men Type: BLOOD SPECIMENOrdering Facility: [facility] Address: [address] [place] [address] Performed By: #### 5 7021-8 ####[facility] LABCLIA [id number] [place] [address] MCH (RBC) [Entitic mass] 35.5 pg High 26.0-34.0 [facility] Comment on above: Order Comment: Speci men Type: BLOOD SPECIMENOrdering Facility: [facility] Address: [address] [place] [address] Performed By: #### 5 7021-8 ####[facility] LABIA [id number] [place] [address] MCHC (RBC) [Mass/Vol] 33.9 g/dL Normal 30.5-36.0 [facility] Comment on above: Order Comment: Speci men Type: BLOOD SPECIMENOrdering Facility: [facility] Address: [address] [place] [address] Performed By: #### 5 7021-8 ####[facility] LABCLIA [id number] [place] [address] MCV (RBC) [Entitic vol] 104.7 fL High 80.0-100.0 [facility] Comment on above: Order Comment: Speci men Type: BLOOD SPECIMENOrdering Facility: [facility] Address: [address] [place] [address] Performed By: #### 5 7021-8 ####[facility] LABCLIA [id number] [place] [address] Monocytes (Bld) [#/Vol] 0.88 10*3/uL High <0.87 [facility] Comment on above: Order Comment: Speci men Type: BLOOD SPECIMENOrdering Facility: [facility] Address: [address] [place] [address] Performed By: #### 5 7021-8 ####[facility] LABCLIA [id number] [place] [address] Monocytes/100 WBC (Bld) 13.2 % Normal [facility] Comment on above: Order Comment: Speci men Type: BLOOD SPECIMENOrdering Facility: [facility] Address: [address] [place] [address] Performed By: #### 5 7021-8 ####[facility] LABCLIA [id number] [place] [address] Neutrophils (Bld) [#/Vol] 3.96 10*3/uL Normal 1.45-7.50 [facility] Comment on above: Order Comment: Speci men Type: BLOOD SPECIMENOrdering Facility: [facility] Address: [address] [place] [address] Performed By: #### 5 7021-8 ####[facility] LABCLIA [id number] [place] [address] Neutrophils/100 WBC (Bld) 59.6 % Normal [facility] Comment on above: Order Comment: Speci men Type: BLOOD SPECIMENOrdering Facility: [facility] Address: [address] [place] [address] Performed By: #### 5 7021-8 ####[facility] LABCLIA [id number] [place] [address] Nucleated RBC (Bld) [#/Vol] 10*3/uL Normal <0.01 [facility] Comment on above: Order Comment: Speci men Type: BLOOD SPECIMENOrdering Facility: [facility] Address: [address] [place] [address] Performed By: #### 5 7021-8 ####[facility] LABCLIA [id number] [place] [address] Nucleated RBC/100 WBC (Bld) [Ratio] 0.0 /100 WBC Normal [facility] Comment on above: Order Comment: Speci men Type: BLOOD SPECIMENOrdering Facility: [facility] Address: [address] [place] [address] Performed By: #### 5 7021-8 ####[facility] LABIA [id number] [place] [address] Platelet mean volume (Bld) [Entitic vol] 10.6 fL Normal 9.0-12.7 [facility] Comment on above: Order Comment: Speci men Type: BLOOD SPECIMENOrdering Facility: [facility] Address: [address] [place] [address] Performed By: #### 5 7021-8 ####[facility] LABCLIA [id number] [place] [address] Platelets (Bld) [#/Vol] 203 10*3/uL Normal 150-400 [facility] Comment on above: Order Comment: Speci men Type: BLOOD SPECIMENOrdering Facility: [facility] Address: [address] [place] [address] Performed By: #### 5 7021-8 ####[facility] LABCLIA [id number] [place] [address] RBC (Bld) [#/Vol] 3.63 10*6/uL Low 4.20-6.[address] [facility] Comment on above: Order Comment: Speci men Type: BLOOD SPECIMENOrdering Facility: [facility] Address: [address] [place] [address] Performed By: #### 5 7021-8 ####[facility]ADFARZANA [facility] LABIA [id number] [place] [address] WBC (Bld) [#/Vol] 6.65 10*3/uL Normal 3.70-11.[address] [facility] Comment on above: Order Comment: Speci men Type: BLOOD SPECIMENOrdering Facility: 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 Normal [facility] metabolic 2000 panelon 02-26-2024 Albumin [Mass/Vol] 3.9 g/dL Normal 3.9-4.9 [facility] Comment on above: Order Comment: Speci men Type: BLOOD SPECIMENOrdering Facility: [facility] Address: [address] [place] [address] Performed By: #### 2 4323-8 ####[facility] LABCLIA [id number] [place] [address] ALP [Catalytic activity/Vol] 78 U/L Normal 38-113 [facility] Comment on above: Order Comment: Speci men Type: BLOOD SPECIMENOrdering Facility: [facility] Address: [address] [place] [address] Performed By: #### 2 4323-8 ####[facility] LABCLIA [id number] [place] [address] ALT [Catalytic activity/Vol] 8 U/L Low 10-54 [facility] Comment on above: Order Comment: Speci men Type: BLOOD SPECIMENOrdering Facility: [facility] Address: [address] [place] [address] Performed By: #### 2 4323-8 ####[facility] LABCLIA [id number] [place] [address] Anion gap [Moles/Vol] 6 mmol/L Low 8-15 [facility] Comment on above: Order Comment: Speci men Type: BLOOD SPECIMENOrdering Facility: [facility] Address: [address] [place] [address] Performed By: #### 2 4323-8 ####[facility] LABCLIA [id number] [place] [address] AST [Catalytic activity/Vol] 13 U/L Low 14-40 [facility] Comment on above: Order Comment: Speci men Type: BLOOD SPECIMENOrdering Facility: [facility] Address: [address] [place] [address] Performed By: #### 2 4323-8 ####[facility] LABCLIA [id number] [place] [address] Bilirubin [Mass/Vol] 0.8 mg/dL Normal 0.2-1.3 [facility] Comment on above: Order Comment: Speci men Type: BLOOD SPECIMENOrdering Facility: [facility] Address: [address] [place] [address] Performed By: #### 2 4323-8 ####[facility] LABCLIA [id number] [place] [address] Calcium [Mass/Vol] 8.9 mg/dL Normal 8.5-10.2 [facility] Comment on above: Order Comment: Speci men Type: BLOOD SPECIMENOrdering Facility: [facility] Address: [address] [place] [address] Performed By: #### 2 4323-8 ####[facility] LABCLIA [id number] [place] [address] Chloride [Moles/Vol] 103 mmol/L Normal 98-107 [facility] Comment on above: Order Comment: Speci men Type: BLOOD SPECIMENOrdering Facility: [facility] Address: [address] [place] [address] Performed By: #### 2 4323-8 ####[facility] LABCLIA [id number] [place] [address] CO2 [Moles/Vol] 30 mmol/L Normal 22-30 [facility] Comment on above: Order Comment: Speci men Type: BLOOD SPECIMENOrdering Facility: [facility] Address: [address] [place] [address] Performed By: #### 2 4323-8 ####[facility] LABCLIA [id number] [place] [address] Creatinine [Mass/Vol] 1.70 mg/dL High 0.73-1.22 [facility] Comment on above: Order Comment: Speci men Type: BLOOD SPECIMENOrdering Facility: [facility] Address: [address] [place] [address] Performed By: #### 2 4323-8 ####[facility] LABCLIA [id number] [place] [address] Creatinine and Glomerular filtration rate.predicted panel (S/P/Bld) 41 mL/min/1.73m??? Low >=60 [facility] Comment on above: Order Comment: Michelle bueno Type: BLOOD SPECIMENOrdering Facility: [facility] Address: [address] [place] [address] Result Comment: Chanda mated Glomerular Filtration Rate [...] actual GFR. Performed By: #### 2 4323-8 ####[facility] LABCLIA [id number] [place] [address] Glucose [Mass/Vol] 175 mg/dL High 74-99 [facility] Comment on above: Order Comment: Michelle bueno Type: BLOOD SPECIMENOrdering Facility: [facility] Address: [address] [place] [address] Result Comment: The [place] [employer] (ADA) provides guidance for cutoff [...] Standards of Medical Care in Diabetes 2016, [place] [employer]. Diabetes Care. 2016.39(Suppl 1). Performed By: #### 2 4323-8 ####[facility] LABCLIA [id number] [place] [address] Potassium [Moles/Vol] 4.8 mmol/L Normal 3.7-5.1 [facility] Comment on above: Order Comment: Speci men Type: BLOOD SPECIMENOrdering Facility: [facility] Address: [address] [place] [address] Performed By: #### 2 4323-8 ####[facility] LABCLIA [id number] [place] [address] Protein [Mass/Vol] 6.7 g/dL Normal 6.3-8.0 [facility] Comment on above: Order Comment: Speci men Type: BLOOD SPECIMENOrdering Facility: [facility] Address: [address] [place] [address] Performed By: #### 2 4323-8 ####[facility] LABIA [id number] [place] [address] Sodium [Moles/Vol] 139 mmol/L Normal 136-144 [facility] Comment on above: Order Comment: Speci men Type: BLOOD SPECIMENOrdering Facility: [facility] Address: [address] [place] [address] Performed By: #### 2 4323-8 ####[facility] LABCLIA [id number] [place] [address] Urea nitrogen [Mass/Vol] 23 mg/dL Normal 9-24 [facility] Comment on above: Order Comment: Speci men Type: BLOOD SPECIMENOrdering Facility: [facility] Address: [address] [place] [address] Performed By: #### 2 4323-8 ####[facility] LABIA [id number] [place] [address] IMMUNOFIXATION SCREEN, SERUM on 02-26-2024 INTERPRETATION (MPA) Atypical restricted bands are present in the IgG and kappa regions. Consistent with IgG kappa monoclonal gammopathy. Normal [facility] Comment on above: Order Comment: Speci men Type: BLOOD SPECIMENOrdering Facility: [facility] Address: [address] [place] [address] Performed By: #### I FESC ####[facility] LABCLIA [id number] [address] MPA RESULT M protein is present. Abnormal No M p rotein is identified. [facility] Comment on above: Order Comment: Speci men Type: BLOOD SPECIMENOrdering Facility: [facility] Address: [address] [place] [address] Performed By: #### I FESC ####[facility] LABIA [id number] [address] OF [place] STAFF REVIEW (MPA) Reviewed by Dr. Marcel White MD [facility] Comment on above: Order Comment: Speci men Type: BLOOD SPECIMENOrdering Facility: [facility] Address: [address] [place] [address] Performed By: #### I FESC ####[facility] LABIA [id number] [place] [address] [place] IMMUNOGLOBULINS,IGG,IGA,IGMo n 02-26-2024 IgA [Mass/Vol] 96 mg/dL Normal 70-400 [facility] Comment on above: Order Comment: Speci men Type: BLOOD SPECIMENOrdering Facility: [facility] Address: [address] [place] [address] Performed By: #### S ERIMM ####[facility] LABCLIA [id number] [place] [address] [place] IgG [Mass/Vol] 1109 mg/dL Normal 700-1600 [facility] Comment on above: Order Comment: Speci men Type: BLOOD SPECIMENOrdering Facility: [facility] Address: [address] [place] [address] Performed By: #### S ERIMM ####[facility] LABIA [id number] [place] [address] [id number] [address] [place] IgM [Mass/Vol] 17 mg/dL Low 40-230 [facility] Comment on above: Order Comment: Speci men Type: BLOOD SPECIMENOrdering Facility: [facility] Address: [address] [place] [address] Performed By: #### S FRED ####[facility] LABCLIA [id number] [place] [address] [place] KAPPA/DANIELS,FREE,SERon 2023 Immunoglobulin light chains.kappa.free (S) [Mass/Vol] 40.3 mg/L High 3.3-19.4 [facility] Comment on above: Order Comment: Speci men Type: BLOOD SPECIMEN [facility]: [facility] Address: [address] [place] [address] Result Comment: Rare ly, increased serum free light chains levels may not be detected or accurately quantified due to prozone phenomenon or in high viscosity samples using this immunoturbidimetric assay. Correlation with other laboratory results and clinical findings is recommended. The [facility] Free Light Chain was performed using the Binding Site Optilite immunoturbidimetric method. Result obtained with different assay methods or kits cannot be used interchangeably. Performed By: #### K LFRS #### [facility] CLIA [id number] [address] [place] [address] [place] Immunoglobulin light chains.kappa/Immun oglobulin light chains.lambda (S) [Mass ratio] 1.57 Normal 0.26-1.65 [facility] Comment on above: Order Comment: Speci men Type: BLOOD SPECIMEN [facility]: [facility] Address: [address] [place] [address] Performed By: #### K LFRS #### [facility] CLIA [id number] [address] [place] [address] [place] Immunoglobulin light chains.lambda.free [Mass/Vol] 25.6 mg/L Normal 5.7-26.3 [facility] Comment on above: Order Comment: Speci men Type: BLOOD SPECIMEN [facility]: [facility] Address: [address] [place] [address] Result Comment: Rare ly, increased serum free [...] #### [facility] CLIA [id number] [address] [place] [address] [place] PROTEIN ELECTROPHORESIS SERU M WITH TOÑITO (P)on 02-26-2024 Albumin [Mass/Vol] 4.08 g/dL Normal 3.43-5.41 [facility] Comment on above: Order Comment: Speci men Type: BLOOD SPECIMENOrdering Facility: [facility] Address: [address] [place] [address] Performed By: #### L [id number] ####[facility] LABCLIA [id number] [place] [address] [place] Alpha 1 globulin Elph [Mass/Vol] 0.25 g/dL Normal 0.18-0.43 [facility] Comment on above: Order Comment: Speci men Type: BLOOD SPECIMENOrdering Facility: [facility] Address: [address] [place] [address] Performed By: #### L [id number] ####[facility] LABCLIA [id number] [place] [address] [place] Alpha 2 globulin Elph [Mass/Vol] 0.67 g/dL Normal 0.42-0.98 [facility] Comment on above: Order Comment: Speci men Type: BLOOD SPECIMENOrdering Facility: [facility] Address: [address] [place] [address] Performed By: #### L [id number] ####[facility] LABCLIA [id number] [place] [address] [place] Beta globulin Elph [Mass/Vol] 0.65 g/dL Normal 0.61-1.17 [facility] Comment on above: Order Comment: Speci men Type: BLOOD SPECIMENOrdering Facility: [facility] Address: [address] [place] [address] Performed By: #### L [id number] ####[facility] LABCLIA [id number] [place] [address] [place] COMMENT (SERUM PROT ELECTRO) Monoclonal Protein analysis (immunofixation) is not indicated. Normal [facility] Comment on above: Order Comment: Speci men Type: BLOOD SPECIMENOrdering Facility: [facility] Address: [address] [place] [address] Performed By: #### L [id number] ####[facility] LABCLIA [id number] [place] [address] [place] Gamma globulin Elph [Mass/Vol] 1.05 g/dL Normal 0.53-1.51 [facility] Comment on above: Order Comment: Speci men Type: BLOOD SPECIMENOrdering Facility: [facility] Address: [address] [place] [address] Performed By: #### L [id number] ####[facility] LABCLIA [id number] [place] [address] [place] INTERPRETATION COMMENT FOR PROTEIN ELECTROPHORESIS See separate immunofixation report for characterization of monoclonal gammopathy. Normal [facility] Comment on above: Order Comment: Speci men Type: BLOOD SPECIMENOrdering Facility: [facility] Address: [address] [place] [address] Performed By: #### L [id number] ####[facility] LABCLIA [id number] [place] [address] [place] M-PROTEIN LOCATION Gamma Fraction 1 Normal [facility] Comment on above: Order Comment: Speci men Type: BLOOD SPECIMENOrdering Facility: [facility] Address: [address] [place] [address] Performed By: #### L [id number] ####[facility] LABIA [id number] [place] [address] [place] Protein Fractions [Interp] An M protein is identified on protein electrophoresis. Abnormal No definitive M protein is identified on protein electrophores is. [facility] Comment on above: Order Comment: Speci men Type: BLOOD SPECIMENOrdering Facility: [facility] Address: [address] [place] [address] Performed By: #### L [id number] ####[facility] LABIA [id number] [place] [address] [place] Protein.monoclonal Elph [Mass/Vol] 0.67 g/dL High <=0.00 [facility] Comment on above: Order Comment: Speci men Type: BLOOD SPECIMENOrdering Facility: [facility] Address: [address] [place] [address] Performed By: #### L [id number] ####[facility] LABIA [id number] [place] [address] [place] SPE STAFF REVIEW Reviewed by Dr. Marcel White MD [facility] Comment on above: Order Comment: Speci men Type: BLOOD SPECIMENOrdering Facility: [facility] Address: [address] [place] [address] Performed By: #### L [id number] ####[facility] LABIA [id number] [place] [address] [place] Prot SerPl-mCncon 02-26-2024 Protein [Mass/Vol] 6.3 g/dL Normal 6.3-8.0 [facility] Comment on above: Order Comment: Speci men Type: BLOOD SPECIMENOrdering Facility: [facility] Address: [address] [place] [address] Performed By: #### 2 885-2 ####[facility] LABCLIA [id number] [place] [id number] [place] Basic metabolic 2000 panelon 08-28-2023 Anion gap [Moles/Vol] 9 mmol/L 9 - 18 mmol/L [facility] Calcium [Mass/Vol] 9.0 mg/dL 8.5 - 10. 2 mg/dL [facility] Chloride [Moles/Vol] 102 mmol/L 97 - 105 mmol/L [facility] CO2 [Moles/Vol] 27 mmol/L 22 - 30 mmol/L [facility] Creatinine [Mass/Vol] 1.52 mg/dL High 0.73 - 1.22 mg/dL [facility] Estimated Glomerular Filtration Rate 47 mL/min/1.73m Low >=60 mL/min/1.73m [facility] Glucose [Mass/Vol] 253 mg/dL High 74 - 99 mg/dL [facility] Potassium [Moles/Vol] 4.5 mmol/L 3.7 - 5.1 mmol/L [facility] Sodium [Moles/Vol] 138 mmol/L 136 - 144 mmol/L [facility] Urea nitrogen [Mass/Vol] 29 mg/dL High 9 - 24 mg/dL [facility] CBC W Auto Differential pane l (Bld)on 08-28-2023 Basophils (Bld) [#/Vol] 0.05 10*3/uL <0.11 k/uL [facility] Basophils/100 WBC (Bld) 0.7 % [facility] Differential cell count method Nom (Bld) Auto [facility] Eosinophils (Bld) [#/Vol] 0.07 10*3/uL <0.46 k/uL [facility] Eosinophils/100 WBC (Bld) 1.0 % [facility] Erythrocyte distribution width (RBC) [Ratio] 14.0 % 11.5 - 15.0 % [facility] Hematocrit (Bld) [Volume fraction] 39.5 % 39.0 - 51.0 % [facility] ic Hemoglobin (Bld) [Mass/Vol] 13.7 g/dL 13.0 - 17.0 g/dL [facility] Immature granulocytes (Bld) [#/Vol] 0.03 10*3/uL <0.10 k/uL [facility] Immature granulocytes/100 WBC (Bld) 0.4 % [facility] Lymphocytes (Bld) [#/Vol] 0.82 10*3/uL Low 1.00 - 4.00 k/uL [facility] Lymphocytes/100 WBC (Bld) 11.7 % [facility] MCH (RBC) [Entitic mass] 34.7 pg High 26.0 - 34.0 pg [facility] MCHC (RBC) [Mass/Vol] 34.7 g/dL 30.5 - 36.0 g/dL [facility] MCV (RBC) [Entitic vol] 100.0 fL 80.0 - 100.0 fL [facility] Monocytes (Bld) [#/Vol] 1.05 10*3/uL High <0.87 k/uL [facility] Monocytes/100 WBC (Bld) 15.0 % [facility] Neutrophils (Bld) [#/Vol] 4.96 10*3/uL 1.45 - 7.50 k/uL [facility] Neutrophils/100 WBC (Bld) 71.2 % [facility] Nucleated RBC (Bld) [#/Vol] <0.01 k/uL [facility] Nucleated RBC/100 WBC (Bld) [Ratio] 0.0 /100 WBC [facility] ic Platelet mean volume (Bld) [Entitic vol] 9.8 fL 9.0 - 12.7 fL [facility] Platelets (Bld) [#/Vol] 207 10*3/uL 150 - 400 k/uL [facility] RBC (Bld) [#/Vol] 3.95 10*6/uL Low 4.20 - 6.0 0 m/uL [facility] WBC (Bld) [#/Vol] 6.98 10*3/uL 3.70 - 11. 00 k/uL [facility] PSA, FREE AND TOTAL RATIOon 08-29-2022 % Free PSA 25.9 % Normal [facility] Comment on above: Result Comment: The [...] men. Performed By: #### P SAFREE #### [facility] [address] [place] [address] Dr. Tigre Gant Prostate specific Ag [Mass/Vol] 4.4 ng/mL Critically high 0.0-4.0 [facility] Comment on above: Result Comment: Renee SIGALAIA methodology. . According to the [place] [employer], Serum PSA should decrease and [...] disease. Performed By: #### P SAFREE #### [facility] [address] [address] [address] Tigre Gant PSA, Free 1.14 ng/mL Normal N/A [facility] Comment on above: Result Comment: Renee melton ECLSHERRIE methodology. Performed By: #### P SAFREE #### [facility] [address] [place] [address] Dr. Tigre Gant PSA, FREE AND TOTAL RATIOon 03-16-2022 % Free PSA 19.1 % Normal [facility] Comment on above: Result Comment: The [...] men. Performed By: #### A 1C #### [facility] [address] [place] [address] Dr. Tigre Gant PSA, Free 1.03 ng/mL Normal N/A [facility] Comment on above: Result Comment: Renee melton ECLIA methodology. Performed By: #### A 1C #### [facility] [address] [place] [address] Dr. Tigre Gant Prostate specific Ag [Mass/Vol] 5.4 ng/mL Critically high 0.0-4.0 [facility] Comment on above: Result Comment: Roch rachel ECLIA methodology. . According to the [place] [employer], Serum PSA should decrease and [...] disease. Performed By: #### A 1C #### [facility] [address] [place] [address] Dr. Tigre Gant CBC AUTO DIFFon 03-14-2022 BASO # 0.1 103/ul Normal 0.0-0.1 [facility] Comment on above: Performed By: #### C BC #### [facility] [address] [place] [address] Dr. Tigre Gant Basophils/100 WBC (Bld) 2.6 % Critically high 0.2-2.0 [facility] Comment on above: Performed By: #### C BC #### [facility] [address] [place] [address] Dr. Tigre Gant EO # 0.4 103/ul Normal 0.0-0.7 [facility] Comment on above: Performed By: #### C BC #### [facility] [address] [place] [address] Dr. Tigre Gant Eosinophils/100 WBC (Bld) 7.7 % Critically high 0.9-7.0 [facility] Comment on above: Performed By: #### C BC #### [facility] [address] [place] [address] Dr. Tigre Gant Erythrocyte distribution width (RBC) [Ratio] 14.6 % Normal 11.0-15.0 [facility] Comment on above: Performed By: #### C BC #### [facility] [address] [place] [address] Dr. Tigre Gant Hematocrit (Bld) [Volume fraction] 39.0 % Critically low 42.0-54.0 [facility] Comment on above: Performed By: #### C BC #### [facility] [address] [place] [address] Dr. Tigre Gant Hemoglobin (Bld) [Mass/Vol] 12.9 g/dL Critically low 14.0-18.0 [facility] Comment on above: Performed By: #### C BC #### [facility] [address] [place] [address] Dr. Tigre Gant IG # 0.03 10e3/ul Normal 0.00-0.03 [facility] Comment on above: Performed By: #### C BC #### [facility] [address] [place] [address] Dr. Tigre Gant IG % 0.6 % Critically high 0.0-0.5 [facility] Comment on above: Performed By: #### C BC #### [facility] [address] [place] [address] Dr. Tigre Gant LYMPH # 1.0 103/ul Critically low 1.2-3.8 [facility] Comment on above: Performed By: #### C BC #### [facility] [address] [place] [address] Dr. Tigre Gant Lymphocytes/100 WBC (Bld) 19.9 % Critically low 20.5-60.0 [facility] Comment on above: Performed By: #### C BC #### [facility] [address] [place] [address] Dr. Tigre Gant MANUAL DIFF REQ NO Normal [facility] Comment on above: Performed By: #### C BC #### [facility] [address] [place] [address] Dr. Tigre Gant MCH (RBC) [Entitic mass] 33.7 pg Normal 25.9-34.0 [facility] Comment on above: Performed By: #### C BC #### [facility] [address] [place] [address] Dr. Tigre Gant MCHC (RBC) [Mass/Vol] 33.1 g/dL Normal 29.9-35.2 [facility] Comment on above: Performed By: #### C BC #### [facility] [address] [place] [address] Dr. Tigre Gant MCV (RBC) [Entitic vol] 101.8 fL Critically high 80.0-94.0 [facility] Comment on above: Performed By: #### C BC #### [facility] [address] [place] [address] Dr. Tigre Gant MONO # 0.7 103/ul Normal 0.3-0.8 [facility] Comment on above: Performed By: #### C BC #### [facility] [address] [place] [address] Dr. Tigre Gant Monocytes/100 WBC (Bld) 13.6 % Critically high 1.7-12.0 [facility] Comment on above: Performed By: #### C BC #### [facility] [address] [place] [address] Dr. Tigre Gant NEUT # 2.7 103/ul Normal 1.4-6.5 [facility] Comment on above: Performed By: #### C BC #### [facility] [address] [place] [address] Dr. Tigre Gant Neutrophils/100 WBC (Bld) 55.6 % Normal 43.0-75.0 [facility] Comment on above: Performed By: #### C BC #### [facility] [address] [place] [address] Dr. Tigre Gant Platelet mean volume (Bld) [Entitic vol] 10.7 fL Normal 9.5-13.5 [facility] Comment on above: Performed By: #### C BC #### [facility] [address] [place] [address] Dr. Tigre Gant PLT 209 103/ul Normal 150-450 [facility] Comment on above: Performed By: #### C BC #### [facility] [address] [place] [address] Dr. Tigre Gant RBC 3.83 106/ul Critically low 4.70-6.10 [facility] Comment on above: Performed By: #### C BC #### [facility] [address] [place] [address] Dr. Tigre Gant WBC 4.9 103/ul Normal 4.0-11.0 [facility] Comment on above: Performed By: #### C BC #### [facility] [address] [place] [address] Dr. Tigre Gant FREE T3on 03-14-2022 FREE T3 2.60 pg/mlL Normal 2.18-3.98 [facility] Comment on above: Performed By: #### A 1C #### [facility] [address] [place] [address] Dr. Tigre Gant GLYCOHEMOGLOBIN A1Con 2021 ADA RECOMMENDATION SEE BELOW Normal [facility] Comment on above: Result Comment: ADA RECOMMENDED LIMIT 4.0 - 6.0 ADA THERAPEUTIC TARGET < 7.0 ACTION SUGGESTED > 7.0 Performed By: #### A 1C #### [facility] [address] [place] [address] Dr. Tigre Gant Glucose [Mass/Vol] 189 mg/dL Normal [facility] Comment on above: Performed By: #### A 1C #### [facility] [address] [place] [address] Dr. Tigre Gant HbA1c (Bld) [Mass fraction] 8.2 % Critically high 4.5-6.2 [facility] Comment on above: Performed By: #### A 1C #### [facility] [address] [place] [address] Dr. Tigre Gant LIPID PROFILEon 03-14-2022 CHOL-HDL RATIO NORM SEE BELOW Normal [facility] Comment on above: Result Comment: 3.3 - 4.4 LOW RISK 4.4 - 7.1 AVERAGE RISK 7.1 - 11.0 MODERATE RISK >11.0 HIGH RISK Performed By: #### C MP, TSH, LIPID, FT3, T4 #### [facility] [address] [place] [address] Dr. Tigre Gant Cholesterol [Mass/Vol] 157 mg/dL Normal <=200 [facility] Comment on above: Performed By: #### C MP, TSH, LIPID, FT3, T4 #### [facility] [address] [place] [address] Dr. Tigre Gant Cholesterol in HDL [Mass/Vol] 62 mg/dL Critically high 40-60 [facility] Comment on above: Performed By: #### C MP, TSH, LIPID, FT3, T4 #### [facility] [address] [place] [address] Dr. Tigre Gant Cholesterol in LDL [Mass/Vol] 62.8 mg/dL Normal [facility] Comment on above: Performed By: #### C MP, TSH, LIPID, FT3, T4 #### [facility] [address] [place] [address] Dr. Tigre Gant Cholesterol.total/ Cholesterol in HDL [Mass ratio] 2.5 {ratio} Normal [facility] Comment on above: Performed By: #### C MP, TSH, LIPID, FT3, T4 #### [facility] [address] [place] [address] Dr. Tigre Gant HDL NORMAL > or = 60 mg/dl - LO W CARDIOVASCULAR RISK <40 mg/dl - HIGH CARDIOVASCULAR RISK Normal [facility] Comment on above: Performed By: #### C MP, TSH, LIPID, FT3, T4 #### [facility] [address] [place] [address] Dr. Tigre Gant LDL CALC NORMAL SEE BELOW Normal [facility] Comment on above: Result Comment: <100 mg/dl OPTIMAL 100 - 129 mg/dl NEAR OR ABOVE OPTIMAL 130 - 159 mg/dl BORDERLINE HIGH 160 - 189 mg/dl HIGH >190 mg/dl VERY HIGH Performed By: #### C MP, TSH, LIPID, FT3, T4 #### [facility] [address] [place] [address] Dr. Tigre Gant Triglyceride [Mass/Vol] 161 mg/dL Critically high <=150 [facility] Comment on above: Performed By: #### C MP, TSH, LIPID, FT3, T4 #### [facility] [address] [address] [address] Tigre Gant VLDL CALC 32.2 mg/dL Normal [facility] Comment on above: Performed By: #### C MP, TSH, LIPID, FT3, T4 #### [facility] [address] [address] [address] Tigre Gant PROF 14(COMP METB)on 022 Albumin [Mass/Vol] 3.5 g/dL Normal 3.4-5.0 [facility] Comment on above: Performed By: #### C MP, TSH, LIPID, FT3, T4 #### [facility] [address] [place] [address] Dr. Tigre Gant Albumin/Globulin [Mass ratio] 1.1 {ratio} Normal [facility] Comment on above: Performed By: #### C MP, TSH, LIPID, FT3, T4 #### [facility] [address] [address] [address] Tigre Gant ALP [Catalytic activity/Vol] 67 U/L Normal 46-116 [facility] Comment on above: Performed By: #### C MP, TSH, LIPID, FT3, T4 #### [facility] [address] [address] [address] Tigre Gant ALT [Catalytic activity/Vol] 17 U/L Normal 16-63 [facility] Comment on above: Performed By: #### C MP, TSH, LIPID, FT3, T4 #### [facility] [address] [address] [address] Tigre Gant Anion gap [Moles/Vol] 14.6 mmol/L Normal [facility] Comment on above: Performed By: #### C MP, TSH, LIPID, FT3, T4 #### [facility] [address] [address] [address] Tigre Gant AST [Catalytic activity/Vol] 16 U/L Normal 15-37 [facility] Comment on above: Performed By: #### C MP, TSH, LIPID, FT3, T4 #### [facility] [address] [place] [address] Dr. Tigre Gant Bilirubin [Mass/Vol] 1.2 mg/dL Critically high 0.2-1.0 [facility] Comment on above: Performed By: #### C MP, TSH, LIPID, FT3, T4 #### [facility] [address] [address] [address] Tigre Gant Calcium [Mass/Vol] 7.8 mg/dL Critically low 8.5-10.1 [facility] Comment on above: Performed By: #### C MP, TSH, LIPID, FT3, T4 #### [facility] [address] [place] [address] Dr. Tigre Gant Chloride [Moles/Vol] 106 mmol/L Normal 98-107 [facility] Comment on above: Performed By: #### C MP, TSH, LIPID, FT3, T4 #### [facility] [address] [place] [address] Dr. Tigre Gant CO2 [Moles/Vol] 26.5 mmol/L Normal 21.0-32.0 [facility] Comment on above: Performed By: #### C MP, TSH, LIPID, FT3, T4 #### [facility] [address] [place] [address] Dr. Tigre Gant Creatinine [Mass/Vol] 1.48 mg/dL Critically high 0.70-1.30 [facility] Comment on above: Performed By: #### C MP, TSH, LIPID, FT3, T4 #### [facility] [address] [place] [address] Dr. Tigre Gant EGFR-AF MARSHALLESE 56 mL/min/1.73m2 Critically low >=60 [facility] Comment on above: Performed By: #### C MP, TSH, LIPID, FT3, T4 #### [facility] [address] [place] [address] Dr. Tigre Gant EGFR-NON AF MARSHALLESE 46 mL/min/1.73m2 Critically low >=60 [facility] Comment on above: Performed By: #### C MP, TSH, LIPID, FT3, T4 #### [facility] [address] [place] [address] Dr. Tigre Gant Globulin (S) [Mass/Vol] 3.3 g/dL Normal [facility] Comment on above: Performed By: #### C MP, TSH, LIPID, FT3, T4 #### [facility] [address] [place] [address] Dr. Tigre Gant Glucose [Mass/Vol] 99 mg/dL Normal 74-106 [facility] Comment on above: Performed By: #### C MP, TSH, LIPID, FT3, T4 #### [facility] [address] [place] [address] Dr. Tigre Gant Potassium [Moles/Vol] 4.1 mmol/L Normal 3.5-5.1 [facility] Comment on above: Performed By: #### C MP, TSH, LIPID, FT3, T4 #### [facility] [address] [place] [address] Dr. Tigre Gant Protein [Mass/Vol] 6.8 g/dL Normal 6.4-8.2 [facility] Comment on above: Performed By: #### C MP, TSH, LIPID, FT3, T4 #### [facility] [address] [place] [address] Dr. Tigre Gant Sodium [Moles/Vol] 143 mmol/L Normal 136-145 [facility] Comment on above: Performed By: #### C MP, TSH, LIPID, FT3, T4 #### [facility] [address] [place] [address] Dr. Tigre Gant Urea nitrogen [Mass/Vol] 17.0 mg/dL Normal 7.0-18.0 [facility] Comment on above: Performed By: #### C MP, TSH, LIPID, FT3, T4 #### [facility] [address] [place] [address] Dr. Tigre Gant Urea nitrogen/Creatinin e [Mass ratio] 11.5 mg/mg Normal [facility] Comment on above: Performed By: #### C MP, TSH, LIPID, FT3, T4 #### [facility] [address] [address] [address] Tigre Gant T4on 03-14-2022 T4 [Mass/Vol] 6.30 ug/dL Normal 4.50-12.10 [facility] Comment on above: Performed By: #### C MP, TSH, LIPID, FT3, T4 #### [facility] [address] [id number] Tigre Gant TSHon 03-14-2022 TSH 3.904 uIU/mL Critically high 0.358-3.740 [facility] Comment on above: Performed By: #### C MP, TSH, LIPID, FT3, T4 #### [facility] [address] [address] [address] iTgre Gant Ambulatory Visit Summaryon 0 12-26-2021 Ambulatory Visit Summary ZACH MANUEL :1945 Visit Date:12/26/2021 Ambulatory Visit Instructions Your Diagnosis BPH with urinary obstruction Elevated PSA Family history of prostate cancer Tests Performed Urnls Dip Stick Auto w/o Microscopy POC 62770 Your Care Team Attending Physician - JOSHUA [...] Where: [facility] [address] [place] [address]- [phone] Medications What How Much When Instructions Unchanged [...] Urnls Dip Stick Auto w/o Microscopy POC 30822 (12/26/2021) Bilirubin Urine Dipstick - Negative Blood Urine Dipstick - Negative Glucose Urine Dipstick - Negative Ketones Urine Dipstick - Negative Leukocytes Urine Dipstick - Negative Nitrite Urine Dipstick - Negative Protein Urine Dipstick - Negative Specific Carrington Urine Dipstick - 1.025 Urine Appearance Urine [...] including vitamins, herbs, eye drops, creams, and pcdp-ghd-qunfbdx medicines. ? Any problems you or family members have had with anesthetic medicines. ? Any blood disorders you have. ? Any surgeries you menjivar (more content not included)... Normal [facility] Patient Educationon 12-27-19 Patient Education Urology Transurethral [...] including vitamins, herbs, eye drops, creams, and sgfw-zkw-qqchouu medicines. ? Any problems you or family [...] tells you to take them. ? Taking inec-igk-ujjscfn medicines, vitamins, herbs, and supplements. Eating and [...] be jojo (more content not included)... 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 3. Family history of prostate cancer (Z80.42: Family history of malignant neoplasm of prostate) father Follow-up With When Contact Information JOSHUA MONTELONGO, Roxana Rodriguez, URL [facility] [address] [place] [address]- [phone] Additional Instructions: Patient Education Transurethral Resection of [...] (more content not included)... Normal [facility] Comment on above: Result Comment: Elec tronically Signed By: Roxana LEWIS MD\.br\Date and Time Signed: 12/26/21 14:16 EDT\.br\Electronically Co-Signed By: Erica Moses MA\.br\Date and Time Co-Signed: 12/26/21 14:16 EDT Lab Report[facility] 12-21-2021 Lab Reports [id number] 0CD:127 Normal [facility] PSA, FREE AND TOTAL RATIOon 12-21-2021 % Free PSA 24.5 % Normal [facility] Comment on above: Result Comment: The [...] men. Performed By: #### A 1C #### [facility] [address] [place] [address] Dr. Tigre Gant Prostate specific Ag [Mass/Vol] 4.2 ng/mL Critically high 0.0-4.0 [facility] Comment on above: Result Comment: Renee JONES methodology. . According to the [employer], Serum PSA should decrease and [...] disease. Performed By: #### A 1C #### [facility] [address] [place] [address] Dr. Tigre Gant PSA, Free 1.03 ng/mL Normal N/A [facility] Comment on above: Result Comment: Renee JONES methodology. Performed By: #### A 1C #### [facility] [address] [place] [address] Dr. Tigre Gant Lab Report[facility] 11-14-2021 Lab Reports [id number] 0CD:127 Normal [facility] CLOSTRIDIUM DIFFICILE PCRon 09-13-2021 C difficile Toxin Gene SHOSHANA Negative Normal Negative [facility] Comment on above: Performed By: #### A 1C #### [facility] [address] [place] [address] Dr. Tigre Gant GI PANEL (PCR)on 09-12-2021 Adenovirus F 40/41 Not detected Normal NOT DETECTED [facility] Comment on above: Performed By: #### G IPANEL #### [facility] [address] [place] [address] Dr. Tigre Gant Astrovirus Not detected Normal NOT DETECTED [facility] Comment on above: Performed By: #### G IPANEL #### [facility] [address] [place] [address] Dr. Tigre Gant C. Diff toxin A/B Not detected Normal NOT DETECTED [facility] Comment on above: Performed By: #### G IPANEL #### [facility] [address] [address] [address] Tigre Gant Campylobacter Not detected Normal NOT DETECTED [facility] Comment on above: Performed By: #### G IPANEL #### [facility] [address] [place] [address] Dr. Tigre Gant Cryptosporidium Not detected Normal NOT DETECTED [facility] Comment on above: Performed By: #### G IPANEL #### [facility] [address] [place] [address] Dr. Tigre Gant Cyclos. Cayetanensis Not detected Normal NOT DETECTED [facility] Comment on above: Performed By: #### G IPANEL #### [facility] [address] [place] [address] Dr. Tigre Gant E. Coli O157 Not Applicable Normal Not Applicable [facility] Comment on above: Performed By: #### G IPANEL #### [facility] [address] [place] [address] Dr. Tigre Gant E. histolytica Not detected Normal NOT DETECTED [facility] Comment on above: Performed By: #### G IPANEL #### [facility] [address] [place] [address] Dr. Tigre Gant EAEC Not detected Normal NOT DETECTED [facility] Comment on above: Performed By: #### G IPANEL #### [facility] [address] [address] [address] Tigre Gant EIEC Not detected Normal NOT DETECTED [facility] Comment on above: Performed By: #### G IPANEL #### [facility] [address] [place] [address] Dr. Tigre Gant EPEC Not detected Normal NOT DETECTED [facility] Comment on above: Performed By: #### G IPANEL #### [facility] [address] [place] [address] Dr. Tigre Gant ETEC Not detected Normal NOT DETECTED [facility] Comment on above: Performed By: #### G IPANEL #### [facility] [address] [place] [address] Dr. Tigre Valverde Lamblia Not detected Normal NOT DETECTED [facility] Comment on above: Performed By: #### G IPANEL #### [facility] [address] [place] [address] Dr. Tigre ROSALES CONTROLS PASSED Normal [facility] Comment on above: Performed By: #### G IPANEL #### [facility] [address] [place] [address] Dr. [address] [facility] HEADER GI PANEL BACTERIA Normal T [facility] Comment on above: Performed By: #### G IPANEL #### [facility] [address] [place] [address] Dr. Tigre CAPUTO ECOLI GI PANEL DIARRHEAGEN IC E.COLI / SHIGELLA Normal [facility] Comment on above: Performed By: #### G IPANEL #### [facility] [address] [place] [address] Dr. Tigre CAPUTO INFO SEE BELOW Normal [facility] Comment on above: Result Comment: EAEC - Enteroaggregative E. Coli EPEC- Enteropathogenic E. Coli ETEC- Enterotoxigenic E. Coli lt/st STEC- Shigella-like toxin-producing E. Coli stx1/stx2 EIEC- Shigella/Enteroinvasive E. Coli Performed By: #### G IPANEL #### [facility] [address] [place] [address] Dr. Tigre CAPUTO PARASITES GI PANEL PARASITES Normal [facility] Comment on above: Performed By: #### G IPANEL #### [facility] [address] [place] [address] Dr. Tigre CAPUTO VIRUS GI PANEL VIRUSES Normal [facility] Comment on above: Performed By: #### G IPANEL #### [facility] [address] [place] [address] Dr. Tigre Gant Norovirus GI/GII Not detected Normal NOT DETECTED [facility] Comment on above: Performed By: #### G IPANEL #### [facility] [address] [place] [address] Dr. Tigre Gant P. Shigelloides Not detected Normal NOT DETECTED [facility] Comment on above: Performed By: #### G IPANEL #### [facility] [address] [place] [address] Dr. Tigre Gant Rotavirus A Not detected Normal NOT DETECTED [facility] Comment on above: Performed By: #### G IPANEL #### [facility] [address] [place] [address] Dr. Tigre Gant Salmonella Not detected Normal NOT DETECTED [facility] Comment on above: Performed By: #### G IPANEL #### [facility] [address] [place] [address] Dr. Tigre Gant Sapovirus Not detected Normal NOT DETECTED [facility] Comment on above: Performed By: #### G IPANEL #### [facility] [address] [place] [address] Dr. Tigre Gant STEC Not detected Normal NOT DETECTED [facility] Comment on above: Performed By: #### G IPANEL #### [facility] [address] [place] [address] Dr. Tigre Gant Vibrio Not detected Normal NOT DETECTED [facility] Comment on above: Performed By: #### G IPANEL #### [facility] [address] [address] [address] Tigre Gant Vibrio Cholera Not detected Normal NOT DETECTED [facility] Comment on above: Performed By: #### G IPANEL #### [facility] [address] [address] [address] Tigre Gant Y. Enterocolitica Not detected Normal NOT DETECTED [facility] Comment on above: Performed By: #### G IPANEL #### [facility] [address] [address] [address] Tigre Gant XR lumbar spine 6V w bending on 05-05-2021 XR lumbar spine 6V w bending [facility] [place] [address] [place] [address] XRay Report Signed Patient: Zach Manuel MR#: [id number] 9 : 1945 Acct:[id number] Age/Sex: 76 / M ADM Date: 05/05/21 Loc: XD Room: Type: [facility] Attending Dr: Kosta Harper MD Ordering Provider: [...] Kumar Jr., M.D.05/05/2021 2:07 PM Dictation Location: [place] [address] Transcribed By: [facility] 05/05/21 1407 Dictated By: Carson Kumar Jr, MD 05/05/21 1353 Signed By: 05/05/21 1407 [facility] Lab Reportson 02-21-2021 Lab Reports [id number] 0CD:127 Normal [facility] Ambulatory Clinical Summaryo n 01-03-2021 Ambulatory Clinical Summary {[id number]}CD:[id number] Normal [facility] Patient Educationon 01-04-20 Patient Education Benign Prostatic [...] Document Reviewed: 05/15/2008 ExitCare? Patient Information ?2013 [employer]. [facility] Urology Office/Clinic Noteon 01-03-2021 Urology Office/Clinic [...] When Contact Information LEWIS Roxana MONTELONGO [address] [place] [phone] Additional Instructions: 1yr. psa Patient Education Benign [...] (more content not included)... Normal [facility] Comment on above: Result Comment: Elec tronically Signed By: Roxana LEWIS MD\.br\Date and Time Signed: 01/03/21 14:46 EDT\.br\Electronically Co-Signed By: Shayna Ramirez MA\.br\Date and Time Co-Signed: 01/03/21 14:45 EDT FEMUR RIGHT 2 VWSon 05-16-20 19 FEMUR RIGHT 2 VWS [facility] Department of Radiology [address] [place] [phone] ======== Patient Name: ZACH MANUEL : [...] hip Electronically signed by:Jazmín Hernandez. Transcribed by: [email or web address], User Resident: Electronically Signed by: JAZMÍN HERNANDEZ @ 05/16/2019 03:38 PM Normal [facility] Comment on above: Order Comment: , , = ========= , Ordering Provider - ZHENG SCOTT PA-C , FEMUR RIGHT 2 [facility] 02-14-20 19 FEMUR RIGHT 2 [facility] Department of Radiology [address] [place] [phone] ======== Patient Name: ZACH MANUEL : 1945 Sex: M Age: Race: White Pt. 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 Electronically signed by:Jazmín Hernandez. Transcribed by: [email or web address], User Resident: Electronically Signed by: JAZMÍN HERNANDEZ @ 02/13/2019 05:05 PM Normal [facility] Comment on above: Order Comment: , , = ========= , Ordering Provider - ZHENG SCOTT PA-C , FEMUR RIGHT 2 [facility] 01-10-20 19 FEMUR RIGHT 2 [facility] Department of Radiology [address] [place] [phone] ======== Patient Name: ZACH MANUEL : [...] reaction Electronically signed by:Soila Morris. Transcribed by: [email or web address], User Resident: Electronically Signed by: SOILA MORRIS @ 01/09/2019 12:25 PM Normal [facility] Comment on above: Order Comment: , , = ========= , Ordering Provider - JACQUELINE CROSS PA-C , FEMUR RIGHT 2 Son 12-11-19 19 FEMUR RIGHT 2 [facility] Department of Radiology [address] [place] [id number] ======== Patient Name: ZACH MANUEL : 1945 Sex: M Age: Race: White Pt. Location: 84 Patient Status: Ordered Date: 12/10/2018 1:20:00 PM Completed Date: 12/10/2018 01:34 PM Requesting Provider: ZHENG SCOTT Attending Provider: Report Copy To: Signs & Symptoms: S72.21XD Displ subtrochnt fx r femur, subs for clos fx w routn heal I10 History: [place] Comments: , Views (X-RAY, FEMUR): Radiologic Protocol [...] fracture Electronically signed by:Soila Morris. Transcribed by: [email or web address], User Resident: Electronically Signed by: SOILA MORRIS @ 12/10/2018 03:21 PM Normal [facility] Comment on above: Order Comment: , Vie ws (X-RAY, FEMUR): Radiologic Protocol , Weight Bearing?: Y , Views (X-RAY, FEMUR): Radiologic Protocol , Weight Bearing?: Y , , , Ordering Provider - ZHENG SCOTT PA-C , VITAMIN D 25-HYDROXYon 12-10 VITAMIN D 25-OH 40.2 ng/mL Normal 30.0-80.0 [facility] Comment on above: Result Comment: >80. 0 Toxicity possible Performed By: #### 6 2586 #### [address] FEMUR RIGHT 2 [facility] 10-29-19 19 FEMUR RIGHT 2 [facility] Department of Radiology [address] [place] [id number] ======== Patient Name: ZACH MANUEL : [...] ZHENG DEWITTC , Exam: FEMUR RIGHT 2 [facility] ======== FEMUR RIGHT 2 VWS 10/29/2018 1:58 [...] healing Electronically signed by:Soila Morris. Transcribed by: [id number], User Resident: Electronically Signed by: SOILA MORRIS @ 10/29/2018 02:17 PM Normal [facility] Comment on above: Order Comment: , , = ========= , Ordering Provider - ZHENG SCOTT PA-C , FEMUR RIGHT 2 VWSon 09-20-20 18 FEMUR RIGHT 2 [facility] Department of Radiology [address] [place] [phone] ======== Patient Name: ZACH MANUEL : [...] SCOTT PA-C , Exam: FEMUR RIGHT 2 [facility] ======== FEMUR RIGHT 2 S 09/20/2018 12:49 [...] bridging Electronically signed by:Soila Morris. Transcribed by: [email or web address], User Resident: Electronically Signed by: SOILA MORRIS @ 09/20/2018 01:08 PM Normal [facility] Comment on above: Order Comment: , Jayk ws (X-RAY, FEMUR): AP, Lateral , Views (X- RAY, FEMUR): AP, Lateral , , , Ordering Provider - ZHENG SCOTT PA-C , FEMUR RIGHT 2 Son 08-23-20 18 FEMUR RIGHT 2 [facility] Department of Radiology [address] [place] [phone] ======== Patient Name: ZACH MANUEL : 1945 Sex: M Age: Race: White Pt. Location: Patient Status: O Ordered Date: 08/23/2018 12:50:00 PM Completed Date: 08/23/2018 12:57 PM Requesting Provider: ZHENG SCOTT Attending Provider: ZHENG SCOTT Report Copy To: HANNA MATHIAS Signs & Symptoms: S72.21XD Displ subtrochnt fx r femur, subs for clos fx w routn heal I10 History: [place] Comments: , Views (X-RAY, FEMUR): AP, Lateral , Views (X-RAY, FEMUR): AP, Lateral , , , Ordering Provider - ZHENG SCOTT PA-C , Exam: FEMUR RIGHT 2 [facility] ======== FEMUR RIGHT 2 S 08/23/2018 12:57 [...] disease Electronically signed by:Soila Morris. Transcribed by: [email or web address], User Resident: Electronically Signed by: SOILA MORRIS @ 08/23/2018 02:15 PM Normal [facility] Comment on above: Order Comment: , Jaky ws (X-RAY, FEMUR): AP, Lateral , Views (X- RAY, FEMUR): AP, Lateral , , , Ordering Epi SCOTT PA-C , FEMUR RIGHT 2 [facility] 07-25-20 18 FEMUR RIGHT 2 [facility] Department of Radiology [address] [place] [id number] ======== Patient Name: ZACH MANUEL : [...] above Electronically signed by:Soila Morris. Transcribed by: [email or web address], User Resident: Electronically Signed by: SOILA MORRIS @ 07/25/2018 02:02 PM Normal [facility] Comment on above: Order Comment: , , = ========= , Ordering Provider - JACQUELINE CROSS PA-C , BASIC METABOLIC PANELon 10-2 Calcium [Mass/Vol] 8.2 mg/dL Low 8.6-10.3 The [facility] Comment on above: Order Comment: No: D o not add to previous draw Performed By: #### 5 0103 #### [facility] [address] [place] [address], [place] Chloride [Moles/Vol] 100 mmol/L Normal 98-107 [facility] Comment on above: Order Comment: No: D o not add to previous draw Performed By: #### 5 0103 #### [facility] [address] [place] [address], [place] CO2 [Moles/Vol] 25 mmol/L Normal 21-31 [facility] Comment on above: Order Comment: No: D o not add to previous draw Performed By: #### 5 0103 #### [facility] [address] [place] [address], [place] Creatinine [Mass/Vol] 1.11 mg/dL Normal 0.70-1.30 [facility] Comment on above: Order Comment: No: D o not add to previous draw Performed By: #### 5 0103 #### [facility] [address] [place] [address], [place] GFR/1.73 sq M predicted among blacks MDRD (S/P/Bld) [Vol rate/Area] mL/min/{1.73_m2} Normal >60 [facility] Comment on above: Order Comment: No: D o not add to previous draw Result Comment: Calc ulation may not be valid for patients over 70 years Performed By: #### 5 0103 #### [facility] [address] [place] [address], [place] GFR/1.73 sq M predicted among non-blacks MDRD (S/P/Bld) [Vol rate/Area] mL/min/{1.73_m2} Normal >60 [facility] Comment on above: Order Comment: No: D o not add to previous draw Result Comment: Calc ulation may not be valid for patients over 70 years Performed By: #### 5 0103 #### [facility] [address] [place] [address], [place] Glucose [Mass/Vol] 243 mg/dL High 70-100 [facility] Comment on above: Order Comment: No: D o not add to previous draw Performed By: #### 5 0103 #### [facility] [address] [place] [address], [place] Potassium [Moles/Vol] 3.7 mmol/L Normal 3.5-5.1 [facility] Comment on above: Order Comment: No: D o not add to previous draw Performed By: #### 5 0103 #### [facility] [address] [place] [address], [place] Sodium [Moles/Vol] 131 mmol/L Low 136-145 [facility] Comment on above: Order Comment: No: D o not add to previous draw Performed By: #### 5 0103 #### [facility] [address] [place] [address], [place] Urea nitrogen [Mass/Vol] 18 mg/dL Normal 7-25 [facility] Comment on above: Order Comment: No: D o not add to previous draw Performed By: #### 5 0103 #### [facility] [address] [place] [address], [place] CBC COMPLETE BLOOD COUNTon Erythrocyte distribution width (RBC) [Ratio] 12.4 % Normal 11.5-15.0 [facility] Comment on above: Order Comment: No: D o not add to previous draw Performed By: #### 5 0103 #### [facility] [address] [place] [address], [place] Hematocrit (Bld) [Volume fraction] 25.4 % Low 39.0-50.0 [facility] Comment on above: Order Comment: No: D o not add to previous draw Performed By: #### 5 0103 #### [facility] [address] [place] [address], [facility] Hemoglobin (Bld) [Mass/Vol] 8.6 g/dL Low 13.0-17.0 [facility] Comment on above: Order Comment: No: D o not add to previous draw Performed By: #### 5 0103 #### [facility] [address] [place] [address], [facility] IMM PLATELET FRAC 5.2 % Normal 0.8-6.3 The [facility] Comment on above: Order Comment: No: D o not add to previous draw Performed By: #### 5 0103 #### [facility] [address] [place] [address], [facility] MCH (RBC) [Entitic mass] 31.4 pg Normal 27.0-33.0 [facility] Comment on above: Order Comment: No: D o not add to previous draw Performed By: #### 5 0103 #### [facility] [address] [place] [address], [facility] MCHC (RBC) [Mass/Vol] 33.9 g/dL Normal 32.0-35.0 [facility] Comment on above: Order Comment: No: D o not add to previous draw Performed By: #### 5 0103 #### [facility] [address] [place] [address], [facility] MCV (RBC) [Entitic vol] 92.7 fL Normal 82.0-98.0 [facility] Comment on above: Order Comment: No: D o not add to previous draw Performed By: #### 5 0103 #### [facility] [address] [place] [id number], [facility] Nucleated RBC/100 WBC (Bld) [Ratio] 0 % Normal 0-0 [facility] Comment on above: Order Comment: No: D o not add to previous draw Performed By: #### 5 0103 #### [facility] [address] [place] [address], [place] PLAT CNT 130 10*3/uL Low 150-400 [facility] Comment on above: Order Comment: No: D o not add to previous draw Performed By: #### 5 0103 #### [facility] [address] [place] [address], [place] RBC (Bld) [#/Vol] 2.74 10*6/uL Low 4.20-5.70 The [facility] Comment on above: Order Comment: No: D o not add to previous draw Performed By: #### 5 0103 #### [facility] [address] [place] [address], [place] WBC (Bld) [#/Vol] 6.87 10*3/uL Normal 4.00-10.60 [facility] Comment on above: Order Comment: No: D o not add to previous draw Performed By: #### 5 0103 #### [facility] [address] [place] [address], [place] POC GLUCOSE LABon 07-16-2018 Glucose [Mass/Vol] 281 mg/dL High 70-100 [facility] Comment on above: Performed By: #### 5 0103 #### [facility] [address] [place] [address], [place] Glucose [Mass/Vol] 250 mg/dL High 70-100 [facility] Comment on above: Performed By: #### 5 7581, 47783 #### [facility] [address] [place] [address], [place] Glucose [Mass/Vol] 240 mg/dL High 70-100 [facility] Comment on above: Performed By: #### 5 6031, 50315 #### [facility] [address] [place] [address], [place] BASIC METABOLIC PANELon 06-25 Calcium [Mass/Vol] 8.0 mg/dL Low 8.6-10.3 [facility] Comment on above: Order Comment: No: D o not add to previous draw Performed By: #### 5 6101, 67535 #### [facility] [address] [place] [address], [place] Chloride [Moles/Vol] 101 mmol/L Normal 98-107 [facility] Comment on above: Order Comment: No: D o not add to previous draw Performed By: #### 5 6101, 39913 #### [facility] [address] [place] [address], [place] CO2 [Moles/Vol] 25 mmol/L Normal 21-31 [facility] Comment on above: Order Comment: No: D o not add to previous draw Performed By: #### 5 6101, 47022 #### [facility] [address] [place] [address], [place] Creatinine [Mass/Vol] 1.23 mg/dL Normal 0.70-1.30 [facility] Comment on above: Order Comment: No: D o not add to previous draw Performed By: #### 5 6101, 07749 #### [facility] [address] [place] [address], [place] GFR/1.73 sq M predicted among blacks MDRD (S/P/Bld) [Vol rate/Area] mL/min/{1.73_m2} Normal >60 [facility] Comment on above: Order Comment: No: D o not add to previous draw Result Comment: Calc ulation may not be valid for patients over 70 years Performed By: #### 5 6101, 26631 #### [facility] [address] [place] [address], [place] GFR/1.73 sq M predicted among non-blacks MDRD (S/P/Bld) [Vol rate/Area] 58 ml/min/1.73sq m Abnormal >60 [facility] Comment on above: Order Comment: No: D o not add to previous draw Result Comment: Calc ulation may not be valid for patients over 70 years Performed By: #### 5 6101, 04276 #### [facility] [address] [place] [address], [facility] Glucose [Mass/Vol] 207 mg/dL High 70-100 [facility] Comment on above: Order Comment: No: D o not add to previous draw Performed By: #### 5 610, 68762 #### [facility] [address] [place] [id number], [facility] Potassium [Moles/Vol] 3.7 mmol/L Normal 3.5-5.1 [facility] Comment on above: Order Comment: No: D o not add to previous draw Performed By: #### 5 610, 37653 #### [facility] [address] [place] [address], [facility] Sodium [Moles/Vol] 130 mmol/L Low 136-145 [facility] Comment on above: Order Comment: No: D o not add to previous draw Performed By: #### 5 610, 49722 #### [facility] [address] [facility] [address], [facility] Urea nitrogen [Mass/Vol] 16 mg/dL Normal 7-25 [facility] Comment on above: Order Comment: No: D o not add to previous draw Performed By: #### 5 610, 60729 #### [facility] [address] [facility] [address], [facility] CBC W/DIFFon 07-15-2018 ABS BASOPHILS 0.0 10*3/uL Normal 0.0-0.2 The [facility] Comment on above: Order Comment: No: D o not add to previous draw Performed By: #### 5 610, 50569 #### [facility] [address] [place] [id number], [facility] ABS IMM GRANS 0.1 10*3/uL Normal 0.0-0.2 [facility] Comment on above: Order Comment: No: D o not add to previous draw Performed By: #### 5 610, 05937 #### [facility] [address] [place] [address], [place] ABS NEUTROPHILS 7.6 10*3/uL Normal 1.6-7.6 The [facility] Comment on above: Order Comment: No: D o not add to previous draw Performed By: #### 5 6100, 07452 #### [facility] [address] [place] [address], [place] Basophils/100 WBC (Bld) 0.3 % Normal 0.0-1.0 [facility] Comment on above: Order Comment: No: D o not add to previous draw Performed By: #### 5 6100, 38256 #### [facility] [address] [place] [address], [place] Eosinophils (Bld) [#/Vol] 0.1 10*3/uL Normal 0.0-0.5 [facility] Comment on above: Order Comment: No: D o not add to previous draw Performed By: #### 5 6100, 70466 #### [facility] [address] [place] [address], [place] Eosinophils/100 WBC (Bld) 1.6 % Normal 0.0-6.0 [facility] Comment on above: Order Comment: No: D o not add to previous draw Performed By: #### 5 6100, 64263 #### [facility] [address] [place] [address], [place] Erythrocyte distribution width (RBC) [Ratio] 12.5 % Normal 11.5-15.0 [facility] Comment on above: Order Comment: No: D o not add to previous draw Performed By: #### 5 6100, 90616 #### [facility] [address] [place] [address], [place] Hematocrit (Bld) [Volume fraction] 26.0 % Low 39.0-50.0 [facility] Comment on above: Order Comment: No: D o not add to previous draw Performed By: #### 5 6100, 45439 #### [facility] [address] [place] [address], [facility] Hemoglobin (Bld) [Mass/Vol] 8.8 g/dL Low 13.0-17.0 [facility] Comment on above: Order Comment: No: D o not add to previous draw Performed By: #### 5 6100, 87235 #### [facility] [address] [place] [address], [facility] IMM PLATELET FRAC 4.5 % Normal 0.8-6.3 The [facility] Comment on above: Order Comment: No: D o not add to previous draw Performed By: #### 5 6100, 06225 #### [facility] [address] [place] [address], [facility] IMMATURE GRANS 0.6 % Normal 0.0-1.0 The [facility] Comment on above: Order Comment: No: D o not add to previous draw Performed By: #### 5 6100, 30189 #### [facility] [address] [place] [address], [facility] Lymphocytes (Bld) [#/Vol] 0.2 10*3/uL Low 1.2-4.0 [facility] Comment on above: Order Comment: No: D o not add to previous draw Performed By: #### 5 6100, 86419 #### [facility] [address] [place] [address], [facility] Lymphocytes/100 WBC (Bld) 2.1 % Low 20.0-45.0 [facility] Comment on above: Order Comment: No: D o not add to previous draw Performed By: #### 5 6100, 31964 #### [facility] [address] MCH (RBC) [Entitic mass] 31.7 pg Normal 27.0-33.0 [facility] Comment on above: Order Comment: No: D o not add to previous draw Performed By: #### 5 610, 87665 #### [facility] [address] [place] [id number], [facility] MCHC (RBC) [Mass/Vol] 33.8 g/dL Normal 32.0-35.0 [facility] Comment on above: Order Comment: No: D o not add to previous draw Performed By: #### 5 6100, 29356 #### [facility] [address] [place] [address], [facility] MCV (RBC) [Entitic vol] 93.5 fL Normal 82.0-98.0 [facility] Comment on above: Order Comment: No: D o not add to previous draw Performed By: #### 5 6100, 15404 #### [facility] [address] [place] [address], [facility] Monocytes (Bld) [#/Vol] 0.6 10*3/uL Normal 0.1-1.0 [facility] Comment on above: Order Comment: No: D o not add to previous draw Performed By: #### 5 6100, 48823 #### [facility] [address] [place] [address], [facility] MONOS 7.1 % Normal 5.0-12.0 [facility] Comment on above: Order Comment: No: D o not add to previous draw Performed By: #### 5 6100, 52876 #### [facility] [address] [place] [address], [facility] Neutrophils/100 WBC (Bld) 88.3 % High 40.0-72.0 [facility] Comment on above: Order Comment: No: D o not add to previous draw Performed By: #### 5 6100, 48767 #### [facility] [address] [place] [address], [facility] Nucleated RBC/100 WBC (Bld) [Ratio] 0 % Normal 0-0 [facility] Comment on above: Order Comment: No: D o not add to previous draw Performed By: #### 5 610, 02930 #### [facility] [address] [place] [address], [place] PLAT CNT 113 10*3/uL Low 150-400 [facility] Comment on above: Order Comment: No: D o not add to previous draw Performed By: #### 5 610, 59484 #### [facility] [address] [place] [address], [facility] RBC (Bld) [#/Vol] 2.78 10*6/uL Low 4.20-5.70 The [facility] Comment on above: Order Comment: No: D o not add to previous draw Performed By: #### 5 610, 69731 #### [facility] [address] [place] [address], [place] WBC (Bld) [#/Vol] 8.62 10*3/uL Normal 4.00-10.60 [facility] Comment on above: Order Comment: No: D o not add to previous draw Performed By: #### 5 610, 92982 #### [facility] [address] [place] [address], [facility] POC GLUCOSE LABon 07-15-2018 Glucose [Mass/Vol] 281 mg/dL High 70-100 [facility] Comment on above: Performed By: #### 5 610, 06745 #### [facility] [address] [place] [address], [facility] Glucose [Mass/Vol] 305 mg/dL High 70-100 [facility] Comment on above: Performed By: #### 5 610, 49751 #### [facility] [address] [facility] [address], [place] Glucose [Mass/Vol] 198 mg/dL High 70-100 [facility] Comment on above: Performed By: #### 5 610, 72994 #### [facility] [address] [place] [address], [place] Glucose [Mass/Vol] 227 mg/dL High 70-100 [facility] Comment on above: Performed By: #### 5 610, 14839 #### [facility] [address] [place] [address], [place] BASIC METABOLIC PANELon 10-2 Calcium [Mass/Vol] 8.3 mg/dL Low 8.6-10.3 [facility] Comment on above: Order Comment: Unkno wn Performed By: #### 5 610, 00122 #### [facility] [address] [place] [address], [place] Chloride [Moles/Vol] 105 mmol/L Normal 98-107 [facility] Comment on above: Order Comment: Unkno wn Performed By: #### 5 610, 72008 #### [facility] [address] [place] [address], [place] CO2 [Moles/Vol] 24 mmol/L Normal 21-31 The [facility] Comment on above: Order Comment: Unkno wn Performed By: #### 5 6101, 37555 #### [facility] [address] [place] [address], [place] Creatinine [Mass/Vol] 1.20 mg/dL Normal 0.70-1.30 [facility] Comment on above: Order Comment: Unkno wn Performed By: #### 5 6101, 69631 #### [facility] [address] [place] [address], [place] GFR/1.73 sq M predicted among blacks MDRD (S/P/Bld) [Vol rate/Area] mL/min/{1.73_m2} Normal >60 [facility] Comment on above: Order Comment: Unkno wn Result Comment: Calc ulation may not be valid for patients over 70 years Performed By: #### 5 610, 49839 #### [facility] [address] [place] [address], [place] GFR/1.73 sq M predicted among non-blacks MDRD (S/P/Bld) [Vol rate/Area] 60 ml/min/1.73sq m Abnormal >60 [facility] Comment on above: Order Comment: Unkno wn Result Comment: Calc ulation may not be valid for patients over 70 years Performed By: #### 5 610, 91360 #### [facility] [address] [place] [address], [place] Glucose [Mass/Vol] 181 mg/dL High 70-100 [facility] Comment on above: Order Comment: Unkno wn Performed By: #### 5 610, 70695 #### [facility] [address] [place] [address], [place] Potassium [Moles/Vol] 3.7 mmol/L Normal 3.5-5.1 [facility] Comment on above: Order Comment: Unkno wn Performed By: #### 5 610, 96269 #### [facility] [address] [place] [address], [place] Sodium [Moles/Vol] 133 mmol/L Low 136-145 [facility] Comment on above: Order Comment: Unkno wn Performed By: #### 5 610, 60575 #### [facility] [address] [place] [address], [place] Urea nitrogen [Mass/Vol] 18 mg/dL Normal 7-25 [facility] Comment on above: Order Comment: Unkno wn Performed By: #### 5 610, 14140 #### [facility] [facility] [address] [place] [address], [place] CBC COMPLETE BLOOD COUNTon - Erythrocyte distribution width (RBC) [Ratio] 12.7 % Normal 11.5-15.0 [facility] Comment on above: Order Comment: Unkno wn Performed By: #### 5 610, 84747 #### [facility] [address] [place] [id number], [facility] Hematocrit (Bld) [Volume fraction] 28.6 % Low 39.0-50.0 [facility] Comment on above: Order Comment: Unkno wn Performed By: #### 5 6100, 14075 #### [facility] [address] [place] [address], [facility] Hemoglobin (Bld) [Mass/Vol] 9.8 g/dL Low 13.0-17.0 [facility] Comment on above: Order Comment: Unkno wn Performed By: #### 5 6100, 99835 #### [facility] [address] [place] [address], [facility] IMM PLATELET FRAC 4.1 % Normal 0.8-6.3 The [facility] Comment on above: Order Comment: Unkno wn Performed By: #### 5 6100, 43040 #### [facility] [address] [place] [id number], [facility] MCH (RBC) [Entitic mass] 31.5 pg Normal 27.0-33.0 [facility] Comment on above: Order Comment: Unkno wn Performed By: #### 5 6100, 59710 #### [facility] [address] [place] [address], [place] MCHC (RBC) [Mass/Vol] 34.3 g/dL Normal 32.0-35.0 [facility] Comment on above: Order Comment: Unkno wn Performed By: #### 5 610, 76375 #### [facility] [address] [place] [id number], [facility] MCV (RBC) [Entitic vol] 92.0 fL Normal 82.0-98.0 [facility] Comment on above: Order Comment: Unkno wn Performed By: #### 5 6101, 92864 #### [facility] [address] [place] [address], [facility] Nucleated RBC/100 WBC (Bld) [Ratio] 0 % Normal 0-0 [facility] Comment on above: Order Comment: Unkno wn Performed By: #### 5 6101, 72230 #### [facility] [address] [place] [address], [facility] PLAT CNT 119 10*3/uL Low 150-400 [facility] Comment on above: Order Comment: Unkno wn Performed By: #### 5 6101, 08203 #### [facility] [address] [facility] [place] [address], [facility] RBC (Bld) [#/Vol] 3.11 10*6/uL Low 4.20-5.70 [facility] Comment on above: Order Comment: Unkno wn Performed By: #### 5 6101, 67228 #### [facility] [address] [facility] [place] [address], [facility] WBC (Bld) [#/Vol] 6.45 10*3/uL Normal 4.00-10.60 [facility] Comment on above: Order Comment: Unkno wn Performed By: #### 5 6101, 34735 #### [facility] [address] [place] [address], [facility] MAGNESIUM BLOODon 07-14-2018 Magnesium [Mass/Vol] 1.3 mg/dL Low 1.9-2.7 [facility] Comment on above: Order Comment: Unkno wn Performed By: #### 5 6101, 10793 #### [facility] [address] [place] [address], [facility] PHOSPHORUS BLOODon 8 Phosphate [Mass/Vol] 3.4 mg/dL Normal 2.5-5.0 [facility] Comment on above: Order Comment: Unkno wn Performed By: #### 5 610, 88478 #### [facility] [address] [place] [address], [place] POC GLUCOSE LABon 07-14-2018 Glucose [Mass/Vol] 253 mg/dL High 70-100 [facility] Comment on above: Performed By: #### 5 610, 17329 #### [facility] [address] [place] [address], [place] Glucose [Mass/Vol] 272 mg/dL High 70-100 [facility] Comment on above: Performed By: #### 5 610, 26357 #### [facility] [address] [place] [address], [place] Glucose [Mass/Vol] 167 mg/dL High 70-100 [facility] Comment on above: Performed By: #### 5 610, 28814 #### [facility] [address] [place] [address], [place] Glucose [Mass/Vol] 220 mg/dL High 70-100 [facility] Comment on above: Performed By: #### 5 610, 09510 #### [facility] [address] [place] [address], [place] VITAMIN D 25-HYDROXYon 07-14 VITAMIN D 25-OH 26.4 ng/mL Low 30.0-80.0 The [facility] Comment on above: Result Comment: >80. 0 Toxicity possible Performed By: #### 5 610, 58326 #### [facility] [address] [place] [address], [place] APTTon 07-13-2018 aPTT Coag (Bld) [Time] 23.9 s Low 25.0-35.0 [facility] Comment on above: Result Comment: ALL RESULTS [...] THIS PURPOSE. Performed By: #### 5 6101, 51441 #### [facility] [address] [place] [address], [facility] BASIC METABOLIC PANELon 10-2 Calcium [Mass/Vol] 8.7 mg/dL Normal 8.6-10.3 [facility] Comment on above: Performed By: #### 0 0071 #### [facility] [address] [facility] [address], [facility] Chloride [Moles/Vol] 103 mmol/L Normal 98-107 [facility] Comment on above: Performed By: #### 0 0071 #### [facility] [address] [facility] [place] [address], [facility] CO2 [Moles/Vol] 24 mmol/L Normal 21-31 [facility] Comment on above: Performed By: #### 0 0071 #### [facility] [address] [facility] [address], [facility] Creatinine [Mass/Vol] 1.18 mg/dL Normal 0.70-1.30 [facility] Comment on above: Performed By: #### 0 0071 #### [facility] [address] [place] [address], [facility] GFR/1.73 sq M predicted among blacks MDRD (S/P/Bld) [Vol rate/Area] mL/min/{1.73_m2} Normal >60 [facility] Comment on above: Result Comment: Calc ulation may not be valid for patients over 70 years Performed By: #### 0 0071 #### [facility] [address] [place] [address], [facility] GFR/1.73 sq M predicted among non-blacks MDRD (S/P/Bld) [Vol rate/Area] mL/min/{1.73_m2} Normal >60 [facility] Comment on above: Result Comment: Calc ulation may not be valid for patients over 70 years Performed By: #### 0 0071 #### [facility] [address] [facility] [address], [facility] Glucose [Mass/Vol] 165 mg/dL High 70-100 [facility] Comment on above: Performed By: #### 0 0071 #### [facility] [address] [place] [address], [facility] Potassium [Moles/Vol] 4.1 mmol/L Normal 3.5-5.1 [facility] Comment on above: Performed By: #### 0 0071 #### [facility] [address] [place] [address], [facility] Sodium [Moles/Vol] 132 mmol/L Low 136-145 [facility] Comment on above: Performed By: #### 0 0071 #### [facility] [address] [place] [address], [facility] Urea nitrogen [Mass/Vol] 21 mg/dL Normal 7-25 [facility] Comment on above: Performed By: #### 0 0071 #### [facility] [address] [facility] [address], [facility] CBC W/DIFFon 07-13-2018 ABS BASOPHILS 0.0 10*3/uL Normal 0.0-0.2 [facility] Comment on above: Performed By: #### 5 3 #### [facility] [address] [place] [address], [facility] ABS IMM GRANS 0.0 10*3/uL Normal 0.0-0.2 [facility] Comment on above: Performed By: #### 5 0103 #### [facility] [address] [place] [address], [facility] ABS NEUTROPHILS 9.8 10*3/uL High 1.6-7.6 [facility] Comment on above: Performed By: #### 5 0103 #### [facility] [address] [place] [address], [facility] Basophils/100 WBC (Bld) 0.4 % Normal 0.0-1.0 [facility] Comment on above: Performed By: #### 5 0103 #### [facility] [address] [facility] [address], [facility] Eosinophils (Bld) [#/Vol] 0.1 10*3/uL Normal 0.0-0.5 [facility] Comment on above: Performed By: #### 5 0103 #### [facility] [address] [facility] [address], [facility] Eosinophils/100 WBC (Bld) 0.5 % Normal 0.0-6.0 [facility] Comment on above: Performed By: #### 5 3 #### [facility] [address] [place] [address], [facility] Erythrocyte distribution width (RBC) [Ratio] 12.2 % Normal 11.5-15.0 [facility] Comment on above: Performed By: #### 5 3 #### [facility] [address] [facility] [place] [address], [facility] Hematocrit (Bld) [Volume fraction] 34.8 % Low 39.0-50.0 [facility] Comment on above: Performed By: #### 5 0103 #### [facility] [address] [facility] [address], [facility] Hemoglobin (Bld) [Mass/Vol] 12.1 g/dL Low 13.0-17.0 [facility] Comment on above: Performed By: #### 5 3 #### [facility] [address] IMMATURE GRANS 0.4 % Normal 0.0-1.0 [facility] Comment on above: Performed By: #### 5 0103 #### [facility] [address] [place] [address], [facility] Lymphocytes (Bld) [#/Vol] 0.6 10*3/uL Low 1.2-4.0 [facility] Comment on above: Performed By: #### 5 0103 #### [facility] [address] [place] [address], [facility] Lymphocytes/100 WBC (Bld) 5.4 % Low 20.0-45.0 [facility] Comment on above: Performed By: #### 5 0103 #### [facility] [address] [place] [address], [facility] MCH (RBC) [Entitic mass] 31.1 pg Normal 27.0-33.0 [facility] Comment on above: Performed By: #### 5 0103 #### [facility] [address] MCHC (RBC) [Mass/Vol] 34.8 g/dL Normal 32.0-35.0 [facility] Comment on above: Performed By: #### 5 0103 #### [facility] [address] [place] [address], [facility] MCV (RBC) [Entitic vol] 89.5 fL Normal 82.0-98.0 [facility] Comment on above: Performed By: #### 5 0103 #### [facility] [address] [place] [address], [facility] Monocytes (Bld) [#/Vol] 0.5 10*3/uL Normal 0.1-1.0 [facility] Comment on above: Performed By: #### 5 0103 #### [facility] [address] [place] [address], [facility] MONOS 4.3 % Low 5.0-12.0 [facility] Comment on above: Performed By: #### 5 0103 #### [facility] [address] [place] [address], [facility] Neutrophils/100 WBC (Bld) 89.0 % High 40.0-72.0 [facility] Comment on above: Performed By: #### 5 0103 #### [facility] [address] [place] [address], [facility] Nucleated RBC/100 WBC (Bld) [Ratio] 0 % Normal 0-0 [facility] Comment on above: Performed By: #### 5 0103 #### [facility] [address] [facility] [place] [address], [facility] PLAT CNT 177 10*3/uL Normal 150-400 [facility] Comment on above: Performed By: #### 5 0103 #### [facility] [address] [place] [address], [facility] RBC (Bld) [#/Vol] 3.89 10*6/uL Low 4.20-5.[address] [facility] Comment on above: Performed By: #### 5 0103 #### [facility] [address] [facility] [address], [facility] WBC (Bld) [#/Vol] 11.04 10*3/uL High 4.00-10.60 [facility] Comment on above: Performed By: #### 5 0103 #### [facility] [address] [place] [address], [facility] FEMUR RIGHT 2 VWSon 07-13-20 18 FEMUR RIGHT 2 VWS [facility] Department of Radiology [address] [place] [id number] ======== Patient Name: ZACH MANUEL : 1945 Sex: M Age: Race: White Pt. Location: [id number] Patient Status: I Ordered Date: 07/13/2018 7:00:00 [...] Documentation Electronically signed by:Soila Morris. Transcribed by: [email or web address], User Resident: Electronically Signed by: SOILA MORRIS @ 07/15/2018 12:16 PM Normal [facility] Comment on above: Order Comment: RT FE MUR IM NAIL FEMUR RIGHT 2 S [facility] Department of Radiology [address] [place] [id number] ======== Patient Name: ZACH MANUEL : [...] findings. Electronically signed by:Zoran Cobb. Transcribed by: [email or web address], User Resident: RENAN SEWELL Electronically Signed by: ZORAN COBB @ 07/13/2018 06:51 PM I personally read this/these film(s) with this resident Normal [facility] Comment on above: Order Comment: R/O F X, right knee History and Physicalon 07-13 History and Physical MR#: [id number] [facility] Pt. Name: Zach Manuel Admitted: 07/13/2018 Date of : 1945 Attending Physician: Natalie Barajas M.D. Room #: [id number] Discharge Date: HISTORY AND PHYSICAL CHIEF COMPLAINT: Fall, right hip fracture. HISTORY OF PRESENT ILLNESS: The patient is a 73-year-old gentleman with past medical history of diabetes, multiple myeloma that was treated and now under surveillance, Paget's disease and ulcerative colitis, presented to the ER as a transfer from [facility]. Orthopedist service accepted the patient for treatment of right hip fracture. The patient reports that today approximately 6 hours prior to arrival to [facility], he was accidentally hit by his [...] We will provide DVT and GI prophylaxis. Academic Tutor for possible rehab placement and PT and OT once the patient will have surgery. Electronically Signed by: Natalie Barajas M.D. 07/14/2018 12:41 A Natalie Barajas M.D. Date Dict: 07/13/2018/01:20 A/Natalie Barajas M.D. Date Trans: 07/13/2018 06:08 A/maryo [id number] Normal [facility] Operative Reporton 8 Operative Report MR#: [id number] I [facility] Pt. Name: Zach Manuel Room #: [id number] Discharge Date: Birthdate: 1945 OPERATIVE REPORT DATE OF SURGERY: 07/13/2018 SURGEON: Daniela Antony M.D. ADMINISTRATIVE RECEPTIONIST: Rob Gomez M.D. PREOPERATIVE DIAGNOSIS: Right subtrochanteric [...] The distal interlocking screws, we used perfect [place] technique. The guide pin was placed under [...] Gomez MD Date Trans: 07/13/2018 09:17 P/tata [id number] cc: Hanna Mathias M.D. [address] [phone] Normal [facility] POC GLUCOSE LABon 07-13-2018 Glucose [Mass/Vol] 249 mg/dL High 70-100 [facility] Comment on above: Performed By: #### 8 5499 #### [facility] [address] [facility] [address], [place] Glucose [Mass/Vol] 226 mg/dL High 70-100 [facility] Comment on above: Performed By: #### 8 5499 #### [facility] [address] [facility] [facility] [place] [address], [place] Glucose [Mass/Vol] 144 mg/dL High 70-100 [facility] Comment on above: Performed By: #### 8 5499 #### [facility] [address] [facility] [address], [place] Glucose [Mass/Vol] 130 mg/dL High 70-100 [facility] Comment on above: Performed By: #### 8 5499 #### [facility] [address] [facility] PROTHROMBIN TIMEon 8 INR Coag (PPP) [Relative time] 1.01 {INR} Normal 0.91-1.16 [facility] Comment on above: Result Comment: ACCC P [...] CHEST 1995;[id number]. Performed By: #### 5 6101, 33660 #### [facility] [address] [facility] [address], [facility] PT Coag (PPP) [Time] 13.3 s Normal 12.3-14.8 [facility] Comment on above: Result Comment: ALL RESULTS MUST BE INTERPRETED WITH RESPECT TO BLOOD DRAWING ARTIFACT OR DILUTION ERROR OF ANTICOAGULANT AT THE TIME OF SAMPLING. Performed By: #### 5 6101, 86876 #### [facility] [address] [facility] [address], [facility] TYPE AND SCREENon 07-13-2018 ABO INTERPRETATION O Normal [facility] Comment on above: Performed By: #### 6 2586 #### [facility] [address] [place] [address], [place] RH INTERPRETATION Positive Normal The [facility] Comment on above: Performed By: #### 6 2586 #### [facility] [address] [place] [address], [place] RBC'S 2 UNITSon 07-12-2018 CROSSMATCH INTERP 1 COMP Normal [facility] Comment on above: Performed By: #### 8 6002 #### [facility] [address] [place] [address], [place] CROSSMATCH INTERP 2 COMP Normal [facility] Comment on above: Performed By: #### 8 6002 #### [facility] [address] [place] [address], [place] PRODUCT CODE 1 E0336 Normal [facility] Comment on above: Performed By: #### 8 6002 #### [facility] [address] [place] [address], [place] PRODUCT CODE 2 E0336 Normal [facility] Comment on above: Performed By: #### 8 6002 #### [facility] [address] [place] [address], [place] PRODUCT STATUS 1 RE Normal The [facility] Comment on above: Result Comment: Resu lt changed by IF on 07/16/2018 09:30. The previous value was XM. Performed By: #### 8 6002 #### [facility] [address] [place] [address], [place] PRODUCT STATUS 2 RE Normal [facility] Comment on above: Result Comment: Resu lt changed by IF on 07/16/2018 09:30. The previous value was XM. Performed By: #### 8 6002 #### [facility] [address] [place] [address], [place] UNIT ABO 1 O Normal [facility] Comment on above: Performed By: #### 8 6002 #### [facility] [address] [place] [address], [facility] UNIT ABO 2 O Normal [facility] Comment on above: Performed By: #### 8 6002 #### [facility] [address] [place] [address], [facility] UNIT ID 1 [id number] Normal The [facility] Comment on above: Performed By: #### 8 6002 #### [facility] [address] [place] [address], [facility] UNIT ID 2 [id number] Normal [facility] Comment on above: Performed By: #### 8 6002 #### [facility] [address] [place] [address], [facility] UNIT RH 1 Positive Normal [facility] Comment on above: Performed By: #### 8 6002 #### [facility] [address] [place] [address], [facility] UNIT RH 2 Positive Normal [facility] Comment on above: Performed By: #### 8 6002 #### [facility] [address] [place] [address], [facility] Vital Signs Date Time Vital Sign Value Performing Clinician Facility 02-17-2025 11:04040 Body height 175.3 cm Uriel Gunter MD Work Phone: [facility] 02-17-2025 11:04-040 Body mass index (BMI) [Ratio] 27.01 kg/m2 Uriel Gunter MD Work Phone: [facility] 02-17-2025 11:04-040 Body temperature 97.2 [degF] Uriel Gunter MD Work Phone: [facility] 02-17-2025 11:04-040 Body weight 83 kg Uriel Gunter MD Work Phone: [facility] 02-17-2025 11:04-0400 Diastolic blood pressure 73 mm[Hg] Uriel Gunter MD Work Phone: [facility] 02-17-2025 11:04-0400 Heart rate 70 /min Uriel Gunter MD Work Phone: [facility] 02-17-2025 11:04-0400 Respiratory rate 16 /min Uriel Gunter MD Work Phone: [facility] 02-17-2025 11:04-0400 SaO2% (BldA) [Mass fraction] 96 % Uriel Gunter MD Work Phone: [facility] 02-17-2025 11:04-0400 Systolic blood pressure 129 mm[Hg] Uriel Gunter MD Work Phone: [facility] 10-09-2024 09:59-0500 Body height 175.3 cm [facility] 2 [facility] 10-09-2024 09:59-0500 Body mass index (BMI) [Ratio] 26.58 kg/m2 Pm 2 [facility] 10-09-2024 09:59-0500 Body weight 81.65 kg [facility] 2 [facility] 05-27-2024 12:53-0400 Body height 175.3 cm Latrice Alexandrea PA-C Work Phone: [facility] 05-27-2024 12:53-0400 Body mass index (BMI) [Ratio] 27.73 kg/m2 Latrice Alexandrea PA-C Work Phone: [facility] 05-27-2024 12:53-0400 Body temperature 97.9 [degF] Latrice Alexandrea PA-C Work Phone: [facility] 05-27-2024 12:53-0400 Body weight 85.2 kg Latrice Alexandrea PA-C Work Phone: [facility] 05-27-2024 12:53-0400 Diastolic blood pressure 65 mm[Hg] Latrice Alexandrea PA-C Work Phone: [facility] 05-27-2024 12:53-0400 Heart rate 63 /min Latrice Alexandrea PA-C Work Phone: [facility] 05-27-2024 12:53-0400 Respiratory rate 16 /min Latrice Alexandrea PA-C Work Phone: [facility] 05-27-2024 12:53-0400 SaO2% (BldA) [Mass fraction] 98 % Latrice Alexandrea PA-C Work Phone: [facility] 05-27-2024 12:53-0400 Systolic blood pressure 117 mm[Hg] Latrice Alexandrea PA-C Work Phone: [facility] 02-26-2024 12:53-0400 Body height 175.3 cm Uriel Gunter MD Work Phone: [facility] 02-26-2024 12:53-0400 Body mass index (BMI) [Ratio] 27.43 kg/m2 Uriel Gunter MD Work Phone: [facility] 02-26-2024 12:53-0400 Body temperature 97.59 [degF] Uriel Gunter MD Work Phone: [facility] 02-26-2024 12:53-0400 Body weight 84.3 kg Uriel Gunter MD Work Phone: [facility] 02-26-2024 12:53-0400 Diastolic blood pressure 68 mm[Hg] Uriel Gunter MD Work Phone: [facility] 02-26-2024 12:53-0400 Heart rate 59 /min Uriel Gunter MD Work Phone: [facility] 02-26-2024 12:53-0400 Respiratory rate 18 /min Uriel Gunter MD Work Phone: [facility] 02-26-2024 12:53-0400 SaO2% (BldA) [Mass fraction] 97 % Uriel Gunter MD Work Phone: [facility] 02-26-2024 12:53-0400 Systolic blood pressure 126 mm[Hg] Uriel Gunter MD Work Phone: [facility] 11-27-2023 13:02-0500 Body height 175.[address] PRIMER INSPECTOR.HOUSEKEEPING LAUNDRY WORKER Work Phone: [facility] 11-27-2023 13:02-0500 Body temperature 97.9 [degF] Becca Lane PRIMER INSPECTOR.HOUSEKEEPING LAUNDRY WORKER Work Phone: [facility] 11-27-2023 13:02-0500 Body weight 87.[address] PRIMER INSPECTOR.HOUSEKEEPING LAUNDRY WORKER Work Phone: [facility] 11-27-2023 13:02-0500 Diastolic blood pressure 51 mm[Hg] Becca Lane PRIMER INSPECTOR.HOUSEKEEPING LAUNDRY WORKER Work Phone: [facility] 11-27-2023 13:02-0500 Heart rate 65 /min Becca [address] PRIMER INSPECTOR.HOUSEKEEPING LAUNDRY WORKER Work Phone: [facility] 11-27-2023 13:02-0500 Respiratory rate 18 /min Becca [address] PRIMER INSPECTOR.HOUSEKEEPING LAUNDRY WORKER Work Phone: [facility] 11-27-2023 13:02-0500 SaO2% (BldA) [Mass fraction] 97 % [address] PRIMER INSPECTOR.HOUSEKEEPING LAUNDRY WORKER Work Phone: [facility] 11-27-2023 13:02-0500 Systolic blood pressure 154 mm[Hg] Becca Lane PRIMER INSPECTOR.HOUSEKEEPING LAUNDRY WORKER Work Phone: [facility] 08-28-2023 13:08-0500 Body height 175.3 cm Uriel Gunter MD Work Phone: [facility] 08-28-2023 13:08-0500 Body temperature 97.2 [degF] Uriel Gunter MD Work Phone: [facility] 08-28-2023 13:08-0500 Body weight 86.27 kg Uriel Gunter MD Work Phone: [facility] 08-28-2023 13:08-0500 Diastolic blood pressure 68 mm[Hg] Uriel Gunter MD Work Phone: [facility] 08-28-2023 13:08-0500 Heart rate 62 /min Uriel Gunter MD Work Phone: [facility] 08-28-2023 13:08-0500 Respiratory rate 20 /min Uriel Gunter MD Work Phone: [facility] 08-28-2023 13:08-0500 SaO2% (BldA) [Mass fraction] 98 % Uriel Gunter MD Work Phone: [facility] 08-28-2023 13:08-0500 Systolic blood pressure 119 mm[Hg] Uriel Gunter MD Work Phone: [facility] 05-29-2023 12:40-0400 Body height 175.3 cm Uriel Gunter MD Work Phone: [facility] 05-29-2023 12:40-0400 Body temperature 97.2 [degF] Uriel Gunter MD Work Phone: [facility] 05-29-2023 12:40-0400 Body weight 87.45 kg Uriel Gunter MD Work Phone: [facility] 05-29-2023 12:40-0400 Diastolic blood pressure 49 mm[Hg] Uriel Gunter MD Work Phone: [facility] 05-29-2023 12:40-0400 Heart rate 56 /min Uriel Gunter MD Work Phone: [facility] 05-29-2023 12:40-0400 Respiratory rate 16 /min Uriel Gunter MD Work Phone: [facility] 05-29-2023 12:40-0400 SaO2% (BldA) [Mass fraction] 98 % Uriel Gunter MD Work Phone: [facility] 05-29-2023 12:40-0400 Systolic blood pressure 136 mm[Hg] Uriel Gunter MD Work Phone: [facility] 12-05-2022 13:00-0400 Body height 175.3 cm Uriel Gunter MD Work Phone: [facility] 12-05-2022 13:00-0400 Body temperature 97.11 [degF] Uriel Gunter MD Work Phone: [facility] 12-05-2022 13:00-0400 Body weight 85.55 kg Uriel Gunter MD Work Phone: [facility] 12-05-2022 13:00-0400 Diastolic blood pressure 58 mm[Hg] Uriel Gunter MD Work Phone: [facility] 12-05-2022 13:00-0400 Heart rate 60 /min Uriel Gunter MD Work Phone: [facility] 12-05-2022 13:00-0400 Respiratory rate 18 /min Uriel Gunter MD Work Phone: [facility] 12-05-2022 13:00-0400 SaO2% (BldA) [Mass fraction] 97 % Uriel Gunter MD Work Phone: [facility] 12-05-2022 13:00-0400 Systolic blood pressure 135 mm[Hg] Uriel Gunter MD Work Phone: [facility] 09-12-2022 15:00-0500 Body height 175.3 cm Uriel Gunter MD Work Phone: [facility] 09-12-2022 15:00-0500 Body temperature 97.59 [degF] Uriel Gunter MD Work Phone: [facility] 09-12-2022 15:00-0500 Body weight 87.82 kg Uriel Gunter MD Work Phone: [facility] 09-12-2022 15:00-0500 Diastolic blood pressure 53 mm[Hg] Uriel Gunter MD Work Phone: [facility] 09-12-2022 15:00-0500 Heart rate 67 /min Uriel Guntre MD Work Phone: [facility] 09-12-2022 15:00-0500 Respiratory rate 18 /min Uriel Gunter MD Work Phone: [facility] 09-12-2022 15:00-0500 SaO2% (BldA) [Mass fraction] 97 % Uriel Gunter MD Work Phone: [facility] 09-12-2022 15:00-0500 Systolic blood pressure 123 mm[Hg] Uriel Gunter MD Work Phone: [facility] 06-20-2022 12:37-0400 Body height 175.[address] PRIMER INSPECTOR.HOUSEKEEPING LAUNDRY WORKER Work Phone: [facility] 06-20-2022 12:37-0400 Body temperature 97.11 [degF] Becca [address] PRIMER INSPECTOR.HOUSEKEEPING LAUNDRY WORKER Work Phone: [facility] 06-20-2022 12:37-0400 Body weight 89.[address] PRIMER INSPECTOR.HOUSEKEEPING LAUNDRY WORKER Work Phone: [facility] 06-20-2022 12:37-0400 Diastolic blood pressure 52 mm[Hg] Becca [address] PRIMER INSPECTOR.HOUSEKEEPING LAUNDRY WORKER Work Phone: [facility] 06-20-2022 12:37-0400 Heart rate 79 /min Becca [address] PRIMER INSPECTOR.HOUSEKEEPING LAUNDRY WORKER Work Phone: [facility] 06-20-2022 12:37-0400 Respiratory rate 16 /min Becca [address] PRIMER INSPECTOR.HOUSEKEEPING LAUNDRY WORKER Work Phone: [facility] 06-20-2022 12:37-0400 SaO2% (BldA) [Mass fraction] 97 % [address]cca [address] PRIMER INSPECTOR.HOUSEKEEPING LAUNDRY WORKER Work Phone: [facility] 06-20-2022 12:37-0400 Systolic blood pressure 152 mm[Hg] Becca Lane PRIMER INSPECTOR.HOUSEKEEPING LAUNDRY WORKER Work Phone: [facility] 03-21-2022 12:49-0400 Body height 175.3 cm Uriel Gunter MD Work Phone: [facility] 03-21-2022 12:49-0400 Body temperature 97 [degF] Uriel Gunter MD Work Phone: [facility] 03-21-2022 12:49-0400 Body weight 88.81 kg Uriel Gunter MD Work Phone: [facility] 03-21-2022 12:49-0400 Diastolic blood pressure 54 mm[Hg] Uriel Gunter MD Work Phone: [facility] 03-21-2022 12:49-0400 Heart rate 65 /min Uriel Gunter MD Work Phone: [facility] 03-21-2022 12:49-0400 Respiratory rate 16 /min Uriel Gunter MD Work Phone: [facility] 03-21-2022 12:49-0400 SaO2% (BldA) [Mass fraction] 100 % Uriel Gunter MD Work Phone: [facility] 03-21-2022 12:49-0400 Systolic blood pressure 138 mm[Hg] Uriel Gunter MD Work Phone: [facility] 01-24-2022 12:42-0400 Body height 175.3 cm Uriel Gunter MD Work Phone: [facility] 01-24-2022 12:42-0400 Body temperature 98.01 [degF] Uriel Gunter MD Work Phone: [facility] 01-24-2022 12:42-0400 Body weight 88.91 kg Uriel Gunter MD Work Phone: [facility] 01-24-2022 12:42-0400 Diastolic blood pressure 50 mm[Hg] Uriel Gunter MD Work Phone: [facility] 01-24-2022 12:42-0400 Heart rate 64 /min Uriel Gunter MD Work Phone: [facility] 01-24-2022 12:42-0400 Respiratory rate 18 /min Uriel Gunter MD Work Phone: [facility] 01-24-2022 12:42-0400 SaO2% (BldA) [Mass fraction] 98 % Uriel Gunter MD Work Phone: [facility] 01-24-2022 12:42-0400 Systolic blood pressure 136 mm[Hg] Uriel Gunter MD Work Phone: [facility] Encounters Encounter Date Encounter Type Care Provider Facility Start: 02-27-2025 End: 02-27-2025 Refill Uriel Gunter MD Work Phone: [facility] Comment on above: Refill Request Start: 02-19-2025 End: 02-19-2025 Follow-up encounter Uriel Gunter MD Work Phone: Hematology/Oncology Comment on above: Results Start: 02-17-2025 End: 02-17-2025 Patient encounter procedure Uriel Gunter MD Work Phone: Hematology/Oncology Start: 02-17-2025 End: 02-17-2025 ambulatory Chair [address] Work Phone: Hematology/Oncology Comment on above: Multiple myeloma not having achieved remission (HCC) (Primary Dx); Paget disease of bone Multiple myeloma not having achieved remission (HCC) (Primary Dx); Paget disease of bone; H/O ulcerative colitis; Stage 3b chronic kidney disease (HCC) Start: 12-11-2024 End: 12-11-2024 Refill Porsche Adame [facility] Work Phone: [facility] Comment on above: Refill Request Start: 11-20-2024 End: 11-20-2024 Evaluation and management of inpatient MARY ZARATE [facility] Start: 11-20-2024 End: 11-20-2024 Evaluation and management of inpatient BERNARDO STAPLETON [facility] Start: 11-19-2024 End: 11-19-2024 ambulatory [facility] Pat Phone Call Provider 1 [facility] - Pre Admit Start: 11-19-2024 End: 11-19-2024 ambulatory BERNARDO Rachel STAPLETON [facility] Start: 11-17-2024 End: 11-17-2024 Refill Uriel Gunter MD Work Phone: [facility] Comment on above: Refill Request Start: 10-30-2024 End: 10-30-2024 Evaluation and management of inpatient EDGAR JUSTICE [facility] Start: 10-30-2024 End: 10-30-2024 Evaluation and management of inpatient BERNARDO STAPLETON [facility] Start: 10-10-2024 End: 10-10-2024 Refill Ainsley Kemar [facility] Work Phone: [facility] Comment on above: Refill Request Start: 10-09-2024 End: 10-09-2024 ambulatory MARY ZARATE [facility] Start: 10-09-2024 Encounter for other preprocedural examination HANNA MATHIAS [facility] Start: 10-09-2024 End: 10-09-2024 Patient encounter procedure [facility] Pre-Admission Testing 2 [facility] - Pre Admit Comment on above: Preop examination (P rimary Dx) Start: 10-09-2024 End: 10-09-2024 Preprocedural examination done [facility] 2 [facility] Start: 09-11-2024 End: 09-11-2024 Refill Uriel Gunter MD Work Phone: [facility] Comment on above: Refill Request Start: 08-11-2024 End: 08-11-2024 Refill Uriel Gunter MD Work Phone: [facility] Comment on above: Refill Request Start: 07-25-2024 End: 07-25-2024 ambulatory Ainsley YoungerNamkristi [facility] Work Phone: [facility] Start: 07-25-2024 End: 07-25-2024 E-mail encounter from caregiver Ainsley Woodson [facility] Work Phone: [facility] -3 Start: 06-30-2024 End: 06-30-2024 Refill Uriel Gunter MD Work Phone: [facility] Comment on above: Refill Request Start: 06-04-2024 End: 06-04-2024 Refill Uriel Gunter MD Work Phone: [facility] Comment on above: Refill Request Start: 05-29-2024 End: 05-29-2024 Telephone encounter Juna Ferguson RN Work Phone: Hematology/Oncology Comment on above: Care Coordination (L ab Results) Start: 05-27-2024 End: 05-27-2024 Telephone encounter Latrice MAHAJAN[facility] Work Phone: Hematology/Oncology Comment on above: Results Start: 05-27-2024 End: 05-27-2024 Office outpatient visit 15 minutes Latrice MAHAJAN[facility] Work Phone: Hematology/Oncology Comment on above: Multiple myeloma not having achieved remission (HCC) (Primary Dx); Type 2 diabetes mellitus without complication, with long-term current use of insulin (HCC) Start: 05-27-2024 End: 05-27-2024 ambulatory [facility] Facility:[facility] Start: 05-20-2024 End: 05-20-2024 Telephone encounter Latrice MAHAJAN[facility] Work Phone: Hematology/Oncology Comment on above: Lab Orders Start: 05-09-2024 Refill Ainsley rGiffin humaira [facility] Work Phone: [facility] Comment on above: Refill Request Start: 04-08-2024 Refill Uriel Gunter MD Work Phone: [facility] Comment on above: Refill Request Start: 03-06-2024 Refill Uriel Gunter MD Work Phone: [facility] Comment on above: Refill Request [...] (PSA) Start: 02-06-2024 Refill Ainsley YoungerNamsaida tobias [facility] Work Phone: [facility] Comment on above: Refill Request (revl imid) Start: 01-28-2024 Refill Porscheceline Adame [facility] Work Phone: [facility] Comment on above: Refill Request Start: 01-08-2024 Refill Uriel Gunter MD Work Phone: [facility] Comment on above: Refill Request Start: 12-10-2023 Refill Porsche Bonnerrow [facility] Work Phone: [facility] Comment on above: Refill Request Start: 11-27-2023 End: 11-27-[address] APRN.HOUSEKEEPING LAUNDRY WORKER Work Phone: Hematology/Oncology Comment on above: Multiple myeloma not having achieved remission (HCC) (Primary Dx); Paget disease of bone; Type 2 diabetes mellitus without complication, with long-term current use of insulin (HCC); H/O ulcerative colitis; Elevated prostate specific antigen (PSA); Stage 3b chronic kidney disease (HCC) Start: 11-27-2023 End: 11-27-2023 Patient encounter procedure [address]cca [address] APRN.HOUSEKEEPING LAUNDRY WORKER Work Phone: [place] Start: 11-23-2023 Telephone encounter Uriel mcdaniels MD Work Phone: Hematology/Oncology Comment on above: Lab Orders Start: 11-15-2023 Refill Aiden Hatfield MD Work Phone: [facility] Comment on above: Refill Request Start: 08-28-2023 End: 08-28-2023 ambulatory Chair Molly EllingtonCloud Work Phone: Hematology/Oncology Comment on above: Multiple [...] encounter procedure Uriel Gunter MD Work Phone: [place] Start: 08-20-2023 Refill Uriel Gunter MD Work Phone: [facility] Comment on above: Refill Request Start: 07-18-2023 Refill Ainsley YoungerDelisa collado [facility] Work Phone: [facility] Comment on above: Refill Request [...] encounter procedure Uriel Gunter MD Work Phone: [place] Start: 04-18-2023 Refill Aiden Hatfield MD Work Phone: [facility] Comment on above: Refill Request Start: 02-27-2023 Telephone encounter Uriel mcdaniels MD Work Phone: Hematology/Oncology Comment on above: Lab Orders Start: 02-05-2023 Refill Porsche Adame [facility] Work Phone: [facility] Comment on above: Refill Request Start: 12-28-2022 Refill Ainsley Griffin ick [facility] Work Phone: [facility] Comment on above: Refill Request Start: 12-19-2022 Refill Ainsley Griffin ick [facility] Work Phone: [facility] Comment on above: Refill Request Start: 12-05-2022 End: 12-05-[address] Work Phone: Hematology/Oncology Comment on above: Multiple myeloma, re mission status unspecified (HCC) (Primary Dx) Multiple myeloma not having achieved remission (HCC) (Primary Dx); Paget disease of bone; Type 2 diabetes mellitus without complication, with long-term current use of insulin (HCC); Elevated prostate specific antigen (PSA) Start: 12-05-2022 End: 12-05-2022 Patient encounter procedure Uriel Gunter MD Work Phone: [place] Start: 11-27-2022 Telephone encounter Uriel mcdaniels MD Work Phone: Hematology/Oncology Comment on above: Lab Orders Start: 11-16-2022 Refill Porsche Adame [facility] Work Phone: [facility] Comment on above: Refill Request Start: 10-16-2022 Refill Ainsley Griffin ick [facility] Work Phone: [facility] Comment on above: Refill Request Start: 09-21-2022 Refill Ainsley YoungerKitr ick [facility] Work Phone: Hematology/Oncology Comment on [...] Facility: Start: 08-11-2022 Refill Ainsley Griffin ick [facility] Work Phone: Hematology/Oncology Comment on [...] End: 06-20-2022 Patient encounter procedure [address]cca [address] APRN.[facility] Work Phone: [place] Start: 06-16-2022 Refill Porsche Wendi [facility] Work Phone: [facility] Comment on above: Refill Request Start: 06-15-2022 Telephone encounter Uriel mcdaniels MD Work Phone: Hematology/Oncology Comment on above: Lab Orders Start: 05-19-2022 Refill Ainsley YoungerKitsaida ick [facility] Work Phone: Hematology/Oncology Comment on above: Refill Request Start: 04-20-2022 Refill Quita Antoine [facility] Work Phone: [facility] Comment on above: Refill Request Start: 2022 Refill Quita Antoine [facility] Work Phone: [facility] Comment on above: Refill Request (ansley lidomide) [place] 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[facility]) Start: [...] encounter procedure Uriel Gunter MD Work Phone: [place] Start: 03-15-2022 End: 03-15-[address] HANNA MATHIAS Facility:[facility] Start: 03-14-2022 End: 03-15-[address] HANNA MATHIAS Facility:[facility] Start: 02-24-2022 Refill Ainsley Gaby collado [facility] Work Phone: Hematology/Oncology Comment on above: Refill Request Start: 01-30-2022 Refill Quita Antoine [facility] Work Phone: [facility] Comment on above: [...] encounter procedure Uriel Gunter MD Work Phone: [place] Start: 01-02-2022 Refill Porsche Adame [facility] Work Phone: [facility] Comment on above: Refill Request Start: 12-20-2021 End: 12-21-[address] ROXANA LEWIS Facility:[facility] Start: 11-10-2021 End: 11-11-[address] ROXANA LEWIS Facility:[facility] Start: 09-12-2021 End: 09-12-[address] HANNA MATHIAS Facility:[facility] Start: 09-10-2021 End: 09-11-[address] HANNA MATHIAS Facility:[facility] Start: 07-13-2018 End: 07-16-2018 Evaluation and management of inpatient HANNA MATHIAS Facility:[facility] Procedures Date Procedure Procedure Detail Performing Clinician Start: 03-21-2022 Adult depression scr eening assessment Uriel Gunter MD Work Phone: Start: 03-14-[address] ROLA MATHIAS Comment on above: Performed By: #### P SASC #### [facility] [address] [place] [address] Dr. Tigre Gant Start: 11-10-[address] ROLA MATHIAS Comment on above: Performed By: #### P SAD #### [facility] [address] [address] [address] Tigre Gant Start: 08-16-2021 Adult depression scr eening assessment Porsche Adame [facility] Work Phone: Start: 07-16-2018 REPOSITION R UP FEMU R WITH INTRAMED FIX, PERC APPROACH DANIELA ANTONY Start: 07-13-2018 INTRODUCTION OF SERUM/TOX/VACCINE INTO MUSCLE, PERC APPROACH FRANCIS SAVAGE Start: 07-13-2018 Antibody screen HANNA MATHIAS Comment on above: Performed By: #### [id number] #### [address] Plan of Treatment Date Care Activity Detail Author Start: 02-17-2026 Complete blood count Hemoglobin/Shaheen tocrit [facility] Start: 02-17-2026 Creatinine measurement Serum Creatin ine [facility] Start: 11-20-2025 Tobacco Screening Tobacco Screening [facility] Start: 10-09-2025 Tobacco Screening Tobacco Screening [facility] Start: 08-18-2025 End: 08-18-2025 Follow-up encounter Hematology/Oncology Comment on above: [address] [facility] Start: 08-18-2025 End: 08-18-2025 Patient encounter procedure 08/18/2025 10:15 AM EST Office Visit [facility] [address] [place] [address] [place] [address] 6 month follow up with lab [facility] Comment on above: [address] [facility] Start: 05-27-2025 Complete blood count Hemoglobin/Shaheen tocrit [facility] Start: 05-27-2025 Creatinine measurement Serum Creatin ine [facility] Start: 05-25-2025 Influenza vaccination Influenz a Vaccine (Season Ended) [facility] Start: 02-25-2025 Complete blood count Hemoglobin/Shaheen [facility] Start: 02-25-2025 Creatinine measurement Serum Creatin ine [facility] Start: 02-17-2025 End: 05-19-2025 MONOCLONAL PROTEIN, SERUM (BLOOD) [facility] Comment on above: Expected: 02/17/2025 , Expires: 05/19/2025 Start: 02-17-2025 End: 05-19-2025 PROT ELECT SERUM WITH TOÑITO AND INTERP [facility] Work Phone: Comment on above: Expected: 02/17/2025 , Expires: 05/19/2025 Start: 01-03-2025 Covid-19 Vaccine (10 - Mixed Product risk season) Covid-19 Vaccine (10 - Mixed Product risk season) [facility] Start: 11-26-2024 Complete blood count Hemoglobin/Shaheen tocakt [facility] Start: 11-26-2024 Creatinine measurement Serum Creatin ine [facility] Start: 11-20-2024 End: 11-20-2024 Admission to same day surgery center 11/20/2024 9:45 AM EST - 11/20/2024 10:30 AM EST Surgery [facility] - Surgery [address] [place] [id number] Bernardo Stapleton MD [address] [place] [address] EXTRACTION CATARACT INTRAOCULAR LENS [39520 (CPT )] [facility] Comment on above: EXTRACTION CATARACT INTRAOCULAR LENS [90192 (CPT )] Start: 11-20-2024 Subsequent hospital visit by physician 11/20/2024 9:45 AM EST Hospital Encounter [facility] [address] [place] [id number] Bernardo Stapleton MD [address] [place] [address] [phone] [facility] Start: 11-20-2024 End: 11-20-2024 Xcapsl ctrc rmvl insj io lens prosth w/o ecp [facility] Start: 11-19-2024 End: 11-19-2024 ambulatory 11/19/2024 3:50 PM EST Support Visit [facility] - Pre Admit [address] [place] [id number] [facility] Pre Admit Start: 10-30-2024 End: 10-30-2024 Admission to same day surgery center 10/30/2024 9:45 AM EST - 10/30/2024 10:30 AM EST Surgery [facility] [address] [place] [address] Bernardo Stapleton MD [address] [place] [address] [phone] EXTRACTION CATARACT INTRAOCULAR LENS [14712 (CPT )] [facility] Comment on above: EXTRACTION CATARACT INTRAOCULAR LENS [11999 (CPT )] Start: 10-30-2024 Subsequent hospital visit by physician 10/30/2024 9:45 AM EST Hospital Encounter [facility] [address] [place] [address] Bernardo Stapleton MD [address] [place] [id number] [facility] Start: 10-30-2024 End: 10-30-2024 Xcapsl ctrc rmvl insj io lens prosth w/o ecp EXTRACTION CATARACT INTRAOCULAR LENS cataract right eye 10/30/2024 9:45 AM EST [facility] Start: 09-24-2024 Advance Directive Discussion Advance Directive Discussion [facility] Start: 08-28-2024 Complete blood count Hemoglobin/Shaheen tocrit [facility] Start: 08-28-2024 Creatinine measurement Serum Creatin ine [facility] Start: 08-28-2024 Hemoglobin/Hematocrit Hemoglobin/Hem atocrit [facility] Start: 08-28-2024 Serum Creatinine Serum Creatinine Cl [facility] Start: 08-26-2024 End: 11-25-2024 CBC W Auto Differential panel - Blood COMPLETE BLOOD COUNT AND DIFFERENTIAL Lab Routine Multiple myeloma not having achieved remission (HCC) Expected: 08/26/2024 (Approximate), Expires: 11/25/2024 [facility] Comment on above: Expected: 08/26/2024 (Approximate), Expires: 11/25/2024 Start: 08-26-2024 End: 11-25-2024 Comprehensive metabolic 2000 panel - Serum or Plasma COMPREHENSIVE METABOLIC PANEL Lab Routine Multiple myeloma not having achieved remission (HCC) Expected: 08/26/2024 (Approximate), Expires: 11/25/2024 [facility] Work Phone: Comment on above: Expected: 08/26/2024 (Approximate), Expires: 11/25/2024 Start: 08-26-2024 End: 11-25-2024 KAPPA/DANIELS,FREE,SER KAPPA/DANIELS,FREE,SER Lab Routine Multiple myeloma not having achieved remission (HCC) Expected: 08/26/2024 (Approximate), Expires: 11/25/2024 [facility] Comment on above: Expected: 08/26/2024 (Approximate), Expires: 11/25/2024 Start: 08-26-2024 End: 11-25-2024 MONOCLONAL PROTEIN, SERUM (BLOOD) MONOCLONAL PROTEIN, SERUM (BLOOD) Lab Routine Multiple myeloma not having achieved remission (HCC) Expected: 08/26/2024 (Approximate), Expires: 11/25/2024 [facility] Comment on above: Expected: 08/26/2024 (Approximate), Expires: 11/25/2024 Start: 08-26-2024 End: 11-25-2024 PROTEIN ELECTROPHORESIS SERUM W/INTERP PROTEIN ELECTROPHORESIS SERUM W/INTERP Lab Routine Multiple myeloma not having achieved remission (HCC) Expected: 08/26/2024 (Approximate), Expires: 11/25/2024 [facility] Comment on above: Expected: 08/26/2024 (Approximate), Expires: 11/25/2024 Start: 08-26-2024 End: 08-26-2024 Follow-up encounter Hematology/Oncology Comment on above: 3 month follow up wi th lab and aredia Start: 08-26-2024 End: 08-26-2024 Patient encounter procedure [facility] Comment on above: 3 month follow up wi th lab and aredia Start: 05-29-2024 HEMOGLOBIN/HEMATOCRIT HEMOGLOBIN/HEM ATOCRIT [facility] Start: 05-29-2024 SERUM CREATININE SERUM CREATININE [facility] Start: 05-27-2024 End: 05-27-2024 Follow-up encounter Hematology/Oncology Comment on above: 3 month follow up wi th lab and aredia Start: 05-27-2024 End: 05-27-2024 Patient encounter procedure 05/27/2024 12:45 PM EDT Office Visit [facility] [address] [place] [address] [place] [address] 3 month follow up with lab and aredia [facility] Comment on above: 3 month follow up wi th lab and aredia Start: 05-25-2024 Covid-19 Vaccine ( season) Covid-19 Vaccine () [facility] Start: 05-25-2024 Covid-19 Vaccine () Covid-19 Vaccine () [facility] Start: 05-25-2024 Influenza vaccination C [facility] Start: 05-20-2024 End: 08-19-2024 CBC W Auto Differential panel - Blood COMPLETE BLOOD COUNT AND DIFFERENTIAL Lab Routine Multiple myeloma not having achieved remission (HCC) Expected: 05/20/2024, Expires: 08/19/2024 [facility] Comment on above: Expected: 05/20/2024 , Expires: 08/19/2024 Start: 05-20-2024 End: 08-19-2024 Comprehensive metabolic 2000 panel - Serum or Plasma COMPREHENSIVE METABOLIC PANEL Lab Routine Multiple myeloma not having achieved remission (HCC) Expected: 05/20/2024, Expires: 08/19/2024 [facility] Work Phone: Comment on above: Expected: 05/20/2024 , Expires: 08/19/2024 Start: 05-20-2024 End: 08-19-2024 MONOCLONAL PROTEIN, SERUM (BLOOD) MONOCLONAL PROTEIN, SERUM (BLOOD) Lab Routine Multiple myeloma not having achieved remission (HCC) Expected: 05/20/2024, Expires: 08/19/2024 [facility] Comment on above: Expected: 05/20/2024 , Expires: 08/19/2024 Start: 05-20-2024 End: 08-19-2024 PROTEIN ELECTROPHORESIS SERUM W/INTERP PROTEIN ELECTROPHORESIS SERUM W/INTERP Lab Routine Multiple myeloma not having achieved remission (HCC) Expected: 05/20/2024, Expires: 08/19/2024 [facility] Comment on above: Expected: 05/20/2024 , Expires: 08/19/2024 Start: 03-06-2024 HEMOGLOBIN/HEMATOCRIT HEMOGLOBIN/HEM ATOCRIT [facility] Start: 03-06-2024 SERUM CREATININE SERUM CREATININE [facility] Start: 02-26-2024 End: 02-26-2024 Follow-up encounter Hematology/Oncology Comment on above: 3 month follow up wi th lab and aredia Start: 02-26-2024 End: 02-26-2024 Patient encounter procedure 02/26/2024 1:00 PM EDT Office Visit [facility] [address] [place] [address] [place] [address] 3 month follow up with lab and [...] (HCC) Expected: 01/02/2024, Expires: 04/02/2024 [facility] Work Phone: Comment on above: [...] (HCC) Expected: 12/05/2023, Expires: 03/05/2024 [facility] Work Phone: Comment on above: [...] (HCC) Expected: 12/05/2023, Expires: 03/05/2024 [facility] Work Phone: Comment on above: Expected: 12/05/2023 , Expires: 03/05/2024 Start: 12-05-2023 End: 03-05-2024 PROT ELECT SERUM WITH TOÑITO AND INTERP PROT ELECT SERUM WITH TOÑITO AND INTERP Lab Routine Multiple myeloma not having achieved remission (HCC) Expected: 12/05/2023, Expires: 03/05/2024 [facility] Work Phone: Comment on above: Expected: 12/05/2023 , Expires: 03/05/2024 Start: 11-26-2023 End: 02-25-2024 Basic metabolic 2000 panel - Serum or Plasma BASIC METABOLIC PNL Lab Routine Multiple myeloma not having achieved remission (HCC) Expected: 11/26/2023, Expires: 02/25/2024 [facility] Work Phone: Comment on above: Expected: 11/26/2023 , Expires: 02/25/2024 Start: 11-26-2023 End: 02-25-2024 CBC W Auto Differential panel - Blood CBC + DIFF Lab Routine Multiple myeloma not having achieved remission (HCC) Expected: 11/26/2023, Expires: 02/25/2024 [facility] Work Phone: Comment on above: Expected: 11/26/2023 , Expires: 02/25/2024 Start: 11-26-2023 End: 02-25-2024 MONOCLONAL PROTEIN, SERUM (BLOOD) MONOCLONAL PROTEIN, SERUM (BLOOD) Lab Routine Multiple myeloma not having achieved remission (HCC) Expected: 11/26/2023, Expires: 02/25/2024 [facility] Work Phone: Comment on above: Expected: 11/26/2023 , Expires: 02/25/2024 Start: 11-26-2023 End: 02-25-2024 PROT ELECT SERUM WITH TOÑITO AND INTERP PROT ELECT SERUM WITH TOÑITO AND INTERP Lab Routine Multiple myeloma not having achieved remission (HCC) Expected: 11/26/2023, Expires: 02/25/2024 [facility] Work Phone: Comment on above: Expected: 11/26/2023 , Expires: 02/25/2024 Start: 09-24-2023 Advance Directive Discussion Advance Directive Discussion [facility] Start: 09-24-2023 Behavioral Health Screening Behavioral Health Screening [facility] Start: 09-24-2023 Depression Assessment Depression Ass essment [facility] Start: 09-01-2023 Covid-19 Vaccine () Covid-19 Vaccine () [facility] Start: 08-28-2023 End: 11-27-2023 MONOCLONAL PROTEIN, SERUM (BLOOD) [facility] Work Phone: Comment on above: Expected: 08/28/2023 , Expires: 11/27/2023 Start: 08-28-2023 End: 11-27-2023 PROT ELECT SERUM WITH TOÑITO AND INTERP [facility] Work Phone: Comment on above: Expected: 08/28/2023 , Expires: 11/27/2023 Start: 05-25-2023 Covid-19 Vaccine () Covid-19 Vaccine () [facility] Start: 05-25-2023 Influenza vaccination [facility] Start: 03-21-2023 Adult depression screening assessment DEPRESSION SCREENING [facility] Start: 03-06-2023 End: 05-06-2023 CBC W Auto Differential panel - Blood CBC + DIFF Lab Routine Multiple myeloma not having achieved remission (HCC) Expected: 03/06/2023, Expires: 05/06/2023 [facility] Work Phone: Comment on above: Expected: 03/06/2023 , Expires: 05/06/2023 Start: 03-06-2023 End: 05-06-2023 Comprehensive metabolic 2000 panel - Serum or Plasma COMP METABOLIC PANEL Lab Routine Multiple myeloma not having achieved remission (HCC) Expected: 03/06/2023, Expires: 05/06/2023 [facility] Work Phone: Comment on above: Expected: 03/06/2023 , Expires: 05/06/2023 Start: 03-06-2023 End: 05-06-2023 MONOCLONAL PROTEIN, SERUM (BLOOD) MONOCLONAL PROTEIN, SERUM (BLOOD) Lab Routine Multiple myeloma not having achieved remission (HCC) Expected: 03/06/2023, Expires: 05/06/2023 [facility] Work Phone: Comment on above: Expected: 03/06/2023 , Expires: 05/06/2023 Start: 03-06-2023 End: 05-06-2023 PROT ELECT SERUM WITH TOÑITO AND INTERP PROT ELECT SERUM WITH TOÑITO AND INTERP Lab Routine Multiple myeloma not having achieved remission (HCC) Expected: 03/06/2023, Expires: 05/06/2023 [facility] Work Phone: Comment on above: Expected: 03/06/2023 , Expires: 05/06/2023 Start: 12-05-2022 End: 02-04-2023 CBC W Auto Differential panel - Blood CBC + DIFF Lab Routine Multiple myeloma not having achieved remission (HCC) Expected: 12/05/2022, Expires: 02/04/2023 [facility] Work Phone: Comment on above: Expected: 12/05/2022 , Expires: 02/04/2023 Start: 12-05-2022 End: 02-04-2023 Comprehensive metabolic 2000 panel - Serum or Plasma COMP METABOLIC PANEL Lab Routine Multiple myeloma not having achieved remission (HCC) Expected: 12/05/2022, Expires: 02/04/2023 [facility] Work Phone: Comment on above: Expected: 12/05/2022 , Expires: 02/04/2023 Start: 12-05-2022 End: 02-04-2023 MONOCLONAL PROTEIN, SERUM (BLOOD) MONOCLONAL PROTEIN, SERUM (BLOOD) Lab Routine Multiple myeloma not having achieved remission (HCC) Expected: 12/05/2022, Expires: 02/04/2023 [facility] Work Phone: Comment on above: Expected: 12/05/2022 , Expires: 02/04/2023 Start: 12-05-2022 End: 02-04-2023 PROT ELECT SERUM WITH TOÑITO AND INTERP PROT ELECT SERUM WITH TOÑITO AND INTERP Lab Routine Multiple myeloma not having achieved remission (HCC) Expected: 12/05/2022, Expires: 02/04/2023 [facility] Work Phone: Comment on above: Expected: 12/05/2022 , Expires: 02/04/2023 Start: 09-24-2022 ADVANCE DIRECTIVE DISCUSSION ADVANCE DIRECTIVE DISCUSSION [facility] Start: 09-24-2022 DEPRESSION ASSESSMENT DEPRESSION ASS ESSMENT [facility] Start: 09-12-2022 End: 11-12-2022 CBC W Auto Differential panel - Blood CBC + DIFF Lab Routine Multiple myeloma not having achieved remission (HCC) Paget disease of bone Type 2 diabetes mellitus without complication, with long-term current use of insulin (HCC) Elevated prostate specific antigen (PSA) Expected: 09/12/2022, Expires: 11/12/2022 [facility] Work Phone: Comment on above: [...] (PSA) Expected: 09/12/2022, Expires: 11/12/2022 [facility] Work Phone: Comment on above: Expected: 09/12/2022 , Expires: 11/12/2022 Start: 09-12-2022 End: 11-12-2022 MONOCLONAL PROTEIN, SERUM (BLOOD) MONOCLONAL PROTEIN, SERUM (BLOOD) Lab Routine Multiple myeloma not having achieved remission (HCC) Paget disease of bone Type 2 diabetes mellitus without complication, with long-term current use of insulin (HCC) Elevated prostate specific antigen (PSA) Expected: 09/12/2022, Expires: 11/12/2022 [facility] Work Phone: Comment on above: [...] (PSA) Expected: 09/12/2022, Expires: 11/12/2022 [facility] Work Phone: Comment on above: Expected: 09/12/2022 , Expires: 11/12/2022 Start: 08-16-2022 Adult depression screening assessment DEPRESSION SCREENING [facility] Start: 08-03-2022 COVID-19 VACCINE (7 - Mixed Product risk series) COVID-19 VACCINE (7 - Mixed Product risk series) [facility] Start: 06-16-2022 End: 08-16-2022 CBC W Auto Differential panel - Blood CBC + DIFF Lab Routine Multiple myeloma not having achieved remission (HCC) Expected: 06/16/2022, Expires: 08/16/2022 [facility] Work Phone: Comment on above: Expected: 06/16/2022 , Expires: 08/16/2022 Start: 06-16-2022 End: 08-16-2022 Comprehensive metabolic 2000 panel - Serum or Plasma COMP METABOLIC PANEL Lab Routine Multiple myeloma not having achieved remission (HCC) Expected: 06/16/2022, Expires: 08/16/2022 [facility] Work Phone: Comment on above: Expected: 06/16/2022 , Expires: 08/16/2022 Start: 06-16-2022 End: 08-16-2022 MONOCLONAL PROTEIN, SERUM (BLOOD) MONOCLONAL PROTEIN, SERUM (BLOOD) Lab Routine Multiple myeloma not having achieved remission (HCC) Expected: 06/16/2022, Expires: 08/16/2022 [facility] Work Phone: Comment on above: Expected: 06/16/2022 , Expires: 08/16/2022 Start: 06-16-2022 End: 08-16-2022 PROT ELECT SERUM WITH TOÑITO AND INTERP PROT ELECT SERUM WITH TOÑITO AND INTERP Lab Routine Multiple myeloma not having achieved remission (HCC) Expected: 06/16/2022, Expires: 08/16/2022 [facility] Work Phone: Comment on above: Expected: 06/16/2022 , Expires: 08/16/2022 Start: 05-25-2022 Influenza vaccination INFLUENZA (#1) [facility] Start: 05-15-2022 COVID-19 VACCINE (5 - Booster) COVID-19 VACCINE (5 - Booster) [facility] Start: 03-23-2022 End: 05-23-2022 CBC W Auto Differential panel - Blood CBC + DIFF Lab Routine Multiple myeloma not having achieved remission (HCC) Expected: 03/23/2022, Expires: 05/23/2022 [facility] Work Phone: Comment on above: Expected: 03/23/2022 , Expires: 05/23/2022 Start: 03-23-2022 End: 05-23-2022 Comprehensive metabolic 2000 panel - Serum or Plasma COMP METABOLIC PANEL Lab Routine Multiple myeloma not having achieved remission (HCC) Expected: 03/23/2022, Expires: 05/23/2022 [facility] Work Phone: Comment on above: Expected: 03/23/2022 , Expires: 05/23/2022 Start: 03-23-2022 End: 05-23-2022 MONOCLONAL PROTEIN, SERUM (BLOOD) MONOCLONAL PROTEIN, SERUM (BLOOD) Lab Routine Multiple myeloma not having achieved remission (HCC) Expected: 03/23/2022, Expires: 05/23/2022 [facility] Work Phone: Comment on above: Expected: 03/23/2022 , Expires: 05/23/2022 Start: 03-23-2022 End: 05-23-2022 PROT ELECT SERUM WITH TOÑITO AND INTERP PROT ELECT SERUM WITH TOÑITO AND INTERP Lab Routine Multiple myeloma not having achieved remission (HCC) Expected: 03/23/2022, Expires: 05/23/2022 [facility] Work Phone: Comment on above: Expected: 03/23/2022 , Expires: 05/23/2022 Start: 03-10-2022 COVID-19 VACCINE (5 - Booster) COVID-19 VACCINE (5 - Booster) [facility] Start: 09-28-2021 COVID-19 VACCINE (4 - Booster) COVID-19 VACCINE (4 - Booster) [facility] Start: 09-24-2021 ADVANCE DIRECTIVE DISCUSSION ADVANCE DIRECTIVE DISCUSSION [facility] Start: 09-24-2021 DEPRESSION ASSESSMENT DEPRESSION ASS ESSMENT [facility] Start: 2012 Fall Risk Screening Fall Risk Screen [facility] Start: 2012 PNEUMOVAX AGE 65 AND OVER WITH 5YR LOOKBACK (#1) PNEUMOVAX AGE 65 AND OVER WITH 5YR LOOKBACK (#1) [facility] Start: 2007 Hepatitis B Vaccine (1 of 3 - Risk 3-dose series) Hepatitis B Vaccine (1 of 3 - Risk 3-dose series) [facility] Start: 2007 RSV Vaccine (1 - 1-d ose 60+ series) RSV Vaccine (1 - 1-dose 60+ series) [facility] Start: 1997 Administration of varicella zoster vaccine Zoster (Shingles) Vaccine (1 of 2) [facility] Start: 1997 SHINGRIX VACCINE (1 of 2) NICK GRIX VACCINE (1 of 2) [facility] Start: 1992 COLOGUARD (FIT-DNA) COLOGUARD (FIT-D NA) [facility] Start: 1992 Colonoscopy COLONOSCOPY [facility] Start: 1992 COLORECTAL CANCER SCREENING COLORECTAL CANCER SCREENING [facility] Start: [address] COLONOGRAPHY [facility] Start: 1992 FECAL OCCULT BLOOD FECAL OCCULT BLOO D [facility] Start: 1992 SIGMOIDOSCOPY SIGMOIDOSCOPY [facility] Start: 1966 DTaP,Tdap and Td Vac cines (1 - Tdap) DTaP,Tdap and Td Vaccines (1 - Tdap) [facility] Start: 1966 Pneumococcal Vaccine : 50+ (1 of 2 - PCV) Pneumococcal Vaccine: 50+ (1 of 2 - PCV) [facility] Start: 1966 SHINGRIX VACCINE (1 of 2) NICK GRIX VACCINE (1 of 2) [facility] Start: 1966 Urine microalbumin profile [facility] Start: 1965 ANNUAL PCP TEAM VIDEOGRAPHER VINICIO DISEASE VISIT ANNUAL PCP TEAM CHRONIC DISEASE VISIT [facility] Start: 1965 Anxiety Screening Anxiety Screening [facility] Start: 1965 Depression Screening Depression Scre matt [facility] Start: 1965 Hepatitis B surface antibody level LDL CHOLESTEROL [facility] Start: 1965 HEPATITIS C SCREENING HEPATITIS C [facility] Start: 1965 Hepatitis C screening Hepatitis C [facility] Start: 1959 Depression Screening Depression Scre [facility] Start: 1957 3 comp foot exam completed DIABETIC FOOT EXAM [facility] Start: 1957 Diabetic foot examination Diabetic F oot Exam [facility] Start: 1957 Glaucoma screening Dilated Retinal E xam [facility] Start: 1957 Hepatitis B screening URINE AL BUMIN:CREATININE RATIO [facility] Start: 1957 Hepatitis C antibody , confirmatory test DILATED RETINAL EXAM [facility] Start: 1953 Pneumococcal Vaccine : 65+ (1 - PCV) Pneumococcal Vaccine: 65+ (1 - PCV) [facility] Start: 1953 Pneumococcal Vaccine : 65+ (1 of 2 - PCV) Pneumococcal Vaccine: 65+ (1 of 2 - PCV) [facility] Start: 1953 PNEUMOCOCCAL: 65+ (1 - PCV) PNEUMOCOCCAL: 65+ (1 - PCV) [facility] Start: 1952 Hemoglobin A1c measurement HbA1C [facility] Start: 1952 Hemoglobin A1c/Hemoglobin.total in Blood HBA1C [facility] Start: 1947 ABDOMINAL AORTIC ANE URYSM SCREENING ABDOMINAL AORTIC ANEURYSM SCREENING [facility] Immunizations Immunization Date Immunization Notes Care Provider Sangeetha huang 07-07-2023 respiratory syncytia l virus (RSV) vaccine, bivalent (ABRYSVO) Chair Yepez Work Phone: [facility] 06-28-2021 COVID-19 vaccine (UNSPECIFIED) Porsche Adame [facility] Work Phone: [facility] 06-28-2021 COVID-19 vaccine, ag e 12+ yr (PFIZER-[email or web address] - PURPLE TOP) Porsche Aadme [facility] Work Phone: [facility] 06-16-2021 influenza, high-dose , quadrivalent vaccine (FLUZONE HIGH DOSE QUADRIVALENT) Porsche Adame [facility] Work Phone: [facility] 06-16-2021 influenza virus vacc ine, unspecified formulation Ainsley Woodson [facility] Work Phone: [facility] 11-11-2020 COVID-19 vaccine, ag e 12+ yr (PFIZER-BIONTECH - PURPLE TOP) Porsche Adame [facility] Work Phone: [facility] 10-22-2020 COVID-19 vaccine, ag e 12+ yr (PFIZER-BIONTECH - PURPLE TOP) Porsche Adame [facility] Work Phone: [facility] 07-05-2020 Seasonal trivalent influenza vaccine, adjuvanted, preservative free Porsche Adame [facility] Work Phone: [facility] 07-19-2016 influenza virus vacc ine, unspecified formulation Porsche Adame [facility] Work Phone: [facility] Payers Date Payer Category Payer Medicare MEDICARE MEDICAR E A AND B [id number] 2012-Present [phone] [place] [address] Medicare [id number] 2012 Medicare [id number] 2012 Private Health Insurance [facility] [id number] 2012 Unknown [employer] INSURANCE FORETHOUGHT SUPPLEMENT [id number] 2012-Present [phone] [address] [address] [place] [address] Indemnity [id number] 2012 Unknown [employer] INSURANCE FORETHOUGHT SUPPLEMENT [id number] 2012-Present [phone] [address] [address] [place] [address] Indemnity [id number] 1959 Medicare [id number] 1959 Unknown [id number] 1947 Unknown [id number] 2.16.840.1.812357.3.579. 2.647 1947 Unknown [id number] 2.16.840.1.573829.3.579. 2.593 1947 Unknown [id number] 2.16.840.1.030499.3.579. 2.593 1947 Unknown [id number] 2.16.840.1.243423.3.579. 2.593 1947 Unknown [id number] 2.16.840.1.608919.3.579. 2.593 1947 Unknown [id number] 2.16.840.1.695489.3.579. 2.593 1947 Unknown [id number] 2.16.840.1.705087.3.579. 2.593 1947 Unknown [id number] 2.16.840.1.630032.3.579. 2.593 1947 Unknown [id number] 2.16.840.1.846864.3.579. 2.593 1947 Unknown [id number] 2.16.840.1.498274.3.579. 2.1286 1947 Unknown [id number] 2.16.840.1.925965.3.579. 2.1286 1947 Unknown [id number] 2.16.840.1.705081.3.579. 2.1285 1947 Unknown [id number] 2.16.840.1.694779.3.579. 2.1286 1947 Unknown [id number] 2.16.840.1.551171.3.579. 2.1285 1947 Unknown [id number] 2.16.840.1.680961.3.579. 2.1286 1947 Unknown [id number] 2.16.840.1.685148.3.579. 2.128 1947 Unknown [id number] 2.16.840.1.678713.3.579. 2.1286 1947 Unknown [id number] 2.16.840.1.181444.3.579. 2.1286 Managed Care Other (unspecified) [id number] Medicare [id number] Social History Date Type Detail Facility Start: 10-20-2015 [facility] Work Phone: Start: 09-24-1960 End: 09-24-1990 History of tobacco use Current smoker [facility] Work Phone: Start: 09-24-1960 End: 09-24-1990 History of tobacco use Cigarette Smoker [facility] Work Phone: Start: 11-28-2021 End: 02-26-2024 Alcohol intake Current non-drinker of alcohol (finding) [facility] Start: 1945 Sex Assigned At Not on file C [facility] Start: 01-14-2022 End: 06-20-2022 Exposure to SARS-CoV-2 (event) Not sure [facility] Start: 10-20-2015 End: 03-06-2023 Cigarettes smoked current (pack per day) - Reported 2 [facility] Start: 10-20-2015 End: 10-09-2024 Tobacco use and exposure Smokeless tobacco non-user [facility] Start: 03-21-2022 End: 03-06-2023 Tobacco use panel [facility] National Score (1-10 0), lower number is lower risk 63 [facility] Start: 10-09-2024 Tobacco smoking stat us MTIS Never smoked tobacco [facility] Start: 10-09-2024 End: 11-19-2024 Alcoholic beverage intake Ex-drinker (finding) [facility] Start: 04-29-2015 Sex Male (finding) [facility] [employer] Medical Equipment Procedure Code Equipment Code Equipment Origin al Text Equipment Identifier Dates Lens Iol [id number]. [address] [facility] [id number] - [id number] - [id number] Start: 10-30-2024 Lens Iol [id number]. [address] [facility] [id number] - [id number] - [id number] Start: 11-20-2024 Functional Status Date Assessment Result Facility 04-09-2015 Are you deaf, or do you have serious difficulty hearing No 04/09/2015 11:20 AM Selin Sierra MA No [facility] 04-09-2015 Are you blind, or do you have serious difficulty seeing, even when wearing glasses No 04/09/2015 11:20 AM Selin Sierra MA No [facility] 04-09-2015 Do you have serious difficulty walking or climbing stairs No 04/09/2015 11:20 AM Selin Sierra MA No [facility] 04-09-2015 Do you have difficul ty dressing or bathing No 04/09/2015 11:20 AM Selin Sierra MA No [facility] 04-09-2015 Because of a physica l, mental, or emotional condition, do you have difficulty doing errands alone such as visiting a physician's office or shopping No 04/09/2015 11:20 AM Selin Sierra MA No [facility] Mental Status Date Assessment Result Facility 04-09-2015 Because of a physica l, mental, or emotional condition, do you have serious difficulty concentrating, remembering, or making decisions No 04/09/2015 11:20 AM Selin Sierra MA [facility] Clinical Notes 01-24-2022 to 02-19-2025 Telephone Encounter [...] this time. Appointment verified. Bozena Roland RN [facility] 02-19-2025 Miscellaneous Notes Pt informed of BRM message, once verified, using 2 patient identifiers. Patient denies any questions, needs or concerns at this time. Appointment verified. Bozena Roland RN documented in this encounter [facility] 02-16-2025 Note HNO ID: [id number] Author: URIEL GUNTER MD Service: ? Author [...] mellitus (HCC) Hyperlipidemia Monoclonal gammopathy 11/2002 IgG [facility] Multiple myeloma (HCC) 2002 Ulcerative colitis (HCC) [...] for metastases. 08/18/2019 - Bone survey at [facility] Conclusion: Scattered lytic lesions, stable in num (more content not included)... [facility] 02-16-2025 History of Presen t illness [...] mellitus (HCC) Hyperlipidemia Monoclonal gammopathy 11/2002 IgG [facility] Multiple myeloma (HCC) 2002 Ulcerative colitis (HCC) [...] for metastases. 08/18/2019 - Bone survey at [facility] Conclusion: Scattered lytic lesions, stable in number and size from prior exams. 05/06/2018 - Bone Survey at [facility] Scattered lytic lesions, stable in both number [...] Uriel Gunter MD documented in this encounter [facility] 11-19-2024 Nurse Note Preoperative Education Checklist- General Surgery date: 11/20/24 Surgery time: 945a Arrival time: 745a 1. Bring a photo ID and your insurance card with you the day of surgery. You will check in at the main lobby of the [facility]- registration desk is straight ahead as soon as you walk in. Tell them you are here for surgery. 2. If you have a Living Will/Durable Power of Proration Clerk for Health Care that is not on [...] after you have bathed. 5. NO nail beninese/acrylic on at least one finger. If you are having a hand, wrist or foot surgery then all nail beninese and artificial/acrylic nails must be removed from [...] please call the Preadmission Testing office at [phone], Mon.-Fri. 7 a.m.-3 p.m. Leave a voicemail [...] Stop taking 0 days prior to procedure [facility] 11-19-2024 Miscellaneous Notes Preoperative Education Checklist- General Surgery date: 11/20/24 Surgery time: 945a Arrival time: 745a 1. Bring a photo ID and your insurance card with you the day of surgery. You will check in at the main lobby of the [facility]- registration desk is straight ahead as soon as you walk in. Tell them you are here for surgery. 2. If you have a Living Will/Durable Power of Proration Clerk for Health Care that is not on [...] after you have bathed. 5. NO nail beninese/acrylic on at least one finger. If you are having a hand, wrist or foot surgery then all nail beninese and artificial/acrylic nails must be removed from [...] please call the Preadmission Testing office at [phone], Mon.-Fri. 7 a.m.-3 p.m. Leave a voicemail [...] procedure documented in this encounter [facility] 10-10-2024 Telephone encounter Note Zach called requesting a refill on his revlimid. He is on his off week starting 10/11/24 and would like the script shipped to his house. Thank you- Dustin Woodson PharmD, MADI [facility] Work Phone: 10-10-2024 Miscellaneous Notes Zach called requesting a refill on his revlimid. He is on his off week starting 10/11/24 and would like the script shipped to his house. Thank you- Dustin Woodson PharmD, BCOP documented in this encounter [facility] 10-09-2024 Instructions Nilam Ortiz RN - 10/09/2024 9:45 AM EST Preoperative Education Checklist- General Surgery date: 10/30/24 Surgery time: 945a Arrival time: 745a 1. Bring a photo ID and your insurance card with you the day of surgery. You will check in at the main lobby of the [facility]- registration desk is straight ahead as soon as you walk in. Tell them you are here for surgery. 2. If you have a Living Will/Durable Power of Proration Clerk for Health Care that is not on [...] after you have bathed. 5. NO nail beninese/acrylic on at least one finger. If you are having a hand, wrist or foot surgery then all nail beninese and artificial/acrylic nails must be removed from [...] please call the Preadmission Testing office at [phone], Mon.-Fri. 7 a.m.-3 p.m. Leave a voicemail [...] prior to procedure documented in this encounter [facility] 05-29-2024 Telephone encounter Note Pt and spouse notified and verbalizes understanding. Juan Ferguson RN [facility] Work Phone: 05-29-2024 Miscellaneous Notes Pt and spouse notified and verbalizes understanding. Juan Ferguson RN ----- Message from Latrice Hilario PA-C sent at 05/29/2024 11:58 AM EDT ----- Please call with stable myeloma labs documented in this encounter [facility] 05-29-2024 Telephone encounter Note ----- Message from Latrice Hilario PA-C sent at 05/29/2024 11:58 AM EDT ----- Please call with stable myeloma labs [facility] 05-27-2024 Telephone encounter Note Pt's spouse notified and verbalizes understanding. Juan Ferguson RN [facility] Work Phone: 05-27-2024 Miscellaneous Notes Pt's spouse notified and verbalizes understanding. Juan Ferguson RN Please call with a stable kidney function. Latrice Hilario PA-C documented in this encounter [facility] 05-27-2024 Telephone encounter Note Please call with a stable kidney function. Latrice Hilario PA-C [facility] Work Phone: 05-27-2024 Note HNO ID: [id number] Author: LATRICE HILARIO PA-C Service: ? Author Type: Physician Communication Arts Lecturer Type: Progress Notes Filed: 05/27/2024 13:29 Note [...] date: Hyperlipidemia 11/2002: Monoclonal gammopathy Comment: IgG [facility] 2003: Multiple myeloma (HCC) No date: Ulcerative [...] for metastases. 08/18/2019 - Bone survey at [facility] Conclusion: Scattered lytic lesions, stable in number and size from prior exams. 05/06/2018 - [place] (more content not included)... [facility] 05-27-2024 History of Presen t illness [...] date: Hyperlipidemia 11/2002: Monoclonal gammopathy Comment: IgG [facility] 2002: Multiple myeloma (HCC) No date: Ulcerative [...] for metastases. 08/18/2019 - Bone survey at [facility] Conclusion: Scattered lytic lesions, stable in number and size from prior exams. 05/06/2018 - Bone Survey at [facility] Scattered lytic lesions, stable in both number [...] which included preparing to see the patient, zxts-yk-lpyw patient care, completing clinical documentation, performing a medically appropriate examination, counseling and educating the patient/family/caregiver, ordering medications, tests, or procedures, independently interpreting results (not separately reported), communicating results to the patient/family/caregiver, and care coordination (not separately reported). documented in this encounter [facility] 05-20-2024 Telephone encounter Note Patient has an appt on 05/27/24. Would you like labs, if so place orders. Irma Talavera MA [facility] 05-20-2024 Miscellaneous Notes Patient has an appt on 05/27/24. Would you like labs, if so place orders. Irma Talavera MA documented in this encounter [facility] 02-29-2024 Telephone encounter Note Pt notified and verbalizes understanding. Juan Ferguson RN [facility] Work Phone: 02-29-2024 Telephone encounter Note ----- Message from Latrice Hilario PA-C sent at 02/29/2024 8:10 AM EDT ----- Please let patient know his labs are stable and we will continue to monitor [facility] 02-29-2024 Miscellaneous Notes Pt notified and verbalizes understanding. Juan Ferguson RN ----- Message from Latrice Hilario PA-C sent at 02/29/2024 8:10 AM EDT ----- Please let patient know his labs are stable and we will continue to monitor documented in this encounter [facility] 02-25-2024 Note HNO ID: [id number] Author: URIEL GUNTER MD Service: ? Author [...] mellitus (HCC) Hyperlipidemia Monoclonal gammopathy 11/2002 IgG [facility] Multiple myeloma (HCC) 2002 Ulcerative colitis (HCC) [...] osseous lesions s (more content not included)... [facility] 02-25-2024 History of Presen t illness [...] mellitus (HCC) Hyperlipidemia Monoclonal gammopathy 11/2002 IgG [facility] Multiple myeloma (HCC) 2002 Ulcerative colitis (HCC) [...] for metastases. 08/18/2019 - Bone survey at [facility] Conclusion: Scattered lytic lesions, stable in number and size from prior exams. 05/06/2018 - Bone Survey at [facility] Scattered lytic lesions, stable in both number [...] Uriel Gunter MD documented in this encounter [facility] 11-27-2023 History of Presen t [...] DROPS INTO AFFECTED EYE 4 TIMES DAILY nlgsypxd-fqfxknorf-sbusyylrcjsdm e (CORTISPORIN) otic solution INSTILL 3 4 [...] mellitus (HCC) Hyperlipidemia Monoclonal gammopathy 11/2002 IgG [facility] Multiple myeloma (HCC) 2002 Ulcerative colitis (HCC) [...] for metastases. 08/18/2019 - Bone survey at [facility] Conclusion: Scattered lytic lesions, stable in number and size from prior exams. 05/06/2018 - Bone Survey at [facility] Scattered lytic lesions, stable in both number [...] considered if renal function worsens. Becca Lane APRN.HOUSEKEEPING LAUNDRY WORKER I spent a total of 30 minutes on the date of the service which included preparing to see the patient, ttuw-tl-dhlf patient care, completing clinical documentation, obtaining and/or reviewing separately obtained history, performing a medically appropriate examination, counseling and educating the patient/family/caregiver, ordering medications, tests, or procedures, independently interpreting results (not separately reported), and communicating results to the patient/family/caregiver. documented in this encounter [facility] 11-23-2023 Miscellaneous Notes Patient has an appt on 11/26. Would you like labs? documented in this encounter [facility] 08-28-2023 History of Presen t [...] DROPS INTO AFFECTED EYE 4 TIMES DAILY frvzommi-fryxspjvo-yeehditjefmia e (CORTISPORIN) otic solution INSTILL 3 4 [...] mellitus (HCC) Hyperlipidemia Monoclonal gammopathy 11/2002 IgG [facility] Multiple myeloma (HCC) 2002 Ulcerative colitis (HCC) [...] for metastases. 08/18/2019 - Bone survey at [facility] Conclusion: Scattered lytic lesions, stable in number and size from prior exams. 05/06/2018 - Bone Survey at [facility] Scattered lytic lesions, stable in both number [...] Uriel Gunter MD documented in this encounter [facility] 05-31-2023 Miscellaneous Notes Pt informed of TAYLOR message. He denies any questions or concerns at this time. Appt holley Roland RN ----- Message from Uriel Gunter MD sent at 05/31/2023 12:08 PM EDT ----- Please inform the patient that his protein analysis is stable which is excellent news. We will continue as planned. documented in this encounter [facility] 05-29-2023 History of Presen t [...] DROPS INTO AFFECTED EYE 4 TIMES DAILY oqdsldqr-tnvjqnwzz-ttlvqiitwixij e (CORTISPORIN) otic solution INSTILL 3 4 [...] mellitus (HCC) Hyperlipidemia Monoclonal gammopathy 11/2002 IgG [facility] Multiple myeloma (HCC) 2002 Ulcerative colitis (HCC) [...] for metastases. 08/18/2019 - Bone survey at [facility] Conclusion: Scattered lytic lesions, stable in number and size from prior exams. 05/06/2018 - Bone Survey at [facility] Scattered lytic lesions, stable in both number [...] Uriel Gunter MD documented in this encounter [facility] 02-27-2023 Miscellaneous Notes Patient has an OTV appointment on 03/06. Please place lab orders. Monica Baptiste documented in this encounter [facility] 12-05-2022 History of Presen t [...] DROPS INTO AFFECTED EYE 4 TIMES DAILY nkbzfnfw-jhpfvnkmg-mkhcxftvzalpr e (CORTISPORIN) otic solution INSTILL 3 4 [...] mellitus (HCC) Hyperlipidemia Monoclonal gammopathy 11/2002 IgG [facility] Multiple myeloma (HCC) 2002 Ulcerative colitis (HCC) [...] for metastases. 08/18/2019 - Bone survey at [facility] Conclusion: Scattered lytic lesions, stable in number and size from prior exams. 05/06/2018 - Bone Survey at [facility] Scattered lytic lesions, stable in both number [...] Uriel Gunter MD documented in this encounter [facility] 11-27-2022 Miscellaneous Notes Addended by: URIEL GUNTER on: 11/27/2022 01:06 PM Modules accepted: Orders Patient coming in on Sunday12/05/22 for follow up treatment. Please add lab orders. Thanks, Selin Stapleton MA documented in this encounter [facility] 09-21-2022 Miscellaneous Notes Please sign in everyone's absence. Thank you Dustin Woodson rPh documented in this encounter [facility] 09-12-2022 History of Presen t illness Narrative PATIENT NAME: Zach Manuel DATE: 09/12/2022 PRIMARY CARE PHYSICIAN: Dr. Hnana Mathias OTHER PHYSICIANS: Dr. Lewis, Dr. Martinez [...] DROPS INTO AFFECTED EYE 4 TIMES DAILY exnaqyta-oicoxexyb-esciszprivvqk e (CORTISPORIN) otic solution INSTILL 3 4 [...] mellitus (HCC) Hyperlipidemia Monoclonal gammopathy 11/2002 IgG [facility] Multiple myeloma (HCC) 2002 Ulcerative colitis (HCC) [...] for metastases. 08/18/2019 - Bone survey at [facility] Conclusion: Scattered lytic lesions, stable in number and size from prior exams. 05/06/2018 - Bone Survey at [facility] Scattered lytic lesions, stable in both number [...] Uriel Gunter MD documented in this encounter [facility] 06-20-2022 History of Presen t illness Narrative Recommendations per pharmacist Humaira Woodson [facility] for patient to take calcium with Vit D 1 tab twice daily especially as his calcium levels normally run low. Patient education complete with printed material. Questions answered as appropriate. He was encouraged to call with questions or concerns. Ese Ferro RN documented in this encounter [facility] 06-20-2022 History of Presen t [...] DROPS INTO AFFECTED EYE 4 TIMES DAILY xigypcjz-djrdvknwd-avrcvzhghsnsk e (CORTISPORIN) otic solution INSTILL 3 4 [...] mellitus (HCC) Hyperlipidemia Monoclonal gammopathy 11/2002 IgG [facility] Multiple myeloma (HCC) 2002 Ulcerative colitis (HCC) [...] for metastases. 08/18/2019 - Bone survey at [facility] Conclusion: Scattered lytic lesions, stable in number and size from prior exams. 05/06/2018 - Bone Survey at [facility] Scattered lytic lesions, stable in both number [...] Becca Lane APRN.CNP documented in this encounter [facility] 06-20-2022 Miscellaneous Notes Pt due for Aredia today. Pharmacy suggests checking pt's Calcium level w/ today's labs. Order pended. Juan Ferguson, RN documented in this encounter [facility] 06-16-2022 Miscellaneous Notes Please sign for Dr. Gunter since he is out of the office. Thanks, Becca Lane APRN.PASTORA documented in this encounter [facility] 06-15-2022 Miscellaneous Notes Patient has an appt on 06/20. Would you like labs? documented in this encounter [facility] 04-20-2022 Miscellaneous Notes Signed documented in this encounter [facility] 2022 Miscellaneous Notes New benjamin obtained through [facility] for $[id number] on ID# [id number] Enrollment 02/27/2022 through 02/26/2023 documented in this encounter [facility] 03-24-2022 Miscellaneous Notes Informed pt's of Dr Gunter's message. Janett verbalized understanding and denies further needs at this time. Funmilayo Arriola RN ----- Message from Uriel Gunter MD sent at 03/23/2022 4:50 PM EDT ----- Please inform the patient that his labs are stable, M spike down to 0.68. We will continue as planned. Bennie, TAYLOR documented in this encounter [facility] 03-21-2022 History of Presen t [...] DROPS INTO AFFECTED EYE 4 TIMES DAILY eopqftoy-zyoyfjcyc-qihhqicdmfhlj e (CORTISPORIN) otic solution INSTILL 3 4 [...] mellitus (HCC) Hyperlipidemia Monoclonal gammopathy 11/2002 IgG [facility] Multiple myeloma (HCC) 2002 Ulcerative colitis (HCC) [...] for metastases. 08/18/2019 - Bone survey at [facility] Conclusion: Scattered lytic lesions, stable in number and size from prior exams. 05/06/2018 - Bone Survey at [facility] Scattered lytic lesions, stable in both number [...] Uriel Gunter MD documented in this encounter [facility] 02-24-2022 Miscellaneous Notes Signed. documented in this encounter [facility] 01-24-2022 History of Presen t [...] DROPS INTO AFFECTED EYE 4 TIMES DAILY lqatszwr-dziryknqq-tfwmbxcawfmfp e (CORTISPORIN) otic solution INSTILL 3 4 [...] mellitus (HCC) Hyperlipidemia Monoclonal gammopathy 11/2002 IgG [facility] Multiple myeloma (HCC) 2002 Ulcerative colitis (HCC) [...] RADIOLOGY/OTHER STUDIES: 08/18/2019 - Bone survey at [facility] Conclusion: Scattered lytic lesions, stable in number and size from prior exams. 05/06/2018 - Bone Survey at 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 [facility] Diagnosis Multiple myeloma not having achieved remission (HCC)- Primary Multiple myeloma, without mention of having achieved remission 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 H/O ulcerative colitis Personal history of other diseases of digestive system Stage 3b chronic kidney disease (HCC) documented in this encounter [facility] HospitalInstructionsNot on filedocumented in this encounterWexner Medical CenterReason for visit Narrative* Monson Prior Authorization (Routine) - Authorized Specialty Diagnoses / Procedures Referred By Contac t Referred To Contact Diagnoses Multiple myeloma not having achieved remission (HCC) Paget disease of bone Uriel Gunter MD [address] [address] Phone: tel: fax: Hematology/Oncology [address] [place] [address] Phone: tel: fax: Referral ID Status Reason Start Date Expiration Date V isits Requested Visits Authorized [id number] Authorized 02/26/2024 05/26/2024 99 99 [facility] Summary Purpose Family History No Family History Records FoundNo Family History Records FoundNo Family History Records FoundNo Family History Records FoundNo Family History Records FoundNo Family History Records Found Advance Directives Documents on File Type Date Recorded Patient Automation Test Developer Expl anation Durable Power of Proration Clerk 11/11/2024 8:31 AM Hospital Course Note MR#: [id number] I [facility] Pt. Name: Zach Manuel Admitted: 07/13/2018 [...] complication. The patient will be discharged to snf facility. CONSULTATION DURING ADMISSION: Orthopedics. PROCEDURE DURING [...] t Referred To Contact Aiden Hatfield MD [address] [place] [id number] Referral ID Status Reason Start Date Expiration Date V isits Requested Visits Authorized [id number] Authorized 06/24/2022 09/23/2023 1 1 Additional Source Comments (unrecognized sect ion and content) No Status Records FoundNo Status Records FoundNo Status Records FoundNo Status Records FoundNo Status Records FoundNo Status Records Found INFORMATION SOURCE (unrecogn ized section and content) DATE CREATED AUTHOR 06/06/2019 [facility] DATE CREATED AUTHOR AUTHOR'S ORGANIZ ATION 11/17/[address] [facility] DATE CREATED AUTHOR AUTHOR'S ORGANIZ ATION 12/27/2021 [facility] DATE CREATED AUTHOR AUTHOR'S ORGANIZ ATION 09/02/[address] [facility] DATE CREATED AUTHOR AUTHOR'S ORGANIZ ATION 11/21/2024 [facility] DATE CREATED AUTHOR AUTHOR'S ORGANIZ ATION 02/19/2025 [facility] Source Comments (unrecognize d section and content) In the event this informatio n is protected by the Federal Confidentiality of Alcohol and Drug Abuse Patient Records regulations: The Federal rules restrict any use of the information to criminally investigate or prosecute any alcohol or drug abuse patient.[facility] the event this information is protected by the Federal Confidentiality of Alcohol and Drug Abuse Patient Records regulations: The Federal rules restrict any use of the information to criminally investigate or prosecute any alcohol or drug abuse patient.[facility] Hospital[facility] the event this information is protected by the Federal Confidentiality of Alcohol and Drug Abuse Patient Records regulations: The Federal rules restrict any use of the information to criminally investigate or prosecute any alcohol or drug abuse patient.[facility] HospitalIn the event this information is protected by the Federal Confidentiality of Alcohol and Drug Abuse Patient Records regulations: The Federal rules restrict any use of the information to criminally investigate or prosecute any alcohol or drug abuse patient.[facility] HospitalIn the event this information is protected by the Federal Confidentiality of Alcohol and Drug Abuse Patient Records regulations: The Federal rules restrict any use of the information to criminally investigate or prosecute any alcohol or drug abuse patient.[facility] Hospital[facility] the event this information is protected by the Federal Confidentiality of Alcohol and Drug Abuse Patient Records regulations: The Federal rules restrict any use of the information to criminally investigate or prosecute any alcohol or drug abuse patient.[facility] HospitalIn the event this information is protected by the Federal Confidentiality of Alcohol and Drug Abuse Patient Records regulations: The Federal rules restrict any use of the information to criminally investigate or prosecute any alcohol or drug abuse patient.[facility] Hospital[facility] the event this information is protected by the Federal Confidentiality of Alcohol and Drug Abuse Patient Records regulations: The Federal rules restrict any use of the information to criminally investigate or prosecute any alcohol or drug abuse patient.[facility] HospitalIn the event this information is protected by the Federal Confidentiality of Alcohol and Drug Abuse Patient Records regulations: The Federal rules restrict any use of the information to criminally investigate or prosecute any alcohol or drug abuse patient.[facility] HospitalIn the event this information is protected by the Federal Confidentiality of Alcohol and Drug Abuse Patient Records regulations: The Federal rules restrict any use of the information to criminally investigate or prosecute any alcohol or drug abuse patient.[facility] HospitalIn the event this information is protected by the Federal Confidentiality of Alcohol and Drug Abuse Patient Records regulations: The Federal rules restrict any use of the information to criminally investigate or prosecute any alcohol or drug abuse patient.[facility] HospitalIn the event this information is protected by the Federal Confidentiality of Alcohol and Drug Abuse Patient Records regulations: The Federal rules restrict any use of the information to criminally investigate or prosecute any alcohol or drug abuse patient.[facility] HospitalIn the event this information is protected by the Federal Confidentiality of Alcohol and Drug Abuse Patient Records regulations: The Federal rules restrict any use of the information to criminally investigate or prosecute any alcohol or drug abuse patient.[facility] HospitalIn the event this information is protected by the Federal Confidentiality of Alcohol and Drug Abuse Patient Records regulations: The Federal rules restrict any use of the information to criminally investigate or prosecute any alcohol or drug abuse patient.[facility] HospitalIn the event this information is protected by the Federal Confidentiality of Alcohol and Drug Abuse Patient Records regulations: The Federal rules restrict any use of the information to criminally investigate or prosecute any alcohol or drug abuse patient.[facility] HospitalIn the event this information is protected by the Federal Confidentiality of Alcohol and Drug Abuse Patient Records regulations: The Federal rules restrict any use of the information to criminally investigate or prosecute any alcohol or drug abuse patient.[facility] HospitalIn the event this information is protected by the Federal Confidentiality of Alcohol and Drug Abuse Patient Records regulations: The Federal rules restrict any use of the information to criminally investigate or prosecute any alcohol or drug abuse patient.[facility] HospitalIn the event this information is protected by the Federal Confidentiality of Alcohol and Drug Abuse Patient Records regulations: The Federal rules restrict any use of the information to criminally investigate or prosecute any alcohol or drug abuse patient.[facility] HospitalIn the event this information is protected by the Federal Confidentiality of Alcohol and Drug Abuse Patient Records regulations: The Federal rules restrict any use of the information to criminally investigate or prosecute any alcohol or drug abuse patient.[facility] HospitalIn the event this information is protected by the Federal Confidentiality of Alcohol and Drug Abuse Patient Records regulations: The Federal rules restrict any use of the information to criminally investigate or prosecute any alcohol or drug abuse patient.[facility] HospitalIn the event this information is protected by the Federal Confidentiality of Alcohol and Drug Abuse Patient Records regulations: The Federal rules restrict any use of the information to criminally investigate or prosecute any alcohol or drug abuse patient.[facility] HospitalIn the event this information is protected by the Federal Confidentiality of Alcohol and Drug Abuse Patient Records regulations: The Federal rules restrict any use of the information to criminally investigate or prosecute any alcohol or drug abuse patient.[facility] HospitalIn the event this information is protected by the Federal Confidentiality of Alcohol and Drug Abuse Patient Records regulations: The Federal rules restrict any use of the information to criminally investigate or prosecute any alcohol or drug abuse patient.[facility] HospitalIn the event this information is protected by the Federal Confidentiality of Alcohol and Drug Abuse Patient Records regulations: The Federal rules restrict any use of the information to criminally investigate or prosecute any alcohol or drug abuse patient.[facility] HospitalIn the event this information is protected by the Federal Confidentiality of Alcohol and Drug Abuse Patient Records regulations: The Federal rules restrict any use of the information to criminally investigate or prosecute any alcohol or drug abuse patient.[facility] HospitalIn the event this information is protected by the Federal Confidentiality of Alcohol and Drug Abuse Patient Records regulations: The Federal rules restrict any use of the information to criminally investigate or prosecute any alcohol or drug abuse patient.[facility] HospitalIn the event this information is protected by the Federal Confidentiality of Alcohol and Drug Abuse Patient Records regulations: The Federal rules restrict any use of the information to criminally investigate or prosecute any alcohol or drug abuse patient.[facility] HospitalIn the event this information is protected by the Federal Confidentiality of Alcohol and Drug Abuse Patient Records regulations: The Federal rules restrict any use of the information to criminally investigate or prosecute any alcohol or drug abuse patient.[facility] HospitalIn the event this information is protected by the Federal Confidentiality of Alcohol and Drug Abuse Patient Records regulations: The Federal rules restrict any use of the information to criminally investigate or prosecute any alcohol or drug abuse patient.[facility] HospitalIn the event this information is protected by the Federal Confidentiality of Alcohol and Drug Abuse Patient Records regulations: The Federal rules restrict any use of the information to criminally investigate or prosecute any alcohol or drug abuse patient.[facility] HospitalIn the event this information is protected by the Federal Confidentiality of Alcohol and Drug Abuse Patient Records regulations: The Federal rules restrict any use of the information to criminally investigate or prosecute any alcohol or drug abuse patient.[facility] HospitalIn the event this information is protected by the Federal Confidentiality of Alcohol and Drug Abuse Patient Records regulations: The Federal rules restrict any use of the information to criminally investigate or prosecute any alcohol or drug abuse patient.[facility] HospitalIn the event this information is protected by the Federal Confidentiality of Alcohol and Drug Abuse Patient Records regulations: The Federal rules restrict any use of the information to criminally investigate or prosecute any alcohol or drug abuse patient.[facility] HospitalIn the event this information is protected by the Federal Confidentiality of Alcohol and Drug Abuse Patient Records regulations: The Federal rules restrict any use of the information to criminally investigate or prosecute any alcohol or drug abuse patient.[facility] HospitalIn the event this information is protected by the Federal Confidentiality of Alcohol and Drug Abuse Patient Records regulations: The Federal rules restrict any use of the information to criminally investigate or prosecute any alcohol or drug abuse patient.[facility] HospitalIn the event this information is protected by the Federal Confidentiality of Alcohol and Drug Abuse Patient Records regulations: The Federal rules restrict any use of the information to criminally investigate or prosecute any alcohol or drug abuse patient.[facility] HospitalIn the event this information is protected by the Federal Confidentiality of Alcohol and Drug Abuse Patient Records regulations: The Federal rules restrict any use of the information to criminally investigate or prosecute any alcohol or drug abuse patient.[facility] HospitalIn the event this information is protected by the Federal Confidentiality of Alcohol and Drug Abuse Patient Records regulations: The Federal rules restrict any use of the information to criminally investigate or prosecute any alcohol or drug abuse patient.[facility] HospitalIn the event this information is protected by the Federal Confidentiality of Alcohol and Drug Abuse Patient Records regulations: The Federal rules restrict any use of the information to criminally investigate or prosecute any alcohol or drug abuse patient.[facility] HospitalIn the event this information is protected by the Federal Confidentiality of Alcohol and Drug Abuse Patient Records regulations: The Federal rules restrict any use of the information to criminally investigate or prosecute any alcohol or drug abuse patient.[facility] HospitalIn the event this information is protected by the Federal Confidentiality of Alcohol and Drug Abuse Patient Records regulations: The Federal rules restrict any use of the information to criminally investigate or prosecute any alcohol or drug abuse patient.[facility] HospitalIn the event this information is protected by the Federal Confidentiality of Alcohol and Drug Abuse Patient Records regulations: The Federal rules restrict any use of the information to criminally investigate or prosecute any alcohol or drug abuse patient.[facility] HospitalIn the event this information is protected by the Federal Confidentiality of Alcohol and Drug Abuse Patient Records regulations: The Federal rules restrict any use of the information to criminally investigate or prosecute any alcohol or drug abuse patient.[facility] HospitalIn the event this information is protected by the Federal Confidentiality of Alcohol and Drug Abuse Patient Records regulations: The Federal rules restrict any use of the information to criminally investigate or prosecute any alcohol or drug abuse patient.[facility] HospitalIn the event this information is protected by the Federal Confidentiality of Alcohol and Drug Abuse Patient Records regulations: The Federal rules restrict any use of the information to criminally investigate or prosecute any alcohol or drug abuse patient.[facility] HospitalIn the event this information is protected by the Federal Confidentiality of Alcohol and Drug Abuse Patient Records regulations: The Federal rules restrict any use of the information to criminally investigate or prosecute any alcohol or drug abuse patient.[facility] HospitalIn the event this information is protected by the Federal Confidentiality of Alcohol and Drug Abuse Patient Records regulations: The Federal rules restrict any use of the information to criminally investigate or prosecute any alcohol or drug abuse patient.[facility] HospitalIn the event this information is protected by the Federal Confidentiality of Alcohol and Drug Abuse Patient Records regulations: The Federal rules restrict any use of the information to criminally investigate or prosecute any alcohol or drug abuse patient.[facility] HospitalIn the event this information is protected by the Federal Confidentiality of Alcohol and Drug Abuse Patient Records regulations: The Federal rules restrict any use of the information to criminally investigate or prosecute any alcohol or drug abuse patient.[facility] HospitalIn the event this information is protected by the Federal Confidentiality of Alcohol and Drug Abuse Patient Records regulations: The Federal rules restrict any use of the information to criminally investigate or prosecute any alcohol or drug abuse patient.[facility] HospitalIn the event this information is protected by the Federal Confidentiality of Alcohol and Drug Abuse Patient Records regulations: The Federal rules restrict any use of the information to criminally investigate or prosecute any alcohol or drug abuse patient.[facility] HospitalIn the event this information is protected by the Federal Confidentiality of Alcohol and Drug Abuse Patient Records regulations: The Federal rules restrict any use of the information to criminally investigate or prosecute any alcohol or drug abuse patient.[facility] HospitalIn the event this information is protected by the Federal Confidentiality of Alcohol and Drug Abuse Patient Records regulations: The Federal rules restrict any use of the information to criminally investigate or prosecute any alcohol or drug abuse patient.[facility] HospitalIn the event this information is protected by the Federal Confidentiality of Alcohol and Drug Abuse Patient Records regulations: The Federal rules restrict any use of the information to criminally investigate or prosecute any alcohol or drug abuse patient.[facility] HospitalIn the event this information is protected by the Federal Confidentiality of Alcohol and Drug Abuse Patient Records regulations: The Federal rules restrict any use of the information to criminally investigate or prosecute any alcohol or drug abuse patient.[facility] HospitalIn the event this information is protected by the Federal Confidentiality of Alcohol and Drug Abuse Patient Records regulations: The Federal rules restrict any use of the information to criminally investigate or prosecute any alcohol or drug abuse patient.[facility] HospitalIn the event this information is protected by the Federal Confidentiality of Alcohol and Drug Abuse Patient Records regulations: The Federal rules restrict any use of the information to criminally investigate or prosecute any alcohol or drug abuse patient.[facility] HospitalIn the event this information is protected by the Federal Confidentiality of Alcohol and Drug Abuse Patient Records regulations: The Federal rules restrict any use of the information to criminally investigate or prosecute any alcohol or drug abuse patient.[facility] HospitalIn the event this information is protected by the Federal Confidentiality of Alcohol and Drug Abuse Patient Records regulations: The Federal rules restrict any use of the information to criminally investigate or prosecute any alcohol or drug abuse patient.[facility] HospitalIn the event this information is protected by the Federal Confidentiality of Alcohol and Drug Abuse Patient Records regulations: The Federal rules restrict any use of the information to criminally investigate or prosecute any alcohol or drug abuse patient.[facility] HospitalIn the event this information is protected by the Federal Confidentiality of Alcohol and Drug Abuse Patient Records regulations: The Federal rules restrict any use of the information to criminally investigate or prosecute any alcohol or drug abuse patient.[facility] HospitalIn the event this information is protected by the Federal Confidentiality of Alcohol and Drug Abuse Patient Records regulations: The Federal rules restrict any use of the information to criminally investigate or prosecute any alcohol or drug abuse patient.[facility] HospitalIn the event this information is protected by the Federal Confidentiality of Alcohol and Drug Abuse Patient Records regulations: The Federal rules restrict any use of the information to criminally investigate or prosecute any alcohol or drug abuse patient.[facility] Reason for Visit (unrecogniz ed section and content) Reason Onset Date Comments Refill Request 01/02/2022 Reason Comments Multiple Myeloma Reason Onset Date Comments Refill Request 01/30/2022 Reason Onset Date Comments Refill Request 02/24/2022 Reason Comments Multiple Myeloma follow up Reason Comments Results Reason Onset Date Comments Refill Request 2022 lenalidomide Reason Comments [place] [facility] obtained Reason Onset Date Comments Refill Request 04/20/2022 Reason Onset Date Comments Refill Request 05/19/2022 Reason Comments Lab Orders Reason Onset Date Comments Refill Request 06/16/2022 Specialty Diagnoses / Procedures Referred By [facility] Referred To Contact Diagnoses Multiple myeloma, remission status unspecified (HCC) Uriel Gunter MD [address] [place] [address] [place] [address] Sha[address] Treat [address] [place] [address] Referral ID Status Reason Start Date Expiration Date V isits Requested Visits Authorized [id number] Authorized 12/10/2020 03/10/2021 99 99 Reason Comments [...] revlimid Specialty Diagnoses / Procedures [facility] Referred To Contact Diagnoses Multiple myeloma not having achieved remission (HCC) Paget disease of bone Uriel Gunter MD [address] [place] [address] [place] [address] Shaheen Treat Marleni [address] [place] [address] Referral ID Status Reason Start Date Expiration Date V isits Requested Visits Authorized [id number] Authorized 02/26/2024 05/26/2024 99 99 Reason Comments [...] Care Teams (unrecognized sec tion and content) Doubler Operator Relationship Specialty Start Date End Date Hanna Mathias MD [address] [phone] PCP - General 01/27/03 Doubler Operator Relationship Specialty Start Date End Date Hanna Mathias MD [address] [phone] PCP - General 01/27/03 Doubler Operator Relationship Specialty Start Date End Date Hanna Mathias MD [address] [phone] PCP - General 01/27/03 Doubler Operator Relationship Specialty Start Date End Date Hanna Mtahias MD [address] [phone] PCP - General 01/27/03 Doubler Operator Relationship Specialty Start Date End Date Hanna Mathias MD [address] [place] [facility] [place] [address] PCP - General 01/27/03 Doubler Operator Relationship Specialty Start Date End Date Hanna Mathias MD [address] [place] [facility] [place] [address] PCP - General 01/27/03 Doubler Operator Relationship Specialty Start Date End Date Hanna Mathias MD [address] [place] [facility] [place] [address] PCP - General 01/27/03 Doubler Operator Relationship Specialty Start Date End Date Hanna Mathias MD [address] [place] [facility] [place] [address] PCP - General 01/27/03 Doubler Operator Relationship Specialty Start Date End Date Hanna Mathias MD [address] [place] [facility] [place] [address] PCP - General 01/27/03 Doubler Operator Relationship Specialty Start Date End Date Hanna Mathias MD [address] [place] [facility] [place] [address] PCP - General 01/27/03 Doubler Operator Relationship Specialty Start Date End Date Hanna Mathias MD [address] [place] [facility] [place] [address] PCP - General 01/27/03 Doubler Operator Relationship Specialty Start Date End Date Hanna Mathias MD [address] [facility] [place] [address] PCP - General 01/27/03 Doubler Operator Relationship Specialty Start Date End Date Hanna Mathias MD [address] [facility]], [place] [address] PCP - General 01/27/03 Doubler Operator Relationship Specialty Start Date End Date Hanna Mathias MD [address] [facility] [place] [address] PCP - General 01/27/03 Doubler Operator Relationship Specialty Start Date End Date Hanna Mathias MD [address] [facility] [place] [address] PCP - General 01/27/03 Doubler Operator Relationship Specialty Start Date End Date Hanna Mathias MD [address] [facility] [place] [address] PCP - General 01/27/03 Doubler Operator Relationship Specialty Start Date End Date Hanna Mathias MD [address] [place] [facility] [place] [address] PCP - General 01/27/03 Doubler Operator Relationship Specialty Start Date End Date Hanna Mathias MD [address] [place] [facility] [place] [address] PCP - General 01/27/03 Doubler Operator Relationship Specialty Start Date End Date Hanna Mathias MD [address] [facility] [place] [address] PCP - General 01/27/03 Doubler Operator Relationship Specialty Start Date End Date Hanna Mathias MD [address] [place] [facility] [place] [address] PCP - General 01/27/03 Doubler Operator Relationship Specialty Start Date End Date Hanna Mathias MD [address] [place] [facility] [place] [address] PCP - General 01/27/03 Doubler Operator Relationship Specialty Start Date End Date Hanna Mathias MD [address] [place] [address] PCP - General 01/27/03 Doubler Operator Relationship Specialty Start Date End Date Hanna Mathias MD [address] [place] [address] PCP - General 01/27/03 Doubler Operator Relationship Specialty Start Date End Date Hanna Mathias MD [address] [place] [address] PCP - General 01/27/03 Doubler Operator Relationship Specialty Start Date End Date Hanna Mathias MD [address] [phone] PCP - General 01/27/03 Doubler Operator Relationship Specialty Start Date End Date Hanna Mathias MD [address] [place] [phone] PCP - General 01/27/03 Doubler Operator Relationship Specialty Start Date End Date Hanna Mathias MD [address] [id number] PCP - General 01/27/03 Doubler Operator Relationship Specialty Start Date End Date Hanna Mathias MD [address] [place] [address] PCP - General 01/27/03 Doubler Operator Relationship Specialty Start Date End Date Hanna Mathias MD [address] [phone] PCP - General 01/27/03 Doubler Operator Relationship Specialty Start Date End Date Hanna Mathias MD [address] [place] [address] PCP - General 01/27/03 Doubler Operator Relationship Specialty Start Date End Date Hanna Mathias MD [address] [place] [address] PCP - General 01/27/03 Doubler Operator Relationship Specialty Start Date End Date Hanna Mathias MD [address] [phone] PCP - General 01/27/03 Doubler Operator Relationship Specialty Start Date End Date Hanna Mathias MD [address] [phone] PCP - General 01/27/03 Doubler Operator Relationship Specialty Start Date End Date Hanna Mathias MD [address] [place] [address] PCP - General 01/27/03 Doubler Operator Relationship Specialty Start Date End Date Hanna Mathias MD [address] [place] [phone] PCP - General Family Medicine 10/30/24 Doubler Operator Relationship Specialty Start Date End Date Hanna Mathias MD [address] [place] [address] PCP - General 01/27/03 Doubler Operator Relationship Specialty Start Date End Date Hanna Mathias MD [address] [place] [address] PCP - General 01/27/03 FOR RECORDS PERTAINING [...] BE BASED ON THE PRIMARY CLINICAL RECORDS. [facility] [place] [facility]. provides no warranty or guarantee of the accuracy or completeness of information in this document.
== END 2025-06-05 09:47 | disposition home or self-care (01) ==
PROVIDERS: PCP Family Medicine; Visit Provider Family Medicine
DX: R07.89 Other chest pain (principal)
CPT/HCPCS: 71046; 71100

== ENCOUNTER 2025-08-05 08:41 | Outpatient (OUT) | payer MEDICARE, OTHER, SELFPAY ==
--- OUTSIDE RECORDS SUMMARY | 2025-07-27 06:30 | XMS_ITS ---
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 Trader Name Role Phone Doron Young Primary Care Provider Allergies Allergen (clinical drug ingredient) Drug/Non Drug Allergy documented on EMR Reaction Allergy Type Onset Date Status EntexUnknownDrug AllergyActivepantoprazoleProtonixanxietyDrug AllergyActive metoclopramideMetoclopramideanxietyDrug AllergyActiveneomycinNeomycinUnknownDrug AllergyActiveSubstance with sulfonamide structure and antibacterial mechanism of action (substance)Sulfa AntibioticsUnknownDrug AllergyActiveerythromycin ErythromycinUnknownDrug AllergyActive Reason For Referral Diagnosis 1 Hernia (K46.9) Referral Organization [facility] Medicine Referring Provider First Name Doron Referring Provider Last Name Hector Referring Provider Speciality Family Med efrem Referred Provider Manny Rosales Referred Provider Specialty General Surg anne Referral Priority Routine REASON FOR VISIT Presents to office alone for c/o lump in left groin. Has been present for years. Over the past month, it has become painful Medications Medication SIG (Take, Route, Frequency, Duration) Notes Start Date End Date Status glyBURIDE Micronized 6 MG Take 1 tablet by mouth twice daily; Duration: 90 ActiveDexilant 60 MG1 capsule Orally Once a day; Duration: 30 daysActive hydrOXYzine HCl 25 MG1 tablet as needed Orally Once a day; Duration: 30 days 5ActiveRevlimid 5 MGOral; Duration: 28 DaysActivePioglitazone HCl 30 MG Take 1 tablet by mouth once daily; Duration: 90ActiveoxyCODONE HCl 10 MG1 Orally dx M54.12 qid prn; Duration: 30 days5ActiveTriamcinolone Acetonide 0.1 %1 application Externally bid5ActivePantoprazole Sodium 40 MG1 tablet 1/2 to 1 hour before morning meal Orally Once a day; Duration: 30 days06/08/2025 ActivemetFORMIN HCl 500 MGTake 1 tablet by mouth 4 times daily; Duration: 90 ActiveLiothyronine Sodium 5 MCGTake 2 tablets Orally Once a day; Duration: 90 daysActiveKetoconazole 2 %1 application Externally twide daily; Duration: 7 days 5ActiveJardiance 10 MGTake 1 tablet by mouth once daily; Duration: 90 Active Social History Tobacco Use: Social History Observation Description Date Details (start date - stop date) Former Smoker 09/24/1964 - 09/24/1986 Tobacco Use/Smoking Question Answer Notes Patient is a former smoker When did you start smoking?09/24/1964When did you stop smoking?09/24/1986How long has it been since you last smoked?> 10 yearsAUDIT-C (Standard) Question Answer Notes Did you have a drink containing alcohol in the p ast year? No Uahybv3MxbjgynlqiihumPelxtndl Problems Problem Type SNOMED Code ICD Code Onset Dates Problem Status W/U Status Risk Notes Problem Hernia (471121259) Hernia (K46.9) ActiveconfirmedProblemEdema (51646075)Edema (R60.9)Activeconfirmed Vital Signs Weight 184.6 lbs 07/27/2025 Height 69 in 07/27/2025 Blood pressure systolic 136 mm Hg 07/27/20 25 Blood pressure diastolic 60 mm Hg 025 BMI 27.26 kg/m2 07/27/2025 Encounters Encounter Location Date Provider Diagnosis [facility] [address] [place] [address] 07/27/2025 Doron Hoy Hernia K46.9 ; Edema R60.9 and Eczema L30.9 Assessments Encounter Date Diagnosis (ICD Code) Assessment Notes Treatment Notes Treatment Clinical Notes Section Notes 07/27/2025 Hernia (ICD-10 - K46.9) 07/27/2025Edema (ICD-10 - R60.9) not CHF - no alvarado - lungs clear more likebly venoius insuficiency 07/27/2025Eczema (ICD-10 - L30.9) Plan Of Treatment Medication Medication Name Sig Start Date Stop Date Notes Triamcinolone Acetonide 0.1 % 1 application Externally bid 07/27/2025 Treatment Notes Assessment Notes Edema not CHF - no alvarado - lungs clear more likebly venoius insuficiency Pending Test Test Name Order Date CT ABD and PELV W CON 07/27/2025 Referrals Referral Date Details 07/27/2025 07/27/2025, Manny Rosales Next Appt Details Provider Name:Doron Jessica Young, 10:45:00 AM, [address] [place], [address], Progress Notes * Zach MANUEL FDOB:1945 (80 yo M)Acc No.[id number]:07/27/2025 Progress Note Patient: Zach SUTTON :?Jose Alberto Barboza Hector ([facility]), MDDOB:1945???Age: 80 Y???Sex:MaleDate:07/27/2025Phone:[phone]:[address] [place] [id number] In:11:15 AM ESTCheck Out:12:04 PM EST Subjective: * Chief Complaints: * P resents to office alone for c/o lump in left groin. Has been present for years. Over the past month, it has become painful * HPI: ???General:?Left groin swelling - hernia getting worse. * Active Problem List M54.12 Cervical radiculopat hy Modified On:07/24/2023/U Status:xcufwyrhnM43.9Peripheral neuropathy Modified On:07/24/2023/U Status:opsdxmhlgZ92.9Eczema Modified On:07/24/2023/U Status:stfxycrwyU12.50Arthralgia Modified On:07/24/2023/U Status:wvrysrnprQ60.9Lumbar disc disease Modified On:07/24/2023 Status:vtaqrfmggD68.90Ulcerative colitis Modified On:07/24/2023 Status:londnapawK62.90Crohns disease Modified On:07/24/2023 Status:cqrtdjeocZ35.10Acquired spondylolisthesis Modified On:07/24/2023 Status:ftuqsyjbzG79.90Degenerative joint disease Modified On:07/24/2023 Status:nbaitlvpxX84.817Lumbosacral spondylosis Modified On:07/24/2023 Status:ujdfpzhmdH07.10Bundle branch block, right Modified On:07/24/2023 Status:ojitcsfxeG80.00Hypercholesterolemia Modified On:07/24/2023 Status:bfhuaqofeN53.2Monoclonal gammopathy Modified On:07/24/2023 Status:wtjtvyvicZ32.5Hyperlipidemia Modified On:07/24/2023 Status:eourltlvzG93.909Asthma Modified On:07/24/2023 Status:iahyzdxstR77.10Myalgia Modified On:07/24/2023 Status:jxxtqrgaqM44.9Diabetes mellitus Modified On:12/14/2023 Status:swhthmcymP54.9Diabetes Modified On:04/09/2023 Status:atjmvxmxxC02.00Multiple myeloma not having achieved remission Modified On:05/31/2023 Status:fmrurxufaX92.9Osteitis deformans of unspecified bone Modified On:05/31/2023 Status:ybhqzvyidF14.20Elevated prostate specific antigen [PSA] Modified On:05/31/2023 Status:aanttrvqyA90.32Chronic kidney disease, stage 3b Modified On:05/31/2023 Status:cqfmwsynuZ70.9GERD (gastroesophageal reflux disease) Modified On:01/23/2024 Status:fpbxmmlznZ07.22Type 2 diabetes mellitus with diabetic chronic kidney disease Modified On:03/03/2024 Status:ifwvgfauuR05.9Anxiety Modified On:10/02/2024W/U Status:riagxhusfX75.90Cellulitis Modified On:08/15/2024/U Status:fvyzeewtoU89.9Abnormal white blood cell Modified On:04/10/2025/U Status:vxycmkqzeB63.89Chest wall pain Modified On:06/04/2025/U Status:rxdqcqkitT38.9Hernia Modified On:07/27/2025/U Status:zaalsctqqX23.9Edema Modified On:07/27/2025/U Status:confirmed * Medical History: * Surgical History: A PPENDECTOMY TONSILLECTOMY,OVER 12 YRS Colectomy Bladder removal Inguinal Hreniorrhaphy, left 02/2010Spermatocele- excision 02/2010Reduction&internal fixation subtrochanteric Rt Femur 01/2019Bilat Cataract extraction * Hospitalization/Major Diagno stic Procedure: * Family History: F ather: , Liver issues, diagnosed with Diabetes. M other: , bladder cancer. B rother(s): alive, diagnosed with Diabetes. S on(s): alive. 1 brother(s) . 1 son(s) - healthy. . * Social History: ???Tobacco Use:?Tobacco Use/Smoking?Patient is a?former smoker ?When did you start smoking??09/24/1964 ?When did you stop smoking??09/24/1986 ?How long has it been since you last smoked? > 10 years ???Drug/Alcohol:?AUDIT-C (Standard)?Did you have a drink containing alcohol in the past year??No ?Points?0 ?Interpretation?Negative * Medications: T akingDexilant(Dexlansoprazole) 60 MG Capsule Delayed Release 1 capsule Orally Once a day glyBURIDE Micronized 6 MG Tablet Take 1 tablet by mouth twice daily hydrOXYzine HCl 25 MG Tablet 1 tablet as needed Orally Once a day Jardiance(Empagliflozin) 10 MG Tablet Take 1 tablet by mouth once daily Ketoconazole 2 % Cream 1 application Externally twide daily Liothyronine Sodium 5 MCG Tablet Take 2 tablets Orally Once a day metFORMIN HCl 500 MG Tablet Take 1 tablet by mouth 4 times daily oxyCODONE HCl 10 MG Tablet 1 Orally dx M54.12 qid prn Pantoprazole Sodium 40 MG Tablet Delayed Release 1 tablet 1/2 to 1 hour before morning meal Orally Once a day Pioglitazone HCl 30 MG Tablet Take 1 tablet by mouth once daily Revlimid(Lenalidomide) 5 MG Capsule Oral Taking Dexilant(Dexlansoprazole) 60 MG Capsule Delayed Release 1 capsule Orally Once a day Taking glyBURIDE Micronized 6 MG Tablet Take 1 tablet by mouth twice daily Taking hydrOXYzine HCl 25 MG Tablet 1 tablet as needed Orally Once a day Taking Jardiance(Empagliflozin) 10 MG Tablet Take 1 tablet by mouth once daily Taking Ketoconazole 2 % Cream 1 application Externally twide daily Taking Liothyronine Sodium 5 MCG Tablet Take 2 tablets Orally Once a day Taking metFORMIN HCl 500 MG Tablet Take 1 tablet by mouth 4 times daily Taking oxyCODONE HCl 10 MG Tablet 1 Orally dx M54.12 qid prn Taking Pantoprazole Sodium 40 MG Tablet Delayed Release 1 tablet 1/2 to 1 hour before morning meal Orally Once a day Taking Pioglitazone HCl 30 MG Tablet Take 1 tablet by mouth once daily Taking Revlimid(Lenalidomide) 5 MG Capsule Oral DiscontinuedDoxycycline Monohydrate 100 MG Capsule 1 capsule Orally bid Nystatin 020668 UNIT/ML Suspension 5 mL SWISH & SWALLOW Four times a day Medication List reviewed and reconciled with the patientDiscontinued Doxycycline Monohydrate 100 MG Capsule 1 capsule Orally bid Discontinued Nystatin 045815 UNIT/ML Suspension 5 mL SWISH & SWALLOW Four times a day Medication List reviewed and reconciled with the patient * Allergies: E rythromycin: AllergyEntex: AllergySulfa Antibiotics: AllergyNeomycin: AllergyProtonix: anxiety - Side EffectsMetoclopramide: anxiety - Side Effectsno[Allergies Verified] Objective: * Vitals: W t:184.6lbs, Ht: 69 in, BP:136/60mm Hg, BMI:27.26Index, Wt-k.73 kg. * Examination: ???Abdomen Exam:: ???L:eft inguinal hernia. Assessment: * Assessment: 1.?Hernia - K46.9 (Primary)???2.?Edema - R60.9???3.?Eczema - L30.9??? Plan: * Treatment: Start Triamcinolone Acetonide Cream, 0.1 %, 1 application, Externally, bid, 60 grams, Refills 11. ?Imaging: CT ABD and PELV W CON? Referral To:Manny Rosales??General Surgery ?Reason: 2.?Edema? Notes: not CHF - no alvarado - lungs clear more likebly venoius insuficiency?? * Procedure Codes: * Preventive Medicine: ??Screenings/Counseling:?BMI ACTION PLAN?Above Normal BMI Follow-up?Dietary management education, guidance, and counseling See treatment section of progress note for complete details of management plan. ?FALL RISK SCREENING?Fall Risk Assessment:?No falls in the past year * * Sign off status: CompletedVisit Status:?CHK (Check Out) true * Provider: Arian Young ([facility])MD Date: 09/26/2024 Generated for Printing/Faxing/eTransmitting on:?08/05/2025 08:45 AM EST History and Physical Notes * HPI (History of Present Illness) CategorySub-CategoryDetailNotesCategory NotesGeneralLeft groin swelling - hernia getting worse Examination CategorySub-CategoryDetailNotesCategory NotesAbdomen Exam:L:eft inguinal hernia Consultation Request Notes Referral Date Referring Provider Referred Provider Not es 07/27/2025 Doron Young Michael
--- NOTE | 2025-08-05 | CT_ITS ---
The [address] [address] Patient Name: MATTHEW RAMESH MRN: [id number] date: 1945 Sex: M Assigned Patient Location: LAB Current Patient Location: LAB Accession/Order Number: [id number] Exam Date: 08/05/2025 09:55 Report Date: 08/05/2025 11:10 At the request of: HANNA MATHIAS MD Procedure: CT abdomen pelvis w con CT ABDOMEN AND PELVIS WITH CONTRAST COMPARISON: None CLINICAL DATA: Left groin pain Spiral images were obtained through the abdomen and pelvis following oral and 100 mL of Omnipaque [address] exam was performed using one or more following dose reduction techniques: Automated exposure control, adjustment of the mA and/or kV according to patient size, or use of iterative reconstruction technique. Limited cuts through the lung bases show minimal atelectasis. The very top of the hepatic dome is not included in its entirety. The liver is otherwise unremarkable. The gallbladder is surgically absent. The spleen, pancreas and adrenal glands show no acute findings. There is minor perinephric fibrofatty stranding. The renal nephrograms are symmetric. No hydronephrosis is identified. Renal cysts are visualized, larger on the right. There is atherosclerotic plaque at the aorta and iliac arteries. There are no enlarged lymph nodes or ascites. There is air and a small amount of fluid within the stomach. Small bowel loops are normal caliber. There is prior colectomy. There are multilevel postoperative and mild degenerative changes at the spine. Images through the pelvis show anastomosis at the sigmoid colon. A small amount of fluid is seen at the rectum. There is air within the bowel proximal to the anastomosis. The remaining small bowel loops are not distended. The prostate is enlarged and there is mass effect at the bladder trigone. The urinary bladder is poorly distended and the wall is thickened. There is a moderate to large left inguinal hernia containing mesenteric fat and a trace amount of fluid. No intrapelvic ascites is identified. CT/CT abdomen pelvis w con IMPRESSION: RENAL CYSTS. POSTOPERATIVE CHANGES OF SUBTOTAL COLECTOMY. PROSTATE HYPERTROPHY. UNDER DISTENDED URINARY BLADDER WITH WALL THICKENING. LEFT INGUINAL HERNIA CONTAINING MESENTERIC FAT AND A SMALL AMOUNT OF FLUID. Impression dictated by: Meredith Medrano M.D. 08/05/2025 11:10 AM Dictation Location: [place] [address] Electronically authenticated by: [id number] Y Date: 08/05/2025 11:10
--- OUTSIDE RECORDS SUMMARY | 2025-08-05 08:44 | XMS_ITS | Clinical Summary ---
Author Organization [employer] Address [id number] [address] [place] [address] Care Team Providers Care Hat Former Name Role Phone Jose Alberto Young MD Primary Care Provider [phone] Allergies Active AllergyReactionsCriticalityNoted DateCommentsAzithromycinOther (See Comments)Tvzuzt8807/12/2018 Other Reaction(s): Unknown Zzggvrpqdarf55/14/2017 Other Reaction(s): Unknown, Unknown NeomycinOther (See Comments)10/30/2024PseudoephedrineOther (See Comments) 10/30/2024Sulfa (Sulfonamide Antibiotics)Other (See Comments)10/09/2024 Kidney stones TobramycinGI Pakmpycorwe65/15/2020 made condition worse Medications MedicationSigDispense QuantityRefillsLast FilledStart DateEnd DateStatus metFORMIN (GLUCOPHAGE) 500 mg tablet Take 1 tablet (500 mg total) by mouth in the morning and 1 tablet (500 mg total) at noon and 1 tablet (500 mg total) in the evening and 1 tablet (500 mg total) before bedtime.Active glyBURIDE micronized (GLYNASE) 6 mg tablet Take 1 tablet (6 mg total) by mouth in the morning and 1 tablet (6 mg total) in the evening. Take with meals.Active liothyronine (CYTOMEL) 5 MCG tablet Take 2 tablets (10 mcg total) by mouth in the morning.07/27/2024ctive lenalidomide (REVLIMID) 5 mg chemo capsule Take 1 capsule by mouth Daily for 21 days then off for ctive dexAMETHasone (DECADRON) 4 mg tablet Take 2 tablets (8 mg total) by mouth once a week.01/28/2024ctive JARDIANCE 10 mg tablet tablet Take 1 tablet (10 mg total) by mouth in the morning.07/15/2024ctive pantoprazole (PROTONIX) 40 mg EC tablet Take 1 tablet (40 mg total) by mouth every morning before breakfast.Active oxyCODONE (ROXICODONE) 10 MG tablet immediate release tablet Take 1 tablet (10 mg total) by mouth 4 (four) times a day as needed.09/05/2024 Active Social History Tobacco UseTypesPacks/DayYears UsedDateSmoking Tobacco: NeverSmokeless Tobacco: Never Tobacco Cessation:Counseling Given: Not Answered Alcohol UseStandard Drinks/WeekCommentsNot Currently0 (1 standard drink = 0.6 oz pure alcohol)ChildcareAnswerDate KelxejmiDtismbdubDmnmyph38/12/2019Employment AnswerDate ObuigdglDzsqnyzpdzQsgkdjr93/12/2019Sex and Gender InformationValue Date RecordedSex Assigned at BirthNot on fileLegal RveOdwh1904/29/2015 11:41 AM EDTGender IdentityNot on fileSexual OrientationNot on file Last Filed Vital Signs Vital SignReadingTime TakenCommentsBlood Clkpwubi934/54011/20/2024 10:11 AM EST Ejdmi033811/20/2024 10:11 AM ATMNrvuvlrjgpp55.2 ??C (97.2 ??F)11/20/2024 7:46 AM ESTRespiratory Korp989211/20/2024 10:11 AM ESTOxygen Sgvsqxlcho17%11/20/2024 10:11 AM ESTInhaled Oxygen Concentration--Hkicyo28.6 kg (180 lb)11/20/2024 7:46 AM EST Avkjiz896.3 cm (5' 9 )11/20/2024 7:46 AM ESTBody Mass Index26.58011/20/2024 7:46 AM EST Plan of Treatment Health MaintenanceDue DateLast DoneCommentsDepression Hcwkvdsjp25/06/1959 DTaP,Tdap and Td Vaccines (1 - Tdap)1966Zoster (Shingles) Vaccine (1 of 2) 1997Fall Risk Nfvunooqd27/06/2012COVID-19 Vaccine ( season) , 07/07/2023, 06/08/2022, Additional history existsInfluenza Nlabhrz55/01/500195/, 07/05/2020, 07/19/2016Tobacco Fxwzwyafg17/27/2026 11/20/2024RSV ( or age 60+ yrs)Okfuznvxb34/12/2024, 07/07/2023 Medical Devices ImplantedTypeAreaManufacturerDevice IdentifierShelf Expiration DateModel / Serial / LotLens Iol [id number] [employer] Rpl [id number] - [id number] - [id number] Implanted:Qty: 1 on 10/30/2024 by Adelina Stapleton MD at [facility]: [employer]02/10/2028SY60WF.195 / [id number] / NALens Iol [id number] [employer] Rpl [id number] - [id number] - [id number] Implanted:Qty: 1 on 11/20/2024 by [facility]/12/2028SY60WF.215 / [id number] / N/A Insurance Advance Directives TypeDate RecordedPatient RepresentativeExplanationDurable Power of Hydroponics Worker 11/11/2024 8:31 AM Care Teams Team MemberRelationshipSpecialtyStart DateEnd Date Jose Alberto Young MD [address] [place] [address] [facility]
--- OUTSIDE RECORDS SUMMARY | 2025-08-05 08:45 | XMS_ITS ---
Author Organization [facility] Address [address] [place], [place] [address] Care Team Providers Care Fitness Centre Manager Name Role Phone Jose Alberto Young MD Primary Care Provider [phone] Active Problems ProblemNoted DateDiagnosed DateStage 3 chronic kidney disease, unspecified whether stage 3a or 3b CKD03/06/2023Elevated prostate specific antigen (PSA) 03/19/2020Outlet dysfunction xsfqvlswsarv04/27/2016Perirectal skin irritation 10/20/2015Anal esgdujor95/27/2016Type 2 diabetes mellitus without complication 10/20/2015Long term current use of systemic ltkestir05/27/2016Left inguinal vnuzqh2010/20/2015Former admlvr5210/20/2015Diabetes mofflypm59/02/2013H/O ulcerative oxfmnlk2012/24/2012Paget disease of bone12/24/2012Multiple sbfiurj9909/25/2012 Current Treatment and Therapy Plans AMB BONE MODIFYING AGENT: $$ - Q84D IF CRCL IS GREATER THAN 30 ML/MIN* Plan Start Date:02/26/2024 Plan Provider:Uriel Gunter MD Linked Problems Multiple myeloma not having achieved remission (HCC)Paget disease of bone Treatment MedicationsCurrent Day (Day 1, Cycle 3 - Planned for 05/12/2025)Next Day (Day 1, Cycle 4 - Planned for 08/04/2025)* * pamidronate iv infusion (AREDIA) - hypercalcemia * * pamidronate 30 mg in NaCl 0.9% 250 mL (AREDIA) * * pamidronate 30 mg in NaCl 0.9% 250 mL (AREDIA) Past Treatment and Therapy Plans Plan NameStart DateDiscontinue DateTreatment MedicationsDiscontinue ReasonPlan ProviderCyclesPAMIDRONATE 90 - Q90D1/2/35237/01/2024* pamidronate iv infusion (AREDIA) - hypercalcemia OtherMurphy, Uriel Byrd MD24 of 25 cycles started
--- OUTSIDE RECORDS SUMMARY | 2025-08-05 08:45 | XMS_ITS | Patient Health Record ---
Author Organization [facility] in [place] Address [address] [place] [address] Care Team Providers Care Mechanical Apprentice Name Role Phone Doron Young Primary Care Provider Allergies Allergen (clinical drug ingredient) Drug/Non Drug Allergy documented on EMR Reaction Allergy Type Onset Date Status EntexUnknownDrug AllergyActivepantoprazoleProtonixanxietyDrug AllergyActive metoclopramideMetoclopramideanxietyDrug AllergyActiveneomycinNeomycinUnknownDrug AllergyActiveSubstance with sulfonamide structure and antibacterial mechanism of action (substance)Sulfa AntibioticsUnknownDrug AllergyActiveerythromycin ErythromycinUnknownDrug AllergyActive Results Component Value Reference Range Notes XR ribs LT 2V Reviewed date:06/05/2025 01:02:09 PM Interpretation: Performing Lab: Notes/Report: Source Facility: [place] [address] [place] [address] XRay Report Signed Patient: ZACH MANUEL MR#: [id number] : 1945 Acct:[id number] Age/Sex: 80 / M ADM Date: 06/05/25 Loc: RAD Attending Dr: Hanna Young M.D. Ordering Physician: Hanna Young M.D. Date of Service: 06/05/25 Procedure(s): XR ribs LT 2V Accession Number(s): [id number] cc: Hanna Young M.D. [place] [address] Patient Name: ZACH MANUEL MRN: [id number] date: 1945 Sex: M Assigned Patient Location: [facility] Current Patient Location: [facility] Accession/Order Number: [id number] Exam Date: 06/05/2025 09:55 Report Date: 06/05/2025 10:48 At the request of: HANNA YOUNG MD Procedure: XR chest 2V CLINICAL DATA: Patient fell 3 days ago onto left side. Mid left lateral rib pain. PA AND LATERAL CHEST: COMPARISON: None There is no focal parenchymal consolidation, effusion or pneumothorax. The cardiac, hilar and mediastinal silhouettes are within normal limits. There is no vascular congestion. The bony structures are osteopenic. There is thoracolumbar levoscoliotic curvature. Partially imaged thoracolumbar fusion hardware is seen. The right T12 pedicle screw is fractured. The nery on the left is discontinuous at T12-L1. There is endplate spurring at the spine. XR/XR ribs LT 2V IMPRESSION: NO ACUTE CARDIOPULMONARY ABNORMALITY. LEFT RIBS - 3 views COMPARISON: None AP and both oblique views were obtained. There is osteopenia. No acute displaced fractures or bony destruction are noted. No soft tissue abnormalities are seen. IMPRESSION: NO ACUTE RIB INJURY. Impression dictated by: Meredith Medrano M.D. 06/05/2025 10:48 AM Dictation Location: [place] [address] Electronically authenticated by: [id number] Y Date: 06/05/2025 10:48 Dictated By: Meredith Mderano M.D. Signed By: 06/05/25 1051 DD/ 1048 TD/TT: Revenue Manager: PSA Reviewed date:04/09/2025 05:05:06 PM Interpretation: Performing Lab: Notes/Report: [facility] , Prostate Specific Antigen Dx 4.58 <=4.00 ng/mL Performing Lab:see noteML - [facility] LBCBC AUTO DIFF Reviewed date:04/26/2025 07:42:31 PM Interpretation: Performing Lab: Notes/Report: [facility] ,White Blood Count5.34.0-11.0 10 3/uLRed Blood Count4.054.70-6.10 10 6/uL Ycgwegyrxa63.314.0-18.0 g/cNKmwqrpduiw13.442.0-54.0 %Mean Corpuscular Volume 102.280.0-94.0 fLMean Corpuscular Hxrbgabpcu92.325.9-34.0 pgMean Corpuscular HGB Conc34.529.9-35.2 g/dLRed Cell Distribution Width13.611.0-15.0 %Platelet Count 353469-881 10 3/uLMean Platelet Hbatku32.89.5-13.5 fLNeutrophils Percent Auto 61.643.0-75.0 %Lymphocytes Percent Auto18.820.5-60.0 %Monocytes Percent Auto11.6 1.7-12.0 %Eosinophils Percent Auto6.30.9-7.0 %Basophils Percent Auto1.30.2-2.0 % Immature Granulocytes Pct Auto0.40.0-0.5 %Neutrophils Absolute Auto3.21.4-6.5 10 3/uLLymphocytes Absolute Auto1.01.2-3.8 10 3/uLMonocytes Absolute Auto0.60.3-0.8 10 3/uLEosinophils Absolute Auto0.30.0-0.7 10 3/uLBasophils Absolute Auto0.10.0- 0.1 10 3/uLImmature Granulocytes Abs Auto0.020.00-0.03 10 3/uLPerforming Lab:see noteML - [facility] LBXR chest 2V Reviewed date:06/05/2025 01:02:09 PM Interpretation: Performing Lab: Notes/Report: Source Facility: [facility]-[address] [place] [address] [place] [address] XRay Report Signed Patient: ZACH MANUEL MR#: [id number] : 1945 Acct:[id number] Age/Sex: 80 / M ADM Date: 06/05/25 Loc: RAD Attending Dr: Hanna Young M.D. Ordering Physician: Hanna Young M.D. Date of Service: 06/05/25 Procedure(s): XR chest 2V Accession Number(s): [id number] cc: Hanna Young M.D. [place] [address] Patient Name: ZACH MANUEL MRN: [id number] date: 1945 Sex: M Assigned Patient Location: [facility] Current Patient Location: [facility] Accession/Order Number: [id number] Exam Date: 06/05/2025 09:55 Report Date: 06/05/2025 10:48 At the request of: HANNA YOUNG MD Procedure: XR chest 2V CLINICAL DATA: Patient fell 3 days ago onto left side. Mid left lateral rib pain. PA AND LATERAL CHEST: COMPARISON: None There is no focal parenchymal consolidation, effusion or pneumothorax. The cardiac, hilar and mediastinal silhouettes are within normal limits. There is no vascular congestion. The bony structures are osteopenic. There is thoracolumbar levoscoliotic curvature. Partially imaged thoracolumbar fusion hardware is seen. The right T12 pedicle screw is fractured. The nery on the left is discontinuous at T12-L1. There is endplate spurring at the spine. XR/XR chest 2V IMPRESSION: NO ACUTE CARDIOPULMONARY ABNORMALITY. LEFT RIBS - 3 views COMPARISON: None AP and both oblique views were obtained. There is osteopenia. No acute displaced fractures or bony destruction are noted. No soft tissue abnormalities are seen. IMPRESSION: NO ACUTE RIB INJURY. Impression dictated by: Meredith Medrano M.D. 06/05/2025 10:48 AM Dictation Location: [place] [address] Electronically authenticated by: [id number] Y Date: 06/05/2025 10:48 Dictated By: Meredith Medrano M.D. Signed By: 06/05/25 1051 DD/ 1048 TD/TT: Revenue Manager:TSH Reviewed date:04/09/2025 05:05:06 PM Interpretation: Performing Lab: Notes/Report: [facility] ,Thyroid Stimulating Hormone2.8000.358-3.740 uIU/mLPerforming Lab:see noteML - [facility] LBT4 Reviewed date:04/09/2025 05:05:06 PM Interpretation: Performing Lab: Notes/Report: [facility] ,T4 Thyroxine4.404.50-12.10 ug/dLPerforming Lab:see noteML - [facility] LBPROF 14(COMP METB) Reviewed date:04/09/2025 05:05:06 PM Interpretation: Performing Lab: Notes/Report: [facility] ,Ufvpql784833-571 mmol/LPotassium4.13.5-5.1 mmol/XEhhdlppj69110-150 mmol/LCarbon Jcuamaf85.121.0-32.0 mmol/LAnion Gap9.3Nrmtpey9880-210 mg/dLBlood Urea Nitrogen 22.07.0-18.0 mg/dLCreatinine1.600.70-1.30 mg/dLEstimated GFR ( Kozhgsw90 >=60 mL/min/1.73m 2Estimated GFR (Non- Ame42>=60 mL/min/1.73m 2BUN Creatinine Ratio13.5Bxmwsbo7.98.5-10.1 mg/dLBilirubin Total0.90.2-1.0 mg/dL Aspartate Amino Thmmfkqksjk3260-77 U/LAlanine Xhgsuwbjevlcbpvw6824-75 U/L Alkaline Jvunthaxqqp2560-331 U/LTotal Protein6.26.4-8.2 g/dLAlbumin Level2.93.4- 5.0 g/dLGlobulin3.3Albumin Globulin Ratio0.9Performing Lab:see noteML - [facility] LBLIPID PROFILE Reviewed date:04/09/2025 05:05:06 PM Interpretation: Performing Lab: Notes/Report: [facility] ,Vwdxbflwfsnql065<=150 mg/bLHdzgjfscbna976<=200 mg/dLHDL Depfjepiqqp3801-64 mg/dL <40 mg/dl - HIGH CARDIOVASCULAR RISK > or =60 mg/dl - LOW CARDIOVASCULAR RISK LDL Cholesterol Jmhbyrilwd05.0 <100 mg/dl OPTIMAL 130-159 mg/dl BORDERLINE HIGH >190 mg/dl VERY HIGH 100-129 mg/dl NEAR OR ABOVE OPTIMAL 160-189 mg/dl HIGH VLDL CJJLKTSIVFZ76.0Chol HDL Ratio2.2 7.1 - 11.0 MODERATE RISK 4.4 - 7.1 AVERAGE RISK 3.3 - 4.4 LOW RISK >11.0 HIGH RISK Performing Lab:see noteML - [facility] LBFREE T3 Reviewed date:04/09/2025 05:05:06 PM Interpretation: Performing Lab: Notes/Report: [facility] ,Free T33.072.18-3.98 pg/mLPerforming Lab:see noteML - [facility] LB CBC AUTO DIFF Reviewed date:04/09/2025 05:05:06 PM Interpretation: Performing Lab: Notes/Report: [facility] ,White Blood Count3.84.0-11.0 10 3/uLRed Blood Count3.834.70-6.10 10 6/uL Vilshkputi44.614.0-18.0 g/yIZogyrbrrzh64.042.0-54.0 %Mean Corpuscular Volume 101.880.0-94.0 fLMean Corpuscular Pcnumsguxo30.525.9-34.0 pgMean Corpuscular HGB Conc34.929.9-35.2 g/dLRed Cell Distribution Width13.811.0-15.0 %Platelet Count 925839-997 10 3/uLMean Platelet Gnqqni70.19.5-13.5 fLNeutrophils Percent Auto 58.343.0-75.0 %Lymphocytes Percent Auto21.020.5-60.0 %Monocytes Percent Auto13.0 1.7-12.0 %Eosinophils Percent Auto5.30.9-7.0 %Basophils Percent Auto2.10.2-2.0 % Immature Granulocytes Pct Auto0.30.0-0.5 %Neutrophils Absolute Auto2.21.4-6.5 10 3/uLLymphocytes Absolute Auto0.81.2-3.8 10 3/uLMonocytes Absolute Auto0.50.3-0.8 10 3/uLEosinophils Absolute Auto0.20.0-0.7 10 3/uLBasophils Absolute Auto0.10.0- 0.1 10 3/uLImmature Granulocytes Abs Auto0.010.00-0.03 10 3/uLPerforming Lab:see noteML - [facility] LBPSA Total+% Free Reviewed date:04/17/2025 08:27:54 AM Interpretation: Performing Lab: Notes/Report: [facility] ,Prostate Specific Ag4.90.0-4.0 ng/mL should decrease and remain at undetectable levels after interpreted as absolute evidence of the presence or absence radical prostatectomy. The AUA defines biochemical of malignant disease. kits cannot be used interchangeably. Results cannot be [place] ECLIA methodology. According to the [employer], Serum PSA or greater. Values obtained with different assay methods or followed by a subsequent confirmatory PSA value 0.2 ng/mL recurrence as an initial PSA value 0.2 ng/mL or greater PSA, Free1.34N/A ng/mLRoche ECLIA methodology.% Free PSA27.3. % 10.01-15.00% 24% 35% recommendations regarding the use of [address] [place] [address] [id number]). Performed at: [facility] 20.01-25.00% 10% 20% 4 and 10 ng/mL, by patient age (Judah et al, SELENE 1998, The table below lists the probability of prostate cancer for of men. % Free PSA 50-64 yr 65-75 yr men with non-suspicious RADHA results and total PSA between Deicer Repairer Pneumatic: John Akers PhD, Phone: [phone] 0.00-10.00% 56% 55% Please note: Judha et al did not make specific >25.00% 5% 9% 15.01-20.00% 17% 23% percent free PSA for any other population Performing Lab:see noteLC - [facility] LBGLYCOHEMOGLOBIN A1C Reviewed date:04/09/2025 05:05:06 PM Interpretation: Performing Lab: Notes/Report: [facility] ,Glycohemoglobin A1C6.94.5-6.2 % > 7.0 ADA THERAPEUTIC TARGET < 7.0 ACTION SUGGESTED ADA RECOMMENDED LIMIT 4.0 - 6.0 Estimated Average Viuukws912Tecepkfohd Lab:see noteML - [facility] LB Reason For Referral Diagnosis 1 Hernia (K46.9) Referral Organization [facility] Referring Provider First Name Doron Referring Provider Last Name Hector Referring Provider Speciality Family Med efrem Referred Provider Manny Rosales Referred Provider Specialty General Surg anne Referral Priority Routine Medications Medication SIG (Take, Route, Frequency, Duration) Notes Start Date End Date Status oxyCODONE HCl 10 MG 1 Orally dx M54.12 qid prn; Duration: 30 days 5ActivemetFORMIN HCl 500 MGTake 1 tablet by mouth 4 times daily; Duration: ActiveglyBURIDE Micronized 6 MGTake 1 tablet by mouth twice daily; Duration: ActiveLiothyronine Sodium 5 MCGTake 2 tablets Orally Once a day; Duration: 90 daysActiveKetoconazole 2 %1 application Externally twide daily; Duration: 7 days06/08/2025tiveDexilant 60 MG1 capsule Orally Once a day; Duration: 30 daysActivehydrOXYzine HCl 25 MG1 tablet as needed Orally Once a day; Duration: 30 days06/08/2025tiveRevlimid 5 MGOral; Duration: 28 DaysActive Pioglitazone HCl 30 MGTake 1 tablet by mouth once daily; Duration: Active Jardiance 10 MGTake 1 tablet by mouth once daily; Duration: 90Active Triamcinolone Acetonide 0.1 %1 application Externally bid5Active Pantoprazole Sodium 40 MG1 tablet 1/2 to 1 hour before morning meal Orally Once a day; Duration: 30 days5Active Immunizations Vaccine Route Administration Date Status Comme nts Abrysvo Unknown 07/07/2023 Administered CtlgwofChmiwgi66/12/2024AdministeredFlu, Fluad (36442) 65 yrs+, single-dose syringe ()IM Woyzzaxzdktxc02/31/2023dministeredFlu, Fluarix (91845) 6 mos and older, single-dose syringe ()IM Nbauaoceipdpy31/13/2024 AdministeredTdap (Boostrix)Nxkvhyp46/31/2025Administered Social History Tobacco Use: Social History Observation Description Date Details (start date - stop date) Former Smoker 09/24/1964 - 09/24/1986 Tobacco Use/Smoking Question Answer Notes Patient is a former smoker When did you start smoking?09/24/1964When did you stop smoking?09/24/1986How long has it been since you last smoked?> 10 yearsAlcohol Screen (Audit-C) Question Answer Notes Did you have a drink containing alcohol in the p ast year? No Gwcjae9PojycjcojvvedwRqqjqeraKGFHP-J (Standard) Question Answer Notes Did you have a drink containing alcohol in the p ast year? 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)ActiveconfirmedProblemHyperlipidemia (80585631) Hyperlipidemia (E78.5)ActiveconfirmedProblemAsthma (797696592)Asthma (J45.909) ActiveconfirmedProblemGastroesophageal reflux disease (999550782)GERD (gastroesophageal reflux disease) (K21.9)ActiveconfirmedProblemCervical radiculopathy (27922172)Cervical radiculopathy (M54.12)ActiveconfirmedProblem Anxiety (88235393)Anxiety (F41.9)ActiveconfirmedProblemEdema (93166732)Edema (R60.9)ActiveconfirmedProblemPeripheral neuropathy (373471206)Peripheral neuropathy (G62.9)ActiveconfirmedProblemEczema (87565834)Eczema (L30.9)Active confirmedProblemArthralgia (68698304)Arthralgia (M25.50)ActiveconfirmedProblem Disorder of lumbar disc (291453255)Lumbar disc disease (M51.9)Activeconfirmed ProblemUlcerative colitis (21468202)Ulcerative colitis (K51.90)Activeconfirmed ProblemCellulitis (008103394)Cellulitis (L03.90)ActiveconfirmedProblemChest wall pain (543618694)Chest wall pain (R07.89)ActiveconfirmedProblemCrohns disease (04657022)Crohns disease (K50.90)ActiveconfirmedProblemAcquired spondylolisthesis (172333066)Acquired spondylolisthesis (M43.10)Activeconfirmed ProblemDegenerative joint disease (427489511)Degenerative joint disease (M19.90) ActiveconfirmedProblemLumbosacral spondylosis (960544127)Lumbosacral spondylosis (M47.817)ActiveconfirmedProblemHernia (680481728)Hernia (K46.9)Activeconfirmed ProblemRight bundle branch block (22417282)Bundle branch block, right (I45.10) ActiveconfirmedProblemHypercholesterolemia (62551166)Hypercholesterolemia (E78.00)ActiveconfirmedProblemElevated PSA (916267413)Elevated prostate specific antigen [PSA] (R97.20)ActiveconfirmedProblemAbnormal white blood cell (84040275) Abnormal white blood cell (D72.9)ActiveconfirmedProblemMyalgia (34185186)Myalgia (M79.10)ActiveconfirmedProblemType II diabetes mellitus without complication (007754127)Diabetes (E11.9)ActiveconfirmedProblemDiabetes mellitus (82246053) Diabetes mellitus (E11.9)ActiveconfirmedProblemChronic kidney disease stage 3B (disorder) (631899498)Chronic kidney disease, stage 3b (N18.32)Activeconfirmed Vital Signs Temperature 99.8 degrees Fahrenheit 08/15/2024 Blood pressure gfkcoossa89 mm Hg07/27/20253263Xldquf90 in07/27/2025lood pressure kmwinxcl046 mm Hg07/27/20251722Raxjoy299.6 lbs109/26/2024BMI27.26 kg/m207/27/2025 Encounters Encounter Location Date Provider Diagnosis [facility] [address] [place] [address] 06/08/2025 Doron Young [facility] [place] [address] 06/11/2025Doron [facility] [place] [address]/10/2025Doug HoyChest wall pain R07.89[facility] [place] [address]/07/2025Doug HoyChest wall pain R07.89[facility] [place] [address]/Doug HoyLumbar disc disease M51.9BN[facility] [facility] [place] [address]/Doug HoyAbnormal white blood cell D72.9 and Elevated PSA R97.20[facility] [address] [place] [address]/Doug [facility] [place] [address]/11/2024Doug [facility] [place] [facility] [place] [address]/ Doron HoyLumbar disc disease M51.9BNorth [facility] [place] [address]/08/2025Doug [facility] [address] [place] [address]/Doug HoyDiabetes mellitus E11.9BN[facility] [place] [address] 01/12/2025Doug HoyLumbar disc disease M51.9BN[facility] [facility] [facility] [place] [address]/Doug HoyLumbar disc disease M51.9BN[facility] [place] [address] 03/02/2025Doug [facility] [facility] [place] [address]/Doug HoyLumbar disc disease M51.9BN[facility] [facility] [facility] [place] [address]/Doug HoyDiabetes mellitus E11.9 ; Peripheral neuropathy G62.9 ; Anxiety F41.9 ; Hyperlipidemia E78.5 and Elevated PSA R97.20[facility] [facility] [place] [address]/4Doug HoyCellulitis L03.90[facility] [place] [address]/oug [facility] [place] [address]/11/2023 [facility] [place] [address]/oug HoyDiabetes mellitus E11.9[facility] [facility] [place] [address]/Doug HoyDiabetes mellitus E11.9[place] [address] [place] [address]/01/2025Doug [facility] [place] [address]/oug HoyCellulitis L03.90[facility] [place] [address]/oug HoyEncounter for immunization H78XmnoyzyProwers Medical Center[address] [place] [address]/Doug HoyLumbar disc disease M51.9BNorth [facility] [place] [address]/07/2025 Doron HoyChest wall pain R07.89 ; Monoclonal gammopathy D47.2 ; Asthma J45.909 and Diabetes mellitus E11.9[place] [address] [place] [address]/11/2024Doug HoyHernia K46.9 ; Edema R60.9 and Eczema L30.9 Assessments Encounter Date Diagnosis (ICD Code) Assessment Notes Treatment Notes Treatment Clinical Notes Section Notes 08/20/2024 Cellulitis (ICD-10 - L03.90) 09/05/2024iabetes mellitus (ICD-10 - E11.9)10/13/2024Diabetes mellitus (ICD-10 - E11.9)11/11/2024Diabetes mellitus (ICD-10 - E11.9)01/12/2025Lumbar disc disease (ICD-10 - M51.9)02/09/2025Lumbar disc disease (ICD-10 - M51.9)03/12/2025 Lumbar disc disease (ICD-10 - M51.9)04/08/2025Diabetes mellitus (ICD-10 - E11.9) 04/08/2025Peripheral neuropathy (ICD-10 - G62.9)08/15/2024ellulitis (ICD-10 - L03.90)09/05/2024Encounter for immunization (ICD-10 - Z23)12/12/2024Lumbar disc disease (ICD-10 - M51.9)06/04/2025hest wall pain (ICD-10 - R07.89)06/04/2025 Monoclonal gammopathy (ICD-10 - D47.2)04/09/2025Lumbar disc disease (ICD-10 - M51.9)04/09/2025bnormal white blood cell (ICD-10 - D72.9)04/09/2025Elevated PSA (ICD-10 - R97.20)05/07/2025Lumbar disc disease (ICD-10 - M51.9)07/03/2025hest wall pain (ICD-10 - R07.89)08/04/2025hest wall pain (ICD-10 - R07.89)07/27/2025 Hernia (ICD-10 - K46.9)07/27/2025Edema (ICD-10 - R60.9) not CHF - no alvarado - lungs clear more likebly venoius insuficiency 07/27/2025Eczema (ICD-10 - L30.9)06/04/2025sthma (ICD-10 - J45.909)04/08/2025 Anxiety (ICD-10 - F41.9)04/08/2025Hyperlipidemia (ICD-10 - E78.5)06/04/2025 Diabetes mellitus (ICD-10 - E11.9)04/08/2025Elevated PSA (ICD-10 - R97.20) Plan Of Treatment [...] W/AUTO DIFF 04/14/2024 CBC AUTO DIFF 04/09/2025 CT ABD and PELV W CON 07/27/2025 XR CHEST 2 V 06/04/2025 THYROID PANEL (T4/TSH/FREE T3) 3 THYROID PANEL (T4/TSH/FREE T3) 4 THYROID PANEL (T4/TSH/FREE T3) 5 Free PSA 04/15/2024 PSA Total+% Free 04/15/2024 PSA, SCREENING 04/14/2024 PSA, SCREENING 04/08/2025 Lipid Panel 04/08/2025 Lipid Panel 04/14/2024 Next Appt Details Provider Name:Doron Young, 10:45:00 AM, [address] [place], [address], Insurance Providers Payer Name Payer Address Payer Phone Subscriber Number Group Number Insured Name Patient Relationship to Insured Coverage Start Date Coverage End Date [place] [address] [place] [address] [id number] [place] Manuel - patient is the insuredFORE[facility] [address] [place], [place] [id number] [place] Varela - patient is the insured Medications Administered Medication Instructions Date of Administration Dosage Notes Ceftriaxone 1 gram g Medical (General) History Medical History History [...] Surgical History Surgery Date(Month/Year) APPENDECTOMY TONSILLECTOMY,OVER 12 YRSColectomyBladder removalInguinal Hreniorrhaphy, left 02/2010Spermatocele- /2010Reduction&internal fixation subtrochanteric Rt Femur01/2019Bilat Cataract extraction
--- OUTSIDE RECORDS SUMMARY | 2025-08-05 08:45 | XMS_ITS | Clinical Summary ---
Author Organization [facility] Address [address] [place] [address] Phone Care Team Providers Care Technical Specialist Cytology Name Role Phone Unavailable Primary Care Provider Unavailabl e Social History Tobacco UseTypesPacks/DayYears UsedDateSmoking Tobacco: Never AssessedSex and Gender InformationValueDate RecordedSex Assigned at BirthNot on fileLegal Sex Male08/18/2022 12:32 PM ESTGender IdentityNot on fileSexual OrientationNot on file Plan of Treatment Not on file
--- OUTSIDE RECORDS SUMMARY | 2025-08-05 08:45 | XMS_ITS | Clinical Summary ---
Author Organization [facility] Address [address] [place], [place] [address] Care Team Providers Care Manager Adult Name Role Phone Jose Alberto Young MD Primary Care Provider [phone] Allergies Active AllergyReactionsCriticalityNoted DateCommentsAzithromycinUnknownMedium 07/12/20184969SdqiatprnzzbKodhlcz23/14/2017Sulfa (Sulfonamide Antibiotics)Unknown 09/19/2012TobramycinOther: See Vkiizbvs27/15/2020 made condition worse Medications MedicationSigDispense QuantityRefillsLast FilledStart DateEnd DateStatus GLUCOPHAGE 500 MG TAB Take 1,000 mg by mouth daily with breakfast. Active MELOXICAM 15 mg tablet Take 15 mg by mouth as needed.07/30/2013ctive fenofibrate nanocrystallized (TRICOR) 145 mg tablet Take 145 mg by mouth once daily. 10/29/2017Active oxyCODONE IR (ROXICODONE) 10 mg tab 10 mg as needed.10/10/2017Active BREO ELLIPTA 100-25 mcg/dose inhaler 1 Inhalation once daily. 08/05/2018Active pantoprazole DR (PROTONIX) 40 mg tablet Take 40 mg by mouth once daily.Active liothyronine (CYTOMEL) 5 mcg tablet 08/12/2021ctive JARDIANCE 10 mg tablet Take 10 mg by mouth once daily.08/21/2022ctive glyBURIDE micronized (GLYNASE) 6 mg tablet 02/15/2023ctive dexAMETHasone (DECADRON) 4 mg tablet TAKE 2 TABLETS BY MOUTH ONCE A WEEK 24 tablet ctive lenalidomide (REVLIMID) 5 mg capsule Take 1 capsule by mouth daily for 21 days on and 7 days off. 21 capsule 08/05/2025 8:18 AM EST5Active lenalidomide (REVLIMID) 5 mg capsule Take 1 capsule by mouth daily for 21 days on and 7 days off. 21 capsule 06/23/2025 1:32 PM EDT51Discontinued Active Problems ProblemNoted DateDiagnosed DateStage 3 chronic kidney disease, unspecified whether stage 3a or 3b CKD03/06/2023Elevated prostate specific antigen (PSA) 03/19/2020Outlet dysfunction /27/2016Perirectal skin irritation 10/20/2015Anal zrvjnece38/27/2016Type 2 diabetes mellitus without complication 10/20/2015Long term current use of systemic qnioopli22/27/2016Left inguinal ydqlfg4010/20/2015Former tivbbo6110/20/2015Diabetes pwrabfsn69/02/2013H/O ulcerative evdocna1812/24/2012Paget disease of bone12/24/2012Multiple obrlbjy6009/25/2012 Encounters DateTypeDepartmentCare KplnMoeeqvefnyk31/28/2025[facility] [address] [place], [place] [id number] Deyvi Stoddard MD Refill Zvyyrcm0206/23/2025[facility] [address] [place] [address] Kleber Plaza MD Refill Juymxct5406/09/2025[facility] [address] [place] [address] Dre Negrete, ismael 06/01/2025[facility] [address] [place], [place] [id number] Kleber Plaza MD Refill Requestfrom Last 3 Months Immunizations ImmunizationAdministration DatesNext DueCOVID-19 original vaccine, age 12+ yr, monovalent (PFIZER-BIONTECH - PURPLE TOP)06/28/2021,11/11/2020,1COVID- 19 vaccine, unspecified egcfdnwpqra97/05/2021influenza (HD-IIV4) vaccine, age 65+ yr, high dose, quadrivalent, PF (FLUZONE HIGH-DOSE)06/16/2021influenza (aIIV3) vaccine, age 65+ yr, trivalent, PF (FLUAD)07/05/2020influenza vaccine, unspecified mcrhihplhje59/26/2016respiratory syncytial virus (RSV) vaccine, bivalent (ABRYSVO)07/07/2023 Family History Medical HistoryRelationCommentsCancerFatherprostateCancerMotherbladderRelation StatusCommentsFatherMother Social History Tobacco UseTypesPacks/DayYears UsedDateSmoking Tobacco: WvmraaIakhsykmkc636 09/24/1960 - 09/24/1990Smokeless Tobacco: Never Comments:quit 1996 Alcohol UseStandard Drinks/WeekCommentsNo0 (1 standard drink = 0.6 oz pure alcohol)PHQ-2AnswerDate RecordedPHQ-2 yhcqo557rea Deprivation Index AnswerDate RecordedNational Score (1-100), lower number is lower risk63 03/06/2023State Score (1-10), lower number is lower wcab1373Data from: https://www.neighborhoodatlas.[facility].edu/. Last address used for [address] [place] [address]/06/2023Sex and Gender InformationValueDate RecordedSex Assigned at BirthNot on fileLegal MopYnay43/02/2012 9:00 AM ESTGender Identity Not on fileSexual OrientationNot on file Last Filed Vital Signs Vital SignReadingTime TakenCommentsBlood Uayvhwjr191/7305 11:04 AM EDT Axhuu092102/17/2025 11:04 AM PNHBirilugwxus80.2 ??C (97.2 ??F)02/17/2025 11:04 AM EDTRespiratory Blzg053002/17/2025 11:04 AM EDTOxygen Cmgpidbugq44%02/17/2025 11:04 AM EDTInhaled Oxygen Concentration--Mowwhy04 kg (182 lb 15.7 oz)02/17/2025 11:04 AM VSZKvhhyp163.3 cm (5' 9.02 )02/17/2025 11:04 AM EDTBody Mass Index27.01 02/17/2025 11:04 AM EDT Plan of Treatment DateTypeDepartmentCare Team (Latest Contact Info)Qsxguvqulmq84/25/2025 10:15 AM ESTOffice Visit [facility] [address] [place] [address] 6 month follow up with lab08/18/2025 10:30 AM ESTVisit (SP) Office Hematology/Oncology [address] [place] [address] APRN.TECHNOLOGY TRAINER [address] [place] [address] 6 month follow up with lab08/18/2025 11:00 AM [facility] Hematology/Oncology [address] [place] [address] 6 [facility] MaintenanceDue DateLast AiucUyrnvjexMrM2I 2Diabetic Foot Exam1957Dilated Retinal Exam1957Urine Albumin:Creatinine Ratio1957nnual PCP Team Chronic Disease Visit 1965Anxiety Ljjojzazd86/06/1965Depression Scqsionmn12/06/1965Hepatitis C Dxnrmruwc02/06/1965LDL Ocfxndulvoc01/06/1965DTaP,Tdap,Td Vaccine (1 - Tdap) 1966Pneumococcal Vaccine: 50+ (1 of 2 - PCV)1966Shingrix Vaccine (1 of 2)1966Medicare Annual Wellness Visit03/24/2012dvance Directive Kkusvaqljj61/01/2025Covid-19 Vaccine ( season), 07/07/2023, 06/08/2022, Additional history existsInfluenza Vaccine (#1) 509/, 07/05/2020, 07/19/2016Hemoglobin/Efpzsgmkpq41/27/2026 02/17/2025, 05/27/2024, 02/26/2024, Additional history existsSerum Creatinine 6002/17/2025, 05/27/2024, 02/26/2024, Additional history existsRSV GqsiqveLdxdfpaol24/12/2024, 07/07/2023 Procedures Procedure NamePriorityDate/TimeAssociated DiagnosisCommentsCBC + DIFFRoutine 02/17/2025 11:02 AM EDT Multiple myeloma not having achieved remission (HCC) COMPREHENSIVE METABOLIC TWCPZOyqxpak80/27/2025 11:02 AM EDT Multiple myeloma not having achieved remission (HCC) from Last 3 Months or Most Recently Relevant to Health Maintenance Results * (ABNORMAL) COMPREHENSIVE METABOLIC PANEL (02/17/2025 11:02 AM EDT)Component ValueRef RangeTest MethodAnalysis TimePerformed AtPathologist Signature Protein, Total7.06.3 - 8.0 g/dL02/17/2025 2:54 PM [facility] LABComment:Corrected result: Previously reported as 6.6 g/dL on 02/17/2025 at 11:40 AM EDT.Albumin4.23.9 - 4.9 g/dL02/17/2025 2:54 PM EDT [facility] LABCalcium, Total8.58.5 - 10.2 mg/dL02/17/2025 2:54 PM [facility] LABComment:Corrected result: Previously reported as 8.3 mg/dL on 02/17/2025 at 11:40 AM EDT.Bilirubin, Total 1.7(H)0.2 - 1.3 mg/dL02/17/2025 2:54 PM [facility] Alkaline Yeymhuqknsw0296 - 113 U/L02/17/2025 2:54 PM [facility] LABComment:Corrected result: Previously reported as 99 U/L on 02/17/2025 at 11:40 AM EDT.JOL4471 - 40 U/L02/17/2025 2:54 PM [facility] LABComment:Corrected result: Previously reported as 15 U/L on 02/17/2025 at 11:40 AM EDT.NFR0769 - 54 U/L02/17/2025 2:54 PM [facility] LABComment:Corrected result: Previously reported as 12 U/L on 02/17/2025 at 11:40 AM EDT.Ptdlkro933(H)74 - 99 mg/dL02/17/2025 2:54 PM [facility] LABComment: The English Diabetes Association (ADA) provides guidance for cutoff values for fasting glucose andrandom glucose. The ADA defines fasting as no [...] Standards of Medical Care in Diabetes 2016, English Diabetes Association. Diabetes Care. 2016.39(Suppl 1). Corrected result: Previously reported as 189 mg/dL on 02/17/2025 at 11:40 AM EDT. FKX509 - 24 mg/dL02/17/2025 2:54 PM [facility] LABComment: Corrected result: Previously reported as 25 mg/dL on 02/17/2025 at 11:40 AM EDT. Creatinine1.60(H)0.73 - 1.22 mg/dL02/17/2025 2:54 PM [facility] DTLNwradz234858 - 144 mmol/L02/17/2025 2:54 PM [facility] LABPotassium4.63.7 - 5.1 mmol/L02/17/2025 2:54 PM [facility] YJONudcbrtc80675 - 107 mmol/L02/17/2025 2:54 PM [facility] CTQLN77307 - 30 mmol/L02/17/2025 2:54 PM [facility] LABAnion Gnt922 - 15 mmol/L02/17/2025 2:54 PM [facility] LABEstimated Glomerular Filtration Rate44(L)>=60 mL/min/1.73m 02/17/2025 2:54 PM [facility] LABComment:Estimated Glomerular Filtration Rate (eGFR) is calculated using the 2020 CKD-EPI creatinine equation. This equation utilizes serum creatinine, sex, and age as parameters. The creatinine assay has traceable calibration to isotope dilution- mass spectrometry. Refer to KDIGO guidelines for clinical interpretation. In patients with unstable renal function, e.g. those with acute kidney injury, the eGFRmay not accurately reflect actual GFR.Specimen (Source)Anatomical Location / LateralityCollection Method / VolumeCollection TimeReceived TimeBloodBLOOD SPECIMEN / UnknownVenipuncture / Betitvv4702/17/2025 11:02 AM EDT02/17/2025 11:02 AM EDT Narrative Authorizing ProviderResult TypeResult StatusBrross Gunter MDLABORATORY Final ResultPerforming OrganizationAddressCity/State/ZIP CodePhone Number [facility] [address] [place] [phone], * (ABNORMAL) COMPLETE BLOOD COUNT AND DIFFERENTIAL (02/17/2025 11:02 AM EDT) ComponentValueRef RangeTest MethodAnalysis TimePerformed AtPathologist SignatureWBC5.513.70 - 11.00 k/uL02/17/2025 11:15 AM [facility]TNORTHUT[facility] LABRBC4.424.20 - 6.00 m/uL02/17/2025 11:15 AM [facility]TN[facility]TH[facility] ECFVgkbnlmted70.413.0 - 17.0 g/dL02/17/2025 11:15 AM [facility]TNORTH[facility] GFAEbuezwiwwi72.239.0 - 51.0 %02/17/2025 11:15 AM [facility]TNORTH[facility] STAZZC251.080.0 - 100.0 fL 02/17/2025 11:15 AM EDTNORTHUTZ[facility] WMVWMC29.8(H)26.0 - 34.0 pg02/17/2025 11:15 AM EDTNORTH[facility] ZGXRMBJ71.8 30.5 - 36.0 g/dL02/17/2025 11:15 AM EDTNORTHUTZEL [facility] LAB RDW-CV14.511.5 - 15.0 %02/17/2025 11:15 AM [facility] LABPlatelet Mjzkm953925 - 400 k/02/17/2025 11:15 AM [facility] HJONBJ54.69.0 - 12.7 fL02/17/2025 11:15 AM EDT [facility] LABNeutrophils %56.6%02/17/2025 11:15 AM EDT [facility] LABAbs Neut3.121.45 - 7.50 k/uL02/17/2025 11:15 AM [facility] LABLymphocytes %19.8%02/17/2025 11:15 AM [facility] LABAbs Lymph1.091.00 - 4.00 k/uL 02/17/2025 11:15 AM [facility] LABMonocytes %14.5% 02/17/2025 11:15 AM [facility] LABAbs Mono0.80<0.87 k/02/17/2025 11:15 AM [facility] LABEosinophils % 6.9%02/17/2025 11:15 AM [facility] LABAbs Eosin0.38 <0.46 k/02/17/2025 11:15 AM [facility] Basophils %1.5%02/17/2025 11:15 AM [facility] LABAbs Baso0.08<0.11 k/uL02/17/2025 11:15 AM [facility] Immature Granulocytes %0.7%02/17/2025 11:15 AM [facility] LABAbs Immature Gran0.04<0.10 k/uL02/17/2025 11:15 AM [facility] LABNRBC0.0/100 WBC02/17/2025 11:15 AM [facility] LABAbsolute nRBC<0.01<0.01 k/uL02/17/2025 11:15 AM EDT [facility] LABDiff HjwxVpdr96/27/2025 11:15 AM EDT [facility] LABSpecimen (Source)Anatomical Location / LateralityCollection Method / VolumeCollection TimeReceived TimeBloodBLOOD SPECIMEN / UnknownVenipuncture / Lwemmxj4202/17/2025 11:02 AM EDT02/17/2025 11:02 AM EDT Narrative Authorizing ProviderResult TypeResult StatusBrross Gunter MDLABORATORY Final ResultPerforming OrganizationAddressCity/State/ZIP CodePhone Number [facility] [address] [place] [address] from Last 3 Months or Most Recently Relevant to Health Maintenance Insurance Care Teams Team MemberRelationshipSpecialtyStart DateEnd Jose Alberto Young MD [address] [place] [address] [facility]01/27/03
--- OUTSIDE RECORDS SUMMARY | 2025-08-05 08:45 | XMS_ITS | Clinical Summary ---
Author Organization [facility] Address [address] [place] [address] Care Team Providers Care Decision Support Manager Name Role Phone Unavailable Primary Care Provider Unavailabl e Social History Tobacco UseTypesPacks/DayYears UsedDateSmoking Tobacco: Never AssessedSex and Gender InformationValueDate RecordedSex Assigned at BirthNot on fileLegal Sex Male12/06/2022 8:12 PM EDTGender IdentityNot on fileSexual OrientationNot on file Last Filed Vital Signs Vital SignReadingTime TakenCommentsBlood Ixsvhthg931/8204 12:00 PM EDT Pulse--Temperature--Respiratory Rate--Oxygen Saturation--Inhaled Oxygen Concentration--Rtvxuo49.5 kg (195 lb)12/24/2018 12:00 PM WGIAvbtbt507.3 cm (5' 9 )12/24/2018 12:00 PM EDTBody Mass Index28.804 12:00 PM EDT Plan of Treatment Not on file Insurance
--- OUTSIDE RECORDS SUMMARY | 2025-08-05 08:50 | XMS_ITS | CCD ---
Author Organization [facility] Care Team Providers Care Information Systems Coordinator Name Role Phone HANNA MATHIAS Primary Care Unavailable SELF, REFERRED Referring Unavailable TRISH CEVALLOS Admitting Unavailable FRANCIS SAVAGE Attending Unavailable MS Procedure Practitioner Unavailab DANIELA Pennington Surgeon Unavailable MS Procedure Practitioner Unavailab FRANCIS Cruz Surgeon Unavailable Hanna Mathias MD Primary Care Provider [phone] Hanna Mathias MD Primary Care Provider [phone] Hanna Mathias MD Primary Care Provider [phone] HANNA MATHIAS Admitting Unavailable STEW, DR FERREIRA Attending Unavailable STEW, DR FERREIRA Primary Care Unavailable STEW, DR FERREIRA Consulting Unavailable STEW, DR FERREIRA Admitting Unavailable STEW, DR FERREIRA Attending Unavailable STEW, DR FERREIRA Primary Care Unavailable CARROLY, DR FERREIRA Admitting Unavailable STEW, DR FERREIRA Attending Unavailable DR HANNA MATHIAS Primary Care Unavailable DR HANNA MATHIAS Consulting Unavailable DR ROXANA LEWIS Admitting Unavailable DR ROXANA LEWIS Attending Unavailable STEW, DR FERREIRA Primary Care Unavailable LEWISDR SCHMIDT Consulting Unavailable LEWISDR SCHMIDT Admitting Unavailable LEWISDR SCHMIDT Attending Unavailable DR HANNA MATHIAS Primary Care [...] Unavailable Hanna Mathias MD Primary Care Provider [phone] Hanna Mathias MD Primary Care Provider [phone] Hanna Mathias MD Primary Care Provider [phone] Hanna Mathias MD Primary Care Provider [phone] Unavailable Primary Care Provider Unavailbecky e Hanna Mathias MD Primary Care Provider [phone] STEW HANNA M Referring Unavailable MARY ZARATE [...] HILARIO Attending Unavailable URIEL GUNTER Referring Unavailable Manny VELOZ Attending Unavailable Hoy, Hanna Referring Unavailable Allergies Allergy ClassificationReported Allergen(s)Allergy TypeDate of OnsetReaction(s) FacilityAminoglycosides (antibiotic) (1 source)TobramycinDrug Lftjuiy43-42-1049Twdbo: See CommentsChildren'S Hospital For Rehabilitation Macrolides (antibiotic) (2 sources)AzithromycinDrug Nhrxdjm74-36-8936IpbzqvwGvrvumtwq ClinicSulfonamides (antibiotic) (1 source)Sulfonamides (Antibiotic)Drug Mgerdpt92-55-4650YitefxvVfoxqxcly Clinic (4 sources)Azithromycin; Translations: [AZITHROMYCIN]Drug Fyeigzy64-15-7708Xgp [facility] Repository (3 sources)Sulfonamides (Antibiotic); Translations: [SULFA (SULFONAMIDE ANTIBIOTICS)]Drug allergy (disorder)92-26-3487FfnOhio [facility] (20 sources)AzithromycinDrug Bfvqdnv23-27-8534Ukssjhr, Other (See Comments) [facility] (20 sources)Erythromycin; Translations: [ERYTHROMYCIN]Drug Hpmddnk17-70-5790 UnknownChildren'S Hospital For Rehabilitation (20 sources)Sulfonamides (Antibiotic)Drug Cbtivka93-15-2473Lrnzati, Other (See Comments)[facility] (20 sources)Tobramycin; Translations: [TOBRAMYCIN]Drug Umqzuds88-61-4043Gjpdp: See Comments, GI DisturbanceChildren'S Hospital For Rehabilitation (1 source)ErythromycinDrug AllergyAv[facility] (3 sources)Neomycin; Translations: [NEOMYCIN]Drug Zyclqlv88-06-0279Dsjks (See Comments)[facility] (2 sources)Pseudoephedrine; Translations: [PSEUDOEPHEDRINE]Drug Allergy 59-44-4306Yldms (See Comments)[facility] (1 source)Pseudoephedrine; Translations: [Entex][facility] (1 source)Sulfonamides (Antibiotic); Translations: [sulfa drugs]Propensity to adverse reactions (disorder)[facility] Repository Medications Current Medications MedicationDrug Class(es)DatesSig (Normalized)Sig (Original)dexamethasone 4 mg oral tablet (20 sources)CorticosteroidStart: 10-17-2023 End: 47-00-0365mirj 2 tablets by mouth every weekdexAMETHasone (DECADRON) 4 mg tablet TAKE 2 TABLETS BY MOUTH ONCE A WEEK 24 tablet 3 01/28/2024 ActiveStart: 06-02-2021 End: 71-57-5903ffkp 2 tablets by mouth every weekdexAMETHasone (DECADRON) 4 mg tablet TAKE 2 TABLETS BY MOUTH ONCE A WEEK 24 tablet 3 10/16/2022 ActiveComment on above:TAKE 2 TABLETS BY MOUTH ONCE A WEEKempagliflozin 10 mg oral tablet (20 sources)Sodium-Glucose Cotransporter 2 InhibitorStart: 93-73-8630jbmv 1 tablet by mouth once dailyJARDIANCE 10 mg tablet Take 10 mg by mouth once daily. 08/21/2022 ActiveComment on above:Take 10 mg by mouth once daily.fenofibrate 145 mg oral tablet (20 sources)Peroxisome Proliferator Receptor alpha AgonistStart: 09-21-5119yygd 1 tablet by mouth once dailyfenofibrate nanocrystallized (TRICOR) 145 mg tablet Take 145 mg by mouth once daily. 10/29/2017 ActiveComment on above:Take 145 mg by mouth once daily. 30 actuat fluticasone furoate 0.1 mg/actuat / vilanterol 0.025 mg/actuat dry powder inhaler (20 sources)Corticosteroid, beta2-Adrenergic AgonistStart: 66-22-4211PFND ELLIPTA 100-25 mcg/dose inhaler 1 Inhalation once daily. 08/05/2018 Active Comment on above:1 Inhalation once daily. glyBURIDE 6 mg oral tablet (20 sources)SulfonylureaStart: 09-92-4720eaiQNBXVG micronized (GLYNASE) 6 mg tablet 02/15/2023 ActiveStart: 67-00-5986zfiOPSBLC micronized (GLYNASE) 3 mg tabletlenalidomide 5 mg oral capsule (20 sources)Thalidomide AnalogStart: 01-19-2025 End: 64-93-3523yajnwopluyzn (REVLIMID) 5 mg capsule Take 1 capsule by mouth daily for 21 days on and 7 days off. 21 capsule 02/27/2025 ActiveStart: 10-17-2023 End: 57-10-9779pbmrrgxicapi (REVLIMID) 5 mg capsule Take 1 capsule by mouth daily for 21 days on and 7 days off. 21 capsule 12/11/2024 1:22 PM EDT 12/11/2024 ActiveStart: 06-18-2023 End: 21-78-4554fwkpbpmjrhlw (REVLIMID) 5 mg capsule Take 1 capsule by mouth daily for 21 days on and 7 days off. 21 capsule 0 08/20/2023 ActiveStart: 75-83-3760dcjsrkbxnbhw (REVLIMID) 5 mg capsule Take 1 capsule by mouth daily for 21 days on and 7 days off. 21 capsule 0 05/11/2023 ActiveStart: 03-06-2023 End: 00-76-7430wyvduyrxqssd (REVLIMID) 5 mg capsule Take 1 capsule by mouth daily for 21 days on and 7 days off. 21 capsule 0 04/18/2023 ActiveStart: 07-20-2022 End: 77-21-3205grwcldxeultw (REVLIMID) 5 mg capsule Take 1 capsule by mouth daily for 21 days on and 7 days off. 21 capsule 0 02/05/2023 ActiveStart: 11-28-2021 End: 01-49-5879wsnzpugannjp (REVLIMID) 5 mg capsule Take 1 capsule by mouth daily for 21 days on and 7 days off. 21 capsule 0 06/17/2022 ActiveComment on above:Take 1 capsule by mouth daily for 21 days on and 7 days off.liothyronine sodium 0.005 mg oral tablet (20 sources)l-TriiodothyronineStart: 51-23-1077dfyh 2 tablets by mouth in the morningliothyronine (CYTOMEL) 5 MCG tablet Take 2 tablets (10 mcg total) by mouth in the morning. 07/27/2024 ActiveStart: 62-33-9602dkgocxypkoyr (CYTOMEL) 5 mcg tablet 08/12/2021 Activemeloxicam 15 mg oral tablet (20 sources)Nonsteroidal Anti-inflammatory DrugStart: 43-40-2459PHATLKJHX 15 mg tablet Take 15 mg by mouth as needed. 07/30/2013 ActiveComment on above:Take 15 mg by mouth as needed.metFORMIN hydrochloride 500 mg oral tablet (20 sources)BiguanideStart: 72-20-8786yxau 2 tablets by mouth once daily at breakfastGLUCOPHAGE 500 MG TAB Take 1,000 mg by mouth daily with breakfast. 0 10/14/2019 ActivemetFORMIN (GLUCOPHAGE) 500 mg tablet Take 1 tablet (500 mg total) by mouth in the morning and 1 tablet (500 mg total) at noon and 1 tablet (500 mg total) in the evening and 1 tablet (500 mg total) before bedtime. Active Comment on above:Take 1,000 mg by mouth daily with breakfast. oxyCODONE hydrochloride 10 mg oral tablet (20 sources)Opioid AgonistStart: 12-83-7997ygpJCURWM IR (ROXICODONE) 10 mg tab 10 mg as needed. 10/10/2017 ActiveComment on above:10 mg as needed.pantoprazole 40 mg delayed release oral tablet (20 sources)Proton Pump Inhibitortake 1 tablet by mouth once dailypantoprazole DR (PROTONIX) 40 mg tablet Take 40 mg by mouth once daily. ActiveComment on above:Take 40 mg by mouth once daily. Completed/Discontinued Medications MedicationDrug Class(es)DatesSig (Normalized)Sig (Original)dexamethasone 1 mg/ml / tobramycin 3 mg/ml ophthalmic suspension (20 sources)Aminoglycoside Antibacterial, CorticosteroidStart: 08-01-2019 End: 05-23-0593tyxn 2 drop(s) into the eye(s) four times dailytobramycin- dexamethasone (TOBRADEX) ophthalmic suspension INSTILL 2 DROPS INTO AFFECTED EYE 4 TIMESDAILY 0 08/01/2019 11/27/2023 Discontinued (Discontinued by another Health Care Provider)Comment on above:INSTILL 2 DROPS INTO AFFECTED EYE 4 TIMES DAILYdexlansoprazole 60 mg delayed release oral capsule (20 sources)Proton Pump InhibitorStart: 09-20-2021 End: 61-50-4484zdgj 1 capsule by mouth once dailyDEXILANT 60 mg CpDM Take 1 capsule by mouth once daily. 0 09/20/2021 05/09/2024 DiscontinuedComment on above:Take 1 capsule by mouth once daily.hydrocortisone 10 mg/ml / neomycin 3.5 mg/ml / polymyxin b 19808 unt/ml otic solution (20 sources)Aminoglycoside Antibacterial, Polymyxin-class Antibacterial, CorticosteroidStart: 05-29-2019 End: 86-20-9494qzybwwwc-polymyxin-hydrocortisone (CORTISPORIN) otic solution INSTILL 3 4 DROPS IN AFFECTED EAR FOUR TIMES DAILY 1 05/29/2019 11/27/2023 Discontinued (Discontinued by Patient)Comment on above:INSTILL 3 4 DROPS IN AFFECTED EAR FOUR TIMES DAILYlevothyroxine sodium 0.05 mg oral tablet (20 sources)l-ThyroxineStart: 12-31-2014 End: 99-98-6196asjz 1 tablet by mouth once dailylevothyroxine (SYNTHROID) 50 mcg tablet Take 50 mcg by mouth once daily. 0 12/31/2014 05/09/2024 Discontinued Comment on above:Take 50 mcg by mouth once daily. metroNIDAZOLE 500 mg oral tablet (20 sources)Nitroimidazole AntimicrobialStart: 08-15-2021 End: 63-43-6383tobuiSDKHXNXH (FLAGYL) 500 mg tabletmoxifloxacin (1 source)Quinolone AntimicrobialStart: 10-30-2024 End: 77-10-5572uzzcqpyddskw HCl (MOXIFLOXACIN 0.5%-PREDNISOLONE 1%-BROMFENAC 0.09% DROPS - BUDERER ) Administer 1 drop to the right eye in the morning and 1 drop before bedtime. Do all this for 30 days. One drop twice a day to operative eye for one week, then daily for three weeks.. 10/30/2024 11/20/2024 Discontin uedpamidronate 30 mg in NaCl 0.9% 250 mL (AREDIA) (2 sources)Start: 02-17-2025 End: 92-73-057568 mg, INTRAVENOUS, at 125 mL/hr, Administer over 2 Hours, ONCE, 1 dose, On Sun02/17/25 at 1200, APPROXIMATE TOTAL VOLUME____mL - 24 HOUR EXP: 02/18/2025 1210 RT Hazardous Potential Reproductive RiskDrug: Use appropriate PPE.Start: 02-26-2024 End: 84-01-8087dmjykbwwgbt 30 mg in NaCl 0.9% 250 mL (AREDIA)pioglitazone 30 mg oral tablet (20 sources)Peroxisome Proliferator Receptor alpha Agonist, Peroxisome Proliferator Receptor gamma Agonist, ThiazolidinedioneStart: 08-03-2021 End: 03-60-2599kwjunmxrgyxm (ACTOS) 30 mg tablet End: 30-51-3398mmub 1 tablet by mouth in the morningpioglitazone (ACTOS) 15 mg tablet Take 1 tablet (15 mg total) by mouth in the morning. 11/20/2024 Di scontinuedvancomycin 250 mg oral capsule (20 sources)Glycopeptide AntibacterialStart: 08-15-2021 End: 50-66-6109spozpzmpyz (VANCOCIN) 250 mg capsule 0 08/15/2021 11/27/2023 Discontinued (Discontinued by another Health Care Provider) Problems Active Problems Problem ClassificationProblemDateDocumented DateEpisodic/ChronicCataract (1 source)CataractOnset: 36-92-3421Ntashna kidney disease (20 sources)Chronic kidney disease stage 3; Translations: [Stage 3 chronic kidney disease, unspecified whether stage 3a or 3b CKD]Onset: 03-06-2023 72-94-2233VrsuuakIwhdxrmc mellitus without complication (20 sources)Diabetes mellitus; Translations: [Type 2 diabetes mellitus without complications]Onset: 154594-81-8595FxyxoxkKiiedanrh of lipid metabolism (1 source)Hyperlipidemia, unspecified; Translations: [HYPERLIPIDEMIA UNSPECIFIED]Onset: 57-09-9295KbabjdkEsmukyib myeloma (20 sources)Multiple myeloma; Translations: [Multiple myeloma not having achieved remission]Onset: 656857-61-3208BjxeufhZzaha bone disease and musculoskeletal deformities (20 sources)Osteitis deformans; 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]Onset: 316644-37-1707SythpnjByhqc bone disease and musculoskeletal deformities (1 source)Osteitis deformans of unspecified bone; 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]Onset: 60-93-7584Sakxfnn Past or Other Problems Problem ClassificationProblemDateDocumented DateEpisodic/ChronicAbdominal hernia (20 sources)Left inguinal hernia ; Translations: [Unilateral inguinal hernia, without obstruction or gangrene, not specified as recurrent]Onset: 10-20-2015 78-50-8506HltdhqhoDgip and rectal conditions (20 sources)Perineal irritation; Translations: [Other specified diseases of anus and rectum]Onset: 544969-45-4564HrcndgcaOnpchjpc mellitus without complication (1 source)Other abnormal glucose; Translations: [OTHER ABNORMAL GLUCOSE]Onset: 60-19-9158VaesdpokIckdyvgcthzxgrzq hemorrhage (20 sources)Hemorrhage of rectum and anus; Translations: [Hemorrhage of anus and rectum]Onset: 808439-43-5521PajtxshbBizurey and fatigue (5 sources)Other fatigue; Translations: [OTHER FATIGUE]Onset: 27-51-4127Edvyywgd Other aftercare (20 sources)Long-term current use of systemic steroid; 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]Onset: 789883-54-6763RzidjahzLcscw connective tissue disease (1 source)Abnormal posture; Translations: [ABNORMAL POSTURE]Onset: 03-28-2022 EpisodicOther connective tissue disease (1 source)Pain in right hand; Translations: [PAIN IN RIGHT HAND]Onset: 45-16-5226AryvzfkqViwun gastrointestinal disorders (20 sources)H/O: ulcerative colitis; Translations: [Personal history of other diseases of the digestive system]Onset: 140101-38-5907VhlxgyzfXuwim gastrointestinal disorders (20 sources)Constipation; Translations: [Outlet dysfunction constipation]Onset: 951168-82-6641ConjzzfnJhgsl screening for suspected conditions (not mental disorders or infectious disease) (20 sources)Raised prostate specific antigen; Translations: [Elevated prostate specific antigen [PSA]]Onset: 307581-97-6437MzcmjqiuRgllobvn codes; unclassified (4 sources)Acquired absence of other specified parts of digestive tract; Translations: [ACQ ABSENCE OTH PART DIGESTV TRACT]Onset: 98-60-1646Chqqlbiq Screening and history of mental health and substance abuse codes (20 sources)Ex-smoker; Translations: [Personal history of nicotine dependence] Onset: 389370-70-9659DxqlwajpJwbilapwbmc; intervertebral disc disorders; other back problems (4 sources)Radiculopathy, cervical region; Translations: [RADICULOPATHY CERVICAL REGION]Onset: 57-18-4597VnnoslnsEtcepoinwegr (1 source)Preprocedural examination isve95-83-9391 Results Test NameValueInterpretationReference RangeFacilityCBC W Auto Differential panel (Bld)on 17-58-1330Todvscbda (Bld) [#/Vol]0.08 10*3/uLNINFChildren'S Hospital For Rehabilitation Basophils/100 WBC (Bld)1.5 %[facility] RehabilitationDifferential cell count method Nom (Bld)AutoCleveland ClinicEosinophils (Bld) [#/Vol]0.38 10*3/uLNINFCleProMedica Flower HospitalEosinophils/100 WBC (Bld)6.9 %[facility] For RehabilitationErythrocyte distribution width (RBC) [Ratio]14.5 %11.5 - 15.0 %[facility] For RehabilitationHematocrit (Bld) [Volume fraction]44.2 %39.0 - 51.0 %[facility] For RehabilitationHemoglobin (Bld) [Mass/Vol]15.4 g/dL 13.0 - 17.0 g/dLChildren'S Hospital For RehabilitationImmature granulocytes (Bld) [#/Vol]0.04 10*3/uL NINFCleveland ClinicImmature granulocytes/100 WBC (Bld)0.7 %[facility] Interpretation and review of laboratory resultsAbnormalCOhioHealth Doctors Hospital Lymphocytes (Bld) [#/Vol]1.09 10*3/uLChildren'S Hospital For RehabilitationLymphocytes/100 WBC (Bld) 19.8 %[facility] CenterH (RBC) [Entitic mass]34.8 ewHlhv79.0 - 34.0 pgCKettering HealthHC (RBC) [Mass/Vol]34.8 g/dL30.5 - 36.0 g/dLSamaritan North Health CenterV (RBC) [Entitic vol]100 fL80.0 - 100.0 fLCOhioHealth Doctors HospitalMonocytes (Bld) [#/Vol]0.8 10*3/NINFChildren'S Hospital For RehabilitationMonocytes/100 WBC (Bld)14.5 %[facility] Neutrophils (Bld) [#/Vol]3.12 10*3/uLChildren'S Hospital For RehabilitationNeutrophils/100 WBC (Bld) 56.6 %[facility] RehabilitationNucleated RBC (Bld) [#/Vol]NINFCOhioHealth Doctors HospitalNucleated RBC/100 WBC (Bld) [Ratio]0 %/100 WBCChildren'S Hospital For RehabilitationPlatelet mean volume (Bld) [Entitic vol]10.6 fL9.0 - 12.7 fLCOhioHealth Doctors HospitalPlatelets (Bld) [#/Vol]217 10*3/uLChildren'S Hospital For RehabilitationRBC (Bld) [#/Vol]4.42 10*6/uL4.20 - 6.00 m/[facility] HospitalWBC (Bld) [#/Vol]5.51 10*3/[facility] ClinicBasophils (Bld) [#/Vol]0.08 10*3/Normal<0.11CBrecksville VA / [facility]ille [facility] on above: Order Comment: Specimen Type: BLOOD SPECIMENOrdering Facility: [facility] Address:[address] [place] [address]Mccibsbwn By: #### 60656- 8 ####[facility] LABCLIA [id number] [place], [place] [address]Segljncui/100 WBC (Bld)1.5 %NormalHarrison Community Hospital on above:Order Comment: Specimen Type: BLOOD SPECIMENOrdering Facility: [facility] Address:[address] [place], [place] [address]Performed By: #### 11291-8 ####[facility] LABIA [id number] [place], [place] [address]Uyesmjizdxrj cell count method Nom (Bld)AutoNormalClevelKeenan Private Hospital on above:Order Comment: Specimen Type: BLOOD SPECIMENOrdering Facility: [facility] Address:[address] [place], [place] [address]Performed By: #### 19333-4 ####[facility] LABIA [id number] [place], [place] [address]Tlyilxmtbjh (Bld) [#/Vol]0.38 10*3/uLNormal<0.46[facility] on above:Order Comment: Specimen Type: BLOOD SPECIMENOrdering Facility: [facility] Address:[address] [place], [place] [address]Performed By: #### 25464-9 ####[facility] [id number] [place], [place] [address]Lulxuznrivj/100 WBC (Bld)6.9 %NormalHarrison Community Hospital on above:Order Comment: Specimen Type: BLOOD SPECIMENOrdering Facility: [facility] Address:[address] [place], [place] [address]Performed By: #### 91590-3 ####[facility] LABIA [id number] [place], [place] [address]Kurwfjkduhz distribution width (RBC) [Ratio]14.5 %Normal 11.5-15.0[facility] on above:Order Comment: Specimen Type: BLOOD SPECIMENOrdering Facility: [facility] Address:[address] [place], [place] [address]Performed By: #### 91638-4 ####[facility] LABIA [id number] [place] [address] Hematocrit (Bld) [Volume fraction]44.2 %Wthepx88.0-51.0[facility] on above:Order Comment: Specimen Type: BLOOD SPECIMENOrdering Facility: [facility] Address:[address] [place], [place] [address]Performed By: #### 57714-9 ####[facility] LABIA [id number] [place], [place] [address]Roavhxhwvc (Bld) [Mass/Vol]15.4 g/vUWvpnel03.0-17.0[facility] on above:Order Comment: Specimen Type: BLOOD SPECIMENOrdering Facility: [facility] Address:[address] [place], [place] [address]Performed By: #### 93950-2 ####[facility] LABIA [id number] [place], [place] [address]Gusoygcg granulocytes (Bld) [#/Vol]0.04 10*3/uLNormal <0.10[facility] on above:Order Comment: Specimen Type: BLOOD SPECIMENOrdering Facility: [facility] Address:[address] [place], [place] [address]Performed By: #### 48842-9 ####[facility] LABIA [id number] [place], [place] [address]Qqdunrvs granulocytes/100 WBC (Bld)0.7 %NormalHarrison Community Hospital on above: Order Comment: Specimen Type: BLOOD SPECIMENOrdering Facility: [facility] Address:[address] [place], [place] [address]Performed By: #### 04096- 8 ####[facility] LABIA [id number] [place], [place] [address]Zcssvnwbaby (Bld) [#/Vol]1.09 10*3/uLNormal1.00-4.00 [facility] on above:Order Comment: Specimen Type: BLOOD SPECIMENOrdering Facility: [facility] Address:[address] [place], [place] [address]Performed By: #### 46375-7 ####[facility] LABIA [id number] [place], [place] [address]Ydpgnmestxb/100 WBC (Bld)19.8 %NormalHarrison Community Hospital on above:Order Comment: Specimen Type: BLOOD SPECIMENOrdering Facility: [facility] Address:[address] [place], [place] [address]Performed By: #### 94821-4 ####[facility] LABCLIA [id number] [place], [place] [address]KFX (RBC) [Entitic mass]34.8 ylOzeq42.0-34.0[facility] on above:Order Comment: Specimen Type: BLOOD SPECIMENOrdering Facility: [facility] Address:[address] [place], [place] [address]Performed By: #### 07352-3 ####[facility] LABIA [id number] [place], [place] [address]GFOL (RBC) [Mass/Vol]34.8 g/jHHhcllo66.5-36.0[facility] on above: Order Comment: Specimen Type: BLOOD SPECIMENOrdering Facility: [facility] Address:[address] [place], [place] [address]Performed By: #### 46259- 8 ####[facility] LABCLIA [id number] [place], [place] [address]SOB (RBC) [Entitic vol]100.0 oVBxnyqa26.0-100.0[facility] on above:Order Comment: Specimen Type: BLOOD SPECIMENOrdering Facility: [facility] Address:[address] [place], [place] [address]Performed By: #### 40605-4 ####[facility] LABIA [id number] [place], [place] [address]Yatsmnxlq (Bld) [#/Vol]0.80 10*3/uLNormal<0.87[facility] on above:Order Comment: Specimen Type: BLOOD SPECIMENOrdering Facility: [facility] Address:[address] [place], [place] [address]Performed By: #### 18946- 8 ####[facility] LABCLIA [id number] [place], [place] [address]Nejbwihdj/100 WBC (Bld)14.5 %NormalHarrison Community Hospital on above:Order Comment: Specimen Type: BLOOD SPECIMENOrdering Facility: [facility] Address:[address] [place], [place] [address]Performed By: #### 56857-5 ####[facility] LABCLIA [id number] [place], [place] [address]Gatlzxbtmpx (Bld) [#/Vol]3.12 10*3/uLNormal1.45-7.50[facility] on above:Order Comment: Specimen Type: BLOOD SPECIMENOrdering Facility: [facility] Address:[address] [place], [place] [address]Performed By: #### 62306-3 ####[facility] LABCLIA [id number] [place], [place] [address]Nzqukcuspup/100 WBC (Bld)56.6 %NormalHarrison Community Hospital on above:Order Comment: Specimen Type: BLOOD SPECIMENOrdering Facility: [facility] Address:[address] [place], [place] [address]Performed By: #### 63963-1 ####[facility] LABIA [id number] [place], [place] [address]Xhpuxnhxb RBC (Bld) [#/Vol] 10*3/uLNormal<0.01[facility] on above:Order Comment: Specimen Type: BLOOD SPECIMENOrdering Facility: [facility] Address:[address] [place], [place] [address]Performed By: #### 50101-2 ####[facility] LABCLIA [id number] [place], [place] [address]Jfgjkujnn RBC/100 WBC (Bld) [Ratio]0.0 /100 WBCNormal [facility] on above:Order Comment: Specimen Type: BLOOD SPECIMENOrdering Facility: [facility] Address:[address] [place], [place] [address]Performed By: #### 59166-3 ####[facility] LABCLIA [id number] [place], [place] [address]Eriatqzw mean volume (Bld) [Entitic vol]10.6 fLNormal9.0-12.7CBrecksville [facility] on above:Order Comment: Specimen Type: BLOOD SPECIMENOrdering Facility: [facility] Address:[address] [place] [address] Performed By: #### 07108-2 ####[facility] LABCLIA [id number] [place], [place] [address]Ykuixofxt (Bld) [#/Vol]217 10*3/gNCsqpfy742-518FcqpbxoxnHarrison Community Hospital on above:Order Comment: Specimen Type: BLOOD SPECIMENOrdering Facility: [facility] Address:[address] [place], [place] [address]Performed By: #### 01219-7 ####[facility] LABCLIA [id number] [place], [place] [address]WKW (Bld) [#/Vol]4.42 10*6/uLNormal4.20-6.00[facility] on above:Order Comment: Specimen Type: BLOOD SPECIMENOrdering Facility: [facility] Address:[address] [place], [place] [address]Performed By: #### 05421-6 ####[facility] LABIA [id number] [place], [place] [address]BQG (Bld) [#/Vol]5.51 10*3/uLNormal3.70-1100[facility] on above: Order Comment: Specimen Type: BLOOD SPECIMENOrdering Facility: [facility] Address:[address] [place], [place] [address]Ogkwfsfam By: #### 52907- 8 ####[facility] LABCLIA [id number] [place], [place] [address]XPSSGEif 25-17-6446PBMRFMMpuon (SP) Office (HEMASA) ZACH MANUEL ([id number]) 1945 M Date Time Provider Department 02/17/25 [...] mellitus (HCC) Hyperlipidemia 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 Comprehensive [facility] 2000 panelon [id number] [Mass/Vol]4.2 g/dL3.9 - 4.9 g/dLLee ClinicALP [Catalytic activity/Vol]95 U/L38 - 113 U/LCleveland ClinicComment on above:Corrected result: Previously reported as 99 U/L on 02/17/2025 at 11:40 AM EDT.ALT [Catalytic activity/Vol]15 U/L10 - 54 U/LCleveland ClinicComment on above:Corrected result: Previously reported as 12 U/L on 02/17/2025 at 11:40 AM EDT.Anion gap [Moles/Vol]11 mmol/L8 - 15 mmol/LCleveland ClinicAST [Catalytic activity/Vol]22 U/L14 - 40 U/LCleveland ClinicComment on above:Corrected result: Previously reported as 15 U/L on 02/17/2025 at 11:40 AM EDT.Bilirubin [Mass/Vol]1.7 mg/dLHigh0.2 - 1.3 mg/dLLee ClinicCalcium [Mass/Vol]8.5 mg/dL8.5 - 10.2 mg/dLChildren'S Hospital For RehabilitationComment on above:Corrected result: Previously reported as 8.3 mg/dL on 02/17/2025 at 11:40 AM EDT.Chloride [Moles/Vol]101 mmol/L98 - 107 mmol/LCleveland ClinicCO2 [Moles/Vol]26 mmol/L22 - 30 mmol/LCleveland ClinicCreatinine [Mass/Vol]1.6 mg/dLHigh0.73 - 1.22 mg/dL [facility] For RehabilitationGFR/1.73 sq M.predicted among non-blacks MDRD (S/P/Bld) [Vol rate/Area]44 mL/min/{1.73_m2}Low- PINFCleveland ClinicComment on above:Estimated Glomerular Filtration Rate (eGFR) is calculated using the 2020 CKD-EPI creatinine equation. This equation utilizes serum creatinine, sex, and age as parameters. The creatinine assay has traceable calibration to isotope dilution- mass spectrometry. Refer to KDIGO guidelines for clinical interpretation. In patients with unstable renal function, e.g. those with acute kidney injury, the eGFRmay not accurately reflect actual GFR.Glucose [Mass/Vol]185 mg/xNBshz90 - 99 mg/dLChildren'S Hospital For RehabilitationComment on above:The [place] Diabetes Association (ADA) provides guidance for cutoff values for fasting glucose andrandom glucose. The ADA defines fasting as no caloric intake for at least 8 hours. Fasting plasma gl ucose results between 100 to 125 mg/dL indicate [...] Standards of Medical Care in Diabetes 2016, [place] Diabetes Association. Diabetes Care. 2016.39(Suppl 1). Corrected result: Previously reported as 189 mg/dL on 02/17/2025 at 11:40 AM EDT. Interpretation and review of laboratory resultsAbnormalCleveland ClinicPotassium [Moles/Vol]4.6 mmol/L3.7 - 5.1 mmol/LCleveland ClinicProtein [Mass/Vol]7 g/dL 6.3 - 8.0 g/dLChildren'S Hospital For RehabilitationComment on above:Corrected result: Previously reported as 6.6 g/dL on 02/17/2025 at 11:40 AM EDT.Sodium [Moles/Vol]138 mmol/L 136 - 144 mmol/LCleveland ClinicUrea nitrogen [Mass/Vol]23 mg/dL9 - 24 mg/dL [facility] Hospital For RehabilitationComment on above:Corrected result: Previously reported as 25 mg/dL on 02/17/2025 at 11:40 AM EDT.Lee ClinicAlbumin [Mass/Vol]4.2 g/dL Normal3.9-4.9ClevelCritical access hospitalComment on above:Order Comment: Specimen Type: BLOOD SPECIMENOrdering Facility: [facility] Address:[address] [place], [place] [address]Performed By: #### 18826-2 ####[facility] LABIA [id number] [place] [address] [place] AMERICAALP [Catalytic activity/Vol]95 U/ZTfmibh52-221CmoezctouHarrison Community Hospital on above:Order Comment: Specimen Type: BLOOD SPECIMENOrdering Facility: [facility] Address:[address] [place], [place] [address]Result Comment: Corrected result: Previously reported as 99 U/L on 02/17/2025 at 11:40 AM EDT.Performed By: #### 97878-3 ####[facility] LABIA [id number] [place] [address] [place] AMERICAALT [Catalytic activity/Vol]15 U/JPuhxhg19-90CoelamlfpHarrison Community Hospital on above:Order Comment: Specimen Type: BLOOD SPECIMENOrdering Facility: [facility] Address:[address] [place], [place] [address]Result Comment: Corrected result: Previously reported as 12 U/L on 02/17/2025 at 11:40 AM EDT.Performed By: #### 52416-4 ####[facility] LABCLIA [id number] [place] [address] [place] AMERICAAnion gap [Moles/Vol]11 mmol/LNormal8-15[facility] on above:Order Comment: Specimen Type: BLOOD SPECIMENOrdering Facility: [facility] Address:[address] [place], [place] [address]Performed By: #### 78154-1 ####[facility] LABIA [id number] [place] [address] [place] AST [Catalytic activity/Vol]22 U/NOlbeaj42-03OdthrmbhpHarrison Community Hospital on above:Order Comment: Specimen Type: BLOOD SPECIMENOrdering Facility: [facility] Address:[address] [place], [place] [address]Result Comment: Corrected result: Previously reported as 15 U/L on 02/17/2025 at 11:40 AM EDT.Performed By: #### 11575-2 ####[facility] LABIA [id number] [place] [address] [place] Bilirubin [Mass/Vol]1.7 mg/dLHigh0.2-1.3CBrecksville [facility] / [facility] on above:Order Comment: Specimen Type: BLOOD SPECIMENOrdering Facility: [facility] Address:[address] [place], [place] [address]Performed By: #### 17427-3 ####[facility] LABIA [id number] [place] [address] [place] AMERICACalcium [Mass/Vol]8.5 mg/dLNormal8.5-10.2ClevelKeenan Private Hospital on above:Order Comment: Specimen Type: BLOOD SPECIMENOrdering Facility: [facility] Address:[address] [place], [place] [address]Result Comment: Corrected result: Previously reported as 8.3 mg/dL on 02/17/2025 at 11:40 AM EDT.Performed By: #### 77708-9 ####[facility] LABCLIA [id number] [place] [id number] [place] AMERICAChloride [Moles/Vol] 101 mmol/KJsmukf94-987TyzrhwhzkHarrison Community Hospital on above:Order Comment: Specimen Type: BLOOD SPECIMENOrdering Facility: [facility] Address:[address] [place], [place] [address]Performed By: #### 01231-8 ####[facility] LABCLIA [id number] [place] [id number] [place] AMERICACO2 [Moles/Vol]26 mmol/LNormal 22-30[facility] on above:Order Comment: Specimen Type: BLOOD SPECIMENOrdering Facility: [facility] Address:[address] [place], [place] [address]Performed By: #### 53163-4 ####[facility] LABCLIA [id number] [place] [id number] [place] AMERICACreatinine [Mass/Vol]1.60 mg/dLHigh0.73-1.22[facility] on above:Order Comment: Specimen Type: BLOOD SPECIMENOrdering Facility: [facility] Address:[address] [place], [place] [address]Performed By: #### 93902-6 ####[facility] LABIA [id number] [place] [id number] [place] Creatinine and Glomerular filtration rate.predicted panel (S/P/Bld)44 mL/min/1.73m???Low>=60[facility] on above:Order Comment: Specimen Type: BLOOD SPECIMENOrdering Facility: [facility] Address:[address] [place], [place] [address]Result Comment: Estimated Glomerular Filtration Rate (eGFR) is calculated using the 2020 CKD-EPI creatinine equation. This equation utilizes serum creatinine, sex, and age as parameters. The creatinine assay has traceable calibration to isotope dilution-mass spectrometry. Refer to KDIGO guidelines for clinical interpretation. In patients with unstable renal function, e.g. those with acute kidney injury, the eGFR may not accurately reflect actual GFR.Performed By: #### 94200-8 ####[facility] LABCLIA [id number] [address] [address] [place] OF AMERICAGlucose [Mass/Vol]185 mg/hZSsvq22-33VsduapxufHarrison [facility] Hospital on above:Order Comment: Specimen Type: BLOOD SPECIMENOrdering Facility: [facility] Address:[address] [place], [place] [address]Result Comment: The [place] Diabetes Association (ADA) provides guidance for cutoff [...] Standards of Medical Care in Diabetes 2016, [place] Diabetes Association. Diabetes Care. 2016.39(Suppl 1). Corrected result: Previously reported as 189 mg/dL on 02/17/2025 at 11:40 AM EDT. Performed By: #### 20666-3 ####[facility] LABCLIA [id number] [address] [address] [place] Potassium [Moles/Vol]4.6 mmol/LNormal3.7-5.1CBrecksville [facility] / [facility] on above:Order Comment: Specimen Type: BLOOD SPECIMENOrdering Facility: [facility] Address:[address] [place] [id number] By: #### 98654-7 ####[facility] LABIA [id number] [address] [address] [place] AMERICAProtein [Mass/Vol]7.0 g/dLNormal6.3-8.0[facility] on above:Order Comment: Specimen Type: BLOOD SPECIMENOrdering Facility: [facility] Address:[address] [place], [place] [address]Result Comment: Corrected result: Previously reported as 6.6 g/dL on 02/17/2025 at 11:40 AM EDT.Performed By: #### 78549-4 ####[facility] LABCLIA [id number] [address] STATES OF [facility] HOSPITALSodium [Moles/Vol]138 mmol/IMtykcz438-482AmtivxgbkHarrison [facility] Hospital on above:Order Comment: Specimen Type: BLOOD SPECIMENOrdering Facility: [facility] Address:[address] [place], [place] [address]Performed By: #### 38501-4 ####[facility] HOSPITALIA [id number] [address] STATES OF AMERICAUrea nitrogen [Mass/Vol]23 mg/dL Normal9-24[facility] on above:Order Comment: Specimen Type: BLOOD SPECIMENOrdering Facility: [facility] Address:[address] [place], [place] [address]Result Comment: Corrected result: Previously reported as 25 mg/dL on 02/17/2025 at 11:40 AM EDT.Performed By: #### 55958-3 ####[facility] LABIA [id number] [place] [address] [place] AMERICAIMMUNOFIXATION SCREEN, SERUMon 80-32-6166DBCTWTUJLBBRFE (MPA)Atypical restricted bands are present in the IgG and kappa regions. Consistent with IgG kappa monoclonal gammopathy.Normal [facility] on above:Order Comment: Specimen Type: BLOOD SPECIMENOrdering Facility: [facility] Address:[address] [place], [place] [address]Performed By: #### IFESC ####[facility] LABCLIA [id number] [place] [address] [place] [facility] HOSPITALMPA RESULTM protein is present.AbnormalNo M protein is identified. [facility] on above:Order Comment: Specimen Type: BLOOD SPECIMENOrdering Facility: [facility] Address:[address] [place], [place] [address]Performed By: #### IFESC ####[facility] LABIA [id number] [address]ETSTAFF REVIEW ([facility])Reviewed by Donaldo Rivas MD, Ph.D ([id number])Normal [facility] on above:Order Comment: Specimen Type: BLOOD SPECIMENOrdering Facility: [facility] Address:[address] [place], [place] [address]Performed By: #### IFESC ####[facility] HOSPITALIA [id number] [place] [address] [place] AMERICAIMMUNOGLOBULINS,IGG,IGA,IGMon 75-64-2724ZcX [Mass/Vol]118 mg/dLNormal 70-400[facility] on above:Order Comment: Specimen Type: BLOOD SPECIMENOrdering Facility: [facility] Address:[address] [place], [place] [address]Performed By: #### SERIMM ####[facility] LABCLIA [id number] [place] [address] [place] AMERICAIgG [Mass/Vol]1245 mg/rRXebsdz571-1323ZlrpgtclrHarrison [facility] Hospital on above:Order Comment: Specimen Type: BLOOD SPECIMENOrdering Facility: [facility] Address:[address] [place], [place] [address]Performed By: #### SERIMM ####[facility] LABCLIA [id number] [place] [address] [place] IgM [Mass/Vol]21 mg/rOMxm19-192UeovhtnigHarrison [facility] Hospital on above:Order Comment: Specimen Type: BLOOD SPECIMENOrdering Facility: [facility] Address:[address] [place], [place] [address]Performed By: #### SERIMM ####[facility] [id number] [place] [address] [place] AMERICAKAPPA/DANIELS,FREE,SERon 02-17-2025 Immunoglobulin light chains.kappa.free (S) [Mass/Vol]37.4 mg/LHigh3.3-19.4 [facility] on above:Order Comment: Specimen Type: BLOOD SPECIMENOrdering Facility: [facility] Address:[address] [place], [place] [address]Result Comment: Rarely, increased serum free light chains levels may not be detected or accurately quantified due to prozone phenomenon or in high viscosity samples using this immunoturbidimetric assay. Correlation with other laboratory results and clinical findings is recommended. The Gravette Free Light Chain was performed using the Binding Site Optilite immunoturbidimetric method. Result obtained with different assay methods or kits cannot be used interchangeably.Performed By: #### KLFRS ####[facility] [id number] [place] [address] [place] AMERICAImmunoglobulin light chains.kappa/Immunoglobulin light chains.lambda (S) [Mass ratio]1.36Rmivtv6.26-1.65[facility] Comment on above:Order Comment: Specimen Type: BLOOD SPECIMENOrdering Facility: [facility] Address:[address] [place] [address] Performed By: #### KLFRS ####[facility] HOSPITALIA [id number] [place] [address] [place] AMERICAImmunoglobulin light chains.lambda.free [Mass/Vol]22.7 mg/LNormal5.7-26.3CBrecksville [facility] on above:Order Comment: Specimen Type: BLOOD SPECIMENOrdering Facility: [facility] Address:[address] [place], [place] [address]Result Comment: Rarely, increased serum free light chains levels may not be detected or accurately quantified due to prozone phenomenon or in high viscosity samples using this immunoturbidimetric assay. Correlation with other laboratory results and clinical findings is recommended. The Lambda Free Light Chain was performed using the Binding Site Optilite immunoturbidimetric method. Result obtained with different assay methods or kits cannot be used interchangeably.Performed By: #### KLFRS ####[facility] [id number] [address]ETPROTEIN ELECTROPHORESIS SERUM WITH TOÑITO (P)on 02-17-2025 Albumin [Mass/Vol]4.01 g/dLNormal3.43-5.41[facility] on above:Order Comment: Specimen Type: BLOOD SPECIMENOrdering Facility: [facility] Address:[address] [place], [place] [address]Performed By: #### [id number] ####[facility] [id number] [address]Alpha 1 globulin Elph [Mass/Vol]0.23 g/dLNormal0.18-0.43[facility] on above: Order Comment: Specimen Type: BLOOD SPECIMENOrdering Facility: [facility] Address:[address] [place], [place] [address]Performed By: #### [id number] ####[facility] [id number] [address] OF AMERICAAlpha 2 globulin Elph [Mass/Vol]0.66 g/dLNormal0.42-0.98[facility] on above: Order Comment: Specimen Type: BLOOD SPECIMENOrdering Facility: [facility] Address:[address] [place], [place] [address]Performed By: #### [id number] ####[facility] LABIA [id number] [address] OF AMERICABeta globulin Elph [Mass/Vol]0.73 g/dLNormal0.61-1.17[facility] on above: Order Comment: Specimen Type: BLOOD SPECIMENOrdering Facility: [facility] Address:[address] [place], [place] [address]Performed By: #### [id number] ####[facility] LABCLIA [id number] [place] [address] [place] AMERICACOMMENT (SERUM PROT ELECTRO)Monoclonal Protein analysis (immunofixation) is not indicated.Normal [facility] on above:Order Comment: Specimen Type: BLOOD SPECIMENOrdering Facility: [facility] Address:[address] [place], [place] [address]Performed By: #### [id number] ####[facility] LABIA [id number] [place] [address] [place] AMERICAGamma globulin Elph [Mass/Vol]1.08 g/dLNormal0.53-1.51[facility] on above:Order Comment: Specimen Type: BLOOD SPECIMENOrdering Facility: [facility] Address:[address] [place], [place] [address]Performed By: #### [id number] ####[facility] LABIA [id number] [place] [address] [place] INTERPRETATION COMMENT FOR PROTEIN ELECTROPHORESISSee separate immunofixation report for characterization of monoclonal gammopathy.NormalHarrison Community Hospital on above:Order Comment: Specimen Type: BLOOD SPECIMENOrdering Facility: [facility] Address:[address] [place], [place] [address]Performed By: #### [id number] ####[facility] LABIA [id number] [place] [address] [place] M-PROTEIN LOCATIONGamma Fraction 1NormalHarrison Community Hospital on above:Order Comment: Specimen Type: BLOOD SPECIMENOrdering Facility: [facility] Address:[address] [place], [place] [address]Performed By: #### [id number] ####[facility] LABIA [id number] [place] [address] [place] AMERICAProtein Fractions [Interp]An M protein is identified on protein electrophoresis.AbnormalNo definitive M protein is identified on protein electrophoresis.[facility] on above:Order Comment: Specimen Type: BLOOD SPECIMENOrdering Facility: [facility] Address:[address] [place], [place] [address]Performed By: #### [id number] ####[facility] [id number] [place] [address] [place] Protein.monoclonal Elph [Mass/Vol]0.65 g/dLHigh<=0.00[facility] Comment on above:Order Comment: Specimen Type: BLOOD SPECIMENOrdering Facility: [facility] Address:[address] [place] [address] Performed By: #### [id number] ####[facility] [id number] [place] [address] [place] SPE STAFF REVIEWReviewed by Donaldo Rivas MD, Ph.D ([id number])NormalHarrison Community Hospital on above:Order Comment: Specimen Type: BLOOD SPECIMENOrdering Facility: [facility] Address:[address] [place], [place] [address]Performed By: #### [id number] ####[facility] [id number] [place] [address] [place] AMERICAProt SerPl-mCncon 49-91-3966Gisknre [Mass/Vol]6.7 g/dLNormal6.3-8.0 [facility] on above:Order Comment: Specimen Type: BLOOD SPECIMENOrdering Facility: [facility] Address:[address] [place], [place] [address]Performed By: #### 2885-2 ####[facility] LABIA [id number] [place] [address] [place] AMERICACNPNon 57-17-3337WOLTDpcoauhrs (HEMTSA) ZACH MANUEL ([id number]) 1945 M Date Time Provider Department 02/13/25 KEYONNA FUENTES HEMTSA During your visit today, we recorded the following information about you: Keyonna Fuentes RN 02/13/2025 11:04 AM Signed Pt in for OV and Aredia on Saturday 02/17, please place and sign more orders. Thanks! TAYLER Aldana Kathryn, [facility] 02/13/2025 12:20 PM Signed Orders entered and routed in separate encounter. 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 [Z79*10/20/2015 Left inguinal hernia [K40.90] 10/20/2015 Former smoker [Z87.891] 10/20/2015 Elevated prostate specific antigen (PSA) [R97.2*03/19/2020 Stage 3 chronic kidney disease, unspecified whe*03/06/2023 Encounter Status:Closed by AINSLEY WOODSON on 02/13/25[facility] [place] 12 leadon 51-36-5610WZKGYQPNVRDSIWCrsKrkhglUnityPoint Health-Grinnell Regional Medical CenterCNPNon 90-96-5031NPJYGqnqagutu (HEMTSA) ZACH MANUEL ([id number]) 1945 M Date Time Provider Department 05/29/24 JUAN FERGUSON HEMTSA During your visit today, we recorded [...] Fully Assessed Reason for Visit: Care Coordination [3492] Cmt: Lab Results Prescriptions as of 05/29/2024 [...] Type 2 diabetes mellitus without complication (*10/20/2015 retirement current use of systemic steroids [Z79*10/20/2015 Left inguinal hernia [K40.90] 10/20/2015 Former smoker [Z87.891] 10/20/2015 Elevated prostate specific antigen (PSA) [R97.2*03/19/2020 Stage 3 chronic kidney disease, unspecified whe*03/06/2023 Encounter Status:Closed by JUAN FERGUSON on 05/29/24NormalCPremier Health Miami [facility] W Auto Differential panel (Bld)on 37-30-7422Rgedikajo (Bld) [#/Vol] 0.09 10*3/uLNormal<0.11CBrecksville [facility] on above:Order Comment: Specimen Type: BLOOD SPECIMENOrdering Facility: [facility] Address:[address] [place], [place] [address]Performed By: #### 96228-1 ####[facility] LABIA [id number] [place], [place] [address]Viloxvegb/100 WBC (Bld)1.3 %NormalHarrison Community Hospital on above:Order Comment: Specimen Type: BLOOD SPECIMENOrdering Facility: [facility] Address:[address] [place], [place] [address]Performed By: #### 77441-7 ####[facility] LABIA [id number] [place], [place] [address]Tkjlpzpuoprk cell count method Nom (Bld)AutoNormSamaritan Hospital on above:Order Comment: Specimen Type: BLOOD SPECIMENOrdering Facility: [facility] Address:[address] [place], [place] [address]Performed By: #### 23512-4 ####[facility] LABIA [id number] [place], [place] [address]Kzaaqsfaghe (Bld) [#/Vol]0.32 10*3/uLNormal<0.46[facility] on above:Order Comment: Specimen Type: BLOOD SPECIMENOrdering Facility: [facility] Address:[address] [place], [place] [address]Performed By: #### 08904-6 ####[facility] LABIA [id number] [place], [place] [address]Tjfqbhxnjeu/100 WBC (Bld)4.7 %NormalMount St. Mary HospitalComment on above:Order Comment: Specimen Type: BLOOD SPECIMENOrdering Facility: [facility] Address:[address] [place], [place] [address]Performed By: #### 71787-3 ####[facility] LABIA [id number] [place], [place] [address]Ojyyilybjgv distribution width (RBC) [Ratio]13.8 %Normal 11.5-15.0[facility] on above:Order Comment: Specimen Type: BLOOD SPECIMENOrdering Facility: [facility] Address:[address] [place], [place] [address]Performed By: #### 63819-2 ####[facility] LABIA [id number] [place] [address] Hematocrit (Bld) [Volume fraction]37.7 %Low39.0-51.0[facility] Comment on above:Order Comment: Specimen Type: BLOOD SPECIMENOrdering Facility: [facility] Address:[address] [place] [address] Performed By: #### 52054-3 ####[facility] LABIA [id number] [place], [place] [address]Zlmuggxwtf (Bld) [Mass/Vol]13.3 g/vUSahtni09.0-17.0[facility] on above:Order Comment: Specimen Type: BLOOD SPECIMENOrdering Facility: [facility] Address:[address] [place], [place] [address]Performed By: #### 09339-7 ####[facility] LABIA [id number] [place], [place] [address]Zbeqxtue granulocytes (Bld) [#/Vol]0.03 10*3/uLNormal <0.10[facility] on above:Order Comment: Specimen Type: BLOOD SPECIMENOrdering Facility: [facility] Address:[address] [place], [place] [address]Performed By: #### 87769-3 ####[facility] LABCLIA [id number] [place], [place] [address]Dggaeeev granulocytes/100 WBC (Bld)0.4 %NormalHarrison Community Hospital on above: Order Comment: Specimen Type: BLOOD SPECIMENOrdering Facility: [facility] Address:[address] [place], [place] [address]Performed By: #### 19194- 8 ####[facility] LABCLIA [id number] [place], [place] [address]Chshkhufryx (Bld) [#/Vol]1.04 10*3/uLNormal1.00-4.00 [facility] on above:Order Comment: Specimen Type: BLOOD SPECIMENOrdering Facility: [facility] Address:[address] [place], [place] [address]Performed By: #### 45417-4 ####[facility] LABIA [id number] [place], [place] [address]Owdaxqphelj/100 WBC (Bld)15.3 %NormalHarrison Community Hospital on above:Order Comment: Specimen Type: BLOOD SPECIMENOrdering Facility: [facility] Address:[address] [place], [place] [address]Performed By: #### 21110-4 ####[facility] LABIA [id number] [place], [place] [address]SAG (RBC) [Entitic mass]36.3 saTaxe66.0-34.0[facility] on above:Order Comment: Specimen Type: BLOOD SPECIMENOrdering Facility: [facility] Address:[address] [place], [place] [address]Performed By: #### 09708-2 ####[facility] LABCLIA [id number] [place], [place] [address]KTVA (RBC) [Mass/Vol]35.3 g/rQUmmwqd26.5-36.0[facility] on above: Order Comment: Specimen Type: BLOOD SPECIMENOrdering Facility: [facility] Address:[address] [place], [place] [address]Performed By: #### 68518- 8 ####[facility] LABCLIA [id number] [place], [place] [address]PDV (RBC) [Entitic vol]103.0 xKGtyz92.0-100.0[facility] on above:Order Comment: Specimen Type: BLOOD SPECIMENOrdering Facility: [facility] Address:[address] [place], [place] [address]Performed By: #### 75617-1 ####[facility] LABIA [id number] [place], [place] [address]Lcvlrwsel (Bld) [#/Vol]0.72 10*3/uLNormal<0.87[facility] on above:Order Comment: Specimen Type: BLOOD SPECIMENOrdering Facility: [facility] Address:[address] [place], [place] [address]Performed By: #### 68424- 8 ####[facility] LABCLIA [id number] [place], [place] [address]Rnytkjgdx/100 WBC (Bld)10.6 %NormalHarrison Community Hospital on above:Order Comment: Specimen Type: BLOOD SPECIMENOrdering Facility: [facility] Address:[address] [place], [place] [address]Performed By: #### 78616-3 ####[facility] LABIA [id number] [place], [place] [address]Smyhbpuwcam (Bld) [#/Vol]4.60 10*3/uLNormal1.45-7.50[facility] on above:Order Comment: Specimen Type: BLOOD SPECIMENOrdering Facility: [facility] Address:[address] [place], [place] [address]Performed By: #### 47909-0 ####[facility] LABCLIA [id number] [place], [place] [address]Ptbkjkriftr/100 WBC (Bld)67.7 %NormalHarrison Community Hospital on above:Order Comment: Specimen Type: BLOOD SPECIMENOrdering Facility: [facility] Address:[address] [place], [place] [address]Performed By: #### 49791-4 ####[facility] LABCLIA [id number] [place], [place] [address]Jyannbqic RBC (Bld) [#/Vol] 10*3/uLNormal<0.01[facility] on above:Order Comment: Specimen Type: BLOOD SPECIMENOrdering Facility: [facility] Address:[address] [place], [place] [address]Performed By: #### 52684-3 ####[facility] LABCLIA [id number] [place], [place] [address]Erwcdpruf RBC/100 WBC (Bld) [Ratio]0.0 /100 WBCNormal [facility] on above:Order Comment: Specimen Type: BLOOD SPECIMENOrdering Facility: [facility] Address:[address] [place], [place] [address]Performed By: #### 36640-7 ####[facility] LABCLIA [id number] [place], [place] [address]Jztbyktg mean volume (Bld) [Entitic vol]10.6 fLNormal9.0-12.7CBrecksville [facility] on above:Order Comment: Specimen Type: BLOOD SPECIMENOrdering Facility: [facility] Address:[address] [place] [address] Performed By: #### 02095-4 ####[facility] LABCLIA [id number] [place], [place] [address]Rlkcpllwi (Bld) [#/Vol]172 10*3/iIEikxkh631-919PqdwqtgbjHarrison Community Hospital on above:Order Comment: Specimen Type: BLOOD SPECIMENOrdering Facility: [facility] Address:[address] [place], [place] [address]Performed By: #### 86972-1 ####[facility] LABCLIA [id number] [place], [place] [address]TPR (Bld) [#/Vol]3.66 10*6/uLLow4.20-6.00[facility] on above:Order Comment: Specimen Type: BLOOD SPECIMENOrdering Facility: [facility] Address:[address] [place], [place] [address]Performed By: #### 92777-4 ####[facility] LABIA [id number] [place], [place] [address]BGX (Bld) [#/Vol]6.80 10*3/uL Normal3.70-11.00[facility] on above:Order Comment: Specimen Type: BLOOD SPECIMENOrdering Facility: [facility] Address:[address] [place], [place] [address]Performed By: #### 43983-1 ####[facility] LABIA [id number] [place], [place] [address]RDSERNqx [id number] (SP) Office (HEMASA) ZACH MANUEL ([id number]) 1945 M Date Time Provider Department 05/27/24 [...] date: Hyperlipidemia 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 Mary HospitalCNPNon 13-22-0958FUPPUbovzhfvq (HEMASA) ZACH MANUEL ([id number]) 1945 Jessica Date Time Provider Department 05/27/24 LATRICE HILARIO HEMASA During your visit today, we recorded [...] Type 2 diabetes mellitus without complication (*10/20/2015 retirement current use of systemic steroids [Z79*10/20/2015 Left inguinal hernia [K40.90] 10/20/2015 Former smoker [Z87.891] 10/20/2015 Elevated prostate specific antigen (PSA) [R97.2*03/19/2020 Stage 3 chronic kidney disease, unspecified whe*03/06/2023 Encounter Status:Closed by JUAN FERGUSON on 05/27/24NormalClevelCritical access hospitalComprehensive metabolic 2000 panelon 16-47-9781Syohiev [Mass/Vol]3.9 g/dLNormal3.9-4.9CWayne HospitalComment on above:Order Comment: Specimen Type: BLOOD SPECIMENOrdering Facility: [facility] Address:[address] [place], [place] [address]Result Comment: Corrected result: Previously reported as 4.1 g/dL on 05/27/2024 at 1:22 PM EDT.Performed By: #### 37126-2 ####[facility] LABCLIA [id number] [place] [address] [place] AMERICAALP [Catalytic activity/Vol]74 U/CYrboai39-614NqdnqeovgHarrison Community Hospital on above:Order Comment: Specimen Type: BLOOD SPECIMENOrdering Facility: [facility] Address:[address] [place], [place] [address]Result Comment: Corrected result: Previously reported as 77 U/L on 05/27/2024 at 1:22 PM EDT.Performed By: #### 69090-1 ####[facility] LABIA [id number] [place] [address] [place] AMERICAALT [Catalytic activity/Vol]16 U/REhepua66-90ShfflvxteHarrison Community Hospital on above:Order Comment: Specimen Type: BLOOD SPECIMENOrdering Facility: [facility] Address:[address] [place], [place] [address]Result Comment: Corrected result: Previously reported as 10 U/L on 05/27/2024 at 1:22 PM EDT.Performed By: #### 30272-1 ####[facility] LABCLIA [id number] [place] [address] [place] AMERICAAnion gap [Moles/Vol] 12 mmol/LNormal8-15[facility] on above:Order Comment: Specimen Type: BLOOD SPECIMENOrdering Facility: [facility] Address:[address] [place], [place] [address]Performed By: #### 99880-8 ####[facility] LABIA [id number] [place] [address] [place] AMERICAAST [Catalytic activity/Vol]20 U/FParfrr51-88VjjkecdfxHarrison Community Hospital on above:Order Comment: Specimen Type: BLOOD SPECIMENOrdering Facility: [facility] Address:[address], [place], [place] [address]Rmpnui Comment: Corrected result: Previously reported as 13 U/L on 05/27/2024 at 1:22 PM EDT.Performed By: #### 09836-5 ####[facility] LABCLIA [id number] [place] [address] [place] AMERICABilirubin [Mass/Vol]0.9 mg/dL Normal0.2-1.3CWayne HospitalComment on above:Order Comment: Specimen Type: BLOOD SPECIMENOrdering Facility: [facility] Address:[address] [place], [place] [address]Performed By: #### 11242-5 ####[facility] LABCLIA [id number] [place] [address] [place] AMERICACalcium [Mass/Vol]8.5 mg/dLNormal8.5-10.2ClevelCritical access hospitalComment on above:Order Comment: Specimen Type: BLOOD SPECIMENOrdering Facility: [facility] Address:[address] [place], [place] [address]Performed By: #### 99410-0 ####[facility] LABCLIA [id number] [place] [address] [place] AMERICAChloride [Moles/Vol]106 mmol/OKppxrz30-689EjktbyznwMount St. Mary Hospital Comment on above:Order Comment: Specimen Type: BLOOD SPECIMENOrdering Facility: [facility] Address:[address] [place], [place] [address]Result Comment: Result rechecked.Performed By: #### 25973-0 ####[facility] LABCLIA [id number] [place] [address] [place] AMERICACO2 [Moles/Vol]27 mmol/YDjsqlf18-81VwilnkadpMount St. Mary Hospital Comment on above:Order Comment: Specimen Type: BLOOD SPECIMENOrdering Facility: [facility] Address:[address] [place], [place] [address]Result Comment: Corrected result: Previously reported as 29 mmol/L on 05/27/2024 at 1:22 PM EDT.Performed By: #### 17520-3 ####[facility] LABIA [id number] [place] [address] [place] [facility] Creatinine [Mass/Vol]1.59 mg/dLHigh0.73-1.22[facility] on above:Order Comment: Specimen Type: BLOOD SPECIMENOrdering Facility: [facility] Address:[address] [place], [place] [address]Result Comment: Corrected result: Previously reported as 1.61 mg/dL on 05/27/2024 at 1:22 PM EDT. Performed By: #### 01701-6 ####[facility]ITALIA [id number] [address] Creatinine and Glomerular filtration rate.predicted panel (S/P/Bld)44 mL/min/1.73m???Low>=60[facility] on above:Order Comment: Specimen Type: BLOOD SPECIMENOrdering Facility: [facility] Address:[address] [place], [place] [address]Result Comment: Estimated Glomerular Filtration Rate (eGFR) is calculated using the 2020 CKD-EPI creatinine equation. This equation utilizes serum creatinine, sex, and age as parameters. The creatinine assay has traceable calibration to isotope dilution-mass spectrometry. Refer to KDIGO guidelines for clinical interpretation. In patients with unstable renal function, e.g. those with acute kidney injury, the eGFR may not accurately reflect actual GFR.Performed By: #### 78018-4 ####[facility] HOSPITALIA [id number] [address] STATES OF [facility] HOSPITALGlucose [Mass/Vol]78 mg/aOVqjxhe59-26GdyttkyaeHarrison Community Hospital on above:Order Comment: Specimen Type: BLOOD SPECIMENOrdering Facility: [facility] Address:[address] [place], [place] [address]Result Comment: The [place] Diabetes Association (ADA) provides guidance for cutoff [...] Standards of Medical Care in Diabetes 2016, [place] [employer]. Diabetes Care. 2016.39(Suppl 1). Corrected result: Previously reported as 85 mg/dL on 05/27/2024 at 1:22 PM EDT. Performed By: #### 18760-5 ####[facility] LABIA [id number] [place] [address] [place] Potassium [Moles/Vol]4.5 mmol/LNormal3.7-5.1CBrecksville VA / [facility] on above:Order Comment: Specimen Type: BLOOD SPECIMENOrdering Facility: [facility] Address:[address] [place], [place] [address]Performed By: #### 87014-5 ####[facility] [id number] [place] [address] [place] AMERICAProtein [Mass/Vol]6.6 g/dLNormal6.3-8.0[facility] on above:Order Comment: Specimen Type: BLOOD SPECIMENOrdering Facility: [facility] Address:[address] [place], [place] [address]Result Comment: Corrected result: Previously reported as 6.3 g/dL on 05/27/2024 at 1:22 PM EDT.Performed By: #### 73032-2 ####[facility] [id number] [place] [address] [place] AMERICASodium [Moles/Vol]145 mmol/WXimm878-051AxtyineahHarrison Community Hospital on above:Order Comment: Specimen Type: BLOOD SPECIMENOrdering Facility: [facility] Address:[address] [place], [place] [address]Result Comment: Result rechecked. Performed By: #### 57261-5 ####[facility] LABCLIA [id number] [place] [address] [place] Urea nitrogen [Mass/Vol]15 mg/dLNormal9-24[facility] on above:Order Comment: Specimen Type: BLOOD SPECIMENOrdering Facility: [facility] Address:[address] [place], [place] [address]Result Comment: Corrected result: Previously reported as 17 mg/dL on 05/27/2024 at 1:22 PM EDT. Performed By: #### 70601-9 ####[facility] LABCLIA [id number] [address] OF [facility] IMMUNOFIXATION SCREEN, SERUMon 77-62-9442YVKMQXTXCXFLPX (MPA)Atypical restricted bands are present in the IgG and kappa regions. Consistent with IgG kappa monoclonal gammopathy.NormalHarrison Community Hospital on above:Order Comment: Specimen Type: BLOOD SPECIMENOrdering Facility: [facility] Address:[address] [place], [place] [address]Performed By: #### IFESC ####[facility] LABCLIA [id number] [place] [address] [place] AMERICAMPA RESULTM protein is present. AbnormalNo M protein is identified.[facility] on above: Order Comment: Specimen Type: BLOOD SPECIMENOrdering Facility: [facility] Address:[address] [place], [place] [address]Performed By: #### IFESC ####[facility] LABCLIA [id number] [address] STATES OF AMERICASTAFF REVIEW (MPA)Reviewed by Kishor AranaalCBrecksville VA / [facility] on above:Order Comment: Specimen Type: BLOOD SPECIMENOrdering Facility: [facility] Address:[address] [place], [place] [address]Performed By: #### IFESC ####[facility] LABCLIA [id number] [facility] [address] [address] [place] AMERICAIMMUNOGLOBULINS,IGG,IGA,IGMon 67-98-6504YvE [Mass/Vol]94 mg/lMRmuyov33-997AyhmccnixHarrison Community Hospital on above:Order Comment: Specimen Type: BLOOD SPECIMENOrdering Facility: [facility] Address:[address] [place], [place] [address]Performed By: #### SERIMM ####[facility] LABCLIA [id number] [place] [address] [place] AMERICAIgG [Mass/Vol]1157 mg/gOKrrbyo001-0766FvxgsnhilHarrison Community Hospital on above:Order Comment: Specimen Type: BLOOD SPECIMENOrdering Facility: [facility] Address:[address] [place], [place] [address]Performed By: #### SERIMM ####[facility] LABCLIA [id number] [facility] [id number] [place] [address] [place] AMERICAIgM [Mass/Vol]18 mg/tTAmj96-177 [facility] on above:Order Comment: Specimen Type: BLOOD SPECIMENOrdering Facility: [facility] Address:[address] [place], [place] [address]Performed By: #### SERIMM ####[facility] LABIA [id number] [place] [address] [place] AMERICAKAPPA/DANIELS,FREE,SERon 63-44-9875Sfqwoyrihrbmzq light chains.kappa.free (S) [Mass/Vol]40.4 mg/LHigh3.3-19.4CBrecksville VA / [facility] on above: Order Comment: Specimen Type: BLOOD SPECIMENOrdering Facility: [facility] Address:[address] [place], [place] [address]Result Comment: Rarely, increased serum free light chains levels may not be detected or accurately q uantified due to prozone phenomenon or in high viscosity samples using this immunoturbidimetric assay. Correlation with other laboratory results and clinical findings is recommended. The Gravette Free Light Chain was performed using the Binding Site Optilite immunoturbidimetric method. Result obtained with different assay methods or kits cannot be used interchangeably.Performed By: #### KLFRS ####[facility] LABIA [id number] [place] [address] [place] AMERICAImmunoglobulin light chains.kappa/Immunoglobulin light chains.lambda (S) [Mass ratio]1.09Erngfl6.26-1.65[facility] Comment on above:Order Comment: Specimen Type: BLOOD SPECIMENOrdering Facility: [facility] Address:[address] [place] [address] Performed By: #### KLFRS ####[facility] [id number] [address]Immunoglobulin light chains.lambda.free [Mass/Vol]25.0 mg/LNormal5.7-26.3CWayne HospitalComment on above:Order Comment: Specimen Type: BLOOD SPECIMENOrdering Facility: [facility] Address:[address] [place], [place] [address]Result Comment: Rarely, increased serum free light chains levels may not be detected or accurately quantified due to prozone phenomenon or in high viscosity samples using this immunoturbidimetric assay. Correlation with other laboratory results and clinical findings is recommended. The Lambda Free Light Chain was performed using the Binding Site Optilite immunoturbidimetric method. Result obtained with different assay methods or kits cannot be used interchangeably.Performed By: #### KLFRS ####[facility] LABIA [id number] [place] [address] [place] AMERICAPROTEIN ELECTROPHORESIS SERUM (P)on 70-37-3600Rgzyxhb [Mass/Vol]3.79 g/dLNormal3.43-5.41[facility] on above: Order Comment: Specimen Type: BLOOD SPECIMENOrdering Facility: [facility] Address:[address] [place], [place] [address]Performed By: #### [id number] ####[facility] LABIA [id number] [place] [address] [place] AMERICAAlpha 1 globulin Elph [Mass/Vol]0.23 g/dLNormal0.18-0.43[facility] on above: Order Comment: Specimen Type: BLOOD SPECIMENOrdering Facility: [facility] Address:[address] [place], [place] [address]Performed By: #### [id number] ####[facility] LABIA [id number] [place] [address] [place] AMERICAAlpha 2 globulin Elph [Mass/Vol]0.59 g/dLNormal0.42-0.98[facility] on above: Order Comment: Specimen Type: BLOOD SPECIMENOrdering Facility: [facility] Address:[address] [place], [place] [address]Performed By: #### [id number] ####[facility] LABIA [id number] [place] [address] [place] AMERICABeta globulin Elph [Mass/Vol]0.61 g/dLNormal0.61-1.17[facility] on above: Order Comment: Specimen Type: BLOOD SPECIMENOrdering Facility: [facility] Address:[address] [place], [place] [address]Performed By: #### [id number] ####[facility] LABIA [id number] [place] [address] [place] AMERICAGamma globulin Elph [Mass/Vol]0.98 g/dLNormal0.53-1.51[facility] on above: Order Comment: Specimen Type: BLOOD SPECIMENOrdering Facility: [facility] Address:[address] [place], [place] [address]Performed By: #### [id number] ####[facility] LABIA [id number] [place] [address] [place] AMERICAINTERPRETATION COMMENT FOR PROTEIN ELECTROPHORESISSee separate immunofixation report for characterization of monoclonal gammopathy.NormalMount St. Mary Hospital Comment on above:Order Comment: Specimen Type: BLOOD SPECIMENOrdering Facility: [facility] Address:[address] [place] [address] Performed By: #### [id number] ####[facility] LABIA [id number] [place] [address] [place] M-PROTEIN LOCATIONGamma Fraction 1NormalMount St. Mary HospitalComment on above:Order Comment: Specimen Type: BLOOD SPECIMENOrdering Facility: [facility] Address:[address] [place], [place] [address]Performed By: #### [id number] ####[facility] LABIA [id number] [place] [address] [place] AMERICAProtein Fractions [Interp]An M protein is identified on protein electrophoresis.AbnormalNo definitive M protein is identified on protein electrophoresis.Mount St. Mary HospitalComment on above:Order Comment: Specimen Type: BLOOD SPECIMENOrdering Facility: [facility] Address:[address] [place], [place] [address]Performed By: #### [id number] ####[facility] LABIA [id number] [place] [address] [place] Protein.monoclonal Elph [Mass/Vol]0.67 g/dLHigh<=0.00[facility] Comment on above:Order Comment: Specimen Type: BLOOD SPECIMENOrdering Facility: [facility] Address:[address] [place] [address] Performed By: #### [id number] ####[facility] LABIA [id number] [place] [address] [place] SPE STAFF REVIEWReviewed by Endy AranaWayne Hospital Comment on above:Order Comment: Specimen Type: BLOOD SPECIMENOrdering Facility: [facility] Address:[address] [place] [address] Performed By: #### [id number] ####[facility] LABCLIA [id number] [facility]ITALK [id number] STATES OF [place] Prot SerPl-mCncon 09-20-6590Trkeayv [Mass/Vol]6.2 g/dLLow6.3-8.0Mount St. Mary HospitalComment on above:Order Comment: Specimen Type: BLOOD SPECIMENOrdering Facility: [facility] Address:[address] [place], [place] [address]Performed By: #### 2885-2 ####[facility] LABCLIA [id number] [facility] [id number] OF [place] CNPVangie 35-19-6203UCVJTpgiwwckv (HEMTSA) ZACH MANUEL ([id number]) 1945 M Date Time Provider Department 05/20/24 [...] Date Reviewed: 05/20/2024 Reviewed by: Latrice Hilario PAMichelleC - Fully Assessed Reason for Visit: Lab Orders [8218] Primary Visit Diagnosis:Multiple myeloma not having achieved remission (HCC) [C90.00] Order(s):COMPREHENSIVE METABOLIC PANEL [SQCMP] Order #: [id number] FUTURE COMPLETE BLOOD COUNT AND DIFFERENTIAL [SQCBCDIF] Order #: [id number] FUTURE MONOCLONAL PROTEIN, SERUM (BLOOD) [SQSERMPA] Order #: [id number] FUTURE PROTEIN ELECTROPHORESIS SERUM W/INTERP [SQSEPG] Order #: [id number] FUTURE Prescriptions as of 05/20/2024 - lenalidomide [...] Type 2 diabetes mellitus without complication (*10/20/2015 retirement current use of systemic steroids [Z79*10/20/2015 Left inguinal hernia [K40.90] 10/20/2015 Former smoker [Z87.891] 10/20/2015 Elevated prostate specific antigen (PSA) [R97.2*03/19/2020 Stage 3 chronic kidney disease, unspecified whe*03/06/2023 Encounter Status:Closed by IRMA TALAVERA on 05/20/24NoBarney Children's Medical CenterCNPNon 20-43-0374ZDBAIiiiaaocw (HEMASA) DOMITILAZACH ([id number]) 1945 M Date Time Provider Department 02/29/24 [...] Type 2 diabetes mellitus without complication (*10/20/2015 retirement current use of systemic steroids [Z79*10/20/2015 Left inguinal hernia [K40.90] 10/20/2015 Former smoker [Z87.891] 10/20/2015 Elevated prostate specific antigen (PSA) [R97.2*03/19/2020 Stage 3 chronic kidney disease, unspecified whe*03/06/2023 Encounter Status:Closed by JUAN FERGUSON on 02/29/24NormalCPremier Health [facility] W Auto Differential panel (Bld)on 77-21-3429Vemrnvfud (Bld) [#/Vol] 0.09 10*3/uLNormal<0.11CBrecksville [facility] on above:Order Comment: Specimen Type: BLOOD SPECIMENOrdering Facility: [facility] Address:[address] [facility] [address] [place], [place] [address]Zwarcedkf By: #### 96700-5 ####[facility] LABCLIA [id number] [place], [place] [address]Fpjdntdlo/100 WBC (Bld)1.4 %NormalHarrison Community Hospital on above:Order Comment: Specimen Type: BLOOD SPECIMENOrdering Facility: [facility] Address:[address] [place], [place] [address]Performed By: #### 12972-8 ####[facility] LABCLIA [id number] [place], [place] [address]Lnwgidroydvs cell count method Nom (Bld)AutoNormalClevelKeenan Private Hospital on above:Order Comment: Specimen Type: BLOOD SPECIMENOrdering Facility: [facility] Address:[address] [place], [place] [address]Performed By: #### 65825-1 ####[facility] LABCLIA [id number] [place], [place] [address]Jylvkpqsdxc (Bld) [#/Vol]0.44 10*3/uLNormal<0.46[facility] on above:Order Comment: Specimen Type: BLOOD SPECIMENOrdering Facility: [facility] Address:[address] [place], [place] [address]Performed By: #### 69159-9 ####[facility] LABIA [id number] [place], [place] [address]Ukcuvkibnfj/100 WBC (Bld)6.6 %NormalHarrison Community Hospital on above:Order Comment: Specimen Type: BLOOD SPECIMENOrdering Facility: [facility] Address:[address] [place], [place] [address]Performed By: #### 71574-6 ####[facility] LABIA [id number] [place], [place] [address]Zlrnkmfgfti distribution width (RBC) [Ratio]15.4 %High 11.5-15.0[facility] on above:Order Comment: Specimen Type: BLOOD SPECIMENOrdering Facility: [facility] Address:[address] [place], [place] [address]Performed By: #### 48991-0 ####[facility] LABCLIA [id number] [place] [address] Hematocrit (Bld) [Volume fraction]38.0 %Low39.0-51.0[facility] Comment on above:Order Comment: Specimen Type: BLOOD SPECIMENOrdering Facility: [facility] Address:[address] [place] [address] Performed By: #### 41195-5 ####[facility] LABIA [id number] [place], [place] [address]Tghagkolfk (Bld) [Mass/Vol]12.9 g/dLLow13.0-17.0[facility] on above:Order Comment: Specimen Type: BLOOD SPECIMENOrdering Facility: [facility] Address:[address] [place], [place] [address]Performed By: #### 55513-9 ####[facility] LABIA [id number] [place], [place] [address]Fmslhazr granulocytes (Bld) [#/Vol]0.04 10*3/uLNormal <0.10[facility] on above:Order Comment: Specimen Type: BLOOD SPECIMENOrdering Facility: [facility] Address:[address] [place], [place] [address]Performed By: #### 04096-5 ####[facility] LABIA [id number] [place], [place] [address]Bsiaxpdi granulocytes/100 WBC (Bld)0.6 %NormalHarrison Community Hospital on above: Order Comment: Specimen Type: BLOOD SPECIMENOrdering Facility: [facility] Address:[address] [place], [place] [address]Performed By: #### 38352- 8 ####[facility] LABIA [id number] [place], [place] [address]Wgcmwjsiqeb (Bld) [#/Vol]1.24 10*3/uLNormal1.00-4.00 [facility] on above:Order Comment: Specimen Type: BLOOD SPECIMENOrdering Facility: [facility] Address:[address] [place], [place] [address]Performed By: #### 52611-6 ####[facility] LABCLIA [id number] [place], [place] [address]Wsyigadftqk/100 WBC (Bld)18.6 %NormalHarrison Community Hospital on above:Order Comment: Specimen Type: BLOOD SPECIMENOrdering Facility: [facility] Address:[address] [place], [place] [address]Performed By: #### 21795-2 ####[facility] LABCLIA [id number] [place], [place] [address]DKU (RBC) [Entitic mass]35.5 vrXlvb55.0-34.0[facility] on above:Order Comment: Specimen Type: BLOOD SPECIMENOrdering Facility: [facility] Address:[address] [place], [place] [address]Performed By: #### 45848-3 ####[facility] LABCLIA [id number] [place], [place] [address]LOOT (RBC) [Mass/Vol]33.9 g/fTVtmygg52.5-36.0[facility] on above: Order Comment: Specimen Type: BLOOD SPECIMENOrdering Facility: [facility] Address:[address] [place], [place] [address]Performed By: #### 14997- 8 ####[facility] LABCLIA [id number] [place], [place] [address]WBV (RBC) [Entitic vol]104.7 zGTtbh92.0-100.0[facility] on above:Order Comment: Specimen Type: BLOOD SPECIMENOrdering Facility: [facility] Address:[address] [place], [place] [address]Performed By: #### 78908-0 ####[facility] LABCLIA [id number] [place], [place] [address]Hcmlyyolr (Bld) [#/Vol]0.88 10*3/uLHigh<0.87[facility] on above:Order Comment: Specimen Type: BLOOD SPECIMENOrdering Facility: [facility] Address:[address] [place], [place] [address]Performed By: #### 70596- 8 ####[facility] LABCLIA [id number] [place], [place] [address]Oymgkhhmv/100 WBC (Bld)13.2 %NormalHarrison Community Hospital on above:Order Comment: Specimen Type: BLOOD SPECIMENOrdering Facility: [facility] Address:[address] [place], [place] [address]Performed By: #### 87604-4 ####[facility]ITAL[facility] [id number] [place], [place] [address]Rjjngnqgpav (Bld) [#/Vol]3.96 10*3/uLNormal1.45-7.50[facility] on above:Order Comment: Specimen Type: BLOOD SPECIMENOrdering Facility: [facility] Address:[address] [place], [place] [address]Performed By: #### 04123-1 ####[facility] LABIA [id number] [place], [place] [address]Mtjhogiylpk/100 WBC (Bld)59.6 %NormalHarrison Community Hospital on above:Order Comment: Specimen Type: BLOOD SPECIMENOrdering Facility: [facility] Address:[address] [place], [place] [address]Performed By: #### 48236-0 ####[facility] LABIA [id number] [place], [place] [address]Ssfhznfna RBC (Bld) [#/Vol] 10*3/uLNormal<0.01[facility] on above:Order Comment: Specimen Type: BLOOD SPECIMENOrdering Facility: [facility] Address:[address] [place], [place] [address]Performed By: #### 80701-9 ####[facility] LABCLIA [id number] [place], [place] [address]Dzgnxapot RBC/100 WBC (Bld) [Ratio]0.0 /100 WBCNormal [facility] on above:Order Comment: Specimen Type: BLOOD SPECIMENOrdering Facility: [facility] Address:[address] [place], [place] [address]Performed By: #### 27842-0 ####[facility] LABCLIA [id number] [place], [place] [address]Gqvkwzrq mean volume (Bld) [Entitic vol]10.6 fLNormal9.0-12.7CBrecksville VA / [facility] on above:Order Comment: Specimen Type: BLOOD SPECIMENOrdering Facility: [facility] Address:[address] [place] [address] Performed By: #### 82726-7 ####[facility] LABCLIA [id number] [place], [place] [address]Rqymvxbwr (Bld) [#/Vol]203 10*3/xFBswmaz813-124QjrcyrekfHarrison Community Hospital on above:Order Comment: Specimen Type: BLOOD SPECIMENOrdering Facility: [facility] Address:[address] [place], [place] [address]Performed By: #### 01799-4 ####[facility] LABCLIA [id number] [place], [place] [address]HCW (Bld) [#/Vol]3.63 10*6/uLLow4.20-6.00[facility] on above:Order Comment: Specimen Type: BLOOD SPECIMENOrdering Facility: [facility] Address:[address] [place], [place] [address]Performed By: #### 08345-7 ####[facility] LABCLIA [id number] [place], [place] [address]IUO (Bld) [#/Vol]6.65 10*3/uL Normal3.70-11.00[facility] on above:Order Comment: Specimen Type: BLOOD SPECIMENOrdering Facility: [facility] Address:[address] [place], [place] [address]Ccgqsawik By: #### 00420-3 ####[facility] LABCLIA [id number] [place], [place] [address]HVRSLNep 75-60-1824BHUJSLOzvxx (SP) Office (HEMASA) ZACH MANUEL ([id number]) 1945 M Date Time Provider Department 02/26/24 [...] mellitus (HCC) Hyperlipidemia Monoclonal gammopathy 11/2002 IgG Gravette Multiple myeloma (HCC) 2002 Ulcerative colitis (HCC) [...] T1 right mid posterolateral (more content not included)...Normal [facility] HospitalComprehensive metabolic 2000 panelon 08-32-2025Mjznpfy [Mass/Vol]3.9 g/dLNormal3.9-4.9CBrecksville VA / [facility] on above:Order Comment: Specimen Type: BLOOD SPECIMENOrdering Facility: [facility] Address:[address] [place], [place] [address]GEOVANNI [place], [place] [address]Twgionoyk By: #### 27985- 8 ####[facility] LABCLIA [id number] [place], [place] [address]DCD [Catalytic activity/Vol]78 U/FGiixka44-159ZpqqqyzsnHarrison Community Hospital on above:Order Comment: Specimen Type: BLOOD SPECIMENOrdering Facility: [facility] Address:[address] [place], [place] [address]Performed By: #### 64191-7 ####[facility] LABCLIA [id number] [place], [place] [address]DDD [Catalytic activity/Vol]8 U/WWdl82-20UcqhzcmavHarrison Community Hospital on above:Order Comment: Specimen Type: BLOOD SPECIMENOrdering Facility: [facility] Address:[address] [place], [place] [address]Performed By: #### 50712- 8 ####[facility] LABCLIA [id number] [facility] [place], [place] [address]Sejey gap [Moles/Vol]6 mmol/LLow8-15[facility] on above:Order Comment: Specimen Type: BLOOD SPECIMENOrdering Facility: [facility] Address:[address] [place], [place] [address]Performed By: #### 24222-6 ####[facility] LABCLIA [id number] [place], [place] [address]YKT [Catalytic activity/Vol]13 U/KEdo11-26EwlnikwszHarrison Community Hospital on above:Order Comment: Specimen Type: BLOOD SPECIMENOrdering Facility: [facility] Address:[address] [place], [place] [address]Performed By: #### 17912-9 ####[facility] LABCLIA [id number] [facility]OSPITALCRUZITOFLAGSTAFF [place] [address] Bilirubin [Mass/Vol]0.8 mg/dLNormal0.2-1.3CBrecksville VA / [facility] on above:Order Comment: Specimen Type: BLOOD SPECIMENOrdering Facility: [facility] Address:[address] [place], [place] [address]Performed By: #### 11233-1 ####[facility] LABCLIA [id number] [place], [place] [address]Ufgdaic [Mass/Vol]8.9 mg/dLNormal8.5-10.2CBrecksville VA / [facility] on above:Order Comment: Specimen Type: BLOOD SPECIMENOrdering Facility: [facility] Address:[address] [place], [place] [address]Performed By: #### 80303-8 ####[facility] LABCLIA [id number] [place], [place] [address]Cfvcexmn [Moles/Vol]103 mmol/XUukamp40-075GxduqrkbmHarrison Community Hospital on above: Order Comment: Specimen Type: BLOOD SPECIMENOrdering Facility: [facility] Address:[address] [place], [place] [address]Performed By: #### 83803- 8 ####[facility] LABCLIA [id number] [place], [place] [address]OF5 [Moles/Vol]30 mmol/NLgpxqk03-93XivagtyetHarrison Community Hospital on above:Order Comment: Specimen Type: BLOOD SPECIMENOrdering Facility: [facility] Address:[address] [place], [place] [address]Performed By: #### 56324-6 ####[facility] LABCLIA [id number] [place], [place] [address]Klhgzwrobi [Mass/Vol]1.70 mg/dL High0.73-1.22[facility] on above:Order Comment: Specimen Type: BLOOD SPECIMENOrdering Facility: [facility] Address:[address] [place], [place] [address]Performed By: #### 57235-4 ####[facility] LABCLIA [id number] [place] [address] Creatinine and Glomerular filtration rate.predicted panel (S/P/Bld)41 mL/min/1.73m???Low>=60[facility] on above:Order Comment: Specimen Type: BLOOD SPECIMENOrdering Facility: [facility] Address:[address] [place], [place] [address]Result Comment: Estimated Glomerular Filtration Rate (eGFR) is calculated using the 2020 CKD-EPI creatinine equation. This equation utilizes serum creatinine, sex, and age as parameters. The creatinine assay has traceable calibration to isotope dilution-mass spectrometry. Refer to KDIGO guidelines for clinical interpretation. In patients with unstable renal function, e.g. those with acute kidney injury, the eGFR may not accurately reflect actual GFR.Performed By: #### 50068-3 ####[facility] LABIA [id number] [place] [address] Glucose [Mass/Vol]175 mg/mFBnoj60-65OfgntkyjoHarrison Community Hospital on above: Order Comment: Specimen Type: BLOOD SPECIMENOrdering Facility: [facility] Address:[address] [place], [place] [address]Result Comment: The [place] Diabetes Association (ADA) provides guidance for cutoff values for fast ing glucose and random glucose. The ADA defines [...] Standards of Medical Care in Diabetes 2016, [place] [employer] Association. Diabetes Care. 2016.39(Suppl 1).Performed By: #### 12327-6 ####[facility] LABCLIA [id number] [place], [place] [address]Ybyidfmrc [Moles/Vol]4.8 mmol/LNormal3.7-5.1CBrecksville VA / [facility] on above:Order Comment: Specimen Type: BLOOD SPECIMENOrdering Facility: [facility] Address:[address] [place] [place] [address]Performed By: #### 61392-4 ####[facility] LABCLIA [id number] [place], [place] [address]Umnznoj [Mass/Vol]6.7 g/dLNormal6.3-8.0[facility] on above:Order Comment: Specimen Type: BLOOD SPECIMENOrdering Facility: [facility] Address:[address] [place], [place] [address]Performed By: #### 85260- 8 ####[facility] LABCLIA [id number] [place], [place] [address]Ucolon [Moles/Vol]139 mmol/LPdccbl352-716RxkokvvxlHarrison Community Hospital on above:Order Comment: Specimen Type: BLOOD SPECIMENOrdering Facility: [facility] Address:[address] [place], [place] [address]Performed By: #### 35441-8 ####[facility] LABCLIA [id number] [place], [place] [address]Wlim nitrogen [Mass/Vol]23 mg/dLNormal9-24[facility] on above:Order Comment: Specimen Type: BLOOD SPECIMENOrdering Facility: [facility] Address:[address] [place], [place] [address]Performed By: #### 65930-1 ####[facility] LABCLIA [id number] [place], [place] [address]GDIBANFHEMVDHD SCREEN, SERUMon 57-82-8925GHDKBVSVLOSYFG (MPA)Atypical restricted bands are present in the IgG and kappa regions. Consistent with IgG kappa monoclonal gammopathy.NormalMount St. [facility] Comment on above:Order Comment: Specimen Type: BLOOD SPECIMENOrdering Facility: [facility] Address:[address] [place] [address] Performed By: #### IFESC ####[facility] LABCLIA [id number] [facility] [place]48[place] [address] [place] AMERICAMPA RESULTM protein is present.AbnormalNo M protein is identified.[facility] Comment on above:Order Comment: Specimen Type: BLOOD SPECIMENOrdering Facility: [facility] Address:[address] [place] [address] Performed By: #### IFESC ####[facility] LABCLIA [id number] [place] [address] [place] AMERICASTAFF REVIEW ([facility])Reviewed by Dr. Joshua SchumacherBrecksville VA / [facility] on above:Order Comment: Specimen Type: BLOOD SPECIMENOrdering Facility: [facility] Address:[address] [place], [place] [address]Performed By: #### IFESC ####[facility] LABCLIA [id number] [place] [address] [place] AMERICAIMMUNOGLOBULINS,IGG,IGA,IGMon 70-29-3585JuD [Mass/Vol]96 mg/fRIcfwcz64-363WbqqgtkukHarrison Community Hospital on above:Order Comment: Specimen Type: BLOOD SPECIMENOrdering Facility: [facility] Address:[address] [place], [place] [address]Performed By: #### SERIMM ####[facility] LABCLIA [id number] [place] [address] [place] AMERICAIgG [Mass/Vol]1109 mg/fKMjwaag208-5538UjsaegtxmHarrison Community Hospital on above:Order Comment: Specimen Type: BLOOD SPECIMENOrdering Facility: [facility] Address:[address] [place], [place] [address]Performed By: #### SERIMM ####[facility] LABCLIA [id number] [place] [address] [place] AMERICAIgM [Mass/Vol]17 mg/kVYjt62-361 [facility] on above:Order Comment: Specimen Type: BLOOD SPECIMENOrdering Facility: [facility] Address:[address] [place], [place] [address]Performed By: #### SERIMM ####[facility] LABCLIA [id number] [place] [address] [place] AMERICAKAPPA/DANIELS,FREE,SERon 07-24-3247Rxlcpwhgdetdmk light chains.kappa.free (S) [Mass/Vol]40.3 mg/LHigh3.3-19.4CBrecksville VA [facility] on above: Order Comment: Specimen Type: BLOOD SPECIMEN [facility] Address: [address] [place], [place] [address]Result Comment: Rarely, increased serum free light chains levels may not be detected or accurately quantified due to prozone phenomenon or in high viscosity samples using this immunoturbidimetric assay. Correlation with other laboratory results and clinical findings is recommended. The Gravette Free Light Chain was performed using the Binding Site Optilite immunoturbidimetric method. Result obtained with different assay methods or kits cannot be used interchangeably.Performed By: #### KLFRS #### [facility] CLIA [id number] [address] [place] [address] [place] AMERICAImmunoglobulin light chains.kappa/Immunoglobulin light chains.lambda (S) [Mass ratio]1.57Normal 0.26-1.65[facility] on above:Order Comment: Specimen Type: BLOOD SPECIMEN [facility] Address: [address] [place], [place] [address]Performed By: #### KLFRS #### [facility] CLIA [id number] [address] [place] [address] [place] AMERICAImmunoglobulin light chains.lambda.free [Mass/Vol]25.6 mg/LNormal5.7-26.3CWay[facility] Comment on above:Order Comment: Specimen Type: BLOOD SPECIMEN [facility] Address: [address] [place], [place] [address]Result Comment: Rarely, increased serum free light chains levels may not be detected or accurately quantified due to prozone phenomenon or in high viscosity samples using this immunoturbidimetric assay. Correlation with other laboratory results and clinical findings is recommended. The Lambda Free Light Chain was performed using the Binding Site Optilite immunoturbidimetric method. Result obtained with different assay methods or kits cannot be used interchangeably.Performed By: #### KLFRS #### [facility] CLIA [id number] [address] [place] [address] [place] [facility]ARD HOSPITALPROTEIN ELECTROPHORESIS SERUM WITH TOÑITO (P)on 52-42-5290Iktcrfn [Mass/Vol]4.08 g/dLNormal3.43-5.[address] [facility] HospitalCombeaumont hospital on above:Order Comment: Specimen Type: BLOOD SPECIMENOrdering Facility: [facility] Address:[address] [place], [place] [address]Performed By: #### [id number] ####[facility] LABIA [id number] [place] [address] [place] AMERICAAlpha 1 globulin Elph [Mass/Vol]0.25 g/dLNormal0.18-0.43[facility] Mary HospitalComment on above:Order Comment: Specimen Type: BLOOD SPECIMENOrdering Facility: [facility] Address:[address] [place], [place] [address]Performed By: #### [id number] ####[facility] LABIA [id number] [place] [address] [place] Alpha 2 globulin Elph [Mass/Vol]0.67 g/dLNormal0.42-0.98[facility] on above:Order Comment: Specimen Type: BLOOD SPECIMENOrdering Facility: [facility] Address:[address] [place], [place] [address]Performed By: #### [id number] ####[facility] LABIA [id number] [place] [address] [place] Beta globulin Elph [Mass/Vol]0.65 g/dLNormal0.61-1.17[facility] Comment on above:Order Comment: Specimen Type: BLOOD SPECIMENOrdering Facility: [facility] Address:[address] [place] [address] Performed By: #### [id number] ####[facility] LABCLIA [id number] [place] [address] [place] COMMENT (SERUM PROT ELECTRO)Monoclonal Protein analysis (immunofixation) is not indicated.[facility] on above:Order Comment: Specimen Type: BLOOD SPECIMENOrdering Facility: [facility] Address:[address] [place], [place] [address]Performed By: #### [id number] ####[facility] LABCLIA [id number] [place] [address] [place] AMERICAGamma globulin Elph [Mass/Vol] 1.05 g/dLNormal0.53-1.51[facility] on above:Order Comment: Specimen Type: BLOOD SPECIMENOrdering Facility: [facility] Address:[address] [place], [place] [address]Performed By: #### [id number] ####[facility] LABIA [id number] [address] STATES OF AMERICAINTERPRETATION COMMENT FOR PROTEIN ELECTROPHORESISSee separate immunofixation report for characterization of monoclonal gammopathy.[facility] Comment on above:Order Comment: Specimen Type: BLOOD SPECIMENOrdering Facility: [facility] Address:[address] [place] [address] Performed By: #### [id number] ####[facility] LABCLIA [id number] [place] [address] [place] M-PROTEIN LOCATIONGamma Fraction 1NormalHarrison Community Hospital on above:Order Comment: Specimen Type: BLOOD SPECIMENOrdering Facility: [facility] Address:[address] [place], [place] [address]Performed By: #### [id number] ####[facility] LABIA [id number] [place] [address] [place] AMERICAProtein Fractions [Interp]An M protein is identified on protein electrophoresis.AbnormalNo definitive M protein is identified on protein electrophoresis.[facility] on above:Order Comment: Specimen Type: BLOOD SPECIMENOrdering Facility: [facility] Address:[address] [place], [place] [address]Performed By: #### [id number] ####[facility] LABCLIA [id number] [place] [address] [place] Protein.monoclonal Elph [Mass/Vol]0.67 g/dLHigh<=0.00[facility] Comment on above:Order Comment: Specimen Type: BLOOD SPECIMENOrdering Facility: [facility] Address:[address] [place] [address] Performed By: #### [id number] ####[facility] LABIA [id number] [place] [address] [place] SPE STAFF REVIEWReviewed by Dr. Joshua White MDNormalCWayne Hospital Comment on above:Order Comment: Specimen Type: BLOOD SPECIMENOrdering Facility: [facility] Address:[address] [place] [address] Performed By: #### [id number] ####[facility] LABIA [id number] [place] [address] [place] Prot SerPl-mCncon [id number] [Mass/Vol]6.3 g/dLNormal6.3-8.0Mount St. Mary HospitalComment on above:Order Comment: Specimen Type: BLOOD SPECIMENOrdering Facility: [facility] Address:[address] [place], [place] [address]Performed By: #### [id number] ####[facility] LABIA [id number] [place] [address] [place] OF AMERICABasic metabolic 2000 panelon [id number] gap [Moles/Vol]9 mmol/L9 - 18 mmol/LCleveland ClinicCalcium [Mass/Vol]9.0 mg/dL8.5 - 10.2 mg/dLLee ClinicChloride [Moles/Vol]102 mmol/L97 - 105 mmol/LCleveland ClinicCO2 [Moles/Vol]27 mmol/L22 - 30 mmol/LCleveland ClinicCreatinine [Mass/Vol]1.52 mg/dLHigh0.73 - 1.22 mg/dLChildren'S Hospital For RehabilitationEstimated Glomerular Filtration Rate47 mL/min/1.73mLow>=60 mL/min/1.73mCleveland ClinicGlucose [Mass/Vol]253 mg/dLHigh 74 - 99 mg/dLChildren'S Hospital For RehabilitationPotassium [Moles/Vol]4.5 mmol/L3.7 - 5.1 mmol/L Lee ClinicSodium [Moles/Vol]138 mmol/L136 - 144 mmol/LCleveland Cambridge Medical CenterUrea nitrogen [Mass/Vol]29 mg/dLHigh9 - 24 mg/dLChildren'S Hospital For RehabilitationCB W Auto Differential panel (Bld)on [id number] (Bld) [#/Vol]0.05 10*3/uL<0.11 k/uLChildren'S Hospital For RehabilitationBasophils/100 WBC (Bld)0.7 %[facility] For RehabilitationDifferential cell count method Nom (Bld)AutoCleveland Cambridge Medical CenterEosinophils (Bld) [#/Vol]0.07 10*3/uL<0.46 k/uLChildren'S Hospital For RehabilitationEosinophils/100 WBC (Bld)1.0 %[facility] Erythrocyte distribution width (RBC) [Ratio]14.0 %11.5 - 15.0 %[facility] Hematocrit (Bld) [Volume fraction]39.5 %39.0 - 51.0 %[facility] Hospital For RehabilitationHemoglobin (Bld) [Mass/Vol]13.7 g/dL13.0 - 17.0 g/dLChildren'S Hospital For RehabilitationImmature granulocytes (Bld) [#/Vol]0.03 10*3/uL<0.10 k/uLChildren'S Hospital For RehabilitationImmature granulocytes/100 WBC (Bld)0.4 %[facility] Hospital For RehabilitationLymphocytes (Bld) [#/Vol]0.82 10*3/uLLow1.00 - 4.00 k/uLChildren'S Hospital For RehabilitationLymphocytes/100 WBC (Bld)11.7 %[facility] CenterH (RBC) [Entitic mass]34.7 uoSijz29.0 - 34.0 pgCleveland Worthington Medical CenterHC (RBC) [Mass/Vol]34.7 g/dL30.5 - 36.0 g/dLChildren'S Hospital For RehabilitationMCV (RBC) [Entitic vol]100.0 fL80.0 - 100.0 fLCleveland ClinicMonocytes (Bld) [#/Vol]1.05 10*3/uLHigh<0.87 k/uLChildren'S Hospital For RehabilitationMonocytes/100 WBC (Bld)15.0 %[facility] Hospital For RehabilitationNeutrophils (Bld) [#/Vol]4.96 10*3/uL1.45 - 7.50 k/uLChildren'S Hospital For RehabilitationNeutrophils/100 WBC (Bld)71.2 %[facility] Hospital For RehabilitationNucleated RBC (Bld) [#/Vol]<0.01 k/uLChildren'S Hospital For RehabilitationNucleated RBC/100 WBC (Bld) [Ratio]0.0 /100 WBCChildren'S Hospital For RehabilitationPlatelet mean volume (Bld) [Entitic vol]9.8 fL9.0 - 12.7 fLCleveland ClinicPlatelets (Bld) [#/Vol]207 10*3/uL150 - 400 k/uLChildren'S Hospital For RehabilitationRBC (Bld) [#/Vol]3.95 10*6/uLLow4.20 - 6.00 m/uL [facility] Hospital For RehabilitationWBC (Bld) [#/Vol]6.98 10*3/uL3.70 - 11.00 k/uLChildren'S Hospital For Rehabilitation PSA, FREE AND TOTAL RATIOon 08-29-2022% Free PSA25.9 %NormalThe [facility] Medical CenterComment on above:Result Comment: The table below lists the probability [...] free PSA for any other population of men.Performed By: #### PSAFREE #### [facility] [address] [place] [address] Dr. Tigre Schafer specific Ag [Mass/Vol]4.4 ng/mLCritically high0.0-4.0The [facility] on above:Result Comment: Alka ECLIA methodology. . According to the [place] [employer], Serum PSA should decrease and [...] of the presence or absence of malignant disease.Performed By: #### PSAFREE #### [facility] [address] [place] [address] Dr. Tigre Peck, Free1.14 ng/mLNormalN/AThWooster Community HospitalCombeaumont hospital on above:Result Comment: Alka ECLIA methodology.Performed By: #### PSAFREE #### [facility] [address] [place] [address] Dr. Tigre Peck, FREE AND TOTAL RATIOon 03-16-2022% Free PSA19.1 %NormalThe [facility] on above:Result Comment: The table below lists the probability [...] free PSA for any other population of men.Performed By: #### A1C #### [facility] [address] [place] [address] Dr. Tigre Peck, Free1.03 ng/mLNormalN/AThWooster Community HospitalCombeaumont hospital on above:Result Comment: Alka ECLIA methodology.Performed By: #### A1C #### [facility] [address] [place] [address] Dr. Tigre GantProstate specific Ag [Mass/Vol]5.4 ng/mLCritically high0.0-4.0The Magruder Hospitalment on above:Result Comment: Alka ECLIA methodology. . According to the [place] [employer], Serum PSA should decrease and [...] of the presence or absence of malignant disease.Performed By: #### A1C #### [facility] [address] [place] [address] Dr. Tigre GantCBC AUTO DIFFon [id number] #0.1 103/ulNormal0.0-0.1The [facility] on above:Performed By: #### CBC #### [facility] [address] [place] [address] Dr. Tigre GantBasophils/100 WBC (Bld)2.6 %Critically high0.2-2.0The [facility] Medical CenterComment on above:Performed By: #### CBC #### [facility] [address] [place] [address] Dr. Landeros ChangEKatelyn #0.4 103/ulNormal0.0-0.7The [facility] Medical CenterComment on above: Performed By: #### CBC #### [facility] [address] [place] [address] Dr. Tigre Miguelosinophils/100 WBC (Bld)7.7 %Critically high0.9-7.0The [facility] on above:Performed By: #### CBC #### [facility] [address] [place] [address] Dr. Tigre Miguelrythrocyte distribution width (RBC) [Ratio]14.6 %Ezphfb20.0-15.0 The Magruder Hospitalment on above:Performed By: #### CBC #### [facility] [address] [address] [address] Tigre GantHematocrit (Bld) [Volume fraction]39.0 %Critically low42.0-54.0 The [facility] Medical CenterComment on above:Performed By: #### CBC #### [facility] [address] [address] [address] Tigre GantHemoglobin (Bld) [Mass/Vol]12.9 g/dLCritically low14.0-18.0The [facility] CenterComment on above:Performed By: #### CBC #### [facility] [address] [address] [address] Tigre GantIG #0.03 10e3/ulNormal0.00-0.03The [facility] Medical CenterComment on above:Performed By: #### CBC #### [facility] [address] [place] [address] Dr. Tigre Gan %0.6 %Critically high0.0-0.5The [facility] Medical CenterComment on above:Performed By: #### CBC #### [facility] [address] [address] [address] Tigre Pereira #1.0 103/ulCritically low1.2-3.8The [facility] Comment on above:Performed By: #### CBC #### [facility] [address] [place] [address] Dr. Tigre Corbinmphocytes/100 WBC (Bld)19.9 %Critically low20.5-60.0The [facility] Medical CenterComment on above:Performed By: #### CBC #### [facility] [address] [address] [address] Tigre GantMANUAL DIFF REQNONormalThe [facility] Medical CenterComment on above: Performed By: #### CBC #### [facility] [address] [address] [address] Tigre Zamudio (RBC) [Entitic mass]33.7 ywBmenry99.9-34.0The [facility] CenterComment on above:Performed By: #### CBC #### [facility] [address] [place] [address] Dr. Tigre LynchHC (RBC) [Mass/Vol]33.1 g/aRXqimbl32.9-35.2The [facility] CenterComment on above:Performed By: #### CBC #### [facility] [address] [place] [address] Dr. Tigre LynchV (RBC) [Entitic vol]101.8 fLCritically high80.0-94.0The [facility] Medical CenterComment on above:Performed By: #### CBC #### [facility] [address] [place] [address] Dr. Tigre Jenkins #0.7 103/ulNormal0.3-0.8The [facility] Medical CenterComment on above:Performed By: #### CBC #### [facility] [address] [place] [address] Dr. Tigre Jeffersocytes/100 WBC (Bld)13.6 %Critically high1.7-12.0The [facility] Medical CenterComment on above:Performed By: #### CBC #### [facility] [address] [place] [address] Dr. Tigre Purdy #2.7 103/ulNormal1.4-6.5The [facility] Medical CenterComment on above:Performed By: #### CBC #### [facility] [address] [place] [address] Dr. Tigre Dickinsonutrophils/100 WBC (Bld)55.6 %Ihzekn47.0-75.0The [facility] Medical CenterComment on above:Performed By: #### CBC #### [facility] [address] [place] [address] Dr. Tigre Araujolet mean volume (Bld) [Entitic vol]10.7 fLNormal9.5-13.5The [facility] Medical CenterComment on above:Performed By: #### CBC #### [facility] [address] [place] [address] Dr. Tigre GantPLT209 103/erKumbxb412-901Flq [facility] CenterComment on above: Performed By: #### CBC #### [facility] [address] [place] [address] Dr. Tigre GantRBC3.83 106/ulCritically low4.70-6.10The [facility] Medical CenterCombeaumont hospital on above:Performed By: #### CBC #### [facility] [address] [place] [address] Dr. Tigre GantWBC4.9 103/ulNormal4.0-11.0The [facility] CenterCombeaumont hospital on above: Performed By: #### CBC #### [facility] [address] [place] [address] Dr. Tigre GantFREE T3on [id number] T32.60 pg/mlLNormal2.18-3.98The [facility] on above:Performed By: #### A1C #### [facility] [address] [place] [address] Dr. Tigre GantGLYCOHEMOGLOBIN A1Con [id number] RECOMMENDATIONSEE BELOWHolzer Health SystemCombeaumont hospital on above:Result Comment: ADA RECOMMENDED LIMIT 4.0 - 6.0 ADA THERAPEUTIC TARGET < 7.0 ACTION SUGGESTED > 7.0Performed By: #### A1C #### [facility] [address] [place] [address] Dr. Tigre GantGlucose [Mass/Vol]189 mg/dLNoGreene Memorial Hospital on above:Performed By: #### A1C #### [facility] [address] [place] [address] Dr. Tigre GantHbA1c (Bld) [Mass fraction]8.2 %Critically high4.5-6.2The [facility] on above:Performed By: #### A1C #### [facility] [address] [place] [address] Dr. Tigre GantLIPID PROFILEon [id number]-HDL RATIO NORMSEE BELOWUK HealthcareCombeaumont hospital on above:Result Comment: 3.3 - 4.4 LOW RISK 4.4 - 7.1 AVERAGE RISK 7.1 - 11.0 MODERATE RISK >11.0 HIGH RISKPerformed By: #### CMP, TSH, LIPID, FT3, T4 #### [facility] [address] [address] [address] Tigre Macedoesterol [Mass/Vol]157 mg/dLNormal<=200[facility] Comment on above:Performed By: #### CMP, TSH, LIPID, FT3, T4 #### [facility] [address] [address] [address] Tigre Macedoesterol in HDL [Mass/Vol]62 mg/dLCritically ynab40-76SqcAvita Health System Ontario HospitalComment on above:Performed By: #### CMP, TSH, LIPID, FT3, T4 #### [facility] [address] [place] [address] Dr. Tigre Fan in LDL [Mass/Vol]62.8 mg/dLNoOhioHealth O'Bleness HospitalComment on above:Performed By: #### CMP, TSH, LIPID, FT3, T4 #### [facility] [address] [place] [address] Dr. Tigre Fan.total/Cholesterol in HDL [Mass ratio]2.5 {ratio} NormalAvita Health System Ontario HospitalComment on above:Performed By: #### CMP, TSH, LIPID, FT3, T4 #### [facility] [address] [place] [address] Dr. Tigre Watson NORMAL> or = 60 mg/dl - LOW CARDIOVASCULAR RISK <40 mg/dl - HIGH CARDIOVASCULAR RISKUK HealthcareComment on above:Performed By: #### CMP, TSH, LIPID, FT3, T4 #### [facility] [address] [place] [address] Dr. Tigre Morse CALC NORMALSEE BELOWUK HealthcareComment on above:Result Comment: <100 mg/dl OPTIMAL 100 - 129 mg/dl NEAR OR ABOVE OPTIMAL 130 - 159 mg/dl BORDERLINE HIGH 160 - 189 mg/dl HIGH >190 mg/dl VERY HIGH Performed By: #### CMP, TSH, LIPID, FT3, T4 #### [facility] [address] [place], [place] [address] Dr. Tigre GantTriglyceride [Mass/Vol]161 mg/dLCritically high<=150The [facility]uder Hospitalment on above:Performed By: #### CMP, TSH, LIPID, FT3, T4 #### [facility] [address] [place] [address] Dr. Tigre GantVLDL CALC32.2 mg/dLNormalThe [facility] CenterComment on above: Performed By: #### CMP, TSH, LIPID, FT3, T4 #### [facility] [address] [place] [address] Dr. Tigre GantPROF 14(COMP METB)on 47-40-2148Ijibfzl [Mass/Vol]3.5 g/dLNormal 3.4-5.0The [facility] CenterComment on above:Performed By: #### CMP, TSH, LIPID, FT3, T4 #### [facility] [address] [place] [address] Dr. Tigre GantAlbumin/Globulin [Mass ratio]1.1 {ratio}NormalThe [facility] Medical CenterComment on above:Performed By: #### CMP, TSH, LIPID, FT3, T4 #### [facility] [address] [place] [address] Dr. Tigre Maddox [Catalytic activity/Vol]67 U/SJowpys66-941Hsu [facility] CenterComment on above:Performed By: #### CMP, TSH, LIPID, FT3, T4 #### [facility] [address] [place] [address] Dr. Tigre Dooley [Catalytic activity/Vol]17 U/IKslujg77-42Loj [facility] CenterComment on above:Performed By: #### CMP, TSH, LIPID, FT3, T4 #### [facility] [address] [place] [address] Dr. Tigre Maldonado gap [Moles/Vol]14.6 mmol/LNormalThe [facility] on above:Performed By: #### CMP, TSH, LIPID, FT3, T4 #### [facility] [address] [place] [address] Dr. Yilan ChangAST [Catalytic activity/Vol]16 U/GEczkux56-07Amh [facility] CenterComment on above:Performed By: #### CMP, TSH, LIPID, FT3, T4 #### [facility] [address] [place] [address] Dr. Tigre GantBilirubin [Mass/Vol]1.2 mg/dLCritically high0.2-1.0The [facility] CenterComment on above:Performed By: #### CMP, TSH, LIPID, FT3, T4 #### [facility] [address] [place] [address] Dr. Tigre GantCalcium [Mass/Vol]7.8 mg/dLCritically low8.5-10.1The [facility] CenterComment on above:Performed By: #### CMP, TSH, LIPID, FT3, T4 #### [facility] [address] [place] [address] Dr. Tigre GantChloride [Moles/Vol]106 mmol/MWdswem05-088Kew [facility] Comment on above:Performed By: #### CMP, TSH, LIPID, FT3, T4 #### [facility] [address] [place] [address] Dr. Tigre GantCO2 [Moles/Vol]26.5 mmol/PDwcqcz60.0-32.0The [facility] Comment on above:Performed By: #### CMP, TSH, LIPID, FT3, T4 #### [facility] [address] [place] [address] Dr. Tigre GantCreatinine [Mass/Vol]1.48 mg/dLCritically high0.70-1.30The [facility] on above:Performed By: #### CMP, TSH, LIPID, FT3, T4 #### [facility] [address] [place] [address] Dr. Landeros ChangEGFR-AF GAXLONRB77 mL/min/1.52o9Unbsfptcps low>=60The [facility] CenterComment on above:Performed By: #### CMP, TSH, LIPID, FT3, T4 #### [facility] [address] [place] [address] Dr. Tigre MiguelGFR-NON AF TXMBKWDQ21 mL/min/1.29z2Vztlargxax low>=60The [facility] CenterComment on above:Performed By: #### CMP, TSH, LIPID, FT3, T4 #### [facility] [address] [place] [address] Dr. Tigre GantGlobulin (S) [Mass/Vol]3.3 g/dLNormalThe [facility] CenterComment on above:Performed By: #### CMP, TSH, LIPID, FT3, T4 #### [facility] [address] [place] [address] Dr. Tigre GantGlucose [Mass/Vol]99 mg/vCIptwly04-485LwsAv[facility] Comment on above:Performed By: #### CMP, TSH, LIPID, FT3, T4 #### [facility] [address] [place] [address] Dr. Tigre GantPotassium [Moles/Vol]4.1 mmol/LNormal3.5-5.1The [facility] Comment on above:Performed By: #### CMP, TSH, LIPID, FT3, T4 #### [facility] [address] [place] [address] Dr. Tigre GantProtein [Mass/Vol]6.8 g/dLNormal6.4-8.2The [facility] Comment on above:Performed By: #### CMP, TSH, LIPID, FT3, T4 #### [facility] [address] [place] [address] Dr. Tigre GantSodium [Moles/Vol]143 mmol/AIqrevo785-791Ksw [facility] Comment on above:Performed By: #### CMP, TSH, LIPID, FT3, T4 #### [facility] [address] [place] [address] Dr. Tigre GantUrea nitrogen [Mass/Vol]17.0 mg/dLNormal7.0-18.0The [facility] CenterComment on above:Performed By: #### CMP, TSH, LIPID, FT3, T4 #### [facility] [address] [place] [address] Dr. Tigre GantUrea nitrogen/Creatinine [Mass ratio]11.5 mg/mgNormalThe [facility] CenterComment on above:Performed By: #### CMP, TSH, LIPID, FT3, T4 #### [facility] [address] [place] [address] Dr. Tigre GantT4on 08-21-2494H0 [Mass/Vol]6.30 ug/dLNormal4.50-12.10The [facility] CenterCombeaumont hospital on above:Performed By: #### CMP, TSH, LIPID, FT3, T4 #### [facility] [address] [place] [address] Dr. Tigre GantTSHon 24-98-8288OWK9.904 uIU/mLCritically high0.358-3.740The [facility]uder Hospitalment on above:Performed By: #### CMP, TSH, LIPID, FT3, T4 #### [facility] [address] [place] [address] Dr. Tigre LopezA, FREE AND TOTAL RATIOon 12-21-2021% Free PSA24.5 %NormalThe [facility] on above:Result Comment: The table below lists the probability of prostate cancer for men with non-suspicious RADHA results and total PSA between 4 and 10 ng/mL, by patient age (Judah et al, SELEEN 1998, 279:1542). % Free PSA 50-64 yr 65-75 yr 0.00-10.00% 56% 55% 10.01-15.00% 24% 35% 15.01-20.00% 17% 23% 20.01-25.00% 10% 20% >25.00% 5% 9% Please note: Judah et al did not make specific recommendations regarding the use of percent free PSA for any other population of men.Performed By: #### A1C #### [facility] [address] [place] [address] Dr. Tigre GantProstate specific Ag [Mass/Vol]4.2 ng/mLCritically high0.0-4.0The [facility] on above:Result Comment: Alka ECLIA methodology. . According to the [place] [employer], Serum PSA should decrease and [...] of the presence or absence of malignant disease.Performed By: #### A1C #### [facility] [address] [place] [address] Dr. Tigre Peck, Free1.03 ng/mLNormalN/AThe [facility] CenterComment on above:Result Comment: Alka ECLIA methodology.Performed By: #### A1C #### [facility] [address] [place] [address] Dr. Tigre DangeloOSTRIDIUM DIFFICILE PCRon 09-13-2021 difficile Toxin Gene SHOSHANA NegativeNormalNegativeThe [facility] CenterComment on above:Performed By: #### A1C #### [facility] [address] [place] [address] Dr. Tigre Tan PANEL (PCR)on [id number] F 40/41Not detectedNormal NOT DETECTEDThe [facility] CenterComment on above:Performed By: #### GIPANEL #### [facility] [address] [place] [address] Dr. Tigre GantAstrovirusNot detectedNormalNOT DETECTEDThe [facility] Comment on above:Performed By: #### GIPANEL #### [facility] [address] [place] [address] Dr. Tigre Deng. Diff toxin A/BNot detectedNormalNOT DETECTEDThe [facility] CenterComment on above:Performed By: #### GIPANEL #### [facility] [address] [place] [address] Dr. Tigre ReyespylobacterNot detectedNormalNOT DETECTEDThe [facility] Comment on above:Performed By: #### GIPANEL #### [facility] [address] [place] [address] Dr. Tigre GantCryptosporidiumNot detectedNormalNOT DETECTEDThe Taye HospitalComment on above:Performed By: #### GIPANEL #### [facility] [address] [address] [address] Tigre Murphy. CayetanensisNot detectedNormalNOT DETECTEDThe [facility] CenterComment on above:Performed By: #### GIPANEL #### [facility] [address] [address] [address] Tigre Flor Coli N363Alk ApplicableNormalNot ApplicableThe [facility] CenterComment on above:Performed By: #### GIPANEL #### [facility] [address] [address] [address] Tigre Flor histolyticaNot detectedNormalNOT DETECTEDThe [facility] Comment on above:Performed By: #### GIPANEL #### [facility] [address] [address] [address] Tigre MiguelAECNot detectedNormalNOT DETECTEDThe [facility] CenterComment on above:Performed By: #### GIPANEL #### [facility] [address] [address] [address] Tigre MiguelIECNot detectedNormalNOT DETECTEDThe [facility] CenterComment on above:Performed By: #### GIPANEL #### [facility] [address] [address] [address] Tigre MiguelPECNot detectedNormalNOT DETECTEDThe [facility] CenterComment on above:Performed By: #### ARLINANEL #### [facility] [address] [address] [address] Tigre MiguelTECNot detectedNormalNOT DETECTEDThe [facility] CenterComment on above:Performed By: #### GIPANEL #### [facility] [address] [address] [address] Tigre Vale. LambliaNot detectedNormalNOT DETECTEDThe [facility] Comment on above:Performed By: #### GIPANEL #### [facility] [address] [address] [address] Tigre Virk CONTROLSPASSEDNormalThe [facility] CenterComment on above:Performed By: #### GIPANEL #### [facility] [address] [address] [address] Tigre Morton OLGA HEADERGI [facility] Comment on above:Performed By: #### MARYLUL #### [facility] [address] [address] [address] Tigre Suarez ECOLIGI PANEL DIARRHEAGENIC E.COLI / SHIGELLAUK HealthcareComment on above:Performed By: #### BOBBY #### [facility] [address] [address] [address] Tigre Suarez INFOSEE [facility] - AndersonComment on above: Result Comment: EAEC- Enteroaggregative E. Coli EPEC- Enteropathogenic E. Coli ETEC- Enterotoxigenic E. Coli lt/st STEC- Shigella-like toxin-producing E. Coli stx1/stx2 EIEC- Shigella/Enteroinvasive E. ColiPerformed By: #### BOBBY #### [facility] [address] [place] [address] Dr. Tig[address] Su[address]ESGI [address] [facility] PARASITESUK Healthcare Comment on above:Performed By: #### BOBBY #### [facility] [facility] [address] [place] [address] Dr. Tigre Suarez VIRUSGI [facility]als Geauga Medical CenterComment on above:Performed By: #### BOBBY #### [facility] [address] [address] [address] Tigre Harprovirus GI/GIINot detectedNormalNOT DETECTEDThe [facility] CenterComment on above:Performed By: #### BOBBY #### [facility] [address] [address] [address] Tigre Sanchez. ShigelloidesNot detectedNormalNOT DETECTEDThe [facility] CenterComment on above:Performed By: #### BOBBY #### [facility] [address] [address] [address] Tigre GantRotavirus ANot detectedNormalNOT DETECTEDThe [facility] Comment on above:Performed By: #### GIPANEL #### [facility] [address] [address] [address] Tigre GantSalmonellaNot detectedNormalNOT DETECTEDThe [facility] Comment on above:Performed By: #### GIPANEL #### [facility] [address] [address] [address] Tigre GantSapovirusNot detectedNormalNOT DETECTEDThe [facility] Comment on above:Performed By: #### GIPANEL #### [facility] [address] [address] [address] Tigre GantSTECNot detectedNormalNOT DETECTEDThe [facility] CenterComment on above:Performed By: #### GIPANEL #### [facility] [address] [address] [address] Tigre BellbrioNot detectedNormalNOT DETECTEDThe [facility] CenterComment on above:Performed By: #### GIPANEL #### [facility] [address] [address] [address] Tigre Pratherio CholeraNot detectedNormalNOT DETECTEDAv[facility] Health [facility] Comment on above:Performed By: #### GIPANEL #### [facility] [address] [address] [address] Tigre Morton. EnterocoliticaNot detectedNormalNOT DETECTEDThe [facility] CenterComment on above:Performed By: #### GIPANEL #### [facility] [address] [address] [address] Tigre GantXR lumbar spine 6V w bendingon 61-61-6634ES lumbar spine 6V w bendingOH[facility] [place] [address] [place] [address] XRay Report Signed Patient: Zach Manuel MR#: [id number] 9 : 1945 Acct:[id number] Age/Sex: 76 / M ADM Date: 05/05/21 Loc: XD [facility]: [facility] Dr: Kosta Harper MD Ordering Provider: [...] Kumar Jr., M.D.05/05/2021 2:07 PM Dictation Location: [place] [address] Transcribed By: [facility] 05/05/21 1407 Dictated By: Carson Kumar Jr, MD 05/05/21 1355 Signed By: 05/05/21 1401[facility] RIGHT 2 [facility] [id number] RIGHT 2 [facility] Department of Radiology [address] [place] [phone] Patient Name: ZACH MANUEL : 1945 [...] RIGHT 2 VWS FEMUR RIGHT 2 VWS 05/16/2019 10:28 AM EDT SIGNS AND SYMPTOMS: [...] hip Electronically signed by:Jazmín Hernandez. Transcribed by: [email or web address], User Resident: Electronically Signed by: JAZMÍN HERNANDEZ @ 05/16/2019 03:38 [facility]als Health SystemComment on above:Order Comment: , , , Ordering Provider - ZHENG SCOTT PA-C , FEMUR RIGHT 2 VWSon [id number] RIGHT 2 [facility] Department of Radiology [address] [place] [address] Patient Name: ZACH MANUEL : [...] RIGHT 2 VWS FEMUR RIGHT 2 VWS 02/13/2019 3:27 PM [...] healing. Electronically signed by:Jazmín Hernandez. Transcribed by: [email or web address], User Resident: Electronically Signed by: JAZMÍN HERNANDEZ @ 02/13/2019 05:05 [facility] Hospitals Health SystemComment on above:Order Comment: , , , Ordering Provider - ZHENG SCOTT PA-C , FEMUR RIGHT 2 [facility] [id number] RIGHT 2 [facility] Department of Radiology [address] [place] [phone] Patient Name: ZACH MANUEL : 1945 Sex: M Age: Race: White Pt. Location: Patient Status: O Ordered Date: 01/09/2019 10:10:00 AM Completed Date: 01/09/2019 10:15 AM Requesting Provider: JACQUELINE CROSS Attending Provider: JACQUELINE CROSS Report Copy To: HANNA MATHIAS Signs & Symptoms: S72.21XD Displ subtrochnt fx r femur, subs for clos fx w routn heal I10 History: Jay Comments: , , , Ordering Provider - JACQUELINE CROSS PA-C , Exam: FEMUR RIGHT 2 [facility] FEMUR RIGHT 2 VWS 01/09/2019 10:15 [...] reaction Electronically signed by:Soila Morris. Transcribed by: [email or web address], User Resident: Electronically Signed by: SOILA MORRIS @ 01/09/2019 12:25 [facility]als Health SystemComment on above:Order Comment: , , , Ordering Provider - JACQUELINE CROSS PA-C , FEMUR RIGHT 2 VWSon 12-10-2018 FEMUR RIGHT 2 [facility] Department of Radiology [address] [place] [phone] Patient Name: ZACH MANUEL : 1945 [...] fracture Electronically signed by:Soila Morris. Transcribed by: [id number], User Resident: Electronically Signed by: SOILA MORRIS @ 12/10/2018 03:21 [facility] Hospitals Health SystemComment on above:Order Comment: , Views (X-RAY, FEMUR): Radiologic Protocol , Weight Bearing?: Y , Views (X-RAY, FEMUR): Radiologic Protocol , Weight Bearing?: Y , , , Ordering Provider - ZHENG SCOTT PA-C , VITAMIN D 25-HYDROXYon 85-08-2536NEMUYXT D 25-OH40.2 ng/mL Jsyyhw32.0-80.0The [facility] HospitalComment on above:Result Comment: >80.0 Toxicity possiblePerformed By: #### [id number] #### [address] [address], [facility] CENTERFEMUR RIGHT 2 [facility] [id number] RIGHT 2 [facility] Department of Radiology [address] [place] [phone] Patient Name: ZACH MANUEL : 1945 [...] healing Electronically signed by:Soila Morris. Transcribed by: [email or web address], User Resident: Electronically Signed by: SOILA MORRIS @ 10/29/2018 02:17 [facility] Hospitals Health SystemComment on above:Order Comment: , , , Ordering Provider - ZHENG SCOTT PA-C , FEMUR RIGHT 2 [facility] [id number] RIGHT 2 [facility] Department of Radiology [address] [place] [phone] Patient Name: ZACH MANUEL : 1945 Sex: M Age: Race: White Pt. Location: Patient Status: O Ordered Date: 09/20/2018 12:45:00 PM Completed Date: 09/20/2018 12:45 PM Requesting Provider: ZHENG SCOTT Attending Provider: JACQUELINE CROSS Report Copy To: HANNA MATHIAS Signs & Symptoms: S72.21XD Displ subtrochnt fx r femur, subs for clos fx w routn heal I10 History: Jay Comments: , Views (X-RAY, FEMUR): AP, Lateral , Views (X-RAY, FEMUR): AP, Lateral , , , Ordering Provider - ZHENG SCOTT PA-C , Exam: FEMUR RIGHT 2 [facility] FEMUR RIGHT 2 [facility] 09/20/2018 12:49 PM EST SIGNS AND [...] bridging Electronically signed by:Soila Morris. Transcribed by: [email or web address], User Resident: Electronically Signed by: SOILA MORRIS @ 09/20/2018 01:08 [facility]als Health SystemComment on above:Order Comment: , Views (X-RAY, FEMUR): AP, Lateral , Views (X-RAY, FEMUR): AP, Lateral , , , Ordering Provider - ZHENG SCOTT PA-C , FEMUR RIGHT 2 [facility] [id number] RIGHT 2 [facility]WSUniversshel[facility] Department of Radiology [address] [place] [address] Patient Name: ZACH MANUEL : 1945 Sex: M Age: Race: White Pt. Location: Patient Status: O Ordered Date: 08/23/2018 12:50:00 PM Completed Date: 08/23/2018 12:57 PM Requesting Provider: ZHENG SCOTT Attending Provider: ZHENG SCOTT Report Copy To: HANNA MATHIAS Signs & Symptoms: S72.21XD Displ subtrochnt fx r femur, subs for clos fx w routn heal I10 History: Jay Comments: , Views (X-RAY, FEMUR): AP, Lateral , Views (X-RAY, FEMUR): AP, Lateral , , , Ordering Provider - ZHENG MAHAJAN-Hayley , Exam: FEMUR RIGHT 2 S FEMUR RIGHT 2 S 08/23/2018 12:57 PM [...] disease Electronically signed by:Soila Morris. Transcribed by: [email or web address], User Resident: Electronically Signed by: SOILA MORRIS @ 08/23/2018 02:15 [facility] Hospitals Health SystemComment on above:Order Comment: , Views (X-RAY, FEMUR): AP, Lateral , Views (X-RAY, FEMUR): AP, Lateral , , , Ordering Provider - ZHENG SCOTT PA-C , FEMUR RIGHT 2 [facility] [id number] RIGHT 2 [facility] Department of Radiology [address] [place] [phone] Patient Name: ZACH MANUEL : 1945 Sex: M Age: Race: White Pt. Location: Patient Status: Ordered Date: 07/25/2018 10:10:00 AM Completed Date: 07/25/2018 10:16 AM Requesting Provider: JACQUELINE CROSS Attending Provider: Report Copy To: Signs & Symptoms: S72.21XA Displaced subtrochanteric fracture of right femur, init I10 History: Jay Comments: , , , Ordering Provider - JACQUELINE AMERICA PA-C , Exam: FEMUR RIGHT 2 VWS FEMUR RIGHT 2 VWS 07/25/2018 10:16 AM [...] above Electronically signed by:Soila Morris. Transcribed by: [email or web address], User Resident: Electronically Signed by: SOILA MORRIS @ 07/25/2018 02:02 PMNormalOhio State Harding HospitalComment on above:Order Comment: , , , Ordering Provider - JACQUELINE CROSS PA-C , BASIC METABOLIC PANELon 57-43-9648Qxqxfbk [Mass/Vol]8.2 mg/dLLow8.6-10.3The [facility] HospitalComment on above:Order Comment: No: Do not add to previous drawPerformed By: #### [id number] #### [facility] [address] [place] [address], USAChloride [Moles/Vol]100 mmol/URsqfeu34-984Evh [facility] HospitalComment on above:Order Comment: No: Do not add to previous drawPerformed By: #### [id number] #### [facility] [address] [place] [address], USACO2 [Moles/Vol]25 mmol/OBscyfs02-20Dks [facility] HospitalComment on above:Order Comment: No: Do not add to previous draw Performed By: #### [id number] #### [facility] [address] [place] [address], USACreatinine [Mass/Vol]1.11 mg/dLNormal0.70-1.30The [facility] HospitalComment on above:Order Comment: No: Do not add to previous drawPerformed By: #### 25656 #### [facility] [address] [place] [address], USAGFR/1.73 sq M predicted among blacks MDRD (S/P/Bld) [Vol rate/Area]mL/min/{1.73_m2}Normal>60The [facility] Comment on above:Order Comment: No: Do not add to previous drawResult Comment: Calculation may not be valid for patients over 70 yearsPerformed By: #### [id number] #### [facility] [address] [place] [address], USAGFR/1.73 sq M predicted among non-blacks MDRD (S/P/Bld) [Vol rate/Area]mL/min/{1.73_m2}Normal>60The [facility] Comment on above:Order Comment: No: Do not add to previous drawResult Comment: Calculation may not be valid for patients over 70 yearsPerformed By: #### 66179 #### [facility] [address] [place] [address], USAGlucose [Mass/Vol]243 mg/hDUoql89-752Sib [facility] HospitalComment on above:Order Comment: No: Do not add to previous drawPerformed By: #### 26148 #### [facility] [address] [place] [address], USAPotassium [Moles/Vol]3.7 mmol/LNormal3.5-5.1The [facility] HospitalComment on above:Order Comment: No: Do not add to previous drawPerformed By: #### 10228 #### [facility] [address] [place] [address], USASodium [Moles/Vol]131 mmol/UIsu436-649Usw [facility] HospitalComment on above:Order Comment: No: Do not add to previous drawPerformed By: #### 05804 #### [facility] [address] [place] [address], USAUrea nitrogen [Mass/Vol]18 mg/dLNormal7-25The [facility] HospitalComment on above:Order Comment: No: Do not add to previous drawPerformed By: #### 28761 #### [facility] [address] [place] [address], USACBC COMPLETE BLOOD COUNTon 34-73-9433Pvcdpmllmhu distribution width (RBC) [Ratio]12.4 %Cnmctr93.5-15.0The [facility] HospitalComment on above:Order Comment: No: Do not add to previous draw Performed By: #### 50378 #### [facility] [address] [place] [address], USAHematocrit (Bld) [Volume fraction]25.4 %Low39.0-50.0The [facility] HospitalComment on above:Order Comment: No: Do not add to previous drawPerformed By: #### 87131 #### [facility] [address] [place] [place] [address], USAHemoglobin (Bld) [Mass/Vol]8.6 g/dLLow13.0-17.0The [facility] [place] [facility] HospitalComment on above:Order Comment: No: Do not add to previous drawPerformed By: #### 63518 #### [facility] [address] [place] [address], [facility] MEDICAL CENTERIMM PLATELET FRAC5.2 %Normal0.8-6.3The [facility] [place] [facility] HospitalComment on above:Order Comment: No: Do not add to previous draw Performed By: #### 62783 #### [facility] [address] [place] [address], [facility] (RBC) [Entitic mass]31.4 elVdodrs56.0-33.0The [facility] [place] [facility] HospitalComment on above:Order Comment: No: Do not add to previous drawPerformed By: #### 03458 #### [facility] [address] [place] [address], [facility] (RBC) [Mass/Vol]33.9 g/zDTzpjux30.0-35.0The [facility] HospitalComment on above:Order Comment: No: Do not add to previous drawPerformed By: #### 55894 #### [facility] [address] [place] [address], [facility] (RBC) [Entitic vol]92.7 fNPecmld90.0-98.0The [facility] [place] [facility] HospitalComment on above:Order Comment: No: Do not add to previous drawPerformed By: #### 26367 #### [facility] [address] [place] [place] [address], USANucleated RBC/100 WBC (Bld) [Ratio]0 %Normal0-0The [facility] HospitalComment on above:Order Comment: No: Do not add to previous drawPerformed By: #### 82420 #### [facility] [address] [place] [place] [address], USAPLAT AXE384 10*3/zTWhq549-466Ytr [facility] HospitalComment on above:Order Comment: No: Do not add to previous draw Performed By: #### 94764 #### [facility] [address] [place] [address], USARBC (Bld) [#/Vol]2.74 10*6/uLLow4.20-5.70The [facility] HospitalComment on above:Order Comment: No: Do not add to previous drawPerformed By: #### 33483 #### [facility] [address] [place] [address], USAWBC (Bld) [#/Vol]6.87 10*3/uLNormal4.00-10.60The [facility] HospitalComment on above:Order Comment: No: Do not add to previous drawPerformed By: #### 21830 #### [facility] [address] [place], [place] [address], USAPOC GLUCOSE LABon 49-65-7427Nzvalip [Mass/Vol]281 mg/dLHigh 70-100The [facility] HospitalComment on above:Performed By: #### 93298 #### [facility] [address] [place], [place] [address], USAGlucose [Mass/Vol]250 mg/zPSnwf27-236Xfo [facility] HospitalComment on above:Performed By: #### 68599, 21277 #### [facility] [address] [place] [address], USAGlucose [Mass/Vol]240 mg/nDHtld31-083Nvj [facility] HospitalComment on above:Performed By: #### 68591, 70243 #### [facility] [address] [place], [place] [address], USABASIC METABOLIC PANELon 23-77-5724Zfssvdz [Mass/Vol]8.0 mg/dLLow8.6-10.3The [facility] HospitalComment on above:Order Comment: No: Do not add to previous drawPerformed By: #### 35208, 29838 #### [facility] [address] [place] [address], USAChloride [Moles/Vol]101 mmol/DLpqwck90-139Hha [facility] HospitalComment on above:Order Comment: No: Do not add to previous drawPerformed By: #### 84857, 80290 #### [facility] [address] [place] [address], USACO2 [Moles/Vol]25 mmol/BLmnmce94-14Fhm [facility] HospitalComment on above:Order Comment: No: Do not add to previous draw Performed By: #### 16998, 63274 #### [facility] [address] [place] [address], USACreatinine [Mass/Vol]1.23 mg/dLNormal0.70-1.30The [facility] HospitalComment on above:Order Comment: No: Do not add to previous drawPerformed By: #### 54257, 10859 #### [facility] [address] [place] [address], USAGFR/1.73 sq M predicted among blacks MDRD (S/P/Bld) [Vol rate/Area]mL/min/{1.73_m2}Normal>60The [facility] Comment on above:Order Comment: No: Do not add to previous drawResult Comment: Calculation may not be valid for patients over 70 yearsPerformed By: #### 35813, 22769 #### [facility] [address] [place] [address], USAGFR/1.73 sq M predicted among non-blacks MDRD (S/P/Bld) [Vol rate/Area]58 ml/min/1.73sq mAbnormal>60The [facility] HospitalComment on above:Order Comment: No: Do not add to previous drawResult Comment: Calculation may not be valid for patients over 70 yearsPerformed By: #### 06341, 71818 #### [facility] [address] [place] [address], USAGlucose [Mass/Vol]207 mg/uAKbro42-656Lio [facility] HospitalComment on above:Order Comment: No: Do not add to previous drawPerformed By: #### 05864, 60694 #### [facility] [address] [place] [address], USAPotassium [Moles/Vol]3.7 mmol/LNormal3.5-5.1The [facility] HospitalComment on above:Order Comment: No: Do not add to previous drawPerformed By: #### 96696, 95591 #### [facility] [address] [place] [address], USASodium [Moles/Vol]130 mmol/JRxk416-067Agm [facility] HospitalComment on above:Order Comment: No: Do not add to previous drawPerformed By: #### 83347, 64447 #### [facility] [address] [place] [address], USAUrea nitrogen [Mass/Vol]16 mg/dLNormal7-25The [facility] HospitalComment on above:Order Comment: No: Do not add to previous drawPerformed By: #### 08655, 21827 #### [facility] [address] [place] [address], [facility] MEDICAL CENTERCBC W/DIFFon 23-59-1430GHN BASOPHILS0.0 10*3/uLNormal 0.0-0.2The [facility] HospitalComment on above:Order Comment: No: Do not add to previous drawPerformed By: #### 96972, 43745 #### [facility] [address] [place] [address], USAABS IMM GRANS0.1 10*3/uLNormal0.0-0.2The [facility] HospitalComment on above:Order Comment: No: Do not add to previous drawPerformed By: #### 82261, 31906 #### [facility] [address] [place] [address], [facility] MEDICAL CENTERABS NEUTROPHILS7.6 10*3/uLNormal1.6-7.6The [facility] HospitalComment on above:Order Comment: No: Do not add to previous drawPerformed By: #### 38893, 62633 #### [facility] [address] [place] [address], USABasophils/100 WBC (Bld)0.3 %Normal0.0-1.0The [facility] HospitalComment on above:Order Comment: No: Do not add to previous drawPerformed By: #### 36179, 97871 #### [facility] [address] [facility] [place] [address], USAEosinophils (Bld) [#/Vol]0.1 10*3/uLNormal0.0-0.5The [facility] HospitalComment on above:Order Comment: No: Do not add to previous drawPerformed By: #### 80335, 63802 #### [facility] [address] [place] [place] [address], USAEosinophils/100 WBC (Bld)1.6 %Normal0.0-6.0The [facility] HospitalComment on above:Order Comment: No: Do not add to previous drawPerformed By: #### 60590, 94280 #### [facility] [address] [facility] [place] [address], USAErythrocyte distribution width (RBC) [Ratio]12.5 %Normal 11.5-15.0The [facility] HospitalComment on above:Order Comment: No: Do not add to previous drawPerformed By: #### 53475, 46113 #### [facility] [address] [facility] [place] [address], USAHematocrit (Bld) [Volume fraction]26.0 %Low39.0-50.0The [facility] HospitalComment on above:Order Comment: No: Do not add to previous drawPerformed By: #### 60376, 16856 #### [facility] [address] [facility] [place] [address], USAHemoglobin (Bld) [Mass/Vol]8.8 g/dLLow13.0-17.0The [facility] HospitalComment on above:Order Comment: No: Do not add to previous drawPerformed By: #### 49082, 21184 #### [facility] [address] [place] [address], USAIMM PLATELET FRAC4.5 %Normal0.8-6.3The [facility] HospitalComment on above:Order Comment: No: Do not add to previous draw Performed By: #### 06575, 81285 #### [facility] [address] [place] [address], USAIMMATURE GRANS0.6 %Normal0.0-1.0The [facility] HospitalComment on above:Order Comment: No: Do not add to previous draw Performed By: #### 63201, 17133 #### [facility] [address] [place] [address], USALymphocytes (Bld) [#/Vol]0.2 10*3/uLLow1.2-4.0The [facility] HospitalComment on above:Order Comment: No: Do not add to previous drawPerformed By: #### 84917, 63471 #### [facility] [address] [place] [address], USALymphocytes/100 WBC (Bld)2.1 %Low20.0-45.0The [facility] HospitalComment on above:Order Comment: No: Do not add to previous drawPerformed By: #### 40749, 60989 #### [facility] [address] [place] [address], USAMCH (RBC) [Entitic mass]31.7 yjTfaztr33.0-33.0The [facility] HospitalComment on above:Order Comment: No: Do not add to previous drawPerformed By: #### 96239, 09054 #### [facility] [address] [place] [address], [facility] MEDICAL CENTERMCHC (RBC) [Mass/Vol]33.8 g/gFOlkrcf13.0-35.0The [facility] HospitalComment on above:Order Comment: No: Do not add to previous drawPerformed By: #### 18233, 43417 #### [facility] [address] [place] [address], [facility] MEDICAL CENTERMCV (RBC) [Entitic vol]93.5 lVXeljig29.0-98.0The [facility] HospitalComment on above:Order Comment: No: Do not add to previous drawPerformed By: #### 70931, 97298 #### [facility] [address] [place] [address], USAMonocytes (Bld) [#/Vol]0.6 10*3/uLNormal0.1-1.0The [facility] HospitalComment on above:Order Comment: No: Do not add to previous drawPerformed By: #### 66653, 87081 #### [facility] [address] [place] [address], USAMONOS7.1 %Normal5.0-12.0The [facility] HospitalComment on above:Order Comment: No: Do not add to previous drawPerformed By: #### 10187, 75561 #### [facility] [address] [place] [address], USANeutrophils/100 WBC (Bld)88.3 %High40.0-72.0The [facility] HospitalComment on above:Order Comment: No: Do not add to previous drawPerformed By: #### 91876, 32726 #### [facility] [address] [place] [address], USANucleated RBC/100 WBC (Bld) [Ratio]0 %Normal0-0The [facility] HospitalComment on above:Order Comment: No: Do not add to previous drawPerformed By: #### 67090, 63711 #### [facility] [address] [place] [address], USAPLAT DDA992 10*3/yWAra926-849Myh [facility] HospitalComment on above:Order Comment: No: Do not add to previous draw Performed By: #### 70483, 35368 #### [facility] [address] [place] [address], USARBC (Bld) [#/Vol]2.78 10*6/uLLow4.20-5.70The [facility] HospitalComment on above:Order Comment: No: Do not add to previous drawPerformed By: #### 76384, 17584 #### [facility] [address] [place] [address], USAWBC (Bld) [#/Vol]8.62 10*3/uLNormal4.00-10.60The [facility] HospitalComment on above:Order Comment: No: Do not add to previous drawPerformed By: #### 32810, 75006 #### [facility] [address] [place] [address], USAPOC GLUCOSE LABon 57-36-4056Rcjisfz [Mass/Vol]281 mg/dLHigh 70-100The [facility] [place] [facility] HospitalComment on above:Performed By: #### 78643, 48246 #### [facility] [address] [place] [address], USAGlucose [Mass/Vol]305 mg/qFFmds67-168Lrh [facility] [place] [facility] HospitalComment on above:Performed By: #### 09318, 99915 #### [facility] [address] [place] [address], USAGlucose [Mass/Vol]198 mg/tBXkcj80-919Iwy [facility] [place] [facility] HospitalComment on above:Performed By: #### 72629, 23145 #### [facility] [address] [place] [address], USAGlucose [Mass/Vol]227 mg/oEGtdj41-707Boh [facility] [place] [facility] HospitalComment on above:Performed By: #### 14223, 07664 #### [facility] [address] [place] [address], USABASIC METABOLIC PANELon 09-40-4500Ohzxhwr [Mass/Vol]8.3 mg/dLLow8.6-10.3The [facility] [place] [facility] HospitalComment on above:Order Comment: UnknownPerformed By: #### 01054, 06077 #### [facility] [address] [place] [address], USAChloride [Moles/Vol]105 mmol/XOcoxam84-007Rcm [facility] [place] [facility] HospitalComment on above:Order Comment: UnknownPerformed By: #### 92666, 70281 #### [facility] [address] [place] [address], USACO2 [Moles/Vol]24 mmol/SCcobrx66-41Nua [facility] [place] [facility] HospitalComment on above:Order Comment: UnknownPerformed By: #### 37027, 99989 #### [facility] [address] [place] [address], USACreatinine [Mass/Vol]1.20 mg/dLNormal0.70-1.30The [facility] [place] [facility] HospitalComment on above:Order Comment: Unknown Performed By: #### 68591, 19056 #### [facility] [address] [place] [address], USAGFR/1.73 sq M predicted among blacks MDRD (S/P/Bld) [Vol rate/Area]mL/min/{1.73_m2}Normal>60The [facility] Comment on above:Order Comment: UnknownResult Comment: Calculation may not be valid for patients over 70 yearsPerformed By: #### 57595, 42174 #### [facility] [address] [place] [address], USAGFR/1.73 sq M predicted among non-blacks MDRD (S/P/Bld) [Vol rate/Area]60 ml/min/1.73sq mAbnormal>60The [facility] [place] [facility] HospitalComment on above:Order Comment: UnknownResult Comment: Calculation may not be valid for patients over 70 yearsPerformed By: #### 11739, 46958 #### [facility] [address] [place] [address], USAGlucose [Mass/Vol]181 mg/lPYkbm34-702Zxk [facility] [place] [facility] HospitalComment on above:Order Comment: UnknownPerformed By: #### 25570, 82099 #### [facility] [address] [place] [address], USAPotassium [Moles/Vol]3.7 mmol/LNormal3.5-5.1The [facility] [place] [facility] HospitalComment on above:Order Comment: UnknownPerformed By: #### 55412, 50614 #### [facility] [address] [place] [address], USASodium [Moles/Vol]133 mmol/PCth389-294Ebz [facility] [place] [facility] HospitalComment on above:Order Comment: UnknownPerformed By: #### 43936, 11143 #### [facility] [address] [place] [address], USAUrea nitrogen [Mass/Vol]18 mg/dLNormal7-25The [facility] [place] [facility] HospitalComment on above:Order Comment: UnknownPerformed By: #### 46396, 65739 #### [facility] [address] [place] [address], USACBC COMPLETE BLOOD COUNTon 13-12-8141Nxavugkikte distribution width (RBC) [Ratio]12.7 %Piqney95.5-15.0The [facility] [place] [facility] HospitalComment on above:Order Comment: UnknownPerformed By: #### 81345, 41069 #### [facility] [address] [place] [address], USAHematocrit (Bld) [Volume fraction]28.6 %Low39.0-50.0The [facility] [place] [facility] HospitalComment on above:Order Comment: Unknown Performed By: #### 54420, 98086 #### [facility] [address] [place] [address], USAHemoglobin (Bld) [Mass/Vol]9.8 g/dLLow13.0-17.0The [facility] [place] [facility] HospitalComment on above:Order Comment: Unknown Performed By: #### 91225, 82674 #### [facility] [address] [place] [address], USAIMM PLATELET FRAC4.1 %Normal0.8-6.3The [facility] [place] [facility] HospitalComment on above:Order Comment: UnknownPerformed By: #### 62754, 91315 #### [facility] [address] [place] [place] [address], [facility]IONAL MEDICAL CENTERMCH (RBC) [Entitic mass]31.5 diLddagm83.0-33.0The [facility] [place] [facility] HospitalComment on above:Order Comment: Unknown Performed By: #### 93681, 81914 #### [facility] [address] [place] [address], [facility] MEDICAL CENTERMCHC (RBC) [Mass/Vol]34.3 g/nVByfosd55.0-35.0The [facility] [place] [facility] HospitalComment on above:Order Comment: UnknownPerformed By: #### 73750, 43698 #### [facility] [address] [place] [place] [address], [facility] MEDICAL CENTERMCV (RBC) [Entitic vol]92.0 cHCbyhhq58.0-98.0The [facility] [place] [facility] HospitalComment on above:Order Comment: UnknownPerformed By: #### 95619, 89967 #### [facility] [address] [place] [address], USANucleated RBC/100 WBC (Bld) [Ratio]0 %Normal0-0The [facility] [place] [facility] HospitalComment on above:Order Comment: Unknown Performed By: #### 48746, 51696 #### [facility] [address] [place] [address], USAPLAT BMQ550 10*3/vZEgj460-263Ynz [facility] [place] [facility] HospitalComment on above:Order Comment: UnknownPerformed By: #### 57452, 41992 #### [facility] [address] [place] [address], USARBC (Bld) [#/Vol]3.11 10*6/uLLow4.20-5.70The [facility] [place] [facility] HospitalComment on above:Order Comment: UnknownPerformed By: #### 19289, 45959 #### [facility] [address] [place] [address], USAWBC (Bld) [#/Vol]6.45 10*3/uLNormal4.00-10.60The [facility] [place] [facility] HospitalComment on above:Order Comment: UnknownPerformed By: #### 28904, 23177 #### [facility] [address] [place] [address], USAMAGNESIUM BLOODon 57-87-7405Iedpsgoqt [Mass/Vol]1.3 mg/dL Low1.9-2.7The [facility] [place] [facility] HospitalComment on above:Order Comment: UnknownPerformed By: #### 28425, 91534 #### [facility] [address] [place] [address], USAPHOSPHORUS BLOODon 96-30-2929Rpwbsawcw [Mass/Vol]3.4 mg/dL Normal2.5-5.0The [facility] [place] [facility] HospitalComment on above:Order Comment: UnknownPerformed By: #### 87679, 81864 #### [facility] [address] [place] [address], [place] GLUCOSE LABon 28-72-6410Osvemlz [Mass/Vol]253 mg/dLHigh 70-100The [facility] [place] [facility] HospitalComment on above:Performed By: #### 02197, 11426 #### [facility] [address] [facility] [place] [address], USAGlucose [Mass/Vol]272 mg/hGUuti63-759Hru [facility] [place] [facility] HospitalComment on above:Performed By: #### 50271, 75502 #### [facility] [address] [facility] [place] [address], USAGlucose [Mass/Vol]167 mg/tPTric35-991Vza [facility] [place] [facility] HospitalComment on above:Performed By: #### 54324, 56417 #### [facility] [address] [facility] [place] [address], USAGlucose [Mass/Vol]220 mg/gEGyfm86-592Wzd [facility] [place] [facility] HospitalComment on above:Performed By: #### 50969, 32313 #### [facility] [address] [facility] [place] [address], [facility]IONAL MEDICAL CENTERVITAMIN D 25-HYDROXYon 11-56-4274PRTUFYM D 25-OH26.4 ng/mL Low30.0-80.0The [facility] [place] [facility] HospitalComment on above:Result Comment: >80.0 Toxicity possiblePerformed By: #### 75737, 59077 #### [facility] [address] [facility] [place] [address], [facility] MEDICAL CENTERAPTTon 04-04-9182iSWL Coag (Bld) [Time]23.9 sLow25.0-35.0 The [facility] [place] [facility] HospitalComment on above:Result Comment: ALL RESULTS MUST BE INTERPRETED WITH RESPECT TO BLOOD DRAWING ARTIFACT OR DILUTION ERROR OF ANTICOAGULANT AT THE TIME OF SAMPLING. THE APTT SHOULD NOT BE USED TO MONITOR UNFRACTIONATED HEPARIN THERAPY, THIS LABORATORY NO LONGER HAS AN ESTABLISHED THERAPEUTIC RANGE BASED ON THE APTT. IT IS RECOMMENDED THAT THE UFH - HEPARIN ASSAY (ANTI-XA ACTIVITY) BE USED FOR THIS PURPOSE.Performed By: #### 04552, 94534 #### [facility] [address] [facility] [place] [address], USABASIC METABOLIC PANELon 04-47-9387Dcuggse [Mass/Vol]8.7 mg/dLNormal8.6-10.3The [facility] [place] [facility] HospitalComment on above: Performed By: #### 50283 #### [facility] [address] [place] [address], USAChloride [Moles/Vol]103 mmol/QKutvwk77-024Gly [facility] [place] [facility] HospitalComment on above:Performed By: #### 70739 #### [facility] [address] [place] [address], USACO2 [Moles/Vol]24 mmol/QSvcniq03-05Pmc [facility] [place] [facility] HospitalComment on above:Performed By: #### 62196 #### [facility] [address] [place] [address], USACreatinine [Mass/Vol]1.18 mg/dLNormal0.70-1.30The [facility] [place] [facility] HospitalComment on above:Performed By: #### 65547 #### [facility] [address] [place] [address], USAGFR/1.73 sq M predicted among blacks MDRD (S/P/Bld) [Vol rate/Area]mL/min/{1.73_m2}Normal>60The [facility] Comment on above:Result Comment: Calculation may not be valid for patients over 70 yearsPerformed By: #### 37753 #### [facility] [address] [place] [address], USAGFR/1.73 sq M predicted among non-blacks MDRD (S/P/Bld) [Vol rate/Area]mL/min/{1.73_m2}Normal>60The [facility] Comment on above:Result Comment: Calculation may not be valid for patients over 70 yearsPerformed By: #### 48002 #### [facility] [address] [place] [address], USAGlucose [Mass/Vol]165 mg/iDXgra57-769Jqd [facility] [place] [facility] HospitalComment on above:Performed By: #### 98839 #### [facility] [address] [facility] [place] [address], USAPotassium [Moles/Vol]4.1 mmol/LNormal3.5-5.1The [facility] [place] [facility] HospitalComment on above:Performed By: #### 91162 #### [facility] [address] [facility] [place] [address], USASodium [Moles/Vol]132 mmol/VUgf502-687Lab [facility] [place] [facility] HospitalComment on above:Performed By: #### 34503 #### [facility] [address] [facility] [place] [address], USAUrea nitrogen [Mass/Vol]21 mg/dLNormal7-25The [facility] [place] [facility] HospitalComment on above:Performed By: #### 56260 #### [facility] [address] [facility] [place] [address], [facility] MEDICAL CENTERCBC W/DIFFon 74-95-4276QRQ BASOPHILS0.0 10*3/uLNormal 0.0-0.2The [facility] [place] [facility] HospitalComment on above:Performed By: #### 40816 #### [facility] [address] [facility] [place] [address], USAABS IMM GRANS0.0 10*3/uLNormal0.0-0.2The [facility] [place] [facility] HospitalComment on above:Performed By: #### 42211 #### [facility] [address] [facility] [place] [address], USAABS NEUTROPHILS9.8 10*3/uLHigh1.6-7.6The [facility] [place] [facility] HospitalComment on above:Performed By: #### 60924 #### [facility] [address] [facility] [place] [address], [facility] MEDICAL CENTERBasophils/100 WBC (Bld)0.4 %Normal0.0-1.0The [facility] [place] [facility] HospitalComment on above:Performed By: #### 75152 #### [facility] [address] [place] [address], USAEosinophils (Bld) [#/Vol]0.1 10*3/uLNormal0.0-0.5The [facility] [place] [facility] HospitalComment on above:Performed By: #### 39874 #### [facility] [address] [place] [address], USAEosinophils/100 WBC (Bld)0.5 %Normal0.0-6.0The [facility] [place] [facility] HospitalComment on above:Performed By: #### 09449 #### [facility] [address] [place] [place] [address], USAErythrocyte distribution width (RBC) [Ratio]12.2 %Normal 11.5-15.0The [facility] [place] [facility] HospitalComment on above:Performed By: #### 24297 #### [facility] [address] [place] [place] [address], USAHematocrit (Bld) [Volume fraction]34.8 %Low39.0-50.0The [facility] [place] [facility] HospitalComment on above:Performed By: #### 22512 #### [facility] [address] [facility] [place] [address], USAHemoglobin (Bld) [Mass/Vol]12.1 g/dLLow13.0-17.0The [facility] [place] [facility] HospitalComment on above:Performed By: #### 91405 #### [facility] [address] [facility] [place] [address], USAIMMATURE GRANS0.4 %Normal0.0-1.0The [facility] [place] [facility] HospitalComment on above:Performed By: #### 76092 #### [facility] [address] [place] [place] [address], USALymphocytes (Bld) [#/Vol]0.6 10*3/uLLow1.2-4.0The [facility] [place] [facility] HospitalComment on above:Performed By: #### 05509 #### [facility] [address] [place] [address], [facility] MEDICAL CENTERLymphocytes/100 WBC (Bld)5.4 %Low20.0-45.0The [facility] [place] [facility] HospitalComment on above:Performed By: #### 95881 #### [facility] [address] [place] [address], [facility]H (RBC) [Entitic mass]31.1 rbIeexyy90.0-33.0The [place] [facility] HospitalComment on above:Performed By: #### 99457 #### [facility] [address] [facility] [place] [address], [facility] MEDICAL CENTERMCHC (RBC) [Mass/Vol]34.8 g/qRHqggjf15.0-35.0The [facility] [place] [facility] HospitalComment on above:Performed By: #### 47903 #### [facility] [address] [facility]. [place] [address], [facility] MEDICAL CENTERMCV (RBC) [Entitic vol]89.5 fLVbpqgb63.0-98.0The [facility] [place] [facility] HospitalComment on above:Performed By: #### 02779 #### [facility] [address] [place] [address], USAMonocytes (Bld) [#/Vol]0.5 10*3/uLNormal0.1-1.0The [facility] [place] [facility] HospitalComment on above:Performed By: #### 13961 #### [facility] [address] [facility] [place] [address], USAMONOS4.3 %Low5.0-12.0The [facility] [place] [facility] HospitalComment on above:Performed By: #### 52014 #### [facility] [address] [place] [address], USANeutrophils/100 WBC (Bld)89.0 %High40.0-72.0The [facility] [place] [facility] HospitalComment on above:Performed By: #### 61183 #### [facility] [address] [address], USANucleated RBC/100 WBC (Bld) [Ratio]0 %Normal0-0The [facility] [place] [facility] HospitalComment on above:Performed By: #### 07060 #### [facility] [address] [place] [address], USAPLAT LRI649 10*3/mZGsyawf484-019Ynn [facility] [place] [facility] HospitalComment on above:Performed By: #### 56178 #### [facility] [address] [place] [address], USARBC (Bld) [#/Vol]3.89 10*6/uLLow4.20-5.70The [facility] [place] [facility] HospitalComment on above:Performed By: #### 66071 #### [facility] [address] [place] [address], USAWBC (Bld) [#/Vol]11.04 10*3/uLHigh4.00-10.60The [facility] [place] [facility] HospitalComment on above:Performed By: #### 83155 #### [facility] [address] [facility] [place] [address], USAFEMUR RIGHT 2 [facility] [id number] RIGHT 2 [facility]Ohio[facility] [address] [place] [address] Patient Name: ZACH MANUEL : 1945 Sex: M Age: Race: White Pt. Location: [id number] Patient Status: I Ordered Date: 07/13/2018 7:00:00 [...] Documentation Electronically signed by:Soila Morris. Transcribed by: [email or web address], User Resident: Electronically Signed by: SOILA MORRIS @ 07/15/2018 12:16 [facility] SystemComment on above:Order Comment: RT FEMUR IM NAILFEMUR RIGHT 2 [facility]Ohio[facility] [address] [place] [id number] Patient Name: ZACH MANUEL : 1945 Sex: M Age: Race: White Pt. Location: [facility] Patient Status: I Ordered Date: 07/12/2018 9:40:00 PM Completed Date: 07/12/2018 10:35 PM Requesting Provider: MARY VELEZ Attending Provider: MARY VELEZ Report Copy To: Signs & Symptoms: Pain ( specify Location) History: Patient history not available Comments: R/O FX, right knee Exam: FEMUR RIGHT 2 VWS FEMUR RIGHT 2 VWS 07/12/2018 10:35 PM EDT SIGNS AND SYMPTOMS: [...] findings. Electronically signed by:Zoran Cobb. Transcribed by: [email or web address], User Resident: RENAN SEWELL Electronically Signed by: ZORAN COBB @ 07/13/2018 06:51 PM I personally read this/these film(s) with this residentCleveland Clinic Children's Hospital for RehabilitationComment on above:Order Comment: R/O FX, right kneeHistory and Physicalon 07-71-5675Ylohxxm and PhysicalMR#: [id number] [facility] Pt. Name: Zach Manuel Admitted: 07/13/2018 Date of : 1945 Attending Physician: Natalie Barajas M.D. Room #: [id number] Discharge Date: HISTORY AND PHYSICAL CHIEF COMPLAINT: Fall, right hip fracture. HISTORY OF PRESENT ILLNESS: The patient is a 73-year-old gentleman with past medical history of diabetes, multiple myeloma that was treated and now under surveillance, Paget's disease and ulcerative colitis, presented to the ER as a transfer from [facility] ER. Orthopedist service accepted the patient for treatment of right hip fracture. The patient reports that today approximately 6 hours prior to arrival to [facility] ER, he was accidentally hit by [...] We will provide DVT and GI prophylaxis. [facility]cher Operator for possible rehab placement and PT and OT once the patient will have surgery. Electronically Signed by: Natalie Barajas M.D. 07/14/2018 12:41 A Natalie Barajas M.D. Date Dict: 07/13/2018/01:20 Ángela/Natalie Barajas M.D. Date Trans: 07/13/2018 06:08 Ángela/tata DN_JN:[id number] Clinic Children's Hospital for RehabilitationOperative Reporton [id number] ReportMR#: [id number] I [facility] Pt. Name: Zach Manuel Room #: [id number] Discharge Date: Birthdate: 1945 OPERATIVE REPORT DATE OF SURGERY: 07/13/2018 SURGEON: Daniela Antony M.D. [employer] SERVICE ATTENDANT: Rob Gomez M.D. PREOPERATIVE DIAGNOSIS: Right subtrochanteric [...] The distal interlocking screws, we used perfect morongo technique. The guide pin was placed under [...] Gomez MD Date Trans: 07/13/2018 09:17 P/tata DN_JN:[id number] cc: Hanna Mathias M.D. [address] [phone] Health GLUCOSE LABon 74-85-7592Pubzuwy [Mass/Vol]249 mg/rMAwwv79-206Mpw [facility] [place] [facility] HospitalComment on above:Performed By: #### 96419 #### [facility] [address] [facility] [place] [address], USAGlucose [Mass/Vol]226 mg/dBLqot55-873Jeb [facility] HospitalComment on above:Performed By: #### 34815 #### [facility] [address] [facility] [place] [address], USAGlucose [Mass/Vol]144 mg/kVBikp69-908Wzv [facility] [place] [facility] HospitalComment on above:Performed By: #### 43275 #### [facility] [address] [facility] [place] [address], USAGlucose [Mass/Vol]130 mg/oWFmxr09-892Vhn [facility] [place] [facility] HospitalComment on above:Performed By: #### 89496 #### [facility] [address] [facility] [place] [address], USAPROTHROMBIN TIMEon 67-44-9164CWF Coag (PPP) [Relative time] 1.01 {INR}Normal0.91-1.16The [facility] [place] [facility] HospitalComment on above:Result Comment: ACC RECOMMENDED INR FOR WARFARIN THERAPY ------- CONDITION INR PROPHYLAXIS OF VENOUS THROMBOSIS 2-3 (HIGH-RISK SURGERY) TREATMENT OF VENOUS THROMBOSIS 2-3 TREATMENT OF PULMONARY EMBOLISM 2-3 PREVENTION OF SYSTEMIC EMBOLISM: 2-3 ACUTE MYOCARDIAL INFARCTION TISSUE HEART VALVES VALVULAR HEART DISEASE ATRIAL FIBRILLATION RECURRENT SYSTEMIC EMBOLISM MECHANICAL HEART VALVE 2.5-3.5 FROM: ORAL ANTICOAGULANTS. MECHANISM OF ACTION, CLINICAL EFFECTIVENESS, AND OPTIMAL THERAPEUTIC RANGE. CHEST 1995;108:231S-246S.Performed By: #### 08839, 00560 #### [facility] [address] [facility] [place] [address], [facility] MEDICAL CENTERPT Coag (PPP) [Time]13.3 xBigcel91.3-14.8The [facility] [place] [facility] HospitalComment on above:Result Comment: ALL RESULTS MUST BE INTERPRETED WITH RESPECT TO BLOOD DRAWING ARTIFACT OR DILUTION ERROR OF ANTICOAGULANT AT THE TIME OF SAMPLING.Performed By: #### 33543, 17588 #### [facility] [address] [place] [address], USATYPE AND SCREENon 18-18-9687BOP INTERPRETATIONONoUK HealthcareComment on above:Performed By: #### 20750 #### [facility] [address] [place] [address], USARH INTERPRETATIONPosOhio State University Wexner Medical CenterComment on above:Performed By: #### 85887 #### [facility] [address] [place] [address], [facility] CENTERRB'S 2 UNITSon 14-52-6585SXDVVENJLY INTERP 1CHolzer Health SystemComment on above:Performed By: #### 05892 #### [facility] [address] [place] [address], USACROSSMATCH INTERP 2CHolzer Health SystemComment on above:Performed By: #### 08019 #### [facility] [address] [place] [address], USAPRODUCT CODE [id number] Clinic Children's Hospital for RehabilitationComment on above:Performed By: #### 56126 #### [facility] [address] [place] [address], USAPRODUCT CODE [id number] Clinic Children's Hospital for RehabilitationComment on above:Performed By: #### 20411 #### [facility] [address] [place] [address], USAPRODUCT STATUS 1RUniversity Hospitals TriPoint Medical CenterComment on above:Result Comment: Result changed by IF on 07/16/2018 09:30. The previous value was XM.Performed By: #### 37224 #### [facility] [address] [place] [address], USAPRODUCT STATUS 2RUniversity Hospitals TriPoint Medical CenterComment on above:Result Comment: Result changed by IF on 07/16/2018 09:30. The previous value was XM.Performed By: #### 54107 #### [facility] [address] [place] [address], USAUNIT ABO 1[facility] Comment on above:Performed By: #### 33762 #### [facility] [address] [place] [address], USAUNIT ABO 2ONoUK Healthcare Comment on above:Performed By: #### 09562 #### [facility] [address] [place] [address], USAUNIT ID [id number] Clinic Children's Hospital for RehabilitationComment on above:Performed By: #### 76172 #### [facility] [address] [place] [address], USAUNIT ID [id number] Clinic Children's Hospital for RehabilitationComment on above:Performed By: #### 14461 #### [facility] [address] [place] [address], USAUNIT RH 1PosiSalem City HospitalComment on above:Performed By: #### 46584 #### [facility] [address] [place] [address], [place] RH 2PosiSalem City HospitalComment on above:Performed By: #### [id number] #### [facility] [address] [facility] [place], [place] [id number] [place] [address] Vital Signs Date TimeVital SignValuePerforming [id number] 11:04-0400Body werigw581.3 cmUriel Gunter MD Work Phone: [facility]05-27-2025 11:04-0400Body mass index (BMI) [Ratio]27.01 kg/u8AmdncUriel Gunter MD Work Phone: [facility]05-27-2025 11:04-0400Body temperature 97.2 [degF]Uriel Gunter MD Work Phone: [facility]05-27-2025 11:04-0400Body ybmtsv23 kg Uriel Gunter MD Work Phone: [facility]05-27-2025 11:04-0400Diastolic blood ujyxigfr49 mm[Hg]Uriel Gunter MD Work Phone: [facility]05-27-2025 11:04-0400Heart rate70 /min Uriel Gunter MD Work Phone: [facility]05-27-2025 11:04-0400Respiratory rate 16 /minUriel Gunter MD Work Phone: [facility]05-27-2025 11:04-1874ZwG8% (BldA) [Mass fraction]96 %Uriel Gunter MD Work Phone: [facility]05-27-2025 11:04-0400Systolic blood qjzspabq925 mm[Hg]Uriel Gunter MD Work Phone: [facility]01-16-2025 09:59-0500Body mycefn544.[address]01-16-2025 09:59-0500Body mass index (BMI) [Ratio] 26.58 kg/m[address]01-16-2025 09:59-0500Body ixilba29.[address]09-03-2024 12:53-0400Body koppdu376.3 cmCorewell Health Ludington Hospitaljessee Sulaiman PA-C Work Phone: [facility]09-03-2024 12:53-0400Body mass index (BMI) [Ratio]27.73 kg/u8Mmbrd Sulaiman PA-C Work Phone: [facility]09-03-2024 12:53-0400Body temperature 97.9 [degF]Latrice Sulaiman PA-C Work Phone: [facility]09-03-2024 12:53-0400Body jcomac51.2 kgMindy Sulaiman PA-C Work Phone: [facility]09-03-2024 12:53-0400Diastolic blood awcaxlrx05 mm[Hg]Latrice Sulaiman PA-C Work Phone: [facility]09-03-2024 12:53-0400Heart rate63 /min Latrice Sulaiman PA-C Work Phone: [facility]09-03-2024 12:53-0400Respiratory rate 16 /minLatrice Riveraer PA-C Work Phone: [facility]09-03-2024 12:53-7369SwR7% (BldA) [Mass fraction]98 %Latrice Hilario PA-C Work Phone: [facility]09-03-2024 12:53-0400Systolic blood mm[Hg]Latrice Hilario PA-C Work Phone: [facility]06-04-2024 12:53-0400Body hzujdd418.3 cmUriel Gunter MD Work Phone: [facility]06-04-2024 12:53-0400Body mass index (BMI) [Ratio]27.43 kg/q0FivmwUriel Gunter MD Work Phone: [facility]06-04-2024 12:53-0400Body temperature 97.59 [degF]Uriel Gunter MD Work Phone: [facility]06-04-2024 12:53-0400Body eniczs61.3 kgUriel Gunter MD Work Phone: [facility]06-04-2024 12:53-0400Diastolic blood mm[Hg]Uriel Gunter MD Work Phone: [facility]06-04-2024 12:53-0400Heart rate59 /min Uriel Gunter MD Work Phone: [facility]06-04-2024 12:53-0400Respiratory rate 18 /minUriel Gunter MD Work Phone: [facility]06-04-2024 12:53-6367DmI0% (BldA) [Mass fraction]97 %Uriel Gunter MD Work Phone: [facility]06-04-2024 12:53-0400Systolic blood zqamndvi544 mm[Hg]Uriel Gunter MD Work Phone: [facility]03-05-2024 13:02-0500Body sxmxhy954.[address] WIRE PRODUCTS INSPECTOR.BRINE MIXER OPERATOR Work Phone: [facility]03-05-2024 13:02-0500Body temperature 97.9 [degF]Becca Lane WIRE PRODUCTS INSPECTOR.BRINE MIXER OPERATOR Work Phone: [facility]03-05-2024 13:02-0500Body .[address] WIRE PRODUCTS INSPECTOR.BRINE MIXER OPERATOR Work Phone: [facility]03-05-2024 13:02-0500Diastolic blood fcryhbwh87 mm[Hg]Becca Lane WIRE PRODUCTS INSPECTOR.BRINE MIXER OPERATOR Work Phone: [facility]03-05-2024 13:02-0500Heart rate65 /min Becca Lane WIRE PRODUCTS INSPECTOR.BRINE MIXER OPERATOR Work Phone: [address] [place], [place] 2750203-05-2024 13:02-0500Respiratory rate 18 /minBecca Lane APRN.BRINE MIXER OPERATOR Work Phone: [facility]03-05-2024 13:02-3761RjB9% (BldA) [Mass fraction]97 %Becca [address] WIRE PRODUCTS INSPECTOR.BRINE MIXER OPERATOR Work Phone: [facility]03-05-2024 13:02-0500Systolic blood aetoplkw985 mm[Hg]Becca Lane WIRE PRODUCTS INSPECTOR.BRINE MIXER OPERATOR Work Phone: [facility]12-05-2023 13:08-0500Body hblsus892.3 Justin Gunter MD Work Phone: [facility]12-05-2023 13:08-0500Body temperature 97.2 [degF]Uriel Gunter MD Work Phone: [facility]12-05-2023 13:08-0500Body .27 kgUriel Gunter MD Work Phone: [facility]12-05-2023 13:08-0500Diastolic blood kivyqgxs29 mm[Hg]Uriel Gunter MD Work Phone: [phone]12-05-2023 13:08-0500Heart rate62 /min Uriel Gunter MD Work Phone: [facility]12-05-2023 13:08-0500Respiratory rate 20 /minUriel Gunter MD Work Phone: [facility]12-05-2023 13:08-3185BgN1% (BldA) [Mass fraction]98 %Uriel Gunter MD Work Phone: [facility]12-05-2023 13:08-0500Systolic blood uwupfdud806 mm[Hg]Uriel Gunter MD Work Phone: [facility]09-05-2023 12:40-0400Body kjmtay091.3 cmUriel Gunter MD Work Phone: [facility]09-05-2023 12:40-0400Body temperature 97.2 [degF]Uriel Gunter MD Work Phone: [facility]09-05-2023 12:40-0400Body .45 kgUriel Gunter MD Work Phone: [facility]09-05-2023 12:40-0400Diastolic blood ctvdwicp81 mm[Hg]Uriel Gunter MD Work Phone: [facility]09-05-2023 12:40-0400Heart rate56 /min Uriel Gunter MD Work Phone: [facility]09-05-2023 12:40-0400Respiratory rate 16 /minUriel Gunter MD Work Phone: [facility]09-05-2023 12:40-2998GhT3% (BldA) [Mass fraction]98 %Uriel Gunter MD Work Phone: [facility]09-05-2023 12:40-0400Systolic blood ezhicdms931 mm[Hg]Uriel Gunter MD Work Phone: [facility]03-14-2023 13:00-0400Body ahvsww624.3 cmUriel Gunter MD Work Phone: [facility]03-14-2023 13:00-0400Body temperature 97.11 [degF]Uriel Gunter MD Work Phone: [facility]03-14-2023 13:00-0400Body kxurfh47.55 kgUriel Gunter MD Work Phone: [facility]03-14-2023 13:00-0400Diastolic blood iyzmatvf45 mm[Hg]Uriel Gunter MD Work Phone: [facility]03-14-2023 13:00-0400Heart rate60 /min Uriel Gunter MD Work Phone: [place] [address]-14-2023 13:00-0400Respiratory rate 18 /minUriel Gunter MD Work Phone: [facility]03-14-2023 13:00-3699VqC9% (BldA) [Mass fraction]97 %Uriel Gunter MD Work Phone: [facility]03-14-2023 13:00-0400Systolic blood vgzifdey183 mm[Hg]Uriel Gunter MD Work Phone: [facility]12-20-2022 15:00-0500Body qlzbub185.3 Justin Gunter MD Work Phone: [facility]12-20-2022 15:00-0500Body temperature 97.59 [degF]Uriel Gunter MD Work Phone: [facility]12-20-2022 15:00-0500Body ctyrqp16.82 kgUriel Gunter MD Work Phone: [facility]12-20-2022 15:00-0500Diastolic blood mm[Hg]Uriel Gunter MD Work Phone: [facility]12-20-2022 15:00-0500Heart rate67 /min Uriel Gunter MD Work Phone: [facility]12-20-2022 15:00-0500Respiratory rate 18 /minUriel Gunter MD Work Phone: [facility]12-20-2022 15:00-5213ZgT9% (BldA) [Mass fraction]97 %Uriel Gunter MD Work Phone: [facility]12-20-2022 15:00-0500Systolic blood totaqjgj011 mm[Hg]Uriel Gunter MD Work Phone: [facility]09-27-2022 12:37-0400Body awqwuf574.[address] WIRE PRODUCTS INSPECTOR.BRINE MIXER OPERATOR Work Phone: [facility]09-27-2022 12:37-0400Body temperature 97.11 [degF]Becca Lane WIRE PRODUCTS INSPECTOR.BRINE MIXER OPERATOR Work Phone: [facility]09-27-2022 12:37-0400Body sajkpw03.[address] WIRE PRODUCTS INSPECTOR.BRINE MIXER OPERATOR Work Phone: [facility]09-27-2022 12:37-0400Diastolic blood nctkqput45 mm[Hg]Becca Lane WIRE PRODUCTS INSPECTOR.BRINE MIXER OPERATOR Work Phone: [facility]09-27-2022 12:37-0400Heart rate79 /min Becca Lane WIRE PRODUCTS INSPECTOR.BRINE MIXER OPERATOR Work Phone: [facility]09-27-2022 12:37-0400Respiratory rate 16 /minBecca Lane WIRE PRODUCTS INSPECTOR.BRINE MIXER OPERATOR Work Phone: [facility]09-27-2022 12:37-5792PiZ5% (BldA) [Mass fraction]97 %Becca Lane WIRE PRODUCTS INSPECTOR.BRINE MIXER OPERATOR Work Phone: [facility]09-27-2022 12:37-0400Systolic blood jumvquad652 mm[Hg]Becca Lane WIRE PRODUCTS INSPECTOR.BRINE MIXER OPERATOR Work Phone: [facility]06-28-2022 12:49-0400Body xweaov620.3 Justin Gunter MD Work Phone: [facility]06-28-2022 12:49-0400Body temperature 97 [degF]Uriel Gunter MD Work Phone: [facility]06-28-2022 12:49-0400Body nzwvyl21.81 kgUriel Gunter MD Work Phone: [facility]06-28-2022 12:49-0400Diastolic blood hxlztuks28 mm[Hg]Uriel Gunter MD Work Phone: [facility]06-28-2022 12:49-0400Heart rate65 /min Uriel Gunter MD Work Phone: [facility]06-28-2022 12:49-0400Respiratory rate 16 /minUriel Gunter MD Work Phone: [facility]06-28-2022 12:49-7026ZjQ7% (BldA) [Mass fraction]100 %Uriel Gunter MD Work Phone: [facility]06-28-2022 12:49-0400Systolic blood fnagzktv824 mm[Hg]Uriel Gunter MD Work Phone: [facility]05-03-2022 12:42-0400Body .3 cmUriel Gunter MD Work Phone: [facility]05-03-2022 12:42-0400Body temperature 98.01 [degF]Uriel Gunter MD Work Phone: [facility]05-03-2022 12:42-0400Body .91 Colton Gunter MD Work Phone: [facility]05-03-2022 12:42-0400Diastolic blood euvvfdcd19 mm[Hg]Uriel Gunter MD Work Phone: [facility]05-03-2022 12:42-0400Heart rate64 /min Uriel Gunter MD Work Phone: [facility]05-03-2022 12:42-0400Respiratory rate 18 /minUriel Gunter MD Work Phone: [facility]05-03-2022 12:42-1209WkE4% (BldA) [Mass fraction]98 %Uriel Gunter MD Work Phone: [facility]05-03-2022 12:42-0400Systolic blood ptbelwme585 mm[Hg]Uriel Gunter MD Work Phone: [facility] Encounters Encounter DateEncounter TypeCare ProviderFacilityStart: 40-90-5446iroehuaklo Manny R NILLFacility:[facility] DaughtersevueStart: 97-52-9645avpijlcosfOakwvwv NILL Facility: [place]Start: 02-27-2025 End: 54-51-3393KmagxaTqybc R Murphy MD Work Phone: [facility] PharmacyComment on above: Refill RequestStart: 02-19-2025 End: 67-02-6508Remdbq-up encounterUriel Gunter MD Work Phone: Hematology/OncologyComment on above:ResultsStart: 02-17-2025 End: 95-63-5656Exggoub encounter procedureUriel Gunter MD Work Phone: Hematology/OncologyStart: 02-17-2025 End: 21-84-9301aldnyzupssJvclp [address] Work Phone: Hematology/OncologyComment on above:Multiple myeloma not having achieved remission (HCC) (Primary Dx); Paget disease of boneMultiple myeloma not having achieved remission (HCC) (Primary Dx); Paget disease of bone; H/O ulcerative colitis; Stage 3b chronic kidney disease (HCC)Start: 12-11-2024 End: 38-42-4796GibzufIqequul [facility] Work Phone: [facility] PharmacyComment on above: Refill RequestStart: 11-20-2024 End: 90-08-2026Svvtwsxpfx and management of inpatientDAVID Jessica ZARATEChildren's Hospital for Rehabilitationtart: 11-20-2024 End: 37-28-9848Zxlfzmecoj and management of inpatientSUSAN Rachel STAPLETONChildren's Hospital for Rehabilitationtart: 11-19-2024 End: 53-83-7423ezxwjlcyqkLvc Pat Phone Call Provider [address] [place] [address] - Pre AdmitStart: 11-19-2024 End: 43-62-3367yfeobqytcrZFXNA E SMITHChildren's Hospital for Rehabilitationtart: 11-17-2024 End: 49-33-0483NuebbbAgcua R Murphy MD Work Phone: [facility] PharmacyComment on above: Refill RequestStart: 10-30-2024 End: 77-43-6693Skdrhxwakw and management of inpatientCYLE [facility]: 10-30-2024 End: 08-19-3069Vzwsajorcp and management of inpatientSUSAN Rachel [facility]art: 10-10-2024 End: 07-79-8041DzlhfhKwdkryg [facility] Work Phone: [facility] PharmacyComment on above: Refill RequestStart: 10-09-2024 End: 99-38-8127fsjujnerecGWLKW M SOMMERSChildren's Hospital for Rehabilitationtart: 12-19-2471Bmptohewt for other preprocedural examinationDOUGLAS [facility]: 10-09-2024 End: 44-77-0387Jmnrzyx encounter procedurePm Pre-Admission Testing [address] [place] [address] - Pre AdmitComment on above:Preop examination (Primary Dx)Start: 10-09-2024 End: 97-57-9393Wzjpxtmeibwwr examination donePm[address] SystemStart: 09-11-2024 End: 12-23-5011JlzfhjByboqAnusha Gunter MD Work Phone: [facility]acyComment on above: Refill RequestStart: 08-11-2024 End: 66-32-1266JjdddlGceimAnusha Gunter MD Work Phone: [facility] PharmacyComment on above: Refill RequestStart: 07-25-2024 End: 75-74-6588isiuglogvwIsbwmvqMiki Woodson RPh Work Phone: [facility] HB-3Start: 07-25-2024 End: 17-57-8813M-mail encounter from Paulette YoungerNamkristi [facility] Work Phone: [facility] HB-3Start: 06-30-2024 End: 45-28-5334FlvwujCghhznAusha Gunter MD Work Phone: [facility] PharmacyComment on above: Refill RequestStart: 06-04-2024 End: 29-77-9626OhohacZcnmq R Murphy MD Work Phone: [facility]acyComment on above: Refill RequestStart: 05-29-2024 End: 97-42-0574Uavwkwydc encounterResaad Ferguson RN Work Phone: Hematology/OncologyComment on above:Care Coordination (Lab Results)Start: 05-27-2024 End: 16-18-0061Gskfyysmq encounterMinjessee Hilario PA-C Work Phone: Hematology/OncologyComment on above:ResultsStart: 05-27-2024 End: 30-00-4919Yzzooe outpatient visit 15 minutesLatrice Hilario PA-C Work Phone: Hematology/OncologyComment on above:Multiple myeloma not having achieved remission (HCC) (Primary Dx); Type 2 diabetes mellitus without complication, with long-term current use of insulin (HCC)Start: 05-27-2024 End: 95-79-0851qyyqdjpxxiLQRRBAB M HOYFacility:[facility] HospitalStart: 05-20-2024 End: 00-56-8779Wgisqfgxp encounterLatrice Hilario PA-C Work Phone: Hematology/OncologyComment on above:Lab OrdersStart: 57-04-0631WlhqsaAtykkik [facility] Work Phone: [facility] HB-3Comment on above:Refill Request Start: 42-81-4764VsqlliUkzijAnusha Gunter MD Work Phone: [facility]acyComment on above: Refill RequestStart: 76-57-4253EujsxfEruvhAnusha Gunter MD Work Phone: [facility] PharmacyComment on above: Refill RequestStart: 30-00-4336Yggwgdnhr encounterResaad Ferguson RN Work Phone: Hematology/OncologyComment on above:Care Coordination (Labs)Start: 02-26-2024 End: 86-18-7769Htcotjo encounter David Gunter MD Work Phone: Hematology/OncologyStart: 02-26-2024 End: 83-56-2004btgjwbgcehMqczc [address] Work Phone: Hematology/OncologyComment on above:Multiple myeloma not having achieved remission (HCC) (Primary Dx); Paget disease of boneMultiple myeloma not having achieved remission (HCC) (Primary Dx); Paget disease of bone; Type 2 diabetes mellitus without complication, with long-term current use of insulin (HCC); H/O ulcerative colitis; Stage 3 chronic kidney disease, unspecified whether stage 3a or 3b CKD (HCC); Elevated prostate specific antigen (PSA)Start: 56-81-1873NvauwuVsyghse [facility] Work Phone: [facility]acyComment on above: Refill Request (revlimid)Start: 28-70-0378HknixcPlsuris [facility] Work Phone: [facility] PharmacyComment on above: Refill RequestStart: 23-86-5811BglgxxDqlztAnusha Gunter MD Work Phone: [facility] Pharm ServicesComment on above:Refill Request Start: 76-82-8097HgftfkOvhoeee [facility] Work Phone: [facility] PharmacyComment on above: Refill RequestStart: 11-27-2023 End: 22-56-5213ndbjziujzuJopdv Martinez APRN.BRINE MIXER OPERATOR Work Phone: Hematology/OncologyComment on above:Multiple myeloma not having achieved remission (HCC) (Primary Dx); Paget disease of bone; Type 2 diabetes mellitus without complication, with long-term current use of insulin (HCC); H/O ulcerative colitis; Elevated prostate specific antigen (PSA); Stage 3b chronic kidney disease (HCC)Start: 11-27-2023 End: 98-64-5852Vbtqhfr encounter [address] APRN.BRINE MIXER OPERATOR Work Phone: [place]Start: 33-09-0317Jvlsactoh encounterUriel Gunter MD Work Phone: Hematology/OncologyComment on above:Lab OrdersStart: 35-34-9771FobsvwOwbwbRocky Hatfield MD Work Phone: [facility] Pharm ServicesComment on above:Refill Request Start: 08-28-2023 End: 30-53-8602enskouphtyDlrou [address] [place] Work Phone: Hematology/OncologyComment on above:Multiple myeloma, remission status unspecified (HCC) (Primary Dx)Multiple myeloma not having achieved remission (HCC) (Primary Dx); Paget disease of bone; Stage 3b chronic kidney disease (HCC); Type 2 diabetes mellitus without complication, with long-term current use of insulin (HCC); H/O ulcerative colitis; Elevated prostate specific antigen (PSA)Start: 08-28-2023 End: 88-46-6192Fxebbsn encounter David Gunter MD Work Phone: S[place]USKYStart: 05-95-0401VhbndqAnjjb R Murphy MD Work Phone: [facility] Pharm ServicesComment on above:Refill Request Start: 94-97-8425KqnhevLlvpgjs [facility] Work Phone: [facility]acyComment on above: Refill RequestStart: 94-97-2496Iuzugogrj encounterBozena Roland RN Hematology/OncologyComment on above:ResultsStart: 05-29-2023 End: 33-55-0061ykjfmjroetDgbnl R Murphy MD Work Phone: Hematology/OncologyComment on above:Multiple myeloma not having achieved remission (HCC) (Primary Dx); Stage 3b chronic kidney disease (HCC); Type 2 diabetes mellitus without complication, with long-term current use of insulin (HCC); Paget disease of bone; H/O ulcerative colitisStart: 05-29-2023 End: 62-60-6362Ycnjfnb encounter David Gunter MD Work Phone: S[place]USKYStart: 48-37-1257DeeieoFctbk Karamlou MD Work Phone: [facility] Pharm ServicesComment on above:Refill Request Start: 04-14-4903Lmxgadxlt Rashmi Gunter MD Work Phone: Hematology/OncologyComment on above:Lab OrdersStart: 69-78-2089KpwgqgXeajlge [facility] Work Phone: [facility] HB-3Comment on above:Refill Request Start: 06-25-7128EtjrfrTysmtqm [facility] Work Phone: [facility]acyComment on above: Refill RequestStart: 05-04-7070HmufjaVeyqifh [facility] Work Phone: [facility]acyComment on above: Refill RequestStart: 12-05-2022 End: 32-33-9801figdnzxqtoDoixz [address] [place] Work Phone: Hematology/OncologyComment on above:Multiple myeloma, remission status unspecified (HCC) (Primary Dx)Multiple myeloma not having achieved remission (HCC) (Primary Dx); Paget disease of bone; Type 2 diabetes mellitus without complication, with long-term current use of insulin (HCC); Elevated prostate specific antigen (PSA)Start: 12-05-2022 End: 69-30-9428Pogcqwj encounter David Gunter MD Work Phone: S[place]USKYStart: 19-97-1276Ccleuogdm encounterUriel Gunter MD Work Phone: Hematology/OncologyComment on above:Lab OrdersStart: 43-81-0780FicddgMswqlhd [facility] Work Phone: [facility] -3Comment on above:Refill Request Start: 82-22-8345EoxfoiJoithvz [facility] Work Phone: [facility]acyComment on above: Refill RequestStart: 85-62-0446RghlkvIvuyndr [facility] Work Phone: Hematology/OncologyComment on above:Refill Request Start: 09-12-2022 End: 67-91-2533wjuaumzsmuXishi R Murphy MD Work Phone: Hematology/OncologyComment on above:Multiple myeloma not having achieved remission (HCC) (Primary Dx); Paget disease of bone; Type 2 diabetes mellitus without complication, with long-term current use of insulin (HCC); Elevated prostate specific antigen (PSA); H/O ulcerative colitisStart: 09-12-2022 End: 76-88-3923Tkuxfcd encounter procedureUriel Gunter MD Work Phone: SANDUSKYStart: 08-28-2022 End: 21-67-0714rnfqebmoccVK HANNA BRANHAMYFacility:T5Qriyf: 12-78-8362BmysctJmvycov [facility] Work Phone: Hematology/OncologyComment on above:Refill Request Start: 43-69-9547Nyeefflkz encounterRebecca SesslerHematology/OncologyComment on above:Care Coordination (Calcium)Start: 06-20-2022 End: 87-63-6764cnambmbhcpHuyfn [address] [place] Work Phone: Hematology/OncologyComment on above:Multiple myeloma, remission status unspecified (HCC) (Primary Dx)Multiple myeloma not having achieved remission (HCC) (Primary Dx); Paget disease of bone; Type 2 diabetes mellitus without complication, with long-term current use of insulin (HCC); Elevated prostate specific antigen (PSA)Start: 06-20-2022 End: 38-38-6503Fhxiohd encounter [address] APRN.CNP Work Phone: S[place]USKYStart: 45-63-2252YnkqqjSxankvz [facility] Work Phone: [facility] Pharm ServicesComment on above:Refill Request Start: 55-87-0194Ttmipnpdh encounterUriel Gunter MD Work Phone: Hematology/OncologyComment on above:Lab OrdersStart: 41-58-6158UzntqoElckuej [facility] Work Phone: Hematology/OncologyComment on above:Refill Request Start: 37-95-7678RchyiiBueju [facility] Work Phone: [facility] HB-3Comment on above:Refill Request Start: 40-14-6786YeipzbOrbfk Antoine [facility] Work Phone: [facility] HB-3Comment on above:Refill Request (lenalidomide)Tool Crib Clerk - Other ([facility] benjamin obtained)Start: 78-34-7668Tzeqibypi encounterFunmilayo Arriola RNHematology/OncologyComment on above:ResultsStart: 03-24-2022 End: 67-98-6604soobnpcwozPH DOUGLAS HOYFacility:C1Uaavt: 03-21-2022 End: 66-43-0144tcvqhnigggZezej R Murphy MD Work Phone: Hematology/OncologyComment on above:Multiple myeloma not having achieved remission (HCC) (Primary Dx); Paget disease of bone; Type 2 diabetes mellitus without complication, with long-term current use of insulin (HCC); H/O ulcerative colitis; Elevated prostate specific antigen (PSA)Start: 03-21-2022 End: 70-93-7316Klfwdml encounter David Gunter MD Work Phone: S[place]USKYStart: 03-15-2022 End: 45-91-3974ycyoipprncQZPhilip Jamisonity:M7Klgnq: 03-14-2022 End: 32-06-6535dsreyyvbriAT HANNA HOYFacility:Q0Sxkqx: 19-56-8606SpyyuvLmumwyr McKitkristi [facility] Work Phone: Hematology/OncologyComment on above:Refill Request Start: 91-62-0980LycbfmTwwam Schmitt [facility] Work Phone: [facility] HB-3Comment on above:Refill Request Start: 01-24-2022 End: 72-12-8568lyiqfojkqdRahap R Murphy MD Work Phone: Hematology/OncologyComment on above:Multiple myeloma not having achieved remission (HCC) (Primary Dx); Paget disease of bone; Type 2 diabetes mellitus without complication, with long-term current use of insulin (HCC); H/O ulcerative colitisStart: 01-24-2022 End: 27-73-8491Wvsdvqe encounter procedureUriel Gunter MD Work Phone: S[place]USKYStart: 21-45-0280IgrrwlAtdsenf [facility] Work Phone: Ambu Pharm ServicesComment on above:Refill Request Start: 12-20-2021 End: 79-60-4392pqkexbdhpwEM ROXANA WATERSFacility:E4Eiphn: 11-10-2021 End: 35-96-0833pcvwmvfopsLN ROXANA WATERSFacility:B9Routv: 09-12-2021 End: 23-12-4295aiyftbwenoNG HANNA HOYFacility:F2Whzfp: 09-10-2021 End: 43-83-6658ntiwtscqmxEQ HANNA HOYFacility:C5Dxcja: 07-13-2018 End: 48-09-7023Cyskjjjrgq and management of inpatientDOUGLAS HOYFacility:[facility] Procedures DateProcedureProcedure DetailPerforming ClinicianStart: 66-46-3171Ymgsa depression screening assessmentUriel Gunter MD Work Phone: Start: 76-32-3863ZUC screeningDR HANNA HOYComment on above:Performed By: #### PSASC #### [facility] [address] [address] [address] Tigre Maldonado: 17-29-1405NTG screeningDR HANNA HOYComment on above: Performed By: #### PSAD #### [facility] [address] [address] [address] Tigre Villaltaart: 68-91-2539Iacis depression screening assessmentBridget Wendi [facility] Work Phone: Start: 40-18-6568VBMJOIIOQW R UP FEMUR WITH INTRAMED FIX, PERC APPROACHNABIL EBRAHEIMStart: 29-93-5267QFLWOYZIRECH OF SERUM/TOX/VACCINE INTO MUSCLE, PERC APPROACHYASIR AL-ABBOODIStart: 07-13-2018 Antibody screenDOUGLAS HOYComment on above:Performed By: #### [id number] #### [address] Plan of Treatment DateCare ActivityDetailAuthorStart: 52-96-8936Mbrpleiu blood count Hemoglobin/HematocritLee ClinicStart: 10-10-1589Pmhxwfiwbf measurement Serum CreatinineCleRegency Hospital Cleveland Easttart: 64-34-2849Deegcpw ScreeningTobacco ScreeningProRegency Hospital Companyca [facility] SystemStart: 35-75-6544Wehtsgd ScreeningTobacco ScreeningProRegency Hospital Companyca [facility] SystemStart: 08-18-2025 End: 91-07-3903Xkvibn-up encounterHematology/OncologyComment on above:6 month follow up with labStart: 08-18-2025 End: 54-66-7020Nzkzqtm encounter lytnvwksf80/25/2025 10:15 AM EST Office Visit [facility] [address] [place] [address] [place] [address] 6 month follow up with labNortBeaumont Hospital LaboratoryComment on above:6 month follow up with labStart: 28-28-5348Drtqqqhy blood countHemoglobin/HematocritLee ClinicStart: 55-84-9449Sokbbqxvlp measurementSerum CreatinineClest. rita's hospital ClinicStart: 52-44-3107Flxalggpg vaccinationInfluenza Vaccine (Season Ended)[facility]: 02-25-2025 Complete blood countHemoglobin/HematocritSCCI Hospital [facility]: 02-25-2025 Creatinine measurementSerum CreatinineSCCI Hospital [facility]: 02-17-2025 End: 24-87-6141CRABVJBAGA PROTEIN, SERUM (BLOOD)[facility] For RehabilitationComment on above:Expected: 02/17/2025, Expires: 05/19/2025Start: 02-17-2025 End: 89-08-1951FFXT ELECT SERUM WITH TOÑITO AND INTERSelect [facility] Work Phone: Comment on above:Expected: 02/17/2025, Expires: 05/19/2025Start: 64-40-4755Ppcsf-19 Vaccine (10 - Mixed Product risk season)Covid-19 Vaccine (10 - Mixed Product risk season)[facility] Start: 10-35-1299Ehsllnbt blood countHemoglobin/HematocritSCCI Hospital [facility]atart: 60-74-3716Mtqkfbvqpn measurementSerum CreatinineSCCI Hospital Limatart: 11-20-2024 End: 16-84-9249Kejevxoio to same day surgery dorrtl0211/20/2024 9:45 AM EST - 11/20/2024 10:30 AM EST Surgery [facility] [address] [place] [address] Bernardo Stapleton MD [address] [place] [address] EXTRACTION CATARACT INTRAOCULAR LENS [98023 (CPT )][facility] - SurgeryComment on above:EXTRACTION CATARACT INTRAOCULAR LENS [65611 (CPT )] Start: 77-08-4926Aqbpwzgqhm hospital visit by qzogqouqx00/27/2025 9:45 AM EST Hospital Encounter [facility] [address] [place] [address] Bernardo Stapleton MD [address] [place] [address] [facility] SurgeryStart: 11-20-2024 End: 87-63-6495Mfqwbn ctrc rmvl insj io lens prosth w/o ecpFREMONT SURGERYStart: 11-19-2024 End: 05-58-4811plbjuypvqd81/26/2025 3:50 PM EST Support Visit [facility] - [facility] Admit [address] [place] [address] [facility] AdmitStart: 10-30-2024 End: 07-53-6630Xmpiducya to same day surgery fxgbbr7210/30/2024 9:45 AM EST - 10/30/2024 10:30 AM EST Surgery [facility] [address] [place] [address] Bernardo Stapleton MD [address] [place] [address] EXTRACTION CATARACT INTRAOCULAR LENS [19615 (CPT )][facility] SurgeryComment on above:EXTRACTION CATARACT INTRAOCULAR LENS [25722 (CPT )] Start: 36-65-9133Rexawxzuer hospital visit by zrqzzreus66/06/2025 9:45 AM EST Hospital Encounter [facility] [address] [place] [id number] Bernardo Stapleton MD [address] [place] [id number] [facility] SurgeryStart: 10-30-2024 End: 02-01-7014Njeaoh ctrc rmvl insj io lens prosth w/o ecpEXTRACTION CATARACT INTRAOCULAR LENS cataract right eye 10/30/2024 9:45 AM ESTFREMONT SURGERYStart: 97-62-6840Mpgydwd Directive DiscussionAdvance Directive DiscussionSCCI Hospital Limatart: 03-24-4445Phxdpaax blood countHemoglobin/HematocritChildren'S Hospital For Rehabilitation Start: 06-41-1993Emklnvanif measurementSerum CreatinineSCCI Hospital Limatart: 61-96-9911Wetcauetfu/HematocritHemoglobin/HematocritSCCI [facility]art: 88-31-5987Gsovn CreatinineSerum CreatinineSCCI Hospital [facility]art: 08-26-2024 End: 31-97-8390DIV W Auto Differential panel - BloodCOMPLETE BLOOD COUNT AND DIFFERENTIAL Lab Routine Multiple myeloma not having achieved remission (HCC) Expected: 08/26/2024 (Approximate), Expires: 11/25/2024[place] ClinicComment on above:Expected: 08/26/2024 (Approximate), Expires: 11/25/2024Start: 08-26-2024 End: 31-53-5129Bijemkzeouvta metabolic 2000 panel - Serum or PlasmaCOMPREHENSIVE METABOLIC PANEL Lab Routine Multiple myeloma not having achieved remission (HCC) Expected: 08/26/2024 (Approximate), Expires: 11/25/2024[facility] Work Phone: Comment on above:Expected: 08/26/2024 (Approximate), Expires: 11/25/2024Start: 08-26-2024 End: 34-25-9124CQRAU/DANIELS,FREE,SERKAPPA/DANIELS,FREE,SER Lab Routine Multiple myeloma not having achieved remission (HCC) Expected: 08/26/2024 (Approximate), Expires: 11/25/2024[place] ClinicComment on above:Expected: 08/26/2024 (Approximate), Expires: 11/25/2024Start: 08-26-2024 End: 85-38-9466OFOTJQAHBM PROTEIN, SERUM (BLOOD)MONOCLONAL PROTEIN, SERUM (BLOOD) Lab Routine Multiple myeloma not having achieved remission (HCC) E xpected: 08/26/2024 (Approximate), Expires: 11/25/2024[place] ClinicComment on above:Expected: 08/26/2024 (Approximate), Expires: 11/25/2024Start: 08-26-2024 End: 63-49-8961HEEYYAT ELECTROPHORESIS SERUM W/INTERPPROTEIN ELECTROPHORESIS SERUM W/INTERP Lab Routine Multiple myeloma not having achieved remission (HCC) Expected: 08/26/2024 (Approximate), Expires: 03/04/2025[place] ClinicComment on above:Expected: 08/26/2024 (Approximate), Expires: 11/25/2024Start: 08-26-2024 End: 01-75-5620Koyggq-up encounterHematology/OncologyComment on above:3 month follow up with lab and arediaStart: 08-26-2024 End: 90-34-3459Hqfjmgp encounter procedureNortBeaumont Hospital LaboratoryComment on above:3 month follow up with lab and arediaStart: 18-12-1662UDDZEWVYKA/HEMATOCRITHEMOGLOBIN/HEMATOCRITCleRegency Hospital Cleveland Easttart: 51-16-2817ALGGD CREATININESERUM CREATININESCCI Hospital [facility]art: 05-27-2024 End: 85-05-2126Brfvhr-up encounterHematology/OncologyComment on above:3 month follow up with lab and arediaStart: 05-27-2024 End: 67-66-8915Yspurfk encounter pymaosrlg45/03/2024 12:45 PM EDT Office Visit [facility] [address] [place] [address] [place] [address] 3 month follow up with lab and arediaNoRaleigh General Hospital LaboratoryComment on above:3 month follow up with lab and aredia Start: 38-00-3566Zflrw-19 Vaccine ( season)Covid-19 Vaccine ( season)[facility]: 51-33-8627Ugojb-19 Vaccine ( season)Covid-19 Vaccine ( season)[facility]: 05-25-2024 Influenza vaccinationSCCI Hospital [facility]: 05-20-2024 End: 20-90-4251KDA W Auto Differential panel - BloodCOMPLETE BLOOD COUNT AND DIFFERENTIAL Lab Routine Multiple myeloma not having achieved remission (HCC) Expected: 05/20/2024, Expires: 08/19/2024[place] ClinicComment on above: Expected: 05/20/2024, Expires: 08/19/2024Start: 05-20-2024 End: 73-92-0122Vcwhrlpdlixtz metabolic 2000 panel - Serum or PlasmaCOMPREHENSIVE METABOLIC PANEL Lab Routine Multiple myeloma not having achieved remission (HCC) Expected: 05/20/2024, Expires: 08/19/2024[facility] Work Phone: Comment on above:Expected: 05/20/2024, Expires: 08/19/2024Start: 05-20-2024 End: 39-67-1798IFTJGHTWRH PROTEIN, SERUM (BLOOD)MONOCLONAL PROTEIN, SERUM (BLOOD) Lab Routine Multiple myeloma not having achieved remission (HCC) E xpected: 05/20/2024, Expires: 08/19/2024levelunc health blue ridge - valdese ClinicComment on above: Expected: 05/20/2024, Expires: 08/19/2024Start: 05-20-2024 End: 60-40-6287GRQRCJB ELECTROPHORESIS SERUM W/INTERPPROTEIN ELECTROPHORESIS SERUM W/INTERP Lab Routine Multiple myeloma not having achieved remission (HCC) Expected: 05/20/2024, Expires: 08/19/2024[facility] ClinicComment on above: Expected: 05/20/2024, Expires: 08/19/2024Start: 09-68-9207GPVSGGNORA/HEMATOCRIT HEMOGLOBIN/HEMATOCRITSCCI Hospital [facility]: 24-29-3265JQPVY CREATININESERUM CREATININESCCI [facility]: 02-26-2024 End: 33-92-7912Cbhtfn-up encounterHematology/OncologyComment on above:3 month follow up with lab and arediaStart: 02-26-2024 End: 73-49-2877Tcbcdnk encounter sxybechig61/04/2024 1:00 PM EDT Office Visit [facility] [address] [place] [address] 3 month follow up with lab and arediaNortBeaumont Hospital LaboratoryComment on above:3 month follow up with lab and aredia Start: 01-02-2024 End: 40-61-8966VSCNBBXKRI PROTEIN, SERUM (BLOOD)MONOCLONAL PROTEIN, SERUM (BLOOD) Lab Routine Multiple myeloma not having achieved remission (HCC) Paget disease of bone Type 2 diabetes mellitus without complication, with long-term current use of insulin (HCC) H/O ulcerative colitis Elevated prostate specific antigen (PSA) Stage 3b chronic kidneydisease (HCC) Expected: 01/02/2024, Expires: 04/02/2024[facility] Work Phone: Comment on above:Expected: 01/02/2024, Expires: 04/02/2024Start: 12-05-2023 End: 87-80-5219BOG W Auto Differential panel - BloodCBC + DIFF Lab Routine Multiple myeloma not having achieved remission (HCC) Paget disease of bone Type 2 diabetes mellitus without complication, with long-term current use of insulin (HCC) H/O ulcerative colitis Elevated prostate specific antigen (PSA) Stage 3b chronic kidney disease (HCC) Expected: 12/05/2023, Expires: 03/05/2024[facility] Work Phone: Comment on above:Expected: 12/05/2023, Expires: 03/05/2024Start: 12-05-2023 End: 38-18-6051Qypcwnnskpyag metabolic 2000 panel - Serum or PlasmaCOMP METABOLIC PANEL Lab Routine Multiple myeloma not having achieved remission (HCC) Paget diseaseof bone Type 2 diabetes mellitus without complication, with long- term current use of insulin (HCC) H/O ulcerative colitis Elevated prostate specific antigen (PSA) Stage 3b chronic kidney disease (HCC) Expected: 12/05/2023, Expires: 03/05/2024[facility] Work Phone: Comment on above:Expected: 12/05/2023, Expires: 03/05/2024Start: 12-05-2023 End: 18-18-3115BVQQ ELECT SERUM WITH TOÑITO AND INTERPPROT ELECT SERUM WITH TOÑITO AND INTERP Lab Routine Multiple myeloma not having achieved remission (HCC) Expected: 12/05/2023, Expires: 03/05/2024[facility] Work Phone: Comment on above:Expected: 12/05/2023, Expires: 03/05/2024Start: 11-26-2023 End: 96-81-2055Frcya metabolic 2000 panel - Serum or PlasmaBASIC METABOLIC PNL Lab Routine Multiple myeloma not having achieved remission (HCC) Expected: 11/25, Expires: 02/25/2024[facility] Work Phone: Comment on above:Expected: 11/26/2023, Expires: 02/25/2024Start: 11-26-2023 End: 26-18-9328FED W Auto Differential panel - BloodCBC + DIFF Lab Routine Multiple myeloma not having achieved remission (HCC) Expected: 11/26/2023, Ex jamie: 02/25/2024[facility] Work Phone: Comment on above:Expected: 11/26/2023, Expires: 02/25/2024Start: 11-26-2023 End: 95-96-4315GSUCKBMDQS PROTEIN, SERUM (BLOOD)MONOCLONAL PROTEIN, SERUM (BLOOD) Lab Routine Multiple myeloma not having achieved remission (HCC) E xpected: 11/26/2023, Expires: 02/25/2024[facility] Work Phone: Comment on above:Expected: 11/26/2023, Expires: 02/25/2024Start: 11-26-2023 End: 51-72-3445BCHM ELECT SERUM WITH TOÑITO AND INTERPPROT ELECT SERUM WITH TOÑITO AND INTERP Lab Routine Multiple myeloma not having achieved remission (HCC) Expected: 11/26/2023, Expires: 02/25/2024[facility] Work Phone: Comment on above:Expected: 11/26/2023, Expires: 02/25/2024Start: 75-19-1056Yxfsrlr Directive DiscussionAdvance Directive DiscussionCleRegency Hospital Cleveland Easttart: 60-57-3266Fnvnseorpv Health ScreeningBehavioral Health ScreeningSCCI Hospital [facility]atart: 32-93-1462Lkgfmppzcy AssessmentDepression AssessmentCleRegency Hospital [facility] Easttart: 86-55-8116Gwyac-19 Vaccine () Covid-19 Vaccine ()[facility]: 08-28-2023 End: 47-17-5795EQMCBNVILC PROTEIN, SERUM (BLOOD)[facility] Work Phone: Comment on above:Expected: 08/28/2023, Expires: 11/27/2023Start: 08-28-2023 End: 34-51-2668YXFW ELECT SERUM WITH TOÑITO AND INTERPCMer[facility] Health [facility] Work Phone: Comment on above:Expected: 08/28/2023, Expires: 11/27/2023Start: 30-51-3574Ktncd-19 Vaccine ()Covid-19 Vaccine ()[facility]: 89-57-5487Hbfnvegyj vaccination [facility]: 47-68-1881Tintk depression screening assessmentDEPRESSION SCREENINGSCCI Hospital [facility]: 03-06-2023 End: 98-69-8282ZLK W Auto Differential panel - BloodCBC + DIFF Lab Routine Multiple myeloma not having achieved remission (HCC) Expected: 03/06/2023, Ex jamie: 05/06/2023[facility] Work Phone: Comment on above:Expected: 03/06/2023, Expires: 05/06/2023Start: 03-06-2023 End: 89-70-5591Chwbcszybtwjz metabolic 2000 panel - Serum or PlasmaCOMP METABOLIC PANEL Lab Routine Multiple myeloma not having achieved remission (HCC) Expected: 03/06/2023, Expires: 05/06/2023[facility] Work Phone: Comment on above:Expected: 03/06/2023, Expires: 05/06/2023Start: 03-06-2023 End: 07-58-0649GHBUCPYJBW PROTEIN, SERUM (BLOOD)MONOCLONAL PROTEIN, SERUM (BLOOD) Lab Routine Multiple myeloma not having achieved remission (HCC) E xpected: 03/06/2023, Expires: 05/06/2023[facility] Work Phone: Comment on above:Expected: 03/06/2023, Expires: 05/06/2023Start: 03-06-2023 End: 53-50-7556CPBN ELECT SERUM WITH TOÑITO AND INTERPPROT ELECT SERUM WITH TOÑITO AND INTERP Lab Routine Multiple myeloma not having achieved remission (HCC) Expected: 03/06/2023, Expires: 05/06/2023[facility] Work Phone: Comment on above:Expected: 03/06/2023, Expires: 05/06/2023Start: 12-05-2022 End: 56-49-6219TZC W Auto Differential panel - BloodCBC + DIFF Lab Routine Multiple myeloma not having achieved remission (HCC) Expected: 12/05/2022, Ex jamie: 02/04/2023[facility] Work Phone: Comment on above:Expected: 12/05/2022, Expires: 02/04/2023Start: 12-05-2022 End: 56-23-0032Olhtxxfkgwtdn metabolic 2000 panel - Serum or PlasmaCOMP METABOLIC PANEL Lab Routine Multiple myeloma not having achieved remission (HCC) Expected: 12/05/2022, Expires: 02/04/2023[facility] Work Phone: Comment on above:Expected: 12/05/2022, Expires: 02/04/2023Start: 12-05-2022 End: 98-34-7211AXYCTWSOHN PROTEIN, SERUM (BLOOD)MONOCLONAL PROTEIN, SERUM (BLOOD) Lab Routine Multiple myeloma not having achieved remission (HCC) E xpected: 12/05/2022, Expires: 02/04/2023[facility] Work Phone: Comment on above:Expected: 12/05/2022, Expires: 02/04/2023Start: 12-05-2022 End: 62-50-8956DQNL ELECT SERUM WITH TOÑITO AND INTERPPROT ELECT SERUM WITH TOÑITO AND INTERP Lab Routine Multiple myeloma not having achieved remission (HCC) Expected: 12/05/2022, Expires: 02/04/2023[facility] Work Phone: Comment on above:Expected: 12/05/2022, Expires: 02/04/2023Start: 63-98-2575KJOQZJX DIRECTIVE DISCUSSIONADVANCE DIRECTIVE DISCUSSIONClest. rita's hospital ClinicStart: 07-34-5710AIVLWVKETV ASSESSMENTDEPRESSION ASSESSMENTSCCI [facility]: 09-12-2022 End: 59-53-6274YGA W Auto Differential panel - BloodCBC + DIFF Lab Routine Multiple myeloma not having achieved remission (HCC) Paget disease of bone Type 2 diabetes mellitus without complication, with long-term current use of insulin (HCC) Elevated prostate specific antigen (PSA) Expected: 09/12/2022, Expires: 11/12/2022[facility] Work Phone: Comment on above:Expected: 09/12/2022, Expires: 11/12/2022Start: 09-12-2022 End: 22-56-4283Uzpgmnnnvwqbv metabolic 2000 panel - Serum or PlasmaCOMP METABOLIC PANEL Lab Routine Multiple myeloma not having achieved remission (HCC) Paget diseaseof bone Type 2 diabetes mellitus without complication, with long- term current use of insulin (HCC) Elevated prostate specific antigen (PSA) Expected: 09/12/2022, Expires: 11/12/2022[facility] Work Phone: Comment on above:Expected: 09/12/2022, Expires: 11/12/2022Start: 09-12-2022 End: 80-81-3723FNATBVZDKE PROTEIN, SERUM (BLOOD)MONOCLONAL PROTEIN, SERUM (BLOOD) Lab Routine Multiple myeloma not having achieved remission (HCC) Paget disease of bone Type 2 diabetes mellitus without complication, with long-term current use of insulin (HCC) Elevated prostate specific antigen (PSA) Expected: 09/12/2022, Expires: 11/12/2022[facility] Work Phone: Comment on above:Expected: 09/12/2022, Expires: 11/12/2022Start: 09-12-2022 End: 27-78-6341KHDM ELECT SERUM WITH TOÑITO AND INTERPPROT ELECT SERUM WITH TOÑITO AND INTERP Lab Routine Multiple myeloma not having achieved remission (HCC) Paget disease of bone Type 2 diabetes mellitus without complication, with long-term current use of insulin (HCC) Elevated prostate specific antigen (PSA) Expected: 09/12/2022, Expires: 11/12/2022[facility] Work Phone: Comment on above:Expected: 09/12/2022, Expires: 11/12/2022Start: 73-01-1809Oqhnx depression screening assessmentDEPRESSION SCREENINGSCCI Hospital [place]: 98-13-9509LBSNI-19 VACCINE (7 - Mixed Product risk series)COVID-19 VACCINE (7 - Mixed Product risk series)[facility] Start: 06-16-2022 End: 53-19-3607MLN W Auto Differential panel - BloodCBC + DIFF Lab Routine Multiple myeloma not having achieved remission (HCC) Expected: 06/16/2022, Ex jamie: 08/16/2022[facility] Work Phone: Comment on above:Expected: 06/16/2022, Expires: 08/16/2022tart: 06-16-2022 End: 36-05-1735Ckqotblppbdwd metabolic 2000 panel - Serum or PlasmaCOMP METABOLIC PANEL Lab Routine Multiple myeloma not having achieved remission (HCC) Expected: 06/16/2022, Expires: 08/16/2022[facility] Work Phone: Comment on above:Expected: 06/16/2022, Expires: 08/16/2022tart: 06-16-2022 End: 03-14-7525FYFHIBUXTV PROTEIN, SERUM (BLOOD)MONOCLONAL PROTEIN, SERUM (BLOOD) Lab Routine Multiple myeloma not having achieved remission (HCC) E xpected: 06/16/2022, Expires: 08/16/2022[facility] Work Phone: Comment on above:Expected: 06/16/2022, Expires: 08/16/2022tart: 06-16-2022 End: 07-80-1523YCFS ELECT SERUM WITH TOÑITO AND INTERPPROT ELECT SERUM WITH TOÑITO AND INTERP Lab Routine Multiple myeloma not having achieved remission (HCC) Expected: 06/16/2022, Expires: 08/16/2022[facility] Work Phone: Comment on above:Expected: 06/16/2022, Expires: 08/16/2022tart: 38-04-9069Rmhisufsb vaccinationINFLUENZA (#1)[facility] Start: 02-82-4021HQKJX-19 VACCINE (5 - Booster)COVID-19 VACCINE (5 - Booster) [facility]: 03-23-2022 End: 88-00-7044ILL W Auto Differential panel - BloodCBC + DIFF Lab Routine Multiple myeloma not having achieved remission (HCC) Expected: 03/23/2022, Ex jamie: 05/23/2022[facility] Work Phone: Comment on above:Expected: 03/23/2022, Expires: 05/23/2022tart: 03-23-2022 End: 17-89-6156Jnqajpzejnkfa metabolic 2000 panel - Serum or PlasmaCOMP METABOLIC PANEL Lab Routine Multiple myeloma not having achieved remission (HCC) Expected: 03/23/2022, Expires: 05/23/2022[facility] Work Phone: Comment on above:Expected: 03/23/2022, Expires: 05/23/2022tart: 03-23-2022 End: 02-54-0115DANXYSQMCC PROTEIN, SERUM (BLOOD)MONOCLONAL PROTEIN, SERUM (BLOOD) Lab Routine Multiple myeloma not having achieved remission (HCC) E xpected: 03/23/2022, Expires: 05/23/2022[facility] Work Phone: Comment on above:Expected: 03/23/2022, Expires: 05/23/2022tart: 03-23-2022 End: 18-37-9411RKDV ELECT SERUM WITH TOÑITO AND INTERPPROT ELECT SERUM WITH TOÑITO AND INTERP Lab Routine Multiple myeloma not having achieved remission (HCC) Expected: 03/23/2022, Expires: 05/23/2022[facility] Work Phone: Comment on above:Expected: 03/23/2022, Expires: 05/23/2022tart: 09-06-9897ALNNA-19 VACCINE (5 - Booster)COVID-19 VACCINE (5 - Booster)[facility]: 67-29-8012BDTFB-19 VACCINE (4 - Booster)COVID-19 VACCINE (4 - Booster)[facility]: 51-13-1360SZPPUAK DIRECTIVE DISCUSSIONADVANCE DIRECTIVE DISCUSSIONSCC[facility]: 09-24-2021 DEPRESSION ASSESSMENTDEPRESSION ASSESSMENTSCCI [facility]: 32-93-4765Vjdf Risk ScreeningFall Risk ScreeningProKettering Health Main Campustart: 2012 PNEUMOVAX AGE 65 AND OVER WITH 5YR LOOKBACK (#1)PNEUMOVAX AGE 65 AND OVER WITH 5YR LOOKBACK (#1)[facility]: 70-67-8476Sezwqcvlz B Vaccine (1 of 3 - Risk 3-dose series)Hepatitis B Vaccine (1 of 3 - Risk 3-dose series)[facility]: 92-22-7961KZP Vaccine (1 - 1-dose 60+ series)RSV Vaccine (1 - 1- dose 60+ series)[facility]: 12-70-4198Lamuctvlbaqadq of varicella zoster vaccineZoster (Shingles) Vaccine (1 of 2)Critical access hospitaltart: 78-64-5711FAUEOHZD VACCINE (1 of 2)SHINGRIX VACCINE (1 of 2)[facility] Start: 67-20-1801GDMSLDCMV (FIT-DNA)COLOGUARD (FIT-DNA)[facility]: 49-81-4414RsonubeiyvbJFDRBTHJOUZGgnwdykst ClinicStart: 28-63-9527CLGPFZHFEN CANCER SCREENINGCOLORECTAL CANCER SCREENINGSCCI [facility] [place]: 25-10-9187IV COLONOGRAPHYCT COLONOGRAPHYSCCI Hospital [place]: 93-78-7884JJHKQ OCCULT BLOOD FECAL OCCULT BLOODSCCI Hospital [facility]: 31-57-2257VBBGLIMXCKDAPVFKSTKRIVIWXE [facility]: 35-68-9011AYkX,Tdap and Td Vaccines (1 - Tdap)DTaP,Tdap and Td Vaccines (1 - Tdap)Critical access hospitaltart: 21-17-0122Zxgtumlyaqwn Vaccine: 50+ (1 of 2 - PCV)Pneumococcal Vaccine: 50+ (1 of 2 - PCV)[facility]: 98-01-2661BPSKLGTN VACCINE (1 of 2)SHINGRIX VACCINE (1 of 2) [facility]: 86-02-2411Zkdut microalbumin profileChildren'S Hospital For Rehabilitation Start: 40-16-1558XSFZKY PCP TEAM CHRONIC DISEASE VISITANNUAL PCP TEAM CHRONIC DISEASE VISITSCCI [facility] [place]: 95-04-5088Mznwybx ScreeningAnxiety Screening [facility]: 07-14-0865Iwrtvjflhd ScreeningDepression Screening [facility]: 73-88-8420Ghpifjmbs B surface antibody levelLDL CHOLESTEROLSCCI Hospital [facility]: 44-84-4742QMFRXVSNG C SCREENINGHEPATITIS C SCREENINGSCCI [facility] [place]: 86-96-8237Joxbkymbl C screeningHepatitis C ScreeningSCCI [facility] [place]: 06-39-6399Dlwznzdvjo ScreeningDepression ScreeningCritical access hospitaltart: comp foot exam completed DIABETIC FOOT EXAMSCCI Hospital [place]: 40-84-4693Oafrften foot examination Diabetic Foot ExamSCCI [facility] [place]: 71-67-6505Dqqnqufi screeningDilated Retinal ExamSCCI [facility] [place]: 26-46-2789Tiolpwwui B screeningURINE ALBUMIN:CREATININE RATIOSCCI Hospital [place]: 70-79-7118Czcztkaoj C antibody, confirmatory testDILATED RETINAL EXAMSCCI Hospital [place]: 1951 Pneumococcal Vaccine: 65+ (1 - PCV)Pneumococcal Vaccine: 65+ (1 - PCV)[facility] [place]: 70-44-2547Mgdadfaavzks Vaccine: 65+ (1 of 2 - PCV)Pneumococcal Vaccine: 65+ (1 of 2 - PCV)[facility] [place]: 27-59-4064VTDERRMOENWL: 65+ (1 - PCV)PNEUMOCOCCAL: 65+ (1 - PCV)[facility] [place]: 09-69-5188Zlnrlxljtk A1c bnytsetpbbcQpU5WHkzztkbmp ClinicStart: 09-41-2191Aipnudnvkx A1c/Hemoglobin.total in HolopBXE3IDuneujimy ClinicStart: 92-92-8605MMQMWTLFI AORTIC ANEURYSM SCREENINGABDOMINAL AORTIC ANEURYSM SCREENINGMetroHealth Main [facility] Immunizations Immunization DateImmunizationNotesCare SzvgooowLjsvirfg44-11-4082onvjocjlizj syncytial virus (RSV) vaccine, bivalent (ABRYSVO)Chair Lois Work Phone: [facility] RehabilitationEomtgp24-96-6306CTHQQ-10 vaccine (UNSPECIFIED)Porsche Adame [facility] Work Phone: [facility] RehabilitationQlpiey76-24-1995YVVUP-26 vaccine, age 12+ yr ([facility])Porsche Adame [facility] Work Phone: [facility] RehabilitationYhtqkw11-23-8159yjkjrlwhp, high-dose, quadrivalent vaccine (FLUZONE HIGH DOSE QUADRIVALENT)Porsche Adame [facility] Work Phone: [facility] RehabilitationDzetiv02-80-2739ddxzzsusx virus vaccine, unspecified formulationAinsley Woodson [facility] Work Phone: [facility] RehabilitationKherbl27-32-5918LWZPI-48 vaccine, age 12+ yr ([facility] - [facility])Porsche Adame [facility] Work Phone: [facility] RehabilitationZykjuj94-92-3782AVLEK-25 vaccine, age 12+ yr ([facility] Work Phone: [facility] RehabilitationJypqvt98-47-6161Offitios trivalent influenza vaccine, adjuvanted, preservative freeSt. Anthony'S Healthcare Centerceline [facility] Work Phone: [facility] RehabilitationTvypdv65-06-7469phjbbgjfe virus vaccine, unspecified formulationPorsche [facility] Work Phone: [facility] Payers DatePayer CategoryPayerPolicy ID2012MedicareMEDICARE MEDICARE A AND B [id number] 2012-Present [phone] [address] [address] [place] [address] [id number] 2012Medicare [id number] Health InsuranceBUT[facility] Member Subscriber Plan / Payer (Effective 2012- Present) Name: Zach Manuel Relation to Subscriber: Self Name: Zach Manuel Payer ID: Not on file Group ID: Not on file Type: Semaj Address: [address] [id number] UnknownFORE THOUGHT LIFE INSURANCE FORETHOUGHT SUPPLEMENT [id number] 2012- [phone] [address] [id number]3-2665MsisfspNRSN THOUGHT LIFE INSURANCE FORETHOUGHT SUPPLEMENT [id number] 2012- [phone] [place] [address] [id number] [id number] [id number] 1947Unknown [id number] 2.1.654301.3.57[id number] .1.143133.3.57[id number] .1.641697.3.57[id number] .1.541785.3.57[id number] .1.555834.3.57[id number] 2.1.368707.3.57[id number] 2.16840.1.872375.3.57[id number] 2.16840.1.667415.3.57[id number] 2.16840.1.545630.3.57[id number] 2.840.1.017577.3.57[id number] 2.0.1.324337.3.57[id number] 2.0.1.985240.3.57[id number] 2.0.1.522263.3.57[id number] 2.0.1.064800.3.57[id number] 2.840.1.140911.3.57[id number] 2.0.1.471331.3.57[id number] 2.0.1.295816.3.57[id number] 2.840.1.819786.3.57[id number] 2.0.1.625254.3.579.2.727Managed Care Other (unspecified) [id number] Social History DateTypeDetailFacilityStart: 88-17-2365Qghrwzd smoking status NHISEx-smoker [facility] Work Phone: Start: 09-24-1958 End: 89-50-5633Ucyrujw of tobacco useCurrent smokerChildren'S Hospital For Rehabilitation Work Phone: Start: 09-24-1958 End: 29-17-6333Trotwoh of tobacco useCigarette SmokerChildren'S Hospital For Rehabilitation Work Phone: Start: 11-28-2021 End: 52-07-3259Xithehy intakeCurrent non-drinker of alcohol (finding)[facility] [place]: 81-72-9722Paw Assigned At BirthNot on fileSCCI Hospital [place]: 01-14-2022 End: 05-45-6937Lwdjtjjx to SARS-CoV-2 (event)Not sureSCCI Hospital [place]: 10-20-2015 End: 03-94-5739Cqomkxllfw smoked current (pack per day) - Faohcumd2Hkgwkpoos ClinicStart: 10-20-2015 End: 69-13-0670Udibkik use and exposureSmokeless tobacco non-userSCCI Hospital [place]: 03-21-2022 End: 27-86-9624Hkruowu use panelChildren'S Hospital For RehabilitationNational Score (1-100), lower number is lower qpfz67VuxbmwflfSCCI Hospital [place]: 51-50-6961Nsgsatt smoking status NHISNever smoked tobaccoProBluffton Hospital SystemStart: 10-09-2024 End: 66-35-1865Fbrcnyjfq beverage intakeEx-drinker (finding)Critical access hospitaltart: 20-90-2917WojAlfp (finding)[facility] Medical Equipment Procedure CodeEquipment CodeEquipment Original TextEquipment IdentifierDatesLens Iol Sy60wf.195 [facility] [id number] - [id number] - [id number]: 55-79-4797Umjx Iol Sy60wf.215 [facility] [id number] - [id number] - [id number]: 11-20-2024 Functional Status VccuGnldduwhljCoviveIpkesnwg97-37-6309Hlo you deaf, or do you have serious difficulty hearingNo 04/09/2015 11:20 AM [facility] Selin Stapleton [facility] 17-00-1703Hyv you blind, or do you have serious difficulty seeing, even when wearing glassesNo 04/09/2015 11:20 AM Selin Sierra [facility] 05-69-6119Gn you have serious difficulty walking or climbing stairsNo 04/09/2015 11:20 AM Selin Sierra [facility]07-17-2015Do you have difficulty dressing or bathingNo 04/09/2015 11:20 AM [facility] Selin [facility]apleton [facility] HospitalTidmzj15-61-4358Psnlblu of a physical, mental, or emotional condition, do you have difficulty doing errands alone such as visiting a physician's office or shoppingNo 04/09/2015 11:20 AM [facility] Selin Stapleton [facility] Mental Status SbqpKxcmqrlgfjJncaorFmadixkj13-56-2836Igjnglp of a physical, mental, or emotional condition, do you have serious difficulty concentrating, remembering, or making decisionsNo 04/09/2015 11:20 AM [facility] Selin Stapleton [facility] Clinical Notes 01-24-2022 to 02-19-2025 Note Date & WaiiCvdvTbifglbm73-73-0850 Telephone encounter Note* Telephone Encounter - Bozena Roland RN - 02/19/2025 12:19 PM EDT Pt informed of BRM message, once verified, using 2 patient identifiers. Patient denies any questions, needs or concerns at this time. Appointment verified. Bozena Roland RN [facility]05-29-2025 Miscellaneous Notes* Telephone Encounter - Bozena Roland RN - 02/19/2025 12:19 PM EDT Pt informed of BRM message, once verified, using 2 patient identifiers. Patient denies any questions, needs or concerns at this time. Appointment verified. Bozena Roland RN documented in this encounterChildren'S Hospital For Rehabilitation05-26-2025 NoteHNO ID: [id number] Author: URIEL GUNTER MD Service: ? Author [...] mellitus (HCC) Hyperlipidemia Monoclonal gammopathy 11/2002 IgG Gravette Multiple myeloma (HCC) 2002 Ulcerative colitis (HCC) [...] for metastases. 08/18/2019 - Bone survey at [facility] Conclusion: Scattered lytic lesions, stable in num (more content not included)...[facility]05-26-2025 History of Present illness Narrative* Uriel Gunter MD - 02/16/2025 7:32 AM EDT PATIENT NAME: Zach Manuel DATE: 02/17/2025 PRIMARY [...] 1 week off, plus dexamethasone 8 mg weekly.He is tolerating these medications well. He denies [...] mellitus (HCC) Hyperlipidemia Monoclonal gammopathy 11/2002 IgG Gravette Multiple myeloma (HCC) 2002 Ulcerative colitis (HCC) [...] for metastases. 08/18/2019 - Bone survey at [facility] Conclusion: Scattered lytic lesions, stable in number and size from prior exams. 05/06/2018 - Bone Survey at [facility] Scattered lytic lesions, stable in both [...] At the time of diagnosis the patient hadminimal disease, was asymptomatic, and observation was recommended. Disease progression in 2008. The patient received first line therapy with lenalidomide and Decadron given August 2009through March 2010 which led to a partial response. Maintenance treatment with low-dose lenalidomidegiven August 2010 through October 2010, stopped due to adverse effects. The patient subsequentlywas observed. Disease progression August 2019. Treatment resumed with low dose Revlimid 10 mg daily, 3 weeks onand one-week off plus Decadron 4 mg weekly on 09/15/2019. The patient's paraprotein subsequently improved significantly. By November 2020 the patient developed musculoskeletal cramps which he attributedto the Revlimid, and he elected to stop [...] worsens. Uriel Gunter MD documented in this encounterChildren'S Hospital For Rehabilitation02-26-2025 Nurse Note* Perioperative Nursing Note - Nilam Ortiz RN - 11/19/2024 10:32 AM EST Preoperative Education Checklist- General Surgery date: 11/20/24 Surgery time: 945a Arrival time: 745a 1. Bring a photo ID and your insurance card with you the day of surgery. You will check in at the main lobby of the [facility]- registration desk is straight ahead as soon as you walk in. Tell them you are here for surgery. 2. If you have a Living Will/Durable Power of Buckle Wire Inserter for Health Care that is not on [...] after you have bathed. 5. NO nail turkish/acrylic on at least one finger. If you are having a hand, wrist or foot surgery then all nail turkish and artificial/acrylic nails must be removed from [...] least 8 hours and marijuana for 24 hoursprior to arrival for your surgery. 16. If [...] please call the Preadmission Testing office at [phone], Mon.-Fri. 7 a.m.-3 p.m. Leave a voicemail [...] Stop taking 0 days prior to procedure [facility]02-26-2025 Miscellaneous Notes* Perioperative Nursing Note - Nilam Ortiz RN - 11/19/2024 10:32 AM EST Preoperative Education Checklist- General Surgery date: 11/20/24 Surgery time: 945a Arrival time: 745a 1. Bring a photo ID and your insurance card with you the day of surgery. You will check in at the main lobby of the [facility]- registration desk is straight ahead as soon as you walk in. Tell them you are here for surgery. 2. If you have a Living Will/Durable Power of Buckle Wire Inserter for Health Care that is not on [...] after you have bathed. 5. NO nail turkish/acrylic on at least one finger. If you are having a hand, wrist or foot surgery then all nail turkish and artificial/acrylic nails must be removed from [...] least 8 hours and marijuana for 24 hoursprior to arrival for your surgery. 16. If [...] please call the Preadmission Testing office at [phone], Mon.-Fri. 7 a.m.-3 p.m. Leave a voicemail [...] days prior to procedure documented in this encounterOur [facility]01-17-2025 Telephone encounter Note* Telephone Encounter - Ainsley Woodson RP - 10/10/2024 9:25 AM EST Zach called requesting a refill on his revlimid. He is on his off week starting 10/11/24 and would like the script shipped to his house. Thank you- Dustin Woodson PharmD, JUANOP [facility] Work Phone: [phone] Miscellaneous Notes* Telephone Encounter - Ainsley Woodson RPh - 10/10/2024 9:25 AM EST Zach called requesting a refill on his revlimid. He is on his off week starting 10/11/24 and would like the script shipped to his house. Thank you- Dustin Woodson PharmD, BCOP documented in this encounterChildren'S Hospital For Rehabilitation01-16-2025 Instructions* Patient Instructions* Nilam Ortiz RN - 10/09/2024 9:45 AM EST Preoperative Education Checklist- General Surgery date: 10/30/24 Surgery time: 945a Arrival time: 745a 1. Bring a photo ID and your insurance card with you the day of surgery. You will check in at the main lobby of the [facility]- registration desk is straight ahead as soon as you walk in. Tell them you are here for surgery. 2. If you have a Living Will/Durable Power of Buckle Wire Inserter for Health Care that is not on [...] after you have bathed. 5. NO nail turkish/acrylic on at least one finger. If you are having a hand, wrist or foot surgery then all nail turkish and artificial/acrylic nails must be removed from [...] least 8 hours and marijuana for 24 hoursprior to arrival for your surgery. 16. If [...] please call the Preadmission Testing office at [phone], Mon.-Fri. 7 a.m.-3 p.m. Leave a voicemail [...] days prior to procedure documented in this encounterOur [facility] of [facility]09-05-2024 Telephone encounter Note* Telephone Encounter - Juan Ferguson RN - 05/29/2024 12:22 PM EDT Pt and spouse notified and verbalizes understanding. Juan Ferguson RN [facility] Work Phone: 1(433) 198-445109-05-2024 Miscellaneous Notes* Telephone Encounter - Juan Ferguson RN - 05/29/2024 12:22 PM EDT Pt and spouse notified and verbalizes understanding. Juan Ferguson RN * Telephone Encounter - Juan Ferguson RN - 05/29/2024 12:21 PM EDT ----- Message from Latrice Hilario PA-C sent at 05/29/2024 11:58 AM EDT ----- Please call with stable myeloma labs documented in this encounterChildren'S Hospital For Rehabilitation09-05-2024 Telephone encounter Note * Telephone Encounter - Juan Ferguson RN - 05/29/2024 12:21 PM EDT ----- Message from Latrice Hilario PA-C sent at 05/29/2024 11:58 AM EDT ----- Please call with stable myeloma labs [facility]09-03-2024 Telephone encounter Note* Telephone Encounter - Juan Ferguson RN - 05/27/2024 2:23 PM EDT Pt's spouse notified and verbalizes understanding. Juan Ferguson RN [facility] Work Phone: 1(833) 752-514109-03-2024 Miscellaneous Notes* Telephone Encounter - Juan Ferguson RN - 05/27/2024 2:23 PM EDT Pt's spouse notified and verbalizes understanding. Juan Sessler, RN * Telephone Encounter - Latrice Hilario PA-C - 05/27/2024 1:29 PM EDT Please call with a stable kidney function. Latrice Hilario PA-C documented in this encounterChildren'S Hospital For Rehabilitation09-03-2024 Telephone encounter Note * Telephone Encounter - Latrice Hilario PA-C - 05/27/2024 1:29 PM EDT Please call with a stable kidney function. Latrice Hilario PA-C [facility] Work Phone: 1(539) 150-610709-03-2024 NoteHNO ID: [id number] Author: LATRICE HILARIO PA-C Service: ? Author Type: Physician Radiation Safety Officer Type: Progress Notes Filed: 05/27/2024 13:29 Note [...] date: Hyperlipidemia 11/2002: Monoclonal gammopathy Comment: IgG Gravette 2003: Multiple myeloma (HCC) No date: Ulcerative [...] for metastases. 08/18/2019 - Bone survey at [facility] Conclusion: Scattered lytic lesions, stable in number and size from prior exams. 05/06/2018 - Bon (more content not included)...[facility] 05-27-2024 History of Present illness Narrative* Latrice Hilario PA-C - 05/27/2024 12:45 PM EDT PATIENT NAME: Zach Manuel DATE: 02/26/2024 PRIMARY [...] with 7 days of and dex 8 mgweekly. He did bump his arm left arm [...] date: Hyperlipidemia 11/2002: Monoclonal gammopathy Comment: IgG Gravette 2002: Multiple myeloma (HCC) No date: Ulcerative [...] for metastases. 08/18/2019 - Bone survey at [facility] Conclusion: Scattered lytic lesions, stable in number and size from prior exams. 05/06/2018 - Bone Survey at [facility] Scattered lytic lesions, stable in both [...] At the time of diagnosis the patient hadminimal disease, was asymptomatic, and observation was recommended. Disease progression in 2008. The patient received first line therapy with lenalidomide and Decadron given August 2009through March 2010 which led to a partial response. Maintenance treatment with low-dose lenalidomidegiven August 2010 through October 2010, stopped due to adverse effects. The patient subsequentlywas observed. Disease progression August 2019. Treatment resumed with low dose Revlimid 10 mg daily, 3 weeks onand one-week off plus Decadron 4 mg weekly on 09/15/2019. The patient's paraprotein subsequently improved significantly. By November 2020 the patient developed musculoskeletal cramps which he attributedto the Revlimid, and he elected to stop [...] He will returnin 3 months for labs, follow-upand Aredia. If his paraprotein levels increase we [...] which included preparing to see the patient, uokb-jd-pnyl patient care, completing clinical documentation, performing a medically appropriate examination, counseling and educating the patient/family/caregiver, ordering medications, tests, or p rocedures, independently interpreting results (not separately reported), communicating results to the patient/family/caregiver, and care coordination (not separately reported). documented in this encounterChildren'S Hospital For Rehabilitation08-27-2024 Telephone encounter Note * Telephone Encounter - Irma Talavera MA - 05/20/2024 10:35 AM EDT Patient has an appt on 05/27/24. Would you like labs, if so place orders. Irma Talavera MA [facility]08-27-2024 Miscellaneous Notes* Telephone Encounter - Irma Fitzgerald MA - 05/20/2024 10:35 AM EDT Patient has an appt on 05/27/24. Would you like labs, if so place orders. Irma Talavera MA documented in this encounterChildren'S Hospital For Rehabilitation06-07-2024 Telephone encounter Note * Telephone Encounter - Juan Ferguson RN - 02/29/2024 8:52 AM EDT Pt notified and verbalizes understanding. Juan Ferguson RN [facility] Work Phone: [phone] 703-743406-07-2024 Telephone encounter Note* Telephone Encounter - Juan Ferguson RN - 02/29/2024 8:52 AM EDT ----- Message from Latrice Hilario PA-C sent at 02/29/2024 8:10 AM EDT ----- Please let patient know his labs are stable and we will continue to monitor [facility]06-07-2024 Miscellaneous Notes* Telephone Encounter - Juan Ferguson RN - 02/29/2024 8:52 AM EDT Pt notified and verbalizes understanding. Juan Ferguson RN * Telephone Encounter - Juan Ferguson RN - 02/29/2024 8:52 AM EDT ----- Message from Latrice Hilario PA-C sent at 02/29/2024 8:10 AM EDT ----- Please let patient know his labs are stable and we will continue to monitor documented in this encounterChildren'S Hospital For Rehabilitation06-03-2024 NoteHNO ID: [id number] Author: URIEL GUNTER MD Service: ? Author [...] mellitus (HCC) Hyperlipidemia Monoclonal gammopathy 11/2002 IgG Gravette Multiple myeloma (HCC) 2002 Ulcerative colitis (HCC) [...] osseous lesions s (more content not included)... [facility]06-03-2024 History of Present illness Narrative* Uriel Gunter MD - 02/25/2024 10:14 PM EDT PATIENT NAME: Zach Manuel DATE: 02/26/2024 PRIMARY [...] plus Decadron 8 mg weekly. He is toleratinghis medications well. He feels well today with [...] mellitus (HCC) Hyperlipidemia Monoclonal gammopathy 11/2002 IgG Gravette Multiple myeloma (HCC) 2002 Ulcerative colitis (HCC) [...] for metastases. 08/18/2019 - Bone survey at [facility] Conclusion: Scattered lytic lesions, stable in number and size from prior exams. 05/06/2018 - Bone Survey at [facility] Scattered lytic lesions, stable in both number and size from the prior exam. LABORATORY DATA: Hemoglobin (g/dL) Date Value 02/26/2024 12.9 09/27/2021 13.4 Hematocrit (%) Date Value 02/26/2024 38.0 09/27/2021 38.0 WBC (k/uL) Date Value 02/26/2024 6.65 09/27/2021 5.92 Platelet Count (k/uL) Date Value 02/26/2024 203 09/27/2021 189 PSA 12/10/2020 4.94 03/14/2022 5.40 03/06/2023 3.58 ASSESSMENT/PLAN: 1. Multiple myeloma (primary diagnosis) IgG kappa multiple myeloma initially diagnosed November 2002. At the time of diagnosis the patient hadminimal disease, was asymptomatic, and observation was recommended. Disease progression in 2008. The patient received first line therapy with lenalidomide and Decadron given August 2009through March 2010 which led to a partial response. Maintenance treatment with low-dose lenalidomidegiven August 2010 through October 2010, stopped due to adverse effects. The patient subsequentlywas observed. Disease progression August 2019. Treatment resumed with low dose Revlimid 10 mg daily, 3 weeks onand one-week off plus Decadron 4 mg weekly on 09/15/2019. The patient's paraprotein subsequently improved significantly. By November 2020 the patient developed musculoskeletal cramps which he attributedto the Revlimid, and he elected to stop [...] current treatment. He will return in 3 monthsfor follow-up and labs. If his paraprotein levels [...] worsens. Uriel Gunter MD documented in this encounterChildren'S Hospital For Rehabilitation03-05-2024 History of Present illness Narrative* Becca Lane APRN.BRINE MIXER OPERATOR - 11/27/2023 1:08 PM EST PATIENT NAME: Zach Manuel DATE: 11/27/2023 PRIMARY [...] INSTILL 2 DROPS INTO AFFECTED EYE 4 TIMESDAILY istnfynt-tzminoemj-pdxpssgpyipwuj (CORTISPORIN) otic solution INSTILL 3 4 DROPS [...] mellitus (HCC) Hyperlipidemia Monoclonal gammopathy 11/2002 IgG Gravette Multiple myeloma (HCC) 2002 Ulcerative colitis (HCC) [...] for metastases. 08/18/2019 - Bone survey at [facility] Conclusion: Scattered lytic lesions, stable in number and size from prior exams. 05/06/2018 - Bone Survey at [facility] Scattered lytic lesions, stable in both number and size from the prior exam. LABORATORY DATA: Hemoglobin (g/dL) Date Value 11/27/2023 13.3 09/27/2021 13.4 Hematocrit (%) Date Value 11/27/2023 39.1 09/27/2021 38.0 WBC (k/uL) Date Value 11/27/2023 4.01 09/27/2021 5.92 Platelet Count (k/uL) Date Value 11/27/2023 203 09/27/2021 189 PSA 12/10/2020 4.94 03/14/2022 5.40 03/06/2023 3.58 ASSESSMENT/PLAN: 1. .00 Multiple myeloma (primary diagnosis) IgG kappa multiple myeloma initially diagnosed November 2002. At the time of diagnosis the patient hadminimal disease, was asymptomatic, and observation was recommended. Disease progression in 2008. The patient received first line therapy with lenalidomide and Decadron given August 2009through March 2010 which led to a partial response. Maintenance treatment with low-dose lenalidomidegiven August 2010 through October 2010, stopped due to adverse effects. The patient subsequentlywas observed. Disease progression August 2019. Treatment resumed with low dose Revlimid 10 mg daily, 3 weeks onand one-week off plus Decadron 4 mg weekly on 09/15/2019. The patient's paraprotein subsequently improved significantly. By November 2020 the patient developed musculoskeletal cramps which he attributedto the Revlimid, and he elected to stop [...] current treatment. He will return in 3 monthsfor follow-up and labs. If his paraprotein levels [...] considered if renal function worsens. Becca Lane APRN.PASTORA I spent a total of 30 minutes on the date of the service which included preparing to see the patient, kqrd-um-rcda patient care, completing clinical documentation, obtaining and/or reviewing separately obtained history, performing a medically appropriate examination, counseling and educating the pat ient/family/caregiver, ordering medications, tests, or procedures, independently interpreting results (not separately reported), and communicating results to the patient/family/caregiver. documented in this encounterChildren'S [facility]03-01-2024 Miscellaneous Notes* Telephone Encounter - Monica Baptiste - 11/23/2023 11:56 AM EST Patient has an appt on 11/26. Would you like labs? documented in this encounterChildren'S Hospital For Rehabilitation12-05-2023 History of Present illness Narrative* Uriel Gunter MD - 08/28/2023 7:12 AM EST PATIENT NAME: Zach Manuel DATE: 08/28/2023 PRIMARY [...] he underwent a tooth extraction in June andhas healed well. No ongoing dental problems. Otherwise [...] INSTILL 2 DROPS INTO AFFECTED EYE 4 TIMESDAILY koswkyde-spyydpxsy-jyhbibzpghlmwz (CORTISPORIN) otic solution INSTILL 3 4 DROPS [...] mellitus (HCC) Hyperlipidemia Monoclonal gammopathy 11/2002 IgG Gravette Multiple myeloma (HCC) 2002 Ulcerative colitis (HCC) [...] for metastases. 08/18/2019 - Bone survey at [facility] Conclusion: Scattered lytic lesions, stable in number and size from prior exams. 05/06/2018 - Bone Survey at [facility] Scattered lytic lesions, stable in both [...] At the time of diagnosis the patient hadminimal disease, was asymptomatic, and observation was recommended. Disease progression in 2008. The patient received first line therapy with lenalidomide and Decadron given August 2009through March 2010 which led to a partial response. Maintenance treatment with low-dose lenalidomidegiven August 2010 through October 2010, stopped due to adverse effects. The patient subsequentlywas observed. Disease progression August 2019. Treatment resumed with low dose Revlimid 10 mg daily, 3 weeks onand one-week off plus Decadron 4 mg weekly on 09/15/2019. The patient's paraprotein subsequently improved significantly. By November 2020 the patient developed musculoskeletal cramps which he attributedto the Revlimid, and he elected to stop [...] worsens. Uriel Gunter MD documented in this encounterChildren'S Hospital For Rehabilitation09-07-2023 Miscellaneous Notes* Telephone Encounter - Bozena Roland RN - 05/31/2023 2:44 PM EDT Pt informed of BRJessica message. He denies any questions or concerns at this time. Appt verifed Bozena Roland RN * Telephone Encounter - Bozena Roland RN - 05/31/2023 2:44 PM EDT ----- Message from Uriel Gunter MD sent at 05/31/2023 12:08 PM EDT ----- Please inform the patient that his protein analysis is stable which is excellent news. We will continue as planned. documented in this encounterChildren'S Hospital For Rehabilitation09-05-2023 History of Present illness Narrative* Uriel Gunter MD - 05/29/2023 7:20 AM EDT PATIENT NAME: Zach Manuel DATE: 05/29/2023 PRIMARY [...] INSTILL 2 DROPS INTO AFFECTED EYE 4 TIMESDAILY ykbearhm-zahqjtspf-vifakhykcofiyl (CORTISPORIN) otic solution INSTILL 3 4 DROPS [...] mellitus (HCC) Hyperlipidemia Monoclonal gammopathy 11/2002 IgG Gravette Multiple myeloma (HCC) 2002 Ulcerative colitis (HCC) [...] for metastases. 08/18/2019 - Bone survey at [facility] Conclusion: Scattered lytic lesions, stable in number and size from prior exams. 05/06/2018 - Bone Survey at [facility] Scattered lytic lesions, stable in both [...] At the time of diagnosis the patient hadminimal disease, was asymptomatic, and observation was recommended. Disease progression in 2008. The patient received first line therapy with lenalidomide and Decadron given August 2009through March 2010 which led to a partial response. Maintenance treatment with low-dose lenalidomidegiven August 2010 through October 2010, stopped due to adverse effects. The patient subsequentlywas observed. Disease progression August 2019. Treatment resumed with low dose Revlimid 10 mg daily, 3 weeks onand one-week off plus Decadron 4 mg weekly on 09/15/2019. The patient's paraprotein subsequently improved significantly. By November 2020 the patient developed musculoskeletal cramps which he attributedto the Revlimid, and he elected to stop [...] worsens. Uriel Gunter MD documented in this encounterChildren'S Hospital For Rehabilitation06-06-2023 Miscellaneous Notes* Telephone Encounter - Monica Baptiste - 02/27/2023 3:42 PM EDT Patient has an OTV appointment on 03/06. Please place lab orders. Monica Baptiste documented in this encounterChildren'S Hospital For Rehabilitation03-14-2023 History of Present illness Narrative* Uriel Gunter MD - 12/05/2022 7:10 AM EDT PATIENT NAME: Zach Manuel DATE: 12/05/2022 PRIMARY CARE PHYSICIAN: Dr. Hanna Mathias OTHER PHYSICIANS: Dr. Lewis, Dr. Martinez Portions of this encounter note have been copied from the note from 09/12/2022 and has been updatedwhere appropriate, and reflect my current medical decision [...] off plus Decadron 8 mg weekly. He istolerating these medications well. Since his last visit he has had no unusual pain. No signs of bleeding or bruising. Overall he feelswell with no particular complaints. MEDICATIONS: lenalidomide (REVLIMID) [...] INSTILL 2 DROPS INTO AFFECTED EYE 4 TIMESDAILY axttabug-mtniigaec-ofqiezqhfzksup (CORTISPORIN) otic solution INSTILL 3 4 DROPS [...] mellitus (HCC) Hyperlipidemia Monoclonal gammopathy 11/2002 IgG Gravette Multiple myeloma (HCC) 2002 Ulcerative colitis (HCC) [...] for metastases. 08/18/2019 - Bone survey at [facility] Conclusion: Scattered lytic lesions, stable in number and size from prior exams. 05/06/2018 - Bone Survey at [facility] Scattered lytic lesions, stable in both [...] At the time of diagnosis the patient hadminimal disease, was asymptomatic, and observation was recommended. Disease progression in 2008. The patient received first line therapy with lenalidomide and Decadron given August 2009through March 2010 which led to a partial response. Maintenance treatment with low-dose lenalidomidegiven August 2010 through October 2010, stopped due to adverse effects. The patient subsequentlywas observed. Disease progression August 2019. Treatment resumed with low dose Revlimid 10 mg daily, 3 weeks onand one-week off plus Decadron 4 mg weekly on 09/15/2019. The patient's paraprotein subsequently improved significantly. By November 2020 the patient developed musculoskeletal cramps which he attributedto the Revlimid, and he elected to stop [...] PCP/urology. Uriel Gunter MD documented in this encounterChildren'S Hospital For Rehabilitation03-06-2023 Miscellaneous Notes* Addendum Note - Uriel Gunter MD - 11/27/2022 1:06 PM ESTAddended by: URIEL GUNTER on: 11/27/2022 01:06 PM Modules accepted: Orders * Telephone Encounter - Selin Stapleton - 11/27/2022 10:49 AM EST Patient coming in on Sunday12/05/22 for follow up treatment. Please add lab orders. Thanks, Selin Stapleton MA documented in this encounterChildren'S Hospital For Rehabilitation12-29-2022 Miscellaneous Notes* Telephone Encounter - Ainsley Woodson [facility] - 09/21/2022 4:31 PM EST Please sign in everyone's absence. Thank you Dustin Woodson [facility] documented in this encounterChildren'S Hospital For Rehabilitation12-20-2022 History of Present illness Narrative* Uriel Gunter MD - 09/12/2022 8:23 AM EST PATIENT NAME: Zach Manuel DATE: 09/12/2022 PRIMARY [...] off plus Decadron 8 mg weekly. He istolerating medications well. Since his last visit he [...] INSTILL 2 DROPS INTO AFFECTED EYE 4 TIMESDAILY dppycttp-zmdmeaquj-iifyebyptmlfzd (CORTISPORIN) otic solution INSTILL 3 4 DROPS [...] mellitus (HCC) Hyperlipidemia Monoclonal gammopathy 11/2002 IgG Gravette Multiple myeloma (HCC) 2002 Ulcerative colitis (HCC) [...] for metastases. 08/18/2019 - Bone survey at [facility] Conclusion: Scattered lytic lesions, stable in number and size from prior exams. 05/06/2018 - Bone Survey at [facility] Scattered lytic lesions, stable in both number and size from the prior exam. LABORATORY DATA: Hemoglobin (g/dL) Date Value 09/12/2022 14.4 09/27/2021 13.4 Hematocrit (%) Date Value 09/12/2022 41.5 09/27/2021 38.0 WBC (k/uL) Date Value 09/12/2022 5.87 09/27/2021 5.92 Platelet Count (k/uL) Date Value 09/12/2022 187 09/27/2021 189 PSA 12/10/2020 4.94 03/14/2022 5.40 ASSESSMENT/PLAN: 1 203.00 Multiple myeloma (primary diagnosis) IgG kappa multiple myeloma initially diagnosed November 2002. At the time of diagnosis the patient hadminimal disease, was asymptomatic, and observation was recommended. Disease progression in 2008. The patient received first line therapy with lenalidomide and Decadron given August 2009through March 2010 which led to a partial response. Maintenance treatment with low-dose lenalidomidegiven August 2010 through October 2010, stopped due to adverse effects. The patient subsequentlywas observed. Disease progression August 2019. Treatment resumed with low dose Revlimid 10 mg daily, 3 weeks onand one-week off plus Decadron 4 mg weekly on 09/15/2019. The patient's paraprotein subsequently improved significantly. By November 2020 the patient developed musculoskeletal cramps which he attributedto the Revlimid, and he elected to stop [...] treatment. We will see him back in 12weeks for follow-up. 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 Uriel Gunter MD documented in this encounterChildren'S Hospital For Rehabilitation09-27-2022 History of Present illness Narrative* Ese Ferro RN - 06/20/2022 3:21 PM EDT Recommendations per pharmacist Humaira Woodson [facility] for patient to take calcium with Vit D 1 tab twice daily especially as his calcium levels normally run low. Patient education complete with printed material. Questions answered as appropriate. He was encouraged to call with questions or concerns. Ese Ferro RN documented in this encounterChildren'S Hospital For Rehabilitation09-27-2022 History of Present illness Narrative* Becca Lane APRN.PASTORA - 06/20/2022 1:00 PM EDT PATIENT NAME: Zach Manuel DATE: 06/20/2022 PRIMARY [...] on Revlimid 5 mg daily for 21 dayson and 7 days off. He also takes [...] INSTILL 2 DROPS INTO AFFECTED EYE 4 TIMESDAILY afftbmmn-eeyzmqgbb-leqpqrodulfqch (CORTISPORIN) otic solution INSTILL 3 4 DROPS [...] mellitus (HCC) Hyperlipidemia Monoclonal gammopathy 11/2002 IgG Gravette Multiple myeloma (HCC) 2002 Ulcerative colitis (HCC) [...] for metastases. 08/18/2019 - Bone survey at [facility] Conclusion: Scattered lytic lesions, stable in number and size from prior exams. 05/06/2018 - Bone Survey at [facility] Scattered lytic lesions, stable in both number and size from the prior exam. LABORATORY DATA: Hemoglobin (g/dL) Date Value 06/20/2022 12.9 09/27/2021 13.4 Hematocrit (%) Date Value 06/20/2022 37.1 09/27/2021 38.0 WBC (k/uL) Date Value 06/20/2022 4.57 09/27/2021 5.92 Platelet Count (k/uL) Date Value 06/20/2022 234 09/27/2021 189 03/14/2022 PSA 5.4, 19.1% free 12/10/2020 PSA 4.94, 35% free ASSESSMENT/PLAN: 203.00 Multiple myeloma (primary diagnosis) IgG kappa multiple myeloma initially diagnosed November 2002. At the time of diagnosis the patient hadminimal disease, was asymptomatic, and observation was recommended. Disease progression in 2008. The patient received first line therapy with lenalidomide and Decadron given August 2009through March 2010 which led to a partial response. Maintenance treatment with low-dose lenalidomidegiven August 2010 through October 2010, stopped due to adverse effects. The patient subsequentlywas observed. Disease progression August 2019. Treatment resumed with low dose Revlimid 10 mg daily, 3 weeks onand one-week off plus Decadron 4 mg weekly on 09/15/2019. The patient's paraprotein subsequently improved significantly. By November 2020 the patient developed musculoskeletal cramps which he attributedto the Revlimid, and he elected to stop the Revlimid after 12/05/2020. Labs obtained 03/08/2021 showed his M spike increased, and the patient resumed treatment with Revlimid 5 mg daily 21 days on and 7days off plus Decadron 8 mg weekly as of February 2021. Currently the patient is clinically stable and his labs are slowly improving. At this time the patient will continue as is with his current treatment. We will see him back in 12weeks for follow-up. 2. 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 Consider repeat prostateMRI if the PSA worsen significantly. Becca Lane APRN.BRINE MIXER OPERATOR documented in this encounterChildren'S Hospital For Rehabilitation09-27-2022 Miscellaneous Notes* Telephone Encounter - Juan Ferguson RN - 06/20/2022 8:56 AM EDT Pt due for Aredia today. Pharmacy suggests checking pt's Calcium level w/ today's labs. Order pended. Juan Ferguson RN documented in this encounterChildren'S Hospital For Rehabilitation09-23-2022 Miscellaneous Notes* Telephone Encounter - Becca Lane APRN.CNP - 06/16/2022 3:17 PM EDT Please sign for Dr. Gunter since he is out of the office. Thanks, Becca Lane APRN.CNP documented in this encounterChildren'S Hospital For Rehabilitation09-22-2022 Miscellaneous Notes* Telephone Encounter - Monica Baptiste - 06/15/2022 2:38 PM EDT Patient has an appt on 06/20. Would you like labs? documented in this encounterChildren'S Hospital For Rehabilitation07-28-2022 Miscellaneous Notes* Telephone Encounter - Uriel Gunter MD - 04/20/2022 11:45 AM EDT Signed documented in this encounterChildren'S Hospital For Rehabilitation07-06-2022 Miscellaneous Notes* Telephone Encounter - Quita Antoine RPh - 2022 3:29 PM EDT New benjamin obtained through [email or web address] for $[id number] on ID# [id number] Enrollment 02/27/2022 through 02/26/2023 documented in this encounterChildren'S Hospital For Rehabilitation07-01-2022 Miscellaneous Notes* Telephone Encounter - Funmilayo Arriola RN - 03/24/2022 11:34 AM EDT Informed pt's of Dr Gunter's message. Janett verbalized understanding and denies further needsat this time. Funmilayo Arriola RN * Telephone Encounter - Funmilayo Arriola RN - 03/24/2022 11:29 AM EDT ----- Message from Uriel Gunter MD sent at 03/23/2022 4:50 PM EDT ----- Please inform the patient that his labs are stable, M spike down to 0.68. We will continue as planned. TAYLOR Avery documented in this encounterChildren'S Hospital For Rehabilitation06-28-2022 History of Present illness Narrative* Uriel Gunter MD - 03/21/2022 7:50 AM EDT PATIENT NAME: Zach Manuel DATE: 03/21/2022 PRIMARY [...] significance of his elevated PSA. Labs 03/14/2022 revealeda PSA of 5.4 with 19.1% free. His [...] INSTILL 2 DROPS INTO AFFECTED EYE 4 TIMESDAILY inswezzd-zcyohpfpt-safszykhbraehi (CORTISPORIN) otic solution INSTILL 3 4 DROPS [...] mellitus (HCC) Hyperlipidemia Monoclonal gammopathy 11/2002 IgG Gravette Multiple myeloma (HCC) 2002 Ulcerative colitis (HCC) [...] for metastases. 08/18/2019 - Bone survey at [facility] Conclusion: Scattered lytic lesions, stable in number and size from prior exams. 05/06/2018 - Bone Survey at [facility] Scattered lytic lesions, stable in both number and size from the prior exam. LABORATORY DATA: Hemoglobin (g/dL) Date Value 03/21/2022 13.2 09/27/2021 13.4 Hematocrit (%) Date Value 03/21/2022 37.7 09/27/2021 38.0 WBC (k/uL) Date Value 03/21/2022 5.62 09/27/2021 5.92 Platelet Count (k/uL) Date Value 03/21/2022 160 09/27/2021 189 03/14/2022 PSA 5.4, 19.1% free 12/10/2020 PSA 4.94, 35% free ASSESSMENT/PLAN: .00 Multiple myeloma (primary diagnosis) IgG kappa multiple myeloma initially diagnosed November 2002. At the time of diagnosis the patient hadminimal disease, was asymptomatic, and observation was recommended. Disease progression in 2008. The patient received first line therapy with lenalidomide and Decadron given August 2009through March 2010 which led to a partial response. Maintenance treatment with low-dose lenalidomidegiven August 2010 through October 2010, stopped due to adverse effects. The patient subsequentlywas observed. Disease progression August 2019. Treatment resumed with low dose Revlimid 10 mg daily, 3 weeks onand one-week off plus Decadron 4 mg weekly on 09/15/2019. The patient's paraprotein subsequently improved significantly. By November 2020 the patient developed musculoskeletal cramps which he attributedto the Revlimid, and he elected to stop the Revlimid after 12/05/2020. Labs obtained 03/08/2021 showed his M spike increased, and the patient resumed treatment with Revlimid 5 mg daily 21 days on and 7days off plus Decadron 8 mg weekly as [...] repeat labs every 6 months. Consider repeat prostateMRI if the PSA worsen significantly. Uriel Gunter MD documented in this encounterChildren'S Hospital For Rehabilitation06-03-2022 Miscellaneous Notes* Telephone Encounter - Uriel Gunter MD - 02/24/2022 3:24 PM EDT Signed. documented in this encounterChildren'S Hospital For Rehabilitation05-03-2022 History of Present illness Narrative* Uriel Gunter MD - 01/24/2022 7:25 AM EDT PATIENT NAME: Zach Manuel DATE: 01/24/2022 PRIMARY [...] INSTILL 2 DROPS INTO AFFECTED EYE 4 TIMESDAILY wirfbdmj-npvnsidpg-usmqikwlreujpz (CORTISPORIN) otic solution INSTILL 3 4 DROPS [...] mellitus (HCC) Hyperlipidemia Monoclonal gammopathy 11/2002 IgG Gravette Multiple myeloma (HCC) 2002 Ulcerative colitis (HCC) [...] RADIOLOGY/OTHER STUDIES: 08/18/2019 - Bone survey at [facility] Conclusion: Scattered lytic lesions, stable in number and size from prior exams. 05/06/2018 - Bone Survey at [facility] Scattered lytic lesions, stable in both [...] At the time of diagnosis the patient hadminimal disease, was asymptomatic, and observation was recommended. Disease progression in 2008. The patient received first line therapy with lenalidomide and Decadron given August 2009through March 2010 which led to a partial response. Maintenance treatment with low-dose lenalidomidegiven August 2010 through October 2010, stopped due to adverse effects. The patient subsequentlywas observed. Disease progression August 2019. Treatment resumed with low dose Revlimid 10 mg daily, 3 weeks onand one-week off plus Decadron 4 mg weekly on 09/15/2019. The patient's paraprotein subsequently improved significantly. By November 2020 the patient developed musculoskeletal cramps which he attributedto the Revlimid, and he elected to stop the Revlimid after 12/05/2020. Labs obtained 03/08/2021 showed his M spike increased, and the patient resumed treatment with Revlimid 5 mg daily 21 days on and 7days off plus Decadron 8 mg weekly as [...] urology. 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 Type 2 diabetes mellitus without complication, with long-term current use of insulin (HCC) H/O ulcerative colitis Personal history of other diseases of digestive system documented in this encounter [facility]* Diagnosis Multiple myeloma not having achieved remission (HCC)- Primary Multiple myeloma, without mention of having achieved remission 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 Type 2 diabetes mellitus without complication, with long-term current use of insulin (HCC) H/O ulcerative colitis Personal history of other diseases of digestive system Elevated prostate specific antigen (PSA) documented in this encounter [facility]* Diagnosis Multiple myeloma not having achieved [...] specific antigen (PSA) [facility] Diagnosis Multiple myeloma not having [...] kidney disease (HCC) documented in this encounter [facility]* Diagnosis Multiple myeloma not having achieved remission (HCC)- Primary Multiple myeloma, without mention of having achieved remission 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 [facility]* Diagnosis Multiple myeloma not having [...] specific antigen (PSA) documented in this encounter [facility]* Diagnosis Multiple myeloma not having achieved remission (HCC)- Primary Multiple myeloma, without mention of having achieved remission documented in this encounter [facility]* Diagnosis Multiple myeloma not having achieved remission (HCC)- Primary Multiple myeloma, without mention of having achieved remission Type 2 diabetes mellitus without complication, with long-term current use of insulin (HCC) documented in this encounter [facility]* Diagnosis Preop examination- Primary Unspecified pre-operative examination Preop examination Unspecified pre-operative examination [facility] Diagnosis Multiple myeloma not having achieved remission (HCC)- Primary Multiple myeloma, without mention of having achieved remission 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 documented in this encounter [facility]* Diagnosis Multiple myeloma not having achieved remission (HCC)- Primary Multiple myeloma, without mention of having achieved remission 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 H/O ulcerative colitis Personal history of other diseases of digestive system Stage 3b chronic kidney disease (HCC) documented in this encounter [facility] RehabilitationInstructionsNot on filedocumented in this encounterOur Lady of Mer[facility] HospitalRessm [facility] care for visit Narrative* [place] Prior Authorization (Routine) - AuthorizedSpecialtyDiagnoses / ProceduresReferred By ContactReferred To Contact Diagnoses Multiple myeloma not having achieved remission (HCC) Paget disease of bone Uriel Gunter MD [address] [place] [address] [place] [address] Phone: tel: fax: Hematology/Oncology [address] [place] [address] [place] [address] Phone: tel: fax: Referral IDStatusReasonStart DateExpiration DateVisits RequestedVisits [id number] [facility] Summary Purpose Family History No Family History Records FoundNo Family History Records FoundNo Family History Records FoundNo Family History Records FoundNo Family History Records FoundNo Family History Records Found Advance Directives No Advanced Directives Records FoundDocuments on File TypeDate RecordedPatient RepresentativeExplanationDurable Power of Buckle Wire Inserter 11/11/2024 8:31 AM Hospital Course Note MR#: [id number] I [facility] Pt. Name: Zach Manuel Admitted: 07/13/2018 [...] complication. [facility] CONSULTATION DURING ADMISSION: Orthopedics. PROCEDURE DURING ADMISSION: Open reduction and internal f (more content not included)... Medications Administered Section Medication OrderMAR ActionAction DateDoseRateSite pamidronate 30 mg in NaCl 0.9% 250 mL (AREDIA) 30 mg, INTRAVENOUS, at 250 mL/hr, Administer over 1 Hours, ONCE, 1 dose, On Sun06/20/22 at 1330, APPROXIMATE TOTAL VOLUME_285mL - 24 HOUR EXP:1340 06/21/22 Hazardous Potential Reproductive Risk Drug: Use appropriate PPE. New Bag/Syringe/Gskycd9806/20/2022 2:14 PM EDT30 mg250 mL/hrMedication OrderMAR ActionAction DateDoseRateSite pamidronate 30 mg in NaCl 0.9% 250 mL (AREDIA) 30 mg, INTRAVENOUS, at 285 mL/hr, Administer over 1 Hours, ONCE, 1 dose, On Sun12/05/22 at 1400, APPROXIMATE TOTAL VOLUME_285mL - 24 HOUR EXP:12/06/2022@1355 Hazardous Potential Reproductive Risk Drug: Use appropriate PPE. New Bag/Syringe/Qbicym8512/05/2022 2:13 PM EDT30 mg285 mL/hrMedication OrderMAR ActionAction DateDoseRateSite pamidronate 30 mg in NaCl 0.9% 250 mL (AREDIA) 30 mg, INTRAVENOUS, at 250 mL/hr, Administer over 1 Hours, ONCE, 1 dose, On Sun08/28/23 at 1400, APPROXIMATE TOTAL VOLUME_285mL - 24 HOUR EXP:08/29/23 1345 Hazardous Potential Reproductive Risk Drug: Use appropriate PPE. New Bag/Syringe/Qygsvg3908/28/2023 2:04 PM EST30 mg250 mL/hr Reason for Referral SpecialtyDiagnoses / ProceduresReferred By ContactReferred To Contact Aiden Hatfield MD [address] [place] [id number] Referral IDStatusReasonStart DateExpiration DateVisits RequestedVisits [id number] Additional Source Comments (unrecognized sect ion and content) No Status Records FoundNo Status Records FoundNo Status Records FoundNo Status Records FoundNo Status Records FoundNo Status Records Found INFORMATION SOURCE (unrecogn ized section and content) DATE CREATED AUTHOR 06/06/2019 [facility] DATE CREATED AUTHOR AUTHOR'S ORGANIZ ATION 11/17/2021 [facility] DATE CREATED AUTHOR AUTHOR'S ORGANIZ ATION 09/02/2022 [facility] DATE CREATED AUTHOR AUTHOR'S ORGANIZ ATION 11/21/2024 [facility] DATE CREATED AUTHOR AUTHOR'S ORGANIZ ATION 02/19/[address] [facility] DATE CREATED AUTHOR AUTHOR'S ORGANIZ ATION 07/28/2025 [facility] Source Comments (unrecognize d section and content) In the event this informatio n is protected by the Federal Confidentiality of Alcohol and Drug Abuse Patient Records regulations: The Federal rules restrict any use of the information to criminally investigate or prosecute any alcohol or drug abuse patient.[facility] RehabilitationIn the event this information is protected by the Federal Confidentiality of Alcohol and Drug Abuse Patient Records regulations: The Federal rules restrict any use of the information to criminally investigate or prosecute any alcohol or drug abuse patient.[facility] RehabilitationIn the event this information is protected by the Federal Confidentiality of Alcohol and Drug Abuse Patient Records regulations: The Federal rules restrict any use of the information to criminally investigate or prosecute any alcohol or drug abuse patient.[facility] RehabilitationIn the event this information is protected by the Federal Confidentiality of Alcohol and Drug Abuse Patient Records regulations: The Federal rules restrict any use of the information to criminally investigate or prosecute any alcohol or drug abuse patient.[facility] RehabilitationIn the event this information is protected by the Federal Confidentiality of Alcohol and Drug Abuse Patient Records regulations: The Federal rules restrict any use of the information to criminally investigate or prosecute any alcohol or drug abuse patient.[facility] RehabilitationIn the event this information is protected by the Federal Confidentiality of Alcohol and Drug Abuse Patient Records regulations: The Federal rules restrict any use of the information to criminally investigate or prosecute any alcohol or drug abuse patient.[facility] RehabilitationIn the event this information is protected by the Federal Confidentiality of Alcohol and Drug Abuse Patient Records regulations: The Federal rules restrict any use of the information to criminally investigate or prosecute any alcohol or drug abuse patient.[facility] RehabilitationIn the event this information is protected by the Federal Confidentiality of Alcohol and Drug Abuse Patient Records regulations: The Federal rules restrict any use of the information to criminally investigate or prosecute any alcohol or drug abuse patient.[facility] RehabilitationIn the event this information is protected by the Federal Confidentiality of Alcohol and Drug Abuse Patient Records regulations: The Federal rules restrict any use of the information to criminally investigate or prosecute any alcohol or drug abuse patient.[facility] RehabilitationIn the event this information is protected by the Federal Confidentiality of Alcohol and Drug Abuse Patient Records regulations: The Federal rules restrict any use of the information to criminally investigate or prosecute any alcohol or drug abuse patient.[facility] RehabilitationIn the event this information is protected by the Federal Confidentiality of Alcohol and Drug Abuse Patient Records regulations: The Federal rules restrict any use of the information to criminally investigate or prosecute any alcohol or drug abuse patient.[facility] RehabilitationIn the event this information is protected by the Federal Confidentiality of Alcohol and Drug Abuse Patient Records regulations: The Federal rules restrict any use of the information to criminally investigate or prosecute any alcohol or drug abuse patient.[facility] RehabilitationIn the event this information is protected by the Federal Confidentiality of Alcohol and Drug Abuse Patient Records regulations: The Federal rules restrict any use of the information to criminally investigate or prosecute any alcohol or drug abuse patient.[facility] RehabilitationIn the event this information is protected by [...] or prosecute any alcohol or drug abuse patient.[facility] RehabilitationIn the event this information is protected by the Federal Confidentiality of Alcohol and Drug Abuse Patient Records regulations: The Federal rules restrict any use of the information to criminally investigate or prosecute any alcohol or drug abuse patient.[facility] RehabilitationIn the event this information is protected by the Federal Confidentiality of Alcohol and Drug Abuse Patient Records regulations: The Federal rules restrict any use of the information to criminally investigate or prosecute any alcohol or drug abuse patient.[facility] RehabilitationIn the event this information is protected by the Federal Confidentiality of Alcohol and Drug Abuse Patient Records regulations: The Federal rules restrict any use of the information to criminally investigate or prosecute any alcohol or drug abuse patient.[facility] RehabilitationIn the event this information is protected by the Federal Confidentiality of Alcohol and Drug Abuse Patient Records regulations: The Federal rules restrict any use of the information to criminally investigate or prosecute any alcohol or drug abuse patient.[facility] RehabilitationIn the event this information is protected by the Federal Confidentiality of Alcohol and Drug Abuse Patient Records regulations: The Federal rules restrict any use of the information to criminally investigate or prosecute any alcohol or drug abuse patient.[facility] RehabilitationIn the event this information is protected by the Federal Confidentiality of Alcohol and Drug Abuse Patient Records regulations: The Federal rules restrict any use of the information to criminally investigate or prosecute any alcohol or drug abuse patient.[facility] RehabilitationIn the event this information is protected by the Federal Confidentiality of Alcohol and Drug Abuse Patient Records regulations: The Federal rules restrict any use of the information to criminally investigate or prosecute any alcohol or drug abuse patient.[facility] RehabilitationIn the event this information is protected by the Federal Confidentiality of Alcohol and Drug Abuse Patient Records regulations: The Federal rules restrict any use of the information to criminally investigate or prosecute any alcohol or drug abuse patient.[facility] RehabilitationIn the event this information is protected by the Federal Confidentiality of Alcohol and Drug Abuse Patient Records regulations: The Federal rules restrict any use of the information to criminally investigate or prosecute any alcohol or drug abuse patient.[facility] RehabilitationIn the event this information is protected by the Federal Confidentiality of Alcohol and Drug Abuse Patient Records regulations: The Federal rules restrict any use of the information to criminally investigate or prosecute any alcohol or drug abuse patient.[facility] RehabilitationIn the event this information is protected by the Federal Confidentiality of Alcohol and Drug Abuse Patient Records regulations: The Federal rules restrict any use of the information to criminally investigate or prosecute any alcohol or drug abuse patient.[facility] RehabilitationIn the event this information is protected by the Federal Confidentiality of Alcohol and Drug Abuse Patient Records regulations: The Federal rules restrict any use of the information to criminally investigate or prosecute any alcohol or drug abuse patient.[facility] RehabilitationIn the event this information is protected by the Federal Confidentiality of Alcohol and Drug Abuse Patient Records regulations: The Federal rules restrict any use of the information to criminally investigate or prosecute any alcohol or drug abuse patient.[facility] RehabilitationIn the event this information is protected by the Federal Confidentiality of Alcohol and Drug Abuse Patient Records regulations: The Federal rules restrict any use of the information to criminally investigate or prosecute any alcohol or drug abuse patient.[facility] RehabilitationIn the event this information is protected by the Federal Confidentiality of Alcohol and Drug Abuse Patient Records regulations: The Federal rules restrict any use of the information to criminally investigate or prosecute any alcohol or drug abuse patient.[facility] RehabilitationIn the event this information is protected by the Federal Confidentiality of Alcohol and Drug Abuse Patient Records regulations: The Federal rules restrict any use of the information to criminally investigate or prosecute any alcohol or drug abuse patient.[facility] RehabilitationIn the event this information is protected by the Federal Confidentiality of Alcohol and Drug Abuse Patient Records regulations: The Federal rules restrict any use of the information to criminally investigate or prosecute any alcohol or drug abuse patient.[facility] RehabilitationIn the event this information is protected by the Federal Confidentiality of Alcohol and Drug Abuse Patient Records regulations: The Federal rules restrict any use of the information to criminally investigate or prosecute any alcohol or drug abuse patient.[facility] RehabilitationIn the event this information is protected by the Federal Confidentiality of Alcohol and Drug Abuse Patient Records regulations: The Federal rules restrict any use of the information to criminally investigate or prosecute any alcohol or drug abuse patient.[facility] RehabilitationIn the event this information is protected by the Federal Confidentiality of Alcohol and Drug Abuse Patient Records regulations: The Federal rules restrict any use of the information to criminally investigate or prosecute any alcohol or drug abuse patient.[facility] RehabilitationIn the event this information is protected by the Federal Confidentiality of Alcohol and Drug Abuse Patient Records regulations: The Federal rules restrict any use of the information to criminally investigate or prosecute any alcohol or drug abuse patient.[facility] RehabilitationIn the event this information is protected by the Federal Confidentiality of Alcohol and Drug Abuse Patient Records regulations: The Federal rules restrict any use of the information to criminally investigate or prosecute any alcohol or drug abuse patient.[facility] RehabilitationIn the event this information is protected by the Federal Confidentiality of Alcohol and Drug Abuse Patient Records regulations: The Federal rules restrict any use of the information to criminally investigate or prosecute any alcohol or drug abuse patient.[facility] RehabilitationIn the event this information is protected by the Federal Confidentiality of Alcohol and Drug Abuse Patient Records regulations: The Federal rules restrict any use of the information to criminally investigate or prosecute any alcohol or drug abuse patient.[facility] RehabilitationIn the event this information is protected by the Federal Confidentiality of Alcohol and Drug Abuse Patient Records regulations: The Federal rules restrict any use of the information to criminally investigate or prosecute any alcohol or drug abuse patient.[facility] RehabilitationIn the event this information is protected by the Federal Confidentiality of Alcohol and Drug Abuse Patient Records regulations: The Federal rules restrict any use of the information to criminally investigate or prosecute any alcohol or drug abuse patient.[facility] RehabilitationIn the event this information is protected by the Federal Confidentiality of Alcohol and Drug Abuse Patient Records regulations: The Federal rules restrict any use of the information to criminally investigate or prosecute any alcohol or drug abuse patient.[facility] RehabilitationIn the event this information is protected by the Federal Confidentiality of Alcohol and Drug Abuse Patient Records regulations: The Federal rules restrict any use of the information to criminally investigate or prosecute any alcohol or drug abuse patient.[facility] RehabilitationIn the event this information is protected by the Federal Confidentiality of Alcohol and Drug Abuse Patient Records regulations: The Federal rules restrict any use of the information to criminally investigate or prosecute any alcohol or drug abuse patient.[facility] RehabilitationIn the event this information is protected by the Federal Confidentiality of Alcohol and Drug Abuse Patient Records regulations: The Federal rules restrict any use of the information to criminally investigate or prosecute any alcohol or drug abuse patient.[facility] RehabilitationIn the event this information is protected by the Federal Confidentiality of Alcohol and Drug Abuse Patient Records regulations: The Federal rules restrict any use of the information to criminally investigate or prosecute any alcohol or drug abuse patient.[facility] RehabilitationIn the event this information is protected by the Federal Confidentiality of Alcohol and Drug Abuse Patient Records regulations: The Federal rules restrict any use of the information to criminally investigate or prosecute any alcohol or drug abuse patient.[facility] RehabilitationIn the event this information is protected by the Federal Confidentiality of Alcohol and Drug Abuse Patient Records regulations: The Federal rules restrict any use of the information to criminally investigate or prosecute any alcohol or drug abuse patient.[facility] RehabilitationIn the event this information is protected by the Federal Confidentiality of Alcohol and Drug Abuse Patient Records regulations: The Federal rules restrict any use of the information to criminally investigate or prosecute any alcohol or drug abuse patient.[facility] RehabilitationIn the event this information is protected by the Federal Confidentiality of Alcohol and Drug Abuse Patient Records regulations: The Federal rules restrict any use of the information to criminally investigate or prosecute any alcohol or drug abuse patient.[facility] RehabilitationIn the event this information is protected by the Federal Confidentiality of Alcohol and Drug Abuse Patient Records regulations: The Federal rules restrict any use of the information to criminally investigate or prosecute any alcohol or drug abuse patient.[facility] RehabilitationIn the event this information is protected by the Federal Confidentiality of Alcohol and Drug Abuse Patient Records regulations: The Federal rules restrict any use of the information to criminally investigate or prosecute any alcohol or drug abuse patient.[facility] RehabilitationIn the event this information is protected by the Federal Confidentiality of Alcohol and Drug Abuse Patient Records regulations: The Federal rules restrict any use of the information to criminally investigate or prosecute any alcohol or drug abuse patient.[facility] RehabilitationIn the event this information is protected by the Federal Confidentiality of Alcohol and Drug Abuse Patient Records regulations: The Federal rules restrict any use of the information to criminally investigate or prosecute any alcohol or drug abuse patient.[facility] RehabilitationIn the event this information is protected by the Federal Confidentiality of Alcohol and Drug Abuse Patient Records regulations: The Federal rules restrict any use of the information to criminally investigate or prosecute any alcohol or drug abuse patient.[facility] RehabilitationIn the event this information is protected by the Federal Confidentiality of Alcohol and Drug Abuse Patient Records regulations: The Federal rules restrict any use of the information to criminally investigate or prosecute any alcohol or drug abuse patient.[facility] RehabilitationIn the event this information is protected by the Federal Confidentiality of Alcohol and Drug Abuse Patient Records regulations: The Federal rules restrict any use of the information to criminally investigate or prosecute any alcohol or drug abuse patient.[facility] RehabilitationIn the event this information is protected by the Federal Confidentiality of Alcohol and Drug Abuse Patient Records regulations: The Federal rules restrict any use of the information to criminally investigate or prosecute any alcohol or drug abuse patient.[facility] RehabilitationIn the event this information is protected by the Federal Confidentiality of Alcohol and Drug Abuse Patient Records regulations: The Federal rules restrict any use of the information to criminally investigate or prosecute any alcohol or drug abuse patient.[facility] RehabilitationIn the event this information is protected by the Federal Confidentiality of Alcohol and Drug Abuse Patient Records regulations: The Federal rules restrict any use of the information to criminally investigate or prosecute any alcohol or drug abuse patient.[facility] RehabilitationIn the event this information is protected by the Federal Confidentiality of Alcohol and Drug Abuse Patient Records regulations: The Federal rules restrict any use of the information to criminally investigate or prosecute any alcohol or drug abuse patient.[facility] RehabilitationIn the event this information is protected by the Federal Confidentiality of Alcohol and Drug Abuse Patient Records regulations: The Federal rules restrict any use of the information to criminally investigate or prosecute any alcohol or drug abuse patient.[facility] RehabilitationIn the event this information is protected by the Federal Confidentiality of Alcohol and Drug Abuse Patient Records regulations: The Federal rules restrict any use of the information to criminally investigate or prosecute any alcohol or drug abuse patient.[facility] Reason for Visit (unrecogniz ed section and content) ReasonOnset DateCommentsRefill Gaijysy09/11/2022ReasonCommentsMultiple Myeloma ReasonOnset DateCommentsRefill Pzfstgf94/09/2022ReasonOnset DateCommentsRefill Bcativv43/03/2022ReasonCommentsMultiple Myelomafollow upReasonCommentsResults ReasonOnset DateCommentsRefill Lhlenyy6403/29/2022lenalidomideReasonCommentsCare Coordinator - OtherPsychiatric [facility] benjamin obtainedReasonOnset DateCommentsRefill Jpyxchq73/28/2022ReasonOnset DateCommentsRefill Themkps57/26/2022ReasonComments Lab OrdersReasonOnset DateCommentsRefill Tqqtedc4306/16/2022pecialtyDiagnoses / ProceduresReferred By ContactReferred To Contact Diagnoses Multiple myeloma, remission status unspecified (HCC) Uriel Gunter MD [address] [place] [address] [place] [address] Shaheen Treat Lois [address] [place] [address] Referral IDStatusReasonStart DateExpiration DateVisits RequestedVisits [id number]/19/[id number] CoordinationCalciumReasonOnset DateCommentsRefill Jmzjbry9008/11/2022eason CommentsMultiple MyelomaFollow upReasonOnset DateCommentsRefill Request 09/21/2022easonOnset DateCommentsRefill Nbdmcfr5310/16/2022ReasonOnset Date CommentsRefill Ulqxmgs5511/16/2022ReasonCommentsMultiple MyelomaTreatment visit ReasonOnset DateCommentsRefill Auravaq6712/19/2022ReasonOnset DateCommentsRefill Oyocnzn6012/28/2022ReasonOnset DateCommentsRefill Tuznkly9002/05/2023ReasonOnset DateCommentsRefill Mywlbbk2504/18/2023ReasonOnset DateCommentsRefill Request 07/18/2023ReasonOnset DateCommentsRefill Zybnxnf5608/20/2023ReasonOnset Date CommentsRefill Xoyxvpy5411/15/2023easonOnset DateCommentsRefill Nseiliq2912/10/2023 ReasonOnset DateCommentsRefill Sffivux0601/08/2024easonOnset DateCommentsRefill Pbhyaee7401/28/2024easonOnset DateCommentsRefill Kkbdkof2102/06/2024evlimid SpecialtyDiagnoses / ProceduresReferred By ContactReferred To Contact Diagnoses Multiple myeloma not having achieved remission (HCC) Paget disease of bone Uriel Gunter MD [address] [place] [address] [place] [address] Shaheen Treat Lois [address] [place] [address] Referral IDStatusReasonStart DateExpiration DateVisits RequestedVisits [id number]/[id number] Coordination LabsReasonOnset DateCommentsRefill Keuyodp9403/06/2024easonOnset DateComments Refill Qnktidy8104/08/2024easonOnset DateCommentsRefill Vyeryfk8005/09/2024eason CommentsCare CoordinationLab ResultsReasonOnset DateCommentsRefill Request 06/04/2024easonOnset DateCommentsRefill Lywigfk1606/30/2024easonOnset Date CommentsRefill Xqoeizp6708/11/2024easonOnset DateCommentsRefill Nvcanxz9009/11/2024 ReasonOnset DateCommentsRefill Cjzavhp7910/10/2024ReasonOnset DateCommentsRefill Akrbicy3811/17/2024ReasonOnset DateCommentsRefill Euxvqhf0512/11/2024ReasonOnset GaizFlqeblobEsyeiru81/29/2025ReasonOnset DateCommentsRefill Xtrrqkr7802/27/2025 Care Teams (unrecognized sec tion and content) Team MemberRelationshipSpecialtyStart DateEnd Date Hanna Mathias MD [address] [phone] PCP - General01/27/03Team MemberRelationshipSpecialtyStart DateEnd Date Hanna Matihas MD [address] [place] [address] PCP - General5Team MemberRelationshipSpecialtyStart DateEnd Date Hanna Mathias MD [address] [place] [address] PCP - General01/27/03Team MemberRelationshipSpecialtyStart DateEnd Date Hanna Mathias, [address] [place] [address] PCP - General01/27/03Team MemberRelationshipSpecialtyStart DateEnd Date Hanna Mathias MD [address] [place] [address] PCP - General01/27/03Team MemberRelationshipSpecialtyStart DateEnd Date Hanna Mtahias MD [address] [place] [address] PCP - General01/27/03Team MemberRelationshipSpecialtyStart DateEnd Date Hanna Mathias MD [address] [place] [address] PCP - General01/27/03Team MemberRelationshipSpecialtyStart DateEnd Date Hanna Mathias MD [address] [place] [address] PCP - General01/27/03Team MemberRelationshipSpecialtyStart DateEnd Date Hanna Mathias MD [address] [place] [address] PCP - General01/27/03Team MemberRelationshipSpecialtyStart DateEnd Date Hanna Mathias MD [address] [place] [facility] [place] [address] PCP - General01/27/03Team MemberRelationshipSpecialtyStart DateEnd Date Hanna Mathias MD [address] [place] [place] [address] PCP - General5Team MemberRelationshipSpecialtyStart DateEnd Date Hanna Mathias MD [address] [facility] [place] [address] PCP - General01/27/03Team MemberRelationshipSpecialtyStart DateEnd Date Hanna Mathias MD [address] [facility] [place] [address] PCP - General01/27/03Team MemberRelationshipSpecialtyStart DateEnd Date Hanna Mathias MD [address] [facility] [address] PCP - General01/27/03Team MemberRelationshipSpecialtyStart DateEnd Date Hanna Mathias MD [address] [place] [facility] [address] PCP - General01/27/03Team MemberRelationshipSpecialtyStart DateEnd Date Hanna Mathias MD [address] [facility] [address] PCP - General01/27/03Team MemberRelationshipSpecialtyStart DateEnd Date Hanna Mathias MD [address] [facility] [address] PCP - General01/27/03Team MemberRelationshipSpecialtyStart DateEnd Date Hanna Mathias MD [address] [facility] [address] PCP - General01/27/03Team MemberRelationshipSpecialtyStart DateEnd Date Hanna Mathias MD [address] [facility] [address] PCP - General01/27/03Team MemberRelationshipSpecialtyStart DateEnd Date Hanna Mathias MD [address] [place] [facility] [address] PCP - General01/27/03Team MemberRelationshipSpecialtyStart DateEnd Date Hanna Mathias MD [address] [place] [facility] [address] PCP - General01/27/03Team MemberRelationshipSpecialtyStart DateEnd Date Hanna Mathias MD [address] [place] [place] [place] [address] PCP - General01/27/03Team MemberRelationshipSpecialtyStart DateEnd Date Hanna Mathias MD [address] [place] [place] [place] [address] PCP - General01/27/03Team MemberRelationshipSpecialtyStart DateEnd Date Hanna Mathias MD [address] [place] [place] [place] [address] PCP - General01/27/03Team MemberRelationshipSpecialtyStart DateEnd Date Hanna Mathias MD [address] [place] [place] [address] PCP - General01/27/03Team MemberRelationshipSpecialtyStart DateEnd Date Hanna Mathias MD [address] [place] [place] [place] [address] PCP - General5Team MemberRelationshipSpecialtyStart DateEnd Date Hanna Mathias MD [address] [place] [place] [place] [address] PCP - General01/27/03Team MemberRelationshipSpecialtyStart DateEnd Date Hanna Mathias MD [address] [place] [place] [place] [address] PCP - General01/27/03Team MemberRelationshipSpecialtyStart DateEnd Date Hanna Mathias MD [address] [place] [place] [place] [address] PCP - General01/27/03Team MemberRelationshipSpecialtyStart DateEnd Date Hanna Mathias MD [address] [place] [place] [place] [address] PCP - General5Team MemberRelationshipSpecialtyStart DateEnd Date Hanna Mathias MD [address] [place] [place] [address] PCP - General5Team MemberRelationshipSpecialtyStart DateEnd Date Hanna Mathias MD [address] [place] [place] [place] [address] PCP - General5Team MemberRelationshipSpecialtyStart DateEnd Date Hanna Mathias MD [address] [place] [place] [place] [address] PCP - General5Team MemberRelationshipSpecialtyStart DateEnd Date Hanna Mathias MD [address] [place] [place] [place] [address] PCP - General01/27/03Te MemberRelationshipSpecialtyStart DateEnd Date Hanna Mathias MD [address] [place] [address] PCP - [facility]10/30/24Te MemberRelationshipSpecialtyStart DateEnd Date Hanna Mathias MD [address] [facility] [address] PCP - General01/27/03Te MemberRelationshipSpecialtyStart [facility] Hanna Mathias MD [address] [facility] [place] [address] PCP - General01/27/03 FOR RECORDS PERTAINING TO PATIENTS WHO ARE [...] BE BASED ON THE PRIMARY CLINICAL RECORDS. [facility]. provides no warranty or guarantee of the accuracy or completeness of information in this document.
[2025-08-05 09:05] LABS: Estimated GFR (African America >60 (>=60 mL/min/1.73m^2); Estimated GFR (Non-African Ame 52 (>=60 mL/min/1.73m^2)
== END 2025-08-05 08:42 | disposition home or self-care (01) ==
LOC: LAB 08:41
PROVIDERS: Pathology Anatomic Pathology & Clinical Pathology; PCP Family Medicine; Visit Provider Family Medicine
DX: K46.9 Unspecified abdominal hernia without obstruction or gangrene (principal); N28.1 Cyst of kidney, acquired; K40.90 Unilateral inguinal hernia, without obstruction or gangrene, not specified as recurrent
CPT/HCPCS: 36415; 74177; 82565; Q9967

== ENCOUNTER 2025-08-24 11:58 | Outpatient (OUT) | payer MEDICARE, OTHER, SELFPAY ==
--- OUTSIDE RECORDS SUMMARY | 2025-08-24 12:03 | XMS_ITS | Clinical Summary ---
Author Organization [facility] Healthcare Address [address] [place] [address] Care Team Providers Care Layout Artist Name Role Phone Unavailable Primary Care Provider Unavailabl e Social History Tobacco UseTypesPacks/DayYears UsedDateSmoking Tobacco: Never AssessedSex and Gender InformationValueDate RecordedSex Assigned at BirthNot on fileLegal Sex Male12/06/2022 8:12 PM EDTGender IdentityNot on fileSexual OrientationNot on file Last Filed Vital Signs Vital SignReadingTime TakenCommentsBlood [id number] 12:00 PM EDT Pulse--Temperature--Respiratory Rate--Oxygen Saturation--Inhaled Oxygen Concentration--Eqndby22.5 kg (195 lb)12/24/2018 12:00 PM BGOZveyzn770.3 cm (5' 9 )12/24/2018 12:00 PM EDTBody Mass Index28.804 12:00 PM EDT Plan of Treatment Not on file Insurance
--- OUTSIDE RECORDS SUMMARY | 2025-08-24 12:03 | XMS_ITS | Clinical Summary ---
Author Organization [facility] Address [address] 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
--- OUTSIDE RECORDS SUMMARY | 2025-08-24 12:16 | XMS_ITS | CCD ---
Author Organization [facility] Care Team Providers Care Standards Engineer Name Role Phone HANNA MATHIAS Primary Care Unavailable SELF, REFERRED Referring Unavailable TRISH CEVALLOS Admitting Unavailable FRANCIS SAVAGE Attending Unavailable [place] Procedure Practitioner Unavailab DANIELA Penning[place] Surgeon Unavailable [place] Procedure Practitioner Unavailab FRANCIS Cruz Surgeon Unavailable Hanna Mathias MD Primary Care Provider [phone] Hanna Mathias MD Primary Care Provider [phone] Hanna Mathias MD Primary Care Provider [phone] HANNA MATHIAS Admitting Unavailable STEW, [...] MATHIAS Primary Care Unavailable STEW, DR FERREIRA Admitting [...] TypeDate of OnsetReaction(s) FacilityAminoglycosides (antibiotic) (1 source)TobramycinDrug Jvftvaa90-27-5253Bqikg: See CommentsCity Hospital Macrolides (antibiotic) (2 sources)AzithromycinDrug Bzlxrid72-08-4770KhdqetxBagaosikl ClinicSulfonamides (antibiotic) (1 source)Sulfonamides (Antibiotic)Drug Ifjjien11-15-8329ZgcditmJvbdmhhdg Clinic (4 sources)Azithromycin; Translations: [AZITHROMYCIN]Drug Wgqoput12-93-8516Dqa [facility] Repository (3 sources)Sulfonamides (Antibiotic); Translations: [SULFA (SULFONAMIDE ANTIBIOTICS)]Drug allergy (disorder)34-31-9220XtjReg[facility] (20 sources)AzithromycinDrug Dkqenlg16-93-3742Rnrseie, Other (See Comments) [facility] (20 sources)Erythromycin; Translations: [ERYTHROMYCIN]Drug Afvreut59-02-0187 UnknownCity Hospital (20 sources)Sulfonamides (Antibiotic)Drug Rijpttk09-17-1440Ilxyypd, Other (See Comments)[facility] (20 sources)Tobramycin; Translations: [TOBRAMYCIN]Drug Awdjjuu51-83-2762Ojhua: See Comments, GI DisturbanceCity Hospital (1 source)ErythromycinDrug AllergyUniversity Hospitals [facility] Repository (3 sources)Neomycin; Translations: [NEOMYCIN]Drug Zfckpon83-60-6482Fwdqy (See Comments)[facility] (2 sources)Pseudoephedrine; Translations: [PSEUDOEPHEDRINE]Drug Allergy 91-80-1773Mxjod (See Comments)[facility] (1 source)Pseudoephedrine; Translations: [Entex][facility] (1 source)Sulfonamides (Antibiotic); Translations: [sulfa drugs]Propensity to adverse reactions (disorder)[facility] Repository Medications Current Medications MedicationDrug Class(es)DatesSig (Normalized)Sig (Original)dexamethasone 4 mg oral tablet (20 sources)CorticosteroidStart: 10-17-2023 End: 92-33-9376yrww 2 tablets by mouth every weekdexAMETHasone (DECADRON) 4 mg tablet TAKE 2 TABLETS BY MOUTH ONCE A WEEK 24 tablet 3 01/28/2024 ActiveStart: 06-02-2021 End: 39-65-4318jcpm 2 tablets by mouth every weekdexAMETHasone (DECADRON) 4 mg tablet TAKE 2 TABLETS BY MOUTH ONCE A WEEK 24 tablet 3 10/16/2022 ActiveComment on above:TAKE 2 TABLETS BY MOUTH ONCE A WEEKempagliflozin 10 mg oral tablet (20 sources)Sodium-Glucose Cotransporter 2 InhibitorStart: 54-12-8548lkla 1 tablet by mouth once dailyJARDIANCE 10 mg tablet Take 10 mg by mouth once daily. 08/21/2022 ActiveComment on above:Take 10 mg by mouth once daily.fenofibrate 145 mg oral tablet (20 sources)Peroxisome Proliferator Receptor alpha AgonistStart: 85-49-1433jpgs 1 tablet by mouth once dailyfenofibrate nanocrystallized (TRICOR) 145 mg tablet Take 145 mg by mouth once daily. 10/29/2017 ActiveComment on above:Take 145 mg by mouth once daily. 30 actuat fluticasone furoate 0.1 mg/actuat / vilanterol 0.025 mg/actuat dry powder inhaler (20 sources)Corticosteroid, beta2-Adrenergic AgonistStart: 40-41-5503NESG ELLIPTA 100-25 mcg/dose inhaler 1 Inhalation once daily. 08/05/2018 Active Comment on above:1 Inhalation once daily. glyBURIDE 6 mg oral tablet (20 sources)SulfonylureaStart: 71-97-4102jagTFZUJD micronized (GLYNASE) 6 mg tablet 02/15/2023 ActiveStart: 42-36-2455yvfXQSIBZ micronized (GLYNASE) 3 mg tabletlenalidomide 5 mg oral capsule (20 sources)Thalidomide AnalogStart: 01-19-2025 End: 55-53-8062rvdukygjtqmq (REVLIMID) 5 mg capsule Take 1 capsule by mouth daily for 21 days on and 7 days off. 21 capsule 02/27/2025 ActiveStart: 10-17-2023 End: 24-12-6254wccxtwwngbjy (REVLIMID) 5 mg capsule Take 1 capsule by mouth daily for 21 days on and 7 days off. 21 capsule 12/11/2024 1:22 PM EDT 12/11/2024 ActiveStart: 06-18-2023 End: 58-61-2055mwiztnvjahtx (REVLIMID) 5 mg capsule Take 1 capsule by mouth daily for 21 days on and 7 days off. 21 capsule 0 08/20/2023 ActiveStart: 73-83-2639mfuhstuavqjb (REVLIMID) 5 mg capsule Take 1 capsule by mouth daily for 21 days on and 7 days off. 21 capsule 0 05/11/2023 ActiveStart: 03-06-2023 End: 76-12-9521rlrcmtlszyxv (REVLIMID) 5 mg capsule Take 1 capsule by mouth daily for 21 days on and 7 days off. 21 capsule 0 04/18/2023 ActiveStart: 07-20-2022 End: 85-03-2992jegobdpojxzx (REVLIMID) 5 mg capsule Take 1 capsule by mouth daily for 21 days on and 7 days off. 21 capsule 0 02/05/2023 ActiveStart: 11-28-2021 End: 30-36-7247egieyawjmtfc (REVLIMID) 5 mg capsule Take 1 capsule by mouth daily for 21 days on and 7 days off. 21 capsule 0 06/17/2022 ActiveComment on above:Take 1 capsule by mouth daily for 21 days on and 7 days off.liothyronine sodium 0.005 mg oral tablet (20 sources)l-TriiodothyronineStart: 16-95-3354mxpg 2 tablets by mouth in the morningliothyronine (CYTOMEL) 5 MCG tablet Take 2 tablets (10 mcg total) by mouth in the morning. 07/27/2024 ActiveStart: 92-60-2364xcqizzuqsjxl (CYTOMEL) 5 mcg tablet 08/12/2021 Activemeloxicam 15 mg oral tablet (20 sources)Nonsteroidal Anti-inflammatory DrugStart: 57-45-8622AXEYDAHQP 15 mg tablet Take 15 mg by mouth as needed. 07/30/2013 ActiveComment on above:Take 15 mg by mouth as needed.metFORMIN hydrochloride 500 mg oral tablet (20 sources)BiguanideStart: 12-18-5961zhoz 2 tablets by mouth once daily at [...] 10 mg oral tablet (20 sources)Opioid AgonistStart: 26-06-3127oykYICGEI IR (ROXICODONE) 10 mg tab 10 mg [...] suspension (20 sources)Aminoglycoside Antibacterial, CorticosteroidStart: 08-01-2019 End: 71-46-7379vgbt 2 drop(s) into the eye(s) four times dailytobramycin- dexamethasone (TOBRADEX) ophthalmic suspension INSTILL 2 DROPS INTO AFFECTED EYE 4 TIMESDAILY 0 08/01/2019 11/27/2023 Discontinued (Discontinued by another Health Care Provider)Comment on above:INSTILL 2 DROPS INTO AFFECTED EYE 4 TIMES DAILYdexlansoprazole 60 mg delayed release oral capsule (20 sources)Proton Pump InhibitorStart: 09-20-2021 End: 45-94-6283bhcf 1 capsule by mouth once dailyDEXILANT 60 mg CpDM Take 1 capsule by mouth once daily. 0 09/20/2021 05/09/2024 DiscontinuedComment on above:Take 1 capsule by mouth once daily.hydrocortisone 10 mg/ml / neomycin 3.5 mg/ml / polymyxin b 39622 unt/ml otic solution (20 sources)Aminoglycoside Antibacterial, Polymyxin-class Antibacterial, CorticosteroidStart: 05-29-2019 End: 26-97-8022pftglxzw-polymyxin-hydrocortisone (CORTISPORIN) otic solution INSTILL 3 4 DROPS IN AFFECTED EAR FOUR TIMES DAILY 1 05/29/2019 11/27/2023 Discontinued (Discontinued by Patient)Comment on above:INSTILL 3 4 DROPS IN AFFECTED EAR FOUR TIMES DAILYlevothyroxine sodium 0.05 mg oral tablet (20 sources)l-ThyroxineStart: 12-31-2014 End: 52-85-9507hbsy 1 tablet by mouth once dailylevothyroxine (SYNTHROID) 50 mcg tablet Take 50 mcg by mouth once daily. 0 12/31/2014 05/09/2024 Discontinued Comment on above:Take 50 mcg by mouth once daily. metroNIDAZOLE 500 mg oral tablet (20 sources)Nitroimidazole AntimicrobialStart: 08-15-2021 End: 34-14-6837qrlfdSINANNFO (FLAGYL) 500 mg tabletmoxifloxacin (1 source)Quinolone AntimicrobialStart: 10-30-2024 End: 59-12-4158xeeorqoompgb HCl (MOXIFLOXACIN 0.5%-PREDNISOLONE 1%-BROMFENAC 0.09% DROPS - BUDERER ) Administer 1 drop to the right eye in the morning and 1 drop before bedtime. Do all this for 30 days. One drop twice a day to operative eye for one week, then daily for three weeks.. 10/30/2024 11/20/2024 Discontin uedpamidronate 30 mg in NaCl 0.9% 250 mL (AREDIA) (2 sources)Start: 02-17-2025 End: 53-87-457797 mg, INTRAVENOUS, at 125 mL/hr, Administer over 2 Hours, ONCE, 1 dose, On Sun02/17/25 at 1200, APPROXIMATE TOTAL VOLUME____mL - 24 HOUR EXP: 02/18/2025 1210 RT Hazardous Potential Reproductive RiskDrug: Use appropriate PPE.Start: 02-26-2024 End: 63-70-6361clmqxeihhgl 30 mg in NaCl 0.9% 250 mL (AREDIA)pioglitazone 30 mg oral tablet (20 sources)Peroxisome Proliferator Receptor alpha Agonist, Peroxisome Proliferator Receptor gamma Agonist, ThiazolidinedioneStart: 08-03-2021 End: 26-03-9779rnpsroiyqhxf (ACTOS) 30 mg tablet End: 22-95-7121kjdw 1 tablet by mouth in the morningpioglitazone (ACTOS) 15 mg tablet Take 1 tablet (15 mg total) by mouth in the morning. 11/20/2024 Di scontinuedvancomycin 250 mg oral capsule (20 sources)Glycopeptide AntibacterialStart: 08-15-2021 End: 49-15-2076guxmixmbvr (VANCOCIN) 250 mg capsule 0 08/15/2021 11/27/2023 Discontinued (Discontinued by another Health Care Provider) Problems Active Problems Problem ClassificationProblemDateDocumented DateEpisodic/ChronicCataract (1 source)CataractOnset: 69-44-7242Ukvicco kidney disease (20 sources)Chronic kidney disease stage 3; Translations: [Stage 3 chronic kidney disease, unspecified whether stage 3a or 3b CKD]Onset: 03-06-2023 74-49-3069XplpmiiMthvhetu mellitus without complication (20 sources)Diabetes mellitus; Translations: [Type 2 diabetes mellitus without complications]Onset: 223061-96-1282AhnymqmTsaimxqfh of lipid metabolism (1 source)Hyperlipidemia, unspecified; Translations: [HYPERLIPIDEMIA UNSPECIFIED]Onset: 64-60-0047VbhinipFrtrerbz myeloma (20 sources)Multiple myeloma; Translations: [Multiple myeloma not having achieved remission]Onset: 792392-78-8377SoqofqhNvyvt bone disease and musculoskeletal deformities (20 sources)Osteitis deformans; 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]Onset: 737430-92-1747MqrkfbuMrajk bone disease and musculoskeletal deformities (1 source)Osteitis deformans of unspecified bone; 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]Onset: 00-36-6195Bumwnth Past or Other Problems Problem ClassificationProblemDateDocumented DateEpisodic/ChronicAbdominal hernia (20 sources)Left inguinal hernia ; Translations: [Unilateral inguinal hernia, without obstruction or gangrene, not specified as recurrent]Onset: 10-20-2015 04-31-1527JeaubfpiSgfg and rectal conditions (20 sources)Perineal irritation; Translations: [Other specified diseases of anus and rectum]Onset: 822068-99-1183YopvrzyuOhobrcnq mellitus without complication (1 source)Other abnormal glucose; Translations: [OTHER ABNORMAL GLUCOSE]Onset: 53-29-3649AgpxrmtfCxfdklqhhbehkvdn hemorrhage (20 sources)Hemorrhage of rectum and anus; Translations: [Hemorrhage of anus and rectum]Onset: 713987-19-6703XmrfsmkjLndolcj and fatigue (5 sources)Other fatigue; Translations: [OTHER FATIGUE]Onset: 56-02-5186Yhhwhivs Other aftercare (20 sources)Long-term current use of systemic steroid; Translations: [space control agent (current) use of systemic steroids]Onset: 253326-73-9618LuzqmvrkBtehy connective tissue disease (1 source)Abnormal posture; Translations: [ABNORMAL POSTURE]Onset: 03-28-2022 EpisodicOther connective tissue disease (1 source)Pain in right hand; Translations: [PAIN IN RIGHT HAND]Onset: 35-34-6724NlgxddsoPyxrb gastrointestinal disorders (20 sources)H/O: ulcerative colitis; Translations: [Personal history of other diseases of the digestive system]Onset: 554869-93-4723SadtuckpFrhtq gastrointestinal disorders (20 sources)Constipation; Translations: [Outlet dysfunction constipation]Onset: 969189-02-2074KdubdtnkItego screening for suspected conditions (not mental disorders or infectious disease) (20 sources)Raised prostate specific antigen; Translations: [Elevated prostate specific antigen [PSA]]Onset: 609530-03-3088ZedtfmmlHkatclsl codes; unclassified (4 sources)Acquired absence of other specified parts of digestive tract; Translations: [ACQ ABSENCE OTH PART DIGESTV TRACT]Onset: 99-40-3264Wozgdfxm Screening and history of mental health and substance abuse codes (20 sources)Ex-smoker; Translations: [Personal history of nicotine dependence] Onset: 248041-05-4032FnavmzdcOslbaeamfeb; intervertebral disc disorders; other back problems (4 sources)Radiculopathy, cervical region; Translations: [RADICULOPATHY CERVICAL REGION]Onset: 09-69-1280IhezqzopKhkhlkgvkwht (1 source)Preprocedural examination twmh33-93-3947 Results Test NameValueInterpretationReference RangeFacilityCBC W Auto Differential panel (Bld)on 21-82-3013Akhlmikdt (Bld) [#/Vol]0.08 10*3/uLNINFCity Hospital Basophils/100 WBC (Bld)1.5 %City HospitalDifferential cell count method Nom (Bld)AutoCleveland ClinicEosinophils (Bld) [#/Vol]0.38 10*3/uLNINFCleMorrow County HospitalEosinophils/100 WBC (Bld)6.9 %City HospitalErythrocyte distribution width (RBC) [Ratio]14.5 %11.5 - 15.0 %City HospitalHematocrit (Bld) [Volume fraction]44.2 %39.0 - 51.0 %City HospitalHemoglobin (Bld) [Mass/Vol]15.4 g/dL 13.0 - 17.0 g/dLCity HospitalImmature granulocytes (Bld) [#/Vol]0.04 10*3/uL NINFCleveland ClinicImmature granulocytes/100 WBC (Bld)0.7 %[facility] Interpretation and review of laboratory resultsAbnormalCMercy Health Anderson Hospital Lymphocytes (Bld) [#/Vol]1.09 10*3/uLCity HospitalLymphocytes/100 WBC (Bld) 19.8 %[facility] (RBC) [Entitic mass]34.8 skFbtn60.0 - 34.0 pgCClermont County HospitalHC (RBC) [Mass/Vol]34.8 g/dL30.5 - 36.0 g/dLSelect Medical Specialty Hospital - Southeast OhioV (RBC) [Entitic vol]100 fL80.0 - 100.0 fLCMercy Health Anderson HospitalMonocytes (Bld) [#/Vol]0.8 10*3/NINFCity HospitalMonocytes/100 WBC (Bld)14.5 %[facility] Neutrophils (Bld) [#/Vol]3.12 10*3/uLCity HospitalNeutrophils/100 WBC (Bld) 56.6 %City HospitalNucleated RBC (Bld) [#/Vol]NINFCMercy Health Anderson HospitalNucleated RBC/100 WBC (Bld) [Ratio]0 %/100 WBCCity HospitalPlatelet mean volume (Bld) [Entitic vol]10.6 fL9.0 - 12.7 fLCMercy Health Anderson HospitalPlatelets (Bld) [#/Vol]217 10*3/uLCity HospitalRBC (Bld) [#/Vol]4.42 10*6/uL4.20 - 6.00 m/[facility] EastWBC (Bld) [#/Vol]5.51 10*3/[facility] ClinicBasophils (Bld) [#/Vol]0.08 10*3/Normal<0.11CMarion Hospital on above: Order Comment: Specimen Type: BLOOD SPECIMENOrdering Facility: [facility] Address:[address] [place] [address]Dqwmbeivk By: #### 42035- 8 ####[facility] LABCLIA [id number] [place], [place] [address]Tmnfdgqqg/100 WBC (Bld)1.5 %NormalKeenan Private Hospital on above:Order Comment: Specimen Type: BLOOD SPECIMENOrdering Facility: [facility] Address:[address] [place], [place] [address]Performed By: #### 21992-9 ####[facility] LABIA [id number] [place], [place] [address]Bhlkfjlkbmpt cell count method Nom (Bld)AutoNormalClevelMercy Health St. [facility] on above:Order Comment: Specimen Type: BLOOD SPECIMENOrdering Facility: [facility] Address:[address] [place], [place] [address]Performed By: #### 30377-7 ####[facility] LABIA [id number] [place], [place] [address]Onfgyswnynh (Bld) [#/Vol]0.38 10*3/uLNormal<0.46[facility] on above:Order Comment: Specimen Type: BLOOD SPECIMENOrdering Facility: [facility] Address:[address] [place], [place] [address]Performed By: #### 64532-3 ####[facility]ITALIA [id number] [place], [place] [address]Dxaonzxcigx/100 WBC (Bld)6.9 %NormalKeenan Private Hospital on above:Order Comment: Specimen Type: BLOOD SPECIMENOrdering Facility: [facility] Address:[address] [place], [place] [address]Performed By: #### 50123-1 ####[facility] LABIA [id number] [place], [place] [address]Lfntrkxbjcg distribution width (RBC) [Ratio]14.5 %Normal 11.5-15.0[facility] on above:Order Comment: Specimen Type: BLOOD SPECIMENOrdering Facility: [facility] Address:[address] [place], [place] [address]Performed By: #### 78447-1 ####[facility] LABIA [id number] [place] [address] Hematocrit (Bld) [Volume fraction]44.2 %Nbdudz51.0-51.0[facility] on above:Order Comment: Specimen Type: BLOOD SPECIMENOrdering Facility: [facility] Address:[address] [place], [place] [address]Performed By: #### 46811-1 ####[facility] LABIA [id number] [place], [place] [address]Uccpragtju (Bld) [Mass/Vol]15.4 g/tRSbbwxv36.0-17.0[facility] on above:Order Comment: Specimen Type: BLOOD SPECIMENOrdering Facility: [facility] Address:[address] [place], [place] [address]Performed By: #### 34266-4 ####[facility] LABIA [id number] [place], [place] [address]Vpvestnk granulocytes (Bld) [#/Vol]0.04 10*3/uLNormal <0.10[facility] on above:Order Comment: Specimen Type: BLOOD SPECIMENOrdering Facility: [facility] Address:[address] [place], [place] [address]Performed By: #### 41089-4 ####[facility] LABIA [id number] [place], [place] [address]Rzdhpftz granulocytes/100 WBC (Bld)0.7 %NormalKeenan Private Hospital on above: Order Comment: Specimen Type: BLOOD SPECIMENOrdering Facility: [facility] Address:[address] [place], [place] [address]Performed By: #### 01403- 8 ####[facility] LABIA [id number] [place], [place] [address]Evvnfzgnmyk (Bld) [#/Vol]1.09 10*3/uLNormal1.00-4.00 [facility] on above:Order Comment: Specimen Type: BLOOD SPECIMENOrdering Facility: [facility] Address:[address] [place], [place] [address]Performed By: #### 21175-8 ####[facility] LABIA [id number] [place], [place] [address]Qtrnpedvvst/100 WBC (Bld)19.8 %NormalKeenan Private Hospital on above:Order Comment: Specimen Type: BLOOD SPECIMENOrdering Facility: [facility] Address:[address] [place], [place] [address]Performed By: #### 63756-5 ####[facility] LABCLIA [id number] [place], [place] [address]JBL (RBC) [Entitic mass]34.8 ywHnqb68.0-34.0[facility] on above:Order Comment: Specimen Type: BLOOD SPECIMENOrdering Facility: [facility] Address:[address] [place], [place] [address]Performed By: #### 27967-0 ####[facility] LABIA [id number] [place], [place] [address]TKOQ (RBC) [Mass/Vol]34.8 g/tSLmlayg55.5-36.0[facility] on above: Order Comment: Specimen Type: BLOOD SPECIMENOrdering Facility: [facility] Address:[address] [place], [place] [address]Performed By: #### 21800- 8 ####[facility] LABCLIA [id number] [place], [place] [address]AHU (RBC) [Entitic vol]100.0 wYIfktts52.0-100.0[facility] on above:Order Comment: Specimen Type: BLOOD SPECIMENOrdering Facility: [facility] Address:[address] [place], [place] [address]Performed By: #### 95608-9 ####[facility] LABIA [id number] [place], [place] [address]Fpqgqhfab (Bld) [#/Vol]0.80 10*3/uLNormal<0.87[facility] on above:Order Comment: Specimen Type: BLOOD SPECIMENOrdering Facility: [facility] Address:[address] [place], [place] [address]Performed By: #### 66666- 8 ####[facility] LABCLIA [id number] [place], [place] [address]Houjsgxrk/100 WBC (Bld)14.5 %NormalKeenan Private Hospital on above:Order Comment: Specimen Type: BLOOD SPECIMENOrdering Facility: [facility] Address:[address] [place], [place] [address]Performed By: #### 29729-8 ####[facility] LABCLIA [id number] [place], [place] [address]Cniyiaearpt (Bld) [#/Vol]3.12 10*3/uLNormal1.45-7.50[facility] on above:Order Comment: Specimen Type: BLOOD SPECIMENOrdering Facility: [facility] Address:[address] [place], [place] [address]Performed By: #### 54644-4 ####[facility] LABCLIA [id number] [place], [place] [address]Ublnsfqbwwa/100 WBC (Bld)56.6 %NormalKeenan Private Hospital on above:Order Comment: Specimen Type: BLOOD SPECIMENOrdering Facility: [facility] Address:[address] [place], [place] [address]Performed By: #### 06363-6 ####[facility] LABIA [id number] [place], [place] [address]Nbemlcjgt RBC (Bld) [#/Vol] 10*3/uLNormal<0.01[facility] on above:Order Comment: Specimen Type: BLOOD SPECIMENOrdering Facility: [facility] Address:[address] [place], [place] [address]Performed By: #### 76483-3 ####[facility] LABCLIA [id number] [place], [place] [address]Mrjpbmzzc RBC/100 WBC (Bld) [Ratio]0.0 /100 WBCNormal [facility] on above:Order Comment: Specimen Type: BLOOD SPECIMENOrdering Facility: [facility] Address:[address] [place], [place] [address]Performed By: #### 77631-4 ####[facility] LABCLIA [id number] [place], [place] [address]Slarxmmj mean volume (Bld) [Entitic vol]10.6 fLNormal9.0-12.7CMarion Hospital on above:Order Comment: Specimen Type: BLOOD SPECIMENOrdering Facility: [facility] Address:[address] [place] [address] Performed By: #### 74788-2 ####[facility] LABCLIA [id number] [place], [place] [address]Jzjqzuodk (Bld) [#/Vol]217 10*3/cBSxpsld394-732ImbjrmmwiKeenan Private Hospital on above:Order Comment: Specimen Type: BLOOD SPECIMENOrdering Facility: [facility] Address:[address] [place], [place] [address]Performed By: #### 05304-1 ####[facility] LABCLIA [id number] [place], [place] [address]PVY (Bld) [#/Vol]4.42 10*6/uLNormal4.20-6.00[facility] on above:Order Comment: Specimen Type: BLOOD SPECIMENOrdering Facility: [facility] Address:[address] [place], [place] [address]Performed By: #### 19665-7 ####[facility] LABIA [id number] [place], [place] [address]ZGS (Bld) [#/Vol]5.51 10*3/uLNormal3.70-1100[facility] on above: Order Comment: Specimen Type: BLOOD SPECIMENOrdering Facility: [facility] Address:[address] [place], [place] [address]Lvkgqperp By: #### 13748- 8 ####[facility] LABCLIA [id number] [place], [place] [address]APZISEcc 57-27-9498QTFAIJCcgje (SP) Office (HEMASA) ZACH MANUEL ([id number]) 1945 M Date Time Provider Department 02/17/25 11:20 AM URIEL GUNTER During your visit today, we recorded the following information about you: Temperature Pulse Respiration Blood pressure 97.2 degrees 70/minute 16/minute 129/73 Weight Height 83 kg 1.753 m Uriel Gnuter MD 02/17/2025 8:34 PM Signed PATIENT NAME: Zach Manuel DATE: 02/17/2025 PRIMARY CARE PHYSICIAN: Dr. Hanna Mathias OTHER PHYSICIANS: Dr. Lewis, Dr. Maritnez Portions of this encounter note have been [...] mellitus (HCC) Hyperlipidemia Monoclonal gammopathy 11/2002 IgG [place] Multiple myeloma (HCC) 2002 Ulcerative colitis (HCC) [...] and chronic inflammation RADIOLOGY/ (more content not included)...NormalK[facility]tering [facility] Hospital Comprehensive metabolic 2000 panelon 30-80-6422Thodgur [Mass/Vol]4.2 g/dL3.9 - 4.9 g/dLGales Ferry ClinicALP [Catalytic activity/Vol]95 U/L38 - 113 U/LCleveland [...] 11:40 AM EDT.Bilirubin [Mass/Vol]1.7 mg/dLHigh0.2 - 1.3 mg/dLGales Ferry ClinicCalcium [Mass/Vol]8.5 mg/dL8.5 - 10.2 mg/dLCity HospitalComment on above:Corrected result: Previously reported as 8.3 mg/dL on 02/17/2025 at 11:40 AM EDT.Chloride [Moles/Vol]101 mmol/L98 - 107 mmol/LCleveland ClinicCO2 [Moles/Vol]26 mmol/L22 - 30 mmol/LCleveland ClinicCreatinine [Mass/Vol]1.6 mg/dLHigh0.73 - 1.22 mg/dL [facility] HospitalGFR/1.73 sq M.predicted among non-blacks MDRD (S/P/Bld) [Vol [...] eGFRmay not accurately reflect actual GFR.Glucose [Mass/Vol]185 mg/vJGfax32 - 99 mg/dLCity HospitalComment on above:The [place] [employer] (ADA) provides guidance for cutoff [...] Standards of Medical Care in Diabetes 2016, [place] [employer]. Diabetes Care. 2016.39(Suppl 1). Corrected result: Previously reported as 189 mg/dL on 02/17/2025 at 11:40 AM EDT. Interpretation and review of laboratory resultsAbnormalCleveland ClinicPotassium [Moles/Vol]4.6 mmol/L3.7 - 5.1 mmol/LCleveland ClinicProtein [Mass/Vol]7 g/dL 6.3 - 8.0 g/dLCity HospitalComment on above:Corrected result: Previously reported as 6.6 g/dL on 02/17/2025 at 11:40 AM EDT.Sodium [Moles/Vol]138 mmol/L 136 - 144 mmol/LCleveland ClinicUrea nitrogen [Mass/Vol]23 mg/dL9 - 24 mg/dL City HospitalComment on above:Corrected result: Previously reported as 25 mg/dL on 02/17/2025 at 11:40 AM EDT.[place] ClinicAlbumin [Mass/Vol]4.2 g/dL Normal3.9-4.9ClevelECU Health Chowan HospitalComment on above:Order Comment: Specimen Type: BLOOD SPECIMENOrdering Facility: [facility] Address:[address] [place], [place] [address]Performed By: #### 19524-5 ####[facility] LABIA [id number] [place] [address] [place] AMERICAALP [Catalytic activity/Vol]95 U/UXdtwqn68-937AaifptttoKeenan Private Hospital on above:Order Comment: Specimen Type: BLOOD SPECIMENOrdering Facility: [facility] Address:[address] [place], [place] [address]Result Comment: Corrected result: Previously reported as 99 U/L on 02/17/2025 at 11:40 AM EDT.Performed By: #### 34151-2 ####[facility] LABIA [id number] [place] [address] [place] AMERICAALT [Catalytic activity/Vol]15 U/AOrksog44-69RzckhxadbKeenan Private Hospital on above:Order Comment: Specimen Type: BLOOD SPECIMENOrdering Facility: [facility] Address:[address] [place], [place] [address]Result Comment: Corrected result: Previously reported as 12 U/L on 02/17/2025 at 11:40 AM EDT.Performed By: #### 37139-3 ####[facility] LABCLIA [id number] [place] [address] [place] AMERICAAnion gap [Moles/Vol]11 mmol/LNormal8-15[facility] on above:Order Comment: Specimen Type: BLOOD SPECIMENOrdering Facility: [facility] Address:[address] [place], [place] [address]Performed By: #### 01927-4 ####[facility] LABIA [id number] [place] [address] [place] AST [Catalytic activity/Vol]22 U/TUihbyo17-73XdpeybvtaKeenan Private Hospital on above:Order Comment: Specimen Type: BLOOD SPECIMENOrdering Facility: [facility] Address:[address] [place], [place] [address]Result Comment: Corrected result: Previously reported as 15 U/L on 02/17/2025 at 11:40 AM EDT.Performed By: #### 97490-9 ####[facility] LABIA [id number] [place] [address] [place] Bilirubin [Mass/Vol]1.7 mg/dLHigh0.2-1.3CMarion Hospital on above:Order Comment: Specimen Type: BLOOD SPECIMENOrdering Facility: [facility] Address:[address] [place], [place] [address]Performed By: #### 64387-4 ####[facility] LABIA [id number] [place] [address] [place] AMERICACalcium [Mass/Vol]8.5 mg/dLNormal8.5-10.2Clevel[address] [facility] on above:Order Comment: Specimen Type: BLOOD SPECIMENOrdering Facility: [facility] Address:[address] [place], [place] [address]Result Comment: Corrected result: Previously reported as 8.3 mg/dL on 02/17/2025 at 11:40 AM EDT.Performed By: #### 75513-6 ####[facility] LABCLIA [id number] [place] [id number] [place] AMERICAChloride [Moles/Vol] 101 mmol/DBdneqg07-350BhcycucosKeenan Private Hospital on above:Order Comment: Specimen Type: BLOOD SPECIMENOrdering Facility: [facility] Address:[address] [place], [place] [address]Performed By: #### 37652-0 ####[facility] LABCLIA [id number] [place] [address] [place] AMERICACO2 [Moles/Vol]26 mmol/LNormal 22-30[facility] on above:Order Comment: Specimen Type: BLOOD SPECIMENOrdering Facility: [facility] Address:[address] [place], [place] [address]Performed By: #### 89730-5 ####[facility] LABCLIA [id number] [place] [address] [place] AMERICACreatinine [Mass/Vol]1.60 mg/dLHigh0.73-1.22[facility] on above:Order Comment: Specimen Type: BLOOD SPECIMENOrdering Facility: [facility] Address:[address] [place], [place] [address]Performed By: #### 14486-7 ####[facility] LABIA [id number] [place] [address] [place] Creatinine and Glomerular filtration rate.predicted panel (S/P/Bld)44 mL/min/1.73m???Low>=60[facility] on above:Order Comment: Specimen Type: BLOOD SPECIMENOrdering Facility: [facility] Address:[address] [place], [place] [address]Result Comment: Estimated Glomerular Filtration Rate (eGFR) is calculated using the 2020 CKD-EPI creatinine equation. This equation utilizes serum creatinine, sex, and age as parameters. The creatinine assay has traceable calibration to isotope dilution-mass spectrometry. Refer to KDIGO guidelines for clinical interpretation. In patients with unstable renal function, e.g. those with acute kidney injury, the eGFR may not accurately reflect actual GFR.Performed By: #### 00432-5 ####[facility] LABCLIA [id number] [address] [address] [place] OF AMERICAGlucose [Mass/Vol]185 mg/kJQafe46-60GmptqrvwzKeenan Private Hospital on above:Order Comment: Specimen Type: BLOOD SPECIMENOrdering Facility: [facility] Address:[address] [place], [place] [address]Result Comment: The [place] Diabetes Association (ADA) provides guidance for cutoff [...] Standards of Medical Care in Diabetes 2016, [place] [employer] Association. Diabetes Care. 2016.39(Suppl 1). Corrected result: Previously reported as 189 mg/dL on 02/17/2025 at 11:40 AM EDT. Performed By: #### 02460-5 ####[facility] LABCLIA [id number] [address] [address] [place] Potassium [Moles/Vol]4.6 mmol/LNormal3.7-5.1CMarion Hospital on above:Order Comment: Specimen Type: BLOOD SPECIMENOrdering Facility: [facility] Address:[address] [place] [id number] By: #### 29056-5 ####[facility] LABIA [id number] [address] [address] [place] AMERICAProtein [Mass/Vol]7.0 g/dLNormal6.3-8.0[facility] on above:Order Comment: Specimen Type: BLOOD SPECIMENOrdering Facility: [facility] Address:[address] [place], [place] [address]Result Comment: Corrected result: Previously reported as 6.6 g/dL on 02/17/2025 at 11:40 AM EDT.Performed By: #### 01030-6 ####[facility] LABCLIA [id number] [address] STATES OF GRE[facility]OSS HOSPITALSodium [Moles/Vol]138 mmol/RHdyhoy090-137LstnqhghyKeenan Private Hospital on above:Order Comment: Specimen Type: BLOOD SPECIMENOrdering Facility: [facility] Address:[address] [place], [place] [address]Performed By: #### 49278-3 ####[facility] [id number] [address] STATES OF AMERICAUrea nitrogen [Mass/Vol]23 mg/dL Normal9-24[facility] on above:Order Comment: Specimen Type: BLOOD SPECIMENOrdering Facility: [facility] Address:[address] [place], [place] [address]Result Comment: Corrected result: Previously reported as 25 mg/dL on 02/17/2025 at 11:40 AM EDT.Performed By: #### 68553-5 ####[facility] LABIA [id number] [place] [address] [place] AMERICAIMMUNOFIXATION SCREEN, SERUMon 66-48-5166CGLUCWDYWBLGXZ (MPA)Atypical restricted bands are present in the IgG and kappa regions. Consistent with IgG kappa monoclonal gammopathy.Normal [facility] on above:Order Comment: Specimen Type: BLOOD SPECIMENOrdering Facility: [facility] Address:[address] [place], [place] [address]Performed By: #### IFESC ####[facility] LABCLIA [id number] [place] [address] [place] [facility]OSS HOSPITALMPA RESULTM protein is present.AbnormalNo M protein is identified. [facility] on above:Order Comment: Specimen Type: BLOOD SPECIMENOrdering Facility: [facility] Address:[address] [place], [place] [address]Performed By: #### IFESC ####[facility] LABIA [id number] [address] ROCHA STREETSTAFF REVIEW ([facility])Reviewed by Donaldo Rivas MD, Ph.D ([id number])Normal [facility] on above:Order Comment: Specimen Type: BLOOD SPECIMENOrdering Facility: [facility] Address:[address] [place], [place] [address]Performed By: #### IFESC ####[facility]ENTERIA [id number] [place] [address] [place] AMERICAIMMUNOGLOBULINS,IGG,IGA,IGMon 63-21-5797OyD [Mass/Vol]118 mg/dLNormal 70-400[facility] on above:Order Comment: Specimen Type: BLOOD SPECIMENOrdering Facility: [facility] Address:[address] [place], [place] [address]Performed By: #### SERIMM ####[facility] LABCLIA [id number] [place] [address] [place] AMERICAIgG [Mass/Vol]1245 mg/mJSyepdf971-9270WplxtpumsKeenan Private Hospital on above:Order Comment: Specimen Type: BLOOD SPECIMENOrdering Facility: [facility] Address:[address] [place], [place] [address]Performed By: #### SERIMM ####[facility] LABCLIA [id number] [place] [address] [place] IgM [Mass/Vol]21 mg/gAVbh18-064HocawqnfuKeenan Private Hospital on above:Order Comment: Specimen Type: BLOOD SPECIMENOrdering Facility: [facility] Address:[address] [place], [place] [address]Performed By: #### SERIMM ####[facility] [id number] [place] [address] [place] AMERICAKAPPA/DANIELS,FREE,SERon 02-17-2025 Immunoglobulin light chains.kappa.free (S) [Mass/Vol]37.4 mg/LHigh3.3-19.4 [facility] on above:Order Comment: Specimen Type: BLOOD SPECIMENOrdering Facility: [facility] Address:[address] [place], [place] [address]Result Comment: Rarely, increased serum free light chains levels may not be detected or accurately quantified due to prozone phenomenon or in high viscosity samples using this immunoturbidimetric assay. Correlation with other laboratory results and clinical findings is recommended. The [place] Free Light Chain was performed using the Binding Site Optilite immunoturbidimetric method. Result obtained with different assay methods or kits cannot be used interchangeably.Performed By: #### KLFRS ####[facility] [id number] [place] [address] [place] AMERICAImmunoglobulin light chains.kappa/Immunoglobulin light chains.lambda (S) [Mass ratio]1.97Khtjjh1.26-1.65[facility] Comment on above:Order Comment: Specimen Type: BLOOD SPECIMENOrdering Facility: [facility] Address:[address] [place] [address] Performed By: #### KLFRS ####[facility]IA [id number] [place] [address] [place] AMERICAImmunoglobulin light chains.lambda.free [Mass/Vol]22.7 mg/LNormal5.7-26.3CMarion Hospital on above:Order Comment: Specimen Type: BLOOD SPECIMENOrdering Facility: [facility] Address:[address] [place], [place] [address]Result Comment: Rarely, increased serum free light chains [...] cannot be used interchangeably.Performed By: #### KLFRS ####[facility] [id number] [address] STREETPROTEIN ELECTROPHORESIS SERUM WITH TOÑITO (P)on 02-17-2025 Albumin [Mass/Vol]4.01 g/dLNormal3.43-5.41[facility] on above:Order Comment: Specimen Type: BLOOD SPECIMENOrdering Facility: [facility] Address:[address] [place], [place] [address]Performed By: #### [id number] ####[facility] [id number] [address]Alpha 1 globulin Elph [Mass/Vol]0.23 g/dLNormal0.18-0.43[facility] on above: Order Comment: Specimen Type: BLOOD SPECIMENOrdering Facility: [facility] Address:[address] [place], [place] [address]Performed By: #### [id number] ####[facility] [id number] [address] OF AMERICAAlpha 2 globulin Elph [Mass/Vol]0.66 g/dLNormal0.42-0.98[facility] on above: Order Comment: Specimen Type: BLOOD SPECIMENOrdering Facility: [facility] Address:[address] [place], [place] [address]Performed By: #### [id number] ####[facility] LABIA [id number] [address] OF AMERICABeta globulin Elph [Mass/Vol]0.73 g/dLNormal0.61-1.17[facility] on above: Order Comment: Specimen Type: BLOOD SPECIMENOrdering Facility: [facility] Address:[address] [place], [place] [address]Performed By: #### [id number] ####[facility] LABCLIA [id number] [place] [address] [place] AMERICACOMMENT (SERUM PROT ELECTRO)Monoclonal Protein analysis (immunofixation) is not indicated.Normal [facility] on above:Order Comment: Specimen Type: BLOOD SPECIMENOrdering Facility: [facility] Address:[address] [place], [place] [address]Performed By: #### [id number] ####[facility] LABIA [id number] [place] [address] [place] AMERICAGamma globulin Elph [Mass/Vol]1.08 g/dLNormal0.53-1.51[facility] on above:Order Comment: Specimen Type: BLOOD SPECIMENOrdering Facility: [facility] Address:[address] [place], [place] [address]Performed By: #### [id number] ####[facility] LABIA [id number] [place] [address] [place] INTERPRETATION COMMENT FOR PROTEIN ELECTROPHORESISSee separate immunofixation report for characterization of monoclonal gammopathy.NormalKeenan Private Hospital on above:Order Comment: Specimen Type: BLOOD SPECIMENOrdering Facility: [facility] Address:[address] [place], [place] [address]Performed By: #### [id number] ####[facility] LABIA [id number] [place] [address] [place] M-PROTEIN LOCATIONGamma Fraction 1NormalKeenan Private Hospital on above:Order Comment: Specimen Type: BLOOD SPECIMENOrdering Facility: [facility] Address:[address] [place], [place] [address]Performed By: #### [id number] ####[facility] LABIA [id number] [place] [address] [place] AMERICAProtein Fractions [Interp]An M protein is identified on protein electrophoresis.AbnormalNo definitive M protein is identified on protein electrophoresis.[facility] on above:Order Comment: Specimen Type: BLOOD SPECIMENOrdering Facility: [facility] Address:[address] [place], [place] [address]Performed By: #### [id number] ####[facility] [id number] [place] [address] [place] Protein.monoclonal Elph [Mass/Vol]0.65 g/dLHigh<=0.00[facility] Comment on above:Order Comment: Specimen Type: BLOOD SPECIMENOrdering Facility: [facility] Address:[address] [place] [address] Performed By: #### [id number] ####[facility] [id number] [place] [address] [place] SPE STAFF REVIEWReviewed by Donaldo Rivas MD, Ph.D ([id number])NormalKeenan Private Hospital on above:Order Comment: Specimen Type: BLOOD SPECIMENOrdering Facility: [facility] Address:[address] [place], [place] [address]Performed By: #### [id number] ####[facility] [id number] [place] [address] [place] AMERICAProt SerPl-mCncon 35-21-8068Uuluxqu [Mass/Vol]6.7 g/dLNormal6.3-8.0 [facility] on above:Order Comment: Specimen Type: BLOOD SPECIMENOrdering Facility: [facility] Address:[address] [place], [place] [address]Performed By: #### 2885-2 ####[facility] LABIA [id number] [place] [address] [place] AMERICACNPNon 60-34-0193HTCGRbxpjggjg (HEMTSA) ZACH MANUEL ([id number]) 1945 M Date Time Provider Department 02/13/25 KEYONNA FUENTES HEMTSA During your visit today, we recorded the following information about you: Keyonna Fuentes RN 02/13/2025 11:04 AM Signed Pt in for OV and Aredia on Saturday 02/17, please place and sign more orders. Thanks! 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 [Z79*10/20/2015 Left inguinal hernia [K40.90] 10/20/2015 Former smoker [Z87.891] 10/20/2015 Elevated prostate specific antigen (PSA) [R97.2*03/19/2020 Stage 3 chronic kidney disease, unspecified whe*03/06/2023 Encounter Status:Closed by AINSLEY WOODSON on 02/13/25[facility] 12 leadon 86-33-9342WYEUSOSELPZRFSOkaPjflfsGreater Regional HealthCNPNon 17-24-1720VHZTJjoiwklek (HEMTSA) ZACH MANUEL ([id number]) 1945 M Date Time Provider Department 05/29/24 JUNA FERGUSON HEMTSA During your visit today, we [...] Fully Assessed Reason for Visit: Care Coordination [349] Cmt: Lab Results Prescriptions as of 05/29/2024 [...] Type 2 diabetes mellitus without complication (*10/20/2015 space control agent current use of systemic steroids [Z79*10/20/2015 Left inguinal hernia [K40.90] 10/20/2015 Former smoker [Z87.891] 10/20/2015 Elevated prostate specific antigen (PSA) [R97.2*03/19/2020 Stage 3 chronic kidney disease, unspecified whe*03/06/2023 Encounter Status:Closed by JUAN FERGUSON on 05/29/24NormalCThe [facility] W Auto Differential panel (Bld)on 09-69-7572Didhxydis (Bld) [#/Vol] 0.09 10*3/uLNormal<0.11CMarion Hospital on above:Order Comment: Specimen Type: BLOOD SPECIMENOrdering Facility: [facility] Address:[address] [place], [place] [address]Performed By: #### 80704-7 ####[facility] LABIA [id number] [place], [place] [address]Sqpmktjyp/100 WBC (Bld)1.3 %NormalKeenan Private Hospital on above:Order Comment: Specimen Type: BLOOD SPECIMENOrdering Facility: [facility] Address:[address] [place], [place] [address]Performed By: #### 73860-0 ####[facility] LABIA [id number] [place], [place] [address]Tenodkaofaal cell count method Nom (Bld)AutoNormSt. John of God Hospital on above:Order Comment: Specimen Type: BLOOD SPECIMENOrdering Facility: [facility] Address:[address] [place], [place] [address]Performed By: #### 31090-3 ####[facility] LABIA [id number] [place], [place] [address]Egdpnosqbqu (Bld) [#/Vol]0.32 10*3/uLNormal<0.46[facility] on above:Order Comment: Specimen Type: BLOOD SPECIMENOrdering Facility: [facility] Address:[address] [place], [place] [address]Performed By: #### 97923-0 ####[facility] LABIA [id number] [place], [place] [address]Mbkntnyqdix/100 WBC (Bld)4.7 %NormalKettering Memorial HospitalComment on above:Order Comment: Specimen Type: BLOOD SPECIMENOrdering Facility: [facility] Address:[address] [place], [place] [address]Performed By: #### 75388-8 ####[facility] LABIA [id number] [place], [place] [address]Ldbucpucjlq distribution width (RBC) [Ratio]13.8 %Normal 11.5-15.0[facility] on above:Order Comment: Specimen Type: BLOOD SPECIMENOrdering Facility: [facility] Address:[address] [place], [place] [address]Performed By: #### 39971-5 ####[facility] LABIA [id number] [place] [address] Hematocrit (Bld) [Volume fraction]37.7 %Low39.0-51.0[facility] Comment on above:Order Comment: Specimen Type: BLOOD SPECIMENOrdering Facility: [facility] Address:[address] [place] [address] Performed By: #### 38473-0 ####[facility] LABIA [id number] [place], [place] [address]Qojmfvvlho (Bld) [Mass/Vol]13.3 g/iVKpfqne09.0-17.0[facility] on above:Order Comment: Specimen Type: BLOOD SPECIMENOrdering Facility: [facility] Address:[address] [place], [place] [address]Performed By: #### 97080-2 ####[facility] LABIA [id number] [place], [place] [address]Dzmobcir granulocytes (Bld) [#/Vol]0.03 10*3/uLNormal <0.10[facility] on above:Order Comment: Specimen Type: BLOOD SPECIMENOrdering Facility: [facility] Address:[address] [place], [place] [address]Performed By: #### 60296-8 ####[facility] LABCLIA [id number] [place], [place] [address]Mckrmgfv granulocytes/100 WBC (Bld)0.4 %NormalKeenan Private Hospital on above: Order Comment: Specimen Type: BLOOD SPECIMENOrdering Facility: [facility] Address:[address] [place], [place] [address]Performed By: #### 15883- 8 ####[facility] LABCLIA [id number] [place], [place] [address]Ilmrmajgrkz (Bld) [#/Vol]1.04 10*3/uLNormal1.00-4.00 [facility] on above:Order Comment: Specimen Type: BLOOD SPECIMENOrdering Facility: [facility] Address:[address] [place], [place] [address]Performed By: #### 91722-1 ####[facility] LABIA [id number] [place], [place] [address]Isuylrtiwbf/100 WBC (Bld)15.3 %NormalKeenan Private Hospital on above:Order Comment: Specimen Type: BLOOD SPECIMENOrdering Facility: [facility] Address:[address] [place], [place] [address]Performed By: #### 14748-3 ####[facility] LABIA [id number] [place], [place] [address]SZT (RBC) [Entitic mass]36.3 uqLgry43.0-34.0[facility] on above:Order Comment: Specimen Type: BLOOD SPECIMENOrdering Facility: [facility] Address:[address] [place], [place] [address]Performed By: #### 93280-9 ####[facility] LABCLIA [id number] [place], [place] [address]RTHN (RBC) [Mass/Vol]35.3 g/gPFgouwp45.5-36.0[facility] on above: Order Comment: Specimen Type: BLOOD SPECIMENOrdering Facility: [facility] Address:[address] [place], [place] [address]Performed By: #### 24068- 8 ####[facility] LABCLIA [id number] [place], [place] [address]WLY (RBC) [Entitic vol]103.0 xRVsot68.0-100.0[facility] on above:Order Comment: Specimen Type: BLOOD SPECIMENOrdering Facility: [facility] Address:[address] [place], [place] [address]Performed By: #### 30868-7 ####[facility] LABIA [id number] [place], [place] [address]Havnbzbgt (Bld) [#/Vol]0.72 10*3/uLNormal<0.87[facility] on above:Order Comment: Specimen Type: BLOOD SPECIMENOrdering Facility: [facility] Address:[address] [place], [place] [address]Performed By: #### 52608- 8 ####[facility] LABCLIA [id number] [place], [place] [address]Gbhuhpwmz/100 WBC (Bld)10.6 %NormalKeenan Private Hospital on above:Order Comment: Specimen Type: BLOOD SPECIMENOrdering Facility: [facility] Address:[address] [place], [place] [address]Performed By: #### 88170-3 ####[facility] LABIA [id number] [place], [place] [address]Qjtbhvpeuoh (Bld) [#/Vol]4.60 10*3/uLNormal1.45-7.50[facility] on above:Order Comment: Specimen Type: BLOOD SPECIMENOrdering Facility: [facility] Address:[address] [place], [place] [address]Performed By: #### 45568-8 ####[facility] LABCLIA [id number] [place], [place] [address]Lsivhkshqvr/100 WBC (Bld)67.7 %NormalKeenan Private Hospital on above:Order Comment: Specimen Type: BLOOD SPECIMENOrdering Facility: [facility] Address:[address] [place], [place] [address]Performed By: #### [id number] ####[facility] LABCLIA [id number] [place], [place] [address]Rivfhkbzg RBC (Bld) [#/Vol] 10*3/uLNormal<0.01[facility] on above:Order Comment: Specimen Type: BLOOD SPECIMENOrdering Facility: [facility] Address:[address] [place], [place] [address]Performed By: #### [id number] ####[facility] LABCLIA [id number] [place] [place], [place] [address]Wislyfpie RBC/100 WBC (Bld) [Ratio]0.0 /100 WBCNormal [facility] on above:Order Comment: Specimen Type: BLOOD SPECIMENOrdering Facility: [facility] Address:[address] [place], [place] [address]Performed By: #### 15958-3 ####[facility] LABCLIA [id number] [place], [place] [address]Ralgxopx mean volume (Bld) [Entitic vol]10.6 fLNormal9.0-12.7CMarion Hospital on above:Order Comment: Specimen Type: BLOOD SPECIMENOrdering Facility: [facility] Address:[address] [place] [address] Performed By: #### 93111-6 ####[facility] LABCLIA [id number] [place], [place] [address]Npyukntua (Bld) [#/Vol]172 10*3/eTKwxelz859-673CyrtwpdtgKeenan Private Hospital on above:Order Comment: Specimen Type: BLOOD SPECIMENOrdering Facility: [facility] Address:[address] [place], [place] [address]Performed By: #### 24426-0 ####[facility] LABCLIA [id number] [place], [place] [address]WEE (Bld) [#/Vol]3.66 10*6/uLLow4.20-6.00[facility] on above:Order Comment: Specimen Type: BLOOD SPECIMENOrdering Facility: [facility] Address:[address] [place], [place] [address]Performed By: #### 33537-7 ####[facility] LABIA [id number] [place], [place] [address]BTC (Bld) [#/Vol]6.80 10*3/uL Normal3.70-11.00[facility] on above:Order Comment: Specimen Type: BLOOD SPECIMENOrdering Facility: [facility] Address:[address] [place], [place] [address]Performed By: #### 36550-1 ####[facility] LABIA [id number] [place], [place] [address]FCTZAJfa 31-91-6578NRSBQJTvshm (SP) Office (HEMASA) ZACH MANUEL ([id number]) 1945 M Date Time Provider Department 05/27/24 [...] date: Hyperlipidemia 11/2002: Monoclonal gammopathy Comment: IgG [place] 2002: Multiple myeloma (HCC) No date: Ulcerative [...] Prostate MRI IMPRESSION: Enla (more content not included)...NormalKettering Memorial HospitalCNPNon 64-63-8815ODWXVmuyuuubg (HEMASA) ZACH MANUEL ([id number]) 1945 [place] Date Time Provider Department 05/27/24 [...] Type 2 diabetes mellitus without complication (*10/20/2015 penitentiary current use of systemic steroids [Z79*10/20/2015 Left inguinal hernia [K40.90] 10/20/2015 Former smoker [Z87.891] 10/20/2015 Elevated prostate specific antigen (PSA) [R97.2*03/19/2020 Stage 3 chronic kidney disease, unspecified whe*03/06/2023 Encounter Status:Closed by JUAN FERGUSON on 05/27/24NormalClevelECU Health Chowan HospitalComprehensive metabolic 2000 panelon 82-92-1271Umxkzew [Mass/Vol]3.9 g/dLNormal3.9-4.9CGrant HospitalComment on above:Order Comment: Specimen Type: BLOOD SPECIMENOrdering Facility: [facility] Address:[address] [place], [place] [address]Result Comment: Corrected result: Previously reported as 4.1 g/dL on 05/27/2024 at 1:22 PM EDT.Performed By: #### 34604-8 ####[facility] LABCLIA [id number] [place] [address] [place] AMERICAALP [Catalytic activity/Vol]74 U/QEpewji29-941YqdboglkaKeenan Private Hospital on above:Order Comment: Specimen Type: BLOOD SPECIMENOrdering Facility: [facility] Address:[address] [place], [place] [address]Result Comment: Corrected result: Previously reported as 77 U/L on 05/27/2024 at 1:22 PM EDT.Performed By: #### 04399-5 ####[facility] LABIA [id number] [place] [address] [place] AMERICAALT [Catalytic activity/Vol]16 U/MJqwrid36-07PdbizttkrKeenan Private Hospital on above:Order Comment: Specimen Type: BLOOD SPECIMENOrdering Facility: [facility] Address:[address] [place], [place] [address]Result Comment: Corrected result: Previously reported as 10 U/L on 05/27/2024 at 1:22 PM EDT.Performed By: #### 41989-2 ####[facility] LABCLIA [id number] [place] [address] [place] AMERICAAnion gap [Moles/Vol] 12 mmol/LNormal8-15[facility] on above:Order Comment: Specimen Type: BLOOD SPECIMENOrdering Facility: [facility] Address:[address] [place], [place] [address]Performed By: #### 21498-8 ####[facility] LABIA [id number] [place] [address] [place] AMERICAAST [Catalytic activity/Vol]20 U/SVefmdt67-40UeflkmkxrKeenan Private Hospital on above:Order Comment: Specimen Type: BLOOD SPECIMENOrdering Facility: [facility] Address:[address], [place], [place] [address]Sxrmaa Comment: Corrected result: Previously reported as 13 U/L on 05/27/2024 at 1:22 PM EDT.Performed By: #### 60749-6 ####[facility] LABCLIA [id number] [place] [address] [place] AMERICABilirubin [Mass/Vol]0.9 mg/dL Normal0.2-1.3CGrant HospitalComment on above:Order Comment: Specimen Type: BLOOD SPECIMENOrdering Facility: [facility] Address:[address] [place], [place] [address]Performed By: #### 30868-8 ####[facility] LABCLIA [id number] [place] [address] [place] AMERICACalcium [Mass/Vol]8.5 mg/dLNormal8.5-10.2ClevelECU Health Chowan HospitalComment on above:Order Comment: Specimen Type: BLOOD SPECIMENOrdering Facility: [facility] Address:[address] [place], [place] [address]Performed By: #### 76891-2 ####[facility] LABCLIA [id number] [place] [address] [place] AMERICAChloride [Moles/Vol]106 mmol/LVxbpfi95-737YaofccamgKettering Memorial Hospital Comment on above:Order Comment: Specimen Type: BLOOD SPECIMENOrdering Facility: [facility] Address:[address] [place], [place] [address]Result Comment: Result rechecked.Performed By: #### 24616-4 ####[facility] LABCLIA [id number] [place] [address] [place] AMERICACO2 [Moles/Vol]27 mmol/JVkujly09-23BpiunwzbfKettering Memorial Hospital Comment on above:Order Comment: Specimen Type: BLOOD SPECIMENOrdering Facility: [facility] Address:[address] [place], [place] [address]Result Comment: Corrected result: Previously reported as 29 mmol/L on 05/27/2024 at 1:22 PM EDT.Performed By: #### 42829-1 ####[facility] LABIA [id number] [place] [address] [place] [facility] Creatinine [Mass/Vol]1.59 mg/dLHigh0.73-1.22[facility] on above:Order Comment: Specimen Type: BLOOD SPECIMENOrdering Facility: [facility] Address:[address] [place], [place] [address]Result Comment: Corrected result: Previously reported as 1.61 mg/dL on 05/27/2024 at 1:22 PM EDT. Performed By: #### 24945-2 ####[facility]ENTERIA [id number] [address] Creatinine and Glomerular filtration rate.predicted panel (S/P/Bld)44 mL/min/1.73m???Low>=60[facility] on above:Order Comment: Specimen Type: BLOOD SPECIMENOrdering Facility: [facility] Address:[address] [place], [place] [address]Result Comment: Estimated Glomerular Filtration Rate (eGFR) is calculated using the 2020 CKD-EPI creatinine equation. This equation utilizes serum creatinine, sex, and age as parameters. The creatinine assay has traceable calibration to isotope dilution-mass spectrometry. Refer to KDIGO guidelines for clinical interpretation. In patients with unstable renal function, e.g. those with acute kidney injury, the eGFR may not accurately reflect actual GFR.Performed By: #### 86587-0 ####[facility]ENTERIA [id number] [address] STATES OF [facility] HOSPITALGlucose [Mass/Vol]78 mg/cKEqpklx92-51PvglzefiqKeenan Private Hospital on above:Order Comment: Specimen Type: BLOOD SPECIMENOrdering Facility: [facility] Address:[address] [place], [place] [address]Result Comment: The [place] Diabetes Association (ADA) provides guidance for cutoff [...] Standards of Medical Care in Diabetes 2016, [place] Diabetes Association. Diabetes Care. 2016.39(Suppl 1). Corrected result: Previously reported as 85 mg/dL on 05/27/2024 at 1:22 PM EDT. Performed By: #### 53993-4 ####[facility] LABIA [id number] [place] [address] [place] Potassium [Moles/Vol]4.5 mmol/LNormal3.7-5.1CMarion Hospital on above:Order Comment: Specimen Type: BLOOD SPECIMENOrdering Facility: [facility] Address:[address] [place], [place] [address]Performed By: #### 49233-0 ####[facility] [id number] [place] [address] [place] AMERICAProtein [Mass/Vol]6.6 g/dLNormal6.3-8.0[facility] on above:Order Comment: Specimen Type: BLOOD SPECIMENOrdering Facility: [facility] Address:[address] [place], [place] [address]Result Comment: Corrected result: Previously reported as 6.3 g/dL on 05/27/2024 at 1:22 PM EDT.Performed By: #### 62474-4 ####[facility] [id number] [place] [address] [place] AMERICASodium [Moles/Vol]145 mmol/SKaot034-298ZefvmwkyfKeenan Private Hospital on above:Order Comment: Specimen Type: BLOOD SPECIMENOrdering Facility: [facility] Address:[address] [place], [place] [address]Result Comment: Result rechecked. Performed By: #### 49594-1 ####[facility] LABCLIA [id number] [place] [address] [place] Urea nitrogen [Mass/Vol]15 mg/dLNormal9-24[facility] on above:Order Comment: Specimen Type: BLOOD SPECIMENOrdering Facility: [facility] Address:[address] [place], [place] [address]Result Comment: Corrected result: Previously reported as 17 mg/dL on 05/27/2024 at 1:22 PM EDT. Performed By: #### 23015-0 ####[facility] LABCLIA [id number] [address] OF [facility] IMMUNOFIXATION SCREEN, SERUMon 90-44-7734YPSKOKIMITBXTU (MPA)Atypical restricted bands are present in the IgG and kappa regions. Consistent with IgG kappa monoclonal gammopathy.NormalKeenan Private Hospital on above:Order Comment: Specimen Type: BLOOD SPECIMENOrdering Facility: [facility] Address:[address] [place], [place] [address]Performed By: #### IFESC ####[facility] LABCLIA [id number] [place] [address] [place] AMERICAMPA RESULTM protein is present. AbnormalNo M protein is identified.[facility] on above: Order Comment: Specimen Type: BLOOD SPECIMENOrdering Facility: [facility] Address:[address] [place], [place] [address]Performed By: #### IFESC ####[facility] LABCLIA [id number] [address] STATES OF AMERICASTAFF REVIEW (MPA)Reviewed by Kishor AranaalCMarion Hospital on above:Order Comment: Specimen Type: BLOOD SPECIMENOrdering Facility: [facility] Address:[address] [place], [place] [address]Performed By: #### IFESC ####[facility] LABCLIA [id number] [facility] [address], [place] [address] [place] AMERICAIMMUNOGLOBULINS,IGG,IGA,IGMon 28-64-7239RrF [Mass/Vol]94 mg/qKJmrxbg81-072UogugtpslKeenan Private Hospital on above:Order Comment: Specimen Type: BLOOD SPECIMENOrdering Facility: [facility] Address:[address] [place], [place] [address]Performed By: #### SERIMM ####[facility] LABCLIA [id number] [place] [address] [place] AMERICAIgG [Mass/Vol]1157 mg/xHXqikkp041-4517XusnydnzbKeenan Private Hospital on above:Order Comment: Specimen Type: BLOOD SPECIMENOrdering Facility: [facility] Address:[address] [place], [place] [address]Performed By: #### SERIMM ####[facility] LABCLIA [id number] [facility] [id number] [place] [address] [place] AMERICAIgM [Mass/Vol]18 mg/sWHep30-002 [facility] on above:Order Comment: Specimen Type: BLOOD SPECIMENOrdering Facility: [facility] Address:[address] [place], [place] [address]Performed By: #### SERIMM ####[facility] LABIA [id number] [place] [address] [place] AMERICAKAPPA/DANIELS,FREE,SERon 63-66-0636Gtidkjrxsbjnpu light chains.kappa.free (S) [Mass/Vol]40.4 mg/LHigh3.3-19.4CMarion Hospital on above: Order Comment: Specimen Type: BLOOD SPECIMENOrdering Facility: [facility] Address:[address] [place], [place] [address]Result Comment: Rarely, increased serum free light chains levels may not be detected or accurately q uantified due to prozone phenomenon or in high viscosity samples using this immunoturbidimetric assay. Correlation with other laboratory results and clinical findings is recommended. The [place] Free Light Chain was performed using the Binding Site Optilite immunoturbidimetric method. Result obtained with different assay methods or kits cannot be used interchangeably.Performed By: #### KLFRS ####[facility] LABIA [id number] [place] [address] [place] AMERICAImmunoglobulin light chains.kappa/Immunoglobulin light chains.lambda (S) [Mass ratio]1.60Icqwna3.26-1.65[facility] Comment on above:Order Comment: Specimen Type: BLOOD SPECIMENOrdering Facility: [facility] Address:[address] [place] [address] Performed By: #### KLFRS ####[facility] [id number] [address]ETImmunoglobulin light chains.lambda.free [Mass/Vol]25.0 mg/LNormal5.7-26.3CGrant HospitalComment on above:Order Comment: Specimen Type: BLOOD SPECIMENOrdering Facility: [facility] Address:[address] [place], [place] [address]Result Comment: Rarely, increased serum free light chains [...] cannot be used interchangeably.Performed By: #### KLFRS ####[facility] LABIA [id number] [place] [address] [place] AMERICAPROTEIN ELECTROPHORESIS SERUM (P)on 76-17-4816Wkxjlpz [Mass/Vol]3.79 g/dLNormal3.43-5.41[facility] on above: Order Comment: Specimen Type: BLOOD SPECIMENOrdering Facility: [facility] Address:[address] [place], [place] [address]Performed By: #### [id number] ####[facility] LABIA [id number] [place] [address] [place] AMERICAAlpha 1 globulin Elph [Mass/Vol]0.23 g/dLNormal0.18-0.43[facility] on above: Order Comment: Specimen Type: BLOOD SPECIMENOrdering Facility: [facility] Address:[address] [place], [place] [address]Performed By: #### [id number] ####[facility] LABIA [id number] [place] [address] [place] AMERICAAlpha 2 globulin Elph [Mass/Vol]0.59 g/dLNormal0.42-0.98[facility] on above: Order Comment: Specimen Type: BLOOD SPECIMENOrdering Facility: [facility] Address:[address] [place], [place] [address]Performed By: #### [id number] ####[facility] LABIA [id number] [place] [address] [place] AMERICABeta globulin Elph [Mass/Vol]0.61 g/dLNormal0.61-1.17[facility] on above: Order Comment: Specimen Type: BLOOD SPECIMENOrdering Facility: [facility] Address:[address] [place], [place] [address]Performed By: #### [id number] ####[facility] LABIA [id number] [place] [address] [place] AMERICAGamma globulin Elph [Mass/Vol]0.98 g/dLNormal0.53-1.51[facility] on above: Order Comment: Specimen Type: BLOOD SPECIMENOrdering Facility: [facility] Address:[address] [place], [place] [address]Performed By: #### [id number] ####[facility] LABIA [id number] [place] [address] [place] AMERICAINTERPRETATION COMMENT FOR PROTEIN ELECTROPHORESISSee separate immunofixation report for characterization of monoclonal gammopathy.NormalKettering Memorial Hospital Comment on above:Order Comment: Specimen Type: BLOOD SPECIMENOrdering Facility: [facility] Address:[address] [place] [address] Performed By: #### [id number] ####[facility] LABIA [id number] [place] [address] [place] M-PROTEIN LOCATIONGamma Fraction 1NormalKettering Memorial HospitalComment on above:Order Comment: Specimen Type: BLOOD SPECIMENOrdering Facility: [facility] Address:[address] [place], [place] [address]Performed By: #### [id number] ####[facility] LABIA [id number] [place] [address] [place] AMERICAProtein Fractions [Interp]An M protein is identified on protein electrophoresis.AbnormalNo definitive M protein is identified on protein electrophoresis.[facility]tering Memorial HospitalComment on above:Order Comment: Specimen Type: BLOOD SPECIMENOrdering Facility: [facility] Address:[address] [place], [place] [address]Performed By: #### [id number] ####[facility] LABIA [id number] [place] [address] [place] Protein.monoclonal Elph [Mass/Vol]0.67 g/dLHigh<=0.00[facility] Comment on above:Order Comment: Specimen Type: BLOOD SPECIMENOrdering Facility: [facility] Address:[address] [place] [address] Performed By: #### [id number] ####[facility] LABIA [id number] [place] [address] [place] SPE STAFF REVIEWReviewed by Endy AranaGrant Hospital Comment on above:Order Comment: Specimen Type: BLOOD SPECIMENOrdering Facility: [facility] Address:[address] [place] [address] Performed By: #### [id number] ####[facility] LABCLIA [id number] [facility]ENTERK [id number] STATES [place] Prot SerPl-mCncon 26-81-0304Tjtkdpk [Mass/Vol]6.2 g/dLLow6.3-8.0Kettering Memorial HospitalComment on above:Order Comment: Specimen Type: BLOOD SPECIMENOrdering Facility: [facility] Address:[address] [place], [place] [address]Performed By: #### 2885-2 ####[facility] LABCLIA [id number] [facility] [id number] OF PAT[place] CNPVangie 96-29-7064QTCBMxdgafrvi (HEMTSA) ZACH MANUEL ([id number]) 1945 M Date Time Provider Department 05/20/24 [...] Fully Assessed Reason for Visit: Lab Orders [4078] Primary Visit Diagnosis:Multiple myeloma not having achieved remission (HCC) [C90.00] Order(s):COMPREHENSIVE METABOLIC PANEL [SQCMP] Order #: [id number] FUTURE COMPLETE BLOOD COUNT AND DIFFERENTIAL [SQCBCDIF] Order #: [id number] FUTURE MONOCLONAL PROTEIN, SERUM (BLOOD) [SQSERMPA] Order #: [id number] FUTURE PROTEIN ELECTROPHORESIS SERUM W/INTERP [SQSEPG] Order #: [id number] FUTURE Prescriptions as of 05/20/2024 - lenalidomide [...] Type 2 diabetes mellitus without complication (*10/20/2015 [facility]ent[facility] current use of systemic steroids [Z79*10/20/2015 Left inguinal hernia [K40.90] 10/20/2015 Former smoker [Z87.891] 10/20/2015 Elevated prostate specific antigen (PSA) [R97.2*03/19/2020 Stage 3 chronic kidney disease, unspecified whe*03/06/2023 Encounter Status:Closed by IRMA TALAVERA on 05/20/24NoCleveland Clinic Medina HospitalCNPNon 74-43-1633QSYLTkxivjzyo (HEMASA) DOMITILAZACH ([id number]) 1945 M Date Time Provider Department 02/29/24 [...] Type 2 diabetes mellitus without complication (*10/20/2015 [facility]itent[facility] current use of systemic steroids [Z79*10/20/2015 Left inguinal hernia [K40.90] 10/20/2015 Former smoker [Z87.891] 10/20/2015 Elevated prostate specific antigen (PSA) [R97.2*03/19/2020 Stage 3 chronic kidney disease, unspecified whe*03/06/2023 Encounter Status:Closed by JUAN FERGUSON on 02/29/24NormalCThe [facility] W Auto Differential panel (Bld)on 52-26-7167Zcqqlrgia (Bld) [#/Vol] 0.09 10*3/uLNormal<0.11CMarion Hospital on above:Order Comment: Specimen Type: BLOOD SPECIMENOrdering Facility: [facility] Address:[address] [facility]ITALGEOVANNI [place], [place] [address]Dlggkcfdy By: #### 27882-4 ####[facility] LABCLIA [id number] [place], [place] [address]Dsmoxskxe/100 WBC (Bld)1.4 %NormalKeenan Private Hospital on above:Order Comment: Specimen Type: BLOOD SPECIMENOrdering Facility: [facility] Address:[address] [place], [place] [address]Performed By: #### 17663-7 ####[facility] LABCLIA [id number] [place], [place] [address]Flfqkuvmaedf cell count method Nom (Bld)AutoNormalClevelMercy Health St. [facility] on above:Order Comment: Specimen Type: BLOOD SPECIMENOrdering Facility: [facility] Address:[address] [place], [place] [address]Performed By: #### 84664-9 ####[facility] LABCLIA [id number] [place], [place] [address]Ipakwshcohi (Bld) [#/Vol]0.44 10*3/uLNormal<0.46[facility] on above:Order Comment: Specimen Type: BLOOD SPECIMENOrdering Facility: [facility] Address:[address] [place], [place] [address]Performed By: #### 01162-6 ####[facility] LABIA [id number] [place], [place] [address]Qigxxovmfjq/100 WBC (Bld)6.6 %NormalKeenan Private Hospital on above:Order Comment: Specimen Type: BLOOD SPECIMENOrdering Facility: [facility] Address:[address] [place], [place] [address]Performed By: #### 83909-4 ####[facility] LABIA [id number] [place], [place] [address]Esvwgoqrtjt distribution width (RBC) [Ratio]15.4 %High 11.5-15.0[facility] on above:Order Comment: Specimen Type: BLOOD SPECIMENOrdering Facility: [facility] Address:[address] [place], [place] [address]Performed By: #### 40570-3 ####[facility] LABCLIA [id number] [place] [address] Hematocrit (Bld) [Volume fraction]38.0 %Low39.0-51.0[facility] Comment on above:Order Comment: Specimen Type: BLOOD SPECIMENOrdering Facility: [facility] Address:[address] [place] [address] Performed By: #### 17266-4 ####[facility] LABIA [id number] [place], [place] [address]Kwnggbryjv (Bld) [Mass/Vol]12.9 g/dLLow13.0-17.0[facility] on above:Order Comment: Specimen Type: BLOOD SPECIMENOrdering Facility: [facility] Address:[address] [place], [place] [address]Performed By: #### 09525-9 ####[facility] LABIA [id number] [place], [place] [address]Kgdgwdkm granulocytes (Bld) [#/Vol]0.04 10*3/uLNormal <0.10[facility] on above:Order Comment: Specimen Type: BLOOD SPECIMENOrdering Facility: [facility] Address:[address] [place], [place] [address]Performed By: #### 29287-1 ####[facility] LABIA [id number] [place], [place] [address]Ujmwmspp granulocytes/100 WBC (Bld)0.6 %NormalKeenan Private Hospital on above: Order Comment: Specimen Type: BLOOD SPECIMENOrdering Facility: [facility] Address:[address] [place], [place] [address]Performed By: #### 05467- 8 ####[facility] LABIA [id number] [place], [place] [address]Nhmehaiducf (Bld) [#/Vol]1.24 10*3/uLNormal1.00-4.00 [facility] on above:Order Comment: Specimen Type: BLOOD SPECIMENOrdering Facility: [facility] Address:[address] [place], [place] [address]Performed By: #### 22341-6 ####[facility] LABCLIA [id number] [place], [place] [address]Qkopbcajuyq/100 WBC (Bld)18.6 %NormalKeenan Private Hospital on above:Order Comment: Specimen Type: BLOOD SPECIMENOrdering Facility: [facility] Address:[address] [place], [place] [address]Performed By: #### [id number] ####[facility] LABCLIA [id number] [place], [place] [address]GED (RBC) [Entitic mass]35.5 zvPycb41.0-34.0[facility] on above:Order Comment: Specimen Type: BLOOD SPECIMENOrdering Facility: [facility] Address:[address] [place] [place], [place] [address]Performed By: #### 81189-3 ####[facility] LABCLIA [id number] [place], [place] [address]IUQM (RBC) [Mass/Vol]33.9 g/qJPwroco66.5-36.0[facility] on above: Order Comment: Specimen Type: BLOOD SPECIMENOrdering Facility: [facility] Address:[address] [place], [place] [address]Performed By: #### 20898- 8 ####[facility] LABCLIA [id number] [place], [place] [address]AJY (RBC) [Entitic vol]104.7 yAOvfo62.0-100.0[facility] on above:Order Comment: Specimen Type: BLOOD SPECIMENOrdering Facility: [facility] Address:[address] [place], [place] [address]Performed By: #### 80025-4 ####[facility] LABCLIA [id number] [place], [place] [address]Bkcvlgovj (Bld) [#/Vol]0.88 10*3/uLHigh<0.87[facility] on above:Order Comment: Specimen Type: BLOOD SPECIMENOrdering Facility: [facility] Address:[address] [place], [place] [address]Performed By: #### 48385- 8 ####[facility] LABCLIA [id number] [place], [place] [address]Bouhklahm/100 WBC (Bld)13.2 %NormalKeenan Private Hospital on above:Order Comment: Specimen Type: BLOOD SPECIMENOrdering Facility: [facility] Address:[address] [place], [place] [address]Performed By: #### 40477-0 ####[facility]ITAL[facility] [id number] [place], [place] [address]Rpykewfpyah (Bld) [#/Vol]3.96 10*3/uLNormal1.45-7.50[facility] on above:Order Comment: Specimen Type: BLOOD SPECIMENOrdering Facility: [facility] Address:[address] [place], [place] [address]Performed By: #### 27087-7 ####[facility] LABIA [id number] [place], [place] [address]Juqslukauan/100 WBC (Bld)59.6 %NormalKeenan Private Hospital on above:Order Comment: Specimen Type: BLOOD SPECIMENOrdering Facility: [facility] Address:[address] [place], [place] [address]Performed By: #### 99774-3 ####[facility] LABIA [id number] [place], [place] [address]Zsvhoslow RBC (Bld) [#/Vol] 10*3/uLNormal<0.01[facility] on above:Order Comment: Specimen Type: BLOOD SPECIMENOrdering Facility: [facility] Address:[address] [place], [place] [address]Performed By: #### 12728-4 ####[facility] LABCLIA [id number] [place], [place] [address]Dkmkyzriv RBC/100 WBC (Bld) [Ratio]0.0 /100 WBCNormal [facility] on above:Order Comment: Specimen Type: BLOOD SPECIMENOrdering Facility: [facility] Address:[address] [place], [place] [address]Performed By: #### 83829-5 ####[facility] LABCLIA [id number] [place], [place] [address]Orbggutv mean volume (Bld) [Entitic vol]10.6 fLNormal9.0-12.7CMarion Hospital on above:Order Comment: Specimen Type: BLOOD SPECIMENOrdering Facility: [facility] Address:[address] [place] [address] Performed By: #### 37601-3 ####[facility] LABCLIA [id number] [place], [place] [address]Zkzwsjycx (Bld) [#/Vol]203 10*3/uDPpudae156-220CwniluuczKeenan Private Hospital on above:Order Comment: Specimen Type: BLOOD SPECIMENOrdering Facility: [facility] Address:[address] [place], [place] [address]Performed By: #### 96714-6 ####[facility] LABCLIA [id number] [place], [place] [address]NUM (Bld) [#/Vol]3.63 10*6/uLLow4.20-6.00[facility] on above:Order Comment: Specimen Type: BLOOD SPECIMENOrdering Facility: [facility] Address:[address] [place], [place] [address]Performed By: #### 99109-2 ####[facility] LABCLIA [id number] [place], [place] [address]NFS (Bld) [#/Vol]6.65 10*3/uL Normal3.70-11.00[facility] on above:Order Comment: Specimen Type: BLOOD SPECIMENOrdering Facility: [facility] Address:[address] [place], [place] [address]Clscxyetp By: #### 66949-2 ####ANTHONYRADHAFARZANA [facility] LABCLIA [id number] [place], [place] [address]CKVWQRxo [id number] (SP) Office (HEMASA) ZACH MANUEL ([id number]) 1945 M Date Time Provider Department 02/26/24 [...] mellitus (HCC) Hyperlipidemia Monoclonal gammopathy 11/2002 IgG [place] Multiple myeloma (HCC) 2002 Ulcerative colitis (HCC) [...] right mid posterolateral (more content not included)...Normal [facility] HospitalComprehensive metabolic 2000 panelon 74-75-5417Omijvcx [Mass/Vol]3.9 g/dLNormal3.9-4.9CMarion Hospital on above:Order Comment: Specimen Type: BLOOD SPECIMENOrdering Facility: [facility] Address:[address] [place], [place] [address], [place] [address]Aakqzctmm By: #### 80425- 8 ####[facility] LABCLIA [id number] [place], [place] [address]CMF [Catalytic activity/Vol]78 U/QZclgpv14-418ZociemspiKeenan Private Hospital on above:Order Comment: Specimen Type: BLOOD SPECIMENOrdering Facility: [facility] Address:[address] [place], [place] [address]Performed By: #### 58731-5 ####[facility] LABCLIA [id number] [place], [place] [address]XZH [Catalytic activity/Vol]8 U/XMry68-77EyjentxueKeenan Private Hospital on above:Order Comment: Specimen Type: BLOOD SPECIMENOrdering Facility: [facility] Address:[address] [place], [place] [address]Performed By: #### 96836- 8 ####[facility] LABCLIA [id number] [facility] [place], [place] [address]Piqls gap [Moles/Vol]6 mmol/LLow8-15[facility] on above:Order Comment: Specimen Type: BLOOD SPECIMENOrdering Facility: [facility] Address:[address] [place], [place] [address]Performed By: #### 06665-4 ####[facility] LABCLIA [id number] [place], [place] [address]KGE [Catalytic activity/Vol]13 U/DHft38-27QlprssugqKeenan Private Hospital on above:Order Comment: Specimen Type: BLOOD SPECIMENOrdering Facility: [facility] Address:[address] [place], [place] [address]Performed By: #### 76560-4 ####[facility] LABCLIA [id number] [facility] CENTERCRUZITOBANNER GOLDFIELD [place] [address] Bilirubin [Mass/Vol]0.8 mg/dLNormal0.2-1.3CMarion Hospital on above:Order Comment: Specimen Type: BLOOD SPECIMENOrdering Facility: [facility] Address:[address] [place], [place] [address]Performed By: #### 51044-2 ####[facility] LABCLIA [id number] [place], [place] [address]Nikufcv [Mass/Vol]8.9 mg/dLNormal8.5-10.2CMarion Hospital on above:Order Comment: Specimen Type: BLOOD SPECIMENOrdering Facility: [facility] Address:[address] [place], [place] [address]Performed By: #### 94841-2 ####[facility] LABCLIA [id number] [place], [place] [address]Skzzyopd [Moles/Vol]103 mmol/KWyjaxj30-085QdtfaqrwsKeenan Private Hospital on above: Order Comment: Specimen Type: BLOOD SPECIMENOrdering Facility: [facility] Address:[address] [place], [place] [address]Performed By: #### 96208- 8 ####[facility] LABCLIA [id number] [place], [place] [address]PB2 [Moles/Vol]30 mmol/JCbztou24-35OiteqgtdpKeenan Private Hospital on above:Order Comment: Specimen Type: BLOOD SPECIMENOrdering Facility: [facility] Address:[address] [place], [place] [address]Performed By: #### 09036-1 ####[facility] LABCLIA [id number] [place], [place] [address]Xnrnoymhsn [Mass/Vol]1.70 mg/dL High0.73-1.22[facility] on above:Order Comment: Specimen Type: BLOOD SPECIMENOrdering Facility: [facility] Address:[address] [place], [place] [address]Performed By: #### 72626-8 ####[facility] LABCLIA [id number] [place] [address] Creatinine and Glomerular filtration rate.predicted panel (S/P/Bld)41 mL/min/1.73m???Low>=60[facility] on above:Order Comment: Specimen Type: BLOOD SPECIMENOrdering Facility: [facility] Address:[address] [place], [place] [address]Result Comment: Estimated Glomerular Filtration Rate (eGFR) is calculated using the 2020 CKD-EPI creatinine equation. This equation utilizes serum creatinine, sex, and age as parameters. The creatinine assay has traceable calibration to isotope dilution-mass spectrometry. Refer to KDIGO guidelines for clinical interpretation. In patients with unstable renal function, e.g. those with acute kidney injury, the eGFR may not accurately reflect actual GFR.Performed By: #### 57026-7 ####[facility] LABIA [id number] [place] [address] Glucose [Mass/Vol]175 mg/sVEbqi17-09ZwvwbkdmzKeenan Private Hospital on above: Order Comment: Specimen Type: BLOOD SPECIMENOrdering Facility: [facility] Address:[address] [place], [place] [address]Result Comment: The [place] Diabetes Association (ADA) provides guidance for cutoff [...] Standards of Medical Care in Diabetes 2016, [place] [employer] Association. Diabetes Care. 2016.39(Suppl 1).Performed By: #### 43277-7 ####[facility] LABCLIA [id number] [place], [place] [address]Fkstrypyp [Moles/Vol]4.8 mmol/LNormal3.7-5.1CMarion Hospital on above:Order Comment: Specimen Type: BLOOD SPECIMENOrdering Facility: [facility] Address:[address] [address]Performed By: #### 67830-8 ####[facility] LABCLIA [id number] [place], [place] [address]Erzmrql [Mass/Vol]6.7 g/dLNormal6.3-8.0[facility] on above:Order Comment: Specimen Type: BLOOD SPECIMENOrdering Facility: [facility] Address:[address] [place], [place] [address]Performed By: #### 72093- 8 ####[facility] LABCLIA [id number] [place], [place] [address]Uedvxf [Moles/Vol]139 mmol/XEvcrkj283-732DgkyxqhnqKeenan Private Hospital on above:Order Comment: Specimen Type: BLOOD SPECIMENOrdering Facility: [facility] Address:[address] [place], [place] [address]Performed By: #### 99079-9 ####[facility] LABCLIA [id number] [place], [place] [address]Sdxp nitrogen [Mass/Vol]23 mg/dLNormal9-24[facility] on above:Order Comment: Specimen Type: BLOOD SPECIMENOrdering Facility: [facility] Address:[address] [place], [place] [address]Performed By: #### 33096-7 ####[facility] LABCLIA [id number] [place], [place] [address]OEHYNOARJUGRST SCREEN, SERUMon 37-90-2872TSFEIJJNRICDKL (MPA)Atypical restricted bands are present in the IgG and kappa regions. Consistent with IgG kappa monoclonal gammopathy.NormalKettering Memorial Hospital Comment on above:Order Comment: Specimen Type: BLOOD SPECIMENOrdering Facility: [facility] Address:[address] [place] [address] Performed By: #### IFESC ####[facility] LABCLIA [id number] [facility] [place] [address] [place] AMERICAMPA RESULTM protein is present.AbnormalNo M protein is identified.[facility] Comment on above:Order Comment: Specimen Type: BLOOD SPECIMENOrdering Facility: [facility] Address:[address] [place] [address] Performed By: #### IFESC ####[facility] LABCLIA [id number] [place] [address] [place] AMERICASTAFF REVIEW ([facility])Reviewed by Dr. Joshua SchumacherMarion Hospital on above:Order Comment: Specimen Type: BLOOD SPECIMENOrdering Facility: [facility] Address:[address] [place], [place] [address]Performed By: #### IFESC ####[facility] LABCLIA [id number] [place] [address] [place] AMERICAIMMUNOGLOBULINS,IGG,IGA,IGMon 97-39-6888HfZ [Mass/Vol]96 mg/eUKjlgcw91-277JqmahybpvKeenan Private Hospital on above:Order Comment: Specimen Type: BLOOD SPECIMENOrdering Facility: [facility] Address:[address] [place], [place] [address]Performed By: #### SERIMM ####[facility] LABCLIA [id number] [place] [address] [place] AMERICAIgG [Mass/Vol]1109 mg/vCZpxoow424-3139AswutsaacKeenan Private Hospital on above:Order Comment: Specimen Type: BLOOD SPECIMENOrdering Facility: [facility] Address:[address] [place], [place] [address]Performed By: #### SERIMM ####[facility] LABCLIA [id number] [place] [address] [place] AMERICAIgM [Mass/Vol]17 mg/bSYgl12-193 [facility] on above:Order Comment: Specimen Type: BLOOD SPECIMENOrdering Facility: [facility] Address:[address] [place], [place] [address]Performed By: #### SERIMM ####[facility] LABCLIA [id number] [place] [address] [place] AMERICAKAPPA/DANIELS,FREE,SERon 88-67-5554Sxyfghvdafzxjq light chains.kappa.free (S) [Mass/Vol]40.3 mg/LHigh3.3-19.4CMarion Hospital on above: Order Comment: Specimen Type: BLOOD SPECIMEN [facility] Address: [address] [place], [place] [address]Result Comment: Rarely, increased serum free light chains levels may not be detected or accurately quantified due to prozone phenomenon or in high viscosity samples using this immunoturbidimetric assay. Correlation with other laboratory results and clinical findings is recommended. The [place] Free Light Chain was performed using the Binding Site Optilite immunoturbidimetric method. Result obtained with different assay methods or kits cannot be used interchangeably.Performed By: #### KLFRS #### [facility] LAB CLIA [id number] [address] [place] [address] [place] AMERICAImmunoglobulin light chains.kappa/Immunoglobulin light chains.lambda (S) [Mass ratio]1.57Normal 0.26-1.65[facility] on above:Order Comment: Specimen Type: BLOOD SPECIMEN [facility] Address: [address] [place], [place] [address]Performed By: #### KLFRS #### [facility] LAB CLIA [id number] [address] [place] [address] [place] AMERICAImmunoglobulin light chains.lambda.free [Mass/Vol]25.6 mg/LNormal5.7-26.3CGrant Hospital Comment on above:Order Comment: Specimen Type: BLOOD SPECIMEN [facility] Address: [address] [place], [place] [address]Result Comment: Rarely, increased serum free light chains [...] be used interchangeably.Performed By: #### KLFRS #### [facility] LAB CLIA [id number] [place] [address] [place] [facility]OSS HOSPITALPROTEIN ELECTROPHORESIS SERUM WITH TOÑITO (P)on 04-58-0789Akpdodv [Mass/Vol]4.08 g/dLNormal3.43-5.41 [facility] HospitalCommclaren [place]int on above:Order Comment: Specimen Type: BLOOD SPECIMENOrdering Facility: [facility] Address:[address] [place], [place] [address]Performed By: #### [id number] ####[facility] LABIA [id number] [place] [address] [place] AMERICAAlpha 1 globulin Elph [Mass/Vol]0.25 g/dLNormal0.18-0.43[facility] HospitalComment on above:Order Comment: Specimen Type: BLOOD SPECIMENOrdering Facility: [facility] Address:[address] [place], [place] [address]Performed By: #### [id number] ####[facility] LABIA [id number] [place] [address] [place] Alpha 2 globulin Elph [Mass/Vol]0.67 g/dLNormal0.42-0.98[facility] on above:Order Comment: Specimen Type: BLOOD SPECIMENOrdering Facility: [facility] Address:[address] [place], [place] [address]Performed By: #### [id number] ####[facility] LABIA [id number] [place] [address] [place] Beta globulin Elph [Mass/Vol]0.65 g/dLNormal0.61-1.17[facility] Comment on above:Order Comment: Specimen Type: BLOOD SPECIMENOrdering Facility: [facility] Address:[address] [place] [address] Performed By: #### [id number] ####[facility] LABCLIA [id number] [place] [address] [place] COMMENT (SERUM PROT ELECTRO)Monoclonal Protein analysis (immunofixation) is not indicated.[facility] on above:Order Comment: Specimen Type: BLOOD SPECIMENOrdering Facility: [facility] Address:[address] [place], [place] [address]Performed By: #### [id number] ####[facility] LABCLIA [id number] [place] [address] [place] AMERICAGamma globulin Elph [Mass/Vol] 1.05 g/dLNormal0.53-1.51[facility] on above:Order Comment: Specimen Type: BLOOD SPECIMENOrdering Facility: [facility] Address:[address] [place], [place] [address]Performed By: #### [id number] ####[facility] LABIA [id number] [address] STATES OF AMERICAINTERPRETATION COMMENT FOR PROTEIN ELECTROPHORESISSee separate immunofixation report for characterization of monoclonal gammopathy.[facility] Comment on above:Order Comment: Specimen Type: BLOOD SPECIMENOrdering Facility: [facility] Address:[address] [place] [address] Performed By: #### [id number] ####[facility] LABCLIA [id number] [place] [address] [place] M-PROTEIN LOCATIONGamma Fraction 1NormalKeenan Private Hospital on above:Order Comment: Specimen Type: BLOOD SPECIMENOrdering Facility: [facility] Address:[address] [place], [place] [address]Performed By: #### [id number] ####[facility] LABIA [id number] [place] [address] [place] AMERICAProtein Fractions [Interp]An M protein is identified on protein electrophoresis.AbnormalNo definitive M protein is identified on protein electrophoresis.[facility] on above:Order Comment: Specimen Type: BLOOD SPECIMENOrdering Facility: [facility] Address:[address] [place], [place] [address]Performed By: #### [id number] ####[facility] LABCLIA [id number] [place] [address] [place] Protein.monoclonal Elph [Mass/Vol]0.67 g/dLHigh<=0.00[facility] Comment on above:Order Comment: Specimen Type: BLOOD SPECIMENOrdering Facility: [facility] Address:[address] [place] [address] Performed By: #### [id number] ####[facility] LABIA [id number] [place] [address] [place] SPE STAFF REVIEWReviewed by Dr. Joshua White MDNormalCGrant Hospital Comment on above:Order Comment: Specimen Type: BLOOD SPECIMENOrdering Facility: [facility] Address:[address] [place] [address] Performed By: #### [id number] ####[facility] LABIA [id number] [place] [address] [place] Prot SerPl-mCncon 63-96-0326Loaaonr [Mass/Vol]6.3 g/dLNormal6.3-8.0[facility] HospitalComment on above:Order Comment: Specimen Type: BLOOD SPECIMENOrdering Facility: [facility] Address:[address] [place], [place] [address]Performed By: #### 2885-2 ####[facility] LABIA [id number] [place] [address] [place] AMERICABasic metabolic 2000 panelon 76-93-9740Tohdj gap [Moles/Vol]9 mmol/L9 - 18 mmol/LCleveland ClinicCalcium [Mass/Vol]9.0 mg/dL8.5 - 10.2 mg/dLGales Ferry ClinicChloride [Moles/Vol]102 mmol/L97 - 105 mmol/LCleveland ClinicCO2 [Moles/Vol]27 mmol/L22 - 30 mmol/LCleveland ClinicCreatinine [Mass/Vol]1.52 mg/dLHigh0.73 - 1.22 mg/dLCity HospitalEstimated Glomerular Filtration Rate47 mL/min/1.73mLow>=60 mL/min/1.73mCleveland ClinicGlucose [Mass/Vol]253 mg/dLHigh 74 - 99 mg/dLCity HospitalPotassium [Moles/Vol]4.5 mmol/L3.7 - 5.1 mmol/L [place]erry ClinicSodium [Moles/Vol]138 mmol/L136 - 144 mmol/LCleveland Virginia HospitalUrea nitrogen [Mass/Vol]29 mg/dLHigh9 - 24 mg/dLCity HospitalCB W Auto Differential panel (Bld)on 39-63-3923Jbotpxsdf (Bld) [#/Vol]0.05 10*3/uL<0.11 k/uLCity HospitalBasophils/100 WBC (Bld)0.7 %City HospitalDifferential cell count method Nom (Bld)AutoCleveland Virginia HospitalEosinophils (Bld) [#/Vol]0.07 10*3/uL<0.46 k/uLCity HospitalEosinophils/100 WBC (Bld)1.0 %[facility] Erythrocyte distribution width (RBC) [Ratio]14.0 %11.5 - 15.0 %[facility] Hematocrit (Bld) [Volume fraction]39.5 %39.0 - 51.0 %City HospitalHemoglobin (Bld) [Mass/Vol]13.7 g/dL13.0 - 17.0 g/dLCity HospitalImmature granulocytes (Bld) [#/Vol]0.03 10*3/uL<0.10 k/uLCity HospitalImmature granulocytes/100 WBC (Bld)0.4 %City HospitalLymphocytes (Bld) [#/Vol]0.82 10*3/uLLow1.00 - 4.00 k/uLCity HospitalLymphocytes/100 WBC (Bld)11.7 %[facility] OhioH (RBC) [Entitic mass]34.7 lmHovo15.0 - 34.0 pgCleveland Phillips Eye InstituteHC (RBC) [Mass/Vol]34.7 g/dL30.5 - 36.0 g/dLCity HospitalMCV (RBC) [Entitic vol]100.0 fL80.0 - 100.0 fLCleveland ClinicMonocytes (Bld) [#/Vol]1.05 10*3/uLHigh<0.87 k/uLCity HospitalMonocytes/100 WBC (Bld)15.0 %City HospitalNeutrophils (Bld) [#/Vol]4.96 10*3/uL1.45 - 7.50 k/uLCity HospitalNeutrophils/100 WBC (Bld)71.2 %City HospitalNucleated RBC (Bld) [#/Vol]<0.01 k/uLCity HospitalNucleated RBC/100 WBC (Bld) [Ratio]0.0 /100 WBCCity HospitalPlatelet mean volume (Bld) [Entitic vol]9.8 fL9.0 - 12.7 fLCleveland ClinicPlatelets (Bld) [#/Vol]207 10*3/uL150 - 400 k/uLCity HospitalRBC (Bld) [#/Vol]3.95 10*6/uLLow4.20 - 6.00 m/uL City HospitalWBC (Bld) [#/Vol]6.98 10*3/uL3.70 - 11.00 k/uLCity Hospital PSA, FREE AND TOTAL RATIOon 08-29-2022% Free PSA25.9 %NormalThe [facility] System West CampusComment on above:Result Comment: The table below lists [...] population of men.Performed By: #### PSAFREE #### [facility] [address] [place] [address] Dr. Tigre Schafer specific Ag [Mass/Vol]4.4 ng/mLCritically high0.0-4.0[facility] on above:Result Comment: [place] ECLIA methodology. . According to the [place] [employer], Serum PSA should decrease and [...] of malignant disease.Performed By: #### PSAFREE #### [facility] [address] [place] [address] Dr. Tigre Peck, Free1.14 ng/mLNormalN/AThKettering Health – Soin Medical CenterCommclaren [place]int on above:Result Comment: [place] ECLIA methodology.Performed By: #### PSAFREE #### [facility] [address] [place] [address] Dr. Tigre Peck, FREE AND TOTAL RATIOon 03-16-2022% Free PSA19.1 %NormalThe [facility] on above:Result Comment: The table below [...] population of men.Performed By: #### A1C #### [facility] [address] [place] [address] Dr. Tigre Peck, Free1.03 ng/mLNormalN/AThKettering Health – Soin Medical CenterCommclaren flint on above:Result Comment: [place] ECLIA methodology.Performed By: #### A1C #### [facility] [address] [place] [address] Dr. Tigre GantProstate specific Ag [Mass/Vol]5.4 ng/mLCritically high0.0-4.0[facility] Hospitalment on above:Result Comment: [place] ECLIA methodology. . According to the [employer] [employer], Serum PSA should decrease and [...] of malignant disease.Performed By: #### A1C #### [facility] [address] [place] [address] Dr. Tigre GantCBC AUTO DIFFon [id number] #0.1 103/ulNormal0.0-0.1[facility] on above:Performed By: #### CBC #### [facility] [address] [place] [address] Dr. Tigre GantBasophils/100 WBC (Bld)2.6 %Critically high0.2-2.0The [facility] CampusComment on above:Performed By: #### CBC #### [facility] [address] [place] [address] Dr. Landeros ChangEKatelyn #0.4 103/ulNormal0.0-0.7The [facility] CampusComment on above: Performed By: #### CBC #### [facility] [address] [place] [address] Dr. Tigre Miguelosinophils/100 WBC (Bld)7.7 %Critically high0.9-7.0[facility] on above:Performed By: #### CBC #### [facility] [address] [place] [address] Dr. Tigre Miguelrythrocyte distribution width (RBC) [Ratio]14.6 %Qeufmm13.0-15.[address] on above:Performed By: #### CBC #### [facility] [address] [address] [address] Tigre GantHematocrit (Bld) [Volume fraction]39.0 %Critically low42.0-54.0 The [facility] CampusComment on above:Performed By: #### CBC #### [facility] [address] [address] [address] Tigre GantHemoglobin (Bld) [Mass/Vol]12.9 g/dLCritically low14.0-18.0The [facility] CampusComment on above:Performed By: #### CBC #### [facility] [address] [address] [address] Tigre GantIG #0.03 10e3/ulNormal0.00-0.03The [facility] CampusComment on above:Performed By: #### CBC #### [facility] [address] [place] [address] Dr. Tigre Gan %0.6 %Critically high0.0-0.5The [facility] CampusComment on above:Performed By: #### CBC #### [facility] [address] [address] [address] Tigre Pereira #1.0 103/ulCritically low1.2-3.8The [facility] Comment on above:Performed By: #### CBC #### [facility] [address] [place] [address] Dr. Tigre Corbinmphocytes/100 WBC (Bld)19.9 %Critically low20.5-60.0The [facility] CampusComment on above:Performed By: #### CBC #### [facility] [address] [address] [address] Tigre GantMANUAL DIFF REQNONormalThe [facility] CampusComment on above: Performed By: #### CBC #### [facility] [address] [address] [address] Tigre Zamudio (RBC) [Entitic mass]33.7 flVyanuv56.9-34.0The [facility] CampusComment on above:Performed By: #### CBC #### [facility] [address] [place] [address] Dr. Tigre LynchHC (RBC) [Mass/Vol]33.1 g/kRGmiijv96.9-35.2The [facility] CampusComment on above:Performed By: #### CBC #### [facility] [address] [place] [address] Dr. Tigre LynchV (RBC) [Entitic vol]101.8 fLCritically high80.0-94.0The [facility] CampusComment on above:Performed By: #### CBC #### [facility] [address] [place] [address] Dr. Tigre Jenkins #0.7 103/ulNormal0.3-0.8The [facility] CampusComment on above:Performed By: #### CBC #### [facility] [address] [place] [address] Dr. Tigre Jeffersocytes/100 WBC (Bld)13.6 %Critically high1.7-12.0The [facility] CampusComment on above:Performed By: #### CBC #### [facility] [address] [place] [address] Dr. Tigre Purdy #2.7 103/ulNormal1.4-6.5The [facility] CampusComment on above:Performed By: #### CBC #### [facility] [address] [place] [address] Dr. Tigre Dickinsonutrophils/100 WBC (Bld)55.6 %Sjpxam22.0-75.0The [facility] CampusComment on above:Performed By: #### CBC #### [facility] [address] [place] [address] Dr. Tigre Araujolet mean volume (Bld) [Entitic vol]10.7 fLNormal9.5-13.5The [facility] CampusComment on above:Performed By: #### CBC #### [facility] [address] [place] [address] Dr. Tigre GantPLT209 103/toXvhjxw219-561Bso [facility] CampusComment on above: Performed By: #### CBC #### [facility] [address] [place] [address] Dr. Tigre GantRBC3.83 106/ulCritically low4.70-6.10The [facility] CampusCommclaren flint on above:Performed By: #### CBC #### [facility] [address] [place] [address] Dr. Tigre GantWBC4.9 103/ulNormal4.0-11.0The [facility] CampusCommclaren flint on above: Performed By: #### CBC #### [facility] [address] [place] [address] Dr. Tigre GantFREE T3on 91-95-5366TDST T32.60 pg/mlLNormal2.18-3.98[facility] on above:Performed By: #### A1C #### [facility] [address] [place] [address] Dr. Tigre GantGLYCOHEMOGLOBIN A1Con 33-25-9655BYK RECOMMENDATIONSEE BELOWKnox Community HospitalCommclaren flint on above:Result Comment: ADA RECOMMENDED LIMIT 4.0 - 6.0 ADA THERAPEUTIC TARGET < 7.0 ACTION SUGGESTED > 7.0Performed By: #### A1C #### [facility] [address] [place] [address] Dr. Tigre GantGlucose [Mass/Vol]189 mg/dLNoOhioHealth Hardin Memorial Hospital on above:Performed By: #### A1C #### [facility] [address] [place] [address] Dr. Tigre GantHbA1c (Bld) [Mass fraction]8.2 %Critically high4.5-6.2[facility] on above:Performed By: #### A1C #### [facility] [address] [place] [address] Dr. Tigre GantLIPID PROFILEon 53-30-3311DMEU-HDL RATIO NORMSEE BELOWCleveland Clinic South Pointe HospitalCommclaren flint on above:Result Comment: 3.3 - 4.4 LOW RISK 4.4 - 7.1 AVERAGE RISK 7.1 - 11.0 MODERATE RISK >11.0 HIGH RISKPerformed By: #### CMP, TSH, LIPID, FT3, T4 #### [facility] [address] [address] [address] Tigre Macedoesterol [Mass/Vol]157 mg/dLNormal<=200[facility] Comment on above:Performed By: #### CMP, TSH, LIPID, FT3, T4 #### [facility] [address] [address] [address] Tigre Macedoesterol in HDL [Mass/Vol]62 mg/dLCritically eyki68-99LjgUniversity Hospitals Geauga Medical CenterComment on above:Performed By: #### CMP, TSH, LIPID, FT3, T4 #### [facility] [address] [place] [address] Dr. Tigre Fan in LDL [Mass/Vol]62.8 mg/dLNoMercy Health Urbana HospitalComment on above:Performed By: #### CMP, TSH, LIPID, FT3, T4 #### [facility] [address] [place] [address] Dr. Tigre Fan.total/Cholesterol in HDL [Mass ratio]2.5 {ratio} NormalUniversity Hospitals Geauga Medical CenterComment on above:Performed By: #### CMP, TSH, LIPID, FT3, T4 #### [facility] [address] [place] [address] Dr. Tigre Watson NORMAL> or = 60 mg/dl - LOW CARDIOVASCULAR RISK <40 mg/dl - HIGH CARDIOVASCULAR RISKCleveland Clinic South Pointe HospitalComment on above:Performed By: #### CMP, TSH, LIPID, FT3, T4 #### [facility] [address] [place] [address] Dr. Tigre Morse CALC NORMALSEE BELOWCleveland Clinic South Pointe HospitalComment on above:Result Comment: <100 mg/dl OPTIMAL 100 - 129 mg/dl NEAR OR ABOVE OPTIMAL 130 - 159 mg/dl BORDERLINE HIGH 160 - 189 mg/dl HIGH >190 mg/dl VERY HIGH Performed By: #### CMP, TSH, LIPID, FT3, T4 #### [facility] [address] [place], [place] [id number] Dr. Tigre GantTriglyceride [Mass/Vol]161 mg/dLCritically high<=150The [facility] Hospitalment on above:Performed By: #### CMP, TSH, LIPID, FT3, T4 #### [facility] [address] [place] [address] Dr. Tigre GantVLDL CALC32.2 mg/dLNormalThe [facility] CampusComment on above: Performed By: #### CMP, TSH, LIPID, FT3, T4 #### [facility] [address] [place] [address] Dr. Tigre GantPROF 14(COMP METB)on 28-32-0048Xxmqibt [Mass/Vol]3.5 g/dLNormal 3.4-5.0The [facility] CampusComment on above:Performed By: #### CMP, TSH, LIPID, FT3, T4 #### [facility] [address] [place] [address] Dr. Tigre GantAlbumin/Globulin [Mass ratio]1.1 {ratio}NormalThe [facility] CampusComment on above:Performed By: #### CMP, TSH, LIPID, FT3, T4 #### [facility] [address] [place] [address] Dr. Tigre Maddox [Catalytic activity/Vol]67 U/WZnysnr45-397Lda [facility] CampusComment on above:Performed By: #### CMP, TSH, LIPID, FT3, T4 #### [facility] [address] [place] [address] Dr. Tigre Dooley [Catalytic activity/Vol]17 U/PCweotc67-09Knq [facility] CampusComment on above:Performed By: #### CMP, TSH, LIPID, FT3, T4 #### [facility] [address] [place] [address] Dr. Tigre Maldonado gap [Moles/Vol]14.6 mmol/LNormalThe [facility] on above:Performed By: #### CMP, TSH, LIPID, FT3, T4 #### [facility] [address] [place] [address] Dr. Yilan ChangAST [Catalytic activity/Vol]16 U/DStsbft20-29Sfr [facility] CampusComment on above:Performed By: #### CMP, TSH, LIPID, FT3, T4 #### [facility] [address] [place] [address] Dr. Tigre GantBilirubin [Mass/Vol]1.2 mg/dLCritically high0.2-1.0The [facility] CampusComment on above:Performed By: #### CMP, TSH, LIPID, FT3, T4 #### [facility] [address] [place] [address] Dr. Tigre GantCalcium [Mass/Vol]7.8 mg/dLCritically low8.5-10.1The [facility] CampusComment on above:Performed By: #### CMP, TSH, LIPID, FT3, T4 #### [facility] [address] [place] [address] Dr. Tigre GantChloride [Moles/Vol]106 mmol/JUhhjji02-927Eoz [facility] Comment on above:Performed By: #### CMP, TSH, LIPID, FT3, T4 #### [facility] [address] [place] [address] Dr. Tigre GantCO2 [Moles/Vol]26.5 mmol/WGicuom32.0-32.0The [facility] Comment on above:Performed By: #### CMP, TSH, LIPID, FT3, T4 #### [facility] [address] [place] [address] Dr. Tigre GantCreatinine [Mass/Vol]1.48 mg/dLCritically high0.70-1.30[facility] on above:Performed By: #### CMP, TSH, LIPID, FT3, T4 #### [facility] [address] [place] [address] Dr. Landeros ChangEGFR-AF KROADBMQ69 mL/min/1.97h5Lrgrrktcck low>=60The [facility] CampusComment on above:Performed By: #### CMP, TSH, LIPID, FT3, T4 #### [facility] [address] [place] [address] Dr. Tigre MiguelGFR-NON AF SXQRRLSU53 mL/min/1.40w3Nbgvwxfbvo low>=60The [facility] CampusComment on above:Performed By: #### CMP, TSH, LIPID, FT3, T4 #### [facility] [address] [place] [address] Dr. Tigre GantGlobulin (S) [Mass/Vol]3.3 g/dLNormalThe [facility] CampusComment on above:Performed By: #### CMP, TSH, LIPID, FT3, T4 #### [facility] [address] [place] [address] Dr. Tigre GantGlucose [Mass/Vol]99 mg/uBGtdqlx10-625DtzUniversity Hospitals [facility] Comment on above:Performed By: #### CMP, TSH, LIPID, FT3, T4 #### [facility] [address] [place] [address] Dr. Tigre GantPotassium [Moles/Vol]4.1 mmol/LNormal3.5-5.1The [facility] Comment on above:Performed By: #### CMP, TSH, LIPID, FT3, T4 #### [facility] [address] [place] [address] Dr. Tigre GantProtein [Mass/Vol]6.8 g/dLNormal6.4-8.2The [facility] Comment on above:Performed By: #### CMP, TSH, LIPID, FT3, T4 #### [facility] [address] [place] [address] Dr. Tigre GantSodium [Moles/Vol]143 mmol/WNbpthz411-148Ogu [facility] Comment on above:Performed By: #### CMP, TSH, LIPID, FT3, T4 #### [facility] [address] [place] [address] Dr. Tigre GantUrea nitrogen [Mass/Vol]17.0 mg/dLNormal7.0-18.0The [facility] CampusComment on above:Performed By: #### CMP, TSH, LIPID, FT3, T4 #### [facility] [address] [place] [address] Dr. Tigre GantUrea nitrogen/Creatinine [Mass ratio]11.5 mg/mgNormalThe [facility] CampusComment on above:Performed By: #### CMP, TSH, LIPID, FT3, T4 #### [facility] [address] [place] [address] Dr. Tigre GantT4on 99-06-6324P6 [Mass/Vol]6.30 ug/dLNormal4.50-12.10The [facility] CampusCommclaren flint on above:Performed By: #### CMP, TSH, LIPID, FT3, T4 #### [facility] [address] [place] [address] Dr. Tigre GantTSHon 93-47-0207VLO5.904 uIU/mLCritically high0.358-3.740The [facility] Hospitalment on above:Performed By: #### CMP, TSH, LIPID, FT3, T4 #### [facility] [address] [place] [address] Dr. Tigre LopezA, FREE AND TOTAL RATIOon 12-21-2021% Free PSA24.5 %NormalThe [facility] on above:Result Comment: The table below [...] population of men.Performed By: #### A1C #### [facility] [address] [place] [address] Dr. Tigre GantProstate specific Ag [Mass/Vol]4.2 ng/mLCritically high0.0-4.0[facility] on above:Result Comment: [place] ECLIA methodology. . According to the [place] [employer], Serum PSA should decrease and [...] of malignant disease.Performed By: #### A1C #### [facility] [address] [place] [address] Dr. Tigre Peck, Free1.03 ng/mLNormalN/AThe [facility] CampusComment on above:Result Comment: [place] ECLIA methodology.Performed By: #### A1C #### [facility] [address] [place] [address] Dr. Tigre DangeloOSTRIDIUM DIFFICILE PCRon 09-13-2021 difficile Toxin Gene SHOSHANA NegativeNormalNegativeThe [facility] CampusComment on above:Performed By: #### A1C #### [facility] [address] [place] [address] Dr. Tigre Tan PANEL (PCR)on 04-27-3676Byslpjmikn F 40/41Not detectedNormal NOT DETECTEDThe [facility] CampusComment on above:Performed By: #### GIPANEL #### [facility] [address] [place] [address] Dr. Tigre GantAstrovirusNot detectedNormalNOT DETECTEDThe [facility] Comment on above:Performed By: #### GIPANEL #### [facility] [address] [place] [address] Dr. Tigre Deng. Diff toxin A/BNot detectedNormalNOT DETECTEDThe [facility] CampusComment on above:Performed By: #### GIPANEL #### [facility] [address] [place] [address] Dr. Tigre ReyespylobacterNot detectedNormalNOT DETECTEDThe [facility] Comment on above:Performed By: #### GIPANEL #### [facility] [address] [place] [address] Dr. Tigre GantCryptosporidiumNot detectedNormalNOT DETECTEDThe [facility] HospitalComment on above:Performed By: #### GIPANEL #### [facility] [address] [address] [address] Tigre Murphy. CayetanensisNot detectedNormalNOT DETECTEDThe [facility] CampusComment on above:Performed By: #### GIPANEL #### [facility] [address] [address] [address] Tigre Flor Coli R925Hdn ApplicableNormalNot ApplicableThe [facility] CampusComment on above:Performed By: #### GIPANEL #### [facility] [address] [address] [address] Tigre Flor histolyticaNot detectedNormalNOT DETECTEDThe [facility] Comment on above:Performed By: #### GIPANEL #### [facility] [address] [address] [address] Tigre MiguelAECNot detectedNormalNOT DETECTEDThe [facility] CampusComment on above:Performed By: #### GIPANEL #### [facility] [address] [address] [address] Tigre MiguelIECNot detectedNormalNOT DETECTEDThe [facility] CampusComment on above:Performed By: #### GIPANEL #### [facility] [address] [address] [address] Tigre MiguelPECNot detectedNormalNOT DETECTEDThe [facility] CampusComment on above:Performed By: #### ARLINANEL #### [facility] [address] [address] [address] Tigre MiguelTECNot detectedNormalNOT DETECTEDThe [facility] CampusComment on above:Performed By: #### GIPANEL #### [facility] [address] [address] [address] Tigre Vale. LambliaNot detectedNormalNOT DETECTEDThe [facility] Comment on above:Performed By: #### GIPANEL #### [facility] [address] [address] [address] Tigre Virk CONTROLSPASSEDNormalThe [facility] CampusComment on above:Performed By: #### GIPANEL #### [facility] [address] [address] [address] Tigre Morton OLGA HEADERGI [facility] Comment on above:Performed By: #### MARYLUL #### [facility] [address] [address] [address] Tigre Suarez ECOLIGI PANEL DIARRHEAGENIC E.COLI / SHIGELLACleveland Clinic South Pointe HospitalComment on above:Performed By: #### BOBBY #### [facility] [address] [address] [address] Tigre Suarez INFOSEE [facility] HospitalComment on above: Result Comment: EAEC- Enteroaggregative E. Coli EPEC- Enteropathogenic E. Coli ETEC- Enterotoxigenic E. Coli lt/st STEC- Shigella-like toxin-producing E. Coli stx1/stx2 EIEC- Shigella/Enteroinvasive E. ColiPerformed By: #### BOBBY #### [facility] [address] [place] [address] Dr. Tigre Suarez PARASITESGI [facility] PARASITESCleveland Clinic [facility]inte Hospital Comment on above:Performed By: #### BOBBY #### [facility] [address] [place] [address] Dr. Tigre Suarez VIRUSGI [facility] Brent[facility] HospitalComment on above:Performed By: #### BOBBY #### [facility] [address] [address] [address] Tigre Harprovirus GI/GIINot detectedNormalNOT DETECTEDThe [facility] CampusComment on above:Performed By: #### BOBBY #### [facility] [address] [address] [address] Tigre Sanchez. ShigelloidesNot detectedNormalNOT DETECTEDThe [facility] CampusComment on above:Performed By: #### BOBBY #### [facility] [address] [address] [address] Tigre GantRotavirus ANot detectedNormalNOT DETECTEDThe [facility] Comment on above:Performed By: #### GIPANEL #### [facility] [address] [address] [address] Tigre GantSalmonellaNot detectedNormalNOT DETECTEDThe [facility] Comment on above:Performed By: #### GIPANEL #### [facility] [address] [address] [address] Tigre GantSapovirusNot detectedNormalNOT DETECTEDThe [facility] Comment on above:Performed By: #### GIPANEL #### [facility] [address] [address] [address] Tigre GantSTECNot detectedNormalNOT DETECTEDThe [facility] CampusComment on above:Performed By: #### GIPANEL #### [facility] [address] [address] [address] Tigre BellbrioNot detectedNormalNOT DETECTEDThe [facility] CampusComment on above:Performed By: #### GIPANEL #### [facility] [address] [address] [address] Tigre Pratherio CholeraNot detectedNormalNOT DETECTEDUniversity Hospitals [facility] Comment on above:Performed By: #### GIPANEL #### [facility] [address] [address] [address] Tigre Morton. EnterocoliticaNot detectedNormalNOT DETECTEDThe [facility] CampusComment on above:Performed By: #### GIPANEL #### [facility] [address] [address] [address] Tigre GantXR lumbar spine 6V w bendingon 78-52-6610UK lumbar spine 6V w bendingCENTERVILLE [place] [address] [place] [address] XRay Report Signed Patient: Zach Manuel MR#: [id number] 9 : 1945 Acct:[id number] Age/Sex: 76 / M ADM Date: 05/05/21 Loc: XD [facility]: [facility]: Kosta Harper MD Ordering Provider: [...] Kumar Jr., M.D.05/05/2021 2:07 PM Dictation Location: [place] [address] Transcribed By: [facility] 05/05/21 1407 Dictated By: Carson Kumar Jr, MD 05/05/21 1355 Signed By: 05/05/21 1403[facility] FoundationFET[facility] RIGHT 2 [facility] [id number] RIGHT 2 [facility] Department of Radiology [address] [place] [id number] Patient Name: ZACH MANUEL : 1945 [...] hip Electronically signed by:Jazmín Hernandez. Transcribed by: [email or web address], User Resident: Electronically Signed by: JAZMÍN HERNANDEZ @ 05/16/2019 03:38 [facility] HealthComment on above:Order Comment: , , , Ordering Provider - ZHENG SCOTT PA-C , FEMUR RIGHT 2 VWSon [id number] RIGHT 2 SUniUniversity Hospitals Health System Department of Radiology [address] [place] [address] Patient Name: ZACH MANUEL : [...] healing. Electronically signed by:Jazmín Hernandez. Transcribed by: [email or web address], User Resident: Electronically Signed by: JAZMÍN HERNANDEZ @ 02/13/2019 05:05 [facility] HealthComment on above:Order Comment: , , , Ordering Provider - ZHENG SCOTT PA-C , FEMUR RIGHT 2 [facility] [id number] RIGHT 2 [facility]USniUniversity Hospitals Health System Department of Radiology [address] [place] [phone] Patient Name: ZACH MANUEL : 1945 [...] CROSS PA-C , Exam: FEMUR RIGHT 2 [facility] FEMUR RIGHT 2 VWS 01/09/2019 10:15 AM [...] reaction Electronically signed by:Soila Morris. Transcribed by: [email or web address], User Resident: Electronically Signed by: SOILA MORRIS @ 01/09/2019 12:25 [facility] HealthComment on above:Order Comment: , , , Ordering Provider - JACQUELINE CROSS PA-C , FEMUR RIGHT 2 VWSon 12-10-2018 FEMUR RIGHT 2 [facility]USniUniversity Hospitals Health System Department of Radiology [address] [place] [phone] Patient Name: ZACH MANUEL : 1945 [...] fracture Electronically signed by:Soila Morris. Transcribed by: [email or web address], User Resident: Electronically Signed by: SOILA MORRIS @ 12/10/2018 03:21 [facility] HealthComment on above:Order Comment: , Views (X-RAY, FEMUR): Radiologic Protocol , Weight Bearing?: Y , Views (X-RAY, FEMUR): Radiologic Protocol , Weight Bearing?: Y , , , Ordering Provider - ZHENG SCOTT PA-C , VITAMIN D 25-HYDROXYon [id number] D 25-OH40.2 ng/mL Zunref42.0-80.0The [facility] Geauga Medical CenterComment on above:Result Comment: >80.0 Toxicity possiblePerformed By: #### [id number] #### [address] [address], [facility] CHILDREN'S PSYCHIATRIC CENTERFEMUR RIGHT 2 [facility] [id number] RIGHT 2 SUniUniversity Hospitals Health System Department of Radiology [address] [place] [phone] Patient Name: ZACH MANUEL : 1945 [...] healing Electronically signed by:Soila Morris. Transcribed by: [email or web address], User Resident: Electronically Signed by: SOILA MORRIS @ 10/29/2018 02:17 [facility] HealthComment on above:Order Comment: , , , Ordering Provider - ZHENG SCOTT PA-C , FEMUR RIGHT 2 [facility] [id number] RIGHT 2 [facility]USniUniversity Hospitals Health System Department of Radiology [address] [place] [phone] Patient Name: ZACH MANUEL : 1945 [...] SCOTT PA-C , Exam: FEMUR RIGHT 2 [facility] FEMUR RIGHT 2 [facility] 09/20/2018 12:49 PM EST SIGNS AND SYMPTOMS: [...] bridging Electronically signed by:Soila Morris. Transcribed by: [id number], User Resident: Electronically Signed by: SOILA MORRIS @ 09/20/2018 01:08 [facility] HealthComment on above:Order Comment: , Views (X-RAY, FEMUR): AP, Lateral , Views (X-RAY, FEMUR): AP, Lateral , , , Ordering Provider - ZHENG SCOTT PA-C , FEMUR RIGHT 2 [facility] [id number] RIGHT [address] [facility] Department of Radiology [address] [place] [address] Patient Name: ZACH MANUEL : [...] disease Electronically signed by:Soila Morris. Transcribed by: [email or web address], User Resident: Electronically Signed by: SOILA MORRIS @ 08/23/2018 02:15 [facility] HealthComment on above:Order Comment: , Views (X-RAY, FEMUR): AP, Lateral , Views (X-RAY, FEMUR): AP, Lateral , , , Ordering Provider - ZHENG SCOTT PA-C , FEMUR RIGHT 2 [facility] [id number] RIGHT 2 [facility] Department of Radiology [address] [place] [id number] Patient Name: ZACH MANUEL : 1945 [...] above Electronically signed by:Soila Morris. Transcribed by: [id number], User Resident: Electronically Signed by: SOILA MORRIS @ 07/25/2018 02:02 PMNormalRegency Hospital Cleveland WestComment on above:Order Comment: , , , Ordering Provider - JACQUELINE CROSS PA-C , BASIC METABOLIC PANELon [id number] [Mass/Vol]8.2 mg/dLLow8.6-10.3The [facility] CenterComment on above:Order Comment: No: Do not add to previous drawPerformed By: #### 58036 #### [facility] [address] [place] [address], USAChloride [Moles/Vol]100 mmol/ANodriv85-941Snv [facility] CenterComment on above:Order Comment: No: Do not add to previous drawPerformed By: #### 13650 #### [facility] [address] [place] [address], USACO2 [Moles/Vol]25 mmol/QSdvsgv82-34Kqf [facility] CenterComment on above:Order Comment: No: Do not add to previous draw Performed By: #### 70266 #### [facility] [address] [place] [address], USACreatinine [Mass/Vol]1.11 mg/dLNormal0.70-1.30The [facility] CenterComment on above:Order Comment: No: Do not add to previous drawPerformed By: #### [id number] #### [facility] [address] [place] [address], USAGFR/1.73 sq M predicted among blacks MDRD (S/P/Bld) [Vol rate/Area]mL/min/{1.73_m2}Normal>60The [facility] Comment on above:Order Comment: No: Do not add to previous drawResult Comment: Calculation may not be valid for patients over 70 yearsPerformed By: #### [id number] #### [facility] [address] [place] [address], USAGFR/1.73 sq M predicted among non-blacks MDRD (S/P/Bld) [Vol rate/Area]mL/min/{1.73_m2}Normal>60The [facility] Comment on above:Order Comment: No: Do not add to previous drawResult Comment: Calculation may not be valid for patients over 70 yearsPerformed By: #### 83314 #### [facility] [address] [place] [address], USAGlucose [Mass/Vol]243 mg/oUNvza50-842Ubf [facility] CenterComment on above:Order Comment: No: Do not add to previous drawPerformed By: #### 29995 #### [facility] [address] [place] [address], USAPotassium [Moles/Vol]3.7 mmol/LNormal3.5-5.1The [facility] CenterComment on above:Order Comment: No: Do not add to previous drawPerformed By: #### 33800 #### [facility] [address] [place] [address], USASodium [Moles/Vol]131 mmol/QTnw468-023Mdh [facility] CenterComment on above:Order Comment: No: Do not add to previous drawPerformed By: #### [id number] #### [facility] [address] [place] [address], USAUrea nitrogen [Mass/Vol]18 mg/dLNormal7-25The [facility] CenterComment on above:Order Comment: No: Do not add to previous drawPerformed By: #### 69486 #### [facility] [address] [place] [address], USACBC COMPLETE BLOOD COUNTon 45-31-4415Gujjewjzgzy distribution width (RBC) [Ratio]12.4 %Duwewp42.5-15.0The [facility] CenterComment on above:Order Comment: No: Do not add to previous draw Performed By: #### 80074 #### [facility] [address] [place] [address], USAHematocrit (Bld) [Volume fraction]25.4 %Low39.0-50.0The [facility] CenterComment on above:Order Comment: No: Do not add to previous drawPerformed By: #### 10213 #### [facility] [address] [place] [place] [address], USAHemoglobin (Bld) [Mass/Vol]8.6 g/dLLow13.0-17.0The [facility] CenterComment on above:Order Comment: No: Do not add to previous drawPerformed By: #### 91764 #### [facility] [address] [place] [address], [facility] PSYCHIATRIC CENTERIMM PLATELET FRAC5.2 %Normal0.8-6.3The [facility] CenterComment on above:Order Comment: No: Do not add to previous draw Performed By: #### 03376 #### [facility] [address] [place] [address], [facility] (RBC) [Entitic mass]31.4 ltGyakio87.0-33.0The [facility] CenterComment on above:Order Comment: No: Do not add to previous drawPerformed By: #### 96647 #### [facility] [address] [place] [address], [facility] (RBC) [Mass/Vol]33.9 g/hAMcymtc31.0-35.0The [facility] CenterComment on above:Order Comment: No: Do not add to previous drawPerformed By: #### 58871 #### [facility] [address] [place] [address], [facility] (RBC) [Entitic vol]92.7 rWHpolon54.0-98.0The [facility] CenterComment on above:Order Comment: No: Do not add to previous drawPerformed By: #### 60177 #### [facility] [address] [place] [address], USANucleated RBC/100 WBC (Bld) [Ratio]0 %Normal0-0The [facility] CenterComment on above:Order Comment: No: Do not add to previous drawPerformed By: #### 75214 #### [facility] [address] [place] [address], USAPLAT [id number] 10*3/fBCiv323-406Zqq [facility] CenterComment on above:Order Comment: No: Do not add to previous draw Performed By: #### 76584 #### [facility] [address] [place] [address], USARBC (Bld) [#/Vol]2.74 10*6/uLLow4.20-5.70The [facility] CenterComment on above:Order Comment: No: Do not add to previous drawPerformed By: #### 73880 #### [facility] [address] [place] [address], USAWBC (Bld) [#/Vol]6.87 10*3/uLNormal4.00-10.60The [facility] CenterComment on above:Order Comment: No: Do not add to previous drawPerformed By: #### 28343 #### [facility] [address] [place], [place] [address], USAPOC GLUCOSE LABon 49-26-8173Beehcks [Mass/Vol]281 mg/dLHigh 70-100The [facility] CenterComment on above:Performed By: #### 19536 #### [facility] [address] [place], [place] [address], USAGlucose [Mass/Vol]250 mg/lKQsqu37-962Ryu [facility] CenterComment on above:Performed By: #### 87362, 07536 #### [facility] [address] [place] [address], USAGlucose [Mass/Vol]240 mg/cHJxso22-099Hmn [facility] CenterComment on above:Performed By: #### 01833, 65313 #### [facility] [address] [place], [place] [address], USABASIC METABOLIC PANELon 45-62-4208Knehxvk [Mass/Vol]8.0 mg/dLLow8.6-10.3The [facility] CenterComment on above:Order Comment: No: Do not add to previous drawPerformed By: #### 05532, 13212 #### [facility] [address] [place] [address], USAChloride [Moles/Vol]101 mmol/IRxndfr57-820Hch [facility] CenterComment on above:Order Comment: No: Do not add to previous drawPerformed By: #### 40419, 30115 #### [facility] [address] [place] [address], USACO2 [Moles/Vol]25 mmol/UViqwfg74-64Gey [facility] CenterComment on above:Order Comment: No: Do not add to previous draw Performed By: #### 41231, 14716 #### [facility] [address] [place] [address], USACreatinine [Mass/Vol]1.23 mg/dLNormal0.70-1.30The [facility] CenterComment on above:Order Comment: No: Do not add to previous drawPerformed By: #### 32241, 59468 #### [facility] [address] [place] [address], USAGFR/1.73 sq M predicted among blacks MDRD (S/P/Bld) [Vol rate/Area]mL/min/{1.73_m2}Normal>60The [facility] Comment on above:Order Comment: No: Do not add to previous drawResult Comment: Calculation may not be valid for patients over 70 yearsPerformed By: #### 09210, 26690 #### [facility] [address] [place] [address], USAGFR/1.73 sq M predicted among non-blacks MDRD (S/P/Bld) [Vol rate/Area]58 ml/min/1.73sq mAbnormal>60The [facility] CenterComment on above:Order Comment: No: Do not add to previous drawResult Comment: Calculation may not be valid for patients over 70 yearsPerformed By: #### 11471, 15258 #### [facility] [address] [place] [address], USAGlucose [Mass/Vol]207 mg/vLJchk53-820Twh [facility] CenterComment on above:Order Comment: No: Do not add to previous drawPerformed By: #### 42515, 00150 #### [facility] [address] [place] [address], USAPotassium [Moles/Vol]3.7 mmol/LNormal3.5-5.1The [facility] CenterComment on above:Order Comment: No: Do not add to previous drawPerformed By: #### 31590, 29486 #### [facility] [address] [place] [address], USASodium [Moles/Vol]130 mmol/MNyw134-631Dcs [facility] CenterComment on above:Order Comment: No: Do not add to previous drawPerformed By: #### 24036, 79315 #### [facility] [address] [place] [address], USAUrea nitrogen [Mass/Vol]16 mg/dLNormal7-25The [facility] CenterComment on above:Order Comment: No: Do not add to previous drawPerformed By: #### 53399, 48294 #### [facility] [address] [address], [facility] PSYCHIATRIC CENTERCBC W/DIFFon 75-24-2559AYZ BASOPHILS0.0 10*3/uLNormal 0.0-0.2The [facility] CenterComment on above:Order Comment: No: Do not add to previous drawPerformed By: #### 50968, 33631 #### [facility] [address] [place] [address], USAABS IMM GRANS0.1 10*3/uLNormal0.0-0.2The [facility] CenterComment on above:Order Comment: No: Do not add to previous drawPerformed By: #### 02314, 86802 #### [facility] [address] [place] [address], [facility] PSYCHIATRIC CENTERABS NEUTROPHILS7.6 10*3/uLNormal1.6-7.6The [facility] CenterComment on above:Order Comment: No: Do not add to previous drawPerformed By: #### 04555, 71808 #### [facility] [address] [place] [address], USABasophils/100 WBC (Bld)0.3 %Normal0.0-1.0The [facility] CenterComment on above:Order Comment: No: Do not add to previous drawPerformed By: #### 86211, 19405 #### [facility] [address] [place] [address], USAEosinophils (Bld) [#/Vol]0.1 10*3/uLNormal0.0-0.5The [facility] CenterComment on above:Order Comment: No: Do not add to previous drawPerformed By: #### 17313, 53851 #### [facility] [address] [place] [place] [address], USAEosinophils/100 WBC (Bld)1.6 %Normal0.0-6.0The [facility] CenterComment on above:Order Comment: No: Do not add to previous drawPerformed By: #### 41253, 40030 #### [facility] [address] [facility] [place] [address], USAErythrocyte distribution width (RBC) [Ratio]12.5 %Normal 11.5-15.0The [facility] CenterComment on above:Order Comment: No: Do not add to previous drawPerformed By: #### 00491, 06912 #### [facility] [address] [facility] [address], USAHematocrit (Bld) [Volume fraction]26.0 %Low39.0-50.0The [facility] CenterComment on above:Order Comment: No: Do not add to previous drawPerformed By: #### 93809, 10541 #### [facility] [address] [place] [address], USAHemoglobin (Bld) [Mass/Vol]8.8 g/dLLow13.0-17.0The [facility] CenterComment on above:Order Comment: No: Do not add to previous drawPerformed By: #### 14048, 48204 #### [facility] [address] [place] [address], USAIMM PLATELET FRAC4.5 %Normal0.8-6.3The [facility] CenterComment on above:Order Comment: No: Do not add to previous draw Performed By: #### 47147, 22098 #### [facility] [address] [place] [address], USAIMMATURE GRANS0.6 %Normal0.0-1.0The [facility] CenterComment on above:Order Comment: No: Do not add to previous draw Performed By: #### 95101, 61112 #### [facility] [address] [place] [address], USALymphocytes (Bld) [#/Vol]0.2 10*3/uLLow1.2-4.0The [facility] CenterComment on above:Order Comment: No: Do not add to previous drawPerformed By: #### 09641, 28379 #### [facility] [address] [place] [address], USALymphocytes/100 WBC (Bld)2.1 %Low20.0-45.0The [facility] CenterComment on above:Order Comment: No: Do not add to previous drawPerformed By: #### 23740, 78500 #### [facility] [address] [place] [address], USAMCH (RBC) [Entitic mass]31.7 evMnjdju25.0-33.0The [facility] CenterComment on above:Order Comment: No: Do not add to previous drawPerformed By: #### 57102, 59116 #### [facility] [address] [place] [address], [facility] PSYCHIATRIC CENTERMCHC (RBC) [Mass/Vol]33.8 g/uULgpcta61.0-35.0The [facility] CenterComment on above:Order Comment: No: Do not add to previous drawPerformed By: #### 97888, 35929 #### [facility] [address] [place] [address], [facility] PSYCHIATRIC CENTERMCV (RBC) [Entitic vol]93.5 vKKvajwp37.0-98.0The [facility] CenterComment on above:Order Comment: No: Do not add to previous drawPerformed By: #### 81474, 25756 #### [facility] [address] [place] [address], USAMonocytes (Bld) [#/Vol]0.6 10*3/uLNormal0.1-1.0The [facility] CenterComment on above:Order Comment: No: Do not add to previous drawPerformed By: #### 31202, 20070 #### [facility] [address] [place] [address], USAMONOS7.1 %Normal5.0-12.0The [facility] CenterComment on above:Order Comment: No: Do not add to previous drawPerformed By: #### 53408, 76096 #### [facility] [address] [place] [address], USANeutrophils/100 WBC (Bld)88.3 %High40.0-72.0The [facility] CenterComment on above:Order Comment: No: Do not add to previous drawPerformed By: #### 31918, 52530 #### [facility] [address] [place] [address], USANucleated RBC/100 WBC (Bld) [Ratio]0 %Normal0-0The [facility] CenterComment on above:Order Comment: No: Do not add to previous drawPerformed By: #### 16903, 66818 #### [facility] [address] [place] [address], USAPLAT [id number] 10*3/pGZhw836-062Zan [facility] CenterComment on above:Order Comment: No: Do not add to previous draw Performed By: #### 74938, 29105 #### [facility] [address] [place] [address], USARBC (Bld) [#/Vol]2.78 10*6/uLLow4.20-5.70The [facility] CenterComment on above:Order Comment: No: Do not add to previous drawPerformed By: #### 47371, 49991 #### [facility] [address] [place] [address], USAWBC (Bld) [#/Vol]8.62 10*3/uLNormal4.00-10.60The [facility] CenterComment on above:Order Comment: No: Do not add to previous drawPerformed By: #### 61344, 82153 #### [facility] [address] [place] [address], USAPOC GLUCOSE LABon 38-19-0304Plzpzws [Mass/Vol]281 mg/dLHigh 70-100The [facility] CenterComment on above:Performed By: #### 07302, 40228 #### [facility] [address] [place] [address], USAGlucose [Mass/Vol]305 mg/cENrjy86-553Wry [facility] CenterComment on above:Performed By: #### 45967, 26526 #### [facility] [address] [place] [address], USAGlucose [Mass/Vol]198 mg/uJPftc34-621Nhp [facility] CenterComment on above:Performed By: #### 58241, 66169 #### [facility] [address] [place] [address], USAGlucose [Mass/Vol]227 mg/xKHfnn18-242Lci [facility] CenterComment on above:Performed By: #### 36792, 09489 #### [facility] [address] [place] [address], USABASIC METABOLIC PANELon 42-94-2271Sqakzyd [Mass/Vol]8.3 mg/dLLow8.6-10.3The [facility] CenterComment on above:Order Comment: UnknownPerformed By: #### 91654, 48238 #### [facility] [address] [place] [address], USAChloride [Moles/Vol]105 mmol/ZDnlpla69-067Cny [facility] CenterComment on above:Order Comment: UnknownPerformed By: #### 81137, 74755 #### [facility] [address] [place] [address], USACO2 [Moles/Vol]24 mmol/JOnqovl51-38Tdo [facility] CenterComment on above:Order Comment: UnknownPerformed By: #### 48902, 01766 #### [facility] [address] [place] [address], USACreatinine [Mass/Vol]1.20 mg/dLNormal0.70-1.30The [facility] CenterComment on above:Order Comment: Unknown Performed By: #### 81560, 56154 #### [facility] [address] [place] [address], USAGFR/1.73 sq M predicted among blacks MDRD (S/P/Bld) [Vol rate/Area]mL/min/{1.73_m2}Normal>60The [facility] Comment on above:Order Comment: UnknownResult Comment: Calculation may not be valid for patients over 70 yearsPerformed By: #### 27717, 12838 #### [facility] [address] [place] [address], USAGFR/1.73 sq M predicted among non-blacks MDRD (S/P/Bld) [Vol rate/Area]60 ml/min/1.73sq mAbnormal>60The [facility] CenterComment on above:Order Comment: UnknownResult Comment: Calculation may not be valid for patients over 70 yearsPerformed By: #### 90604, 93287 #### [facility] [address] [place] [address], USAGlucose [Mass/Vol]181 mg/jKUprv73-842God [facility] CenterComment on above:Order Comment: UnknownPerformed By: #### 91100, 67466 #### [facility] [address] [place] [address], USAPotassium [Moles/Vol]3.7 mmol/LNormal3.5-5.1The [facility] CenterComment on above:Order Comment: UnknownPerformed By: #### 96909, 22800 #### [facility] [address] [place] [address], USASodium [Moles/Vol]133 mmol/RCzj269-177Ebo [facility] CenterComment on above:Order Comment: UnknownPerformed By: #### 53058, 91388 #### [facility] [address] [place] [address], USAUrea nitrogen [Mass/Vol]18 mg/dLNormal7-25The [facility] CenterComment on above:Order Comment: UnknownPerformed By: #### 75108, 71582 #### [facility] [address] [place] [address], USACBC COMPLETE BLOOD COUNTon 52-37-7546Wdfjhlihnja distribution width (RBC) [Ratio]12.7 %Dooxqy31.5-15.0The [facility] CenterComment on above:Order Comment: UnknownPerformed By: #### 91341, 11367 #### [facility] [address] [place] [address], USAHematocrit (Bld) [Volume fraction]28.6 %Low39.0-50.0The [facility] CenterComment on above:Order Comment: Unknown Performed By: #### 26559, 76991 #### [facility] [address] [place] [address], USAHemoglobin (Bld) [Mass/Vol]9.8 g/dLLow13.0-17.0The [facility] CenterComment on above:Order Comment: Unknown Performed By: #### 89813, 79233 #### [facility] [address] [place] [address], USAIMM PLATELET FRAC4.1 %Normal0.8-6.3The [facility] CenterComment on above:Order Comment: UnknownPerformed By: #### 67252, 91813 #### [facility] [address] [address], [facility]AT[facility] CENTERMCH (RBC) [Entitic mass]31.5 hsAdvyed79.0-33.0The [facility] CenterComment on above:Order Comment: Unknown Performed By: #### 59815, 88686 #### [facility] [address] [place] [address], [facility]AT[facility] CENTERMCHC (RBC) [Mass/Vol]34.3 g/zOGcfdfs60.0-35.0The [facility] CenterComment on above:Order Comment: UnknownPerformed By: #### 44264, 77701 #### [facility] [address] [place] [address], [facility]AT[facility] CENTERMCV (RBC) [Entitic vol]92.0 fNAthycf64.0-98.0The [facility] CenterComment on above:Order Comment: UnknownPerformed By: #### 43743, 67816 #### [facility] [address] [place] [address], USANucleated RBC/100 WBC (Bld) [Ratio]0 %Normal0-0The [facility] CenterComment on above:Order Comment: Unknown Performed By: #### 67545, 30468 #### [facility] [address] [place] [address], USAPLAT [id number] 10*3/dHLjj422-058Obl [facility] CenterComment on above:Order Comment: UnknownPerformed By: #### 07083, 50233 #### [facility] [address] [place] [address], USARBC (Bld) [#/Vol]3.11 10*6/uLLow4.20-5.70The [facility] CenterComment on above:Order Comment: UnknownPerformed By: #### 62882, 79016 #### [facility] [address] [place] [address], USAWBC (Bld) [#/Vol]6.45 10*3/uLNormal4.00-10.60The [facility] CenterComment on above:Order Comment: UnknownPerformed By: #### 05028, 98664 #### [facility] [address] [place] [address], USAMAGNESIUM BLOODon 60-19-0067Eicusfwpk [Mass/Vol]1.3 mg/dL Low1.9-2.7The [facility] CenterComment on above:Order Comment: UnknownPerformed By: #### 40976, 05914 #### [facility] [address] [place] [address], USAPHOSPHORUS BLOODon 71-67-4381Oeszxcxnk [Mass/Vol]3.4 mg/dL Normal2.5-5.0The [facility]als Geauga Medical CenterComment on above:Order Comment: UnknownPerformed By: #### [id number], [id number] #### [facility] [address] [place] [address], [place]AP[place] GLUCOSE LABon 63-76-2146Iwcaufd [Mass/Vol]253 mg/dLHigh 70-100The [facility] CenterComment on above:Performed By: #### 02252, 93827 #### [facility] [address] [place] [address], USAGlucose [Mass/Vol]272 mg/qEYbtv62-935Iiv [facility] CenterComment on above:Performed By: #### 17659, 03855 #### [facility] [address] [place] [address], USAGlucose [Mass/Vol]167 mg/bJArld67-476Ura [facility] CenterComment on above:Performed By: #### 04871, 10169 #### [facility] [address] [facility] [place] [address], USAGlucose [Mass/Vol]220 mg/jFWxss83-861Chn [facility] CenterComment on above:Performed By: #### 48461, 87687 #### [facility] [address] [facility] [place] [address], [facility] CH[facility]EN'S PSYCHIATRIC CENTERVITAMIN D 25-HYDROXYon 16-66-3291LAVITZN D 25-OH26.4 ng/mL Low30.0-80.0The [facility] CenterComment on above:Result Comment: >80.0 Toxicity possiblePerformed By: #### 72790, 56279 #### [facility] [address] [facility] [place] [address], [facility]EN[facility]S PSYCHIATRIC CENTERAPTTon 85-99-6744bXLA Coag (Bld) [Time]23.9 sLow25.0-35.0 The [facility] Ge[facility] CenterComment on above:Result Comment: ALL RESULTS MUST BE [...] BE USED FOR THIS PURPOSE.Performed By: #### 26508, 56605 #### [facility] [address] [facility] [place] [address], USABASIC METABOLIC PANELon 97-14-7006Fwhneij [Mass/Vol]8.7 mg/dLNormal8.6-10.3The [facility] CenterComment on above: Performed By: #### 55767 #### [facility] [address] [place] [address], USAChloride [Moles/Vol]103 mmol/NLyukef42-073Asq [facility] CenterComment on above:Performed By: #### 89509 #### [facility] [address] [place] [address], USACO2 [Moles/Vol]24 mmol/OCagnwa01-95Pyg [facility] CenterComment on above:Performed By: #### 79123 #### [facility] [address] [place] [address], USACreatinine [Mass/Vol]1.18 mg/dLNormal0.70-1.30The [facility] CenterComment on above:Performed By: #### 10340 #### [facility] [address] [place] [address], USAGFR/1.73 sq M predicted among blacks MDRD (S/P/Bld) [Vol rate/Area]mL/min/{1.73_m2}Normal>60The [facility] Comment on above:Result Comment: Calculation may not be valid for patients over 70 yearsPerformed By: #### 61841 #### [facility] [address] [place] [address], USAGFR/1.73 sq M predicted among non-blacks MDRD (S/P/Bld) [Vol rate/Area]mL/min/{1.73_m2}Normal>60The [facility] Comment on above:Result Comment: Calculation may not be valid for patients over 70 yearsPerformed By: #### 02598 #### [facility] [address] [place] [address], USAGlucose [Mass/Vol]165 mg/sFUgzw58-761Kwg [facility] CenterComment on above:Performed By: #### 95632 #### [facility] [address] [facility] [place] [address], USAPotassium [Moles/Vol]4.1 mmol/LNormal3.5-5.1The [facility] CenterComment on above:Performed By: #### 30712 #### [facility] [address] [facility] [place] [address], USASodium [Moles/Vol]132 mmol/ALwe794-389Clf [facility] CenterComment on above:Performed By: #### 26384 #### [facility] [address] [place] [address], USAUrea nitrogen [Mass/Vol]21 mg/dLNormal7-25The [facility] CenterComment on above:Performed By: #### 20324 #### [facility] [address] [facility] [place] [address], [facility] CH[facility]EN'S PSYCHIATRIC CENTERCBC W/DIFFon 65-22-0569XRN BASOPHILS0.0 10*3/uLNormal 0.0-0.2The [facility] CenterComment on above:Performed By: #### 71036 #### [facility] [address] [facility] [place] [address], USAABS IMM GRANS0.0 10*3/uLNormal0.0-0.2The [facility] CenterComment on above:Performed By: #### 76838 #### [facility] [address] [facility] [address], USAABS NEUTROPHILS9.8 10*3/uLHigh1.6-7.6The [facility] Medical CenterComment on above:Performed By: #### 32751 #### [facility] [address] [facility] [place] [address], [facility] PSYCHIATRIC CENTERBasophils/100 WBC (Bld)0.4 %Normal0.0-1.0The [facility] Medical CenterComment on above:Performed By: #### 55757 #### [facility] [address] [place] [address], USAEosinophils (Bld) [#/Vol]0.1 10*3/uLNormal0.0-0.5The [facility] CenterComment on above:Performed By: #### 53515 #### [facility] [address] [place] [address], USAEosinophils/100 WBC (Bld)0.5 %Normal0.0-6.0The [facility] Medical CenterComment on above:Performed By: #### 01822 #### [facility] [address] [place] [address], USAErythrocyte distribution width (RBC) [Ratio]12.2 %Normal 11.5-15.0The [facility] Medical CenterComment on above:Performed By: #### 90851 #### [facility] [address] [place] [address], USAHematocrit (Bld) [Volume fraction]34.8 %Low39.0-50.0The [facility] Medical CenterComment on above:Performed By: #### 07760 #### [facility] [address] [place] [address], USAHemoglobin (Bld) [Mass/Vol]12.1 g/dLLow13.0-17.0The [facility] Medical CenterComment on above:Performed By: #### 17969 #### [facility] [address] [facility] [address], USAIMMATURE GRANS0.4 %Normal0.0-1.0The [facility] Medical CenterComment on above:Performed By: #### 25497 #### [facility] [address] [place] [address], USALymphocytes (Bld) [#/Vol]0.6 10*3/uLLow1.2-4.0The [facility] Medical CenterComment on above:Performed By: #### 49165 #### [facility] [address] [place] [address], [facility]EN[facility]S PSYCHIATRIC CENTERLymphocytes/100 WBC (Bld)5.4 %Low20.0-45.0The [facility] Medical CenterComment on above:Performed By: #### 19505 #### [facility] [address] [place] [address], [facility]H (RBC) [Entitic mass]31.1 ypAymexv42.0-33.0The [facility] Medical CenterComment on above:Performed By: #### 92699 #### [facility] [address] [place] [address], [facility] PSYCHIATRIC CENTERMCHC (RBC) [Mass/Vol]34.8 g/qRUdygop23.0-35.0The [facility] CenterComment on above:Performed By: #### 28957 #### [facility] [address]. [place] [address], [facility] CH[facility]EN'S PSYCHIATRIC CENTERMCV (RBC) [Entitic vol]89.5 uUMixhji24.0-98.0The [facility] Medical CenterComment on above:Performed By: #### 32076 #### [facility] [address] [place] [address], USAMonocytes (Bld) [#/Vol]0.5 10*3/uLNormal0.1-1.0The [facility] CenterComment on above:Performed By: #### 20552 #### [facility] [address] [facility]. [place] [address], USAMONOS4.3 %Low5.0-12.0The [facility] Medical CenterComment on above:Performed By: #### 76622 #### [facility] [address] [place] [address], USANeutrophils/100 WBC (Bld)89.0 %High40.0-72.0The [facility] Medical CenterComment on above:Performed By: #### 75274 #### [facility] [address] [place] [address], USANucleated RBC/100 WBC (Bld) [Ratio]0 %Normal0-0The [facility] Medical CenterComment on above:Performed By: #### 91517 #### [facility] [address] [place] [address], USAPLAT UWR886 10*3/xLAfjevl591-477Uvs [facility] CenterComment on above:Performed By: #### 04394 #### [facility] [address] [place] [address], USARBC (Bld) [#/Vol]3.89 10*6/uLLow4.20-5.70The [facility] CenterComment on above:Performed By: #### 72730 #### [facility] [address] [place] [address], USAWBC (Bld) [#/Vol]11.04 10*3/uLHigh4.00-10.60The [facility] CenterComment on above:Performed By: #### 14625 #### [facility] [address] [place] [address], USAFEMUR RIGHT 2 [facility] [id number] RIGHT 2 SUniUniversity Hospitals Health System Department of Radiology [address] [place] [address] Patient Name: ZACH MANUEL : 1945 Sex: M Age: Race: White Pt. Location: [id number] Patient Status: I Ordered Date: 07/13/2018 7:00:00 [...] Documentation Electronically signed by:Soila Morris. Transcribed by: [email or web address], User Resident: Electronically Signed by: SOILA MORRIS @ 07/15/2018 12:16 [facility] HealthComment on above:Order Comment: RT FEMUR IM NAILFEMUR RIGHT 2 SUniUniversity Hospitals Health System Department of Radiology [address] [place] [address] Patient Name: ZACH MANUEL : 1945 Sex: M Age: Race: White Pt. Location: [facility] Patient Status: I Ordered Date: 07/12/2018 [...] findings. Electronically signed by:Zoran Cobb. Transcribed by: [email or web address], User Resident: RENAN SEWELL Electronically Signed by: ZORAN COBB @ 07/13/2018 06:51 PM I personally read this/these film(s) with this residentMercy Health Defiance HospitalComment on above:Order Comment: R/O FX, right kneeHistory and Physicalon 78-98-6951Tcszmwr and PhysicalMR#: [id number] [facility] Pt. Name: Zach Manuel Admitted: 07/13/2018 Date of : 1945 Attending Physician: Natalie Barajas M.D. Room #: [id number] Discharge Date: HISTORY AND PHYSICAL CHIEF COMPLAINT: Fall, right hip fracture. HISTORY OF PRESENT ILLNESS: The patient is a 73-year-old gentleman with past medical history of diabetes, multiple myeloma that was treated and now under surveillance, Paget's disease and ulcerative colitis, presented to the ER as a transfer from [facility] ER. Orthopedist service accepted the patient for treatment of right hip fracture. The patient reports that today approximately 6 hours prior to arrival to [facility] ER, he was accidentally hit by his [...] We will provide DVT and GI prophylaxis. Personal Counselor for possible rehab placement and PT and OT once the patient will have surgery. Electronically Signed by: Natalie Barajas M.D. 07/14/2018 12:41 A Natalie Barajas M.D. Date Dict: 07/13/2018/01:20 Ángela/Natalie Barajas M.D. Date Trans: 07/13/2018 06:08 Ángela/tata DN_JN:[id number] Health Defiance HospitalOperative Reporton [id number] ReportMR#: [id number] [facility] Pt. Name: Zach Manuel Room #: [id number] Discharge Date: Birthdate: 1945 OPERATIVE REPORT DATE OF SURGERY: 07/13/2018 SURGEON: Daniela Antony M.D. PROMPT CARE RN: Rob Gomez M.D. PREOPERATIVE DIAGNOSIS: Right subtrochanteric [...] The distal interlocking screws, we used perfect [place] technique. The guide pin was placed under [...] Gomez MD Date Trans: 07/13/2018 09:17 P/tata DN_JN:[id number] cc: Hanna Mathias M.D. [address] [address]JifjuaKynChildren's Hospital of Columbus GLUCOSE LABon [id number] [Mass/Vol]249 mg/pERezj03-299Hna [facility] CenterComment on above:Performed By: #### 43726 #### [facility] [address] [place] [address], USAGlucose [Mass/Vol]226 mg/wFBdbm02-981Sfe [facility] CenterComment on above:Performed By: #### 25670 #### [facility] [address] [place] [address], USAGlucose [Mass/Vol]144 mg/kXHkdj16-206Koe [facility] CenterComment on above:Performed By: #### 72000 #### [facility] [address] [facility] [address], USAGlucose [Mass/Vol]130 mg/zGFbwf49-457Pas [facility] CenterComment on above:Performed By: #### 75874 #### [facility] [address] [place] [address], USAPROTHROMBIN TIMEon 89-34-2103BTE Coag (PPP) [Relative time] 1.01 {INR}Normal0.91-1.16The [facility] Medical CenterComment on above:Result Comment: ACC RECOMMENDED INR FOR [...] OPTIMAL THERAPEUTIC RANGE. CHEST 1995;108:231S-246S.Performed By: #### 49177, 71966 #### [facility] [address] [place] [address], [facility] PSYCHIATRIC CENTERPT Coag (PPP) [Time]13.3 qGhrlwl14.3-14.8The [facility] Medical CenterComment on above:Result Comment: ALL RESULTS MUST BE INTERPRETED WITH RESPECT TO BLOOD DRAWING ARTIFACT OR DILUTION ERROR OF ANTICOAGULANT AT THE TIME OF SAMPLING.Performed By: #### 06605, 11645 #### [facility] [address] [place] [address], USATYPE AND SCREENon 19-15-2123KHX INTERPRETATIONONoOhioHealth Berger HospitalComment on above:Performed By: #### 38035 #### [facility] [address] [place] [address], USARH INTERPRETATIONPosCrystal Clinic Orthopedic CenterComment on above:Performed By: #### 83444 #### [facility] [address] [place] [address], [facility]S PSYCHIATRIC CENTERRB'S 2 UNITSon 51-81-7174OHFSOEUWKP INTERP 1CUniversity Hospitals Elyria Medical CenterComment on above:Performed By: #### 09352 #### [facility] [address] [place] [address], USACROSSMATCH INTERP 2CUniversity Hospitals Elyria Medical CenterComment on above:Performed By: #### 45457 #### [facility] [address] [place] [address], USAPRODUCT CODE [id number] Health Defiance HospitalComment on above:Performed By: #### 34435 #### [facility] [address] [place] [address], USAPRODUCT CODE [id number] Health Defiance HospitalComment on above:Performed By: #### 32643 #### [facility] [address] [place] [address], USAPRODUCT STATUS 1RKettering Health TroyComment on above:Result Comment: Result changed by IF on 07/16/2018 09:30. The previous value was XM.Performed By: #### 26419 #### [facility] [address] [place] [address], USAPRODUCT STATUS 2RKettering Health TroyComment on above:Result Comment: Result changed by IF on 07/16/2018 09:30. The previous value was XM.Performed By: #### 43372 #### [facility] [address] [place] [address], USAUNIT ABO 1[facility] Comment on above:Performed By: #### 92869 #### [facility] [address] [place] [address], USAUNIT ABO 2ONoOhioHealth Berger Hospital Comment on above:Performed By: #### 29687 #### [facility] [address] [place] [address], USAUNIT ID [id number] Health Defiance HospitalComment on above:Performed By: #### 79934 #### [facility] [address] [place] [address], USAUNIT ID [id number] Health Defiance HospitalComment on above:Performed By: #### 72576 #### [facility] [address] [place] [address], USAUNIT RH 1PosiRiverside Methodist HospitalComment on above:Performed By: #### 78088 #### [facility] [address] [address], USAUNIT RH 2PosiRiverside Methodist HospitalComment on above:Performed By: #### 68872 #### [facility] [address] [facility] [place], [place] [address] [place] [address] Vital Signs Date TimeVital SignValuePerforming KgvrdnppeGnshtnsb69-89-8585 11:04-0400Body ozxbjs996.3 cmUriel Gunter MD Work Phone[facility]05-27-2025 11:04-0400Body mass index (BMI) [Ratio]27.01 kg/q7KizmkUriel Gunter MD Work Phone: [facility]05-27-2025 11:04-0400Body temperature 97.2 [degF]Uriel Gunter MD Work Phone: [facility]05-27-2025 11:04-0400Body kg Uriel Gunter MD Work Phone: [facility]05-27-2025 11:04-0400Diastolic blood dswsmsyu63 mm[Hg]Uriel Gunter MD Work Phone: [facility]05-27-2025 11:04-0400Heart rate70 /min Uriel Gunter MD Work Phone: [facility]05-27-2025 11:04-0400Respiratory rate 16 /minUriel Gunter MD Work Phone: [facility]05-27-2025 11:04-4311NmZ4% (BldA) [Mass fraction]96 %Uriel Gunter MD Work Phone: [facility]05-27-2025 11:04-0400Systolic blood hytqajsn896 mm[Hg]Uriel Gunter MD Work Phone: [facility]01-16-2025 09:59-0500Body vqijlq199.[address]01-16-2025 09:59-0500Body mass index (BMI) [Ratio] 26.58 kg/m[address]01-16-2025 09:59-0500Body zixgms69.[address]09-03-2024 12:53-0400Body eyqsqo402.3 cmFormerly Oakwood Heritage Hospitaljessee Sulaiman PA-C Work Phone: [facility]09-03-2024 12:53-0400Body mass index (BMI) [Ratio]27.73 kg/o5Wabbd Sulaiman PA-C Work Phone: [facility]09-03-2024 12:53-0400Body temperature 97.9 [degF]Latrice Sulaiman PA-C Work Phone: [facility]09-03-2024 12:53-0400Body efjudb51.2 kgMindy Sulaiman PA-C Work Phone: [facility]09-03-2024 12:53-0400Diastolic blood nhbsltha24 mm[Hg]Latrice Sulaiman PA-C Work Phone: [facility]09-03-2024 12:53-0400Heart rate63 /min Latrice Sulaiman PA-C Work Phone: [facility]09-03-2024 12:53-0400Respiratory rate 16 /minLatrice Riveraer PA-C Work Phone: [facility]09-03-2024 12:53-2181KcK6% (BldA) [Mass fraction]98 %Latrice Hilario PA-C Work Phone: [facility]09-03-2024 12:53-0400Systolic blood aqjtspky115 mm[Hg]Latrice Hilario PA-C Work Phone: [facility]06-04-2024 12:53-0400Body ffwotp028.3 cmUriel Gunter MD Work Phone: [facility]06-04-2024 12:53-0400Body mass index (BMI) [Ratio]27.43 kg/v7MnwaeUriel Gunter MD Work Phone: [facility]06-04-2024 12:53-0400Body temperature 97.59 [degF]Uriel Gunter MD Work Phone: [facility]06-04-2024 12:53-0400Body trjceh62.3 kgUriel Gunter MD Work Phone: [facility]06-04-2024 12:53-0400Diastolic blood zfzgjmfi29 mm[Hg]Uriel Gunter MD Work Phone: [facility]06-04-2024 12:53-0400Heart rate59 /min Uriel Gunter MD Work Phone: [facility]06-04-2024 12:53-0400Respiratory rate 18 /minUriel Gunter MD Work Phone: [facility]06-04-2024 12:53-0909PgZ0% (BldA) [Mass fraction]97 %Uriel Gunter MD Work Phone: [facility]06-04-2024 12:53-0400Systolic blood ovbhwjww157 mm[Hg]Uriel Gunter MD Work Phone: [facility]03-05-2024 13:02-0500Body .[address] VETERINARY ANATOMIST.ROUSTABOUT SUPERVISOR Work Phone: [facility]03-05-2024 13:02-0500Body temperature 97.9 [degF][address]cca Lane VETERINARY ANATOMIST.ROUSTABOUT SUPERVISOR Work Phone: [facility]03-05-2024 13:02-0500Body bobykr63.[address] VETERINARY ANATOMIST.ROUSTABOUT SUPERVISOR Work Phone: [facility]03-05-2024 13:02-0500Diastolic blood etsptcet14 mm[Hg]Becca Lane VETERINARY ANATOMIST.ROUSTABOUT SUPERVISOR Work Phone: [facility]03-05-2024 13:02-0500Heart rate65 /min Becca [address] VETERINARY ANATOMIST.ROUSTABOUT SUPERVISOR Work Phone: [address] [place], [place] 5494903-05-2024 13:02-0500Respiratory rate 18 /minBecca Lane APRN.ROUSTABOUT SUPERVISOR Work Phone: [facility]03-05-2024 13:02-1613WmV1% (BldA) [Mass fraction]97 %Becca [address] VETERINARY ANATOMIST.ROUSTABOUT SUPERVISOR Work Phone: [facility]03-05-2024 13:02-0500Systolic blood typmqyrv353 mm[Hg]Becca Lane VETERINARY ANATOMIST.ROUSTABOUT SUPERVISOR Work Phone: [facility]12-05-2023 13:08-0500Body .3 Justin Gunter MD Work Phone: [facility]12-05-2023 13:08-0500Body temperature 97.2 [degF]Uriel Gunter MD Work Phone: [facility]12-05-2023 13:08-0500Body mchtge44.27 kgUriel Gunter MD Work Phone: [facility]12-05-2023 13:08-0500Diastolic blood ijteohio48 mm[Hg]Uriel Gunter MD Work Phone: 1([phone]12-05-2023 13:08-0500Heart rate62 /min Uriel Gunter MD Work Phone: [facility]12-05-2023 13:08-0500Respiratory rate 20 /minUriel Gunter MD Work Phone: [facility]12-05-2023 13:08-7318HfU4% (BldA) [Mass fraction]98 %Uriel Gunter MD Work Phone: [facility]12-05-2023 13:08-0500Systolic blood uhcjvqbc925 mm[Hg]Uriel Gunter MD Work Phone: [facility]09-05-2023 12:40-0400Body .3 cmUriel Gunter MD Work Phone: [facility]09-05-2023 12:40-0400Body temperature 97.2 [degF]Uriel Gunter MD Work Phone: [facility]09-05-2023 12:40-0400Body wnbyzs70.45 kgUriel Gunter MD Work Phone: [facility]09-05-2023 12:40-0400Diastolic blood ekjijpju81 mm[Hg]Uriel Gunter MD Work Phone: [facility]09-05-2023 12:40-0400Heart rate56 /min Uriel Gunter MD Work Phone: [facility]09-05-2023 12:40-0400Respiratory rate 16 /minUriel Gunter MD Work Phone: [facility]09-05-2023 12:40-7164WkC4% (BldA) [Mass fraction]98 %Uriel Gunter MD Work Phone: [facility]09-05-2023 12:40-0400Systolic blood iqcgpmao850 mm[Hg]Uriel Gunter MD Work Phone: [facility]03-14-2023 13:00-0400Body lpwsvo032.3 cmUriel Gunter MD Work Phone: [facility]03-14-2023 13:00-0400Body temperature 97.11 [degF]Uriel Gunter MD Work Phone: [facility]03-14-2023 13:00-0400Body oxeqls88.55 kgUriel Gunter MD Work Phone: [facility]03-14-2023 13:00-0400Diastolic blood ykfxveai83 mm[Hg]Uriel Gunter MD Work Phone: [facility]03-14-2023 13:00-0400Heart rate60 /min Uriel Gunter MD Work Phone: [place] [address]-14-2023 13:00-0400Respiratory rate 18 /minUriel Gunter MD Work Phone: [facility]03-14-2023 13:00-9732JiU2% (BldA) [Mass fraction]97 %Uriel Gunter MD Work Phone: [facility]03-14-2023 13:00-0400Systolic blood mm[Hg]Uriel Gnuter MD Work Phone: [facility]12-20-2022 15:00-0500Body xrxulk082.3 Justin Gunter MD Work Phone: [facility]12-20-2022 15:00-0500Body temperature 97.59 [degF]Uriel Gunter MD Work Phone: [facility]12-20-2022 15:00-0500Body .82 kgUriel Gunter MD Work Phone: [facility]12-20-2022 15:00-0500Diastolic blood bmpcwyhe42 mm[Hg]Uriel Gunter MD Work Phone: [facility]12-20-2022 15:00-0500Heart rate67 /min Uriel Gunter MD Work Phone: [facility]12-20-2022 15:00-0500Respiratory rate 18 /minUriel Gunter MD Work Phone: [facility]12-20-2022 15:00-1373FvU2% (BldA) [Mass fraction]97 %Uriel Gunter MD Work Phone: [facility]12-20-2022 15:00-0500Systolic blood qkcmdhhe464 mm[Hg]Uriel Gunter MD Work Phone: [facility]09-27-2022 12:37-0400Body opdokr461.[address] VETERINARY [employer]AT[employer]IST.[employer]OUT SUPERVISOR Work Phone: [facility]09-27-2022 12:37-0400Body temperature 97.11 [degF]Becca Lane VETERINARY ANATOMIST.[employer]OUST[employer]OUT SUPERVISOR Work Phone: [facility]09-27-2022 12:37-0400Body arjmay46.[address] VETERINARY ANATOMIST.[employer]OUST[employer]OUT SUPERVISOR Work Phone: [facility]09-27-2022 12:37-0400Diastolic blood vgyxkpxn93 mm[Hg]Becca Lane VETERINARY ANATOMIST.ROUST[employer]OUT SUPERVISOR Work Phone: [facility]09-27-2022 12:37-0400Heart rate79 /min Becca Lane VETERINARY ANATOMIST.ROUST[employer]OUT SUPERVISOR Work Phone: [facility]09-27-2022 12:37-0400Respiratory rate 16 /minBecca Lane VETERINARY ANATOMIST.ROUSTABOUT SUPERVISOR Work Phone: [facility]09[facility]27[facility]2022 12:37-7755CiH7% (BldA) [Mass fraction]97 %Becca Lane VETERINARY ANATOMIST.ROUSTABOUT SUPERVISOR Work Phone: [facility]09-27-2022 12:37-0400Systolic blood kgnsbpry253 mm[Hg]Becca Lane VETERINARY ANATOMIST.ROUSTABOUT SUPERVISOR Work Phone: [facility]06-28-2022 12:49-0400Body yxphxb057.3 Justin Gunter MD Work Phone: [facility]06-28-2022 12:49-0400Body temperature 97 [degF]Uriel Gunter MD Work Phone: [facility]06-28-2022 12:49-0400Body qrymwx57.81 kgUriel Gunter MD Work Phone: [facility]06-28-2022 12:49-0400Diastolic blood rwlbcqiy94 mm[Hg]Uriel Gunter MD Work Phone: [facility]06-28-2022 12:49-0400Heart rate65 /min Uriel Gunter MD Work Phone: [facility]06-28-2022 12:49-0400Respiratory rate 16 /minUriel Gunter MD Work Phone: [facility]06-28-2022 12:49-9507FmL4% (BldA) [Mass fraction]100 %Uriel Gunter MD Work Phone: [facility]06-28-2022 12:49-0400Systolic blood konzcqjd390 mm[Hg]Uriel Gunter MD Work Phone: [facility]05-03-2022 12:42-0400Body oewvtm829.3 cmUriel Gunter MD Work Phone: [facility]05-03-2022 12:42-0400Body temperature 98.01 [degF]Uriel Gunter MD Work Phone: [facility]05-03-2022 12:42-0400Body .91 Colton Gunter MD Work Phone: [facility]05-03-2022 12:42-0400Diastolic blood ryrottho75 mm[Hg]Uriel Gunter MD Work Phone: [facility]05-03-2022 12:42-0400Heart rate64 /min Uriel Gunter MD Work Phone: [facility]05-03-2022 12:42-0400Respiratory rate 18 /minUriel Gunter MD Work Phone: [facility]05-03-2022 12:42-8271VxP5% (BldA) [Mass fraction]98 %Uriel Gunter MD Work Phone: [facility]05-03-2022 12:42-0400Systolic blood moocvvlq771 mm[Hg]Uriel Gunter MD Work Phone: [facility] Encounters Encounter DateEncounter TypeCare ProviderFacilityStart: 95-48-8967eqbrkahezw Manny R NILLFacility:[facility] PulaskievueStart: 00-77-0029vkruevtxqvZsouzuh NILL Facility: [place]Start: 02-27-2025 End: 96-12-6111BuliesWcmwn R Murphy MD Work Phone: [facility] PharmacyComment on above: Refill RequestStart: 02-19-2025 End: 85-33-9584Qkafws-up encounterUriel Gunter MD Work Phone: Hematology/OncologyComment on above:ResultsStart: 02-17-2025 End: 68-20-8012Sbkrbvd encounter procedureUriel Gunter MD Work Phone: Hematology/OncologyStart: 02-17-2025 End: 30-29-8321rughjrehsrKrwuv [address] [place] Work Phone: Hematology/OncologyComment on above:Multiple myeloma not having achieved remission (HCC) (Primary Dx); Paget disease of boneMultiple myeloma not having achieved remission (HCC) (Primary Dx); Paget disease of bone; H/O ulcerative colitis; Stage 3b chronic kidney disease (HCC)Start: 12-11-2024 End: 10-65-7393MepcrmOqydaoi [facility] Work Phone: [facility] PharmacyComment on above: Refill RequestStart: 11-20-2024 End: 37-15-7909Xszpqsqaoq and management of inpatientDAVID Jessica ZARATEWright-Patterson Medical Centertart: 11-20-2024 End: 60-55-6779Qduznnvlfe and management of inpatientSUSAN Rachel STAPLETONWright-Patterson Medical Centertart: 11-19-2024 End: 76-11-2014xeqbhabhhpRfv Pat Phone Call Provider [address] [place] [address] - Pre AdmitStart: 11-19-2024 End: 80-62-0194emwnroodrcPWXXR E SMITHWright-Patterson Medical Centertart: 11-17-2024 End: 36-40-2074GnwogfNdfai R Murphy MD Work Phone: [facility] PharmacyComment on above: Refill RequestStart: 10-30-2024 End: 02-82-5486Lbrrkeyixj and management of inpatientCYLE [facility] Hospitaltart: 10-30-2024 End: 05-66-6526Qiviwlewoy and management of inpatientSUSAN Rachel [facility]: 10-10-2024 End: 15-46-3408CruxtvDvywmhm [facility] Work Phone: [facility] PharmacyComment on above: Refill RequestStart: 10-09-2024 End: 32-02-9128sbasboarjgVOONS M SOMMERSWright-Patterson Medical Centertart: 62-14-2825Shlnaeoix for other preprocedural examinationDOUGLAS [facility] Daytontart: 10-09-2024 End: 24-68-7479Xigphmj encounter procedurePm Pre-Admission Testing [address] [place] [address] - Pre AdmitComment on above:Preop examination (Primary Dx)Start: 10-09-2024 End: 50-82-6829Jfnvluovtzcod examination donePm[address] SystemStart: 09-11-2024 End: 01-67-9376NjjxsfMuovsAnusha Gunter MD Work Phone: [facility] PharmacyComment on above: Refill RequestStart: 08-11-2024 End: 92-62-2446XulmkfFckwpAnusha Gunter MD Work Phone: [facility] PharmacyComment on above: Refill RequestStart: 07-25-2024 End: 35-95-3520zzszoyyypiRfznmwwMiki Woodson RPh Work Phone: [facility] HB-3Start: 07-25-2024 End: 04-26-6224C-mail encounter from Paulette YoungerNamkristi [facility] Work Phone: [facility] HB-3Start: 06-30-2024 End: 22-37-3099VopurjVtyysAnusha Gunter MD Work Phone: [facility] PharmacyComment on above: Refill RequestStart: 06-04-2024 End: 05-08-3317QypafbXnwqv R Murphy MD Work Phone: [facility] PharmacyComment on above: Refill RequestStart: 05-29-2024 End: 29-79-0608Sauzttweb encounterResaad Ferguson RN Work Phone: Hematology/OncologyComment on above:Care Coordination (Lab Results)Start: 05-27-2024 End: 92-04-8419Fcojmqqfc encounterMinjessee Hilario PA-C Work Phone: Hematology/OncologyComment on above:ResultsStart: 05-27-2024 End: 31-67-0011Zuknuz outpatient visit 15 minutesLatrice Hilario PA-C Work Phone: Hematology/OncologyComment on above:Multiple myeloma not having achieved remission (HCC) (Primary Dx); Type 2 diabetes mellitus without complication, with long-term current use of insulin (HCC)Start: 05-27-2024 End: 26-25-0233wbzxtnehzjSGFENTB M HOYFacility:[facility] HospitalStart: 05-20-2024 End: 11-13-0885Zqnvpqepd encounterLatrice Hilario PA-C Work Phone: Hematology/OncologyComment on above:Lab OrdersStart: 98-01-1809QdrvlqKarbbnv [facility] Work Phone: [facility] HB-3Comment on above:Refill Request Start: 26-06-2728EtdsgrJyddlAnusha Gunter MD Work Phone: [facility] PharmacyComment on above: Refill RequestStart: 01-47-5213BquejwVsbweAnusha Gunter MD Work Phone: [facility] PharmacyComment on above: Refill RequestStart: 21-30-4947Ktnkslmcq encounterResaad Ferguson RN Work Phone: Hematology/OncologyComment on above:Care Coordination (Labs)Start: 02-26-2024 End: 15-23-1900Yvajmxi encounter David Gunter MD Work Phone: Hematology/OncologyStart: 02-26-2024 End: 00-17-9730kdugaudrseBwdwx [address] [place] Work Phone: Hematology/OncologyComment on above:Multiple [...] CKD (HCC); Elevated prostate specific antigen (PSA)Start: 38-35-4114EdbhnhFkbhodt [facility] Work Phone: [facility] PharmacyComment on above: Refill Request (revlimid)Start: 80-88-2685QiodnsFdokhcl [facility] Work Phone: [facility] PharmacyComment on above: Refill RequestStart: 07-73-2696JnjeqnNdxlyAnusha Gunter MD Work Phone: [facility] Pharm ServicesComment on above:Refill Request Start: 92-45-3055XiljjlFmzjvcn [facility] Work Phone: [facility] PharmacyComment on above: Refill RequestStart: 11-27-2023 End: 77-94-9453siplppcbqgYkuwg Martinez APRN.ROUSTABOUT SUPERVISOR Work Phone: Hematology/OncologyComment on above:Multiple myeloma not having achieved remission (HCC) (Primary Dx); Paget disease of bone; Type 2 diabetes mellitus without complication, with long-term current use of insulin (HCC); H/O ulcerative colitis; Elevated prostate specific antigen (PSA); Stage 3b chronic kidney disease (HCC)Start: 11-27-2023 End: 50-23-8027Mddytjb encounter Mallory Lane APRN.ROUSTABOUT SUPERVISOR Work Phone: [place]Start: 81-59-2054Gmpfhcerv encounterUriel Gunter MD Work Phone: Hematology/OncologyComment on above:Lab OrdersStart: 42-30-8407XslrfvHesvkRocky Hatfield MD Work Phone: [facility] Pharm ServicesComment on above:Refill Request Start: 08-28-2023 End: 78-62-6049yfplijpmrcJyozg [address] [place] Work Phone: Hematology/OncologyComment on above:Multiple myeloma, remission status unspecified (HCC) (Primary Dx)Multiple myeloma not having achieved remission (HCC) (Primary Dx); Paget disease of bone; Stage 3b chronic kidney disease (HCC); Type 2 diabetes mellitus without complication, with long-term current use of insulin (HCC); H/O ulcerative colitis; Elevated prostate specific antigen (PSA)Start: 08-28-2023 End: 14-83-1525Bpvwjic encounter David Gunter MD Work Phone: [place]KYStart: 63-32-6215XbgcbsIggch R Murphy MD Work Phone: [facility] Pharm ServicesComment on above:Refill Request Start: 96-50-0517JnuryrRilpjgq [facility] Work Phone: [facility] PharmacyComment on above: Refill RequestStart: 53-01-9139Jjvswclmp encounterBozena Roland RN Hematology/OncologyComment on above:ResultsStart: 05-29-2023 End: 13-86-3922qritekahkxNzaxz R Murphy MD Work Phone: Hematology/OncologyComment on above:Multiple myeloma not having achieved remission (HCC) (Primary Dx); Stage 3b chronic kidney disease (HCC); Type 2 diabetes mellitus without complication, with long-term current use of insulin (HCC); Paget disease of bone; H/O ulcerative colitisStart: 05-29-2023 End: 20-79-2021Aqpcmqa encounter David Gunter MD Work Phone: SANDUSKYStart: 49-90-0776NqwafjVihzs Karamlou MD Work Phone: [facility] Pharm ServicesComment on above:Refill Request Start: 01-21-4483Xufupecbd Rashmi Gunter MD Work Phone: Hematology/OncologyComment on above:Lab OrdersStart: 98-93-3404XsysqnVvtmerj [facility] Work Phone: [facility] HB-3Comment on above:Refill Request Start: 66-03-6362PfaavcHfhldft [facility] Work Phone: [facility] PharmacyComment on above: Refill RequestStart: 42-45-3516SxfujqYbrejqc [facility] Work Phone: [facility] PharmacyComment on above: Refill RequestStart: 12-05-2022 End: 42-44-8510ufxvsmcmubFsgbh [address] [place] Work Phone: Hematology/OncologyComment on above:Multiple myeloma, remission status unspecified (HCC) (Primary Dx)Multiple myeloma not having achieved remission (HCC) (Primary Dx); Paget disease of bone; Type 2 diabetes mellitus without complication, with long-term current use of insulin (HCC); Elevated prostate specific antigen (PSA)Start: 12-05-2022 End: 20-23-8679Mmgkquf encounter David Gunter MD Work Phone: SANDUSKYStart: 87-10-2556Voemwhjwg encounterUriel Gunter MD Work Phone: Hematology/OncologyComment on above:Lab OrdersStart: 50-39-9795YjwqbnUdiyjpq [facility] Work Phone: [facility] -3Comment on above:Refill Request Start: 03-17-0543SbjtmaVpwbrxe [facility] Work Phone: [facility] PharmacyComment on above: Refill RequestStart: 55-71-2352XgfsqyYwjqzrh [facility] Work Phone: Hematology/OncologyComment on above:Refill Request Start: 09-12-2022 End: 37-75-5810zgowwyrcbrYrnxr R Murphy MD Work Phone: Hematology/OncologyComment on above:Multiple myeloma not having achieved remission (HCC) (Primary Dx); Paget disease of bone; Type 2 diabetes mellitus without complication, with long-term current use of insulin (HCC); Elevated prostate specific antigen (PSA); H/O ulcerative colitisStart: 09-12-2022 End: 59-86-8639Lgugxlo encounter procedureUriel Gunter MD Work Phone: S[place]USKYStart: 08-28-2022 End: 92-14-8091rpzwupgvstIJ HANNA BRANHAMYFacility:H9Pbggo: 49-95-0009MucinnSfimmsu [facility] Work Phone: Hematology/OncologyComment on above:Refill Request Start: 74-31-1521Diteghkpk encounterRebecca SesslerHematology/OncologyComment on above:Care Coordination (Calcium)Start: 06-20-2022 End: 85-36-0401tedlgqltvrEqlyi [address] [place] Work Phone: Hematology/OncologyComment on above:Multiple myeloma, remission status unspecified (HCC) (Primary Dx)Multiple myeloma not having achieved remission (HCC) (Primary Dx); Paget disease of bone; Type 2 diabetes mellitus without complication, with long-term current use of insulin (HCC); Elevated prostate specific antigen (PSA)Start: 06-20-2022 End: 42-95-5425Gacujpo encounter Mallory Lane APRN.CNP Work Phone: SANDUSKYStart: 41-82-7022KvkfajSsgiluu [facility] Work Phone: [facility] Pharm ServicesComment on above:Refill Request Start: 04-53-4107Hyvxirjih encounterUriel Gunter MD Work Phone: Hematology/OncologyComment on above:Lab OrdersStart: 77-13-1886AreyhaSmstdea [facility] Work Phone: Hematology/OncologyComment on above:Refill Request Start: 32-20-1556YpycaqHqphq [facility] Work Phone: [facility] HB-3Comment on above:Refill Request Start: 91-59-1008GhjpdrSyink Antoine [facility] Work Phone: [facility] HB-3Comment on above:Refill Request (lenalidomide)Marble Setter - Other ([facility] bnejamin obtained)Start: 31-52-5052Edmribnkd encounterFunmilayo Arriola RNHematology/OncologyComment on above:ResultsStart: 03-24-2022 End: 54-25-5426cusgxffjdjRE DOUGLAS HOYFacility:J1Thctw: 03-21-2022 End: 10-66-1558lohkvjitzrKakfh R Murphy MD Work Phone: Hematology/OncologyComment on above:Multiple myeloma not having achieved remission (HCC) (Primary Dx); Paget disease of bone; Type 2 diabetes mellitus without complication, with long-term current use of insulin (HCC); H/O ulcerative colitis; Elevated prostate specific antigen (PSA)Start: 03-21-2022 End: 00-06-9117Mwvnndj encounter David Gunter MD Work Phone: SANDUSKYStart: 03-15-2022 End: 49-18-2372xsybxidmicQPPhilip Jamisonity:F2Wjxaj: 03-14-2022 End: 01-34-1771cpzdwxolvgUF HANNA HOYFacility:Y6Yersx: 09-68-8416KeftagPsamvgg [facility] Work Phone: Hematology/OncologyComment on above:Refill Request Start: 70-86-3407YmomqgNysrp Schmitt [facility] Work Phone: [facility] HB-3Comment on above:Refill Request Start: 01-24-2022 End: 83-14-5326ggkoaudzpmRttfa R Murphy MD Work Phone: Hematology/OncologyComment on above:Multiple myeloma not having achieved remission (HCC) (Primary Dx); Paget disease of bone; Type 2 diabetes mellitus without complication, with long-term current use of insulin (HCC); H/O ulcerative colitisStart: 01-24-2022 End: 08-50-4586Weryrhu encounter procedureUriel Gunter MD Work Phone: SANDUSKYStart: 32-57-6312KlliodIqtspdy [facility] Work Phone: [facility] Pharm ServicesComment on above:Refill Request Start: 12-20-2021 End: 21-68-4215bafdqrsvzaDN ROXANA WATERSFacility:Q4Mbhnw: 11-10-2021 End: 63-61-9348xsbbyuterwTB ROXANA WATERSFacility:V7Npbkc: 09-12-2021 End: 28-28-1165bnqmnsrzstQH HANNA HOYFacility:B0Oxjrq: 09-10-2021 End: 98-87-5080cqaacmylsxKX HANNA HOYFacility:N8Mvxbs: 07-13-2018 End: 37-39-3160Fwoeutyqrp and management of inpatientDOUGLAS HOYFacility:[facility] Procedures DateProcedureProcedure DetailPerforming ClinicianStart: 46-76-0750Gssex depression screening assessmentUriel Gunter MD Work Phone: Start: 06-75-3427TMX screeningDR HANNA HOYComment on above:Performed By: #### PSASC #### [facility] [address] [address] [address] Tigre Maldonado: 21-03-8735MTN screeningDR HANNA HOYComment on above: Performed By: #### PSAD #### [facility] [address] [address] [address] Tigre Villaltaart: 50-79-5951Rzzoz depression screening assessmentBridget Wendi [facility] Work Phone: Start: 45-50-6304URAZAPVHFT R UP FEMUR WITH INTRAMED FIX, PERC APPROACHNABIL EBRAHEIMStart: 17-21-4488OVQYPKBDZHGR OF SERUM/TOX/VACCINE INTO MUSCLE, PERC APPROACHYASIR AL-ABBOODIStart: 07-13-2018 Antibody screenDOUGLAS HOYComment on above:Performed By: #### [id number] #### [address] Plan of Treatment DateCare ActivityDetailAuthorStart: 18-10-2290Sxesfutj blood count Hemoglobin/HematocritGales Ferry ClinicStart: 15-68-1227Wzvpxbnonf measurement Serum CreatinineCleCleveland Clinic Foundationtart: 55-28-1642Dgddmqi ScreeningTobacco ScreeningProTogus Va Medical Centerca [facility] System SystemStart: 18-42-8534Zynvfmn ScreeningTobacco ScreeningProTogus Va Medical Centerca [facility] SystemStart: 08-18-2025 End: 64-56-8024Rkfvpg-up encounterHematology/OncologyComment on above:6 month follow up with labStart: 08-18-2025 End: 88-15-6579Gkhibcv encounter nfpupvyxs22/25/2025 10:15 AM EST Office Visit [facility] [address] [place] [address] [place] [address] 6 month follow up with labNortStraith Hospital for Special Surgery LaboratoryComment on above:6 month follow up with labStart: 88-65-3744Kedyvkih blood countHemoglobin/HematocritGales Ferry ClinicStart: 91-90-5176Fhdaozmjhb measurementSerum CreatinineClepromedica bay park hospital ClinicStart: 30-74-9481Vbzhuckji vaccinationInfluenza Vaccine (Season Ended)[facility]: 02-25-2025 Complete blood countHemoglobin/HematocritOhioHealth Riverside Methodist Hospitaltart: 02-25-2025 Creatinine measurementSerum CreatinineOhioHealth Riverside Methodist Hospitaltart: 02-17-2025 End: 25-82-4362UHNNKWXTJP PROTEIN, SERUM (BLOOD)[facility]Comment [facility] above:Expected: 02/17/2025, Expires: 05/19/2025Start: 02-17-2025 End: 06-35-0106RROC ELECT SERUM WITH TOÑITO AND INTERParkview Health [facility] Work Phone: Comment on above:Expected: 02/17/2025, Expires: 05/19/2025Start: 12-87-0981Hanov-19 Vaccine (10 - Mixed Product risk season)Covid-19 Vaccine (10 - Mixed Product risk season)[facility] Start: 59-40-8345Pemoaqze blood countHemoglobin/HematocritOhioHealth Riverside Methodist Hospitaltart: 04-51-6118Xlvfggnidc measurementSerum CreatinineOhioHealth Riverside Methodist Hospitaltart: 11-20-2024 End: 26-51-6533Qvqlybhsn to same day surgery pdljvk4411/20/2024 9:45 AM EST - 11/20/2024 10:30 AM EST Surgery [facility] [address] [place] [address] Bernardo Stapleton MD [address] [place] [address] EXTRACTION CATARACT INTRAOCULAR LENS [52287 (CPT )][facility] SurgeryComment on above:EXTRACTION CATARACT INTRAOCULAR LENS [82444 (CPT )] Start: 23-67-0215Xgqsllxwhz hospital visit by dnmuuillz21/27/2025 9:45 AM EST Hospital Encounter [facility] [address] [place] [address] Bernardo Stapleton MD [address] [place] [address] [facility] - SurgeryStart: 11-20-2024 End: 36-82-2233Bwlrdd ctrc rmvl insj io lens prosth w/o ecpFREMONT SURGERYStart: 11-19-2024 End: 41-33-0304gjppgwtrdu42/26/2025 3:50 PM EST Support Visit [facility] Admit [address] [place] [address] [facility] AdmitStart: 10-30-2024 End: 71-14-0118Mnohtrray to same day surgery uhuedn6210/30/2024 9:45 AM EST - 10/30/2024 10:30 AM EST Surgery [facility] [address] [place] [address] Bernardo Stapleton MD [address] [place] [address] EXTRACTION CATARACT INTRAOCULAR LENS [08239 (CPT )][facility] SurgeryComment on above:EXTRACTION CATARACT INTRAOCULAR LENS [50408 (CPT )] Start: 92-83-7823Ogetjxudiy hospital visit by hmvczlizh27/06/2025 9:45 AM EST Hospital Encounter [facility] [address] [place] [address] Bernardo Stapleton MD [address] [place] [id number] [facility] SurgeryStart: 10-30-2024 End: 35-02-5289Jybxaq ctrc rmvl insj io lens prosth w/o ecpEXTRACTION CATARACT INTRAOCULAR LENS cataract right eye 10/30/2024 9:45 AM ESTFREMONT SURGERYStart: 41-24-1196Vtfccbe Directive DiscussionAdvance Directive DiscussionOhioHealth Riverside Methodist Hospitaltart: 57-79-9100Tfbezdsr blood countHemoglobin/HematocritCity Hospital Start: 08-74-6093Hivfshcelq measurementSerum CreatinineOhioHealth Riverside Methodist Hospitaltart: 03-46-5679Zlvkvpugbp/HematocritHemoglobin/HematocritOhioHealth Riverside Methodist Hospitaltart: 82-43-9446Ymptr CreatinineSerum CreatinineOhioHealth Riverside Methodist Hospitaltart: 08-26-2024 End: 95-04-8298NXZ W Auto Differential panel - BloodCOMPLETE BLOOD COUNT AND DIFFERENTIAL Lab Routine Multiple myeloma not having achieved remission (HCC) Expected: 08/26/2024 (Approximate), Expires: 11/25/2024leveland ClinicComment on above:Expected: 08/26/2024 (Approximate), Expires: 11/25/2024Start: 08-26-2024 End: 15-88-7580Qbgvnxlyeeruh metabolic 2000 panel - Serum or PlasmaCOMPREHENSIVE METABOLIC PANEL Lab Routine Multiple myeloma not having achieved remission (HCC) Expected: 08/26/2024 (Approximate), Expires: 11/25/2024[facility] Work Phone: Comment on above:Expected: 08/26/2024 (Approximate), Expires: 11/25/2024Start: 08-26-2024 End: 20-60-5614FFHEN/DANIELS,FREE,SERKAPPA/DANIELS,FREE,SER Lab Routine Multiple myeloma not having achieved remission (HCC) Expected: 08/26/2024 (Approximate), Expires: 11/25/2024leveland ClinicComment on above:Expected: 08/26/2024 (Approximate), Expires: 11/25/2024Start: 08-26-2024 End: 40-14-5538DIKEGPRYUH PROTEIN, SERUM (BLOOD)MONOCLONAL PROTEIN, SERUM (BLOOD) Lab Routine Multiple myeloma not having achieved remission (HCC) E xpected: 08/26/2024 (Approximate), Expires: 11/25/2024leveland ClinicComment on above:Expected: 08/26/2024 (Approximate), Expires: 11/25/2024Start: 08-26-2024 End: 52-95-3659XRIEWBD ELECTROPHORESIS SERUM W/INTERPPROTEIN ELECTROPHORESIS SERUM W/INTERP Lab Routine Multiple myeloma not having achieved remission (HCC) Expected: 08/26/2024 (Approximate), Expires: 03/04/2025C[facility] ClinicComment on above:Expected: 08/26/2024 (Approximate), Expires: 11/25/2024Start: 08-26-2024 End: 67-63-3741Gltljb-up encounterHematology/OncologyComment on above:3 month follow up with lab and arediaStart: 08-26-2024 End: 73-40-2039Thiqniw encounter procedureNortStraith Hospital for Special Surgery LaboratoryComment on above:3 month follow up with lab and arediaStart: 72-55-8741SOODMPUSWH/HEMATOCRITHEMOGLOBIN/HEMATOCRITCleCleveland Clinic Foundationtart: 67-35-3140XUALF CREATININESERUM CREATININEOhioHealth Riverside Methodist Hospitaltart: 05-27-2024 End: 23-24-6400Zlvnfa-up encounterHematology/OncologyComment on above:3 month follow up with lab and arediaStart: 05-27-2024 End: 45-35-6858Giwmegb encounter vefgmbfhb98/03/2024 12:45 PM EDT Office Visit [facility] [address] [place] [address] [place] [address] 3 month follow up with lab and arediaNoHighland Hospital LaboratoryComment on above:3 month follow up with lab and aredia Start: 85-00-9245Dxaap-19 Vaccine ( season)Covid-19 Vaccine ( season)[facility] Hospitaltart: 14-13-9571Urryw-19 Vaccine ( season)Covid-19 Vaccine ( season)[facility] Hospitaltart: 05-25-2024 Influenza vaccinationOhioHealth Riverside Methodist Hospitaltart: 05-20-2024 End: 62-91-0649NXV W Auto Differential panel - BloodCOMPLETE BLOOD COUNT AND DIFFERENTIAL Lab Routine Multiple myeloma not having achieved remission (HCC) Expected: 05/20/2024, Expires: 08/19/2024leveland ClinicComment on above: Expected: 05/20/2024, Expires: 08/19/2024Start: 05-20-2024 End: 15-43-3103Fgueremhdwvqt metabolic 2000 panel - Serum or PlasmaCOMPREHENSIVE METABOLIC PANEL Lab Routine Multiple myeloma not having achieved remission (HCC) Expected: 05/20/2024, Expires: 08/19/2024[place] Work Phone: Comment on above:Expected: 05/20/2024, Expires: 08/19/2024Start: 05-20-2024 End: 83-58-8593ASCDZQUMQB PROTEIN, SERUM (BLOOD)MONOCLONAL PROTEIN, SERUM (BLOOD) Lab Routine Multiple myeloma not having achieved remission (HCC) E xpected: 05/20/2024, Expires: 08/19/2024levelcritical access hospital ClinicComment on above: Expected: 05/20/2024, Expires: 08/19/2024Start: 05-20-2024 End: 81-35-8320YKOFZRT ELECTROPHORESIS SERUM W/INTERPPROTEIN ELECTROPHORESIS SERUM W/INTERP Lab Routine Multiple myeloma not having achieved remission (HCC) Expected: 05/20/2024, Expires: 08/19/2024[facility] ClinicComment on above: Expected: 05/20/2024, Expires: 08/19/2024Start: 76-92-6620ILONRBQVWL/HEMATOCRIT HEMOGLOBIN/HEMATOCRITOhioHealth Riverside Methodist Hospitaltart: 87-29-4075WASRS CREATININESERUM CREATININEOhioHealth Riverside Methodist Hospitaltart: 02-26-2024 End: 16-29-5735Ixkxvu-up encounterHematology/OncologyComment on above:3 month follow up with lab and arediaStart: 02-26-2024 End: 07-96-3859Qiaywni encounter qrxnovjwd61/04/2024 1:00 PM EDT Office Visit [facility] Laboratory [address] [place] [phone] 3 month [facility] with [facility]Stra[facility] LaboratoryComment on above:3 month follow up with lab and aredia Start: 01-02-2024 End: 27-89-0821EERWUQPGKV PROTEIN, SERUM (BLOOD)MONOCLONAL PROTEIN, SERUM (BLOOD) Lab Routine Multiple myeloma not having achieved remission (HCC) Paget disease of bone Type 2 diabetes mellitus without complication, with long-term current use of insulin (HCC) H/O ulcerative colitis Elevated prostate specific antigen (PSA) Stage 3b chronic kidneydisease (HCC) Expected: 01/02/2024, Expires: 04/02/2024[place] Work Phone: Comment on above:Expected: 01/02/2024, Expires: 04/02/2024Start: 12-05-2023 End: 71-78-8890LNY W Auto Differential panel - BloodCBC + DIFF Lab Routine Multiple myeloma not having achieved remission (HCC) Paget disease of bone Type 2 diabetes mellitus without complication, with long-term current use of insulin (HCC) H/O ulcerative colitis Elevated prostate specific antigen (PSA) Stage 3b chronic kidney disease (HCC) Expected: 12/05/2023, Expires: 03/05/2024[place] Work Phone: Comment on above:Expected: 12/05/2023, Expires: 03/05/2024Start: 12-05-2023 End: 52-72-0451Rkxhhszxallqo metabolic 2000 panel - Serum or PlasmaCOMP METABOLIC PANEL Lab Routine Multiple myeloma not having achieved remission (HCC) Paget diseaseof bone Type 2 diabetes mellitus without complication, with long- term current use of insulin (HCC) H/O ulcerative colitis Elevated prostate specific antigen (PSA) Stage 3b chronic kidney disease (HCC) Expected: 12/05/2023, Expires: 03/05/2024[place] Work Phone: Comment on above:Expected: 12/05/2023, Expires: 03/05/2024Start: 12-05-2023 End: 54-84-9438HQTO ELECT SERUM WITH TOÑITO AND INTERPPROT ELECT SERUM WITH TOÑITO AND INTERP Lab Routine Multiple myeloma not having achieved remission (HCC) Expected: 12/05/2023, Expires: 03/05/2024[place] Work Phone: Comment on above:Expected: 12/05/2023, Expires: 03/05/2024Start: 11-26-2023 End: 46-92-1431Duvnn metabolic 2000 panel - Serum or PlasmaBASIC METABOLIC PNL Lab Routine Multiple myeloma not having achieved remission (HCC) Expected: 11/25, Expires: 02/25/2024[place] Work Phone: Comment on above:Expected: 11/26/2023, Expires: 02/25/2024Start: 11-26-2023 End: 83-45-2847RLP W Auto Differential panel - BloodCBC + DIFF Lab Routine Multiple myeloma not having achieved remission (HCC) Expected: 11/26/2023, Ex jamie: 02/25/2024[place] Work Phone: Comment on above:Expected: 11/26/2023, Expires: 02/25/2024Start: 11-26-2023 End: 21-41-6996MUXRTUNTEG PROTEIN, SERUM (BLOOD)MONOCLONAL PROTEIN, SERUM (BLOOD) Lab Routine Multiple myeloma not having achieved remission (HCC) E xpected: 11/26/2023, Expires: 02/25/2024[place] Work Phone: Comment on above:Expected: 11/26/2023, Expires: 02/25/2024Start: 11-26-2023 End: 45-07-1052YXEM ELECT SERUM WITH TOÑITO AND INTERPPROT ELECT SERUM WITH TOÑITO AND INTERP Lab Routine Multiple myeloma not having achieved remission (HCC) Expected: 11/26/2023, Expires: 02/25/2024[place] Work Phone: Comment on above:Expected: 11/26/2023, Expires: 02/25/2024Start: 91-25-7111Ytybgjt Directive DiscussionAdvance Directive DiscussionCleCleveland Clinic Foundationtart: 02-48-0099Iaiokdexzz Health ScreeningBehavioral Health ScreeningOhioHealth Riverside Methodist Hospitaltart: 53-78-6785Fdyeokaobh AssessmentDepression AssessmentCleCleveland Clinic Foundationtart: 52-56-4270Hzfru-19 Vaccine () Covid-19 Vaccine ()[facility] Hospitaltart: 08-28-2023 End: 92-41-8293HVBFHNQZHU PROTEIN, SERUM (BLOOD)[facility] Work Phone: Comment on above:Expected: 08/28/2023, Expires: 11/27/2023Start: 08-28-2023 End: 27-51-8238ABSO ELECT SERUM WITH TOÑITO AND INTERPCCent[place] Work Phone: Comment on above:Expected: 08/28/2023, Expires: 11/27/2023Start: 04-78-4868Ufqiy-19 Vaccine ()Covid-19 Vaccine ()[facility] Hospitaltart: 73-49-5161Wzdlacsps vaccination [facility] Hospitaltart: 83-70-6653Vzfmt depression screening assessmentDEPRESSION SCREENINGOhioHealth Riverside Methodist Hospitaltart: 03-06-2023 End: 95-71-5532XTW W Auto Differential panel - BloodCBC + DIFF Lab Routine Multiple myeloma not having achieved remission (HCC) Expected: 03/06/2023, Ex jamie: 05/06/2023[place] Work Phone: Comment on above:Expected: 03/06/2023, Expires: 05/06/2023Start: 03-06-2023 End: 11-62-7537Fkhpuqmratugs metabolic 2000 panel - Serum or PlasmaCOMP METABOLIC PANEL Lab Routine Multiple myeloma not having achieved remission (HCC) Expected: 03/06/2023, Expires: 05/06/2023[place] Work Phone: Comment on above:Expected: 03/06/2023, Expires: 05/06/2023Start: 03-06-2023 End: 53-21-9072AMOEOTGGLA PROTEIN, SERUM (BLOOD)MONOCLONAL PROTEIN, SERUM (BLOOD) Lab Routine Multiple myeloma not having achieved remission (HCC) E xpected: 03/06/2023, Expires: 05/06/2023[place] Work Phone: Comment on above:Expected: 03/06/2023, Expires: 05/06/2023Start: 03-06-2023 End: 22-26-3025BFQS ELECT SERUM WITH TOÑITO AND INTERPPROT ELECT SERUM WITH TOÑITO AND INTERP Lab Routine Multiple myeloma not having achieved remission (HCC) Expected: 03/06/2023, Expires: 05/06/2023[place] Work Phone: Comment on above:Expected: 03/06/2023, Expires: 05/06/2023Start: 12-05-2022 End: 83-13-3541EXO W Auto Differential panel - BloodCBC + DIFF Lab Routine Multiple myeloma not having achieved remission (HCC) Expected: 12/05/2022, Ex jamie: 02/04/2023[place] Work Phone: Comment on above:Expected: 12/05/2022, Expires: 02/04/2023Start: 12-05-2022 End: 11-87-7691Cqegunyxgferi metabolic 2000 panel - Serum or PlasmaCOMP METABOLIC PANEL Lab Routine Multiple myeloma not having achieved remission (HCC) Expected: 12/05/2022, Expires: 02/04/2023[place] Work Phone: Comment on above:Expected: 12/05/2022, Expires: 02/04/2023Start: 12-05-2022 End: 36-77-2124EINBANDAIP PROTEIN, SERUM (BLOOD)MONOCLONAL PROTEIN, SERUM (BLOOD) Lab Routine Multiple myeloma not having achieved remission (HCC) E xpected: 12/05/2022, Expires: 02/04/2023[place] Work Phone: Comment on above:Expected: 12/05/2022, Expires: 02/04/2023Start: 12-05-2022 End: 76-16-2869VPMF ELECT SERUM WITH TOÑITO AND INTERPPROT ELECT SERUM WITH TOÑITO AND INTERP Lab Routine Multiple myeloma not having achieved remission (HCC) Expected: 12/05/2022, Expires: 02/04/2023[place] Work Phone: Comment on above:Expected: 12/05/2022, Expires: 02/04/2023Start: 69-53-9713JUKUGCV DIRECTIVE DISCUSSIONADVANCE DIRECTIVE DISCUSSIONClepromedica bay park hospital ClinicStart: 00-98-9105SVLSTNHBPR ASSESSMENTDEPRESSION ASSESSMENTOhioHealth Riverside Methodist Hospitaltart: 09-12-2022 End: 11-75-6286ILH W Auto Differential panel - BloodCBC + DIFF Lab Routine Multiple myeloma not having achieved remission (HCC) Paget disease of bone Type 2 diabetes mellitus without complication, with long-term current use of insulin (HCC) Elevated prostate specific antigen (PSA) Expected: 09/12/2022, Expires: 11/12/2022[place] Work Phone: Comment on above:Expected: 09/12/2022, Expires: 11/12/2022Start: 09-12-2022 End: 58-83-4163Lngpudvhezory metabolic 2000 panel - Serum or PlasmaCOMP METABOLIC PANEL Lab Routine Multiple myeloma not having achieved remission (HCC) Paget diseaseof bone Type 2 diabetes mellitus without complication, with long- term current use of insulin (HCC) Elevated prostate specific antigen (PSA) Expected: 09/12/2022, Expires: 11/12/2022[place] Work Phone: Comment on above:Expected: 09/12/2022, Expires: 11/12/2022Start: 09-12-2022 End: 84-76-4464WCPWOVGEBM PROTEIN, SERUM (BLOOD)MONOCLONAL PROTEIN, SERUM (BLOOD) Lab Routine Multiple myeloma not having achieved remission (HCC) Paget disease of bone Type 2 diabetes mellitus without complication, with long-term current use of insulin (HCC) Elevated prostate specific antigen (PSA) Expected: 09/12/2022, Expires: 11/12/2022[place] Work Phone: Comment on above:Expected: 09/12/2022, Expires: 11/12/2022Start: 09-12-2022 End: 66-25-9492XSPS ELECT SERUM WITH TOÑITO AND INTERPPROT ELECT SERUM WITH TOÑITO AND INTERP Lab Routine Multiple myeloma not having achieved remission (HCC) Paget disease of bone Type 2 diabetes mellitus without complication, with long-term current use of insulin (HCC) Elevated prostate specific antigen (PSA) Expected: 09/12/2022, Expires: 11/12/2022[place] Work Phone: Comment on above:Expected: 09/12/2022, Expires: 11/12/2022Start: 29-39-6065Lihlb depression screening assessmentDEPRESSION SCREENINGOhioHealth Riverside Methodist Hospitaltart: 22-96-5634DJEZR-19 VACCINE (7 - Mixed Product risk series)COVID-19 VACCINE (7 - Mixed Product risk series)[facility] Start: 06-16-2022 End: 27-95-6147SKR W Auto Differential panel - BloodCBC + DIFF Lab Routine Multiple myeloma not having achieved remission (HCC) Expected: 06/16/2022, Ex jamie: 08/16/2022[place] Work Phone: Comment on above:Expected: 06/16/2022, Expires: 08/16/2022tart: 06-16-2022 End: 16-47-5477Gyfzevelcxfwk metabolic 2000 panel - Serum or PlasmaCOMP METABOLIC PANEL Lab Routine Multiple myeloma not having achieved remission (HCC) Expected: 06/16/2022, Expires: 08/16/2022[place] Work Phone: Comment on above:Expected: 06/16/2022, Expires: 08/16/2022tart: 06-16-2022 End: 14-32-0799OQCHKDMZYU PROTEIN, SERUM (BLOOD)MONOCLONAL PROTEIN, SERUM (BLOOD) Lab Routine Multiple myeloma not having achieved remission (HCC) E xpected: 06/16/2022, Expires: 08/16/2022[place] Work Phone: Comment on above:Expected: 06/16/2022, Expires: 08/16/2022tart: 06-16-2022 End: 38-07-2124WXJX ELECT SERUM WITH TOÑITO AND INTERPPROT ELECT SERUM WITH TOÑITO AND INTERP Lab Routine Multiple myeloma not having achieved remission (HCC) Expected: 06/16/2022, Expires: 08/16/2022[place] Work Phone: Comment on above:Expected: 06/16/2022, Expires: 08/16/2022tart: 26-43-7706Jkdsuezmu vaccinationINFLUENZA (#1)[facility] Start: 40-53-4294UNQQH-19 VACCINE (5 - Booster)COVID-19 VACCINE (5 - Booster) [facility]art: 03-23-2022 End: 13-82-3288GYW W Auto Differential panel - BloodCBC + DIFF Lab Routine Multiple myeloma not having achieved remission (HCC) Expected: 03/23/2022, Ex jamie: 05/23/2022[place] Work Phone: Comment on above:Expected: 03/23/2022, Expires: 05/23/2022tart: 03-23-2022 End: 46-38-3243Xdlpzrkdtqfip metabolic 2000 panel - Serum or PlasmaCOMP METABOLIC PANEL Lab Routine Multiple myeloma not having achieved remission (HCC) Expected: 03/23/2022, Expires: 05/23/2022[place] Work Phone: Comment on above:Expected: 03/23/2022, Expires: 05/23/2022tart: 03-23-2022 End: 31-13-3547KBGYSSJFDT PROTEIN, SERUM (BLOOD)MONOCLONAL PROTEIN, SERUM (BLOOD) Lab Routine Multiple myeloma not having achieved remission (HCC) E xpected: 03/23/2022, Expires: 05/23/2022[place] Work Phone: Comment on above:Expected: 03/23/2022, Expires: 05/23/2022tart: 03-23-2022 End: 92-04-2684WNBT ELECT SERUM WITH TOÑITO AND INTERPPROT ELECT SERUM WITH TOÑITO AND INTERP Lab Routine Multiple myeloma not having achieved remission (HCC) Expected: 03/23/2022, Expires: 05/23/2022[place] Work Phone: Comment on above:Expected: 03/23/2022, Expires: 05/23/2022tart: 50-68-3938WPKYA-19 VACCINE (5 - Booster)COVID-19 VACCINE (5 - Booster)[facility]: 83-76-2269VZARM-19 VACCINE (4 - Booster)COVID-19 VACCINE (4 - Booster)[facility]: 85-30-6977CAWSXVK DIRECTIVE DISCUSSIONADVANCE DIRECTIVE DISCUSSIONOhioHealth Riverside Methodist Hospitaltart: 09-24-2021 DEPRESSION ASSESSMENTDEPRESSION ASSESSMENTOhioHealth Riverside Methodist Hospitaltart: 41-20-9279Gzia Risk ScreeningFall Risk ScreeningProOhioHealth Nelsonville Health Centertart: 2012 PNEUMOVAX AGE 65 AND OVER WITH 5YR LOOKBACK (#1)PNEUMOVAX AGE 65 AND OVER WITH 5YR LOOKBACK (#1)[facility]: 09-73-6664Nklxecdug B Vaccine (1 of 3 - Risk 3-dose series)Hepatitis B Vaccine (1 of 3 - Risk 3-dose series)[facility]: 81-08-5752MSW Vaccine (1 - 1-dose 60+ series)RSV Vaccine (1 - 1- dose 60+ series)[facility] Hospitalt[facility]: 22-61-9250Jtzwodewlryxij of varicella zoster vaccineZoster (Shingles) Vaccine (1 of 2)[facility]: 52-53-5625QIMRMFLK VACCINE (1 of 2)SHINGRIX VACCINE (1 of 2)[facility] Start: 63-27-4918ZDPKLXWXU (FIT-DNA)COLOGUARD (FIT-DNA)[facility]tart: 69-43-1956HlttnwrsroyBQJBJJLYZCBXtdymulna ClinicStart: 29-69-0071RXILKRFMOP CANCER SCREENINGCOLORECTAL CANCER SCREENINGOhioHealth Riverside Methodist Hospitaltart: 90-17-4814DL COLONOGRAPHYCT COLONOGRAPHYOhioHealth Riverside Methodist Hospitaltart: 52-42-1063AJGBC OCCULT BLOOD FECAL OCCULT BLOODOhioHealth Riverside Methodist Hospitaltart: 41-62-0217DHCWAPYWQKTWTGFROUHORVWPRE [facility]: 49-99-8071ARwC,Tdap and Td Vaccines (1 - Tdap)DTaP,Tdap and Td Vaccines (1 - Tdap)[facility]: 71-44-6100Bnqzbjwfvnff Vaccine: 50+ (1 of 2 - PCV)Pneumococcal Vaccine: 50+ (1 of 2 - PCV)[facility]: 16-44-3329RSITEYRS VACCINE (1 of 2)SHINGRIX VACCINE (1 of 2) [facility]: 37-16-7357Msaew microalbumin profileCity Hospital Start: 55-39-4561NAASPX PCP TEAM CHRONIC DISEASE VISITANNUAL PCP TEAM CHRONIC DISEASE VISITOhioHealth Riverside Methodist Hospitaltart: 22-21-4531Dpmhemn ScreeningAnxiety Screening [facility]: 93-94-0360Loptmvgoiy ScreeningDepression Screening [facility]: 00-72-5805Rihuppzcd B surface antibody levelLDL CHOLESTEROLOhioHealth Riverside Methodist Hospitaltart: 30-82-2483NXZGXVGOE C SCREENINGHEPATITIS C SCREENINGOhioHealth Riverside Methodist Hospitaltart: 55-47-0574Clhuwdjci C screeningHepatitis C ScreeningOhioHealth Riverside Methodist Hospitaltart: 85-54-2227Qmcdqrucwg ScreeningDepression ScreeningHighsmith-Rainey Specialty Hospitaltart: comp foot exam completed DIABETIC FOOT EXAMOhioHealth Riverside Methodist Hospitaltart: 69-90-3889Dmbuvwxw foot examination Diabetic Foot ExamOhioHealth Riverside Methodist Hospitaltart: 05-03-4570Cyufljtk screeningDilated Retinal ExamOhioHealth Riverside Methodist Hospitaltart: 85-96-8637Rkxyuvuaz B screeningURINE ALBUMIN:CREATININE RATIOOhioHealth Riverside Methodist Hospitaltart: 28-79-1175Oadierlnf C antibody, confirmatory testDILATED RETINAL EXAMOhioHealth Riverside Methodist Hospitaltart: 1951 Pneumococcal Vaccine: 65+ (1 - PCV)Pneumococcal Vaccine: 65+ (1 - PCV)[facility]: 57-73-6798Pmnopiebiwyi Vaccine: 65+ (1 of 2 - PCV)Pneumococcal Vaccine: 65+ (1 of 2 - PCV)[facility]: 85-72-6973SFVOBTMHHPSL: 65+ (1 - PCV)PNEUMOCOCCAL: 65+ (1 - PCV)[facility]tart: 13-40-3514Kukuwbodgz A1c uhajwjffyutRlB8UPesdmjvcy ClinicStart: 16-78-1745Llfeiikfnj A1c/Hemoglobin.total in SmywtPZO1YCncweohne ClinicStart: 39-10-1109NVJLSUCFZ AORTIC ANEURYSM SCREENINGABDOMINAL AORTIC ANEURYSM SCREENINGMansfield Hospital Immunizations Immunization DateImmunizationNotesCare QxmmxwroVzbtgoka70-81-9242hiraymjwyus syncytial virus (RSV) vaccine, bivalent (ABRYSVO)Chair Lois Work Phone: City HospitalXkbqhl41-41-7369QWNQB-97 vaccine (UNSPECIFIED)[facility] Work Phone: City HospitalZsfkhm72-58-0591GREIO-47 vaccine, age 12+ yr ([facility] - [facility] Work Phone: [facility] HospitalFaovsv36-68-6228ynhjpllin, high-dose, quadrivalent vaccine (FLUZONE HIGH DOSE QUADRIVALENT)[facility] Work Phone: [facility] HospitalXwgaic03-91-4464shxbgkhfv virus vaccine, unspecified formulationAinsley Woodson [facility] Work Phone: City HospitalLpychm37-13-5560BDURZ-32 vaccine, age 12+ yr ([facility] Work Phone: City HospitalHpnuoz16-15-8456WEWSN-86 vaccine, age 12+ yr ([facility] Work Phone: City HospitalOzmekv74-16-6500Qyntjaei trivalent influenza vaccine, adjuvanted, preservative freeRiverview Behavioral Healthceline [facility] Work Phone: City HospitalVjvsfd83-91-4135fxskgxyrb virus vaccine, unspecified formulationPorsche [facility] Work Phone: [facility] Payers DatePayer CategoryPayerPolicy ID2012MedicareMEDICARE MEDICARE A AND B [id number] 2012-Present [phone] [address] [address] [place] [address] [id number] 2012Medicare [id number] Health InsuranceGE[facility] Member Subscriber Plan / Payer (Effective 2012- Present) Name: Zach Manuel Relation to Subscriber: Self Name: Zach Manuel Payer ID: Not on file Group ID: Not on file Type: Semaj Address: [address] [id number] UnknownFORE THOUGHT LIFE INSURANCE FORETHOUGHT SUPPLEMENT [id number] 2012- [phone] [address] [id number]99SlpsyuhQAAN THOUGHT LIFE INSURANCE FORETHOUGHT SUPPLEMENT [id number] 2012- [phone] [place] [address] [id number] [id number] [id number] 1947Unknown [id number] 2.1.418234.3.57[id number] .1.401687.3.57[id number] .1.935603.3.57[id number] .1.986610.3.57[id number] .1.306015.3.57[id number] 2.1.459462.3.57[id number] 2.16840.1.539535.3.57[id number] 2.16840.1.990515.3.57[id number] 2.16840.1.525731.3.57[id number] 2.840.1.839642.3.57[id number] 2.0.1.820881.3.57[id number] 2.0.1.954319.3.57[id number] 2.0.1.765236.3.57[id number] 2.0.1.272056.3.57[id number] 2.840.1.779785.3.57[id number] 2.0.1.825448.3.57[id number] 2.0.1.272755.3.57[id number] 2.840.1.176084.3.57[id number] 2.0.1.029376.3.579.2.727Managed Care Other (unspecified) [id number] Social History DateTypeDetailFacilityStart: 99-54-3934Izcnqqm smoking status NHISEx-smoker [facility] Work Phone: Start: 09-24-1958 End: 81-75-0183Gzancix of tobacco useCurrent smokerCity Hospital Work Phone: Start: [birth year]24-1958 End: 96-71-2321Wejrfur of tobacco useCigarette SmokerCity Hospital Work Phone: Start: 11-28-2021 End: 57-90-1063Efbzdwo intakeCurrent non-drinker of alcohol (finding)[facility]: 46-50-4544Bac Assigned At BirthNot on fileOhioHealth Riverside Methodist Hospitaltart: 01-14-2022 End: 30-10-7679Pscqjdxn to SARS-CoV-2 (event)Not sureOhioHealth Riverside Methodist Hospitaltart: 10-20-2015 End: 17-10-2721Sivurchzoq smoked current (pack per day) - Mgwdfwbc6Ehxyxabsr ClinicStart: 10-20-2015 End: 13-27-7037Vitiqga use and exposureSmokeless tobacco non-userOhioHealth Riverside Methodist Hospitaltart: 03-21-2022 End: 82-11-4849Uxwnctp use panelCity HospitalNational Score (1-100), lower number is lower urlg67PjyyfovsdOhioHealth Riverside Methodist Hospitaltart: 77-35-2177Lmhzwkh smoking status NHISNever smoked tobaccoProAultman Orrville Hospital SystemStart: 10-09-2024 End: 95-23-1448Wyoclugch beverage intakeEx-drinker (finding)[facility] Hospitaltart: 33-18-6286JkzLihc (finding)[facility] Medical Equipment Procedure CodeEquipment CodeEquipment Original TextEquipment IdentifierDatesLens Iol Sy60wf.195 [facility] [id number] - [id number] - [id number]: 65-22-7788Tgjs Iol Sy60wf.215 [facility] [id number] - [id number] - [id number]: 11-20-2024 Functional Status BxixRqtysnfytzEubsgmQghkazah98-67-9481Fiv you deaf, or do you have serious difficulty hearingNo 04/09/2015 11:20 AM [facility] Sel[facility] 86-78-2102Txs you blind, or do you have serious difficulty seeing, even when wearing glassesNo 04/09/2015 11:20 AM [facility] 06-68-9746Us you have serious difficulty walking or climbing stairsNo 04/09/2015 11:20 AM [facility]07-17-2015Do you have difficulty dressing or bathingNo 04/09/2015 11:20 AM [facility] HospitalOujewz88-27-6659Eyfvxlz of a physical, mental, or emotional condition, do you have difficulty doing errands alone such as visiting a physician's office or shoppingNo 04/09/2015 11:20 AM [facility] Mental Status VgbnFgnnpuzxggFixohsDuvjjgcj80-14-4137Vyxeart of a physical, mental, or emotional condition, do you have serious difficulty concentrating, remembering, or making decisionsNo 04/09/2015 11:20 AM [facility]in [facility] Clinical Notes 01-24-2022 to 02-19-2025 Note Date & PhojUyzeTejthoqx43-63-8112 Telephone encounter Note* Telephone Encounter - Bozena Roland RN - 02/19/2025 12:19 PM EDT Pt informed of BRM message, once verified, using 2 patient identifiers. Patient denies any questions, needs or concerns at this time. Appointment verified. Bozena Roland RN [facility]05-29-2025 Miscellaneous Notes* Telephone Encounter - Bozena Roland RN - 02/19/2025 12:19 PM EDT Pt informed of BRM message, once verified, using 2 patient identifiers. Patient denies any questions, needs or concerns at this time. Appointment verified. Bozena Roland RN documented in this encounterCity Hospital05-26-2025 NoteHNO ID: [id number] Author: URIEL GUNTER MD Service: ? Author [...] mellitus (HCC) Hyperlipidemia Monoclonal gammopathy 11/2002 [facility] [place] Multiple myeloma (HCC) 2002 Ulcerative colitis (HCC) [...] for metastases. 08/18/2019 - Bone survey at [facility] Conclusion: Scattered lytic lesions, stable in num (more content not included)...[facility]05-26-2025 History of Present illness Narrative* Uriel [...] mellitus (HCC) Hyperlipidemia Monoclonal gammopathy 11/2002 IgG [place] Multiple myeloma (HCC) 2002 Ulcerative colitis (HCC) [...] for metastases. 08/18/2019 - Bone survey at [facility] Conclusion: Scattered lytic lesions, stable in number and size from prior exams. 05/06/2018 - Bone Survey at [facility] Scattered lytic lesions, stable in both [...] worsens. Uriel Gunter MD documented in this encounterCity Hospital02-26-2025 Nurse Note* Perioperative Nursing Note - Nilam Ortiz RN - 11/19/2024 10:32 AM EST Preoperative Education Checklist- General Surgery date: 11/20/24 Surgery time: 945a Arrival time: 745a 1. Bring a photo ID and your insurance card with you the day of surgery. You will check in at the main lobby of the [facility]- registration desk is straight ahead as soon as you walk in. Tell them you are here for surgery. 2. If you have a Living Will/Durable Power of Cinder Worker for Health Care that is not on [...] after you have bathed. 5. NO nail bhutanese/acrylic on at least one finger. If you are having a hand, wrist or foot surgery then all nail bhutanese and artificial/acrylic nails must be removed from [...] please call the Preadmission Testing office at [phone], Mon.-Fri. 7 a.m.-3 p.m. Leave a voicemail [...] Stop taking 0 days prior to procedure [employer]02-26-2025 Miscellaneous Notes* Perioperative Nursing Note - Nilam Ortiz RN - 11/19/2024 10:32 AM EST Preoperative Education Checklist- General Surgery date: 11/20/24 Surgery time: 945a Arrival time: 745a 1. Bring a photo ID and your insurance card with you the day of surgery. You will check in at the main lobby of the [facility]- registration desk is straight ahead as soon as you walk in. Tell them you are here for surgery. 2. If you have a Living Will/Durable Power of Cinder Worker for Health Care that is not on [...] after you have bathed. 5. NO nail bhutanese/acrylic on at least one finger. If you are having a hand, wrist or foot surgery then all nail bhutanese and artificial/acrylic nails must be removed from [...] please call the Preadmission Testing office at [phone], Mon.-Fri. 7 a.m.-3 p.m. Leave a voicemail [...] days prior to procedure [facility] Telephone encounter Note* Telephone Encounter - Ainsley Woodson RP - 10/10/2024 9:25 AM EST Zach called requesting a refill on his revlimid. He is on his off week starting 10/11/24 and would like the script shipped to his house. Thank you- Dustin Woodson PharmD, JUANOP [facility] Work Phone: [phone] Miscellaneous Notes* Telephone Encounter - Ainsley Woodson RPh - 10/10/2024 9:25 AM EST Zach called requesting a refill on his revlimid. He is on his off week starting 10/11/24 and would like the script shipped to his house. Thank you- Dustin Woodson PharmD, BCOP documented in this encounterCity Hospital01-16-2025 Instructions* Patient Instructions* Nilam Ortiz RN - 10/09/2024 9:45 AM EST Preoperative Education Checklist- General Surgery date: 10/30/24 Surgery time: 945a Arrival time: 745a 1. Bring a photo ID and your insurance card with you the day of surgery. You will check in at the main lobby of the [facility]- registration desk is straight ahead as soon as you walk in. Tell them you are here for surgery. 2. If you have a Living Will/Durable Power of Cinder Worker for Health Care that is not on [...] after you have bathed. 5. NO nail bhutanese/acrylic on at least one finger. If you are having a hand, wrist or foot surgery then all nail bhutanese and artificial/acrylic nails must be removed from [...] please call the Preadmission Testing office at [phone], Mon.-Fri. 7 a.m.-3 p.m. Leave a voicemail [...] days prior to procedure documented in this [facility]24 Telephone encounter Note* Telephone Encounter - Juan Ferguson RN - 05/29/2024 12:22 PM EDT Pt and spouse notified and verbalizes understanding. Juan Ferguson RN [facility] Work Phone: [phone]) 568-183809-05-2024 Miscellaneous Notes* Telephone Encounter - Juan Ferguson RN - 05/29/2024 12:22 PM EDT Pt and spouse notified and verbalizes understanding. Juan Ferguson RN * Telephone Encounter - Juan Ferguson RN - 05/29/2024 12:21 PM EDT ----- Message from Latrice Hilario PA-C sent at 05/29/2024 11:58 AM EDT ----- Please call with stable myeloma labs documented in this encounterCity Hospital09-05-2024 Telephone encounter Note * Telephone Encounter - Juan Ferguson RN - 05/29/2024 12:21 PM EDT ----- Message from Latrice Hilario PA-C sent at 05/29/2024 11:58 AM EDT ----- Please call with stable myeloma labs [facility]-03-2024 Telephone encounter Note* Telephone Encounter - Juan Ferguson RN - 05/27/2024 2:23 PM EDT Pt's spouse notified and verbalizes understanding. Juan Ferguson RN [facility] Work Phone: [phone]) 200-114909-03-2024 Miscellaneous Notes* Telephone Encounter - Juan Ferguson RN - 05/27/2024 2:23 PM EDT Pt's spouse notified and verbalizes understanding. Juan Sessler, RN * Telephone Encounter - Latrice Hilario PA-C - 05/27/2024 1:29 PM EDT Please call with a stable kidney function. Latrice Hilario PA-C documented in this encounterCity Hospital09-03-2024 Telephone encounter Note * Telephone Encounter - Latrice Hilario PA-C - 05/27/2024 1:29 PM EDT Please call with a stable kidney function. Latrice Hilario PA-C [facility] Work Phone: [phone]) 984-720809-03-2024 NoteHNO ID: [id number] Author: LATRICE HILARIO PA-C Service: ? Author Type: Physician Medical Research Assistant Type: Progress Notes Filed: 05/27/2024 13:29 Note [...] date: Hyperlipidemia 11/2002: Monoclonal gammopathy Comment: IgG [place] 2003: Multiple myeloma (HCC) No date: Ulcerative [...] for metastases. 08/18/2019 - Bone survey at [facility] Conclusion: Scattered lytic lesions, stable in number and size from prior exams. 05/06/2018 - [place] (more content not included)...[facility] 05-27-2024 History of Present illness Narrative* [...] date: Hyperlipidemia 11/2002: Monoclonal gammopathy Comment: IgG [place] 2002: Multiple myeloma (HCC) No date: Ulcerative [...] for metastases. 08/18/2019 - Bone survey at [facility] Conclusion: Scattered lytic lesions, stable in number and size from prior exams. 05/06/2018 - Bone Survey at [facility] Scattered lytic lesions, stable in both [...] which included preparing to see the patient, kvql-jc-olxz patient care, completing clinical documentation, performing a medically appropriate examination, counseling and educating the patient/family/caregiver, ordering medications, tests, or p rocedures, independently interpreting results (not separately reported), communicating results to the patient/family/caregiver, and care coordination (not separately reported). documented in this encounterCity Hospital08-27-2024 Telephone encounter Note * Telephone Encounter - Irma Talavera MA - 05/20/2024 10:35 AM EDT Patient has an appt on 05/27/24. Would you like labs, if so place orders. Irma Talavera MA [facility]08-27-2024 Miscellaneous Notes* Telephone Encounter - Irma Fitzgerald MA - 05/20/2024 10:35 AM EDT Patient has an appt on 05/27/24. Would you like labs, if so place orders. Irma Talavera MA documented in this encounterCity Hospital06-07-2024 Telephone encounter Note * Telephone Encounter - Juan Ferguson RN - 02/29/2024 8:52 AM EDT Pt notified and verbalizes understanding. Juan Ferguson RN [facility] Work Phone: 1(370) 414-673806-07-2024 Telephone encounter Note* Telephone Encounter - Juan Ferguson RN - 02/29/2024 8:52 AM EDT ----- Message from Latrice Hilario PA-C sent at 02/29/2024 8:10 AM EDT ----- Please let patient know his labs are stable and we will continue to monitor [facility]06-07-2024 Miscellaneous Notes* Telephone Encounter - Juan Ferguson RN - 02/29/2024 8:52 AM EDT Pt notified and verbalizes understanding. Juan Ferguson RN * Telephone Encounter - Juan Ferguson RN - 02/29/2024 8:52 AM EDT ----- Message from Latrice Hilario PA-C sent at 02/29/2024 8:10 AM EDT ----- Please let patient know his labs are stable and we will continue to monitor documented in this encounterCity Hospital06-03-2024 NoteHNO ID: [id number] Author: URIEL GUNTER MD Service: ? Author Type: Physician Type: Progress Notes Filed: 02/27/2024 16:09 Note Text: PATIENT NAME: Zach aMnuel DATE: 02/26/2024 PRIMARY CARE PHYSICIAN: Dr. Hanna [...] mellitus (HCC) Hyperlipidemia Monoclonal gammopathy 11/2002 IgG [place] Multiple myeloma (HCC) 2002 Ulcerative colitis (HCC) [...] osseous lesions s (more content not included)... [facility]06-03-[facility] History of Present illness Narrative* Uriel [...] mellitus (HCC) Hyperlipidemia Monoclonal gammopathy 11/2002 IgG [place] Multiple myeloma (HCC) 2002 Ulcerative colitis (HCC) [...] for metastases. 08/18/2019 - Bone survey at [facility] Conclusion: Scattered lytic lesions, stable in number and size from prior exams. 05/06/2018 - Bone Survey at [facility] Scattered lytic lesions, stable in both [...] worsens. Uriel Gunter MD documented in this encounterCity Hospital03-05-2024 History of Present illness Narrative* Becca Lane APRN.ROUSTABOUT SUPERVISOR - 11/27/2023 1:08 PM EST PATIENT NAME: [...] 2 DROPS INTO AFFECTED EYE 4 TIMESDAILY dbqwgsen-lbukiyfcj-ymknayqabsfutp (CORTISPORIN) otic solution INSTILL 3 4 DROPS [...] mellitus (HCC) Hyperlipidemia Monoclonal gammopathy 11/2002 IgG [place] Multiple myeloma (HCC) 2002 Ulcerative colitis (HCC) [...] for metastases. 08/18/2019 - Bone survey at [facility] Conclusion: Scattered lytic lesions, stable in number and size from prior exams. 05/06/2018 - Bone Survey at [facility] Scattered lytic lesions, stable in both [...] which included preparing to see the patient, rraa-oe-nlrr patient care, completing clinical documentation, obtaining and/or reviewing separately obtained history, performing a medically appropriate examination, counseling and educating the pat ient/family/caregiver, ordering medications, tests, or procedures, independently interpreting results (not separately reported), and communicating results to the patient/family/caregiver. documented in this encounterCity Hospital03-01-2024 Miscellaneous Notes* Telephone Encounter - Monica Baptiste - 11/23/2023 11:56 AM EST Patient has an appt on 11/26. Would you like labs? documented in this encounterCity Hospital12-05-2023 History of Present illness Narrative* Uriel Gunter [...] 2 DROPS INTO AFFECTED EYE 4 TIMESDAILY njutjpdv-zelmkygfs-nmdqhjxhgzbqxa (CORTISPORIN) otic solution INSTILL 3 4 DROPS [...] mellitus (HCC) Hyperlipidemia Monoclonal gammopathy 11/2002 IgG [place] Multiple myeloma (HCC) 2002 Ulcerative colitis (HCC) [...] for metastases. 08/18/2019 - Bone survey at [facility] Conclusion: Scattered lytic lesions, stable in number and size from prior exams. 05/06/2018 - Bone Survey at [facility] Scattered lytic lesions, stable in both [...] worsens. Uriel Gunter MD documented in this encounterCity Hospital09-07-2023 Miscellaneous Notes* Telephone Encounter - Bozena Roland [...] will continue as planned. documented in this encounterCity Hospital09-05-2023 History of Present illness Narrative* Uriel Gunter [...] 2 DROPS INTO AFFECTED EYE 4 TIMESDAILY ixryhmuk-kzmwgapod-eppkcwqsyjgbml (CORTISPORIN) otic solution INSTILL 3 4 DROPS [...] mellitus (HCC) Hyperlipidemia Monoclonal gammopathy 11/2002 IgG [place] Multiple myeloma (HCC) 2002 Ulcerative colitis (HCC) [...] for metastases. 08/18/2019 - Bone survey at [facility] Conclusion: Scattered lytic lesions, stable in number and size from prior exams. 05/06/2018 - Bone Survey at [facility] Scattered lytic lesions, stable in both [...] worsens. Uriel Gunter MD documented in this encounterCity Hospital06-06-2023 Miscellaneous Notes* Telephone Encounter - Monica Baptiste - 02/27/2023 3:42 PM EDT Patient has an OTV appointment on 03/06. Please place lab orders. Monica Baptiste documented in this encounterCity Hospital03-14-2023 History of Present illness Narrative* Uriel Gunter [...] 2 DROPS INTO AFFECTED EYE 4 TIMESDAILY mskzxehf-vwmwqmqka-flqmcvpygkqkok (CORTISPORIN) otic solution INSTILL 3 4 DROPS [...] mellitus (HCC) Hyperlipidemia Monoclonal gammopathy 11/2002 IgG [place] Multiple myeloma (HCC) 2002 Ulcerative colitis (HCC) [...] for metastases. 08/18/2019 - Bone survey at [facility] Conclusion: Scattered lytic lesions, stable in number and size from prior exams. 05/06/2018 - Bone Survey at [facility] Scattered lytic lesions, stable in both [...] PCP/urology. Uriel Gunter MD documented in this encounterCity Hospital03-06-2023 Miscellaneous Notes* Addendum Note - Uriel Gunter MD - 11/27/2022 1:06 PM ESTAddended by: URIEL GUNTER on: 11/27/2022 01:06 PM Modules accepted: Orders * Telephone Encounter - Selin Stapleton - 11/27/2022 10:49 AM EST Patient coming in on Sunday12/05/22 for follow up treatment. Please add lab orders. Thanks, Selin Stapleton MA documented in this encounterCity Hospital12-29-2022 Miscellaneous Notes* Telephone Encounter - Ainsley Woodson [facility] - 09/21/2022 4:31 PM EST Please sign in everyone's absence. Thank you Dustin Woodson [facility] documented in this encounterCity Hospital12-20-2022 History of Present illness Narrative* Uriel Gunter [...] 2 DROPS INTO AFFECTED EYE 4 TIMESDAILY ddlxbztb-nophlovaw-noygcqwdujtkpa (CORTISPORIN) otic solution INSTILL 3 4 DROPS [...] mellitus (HCC) Hyperlipidemia Monoclonal gammopathy 11/2002 IgG [place] Multiple myeloma (HCC) 2002 Ulcerative colitis (HCC) [...] for metastases. 08/18/2019 - Bone survey at [facility] Conclusion: Scattered lytic lesions, stable in number and size from prior exams. 05/06/2018 - Bone Survey at [facility] Scattered lytic lesions, stable in both [...] PCP/urology. Uriel Gunter MD documented in this encounterCity Hospital09-27-2022 History of Present illness Narrative* Ese Ferro RN - 06/20/2022 3:21 PM EDT Recommendations per pharmacist Humaira Woodson [facility] for patient to take calcium with Vit D 1 tab twice daily especially as his calcium levels normally run low. Patient education complete with printed material. Questions answered as appropriate. He was encouraged to call with questions or concerns. Ese Ferro RN documented in this encounterCity Hospital09-27-2022 History of Present illness Narrative* Becca Lane [...] 2 DROPS INTO AFFECTED EYE 4 TIMESDAILY qpqywbyv-nzxiuljdx-trfuitmcchjjif (CORTISPORIN) otic solution INSTILL 3 4 DROPS [...] mellitus (HCC) Hyperlipidemia Monoclonal gammopathy 11/2002 IgG [place] Multiple myeloma (HCC) 2002 Ulcerative colitis (HCC) [...] for metastases. 08/18/2019 - Bone survey at [facility] Conclusion: Scattered lytic lesions, stable in number and size from prior exams. 05/06/2018 - Bone Survey at [facility] Scattered lytic lesions, stable in both [...] if the PSA worsen significantly. Becca Lane APRN.ROUSTABOUT SUPERVISOR documented in this encounterCity Hospital09-27-2022 Miscellaneous Notes* Telephone Encounter - Juan Ferguson RN - 06/20/2022 8:56 AM EDT Pt due for Aredia today. Pharmacy suggests checking pt's Calcium level w/ today's labs. Order pended. Juan Ferguson RN documented in this encounterCity Hospital09-23-2022 Miscellaneous Notes* Telephone Encounter - Becca Lane APRN.CNP - 06/16/2022 3:17 PM EDT Please sign for Dr. Gunter since he is out of the office. Thanks, Becca Lane APRN.CNP documented in this encounterCity Hospital09-22-2022 Miscellaneous Notes* Telephone Encounter - Monica Baptiste - 06/15/2022 2:38 PM EDT Patient has an appt on 06/20. Would you like labs? documented in this encounterCity Hospital07-28-2022 Miscellaneous Notes* Telephone Encounter - Uriel Gunter MD - 04/20/2022 11:45 AM EDT Signed documented in this encounterCity Hospital07-06-2022 Miscellaneous Notes* Telephone Encounter - Quita Antoine RPh - 2022 3:29 PM EDT New benjamin obtained through [facility] for $[id number] on ID# [id number] Enrollment 02/27/2022 through 02/26/2023 documented in this encounterCity Hospital07-01-2022 Miscellaneous Notes* Telephone Encounter - Funmilayo Arriola [...] as planned. TAYLOR Avery documented in this encounterCity Hospital06-28-2022 History of Present illness Narrative* Uriel Gunter [...] 2 DROPS INTO AFFECTED EYE 4 TIMESDAILY acywkzml-doamddrrj-zwkzykctjzwzcv (CORTISPORIN) otic solution INSTILL 3 4 DROPS [...] mellitus (HCC) Hyperlipidemia Monoclonal gammopathy 11/2002 IgG [place] Multiple myeloma (HCC) 2002 Ulcerative colitis (HCC) [...] for metastases. 08/18/2019 - Bone survey at [facility] Conclusion: Scattered lytic lesions, stable in number and size from prior exams. 05/06/2018 - Bone Survey at [facility] Scattered lytic lesions, stable in both [...] significantly. Uriel Gunter MD documented in this encounterCity Hospital06-03-2022 Miscellaneous Notes* Telephone Encounter - Uriel Gunter MD - 02/24/2022 3:24 PM EDT Signed. documented in this encounterCity Hospital05-03-2022 History of Present illness Narrative* Uriel Gunter [...] 2 DROPS INTO AFFECTED EYE 4 TIMESDAILY bexxdjev-xswouagxq-evnhyrhbhpjwpp (CORTISPORIN) otic solution INSTILL 3 4 DROPS [...] mellitus (HCC) Hyperlipidemia Monoclonal gammopathy 11/2002 IgG [place] Multiple myeloma (HCC) 2002 Ulcerative colitis (HCC) [...] RADIOLOGY/OTHER STUDIES: 08/18/2019 - Bone survey at [facility] Conclusion: Scattered lytic lesions, stable in number and size from prior exams. 05/06/2018 - Bone Survey at [facility] Scattered lytic lesions, stable in both [...] urology. 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 Type 2 diabetes mellitus without complication, with long-term current use of insulin (HCC) H/O ulcerative colitis Personal history of other diseases of digestive system documented in this encounter [facility]* Diagnosis Multiple myeloma not having achieved remission (HCC)- Primary Multiple myeloma, without mention of having achieved remission 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 Type 2 diabetes mellitus without complication, with long-term current use of insulin (HCC) H/O ulcerative colitis Personal history of other diseases of digestive system Elevated prostate specific antigen (PSA) documented in this encounter [facility]* Diagnosis Multiple myeloma not having achieved [...] specific antigen (PSA) [facility]* Diagnosis Multiple myeloma not having [...] kidney disease (HCC) documented in this encounter [facility]* Diagnosis Multiple myeloma not having achieved remission (HCC)- Primary Multiple myeloma, without mention of having achieved remission 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 [facility]* Diagnosis Multiple myeloma not having [...] specific antigen (PSA) documented in this encounter [facility]* Diagnosis Multiple myeloma not having achieved remission (HCC)- Primary Multiple myeloma, without mention of having achieved remission documented in this encounter [facility]* Diagnosis Multiple myeloma not having achieved remission (HCC)- Primary Multiple myeloma, without mention of having achieved remission Type 2 diabetes mellitus without complication, with long-term current use of insulin (HCC) documented in this encounter [facility]* Diagnosis Preop examination- Primary Unspecified pre-operative examination Preop examination Unspecified pre-operative examination [facility] Diagnosis Multiple myeloma not having achieved remission (HCC)- Primary Multiple myeloma, without mention of having achieved remission 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 documented [facility] this encounter [facility]* Diagnosis Multiple myeloma not having achieved remission (HCC)- Primary Multiple myeloma, without mention of having achieved remission 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 H/O ulcerative colitis Personal history of other diseases of digestive system Stage 3b chronic kidney disease (HCC) documented in this encounter [facility] HospitalInstructionsNot on filedocumented in this encounterMercy Health [facility] HospitalResoutheast [facility] Narrative* [place] Prior Authorization (Routine) - AuthorizedSpecialtyDiagnoses / ProceduresReferred By ContactReferred To Contact Diagnoses Multiple myeloma not having achieved remission (HCC) Paget disease of bone Uriel Gunter MD [address] [place] [address] [place] [address] Phone: tel: fax: Hematology/Oncology [address] [place] [address] [place] [address] Phone: tel: fax: Referral IDStatusReasonStart DateExpiration DateVisits RequestedVisits [id number] [facility] Summary Purpose Family History No Family History Records FoundNo Family History Records FoundNo Family History Records FoundNo Family History Records FoundNo Family History Records FoundNo Family History Records Found Advance Directives No Advanced Directives Records FoundDocuments on File TypeDate RecordedPatient RepresentativeExplanationDurable Power of Cinder Worker 11/11/2024 8:31 AM Hospital Course Note MR#: [id number] I [facility] Pt. Name: Zach Manuel Admitted: 07/13/2018 Discharged: [...] Reproductive Risk Drug: Use appropriate PPE. New Bag/Syringe/Mvvnoy0406/20/2022 2:14 PM EDT30 mg250 mL/hrMedication OrderMAR ActionAction DateDoseRateSite pamidronate 30 mg in NaCl 0.9% 250 mL (AREDIA) 30 mg, INTRAVENOUS, at 285 mL/hr, Administer over 1 Hours, ONCE, 1 dose, On Sun12/05/22 at 1400, APPROXIMATE TOTAL VOLUME_285mL - 24 HOUR EXP:12/06/2022@1355 Hazardous Potential Reproductive Risk Drug: Use appropriate PPE. New Bag/Syringe/Erauen2812/05/2022 2:13 PM EDT30 mg285 mL/hrMedication OrderMAR ActionAction DateDoseRateSite pamidronate 30 mg in NaCl 0.9% 250 mL (AREDIA) 30 mg, INTRAVENOUS, at 250 mL/hr, Administer over 1 Hours, ONCE, 1 dose, On Sun08/28/23 at 1400, APPROXIMATE TOTAL VOLUME_285mL - 24 HOUR EXP:08/29/23 1345 Hazardous Potential Reproductive Risk Drug: Use appropriate PPE. New Bag/Syringe/Pvuolz0508/28/2023 2:04 PM EST30 mg250 mL/hr Reason for Referral SpecialtyDiagnoses / ProceduresReferred By ContactReferred To Contact Aiden Hatfield MD [address] [place] [address] Referral IDStatusReasonStart DateExpiration DateVisits RequestedVisits [id number] Additional Source Comments (unrecognized sect ion and content) No Status Records FoundNo Status Records FoundNo Status Records FoundNo Status Records FoundNo Status Records FoundNo Status Records Found INFORMATION SOURCE (unrecogn ized section and content) DATE CREATED AUTHOR 06/06/2019 [facility] DATE CREATED AUTHOR AUTHOR'S ORGANIZ ATION 11/17/2021 [facility] DATE CREATED AUTHOR AUTHOR'S ORGANIZ ATION 09/02/2022 [facility] DATE CREATED AUTHOR AUTHOR'S ORGANIZ ATION 11/21/2024 [facility] DATE CREATED AUTHOR AUTHOR'S ORGANIZ ATION 02/19/2025 [facility] DATE CREATED AUTHOR AUTHOR'S ORGANIZ ATION 07/28/2025 [facility] Source Comments (unrecognize d section and content) In the event this informatio n is protected by the Federal Confidentiality of Alcohol and Drug Abuse Patient Records regulations: The Federal rules restrict any use of the information to criminally investigate or prosecute any alcohol or drug abuse patient.City HospitalIn the event this information is protected by the Federal Confidentiality of Alcohol and Drug Abuse Patient Records regulations: The Federal rules restrict any use of the information to criminally investigate or prosecute any alcohol or drug abuse patient.City HospitalIn the event this information is protected by the Federal Confidentiality of Alcohol and Drug Abuse Patient Records regulations: The Federal rules restrict any use of the information to criminally investigate or prosecute any alcohol or drug abuse patient.[facility] HospitalIn the event this information is protected by the Federal Confidentiality of Alcohol and Drug Abuse Patient Records regulations: The Federal rules restrict any use of the information to criminally investigate or prosecute any alcohol or drug abuse patient.[facility] HospitalIn the event this information is protected by the Federal Confidentiality of Alcohol and Drug Abuse Patient Records regulations: The Federal rules restrict any use of the information to criminally investigate or prosecute any alcohol or drug abuse patient.[facility] HospitalIn the event this information is protected by the Federal Confidentiality of Alcohol and Drug Abuse Patient Records regulations: The Federal rules restrict any use of the information to criminally investigate or prosecute any alcohol or drug abuse patient.[facility] HospitalIn the event this information is protected by the Federal Confidentiality of Alcohol and Drug Abuse Patient Records regulations: The Federal rules restrict any use of the information to criminally investigate or prosecute any alcohol or drug abuse patient.[facility] HospitalIn the event this information is protected by the Federal Confidentiality of Alcohol and Drug Abuse Patient Records regulations: The Federal rules restrict any use of the information to criminally investigate or prosecute any alcohol or drug abuse patient.[facility] HospitalIn the event this information is protected by the Federal Confidentiality of Alcohol and Drug Abuse Patient Records regulations: The Federal rules restrict any use of the information to criminally investigate or prosecute any alcohol or drug abuse patient.[facility] HospitalIn the event this information is protected by the Federal Confidentiality of Alcohol and Drug Abuse Patient Records regulations: The Federal rules restrict any use of the information to criminally investigate or prosecute any alcohol or drug abuse patient.[facility] HospitalIn the event this information is protected by the Federal Confidentiality of Alcohol and Drug Abuse Patient Records regulations: The Federal rules restrict any use of the information to criminally investigate or prosecute any alcohol or drug abuse patient.[facility] HospitalIn the event this information is protected by the Federal Confidentiality of Alcohol and Drug Abuse Patient Records regulations: The Federal rules restrict any use of the information to criminally investigate or prosecute any alcohol or drug abuse patient.[facility] HospitalIn the event this information is protected by the Federal Confidentiality of Alcohol and Drug Abuse Patient Records regulations: The Federal rules restrict any use of the information to criminally investigate or prosecute any alcohol or drug abuse patient.[facility] HospitalIn the event this information is protected [...] or prosecute any alcohol or drug abuse patient.[facility] HospitalIn the event this information is protected by the Federal Confidentiality of Alcohol and Drug Abuse Patient Records regulations: The Federal rules restrict any use of the information to criminally investigate or prosecute any alcohol or drug abuse patient.[facility] HospitalIn the event this information is protected by the Federal Confidentiality of Alcohol and Drug Abuse Patient Records regulations: The Federal rules restrict any use of the information to criminally investigate or prosecute any alcohol or drug abuse patient.[facility] HospitalIn the event this information is protected by the Federal Confidentiality of Alcohol and Drug Abuse Patient Records regulations: The Federal rules restrict any use of the information to criminally investigate or prosecute any alcohol or drug abuse patient.[facility] HospitalIn the event this information is protected by the Federal Confidentiality of Alcohol and Drug Abuse Patient Records regulations: The Federal rules restrict any use of the information to criminally investigate or prosecute any alcohol or drug abuse patient.[facility] HospitalIn the event this information is protected by the Federal Confidentiality of Alcohol and Drug Abuse Patient Records regulations: The Federal rules restrict any use of the information to criminally investigate or prosecute any alcohol or drug abuse patient.[facility] HospitalIn the event this information is protected by the Federal Confidentiality of Alcohol and Drug Abuse Patient Records regulations: The Federal rules restrict any use of the information to criminally investigate or prosecute any alcohol or drug abuse patient.[facility] HospitalIn the event this information is protected by the Federal Confidentiality of Alcohol and Drug Abuse Patient Records regulations: The Federal rules restrict any use of the information to criminally investigate or prosecute any alcohol or drug abuse patient.[facility] HospitalIn the event this information is protected by the Federal Confidentiality of Alcohol and Drug Abuse Patient Records regulations: The Federal rules restrict any use of the information to criminally investigate or prosecute any alcohol or drug abuse patient.[facility] HospitalIn the event this information is protected by the Federal Confidentiality of Alcohol and Drug Abuse Patient Records regulations: The Federal rules restrict any use of the information to criminally investigate or prosecute any alcohol or drug abuse patient.[facility] HospitalIn the event this information is protected by the Federal Confidentiality of Alcohol and Drug Abuse Patient Records regulations: The Federal rules restrict any use of the information to criminally investigate or prosecute any alcohol or drug abuse patient.[facility] HospitalIn the event this information is protected by the Federal Confidentiality of Alcohol and Drug Abuse Patient Records regulations: The Federal rules restrict any use of the information to criminally investigate or prosecute any alcohol or drug abuse patient.[facility] HospitalIn the event this information is protected by the Federal Confidentiality of Alcohol and Drug Abuse Patient Records regulations: The Federal rules restrict any use of the information to criminally investigate or prosecute any alcohol or drug abuse patient.[facility] HospitalIn the event this information is protected by the Federal Confidentiality of Alcohol and Drug Abuse Patient Records regulations: The Federal rules restrict any use of the information to criminally investigate or prosecute any alcohol or drug abuse patient.[facility] HospitalIn the event this information is protected by the Federal Confidentiality of Alcohol and Drug Abuse Patient Records regulations: The Federal rules restrict any use of the information to criminally investigate or prosecute any alcohol or drug abuse patient.[facility] HospitalIn the event this information is protected by the Federal Confidentiality of Alcohol and Drug Abuse Patient Records regulations: The Federal rules restrict any use of the information to criminally investigate or prosecute any alcohol or drug abuse patient.[facility] HospitalIn the event this information is protected by the Federal Confidentiality of Alcohol and Drug Abuse Patient Records regulations: The Federal rules restrict any use of the information to criminally investigate or prosecute any alcohol or drug abuse patient.[facility] HospitalIn the event this information is protected by the Federal Confidentiality of Alcohol and Drug Abuse Patient Records regulations: The Federal rules restrict any use of the information to criminally investigate or prosecute any alcohol or drug abuse patient.[facility] HospitalIn the event this information is protected by the Federal Confidentiality of Alcohol and Drug Abuse Patient Records regulations: The Federal rules restrict any use of the information to criminally investigate or prosecute any alcohol or drug abuse patient.[facility] HospitalIn the event this information is protected by the Federal Confidentiality of Alcohol and Drug Abuse Patient Records regulations: The Federal rules restrict any use of the information to criminally investigate or prosecute any alcohol or drug abuse patient.[facility] HospitalIn the event this information is protected by the Federal Confidentiality of Alcohol and Drug Abuse Patient Records regulations: The Federal rules restrict any use of the information to criminally investigate or prosecute any alcohol or drug abuse patient.[facility] HospitalIn the event this information is protected by the Federal Confidentiality of Alcohol and Drug Abuse Patient Records regulations: The Federal rules restrict any use of the information to criminally investigate or prosecute any alcohol or drug abuse patient.[facility] HospitalIn the event this information is protected by the Federal Confidentiality of Alcohol and Drug Abuse Patient Records regulations: The Federal rules restrict any use of the information to criminally investigate or prosecute any alcohol or drug abuse patient.[facility] HospitalIn the event this information is protected by the Federal Confidentiality of Alcohol and Drug Abuse Patient Records regulations: The Federal rules restrict any use of the information to criminally investigate or prosecute any alcohol or drug abuse patient.[facility] HospitalIn the event this information is protected by the Federal Confidentiality of Alcohol and Drug Abuse Patient Records regulations: The Federal rules restrict any use of the information to criminally investigate or prosecute any alcohol or drug abuse patient.[facility] HospitalIn the event this information is protected by the Federal Confidentiality of Alcohol and Drug Abuse Patient Records regulations: The Federal rules restrict any use of the information to criminally investigate or prosecute any alcohol or drug abuse patient.[facility] HospitalIn the event this information is protected by the Federal Confidentiality of Alcohol and Drug Abuse Patient Records regulations: The Federal rules restrict any use of the information to criminally investigate or prosecute any alcohol or drug abuse patient.[facility] HospitalIn the event this information is protected by the Federal Confidentiality of Alcohol and Drug Abuse Patient Records regulations: The Federal rules restrict any use of the information to criminally investigate or prosecute any alcohol or drug abuse patient.[facility] HospitalIn the event this information is protected by the Federal Confidentiality of Alcohol and Drug Abuse Patient Records regulations: The Federal rules restrict any use of the information to criminally investigate or prosecute any alcohol or drug abuse patient.[facility] HospitalIn the event this information is protected by the Federal Confidentiality of Alcohol and Drug Abuse Patient Records regulations: The Federal rules restrict any use of the information to criminally investigate or prosecute any alcohol or drug abuse patient.[facility] HospitalIn the event this information is protected by the Federal Confidentiality of Alcohol and Drug Abuse Patient Records regulations: The Federal rules restrict any use of the information to criminally investigate or prosecute any alcohol or drug abuse patient.[facility] HospitalIn the event this information is protected by the Federal Confidentiality of Alcohol and Drug Abuse Patient Records regulations: The Federal rules restrict any use of the information to criminally investigate or prosecute any alcohol or drug abuse patient.[facility] HospitalIn the event this information is protected by the Federal Confidentiality of Alcohol and Drug Abuse Patient Records regulations: The Federal rules restrict any use of the information to criminally investigate or prosecute any alcohol or drug abuse patient.[facility] HospitalIn the event this information is protected by the Federal Confidentiality of Alcohol and Drug Abuse Patient Records regulations: The Federal rules restrict any use of the information to criminally investigate or prosecute any alcohol or drug abuse patient.[facility] HospitalIn the event this information is protected by the Federal Confidentiality of Alcohol and Drug Abuse Patient Records regulations: The Federal rules restrict any use of the information to criminally investigate or prosecute any alcohol or drug abuse patient.[facility] HospitalIn the event this information is protected by the Federal Confidentiality of Alcohol and Drug Abuse Patient Records regulations: The Federal rules restrict any use of the information to criminally investigate or prosecute any alcohol or drug abuse patient.[facility] HospitalIn the event this information is protected by the Federal Confidentiality of Alcohol and Drug Abuse Patient Records regulations: The Federal rules restrict any use of the information to criminally investigate or prosecute any alcohol or drug abuse patient.[facility] HospitalIn the event this information is protected by the Federal Confidentiality of Alcohol and Drug Abuse Patient Records regulations: The Federal rules restrict any use of the information to criminally investigate or prosecute any alcohol or drug abuse patient.[facility] HospitalIn the event this information is protected by the Federal Confidentiality of Alcohol and Drug Abuse Patient Records regulations: The Federal rules restrict any use of the information to criminally investigate or prosecute any alcohol or drug abuse patient.[facility] HospitalIn the event this information is protected by the Federal Confidentiality of Alcohol and Drug Abuse Patient Records regulations: The Federal rules restrict any use of the information to criminally investigate or prosecute any alcohol or drug abuse patient.[facility] HospitalIn the event this information is protected by the Federal Confidentiality of Alcohol and Drug Abuse Patient Records regulations: The Federal rules restrict any use of the information to criminally investigate or prosecute any alcohol or drug abuse patient.[facility] HospitalIn the event this information is protected by the Federal Confidentiality of Alcohol and Drug Abuse Patient Records regulations: The Federal rules restrict any use of the information to criminally investigate or prosecute any alcohol or drug abuse patient.[facility] HospitalIn the event this information is protected by the Federal Confidentiality of Alcohol and Drug Abuse Patient Records regulations: The Federal rules restrict any use of the information to criminally investigate or prosecute any alcohol or drug abuse patient.[facility] HospitalIn the event this information is protected by the Federal Confidentiality of Alcohol and Drug Abuse Patient Records regulations: The Federal rules restrict any use of the information to criminally investigate or prosecute any alcohol or drug abuse patient.[facility] HospitalIn the event this information is protected by the Federal Confidentiality of Alcohol and Drug Abuse Patient Records regulations: The Federal rules restrict any use of the information to criminally investigate or prosecute any alcohol or drug abuse patient.[facility] HospitalIn the event this information is protected by the Federal Confidentiality of Alcohol and Drug Abuse Patient Records regulations: The Federal rules restrict any use of the information to criminally investigate or prosecute any alcohol or drug abuse patient.[facility] HospitalIn the event this information is protected by the Federal Confidentiality of Alcohol and Drug Abuse Patient Records regulations: The Federal rules restrict any use of the information to criminally investigate or prosecute any alcohol or drug abuse patient.[facility] HospitalIn the event this information is protected by the Federal Confidentiality of Alcohol and Drug Abuse Patient Records regulations: The Federal rules restrict any use of the information to criminally investigate or prosecute any alcohol or drug abuse patient.[facility] HospitalIn the event this information is protected by the Federal Confidentiality of Alcohol and Drug Abuse Patient Records regulations: The Federal rules restrict any use of the information to criminally investigate or prosecute any alcohol or drug abuse patient.[facility] Reason for Visit (unrecogniz ed section and content) ReasonOnset DateCommentsRefill Xaufhua70/11/2022ReasonCommentsMultiple Myeloma ReasonOnset DateCommentsRefill Stzynig21/09/2022ReasonOnset DateCommentsRefill Wcyncmk09/03/2022ReasonCommentsMultiple Myelomafollow upReasonCommentsResults ReasonOnset DateCommentsRefill Tzctyzm6503/29/2022lenalidomideReasonCommentsCare Coordinator - OtherAt[facility] benjamin obtainedReasonOnset DateCommentsRefill Dlcvuys96/28/2022ReasonOnset DateCommentsRefill Mzwghux62/26/2022ReasonComments Lab OrdersReasonOnset DateCommentsRefill Ipdyepu9606/16/2022pecialtyDiagnoses / ProceduresReferred By ContactReferred To Contact Diagnoses Multiple myeloma, remission status unspecified (HCC) Urile Gunter MD [address] [place] [address] [place] [address] Shaheen Treat Lois [address] [place] [address] Referral IDStatusReasonStart DateExpiration DateVisits RequestedVisits [id number] CoordinationCalciumReasonOnset DateCommentsRefill Igclcbm2308/11/2022eason CommentsMultiple MyelomaFollow upReasonOnset DateCommentsRefill Request 09/21/2022easonOnset DateCommentsRefill Fnsczsg6010/16/2022ReasonOnset Date CommentsRefill Xnxckvj4311/16/2022ReasonCommentsMultiple MyelomaTreatment visit ReasonOnset DateCommentsRefill Adudlxy7112/19/2022ReasonOnset DateCommentsRefill Aabnzgz5912/28/2022ReasonOnset DateCommentsRefill Xumfbdm0902/05/2023ReasonOnset DateCommentsRefill Xkleymm7304/18/2023ReasonOnset DateCommentsRefill Request 07/18/2023ReasonOnset DateCommentsRefill Nyylmus0408/20/2023ReasonOnset Date CommentsRefill Lbntnma2011/15/2023easonOnset DateCommentsRefill Watdezp9712/10/2023 ReasonOnset DateCommentsRefill Ovsvphc8101/08/2024easonOnset DateCommentsRefill Mtosupf8101/28/2024easonOnset DateCommentsRefill Valfjrm4602/06/2024evlimid SpecialtyDiagnoses / ProceduresReferred By ContactReferred To Contact Diagnoses Multiple myeloma not having achieved remission (HCC) Paget disease of bone Uriel Gunter MD [address] [place] [address] [place] [address] Shaheen Treat Lois [address] [place] [address] Referral IDStatusReasonStart DateExpiration DateVisits RequestedVisits [id number]/[id number] Coordination LabsReasonOnset DateCommentsRefill Nufoahr7803/06/2024easonOnset DateComments Refill Lyjolfy1504/08/2024easonOnset DateCommentsRefill Erwmbar8605/09/2024eason CommentsCare CoordinationLab ResultsReasonOnset DateCommentsRefill Request 06/04/2024easonOnset DateCommentsRefill Duidviu5206/30/2024easonOnset Date CommentsRefill Gerlrfd6208/11/2024easonOnset DateCommentsRefill Twblmsp0909/11/2024 ReasonOnset DateCommentsRefill Mdbxoif1410/10/2024ReasonOnset DateCommentsRefill Ctywimj0511/17/2024ReasonOnset DateCommentsRefill Hzqotqq0112/11/2024ReasonOnset GcauXdhggsslQuifiou36/29/2025ReasonOnset DateCommentsRefill Iqufoae3202/27/2025 Care Teams (unrecognized sec tion and content) Team MemberRelationshipSpecialtyStart DateEnd Date Hanna Mathias MD [address] [place] [id number] PCP - General01/27/03Team MemberRelationshipSpecialtyStart DateEnd Date Hanna Mathias MD [address] [place] [address] PCP - General5Team MemberRelationshipSpecialtyStart DateEnd Date Hanna Mathias MD [address] [place] [address] PCP - General01/27/03Team MemberRelationshipSpecialtyStart DateEnd Date Hanna Mathias, [address] [place] [address] PCP - General01/27/03Team MemberRelationshipSpecialtyStart DateEnd Date Hanna Mathias MD [address] [place] [address] PCP - General01/27/03Team MemberRelationshipSpecialtyStart DateEnd Date Hanna Mathias MD [address] [place] [address] PCP - General01/27/03Team MemberRelationshipSpecialtyStart DateEnd Date Hanna Mathias MD [address] [place] [address] PCP - General01/27/03Team MemberRelationshipSpecialtyStart DateEnd Date Hanna Mathias MD [address] [place] [address] PCP - General01/27/03Team MemberRelationshipSpecialtyStart DateEnd Date Hanna Mathias MD [address] [place] [address] PCP - General01/27/03Team MemberRelationshipSpecialtyStart DateEnd Date Hanna Mathias MD [address] [facility] [place] [address] PCP - General01/27/03Team MemberRelationshipSpecialtyStart DateEnd Date Hanna Mathias MD [address] [facility] [place] [address] PCP - General5Team MemberRelationshipSpecialtyStart DateEnd Date Hanna Mathias MD [address] [place] [facility] [place] [address] PCP - General01/27/03Team MemberRelationshipSpecialtyStart DateEnd Date Hanna Mathias MD [address] [place] [facility] [place] [address] PCP - General01/27/03Team MemberRelationshipSpecialtyStart DateEnd Date Hanna Mathias MD [address] [facility] [place] [address] PCP - General01/27/03Team MemberRelationshipSpecialtyStart DateEnd Date Hanna Mathias MD [address] [facility] [place] [address] PCP - General01/27/03Team MemberRelationshipSpecialtyStart DateEnd Date Hanna Mathias MD [address] [facility] [place] [address] PCP - General01/27/03Team MemberRelationshipSpecialtyStart DateEnd Date Hanna Mathias MD [address] [facility] [place] [address] PCP - General01/27/03Team MemberRelationshipSpecialtyStart DateEnd Date Hanna Mathias MD [address] [facility] [place] [address] PCP - General01/27/03Team MemberRelationshipSpecialtyStart DateEnd Date Hanna Mathias MD [address] [facility] [place] [address] PCP - General01/27/03Team MemberRelationshipSpecialtyStart DateEnd Date Hanna Mathias MD [address] [facility] [place] [address] PCP - General01/27/03Team MemberRelationshipSpecialtyStart DateEnd Date Hanna Mathias MD [address] [facility] [place] [address] PCP - General01/27/03Team MemberRelationshipSpecialtyStart DateEnd Date Hanna Mathias MD [address] [facility] [place] [address] PCP - General01/27/03Team MemberRelationshipSpecialtyStart DateEnd Date Hanna Mathias MD [address] [facility] [place] [address] PCP - General01/27/03Team MemberRelationshipSpecialtyStart DateEnd Date Hanna Mathias MD [address] [facility] [place] [address] PCP - General01/27/03Team MemberRelationshipSpecialtyStart DateEnd Date Hanna Mathias MD [address] [facility] [place] [address] PCP - General01/27/03Team MemberRelationshipSpecialtyStart DateEnd Date Hanna Mathias MD [address] [facility] [place] [address] PCP - General5Team MemberRelationshipSpecialtyStart DateEnd Date Hanna Mathias MD [address] [facility] [place] [address] PCP - General01/27/03Team MemberRelationshipSpecialtyStart DateEnd Date Hanna Mathias MD [address] [facility] [place] [address] PCP - General01/27/03Team MemberRelationshipSpecialtyStart DateEnd Date Hanna Mathias MD [address] [facility] [place] [address] PCP - General01/27/03Team MemberRelationshipSpecialtyStart DateEnd Date Hanna Mathias MD [address] [facility] [place] [address] PCP - General5Team MemberRelationshipSpecialtyStart DateEnd Date Hanna Mathias MD [address] [facility] [place] [address] PCP - General5Team MemberRelationshipSpecialtyStart DateEnd Date Hanna Mathias MD [address] [facility] [place] [address] PCP - General5Team MemberRelationshipSpecialtyStart DateEnd Date Hanna Mathias MD [address] [facility] [place] [address] PCP - General5Team MemberRelationshipSpecialtyStart DateEnd Date Hanna Mathias MD [address] [facility] [place] [address] PCP - General01/27/03Te MemberRelationshipSpecialtyStart DateEnd Date Hanna Mathias MD [address] [place] [address] PCP - GeneralMer[facility]ly [facility]10/30/24Te MemberRelationshipSpecialtyStart DateEnd Date Hanna Mathias MD [address] [facility] [place] [address] PCP - General01/27/03Te [employer]RelationshipSpecialtyStart [facility] Hanna Mathias MD [address] [facility] [place] [address] PCP - General01/27/03 FOR RECORDS PERTAINING TO [...] BE BASED ON THE PRIMARY CLINICAL RECORDS. [facility]. provides no warranty or guarantee of the accuracy or completeness of information in this document.
--- NOTE | 2025-08-24 12:24 | ECG_ITS ---
[facility] Test Date: 2025-08-24 Pat Name: MATTHEW RAMESH Department: Room: - Gender: Male Rn Surgical Pcu: : 1945 Requested By: MENA VELOZ Order Number: [id number] Reading MD: Star Del Rio Measurements Intervals [place] Rate: 58 P: 34 SC: 128 QRS: 54 QRSD: 142 T: 43 QT: 473 QTc: 468 Interpretive Statements SINUS BRADYCARDIA POSSIBLE LEFT ATRIAL ENLARGEMENT [-0.1mV P WAVE IN V1/V2] RIGHT BUNDLE BRANCH BLOCK [120+ ms QRS DURATION, UPRIGHT V1, 40+ ms S IN I/aVL/V4/V5/V6] Compared to ECG 07/04/2019 20:21:21 Sinus tachycardia no longer present Electronically Signed On 08-24-2025 13:33:36 EST by Star Del Rio
[2025-08-24 13:23] LABS: Hematocrit 35.5 % (42.0-54.0); Hemoglobin 12.1 g/dL (14.0-18.0); Immature Granulocytes Abs Auto 0.01 10^3/uL (0.00-0.03); Immature Granulocytes Pct Auto 0.2 % (0.0-0.5); Lymphocytes Absolute Auto 1.1 10^3/uL (1.2-3.8); Mean Corpuscular HGB Conc 34.1 g/dL (29.9-35.2); Mean Corpuscular Hemoglobin 36.1 pg (25.9-34.0); Mean Corpuscular Volume 106.0 fL (80.0-94.0); Platelet Count 184 10^3/uL (150-450); Red Blood Count 3.35 10^6/uL (4.70-6.10); White Blood Count 4.1 10^3/uL (4.0-11.0)
[2025-08-24 13:44] LABS: Anion Gap 9.0; Blood Urea Nitrogen 24.0 mg/dL (7.0-18.0); Calcium 7.0 mg/dL (8.5-10.1); Carbon Dioxide 32.6 mmol/L (21.0-32.0); Chloride 106 mmol/L (98-107); Estimated GFR (African America 52 (>=60 mL/min/1.73m^2); Estimated GFR (Non-African Ame 43 (>=60 mL/min/1.73m^2); Glucose 64 mg/dL (74-106); Potassium 4.6 mmol/L (3.5-5.1); Sodium 143 mmol/L (136-145)
== END 2025-08-24 11:59 | disposition home or self-care (01) ==
LOC: PST 12:00
PROVIDERS: PCP Family Medicine; Visit Provider Surgery
DX: Z01.810 Encounter for preprocedural cardiovascular examination (principal); K40.90 Unilateral inguinal hernia, without obstruction or gangrene, not specified as recurrent
CPT/HCPCS: 36415; 80048; 85025; 93005

== ENCOUNTER 2025-08-31 10:19 | Outpatient (OUT) | payer MEDICARE, OTHER, SELFPAY ==
--- OUTSIDE RECORDS SUMMARY | 2025-08-31 10:29 | XMS_ITS | CCD ---
Author Organization [facility] Care Team Providers Care Tooler Name Role Phone HANNA MATHIAS Primary Care Unavailable SELF, REFERRED Referring Unavailable TRISH CEVALLOS Admitting Unavailable FRANCIS SAVAGE Attending Unavailable [place] Procedure Practitioner Unavailab DANIELA Pennington Surgeon Unavailable [place] Procedure Practitioner Unavailab FRANCIS Cruz Surgeon Unavailable Hanna Mathias MD Primary Care Provider [phone] Hanna Mathias MD Primary Care Provider [phone] Hanna Mathias MD Primary Care Provider [phone] HANNA MATHIAS Admitting Unavailable STEW, [...] Admitting Unavailable STEW, DR FERREIRA Attending Unavailable STWE, DR FERREIRA Primary Care Unavailable STEW, DR [...] HOY, HANNA M Primary Care Unavailable LATRICE IHLARIO Attending Unavailable URIEL GUNTER Referring Unavailable Manny VELOZ Attending Unavailable Hoy, Hanna Referring Unavailable Allergies Allergy ClassificationReported Allergen(s)Allergy TypeDate of OnsetReaction(s) FacilityAminoglycosides (antibiotic) (1 source)TobramycinDrug Smgbplk52-69-0721Fjnen: See CommentsMarietta Memorial Hospital Macrolides (antibiotic) (2 sources)AzithromycinDrug Fsthkvs67-59-4702QkicrpbEeupbkhdq ClinicSulfonamides (antibiotic) (1 source)Sulfonamides (Antibiotic)Drug Cngedpp96-06-9856FoclijaCjshoqdzn Clinic (4 sources)Azithromycin; Translations: [AZITHROMYCIN]Drug Zohejjx97-29-1106Vrd [facility] Repository (3 sources)Sulfonamides (Antibiotic); Translations: [SULFA (SULFONAMIDE ANTIBIOTICS)]Drug allergy (disorder)91-80-3605OvwSum[facility] (20 sources)AzithromycinDrug Ygwknhq88-99-0287Ufkwpiy, Other (See Comments) [facility] (20 sources)Erythromycin; Translations: [ERYTHROMYCIN]Drug Epfwlwd88-60-1336 UnknownMarietta Memorial Hospital (20 sources)Sulfonamides (Antibiotic)Drug Osbxlsv52-81-0183Ghvblte, Other (See Comments)[facility] (20 sources)Tobramycin; Translations: [TOBRAMYCIN]Drug Dpqnygz18-01-9607Ncjml: See Comments, GI DisturbanceMarietta Memorial Hospital (1 source)ErythromycinDrug AllergyWvumedicine [facility] Rep[facility] (3 sources)Neomycin; Translations: [NEOMYCIN]Drug Noqoczd55-68-5030Fmrds (See Comments)[facility] (2 sources)Pseudoephedrine; Translations: [PSEUDOEPHEDRINE]Drug Allergy 37-37-9996Gtxkf (See Comments)[facility] (1 source)Pseudoephedrine; Translations: [Entex]Drug AllergyThe [facility] (1 source)Sulfonamides (Antibiotic); Translations: [sulfa drugs]Propensity to adverse reactions (disorder)[facility] Repository Medications Current Medications MedicationDrug Class(es)DatesSig (Normalized)Sig (Original)dexamethasone 4 mg oral tablet (20 sources)CorticosteroidStart: 10-17-2023 End: 69-81-1741laea 2 tablets by mouth every weekdexAMETHasone (DECADRON) 4 mg tablet TAKE 2 TABLETS BY MOUTH ONCE A WEEK 24 tablet 3 01/28/2024 ActiveStart: 06-02-2021 End: 38-63-8143lavr 2 tablets by mouth every weekdexAMETHasone (DECADRON) 4 mg tablet TAKE 2 TABLETS BY MOUTH ONCE A WEEK 24 tablet 3 10/16/2022 ActiveComment on above:TAKE 2 TABLETS BY MOUTH ONCE A WEEKempagliflozin 10 mg oral tablet (20 sources)Sodium-Glucose Cotransporter 2 InhibitorStart: 73-74-4815rnnx 1 tablet by mouth once dailyJARDIANCE 10 mg tablet Take 10 mg by mouth once daily. 08/21/2022 ActiveComment on above:Take 10 mg by mouth once daily.fenofibrate 145 mg oral tablet (20 sources)Peroxisome Proliferator Receptor alpha AgonistStart: 32-60-6323lfmz 1 tablet by mouth once dailyfenofibrate nanocrystallized (TRICOR) 145 mg tablet Take 145 mg by mouth once daily. 10/29/2017 ActiveComment on above:Take 145 mg by mouth once daily. 30 actuat fluticasone furoate 0.1 mg/actuat / vilanterol 0.025 mg/actuat dry powder inhaler (20 sources)Corticosteroid, beta2-Adrenergic AgonistStart: 77-72-8022AFOJ ELLIPTA 100-25 mcg/dose inhaler 1 Inhalation once daily. 08/05/2018 Active Comment on above:1 Inhalation once daily. glyBURIDE 6 mg oral tablet (20 sources)SulfonylureaStart: 74-37-6126bgyMWPMJV micronized (GLYNASE) 6 mg tablet 02/15/2023 ActiveStart: 75-11-6517ondAYQXXF micronized (GLYNASE) 3 mg tabletlenalidomide 5 mg oral capsule (20 sources)Thalidomide AnalogStart: 01-19-2025 End: 01-22-7823schccfpnmxtp (REVLIMID) 5 mg capsule Take 1 capsule by mouth daily for 21 days on and 7 days off. 21 capsule 02/27/2025 ActiveStart: 10-17-2023 End: 05-03-4410boucntuwxujd (REVLIMID) 5 mg capsule Take 1 capsule by mouth daily for 21 days on and 7 days off. 21 capsule 12/11/2024 1:22 PM EDT 12/11/2024 ActiveStart: 06-18-2023 End: 01-09-0168bnpiryaywyyh (REVLIMID) 5 mg capsule Take 1 capsule by mouth daily for 21 days on and 7 days off. 21 capsule 0 08/20/2023 ActiveStart: 45-95-4201raxhflchwcgx (REVLIMID) 5 mg capsule Take 1 capsule by mouth daily for 21 days on and 7 days off. 21 capsule 0 05/11/2023 ActiveStart: 03-06-2023 End: 11-76-4969bxpenmdorkcf (REVLIMID) 5 mg capsule Take 1 capsule by mouth daily for 21 days on and 7 days off. 21 capsule 0 04/18/2023 ActiveStart: 07-20-2022 End: 20-63-5220qshvncueqpyj (REVLIMID) 5 mg capsule Take 1 capsule by mouth daily for 21 days on and 7 days off. 21 capsule 0 02/05/2023 ActiveStart: 11-28-2021 End: 12-67-2468cdgrsxyctdhp (REVLIMID) 5 mg capsule Take 1 capsule by mouth daily for 21 days on and 7 days off. 21 capsule 0 06/17/2022 ActiveComment on above:Take 1 capsule by mouth daily for 21 days on and 7 days off.liothyronine sodium 0.005 mg oral tablet (20 sources)l-TriiodothyronineStart: 19-76-4637bqgi 2 tablets by mouth in the morningliothyronine (CYTOMEL) 5 MCG tablet Take 2 tablets (10 mcg total) by mouth in the morning. 07/27/2024 ActiveStart: 78-78-3249jpzbrwpunkzr (CYTOMEL) 5 mcg tablet 08/12/2021 Activemeloxicam 15 mg oral tablet (20 sources)Nonsteroidal Anti-inflammatory DrugStart: 88-89-6893WLOQJOBEK 15 mg tablet Take 15 mg by mouth as needed. 07/30/2013 ActiveComment on above:Take 15 mg by mouth as needed.metFORMIN hydrochloride 500 mg oral tablet (20 sources)BiguanideStart: 11-25-5596eyux 2 tablets by mouth once daily at [...] 10 mg oral tablet (20 sources)Opioid AgonistStart: 76-04-2219baiJAVXHM IR (ROXICODONE) 10 mg tab 10 mg [...] suspension (20 sources)Aminoglycoside Antibacterial, CorticosteroidStart: 08-01-2019 End: 79-14-8159kcsl 2 drop(s) into the eye(s) four times dailytobramycin- dexamethasone (TOBRADEX) ophthalmic suspension INSTILL 2 DROPS INTO AFFECTED EYE 4 TIMESDAILY 0 08/01/2019 11/27/2023 Discontinued (Discontinued by another Health Care Provider)Comment on above:INSTILL 2 DROPS INTO AFFECTED EYE 4 TIMES DAILYdexlansoprazole 60 mg delayed release oral capsule (20 sources)Proton Pump InhibitorStart: 09-20-2021 End: 02-10-9923pgjw 1 capsule by mouth once dailyDEXILANT 60 mg CpDM Take 1 capsule by mouth once daily. 0 09/20/2021 05/09/2024 DiscontinuedComment on above:Take 1 capsule by mouth once daily.hydrocortisone 10 mg/ml / neomycin 3.5 mg/ml / polymyxin b 61893 unt/ml otic solution (20 sources)Aminoglycoside Antibacterial, Polymyxin-class Antibacterial, CorticosteroidStart: 05-29-2019 End: 91-33-5031eynvmchm-polymyxin-hydrocortisone (CORTISPORIN) otic solution INSTILL 3 4 DROPS IN AFFECTED EAR FOUR TIMES DAILY 1 05/29/2019 11/27/2023 Discontinued (Discontinued by Patient)Comment on above:INSTILL 3 4 DROPS IN AFFECTED EAR FOUR TIMES DAILYlevothyroxine sodium 0.05 mg oral tablet (20 sources)l-ThyroxineStart: 12-31-2014 End: 32-11-8482vtwd 1 tablet by mouth once dailylevothyroxine (SYNTHROID) 50 mcg tablet Take 50 mcg by mouth once daily. 0 12/31/2014 05/09/2024 Discontinued Comment on above:Take 50 mcg by mouth once daily. metroNIDAZOLE 500 mg oral tablet (20 sources)Nitroimidazole AntimicrobialStart: 08-15-2021 End: 82-34-9975mxtdgGEVKFNVU (FLAGYL) 500 mg tabletmoxifloxacin (1 source)Quinolone AntimicrobialStart: 10-30-2024 End: 78-00-5373asqsrzrbkjxp HCl (MOXIFLOXACIN 0.5%-PREDNISOLONE 1%-BROMFENAC 0.09% DROPS - BUDERER ) Administer 1 drop to the right eye in the morning and 1 drop before bedtime. Do all this for 30 days. One drop twice a day to operative eye for one week, then daily for three weeks.. 10/30/2024 11/20/2024 Discontin uedpamidronate 30 mg in NaCl 0.9% 250 mL (AREDIA) (2 sources)Start: 02-17-2025 End: 59-75-593790 mg, INTRAVENOUS, at 125 mL/hr, Administer over 2 Hours, ONCE, 1 dose, On Sun02/17/25 at 1200, APPROXIMATE TOTAL VOLUME____mL - 24 HOUR EXP: 02/18/2025 1210 RT Hazardous Potential Reproductive RiskDrug: Use appropriate PPE.Start: 02-26-2024 End: 74-52-7830neiexbmqvln 30 mg in NaCl 0.9% 250 mL (AREDIA)pioglitazone 30 mg oral tablet (20 sources)Peroxisome Proliferator Receptor alpha Agonist, Peroxisome Proliferator Receptor gamma Agonist, ThiazolidinedioneStart: 08-03-2021 End: 43-80-0324hviwkngyrmvt (ACTOS) 30 mg tablet End: 97-18-9409qkyk 1 tablet by mouth in the morningpioglitazone (ACTOS) 15 mg tablet Take 1 tablet (15 mg total) by mouth in the morning. 11/20/2024 Di scontinuedvancomycin 250 mg oral capsule (20 sources)Glycopeptide AntibacterialStart: 08-15-2021 End: 09-25-0704viuszsnqyp (VANCOCIN) 250 mg capsule 0 08/15/2021 11/27/2023 Discontinued (Discontinued by another Health Care Provider) Problems Active Problems Problem ClassificationProblemDateDocumented DateEpisodic/ChronicCataract (1 source)CataractOnset: 76-50-1254Ikqkiaz kidney disease (20 sources)Chronic kidney disease stage 3; Translations: [Stage 3 chronic kidney disease, unspecified whether stage 3a or 3b CKD]Onset: 03-06-2023 64-05-6665CzsqfnoRjsyrbbq mellitus without complication (20 sources)Diabetes mellitus; Translations: [Type 2 diabetes mellitus without complications]Onset: 935560-89-1989VazjmfuJhdcryxkp of lipid metabolism (1 source)Hyperlipidemia, unspecified; Translations: [HYPERLIPIDEMIA UNSPECIFIED]Onset: 15-46-2459LcuecpmMlzunjnf myeloma (20 sources)Multiple myeloma; Translations: [Multiple myeloma not having achieved remission]Onset: 657528-11-9156GpymyfoHaixf bone disease and musculoskeletal deformities (20 sources)Osteitis deformans; 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]Onset: 230054-40-9933OoztcndEqyca bone disease and musculoskeletal deformities (1 source)Osteitis deformans of unspecified bone; 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]Onset: 44-94-6491Cwozhyl Past or Other Problems Problem ClassificationProblemDateDocumented DateEpisodic/ChronicAbdominal hernia (20 sources)Left inguinal hernia ; Translations: [Unilateral inguinal hernia, without obstruction or gangrene, not specified as recurrent]Onset: 10-20-2015 70-76-7559LswxjtncFitv and rectal conditions (20 sources)Perineal irritation; Translations: [Other specified diseases of anus and rectum]Onset: 045615-52-7914KbqxhcrmAijvubfk mellitus without complication (1 source)Other abnormal glucose; Translations: [OTHER ABNORMAL GLUCOSE]Onset: 79-04-6579VntbwlgoWtpmktsdjasjlsxu hemorrhage (20 sources)Hemorrhage of rectum and anus; Translations: [Hemorrhage of anus and rectum]Onset: 744554-88-3464HpyhaqxnDpahhno and fatigue (5 sources)Other fatigue; Translations: [OTHER FATIGUE]Onset: 15-00-7324Wxsufplu Other aftercare (20 sources)Long-term current use of systemic steroid; 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]Onset: 851897-34-5685MuoekxfgGyjxn connective tissue disease (1 source)Abnormal posture; Translations: [ABNORMAL POSTURE]Onset: 03-28-2022 EpisodicOther connective tissue disease (1 source)Pain in right hand; Translations: [PAIN IN RIGHT HAND]Onset: 87-08-6832InfqelbnQrrwl gastrointestinal disorders (20 sources)H/O: ulcerative colitis; Translations: [Personal history of other diseases of the digestive system]Onset: 358193-32-8694QmhxsuipGtahm gastrointestinal disorders (20 sources)Constipation; Translations: [Outlet dysfunction constipation]Onset: 660055-64-2462WchvogbuDouax screening for suspected conditions (not mental disorders or infectious disease) (20 sources)Raised prostate specific antigen; Translations: [Elevated prostate specific antigen [PSA]]Onset: 087574-38-0604JuwggknzXdecwooc codes; unclassified (4 sources)Acquired absence of other specified parts of digestive tract; Translations: [ACQ ABSENCE OTH PART DIGESTV TRACT]Onset: 54-39-4963Xxbnvcqh Screening and history of mental health and substance abuse codes (20 sources)Ex-smoker; Translations: [Personal history of nicotine dependence] Onset: 496627-73-0069HymvgqktNfdnozuzpiv; intervertebral disc disorders; other back problems (4 sources)Radiculopathy, cervical region; Translations: [RADICULOPATHY CERVICAL REGION]Onset: 14-82-0260RqditvyvBsbhozzcjsuz (1 source)Preprocedural examination ghjs65-14-3842 Results Test NameValueInterpretationReference RangeFacilityCBC W Auto Differential panel (Bld)on 45-78-2393Araylchhb (Bld) [#/Vol]0.08 10*3/uLNINFMarietta Memorial Hospital Basophils/100 WBC (Bld)1.5 %[facility] HospitalDifferential cell count method Nom (Bld)AutoCleveland ClinicEosinophils (Bld) [#/Vol]0.38 10*3/uLNINFCleProMedica Memorial HospitalEosinophils/100 WBC (Bld)6.9 %[facility] HospitalErythrocyte distribution width (RBC) [Ratio]14.5 %11.5 - 15.0 %[facility] HospitalHematocrit (Bld) [Volume fraction]44.2 %39.0 - 51.0 %[facility] HospitalHemoglobin (Bld) [Mass/Vol]15.4 g/dL 13.0 - 17.0 g/dLMarietta Memorial HospitalImmature granulocytes (Bld) [#/Vol]0.04 10*3/uL NINFCleveland ClinicImmature granulocytes/100 WBC (Bld)0.7 %[facility] Interpretation and review of laboratory resultsAbnormalCUniversity Hospitals [facility]huja [facility] Lymphocytes (Bld) [#/Vol]1.09 10*3/uLMarietta Memorial HospitalLymphocytes/100 WBC (Bld) 19.8 %[facility] HospitalH (RBC) [Entitic mass]34.8 avAvki10.0 - 34.0 pgCSelect Medical OhioHealth Rehabilitation HospitalHC (RBC) [Mass/Vol]34.8 g/dL30.5 - 36.0 g/dLOhioHealth Doctors HospitalV (RBC) [Entitic vol]100 fL80.0 - 100.0 fLCUniversity Hospitals Ahuja Medical CenterMonocytes (Bld) [#/Vol]0.8 10*3/NINFMarietta Memorial HospitalMonocytes/100 WBC (Bld)14.5 %[facility] Neutrophils (Bld) [#/Vol]3.12 10*3/uLMarietta Memorial HospitalNeutrophils/100 WBC (Bld) 56.6 %[facility] HospitalNucleated RBC (Bld) [#/Vol]NINFCUniversity Hospitals Ahuja Medical CenterNucleated RBC/100 WBC (Bld) [Ratio]0 %/100 WBCMarietta Memorial HospitalPlatelet mean volume (Bld) [Entitic vol]10.6 fL9.0 - 12.7 fLCUniversity Hospitals Ahuja Medical CenterPlatelets (Bld) [#/Vol]217 10*3/uLMarietta Memorial HospitalRBC (Bld) [#/Vol]4.42 10*6/uL4.20 - 6.00 m/[facility] Cleveland-FairhillWBC (Bld) [#/Vol]5.51 10*3/[facility] ClinicBasophils (Bld) [#/Vol]0.08 10*3/Normal<0.11CCleveland Clinic [facility] on above: Order Comment: Specimen Type: BLOOD SPECIMENOrdering Facility: [facility] Address:[address] [place] [address]Tnazoxyaz By: #### 43062- 8 ####[facility] LABCLIA [id number] [place], [place] [address]Wxaubvwic/100 WBC (Bld)1.5 %NormalUniversity Hospitals Geauga Medical Center on above:Order Comment: Specimen Type: BLOOD SPECIMENOrdering Facility: [facility] Address:[address] [place], [place] [address]Performed By: #### 98879-7 ####[facility] LABIA [id number] [place], [place] [address]Mfkgpafjiehs cell count method Nom (Bld)AutoNormalClevelCleveland Clinic [facility] on above:Order Comment: Specimen Type: BLOOD SPECIMENOrdering Facility: [facility] Address:[address] [place], [place] [address]Performed By: #### 59430-4 ####[facility] LABIA [id number] [place], [place] [address]Mxmcajpgbjt (Bld) [#/Vol]0.38 10*3/uLNormal<0.46[facility] on above:Order Comment: Specimen Type: BLOOD SPECIMENOrdering Facility: [facility] Address:[address] [place], [place] [address]Performed By: #### 44215-6 ####[facility] [id number] [place], [place] [address]Dtvufaebhuv/100 WBC (Bld)6.9 %NormalUniversity Hospitals Geauga Medical Center on above:Order Comment: Specimen Type: BLOOD SPECIMENOrdering Facility: [facility] Address:[address] [place], [place] [address]Performed By: #### 52976-3 ####[facility] LABIA [id number] [place], [place] [address]Kghupmobdsd distribution width (RBC) [Ratio]14.5 %Normal 11.5-15.0[facility] on above:Order Comment: Specimen Type: BLOOD SPECIMENOrdering Facility: [facility] Address:[address] [place], [place] [address]Performed By: #### 08464-4 ####[facility] LABIA [id number] [place] [address] Hematocrit (Bld) [Volume fraction]44.2 %Dkevzr36.0-51.0[facility] on above:Order Comment: Specimen Type: BLOOD SPECIMENOrdering Facility: [facility] Address:[address] [place], [place] [address]Performed By: #### 90831-7 ####[facility] LABIA [id number] [place], [place] [address]Bdafdvrthn (Bld) [Mass/Vol]15.4 g/dIEehpmw69.0-17.0[facility] on above:Order Comment: Specimen Type: BLOOD SPECIMENOrdering Facility: [facility] Address:[address] [place], [place] [address]Performed By: #### 54532-9 ####[facility] LABIA [id number] [place], [place] [address]Qgvjcpmr granulocytes (Bld) [#/Vol]0.04 10*3/uLNormal <0.10[facility] on above:Order Comment: Specimen Type: BLOOD SPECIMENOrdering Facility: [facility] Address:[address] [place], [place] [address]Performed By: #### 57007-3 ####[facility] LABIA [id number] [place], [place] [address]Tysqrhmb granulocytes/100 WBC (Bld)0.7 %NormalUniversity Hospitals Geauga Medical Center on above: Order Comment: Specimen Type: BLOOD SPECIMENOrdering Facility: [facility] Address:[address] [place], [place] [address]Performed By: #### 52839- 8 ####[facility] LABIA [id number] [place], [place] [address]Unarubbjbdn (Bld) [#/Vol]1.09 10*3/uLNormal1.00-4.00 [facility] on above:Order Comment: Specimen Type: BLOOD SPECIMENOrdering Facility: [facility] Address:[address] [place], [place] [address]Performed By: #### 43731-0 ####[facility] LABIA [id number] [place], [place] [address]Qmsetrizftn/100 WBC (Bld)19.8 %NormalUniversity Hospitals Geauga Medical Center on above:Order Comment: Specimen Type: BLOOD SPECIMENOrdering Facility: [facility] Address:[address] [place], [place] [address]Performed By: #### 66238-0 ####[facility] LABCLIA [id number] [place], [place] [address]FPC (RBC) [Entitic mass]34.8 fvYupc80.0-34.0[facility] on above:Order Comment: Specimen Type: BLOOD SPECIMENOrdering Facility: [facility] Address:[address] [place], [place] [address]Performed By: #### 46539-8 ####[facility] LABIA [id number] [place], [place] [address]IYDH (RBC) [Mass/Vol]34.8 g/kWTldymj48.5-36.0[facility] on above: Order Comment: Specimen Type: BLOOD SPECIMENOrdering Facility: [facility] Address:[address] [place], [place] [address]Performed By: #### 18054- 8 ####[facility] LABCLIA [id number] [place], [place] [address]ALG (RBC) [Entitic vol]100.0 kXGozhfa38.0-100.0[facility] on above:Order Comment: Specimen Type: BLOOD SPECIMENOrdering Facility: [facility] Address:[address] [place], [place] [address]Performed By: #### 59457-9 ####[facility] LABIA [id number] [place], [place] [address]Reevhweky (Bld) [#/Vol]0.80 10*3/uLNormal<0.87[facility] on above:Order Comment: Specimen Type: BLOOD SPECIMENOrdering Facility: [facility] Address:[address] [place], [place] [address]Performed By: #### 01161- 8 ####[facility] LABCLIA [id number] [place], [place] [address]Dhyhgteiy/100 WBC (Bld)14.5 %NormalUniversity Hospitals Geauga Medical Center on above:Order Comment: Specimen Type: BLOOD SPECIMENOrdering Facility: [facility] Address:[address] [place], [place] [address]Performed By: #### 54162-6 ####[facility] LABCLIA [id number] [place], [place] [address]Tkplpitkyey (Bld) [#/Vol]3.12 10*3/uLNormal1.45-7.50[facility] on above:Order Comment: Specimen Type: BLOOD SPECIMENOrdering Facility: [facility] Address:[address] [place], [place] [address]Performed By: #### 42711-6 ####[facility] LABCLIA [id number] [place], [place] [address]Aynqleolhrg/100 WBC (Bld)56.6 %NormalUniversity Hospitals Geauga Medical Center on above:Order Comment: Specimen Type: BLOOD SPECIMENOrdering Facility: [facility] Address:[address] [place], [place] [address]Performed By: #### 53814-0 ####[facility] LABIA [id number] [place], [place] [address]Jpjvfiqtm RBC (Bld) [#/Vol] 10*3/uLNormal<0.01[facility] on above:Order Comment: Specimen Type: BLOOD SPECIMENOrdering Facility: [facility] Address:[address] [place], [place] [address]Performed By: #### 70459-6 ####[facility] LABCLIA [id number] [place], [place] [address]Arziazwkx RBC/100 WBC (Bld) [Ratio]0.0 /100 WBCNormal [facility] on above:Order Comment: Specimen Type: BLOOD SPECIMENOrdering Facility: [facility] Address:[address] [place], [place] [address]Performed By: #### 16416-9 ####[facility] LABCLIA [id number] [place], [place] [address]Qqisgxok mean volume (Bld) [Entitic vol]10.6 fLNormal9.0-12.7CCleveland Clinic [facility] on above:Order Comment: Specimen Type: BLOOD SPECIMENOrdering Facility: [facility] Address:[address] [place] [address] Performed By: #### 15981-7 ####[facility] LABCLIA [id number] [place], [place] [address]Ruipszzmj (Bld) [#/Vol]217 10*3/cDKiyzxs976-106VyjjszhmdUniversity Hospitals Geauga Medical Center on above:Order Comment: Specimen Type: BLOOD SPECIMENOrdering Facility: [facility] Address:[address] [place], [place] [address]Performed By: #### 70752-8 ####[facility] LABCLIA [id number] [place], [place] [address]JBE (Bld) [#/Vol]4.42 10*6/uLNormal4.20-6.00[facility] on above:Order Comment: Specimen Type: BLOOD SPECIMENOrdering Facility: [facility] Address:[address] [place], [place] [address]Performed By: #### 89165-5 ####[facility] LABIA [id number] [place], [place] [address]NDV (Bld) [#/Vol]5.51 10*3/uLNormal3.70-1100[facility] on above: Order Comment: Specimen Type: BLOOD SPECIMENOrdering Facility: [facility] Address:[address] [place], [place] [address]Beqsjbrwv By: #### 97004- 8 ####[facility] LABCLIA [id number] [place], [place] [address]EBQNQPci 28-25-0204BNOUVTEhzfu (SP) Office ([place]) ZACH MANUEL ([id number]) 1945 M Date Time Provider Department 02/17/25 11:20 AM URIEL GUNTER During your visit today, we recorded the following information about you: Temperature Pulse Respiration Blood pressure 97.2 degrees 70/minute 16/minute 129/73 Weight Height 83 kg 1.753 m Uriel Gunter MD 02/17/2025 8:34 PM Signed PATIENT NAME: Zach Manuel DATE: 02/17/2025 PRIMARY CARE PHYSICIAN: Dr. Hanna Mathias OTHER PHYSICIANS: Dr. eLwis, Dr. Martinez Portions of this encounter note [...] mellitus (HCC) Hyperlipidemia Monoclonal gammopathy 11/2002 IgG [place] Multiple myeloma (HCC) 2002 Ulcerative colitis (HCC) [...] and chronic inflammation RADIOLOGY/ (more content not included)...NormalSt. John Of God Hospital Comprehensive metabolic 2000 panelon 63-94-4124Xpygyme [Mass/Vol]4.2 g/dL3.9 - 4.9 g/dLIndependence ClinicALP [Catalytic activity/Vol]95 U/L38 - 113 U/LCleveland [...] 11:40 AM EDT.Bilirubin [Mass/Vol]1.7 mg/dLHigh0.2 - 1.3 mg/dLIndependence ClinicCalcium [Mass/Vol]8.5 mg/dL8.5 - 10.2 mg/dLMarietta Memorial HospitalComment on above:Corrected result: Previously reported as 8.3 mg/dL on 02/17/2025 at 11:40 AM EDT.Chloride [Moles/Vol]101 mmol/L98 - 107 mmol/LCleveland ClinicCO2 [Moles/Vol]26 mmol/L22 - 30 mmol/LCleveland ClinicCreatinine [Mass/Vol]1.6 mg/dLHigh0.73 - 1.22 mg/dL [facility] Memorial HospitalGFR/1.73 sq M.predicted among non-blacks MDRD (S/P/Bld) [...] eGFRmay not accurately reflect actual GFR.Glucose [Mass/Vol]185 mg/zWLtmw03 - 99 mg/dLMarietta Memorial HospitalComment on above:The [place] Diabetes Association (ADA) provides guidance for cutoff [...] Standards of Medical Care in Diabetes 2016, [place] Diabetes Association. Diabetes Care. 2016.39(Suppl 1). Corrected result: Previously reported as 189 mg/dL on 02/17/2025 at 11:40 AM EDT. Interpretation and review of laboratory resultsAbnormalCleveland ClinicPotassium [Moles/Vol]4.6 mmol/L3.7 - 5.1 mmol/LCleveland ClinicProtein [Mass/Vol]7 g/dL 6.3 - 8.0 g/dLMarietta Memorial HospitalComment on above:Corrected result: Previously reported as 6.6 g/dL on 02/17/2025 at 11:40 AM EDT.Sodium [Moles/Vol]138 mmol/L 136 - 144 mmol/LCleveland ClinicUrea nitrogen [Mass/Vol]23 mg/dL9 - 24 mg/dL [facility] HospitalComment on above:Corrected result: Previously reported as 25 mg/dL on 02/17/2025 at 11:40 AM EDT.Independence ClinicAlbumin [Mass/Vol]4.2 g/dL Normal3.9-4.9ClevelECU Health Beaufort HospitalComment on above:Order Comment: Specimen Type: BLOOD SPECIMENOrdering Facility: [facility] Address:[address] [place], [place] [address]Performed By: #### 80565-8 ####[facility] LABIA [id number] [place] [address] [place] AMERICAALP [Catalytic activity/Vol]95 U/HTbshkq03-751PntzrsxqwUniversity Hospitals Geauga Medical Center on above:Order Comment: Specimen Type: BLOOD SPECIMENOrdering Facility: [facility] Address:[address] [place], [place] [address]Result Comment: Corrected result: Previously reported as 99 U/L on 02/17/2025 at 11:40 AM EDT.Performed By: #### 56278-5 ####[facility] LABIA [id number] [place] [address] [place] AMERICAALT [Catalytic activity/Vol]15 U/SPvkzio59-21TnoqbsxnoUniversity Hospitals Geauga Medical Center on above:Order Comment: Specimen Type: BLOOD SPECIMENOrdering Facility: [facility] Address:[address] [place], [place] [address]Result Comment: Corrected result: Previously reported as 12 U/L on 02/17/2025 at 11:40 AM EDT.Performed By: #### 56894-1 ####[facility] LABCLIA [id number] [place] [address] [place] AMERICAAnion gap [Moles/Vol]11 mmol/LNormal8-15[facility] on above:Order Comment: Specimen Type: BLOOD SPECIMENOrdering Facility: [facility] Address:[address] [place], [place] [address]Performed By: #### 55334-2 ####[facility] LABIA [id number] [place] [address] [place] AST [Catalytic activity/Vol]22 U/XXadphb23-02RytbefchtUniversity Hospitals Geauga Medical Center on above:Order Comment: Specimen Type: BLOOD SPECIMENOrdering Facility: [facility] Address:[address] [place], [place] [address]Result Comment: Corrected result: Previously reported as 15 U/L on 02/17/2025 at 11:40 AM EDT.Performed By: #### 42584-1 ####[facility] LABIA [id number] [place] [address] [place] Bilirubin [Mass/Vol]1.7 mg/dLHigh0.2-1.3CCleveland Clinic [facility] on above:Order Comment: Specimen Type: BLOOD SPECIMENOrdering Facility: [facility] Address:[address] [place], [place] [address]Performed By: #### 33078-7 ####[facility] LABIA [id number] [place] [address] [place] AMERICACalcium [Mass/Vol]8.5 mg/dLNormal8.5-10.2ClevelCleveland Clinic [facility] on above:Order Comment: Specimen Type: BLOOD SPECIMENOrdering Facility: [facility] Address:[address] [place], [place] [address]Result Comment: Corrected result: Previously reported as 8.3 mg/dL on 02/17/2025 at 11:40 AM EDT.Performed By: #### 34109-8 ####[facility] LABCLIA [id number] [place] [id number] [place] AMERICAChloride [Moles/Vol] 101 mmol/BVvpxfz95-717VpeelrxdvUniversity Hospitals Geauga Medical Center on above:Order Comment: Specimen Type: BLOOD SPECIMENOrdering Facility: [facility] Address:[address] [place], [place] [address]Performed By: #### 28402-1 ####[facility] LABCLIA [id number] [place] [address] [place] AMERICACO2 [Moles/Vol]26 mmol/LNormal 22-30[facility] on above:Order Comment: Specimen Type: BLOOD SPECIMENOrdering Facility: [facility] Address:[address] [place], [place] [address]Performed By: #### 71982-0 ####[facility] LABCLIA [id number] [place] [address] [place] AMERICACreatinine [Mass/Vol]1.60 mg/dLHigh0.73-1.22[facility] on above:Order Comment: Specimen Type: BLOOD SPECIMENOrdering Facility: [facility] Address:[address] [place], [place] [address]Performed By: #### 01144-9 ####[facility] LABIA [id number] [place] [address] [place] Creatinine and Glomerular filtration rate.predicted panel (S/P/Bld)44 mL/min/1.73m???Low>=60[facility] on above:Order Comment: Specimen Type: BLOOD SPECIMENOrdering Facility: [facility] Address:[address] [place], [place] [address]Result Comment: Estimated Glomerular Filtration Rate (eGFR) is calculated using the 2020 CKD-EPI creatinine equation. This equation utilizes serum creatinine, sex, and age as parameters. The creatinine assay has traceable calibration to isotope dilution-mass spectrometry. Refer to KDIGO guidelines for clinical interpretation. In patients with unstable renal function, e.g. those with acute kidney injury, the eGFR may not accurately reflect actual GFR.Performed By: #### 47355-1 ####[facility] LABCLIA [id number] [address] [address] [place] AMERICAGlucose [Mass/Vol]185 mg/oDZfsw58-99YmalorlpiUniversity Hospitals Geauga Medical Center on above:Order Comment: Specimen Type: BLOOD SPECIMENOrdering Facility: [facility] Address:[address] [place], [place] [address]Result Comment: The [place] Diabetes Association (ADA) provides guidance for cutoff [...] Standards of Medical Care in Diabetes 2016, [place] Diabetes Association. Diabetes Care. 2016.39(Suppl 1). Corrected result: Previously reported as 189 mg/dL on 02/17/2025 at 11:40 AM EDT. Performed By: #### 51163-5 ####[facility] LABCLIA [id number] [address] [address] [place] Potassium [Moles/Vol]4.6 mmol/LNormal3.7-5.1CCleveland Clinic [facility] on above:Order Comment: Specimen Type: BLOOD SPECIMENOrdering Facility: [facility] Address:[address] [place] [id number] By: #### 68822-0 ####[facility] LABIA [id number] [address] [address] [place] AMERICAProtein [Mass/Vol]7.0 g/dLNormal6.3-8.0[facility] on above:Order Comment: Specimen Type: BLOOD SPECIMENOrdering Facility: [facility] Address:[address] [place], [place] [address]Result Comment: Corrected result: Previously reported as 6.6 g/dL on 02/17/2025 at 11:40 AM EDT.Performed By: #### 76125-8 ####[facility] LABCLIA [id number] [address] STATES OF [facility] BRYAN HOSPITALSodium [Moles/Vol]138 mmol/OUmzahz938-705YzmolfwapUniversity Hospitals Geauga Medical Center on above:Order Comment: Specimen Type: BLOOD SPECIMENOrdering Facility: [facility] Address:[address] [place], [place] [address]Performed By: #### 47439-4 ####[facility]ITALIA [id number] [address] STATES OF AMERICAUrea nitrogen [Mass/Vol]23 mg/dL Normal9-24[facility] on above:Order Comment: Specimen Type: BLOOD SPECIMENOrdering Facility: [facility] Address:[address] [place], [place] [address]Result Comment: Corrected result: Previously reported as 25 mg/dL on 02/17/2025 at 11:40 AM EDT.Performed By: #### 15395-8 ####[facility] LABIA [id number] [place] [address] [place] AMERICAIMMUNOFIXATION SCREEN, SERUMon 63-93-8666NFRXHWEEMHBRHX (MPA)Atypical restricted bands are present in the IgG and kappa regions. Consistent with IgG kappa monoclonal gammopathy.Normal [facility] on above:Order Comment: Specimen Type: BLOOD SPECIMENOrdering Facility: [facility] Address:[address] [place], [place] [address]Performed By: #### IFESC ####[facility] LABCLIA [id number] [place] [address] [place] [facility] BRYAN HOSPITALMPA RESULTM protein is present.AbnormalNo M protein is identified. [facility] on above:Order Comment: Specimen Type: BLOOD SPECIMENOrdering Facility: [facility] Address:[address] [place], [place] [address]Performed By: #### IFESC ####[facility] LABIA [id number] [address] HILL STREETSTAFF REVIEW ([facility])Reviewed by Donaldo Rivas MD, Ph.D ([id number])Normal [facility] on above:Order Comment: Specimen Type: BLOOD SPECIMENOrdering Facility: [facility] Address:[address] [place], [place] [address]Performed By: #### IFESC ####[facility]ITALIA [id number] [place] [address] [place] AMERICAIMMUNOGLOBULINS,IGG,IGA,IGMon 42-55-2748WdG [Mass/Vol]118 mg/dLNormal 70-400[facility] on above:Order Comment: Specimen Type: BLOOD SPECIMENOrdering Facility: [facility] Address:[address] [place], [place] [address]Performed By: #### SERIMM ####[facility] LABCLIA [id number] [place] [address] [place] AMERICAIgG [Mass/Vol]1245 mg/sCKyimco596-9105ZffifhzcuUniversity Hospitals Geauga Medical Center on above:Order Comment: Specimen Type: BLOOD SPECIMENOrdering Facility: [facility] Address:[address] [place], [place] [address]Performed By: #### SERIMM ####[facility] LABCLIA [id number] [place] [address] [place] IgM [Mass/Vol]21 mg/bITqs56-844PwyxzcctaUniversity Hospitals Geauga Medical Center on above:Order Comment: Specimen Type: BLOOD SPECIMENOrdering Facility: [facility] Address:[address] [place], [place] [address]Performed By: #### SERIMM ####[facility] [id number] [place] [address] [place] AMERICAKAPPA/DANIELS,FREE,SERon 02-17-2025 Immunoglobulin light chains.kappa.free (S) [Mass/Vol]37.4 mg/LHigh3.3-19.4 [facility] on above:Order Comment: Specimen Type: BLOOD SPECIMENOrdering Facility: [facility] Address:[address] [place], [place] [address]Result Comment: Rarely, increased serum free light chains levels may not be detected or accurately quantified due to prozone phenomenon or in high viscosity samples using this immunoturbidimetric assay. Correlation with other laboratory results and clinical findings is recommended. The [place] Free Light Chain was performed using the Binding Site Optilite immunoturbidimetric method. Result obtained with different assay methods or kits cannot be used interchangeably.Performed By: #### KLFRS ####[facility] [id number] [place] [address] [place] AMERICAImmunoglobulin light chains.kappa/Immunoglobulin light chains.lambda (S) [Mass ratio]1.57Cwrvlg2.26-1.65[facility] Comment on above:Order Comment: Specimen Type: BLOOD SPECIMENOrdering Facility: [facility] Address:[address] [place] [address] Performed By: #### KLFRS ####[facility]IA [id number] [place] [address] [place] AMERICAImmunoglobulin light chains.lambda.free [Mass/Vol]22.7 mg/LNormal5.7-26.3CCleveland Clinic [facility] on above:Order Comment: Specimen Type: BLOOD SPECIMENOrdering Facility: [facility] Address:[address] [place], [place] [address]Result Comment: Rarely, increased serum free light chains [...] cannot be used interchangeably.Performed By: #### KLFRS ####[facility] [id number] [address]REETPROTEIN ELECTROPHORESIS SERUM WITH TOÑITO (P)on 02-17-2025 Albumin [Mass/Vol]4.01 g/dLNormal3.43-5.41[facility] on above:Order Comment: Specimen Type: BLOOD SPECIMENOrdering Facility: [facility] Address:[address] [place], [place] [address]Performed By: #### [id number] ####[facility] [id number] [address]Alpha 1 globulin Elph [Mass/Vol]0.23 g/dLNormal0.18-0.43[facility] on above: Order Comment: Specimen Type: BLOOD SPECIMENOrdering Facility: [facility] Address:[address] [place], [place] [address]Performed By: #### [id number] ####[facility] [id number] [address] OF AMERICAAlpha 2 globulin Elph [Mass/Vol]0.66 g/dLNormal0.42-0.98[facility] on above: Order Comment: Specimen Type: BLOOD SPECIMENOrdering Facility: [facility] Address:[address] [place], [place] [address]Performed By: #### [id number] ####[facility] LABIA [id number] [address] OF AMERICABeta globulin Elph [Mass/Vol]0.73 g/dLNormal0.61-1.17[facility] on above: Order Comment: Specimen Type: BLOOD SPECIMENOrdering Facility: [facility] Address:[address] [place], [place] [address]Performed By: #### [id number] ####[facility] LABCLIA [id number] [place] [address] [place] AMERICACOMMENT (SERUM PROT ELECTRO)Monoclonal Protein analysis (immunofixation) is not indicated.Normal [facility] on above:Order Comment: Specimen Type: BLOOD SPECIMENOrdering Facility: [facility] Address:[address] [place], [place] [address]Performed By: #### [id number] ####[facility] LABIA [id number] [place] [address] [place] AMERICAGamma globulin Elph [Mass/Vol]1.08 g/dLNormal0.53-1.51[facility] on above:Order Comment: Specimen Type: BLOOD SPECIMENOrdering Facility: [facility] Address:[address] [place], [place] [address]Performed By: #### [id number] ####[facility] LABIA [id number] [place] [address] [place] INTERPRETATION COMMENT FOR PROTEIN ELECTROPHORESISSee separate immunofixation report for characterization of monoclonal gammopathy.NormalUniversity Hospitals Geauga Medical Center on above:Order Comment: Specimen Type: BLOOD SPECIMENOrdering Facility: [facility] Address:[address] [place], [place] [address]Performed By: #### [id number] ####[facility] LABIA [id number] [place] [address] [place] M-PROTEIN LOCATIONGamma Fraction 1NormalUniversity Hospitals Geauga Medical Center on above:Order Comment: Specimen Type: BLOOD SPECIMENOrdering Facility: [facility] Address:[address] [place], [place] [address]Performed By: #### [id number] ####[facility] LABIA [id number] [place] [address] [place] AMERICAProtein Fractions [Interp]An M protein is identified on protein electrophoresis.AbnormalNo definitive M protein is identified on protein electrophoresis.[facility] on above:Order Comment: Specimen Type: BLOOD SPECIMENOrdering Facility: [facility] Address:[address] [place], [place] [address]Performed By: #### [id number] ####[facility] [id number] [place] [address] [place] Protein.monoclonal Elph [Mass/Vol]0.65 g/dLHigh<=0.00[facility] Comment on above:Order Comment: Specimen Type: BLOOD SPECIMENOrdering Facility: [facility] Address:[address] [place] [address] Performed By: #### [id number] ####[facility] [id number] [place] [address] [place] SPE STAFF REVIEWReviewed by Donaldo Rivas MD, Ph.D ([id number])NormalUniversity Hospitals Geauga Medical Center on above:Order Comment: Specimen Type: BLOOD SPECIMENOrdering Facility: [facility] Address:[address] [place], [place] [address]Performed By: #### [id number] ####[facility] [id number] [place] [address] [place] AMERICAProt SerPl-mCncon 53-60-0196Glgkihy [Mass/Vol]6.7 g/dLNormal6.3-8.0 [facility] on above:Order Comment: Specimen Type: BLOOD SPECIMENOrdering Facility: [facility] Address:[address] [place], [place] [address]Performed By: #### 2885-2 ####[facility] LABIA [id number] [place] [address] [place] AMERICACNPNon [id number] (HEMTSA) ZACH MANUEL ([id number]) 1945 M Date Time Provider Department 02/13/25 KEYONNA FUENTES HEMTSA During your visit today, we recorded the following information about you: Keyonna Fuentes RN 02/13/2025 11:04 AM Signed Pt in for OV and Aredia on Saturday 02/17, please place and sign more orders. Thanks! 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 [Z79*10/20/2015 Left inguinal hernia [K40.90] 10/20/2015 Former smoker [Z87.891] 10/20/2015 Elevated prostate specific antigen (PSA) [R97.2*03/19/2020 Stage 3 chronic kidney disease, unspecified whe*03/06/2023 Encounter Status:Closed by AINSLEY WOODSON on 02/13/25[facility] 12 leadon 88-26-2305PHNMOKEHQVVCSHTfqVtaxnvMercyOne Clinton Medical CenterCNPNon 64-95-4596ACUNNqskwtajv (HEMTSA) ZACH MANUEL ([id number]) 1945 M Date Time Provider Department 05/29/24 [...] Reason for Visit: Care Coordination [3499] Cmt: Lab Results Prescriptions as of 05/29/2024 [...] 2 diabetes mellitus without complication (*10/20/2015 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 [Z79*10/20/2015 Left inguinal hernia [K40.90] 10/20/2015 Former smoker [Z87.891] 10/20/2015 Elevated prostate specific antigen (PSA) [R97.2*03/19/2020 Stage 3 chronic kidney disease, unspecified whe*03/06/2023 Encounter Status:Closed by JUAN FERGUSON on 05/29/24NormalCPomerene Hospital W Auto Differential panel (Bld)on 17-50-0031Zvcuoeeuq (Bld) [#/Vol] 0.09 10*3/uLNormal<0.11CCleveland Clinic [facility] on above:Order Comment: Specimen Type: BLOOD SPECIMENOrdering Facility: [facility] Address:[address] [place], [place] [address]Performed By: #### 46538-3 ####[facility] LABIA [id number] [place], [place] [address]Hvmhhkakj/100 WBC (Bld)1.3 %NormalUniversity Hospitals Geauga Medical Center on above:Order Comment: Specimen Type: BLOOD SPECIMENOrdering Facility: [facility] Address:[address] [place], [place] [address]Performed By: #### 80547-4 ####[facility] LABIA [id number] [place], [place] [address]Tbfijkqkabya cell count method Nom (Bld)AutoNormAvita Health System [facility] on above:Order Comment: Specimen Type: BLOOD SPECIMENOrdering Facility: [facility] Address:[address] [place], [place] [address]Performed By: #### 08492-0 ####[facility] LABIA [id number] [place], [place] [address]Gqzhuzqllsw (Bld) [#/Vol]0.32 10*3/uLNormal<0.46[facility] on above:Order Comment: Specimen Type: BLOOD SPECIMENOrdering Facility: [facility] Address:[address] [place], [place] [address]Performed By: #### 70184-0 ####[facility] LABIA [id number] [place], [place] [address]Czajbdydhva/100 WBC (Bld)4.7 %NormalSt. John Of God HospitalComment on above:Order Comment: Specimen Type: BLOOD SPECIMENOrdering Facility: [facility] Address:[address] [place], [place] [address]Performed By: #### 59751-9 ####[facility] LABIA [id number] [place], [place] [address]Wockxcfrivi distribution width (RBC) [Ratio]13.8 %Normal 11.5-15.0[facility] on above:Order Comment: Specimen Type: BLOOD SPECIMENOrdering Facility: [facility] Address:[address] [place], [place] [address]Performed By: #### 50546-8 ####[facility] LABIA [id number] [place] [address] Hematocrit (Bld) [Volume fraction]37.7 %Low39.0-51.0[facility] Comment on above:Order Comment: Specimen Type: BLOOD SPECIMENOrdering Facility: [facility] Address:[address] [place] [address] Performed By: #### 73530-4 ####[facility] LABIA [id number] [place], [place] [address]Ljklspemyu (Bld) [Mass/Vol]13.3 g/gWUlvguu54.0-17.0[facility] on above:Order Comment: Specimen Type: BLOOD SPECIMENOrdering Facility: [facility] Address:[address] [place], [place] [address]Performed By: #### 55392-4 ####[facility] LABIA [id number] [place], [place] [address]Xxsntgsb granulocytes (Bld) [#/Vol]0.03 10*3/uLNormal <0.10[facility] on above:Order Comment: Specimen Type: BLOOD SPECIMENOrdering Facility: [facility] Address:[address] [place], [place] [address]Performed By: #### 03611-8 ####[facility] LABCLIA [id number] [place], [place] [address]Dsihmqrr granulocytes/100 WBC (Bld)0.4 %NormalUniversity Hospitals Geauga Medical Center on above: Order Comment: Specimen Type: BLOOD SPECIMENOrdering Facility: [facility] Address:[address] [place], [place] [address]Performed By: #### 42376- 8 ####[facility] LABCLIA [id number] [place], [place] [address]Kxkofkcpxhz (Bld) [#/Vol]1.04 10*3/uLNormal1.00-4.00 [facility] on above:Order Comment: Specimen Type: BLOOD SPECIMENOrdering Facility: [facility] Address:[address] [place], [place] [address]Performed By: #### 44714-5 ####[facility] LABIA [id number] [place], [place] [address]Vnofhgyllww/100 WBC (Bld)15.3 %NormalUniversity Hospitals Geauga Medical Center on above:Order Comment: Specimen Type: BLOOD SPECIMENOrdering Facility: [facility] Address:[address] [place], [place] [address]Performed By: #### 80143-8 ####[facility] LABIA [id number] [place], [place] [address]IVN (RBC) [Entitic mass]36.3 jnDnyu87.0-34.0[facility] on above:Order Comment: Specimen Type: BLOOD SPECIMENOrdering Facility: [facility] Address:[address] [place], [place] [address]Performed By: #### 29580-7 ####[facility] LABCLIA [id number] [place], [place] [address]SUMO (RBC) [Mass/Vol]35.3 g/qAOxosxc42.5-36.0[facility] on above: Order Comment: Specimen Type: BLOOD SPECIMENOrdering Facility: [facility] Address:[address] [place], [place] [address]Performed By: #### 73777- 8 ####[facility] LABCLIA [id number] [place], [place] [address]HMU (RBC) [Entitic vol]103.0 cKEpjh87.0-100.0[facility] on above:Order Comment: Specimen Type: BLOOD SPECIMENOrdering Facility: [facility] Address:[address] [place], [place] [address]Performed By: #### 18325-5 ####[facility] LABIA [id number] [place], [place] [address]Dekndvlgl (Bld) [#/Vol]0.72 10*3/uLNormal<0.87[facility] on above:Order Comment: Specimen Type: BLOOD SPECIMENOrdering Facility: [facility] Address:[address] [place], [place] [address]Performed By: #### 49417- 8 ####[facility] LABCLIA [id number] [place], [place] [address]Hjwktdlcc/100 WBC (Bld)10.6 %NormalUniversity Hospitals Geauga Medical Center on above:Order Comment: Specimen Type: BLOOD SPECIMENOrdering Facility: [facility] Address:[address] [place], [place] [address]Performed By: #### 21000-1 ####[facility] LABIA [id number] [place], [place] [address]Caiwrfcchph (Bld) [#/Vol]4.60 10*3/uLNormal1.45-7.50[facility] on above:Order Comment: Specimen Type: BLOOD SPECIMENOrdering Facility: [facility] Address:[address] [place], [place] [address]Performed By: #### 28139-3 ####[facility] LABCLIA [id number] [place], [place] [address]Srbsnrhabaj/100 WBC (Bld)67.7 %NormalUniversity Hospitals Geauga Medical Center on above:Order Comment: Specimen Type: BLOOD SPECIMENOrdering Facility: [facility] Address:[address] [place], [place] [address]Performed By: #### 70217-9 ####[facility] LABCLIA [id number] [place], [place] [address]Ihgfpchfm RBC (Bld) [#/Vol] 10*3/uLNormal<0.01[facility] on above:Order Comment: Specimen Type: BLOOD SPECIMENOrdering Facility: [facility] Address:[address] [place], [place] [address]Performed By: #### 82252-9 ####[facility] LABCLIA [id number] [place], [place] [address]Bcqarejwt RBC/100 WBC (Bld) [Ratio]0.0 /100 WBCNormal [facility] on above:Order Comment: Specimen Type: BLOOD SPECIMENOrdering Facility: [facility] Address:[address] [place], [place] [address]Performed By: #### 80988-4 ####[facility] LABCLIA [id number] [place], [place] [address]Effhjjjs mean volume (Bld) [Entitic vol]10.6 fLNormal9.0-12.7CCleveland [facility] on above:Order Comment: Specimen Type: BLOOD SPECIMENOrdering Facility: [facility] Address:[address] [place] [address] Performed By: #### 78418-3 ####[facility] LABCLIA [id number] [place], [place] [address]Kcaubdfai (Bld) [#/Vol]172 10*3/zTNgxwgz702-150VostoecjsUniversity Hospitals Geauga Medical Center on above:Order Comment: Specimen Type: BLOOD SPECIMENOrdering Facility: [facility] Address:[address] [place], [place] [address]Performed By: #### 40284-0 ####[facility] LABCLIA [id number] [place], [place] [address]MIB (Bld) [#/Vol]3.66 10*6/uLLow4.20-6.00[facility] on above:Order Comment: Specimen Type: BLOOD SPECIMENOrdering Facility: [facility] Address:[address] [place], [place] [address]Performed By: #### 54192-6 ####[facility] LABIA [id number] [place], [place] [address]DUD (Bld) [#/Vol]6.80 10*3/uL Normal3.70-11.00[facility] on above:Order Comment: Specimen Type: BLOOD SPECIMENOrdering Facility: [facility] Address:[address] [place], [place] [address]Performed By: #### 18937-3 ####[facility] LABIA [id number] [place], [place] [address]NLSUKCoz [id number] (SP) Office (HEMASA) ZACH MANUEL ([id number]) 1945 M Date Time Provider Department 05/27/24 [...] date: Hyperlipidemia 11/2002: Monoclonal gammopathy Comment: IgG [place] 2002: Multiple myeloma (HCC) No date: Ulcerative [...] Prostate MRI IMPRESSION: Enla (more content not included)...NormalSt. John Of God HospitalCNPNon [id number] (HEMASA) ZACH MANUEL ([id number]) 1945 [place] Date Time Provider Department 05/27/24 [...] Type 2 diabetes mellitus without complication (*10/20/2015 care home current use of systemic steroids [Z79*10/20/2015 Left inguinal hernia [K40.90] 10/20/2015 Former smoker [Z87.891] 10/20/2015 Elevated prostate specific antigen (PSA) [R97.2*03/19/2020 Stage 3 chronic kidney disease, unspecified whe*03/06/2023 Encounter Status:Closed by JUAN FERGUSON on 05/27/24NormalClevelECU Health Beaufort HospitalComprehensive metabolic 2000 panelon 82-92-2025Mdrojbg [Mass/Vol]3.9 g/dLNormal3.9-4.9CParkview Health Bryan HospitalComment on above:Order Comment: Specimen Type: BLOOD SPECIMENOrdering Facility: [facility] Address:[address] [place], [place] [address]Result Comment: Corrected result: Previously reported as 4.1 g/dL on 05/27/2024 at 1:22 PM EDT.Performed By: #### 60811-9 ####[facility] LABCLIA [id number] [place] [address] [place] AMERICAALP [Catalytic activity/Vol]74 U/IEvyskv09-543LxyxegdlcUniversity Hospitals Geauga Medical Center on above:Order Comment: Specimen Type: BLOOD SPECIMENOrdering Facility: [facility] Address:[address] [place], [place] [address]Result Comment: Corrected result: Previously reported as 77 U/L on 05/27/2024 at 1:22 PM EDT.Performed By: #### 69807-7 ####[facility] LABIA [id number] [place] [address] [place] AMERICAALT [Catalytic activity/Vol]16 U/UUsdwuk87-37YttmoigjeUniversity Hospitals Geauga Medical Center on above:Order Comment: Specimen Type: BLOOD SPECIMENOrdering Facility: [facility] Address:[address] [place], [place] [address]Result Comment: Corrected result: Previously reported as 10 U/L on 05/27/2024 at 1:22 PM EDT.Performed By: #### 04989-8 ####[facility] LABCLIA [id number] [place] [address] [place] AMERICAAnion gap [Moles/Vol] 12 mmol/LNormal8-15[facility] on above:Order Comment: Specimen Type: BLOOD SPECIMENOrdering Facility: [facility] Address:[address] [place], [place] [address]Performed By: #### 18810-5 ####[facility] LABIA [id number] [place] [address] [place] AMERICAAST [Catalytic activity/Vol]20 U/WUlolax04-63KkhruuadmUniversity Hospitals Geauga Medical Center on above:Order Comment: Specimen Type: BLOOD SPECIMENOrdering Facility: [facility] Address:[address], [place], [place] [address]Xqscwo Comment: Corrected result: Previously reported as 13 U/L on 05/27/2024 at 1:22 PM EDT.Performed By: #### 80274-1 ####[facility] LABCLIA [id number] [place] [address] [place] AMERICABilirubin [Mass/Vol]0.9 mg/dL Normal0.2-1.3CParkview Health Bryan HospitalComment on above:Order Comment: Specimen Type: BLOOD SPECIMENOrdering Facility: [facility] Address:[address] [place], [place] [address]Performed By: #### 45442-7 ####[facility] LABCLIA [id number] [place] [address] [place] AMERICACalcium [Mass/Vol]8.5 mg/dLNormal8.5-10.2ClevelECU Health Beaufort HospitalComment on above:Order Comment: Specimen Type: BLOOD SPECIMENOrdering Facility: [facility] Address:[address] [place], [place] [address]Performed By: #### 37689-3 ####[facility] LABCLIA [id number] [place] [address] [place] AMERICAChloride [Moles/Vol]106 mmol/JAcagtq06-697YyswvkeiaSt. John Of God Hospital Comment on above:Order Comment: Specimen Type: BLOOD SPECIMENOrdering Facility: [facility] Address:[address] [place], [place] [address]Result Comment: Result rechecked.Performed By: #### 77422-6 ####[facility] LABCLIA [id number] [place] [address] [place] AMERICACO2 [Moles/Vol]27 mmol/HNojcal37-22OzhyxayzgSt. John Of God Hospital Comment on above:Order Comment: Specimen Type: BLOOD SPECIMENOrdering Facility: [facility] Address:[address] [place], [place] [address]Result Comment: Corrected result: Previously reported as 29 mmol/L on 05/27/2024 at 1:22 PM EDT.Performed By: #### 58519-6 ####[facility] LABIA [id number] [place] [address] [place] [facility] Creatinine [Mass/Vol]1.59 mg/dLHigh0.73-1.22[facility] on above:Order Comment: Specimen Type: BLOOD SPECIMENOrdering Facility: [facility] Address:[address] [place], [place] [address]Result Comment: Corrected result: Previously reported as 1.61 mg/dL on 05/27/2024 at 1:22 PM EDT. Performed By: #### 95079-6 ####[facility] [id number] [address] Creatinine and Glomerular filtration rate.predicted panel (S/P/Bld)44 mL/min/1.73m???Low>=60[facility] on above:Order Comment: Specimen Type: BLOOD SPECIMENOrdering Facility: [facility] Address:[address] [place], [place] [address]Result Comment: Estimated Glomerular Filtration Rate (eGFR) is calculated using the 2020 CKD-EPI creatinine equation. This equation utilizes serum creatinine, sex, and age as parameters. The creatinine assay has traceable calibration to isotope dilution-mass spectrometry. Refer to KDIGO guidelines for clinical interpretation. In patients with unstable renal function, e.g. those with acute kidney injury, the eGFR may not accurately reflect actual GFR.Performed By: #### 63141-5 ####[facility] [id number] [address] STATES OF [facility] BRYAN HOSPITALGlucose [Mass/Vol]78 mg/zRMfmsmm06-88PsimpjnvhUniversity Hospitals Geauga Medical Center on above:Order Comment: Specimen Type: BLOOD SPECIMENOrdering Facility: [facility] Address:[address] [place], [place] [address]Result Comment: The [place] Diabetes Association (ADA) provides guidance for cutoff [...] Standards of Medical Care in Diabetes 2016, [place] Diabetes Association. Diabetes Care. 2016.39(Suppl 1). Corrected result: Previously reported as 85 mg/dL on 05/27/2024 at 1:22 PM EDT. Performed By: #### 00104-0 ####[facility] LABIA [id number] [place] [address] [place] Potassium [Moles/Vol]4.5 mmol/LNormal3.7-5.1CCleveland Clinic [facility] on above:Order Comment: Specimen Type: BLOOD SPECIMENOrdering Facility: [facility] Address:[address] [place], [place] [address]Performed By: #### 57081-5 ####[facility] [id number] [place] [address] [place] AMERICAProtein [Mass/Vol]6.6 g/dLNormal6.3-8.0[facility] on above:Order Comment: Specimen Type: BLOOD SPECIMENOrdering Facility: [facility] Address:[address] [place], [place] [address]Result Comment: Corrected result: Previously reported as 6.3 g/dL on 05/27/2024 at 1:22 PM EDT.Performed By: #### 97709-1 ####[facility] [id number] [place] [address] [place] AMERICASodium [Moles/Vol]145 mmol/ZMdwo750-986TbzjhzyrgUniversity Hospitals Ge[facility] Center on above:Order Comment: Specimen Type: BLOOD SPECIMENOrdering Facility: [facility] Address:[address] [place], [place] [address]Result Comment: Result rechecked. Performed By: #### 82987-4 ####[facility] LABCLIA [id number] [place] [address] [place] Urea nitrogen [Mass/Vol]15 mg/dLNormal9-24[facility] on above:Order Comment: Specimen Type: BLOOD SPECIMENOrdering Facility: [facility] Address:[address] [place], [place] [address]Result Comment: Corrected result: Previously reported as 17 mg/dL on 05/27/2024 at 1:22 PM EDT. Performed By: #### 18717-1 ####[facility] LABCLIA [id number] [address] OF [facility] IMMUNOFIXATION SCREEN, SERUMon 44-22-6583FHBVJSQZHXEZYW (MPA)Atypical restricted bands are present in the IgG and kappa regions. Consistent with IgG kappa monoclonal gammopathy.NormalUniversity Hospitals Ge[facility] on above:Order Comment: Specimen Type: BLOOD SPECIMENOrdering Facility: [facility] Address:[address] [place], [place] [address]Performed By: #### IFESC ####[facility] LABCLIA [id number] [place] [address] [place] AMERICAMPA RESULTM protein is present. AbnormalNo M protein is identified.[facility] on above: Order Comment: Specimen Type: BLOOD SPECIMENOrdering Facility: [facility] Address:[address] [place], [place] [address]Performed By: #### IFESC ####[facility] LABCLIA [id number] [address] STATES OF AMERICASTAFF REVIEW (MPA)Reviewed by Kishor AranaalCCleveland Clinic [facility] on above:Order Comment: Specimen Type: BLOOD SPECIMENOrdering Facility: [facility] Address:[address] [place], [place] [address]Performed By: #### IFESC ####[facility] LABCLIA [id number] [facility] [address], [place] [address] [place] AMERICAIMMUNOGLOBULINS,IGG,IGA,IGMon 65-20-0407YmS [Mass/Vol]94 mg/sCKcyvgm60-323VigycecezUniversity Hospitals Geauga Medical Center on above:Order Comment: Specimen Type: BLOOD SPECIMENOrdering Facility: [facility] Address:[address] [place], [place] [address]Performed By: #### SERIMM ####[facility] LABCLIA [id number] [place] [address] [place] AMERICAIgG [Mass/Vol]1157 mg/qIAcierf849-4908VxeqnlqnaUniversity Hospitals Geauga [facility] Center on above:Order Comment: Specimen Type: BLOOD SPECIMENOrdering Facility: [facility] Address:[address] [place], [place] [address]Performed By: #### SERIMM ####[facility] LABCLIA [id number] [facility] [id number] [place] [address] [place] AMERICAIgM [Mass/Vol]18 mg/aYOmo71-612 [facility] on above:Order Comment: Specimen Type: BLOOD SPECIMENOrdering Facility: [facility] Address:[address] [place], [place] [address]Performed By: #### SERIMM ####[facility] LABIA [id number] [place] [address] [place] AMERICAKAPPA/DANIELS,FREE,SERon 16-80-6085Zcauwynjnlduck light chains.kappa.free (S) [Mass/Vol]40.4 mg/LHigh3.3-19.4CCleveland Clinic [facility] on above: Order Comment: Specimen Type: BLOOD SPECIMENOrdering Facility: [facility] Address:[address] [place], [place] [address]Result Comment: Rarely, increased serum free light chains levels may not be detected or accurately q uantified due to prozone phenomenon or in high viscosity samples using this immunoturbidimetric assay. Correlation with other laboratory results and clinical findings is recommended. The [place] Free Light Chain was performed using the Binding Site Optilite immunoturbidimetric method. Result obtained with different assay methods or kits cannot be used interchangeably.Performed By: #### KLFRS ####[facility] LABIA [id number] [place] [address] [place] AMERICAImmunoglobulin light chains.kappa/Immunoglobulin light chains.lambda (S) [Mass ratio]1.36Eufprt3.26-1.65[facility] Comment on above:Order Comment: Specimen Type: BLOOD SPECIMENOrdering Facility: [facility] Address:[address] [place] [address] Performed By: #### KLFRS ####[facility] [id number] [address]Immunoglobulin light chains.lambda.free [Mass/Vol]25.0 mg/LNormal5.7-26.3CParkview Health Bryan HospitalComment on above:Order Comment: Specimen Type: BLOOD SPECIMENOrdering Facility: [facility] Address:[address] [place], [place] [address]Result Comment: Rarely, increased serum free light chains [...] cannot be used interchangeably.Performed By: #### KLFRS ####[facility] LABIA [id number] [place] [address] [place] AMERICAPROTEIN ELECTROPHORESIS SERUM (P)on 57-97-0382Rklhqva [Mass/Vol]3.79 g/dLNormal3.43-5.41[facility] on above: Order Comment: Specimen Type: BLOOD SPECIMENOrdering Facility: [facility] Address:[address] [place], [place] [address]Performed By: #### [id number] ####[facility] LABIA [id number] [place] [address] [place] AMERICAAlpha 1 globulin Elph [Mass/Vol]0.23 g/dLNormal0.18-0.43[facility] on above: Order Comment: Specimen Type: BLOOD SPECIMENOrdering Facility: [facility] Address:[address] [place], [place] [address]Performed By: #### [id number] ####[facility] LABIA [id number] [place] [address] [place] AMERICAAlpha 2 globulin Elph [Mass/Vol]0.59 g/dLNormal0.42-0.98[facility] on above: Order Comment: Specimen Type: BLOOD SPECIMENOrdering Facility: [facility] Address:[address] [place], [place] [address]Performed By: #### [id number] ####[facility] LABIA [id number] [place] [address] [place] AMERICABeta globulin Elph [Mass/Vol]0.61 g/dLNormal0.61-1.17[facility] on above: Order Comment: Specimen Type: BLOOD SPECIMENOrdering Facility: [facility] Address:[address] [place], [place] [address]Performed By: #### [id number] ####[facility] LABIA [id number] [place] [address] [place] AMERICAGamma globulin Elph [Mass/Vol]0.98 g/dLNormal0.53-1.51[facility] on above: Order Comment: Specimen Type: BLOOD SPECIMENOrdering Facility: [facility] Address:[address] [place], [place] [address]Performed By: #### [id number] ####[facility] LABIA [id number] [place] [address] [place] AMERICAINTERPRETATION COMMENT FOR PROTEIN ELECTROPHORESISSee separate immunofixation report for characterization of monoclonal gammopathy.NormalSt. John Of God Hospital Comment on above:Order Comment: Specimen Type: BLOOD SPECIMENOrdering Facility: [facility] Address:[address] [place] [address] Performed By: #### [id number] ####[facility] LABIA [id number] [place] [address] [place] M-PROTEIN LOCATIONGamma Fraction 1NormalSt. John Of God HospitalComment on above:Order Comment: Specimen Type: BLOOD SPECIMENOrdering Facility: [facility] Address:[address] [place], [place] [address]Performed By: #### [id number] ####[facility] LABIA [id number] [place] [address] [place] AMERICAProtein Fractions [Interp]An M protein is identified on protein electrophoresis.AbnormalNo definitive M protein is identified on protein electrophoresis.St. John Of God HospitalComment on above:Order Comment: Specimen Type: BLOOD SPECIMENOrdering Facility: [facility] Address:[address] [place], [place] [address]Performed By: #### [id number] ####[facility] LABIA [id number] [place] [address] [place] Protein.monoclonal Elph [Mass/Vol]0.67 g/dLHigh<=0.00[facility] Comment on above:Order Comment: Specimen Type: BLOOD SPECIMENOrdering Facility: [facility] Address:[address] [place] [address] Performed By: #### [id number] ####[facility] LABIA [id number] [place] [address] [place] SPE STAFF REVIEWReviewed by Endy AranaParkview Health Bryan Hospital Comment on above:Order Comment: Specimen Type: BLOOD SPECIMENOrdering Facility: [facility] Address:[address] [place] [address] Performed By: #### [id number] ####[facility] LABCLIA [id number] [facility]OSPITALK [id number] STATES OF [place] Prot SerPl-mCncon 91-06-4428Fctruzq [Mass/Vol]6.2 g/dLLow6.3-8.0St. John Of God HospitalComment on above:Order Comment: Specimen Type: BLOOD SPECIMENOrdering Facility: [facility] Address:[address] [place], [place] [address]Performed By: #### 2885-2 ####[facility] LABCLIA [id number] [facility] [id number] OF [place] CNPVangie 25-52-5758JHKJUnwzaptto (HEMTSA) ZACH MANUEL ([id number]) 1945 M Date Time Provider Department 05/20/24 [...] Fully Assessed Reason for Visit: Lab Orders [6858] Primary Visit Diagnosis:Multiple myeloma not having achieved remission (HCC) [C90.00] Order(s):COMPREHENSIVE METABOLIC PANEL [SQCMP] Order #: [id number] FUTURE COMPLETE BLOOD COUNT AND DIFFERENTIAL [SQCBCDIF] Order #: [id number] FUTURE MONOCLONAL PROTEIN, SERUM (BLOOD) [SQSERMPA] Order #: [id number] FUTURE PROTEIN ELECTROPHORESIS SERUM W/INTERP [SQSEPG] Order #: [id number] FUTURE Prescriptions as of 05/20/2024 - lenalidomide [...] Type 2 diabetes mellitus without complication (*10/20/2015 care home current use of systemic steroids [Z79*10/20/2015 Left inguinal hernia [K40.90] 10/20/2015 Former smoker [Z87.891] 10/20/2015 Elevated prostate specific antigen (PSA) [R97.2*03/19/2020 Stage 3 chronic kidney disease, unspecified whe*03/06/2023 Encounter Status:Closed by IRMA TALAVERA on 05/20/24NoCincinnati Shriners HospitalCNPNon [id number] (HEMASA) DOMITILAZACH ([id number]) 1945 M Date Time Provider Department 02/29/24 [...] Type 2 diabetes mellitus without complication (*10/20/2015 care home current use of systemic steroids [Z79*10/20/2015 Left inguinal hernia [K40.90] 10/20/2015 Former smoker [Z87.891] 10/20/2015 Elevated prostate specific antigen (PSA) [R97.2*03/19/2020 Stage 3 chronic kidney disease, unspecified whe*03/06/2023 Encounter Status:Closed by JUAN FERGUSON on 02/29/24NormalCPomerene Hospital W Auto Differential panel (Bld)on 08-54-1495Sjjtjvnnv (Bld) [#/Vol] 0.09 10*3/uLNormal<0.11CCleveland Clinic [facility] on above:Order Comment: Specimen Type: BLOOD SPECIMENOrdering Facility: [facility] Address:[address]ENTERGEOVANNI [place]VAL[place], [place] [address]Upqovzqsx By: #### 49949-6 ####[facility] LABCLIA [id number] [place], [place] [address]Ltrzawgtv/100 WBC (Bld)1.4 %NormalUniversity Hospitals Geauga Medical Center on above:Order Comment: Specimen Type: BLOOD SPECIMENOrdering Facility: [facility] Address:[address] [place], [place] [address]Performed By: #### 38297-2 ####[facility] LABCLIA [id number] [place], [place] [address]Tistpvhfpejg cell count method Nom (Bld)AutoNormalClevelCleveland Clinic Union Hospital on above:Order Comment: Specimen Type: BLOOD SPECIMENOrdering Facility: [facility] Address:[address] [place], [place] [address]Performed By: #### 02913-0 ####[facility] LABCLIA [id number] [place], [place] [address]Yxzojnmxjbq (Bld) [#/Vol]0.44 10*3/uLNormal<0.46[facility] on above:Order Comment: Specimen Type: BLOOD SPECIMENOrdering Facility: [facility] Address:[address] [place], [place] [address]Performed By: #### 25285-9 ####[facility] LABIA [id number] [place], [place] [address]Hrpfntjxsdl/100 WBC (Bld)6.6 %NormalUniversity Hospitals Geauga Medical Center on above:Order Comment: Specimen Type: BLOOD SPECIMENOrdering Facility: [facility] Address:[address] [place], [place] [address]Performed By: #### 17827-3 ####[facility] LABIA [id number] [place], [place] [address]Hcezsoplyze distribution width (RBC) [Ratio]15.4 %High 11.5-15.0[facility] on above:Order Comment: Specimen Type: BLOOD SPECIMENOrdering Facility: [facility] Address:[address] [place], [place] [address]Performed By: #### 96661-6 ####[facility] LABCLIA [id number] [place] [address] Hematocrit (Bld) [Volume fraction]38.0 %Low39.0-51.0[facility] Comment on above:Order Comment: Specimen Type: BLOOD SPECIMENOrdering Facility: [facility] Address:[address] [place] [address] Performed By: #### 26407-8 ####[facility] LABIA [id number] [place], [place] [address]Zrhowvivve (Bld) [Mass/Vol]12.9 g/dLLow13.0-17.0[facility] on above:Order Comment: Specimen Type: BLOOD SPECIMENOrdering Facility: [facility] Address:[address] [place], [place] [address]Performed By: #### 87731-4 ####[facility] LABIA [id number] [place], [place] [address]Uxggxrzf granulocytes (Bld) [#/Vol]0.04 10*3/uLNormal <0.10[facility] on above:Order Comment: Specimen Type: BLOOD SPECIMENOrdering Facility: [facility] Address:[address] [place], [place] [address]Performed By: #### 30903-8 ####[facility] LABIA [id number] [place], [place] [address]Gyrvxbfn granulocytes/100 WBC (Bld)0.6 %NormalUniversity Hospitals Geauga Medical Center on above: Order Comment: Specimen Type: BLOOD SPECIMENOrdering Facility: [facility] Address:[address] [place], [place] [address]Performed By: #### 84018- 8 ####[facility] LABIA [id number] [place], [place] [address]Bhxtmhsdszl (Bld) [#/Vol]1.24 10*3/uLNormal1.00-4.00 [facility] on above:Order Comment: Specimen Type: BLOOD SPECIMENOrdering Facility: [facility] Address:[address] [place], [place] [address]Performed By: #### 65723-5 ####[facility] LABCLIA [id number] [place], [place] [address]Sxlofgqloal/100 WBC (Bld)18.6 %NormalUniversity Hospitals Geauga Medical Center on above:Order Comment: Specimen Type: BLOOD SPECIMENOrdering Facility: [facility] Address:[address] [place], [place] [address]Performed By: #### 84116-9 ####[facility] LABCLIA [id number] [place], [place] [address]SGW (RBC) [Entitic mass]35.5 slLgxi49.0-34.0[facility] on above:Order Comment: Specimen Type: BLOOD SPECIMENOrdering Facility: [facility] Address:[address] [place], [place] [address]Performed By: #### 41997-4 ####[facility] LABCLIA [id number] [place], [place] [address]CKBU (RBC) [Mass/Vol]33.9 g/nLZdbkbb14.5-36.0[facility] on above: Order Comment: Specimen Type: BLOOD SPECIMENOrdering Facility: [facility] Address:[address] [place], [place] [address]Performed By: #### 95166- 8 ####[facility] LABCLIA [id number] [place], [place] [address]KFD (RBC) [Entitic vol]104.7 rYOnvj38.0-100.0[facility] on above:Order Comment: Specimen Type: BLOOD SPECIMENOrdering Facility: [facility] Address:[address] [place], [place] [address]Performed By: #### 71565-4 ####[facility] LABCLIA [id number] [place], [place] [address]Xzgzraedu (Bld) [#/Vol]0.88 10*3/uLHigh<0.87[facility] on above:Order Comment: Specimen Type: BLOOD SPECIMENOrdering Facility: [facility] Address:[address] [place], [place] [address]Performed By: #### 60516- 8 ####[facility] LABCLIA [id number] [place], [place] [address]Qcebjzrlk/100 WBC (Bld)13.2 %NormalUniversity Hospitals Geauga Medical Center on above:Order Comment: Specimen Type: BLOOD SPECIMENOrdering Facility: [facility] Address:[address] [place], [place] [address]Performed By: #### 17763-5 ####[facility] [id number] [place], [place] [address]Xogmiimdtyn (Bld) [#/Vol]3.96 10*3/uLNormal1.45-7.50[facility] on above:Order Comment: Specimen Type: BLOOD SPECIMENOrdering Facility: [facility] Address:[address] [place], [place] [address]Performed By: #### 62366-5 ####[facility] LABIA [id number] [place], [place] [address]Olztyrtewhs/100 WBC (Bld)59.6 %NormalUniversity Hospitals Geauga Medical Center on above:Order Comment: Specimen Type: BLOOD SPECIMENOrdering Facility: [facility] Address:[address] [place], [place] [address]Performed By: #### 00065-5 ####[facility] LABIA [id number] [place], [place] [address]Yrnsepkce RBC (Bld) [#/Vol] 10*3/uLNormal<0.01[facility] on above:Order Comment: Specimen Type: BLOOD SPECIMENOrdering Facility: [facility] Address:[address] [place], [place] [address]Performed By: #### 64114-1 ####[facility] LABCLIA [id number] [place], [place] [address]Rgcbzqfce RBC/100 WBC (Bld) [Ratio]0.0 /100 WBCNormal [facility] on above:Order Comment: Specimen Type: BLOOD SPECIMENOrdering Facility: [facility] Address:[address] [place], [place] [address]Performed By: #### 53488-3 ####[facility] LABCLIA [id number] [place], [place] [address]Sszttpxc mean volume (Bld) [Entitic vol]10.6 fLNormal9.0-12.7CCleveland Clinic [facility] on above:Order Comment: Specimen Type: BLOOD SPECIMENOrdering Facility: [facility] Address:[address] [place] [address] Performed By: #### 95464-0 ####[facility] LABCLIA [id number] [place], [place] [address]Uuftctgms (Bld) [#/Vol]203 10*3/pDVaueki037-023AleiozfjeUniversity Hospitals Geauga Medical Center on above:Order Comment: Specimen Type: BLOOD SPECIMENOrdering Facility: [facility] Address:[address] [place], [place] [address]Performed By: #### 24242-4 ####[facility] LABCLIA [id number] [place], [place] [address]GDF (Bld) [#/Vol]3.63 10*6/uLLow4.20-6.00[facility] on above:Order Comment: Specimen Type: BLOOD SPECIMENOrdering Facility: [facility] Address:[address] [place], [place] [address]Performed By: #### 16997-2 ####[facility] LABCLIA [id number] [place], [place] [address]BZJ (Bld) [#/Vol]6.65 10*3/uL Normal3.70-11.00[facility] on above:Order Comment: Specimen Type: BLOOD SPECIMENOrdering Facility: [facility] Address:[address] [place], [place] [address]Pvpkjvbnn By: #### 68097-5 ####[facility] LABCLIA [id number] [place], [place] [address]QGQXQRmh [id number] (SP) Office (HEMASA) ZACH MANUEL ([id number]) 1945 M Date Time Provider Department 02/26/24 1:15 PM URIEL GUNTER During your visit today, we recorded the following information about you: Temperature Pulse Respiration Blood pressure 97.6 degrees 59/minute 18/minute 126/68 Weight Height 84.3 kg 1.753 m Uriel Gunter MD 02/27/2024 4:09 PM Signed PATIENT NAME: Zach Manule DATE: 02/26/2024 PRIMARY CARE PHYSICIAN: Dr. Hanna [...] mellitus (HCC) Hyperlipidemia Monoclonal gammopathy 11/2002 IgG [place] Multiple myeloma (HCC) 2002 Ulcerative colitis (HCC) [...] right mid posterolateral (more content not included)...Normal [facility] HospitalComprehensive metabolic 2000 panelon 04-69-8611Lneacqo [Mass/Vol]3.9 g/dLNormal3.9-4.9CC[facility] on above:Order Comment: Specimen Type: BLOOD SPECIMENOrdering Facility: [facility] Address:[address] [place], [place] [address]GEOVANNI [place], [place] [address]Swhtthojy By: #### 24517- 8 ####[facility] LABCLIA [id number] [place], [place] [address]GWY [Catalytic activity/Vol]78 U/MIimqyn10-428RdyqzbtggUniversity Hospitals Geauga [facility] Center on above:Order Comment: Specimen Type: BLOOD SPECIMENOrdering Facility: [facility] Address:[address] [place], [place] [address]Performed By: #### 17551-2 ####[facility] LABCLIA [id number] [place], [place] [address]ZBZ [Catalytic activity/Vol]8 U/GFpb98-14LuwbjyxpoUniversity Hospitals Geauga Medical Center on above:Order Comment: Specimen Type: BLOOD SPECIMENOrdering Facility: [facility] Address:[address] [place], [place] [address]Performed By: #### 63186- 8 ####[facility] LABCLIA [id number] [facility] [place], [place] [address]Eqwzb gap [Moles/Vol]6 mmol/LLow8-15[facility] on above:Order Comment: Specimen Type: BLOOD SPECIMENOrdering Facility: [facility] Address:[address] [place], [place] [address]Performed By: #### 83552-3 ####[facility] LABCLIA [id number] [place], [place] [address]QBY [Catalytic activity/Vol]13 U/RLzw27-56BodghcycsUniversity Hospitals Geauga [facility] Center on above:Order Comment: Specimen Type: BLOOD SPECIMENOrdering Facility: [facility] Address:[address] [place], [place] [address]Performed By: #### 38703-3 ####[facility] LABCLIA [id number] [facility]ITALCRUZITOAUR[facility] [place] [address] Bilirubin [Mass/Vol]0.8 mg/dLNormal0.2-1.3CC[facility] on above:Order Comment: Specimen Type: BLOOD SPECIMENOrdering Facility: [facility] Address:[address] [place], [place] [address]Performed By: #### 93859-2 ####[facility] LABCLIA [id number] [place], [place] [address]Ikxxawz [Mass/Vol]8.9 mg/dLNormal8.5-10.2CC[facility] on above:Order Comment: Specimen Type: BLOOD SPECIMENOrdering Facility: [facility] Address:[address] [place], [place] [address]Performed By: #### 42171-1 ####[facility] LABCLIA [id number] [place], [place] [address]Jjjlnxqs [Moles/Vol]103 mmol/SNlfqns70-750GrucbbnqnUniversity Hospitals [facility]aug[facility] on above: Order Comment: Specimen Type: BLOOD SPECIMENOrdering Facility: [facility] Address:[address] [place], [place] [address]Performed By: #### 49098- 8 ####[facility] LABCLIA [id number] [place], [place] [address]PB6 [Moles/Vol]30 mmol/LCdyqmu16-91NxlloleliUniversity Hospitals Geauga Medical Center on above:Order Comment: Specimen Type: BLOOD SPECIMENOrdering Facility: [facility] Address:[address] [place], [place] [address]Performed By: #### 52613-5 ####[facility] LABCLIA [id number] [place], [place] [address]Uunorvietf [Mass/Vol]1.70 mg/dL High0.73-1.22[facility] on above:Order Comment: Specimen Type: BLOOD SPECIMENOrdering Facility: [facility] Address:[address] [place], [place] [address]Performed By: #### 26400-4 ####[facility] LABCLIA [id number] [place] [address] Creatinine and Glomerular filtration rate.predicted panel (S/P/Bld)41 mL/min/1.73m???Low>=60[facility] on above:Order Comment: Specimen Type: BLOOD SPECIMENOrdering Facility: [facility] Address:[address] [place], [place] [address]Result Comment: Estimated Glomerular Filtration Rate (eGFR) is calculated using the 2020 CKD-EPI creatinine equation. This equation utilizes serum creatinine, sex, and age as parameters. The creatinine assay has traceable calibration to isotope dilution-mass spectrometry. Refer to KDIGO guidelines for clinical interpretation. In patients with unstable renal function, e.g. those with acute kidney injury, the eGFR may not accurately reflect actual GFR.Performed By: #### 50279-2 ####[facility] LABIA [id number] [place] [address] Glucose [Mass/Vol]175 mg/nNEvgx20-00DkufknkrwUniversity Hospitals Geauga [facility] on above: Order Comment: Specimen Type: BLOOD SPECIMENOrdering Facility: [facility] Address:[address] [place], [place] [address]Result Comment: The [place] Diabetes Association (ADA) provides guidance for cutoff [...] Standards of Medical Care in Diabetes 2016, [place] Diabetes Association. Diabetes Care. 2016.39(Suppl 1).Performed By: #### 04667-2 ####[facility] LABCLIA [id number] [place], [place] [address]Djcdeqjhk [Moles/Vol]4.8 mmol/LNormal3.7-5.1CC[facility] on above:Order Comment: Specimen Type: BLOOD SPECIMENOrdering Facility: [facility] Address:[address] [id number] By: #### 10571-0 ####[facility] LABCLIA [id number] [place], [place] [address]Iqluogi [Mass/Vol]6.7 g/dLNormal6.3-8.0[facility] on above:Order Comment: Specimen Type: BLOOD SPECIMENOrdering Facility: [facility] Address:[address] [place], [place] [address]Performed By: #### 72009- 8 ####[facility] LABCLIA [id number] [place], [place] [address]Izxllp [Moles/Vol]139 mmol/IDiylwb137-899NhaanhosjUniversity Hospitals Geauga Medical Center on above:Order Comment: Specimen Type: BLOOD SPECIMENOrdering Facility: [facility] Address:[address] [place], [place] [address]Performed By: #### 77602-2 ####[facility] LABCLIA [id number] [place], [place] [address]Xhoq nitrogen [Mass/Vol]23 mg/dLNormal9-24[facility] on above:Order Comment: Specimen Type: BLOOD SPECIMENOrdering Facility: [facility] Address:[address] [place], [place] [address]Performed By: #### 48354-6 ####[facility] LABCLIA [id number] [place], [place] [address]NEDRRJBIUMZMEJ SCREEN, SERUMon 32-31-5914VGUTWDXZHYOMCM (MPA)Atypical restricted bands are present in the IgG and kappa regions. Consistent with IgG kappa monoclonal gammopathy.NormalSt. John Of God Hospital Comment on above:Order Comment: Specimen Type: BLOOD SPECIMENOrdering Facility: [facility] Address:[address] [place] [address] Performed By: #### IFESC ####[facility] LABCLIA [id number] [facility] [place], [place] [address] [place] AMERICAMPA RESULTM protein is present.AbnormalNo M protein is identified.[facility] Comment on above:Order Comment: Specimen Type: BLOOD SPECIMENOrdering Facility: [facility] Address:[address] [place] [address] Performed By: #### IFESC ####[facility] LABCLIA [id number] [place] [address] [place] AMERICASTAFF REVIEW ([facility])Reviewed by Dr. Joshua SchumacherCleveland Clinic [facility] on above:Order Comment: Specimen Type: BLOOD SPECIMENOrdering Facility: [facility] Address:[address] [place], [place] [address]Performed By: #### IFESC ####[facility] LABCLIA [id number] [place] [address] [place] AMERICAIMMUNOGLOBULINS,IGG,IGA,IGMon 22-89-2455FvJ [Mass/Vol]96 mg/wRFbomfo71-531KojgtqvgpUniversity Hospitals Geaug[facility] Center on above:Order Comment: Specimen Type: BLOOD SPECIMENOrdering Facility: [facility] Address:[address] [place], [place] [address]Performed By: #### SERIMM ####[facility] LABCLIA [id number] [place] [address] [place] AMERICAIgG [Mass/Vol]1109 mg/oXMkdqny064-0025WpxqyeeicUniversity Hospitals Geaug[facility] on above:Order Comment: Specimen Type: BLOOD SPECIMENOrdering Facility: [facility] Address:[address] [place], [place] [address]Performed By: #### SERIMM ####[facility] LABCLIA [id number] [place] [address] [place] AMERICAIgM [Mass/Vol]17 mg/dEAtk98-210 [facility] on above:Order Comment: Specimen Type: BLOOD SPECIMENOrdering Facility: [facility] Address:[address] [place], [place] [address]Performed By: #### SERIMM ####[facility] LABCLIA [id number] [place] [address] [place] AMERICAKAPPA/DANIELS,FREE,SERon 91-13-8611Rvlxgreykudcfd light chains.kappa.free (S) [Mass/Vol]40.3 mg/LHigh3.3-19.4CC[facility] on above: Order Comment: Specimen Type: BLOOD SPECIMEN [facility] Address: [address] [place], [place] [address]Result Comment: Rarely, increased serum free light chains levels may not be detected or accurately quantified due to prozone phenomenon or in high viscosity samples using this immunoturbidimetric assay. Correlation with other laboratory results and clinical findings is recommended. The [place] Free Light Chain was performed using the Binding Site Optilite immunoturbidimetric method. Result obtained with different assay methods or kits cannot be used interchangeably.Performed By: #### KLFRS #### [facility] LAB CLIA [id number] [address] [place] [address] [place] AMERICAImmunoglobulin light chains.kappa/Immunoglobulin light chains.lambda (S) [Mass ratio]1.57Normal 0.26-1.65[facility] on above:Order Comment: Specimen Type: BLOOD SPECIMEN [facility] Address: [address] [place], [place] [address]Performed By: #### KLFRS #### [facility] CLIA [id number] [address] [place] [address] [place] AMERICAImmunoglobulin light chains.lambda.free [Mass/Vol]25.6 mg/LNormal5.7-26.3CParkview Health Bryan Hospital Comment on above:Order Comment: Specimen Type: BLOOD SPECIMEN [facility] Address: [address] [place], [place] [address]Result Comment: Rarely, increased serum free light chains [...] be used interchangeably.Performed By: #### KLFRS #### [facility] CLIA [id number] [place] [address] [place] [facility] BRYAN HOSPITALPROTEIN ELECTROPHORESIS SERUM WITH TOÑITO (P)on 95-27-6429Dejomgf [Mass/Vol]4.08 g/dLNormal3.43-5.41 [facility] God HospitalComformerly [facility] on above:Order Comment: Specimen Type: BLOOD SPECIMENOrdering Facility: [facility] Address:[address] [place], [place] [address]Performed By: #### [id number] ####[facility] LABIA [id number] [place] [address] [place] AMERICAAlpha 1 globulin Elph [Mass/Vol]0.25 g/dLNormal0.18-0.43St. [facility] God HospitalComment on above:Order Comment: Specimen Type: BLOOD SPECIMENOrdering Facility: [facility] Address:[address] [place], [place] [address]Performed By: #### [id number] ####[facility] LABIA [id number] [place] [address] [place] Alpha 2 globulin Elph [Mass/Vol]0.67 g/dLNormal0.42-0.98[facility] on above:Order Comment: Specimen Type: BLOOD SPECIMENOrdering Facility: [facility] Address:[address] [place], [place] [address]Performed By: #### [id number] ####[facility] LABIA [id number] [place] [address] [place] Beta globulin Elph [Mass/Vol]0.65 g/dLNormal0.61-1.17[facility] Comment on above:Order Comment: Specimen Type: BLOOD SPECIMENOrdering Facility: [facility] Address:[address] [place] [address] Performed By: #### [id number] ####[facility] LABCLIA [id number] [place] [address] [place] COMMENT (SERUM PROT ELECTRO)Monoclonal Protein analysis (immunofixation) is not indicated.[facility] on above:Order Comment: Specimen Type: BLOOD SPECIMENOrdering Facility: [facility] Address:[address] [place], [place] [address]Performed By: #### [id number] ####[facility] LABCLIA [id number] [place] [address] [place] AMERICAGamma globulin Elph [Mass/Vol] 1.05 g/dLNormal0.53-1.51[facility] on above:Order Comment: Specimen Type: BLOOD SPECIMENOrdering Facility: [facility] Address:[address] [place], [place] [address]Performed By: #### [id number] ####[facility] LABIA [id number] [address] STATES OF AMERICAINTERPRETATION COMMENT FOR PROTEIN ELECTROPHORESISSee separate immunofixation report for characterization of monoclonal gammopathy.[facility] Comment on above:Order Comment: Specimen Type: BLOOD SPECIMENOrdering Facility: [facility] Address:[address] [place] [address] Performed By: #### [id number] ####[facility] LABCLIA [id number] [place] [address] [place] M-PROTEIN LOCATIONGamma Fraction 1NormalUniversity Hospitals [facility]aug[facility] on above:Order Comment: Specimen Type: BLOOD SPECIMENOrdering Facility: [facility] Address:[address] [place], [place] [address]Performed By: #### [id number] ####[facility] LABIA [id number] [place] [address] [place] AMERICAProtein Fractions [Interp]An M protein is identified on protein electrophoresis.AbnormalNo definitive M protein is identified on protein electrophoresis.[facility] on above:Order Comment: Specimen Type: BLOOD SPECIMENOrdering Facility: [facility] Address:[address] [place], [place] [address]Performed By: #### [id number] ####[facility] LABCLIA [id number] [place] [address] [place] Protein.monoclonal Elph [Mass/Vol]0.67 g/dLHigh<=0.00[facility] Comment on above:Order Comment: Specimen Type: BLOOD SPECIMENOrdering Facility: [facility] Address:[address] [place] [address] Performed By: #### [id number] ####[facility] LABIA [id number] [place] [address] [place] SPE STAFF REVIEWReviewed by Dr. Joshua White MDNormalCParkview Health Bryan Hospital Comment on above:Order Comment: Specimen Type: BLOOD SPECIMENOrdering Facility: [facility] Address:[address] [place] [address] Performed By: #### [id number] ####[facility] LABIA [id number] [place] [address] [place] Prot SerPl-mCncon 77-28-0156Iqnnsii [Mass/Vol]6.3 g/dLNormal6.3-8.0St[facility] HospitalComment on above:Order Comment: Specimen Type: BLOOD SPECIMENOrdering Facility: [facility] Address:[address] [place], [place] [address]Performed By: #### 2885-2 ####[facility] LABIA [id number] [place] [address] [place] AMERICABasic metabolic 2000 panelon 69-69-7594Ldhfu gap [Moles/Vol]9 mmol/L9 - 18 mmol/LCleveland ClinicCalcium [Mass/Vol]9.0 mg/dL8.5 - 10.2 mg/dLIndependence ClinicChloride [Moles/Vol]102 mmol/L97 - 105 mmol/LCleveland ClinicCO2 [Moles/Vol]27 mmol/L22 - 30 mmol/LCleveland ClinicCreatinine [Mass/Vol]1.52 mg/dLHigh0.73 - 1.22 mg/dLMarietta Memorial HospitalEstimated Glomerular Filtration Rate47 mL/min/1.73mLow>=60 mL/min/1.73mCleveland ClinicGlucose [Mass/Vol]253 mg/dLHigh 74 - 99 mg/dLMarietta Memorial HospitalPotassium [Moles/Vol]4.5 mmol/L3.7 - 5.1 mmol/L Independence ClinicSodium [Moles/Vol]138 mmol/L136 - 144 mmol/LCleveland [facility] Medical CenterUrea nitrogen [Mass/Vol]29 mg/dLHigh9 - 24 mg/dLMarietta Memorial HospitalCB W Auto Differential panel (Bld)on 71-48-8898Cshcwppws (Bld) [#/Vol]0.05 10*3/uL<0.11 k/uLMarietta Memorial HospitalBasophils/100 WBC (Bld)0.7 %[facility] Memorial HospitalDifferential cell count method Nom (Bld)AutoCleveland [facility] Faribault Medical CenterEosinophils (Bld) [#/Vol]0.07 10*3/uL<0.46 k/uLMarietta Memorial HospitalEosinophils/100 WBC (Bld)1.0 %[facility] Erythrocyte distribution width (RBC) [Ratio]14.0 %11.5 - 15.0 %[facility] Hematocrit (Bld) [Volume fraction]39.5 %39.0 - 51.0 %[facility] HospitalHemoglobin (Bld) [Mass/Vol]13.7 g/dL13.0 - 17.0 g/dLMarietta Memorial HospitalImmature granulocytes (Bld) [#/Vol]0.03 10*3/uL<0.10 k/uLMarietta Memorial HospitalImmature granulocytes/100 WBC (Bld)0.4 %[facility] HospitalLymphocytes (Bld) [#/Vol]0.82 10*3/uLLow1.00 - 4.00 k/uLMarietta Memorial HospitalLymphocytes/100 WBC (Bld)11.7 %[facility] HospitalH (RBC) [Entitic mass]34.7 hrKswf67.0 - 34.0 pgCleveland Ortonville HospitalHC (RBC) [Mass/Vol]34.7 g/dL30.5 - 36.0 g/dLMarietta Memorial HospitalMCV (RBC) [Entitic vol]100.0 fL80.0 - 100.0 fLCleveland ClinicMonocytes (Bld) [#/Vol]1.05 10*3/uLHigh<0.87 k/uLMarietta Memorial HospitalMonocytes/100 WBC (Bld)15.0 %[facility] HospitalNeutrophils (Bld) [#/Vol]4.96 10*3/uL1.45 - 7.50 k/uLMarietta Memorial HospitalNeutrophils/100 WBC (Bld)71.2 %[facility] HospitalNucleated RBC (Bld) [#/Vol]<0.01 k/uLMarietta Memorial HospitalNucleated RBC/100 WBC (Bld) [Ratio]0.0 /100 WBCMarietta Memorial HospitalPlatelet mean volume (Bld) [Entitic vol]9.8 fL9.0 - 12.7 fLCleveland ClinicPlatelets (Bld) [#/Vol]207 10*3/uL150 - 400 k/uLMarietta Memorial HospitalRBC (Bld) [#/Vol]3.95 10*6/uLLow4.20 - 6.00 m/uL [facility] HospitalWBC (Bld) [#/Vol]6.98 10*3/uL3.70 - 11.00 k/uLMarietta Memorial Hospital PSA, FREE AND TOTAL RATIOon 08-29-2022% Free PSA25.9 %NormalThe [facility] CenterComment on above:Result Comment: The table [...] population of men.Performed By: #### PSAFREE #### [facility] [address] [place] [address] Dr. Tigre Schafer specific Ag [Mass/Vol]4.4 ng/mLCritically high0.0-4.0The [facility] on above:Result Comment: Alka ECLIA methodology. . According to the [employer] [employer], Serum PSA should decrease and [...] of malignant disease.Performed By: #### PSAFREE #### [facility] [address] [place] [address] Dr. Tigre Peck, Free1.14 ng/mLNormalN/AThSelect Medical Specialty Hospital - YoungstownComformerly [facility] on above:Result Comment: Alka ECLIA methodology.Performed By: #### PSAFREE #### [facility] [address] [place] [address] Dr. Tigre Peck, FREE AND TOTAL RATIOon 03-16-2022% Free PSA19.1 %NormalThe [facility] on above:Result Comment: The table below lists [...] population of men.Performed By: #### A1C #### [facility] [address] [place] [address] Dr. Tigre Peck, Free1.03 ng/mLNormalN/AThSelect Medical Specialty Hospital - YoungstownComformerly [facility] on above:Result Comment: Alka ECLIA methodology.Performed By: #### A1C #### [facility] [address] [place] [address] Dr. Tigre GantProstate specific Ag [Mass/Vol]5.4 ng/mLCritically high0.0-4.0The [facility] Hospitalment on above:Result Comment: Alka ECLIA methodology. . According to the [place] [employer], Serum PSA should decrease and [...] of malignant disease.Performed By: #### A1C #### [facility] [address] [place] [address] Dr. Tigre GantCBC AUTO DIFFon [id number] #0.1 103/ulNormal0.0-0.1The [facility] on above:Performed By: #### CBC #### [facility] [address] [place] [address] Dr. Tigre GantBasophils/100 WBC (Bld)2.6 %Critically high0.2-2.0The [facility] CenterComment on above:Performed By: #### CBC #### [facility] [address] [place] [address] Dr. Landeros ChangEKatelyn #0.4 103/ulNormal0.0-0.7The [facility] CenterComment on above: Performed By: #### CBC #### [facility] [address] [place] [address] Dr. Tigre Miguelosinophils/100 WBC (Bld)7.7 %Critically high0.9-7.0The [facility] on above:Performed By: #### CBC #### [facility] [address] [place] [address] Dr. Tigre Miguelrythrocyte distribution width (RBC) [Ratio]14.6 %Pzxmpj39.0-15.[address] [facility] Hospitalment on above:Performed By: #### CBC #### [facility] [address] [address] [address] Tigre GantHematocrit (Bld) [Volume fraction]39.0 %Critically low42.0-54.0 The [facility] CenterComment on above:Performed By: #### CBC #### [facility] [address] [address] [address] Tigre GantHemoglobin (Bld) [Mass/Vol]12.9 g/dLCritically low14.0-18.0The [facility] CenterComment on above:Performed By: #### CBC #### [facility] [address] [address] [address] Tigre GantIG #0.03 10e3/ulNormal0.00-0.03The [facility] CenterComment on above:Performed By: #### CBC #### [facility] [address] [place] [address] Dr. Tigre Gan %0.6 %Critically high0.0-0.5The [facility] CenterComment on above:Performed By: #### CBC #### [facility] [address] [address] [address] Tigre Pereira #1.0 103/ulCritically low1.2-3.8The [facility] Comment on above:Performed By: #### CBC #### [facility] [address] [place] [address] Dr. Tigre Corbinmphocytes/100 WBC (Bld)19.9 %Critically low20.5-60.0The [facility] CenterComment on above:Performed By: #### CBC #### [facility] [address] [address] [address] Tigre GantMANUAL DIFF REQNONormalThe [facility] CenterComment on above: Performed By: #### CBC #### [facility] [address] [address] [address] Tigre Zamudio (RBC) [Entitic mass]33.7 bwMvakjz57.9-34.0The [facility] CenterComment on above:Performed By: #### CBC #### [facility] [address] [place] [address] Dr. Tigre LynchHC (RBC) [Mass/Vol]33.1 g/kDAtzfwm41.9-35.2The [facility] CenterComment on above:Performed By: #### CBC #### [facility] [address] [place] [address] Dr. Tigre LynchV (RBC) [Entitic vol]101.8 fLCritically high80.0-94.0The [facility] CenterComment on above:Performed By: #### CBC #### [facility] [address] [place] [address] Dr. Tigre Jenkins #0.7 103/ulNormal0.3-0.8The [facility] CenterComment on above:Performed By: #### CBC #### [facility] [address] [place] [address] Dr. Tigre Jeffersocytes/100 WBC (Bld)13.6 %Critically high1.7-12.0The [facility] CenterComment on above:Performed By: #### CBC #### [facility] [address] [place] [address] Dr. Tigre Purdy #2.7 103/ulNormal1.4-6.5The [facility] CenterComment on above:Performed By: #### CBC #### [facility] [address] [place] [address] Dr. Tirge Dickinsonutrophils/100 WBC (Bld)55.6 %Dxmuwd64.0-75.0The [facility] CenterComment on above:Performed By: #### CBC #### [facility] [address] [place] [address] Dr. Tigre Araujolet mean volume (Bld) [Entitic vol]10.7 fLNormal9.5-13.5The [facility] CenterComment on above:Performed By: #### CBC #### [facility] [address] [place] [address] Dr. Tigre GantPLT209 103/cpLnocvx838-674Gaz [facility] CenterComment on above: Performed By: #### CBC #### [facility] [address] [place] [address] Dr. Tigre GantRBC3.83 106/ulCritically low4.70-6.10The [facility] CenterComformerly [facility] on above:Performed By: #### CBC #### [facility] [address] [place] [address] Dr. Tigre GantWBC4.9 103/ulNormal4.0-11.0The [facility] CenterComformerly [facility] on above: Performed By: #### CBC #### [facility] [address] [place] [address] Dr. Tigre GantFREE T3on 12-04-2176XZCX T32.60 pg/mlLNormal2.18-3.98The [facility] on above:Performed By: #### A1C #### [facility] [address] [place] [address] Dr. Tigre GantGLYCOHEMOGLOBIN A1Con [id number] RECOMMENDATIONSEE BELOWPremier Health Upper Valley Medical CenterComformerly [facility] on above:Result Comment: ADA RECOMMENDED LIMIT 4.0 - 6.0 ADA THERAPEUTIC TARGET < 7.0 ACTION SUGGESTED > 7.0Performed By: #### A1C #### [facility] [address] [place] [address] Dr. Tigre GantGlucose [Mass/Vol]189 mg/dLNoCleveland Clinic Fairview Hospital on above:Performed By: #### A1C #### [facility] [address] [place] [address] Dr. Tigre GantHbA1c (Bld) [Mass fraction]8.2 %Critically high4.5-6.2The [facility] on above:Performed By: #### A1C #### [facility] [address] [place] [address] Dr. Tigre GantLIPID PROFILEon [id number]-HDL RATIO NORMSEE BELOWSelect Medical Specialty Hospital - CincinnatiComformerly [facility] on above:Result Comment: 3.3 - 4.4 LOW RISK 4.4 - 7.1 AVERAGE RISK 7.1 - 11.0 MODERATE RISK >11.0 HIGH RISKPerformed By: #### CMP, TSH, LIPID, FT3, T4 #### [facility] [address] [address] [address] Tigre Macedoesterol [Mass/Vol]157 mg/dLNormal<=200[facility] Comment on above:Performed By: #### CMP, TSH, LIPID, FT3, T4 #### [facility] [address] [address] [address] Tigre Macedoesterol in HDL [Mass/Vol]62 mg/dLCritically lwup59-64AnfWvumedicine Barnesville HospitalComment on above:Performed By: #### CMP, TSH, LIPID, FT3, T4 #### [facility] [address] [place] [address] Dr. Tigre Fan in LDL [Mass/Vol]62.8 mg/dLNoMercy Health Willard HospitalComment on above:Performed By: #### CMP, TSH, LIPID, FT3, T4 #### [facility] [address] [place] [address] Dr. Tigre Fan.total/Cholesterol in HDL [Mass ratio]2.5 {ratio} NormalWvumedicine Barnesville HospitalComment on above:Performed By: #### CMP, TSH, LIPID, FT3, T4 #### [facility] [address] [place] [address] Dr. Tigre Watson NORMAL> or = 60 mg/dl - LOW CARDIOVASCULAR RISK <40 mg/dl - HIGH CARDIOVASCULAR RISKSelect Medical Specialty Hospital - CincinnatiComment on above:Performed By: #### CMP, TSH, LIPID, FT3, T4 #### [facility] [address] [place] [address] Dr. Tigre Morse CALC NORMALSEE BELOWSelect Medical Specialty Hospital - CincinnatiComment on above:Result Comment: <100 mg/dl OPTIMAL 100 - 129 mg/dl NEAR OR ABOVE OPTIMAL 130 - 159 mg/dl BORDERLINE HIGH 160 - 189 mg/dl HIGH >190 mg/dl VERY HIGH Performed By: #### CMP, TSH, LIPID, FT3, T4 #### [facility] [address] [place], [place] [id number] Dr. Tigre GantTriglyceride [Mass/Vol]161 mg/dLCritically high<=150The St. Francis Hospitalment on above:Performed By: #### CMP, TSH, LIPID, FT3, T4 #### [facility] [address] [place] [address] Dr. Tigre GantVLDL CALC32.2 mg/dLNormalThe [facility] CenterComment on above: Performed By: #### CMP, TSH, LIPID, FT3, T4 #### [facility] [address] [place] [address] Dr. Tigre GantPROF 14(COMP METB)on 25-65-1667Hzzejgu [Mass/Vol]3.5 g/dLNormal 3.4-5.0The [facility] CenterComment on above:Performed By: #### CMP, TSH, LIPID, FT3, T4 #### [facility] [address] [place] [address] Dr. Tigre GantAlbumin/Globulin [Mass ratio]1.1 {ratio}NormalThe [facility] CenterComment on above:Performed By: #### CMP, TSH, LIPID, FT3, T4 #### [facility] [address] [place] [address] Dr. Tigre Maddox [Catalytic activity/Vol]67 U/ENiyrgk69-681Sod [facility] CenterComment on above:Performed By: #### CMP, TSH, LIPID, FT3, T4 #### [facility] [address] [place] [address] Dr. Tigre Dooley [Catalytic activity/Vol]17 U/GUsyrkp52-38Rvu [facility] CenterComment on above:Performed By: #### CMP, TSH, LIPID, FT3, T4 #### [facility] [address] [place] [address] Dr. Tigre Maldonado gap [Moles/Vol]14.6 mmol/LNormalThe [facility] on above:Performed By: #### CMP, TSH, LIPID, FT3, T4 #### [facility] [address] [place] [address] Dr. Yilan ChangAST [Catalytic activity/Vol]16 U/XQnssxa07-93Ibm [facility] CenterComment on above:Performed By: #### CMP, TSH, LIPID, FT3, T4 #### [facility] [address] [place] [address] Dr. Tigre GantBilirubin [Mass/Vol]1.2 mg/dLCritically high0.2-1.0The [facility] CenterComment on above:Performed By: #### CMP, TSH, LIPID, FT3, T4 #### [facility] [address] [place] [address] Dr. Tigre GantCalcium [Mass/Vol]7.8 mg/dLCritically low8.5-10.1The [facility] CenterComment on above:Performed By: #### CMP, TSH, LIPID, FT3, T4 #### [facility] [address] [place] [address] Dr. Tigre GantChloride [Moles/Vol]106 mmol/HUxgsdo77-063Zbu [facility] Comment on above:Performed By: #### CMP, TSH, LIPID, FT3, T4 #### [facility] [address] [place] [address] Dr. Tigre GantCO2 [Moles/Vol]26.5 mmol/TMpcazz73.0-32.0The [facility] Comment on above:Performed By: #### CMP, TSH, LIPID, FT3, T4 #### [facility] [address] [place] [address] Dr. Tigre GantCreatinine [Mass/Vol]1.48 mg/dLCritically high0.70-1.30The [facility] on above:Performed By: #### CMP, TSH, LIPID, FT3, T4 #### [facility] [address] [place] [address] Dr. Landeros ChangEGFR-AF ZTSBOYZB89 mL/min/1.52y8Litgnumfyd low>=60The [facility] CenterComment on above:Performed By: #### CMP, TSH, LIPID, FT3, T4 #### [facility] [address] [place] [address] Dr. Tigre MiguelGFR-NON AF RENSZQJV10 mL/min/1.55x4Vmqanmucov low>=60The [facility] CenterComment on above:Performed By: #### CMP, TSH, LIPID, FT3, T4 #### [facility] [address] [place] [address] Dr. Tigre GantGlobulin (S) [Mass/Vol]3.3 g/dLNormalThe [facility] CenterComment on above:Performed By: #### CMP, TSH, LIPID, FT3, T4 #### [facility] [address] [place] [address] Dr. Tigre GantGlucose [Mass/Vol]99 mg/aNQjably16-989QtqWvumedicine [facility] Comment on above:Performed By: #### CMP, TSH, LIPID, FT3, T4 #### [facility] [address] [place] [address] Dr. Tigre GantPotassium [Moles/Vol]4.1 mmol/LNormal3.5-5.1The [facility] Comment on above:Performed By: #### CMP, TSH, LIPID, FT3, T4 #### [facility] [address] [place] [address] Dr. Tigre GantProtein [Mass/Vol]6.8 g/dLNormal6.4-8.2The [facility] Comment on above:Performed By: #### CMP, TSH, LIPID, FT3, T4 #### [facility] [address] [place] [address] Dr. Tigre GantSodium [Moles/Vol]143 mmol/EAcezvc270-949Hrv [facility] Comment on above:Performed By: #### CMP, TSH, LIPID, FT3, T4 #### [facility] [address] [place] [address] Dr. Tigre GantUrea nitrogen [Mass/Vol]17.0 mg/dLNormal7.0-18.0The [facility] CenterComment on above:Performed By: #### CMP, TSH, LIPID, FT3, T4 #### [facility] [address] [place] [address] Dr. Tigre GantUrea nitrogen/Creatinine [Mass ratio]11.5 mg/mgNormalThe [facility] CenterComment on above:Performed By: #### CMP, TSH, LIPID, FT3, T4 #### [facility] [address] [place] [address] Dr. Tigre GantT4on 44-19-7255A5 [Mass/Vol]6.30 ug/dLNormal4.50-12.10The [facility] CenterComformerly [facility] on above:Performed By: #### CMP, TSH, LIPID, FT3, T4 #### [facility] [address] [place] [address] Dr. Tigre GantTSHon 77-61-0439TFD2.904 uIU/mLCritically high0.358-3.740The [facility]. Francis Hospitalment on above:Performed By: #### CMP, TSH, LIPID, FT3, T4 #### [facility] [address] [place] [address] Dr. Tigre LopezA, FREE AND TOTAL RATIOon 12-21-2021% Free PSA24.5 %NormalThe [facility] on above:Result Comment: The table below lists [...] population of men.Performed By: #### A1C #### [facility] [address] [place] [address] Dr. Tigre GantProstate specific Ag [Mass/Vol]4.2 ng/mLCritically high0.0-4.0The [facility] on above:Result Comment: Alka ECLIA methodology. . According to the [employer] [employer], Serum PSA should decrease and [...] of malignant disease.Performed By: #### A1C #### [facility] [address] [place] [address] Dr. Tigre Peck, Free1.03 ng/mLNormalN/AThe [facility] CenterComment on above:Result Comment: Alka ECLIA methodology.Performed By: #### A1C #### [facility] [address] [place] [address] Dr. Tigre DangeloOSTRIDIUM DIFFICILE PCRon 09-13-2021 difficile Toxin Gene SHOSHANA NegativeNormalNegativeThe [facility] CenterComment on above:Performed By: #### A1C #### [facility] [address] [place] [address] Dr. Tigre Tan PANEL (PCR)on 33-55-3758Mpyvvzfuvf F 40/41Not detectedNormal NOT DETECTEDThe [facility] CenterComment on above:Performed By: #### GIPANEL #### [facility] [address] [place] [address] Dr. Tigre GantAstrovirusNot detectedNormalNOT DETECTEDThe [facility] Comment on above:Performed By: #### GIPANEL #### [facility] [address] [place] [address] Dr. Tigre Deng. Diff toxin A/BNot detectedNormalNOT DETECTEDThe [facility] CenterComment on above:Performed By: #### GIPANEL #### [facility] [address] [place] [address] Dr. Tigre ReyespylobacterNot detectedNormalNOT DETECTEDThe [facility] Comment on above:Performed By: #### GIPANEL #### [facility] [address] [place] [address] Dr. Tigre GantCryptosporidiumNot detectedNormalNOT DETECTEDThe [facility]aye HospitalComment on above:Performed By: #### GIPANEL #### [facility] [address] [address] [address] Tigre Murphy. CayetanensisNot detectedNormalNOT DETECTEDThe [facility] CenterComment on above:Performed By: #### GIPANEL #### [facility] [address] [address] [address] Tigre Flor Coli K198Bcy ApplicableNormalNot ApplicableThe [facility] CenterComment on above:Performed By: #### GIPANEL #### [facility] [address] [address] [address] Tigre Flor histolyticaNot detectedNormalNOT DETECTEDThe [facility] Comment on above:Performed By: #### GIPANEL #### [facility] [address] [address] [address] Tigre MiguelAECNot detectedNormalNOT DETECTEDThe [facility] CenterComment on above:Performed By: #### GIPANEL #### [facility] [address] [address] [address] Tigre MiguelIECNot detectedNormalNOT DETECTEDThe [facility] CenterComment on above:Performed By: #### GIPANEL #### [facility] [address] [address] [address] Tigre MiguelPECNot detectedNormalNOT DETECTEDThe [facility] CenterComment on above:Performed By: #### ARLINANEL #### [facility] [address] [address] [address] Tigre MiguelTECNot detectedNormalNOT DETECTEDThe [facility] CenterComment on above:Performed By: #### GIPANEL #### [facility] [address] [address] [address] Tigre Vale. LambliaNot detectedNormalNOT DETECTEDThe [facility] Comment on above:Performed By: #### GIPANEL #### [facility] [address] [address] [address] Tigre Virk CONTROLSPASSEDNormalThe [facility] CenterComment on above:Performed By: #### GIPANEL #### [facility] [address] [address] [address] Tigre Morton OLGA HEADERGI [facility] Comment on above:Performed By: #### MARYLUL #### [facility] [address] [address] [address] Tigre Suarez ECOLIGI PANEL DIARRHEAGENIC E.COLI / SHIGELLASelect Medical Specialty Hospital - CincinnatiComment on above:Performed By: #### BOBBY #### [facility] [address] [address] [address] Tigre Suarez INFOSEE [facility] HospitalComment on above: Result Comment: EAEC- Enteroaggregative E. Coli EPEC- Enteropathogenic E. Coli ETEC- Enterotoxigenic E. Coli lt/st STEC- Shigella-like toxin-producing E. Coli stx1/stx2 EIEC- Shigella/Enteroinvasive E. ColiPerformed By: #### BOBBY #### [facility] [address] [place] [address] Dr. Tigre Suarez PARASITESGI [facility] PARASITESSelect Medical Specialty Hospital - [place] Comment on above:Performed By: #### BOBBY #### [facility] [address] [place] [address] Dr. Tigre Suarez VIRUSGI [facility] HospitalComment on above:Performed By: #### BOBBY #### [facility] [address] [address] [address] Tigre Harprovirus GI/GIINot detectedNormalNOT DETECTEDThe [facility] CenterComment on above:Performed By: #### BOBBY #### [facility] [address] [address] [address] Tigre Sanchez. ShigelloidesNot detectedNormalNOT DETECTEDThe [facility] CenterComment on above:Performed By: #### BOBBY #### [facility] [address] [address] [address] Tigre GantRotavirus ANot detectedNormalNOT DETECTEDThe [facility] Comment on above:Performed By: #### GIPANEL #### [facility] [address] [address] [address] Tigre GantSalmonellaNot detectedNormalNOT DETECTEDThe [facility] Comment on above:Performed By: #### GIPANEL #### [facility] [address] [address] [address] Tigre GantSapovirusNot detectedNormalNOT DETECTEDThe [facility] Comment on above:Performed By: #### GIPANEL #### [facility] [address] [address] [address] Tigre GantSTECNot detectedNormalNOT DETECTEDThe [facility] CenterComment on above:Performed By: #### GIPANEL #### [facility] [address] [address] [address] Tigre BellbrioNot detectedNormalNOT DETECTEDThe [facility] CenterComment on above:Performed By: #### GIPANEL #### [facility] [address] [address] [address] Tigre Pratherio CholeraNot detectedNormalNOT DETECTEDWvumedicine [facility] Comment on above:Performed By: #### GIPANEL #### [facility] [address] [address] [address] Tigre Morton. EnterocoliticaNot detectedNormalNOT DETECTEDThe [facility] CenterComment on above:Performed By: #### GIPANEL #### [facility] [address] [address] [address] 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 CLINICAL DATA: [...] M.D.05/05/2021 2:07 PM Dictation Location: [place] [address] Transcribed By: [facility] 05/05/21 1407 Dictated By: Carson Kumar Jr, MD 05/05/21 1358 Signed By: 05/05/21 1409[facility]FE[facility] RIGHT 2 [facility] [id number] RIGHT 2 [facility] Department of Radiology [address] [place] [phone] Patient Name: ZACH MANUEL : 1945 [...] hip Electronically signed by:Jazmín Hernandez. Transcribed by: [email or web address], User Resident: Electronically Signed by: JAZMÍN HERNANDEZ @ 05/16/2019 03:38 [facility]onComment on above:Order Comment: , , , Ordering Provider - ZHENG SCOTT PA-C , FEMUR RIGHT 2 VWSon [id number] RIGHT 2 [facility]iThe [facility] Department of Radiology [address] [place] [address] Patient Name: ZACH MANUEL : [...] healing. Electronically signed by:Jazmín Hernandez. Transcribed by: [email or web address], User Resident: Electronically Signed by: JAZMÍN HERNANDEZ @ 02/13/2019 05:05 [facility]onComment on above:Order Comment: , , , Ordering Provider - ZHENG SCOTT PA-C , FEMUR RIGHT 2 [facility] [id number] RIGHT 2 [facility]ENTERniThe [facility] Department of Radiology [address] [place] [phone] Patient Name: ZACH MANUEL : 1945 [...] CROSS PA-C , Exam: FEMUR RIGHT 2 [facility] FEMUR RIGHT 2 VWS 01/09/2019 10:15 [...] reaction Electronically signed by:Soila Morris. Transcribed by: [email or web address], User Resident: Electronically Signed by: SOILA MORRIS @ 01/09/2019 12:25 [facility] CantonComment on above:Order Comment: , , , Ordering Provider - JACQUELINE CROSS PA-C , FEMUR RIGHT 2 VWSon 12-10-2018 FEMUR RIGHT 2 [facility]ni[facility] Department of Radiology [address] [place] [phone] Patient Name: ZACH MANUEL : 1945 [...] fracture Electronically signed by:Soila Morris. Transcribed by: [email or web address], User Resident: Electronically Signed by: SOILA MORRIS @ 12/10/2018 03:21 [facility]onComment on above:Order Comment: , Views (X-RAY, FEMUR): Radiologic Protocol , Weight Bearing?: Y , Views (X-RAY, FEMUR): Radiologic Protocol , Weight Bearing?: Y , , , Ordering Provider - ZHENG SCOTT PA-C , VITAMIN D 25-HYDROXYon 80-37-6937ZOQNCJF D 25-OH40.2 ng/mL Dmucyu62.0-80.0The [facility] SpringfieldComment on above:Result Comment: >80.0 Toxicity possiblePerformed By: #### 10405 #### [address] [address], [facility]ATR[facility] CENTERFEMUR RIGHT 2 [facility] [id number] RIGHT 2 SUniThe [facility] Department of Radiology [address] [place] [phone] Patient Name: ZACH MANUEL : 1945 [...] healing Electronically signed by:Soila Morris. Transcribed by: [email or web address], User Resident: Electronically Signed by: SOILA MORRIS @ 10/29/2018 02:17 [facility] CantonComment on above:Order Comment: , , , Ordering Provider - ZHENG SCOTT PA-C , FEMUR RIGHT 2 [facility] [id number] RIGHT 2 [facility]ENTERniThe [facility] Department of Radiology [address] [place] [phone] Patient Name: ZACH MANUEL : 1945 [...] SCOTT PA-C , Exam: FEMUR RIGHT 2 [facility] FEMUR RIGHT 2 [facility] 09/20/2018 12:49 PM EST SIGNS AND [...] bridging Electronically signed by:Soila Morris. Transcribed by: [email or web address], User Resident: Electronically Signed by: SOILA MORRIS @ 09/20/2018 01:08 [facility] CantonComment on above:Order Comment: , Views (X-RAY, FEMUR): AP, Lateral , Views (X-RAY, FEMUR): AP, Lateral , , , Ordering Provider - ZHENG SCOTT PA-C , FEMUR RIGHT 2 [facility] [id number] RIGHT 2 VWSUniversadena [facility] Department of Radiology [address] [place] [address] Patient Name: ZACH MANUEL : [...] disease Electronically signed by:Soila Morris. Transcribed by: [email or web address], User Resident: Electronically Signed by: SOILA MORRIS @ 08/23/2018 02:15 [facility] CantonComment on above:Order Comment: , Views (X-RAY, FEMUR): AP, Lateral , Views (X-RAY, FEMUR): AP, Lateral , , , Ordering Provider - ZHENG SCOTT PA-C , FEMUR RIGHT 2 [facility] [id number] RIGHT 2 [facility] Department of Radiology [address] [place] [phone] Patient Name: ZACH MANUEL : 1945 [...] above Electronically signed by:Soila Morris. Transcribed by: [email or web address], User Resident: Electronically Signed by: SOILA MORRIS @ 07/25/2018 02:02 PMNormalSumma Health Barberton CampusComment on above:Order Comment: , , , Ordering Provider - JACQUELINE CROSS PA-C , BASIC METABOLIC PANELon 06-77-2630Ycnvplw [Mass/Vol]8.2 mg/dLLow8.6-10.3The [facility] SpringfieldComment on above:Order Comment: No: Do not add to previous drawPerformed By: #### 10629 #### [facility] [address] [place] [address], USAChloride [Moles/Vol]100 mmol/GArqrki51-005Dyc [facility] SpringfieldComment on above:Order Comment: No: Do not add to previous drawPerformed By: #### 52762 #### [facility] [address] [place] [address], USACO2 [Moles/Vol]25 mmol/SKfrfrx63-66Xrq [facility] SpringfieldComment on above:Order Comment: No: Do not add to previous draw Performed By: #### 02218 #### [facility] [address] [place] [address], USACreatinine [Mass/Vol]1.11 mg/dLNormal0.70-1.30The [facility] SpringfieldComment on above:Order Comment: No: Do not add to previous drawPerformed By: #### 89745 #### [facility] [address] [place] [address], USAGFR/1.73 sq M predicted among blacks MDRD (S/P/Bld) [Vol rate/Area]mL/min/{1.73_m2}Normal>60The [facility] Comment on above:Order Comment: No: Do not add to previous drawResult Comment: Calculation may not be valid for patients over 70 yearsPerformed By: #### 20865 #### [facility] [address] [place] [address], USAGFR/1.73 sq M predicted among non-blacks MDRD (S/P/Bld) [Vol rate/Area]mL/min/{1.73_m2}Normal>60The [facility] Comment on above:Order Comment: No: Do not add to previous drawResult Comment: Calculation may not be valid for patients over 70 yearsPerformed By: #### 10178 #### [facility] [address] [place] [address], USAGlucose [Mass/Vol]243 mg/nGAknp85-140Hkp [facility] SpringfieldComment on above:Order Comment: No: Do not add to previous drawPerformed By: #### 50594 #### [facility] [address] [place] [address], USAPotassium [Moles/Vol]3.7 mmol/LNormal3.5-5.1The [facility] SpringfieldComment on above:Order Comment: No: Do not add to previous drawPerformed By: #### 21680 #### [facility] [address] [place] [address], USASodium [Moles/Vol]131 mmol/FGdv000-437Emm [facility] SpringfieldComment on above:Order Comment: No: Do not add to previous drawPerformed By: #### 14916 #### [facility] [address] [place] [address], USAUrea nitrogen [Mass/Vol]18 mg/dLNormal7-25The [facility] SpringfieldComment on above:Order Comment: No: Do not add to previous drawPerformed By: #### 40157 #### [facility] [address] [place] [address], USACBC COMPLETE BLOOD COUNTon 72-52-0767Vblwowjamzy distribution width (RBC) [Ratio]12.4 %Gwaoni86.5-15.0The [facility] SpringfieldComment on above:Order Comment: No: Do not add to previous draw Performed By: #### 21491 #### [facility] [address] [place] [address], USAHematocrit (Bld) [Volume fraction]25.4 %Low39.0-50.0The [facility] SpringfieldComment on above:Order Comment: No: Do not add to previous drawPerformed By: #### 33341 #### [facility] [address] [address], USAHemoglobin (Bld) [Mass/Vol]8.6 g/dLLow13.0-17.0The [facility] SpringfieldComment on above:Order Comment: No: Do not add to previous drawPerformed By: #### 00166 #### [facility] [address] [place] [address], [facility] PSYCHIATRIC CENTERIMM PLATELET FRAC5.2 %Normal0.8-6.3The [facility] SpringfieldComment on above:Order Comment: No: Do not add to previous draw Performed By: #### 93723 #### [facility] [address] [place] [address], [facility] (RBC) [Entitic mass]31.4 kfSraeay82.0-33.0The [facility] SpringfieldComment on above:Order Comment: No: Do not add to previous drawPerformed By: #### 04423 #### [facility] [address] [place] [address], [facility] STROUDHC (RBC) [Mass/Vol]33.9 g/dAXfjqxd73.0-35.0The [facility] SpringfieldComment on above:Order Comment: No: Do not add to previous drawPerformed By: #### 95210 #### [facility] [address] [place] [address], [facility]DV (RBC) [Entitic vol]92.7 qZUduocp04.0-98.0The [facility] SpringfieldComment on above:Order Comment: No: Do not add to previous drawPerformed By: #### 66714 #### [facility] [address] [facility] [address], USANucleated RBC/100 WBC (Bld) [Ratio]0 %Normal0-0The [facility] SpringfieldComment on above:Order Comment: No: Do not add to previous drawPerformed By: #### 42933 #### [facility] [address] [facility] [place] [address], USAPLAT JDP404 10*3/xYVqo337-245Iiu [facility] SpringfieldComment on above:Order Comment: No: Do not add to previous draw Performed By: #### 12494 #### [facility] [address] [place] [address], USARBC (Bld) [#/Vol]2.74 10*6/uLLow4.20-5.70The [facility] SpringfieldComment on above:Order Comment: No: Do not add to previous drawPerformed By: #### 16023 #### [facility] [address] [place] [address], USAWBC (Bld) [#/Vol]6.87 10*3/uLNormal4.00-10.60The [facility] SpringfieldComment on above:Order Comment: No: Do not add to previous drawPerformed By: #### 12852 #### [facility] [address] [place], [place] [address], USAPOC GLUCOSE LABon 49-88-9024Nfdautg [Mass/Vol]281 mg/dLHigh 70-100The [facility] SpringfieldComment on above:Performed By: #### 43658 #### [facility] [address] [place], [place] [address], USAGlucose [Mass/Vol]250 mg/xCJako53-577Era [facility] SpringfieldComment on above:Performed By: #### 31643, 20273 #### [facility] [address] [place] [address], USAGlucose [Mass/Vol]240 mg/xQEtbo00-634Ypk [facility] SpringfieldComment on above:Performed By: #### 15838, 94251 #### [facility] [address] [place], [place] [address], USABASIC METABOLIC PANELon 80-10-2437Bushogr [Mass/Vol]8.0 mg/dLLow8.6-10.3The [facility] SpringfieldComment on above:Order Comment: No: Do not add to previous drawPerformed By: #### 69667, 46389 #### [facility] [address] [place] [address], USAChloride [Moles/Vol]101 mmol/OIuohtb89-983Ecl [facility] SpringfieldComment on above:Order Comment: No: Do not add to previous drawPerformed By: #### 23165, 74735 #### [facility] [address] [place] [address], USACO2 [Moles/Vol]25 mmol/ZOocrmp18-25Wgl [facility] SpringfieldComment on above:Order Comment: No: Do not add to previous draw Performed By: #### 99028, 71509 #### [facility] [address] [place] [address], USACreatinine [Mass/Vol]1.23 mg/dLNormal0.70-1.30The [facility] SpringfieldComment on above:Order Comment: No: Do not add to previous drawPerformed By: #### 83673, 92989 #### [facility] [address] [place] [address], USAGFR/1.73 sq M predicted among blacks MDRD (S/P/Bld) [Vol rate/Area]mL/min/{1.73_m2}Normal>60The [facility] Comment on above:Order Comment: No: Do not add to previous drawResult Comment: Calculation may not be valid for patients over 70 yearsPerformed By: #### 97553, 88470 #### [facility] [address] [place] [address], USAGFR/1.73 sq M predicted among non-blacks MDRD (S/P/Bld) [Vol rate/Area]58 ml/min/1.73sq mAbnormal>60The [facility] SpringfieldComment on above:Order Comment: No: Do not add to previous drawResult Comment: Calculation may not be valid for patients over 70 yearsPerformed By: #### 56877, 37733 #### [facility] [address] [place] [address], USAGlucose [Mass/Vol]207 mg/wLXtkw07-301Wjd [facility] SpringfieldComment on above:Order Comment: No: Do not add to previous drawPerformed By: #### 20254, 70235 #### [facility] [address] [place] [address], USAPotassium [Moles/Vol]3.7 mmol/LNormal3.5-5.1The [facility] SpringfieldComment on above:Order Comment: No: Do not add to previous drawPerformed By: #### 66851, 04066 #### [facility] [address] [place] [address], USASodium [Moles/Vol]130 mmol/NYpv975-489Qbk [facility] SpringfieldComment on above:Order Comment: No: Do not add to previous drawPerformed By: #### 88667, 10589 #### [facility] [address] [place] [address], USAUrea nitrogen [Mass/Vol]16 mg/dLNormal7-25The [facility] SpringfieldComment on above:Order Comment: No: Do not add to previous drawPerformed By: #### 28223, 34790 #### [facility] [address] [facility] [address], UNM PSYCHIATRIC CENTERCBC W/DIFFon 46-69-1380WFH BASOPHILS0.0 10*3/uLNormal 0.0-0.2The [facility] SpringfieldComment on above:Order Comment: No: Do not add to previous drawPerformed By: #### 51963, 34159 #### [facility] [address] [address], USAABS IMM GRANS0.1 10*3/uLNormal0.0-0.2The [facility] SpringfieldComment on above:Order Comment: No: Do not add to previous drawPerformed By: #### 93078, 03063 #### [facility] [address] [place] [address], UN[facility] PSYCHIATRIC CENTERABS NEUTROPHILS7.6 10*3/uLNormal1.6-7.6The [facility] SpringfieldComment on above:Order Comment: No: Do not add to previous drawPerformed By: #### 52162, 67900 #### [facility] [address] [address], USABasophils/100 WBC (Bld)0.3 %Normal0.0-1.0The [facility] SpringfieldComment on above:Order Comment: No: Do not add to previous drawPerformed By: #### 35755, 63612 #### [facility] [address] [facility] [place] [address], USAEosinophils (Bld) [#/Vol]0.1 10*3/uLNormal0.0-0.5The [facility] SpringfieldComment on above:Order Comment: No: Do not add to previous drawPerformed By: #### 36816, 18019 #### [facility] [address] [address], USAEosinophils/100 WBC (Bld)1.6 %Normal0.0-6.0The [facility] SpringfieldComment on above:Order Comment: No: Do not add to previous drawPerformed By: #### 31302, 15535 #### [facility] [address] [facility] [place] [address], USAErythrocyte distribution width (RBC) [Ratio]12.5 %Normal 11.5-15.0The [facility] SpringfieldComment on above:Order Comment: No: Do not add to previous drawPerformed By: #### 86661, 64775 #### [facility] [address] [facility] [place] [address], USAHematocrit (Bld) [Volume fraction]26.0 %Low39.0-50.0The [facility] SpringfieldComment on above:Order Comment: No: Do not add to previous drawPerformed By: #### 50384, 91334 #### [facility] [address] [place] [address], USAHemoglobin (Bld) [Mass/Vol]8.8 g/dLLow13.0-17.0The [facility] SpringfieldComment on above:Order Comment: No: Do not add to previous drawPerformed By: #### 16722, 76452 #### [facility] [address] [place] [address], USAIMM PLATELET FRAC4.5 %Normal0.8-6.3The [facility] SpringfieldComment on above:Order Comment: No: Do not add to previous draw Performed By: #### 87017, 19949 #### [facility] [address] [place] [address], USAIMMATURE GRANS0.6 %Normal0.0-1.0The [facility] SpringfieldComment on above:Order Comment: No: Do not add to previous draw Performed By: #### 47732, 26639 #### [facility] [address] [place] [address], USALymphocytes (Bld) [#/Vol]0.2 10*3/uLLow1.2-4.0The [facility] SpringfieldComment on above:Order Comment: No: Do not add to previous drawPerformed By: #### 51110, 17761 #### [facility] [address] [place] [address], USALymphocytes/100 WBC (Bld)2.1 %Low20.0-45.0The [facility] SpringfieldComment on above:Order Comment: No: Do not add to previous drawPerformed By: #### 91753, 30995 #### [facility] [address] [place] [address], USAMCH (RBC) [Entitic mass]31.7 rdSpkqjw75.0-33.0The [facility] SpringfieldComment on above:Order Comment: No: Do not add to previous drawPerformed By: #### 73105, 77112 #### [facility] [address] [place] [address], [facility] PSYCHIATRIC CENTERMCHC (RBC) [Mass/Vol]33.8 g/hUPpdqtv90.0-35.0The [facility] SpringfieldComment on above:Order Comment: No: Do not add to previous drawPerformed By: #### 90352, 45149 #### [facility] [address] [place] [address], UN[facility] PSYCHIATRIC CENTERMCV (RBC) [Entitic vol]93.5 cTPtdxca42.0-98.0The [facility] SpringfieldComment on above:Order Comment: No: Do not add to previous drawPerformed By: #### 62393, 07025 #### [facility] [address] [place] [address], USAMonocytes (Bld) [#/Vol]0.6 10*3/uLNormal0.1-1.0The [facility] SpringfieldComment on above:Order Comment: No: Do not add to previous drawPerformed By: #### 62417, 32979 #### [facility] [address] [place] [address], USAMONOS7.1 %Normal5.0-12.0The [facility] SpringfieldComment on above:Order Comment: No: Do not add to previous drawPerformed By: #### 79043, 32534 #### [facility] [address] [place] [address], USANeutrophils/100 WBC (Bld)88.3 %High40.0-72.0The [facility] SpringfieldComment on above:Order Comment: No: Do not add to previous drawPerformed By: #### 05405, 04487 #### [facility] [address] [place] [address], USANucleated RBC/100 WBC (Bld) [Ratio]0 %Normal0-0The [facility] SpringfieldComment on above:Order Comment: No: Do not add to previous drawPerformed By: #### 02204, 62224 #### [facility] [address] [place] [place] [address], USAPLAT BML924 10*3/yZVul375-054Olp [facility] SpringfieldComment on above:Order Comment: No: Do not add to previous draw Performed By: #### 24865, 47566 #### [facility] [address] [place] [address], USARBC (Bld) [#/Vol]2.78 10*6/uLLow4.20-5.70The [facility] SpringfieldComment on above:Order Comment: No: Do not add to previous drawPerformed By: #### 98564, 13153 #### [facility] [address] [place] [address], USAWBC (Bld) [#/Vol]8.62 10*3/uLNormal4.00-10.60The [facility] SpringfieldComment on above:Order Comment: No: Do not add to previous drawPerformed By: #### 68980, 41060 #### [facility] [address] [place] [address], USAPOC GLUCOSE LABon 96-01-3007Puepldz [Mass/Vol]281 mg/dLHigh 70-100The [facility] SpringfieldComment on above:Performed By: #### 46478, 33003 #### [facility] [address] [place] [address], USAGlucose [Mass/Vol]305 mg/pFDhmt20-288Tsk [facility] SpringfieldComment on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 %Uriel Gunter MD Work Phone: [facility]03-14-2023 13:00-0400Systolic blood mm[Hg]Uriel Gunter MD Work Phone: [facility]12-20-2022 15:00-0500Body eyynoa431.3 Justin Gunter MD Work Phone: [facility]12-20-2022 15:00-0500Body temperature 97.59 [degF]Uriel Gunter MD Work Phone: [facility]12-20-2022 15:00-0500Body bbvjwe55.82 kgUriel Gunter MD Work Phone: [facility]12-20-2022 15:00-0500Diastolic blood xzydmjmb28 mm[Hg]Uriel Gunter MD Work Phone: [facility]12-20-2022 15:00-0500Heart rate67 /min Uriel Gunter MD Work Phone: [facility]12-20-2022 15:00-0500Respiratory rate 18 /minUriel Gunter MD Work Phone: [facility]12-20-2022 15:00-5410DqL6% (BldA) [Mass fraction]97 %Uriel Gunter MD Work Phone: [facility]12-20-2022 15:00-0500Systolic blood lpesefia744 mm[Hg]Uriel Gunter MD Work Phone: [facility]09-27-2022 12:37-0400Body njnral487.[address] PAPER PRODUCTS INSPECTOR.DIE REPAIRER FORGING Work Phone: [facility]09-27-2022 12:37-0400Body temperature 97.11 [degF]Becca Lane PAPER PRODUCTS INSPECTOR.DIE REPAIRER FORGING Work Phone: [facility]09-27-2022 12:37-0400Body sgoevd23.[address] PAPER PRODUCTS INSPECTOR.DIE REPAIRER FORGING Work Phone: [facility]09-27-2022 12:37-0400Diastolic blood ufvmlmcu54 mm[Hg]Becca Lane PAPER PRODUCTS INSPECTOR.DIE REPAIRER FORGING Work Phone: [facility]09-27-2022 12:37-0400Heart rate79 /min Becca Lane PAPER PRODUCTS INSPECTOR.DIE REPAIRER FORGING Work Phone: [facility]09-27-2022 12:37-0400Respiratory rate 16 /minBecca Lane PAPER PRODUCTS INSPECTOR.DIE REPAIRER FORGING Work Phone: [facility]09-27-2022 12:37-1964KkF5% (BldA) [Mass fraction]97 %Becca Lane PAPER PRODUCTS INSPECTOR.DIE REPAIRER FORGING Work Phone: [facility]09-27-2022 12:37-0400Systolic blood bbixkwkr807 mm[Hg]Becca Lane PAPER PRODUCTS INSPECTOR.DIE REPAIRER FORGING Work Phone: [facility]06-28-2022 12:49-0400Body .3 Justin Gunter MD Work Phone: [facility]06-28-2022 12:49-0400Body temperature 97 [degF]Uriel Gunter MD Work Phone: [facility]06-28-2022 12:49-0400Body gbgqyn75.81 kgUriel Gunter MD Work Phone: [facility]06-28-2022 12:49-0400Diastolic blood okprbmti76 mm[Hg]Uriel Gunter MD Work Phone: [facility]06-28-2022 12:49-0400Heart rate65 /min Uriel Gunter MD Work Phone: [facility]06-28-2022 12:49-0400Respiratory rate 16 /minUriel Gunter MD Work Phone: [facility]06-28-2022 12:49-3983InI0% (BldA) [Mass fraction]100 %Uriel Gunter MD Work Phone: [facility]06-28-2022 12:49-0400Systolic blood ahqwymvw290 mm[Hg]Uriel Gunter MD Work Phone: [facility]05-03-2022 12:42-0400Body .3 cmUriel Gunter MD Work Phone: [facility]05-03-2022 12:42-0400Body temperature 98.01 [degF]Uriel Gunter MD Work Phone: [facility]05-03-2022 12:42-0400Body .91 Colton Gunter MD Work Phone: [facility]05-03-2022 12:42-0400Diastolic blood ulovbjib38 mm[Hg]Uriel Gunter MD Work Phone: [facility]05-03-2022 12:42-0400Heart rate64 /min Uriel Gunter MD Work Phone: [facility]05-03-2022 12:42-0400Respiratory rate 18 /minUriel Gunter MD Work Phone: [facility]05-03-2022 12:42-2500VtM3% (BldA) [Mass fraction]98 %Uriel Gunter MD Work Phone: [facility]05-03-2022 12:42-0400Systolic blood wpqxplyz440 mm[Hg]Uriel Gutner MD Work Phone: [facility] Encounters Encounter DateEncounter TypeCare ProviderFacilityStart: 81-01-5768ojosabzbst Manny R NILLFacility:[facility] SystemsevueStart: 94-00-4475lbpywgaettFbdkccd NILL Facility: [place]vueStart: 02-27-2025 End: 99-93-6274MxniizKbndd R Murphy MD Work Phone: [facility] PharmacyComment on above: Refill RequestStart: 02-19-2025 End: 42-16-3565Lxuhnp-up encounterUriel Gunter MD Work Phone: Hematology/OncologyComment on above:ResultsStart: 02-17-2025 End: 16-32-2697Qcifxdp encounter procedureUriel Gunter MD Work Phone: Hematology/OncologyStart: 02-17-2025 End: 21-97-6445wvsnernxswBgvgn [address] Work Phone: Hematology/OncologyComment on above:Multiple myeloma not having achieved remission (HCC) (Primary Dx); Paget disease of boneMultiple myeloma not having achieved remission (HCC) (Primary Dx); Paget disease of bone; H/O ulcerative colitis; Stage 3b chronic kidney disease (HCC)Start: 12-11-2024 End: 80-94-8470JennsyKlwosyp Morrow [facility] Work Phone: [facility] PharmacyComment on above: Refill RequestStart: 11-20-2024 End: 56-88-6205Jsplwqlkip and management of inpatientDAVID Jessica ZARATEMcCullough-Hyde Memorial Hospitaltart: 11-20-2024 End: 33-77-6323Cynwdczhbv and management of inpatientSUSAN Rachel STAPLETONMcCullough-Hyde Memorial Hospitaltart: 11-19-2024 End: 29-07-6934yghjkealshOwt Pat Phone Call Provider [address] [place] [address] - Pre AdmitStart: 11-19-2024 End: 41-95-2151fuqmehwmnmZKNRK E SMITHMcCullough-Hyde Memorial Hospitaltart: 11-17-2024 End: 68-19-8292YupxseHgwgj R Murphy MD Work Phone: [facility] PharmacyComment on above: Refill RequestStart: 10-30-2024 End: 25-71-7716Cohlzpuknu and management of inpatientCYLE [facility] Hospitaltart: 10-30-2024 End: 40-49-4987Jqapqzfwbf and management of inpatientSUSAN Rachel TriHealthtart: 10-10-2024 End: 08-87-9885WbrtwoIypkbnx McKitrick [facility] Work Phone: [facility] PharmacyComment on above: Refill RequestStart: 10-09-2024 End: 34-15-4162umrcrbqfxoGQKET M SOMMERSMcCullough-Hyde Memorial Hospitaltart: 71-64-4440Hjxrpovta for other preprocedural examinationDOUGLAS [facility] Shawtart: 10-09-2024 End: 49-48-1578Uafdanw encounter procedurePm Pre-Admission Testing [address] [place] [address] - Pre AdmitComment on above:Preop examination (Primary Dx)Start: 10-09-2024 End: 31-68-1562Ujwujvsinyavb examination donePm[address] SystemStart: 09-11-2024 End: 17-62-4869EcavksRwggcAnusha Gunter MD Work Phone: [facility] PharmacyComment on above: Refill RequestStart: 08-11-2024 End: 36-27-3637AssvzzIorhgAnusha Gunter MD Work Phone: [facility] PharmacyComment on above: Refill RequestStart: 07-25-2024 End: 54-98-7111kvzedylwtpOuoljseMiki Woodson RPh Work Phone: [facility] HB-3Start: 07-25-2024 End: 02-37-0463L-mail encounter from Paulette YoungerNamkristi [facility] Work Phone: [facility] HB-3Start: 06-30-2024 End: 46-05-5066MkbbkuNororAnusha Gunter MD Work Phone: [facility] PharmacyComment on above: Refill RequestStart: 06-04-2024 End: 68-18-7719IinlmlVjaaq R Murphy MD Work Phone: [facility] PharmacyComment on above: Refill RequestStart: 05-29-2024 End: 18-73-5435Nllueeadc encounterResaad Ferguson RN Work Phone: Hematology/OncologyComment on above:Care Coordination (Lab Results)Start: 05-27-2024 End: 77-63-9245Hdurdcwnh encounterMinjessee Hilario PA-C Work Phone: Hematology/OncologyComment on above:ResultsStart: 05-27-2024 End: 10-21-8485Dvimzf outpatient visit 15 minutesLatrice Hilario PA-C Work Phone: Hematology/OncologyComment on above:Multiple myeloma not having achieved remission (HCC) (Primary Dx); Type 2 diabetes mellitus without complication, with long-term current use of insulin (HCC)Start: 05-27-2024 End: 25-78-2201cmdvbugbjvVTHKUCN M HOYFacility:[facility] HospitalStart: 05-20-2024 End: 73-03-7998Hqumfeoms encounterLatrice Hilario PA-C Work Phone: Hematology/OncologyComment on above:Lab OrdersStart: 00-85-8210MdsmckOtfmvgc [facility] Work Phone: [facility] HB-3Comment on above:Refill Request Start: 36-82-9222OzjaqzByocoAnusha Gunter MD Work Phone: [facility] PharmacyComment on above: Refill RequestStart: 33-16-3255OcyjkyNdrosAnusha Gunter MD Work Phone: [facility] PharmacyComment on above: Refill RequestStart: 24-45-3743Vhmhzhxwd encounterResaad Ferguson RN Work Phone: Hematology/OncologyComment on above:Care Coordination (Labs)Start: 02-26-2024 End: 79-12-2225Paldmoc encounter David Gunter MD Work Phone: Hematology/OncologyStart: 02-26-2024 End: 91-17-1115ykqosdunscEqmod [address] [place] Work Phone: Hematology/OncologyComment on above:Multiple [...] CKD (HCC); Elevated prostate specific antigen (PSA)Start: 09-93-8789QhgocdNlgifxb [facility] Work Phone: [facility] PharmacyComment on above: Refill Request (revlimid)Start: 28-75-2932NbohvgZqdeaph Morrow [facility] Work Phone: [facility] PharmacyComment on above: Refill RequestStart: 60-18-4392GorswtFiftxAnusha Gunter MD Work Phone: [facility] ServicesComment on above:Refill Request Start: 39-78-9246SxvdelRembwdi Morrow [facility] Work Phone: [facility] PharmacyComment on above: Refill RequestStart: 11-27-2023 End: 67-66-1002lccizlpvklMyeue Martinez APRN.DIE REPAIRER FORGING Work Phone: Hematology/OncologyComment on above:Multiple myeloma not having achieved remission (HCC) (Primary Dx); Paget disease of bone; Type 2 diabetes mellitus without complication, with long-term current use of insulin (HCC); H/O ulcerative colitis; Elevated prostate specific antigen (PSA); Stage 3b chronic kidney disease (HCC)Start: 11-27-2023 End: 30-97-1324Hgrzfya encounter Mallory Lane APRN.DIE REPAIRER FORGING Work Phone: [place]KYStart: 55-48-9452Wmwutrjyd encounterUriel Gunter MD Work Phone: Hematology/OncologyComment on above:Lab OrdersStart: 31-36-1156GhkklxJiiwaRocky Hatfield MD Work Phone: [facility] Pharm ServicesComment on above:Refill Request Start: 08-28-2023 End: 53-52-3029ippydohihsYkizs [address] [place] Work Phone: Hematology/OncologyComment on above:Multiple myeloma, remission status unspecified (HCC) (Primary Dx)Multiple myeloma not having achieved remission (HCC) (Primary Dx); Paget disease of bone; Stage 3b chronic kidney disease (HCC); Type 2 diabetes mellitus without complication, with long-term current use of insulin (HCC); H/O ulcerative colitis; Elevated prostate specific antigen (PSA)Start: 08-28-2023 End: 53-07-9414Vidhnsk encounter David Gunter MD Work Phone: SANDUSKYStart: 89-97-2182YhqbmhHsuzd R Murphy MD Work Phone: [facility] Pharm ServicesComment on above:Refill Request Start: 39-54-0470IakphuTtaacnc [facility] Work Phone: [facility] PharmacyComment on above: Refill RequestStart: 23-67-0623Acrzcroqq encounterBozena Roland RN Hematology/OncologyComment on above:ResultsStart: 05-29-2023 End: 87-05-3588ejzebfyyvuMmmrx R Murphy MD Work Phone: Hematology/OncologyComment on above:Multiple myeloma not having achieved remission (HCC) (Primary Dx); Stage 3b chronic kidney disease (HCC); Type 2 diabetes mellitus without complication, with long-term current use of insulin (HCC); Paget disease of bone; H/O ulcerative colitisStart: 05-29-2023 End: 28-43-3205Teuisim encounter David Gunter MD Work Phone: SANDUSKYStart: 18-14-0917EgyitxPropy Karamlou MD Work Phone: [facility] ServicesComment on above:Refill Request Start: 39-60-9369Vixbmnipm Rashmi Gunter MD Work Phone: Hematology/OncologyComment on above:Lab OrdersStart: 10-85-8256BwimygBjlevec [facility] Work Phone: [facility] HB-3Comment on above:Refill Request Start: 12-80-2246KlwdmuGvycxsj [facility] Work Phone: [facility] PharmacyComment on above: Refill RequestStart: 85-04-9008AppnhhUkctjes [facility] Work Phone: [facility] PharmacyComment on above: Refill RequestStart: 12-05-2022 End: 89-37-3662tlgndqoasfQublh [address] [place] Work Phone: Hematology/OncologyComment on above:Multiple myeloma, remission status unspecified (HCC) (Primary Dx)Multiple myeloma not having achieved remission (HCC) (Primary Dx); Paget disease of bone; Type 2 diabetes mellitus without complication, with long-term current use of insulin (HCC); Elevated prostate specific antigen (PSA)Start: 12-05-2022 End: 02-52-9754Acvlvjj encounter David Gunter MD Work Phone: SANDUSKYStart: 29-25-4320Nlfxupxxl encounterUriel Gunter MD Work Phone: Hematology/OncologyComment on above:Lab OrdersStart: 27-24-8519BlrwlcCfslswm Adame [facility] Work Phone: [facility] -3Comment on above:Refill Request Start: 76-36-5245FjssrqTnswrwn [facility] Work Phone: [facility] PharmacyComment on above: Refill RequestStart: 06-84-8351AutcxsPtpsiey [facility] Work Phone: Hematology/OncologyComment on above:Refill Request Start: 09-12-2022 End: 95-90-5670qtrwzcgxqeRyqyq R Murphy MD Work Phone: Hematology/OncologyComment on above:Multiple myeloma not having achieved remission (HCC) (Primary Dx); Paget disease of bone; Type 2 diabetes mellitus without complication, with long-term current use of insulin (HCC); Elevated prostate specific antigen (PSA); H/O ulcerative colitisStart: 09-12-2022 End: 67-48-2600Uxoxtdm encounter procedureUriel Gunter MD Work Phone: SANDUSKYStart: 08-28-2022 End: 32-34-6690lgvdxpoyymJL HANNA BRANHAMYFacility:A8Cozfw: 49-72-7233SfgkowWkuipup [facility] Work Phone: Hematology/OncologyComment on above:Refill Request Start: 47-31-5738Gjuvycqsr encounterRebecca SesslerHematology/OncologyComment on above:Care Coordination (Calcium)Start: 06-20-2022 End: 15-82-2817thmmvowcaoAphqr [address] [place] Work Phone: Hematology/OncologyComment on above:Multiple myeloma, remission status unspecified (HCC) (Primary Dx)Multiple myeloma not having achieved remission (HCC) (Primary Dx); Paget disease of bone; Type 2 diabetes mellitus without complication, with long-term current use of insulin (HCC); Elevated prostate specific antigen (PSA)Start: 06-20-2022 End: 47-13-2527Enkgjlv encounter Mallory Lane APRN.CNP Work Phone: SANDUSKYStart: 25-30-4756WgsjroAresaco Morrow [facility] Work Phone: [facility] Pharm ServicesComment on above:Refill Request Start: 85-34-5506Alhfgljxs encounterUriel Gunter MD Work Phone: Hematology/OncologyComment on above:Lab OrdersStart: 27-36-9565ZgacyqJjiwgxz McKitrick [facility] Work Phone: Hematology/OncologyComment on above:Refill Request Start: 71-03-5894InwtejZetzz [facility] Work Phone: [facility] HB-3Comment on above:Refill Request Start: 83-71-1766LvpfxuKjtaj Antoine [facility] Work Phone: [facility] HB-3Comment on above:Refill Request (lenalidomide)Primary Care Sales Representative - Other ([facility]ly [facility] benjamin obtained)Start: 45-16-0788Kuogumxqd encounterFunmilayo Arriola RNHematology/OncologyComment on above:ResultsStart: 03-24-2022 End: 48-78-2182hfzdaurebhJV DOUGLAS HOYFacility:E4Atgqx: 03-21-2022 End: 07-15-3705mupmzwtmspKoxth R Murphy MD Work Phone: Hematology/OncologyComment on above:Multiple myeloma not having achieved remission (HCC) (Primary Dx); Paget disease of bone; Type 2 diabetes mellitus without complication, with long-term current use of insulin (HCC); H/O ulcerative colitis; Elevated prostate specific antigen (PSA)Start: 03-21-2022 End: 91-34-8272Ioysqvb encounter David Gunter MD Work Phone: SANDUSKYStart: 03-15-2022 End: 00-61-0010jlyxnlffzrXBPhilip Jamisonity:L0Acwmp: 03-14-2022 End: 94-45-3805dtnsschxobYP HANNA HOYFacility:F3Mpccd: 36-95-7652LckhxqGkxntvc McKitkristi [facility] Work Phone: Hematology/OncologyComment on above:Refill Request Start: 03-56-9721PmejvjYygoe Schmitt [facility] Work Phone: [facility] HB-3Comment on above:Refill Request Start: 01-24-2022 End: 63-18-7492ccltizukmjAgdui R Murphy MD Work Phone: Hematology/OncologyComment on above:Multiple myeloma not having achieved remission (HCC) (Primary Dx); Paget disease of bone; Type 2 diabetes mellitus without complication, with long-term current use of insulin (HCC); H/O ulcerative colitisStart: 01-24-2022 End: 76-01-2511Ggvljgr encounter procedureUriel Gunter MD Work Phone: SANDUSKYStart: 09-61-8033FrgmhhWkbbdot Morrow [facility] Work Phone: [facility] Pharm ServicesComment on above:Refill Request Start: 12-20-2021 End: 75-86-0166tntsjducakVX ROXANA WATERSFacility:Y7Qrjzj: 11-10-2021 End: 04-95-2140oaitlgpjezEC ROXANA WATERSFacility:W3Qdvtd: 09-12-2021 End: 06-33-1759smjnnimiaeFY HANNA HOYFacility:Y4Kctmi: 09-10-2021 End: 28-34-4368bwzudpicttDO HANNA HOYFacility:M5Bdtku: 07-13-2018 End: 30-09-0163Xmrqkcuuli and management of inpatientDOUGLAS HOYFacility:[facility] Procedures DateProcedureProcedure DetailPerforming ClinicianStart: 25-50-6408Zqneb depression screening assessmentUriel Gunter MD Work Phone: Start: 98-11-7796RGN screeningDR HANNA HOYComment on above:Performed By: #### PSASC #### [facility] [address] [address] [address] Tigre Maldonado: 22-16-9879EIP screeningDR HANNA HOYComment on above: Performed By: #### PSAD #### [facility] [address] [address] [address] Tigre Villaltaart: 15-46-4008Tbjwo depression screening assessmentBridget Wendi [facility] Work Phone: Start: 29-14-5104NUSAQZDCOY R UP FEMUR WITH INTRAMED FIX, PERC APPROACHNABIL EBRAHEIMStart: 94-32-5115TQCFPRTZWQAV OF SERUM/TOX/VACCINE INTO MUSCLE, PERC APPROACHYASIR AL-ABBOODIStart: 07-13-2018 Antibody screenDOUGLAS HOYComment on above:Performed By: #### [id number] #### [address] Plan of Treatment DateCare ActivityDetailAuthorStart: 53-51-4231Xcdgvskp blood count Hemoglobin/HematocritIndependence ClinicStart: 19-59-0074Vqoyiwznby measurement Serum CreatinineCleFirelands Regional Medical Centertart: 02-46-7315Tnrzyjd ScreeningTobacco ScreeningProRiverside Methodist Hospitalca Memorial Hospital SystemStart: 23-92-5950Fublxvl ScreeningTobacco ScreeningProRiverside Methodist Hospitalca Memorial Hospital SystemStart: 08-18-2025 End: 20-41-7292Eoypac-up encounterHematology/OncologyComment on above:6 month follow up with labStart: 08-18-2025 End: 02-32-6033Lcimdvc encounter ivsmrtjto49/25/2025 10:15 AM EST Office Visit [facility] [address] [place] [address] [place] [address] 6 month follow up with labNortHenry Ford Hospital LaboratoryComment on above:6 month follow up with labStart: 36-33-8383Rkndcrtk blood countHemoglobin/HematocritIndependence ClinicStart: 68-43-8131Qoqysqwiui measurementSerum CreatinineClegreene memorial hospital ClinicStart: 32-56-3690Wvyiwxgjs vaccinationInfluenza Vaccine (Season Ended)[facility] Centertart: 02-25-2025 Complete blood countHemoglobin/HematocritUniversity Hospitals St. John Medical Centertart: 02-25-2025 Creatinine [address]Serum CreatinineUniversity Hospit[address]. John Medical Centertart: 02-17-2025 End: 27-18-5453IMQQTJBZKL PROTEIN, SERUM (BLOOD)[facility] HospitalComment on above:Expected: 02/17/2025, Expires: 05/19/2025Start: 02-17-2025 End: 01-58-5676XCIL ELECT SERUM WITH TOÑITO AND INTERACMC [facility] Work Phone: Comment on above:Expected: 02/17/2025, Expires: 05/19/2025Start: 07-48-9736Qidtn-19 Vaccine (10 - Mixed Product risk season)Covid-19 Vaccine (10 - Mixed Product risk season)[facility] Start: 65-46-5987Gqmomrtv blood countHemoglobin/HematocritUniversity Hospitals St. John Medical Centertart: 06-07-2811Dkqirgbclv measurementSerum CreatinineUniversity Hospitals St. John Medical Centertart: 11-20-2024 End: 65-75-4272Gezanlapb to same day surgery hnnbli0611/20/2024 9:45 AM EST - 11/20/2024 10:30 AM EST Surgery [facility] - Surgery [address] [place] [address] Bernardo Stapleton MD [address] [place] [address] EXTRACTION CATARACT INTRAOCULAR LENS [41240 (CPT )][facility] - SurgeryComment on above:EXTRACTION CATARACT INTRAOCULAR LENS [61782 (CPT )] Start: 95-41-9408Peqbtfyrws hospital visit by ahmkpiiyy56/27/2025 9:45 AM EST Hospital Encounter [facility] Surgery [address] [place] [address] Bernardo Stapleton MD [address] [place] [address] [facility] - SurgeryStart: 11-20-2024 End: 71-68-9519Rqtjci ctrc rmvl insj io lens prosth w/o ecpFREMONT SURGERYStart: 11-19-2024 End: 39-99-8086rouwgydame22/26/2025 3:50 PM EST Support Visit [facility] - [facility] Admit [address] [place] [address] [facility] AdmitStart: 10-30-2024 End: 19-87-1504Rgktfuceu to same day surgery qyncim4810/30/2024 9:45 AM EST - 10/30/2024 10:30 AM EST Surgery [facility] - Surgery [address] [place] [address] Bernardo Stapleton MD [address] [place] [address] EXTRACTION CATARACT INTRAOCULAR LENS [95480 (CPT )][facility] - SurgeryComment on above:EXTRACTION CATARACT INTRAOCULAR LENS [12137 (CPT )] Start: 41-09-2105Hadsqfyonh hospital visit by elymrbnbw35/06/2025 9:45 AM EST Hospital Encounter [facility] Surgery [address] [place] [address] Bernardo Stapleton MD [address] [place] [id number] [facility] - SurgeryStart: 10-30-2024 End: 46-10-5042Jqvaps ctrc rmvl insj io lens prosth w/o ecpEXTRACTION CATARACT INTRAOCULAR LENS cataract right eye 10/30/2024 9:45 AM ESTFREMONT SURGERYStart: 90-18-4699Uqgyvdz Directive DiscussionAdvance Directive DiscussionUniversity Hospitals St. John Medical Centertart: 13-08-1319Avrxaudh blood countHemoglobin/HematocritMarietta [facility] Hospital Start: 64-29-0219Haipelxzly measurementSerum CreatinineUniversity Hospitals St. John Medical Centertart: 45-49-0984Ifzeibgnnc/HematocritHemoglobin/HematocritUniversity Hospitals St. John Medical Centertart: 65-60-3655Fysao CreatinineSerum CreatinineUniversity Hospitals St. John Medical Centertart: 08-26-2024 End: 78-55-9830ATJ W Auto Differential panel - BloodCOMPLETE BLOOD COUNT AND DIFFERENTIAL Lab Routine Multiple myeloma not having achieved remission (HCC) Expected: 08/26/2024 (Approximate), Expires: 11/25/2024[place] ClinicComment on above:Expected: 08/26/2024 (Approximate), Expires: 11/25/2024Start: 08-26-2024 End: 27-90-4508Uafgldogajtno metabolic 2000 panel - Serum or PlasmaCOMPREHENSIVE METABOLIC PANEL Lab Routine Multiple myeloma not having achieved remission (HCC) Expected: 08/26/2024 (Approximate), Expires: 11/25/2024[facility] Work Phone: Comment on above:Expected: 08/26/2024 (Approximate), Expires: 11/25/2024Start: 08-26-2024 End: 66-98-6946FUHYB/DANIELS,FREE,SERKAPPA/DANIELS,FREE,SER Lab Routine Multiple myeloma not having achieved remission (HCC) Expected: 08/26/2024 (Approximate), Expires: 11/25/2024[place] ClinicComment on above:Expected: 08/26/2024 (Approximate), Expires: 11/25/2024Start: 08-26-2024 End: 58-28-6476GHGAIRJTVK PROTEIN, SERUM (BLOOD)MONOCLONAL PROTEIN, SERUM (BLOOD) Lab Routine Multiple myeloma not having achieved remission (HCC) E xpected: 08/26/2024 (Approximate), Expires: 11/25/2024[place] ClinicComment on above:Expected: 08/26/2024 (Approximate), Expires: 11/25/2024Start: 08-26-2024 End: 68-20-5617JDOJBQC ELECTROPHORESIS SERUM W/INTERPPROTEIN ELECTROPHORESIS SERUM W/INTERP Lab Routine Multiple myeloma not having achieved remission (HCC) Expected: 08/26/2024 (Approximate), Expires: 03/04/2025[place] ClinicComment on above:Expected: 08/26/2024 (Approximate), Expires: 11/25/2024Start: 08-26-2024 End: 42-14-0390Tfroxr-up encounterHematology/OncologyComment on above:3 month follow up with lab and arediaStart: 08-26-2024 End: 84-47-4105Lccisaj encounter procedureNortHenry Ford Hospital LaboratoryComment on above:3 month follow up with lab and arediaStart: 43-37-8098FCKWFXUTTI/HEMATOCRITHEMOGLOBIN/HEMATOCRITCleFirelands Regional Medical Centertart: 53-38-5980CYKGI CREATININESERUM CREATININEUniversity Hospitals St. John Medical Centertart: 05-27-2024 End: 59-02-1377Dayxwf-up encounterHematology/OncologyComment on above:3 month follow up with lab and arediaStart: 05-27-2024 End: 89-31-3123Mbomnma encounter yavujfmmo36/03/2024 12:45 PM EDT Office Visit [facility] [address] [place] [address] [place] [address] 3 month follow up with lab and arediaNoBluefield Regional Medical Center LaboratoryComment on above:3 month follow up with lab and aredia Start: 04-55-6654Ykjfy-19 Vaccine ( season)Covid-19 Vaccine ( season)[facility]: 11-52-3054Davtf-19 Vaccine ( season)Covid-19 Vaccine ( season)[facility]: 05-25-[address] John Medical Centertart: 05-20-2024 End: 89-22-7200VPJ W Auto Differential panel - BloodCOMPLETE BLOOD COUNT AND DIFFERENTIAL Lab Routine Multiple myeloma not having achieved remission (HCC) Expected: 05/20/2024, Expires: 08/19/2024[place] ClinicComment on above: Expected: 05/20/2024, Expires: 08/19/2024Start: 05-20-2024 End: 21-16-2803Skdyvdogunagw metabolic 2000 panel - Serum or PlasmaCOMPREHENSIVE METABOLIC PANEL Lab Routine Multiple myeloma not having achieved remission (HCC) Expected: 05/20/2024, Expires: 08/19/2024[facility] Work Phone: Comment on above:Expected: 05/20/2024, Expires: 08/19/2024Start: 05-20-2024 End: 12-40-3004DIOFEMHJXZ PROTEIN, SERUM (BLOOD)MONOCLONAL PROTEIN, SERUM (BLOOD) Lab Routine Multiple myeloma not having achieved remission (HCC) E xpected: 05/20/2024, Expires: 08/19/2024levelunc health southeastern ClinicComment on above: Expected: 05/20/2024, Expires: 08/19/2024Start: 05-20-2024 End: 20-86-3024CHHXZIR ELECTROPHORESIS SERUM W/INTERPPROTEIN ELECTROPHORESIS SERUM W/INTERP Lab Routine Multiple myeloma not having achieved remission (HCC) Expected: 05/20/2024, Expires: 08/19/2024[facility] ClinicComment on above: Expected: 05/20/2024, Expires: 08/19/2024Start: 72-62-5667UAKEUZGPBR/HEMATOCRIT HEMOGLOBIN/HEMATOCRITUniversity Hospitals St. John Medical Centertart: 83-43-0756BSZTJ CREATININESERUM CREATININEUniversity Hospitals St. John Medical Centertart: 02-26-2024 End: 94-83-4696Yxgvxf-up encounterHematology/OncologyComment on above:3 month follow up with lab and arediaStart: 02-26-2024 End: 84-51-9129Vpqrdbd encounter bbrkvsjta65/04/2024 1:00 PM EDT Office Visit [facility] [address] [place] [id number] 3 month follow up with lab and arediaNortHenry Ford Hospital LaboratoryComment on above:3 month follow up with lab and aredia Start: 01-02-2024 End: 70-34-1732ZDVSAZJSJC PROTEIN, SERUM (BLOOD)MONOCLONAL PROTEIN, SERUM (BLOOD) Lab Routine Multiple myeloma not having achieved remission (HCC) Paget disease of bone Type 2 diabetes mellitus without complication, with long-term current use of insulin (HCC) H/O ulcerative colitis Elevated prostate specific antigen (PSA) Stage 3b chronic kidneydisease (HCC) Expected: 01/02/2024, Expires: 04/02/2024[facility] Work Phone: Comment on above:Expected: 01/02/2024, Expires: 04/02/2024Start: 12-05-2023 End: 32-98-4347HOZ W Auto Differential panel - BloodCBC + DIFF Lab Routine Multiple myeloma not having achieved remission (HCC) Paget disease of bone Type 2 diabetes mellitus without complication, with long-term current use of insulin (HCC) H/O ulcerative colitis Elevated prostate specific antigen (PSA) Stage 3b chronic kidney disease (HCC) Expected: 12/05/2023, Expires: 03/05/2024[facility] Work Phone: Comment on above:Expected: 12/05/2023, Expires: 03/05/2024Start: 12-05-2023 End: 90-66-7038Abtephyvymtrz metabolic 2000 panel - Serum or PlasmaCOMP METABOLIC PANEL Lab Routine Multiple myeloma not having achieved remission (HCC) Paget diseaseof bone Type 2 diabetes mellitus without complication, with long- term current use of insulin (HCC) H/O ulcerative colitis Elevated prostate specific antigen (PSA) Stage 3b chronic kidney disease (HCC) Expected: 12/05/2023, Expires: 03/05/2024[facility] Work Phone: Comment on above:Expected: 12/05/2023, Expires: 03/05/2024Start: 12-05-2023 End: 27-08-1847KXFO ELECT SERUM WITH TOÑITO AND INTERPPROT ELECT SERUM WITH TOÑITO AND INTERP Lab Routine Multiple myeloma not having achieved remission (HCC) Expected: 12/05/2023, Expires: 03/05/2024[facility] Work Phone: Comment on above:Expected: 12/05/2023, Expires: 03/05/2024Start: 11-26-2023 End: 33-58-8022Ssyru metabolic 2000 panel - Serum or PlasmaBASIC METABOLIC PNL Lab Routine Multiple myeloma not having achieved remission (HCC) Expected: 11/25, Expires: 02/25/2024[facility] Work Phone: Comment on above:Expected: 11/26/2023, Expires: 02/25/2024Start: 11-26-2023 End: 79-16-0429NGW W Auto Differential panel - BloodCBC + DIFF Lab Routine Multiple myeloma not having achieved remission (HCC) Expected: 11/26/2023, Ex jamie: 02/25/2024[facility] Work Phone: Comment on above:Expected: 11/26/2023, Expires: 02/25/2024Start: 11-26-2023 End: 94-59-2437NLFWUOVNUC PROTEIN, SERUM (BLOOD)MONOCLONAL PROTEIN, SERUM (BLOOD) Lab Routine Multiple myeloma not having achieved remission (HCC) E xpected: 11/26/2023, Expires: 02/25/2024[facility] Work Phone: Comment on above:Expected: 11/26/2023, Expires: 02/25/2024Start: 11-26-2023 End: 86-79-6130HXOS ELECT SERUM WITH TOÑITO AND INTERPPROT ELECT SERUM WITH TOÑITO AND INTERP Lab Routine Multiple myeloma not having achieved remission (HCC) Expected: 11/26/2023, Expires: 02/25/2024[facility] Work Phone: Comment on above:Expected: 11/26/2023, Expires: 02/25/2024Start: 77-25-8838Gzqvvlu Directive DiscussionAdvance Directive DiscussionCleFirelands Regional Medical Centertart: 77-21-3494Phoreeemfy Health ScreeningBehavioral Health ScreeningUniversity Hospitals St. John Medical Centertart: 23-51-3609Frevdlgvbf AssessmentDepression AssessmentCleFirelands Regional Medical Centertart: 22-90-0267Ceqfh-19 Vaccine () Covid-19 Vaccine ()[facility]: 08-28-2023 End: 64-72-8979SXHWGSEOPG PROTEIN, SERUM (BLOOD)[facility] Work Phone: Comment on above:Expected: 08/28/2023, Expires: 11/27/2023Start: 08-28-2023 End: 99-86-6336KIST ELECT SERUM WITH TOÑITO AND INTERPCTriHealth Bethesda Butler Hospital Work Phone: Comment on above:Expected: 08/28/2023, Expires: 11/27/2023Start: 62-17-8885Jzwpq-19 Vaccine ()Covid-19 Vaccine ()[facility]: 68-23-5758Enpwmbdsa vaccination [facility]ertart: 42-60-0891Omtjt depression screening assessmentDEPRESSION SCREENINGUniversity Hospitals St. John Medical Centertart: 03-06-2023 End: 82-88-1995BGP W Auto Differential panel - BloodCBC + DIFF Lab Routine Multiple myeloma not having achieved remission (HCC) Expected: 03/06/2023, Ex jamie: 05/06/2023[facility] Work Phone: Comment on above:Expected: 03/06/2023, Expires: 05/06/2023Start: 03-06-2023 End: 93-13-5626Wxsbwomkndgeh metabolic 2000 panel - Serum or PlasmaCOMP METABOLIC PANEL Lab Routine Multiple myeloma not having achieved remission (HCC) Expected: 03/06/2023, Expires: 05/06/2023[facility] Work Phone: Comment on above:Expected: 03/06/2023, Expires: 05/06/2023Start: 03-06-2023 End: 28-20-9168GJPWYQVMML PROTEIN, SERUM (BLOOD)MONOCLONAL PROTEIN, SERUM (BLOOD) Lab Routine Multiple myeloma not having achieved remission (HCC) E xpected: 03/06/2023, Expires: 05/06/2023[facility] Work Phone: Comment on above:Expected: 03/06/2023, Expires: 05/06/2023Start: 03-06-2023 End: 50-44-4220JLMK ELECT SERUM WITH TOÑITO AND INTERPPROT ELECT SERUM WITH TOÑITO AND INTERP Lab Routine Multiple myeloma not having achieved remission (HCC) Expected: 03/06/2023, Expires: 05/06/2023[facility] Work Phone: Comment on above:Expected: 03/06/2023, Expires: 05/06/2023Start: 12-05-2022 End: 05-68-5604HHT W Auto Differential panel - BloodCBC + DIFF Lab Routine Multiple myeloma not having achieved remission (HCC) Expected: 12/05/2022, Ex jamie: 02/04/2023[facility] Work Phone: Comment on above:Expected: 12/05/2022, Expires: 02/04/2023Start: 12-05-2022 End: 85-14-3355Keyadqhflpwgd metabolic 2000 panel - Serum or PlasmaCOMP METABOLIC PANEL Lab Routine Multiple myeloma not having achieved remission (HCC) Expected: 12/05/2022, Expires: 02/04/2023[facility] Work Phone: Comment on above:Expected: 12/05/2022, Expires: 02/04/2023Start: 12-05-2022 End: 83-82-7092KENILSUYPR PROTEIN, SERUM (BLOOD)MONOCLONAL PROTEIN, SERUM (BLOOD) Lab Routine Multiple myeloma not having achieved remission (HCC) E xpected: 12/05/2022, Expires: 02/04/2023[facility] Work Phone: Comment on above:Expected: 12/05/2022, Expires: 02/04/2023Start: 12-05-2022 End: 75-77-9853NLRO ELECT SERUM WITH TOÑITO AND INTERPPROT ELECT SERUM WITH TOÑITO AND INTERP Lab Routine Multiple myeloma not having achieved remission (HCC) Expected: 12/05/2022, Expires: 02/04/2023[facility] Work Phone: Comment on above:Expected: 12/05/2022, Expires: 02/04/2023Start: 74-72-2287PNCXFHT DIRECTIVE DISCUSSIONADVANCE DIRECTIVE DISCUSSIONClegreene memorial hospital ClinicStart: 58-75-4418JYODGOTUOA ASSESSMENTDEPRESSION ASSESSMENTUniversity Hospitals St. John Medical Centertart: 09-12-2022 End: 77-14-6155IBF W Auto Differential panel - BloodCBC + DIFF Lab Routine Multiple myeloma not having achieved remission (HCC) Paget disease of bone Type 2 diabetes mellitus without complication, with long-term current use of insulin (HCC) Elevated prostate specific antigen (PSA) Expected: 09/12/2022, Expires: 11/12/2022[facility] Work Phone: Comment on above:Expected: 09/12/2022, Expires: 11/12/2022Start: 09-12-2022 End: 84-34-3831Vondmlieazmht metabolic 2000 panel - Serum or PlasmaCOMP METABOLIC PANEL Lab Routine Multiple myeloma not having achieved remission (HCC) Paget diseaseof bone Type 2 diabetes mellitus without complication, with long- term current use of insulin (HCC) Elevated prostate specific antigen (PSA) Expected: 09/12/2022, Expires: 11/12/2022[facility] Work Phone: Comment on above:Expected: 09/12/2022, Expires: 11/12/2022Start: 09-12-2022 End: 19-03-5496KZWEGLIBMH PROTEIN, SERUM (BLOOD)MONOCLONAL PROTEIN, SERUM (BLOOD) Lab Routine Multiple myeloma not having achieved remission (HCC) Paget disease of bone Type 2 diabetes mellitus without complication, with long-term current use of insulin (HCC) Elevated prostate specific antigen (PSA) Expected: 09/12/2022, Expires: 11/12/2022[facility] Work Phone: Comment on above:Expected: 09/12/2022, Expires: 11/12/2022Start: 09-12-2022 End: 52-21-8271BBBI ELECT SERUM WITH TOÑITO AND INTERPPROT ELECT SERUM WITH TOÑITO AND INTERP Lab Routine Multiple myeloma not having achieved remission (HCC) Paget disease of bone Type 2 diabetes mellitus without complication, with long-term current use of insulin (HCC) Elevated prostate specific antigen (PSA) Expected: 09/12/2022, Expires: 11/12/2022[facility] Work Phone: Comment on above:Expected: 09/12/2022, Expires: 11/12/2022Start: 33-72-1390Pshhg depression screening assessmentDEPRESSION SCREENINGUniversity Hospitals St. John Medical Centertart: 78-87-1113CZYTW-19 VACCINE (7 - Mixed Product risk series)COVID-19 VACCINE (7 - Mixed Product risk series)[facility] Start: 06-16-2022 End: 48-62-7046UNK W Auto Differential panel - BloodCBC + DIFF Lab Routine Multiple myeloma not having achieved remission (HCC) Expected: 06/16/2022, Ex jamie: 08/16/2022[facility] Work Phone: Comment on above:Expected: 06/16/2022, Expires: 08/16/2022tart: 06-16-2022 End: 19-50-2225Bdlvxbleqnnhb metabolic 2000 panel - Serum or PlasmaCOMP METABOLIC PANEL Lab Routine Multiple myeloma not having achieved remission (HCC) Expected: 06/16/2022, Expires: 08/16/2022[facility] Work Phone: Comment on above:Expected: 06/16/2022, Expires: 08/16/2022tart: 06-16-2022 End: 11-90-1455WSOQKXDWAX PROTEIN, SERUM (BLOOD)MONOCLONAL PROTEIN, SERUM (BLOOD) Lab Routine Multiple myeloma not having achieved remission (HCC) E xpected: 06/16/2022, Expires: 08/16/2022[facility] Work Phone: Comment on above:Expected: 06/16/2022, Expires: 08/16/2022tart: 06-16-2022 End: 91-82-9209QYNN ELECT SERUM WITH TOÑITO AND INTERPPROT ELECT SERUM WITH TOÑITO AND INTERP Lab Routine Multiple myeloma not having achieved remission (HCC) Expected: 06/16/2022, Expires: 08/16/2022[facility] Work Phone: Comment on above:Expected: 06/16/2022, Expires: 08/16/2022tart: 35-94-0000Cyrjtudsi vaccinationINFLUENZA (#1)[facility] Start: 54-53-3824XPNXL-19 VACCINE (5 - Booster)COVID-19 VACCINE (5 - Booster) [facility]: 03-23-2022 End: 76-54-8750OSY W Auto Differential panel - BloodCBC + DIFF Lab Routine Multiple myeloma not having achieved remission (HCC) Expected: 03/23/2022, Ex jamie: 05/23/2022[facility] Work Phone: Comment on above:Expected: 03/23/2022, Expires: 05/23/2022tart: 03-23-2022 End: 99-68-6825Xtlmuqpmgufgd metabolic 2000 panel - Serum or PlasmaCOMP METABOLIC PANEL Lab Routine Multiple myeloma not having achieved remission (HCC) Expected: 03/23/2022, Expires: 05/23/2022[facility] Work Phone: Comment on above:Expected: 03/23/2022, Expires: 05/23/2022tart: 03-23-2022 End: 37-49-1381XUCNWOJVHW PROTEIN, SERUM (BLOOD)MONOCLONAL PROTEIN, SERUM (BLOOD) Lab Routine Multiple myeloma not having achieved remission (HCC) E xpected: 03/23/2022, Expires: 05/23/2022[facility] Work Phone: Comment on above:Expected: 03/23/2022, Expires: 05/23/2022tart: 03-23-2022 End: 16-61-5932XPCL ELECT SERUM WITH TOÑITO AND INTERPPROT ELECT SERUM WITH TOÑITO AND INTERP Lab Routine Multiple myeloma not having achieved remission (HCC) Expected: 03/23/2022, Expires: 05/23/2022[facility] Work Phone: Comment on above:Expected: 03/23/2022, Expires: 05/23/2022tart: 55-35-4555GCAUX-19 VACCINE (5 - Booster)COVID-19 VACCINE (5 - Booster)[facility]: 58-23-3503UKCJX-19 VACCINE (4 - Booster)COVID-19 VACCINE (4 - Booster)[facility]: 59-60-3208GUEOGMJ DIRECTIVE DISCUSSIONADVANCE DIRECTIVE DISCUSSIONUniversity Hospitals St. John Medical Centertart: 09-24-2021 DEPRESSION ASSESSMENTDEPRESSION ASSESSMENTUniversity Hospitals St. John Medical Centertart: 12-71-3935Lgcf Risk ScreeningFall Risk ScreeningProRiverside Methodist Hospitaltart: 2012 PNEUMOVAX AGE 65 AND OVER WITH 5YR LOOKBACK (#1)PNEUMOVAX AGE 65 AND OVER WITH 5YR LOOKBACK (#1)[facility]: 06-71-1183Qajlkghzd B Vaccine (1 of 3 - Risk 3-dose series)Hepatitis B Vaccine (1 of 3 - Risk 3-dose series)[facility]: 81-24-7296MCI Vaccine (1 - 1-dose 60+ series)RSV Vaccine (1 - 1- dose 60+ series)[facility]: 22-27-7679Hwrpjfemjdcmxr of varicella zoster vaccineZoster (Shingles) Vaccine (1 of 2)[facility]: 72-04-3527RTCKLGJP VACCINE (1 of 2)SHINGRIX VACCINE (1 of 2)[facility] Start: 71-44-7548RYPMPXXZY (FIT-DNA)COLOGUARD (FIT-DNA)[facility]: 84-92-6413CoywthlvbsiWEGXKGDXSZIHhmkilxnp ClinicStart: 56-06-7066LUVTQPXIPM CANCER SCREENINGCOLORECTAL CANCER SCREENINGUniversity Hospitals St. John Medical Centertart: 63-03-5401EV COLONOGRAPHYCT COLONOGRAPHYUniversity Hospitals St. John Medical Centertart: 59-47-5706NWGVS OCCULT BLOOD FECAL OCCULT BLOODUniversity Hospitals St. John Medical Centertart: 60-48-2027ATXTVHKGNQRZLLCJVAOJZWIUGB [facility]: 79-60-5822LPbF,Tdap and Td Vaccines (1 - Tdap)DTaP,Tdap and Td Vaccines (1 - Tdap)[facility]: 04-39-9491Wqluqsudfios Vaccine: 50+ (1 of 2 - PCV)Pneumococcal Vaccine: 50+ (1 of 2 - PCV)[facility]: 36-54-7972VYPZBNNP VACCINE (1 of 2)SHINGRIX VACCINE (1 of 2) [facility]: 33-11-5407Lwlvu microalbumin profileMarietta Memorial Hospital Start: 91-59-4728VOPFMH PCP TEAM CHRONIC DISEASE VISITANNUAL PCP TEAM CHRONIC DISEASE VISITUniversity Hospitals St. John Medical Centertart: 49-07-1596Xjgnvti ScreeningAnxiety Screening [facility]: 21-56-0413Sfddjzhtxf ScreeningDepression Screening [facility]: 08-29-3551Qlmyymvzg B surface antibody levelLDL CHOLESTEROLUniversity Hospitals St. John Medical Centertart: 84-16-2473XIJFXHRMU C SCREENINGHEPATITIS C SCREENINGUniversity Hospitals St. John [facility] Centertart: 51-49-8442Zdoavbpiq C screeningHepatitis C ScreeningUniversity Hospitals St. John Medical Centertart: 52-16-3511Yvmnrlfspa ScreeningDepression ScreeningFormerly [facility] Hospitaltart: comp foot exam completed DIABETIC FOOT EXAMUniversity Hospitals St. John Medical Centertart: 07-29-4716Lhpngdfp foot examination Diabetic Foot ExamUniversity Hospitals St. John Medical Centertart: 38-71-8396Qsxysbra screeningDilated Retinal ExamUniversity Hospitals St. John Medical Centertart: 60-32-7064Mnpmjwhni B screeningURINE ALBUMIN:CREATININE RATIOUniversity Hospitals St. John Medical Centertart: 33-86-8969Xwhqyipqk C antibody, confirmatory testDILATED RETINAL EXAMUniversity Hospitals St. John Medical Centertart: 1951 Pneumococcal Vaccine: 65+ (1 - PCV)Pneumococcal Vaccine: 65+ (1 - PCV)[facility]: 64-62-8369Tqyjjisidhtx Vaccine: 65+ (1 of 2 - PCV)Pneumococcal Vaccine: 65+ (1 of 2 - PCV)[facility]: 01-27-6728MQNCNKOJCWYT: 65+ (1 - PCV)PNEUMOCOCCAL: 65+ (1 - PCV)[facility]: 97-50-5656Mqcmdfyulj A1c lieoqtcuglnAvI1CTkdvipvtx ClinicStart: 92-93-1030Yzvgpbruew A1c/Hemoglobin.total in NjerrSOR7ZDqmgukmeu ClinicStart: 89-23-5543NUELJKXWK AORTIC ANEURYSM SCREENINGABDOMINAL AORTIC ANEURYSM SCREENINGC[facility] Immunizations Immunization DateImmunizationNotesCare DsqinsveRujxfucm09-33-4586lurzmrfjevw syncytial virus (RSV) vaccine, bivalent (ABRYSVO)Chair Lois Work Phone: [facility] HospitalQmnmae53-21-4861NLODU-36 vaccine (UNSPECIFIED)Porsche Adame [facility] Work Phone: [facility] HospitalEdtofb61-46-9939MEHCI-17 vaccine, age 12+ yr (PFIZER-[facility]CH - [facility])Porsche Adame [facility] Work Phone: [facility] HospitalRiogsk83-09-9453bvfkehrfz, high-dose, quadrivalent vaccine (FLUZONE HIGH DOSE QUADRIVALENT)Porsche Adame [facility] Work Phone: [facility] HospitalXbndvo22-14-3988uuyvzsiim virus vaccine, unspecified formulationAinsley Woodson [facility] Work Phone: [facility] HospitalZvryrf01-53-0612CLNWZ-68 vaccine, age 12+ yr (PFIZER-[facility] - [facility])Porsche Adame [facility] Work Phone: [facility] HospitalYmobsr87-16-3236YQTRL-72 vaccine, age 12+ yr ([facility] Work Phone: [facility] HospitalRresry84-38-2212Vtihnmsn trivalent influenza vaccine, adjuvanted, preservative freeBridgeway Hospitalceline [facility] Work Phone: [facility] HospitalCulpdo90-57-1625rzcfefbfj virus vaccine, unspecified formulationPorsche [facility] Work Phone: [facility] Payers DatePayer CategoryPayerPolicy ID2012MedicareMEDICARE MEDICARE A AND B [id number] 2012-Present [phone] [address] [address] [place] [address] [id number] 2012Medicare [id number] Health InsuranceG[facility] Member Subscriber Plan / Payer (Effective 2012- Present) Name: Zach Manuel Relation to Subscriber: Self Name: Zach Manuel Payer ID: Not on file Group ID: Not on file Type: Semaj Address: [address] [id number] UnknownFORE THOUGHT LIFE INSURANCE FORETHOUGHT SUPPLEMENT [id number] 2012- [phone] [address] [id number]8-2295BeqywykYOSX THOUGHT LIFE INSURANCE FORETHOUGHT SUPPLEMENT [id number] 2012- [phone] [place] [address] [id number] [id number] [id number] 1947Unknown [id number] 2.1.155699.3.57[id number] .1.999093.3.57[id number] .1.369493.3.57[id number] .1.337386.3.57[id number] .1.342727.3.57[id number] 2.1.996376.3.57[id number] 2.16840.1.853169.3.57[id number] 2.16840.1.423424.3.57[id number] 2.16840.1.445932.3.57[id number] 2.840.1.042800.3.57[id number] 2.0.1.705530.3.57[id number] 2.0.1.162750.3.579.2.150814-99-7744Eznwptn929518082 2.0.1.362911.3.579.2.042025-95-7864Vmwfnec103244649 2.0.1.028538.3.579.2.695748-04-0535Sqgicsu004613087 2.840.1.115760.3.579.2.979688-13-0808Qjnzyyk397579684 2.0.1.369139.3.579.2.836986-94-3308Bpnfscp574131761 2.0.1.884155.3.579.2.465354-59-5265Sidwtuj646122742 2.840.1.911211.3.579.2.435017-93-6604Devyldy76275726 2.0.1.199045.3.579.2.727Managed Care Other (unspecified) [id number] Social History DateTypeDetailFacilityStart: 83-41-4656Lcwymso smoking status NHISEx-smoker [facility] Work Phone: Start: 09-24-1958 End: 70-94-8549Jqjqfra of tobacco useCurrent smokerMarietta Memorial Hospital Work Phone: Start: 09-24-1958 End: 04-86-2676Tfohrwe of tobacco useCigarette SmokerMarietta Memorial Hospital Work Phone: Start: 11-28-2021 End: 00-05-1335Wvjgjyw intakeCurrent non-drinker of alcohol (finding)[facility]: 58-47-7869Xsk Assigned At BirthNot on fileUniversity Hospitals St. John Medical Centertart: 01-14-2022 End: 85-86-7026Iufhtlmo to SARS-CoV-2 (event)Not sureUniversity Hospitals St. John Medical Centertart: 10-20-2015 End: 92-23-0068Ohntllwxro smoked current (pack per day) - Xnjaqtrr8Wnmjllpvj ClinicStart: 10-20-2015 End: 68-80-3684Clqnghm use and exposureSmokeless tobacco non-userUniversity Hospitals St. John Medical Centertart: 03-21-2022 End: 50-31-2261Waocepf use panelMarietta Memorial HospitalNational Score (1-100), lower number is lower miim05PnsnsyffzUniversity Hospitals St. John Medical Centertart: 24-32-9500Rcpqscf smoking status NHISNever smoked tobaccoProSt. Francis Hospital SystemStart: 10-09-2024 End: 50-07-0095Zqqplsooh beverage intakeEx-drinker (finding)[facility] Hospitaltart: 52-43-9015YktIsrr (finding)[facility] Equipment Procedure CodeEquipment CodeEquipment Original TextEquipment IdentifierDatesLens Iol [id number] [facility]pl [id number] - [id number] - [id number]: 69-25-0780Ugpw Iol [id number].215 [facility] Rpl [id number] - [id number] - [id number]: 11-20-2024 Functional Status KnhlEtmbqtedboPilfbeWkyypxlr94-17-4541Evh you deaf, or do you have serious difficulty hearingNo 04/09/2015 11:20 AM [facility] Selin Stapleton [facility] 37-44-6794Aad you blind, or do you have serious difficulty seeing, even when wearing glassesNo 04/09/2015 11:20 AM Selin Sierra [facility] 20-10-1119Vf you have serious difficulty walking or climbing stairsNo 04/09/2015 11:20 AM Selin Sierra [facility]07-17-2015Do you have difficulty dressing or bathingNo 04/09/2015 11:20 AM [facility] Selin Stapleton [facility] CenterLblnwd45-76-4794Zofvaru of a physical, mental, or emotional condition, do you have difficulty doing errands alone such as visiting a physician's office or shoppingNo 04/09/2015 11:20 AM [facility] Selin Stapleton [facility] Mental Status DqvsJvxrjqiwfgVhotluEslaeviw61-97-6763Upccesi of a physical, mental, or emotional condition, do you have serious difficulty concentrating, remembering, or making decisionsNo 04/09/2015 11:20 AM [facility] Selin Stapleton [facility] Clinical Notes 01-24-2022 to 02-19-2025 Note Date & CsueGusiNdjnkhjj78-85-6071 Telephone encounter Note* Telephone Encounter - Bozena Roland RN - 02/19/2025 12:19 PM EDT Pt informed of BRM message, once verified, using 2 patient identifiers. Patient denies any questions, needs or concerns at this time. Appointment verified. Bozena Roland RN [facility]05-29-2025 Miscellaneous Notes* Telephone Encounter - Bozena Roland RN - 02/19/2025 12:19 PM EDT Pt informed of BRM message, once verified, using 2 patient identifiers. Patient denies any questions, needs or concerns at this time. Appointment verified. Bozena Roland RN documented in this encounterMarietta Memorial Hospital05-26-2025 NoteHNO ID: [id number] Author: URIEL GUNTER MD Service: ? 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 08/18/2019 - Bone survey at [facility] Conclusion: Scattered lytic lesions, stable in num (more content not included)...[facility]05-26-2025 History of Present illness Narrative* Uriel [...] mellitus (HCC) Hyperlipidemia Monoclonal gammopathy 11/2002 IgG [place] Multiple myeloma (HCC) 2002 Ulcerative colitis (HCC) [...] for metastases. 08/18/2019 - Bone survey at [facility] Conclusion: Scattered lytic lesions, stable in number and size from prior exams. 05/06/2018 - Bone Survey at [facility] Scattered lytic lesions, stable in both [...] worsens. Uriel Gunter MD documented in this encounterMarietta Memorial Hospital02-26-2025 Nurse Note* Perioperative Nursing Note - Nilam Ortiz RN - 11/19/2024 10:32 AM EST Preoperative Education Checklist- General Surgery date: 11/20/24 Surgery time: 945a Arrival time: 745a 1. Bring a photo ID and your insurance card with you the day of surgery. You will check in at the main lobby of the [facility]- registration desk is straight ahead as soon as you walk in. Tell them you are here for surgery. 2. If you have a Living Will/Durable Power of Line Director for Health Care that is not on [...] after you have bathed. 5. NO nail afghan/acrylic on at least one finger. If you are having a hand, wrist or foot surgery then all nail afghan and artificial/acrylic nails must be removed from [...] please call the Preadmission Testing office at [phone], Mon.-Fri. 7 a.m.-3 p.m. Leave a voicemail [...] Stop taking 0 days prior to procedure [facility]02-26-2025 Miscellaneous Notes* Perioperative Nursing Note - Nilam Ortiz RN - 11/19/2024 10:32 AM EST Preoperative Education Checklist- General Surgery date: 11/20/24 Surgery time: 945a Arrival time: 745a 1. Bring a photo ID and your insurance card with you the day of surgery. You will check in at the main lobby of the [facility]- registration desk is straight ahead as soon as you walk in. Tell them you are here for surgery. 2. If you have a Living Will/Durable Power of Line Director for Health Care that is not on [...] after you have bathed. 5. NO nail afghan/acrylic on at least one finger. If you are having a hand, wrist or foot surgery then all nail afghan and artificial/acrylic nails must be removed from [...] please call the Preadmission Testing office at [phone], Mon.-Fri. 7 a.m.-3 p.m. Leave a voicemail [...] days prior to procedure documented in this encounterKindred Hospital [facility]01-17-2025 Telephone encounter Note* Telephone Encounter - Ainsley Woodson RP - 10/10/2024 9:25 AM EST Zach called requesting a refill on his revlimid. He is on his off week starting 10/11/24 and would like the script shipped to his house. Thank you- Dustin Woodson PharmD, JUANOP [facility] Work Phone: [phone] Miscellaneous Notes* Telephone Encounter - Ainsley Woodson RPh - 10/10/2024 9:25 AM EST Zach called requesting a refill on his revlimid. He is on his off week starting 10/11/24 and would like the script shipped to his house. Thank you- Dustin Woodson PharmD, BCOP documented in this encounterMarietta Memorial Hospital01-16-2025 Instructions* Patient Instructions* Nilam Ortiz RN - 10/09/2024 9:45 AM EST Preoperative Education Checklist- General Surgery date: 10/30/24 Surgery time: 945a Arrival time: 745a 1. Bring a photo ID and your insurance card with you the day of surgery. You will check in at the main lobby of the [facility]- registration desk is straight ahead as soon as you walk in. Tell them you are here for surgery. 2. If you have a Living Will/Durable Power of Line Director for Health Care that is not on [...] after you have bathed. 5. NO nail afghan/acrylic on at least one finger. If you are having a hand, wrist or foot surgery then all nail afghan and artificial/acrylic nails must be removed from [...] please call the Preadmission Testing office at [phone], Mon.-Fri. 7 a.m.-3 p.m. Leave a voicemail [...] days prior to procedure documented in this encounterKindred Hospital [facility]09-[facility]-2024 Telephone encounter Note* Telephone Encounter - Juan Ferguson RN - 05/29/2024 12:22 PM EDT Pt and spouse notified and verbalizes understanding. Juan Ferguson RN [facility] Work Phone: 1(502) 967-498109-05-2024 Miscellaneous Notes* Telephone Encounter - Juan Ferguson RN - 05/29/2024 12:22 PM EDT Pt and spouse notified and verbalizes understanding. Juan Ferguson RN * Telephone Encounter - Juan Ferguson RN - 05/29/2024 12:21 PM EDT ----- Message from Latrice Hilario PA-C sent at 05/29/2024 11:58 AM EDT ----- Please call with stable myeloma labs documented in this encounterMarietta Memorial Hospital09-05-2024 Telephone encounter Note * Telephone Encounter - Juan Ferguson RN - 05/29/2024 12:21 PM EDT ----- Message from Latrice Hilario PA-C sent at 05/29/2024 11:58 AM EDT ----- Please call with stable myeloma labs [facility]09-03-2024 Telephone encounter Note* Telephone Encounter - Juan Ferguson RN - 05/27/2024 2:23 PM EDT Pt's spouse notified and verbalizes understanding. Juan Ferguson RN [facility] Work Phone: 1(196) 609-979809-03-2024 Miscellaneous Notes* Telephone Encounter - Juan Ferguson RN - 05/27/2024 2:23 PM EDT Pt's spouse notified and verbalizes understanding. Juan Sessler, RN * Telephone Encounter - Latrice Hilario PA-C - 05/27/2024 1:29 PM EDT Please call with a stable kidney function. Latrice Hilario PA-C documented in this encounterMarietta Memorial Hospital09-03-2024 Telephone encounter Note * Telephone Encounter - Latrice Hilario PA-C - 05/27/2024 1:29 PM EDT Please call with a stable kidney function. Latrice Hilario PA-C [facility] Work Phone: 1(894) 428-267009-03-2024 NoteHNO ID: [id number] Author: LATRICE HILARIO PA-C Service: ? Author Type: Physician Small Electric Engine Technician Type: Progress Notes Filed: 05/27/2024 13:29 Note [...] date: Hyperlipidemia 11/2002: Monoclonal gammopathy Comment: IgG [place] 2003: Multiple myeloma (HCC) No date: Ulcerative [...] for metastases. 08/18/2019 - Bone survey at [facility] Conclusion: Scattered lytic lesions, stable in number and size from prior exams. 05/06/2018 - Bon (more content not included)...[facility] 05-27-2024 History of Present illness Narrative* Latrice Hilario PA-C - 05/27/2024 12:45 PM EDT PATIENT NAME: Zach Maunel DATE: 02/26/2024 PRIMARY CARE PHYSICIAN: Dr. Hanna [...] date: Hyperlipidemia 11/2002: Monoclonal gammopathy Comment: IgG [place] 2002: Multiple myeloma (HCC) No date: Ulcerative [...] for metastases. 08/18/2019 - Bone survey at [facility] Conclusion: Scattered lytic lesions, stable in number and size from prior exams. 05/06/2018 - Bone Survey at [facility] Scattered lytic lesions, stable in both [...] which included preparing to see the patient, fybi-bd-pekk patient care, completing clinical documentation, performing a medically appropriate examination, counseling and educating the patient/family/caregiver, ordering medications, tests, or p rocedures, independently interpreting results (not separately reported), communicating results to the patient/family/caregiver, and care coordination (not separately reported). documented in this encounterMarietta Memorial Hospital08-27-2024 Telephone encounter Note * Telephone Encounter - Irma Talavera MA - 05/20/2024 10:35 AM EDT Patient has an appt on 05/27/24. Would you like labs, if so place orders. Irma Talavera MA [facility]08-27-2024 Miscellaneous Notes* Telephone Encounter - Irma Fitzgearld MA - 05/20/2024 10:35 AM EDT Patient has an appt on 05/27/24. Would you like labs, if so place orders. Irma Talavera MA documented in this encounterMarietta Memorial Hospital06-07-2024 Telephone encounter Note * Telephone Encounter - Juan Ferguson RN - 02/29/2024 8:52 AM EDT Pt notified and verbalizes understanding. Juan Ferguson RN [facility] Work Phone: [phone]) 101-743206-07-2024 Telephone encounter Note* Telephone Encounter - Juan Ferguson RN - 02/29/2024 8:52 AM EDT ----- Message from Latrice Hilario PA-C sent at 02/29/2024 8:10 AM EDT ----- Please let patient know his labs are stable and we will continue to monitor [facility]06-07-2024 Miscellaneous Notes* Telephone Encounter - Juan [...] will continue to monitor documented in this encounterMarietta Memorial Hospital06-03-2024 NoteHNO ID: [id number] Author: URIEL GUNTER MD Service: ? Author [...] mellitus (HCC) Hyperlipidemia Monoclonal gammopathy 11/2002 IgG [place] Multiple myeloma (HCC) 2002 Ulcerative colitis (HCC) [...] osseous lesions s (more content not included)... [facility]06-03-2024 History of Present illness Narrative* Uriel [...] mellitus (HCC) Hyperlipidemia Monoclonal gammopathy 11/2002 IgG [place] Multiple myeloma (HCC) 2002 Ulcerative colitis (HCC) [...] for metastases. 08/18/2019 - Bone survey at [facility] Conclusion: Scattered lytic lesions, stable in number and size from prior exams. 05/06/2018 - Bone Survey at [facility] Scattered lytic lesions, stable in both [...] worsens. Uriel Gunter MD documented in this encounterMarietta Memorial Hospital03-05-2024 History of Present illness Narrative* Becca Lane APRN.DIE REPAIRER FORGING - 11/27/2023 1:08 PM EST PATIENT NAME: [...] 2 DROPS INTO AFFECTED EYE 4 TIMESDAILY kahpnzig-rebxorczq-igjbqcdcqcpqsu (CORTISPORIN) otic solution INSTILL 3 4 DROPS [...] mellitus (HCC) Hyperlipidemia Monoclonal gammopathy 11/2002 IgG [place] Multiple myeloma (HCC) 2002 Ulcerative colitis (HCC) [...] for metastases. 08/18/2019 - Bone survey at [facility] Conclusion: Scattered lytic lesions, stable in number and size from prior exams. 05/06/2018 - Bone Survey at [facility] Scattered lytic lesions, stable in both [...] which included preparing to see the patient, mjfv-gp-mspo patient care, completing clinical documentation, obtaining and/or reviewing separately obtained history, performing a medically appropriate examination, counseling and educating the pat ient/family/caregiver, ordering medications, tests, or procedures, independently interpreting results (not separately reported), and communicating results to the patient/family/caregiver. documented in this encounterMarietta Memorial Hospital03-01-2024 Miscellaneous Notes* Telephone Encounter - Monica Baptiste - 11/23/2023 11:56 AM EST Patient has an appt on 11/26. Would you like labs? documented in this encounterMarietta Memorial Hospital12-05-2023 History of Present illness Narrative* Uriel [...] 2 DROPS INTO AFFECTED EYE 4 TIMESDAILY wlorvwpa-euoxijyji-inzmjhicvyjobp (CORTISPORIN) otic solution INSTILL 3 4 DROPS [...] mellitus (HCC) Hyperlipidemia Monoclonal gammopathy 11/2002 IgG [place] Multiple myeloma (HCC) 2002 Ulcerative colitis (HCC) [...] for metastases. 08/18/2019 - Bone survey at [facility] Conclusion: Scattered lytic lesions, stable in number and size from prior exams. 05/06/2018 - Bone Survey at [facility] Scattered lytic lesions, stable in both [...] worsens. Uriel Gunter MD documented in this encounterMarietta Memorial Hospital09-07-2023 Miscellaneous Notes* Telephone Encounter - Bozena [...] will continue as planned. documented in this encounterMarietta Memorial Hospital09-05-2023 History of Present illness Narrative* Uriel [...] 2 DROPS INTO AFFECTED EYE 4 TIMESDAILY fikxcpyq-bkxqxmuqj-jxflfzovphivtz (CORTISPORIN) otic solution INSTILL 3 4 DROPS [...] mellitus (HCC) Hyperlipidemia Monoclonal gammopathy 11/2002 IgG [place] Multiple myeloma (HCC) 2002 Ulcerative colitis (HCC) [...] for metastases. 08/18/2019 - Bone survey at [facility] Conclusion: Scattered lytic lesions, stable in number and size from prior exams. 05/06/2018 - Bone Survey at [facility] Scattered lytic lesions, stable in both [...] worsens. Uriel Gunter MD documented in this encounterMarietta Memorial Hospital06-06-2023 Miscellaneous Notes* Telephone Encounter - Monica Baptiste - 02/27/2023 3:42 PM EDT Patient has an OTV appointment on 03/06. Please place lab orders. Monica Baptiste documented in this encounterMarietta Memorial Hospital03-14-2023 History of Present illness Narrative* Uriel [...] 2 DROPS INTO AFFECTED EYE 4 TIMESDAILY mlyivddi-hxlmgancx-bpwsircsybuawk (CORTISPORIN) otic solution INSTILL 3 4 DROPS [...] mellitus (HCC) Hyperlipidemia Monoclonal gammopathy 11/2002 IgG [place] Multiple myeloma (HCC) 2002 Ulcerative colitis (HCC) [...] for metastases. 08/18/2019 - Bone survey at [facility] Conclusion: Scattered lytic lesions, stable in number and size from prior exams. 05/06/2018 - Bone Survey at [facility] Scattered lytic lesions, stable in both [...] PCP/urology. Uriel Gunter MD documented in this encounterMarietta Memorial Hospital03-06-2023 Miscellaneous Notes* Addendum Note - Uriel Gunter MD - 11/27/2022 1:06 PM ESTAddended by: URIEL GUNTER on: 11/27/2022 01:06 PM Modules accepted: Orders * Telephone Encounter - Selin Stapleton - 11/27/2022 10:49 AM EST Patient coming in on Sunday12/05/22 for follow up treatment. Please add lab orders. Thanks, Selin Stapleton MA documented in this encounterMarietta Memorial Hospital12-29-2022 Miscellaneous Notes* Telephone Encounter - Ainsley Woodson [facility] - 09/21/2022 4:31 PM EST Please sign in everyone's absence. Thank you Dustin Woodson [facility] documented in this encounterMarietta Memorial Hospital12-20-2022 History of Present illness Narrative* Uriel [...] 2 DROPS INTO AFFECTED EYE 4 TIMESDAILY qyhjsnez-ceqhvhwki-dzvlvitduizmxa (CORTISPORIN) otic solution INSTILL 3 4 DROPS [...] mellitus (HCC) Hyperlipidemia Monoclonal gammopathy 11/2002 IgG [place] Multiple myeloma (HCC) 2002 Ulcerative colitis (HCC) [...] for metastases. 08/18/2019 - Bone survey at [facility] Conclusion: Scattered lytic lesions, stable in number and size from prior exams. 05/06/2018 - Bone Survey at [facility] Scattered lytic lesions, stable in both [...] PCP/urology. Uriel Gunter MD documented in this encounterMarietta Memorial Hospital09-27-2022 History of Present illness Narrative* Ese Ferro RN - 06/20/2022 3:21 PM EDT Recommendations per pharmacist Humaira Woodson [facility] for patient to take calcium with Vit D 1 tab twice daily especially as his calcium levels normally run low. Patient education complete with printed material. Questions answered as appropriate. He was encouraged to call with questions or concerns. Ese Ferro RN documented in this encounterMarietta Memorial Hospital09-27-2022 History of Present illness Narrative* Becca [...] 2 DROPS INTO AFFECTED EYE 4 TIMESDAILY txtfqbif-rsslplwne-ganfhnbtoewest (CORTISPORIN) otic solution INSTILL 3 4 DROPS [...] mellitus (HCC) Hyperlipidemia Monoclonal gammopathy 11/2002 IgG [place] Multiple myeloma (HCC) 2002 Ulcerative colitis (HCC) [...] for metastases. 08/18/2019 - Bone survey at [facility] Conclusion: Scattered lytic lesions, stable in number and size from prior exams. 05/06/2018 - Bone Survey at [facility] Scattered lytic lesions, stable in both [...] if the PSA worsen significantly. Becca Lane APRN.DIE REPAIRER FORGING documented in this encounterMarietta Memorial Hospital09-27-2022 Miscellaneous Notes* Telephone Encounter - Juan Ferguson RN - 06/20/2022 8:56 AM EDT Pt due for Aredia today. Pharmacy suggests checking pt's Calcium level w/ today's labs. Order pended. Juan Ferguson RN documented in this encounterMarietta Memorial Hospital09-23-2022 Miscellaneous Notes* Telephone Encounter - Becca Lane APRN.CNP - 06/16/2022 3:17 PM EDT Please sign for Dr. Gunter since he is out of the office. Thanks, Becca Lane APRN.CNP documented in this encounterMarietta Memorial Hospital09-22-2022 Miscellaneous Notes* Telephone Encounter - Monica Baptiste - 06/15/2022 2:38 PM EDT Patient has an appt on 06/20. Would you like labs? documented in this encounterMarietta Memorial Hospital07-28-2022 Miscellaneous Notes* Telephone Encounter - Uriel Gunter MD - 04/20/2022 11:45 AM EDT Signed documented in this encounterMarietta Memorial Hospital07-06-2022 Miscellaneous Notes* Telephone Encounter - Quita Antoine RPh - 2022 3:29 PM EDT New benjamin obtained through [employer] for $[id number] on ID# [id number] Enrollment 02/27/2022 through 02/26/2023 documented in this encounterMarietta Memorial Hospital07-01-2022 Miscellaneous Notes* Telephone Encounter - Funmilayo [...] as planned. TAYLOR Avery documented in this encounterMarietta Memorial Hospital06-28-2022 History of Present illness Narrative* Uriel [...] 2 DROPS INTO AFFECTED EYE 4 TIMESDAILY tsjxvthw-dgfkbcade-nlqxphfyxuznea (CORTISPORIN) otic solution INSTILL 3 4 DROPS [...] mellitus (HCC) Hyperlipidemia Monoclonal gammopathy 11/2002 IgG [place] Multiple myeloma (HCC) 2002 Ulcerative colitis (HCC) [...] for metastases. 08/18/2019 - Bone survey at [facility] Conclusion: Scattered lytic lesions, stable in number and size from prior exams. 05/06/2018 - Bone Survey at [facility] Scattered lytic lesions, stable in both [...] significantly. Uriel Gunter MD documented in this encounterMarietta Memorial Hospital06-03-2022 Miscellaneous Notes* Telephone Encounter - Uriel Gunter MD - 02/24/2022 3:24 PM EDT Signed. documented in this encounterMarietta Memorial Hospital05-03-2022 History of Present illness Narrative* Uriel [...] 2 DROPS INTO AFFECTED EYE 4 TIMESDAILY ixjgqtcy-brisoeumr-dlubewnvzkueol (CORTISPORIN) otic solution INSTILL 3 4 DROPS [...] mellitus (HCC) Hyperlipidemia Monoclonal gammopathy 11/2002 IgG [place] Multiple myeloma (HCC) 2002 Ulcerative colitis (HCC) [...] RADIOLOGY/OTHER STUDIES: 08/18/2019 - Bone survey at [facility] Conclusion: Scattered lytic lesions, stable in number and size from prior exams. 05/06/2018 - Bone Survey at [facility] Scattered lytic lesions, stable in both [...] urology. 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 Type 2 diabetes mellitus without complication, with long-term current use of insulin (HCC) H/O ulcerative colitis Personal history of other diseases of digestive system documented in this encounter [facility] HospitalEvaludel[facility]* Diagnosis Multiple myeloma not having achieved remission (HCC)- Primary Multiple myeloma, without mention of having achieved remission 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 Type 2 diabetes mellitus without complication, with long-term current use of insulin (HCC) H/O ulcerative colitis Personal history of other diseases of digestive system Elevated prostate specific antigen (PSA) documented in this encounter [facility]* Diagnosis Multiple myeloma not having achieved [...] specific antigen (PSA) [facility] Multiple myeloma not having [...] kidney disease (HCC) documented in this encounter [facility]* Diagnosis Multiple myeloma not having achieved remission (HCC)- Primary Multiple myeloma, without mention of having achieved remission 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 [facility]* Diagnosis Multiple myeloma not having [...] specific antigen (PSA) documented in this encounter [facility]Eval[facility]* Diagnosis Multiple myeloma not having achieved remission (HCC)- Primary Multiple myeloma, without mention of having achieved remission documented in this encounter [facility]* Diagnosis Multiple myeloma not having achieved remission (HCC)- Primary Multiple myeloma, without mention of having achieved remission Type 2 diabetes mellitus without complication, with long-term current use of insulin (HCC) [facility] Diagnosis Preop examination- Primary Unspecified pre-operative examination Preop examination Unspecified pre-operative examination [facility] Diagnosis Multiple myeloma not having achieved remission (HCC)- Primary Multiple myeloma, without mention of having achieved remission 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 [facility]* Diagnosis Multiple myeloma not having achieved remission (HCC)- Primary Multiple myeloma, without mention of having achieved remission 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 H/O ulcerative colitis Personal history of other diseases of digestive system Stage 3b chronic kidney disease (HCC) documented in this encounter [facility] HospitalInstructionsNot on filedocumented in this encounterKindred [facility] LimaReresearch [facility] N[facility]ative* [place] Prior Authorization (Routine) - AuthorizedSpecialtyDiagnoses / ProceduresReferred By ContactReferred To Contact Diagnoses Multiple myeloma not having achieved remission (HCC) Paget disease of bone Uriel Gunter MD [address] [place] [address] [place] [address] Phone: tel: fax: Hematology/Oncology [address] [place] [address] [place] [address] Phone: tel: fax: Referral IDStatusReasonStart DateExpiration DateVisits RequestedVisits [id number] [facility] Summary Purpose Family History No Family History Records FoundNo Family History Records FoundNo Family History Records FoundNo Family History Records FoundNo Family History Records FoundNo Family History Records Found Advance Directives No Advanced Directives Records FoundDocuments on File TypeDate RecordedPatient RepresentativeExplanationDurable Power of Line Director 11/11/2024 8:31 AM Hospital Course Note MR#: [id number] I [facility] Pt. Name: Zach Manuel Admitted: 07/13/2018 Discharged: [...] complication. The patient will be discharged to intermediate facility. CONSULTATION DURING ADMISSION: Orthopedics. PROCEDURE DURING [...] Reproductive Risk Drug: Use appropriate PPE. New Bag/Syringe/Cyaunv6606/20/2022 2:14 PM EDT30 mg250 mL/hrMedication OrderMAR ActionAction DateDoseRateSite pamidronate 30 mg in NaCl 0.9% 250 mL (AREDIA) 30 mg, INTRAVENOUS, at 285 mL/hr, Administer over 1 Hours, ONCE, 1 dose, On Sun12/05/22 at 1400, APPROXIMATE TOTAL VOLUME_285mL - 24 HOUR EXP:12/06/2022@1355 Hazardous Potential Reproductive Risk Drug: Use appropriate PPE. New Bag/Syringe/Uoxeah9012/05/2022 2:13 PM EDT30 mg285 mL/hrMedication OrderMAR ActionAction DateDoseRateSite pamidronate 30 mg in NaCl 0.9% 250 mL (AREDIA) 30 mg, INTRAVENOUS, at 250 mL/hr, Administer over 1 Hours, ONCE, 1 dose, On Sun08/28/23 at 1400, APPROXIMATE TOTAL VOLUME_285mL - 24 HOUR EXP:08/29/23 1345 Hazardous Potential Reproductive Risk Drug: Use appropriate PPE. New Bag/Syringe/Plwbxt2708/28/2023 2:04 PM EST30 mg250 mL/hr Reason for Referral SpecialtyDiagnoses / ProceduresReferred By ContactReferred To Contact Aiden Hatfield MD [address] [place] [phone] Referral IDStatusReasonStart DateExpiration DateVisits RequestedVisits [id number] Additional Source Comments (unrecognized sect ion and content) No Status Records FoundNo Status Records FoundNo Status Records FoundNo Status Records FoundNo Status Records FoundNo Status Records Found INFORMATION SOURCE (unrecogn ized section and content) DATE CREATED AUTHOR 06/06/2019 [facility] DATE CREATED AUTHOR AUTHOR'S ORGANIZ ATION 11/17/2021 [facility] DATE CREATED AUTHOR AUTHOR'S ORGANIZ ATION 09/02/2022 [facility] DATE CREATED AUTHOR AUTHOR'S ORGANIZ ATION 11/21/2024 [facility] DATE CREATED AUTHOR AUTHOR'S ORGANIZ ATION 02/19/2025 [facility] DATE CREATED AUTHOR AUTHOR'S ORGANIZ ATION 07/28/2025 [facility] Source Comments (unrecognize d section and content) In the event this informatio n is protected by the Federal Confidentiality of Alcohol and Drug Abuse Patient Records regulations: The Federal rules restrict any use of the information to criminally investigate or prosecute any alcohol or drug abuse patient.[facility] HospitalIn the event this information is protected by the Federal Confidentiality of Alcohol and Drug Abuse Patient Records regulations: The Federal rules restrict any use of the information to criminally investigate or prosecute any alcohol or drug abuse patient.[facility] HospitalIn the event this information is protected by the Federal Confidentiality of Alcohol and Drug Abuse Patient Records regulations: The Federal rules restrict any use of the information to criminally investigate or prosecute any alcohol or drug abuse patient.[facility] HospitalIn the event this information is protected by the Federal Confidentiality of Alcohol and Drug Abuse Patient Records regulations: The Federal rules restrict any use of the information to criminally investigate or prosecute any alcohol or drug abuse patient.[facility] HospitalIn the event this information is protected by the Federal Confidentiality of Alcohol and Drug Abuse Patient Records regulations: The Federal rules restrict any use of the information to criminally investigate or prosecute any alcohol or drug abuse patient.[facility] HospitalIn the event this information is protected by the Federal Confidentiality of Alcohol and Drug Abuse Patient Records regulations: The Federal rules restrict any use of the information to criminally investigate or prosecute any alcohol or drug abuse patient.[facility] HospitalIn the event this information is protected by the Federal Confidentiality of Alcohol and Drug Abuse Patient Records regulations: The Federal rules restrict any use of the information to criminally investigate or prosecute any alcohol or drug abuse patient.[facility] HospitalIn the event this information is protected by the Federal Confidentiality of Alcohol and Drug Abuse Patient Records regulations: The Federal rules restrict any use of the information to criminally investigate or prosecute any alcohol or drug abuse patient.[facility] HospitalIn the event this information is protected by the Federal Confidentiality of Alcohol and Drug Abuse Patient Records regulations: The Federal rules restrict any use of the information to criminally investigate or prosecute any alcohol or drug abuse patient.[facility] HospitalIn the event this information is protected by the Federal Confidentiality of Alcohol and Drug Abuse Patient Records regulations: The Federal rules restrict any use of the information to criminally investigate or prosecute any alcohol or drug abuse patient.[facility] HospitalIn the event this information is protected by the Federal Confidentiality of Alcohol and Drug Abuse Patient Records regulations: The Federal rules restrict any use of the information to criminally investigate or prosecute any alcohol or drug abuse patient.[facility] HospitalIn the event this information is protected by the Federal Confidentiality of Alcohol and Drug Abuse Patient Records regulations: The Federal rules restrict any use of the information to criminally investigate or prosecute any alcohol or drug abuse patient.[facility] HospitalIn the event this information is protected by the Federal Confidentiality of Alcohol and Drug Abuse Patient Records regulations: The Federal rules restrict any use of the information to criminally investigate or prosecute any alcohol or drug abuse patient.[facility] HospitalIn the event this information is [...] or prosecute any alcohol or drug abuse patient.[facility] HospitalIn the event this information is protected by the Federal Confidentiality of Alcohol and Drug Abuse Patient Records regulations: The Federal rules restrict any use of the information to criminally investigate or prosecute any alcohol or drug abuse patient.[facility] HospitalIn the event this information is protected by the Federal Confidentiality of Alcohol and Drug Abuse Patient Records regulations: The Federal rules restrict any use of the information to criminally investigate or prosecute any alcohol or drug abuse patient.[facility] HospitalIn the event this information is protected by the Federal Confidentiality of Alcohol and Drug Abuse Patient Records regulations: The Federal rules restrict any use of the information to criminally investigate or prosecute any alcohol or drug abuse patient.[facility] HospitalIn the event this information is protected by the Federal Confidentiality of Alcohol and Drug Abuse Patient Records regulations: The Federal rules restrict any use of the information to criminally investigate or prosecute any alcohol or drug abuse patient.[facility] HospitalIn the event this information is protected by the Federal Confidentiality of Alcohol and Drug Abuse Patient Records regulations: The Federal rules restrict any use of the information to criminally investigate or prosecute any alcohol or drug abuse patient.[facility] HospitalIn the event this information is protected by the Federal Confidentiality of Alcohol and Drug Abuse Patient Records regulations: The Federal rules restrict any use of the information to criminally investigate or prosecute any alcohol or drug abuse patient.[facility] HospitalIn the event this information is protected by the Federal Confidentiality of Alcohol and Drug Abuse Patient Records regulations: The Federal rules restrict any use of the information to criminally investigate or prosecute any alcohol or drug abuse patient.[facility] HospitalIn the event this information is protected by the Federal Confidentiality of Alcohol and Drug Abuse Patient Records regulations: The Federal rules restrict any use of the information to criminally investigate or prosecute any alcohol or drug abuse patient.[facility] HospitalIn the event this information is protected by the Federal Confidentiality of Alcohol and Drug Abuse Patient Records regulations: The Federal rules restrict any use of the information to criminally investigate or prosecute any alcohol or drug abuse patient.[facility] HospitalIn the event this information is protected by the Federal Confidentiality of Alcohol and Drug Abuse Patient Records regulations: The Federal rules restrict any use of the information to criminally investigate or prosecute any alcohol or drug abuse patient.[facility] HospitalIn the event this information is protected by the Federal Confidentiality of Alcohol and Drug Abuse Patient Records regulations: The Federal rules restrict any use of the information to criminally investigate or prosecute any alcohol or drug abuse patient.[facility] HospitalIn the event this information is protected by the Federal Confidentiality of Alcohol and Drug Abuse Patient Records regulations: The Federal rules restrict any use of the information to criminally investigate or prosecute any alcohol or drug abuse patient.[facility] HospitalIn the event this information is protected by the Federal Confidentiality of Alcohol and Drug Abuse Patient Records regulations: The Federal rules restrict any use of the information to criminally investigate or prosecute any alcohol or drug abuse patient.[facility] HospitalIn the event this information is protected by the Federal Confidentiality of Alcohol and Drug Abuse Patient Records regulations: The Federal rules restrict any use of the information to criminally investigate or prosecute any alcohol or drug abuse patient.[facility] HospitalIn the event this information is protected by the Federal Confidentiality of Alcohol and Drug Abuse Patient Records regulations: The Federal rules restrict any use of the information to criminally investigate or prosecute any alcohol or drug abuse patient.[facility] HospitalIn the event this information is protected by the Federal Confidentiality of Alcohol and Drug Abuse Patient Records regulations: The Federal rules restrict any use of the information to criminally investigate or prosecute any alcohol or drug abuse patient.[facility] HospitalIn the event this information is protected by the Federal Confidentiality of Alcohol and Drug Abuse Patient Records regulations: The Federal rules restrict any use of the information to criminally investigate or prosecute any alcohol or drug abuse patient.[facility] HospitalIn the event this information is protected by the Federal Confidentiality of Alcohol and Drug Abuse Patient Records regulations: The Federal rules restrict any use of the information to criminally investigate or prosecute any alcohol or drug abuse patient.[facility] HospitalIn the event this information is protected by the Federal Confidentiality of Alcohol and Drug Abuse Patient Records regulations: The Federal rules restrict any use of the information to criminally investigate or prosecute any alcohol or drug abuse patient.[facility] HospitalIn the event this information is protected by the Federal Confidentiality of Alcohol and Drug Abuse Patient Records regulations: The Federal rules restrict any use of the information to criminally investigate or prosecute any alcohol or drug abuse patient.[facility] HospitalIn the event this information is protected by the Federal Confidentiality of Alcohol and Drug Abuse Patient Records regulations: The Federal rules restrict any use of the information to criminally investigate or prosecute any alcohol or drug abuse patient.[facility] HospitalIn the event this information is protected by the Federal Confidentiality of Alcohol and Drug Abuse Patient Records regulations: The Federal rules restrict any use of the information to criminally investigate or prosecute any alcohol or drug abuse patient.[facility] HospitalIn the event this information is protected by the Federal Confidentiality of Alcohol and Drug Abuse Patient Records regulations: The Federal rules restrict any use of the information to criminally investigate or prosecute any alcohol or drug abuse patient.[facility] HospitalIn the event this information is protected by the Federal Confidentiality of Alcohol and Drug Abuse Patient Records regulations: The Federal rules restrict any use of the information to criminally investigate or prosecute any alcohol or drug abuse patient.[facility] HospitalIn the event this information is protected by the Federal Confidentiality of Alcohol and Drug Abuse Patient Records regulations: The Federal rules restrict any use of the information to criminally investigate or prosecute any alcohol or drug abuse patient.[facility] HospitalIn the event this information is protected by the Federal Confidentiality of Alcohol and Drug Abuse Patient Records regulations: The Federal rules restrict any use of the information to criminally investigate or prosecute any alcohol or drug abuse patient.[facility] HospitalIn the event this information is protected by the Federal Confidentiality of Alcohol and Drug Abuse Patient Records regulations: The Federal rules restrict any use of the information to criminally investigate or prosecute any alcohol or drug abuse patient.[facility] HospitalIn the event this information is protected by the Federal Confidentiality of Alcohol and Drug Abuse Patient Records regulations: The Federal rules restrict any use of the information to criminally investigate or prosecute any alcohol or drug abuse patient.[facility] HospitalIn the event this information is protected by the Federal Confidentiality of Alcohol and Drug Abuse Patient Records regulations: The Federal rules restrict any use of the information to criminally investigate or prosecute any alcohol or drug abuse patient.[facility] HospitalIn the event this information is protected by the Federal Confidentiality of Alcohol and Drug Abuse Patient Records regulations: The Federal rules restrict any use of the information to criminally investigate or prosecute any alcohol or drug abuse patient.[facility] HospitalIn the event this information is protected by the Federal Confidentiality of Alcohol and Drug Abuse Patient Records regulations: The Federal rules restrict any use of the information to criminally investigate or prosecute any alcohol or drug abuse patient.[facility] HospitalIn the event this information is protected by the Federal Confidentiality of Alcohol and Drug Abuse Patient Records regulations: The Federal rules restrict any use of the information to criminally investigate or prosecute any alcohol or drug abuse patient.[facility] HospitalIn the event this information is protected by the Federal Confidentiality of Alcohol and Drug Abuse Patient Records regulations: The Federal rules restrict any use of the information to criminally investigate or prosecute any alcohol or drug abuse patient.[facility] HospitalIn the event this information is protected by the Federal Confidentiality of Alcohol and Drug Abuse Patient Records regulations: The Federal rules restrict any use of the information to criminally investigate or prosecute any alcohol or drug abuse patient.[facility] HospitalIn the event this information is protected by the Federal Confidentiality of Alcohol and Drug Abuse Patient Records regulations: The Federal rules restrict any use of the information to criminally investigate or prosecute any alcohol or drug abuse patient.[facility] HospitalIn the event this information is protected by the Federal Confidentiality of Alcohol and Drug Abuse Patient Records regulations: The Federal rules restrict any use of the information to criminally investigate or prosecute any alcohol or drug abuse patient.[facility] HospitalIn the event this information is protected by the Federal Confidentiality of Alcohol and Drug Abuse Patient Records regulations: The Federal rules restrict any use of the information to criminally investigate or prosecute any alcohol or drug abuse patient.[facility] HospitalIn the event this information is protected by the Federal Confidentiality of Alcohol and Drug Abuse Patient Records regulations: The Federal rules restrict any use of the information to criminally investigate or prosecute any alcohol or drug abuse patient.[facility] HospitalIn the event this information is protected by the Federal Confidentiality of Alcohol and Drug Abuse Patient Records regulations: The Federal rules restrict any use of the information to criminally investigate or prosecute any alcohol or drug abuse patient.[facility] HospitalIn the event this information is protected by the Federal Confidentiality of Alcohol and Drug Abuse Patient Records regulations: The Federal rules restrict any use of the information to criminally investigate or prosecute any alcohol or drug abuse patient.[facility] HospitalIn the event this information is protected by the Federal Confidentiality of Alcohol and Drug Abuse Patient Records regulations: The Federal rules restrict any use of the information to criminally investigate or prosecute any alcohol or drug abuse patient.[facility] HospitalIn the event this information is protected by the Federal Confidentiality of Alcohol and Drug Abuse Patient Records regulations: The Federal rules restrict any use of the information to criminally investigate or prosecute any alcohol or drug abuse patient.[facility] HospitalIn the event this information is protected by the Federal Confidentiality of Alcohol and Drug Abuse Patient Records regulations: The Federal rules restrict any use of the information to criminally investigate or prosecute any alcohol or drug abuse patient.[facility] HospitalIn the event this information is protected by the Federal Confidentiality of Alcohol and Drug Abuse Patient Records regulations: The Federal rules restrict any use of the information to criminally investigate or prosecute any alcohol or drug abuse patient.[facility] HospitalIn the event this information is protected by the Federal Confidentiality of Alcohol and Drug Abuse Patient Records regulations: The Federal rules restrict any use of the information to criminally investigate or prosecute any alcohol or drug abuse patient.[facility] HospitalIn the event this information is protected by the Federal Confidentiality of Alcohol and Drug Abuse Patient Records regulations: The Federal rules restrict any use of the information to criminally investigate or prosecute any alcohol or drug abuse patient.[facility] HospitalIn the event this information is protected by the Federal Confidentiality of Alcohol and Drug Abuse Patient Records regulations: The Federal rules restrict any use of the information to criminally investigate or prosecute any alcohol or drug abuse patient.[facility] HospitalIn the event this information is protected by the Federal Confidentiality of Alcohol and Drug Abuse Patient Records regulations: The Federal rules restrict any use of the information to criminally investigate or prosecute any alcohol or drug abuse patient.[facility] Reason for Visit (unrecogniz ed section and content) ReasonOnset DateCommentsRefill Furpifr68/11/2022ReasonCommentsMultiple Myeloma ReasonOnset DateCommentsRefill Oruehis91/09/2022ReasonOnset DateCommentsRefill Xrnrcbl50/03/2022ReasonCommentsMultiple Myelomafollow upReasonCommentsResults ReasonOnset DateCommentsRefill Lorjmxp6203/29/2022lenalidomideReasonCommentsCare Coordinator - OtherFormerly [facility] benjamin obtainedReasonOnset DateCommentsRefill Ezwyljz83/28/2022ReasonOnset DateCommentsRefill Ljouimp36/26/2022ReasonComments Lab OrdersReasonOnset DateCommentsRefill Iadbqqy2306/16/2022pecialtyDiagnoses / ProceduresReferred By ContactReferred To Contact Diagnoses Multiple myeloma, remission status unspecified (HCC) Uriel Gunter MD [address] [place] [address] [place] [address] [address] Treat Lois [address] [place] [address] Referral IDStatusReasonStart DateExpiration DateVisits RequestedVisits [id number]/19/20216/[id number] CoordinationCalciumReasonOnset DateCommentsRefill Pyuzopn2308/11/2022eason CommentsMultiple MyelomaFollow upReasonOnset DateCommentsRefill Request 09/21/2022easonOnset DateCommentsRefill Xfsnfps3110/16/2022ReasonOnset Date CommentsRefill Pizmofo0011/16/2022ReasonCommentsMultiple MyelomaTreatment visit ReasonOnset DateCommentsRefill Qtxttnf8412/19/2022ReasonOnset DateCommentsRefill Faaqqva1312/28/2022ReasonOnset DateCommentsRefill Gwbqazj7402/05/2023ReasonOnset DateCommentsRefill Jibdyrm2904/18/2023ReasonOnset DateCommentsRefill Request 07/18/2023ReasonOnset DateCommentsRefill Zysjgzh7408/20/2023ReasonOnset Date CommentsRefill Zrnxmuq8711/15/2023easonOnset DateCommentsRefill Mmrhtsf0412/10/2023 ReasonOnset DateCommentsRefill Jmzjftt3401/08/2024easonOnset DateCommentsRefill Mbezedb4501/28/2024easonOnset DateCommentsRefill Lblgngf6002/06/2024evlimid SpecialtyDiagnoses / ProceduresReferred By ContactReferred To Contact Diagnoses Multiple myeloma not having achieved remission (HCC) Paget disease of bone Uriel Gunter MD [address] [place] [address] [place] [address] Sha[address]en Treat Lois [address] [place] [address] Referral IDStatusReasonStart DateExpiration DateVisits RequestedVisits [id number]/[id number] Coordination LabsReasonOnset DateCommentsRefill Jfdviys0503/06/2024easonOnset DateComments Refill Jzzssii5204/08/2024easonOnset DateCommentsRefill Mglctgz6005/09/2024eason CommentsCare CoordinationLab ResultsReasonOnset DateCommentsRefill Request 06/04/2024easonOnset DateCommentsRefill Muhvefx8006/30/2024easonOnset Date CommentsRefill Pygrzpp1208/11/2024easonOnset DateCommentsRefill Wvazyzm2109/11/2024 ReasonOnset DateCommentsRefill Eglofqz3710/10/2024ReasonOnset DateCommentsRefill Eqrdcaz6011/17/2024ReasonOnset DateCommentsRefill Kwhyrbj9812/11/2024ReasonOnset IfydJkckosoiGdgpwhg71/29/2025ReasonOnset DateCommentsRefill Tzccyrn5002/27/2025 Care Teams (unrecognized sec tion and content) Team MemberRelationshipSpecialtyStart DateEnd Date Hanna Mathias MD [address] [place] [id number] PCP - General01/27/03Team MemberRelationshipSpecialtyStart DateEnd Date Hanna Mathias MD [address] [place] [address] PCP - General5Team MemberRelationshipSpecialtyStart DateEnd Date Hanna Mathias MD [address] [place] [address] PCP - General01/27/03Team MemberRelationshipSpecialtyStart DateEnd Date Hanna Mathias, [address] [place] [address] PCP - General01/27/03Team MemberRelationshipSpecialtyStart DateEnd Date Hanna Mathias MD [address] [place] [address] PCP - General01/27/03Team MemberRelationshipSpecialtyStart DateEnd Date Hanna Mathias MD [address] [place] [address] PCP - General01/27/03Team MemberRelationshipSpecialtyStart DateEnd Date Hanna Mathias MD [address] [place] [address] PCP - General01/27/03Team MemberRelationshipSpecialtyStart DateEnd Date Hanna Mathias MD [address] [place] [address] PCP - General01/27/03Team MemberRelationshipSpecialtyStart DateEnd Date Hanna Mathias MD [address] [place] [address] PCP - General01/27/03Team MemberRelationshipSpecialtyStart DateEnd Date Hanna Mathias MD [address] [facility] [place] [address] PCP - General01/27/03Team MemberRelationshipSpecialtyStart DateEnd Date Hanna Mathias MD [address] [facility] [place] [address] PCP - General5Team MemberRelationshipSpecialtyStart DateEnd Date Hanna Mathias MD [address] [place] [facility] [place] [address] PCP - General01/27/03Team MemberRelationshipSpecialtyStart DateEnd Date Hanna Mathias MD [address] [place] [facility] [place] [address] PCP - General01/27/03Team MemberRelationshipSpecialtyStart DateEnd Date Hanna Mathias MD [address] [facility] [address] PCP - General01/27/03Team MemberRelationshipSpecialtyStart DateEnd Date Hanna Mathias MD [address] [facility] [address] PCP - General01/27/03Team MemberRelationshipSpecialtyStart DateEnd Date Hanna Mathias MD [address] [facility] [address] PCP - General01/27/03Team MemberRelationshipSpecialtyStart DateEnd Date Hanna Mathias MD [address] [facility] [address] PCP - General01/27/03Team MemberRelationshipSpecialtyStart DateEnd Date Hanna Mathias MD [address] [facility] [address] PCP - General01/27/03Team MemberRelationshipSpecialtyStart DateEnd Date Hanna Mathias MD [address] [facility] [address] PCP - General01/27/03Team MemberRelationshipSpecialtyStart DateEnd Date Hanna Mathias MD [address] [facility] [address] PCP - General01/27/03Team MemberRelationshipSpecialtyStart DateEnd Date Hanna Mathias MD [address] [place] [facility] [address] PCP - General01/27/03Team MemberRelationshipSpecialtyStart DateEnd Date Hanna Mathias MD [address] [facility] [place] [address] PCP - General01/27/03Team MemberRelationshipSpecialtyStart DateEnd Date Hanna Mathias MD [address] [facility] [place] [address] PCP - General01/27/03Team MemberRelationshipSpecialtyStart DateEnd Date Hanna Mathias MD [address] [facility] [place] [address] PCP - General01/27/03Team MemberRelationshipSpecialtyStart DateEnd Date Hanna Mathias MD [address] [facility] [place] [address] PCP - General01/27/03Team MemberRelationshipSpecialtyStart DateEnd Date Hanna Mathias MD [address] [facility] [place] [address] PCP - General5Team MemberRelationshipSpecialtyStart DateEnd Date Hanna Mathias MD [address] [facility] [place] [address] PCP - General01/27/03Team MemberRelationshipSpecialtyStart DateEnd Date Hanna Mathias MD [address] [facility] [place] [address] PCP - General01/27/03Team MemberRelationshipSpecialtyStart DateEnd Date Hanna Mathias MD [address] [facility] [place] [address] PCP - General01/27/03Team MemberRelationshipSpecialtyStart DateEnd Date Hanna Mathias MD [address] [facility] [place] [address] PCP - General5Team MemberRelationshipSpecialtyStart DateEnd Date Hanna Mathias MD [address] [facility] [place] [address] PCP - General5Team MemberRelationshipSpecialtyStart DateEnd Date Hanna Mathias MD [address] [facility] [place] [address] PCP - General5Team MemberRelationshipSpecialtyStart DateEnd Date Hanna Mathias MD [address] [facility] [place] [address] PCP - General5Team MemberRelationshipSpecialtyStart DateEnd Date Hanna Mathias MD [address] [facility] [place] [address] PCP - General01/27/03Te MemberRelationshipSpecialtyStart DateEnd Date Hanna Mathias MD [address] [facility] [place] [address] [facility] - [facility]/30/24Te MemberRelationshipSpecialtyStart DateEnd Date Hanna Mathias MD [address] [facility] [place] [address] PCP - General01/27/03Te MemberRelationshipSpecialtyStart [facility] Hanna Mathias MD [address] [facility] [place] [address] PCP - General01/27/03 FOR RECORDS PERTAINING TO [...] BE BASED ON THE PRIMARY CLINICAL RECORDS. [facility] [facility]. provides no warranty or guarantee of the accuracy or completeness of information in this document.
[2025-08-31 10:45] LABS: Hematocrit 36.8 % (42.0-54.0); Hemoglobin 13.1 g/dL (14.0-18.0); Mean Corpuscular HGB Conc 35.6 g/dL (29.9-35.2); Mean Corpuscular Hemoglobin 36.5 pg (25.9-34.0); Mean Corpuscular Volume 102.5 fL (80.0-94.0); Platelet Count 204 10^3/uL (150-450); Red Blood Count 3.59 10^6/uL (4.70-6.10); White Blood Count 8.6 10^3/uL (4.0-11.0)
[2025-08-31 11:24] LABS: Atypical Lymphocytes % Manual 3.0 %; Atypical Lymphocytes Abs Man 0.25; Band Neutrophils Absolute 0.1 10^3/uL (0.0-0.3); Basophils Abs Manual 0.08 10^3/uL (0.00-0.10); Basophils Percent Manual 1.0 % (0.2-2.0); Eosinophils Absolute Manual 0.00 10^3/uL (0.00-0.70); Eosinophils Percent Manual 0.0 % (0.9-7.0); Lymphocytes Absolute Manual 0.51 10^3/uL (1.20-3.80); Lymphocytes Percent Manual 6.0 % (20.5-60.0); Monocytes Absolute Manual 0.77 10^3/uL (0.30-0.80); Monocytes Percent Manual 9.0 % (1.7-12.0); Segmented Neut Absolute Manual 6.88 10^3/uL (1.4-6.5); Segmented Neutrophils % Manual 80.0 (43.0-75.0)
[2025-08-31 12:00] LABS: Alanine Aminotransferase 22 U/L (16-63); Albumin Globulin Ratio 1.0; Albumin Level 3.5 g/dL (3.4-5.0); Alkaline Phosphatase 81 U/L (46-116); Anion Gap 9.8; Aspartate Amino Transferase 13 U/L (15-37); Blood Urea Nitrogen 28.0 mg/dL (7.0-18.0); Calcium 8.9 mg/dL (8.5-10.1); Carbon Dioxide 30.4 mmol/L (21.0-32.0); Chloride 100 mmol/L (98-107); Estimated GFR (African America 54 (>=60 mL/min/1.73m^2); Estimated GFR (Non-African Ame 45 (>=60 mL/min/1.73m^2); Globulin 3.5 g/dL; Glucose 146 mg/dL (74-106); Potassium 4.2 mmol/L (3.5-5.1); Sodium 136 mmol/L (136-145); Total Protein 7.0 g/dL (6.4-8.2)
== END 2025-08-31 10:20 | disposition home or self-care (01) ==
LOC: LAB 10:20
PROVIDERS: PCP Family Medicine; Visit Provider Family Medicine
DX: K46.9 Unspecified abdominal hernia without obstruction or gangrene (principal)
CPT/HCPCS: 36415; 80053; 82330; 85007; 85027

== ENCOUNTER 2025-09-02 09:06 | Day surgery (SDC) | payer MEDICARE, OTHER, SELFPAY ==
[2025-08-24 12:59] VITALS: BP 151/73; PULSE 63; TEMP 36.3; O2SAT 100; BMI 28.1
[2025-09-02] VITALS (16 sets, daily range): BP systolic 103–157; BP diastolic 32–93; PULSE 63–92; TEMP 36.3–36.6; O2SAT 92–99; BMI 27.1
--- NOTE | 2025-09-02 | OP_ITS ---
OPERATION DATE: 09/02/2025 PREOPERATIVE DIAGNOSIS: Recurrent left inguinal hernia. POSTOPERATIVE DIAGNOSIS: Recurrent left inguinal hernia, with extensive scarring and prolapsed mesh plug. PROCEDURE: Left inguinal herniorrhaphy with mesh insertion and removal of old mesh plug. SURGEON: Manny Rosales M.D. ANESTHESIA: General with laryngeal mask airway, as well as a left side TAP block per Dr. Davis. ESTIMATED BLOOD LOSS: Less than 50 mL. INDICATIONS AND CONSENT: Patient is a 80-year-old male with history of multiple previous surgeries including a right inguinal hernia repair x2 and left x1, as well as colectomy and pouch for ulcerative colitis. He now presents with recurrent symptomatic, partially reducible left inguinal hernia. Indications, risks, benefits, alternatives of proceeding with herniorrhaphy with mesh insertion were explained extensively to the patient, including the risks of bleeding, infection, scarring, pain, nerve injury, testicular injury, blood clot, pulmonary embolus, heart attack, anesthetic complications, recurrent hernia, need for further surgery or mesh removal. All of his questions were answered. Informed consent was obtained. PROCEDURE: Patient brought to the operating room, placed in the supine position. He had previously undergone TAP block per Dr. Davis in the holding area on the left side. General anesthesia was induced. He was then prepped and draped in the usual sterile fashion. A left groin incision was made in the area of the skin crease, near the previous scar transversely, and carried down through subcutaneous tissue using sharp dissection. There was noted to be extensive scarring. External oblique was identified and opened along the direction of its fibers, down through the external inguinal ring. There was extensive scarring noted. Once this was opened up, a direct and indirect hernia, as well as extensive scarring and prolapsed plug was noted, adherent to some omentum. With careful dissection, the plug was able to be excised. We were able to free up the hernia and identify the cord structures, which were initially difficult to identify. These were then retracted with a Hemet drain, from the hernia, which was then reduced back through the defect, which was a combination of direct and indirect defects. The defect was then closed with some interrupted 2-0 Prolene sutures. The wound was irrigated. There was good hemostasis. An old patch was very scarred in and incorporated. This was not removed. A new patch was able to be placed in the floor of the inguinal canal, around the cord structures. It was then secured with several interrupted 3-0 Vicryl sutures. The wound was irrigated with antibiotic saline. There was good hemostasis. The very attenuated external oblique was then closed using a running 3-0 Vicryl suture. The remaining Exparel solution was injected into the subcutaneous tissue. The Jesica?s fascia was re-approximated with interrupted 3-0 Monocryl suture. The skin was then closed with a running 4-0 subcuticular Monocryl suture and skin glue. Sterile pressure dressing was applied. Sponge and needle counts were correct x3 per nursing personnel. Patient tolerated procedure well, was sent to recovery room in good condition. CC: Jose Alberto Young M.D. TAMARA
--- OUTSIDE RECORDS SUMMARY | 2025-09-02 09:12 | XMS_ITS | CCD ---
Author Organization [facility] Care Team Providers Care Clam Picker Name Role Phone HANNA MATHIAS Primary Care Unavailable SELF, REFERRED Referring Unavailable TRISH CEVALLOS Admitting Unavailable FRANCIS SAVAGE Attending Unavailable ID Procedure Practitioner Unavailab DANIELA Pennington Surgeon Unavailable ID Procedure Practitioner Unavailab FRANCIS Cruz Surgeon Unavailable Hanna Mathias MD Primary Care Provider [phone] Hanna Mathias MD Primary Care Provider [phone] Hanna Mathias MD Primary Care Provider [phone] HANNA MATHIAS Admitting Unavailable STEW, [...] STEW, DR FERREIRA Consulting Unavailable STEW, DR FERRERIA Admitting Unavailable STEW, DR FERREIRA Attending Unavailable [...] TypeDate of OnsetReaction(s) FacilityAminoglycosides (antibiotic) (1 source)TobramycinDrug Bofajzy52-47-1132Dcico: See CommentsMarion Hospital Macrolides (antibiotic) (2 sources)AzithromycinDrug Vqguimo71-53-1651HfwmtbfGmuzleyip ClinicSulfonamides (antibiotic) (1 source)Sulfonamides (Antibiotic)Drug Boqqitd54-63-1441OyslnfkNxzllrwzp Clinic (4 sources)Azithromycin; Translations: [AZITHROMYCIN]Drug Gfglvia02-64-7266[facility] Repository (3 sources)Sulfonamides (Antibiotic); Translations: [SULFA (SULFONAMIDE ANTIBIOTICS)]Drug allergy (disorder)24-68-8984QchOhio[facility] Repository (20 sources)AzithromycinDrug Ydxpzus96-05-2875Eknyhdg, Other (See Comments) [facility] (20 sources)Erythromycin; Translations: [ERYTHROMYCIN]Drug Kogmptz09-12-4066 UnknownMarion Hospital (20 sources)Sulfonamides (Antibiotic)Drug Jvoffax67-47-7675Abqbedp, Other (See Comments)[facility] (20 sources)Tobramycin; Translations: [TOBRAMYCIN]Drug Zokhfej83-46-1326Xdanm: See Comments, GI DisturbanceMarion Hospital (1 source)ErythromycinDrug AllergyTr[facility]ull [facility] Repository (3 sources)Neomycin; Translations: [NEOMYCIN]Drug Ohtqsgh31-53-5584Jomxt (See Comments)[facility] (2 sources)Pseudoephedrine; Translations: [PSEUDOEPHEDRINE]Drug Allergy 97-44-8973Dqppt (See Comments)[facility] (1 source)Pseudoephedrine; Translations: [Entex]Drug [facility]ergyPark[facility] (1 source)Sulfonamides (Antibiotic); Translations: [sulfa drugs]Propensity to adverse reactions (disorder)[facility]ository Medications Current Medications MedicationDrug Class(es)DatesSig (Normalized)Sig (Original)dexamethasone 4 mg oral tablet (20 sources)CorticosteroidStart: 10-17-2023 End: 47-56-5566kfum 2 tablets by mouth every weekdexAMETHasone (DECADRON) 4 mg tablet TAKE 2 TABLETS BY MOUTH ONCE A WEEK 24 tablet 3 01/28/2024 ActiveStart: 06-02-2021 End: 78-97-5865mmce 2 tablets by mouth every weekdexAMETHasone (DECADRON) 4 mg tablet TAKE 2 TABLETS BY MOUTH ONCE A WEEK 24 tablet 3 10/16/2022 ActiveComment on above:TAKE 2 TABLETS BY MOUTH ONCE A WEEKempagliflozin 10 mg oral tablet (20 sources)Sodium-Glucose Cotransporter 2 InhibitorStart: 52-19-6801ojmu 1 tablet by mouth once dailyJARDIANCE 10 mg tablet Take 10 mg by mouth once daily. 08/21/2022 ActiveComment on above:Take 10 mg by mouth once daily.fenofibrate 145 mg oral tablet (20 sources)Peroxisome Proliferator Receptor alpha AgonistStart: 29-19-8223avub 1 tablet by mouth once dailyfenofibrate nanocrystallized (TRICOR) 145 mg tablet Take 145 mg by mouth once daily. 10/29/2017 ActiveComment on above:Take 145 mg by mouth once daily. 30 actuat fluticasone furoate 0.1 mg/actuat / vilanterol 0.025 mg/actuat dry powder inhaler (20 sources)Corticosteroid, beta2-Adrenergic AgonistStart: 38-26-5489JCXG ELLIPTA 100-25 mcg/dose inhaler 1 Inhalation once daily. 08/05/2018 Active Comment on above:1 Inhalation once daily. glyBURIDE 6 mg oral tablet (20 sources)SulfonylureaStart: 78-49-9837orsRVMYLK micronized (GLYNASE) 6 mg tablet 02/15/2023 ActiveStart: 36-08-1448jqoJGDNAH micronized (GLYNASE) 3 mg tabletlenalidomide 5 mg oral capsule (20 sources)Thalidomide AnalogStart: 01-19-2025 End: 35-26-1102aignmqcmlryh (REVLIMID) 5 mg capsule Take 1 capsule by mouth daily for 21 days on and 7 days off. 21 capsule 02/27/2025 ActiveStart: 10-17-2023 End: 55-58-3437zteomdzswedp (REVLIMID) 5 mg capsule Take 1 capsule by mouth daily for 21 days on and 7 days off. 21 capsule 12/11/2024 1:22 PM EDT 12/11/2024 ActiveStart: 06-18-2023 End: 39-10-9153lvfttuzunqfy (REVLIMID) 5 mg capsule Take 1 capsule by mouth daily for 21 days on and 7 days off. 21 capsule 0 08/20/2023 ActiveStart: 79-13-9317kshguntomuyr (REVLIMID) 5 mg capsule Take 1 capsule by mouth daily for 21 days on and 7 days off. 21 capsule 0 05/11/2023 ActiveStart: 03-06-2023 End: 98-45-8363uzcmlzmhqczv (REVLIMID) 5 mg capsule Take 1 capsule by mouth daily for 21 days on and 7 days off. 21 capsule 0 04/18/2023 ActiveStart: 07-20-2022 End: 84-87-2052mycjoxbfhhet (REVLIMID) 5 mg capsule Take 1 capsule by mouth daily for 21 days on and 7 days off. 21 capsule 0 02/05/2023 ActiveStart: 11-28-2021 End: 96-68-6679ofzvidyepvtc (REVLIMID) 5 mg capsule Take 1 capsule by mouth daily for 21 days on and 7 days off. 21 capsule 0 06/17/2022 ActiveComment on above:Take 1 capsule by mouth daily for 21 days on and 7 days off.liothyronine sodium 0.005 mg oral tablet (20 sources)l-TriiodothyronineStart: 68-26-0019yfpf 2 tablets by mouth in the morningliothyronine (CYTOMEL) 5 MCG tablet Take 2 tablets (10 mcg total) by mouth in the morning. 07/27/2024 ActiveStart: 34-61-3578cfzyupiaoopk (CYTOMEL) 5 mcg tablet 08/12/2021 Activemeloxicam 15 mg oral tablet (20 sources)Nonsteroidal Anti-inflammatory DrugStart: 91-30-9953QPLIQWKBO 15 mg tablet Take 15 mg by mouth as needed. 07/30/2013 ActiveComment on above:Take 15 mg by mouth as needed.metFORMIN hydrochloride 500 mg oral tablet (20 sources)BiguanideStart: 62-47-5274zbes 2 tablets by mouth once daily at [...] 10 mg oral tablet (20 sources)Opioid AgonistStart: 02-39-0197gwxMNEKJE IR (ROXICODONE) 10 mg tab 10 mg [...] suspension (20 sources)Aminoglycoside Antibacterial, CorticosteroidStart: 08-01-2019 End: 11-76-1038aulp 2 drop(s) into the eye(s) four times dailytobramycin- dexamethasone (TOBRADEX) ophthalmic suspension INSTILL 2 DROPS INTO AFFECTED EYE 4 TIMESDAILY 0 08/01/2019 11/27/2023 Discontinued (Discontinued by another Health Care Provider)Comment on above:INSTILL 2 DROPS INTO AFFECTED EYE 4 TIMES DAILYdexlansoprazole 60 mg delayed release oral capsule (20 sources)Proton Pump InhibitorStart: 09-20-2021 End: 41-41-1061cumg 1 capsule by mouth once dailyDEXILANT 60 mg CpDM Take 1 capsule by mouth once daily. 0 09/20/2021 05/09/2024 DiscontinuedComment on above:Take 1 capsule by mouth once daily.hydrocortisone 10 mg/ml / neomycin 3.5 mg/ml / polymyxin b 68602 unt/ml otic solution (20 sources)Aminoglycoside Antibacterial, Polymyxin-class Antibacterial, CorticosteroidStart: 05-29-2019 End: 21-26-1497vzrnawlr-polymyxin-hydrocortisone (CORTISPORIN) otic solution INSTILL 3 4 DROPS IN AFFECTED EAR FOUR TIMES DAILY 1 05/29/2019 11/27/2023 Discontinued (Discontinued by Patient)Comment on above:INSTILL 3 4 DROPS IN AFFECTED EAR FOUR TIMES DAILYlevothyroxine sodium 0.05 mg oral tablet (20 sources)l-ThyroxineStart: 12-31-2014 End: 52-24-1956zwdq 1 tablet by mouth once dailylevothyroxine (SYNTHROID) 50 mcg tablet Take 50 mcg by mouth once daily. 0 12/31/2014 05/09/2024 Discontinued Comment on above:Take 50 mcg by mouth once daily. metroNIDAZOLE 500 mg oral tablet (20 sources)Nitroimidazole AntimicrobialStart: 08-15-2021 End: 18-85-2354hvccuBQOFJDCF (FLAGYL) 500 mg tabletmoxifloxacin (1 source)Quinolone AntimicrobialStart: 10-30-2024 End: 77-74-9518mhuouxdjqhjz HCl (MOXIFLOXACIN 0.5%-PREDNISOLONE 1%-BROMFENAC 0.09% DROPS - BUDERER ) Administer 1 drop to the right eye in the morning and 1 drop before bedtime. Do all this for 30 days. One drop twice a day to operative eye for one week, then daily for three weeks.. 10/30/2024 11/20/2024 Discontin uedpamidronate 30 mg in NaCl 0.9% 250 mL (AREDIA) (2 sources)Start: 02-17-2025 End: 84-95-142364 mg, INTRAVENOUS, at 125 mL/hr, Administer over 2 Hours, ONCE, 1 dose, On Sun02/17/25 at 1200, APPROXIMATE TOTAL VOLUME____mL - 24 HOUR EXP: 02/18/2025 1210 RT Hazardous Potential Reproductive RiskDrug: Use appropriate PPE.Start: 02-26-2024 End: 03-10-1791fevgrukjpbm 30 mg in NaCl 0.9% 250 mL (AREDIA)pioglitazone 30 mg oral tablet (20 sources)Peroxisome Proliferator Receptor alpha Agonist, Peroxisome Proliferator Receptor gamma Agonist, ThiazolidinedioneStart: 08-03-2021 End: 83-27-1378bdcfwarfvsnq (ACTOS) 30 mg tablet End: 09-54-8365ugth 1 tablet by mouth in the morningpioglitazone (ACTOS) 15 mg tablet Take 1 tablet (15 mg total) by mouth in the morning. 11/20/2024 Di scontinuedvancomycin 250 mg oral capsule (20 sources)Glycopeptide AntibacterialStart: 08-15-2021 End: 74-98-0602vbdurcwsco (VANCOCIN) 250 mg capsule 0 08/15/2021 11/27/2023 Discontinued (Discontinued by another Health Care Provider) Problems Active Problems Problem ClassificationProblemDateDocumented DateEpisodic/ChronicCataract (1 source)CataractOnset: 65-47-6934Zdetozb kidney disease (20 sources)Chronic kidney disease stage 3; Translations: [Stage 3 chronic kidney disease, unspecified whether stage 3a or 3b CKD]Onset: 03-06-2023 83-70-9825LmcrcllVpggpqit mellitus without complication (20 sources)Diabetes mellitus; Translations: [Type 2 diabetes mellitus without complications]Onset: 128106-29-4566CtcipdpLepjzpkiy of lipid metabolism (1 source)Hyperlipidemia, unspecified; Translations: [HYPERLIPIDEMIA UNSPECIFIED]Onset: 11-50-0426InuwygoGkmgyyvy myeloma (20 sources)Multiple myeloma; Translations: [Multiple myeloma not having achieved remission]Onset: 753388-48-8571LvjxfdwZqthm bone disease and musculoskeletal deformities (20 sources)Osteitis deformans; 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]Onset: 487739-99-6137IafjtbmSenqr bone disease and musculoskeletal deformities (1 source)Osteitis deformans of unspecified bone; 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]Onset: 14-55-8934Mbbyxjj Past or Other Problems Problem ClassificationProblemDateDocumented DateEpisodic/ChronicAbdominal hernia (20 sources)Left inguinal hernia ; Translations: [Unilateral inguinal hernia, without obstruction or gangrene, not specified as recurrent]Onset: 10-20-2015 84-54-1692LweqjnntPrvx and rectal conditions (20 sources)Perineal irritation; Translations: [Other specified diseases of anus and rectum]Onset: 569891-85-2543NgujawqaBdguzmgz mellitus without complication (1 source)Other abnormal glucose; Translations: [OTHER ABNORMAL GLUCOSE]Onset: 82-03-6907NczlsqjnBjwrlgailtqtpbna hemorrhage (20 sources)Hemorrhage of rectum and anus; Translations: [Hemorrhage of anus and rectum]Onset: 800306-68-7445ArimkuvtRdoohcc and fatigue (5 sources)Other fatigue; Translations: [OTHER FATIGUE]Onset: 38-56-4035Oivfoqcd Other aftercare (20 sources)Long-term current use of systemic steroid; Translations: [intermediate frame tender (current) use of systemic steroids]Onset: 211663-83-7848LvpupfzoNhwkp connective tissue disease (1 source)Abnormal posture; Translations: [ABNORMAL POSTURE]Onset: 03-28-2022 EpisodicOther connective tissue disease (1 source)Pain in right hand; Translations: [PAIN IN RIGHT HAND]Onset: 32-58-7100TnzqrhlgAmohr gastrointestinal disorders (20 sources)H/O: ulcerative colitis; Translations: [Personal history of other diseases of the digestive system]Onset: 112982-98-1372JrpjxkvbNfkdx gastrointestinal disorders (20 sources)Constipation; Translations: [Outlet dysfunction constipation]Onset: 557345-92-5110VaelfznrYqerc screening for suspected conditions (not mental disorders or infectious disease) (20 sources)Raised prostate specific antigen; Translations: [Elevated prostate specific antigen [PSA]]Onset: 072283-95-6194OyhzrnbsIkrvixna codes; unclassified (4 sources)Acquired absence of other specified parts of digestive tract; Translations: [ACQ ABSENCE OTH PART DIGESTV TRACT]Onset: 83-12-8143Tcgzwfnl Screening and history of mental health and substance abuse codes (20 sources)Ex-smoker; Translations: [Personal history of nicotine dependence] Onset: 324763-85-6789TiplswpjNldofxdghfk; intervertebral disc disorders; other back problems (4 sources)Radiculopathy, cervical region; Translations: [RADICULOPATHY CERVICAL REGION]Onset: 01-39-1803OodctfgnIwxgtgjwtrpf (1 source)Preprocedural examination yguo05-83-2208 Results Test NameValueInterpretationReference RangeFacilityCBC W Auto Differential panel (Bld)on 31-42-1857Ojeodvcoy (Bld) [#/Vol]0.08 10*3/uLNINFMarion Hospital Basophils/100 WBC (Bld)1.5 %Marion HospitalDifferential cell count method Nom (Bld)AutoCleveland ClinicEosinophils (Bld) [#/Vol]0.38 10*3/uLNINFCleMiami Valley HospitalEosinophils/100 WBC (Bld)6.9 %Marion HospitalErythrocyte distribution width (RBC) [Ratio]14.5 %11.5 - 15.0 %Marion HospitalHematocrit (Bld) [Volume fraction]44.2 %39.0 - 51.0 %Marion HospitalHemoglobin (Bld) [Mass/Vol]15.4 g/dL 13.0 - 17.0 g/dLMarion HospitalImmature granulocytes (Bld) [#/Vol]0.04 10*3/uL NINFCleveland ClinicImmature granulocytes/100 WBC (Bld)0.7 %[facility] Interpretation and review of laboratory resultsAbnormalCOhioHealth Hardin Memorial Hospital Lymphocytes (Bld) [#/Vol]1.09 10*3/uLMarion HospitalLymphocytes/100 WBC (Bld) 19.8 %[facility] Valley HospitalH (RBC) [Entitic mass]34.8 oyRocq52.0 - 34.0 pgCCleveland Clinic South Pointe HospitalHC (RBC) [Mass/Vol]34.8 g/dL30.5 - 36.0 g/dLOhio Valley HospitalV (RBC) [Entitic vol]100 fL80.0 - 100.0 fLCOhioHealth Hardin Memorial HospitalMonocytes (Bld) [#/Vol]0.8 10*3/NINFMarion HospitalMonocytes/100 WBC (Bld)14.5 %[facility] Neutrophils (Bld) [#/Vol]3.12 10*3/uLMarion HospitalNeutrophils/100 WBC (Bld) 56.6 %Marion HospitalNucleated RBC (Bld) [#/Vol]NINFCOhioHealth Hardin Memorial HospitalNucleated RBC/100 WBC (Bld) [Ratio]0 %/100 WBCMarion HospitalPlatelet mean volume (Bld) [Entitic vol]10.6 fL9.0 - 12.7 fLCOhioHealth Hardin Memorial HospitalPlatelets (Bld) [#/Vol]217 10*3/uLMarion HospitalRBC (Bld) [#/Vol]4.42 10*6/uL4.20 - 6.00 m/UC HealthWBC (Bld) [#/Vol]5.51 10*3/[facility] ClinicBasophils (Bld) [#/Vol]0.08 10*3/Normal<0.11CFulton County Health Center on above: Order Comment: Specimen Type: BLOOD SPECIMENOrdering Facility: [facility] Address:[address] [place] [address]Pfijkzqhl By: #### 27749- 8 ####[facility] LABCLIA [id number] [place], [place] [address]Mfuypjzeh/100 WBC (Bld)1.5 %NormalMercy Health St. [facility] on above:Order Comment: Specimen Type: BLOOD SPECIMENOrdering Facility: [facility] Address:[address] [place], [place] [address]Performed By: #### 11070-4 ####[facility] LABIA [id number] [place], [place] [address]Lpmisqkvoyio cell count method Nom (Bld)AutoNormalClevelMorrow County Hospital on above:Order Comment: Specimen Type: BLOOD SPECIMENOrdering Facility: [facility] Address:[address] [place], [place] [address]Performed By: #### 96167-9 ####[facility] LABIA [id number] [place], [place] [address]Nadyattjwci (Bld) [#/Vol]0.38 10*3/uLNormal<0.46[facility] on above:Order Comment: Specimen Type: BLOOD SPECIMENOrdering Facility: [facility] Address:[address] [place], [place] [address]Performed By: #### 39152-8 ####[facility] CENTERIA [id number] [place], [place] [address]Wafrmmvqzmp/100 WBC (Bld)6.9 %NormalMercy Health St. [facility] on above:Order Comment: Specimen Type: BLOOD SPECIMENOrdering Facility: [facility] Address:[address] [place], [place] [address]Performed By: #### 06651-5 ####[facility] LABIA [id number] [place], [place] [address]Nagylctvwai distribution width (RBC) [Ratio]14.5 %Normal 11.5-15.0[facility] on above:Order Comment: Specimen Type: BLOOD SPECIMENOrdering Facility: [facility] Address:[address] [place], [place] [address]Performed By: #### 88241-4 ####[facility] LABIA [id number] [place] [address] Hematocrit (Bld) [Volume fraction]44.2 %Npnazg79.0-51.0[facility] on above:Order Comment: Specimen Type: BLOOD SPECIMENOrdering Facility: [facility] Address:[address] [place], [place] [address]Performed By: #### 62100-1 ####[facility] LABIA [id number] [place], [place] [address]Huyuvqubvx (Bld) [Mass/Vol]15.4 g/lVMhznbm64.0-17.0[facility] on above:Order Comment: Specimen Type: BLOOD SPECIMENOrdering Facility: [facility] Address:[address] [place], [place] [address]Performed By: #### 73396-2 ####[facility] LABIA [id number] [place], [place] [address]Cthlmmsl granulocytes (Bld) [#/Vol]0.04 10*3/uLNormal <0.10[facility] on above:Order Comment: Specimen Type: BLOOD SPECIMENOrdering Facility: [facility] Address:[address] [place], [place] [address]Performed By: #### 41474-3 ####[facility] LABIA [id number] [place], [place] [address]Kuspmtyp granulocytes/100 WBC (Bld)0.7 %NormalMercy Health St. [facility] on above: Order Comment: Specimen Type: BLOOD SPECIMENOrdering Facility: [facility] Address:[address] [place], [place] [address]Performed By: #### 56050- 8 ####[facility] LABIA [id number] [place], [place] [address]Fzkopvedesp (Bld) [#/Vol]1.09 10*3/uLNormal1.00-4.[address] on above:Order Comment: Specimen Type: BLOOD SPECIMENOrdering Facility: [facility] Address:[address] [place], [place] [address]Performed By: #### 78088-5 ####[facility] LABIA [id number] [place], [place] [address]Lkhuwklwvae/100 WBC (Bld)19.8 %NormalMercy Health St. [facility] on above:Order Comment: Specimen Type: BLOOD SPECIMENOrdering Facility: [facility] Address:[address] [place], [place] [address]Performed By: #### 46347-9 ####[facility] LABCLIA [id number] [place], [place] [address]OZD (RBC) [Entitic mass]34.8 ybRpzf31.0-34.0[facility] on above:Order Comment: Specimen Type: BLOOD SPECIMENOrdering Facility: [facility] Address:[address] [place], [place] [address]Performed By: #### 10668-4 ####[facility] LABIA [id number] [place], [place] [address]GAKU (RBC) [Mass/Vol]34.8 g/bHHrywrv58.5-36.0[facility] on above: Order Comment: Specimen Type: BLOOD SPECIMENOrdering Facility: [facility] Address:[address] [place], [place] [address]Performed By: #### 83658- 8 ####[facility] LABCLIA [id number] [place], [place] [address]DJI (RBC) [Entitic vol]100.0 xVOclolx22.0-100.0[facility] on above:Order Comment: Specimen Type: BLOOD SPECIMENOrdering Facility: [facility] Address:[address] [place], [place] [address]Performed By: #### 72449-3 ####[facility] LABIA [id number] [place], [place] [address]Womcygsbi (Bld) [#/Vol]0.80 10*3/uLNormal<0.87[facility] on above:Order Comment: Specimen Type: BLOOD SPECIMENOrdering Facility: [facility] Address:[address] [place], [place] [address]Performed By: #### 00718- 8 ####[facility] LABCLIA [id number] [place], [place] [address]Kgxgzofva/100 WBC (Bld)14.5 %NormalMercy Health St. [facility] on above:Order Comment: Specimen Type: BLOOD SPECIMENOrdering Facility: [facility] Address:[address] [place], [place] [address]Performed By: #### 46642-4 ####[facility] LABCLIA [id number] [place], [place] [address]Bgfmqstdlqz (Bld) [#/Vol]3.12 10*3/uLNormal1.45-7.50[facility] on above:Order Comment: Specimen Type: BLOOD SPECIMENOrdering Facility: [facility] Address:[address] [place], [place] [address]Performed By: #### 86369-2 ####[facility] LABCLIA [id number] [place], [place] [address]Nupfzokpgbi/100 WBC (Bld)56.6 %NormalMercy Health St. [facility] on above:Order Comment: Specimen Type: BLOOD SPECIMENOrdering Facility: [facility] Address:[address] [place], [place] [address]Performed By: #### 92541-1 ####[facility] LABIA [id number] [place], [place] [address]Ejhqayhvd RBC (Bld) [#/Vol] 10*3/uLNormal<0.01[facility] on above:Order Comment: Specimen Type: BLOOD SPECIMENOrdering Facility: [facility] Address:[address] [place], [place] [address]Performed By: #### 76841-5 ####[facility] LABCLIA [id number] [place], [place] [address]Ihtfmmdep RBC/100 WBC (Bld) [Ratio]0.0 /[address] [facility] on above:Order Comment: Specimen Type: BLOOD SPECIMENOrdering Facility: [facility] Address:[address] [place], [place] [address]Performed By: #### 59547-8 ####[facility] LABCLIA [id number] [place], [place] [address]Xntrylsl mean volume (Bld) [Entitic vol]10.6 fLNormal9.0-12.7CFulton County Health Center on above:Order Comment: Specimen Type: BLOOD SPECIMENOrdering Facility: [facility] Address:[address] [place] [address] Performed By: #### 99243-1 ####[facility] LABCLIA [id number] [place], [place] [address]Ccrhjctqm (Bld) [#/Vol]217 10*3/mQYikknx455-202DpptkguwqMer[address] [facility] on above:Order Comment: Specimen Type: BLOOD SPECIMENOrdering Facility: [facility] Address:[address] [place], [place] [address]Performed By: #### 48252-3 ####[facility] LABCLIA [id number] [place], [place] [address]IST (Bld) [#/Vol]4.42 10*6/uLNormal4.20-6.00[facility] on above:Order Comment: Specimen Type: BLOOD SPECIMENOrdering Facility: [facility] Address:[address] [place], [place] [address]Performed By: #### 42245-1 ####[facility] LABIA [id number] [place], [place] [address]CFW (Bld) [#/Vol]5.51 10*3/uLNormal3.70-1100[facility] on above: Order Comment: Specimen Type: BLOOD SPECIMENOrdering Facility: [facility] Address:[address] [place], [place] [address]Muonnvcba By: #### 21614- 8 ####[facility] LABCLIA [id number] [place], [place] [address]UCEFABpm 56-73-0332SQLMSPVldgt (SP) Office ([place]) ZACH MANUEL ([id number]) 1945 M Date Time Provider Department 02/17/25 [...] mellitus (HCC) Hyperlipidemia Monoclonal gammopathy 11/2002 IgG [place] Multiple myeloma (HCC) 2002 Ulcerative colitis (HCC) [...] and chronic inflammation RADIOLOGY/ (more content not included)...NormalMercy Hospital Comprehensive metabolic 2000 panelon 55-70-7119Xvztjfg [Mass/Vol]4.2 g/dL3.9 - 4.9 g/dLWatsonville ClinicALP [Catalytic activity/Vol]95 U/L38 - 113 U/LCleveland [...] 11:40 AM EDT.Bilirubin [Mass/Vol]1.7 mg/dLHigh0.2 - 1.3 mg/dLWatsonville ClinicCalcium [Mass/Vol]8.5 mg/dL8.5 - 10.2 mg/dLMarion HospitalComment on above:Corrected result: Previously reported as 8.3 mg/dL on 02/17/2025 at 11:40 AM EDT.Chloride [Moles/Vol]101 mmol/L98 - 107 mmol/LCleveland ClinicCO2 [Moles/Vol]26 mmol/L22 - 30 mmol/LCleveland ClinicCreatinine [Mass/Vol]1.6 mg/dLHigh0.73 - 1.22 mg/dL Marion HospitalGFR/1.73 sq M.predicted among non-blacks MDRD (S/P/Bld) [...] eGFRmay not accurately reflect actual GFR.Glucose [Mass/Vol]185 mg/pEVswq12 - 99 mg/dLMarion HospitalComment on above:The [place] [employer] (ADA) provides guidance for cutoff [...] Standards of Medical Care in Diabetes 2016, [place] [employer]. Diabetes Care. 2016.39(Suppl 1). Corrected result: Previously reported as 189 mg/dL on 02/17/2025 at 11:40 AM EDT. Interpretation and review of laboratory resultsAbnormalCleveland ClinicPotassium [Moles/Vol]4.6 mmol/L3.7 - 5.1 mmol/LCleveland ClinicProtein [Mass/Vol]7 g/dL 6.3 - 8.0 g/dLMarion HospitalComment on above:Corrected result: Previously reported as 6.6 g/dL on 02/17/2025 at 11:40 AM EDT.Sodium [Moles/Vol]138 mmol/L 136 - 144 mmol/LCleveland ClinicUrea nitrogen [Mass/Vol]23 mg/dL9 - 24 mg/dL Marion HospitalComment on above:Corrected result: Previously reported as 25 mg/dL on 02/17/2025 at 11:40 AM EDT.[place] ClinicAlbumin [Mass/Vol]4.2 g/dL Normal3.9-4.9ClevelCone HealthComment on above:Order Comment: Specimen Type: BLOOD SPECIMENOrdering Facility: [facility] Address:[address] [place], [place] [address]Performed By: #### 86341-1 ####[facility] LABIA [id number] [place] [address] [place] AMERICAALP [Catalytic activity/Vol]95 U/PDipaez73-429OrracrzuyMercy Health St. [facility] on above:Order Comment: Specimen Type: BLOOD SPECIMENOrdering Facility: [facility] Address:[address] [place], [place] [address]Result Comment: Corrected result: Previously reported as 99 U/L on 02/17/2025 at 11:40 AM EDT.Performed By: #### 21650-9 ####[facility] LABIA [id number] [place] [address] [place] AMERICAALT [Catalytic activity/Vol]15 U/JHtbyxr38-54LbtgniezyMercy Health St. [facility] on above:Order Comment: Specimen Type: BLOOD SPECIMENOrdering Facility: [facility] Address:[address] [place], [place] [address]Result Comment: Corrected result: Previously reported as 12 U/L on 02/17/2025 at 11:40 AM EDT.Performed By: #### 78086-7 ####[facility] LABCLIA [id number] [place] [address] [place] AMERICAAnion gap [Moles/Vol]11 mmol/LNormal8-15[facility] on above:Order Comment: Specimen Type: BLOOD SPECIMENOrdering Facility: [facility] Address:[address] [place], [place] [address]Performed By: #### 38798-2 ####[facility] LABIA [id number] [place] [address] [place] AST [Catalytic activity/Vol]22 U/UQbbbzs60-26OflssybboMercy Health St. [facility] on above:Order Comment: Specimen Type: BLOOD SPECIMENOrdering Facility: [facility] Address:[address] [place], [place] [address]Result Comment: Corrected result: Previously reported as 15 U/L on 02/17/2025 at 11:40 AM EDT.Performed By: #### 12094-6 ####[facility] LABIA [id number] [place] [address] [place] Bilirubin [Mass/Vol]1.7 mg/dLHigh0.2-1.3CFulton County Health Center on above:Order Comment: Specimen Type: BLOOD SPECIMENOrdering Facility: [facility] Address:[address] [place], [place] [address]Performed By: #### 47783-0 ####[facility] LABIA [id number] [place] [address] [place] AMERICACalcium [Mass/Vol]8.5 mg/dLNormal8.5-10.2ClevelMorrow County Hospital on above:Order Comment: Specimen Type: BLOOD SPECIMENOrdering Facility: [facility] Address:[address] [place], [place] [address]Result Comment: Corrected result: Previously reported as 8.3 mg/dL on 02/17/2025 at 11:40 AM EDT.Performed By: #### 04847-8 ####[facility] LABCLIA [id number] [place] [address] [place] AMERICAChloride [Moles/Vol] 101 mmol/QHgwdgw60-514VdwflcnnwMercy Health St. [facility] on above:Order Comment: Specimen Type: BLOOD SPECIMENOrdering Facility: [facility] Address:[address] [place], [place] [address]Performed By: #### 27348-2 ####[facility] LABCLIA [id number] [place] [address] [place] AMERICACO2 [Moles/Vol]26 mmol/LNormal 22-30[facility] on above:Order Comment: Specimen Type: BLOOD SPECIMENOrdering Facility: [facility] Address:[address] [place], [place] [address]Performed By: #### 10304-6 ####[facility] LABCLIA [id number] [place] [address] [place] AMERICACreatinine [Mass/Vol]1.60 mg/dLHigh0.73-1.22[facility] on above:Order Comment: Specimen Type: BLOOD SPECIMENOrdering Facility: [facility] Address:[address] [place], [place] [address]Performed By: #### 29473-5 ####[facility] LABIA [id number] [place] [address] [place] Creatinine and Glomerular filtration rate.predicted panel (S/P/Bld)44 mL/min/1.73m???Low>=60[facility] on above:Order Comment: Specimen Type: BLOOD SPECIMENOrdering Facility: [facility] Address:[address] [place], [place] [address]Result Comment: Estimated Glomerular Filtration Rate (eGFR) is calculated using the 2020 CKD-EPI creatinine equation. This equation utilizes serum creatinine, sex, and age as parameters. The creatinine assay has traceable calibration to isotope dilution-mass spectrometry. Refer to KDIGO guidelines for clinical interpretation. In patients with unstable renal function, e.g. those with acute kidney injury, the eGFR may not accurately reflect actual GFR.Performed By: #### 90621-7 ####[facility] LABCLIA [id number] [address] [address] [place] OF AMERICAGlucose [Mass/Vol]185 mg/hRGhar67-35DmpgahnsiMercy Health St. [facility] on above:Order Comment: Specimen Type: BLOOD SPECIMENOrdering Facility: [facility] Address:[address] [place], [place] [address]Result Comment: The [place] Diabetes Association (ADA) provides guidance for cutoff [...] Standards of Medical Care in Diabetes 2016, [place] [employer]. Diabetes Care. 2016.39(Suppl 1). Corrected result: Previously reported as 189 mg/dL on 02/17/2025 at 11:40 AM EDT. Performed By: #### 61573-3 ####[facility] LABCLIA [id number] [address] [address] [place] Potassium [Moles/Vol]4.6 mmol/LNormal3.7-5.1CFulton County Health Center on above:Order Comment: Specimen Type: BLOOD SPECIMENOrdering Facility: [facility] Address:[address] [place] [id number] By: #### 53441-5 ####[facility] LABIA [id number] [address] [address] [place] AMERICAProtein [Mass/Vol]7.0 g/dLNormal6.3-8.0[facility] on above:Order Comment: Specimen Type: BLOOD SPECIMENOrdering Facility: [facility] Address:[address] [place], [place] [address]Result Comment: Corrected result: Previously reported as 6.6 g/dL on 02/17/2025 at 11:40 AM EDT.Performed By: #### 56967-0 ####[facility] LABCLIA [id number] [address] STATES OF [facility] HEALTH SYSTEMSodium [Moles/Vol]138 mmol/DYcnwrd619-232ZycofdzizMercy Health St. [facility] on above:Order Comment: Specimen Type: BLOOD SPECIMENOrdering Facility: [facility] Address:[address] [place], [place] [address]Performed By: #### 64151-2 ####[facility] [id number] [address] STATES OF AMERICAUrea nitrogen [Mass/Vol]23 mg/dL Normal9-24[facility] on above:Order Comment: Specimen Type: BLOOD SPECIMENOrdering Facility: [facility] Address:[address] [place], [place] [address]Result Comment: Corrected result: Previously reported as 25 mg/dL on 02/17/2025 at 11:40 AM EDT.Performed By: #### 25302-4 ####[facility] LABIA [id number] [place] [address] [place] AMERICAIMMUNOFIXATION SCREEN, SERUMon 45-67-5301UVERTCNIUSWYXI (MPA)Atypical restricted bands are present in the IgG and kappa regions. Consistent with IgG kappa monoclonal gammopathy.Normal [facility] on above:Order Comment: Specimen Type: BLOOD SPECIMENOrdering Facility: [facility] Address:[address] [place], [place] [address]Performed By: #### IFESC ####[facility] LABCLIA [id number] [place] [address] [place] [facility]ALTH SYSTEMMPA RESULTM protein is present.AbnormalNo M protein is identified. [facility] on above:Order Comment: Specimen Type: BLOOD SPECIMENOrdering Facility: [facility] Address:[address] [place], [place] [address]Performed By: #### IFESC ####[facility] LABIA [id number] [address] STREETSTAFF REVIEW ([facility])Reviewed by Donaldo Rivas MD, Ph.D ([id number])Normal [facility] on above:Order Comment: Specimen Type: BLOOD SPECIMENOrdering Facility: [facility] Address:[address] [place], [place] [address]Performed By: #### IFESC ####[facility] [id number] [place] [address] [place] AMERICAIMMUNOGLOBULINS,IGG,IGA,IGMon 31-51-1989EeC [Mass/Vol]118 mg/dLNormal 70-400[facility] on above:Order Comment: Specimen Type: BLOOD SPECIMENOrdering Facility: [facility] Address:[address] [place], [place] [address]Performed By: #### SERIMM ####[facility] LABCLIA [id number] [place] [address] [place] AMERICAIgG [Mass/Vol]1245 mg/jRHloywh259-8562GfmxxcinqMercy Health St. [facility] on above:Order Comment: Specimen Type: BLOOD SPECIMENOrdering Facility: [facility] Address:[address] [place], [place] [address]Performed By: #### SERIMM ####[facility] LABCLIA [id number] [place] [address] [place] IgM [Mass/Vol]21 mg/lCDqk73-930TnruqyagdMercy Health St. [facility] on above:Order Comment: Specimen Type: BLOOD SPECIMENOrdering Facility: [facility] Address:[address] [place], [place] [address]Performed By: #### SERIMM ####[facility] [id number] [place] [address] [place] AMERICAKAPPA/DANIELS,FREE,SERon 02-17-2025 Immunoglobulin light chains.kappa.free (S) [Mass/Vol]37.4 mg/LHigh3.3-19.[address] [facility] on above:Order Comment: Specimen Type: BLOOD SPECIMENOrdering Facility: [facility] Address:[address] [place], [place] [address]Result Comment: Rarely, increased serum free light chains levels may not be detected or accurately quantified due to prozone phenomenon or in high viscosity samples using this immunoturbidimetric assay. Correlation with other laboratory results and clinical findings is recommended. The [place] Free Light Chain was performed using the Binding Site Optilite immunoturbidimetric method. Result obtained with different assay methods or kits cannot be used interchangeably.Performed By: #### KLFRS ####[facility] [id number] [place] [address] [place] AMERICAImmunoglobulin light chains.kappa/Immunoglobulin light chains.lambda (S) [Mass ratio]1.45Avjtbc1.26-1.65[facility] Comment on above:Order Comment: Specimen Type: BLOOD SPECIMENOrdering Facility: [facility] Address:[address] [place] [address] Performed By: #### KLFRS ####[facility] [id number] [place] [address] [place] AMERICAImmunoglobulin light chains.lambda.free [Mass/Vol]22.7 mg/LNormal5.7-26.3CFulton County Health Center on above:Order Comment: Specimen Type: BLOOD SPECIMENOrdering Facility: [facility] Address:[address] [place], [place] [address]Result Comment: Rarely, increased serum free light chains [...] cannot be used interchangeably.Performed By: #### KLFRS ####[facility] [id number] [address]ETPROTEIN ELECTROPHORESIS SERUM WITH TOÑITO (P)on 02-17-2025 Albumin [Mass/Vol]4.01 g/dLNormal3.43-5.41[facility] on above:Order Comment: Specimen Type: BLOOD SPECIMENOrdering Facility: [facility] Address:[address] [place], [place] [address]Performed By: #### [id number] ####[facility] [id number] [address]Alpha 1 globulin Elph [Mass/Vol]0.23 g/dLNormal0.18-0.43[facility] on above: Order Comment: Specimen Type: BLOOD SPECIMENOrdering Facility: [facility] Address:[address] [place], [place] [address]Performed By: #### [id number] ####[facility] [id number] [address] OF AMERICAAlpha 2 globulin Elph [Mass/Vol]0.66 g/dLNormal0.42-0.98[facility] on above: Order Comment: Specimen Type: BLOOD SPECIMENOrdering Facility: [facility] Address:[address] [place], [place] [address]Performed By: #### [id number] ####[facility] LABIA [id number] [address] OF AMERICABeta globulin Elph [Mass/Vol]0.73 g/dLNormal0.61-1.17[facility] on above: Order Comment: Specimen Type: BLOOD SPECIMENOrdering Facility: [facility] Address:[address] [place], [place] [address]Performed By: #### [id number] ####[facility] LABCLIA [id number] [place] [address] [place] AMERICACOMMENT (SERUM PROT ELECTRO)Monoclonal Protein analysis (immunofixation) is not indicated.Normal [facility] on above:Order Comment: Specimen Type: BLOOD SPECIMENOrdering Facility: [facility] Address:[address] [place], [place] [address]Performed By: #### [id number] ####[facility] LABIA [id number] [place] [address] [place] AMERICAGamma globulin Elph [Mass/Vol]1.08 g/dLNormal0.53-1.51[facility] on above:Order Comment: Specimen Type: BLOOD SPECIMENOrdering Facility: [facility] Address:[address] [place], [place] [address]Performed By: #### [id number] ####[facility] LABIA [id number] [place] [address] [place] INTERPRETATION COMMENT FOR PROTEIN ELECTROPHORESISSee separate immunofixation report for characterization of monoclonal gammopathy.NormalMercy Health St. [facility] on above:Order Comment: Specimen Type: BLOOD SPECIMENOrdering Facility: [facility] Address:[address] [place], [place] [address]Performed By: #### [id number] ####[facility] LABIA [id number] [place] [address] [place] M-PROTEIN LOCATIONGamma Fraction 1NormalMercy Health St. [facility] on above:Order Comment: Specimen Type: BLOOD SPECIMENOrdering Facility: [facility] Address:[address] [place], [place] [address]Performed By: #### [id number] ####[facility] LABIA [id number] [place] [address] [place] AMERICAProtein Fractions [Interp]An M protein is identified on protein electrophoresis.AbnormalNo definitive M protein is identified on protein electrophoresis.[facility] on above:Order Comment: Specimen Type: BLOOD SPECIMENOrdering Facility: [facility] Address:[address] [place], [place] [address]Performed By: #### [id number] ####[facility] [id number] [place] [address] [place] Protein.monoclonal Elph [Mass/Vol]0.65 g/dLHigh<=0.00[facility] Comment on above:Order Comment: Specimen Type: BLOOD SPECIMENOrdering Facility: [facility] Address:[address] [place] [address] Performed By: #### [id number] ####[facility] [id number] [place] [address] [place] SPE STAFF REVIEWReviewed by Donaldo Rivas MD, Ph.D ([id number])NormalMercy Health St. [facility] on above:Order Comment: Specimen Type: BLOOD SPECIMENOrdering Facility: [facility] Address:[address] [place], [place] [address]Performed By: #### [id number] ####[facility] [id number] [place] [address] [place] AMERICAProt SerPl-mCncon 15-86-3333Bffftnb [Mass/Vol]6.7 g/dLNormal6.3-8.[address] [facility] on above:Order Comment: Specimen Type: BLOOD SPECIMENOrdering Facility: [facility] Address:[address] [place], [place] [address]Performed By: #### 2885-2 ####[facility] LABIA [id number] [place] [address] [place] AMERICACNPNon [id number] (HEMTSA) ZACH MANUEL ([id number]) 1945 M Date Time Provider Department 02/13/25 KEYONNA FUENTES HEMTSA During your visit today, we recorded the following information about you: Keyonna Fuentes RN 02/13/2025 11:04 AM Signed Pt in for OV and Aredia on Saturday 02/17, please place and sign more orders. Thanks! TAYLER Aldana Kathryn, [facility] 02/13/2025 12:20 PM Signed Orders entered [...] Type 2 diabetes mellitus without complication (*10/20/2015 intermediate frame tender current use of systemic steroids [Z79*10/20/2015 Left inguinal hernia [K40.90] 10/20/2015 Former smoker [Z87.891] 10/20/2015 Elevated prostate specific antigen (PSA) [R97.2*03/19/2020 Stage 3 chronic kidney disease, unspecified whe*03/06/2023 Encounter Status:Closed by AINSLEY WOODSON on 02/13/25[facility] 12 leadon 37-30-7601XPORHQQMLHOPUYTthBzafztMercyOne Dyersville Medical CenterCNPNon 22-59-7184TBUURlpiayudx (HEMTSA) ZACH MANUEL ([id number]) 1945 M Date Time Provider Department 05/29/24 [...] Reason for Visit: Care Coordination [3497] Cmt: Lab Results Prescriptions as of 05/29/2024 [...] Type 2 diabetes mellitus without complication (*10/20/2015 FPC current use of systemic steroids [Z79*10/20/2015 Left inguinal hernia [K40.90] 10/20/2015 Former smoker [Z87.891] 10/20/2015 Elevated prostate specific antigen (PSA) [R97.2*03/19/2020 Stage 3 chronic kidney disease, unspecified whe*03/06/2023 Encounter Status:Closed by JUAN FERGUSON on 05/29/24NormalCSelect Medical [facility] W Auto Differential panel (Bld)on 99-49-1583Sfnosmqzg (Bld) [#/Vol] 0.09 10*3/uLNormal<0.11CFulton County Health Center on above:Order Comment: Specimen Type: BLOOD SPECIMENOrdering Facility: [facility] Address:[address] [place], [place] [address]Performed By: #### 20156-9 ####[facility] LABIA [id number] [place], [place] [address]Wddityrot/100 WBC (Bld)1.3 %NormalMercy Health St. [facility] on above:Order Comment: Specimen Type: BLOOD SPECIMENOrdering Facility: [facility] Address:[address] [place], [place] [address]Performed By: #### 10758-3 ####[facility] LABIA [id number] [place], [place] [address]Bawxbgoynnkm cell count method Nom (Bld)AutoNormAdena Regional Medical Center on above:Order Comment: Specimen Type: BLOOD SPECIMENOrdering Facility: [facility] Address:[address] [place], [place] [address]Performed By: #### 46034-7 ####[facility] LABIA [id number] [place], [place] [address]Knqlcscizfh (Bld) [#/Vol]0.32 10*3/uLNormal<0.46[facility] on above:Order Comment: Specimen Type: BLOOD SPECIMENOrdering Facility: [facility] Address:[address] [place], [place] [address]Performed By: #### 18477-5 ####[facility] LABIA [id number] [place], [place] [address]Tlikcwovxck/100 WBC (Bld)4.7 %NormalMercy HospitalComment on above:Order Comment: Specimen Type: BLOOD SPECIMENOrdering Facility: [facility] Address:[address] [place], [place] [address]Performed By: #### 81537-6 ####[facility] LABIA [id number] [place], [place] [address]Jsnqnkyqfoa distribution width (RBC) [Ratio]13.8 %Normal 11.5-15.0[facility] on above:Order Comment: Specimen Type: BLOOD SPECIMENOrdering Facility: [facility] Address:[address] [place], [place] [address]Performed By: #### 10629-5 ####[facility] LABIA [id number] [place] [address] Hematocrit (Bld) [Volume fraction]37.7 %Low39.0-51.0[facility] Comment on above:Order Comment: Specimen Type: BLOOD SPECIMENOrdering Facility: [facility] Address:[address] [place] [address] Performed By: #### 89884-5 ####[facility] LABIA [id number] [place], [place] [address]Uwufbbyjgd (Bld) [Mass/Vol]13.3 g/kQTavpqe62.0-17.0[facility] on above:Order Comment: Specimen Type: BLOOD SPECIMENOrdering Facility: [facility] Address:[address] [place], [place] [address]Performed By: #### 13737-6 ####[facility] LABIA [id number] [place], [place] [address]Cikajzta granulocytes (Bld) [#/Vol]0.03 10*3/uLNormal <0.10[facility] on above:Order Comment: Specimen Type: BLOOD SPECIMENOrdering Facility: [facility] Address:[address] [place], [place] [address]Performed By: #### 03850-2 ####[facility] LABCLIA [id number] [place], [place] [address]Gyavtoed granulocytes/100 WBC (Bld)0.4 %NormalMercy Health St. [facility] on above: Order Comment: Specimen Type: BLOOD SPECIMENOrdering Facility: [facility] Address:[address] [place], [place] [address]Performed By: #### 15801- 8 ####[facility] LABCLIA [id number] [place], [place] [address]Npfcumbgmrf (Bld) [#/Vol]1.04 10*3/uLNormal1.00-4.[address] [facility] on above:Order Comment: Specimen Type: BLOOD SPECIMENOrdering Facility: [facility] Address:[address] [place], [place] [address]Performed By: #### 94385-7 ####[facility] LABIA [id number] [place], [place] [address]Hfqwsdybeuj/100 WBC (Bld)15.3 %NormalMercy Health St. [facility] on above:Order Comment: Specimen Type: BLOOD SPECIMENOrdering Facility: [facility] Address:[address] [place], [place] [address]Performed By: #### 74873-1 ####[facility] LABIA [id number] [place], [place] [address]GYB (RBC) [Entitic mass]36.3 tlIyjs06.0-34.0[facility] on above:Order Comment: Specimen Type: BLOOD SPECIMENOrdering Facility: [facility] Address:[address] [place], [place] [address]Performed By: #### 27219-9 ####[facility] LABCLIA [id number] [place], [place] [address]CEUX (RBC) [Mass/Vol]35.3 g/oETudnhd25.5-36.0[facility] on above: Order Comment: Specimen Type: BLOOD SPECIMENOrdering Facility: [facility] Address:[address] [place], [place] [address]Performed By: #### 90881- 8 ####[facility] LABCLIA [id number] [place], [place] [address]MGF (RBC) [Entitic vol]103.0 cSFwbq78.0-100.0[facility] on above:Order Comment: Specimen Type: BLOOD SPECIMENOrdering Facility: [facility] Address:[address] [place], [place] [address]Performed By: #### 78812-8 ####[facility] LABIA [id number] [place], [place] [address]Nwdgtvkbs (Bld) [#/Vol]0.72 10*3/uLNormal<0.87[facility] on above:Order Comment: Specimen Type: BLOOD SPECIMENOrdering Facility: [facility] Address:[address] [place], [place] [address]Performed By: #### 63695- 8 ####[facility] LABCLIA [id number] [place], [place] [address]Jqugrzalx/100 WBC (Bld)10.6 %NormalMercy Health St. [facility] on above:Order Comment: Specimen Type: BLOOD SPECIMENOrdering Facility: [facility] Address:[address] [place], [place] [address]Performed By: #### 67067-7 ####[facility] LABIA [id number] [place], [place] [address]Ocekqdshggu (Bld) [#/Vol]4.60 10*3/uLNormal1.45-7.50[facility] on above:Order Comment: Specimen Type: BLOOD SPECIMENOrdering Facility: [facility] Address:[address] [place], [place] [address]Performed By: #### 98161-6 ####[facility] LABCLIA [id number] [place], [place] [address]Qmfxfpovdjz/100 WBC (Bld)67.7 %NormalMercy Health St. [facility] on above:Order Comment: Specimen Type: BLOOD SPECIMENOrdering Facility: [facility] Address:[address] [place], [place] [address]Performed By: #### 02549-3 ####[facility] LABCLIA [id number] [place], [place] [address]Jbvbnljsw RBC (Bld) [#/Vol] 10*3/uLNormal<0.01Mercy [facility] on above:Order Comment: Specimen Type: BLOOD SPECIMENOrdering Facility: [facility] Address:[address] [place], [place] [address]Performed By: #### 36266-0 ####[facility] LABCLIA [id number] [place], [place] [address]Outvmusnr RBC/100 WBC (Bld) [Ratio]0.0 /[address] [facility] on above:Order Comment: Specimen Type: BLOOD SPECIMENOrdering Facility: [facility] Address:[address] [place], [place] [address]Performed By: #### 56154-8 ####[facility] LABCLIA [id number] [place], [place] [address]Ypefgesd mean volume (Bld) [Entitic vol]10.6 fLNormal9.0-12.7CFulton County Health Center on above:Order Comment: Specimen Type: BLOOD SPECIMENOrdering Facility: [facility] Address:[address] [place] [address] Performed By: #### 61523-6 ####[facility] LABCLIA [id number] [place], [place] [address]Zsvniryjx (Bld) [#/Vol]172 10*3/vRRsrtov247-001KpfidtshwMercy Health [facility] on above:Order Comment: Specimen Type: BLOOD SPECIMENOrdering Facility: [facility] Address:[address] [place], [place] [address]Performed By: #### 88001-3 ####[facility] LABCLIA [id number] [place], [place] [address]TSZ (Bld) [#/Vol]3.66 10*6/uLLow4.20-6.00[facility] on above:Order Comment: Specimen Type: BLOOD SPECIMENOrdering Facility: [facility] Address:[address] [place], [place] [address]Performed By: #### 18709-9 ####[facility] LABIA [id number] [place], [place] [address]GYO (Bld) [#/Vol]6.80 10*3/uL Normal3.70-11.00[facility] on above:Order Comment: Specimen Type: BLOOD SPECIMENOrdering Facility: [facility] Address:[address] [place], [place] [address]Performed By: #### 64933-1 ####[facility] LABIA [id number] [place], [place] [address]MOPVGJvk 89-84-8765NUIPFQJvjnw (SP) Office (HEMASA) ZACH MANUEL ([id number]) 1945 M Date Time Provider Department 05/27/24 [...] date: Hyperlipidemia 11/2002: Monoclonal gammopathy Comment: IgG [place] 2002: Multiple myeloma (HCC) No date: Ulcerative [...] Prostate MRI IMPRESSION: Enla (more content not included)...NormalMercy HospitalCNPNon [id number] (HEMASA) ZACH MANUEL ([id number]) 1945 Jessica Date Time Provider Department 05/27/24 [...] Type 2 diabetes mellitus without complication (*10/20/2015 [facility] current use of systemic steroids [Z79*10/20/2015 Left inguinal hernia [K40.90] 10/20/2015 Former smoker [Z87.891] 10/20/2015 Elevated prostate specific antigen (PSA) [R97.2*03/19/2020 Stage 3 chronic kidney disease, unspecified whe*03/06/2023 Encounter Status:Closed by JUAN FERGUSON on 05/27/24NormalClevelCone HealthComprehensive metabolic 2000 panelon 51-32-3380Khquloy [Mass/Vol]3.9 g/dLNormal3.9-4.9CCleveland Clinic Mentor HospitalComment on above:Order Comment: Specimen Type: BLOOD SPECIMENOrdering Facility: [facility] Address:[address] [place], [place] [address]Result Comment: Corrected result: Previously reported as 4.1 g/dL on 05/27/2024 at 1:22 PM EDT.Performed By: #### 43033-2 ####[facility] LABCLIA [id number] [place] [address] [place] AMERICAALP [Catalytic activity/Vol]74 U/YXmkcxg64-022GsdrsliupMercy Health St[facility] on above:Order Comment: Specimen Type: BLOOD SPECIMENOrdering Facility: [facility] Address:[address] [place], [place] [address]Result Comment: Corrected result: Previously reported as 77 U/L on 05/27/2024 at 1:22 PM EDT.Performed By: #### 49194-7 ####[facility] LABIA [id number] [place] [address] [place] AMERICAALT [Catalytic activity/Vol]16 U/KMkkjfq70-08OehdogypsMercy Health St[facility] on above:Order Comment: Specimen Type: BLOOD SPECIMENOrdering Facility: [facility] Address:[address] [place], [place] [address]Result Comment: Corrected result: Previously reported as 10 U/L on 05/27/2024 at 1:22 PM EDT.Performed By: #### 64582-9 ####[facility] LABCLIA [id number] [place] [address] [place] AMERICAAnion gap [Moles/Vol] 12 mmol/LNormal8-15[facility] on above:Order Comment: Specimen Type: BLOOD SPECIMENOrdering Facility: [facility] Address:[address] [place], [place] [address]Performed By: #### 95101-2 ####[facility] LABIA [id number] [place] [address] [place] AMERICAAST [Catalytic activity/Vol]20 U/QDasxjx95-47NhysiptseMercy Health St[facility] on above:Order Comment: Specimen Type: BLOOD SPECIMENOrdering Facility: [facility] Address:[address], [place], [place] [address]Elxazj Comment: Corrected result: Previously reported as 13 U/L on 05/27/2024 at 1:22 PM EDT.Performed By: #### 90513-5 ####[facility] LABCLIA [id number] [place] [address] [place] AMERICABilirubin [Mass/Vol]0.9 mg/dL Normal0.2-1.3CCleveland Clinic Mentor HospitalComment on above:Order Comment: Specimen Type: BLOOD SPECIMENOrdering Facility: [facility] Address:[address] [place], [place] [address]Performed By: #### 73444-1 ####[facility] LABCLIA [id number] [place] [address] [place] AMERICACalcium [Mass/Vol]8.5 mg/dLNormal8.5-10.2ClevelCone HealthComment on above:Order Comment: Specimen Type: BLOOD SPECIMENOrdering Facility: [facility] Address:[address] [place], [place] [address]Performed By: #### 50513-5 ####[facility] LABCLIA [id number] [place] [address] [place] AMERICAChloride [Moles/Vol]106 mmol/UAwrphs27-963OhcgbnzqjMercy Hospital Comment on above:Order Comment: Specimen Type: BLOOD SPECIMENOrdering Facility: [facility] Address:[address] [place], [place] [address]Result Comment: Result rechecked.Performed By: #### 62517-0 ####[facility] LABCLIA [id number] [place] [address] [place] AMERICACO2 [Moles/Vol]27 mmol/VIuvcgf84-15ChnxqvbnuMercy Hospital Comment on above:Order Comment: Specimen Type: BLOOD SPECIMENOrdering Facility: [facility] Address:[address] [place], [place] [address]Result Comment: Corrected result: Previously reported as 29 mmol/L on 05/27/2024 at 1:22 PM EDT.Performed By: #### 47372-2 ####[facility] LABIA [id number] [place] [address] [place] [facility] Creatinine [Mass/Vol]1.59 mg/dLHigh0.73-1.22[facility] on above:Order Comment: Specimen Type: BLOOD SPECIMENOrdering Facility: [facility] Address:[address] [place], [place] [address]Result Comment: Corrected result: Previously reported as 1.61 mg/dL on 05/27/2024 at 1:22 PM EDT. Performed By: #### 07784-9 ####[facility]ITALIA [id number] [address] Creatinine and Glomerular filtration rate.predicted panel (S/P/Bld)44 mL/min/1.73m???Low>=60[facility] on above:Order Comment: Specimen Type: BLOOD SPECIMENOrdering Facility: [facility] Address:[address] [place], [place] [address]Result Comment: Estimated Glomerular Filtration Rate (eGFR) is calculated using the 2020 CKD-EPI creatinine equation. This equation utilizes serum creatinine, sex, and age as parameters. The creatinine assay has traceable calibration to isotope dilution-mass spectrometry. Refer to KDIGO guidelines for clinical interpretation. In patients with unstable renal function, e.g. those with acute kidney injury, the eGFR may not accurately reflect actual GFR.Performed By: #### 15119-2 ####[facility]ITALIA [id number] [address] STATES OF [facility] SYSTEMGlucose [Mass/Vol]78 mg/oQLlslyk68-57LbsdggubxMercy Health St[facility] on above:Order Comment: Specimen Type: BLOOD SPECIMENOrdering Facility: [facility] Address:[address] [place], [place] [address]Result Comment: The [place] Diabetes Association (ADA) provides guidance for cutoff [...] Standards of Medical Care in Diabetes 2016, [place] [employer]. Diabetes Care. 2016.39(Suppl 1). Corrected result: Previously reported as 85 mg/dL on 05/27/2024 at 1:22 PM EDT. Performed By: #### 76191-5 ####[facility] LABIA [id number] [place] [address] [place] Potassium [Moles/Vol]4.5 mmol/LNormal3.7-5.1CFulton County Health Center on above:Order Comment: Specimen Type: BLOOD SPECIMENOrdering Facility: [facility] Address:[address] [place], [place] [address]Performed By: #### 41288-6 ####[facility] [id number] [place] [address] [place] AMERICAProtein [Mass/Vol]6.6 g/dLNormal6.3-8.0[facility] on above:Order Comment: Specimen Type: BLOOD SPECIMENOrdering Facility: [facility] Address:[address] [place], [place] [address]Result Comment: Corrected result: Previously reported as 6.3 g/dL on 05/27/2024 at 1:22 PM EDT.Performed By: #### 50464-2 ####[facility] [id number] [place] [address] [place] AMERICASodium [Moles/Vol]145 mmol/CXcdy049-078ItfcoiccoMercy Health St[facility] on above:Order Comment: Specimen Type: BLOOD SPECIMENOrdering Facility: [facility] Address:[address] [place], [place] [address]Result Comment: Result rechecked. Performed By: #### 81997-8 ####[facility] LABCLIA [id number] [place] [address] [place] Urea nitrogen [Mass/Vol]15 mg/dLNormal9-24[facility] on above:Order Comment: Specimen Type: BLOOD SPECIMENOrdering Facility: [facility] Address:[address] [place], [place] [address]Result Comment: Corrected result: Previously reported as 17 mg/dL on 05/27/2024 at 1:22 PM EDT. Performed By: #### 46687-3 ####[facility] LABCLIA [id number] [address] OF [facility] IMMUNOFIXATION SCREEN, SERUMon 86-07-6839LIFIWPAJXRFXPC (MPA)Atypical restricted bands are present in the IgG and kappa regions. Consistent with IgG kappa monoclonal gammopathy.NormalMer[facility] Health [facility] on above:Order Comment: Specimen Type: BLOOD SPECIMENOrdering Facility: [facility] Address:[address] [place], [place] [address]Performed By: #### IFESC ####[facility] LABCLIA [id number] [place] [address] [place] AMERICAMPA RESULTM protein is present. AbnormalNo M protein is identified.[facility] on above: Order Comment: Specimen Type: BLOOD SPECIMENOrdering Facility: [facility] Address:[address] [place], [place] [address]Performed By: #### IFESC ####[facility] LABCLIA [id number] [address] STATES OF AMERICASTAFF REVIEW (MPA)Reviewed by Kishor AranaalCFulton County Health Center on above:Order Comment: Specimen Type: BLOOD SPECIMENOrdering Facility: [facility] Address:[address] [place], [place] [address]Performed By: #### IFESC ####[facility] LABCLIA [id number] [facility] [address] [address] [place] AMERICAIMMUNOGLOBULINS,IGG,IGA,IGMon 65-60-9208EfD [Mass/Vol]94 mg/qZGgeorf46-135UuzploghrMercy Health St[facility] on above:Order Comment: Specimen Type: BLOOD SPECIMENOrdering Facility: [facility] Address:[address] [place], [place] [address]Performed By: #### SERIMM ####[facility] LABCLIA [id number] [place] [address] [place] AMERICAIgG [Mass/Vol]1157 mg/uWPtmjsd598-7578OrlbypixaMercy Health St[facility] on above:Order Comment: Specimen Type: BLOOD SPECIMENOrdering Facility: [facility] Address:[address] [place], [place] [address]Performed By: #### SERIMM ####[facility] LABCLIA [id number] [facility] [id number] [place] [address] [place] AMERICAIgM [Mass/Vol]18 mg/fZYvo68-[address] [facility] on above:Order Comment: Specimen Type: BLOOD SPECIMENOrdering Facility: [facility] Address:[address] [place], [place] [address]Performed By: #### SERIMM ####[facility] LABIA [id number] [place] [address] [place] AMERICAKAPPA/DANIELS,FREE,SERon 81-74-6378Icqwsracxdjliu light chains.kappa.free (S) [Mass/Vol]40.4 mg/LHigh3.3-19.4CFulton County Health Center on above: Order Comment: Specimen Type: BLOOD SPECIMENOrdering Facility: [facility] Address:[address] [place], [place] [address]Result Comment: Rarely, increased serum free light chains levels may not be detected or accurately q uantified due to prozone phenomenon or in high viscosity samples using this immunoturbidimetric assay. Correlation with other laboratory results and clinical findings is recommended. The [place] Free Light Chain was performed using the Binding Site Optilite immunoturbidimetric method. Result obtained with different assay methods or kits cannot be used interchangeably.Performed By: #### KLFRS ####[facility] LABIA [id number] [place] [address] [place] AMERICAImmunoglobulin light chains.kappa/Immunoglobulin light chains.lambda (S) [Mass ratio]1.68Ofvygk0.26-1.65[facility] Comment on above:Order Comment: Specimen Type: BLOOD SPECIMENOrdering Facility: [facility] Address:[address] [place] [address] Performed By: #### KLFRS ####[facility] [id number] [address]Immunoglobulin light chains.lambda.free [Mass/Vol]25.0 mg/LNormal5.7-26.3CCleveland Clinic Mentor HospitalComment on above:Order Comment: Specimen Type: BLOOD SPECIMENOrdering Facility: [facility] Address:[address] [place], [place] [address]Result Comment: Rarely, increased serum free light chains [...] cannot be used interchangeably.Performed By: #### KLFRS ####[facility] LABIA [id number] [place] [address] [place] AMERICAPROTEIN ELECTROPHORESIS SERUM (P)on 84-52-6237Imdgaqf [Mass/Vol]3.79 g/dLNormal3.43-5.41[facility] on above: Order Comment: Specimen Type: BLOOD SPECIMENOrdering Facility: [facility] Address:[address] [place], [place] [address]Performed By: #### [id number] ####[facility] LABIA [id number] [place] [address] [place] AMERICAAlpha 1 globulin Elph [Mass/Vol]0.23 g/dLNormal0.18-0.43[facility] on above: Order Comment: Specimen Type: BLOOD SPECIMENOrdering Facility: [facility] Address:[address] [place], [place] [address]Performed By: #### [id number] ####[facility] LABIA [id number] [place] [address] [place] AMERICAAlpha 2 globulin Elph [Mass/Vol]0.59 g/dLNormal0.42-0.98[facility] on above: Order Comment: Specimen Type: BLOOD SPECIMENOrdering Facility: [facility] Address:[address] [place], [place] [address]Performed By: #### [id number] ####[facility] LABIA [id number] [place] [address] [place] AMERICABeta globulin Elph [Mass/Vol]0.61 g/dLNormal0.61-1.17[facility] on above: Order Comment: Specimen Type: BLOOD SPECIMENOrdering Facility: [facility] Address:[address] [place], [place] [address]Performed By: #### [id number] ####[facility] LABIA [id number] [place] [address] [place] AMERICAGamma globulin Elph [Mass/Vol]0.98 g/dLNormal0.53-1.51[facility] on above: Order Comment: Specimen Type: BLOOD SPECIMENOrdering Facility: [facility] Address:[address] [place], [place] [address]Performed By: #### [id number] ####[facility] LABIA [id number] [place] [address] [place] AMERICAINTERPRETATION COMMENT FOR PROTEIN ELECTROPHORESISSee separate immunofixation report for characterization of monoclonal gammopathy.NormalMercy Hospital Comment on above:Order Comment: Specimen Type: BLOOD SPECIMENOrdering Facility: [facility] Address:[address] [place] [address] Performed By: #### [id number] ####[facility] LABIA [id number] [place] [address] [place] M-PROTEIN LOCATIONGamma Fraction 1NormalMercy HospitalComment on above:Order Comment: Specimen Type: BLOOD SPECIMENOrdering Facility: [facility] Address:[address] [place], [place] [address]Performed By: #### [id number] ####[facility] LABIA [id number] [place] [address] [place] AMERICAProtein Fractions [Interp]An M protein is identified on protein electrophoresis.AbnormalNo definitive M protein is identified on protein electrophoresis.Mercy HospitalComment on above:Order Comment: Specimen Type: BLOOD SPECIMENOrdering Facility: [facility] Address:[address] [place], [place] [address]Performed By: #### [id number] ####[facility] LABIA [id number] [place] [address] [place] Protein.monoclonal Elph [Mass/Vol]0.67 g/dLHigh<=0.00[facility] Comment on above:Order Comment: Specimen Type: BLOOD SPECIMENOrdering Facility: [facility] Address:[address] [place] [address] Performed By: #### [id number] ####[facility] LABIA [id number] [place] [address] [place] SPE STAFF REVIEWReviewed by Endy AranaCleveland Clinic Mentor Hospital Comment on above:Order Comment: Specimen Type: BLOOD SPECIMENOrdering Facility: [facility] Address:[address] [place] [address] Performed By: #### [id number] ####[facility] LABCLIA [id number] [facility]ITALK [id number] STATES OF [place] Prot SerPl-mCncon 22-23-1692Cumwtcz [Mass/Vol]6.2 g/dLLow6.3-8.0Mercy HospitalComment on above:Order Comment: Specimen Type: BLOOD SPECIMENOrdering Facility: [facility] Address:[address] [place], [place] [address]Performed By: #### 2885-2 ####[facility] LABCLIA [id number] [facility] HOSPITALEREJYELEJDM75STISGHYRC[address] OF [place] CNPVangie 13-48-8820YUOUHgxwkqgtc (HEMTSA) ZACH MANUEL ([id number]) 1945 M Date Time Provider Department 05/20/24 [...] Fully Assessed Reason for Visit: Lab Orders [0208] Primary Visit Diagnosis:Multiple myeloma not having achieved remission (HCC) [C90.00] Order(s):COMPREHENSIVE METABOLIC PANEL [SQCMP] Order #: [id number] FUTURE COMPLETE BLOOD COUNT AND DIFFERENTIAL [SQCBCDIF] Order #: [id number] FUTURE MONOCLONAL PROTEIN, SERUM (BLOOD) [SQSERMPA] Order #: [id number] FUTURE PROTEIN ELECTROPHORESIS SERUM W/INTERP [SQSEPG] Order #: [id number] FUTURE Prescriptions as of 05/20/2024 - lenalidomide [...] Type 2 diabetes mellitus without complication (*10/20/2015 [facility] current use of systemic steroids [Z79*10/20/2015 Left inguinal hernia [K40.90] 10/20/2015 Former smoker [Z87.891] 10/20/2015 Elevated prostate specific antigen (PSA) [R97.2*03/19/2020 Stage 3 chronic kidney disease, unspecified whe*03/06/2023 Encounter Status:Closed by IRMA TALAVERA on 05/20/24NoWayne HospitalCNPNon 10-87-1683ANQESvzztlnpk (HEMASA) DOMITILAZACH ([id number]) 1945 M Date Time Provider Department 02/29/24 [...] Type 2 diabetes mellitus without complication (*10/20/2015 [facility] current use of systemic steroids [Z79*10/20/2015 Left inguinal hernia [K40.90] 10/20/2015 Former smoker [Z87.891] 10/20/2015 Elevated prostate specific antigen (PSA) [R97.2*03/19/2020 Stage 3 chronic kidney disease, unspecified whe*03/06/2023 Encounter Status:Closed by JUAN FERGUSON on 02/29/24NormalCSelect Medical [facility] [place] W Auto Differential panel (Bld)on 64-56-5745Wairmhhnc (Bld) [#/Vol] 0.09 10*3/uLNormal<0.11CFulton County Health Center on above:Order Comment: Specimen Type: BLOOD SPECIMENOrdering Facility: [facility] Address:[address] [place], [place] [address]Qqxuncezt By: #### 94437-9 ####[facility] LABCLIA [id number] [place], [place] [address]Neqcqbowy/100 WBC (Bld)1.4 %NormalMercy Health St[facility] on above:Order Comment: Specimen Type: BLOOD SPECIMENOrdering Facility: [facility] Address:[address] [place], [place] [address]Performed By: #### 87633-3 ####[facility] LABCLIA [id number] [place], [place] [address]Hzamckmfvvov cell count method Nom (Bld)AutoNormalClevelMorrow County Hospital on above:Order Comment: Specimen Type: BLOOD SPECIMENOrdering Facility: [facility] Address:[address] [place], [place] [address]Performed By: #### 25748-2 ####[facility] LABCLIA [id number] [place], [place] [address]Wzplufwneyx (Bld) [#/Vol]0.44 10*3/uLNormal<0.46[facility] on above:Order Comment: Specimen Type: BLOOD SPECIMENOrdering Facility: [facility] Address:[address] [place], [place] [address]Performed By: #### 09152-1 ####[facility] LABIA [id number] [place], [place] [address]Ckwcnrqiyhk/100 WBC (Bld)6.6 %NormalMercy Health St[facility] on above:Order Comment: Specimen Type: BLOOD SPECIMENOrdering Facility: [facility] Address:[address] [place], [place] [address]Performed By: #### 10702-7 ####[facility] LABIA [id number] [place], [place] [address]Jnofmrbfywa distribution width (RBC) [Ratio]15.4 %High 11.5-15.0[facility] on above:Order Comment: Specimen Type: BLOOD SPECIMENOrdering Facility: [facility] Address:[address] [place], [place] [address]Performed By: #### 45709-1 ####[facility] LABCLIA [id number] [place] [address] Hematocrit (Bld) [Volume fraction]38.0 %Low39.0-51.0[facility] Comment on above:Order Comment: Specimen Type: BLOOD SPECIMENOrdering Facility: [facility] Address:[address] [place] [address] Performed By: #### 43343-7 ####[facility] LABIA [id number] [place], [place] [address]Twonxpdxhu (Bld) [Mass/Vol]12.9 g/dLLow13.0-17.0[facility] on above:Order Comment: Specimen Type: BLOOD SPECIMENOrdering Facility: [facility] Address:[address] [place], [place] [address]Performed By: #### 40547-7 ####[facility] LABIA [id number] [place], [place] [address]Ekeouwmq granulocytes (Bld) [#/Vol]0.04 10*3/uLNormal <0.10[facility] on above:Order Comment: Specimen Type: BLOOD SPECIMENOrdering Facility: [facility] Address:[address] [place], [place] [address]Performed By: #### 54391-8 ####[facility] LABIA [id number] [place], [place] [address]Rdejygqc granulocytes/100 WBC (Bld)0.6 %NormalMercy Health St[facility] on above: Order Comment: Specimen Type: BLOOD SPECIMENOrdering Facility: [facility] Address:[address] [place], [place] [address]Performed By: #### 86824- 8 ####[facility] LABIA [id number] [place], [place] [address]Uukjqeflbtg (Bld) [#/Vol]1.24 10*3/uLNormal1.00-4.[address] on above:Order Comment: Specimen Type: BLOOD SPECIMENOrdering Facility: [facility] Address:[address] [place], [place] [address]Performed By: #### 30887-0 ####[facility] LABCLIA [id number] [place], [place] [address]Nahyzawxgwx/100 WBC (Bld)18.6 %NormalMercy Health [facility] on above:Order Comment: Specimen Type: BLOOD SPECIMENOrdering Facility: [facility] Address:[address] [place], [place] [address]Performed By: #### [id number] ####[facility] LABCLIA [id number] [place], [place] [address]ZWQ (RBC) [Entitic mass]35.5 ysAkpq46.0-34.0[facility] on above:Order Comment: Specimen Type: BLOOD SPECIMENOrdering Facility: [facility] Address:[address] [address] [place], [place] [address]Performed By: #### 90936-2 ####[facility] LABCLIA [id number] [place], [place] [address]WADG (RBC) [Mass/Vol]33.9 g/gSSsuvag22.5-36.0[facility] on above: Order Comment: Specimen Type: BLOOD SPECIMENOrdering Facility: [facility] Address:[address] [place], [place] [address]Performed By: #### 59665- 8 ####[facility] LABCLIA [id number] [place], [place] [address]CEH (RBC) [Entitic vol]104.7 mRPvxc02.0-100.0[facility] on above:Order Comment: Specimen Type: BLOOD SPECIMENOrdering Facility: [facility] Address:[address] [place], [place] [address]Performed By: #### 01002-4 ####[facility] LABCLIA [id number] [place], [place] [address]Jaoiaifyt (Bld) [#/Vol]0.88 10*3/uLHigh<0.87[facility] on above:Order Comment: Specimen Type: BLOOD SPECIMENOrdering Facility: [facility] Address:[address] [place], [place] [address]Performed By: #### 16457- 8 ####[facility] LABCLIA [id number] [place], [place] [address]Kcsodphlf/100 WBC (Bld)13.2 %NormalMercy Health St. [facility] on above:Order Comment: Specimen Type: BLOOD SPECIMENOrdering Facility: [facility] Address:[address] [place], [place] [address]Performed By: #### 26313-0 ####[facility]ENTERIA [id number] [place], [place] [address]Tofykuydshi (Bld) [#/Vol]3.96 10*3/uLNormal1.45-7.50[facility] on above:Order Comment: Specimen Type: BLOOD SPECIMENOrdering Facility: [facility] Address:[address] [place], [place] [address]Performed By: #### 08541-9 ####[facility] LABIA [id number] [place], [place] [address]Ktcszpgcrpr/100 WBC (Bld)59.6 %NormalMercy Health St. [facility] on above:Order Comment: Specimen Type: BLOOD SPECIMENOrdering Facility: [facility] Address:[address] [place], [place] [address]Performed By: #### 58048-4 ####[facility] LABIA [id number] [place], [place] [address]Ctywutdhy RBC (Bld) [#/Vol] 10*3/uLNormal<0.01[facility] on above:Order Comment: Specimen Type: BLOOD SPECIMENOrdering Facility: [facility] Address:[address] [place], [place] [address]Performed By: #### 15737-1 ####[facility] LABCLIA [id number] [place], [place] [address]Eyohdmqhh RBC/100 WBC (Bld) [Ratio]0.0 /[address] [facility] on above:Order Comment: Specimen Type: BLOOD SPECIMENOrdering Facility: [facility] Address:[address] [place], [place] [address]Performed By: #### 03872-1 ####[facility] LABCLIA [id number] [place], [place] [address]Ypldkzqr mean volume (Bld) [Entitic vol]10.6 fLNormal9.0-12.7CFulton County Health Center on above:Order Comment: Specimen Type: BLOOD SPECIMENOrdering Facility: [facility] Address:[address] [place] [address] Performed By: #### 57931-6 ####[facility] LABCLIA [id number] [place], [place] [address]Ottchvuuj (Bld) [#/Vol]203 10*3/pPOdclbh376-766PvtxzootyMercy Health St. [facility] on above:Order Comment: Specimen Type: BLOOD SPECIMENOrdering Facility: [facility] Address:[address] [place], [place] [address]Performed By: #### 69945-3 ####[facility] LABCLIA [id number] [place], [place] [address]OWO (Bld) [#/Vol]3.63 10*6/uLLow4.20-6.00[facility] on above:Order Comment: Specimen Type: BLOOD SPECIMENOrdering Facility: [facility] Address:[address] [place], [place] [address]Performed By: #### 14732-6 ####[facility] LABCLIA [id number] [place], [place] [address]CWU (Bld) [#/Vol]6.65 10*3/uL Normal3.70-11.00[facility] on above:Order Comment: Specimen Type: BLOOD SPECIMENOrdering Facility: [facility] Address:[address] [place], [place] [address]Kbxuoacuz By: #### 39801-0 ####ANTHONYRADHAFARZANA [facility] LABCLIA [id number] [place], [place] [address]NGRJDRja [id number] (SP) Office (HEMASA) ZACH MANUEL ([id number]) 1945 M Date Time Provider Department 02/26/24 [...] mellitus (HCC) Hyperlipidemia Monoclonal gammopathy 11/2002 IgG [place] Multiple myeloma (HCC) 2002 Ulcerative colitis (HCC) [...] right mid posterolateral (more content not included)...Normal [facility] HospitalComprehensive metabolic 2000 panelon 79-57-0544Ubvgzvx [Mass/Vol]3.9 g/dLNormal3.9-4.9CFulton County Health Center on above:Order Comment: Specimen Type: BLOOD SPECIMENOrdering Facility: [facility] Address:[address] [place], [place] [address]GEOVANNI [place], [place] [address]Rowsdmbht By: #### 20551- 8 ####[facility] LABCLIA [id number] [place], [place] [address]OXB [Catalytic activity/Vol]78 U/HWbeudt72-724TawteswozMercy Health St. [facility] on above:Order Comment: Specimen Type: BLOOD SPECIMENOrdering Facility: [facility] Address:[address] [place], [place] [address]Performed By: #### 58662-4 ####[facility] LABCLIA [id number] [place], [place] [address]SKF [Catalytic activity/Vol]8 U/YLpl76-27JcurbsslgMercy Health St. [facility] on above:Order Comment: Specimen Type: BLOOD SPECIMENOrdering Facility: [facility] Address:[address] [place], [place] [address]Performed By: #### 64952- 8 ####[facility] LABCLIA [id number] [facility] [place]THA [place], [place] [address]Nvhaz gap [Moles/Vol]6 mmol/LLow8-15[facility] on above:Order Comment: Specimen Type: BLOOD SPECIMENOrdering Facility: [facility] Address:[address] [place], [place] [address]Performed By: #### 86085-5 ####[facility] LABCLIA [id number] [place], [place] [address]TBH [Catalytic activity/Vol]13 U/ERox89-36OsvbfudanMercy Health St. [facility] on above:Order Comment: Specimen Type: BLOOD SPECIMENOrdering Facility: [facility] Address:[address] [place], [place] [address]Performed By: #### 70240-7 ####[facility] LABCLIA [id number] [facility] HOSPITALCRUZITOBANNER GATEW[facility] [place] [address] Bilirubin [Mass/Vol]0.8 mg/dLNormal0.2-1.3CFulton County Health Center on above:Order Comment: Specimen Type: BLOOD SPECIMENOrdering Facility: [facility] Address:[address] [place], [place] [address]Performed By: #### 86546-7 ####[facility] LABCLIA [id number] [place], [place] [address]Kdhlkfv [Mass/Vol]8.9 mg/dLNormal8.5-10.2CFulton County Health Center on above:Order Comment: Specimen Type: BLOOD SPECIMENOrdering Facility: [facility] Address:[address] [place], [place] [address]Performed By: #### 12204-5 ####[facility] LABCLIA [id number] [place], [place] [address]Dhyyqapw [Moles/Vol]103 mmol/LFubbel03-338LhjfvpfhjMercy Health St. [facility] on above: Order Comment: Specimen Type: BLOOD SPECIMENOrdering Facility: [facility] Address:[address] [place], [place] [address]Performed By: #### 94844- 8 ####[facility] LABCLIA [id number] [place], [place] [address]EG5 [Moles/Vol]30 mmol/QRlwtqi86-74GuzparidbMercy Health St. [facility] on above:Order Comment: Specimen Type: BLOOD SPECIMENOrdering Facility: [facility] Address:[address] [place], [place] [address]Performed By: #### 57410-8 ####[facility] LABCLIA [id number] [place], [place] [address]Yhdustqglk [Mass/Vol]1.70 mg/dL High0.73-1.22[facility] on above:Order Comment: Specimen Type: BLOOD SPECIMENOrdering Facility: [facility] Address:[address] [place], [place] [address]Performed By: #### 50384-9 ####[facility] LABCLIA [id number] [place] [address] Creatinine and Glomerular filtration rate.predicted panel (S/P/Bld)41 mL/min/1.73m???Low>=60[facility] on above:Order Comment: Specimen Type: BLOOD SPECIMENOrdering Facility: [facility] Address:[address] [place], [place] [address]Result Comment: Estimated Glomerular Filtration Rate (eGFR) is calculated using the 2020 CKD-EPI creatinine equation. This equation utilizes serum creatinine, sex, and age as parameters. The creatinine assay has traceable calibration to isotope dilution-mass spectrometry. Refer to KDIGO guidelines for clinical interpretation. In patients with unstable renal function, e.g. those with acute kidney injury, the eGFR may not accurately reflect actual GFR.Performed By: #### 02762-5 ####[facility] LABIA [id number] [place] [address] Glucose [Mass/Vol]175 mg/lJCkka42-94BewhrhlbfMercy Health St. [facility] on above: Order Comment: Specimen Type: BLOOD SPECIMENOrdering Facility: [facility] Address:[address] [place], [place] [address]Result Comment: The [place] Diabetes Association (ADA) provides guidance for cutoff [...] Standards of Medical Care in Diabetes 2016, [place] [employer]. Diabetes Care. 2016.39(Suppl 1).Performed By: #### 85235-2 ####[facility] LABCLIA [id number] [place], [place] [address]Tivdfmdlj [Moles/Vol]4.8 mmol/LNormal3.7-5.1CFulton County Health Center on above:Order Comment: Specimen Type: BLOOD SPECIMENOrdering Facility: [facility] Address:[address] [address]Performed By: #### 83388-0 ####[facility] LABCLIA [id number] [place], [place] [address]Ncojqhx [Mass/Vol]6.7 g/dLNormal6.3-8.0[facility] on above:Order Comment: Specimen Type: BLOOD SPECIMENOrdering Facility: [facility] Address:[address] [place], [place] [address]Performed By: #### 98747- 8 ####[facility] LABCLIA [id number] [place], [place] [address]Krqgcq [Moles/Vol]139 mmol/CIuczbz357-084GldatdnrxMercy Health St. [facility] on above:Order Comment: Specimen Type: BLOOD SPECIMENOrdering Facility: [facility] Address:[address] [place], [place] [address]Performed By: #### 83372-5 ####[facility] LABCLIA [id number] [place], [place] [address]Kytv nitrogen [Mass/Vol]23 mg/dLNormal9-24[facility] on above:Order Comment: Specimen Type: BLOOD SPECIMENOrdering Facility: [facility] Address:[address] [place], [place] [address]Performed By: #### 73711-5 ####[facility] LABCLIA [id number] [place], [place] [address]PDOFGUJXWYWHDC SCREEN, SERUMon 59-77-0572UYCQLBBSCBQELG (MPA)Atypical restricted bands are present in the IgG and kappa regions. Consistent with IgG kappa monoclonal gammopathy.NormalMercy Hospital Comment on above:Order Comment: Specimen Type: BLOOD SPECIMENOrdering Facility: [facility] Address:[address] [place] [address] Performed By: #### IFESC ####[facility] LABCLIA [id number] [facility] [place] [address] [place] AMERICAMPA RESULTM protein is present.AbnormalNo M protein is identified.[facility] Comment on above:Order Comment: Specimen Type: BLOOD SPECIMENOrdering Facility: [facility] Address:[address] [place] [address] Performed By: #### IFESC ####[facility] LABCLIA [id number] [place] [address] [place] AMERICASTAFF REVIEW ([facility])Reviewed by Dr. Joshua SchumacherFulton County Health Center on above:Order Comment: Specimen Type: BLOOD SPECIMENOrdering Facility: [facility] Address:[address] [place], [place] [address]Performed By: #### IFESC ####[facility] LABCLIA [id number] [place] [address] [place] AMERICAIMMUNOGLOBULINS,IGG,IGA,IGMon 92-58-1840GcU [Mass/Vol]96 mg/iTYyjhdm02-735UdidkujzcMercy Health St. [facility] on above:Order Comment: Specimen Type: BLOOD SPECIMENOrdering Facility: [facility] Address:[address] [place], [place] [address]Performed By: #### SERIMM ####[facility] LABCLIA [id number] [place] [address] [place] AMERICAIgG [Mass/Vol]1109 mg/dZZjlgte681-4833NugcqqphnMercy Health St. [facility] on above:Order Comment: Specimen Type: BLOOD SPECIMENOrdering Facility: [facility] Address:[address] [place], [place] [address]Performed By: #### SERIMM ####[facility] LABCLIA [id number] [place] [address] [place] AMERICAIgM [Mass/Vol]17 mg/uPXuw18-[address] [facility] on above:Order Comment: Specimen Type: BLOOD SPECIMENOrdering Facility: [facility] Address:[address] [place], [place] [address]Performed By: #### SERIMM ####[facility] LABCLIA [id number] [place] [address] [place] AMERICAKAPPA/DANIELS,FREE,SERon 05-88-0007Mqxhsveuqvkhgs light chains.kappa.free (S) [Mass/Vol]40.3 mg/LHigh3.3-19.4CFulton County Health Center on above: Order Comment: Specimen Type: BLOOD SPECIMEN [facility] Address: [address] [place], [place] [address]Result Comment: Rarely, increased serum free light chains levels may not be detected or accurately quantified due to prozone phenomenon or in high viscosity samples using this immunoturbidimetric assay. Correlation with other laboratory results and clinical findings is recommended. The [place] Free Light Chain was performed using the Binding Site Optilite immunoturbidimetric method. Result obtained with different assay methods or kits cannot be used interchangeably.Performed By: #### KLFRS #### [facility] CLIA [id number] [address] [place] [address] [place] AMERICAImmunoglobulin light chains.kappa/Immunoglobulin light chains.lambda (S) [Mass ratio]1.57Normal 0.26-1.65[facility] on above:Order Comment: Specimen Type: BLOOD SPECIMEN [facility] Address: [address] [place], [place] [address]Performed By: #### KLFRS #### [facility] CLIA [id number] [address] [place] [address] [place] AMERICAImmunoglobulin light chains.lambda.free [Mass/Vol]25.6 mg/LNormal5.7-26.3CCleveland [facility] Comment on above:Order Comment: Specimen Type: BLOOD SPECIMEN [facility] Address: [address] [place], [place] [address]Result Comment: Rarely, increased serum free light chains [...] be used interchangeably.Performed By: #### KLFRS #### [facility] CLIA [id number] [place] [address] [place] [facility]ALTH SYSTEMPROTEIN ELECTROPHORESIS SERUM WITH TOÑITO (P)on 68-67-4487Zbyufrc [Mass/Vol]4.08 g/dLNormal3.43-5.41 [facility] HospitalComharper university hospital on above:Order Comment: Specimen Type: BLOOD SPECIMENOrdering Facility: [facility] Address:[address] [place], [place] [address]Performed By: #### [id number] ####[facility] LABIA [id number] [place] [address] [place] AMERICAAlpha 1 globulin Elph [Mass/Vol]0.25 g/dLNormal0.18-0.43Mer[facility] HospitalComment on above:Order Comment: Specimen Type: BLOOD SPECIMENOrdering Facility: [facility] Address:[address] [place], [place] [address]Performed By: #### [id number] ####[facility] LABIA [id number] [place] [address] [place] Alpha 2 globulin Elph [Mass/Vol]0.67 g/dLNormal0.42-0.98[facility] on above:Order Comment: Specimen Type: BLOOD SPECIMENOrdering Facility: [facility] Address:[address] [place], [place] [address]Performed By: #### [id number] ####[facility] LABIA [id number] [place] [address] [place] Beta globulin Elph [Mass/Vol]0.65 g/dLNormal0.61-1.17[facility] Comment on above:Order Comment: Specimen Type: BLOOD SPECIMENOrdering Facility: [facility] Address:[address] [place] [address] Performed By: #### [id number] ####[facility] LABCLIA [id number] [place] [address] [place] COMMENT (SERUM PROT ELECTRO)Monoclonal Protein analysis (immunofixation) is not indicated.[facility] on above:Order Comment: Specimen Type: BLOOD SPECIMENOrdering Facility: [facility] Address:[address] [place], [place] [address]Performed By: #### [id number] ####[facility] LABCLIA [id number] [place] [address] [place] AMERICAGamma globulin Elph [Mass/Vol] 1.05 g/dLNormal0.53-1.51[facility] on above:Order Comment: Specimen Type: BLOOD SPECIMENOrdering Facility: [facility] Address:[address] [place], [place] [address]Performed By: #### [id number] ####[facility] LABIA [id number] [address] STATES OF AMERICAINTERPRETATION COMMENT FOR PROTEIN ELECTROPHORESISSee separate immunofixation report for characterization of monoclonal gammopathy.[facility] Comment on above:Order Comment: Specimen Type: BLOOD SPECIMENOrdering Facility: [facility] Address:[address] [place] [address] Performed By: #### [id number] ####[facility] LABCLIA [id number] [place] [address] [place] M-PROTEIN LOCATIONGamma Fraction 1NormalMercy Health St. [facility] on above:Order Comment: Specimen Type: BLOOD SPECIMENOrdering Facility: [facility] Address:[address] [place], [place] [address]Performed By: #### [id number] ####[facility] LABIA [id number] [place] [address] [place] AMERICAProtein Fractions [Interp]An M protein is identified on protein electrophoresis.AbnormalNo definitive M protein is identified on protein electrophoresis.[facility] on above:Order Comment: Specimen Type: BLOOD SPECIMENOrdering Facility: [facility] Address:[address] [place], [place] [address]Performed By: #### [id number] ####[facility] LABCLIA [id number] [place] [address] [place] Protein.monoclonal Elph [Mass/Vol]0.67 g/dLHigh<=0.00[facility] Comment on above:Order Comment: Specimen Type: BLOOD SPECIMENOrdering Facility: [facility] Address:[address] [place] [address] Performed By: #### [id number] ####[facility] LABIA [id number] [place] [address] [place] SPE STAFF REVIEWReviewed by Dr. Joshua White MDNormalCCleveland Clinic Ment[facility] Hospital Comment on above:Order Comment: Specimen Type: BLOOD SPECIMENOrdering Facility: [facility] Address:[address] [place] [address] Performed By: #### [id number] ####[facility] LABIA [id number] [place] [address] [place] Prot SerPl-mCncon 20-66-5234Poldezl [Mass/Vol]6.3 g/dLNormal6.3-8.0Mer[facility] HospitalComment on above:Order Comment: Specimen Type: BLOOD SPECIMENOrdering Facility: [facility] Address:[address] [place], [place] [address]Performed By: #### 2885-2 ####[facility] LABIA [id number] [place] [address] [place] AMERICABasic metabolic 2000 panelon 28-91-8017Kyqeq gap [Moles/Vol]9 mmol/L9 - 18 mmol/LCleveland ClinicCalcium [Mass/Vol]9.0 mg/dL8.5 - 10.2 mg/dLWatsonville ClinicChloride [Moles/Vol]102 mmol/L97 - 105 mmol/LCleveland ClinicCO2 [Moles/Vol]27 mmol/L22 - 30 mmol/LCleveland ClinicCreatinine [Mass/Vol]1.52 mg/dLHigh0.73 - 1.22 mg/dLMarion HospitalEstimated Glomerular Filtration Rate47 mL/min/1.73mLow>=60 mL/min/1.73mCleveland ClinicGlucose [Mass/Vol]253 mg/dLHigh 74 - 99 mg/dLMarion HospitalPotassium [Moles/Vol]4.5 mmol/L3.7 - 5.1 mmol/L Watsonville ClinicSodium [Moles/Vol]138 mmol/L136 - 144 mmol/LCleveland Melrose Area HospitalUrea nitrogen [Mass/Vol]29 mg/dLHigh9 - 24 mg/dLMarion HospitalCB W Auto Differential panel (Bld)on 06-46-4176Wfpkgbaeg (Bld) [#/Vol]0.05 10*3/uL<0.11 k/uLMarion HospitalBasophils/100 WBC (Bld)0.7 %Marion HospitalDifferential cell count method Nom (Bld)AutoCleveland Melrose Area HospitalEosinophils (Bld) [#/Vol]0.07 10*3/uL<0.46 k/uLMarion HospitalEosinophils/100 WBC (Bld)1.0 %[facility] Erythrocyte distribution width (RBC) [Ratio]14.0 %11.5 - 15.0 %[facility] Hematocrit (Bld) [Volume fraction]39.5 %39.0 - 51.0 %Marion HospitalHemoglobin (Bld) [Mass/Vol]13.7 g/dL13.0 - 17.0 g/dLMarion HospitalImmature granulocytes (Bld) [#/Vol]0.03 10*3/uL<0.10 k/uLMarion HospitalImmature granulocytes/100 WBC (Bld)0.4 %Marion HospitalLymphocytes (Bld) [#/Vol]0.82 10*3/uLLow1.00 - 4.00 k/uLMarion HospitalLymphocytes/100 WBC (Bld)11.7 %[facility] HospitalH (RBC) [Entitic mass]34.7 lzDnzt64.0 - 34.0 pgCleveland LifeCare Medical CenterHC (RBC) [Mass/Vol]34.7 g/dL30.5 - 36.0 g/dLMarion HospitalMCV (RBC) [Entitic vol]100.0 fL80.0 - 100.0 fLCleveland ClinicMonocytes (Bld) [#/Vol]1.05 10*3/uLHigh<0.87 k/uLMarion HospitalMonocytes/100 WBC (Bld)15.0 %Marion HospitalNeutrophils (Bld) [#/Vol]4.96 10*3/uL1.45 - 7.50 k/uLMarion HospitalNeutrophils/100 WBC (Bld)71.2 %Marion HospitalNucleated RBC (Bld) [#/Vol]<0.01 k/uLMarion HospitalNucleated RBC/100 WBC (Bld) [Ratio]0.0 /100 WBCMarion HospitalPlatelet mean volume (Bld) [Entitic vol]9.8 fL9.0 - 12.7 fLCleveland ClinicPlatelets (Bld) [#/Vol]207 10*3/uL150 - 400 k/uLMarion HospitalRBC (Bld) [#/Vol]3.95 10*6/uLLow4.20 - 6.00 m/uL Marion HospitalWBC (Bld) [#/Vol]6.98 10*3/uL3.70 - 11.00 k/uLMarion Hospital PSA, FREE AND TOTAL RATIOon 08-29-2022% Free PSA25.9 %NormalThe [facility] Medical CenterComment on above:Result Comment: The table [...] of men.Performed By: #### PSAFREE #### [facility] [address] [place] [address] Dr. Tigre Schafer specific Ag [Mass/Vol]4.4 ng/mLCritically high0.0-4.0The [facility] on above:Result Comment: [place] ECLIA methodology. . According to the [place] [employer], Serum PSA should decrease and [...] malignant disease.Performed By: #### PSAFREE #### [facility] [address] [place] [address] Dr. Tigre Peck, Free1.14 ng/mLNormalN/AThKettering Health HamiltonComharper university hospital on above:Result Comment: [place] ECLIA methodology.Performed By: #### PSAFREE #### [facility] [address] [place] [address] Dr. Tigre Peck, FREE AND TOTAL RATIOon 03-16-2022% Free PSA19.1 %NormalThe [facility] on above:Result Comment: The table below [...] of men.Performed By: #### A1C #### [facility] [address] [place] [address] Dr. Tigre Peck, Free1.03 ng/mLNormalN/AThKettering Health HamiltonComharper university hospital on above:Result Comment: [place] ECLIA methodology.Performed By: #### A1C #### [facility] [address] [place] [address] Dr. Tigre GantProstate specific Ag [Mass/Vol]5.4 ng/mLCritically high0.0-4.0[facility] on above:Result Comment: [place] ECLIA methodology. . According to the [employer], Serum PSA should decrease and [...] malignant disease.Performed By: #### A1C #### [facility] [address] [place] [address] Dr. Tigre GantCBC AUTO DIFFon [id number] #0.1 103/ulNormal0.0-0.1The [facility] on above:Performed By: #### CBC #### [facility] [address] [place] [address] Dr. Tigre GantBasophils/100 WBC (Bld)2.6 %Critically high0.2-2.0The [facility] CenterComment on above:Performed By: #### CBC #### [facility] [address] [place] [address] Dr. Landeros ChangEKatelyn #0.4 103/ulNormal0.0-0.7The [facility] Medical CenterComment on above: Performed By: #### CBC #### [facility] [address] [place] [address] Dr. Tigre Miguelosinophils/100 WBC (Bld)7.7 %Critically high0.9-7.0The [facility] on above:Performed By: #### CBC #### [facility] [address] [place] [address] Dr. Tigre Miguelrythrocyte distribution width (RBC) [Ratio]14.6 %Fnrqpn61.0-15.0 The [facility] on above:Performed By: #### CBC #### [facility] [address] [address] [address] Tigre GantHematocrit (Bld) [Volume fraction]39.0 %Critically low42.0-54.0 The [facility] CenterComment on above:Performed By: #### CBC #### [facility] [address] [address] [address] Tigre GantHemoglobin (Bld) [Mass/Vol]12.9 g/dLCritically low14.0-18.0The [facility] CenterComment on above:Performed By: #### CBC #### [facility] [address] [address] [address] Tigre GantIG #0.03 10e3/ulNormal0.00-0.03The [facility] CenterComment on above:Performed By: #### CBC #### [facility] [address] [place] [address] Dr. Tigre Gan %0.6 %Critically high0.0-0.5The [facility] CenterComment on above:Performed By: #### CBC #### [facility] [address] [address] [address] Tigre Pereira #1.0 103/ulCritically low1.2-3.8The [facility] Comment on above:Performed By: #### CBC #### [facility] [address] [place] [address] Dr. Tigre Corbinmphocytes/100 WBC (Bld)19.9 %Critically low20.5-60.0The [facility] CenterComment on above:Performed By: #### CBC #### [facility] [address] [address] [address] Tigre GantMANUAL DIFF REQNONormalThe [facility] CenterComment on above: Performed By: #### CBC #### [facility] [address] [address] [address] Tigre Zamudio (RBC) [Entitic mass]33.7 fdZdgnph56.9-34.0The [facility] CenterComment on above:Performed By: #### CBC #### [facility] [address] [place] [address] Dr. Tigre LynchHC (RBC) [Mass/Vol]33.1 g/cTZccmkp29.9-35.2The [facility] CenterComment on above:Performed By: #### CBC #### [facility] [address] [place] [address] Dr. Tigre LynchV (RBC) [Entitic vol]101.8 fLCritically high80.0-94.0The [facility] CenterComment on above:Performed By: #### CBC #### [facility] [address] [place] [address] Dr. Tigre Jenkins #0.7 103/ulNormal0.3-0.8The [facility] CenterComment on above:Performed By: #### CBC #### [facility] [address] [place] [address] Dr. Tigre Jeffersocytes/100 WBC (Bld)13.6 %Critically high1.7-12.0The [facility] CenterComment on above:Performed By: #### CBC #### [facility] [address] [place] [address] Dr. Tigre Purdy #2.7 103/ulNormal1.4-6.5The [facility] CenterComment on above:Performed By: #### CBC #### [facility] [address] [place] [address] Dr. Tigre Dickinsonutrophils/100 WBC (Bld)55.6 %Onvzkv75.0-75.0The [facility] CenterComment on above:Performed By: #### CBC #### [facility] [address] [place] [address] Dr. Tigre Araujolet mean volume (Bld) [Entitic vol]10.7 fLNormal9.5-13.5The [facility] CenterComment on above:Performed By: #### CBC #### [facility] [address] [place] [address] Dr. Tigre GantPLT209 103/kaIedkpv558-525Aea [facility] CenterComment on above: Performed By: #### CBC #### [facility] [address] [place] [address] Dr. Tigre GantRBC3.83 106/ulCritically low4.70-6.10The [facility] CenterComharper university hospital on above:Performed By: #### CBC #### [facility] [address] [place] [address] Dr. Tigre GantWBC4.9 103/ulNormal4.0-11.0The [facility] CenterComharper university hospital on above: Performed By: #### CBC #### [facility] [address] [place] [address] Dr. Tigre GantFREE T3on 39-96-7017GANY T32.60 pg/mlLNormal2.18-3.98The [facility] on above:Performed By: #### A1C #### [facility] [address] [place] [address] Dr. Tigre GantGLYCOHEMOGLOBIN A1Con [id number] RECOMMENDATIONSEE BELOWAdena Fayette Medical CenterComharper university hospital on above:Result Comment: ADA RECOMMENDED LIMIT 4.0 - 6.0 ADA THERAPEUTIC TARGET < 7.0 ACTION SUGGESTED > 7.0Performed By: #### A1C #### [facility] [address] [place] [address] Dr. Tigre GantGlucose [Mass/Vol]189 mg/dLNoTogus VA Medical Center on above:Performed By: #### A1C #### [facility] [address] [place] [address] Dr. Tigre GantHbA1c (Bld) [Mass fraction]8.2 %Critically high4.5-6.2The [facility] on above:Performed By: #### A1C #### [facility] [address] [place] [address] Dr. Tigre GantLIPID PROFILEon [id number]-HDL RATIO NORMSEE BELOWJ.W. Ruby Memorial HospitalComharper university hospital on above:Result Comment: 3.3 - 4.4 LOW RISK 4.4 - 7.1 AVERAGE RISK 7.1 - 11.0 MODERATE RISK >11.0 HIGH RISKPerformed By: #### CMP, TSH, LIPID, FT3, T4 #### [facility] [address] [address] [address] Tigre Macedoesterol [Mass/Vol]157 mg/dLNormal<=200[facility] Comment on above:Performed By: #### CMP, TSH, LIPID, FT3, T4 #### [facility] [address] [address] [address] Tigre Macedoesterol in HDL [Mass/Vol]62 mg/dLCritically jyoj19-98SjfTrumbull Regional Medical CenterComment on above:Performed By: #### CMP, TSH, LIPID, FT3, T4 #### [facility] [address] [place] [address] Dr. Tigre Fan in LDL [Mass/Vol]62.8 mg/dLNoParkview Health Bryan HospitalComment on above:Performed By: #### CMP, TSH, LIPID, FT3, T4 #### [facility] [address] [place] [address] Dr. Tigre Fan.total/Cholesterol in HDL [Mass ratio]2.5 {ratio} NormalTrumbull Regional Medical CenterComment on above:Performed By: #### CMP, TSH, LIPID, FT3, T4 #### [facility] [address] [place] [address] Dr. Tigre Watson NORMAL> or = 60 mg/dl - LOW CARDIOVASCULAR RISK <40 mg/dl - HIGH CARDIOVASCULAR RISKJ.W. Ruby Memorial HospitalComment on above:Performed By: #### CMP, TSH, LIPID, FT3, T4 #### [facility] [address] [place] [address] Dr. Tigre Morse CALC NORMALSEE BELOWJ.W. Ruby Memorial HospitalComment on above:Result Comment: <100 mg/dl OPTIMAL 100 - 129 mg/dl NEAR OR ABOVE OPTIMAL 130 - 159 mg/dl BORDERLINE HIGH 160 - 189 mg/dl HIGH >190 mg/dl VERY HIGH Performed By: #### CMP, TSH, LIPID, FT3, T4 #### [facility] [address] [place], [place] [id number] Dr. Tigre GantTriglyceride [Mass/Vol]161 mg/dLCritically high<=150The [facility] Hospitalment on above:Performed By: #### CMP, TSH, LIPID, FT3, T4 #### [facility] [address] [place] [address] Dr. Tigre GantVLDL CALC32.2 mg/dLNormalThe [facility] CenterComment on above: Performed By: #### CMP, TSH, LIPID, FT3, T4 #### [facility] [address] [place] [address] Dr. Tigre GantPROF 14(COMP METB)on [id number] [Mass/Vol]3.5 g/dLNormal 3.4-5.0The [facility] CenterComment on above:Performed By: #### CMP, TSH, LIPID, FT3, T4 #### [facility] [address] [place] [address] Dr. Tigre GantAlbumin/Globulin [Mass ratio]1.1 {ratio}NormalThe [facility] CenterComment on above:Performed By: #### CMP, TSH, LIPID, FT3, T4 #### [facility] [address] [place] [address] Dr. Tigre Maddox [Catalytic activity/Vol]67 U/IGwrtio65-411Ddp [facility] CenterComment on above:Performed By: #### CMP, TSH, LIPID, FT3, T4 #### [facility] [address] [place] [address] Dr. iTgre Dooley [Catalytic activity/Vol]17 U/SAqmece47-05Dwb [facility] CenterComment on above:Performed By: #### CMP, TSH, LIPID, FT3, T4 #### [facility] [address] [place] [address] Dr. Tigre Maldonado gap [Moles/Vol]14.6 mmol/LNormalThe [facility] on above:Performed By: #### CMP, TSH, LIPID, FT3, T4 #### [facility] [address] [place] [address] Dr. Yilan ChangAST [Catalytic activity/Vol]16 U/LUafpzf52-25Cil [facility] CenterComment on above:Performed By: #### CMP, TSH, LIPID, FT3, T4 #### [facility] [address] [place] [address] Dr. Tigre GantBilirubin [Mass/Vol]1.2 mg/dLCritically high0.2-1.0The [facility] CenterComment on above:Performed By: #### CMP, TSH, LIPID, FT3, T4 #### [facility] [address] [place] [address] Dr. Tigre GantCalcium [Mass/Vol]7.8 mg/dLCritically low8.5-10.1The [facility] CenterComment on above:Performed By: #### CMP, TSH, LIPID, FT3, T4 #### [facility] [address] [place] [address] Dr. Tigre GantChloride [Moles/Vol]106 mmol/JKjgoms00-357Aku [facility] Comment on above:Performed By: #### CMP, TSH, LIPID, FT3, T4 #### [facility] [address] [place] [address] Dr. Tigre GantCO2 [Moles/Vol]26.5 mmol/HAuziem83.0-32.0The [facility] Comment on above:Performed By: #### CMP, TSH, LIPID, FT3, T4 #### [facility] [address] [place] [address] Dr. Tigre GantCreatinine [Mass/Vol]1.48 mg/dLCritically high0.70-1.30The [facility] on above:Performed By: #### CMP, TSH, LIPID, FT3, T4 #### [facility] [address] [place] [address] Dr. Landeros ChangEGFR-AF PAXNZBIQ46 mL/min/1.89k6Mceljzwiup low>=60The [facility] CenterComment on above:Performed By: #### CMP, TSH, LIPID, FT3, T4 #### [facility] [address] [place] [address] Dr. Tigre MiguelGFR-NON AF BBZYVCMF20 mL/min/1.15g2Bldxgrpehp low>=60The [facility] CenterComment on above:Performed By: #### CMP, TSH, LIPID, FT3, T4 #### [facility] [address] [place] [address] Dr. Tigre GantGlobulin (S) [Mass/Vol]3.3 g/dLNormalThe [facility] CenterComment on above:Performed By: #### CMP, TSH, LIPID, FT3, T4 #### [facility] [address] [place] [address] Dr. Tigre GantGlucose [Mass/Vol]99 mg/cCHmtdnf24-868SwkTrumbull Regional Medical Center Comment on above:Performed By: #### CMP, TSH, LIPID, FT3, T4 #### [facility] [address] [place] [address] Dr. Tigre GantPotassium [Moles/Vol]4.1 mmol/LNormal3.5-5.1The [facility] Comment on above:Performed By: #### CMP, TSH, LIPID, FT3, T4 #### [facility] [address] [place] [address] Dr. Tigre GantProtein [Mass/Vol]6.8 g/dLNormal6.4-8.2The [facility] Comment on above:Performed By: #### CMP, TSH, LIPID, FT3, T4 #### [facility] [address] [place] [address] Dr. Tigre GantSodium [Moles/Vol]143 mmol/NZohbze496-409Sax [facility] Comment on above:Performed By: #### CMP, TSH, LIPID, FT3, T4 #### [facility] [address] [place] [address] Dr. Tigre GantUrea nitrogen [Mass/Vol]17.0 mg/dLNormal7.0-18.0The [facility] CenterComment on above:Performed By: #### CMP, TSH, LIPID, FT3, T4 #### [facility] [address] [place] [address] Dr. Tigre GantUrea nitrogen/Creatinine [Mass ratio]11.5 mg/mgNormalThe [facility] CenterComment on above:Performed By: #### CMP, TSH, LIPID, FT3, T4 #### [facility] [address] [place] [address] Dr. Tigre GantT4on 58-97-9459R8 [Mass/Vol]6.30 ug/dLNormal4.50-12.10The [facility] CenterComharper university hospital on above:Performed By: #### CMP, TSH, LIPID, FT3, T4 #### [facility] [address] [place] [address] Dr. Tigre GantTSHon 25-08-2601IBZ2.904 uIU/mLCritically high0.358-3.740The [facility] Hospitalment on above:Performed By: #### CMP, TSH, LIPID, FT3, T4 #### [facility] [address] [place] [address] Dr. Tigre LopezA, FREE AND TOTAL RATIOon 12-21-2021% Free PSA24.5 %NormalThe [facility] on above:Result Comment: The table below lists the probability of prostate cancer for men with non-suspicious RAHDA results and total PSA between 4 and [...] of men.Performed By: #### A1C #### [facility] [address] [place] [address] Dr. Tigre GantProstate specific Ag [Mass/Vol]4.2 ng/mLCritically high0.0-4.0The [facility] on above:Result Comment: [place] ECLIA methodology. . According to the [employer] [employer], Serum PSA should decrease and [...] malignant disease.Performed By: #### A1C #### [facility] [address] [place] [address] Dr. Tigre Peck, Free1.03 ng/mLNormalN/AThe [facility] CenterComment on above:Result Comment: [place] ECLIA methodology.Performed By: #### A1C #### [facility] [address] [place] [address] Dr. Tigre DangeloOSTRIDIUM DIFFICILE PCRon 09-13-2021 difficile Toxin Gene SHOSHANA NegativeNormalNegativeThe [facility] CenterComment on above:Performed By: #### A1C #### [facility] [address] [place] [address] Dr. Tigre Tan PANEL (PCR)on 13-34-8907Opeopihwyq F 40/41Not detectedNormal NOT DETECTEDThe [facility] CenterComment on above:Performed By: #### GIPANEL #### [facility] [address] [place] [address] Dr. Tigre GantAstrovirusNot detectedNormalNOT DETECTEDThe [facility] Comment on above:Performed By: #### GIPANEL #### [facility] [address] [place] [address] Dr. Tigre Deng. Diff toxin A/BNot detectedNormalNOT DETECTEDThe [facility] CenterComment on above:Performed By: #### GIPANEL #### [facility] [address] [place] [address] Dr. Tigre ReyespylobacterNot detectedNormalNOT DETECTEDThe [facility] Comment on above:Performed By: #### GIPANEL #### [facility] [address] [place] [address] Dr. Tigre GantCryptosporidiumNot detectedNormalNOT DETECTEDThe [facility] HospitalComment on above:Performed By: #### GIPANEL #### [facility] [address] [address] [address] Tigre Murphy. CayetanensisNot detectedNormalNOT DETECTEDThe [facility] CenterComment on above:Performed By: #### GIPANEL #### [facility] [address] [address] [address] Tigre Flor Coli T857Nad ApplicableNormalNot ApplicableThe [facility] CenterComment on above:Performed By: #### GIPANEL #### [facility] [address] [address] [address] Tigre Flor histolyticaNot detectedNormalNOT DETECTEDThe [facility] Comment on above:Performed By: #### GIPANEL #### [facility] [address] [address] [address] Tigre MiguelAECNot detectedNormalNOT DETECTEDThe [facility] CenterComment on above:Performed By: #### GIPANEL #### [facility] [address] [address] [address] Tigre MiguelIECNot detectedNormalNOT DETECTEDThe [facility] CenterComment on above:Performed By: #### GIPANEL #### [facility] [address] [address] [address] Tigre MiguelPECNot detectedNormalNOT DETECTEDThe [facility] CenterComment on above:Performed By: #### ARLINANEL #### [facility] [address] [address] [address] Tigre MiguelTECNot detectedNormalNOT DETECTEDThe [facility] CenterComment on above:Performed By: #### GIPANEL #### [facility] [address] [address] [address] Tigre Vale. LambliaNot detectedNormalNOT DETECTEDThe [facility] Comment on above:Performed By: #### GIPANEL #### [facility] [address] [address] [address] Tigre Virk CONTROLSPASSEDNormalThe [facility] CenterComment on above:Performed By: #### GIPANEL #### [facility] [address] [address] [address] Tigre Morton OLGA HEADERGI [facility] Comment on above:Performed By: #### MARYLUL #### [facility] [address] [address] [address] Tigre Suarez ECOLIGI PANEL DIARRHEAGENIC E.COLI / SHIGELLAJ.W. Ruby Memorial HospitalComment on above:Performed By: #### BOBBY #### [facility] [address] [address] [address] Tigre Suarze INFOSEE [facility]pelier HospitalComment on above: Result Comment: EAEC- Enteroaggregative E. Coli EPEC- Enteropathogenic E. Coli ETEC- Enterotoxigenic E. Coli lt/st STEC- Shigella-like toxin-producing E. Coli stx1/stx2 EIEC- Shigella/Enteroinvasive E. ColiPerformed By: #### BOBBY #### [facility] [address] [place] [address] Dr. Tigre Suarez PARASITESGI [facility] PARASITESJ.W. Ruby Memorial Hospital Comment on above:Performed By: #### BOBBY #### [facility] [address] [place] [address] Dr. Tigre Suarez VIRUSGI [facility] HospitalComment on above:Performed By: #### BOBBY #### [facility] [address] [address] [address] Tigre Harprovirus GI/GIINot detectedNormalNOT DETECTEDThe [facility] CenterComment on above:Performed By: #### BOBBY #### [facility] [address] [address] [address] Tigre Sanchez. ShigelloidesNot detectedNormalNOT DETECTEDThe [facility] CenterComment on above:Performed By: #### BOBBY #### [facility] [address] [address] [address] Tigre GantRotavirus ANot detectedNormalNOT DETECTEDThe [facility] Comment on above:Performed By: #### GIPANEL #### [facility] [address] [address] [address] Tigre GantSalmonellaNot detectedNormalNOT DETECTEDThe [facility] Comment on above:Performed By: #### GIPANEL #### [facility] [address] [address] [address] Tigre GantSapovirusNot detectedNormalNOT DETECTEDThe [facility] Comment on above:Performed By: #### GIPANEL #### [facility] [address] [address] [address] Tigre GantSTECNot detectedNormalNOT DETECTEDThe [facility] CenterComment on above:Performed By: #### GIPANEL #### [facility] [address] [address] [address] Tigre BellbrioNot detectedNormalNOT DETECTEDThe [facility] CenterComment on above:Performed By: #### GIPANEL #### [facility] [address] [address] [address] Tigre Pratherio CholeraNot detectedNormalNOT DETECTEDTrumbull Regional Medical Center Comment on above:Performed By: #### GIPANEL #### [facility] [address] [address] [address] Tigre Morton. EnterocoliticaNot detectedNormalNOT DETECTEDThe [facility] CenterComment on above:Performed By: #### GIPANEL #### [facility] [address] [address] [address] Tigre GantXR lumbar spine 6V w bendingon 12-15-6273TP lumbar spine 6V w bendingST. [facility] [place] [address] [place] [address] XRay Report Signed Patient: Zach Manuel MR#: [id number] 9 : 1945 Acct:[id number] Age/Sex: 76 / M ADM Date: 05/05/21 Loc: XD [facility]: [facility]: Kosta Harper MD Ordering [...] Kumar Jr., M.D.05/05/2021 2:07 PM Dictation Location: [place] [address] Transcribed By: [facility] 05/05/21 1407 Dictated By: Carson Kumar Jr, MD 05/05/21 1355 Signed By: 05/05/21 1403[facility] HospitalFECHOCTAW [facility] RIGHT 2 [facility] [id number] RIGHT 2 [facility] Department of Radiology [address] [place] [id number] Patient Name: ZACH MANUEL : 1945 [...] hip Electronically signed by:Jazmín Hernandez. Transcribed by: [email or web address], User Resident: Electronically Signed by: JAZMÍN HERNANDEZ @ 05/16/2019 03:38 [facility] HospitalComment on above:Order Comment: , , , Ordering Provider - ZHENG SCOTT PA-C , FEMUR RIGHT 2 VWSon [id number] RIGHT 2 [facility]UniM[facility] Department of Radiology [address] [place] [address] Patient Name: ZACH MANUEL : [...] healing. Electronically signed by:Jazmín Hernandez. Transcribed by: [email or web address], User Resident: Electronically Signed by: JAZMÍN HERNANDEZ @ 02/13/2019 05:05 [facility] HospitalComment on above:Order Comment: , , , Ordering Provider - ZHENG SCOTT PA-C , FEMUR RIGHT 2 [facility] [id number] RIGHT 2 [facility]ITALniM[facility] Department of Radiology [address] [place] [id number] Patient Name: ZACH MANUEL : 1945 Sex: M Age: Race: White Pt. Location: Patient Status: O Ordered Date: 01/09/2019 10:10:00 AM Completed Date: 01/09/2019 10:15 AM Requesting Provider: JACQUELINE CROSS Attending Provider: JACQUELINE CROSS Report Copy To: HANNA MATHIAS Signs & Symptoms: S72.21XD Displ subtrochnt fx r femur, subs for clos fx w routn heal I10 History: [place] Comments: , , , Ordering Provider - JACQUELINE CROSS PA-C , Exam: [facility]UR RIGHT 2 [facility] F[facility] RIGHT 2 VWS 01/09/2019 10:15 [...] reaction Electronically signed by:Soila Morris. Transcribed by: [email or web address], User Resident: Electronically Signed by: SOILA MORRIS @ 01/09/2019 12:25 [facility] HospitalComment on above:Order Comment: , , , Ordering Provider - JACQUELINE CROSS PA-C , FEMUR RIGHT 2 VWSon 12-10-2018 FEMUR RIGHT 2 [facility] Department of Radiology [address] [place] [id number] Patient Name: ZACH MANUEL : 1945 [...] fracture Electronically signed by:Soila Morris. Transcribed by: [email or web address], User Resident: Electronically Signed by: SOILA MORRIS @ 12/10/2018 03:21 [facility] HospitalComment on above:Order Comment: , Views (X-RAY, FEMUR): Radiologic Protocol , Weight Bearing?: Y , Views (X-RAY, FEMUR): Radiologic Protocol , Weight Bearing?: Y , , , Ordering Provider - ZHENG SCOTT PA-C , VITAMIN D 25-HYDROXYon [id number] D 25-OH40.2 ng/mL Merxod19.0-80.0The Magruder HospitalComment on above:Result Comment: >80.0 Toxicity possiblePerformed By: #### [id number] #### [address] [address], [facility] FACILITYFEMUR RIGHT 2 [facility] [id number] RIGHT 2 SUniMiddletown Hospital Department of Radiology [address] [place] [phone] Patient Name: ZACH MANUEL : 1945 [...] healing Electronically signed by:Soila Morris. Transcribed by: [email or web address], User Resident: Electronically Signed by: SOILA MORRIS @ 10/29/2018 02:17 [facility] HospitalComment on above:Order Comment: , , , Ordering Provider - ZHENG SCOTT PA-C , FEMUR RIGHT 2 [facility] [id number] RIGHT 2 [facility] Department of Radiology [address] [place] [phone] Patient Name: ZACH MANUEL : 1945 Sex: M Age: Race: White Pt. Location: Patient Status: O Ordered Date: 09/20/2018 12:45:00 PM Completed Date: 09/20/2018 12:45 PM Requesting Provider: ZHENG SCOTT Attending Provider: JACQUELINE CROSS Report Copy To: HANNA MATHIAS Signs & Symptoms: S72.21XD Displ subtrochnt fx r femur, subs for clos fx w routn heal I10 History: [place] Comments: , Views (X-RAY, FEMUR): AP, Lateral , Views (X-RAY, FEMUR): AP, Lateral , , , Ordering Provider - ZHENG SCOTT PA-C , Exam: FEMUR RIGHT 2 [facility] FEM[facility] RIGHT 2 [facility] 09/20/2018 12:49 PM EST SIGNS AND [...] bridging Electronically signed by:Soila Morris. Transcribed by: [email or web address], User Resident: Electronically Signed by: SOILA MORRIS @ 09/20/2018 01:08 [facility] HospitalComment on above:Order Comment: , Views (X-RAY, FEMUR): AP, Lateral , Views (X-RAY, FEMUR): AP, Lateral , , , Ordering Provider - ZHENG SCOTT PA-C , FEMUR RIGHT 2 [facility] [id number] RIGHT 2 [facility] Department of Radiology [address] [place] [address] Patient Name: ZACH MANUEL : 1945 Sex: M Age: Race: White Pt. Location: Patient Status: O Ordered Date: 08/23/2018 12:50:00 PM Completed Date: 08/23/2018 12:57 PM Requesting Provider: ZHENG SCOTT Attending Provider: ZHENG SCOTT Report Copy To: HANNA MATHIAS Signs & Symptoms: S72.21XD Displ subtrochnt fx r femur, subs for clos fx w routn heal I10 History: [place] Comments: , Views (X-RAY, FEMUR): AP, Lateral [...] disease Electronically signed by:Soila Morris. Transcribed by: [email or web address], User Resident: Electronically Signed by: SOILA MORRIS @ 08/23/2018 02:15 [facility] HospitalComment on above:Order Comment: , Views (X-RAY, FEMUR): AP, Lateral , Views (X-RAY, FEMUR): AP, Lateral , , , Ordering Provider - ZHENG SCOTT PA-C , FEMUR RIGHT 2 [facility] [id number] RIGHT 2 [facility] Department of Radiology [address] [place] [phone] Patient Name: ZACH MANUEL : 1945 Sex: M Age: Race: White Pt. Location: Patient Status: Ordered Date: 07/25/2018 10:10:00 AM Completed Date: 07/25/2018 10:16 AM Requesting Provider: JACQUELINE CROSS Attending Provider: Report Copy To: Signs & Symptoms: S72.21XA Displaced subtrochanteric fracture of right femur, init I10 History: [place] Comments: , , , Ordering Provider - [...] above Electronically signed by:Soila Morris. Transcribed by: [email or web address], User Resident: Electronically Signed by: SOILA MORRIS @ 07/25/2018 02:02 PMNormalOhioHealth Grant Medical CenterComment on above:Order Comment: , , , Ordering Provider - JACQUELINE CROSS PA-C , BASIC METABOLIC PANELon 58-07-0214Npgwjoq [Mass/Vol]8.2 mg/dLLow8.6-10.3The Magruder HospitalComment on above:Order Comment: No: Do not add to previous drawPerformed By: #### 62632 #### [facility] [address] [place] [address], USAChloride [Moles/Vol]100 mmol/EMfpsyo94-511Ors [facility]uder HospitalComment on above:Order Comment: No: Do not add to previous drawPerformed By: #### 91380 #### [facility] [address] [place] [address], USACO2 [Moles/Vol]25 mmol/GWwwmbn25-06Ebx [facility] HospitalComment on above:Order Comment: No: Do not add to previous draw Performed By: #### 85950 #### [facility] [address] [place] [address], USACreatinine [Mass/Vol]1.11 mg/dLNormal0.70-1.30The Magruder HospitalComment on above:Order Comment: No: Do not add to previous drawPerformed By: #### 50316 #### [facility] [address] [place] [address], USAGFR/1.73 sq M predicted among blacks MDRD (S/P/Bld) [Vol rate/Area]mL/min/{1.73_m2}Normal>60The [facility] Comment on above:Order Comment: No: Do not add to previous drawResult Comment: Calculation may not be valid for patients over 70 yearsPerformed By: #### 28445 #### [facility] [address] [place] [address], USAGFR/1.73 sq M predicted among non-blacks MDRD (S/P/Bld) [Vol rate/Area]mL/min/{1.73_m2}Normal>60The [facility] Comment on above:Order Comment: No: Do not add to previous drawResult Comment: Calculation may not be valid for patients over 70 yearsPerformed By: #### 91966 #### [facility] [address] [place] [address], USAGlucose [Mass/Vol]243 mg/pGDftd58-294Uuh [facility] HospitalComment on above:Order Comment: No: Do not add to previous drawPerformed By: #### 00565 #### [facility] [address] [place] [address], USAPotassium [Moles/Vol]3.7 mmol/LNormal3.5-5.1The Magruder HospitalComment on above:Order Comment: No: Do not add to previous drawPerformed By: #### 28168 #### [facility] [address] [place] [address], USASodium [Moles/Vol]131 mmol/HKie915-768Pfz [facility] HospitalComment on above:Order Comment: No: Do not add to previous drawPerformed By: #### 72498 #### [facility] [address] [place] [address], USAUrea nitrogen [Mass/Vol]18 mg/dLNormal7-25The Magruder HospitalComment on above:Order Comment: No: Do not add to previous drawPerformed By: #### 83492 #### [facility] [address] [place] [address], USACBC COMPLETE BLOOD COUNTon 88-67-2313Ykdsnicznrn distribution width (RBC) [Ratio]12.4 %Moyngl30.5-15.0The Magruder HospitalComment on above:Order Comment: No: Do not add to previous draw Performed By: #### 96149 #### [facility] [address] [facility] [place] [address], USAHematocrit (Bld) [Volume fraction]25.4 %Low39.0-50.0The Magruder HospitalComment on above:Order Comment: No: Do not add to previous drawPerformed By: #### 77819 #### [facility] [address] [facility] [place] [address], USAHemoglobin (Bld) [Mass/Vol]8.6 g/dLLow13.0-17.0The Mag[facility]uder HospitalComment on above:Order Comment: No: Do not add to previous drawPerformed By: #### 15237 #### [facility] [address] [place] [address], [facility] FACILITYIMM PLATELET FRAC5.2 %Normal0.8-6.3The Magruder HospitalComment on above:Order Comment: No: Do not add to previous draw Performed By: #### 56419 #### [facility] [address] [place] [address], [facility] (RBC) [Entitic mass]31.4 pkJepeqa46.0-33.0The Mag[facility]uder HospitalComment on above:Order Comment: No: Do not add to previous drawPerformed By: #### 66049 #### [facility] [address] [place] [address], [facility]OB[facility]THC (RBC) [Mass/Vol]33.9 g/cQBqfbhd66.0-35.0The Mag[facility]uder HospitalComment on above:Order Comment: No: Do not add to previous drawPerformed By: #### 56754 #### [facility] [address] [place] [address], [facility] (RBC) [Entitic vol]92.7 gUGxeqzv84.0-98.0The Mag[facility]uder HospitalComment on above:Order Comment: No: Do not add to previous drawPerformed By: #### 32056 #### [facility] [address] [facility] [place] [place] [address], USANucleated RBC/100 WBC (Bld) [Ratio]0 %Normal0-0The Mag[facility]uder HospitalComment on above:Order Comment: No: Do not add to previous drawPerformed By: #### 64820 #### [facility] [address] [facility] [place] [address], USAPLAT UNC743 10*3/hFHae834-831Dpx [facility] HospitalComment on above:Order Comment: No: Do not add to previous draw Performed By: #### 30811 #### [facility] [address] [place] [address], USARBC (Bld) [#/Vol]2.74 10*6/uLLow4.20-5.70The Mag[facility]uder HospitalComment on above:Order Comment: No: Do not add to previous drawPerformed By: #### 70168 #### [facility] [address] [place] [address], USAWBC (Bld) [#/Vol]6.87 10*3/uLNormal4.00-10.60The Mag[facility]uder HospitalComment on above:Order Comment: No: Do not add to previous drawPerformed By: #### 39105 #### [facility] [address] [place], [place] [address], USAPOC GLUCOSE LABon 90-59-0786Hawesjv [Mass/Vol]281 mg/dLHigh 70-100The Magruder HospitalComment on above:Performed By: #### 05997 #### [facility] [address] [place], [place] [address], USAGlucose [Mass/Vol]250 mg/gGIpkr47-120Hnu [facility] HospitalComment on above:Performed By: #### 75724, 93367 #### [facility] [address] [place] [address], USAGlucose [Mass/Vol]240 mg/nYFmtz89-877Doy [facility] HospitalComment on above:Performed By: #### 06876, 39064 #### [facility] [address] [place], [place] [address], USABASIC METABOLIC PANELon 26-37-2472Duwfpgs [Mass/Vol]8.0 mg/dLLow8.6-10.3The [facility]uder HospitalComment on above:Order Comment: No: Do not add to previous drawPerformed By: #### 94526, 84592 #### [facility] [address] [place] [address], USAChloride [Moles/Vol]101 mmol/COklwso00-279Ocj [facility] HospitalComment on above:Order Comment: No: Do not add to previous drawPerformed By: #### 11930, 34965 #### [facility] [address] [place] [address], USACO2 [Moles/Vol]25 mmol/BAoikyy76-47Gcp [facility] HospitalComment on above:Order Comment: No: Do not add to previous draw Performed By: #### 94441, 55968 #### [facility] [address] [place] [address], USACreatinine [Mass/Vol]1.23 mg/dLNormal0.70-1.30The Mag[facility]uder HospitalComment on above:Order Comment: No: Do not add to previous drawPerformed By: #### 89677, 77838 #### [facility] [address] [place] [address], USAGFR/1.73 sq M predicted among blacks MDRD (S/P/Bld) [Vol rate/Area]mL/min/{1.73_m2}Normal>60The [facility] Comment on above:Order Comment: No: Do not add to previous drawResult Comment: Calculation may not be valid for patients over 70 yearsPerformed By: #### 03300, 01295 #### [facility] [address] [place] [address], USAGFR/1.73 sq M predicted among non-blacks MDRD (S/P/Bld) [Vol rate/Area]58 ml/min/1.73sq mAbnormal>60The Magruder HospitalComment on above:Order Comment: No: Do not add to previous drawResult Comment: Calculation may not be valid for patients over 70 yearsPerformed By: #### 34519, 19704 #### [facility] [address] [place] [address], USAGlucose [Mass/Vol]207 mg/pPWqug04-206Btd [facility] HospitalComment on above:Order Comment: No: Do not add to previous drawPerformed By: #### 41024, 06113 #### [facility] [address] [place] [address], USAPotassium [Moles/Vol]3.7 mmol/LNormal3.5-5.1The Magruder HospitalComment on above:Order Comment: No: Do not add to previous drawPerformed By: #### 56230, 01599 #### [facility] [address] [place] [address], USASodium [Moles/Vol]130 mmol/TZko773-654Rql [facility] HospitalComment on above:Order Comment: No: Do not add to previous drawPerformed By: #### 13215, 26086 #### [facility] [address] [place] [address], USAUrea nitrogen [Mass/Vol]16 mg/dLNormal7-25The Magruder HospitalComment on above:Order Comment: No: Do not add to previous drawPerformed By: #### 21795, 32577 #### [facility] [address] [facility] [place] [address], [facility] FACILITYCBC W/DIFFon 41-35-6114CLR BASOPHILS0.0 10*3/uLNormal 0.0-0.2The Magruder HospitalComment on above:Order Comment: No: Do not add to previous drawPerformed By: #### 68566, 34180 #### [facility] [address] [facility] [place] [address], USAABS IMM GRANS0.1 10*3/uLNormal0.0-0.2The Magruder HospitalComment on above:Order Comment: No: Do not add to previous drawPerformed By: #### 81785, 93838 #### [facility] [address] [place] [address], [facility] FACILITYABS NEUTROPHILS7.6 10*3/uLNormal1.6-7.6The Magruder HospitalComment on above:Order Comment: No: Do not add to previous drawPerformed By: #### 66081, 18820 #### [facility] [address] [facility] [place] [place] [address], USABasophils/100 WBC (Bld)0.3 %Normal0.0-1.0The Magruder HospitalComment on above:Order Comment: No: Do not add to previous drawPerformed By: #### 59951, 30373 #### [facility] [address] [facility] [place] [address], USAEosinophils (Bld) [#/Vol]0.1 10*3/uLNormal0.0-0.5The Magruder HospitalComment on above:Order Comment: No: Do not add to previous drawPerformed By: #### 46826, 86320 #### [facility] [address] [facility] [place] [address], USAEosinophils/100 WBC (Bld)1.6 %Normal0.0-6.0The Magruder HospitalComment on above:Order Comment: No: Do not add to previous drawPerformed By: #### 93625, 00640 #### [facility] [address] [facility] [place] [address], USAErythrocyte distribution width (RBC) [Ratio]12.5 %Normal 11.5-15.0The Magruder HospitalComment on above:Order Comment: No: Do not add to previous drawPerformed By: #### 92557, 54916 #### [facility] [address] [facility] [place] [address], USAHematocrit (Bld) [Volume fraction]26.0 %Low39.0-50.0The Magruder HospitalComment on above:Order Comment: No: Do not add to previous drawPerformed By: #### 07344, 47580 #### [facility] [address] [facility] [place] [address], USAHemoglobin (Bld) [Mass/Vol]8.8 g/dLLow13.0-17.0The Mag[facility]uder HospitalComment on above:Order Comment: No: Do not add to previous drawPerformed By: #### 66211, 65918 #### [facility] [address] [place] [address], USAIMM PLATELET FRAC4.5 %Normal0.8-6.3The Magruder HospitalComment on above:Order Comment: No: Do not add to previous draw Performed By: #### 86812, 21501 #### [facility] [address] [place] [address], USAIMMATURE GRANS0.6 %Normal0.0-1.0The Magruder HospitalComment on above:Order Comment: No: Do not add to previous draw Performed By: #### 75151, 75870 #### [facility] [address] [place] [address], USALymphocytes (Bld) [#/Vol]0.2 10*3/uLLow1.2-4.0The Mag[facility]uder HospitalComment on above:Order Comment: No: Do not add to previous drawPerformed By: #### 86874, 99558 #### [facility] [address] [place] [address], USALymphocytes/100 WBC (Bld)2.1 %Low20.0-45.0The Mag[facility]uder HospitalComment on above:Order Comment: No: Do not add to previous drawPerformed By: #### 40965, 71247 #### [facility] [address] [place] [address], USAMCH (RBC) [Entitic mass]31.7 tjEjfrwb62.0-33.0The Mag[facility]uder HospitalComment on above:Order Comment: No: Do not add to previous drawPerformed By: #### 95820, 83574 #### [facility] [address] [place] [address], [facility] FACILITYMCHC (RBC) [Mass/Vol]33.8 g/mRLakdww59.0-35.0The Mag[facility] HospitalComment on above:Order Comment: No: Do not add to previous drawPerformed By: #### 85491, 07037 #### [facility] [address] [place] [address], [facility] FACILITYMCV (RBC) [Entitic vol]93.5 aGJnmoga91.0-98.0The [facility] HospitalComment on above:Order Comment: No: Do not add to previous drawPerformed By: #### 76094, 96380 #### [facility] [address] [place] [address], USAMonocytes (Bld) [#/Vol]0.6 10*3/uLNormal0.1-1.0The [facility]uder HospitalComment on above:Order Comment: No: Do not add to previous drawPerformed By: #### 36871, 41808 #### [facility] [address] [place] [address], USAMONOS7.1 %Normal5.0-12.0The Mag[facility] HospitalComment on above:Order Comment: No: Do not add to previous drawPerformed By: #### 66089, 67839 #### [facility] [address] [place] [address], USANeutrophils/100 WBC (Bld)88.3 %High40.0-72.0The Mag[facility]uder HospitalComment on above:Order Comment: No: Do not add to previous drawPerformed By: #### 33736, 88977 #### [facility] [address] [place] [address], USANucleated RBC/100 WBC (Bld) [Ratio]0 %Normal0-0The Mag[facility]uder HospitalComment on above:Order Comment: No: Do not add to previous drawPerformed By: #### 61742, 57459 #### [facility] [address] [place] [address], USAPLAT FFB430 10*3/jYUxd128-522Ywg [facility] HospitalComment on above:Order Comment: No: Do not add to previous draw Performed By: #### 37692, 58841 #### [facility] [address] [place] [address], USARBC (Bld) [#/Vol]2.78 10*6/uLLow4.20-5.70The Mag[facility]uder HospitalComment on above:Order Comment: No: Do not add to previous drawPerformed By: #### 22008, 44684 #### [facility] [address] [place] [address], USAWBC (Bld) [#/Vol]8.62 10*3/uLNormal4.00-10.60The [facility] HospitalComment on above:Order Comment: No: Do not add to previous drawPerformed By: #### 30961, 75447 #### [facility] [address] [place] [address], USAPOC GLUCOSE LABon 33-08-3861Czoipil [Mass/Vol]281 mg/dLHigh 70-100The [facility]uder HospitalComment on above:Performed By: #### 42820, 55836 #### [facility] [address] [place] [address], USAGlucose [Mass/Vol]305 mg/kDXepw70-908Zdu [facility] HospitalComment on above:Performed By: #### 96578, 37203 #### [facility] [address] [place] [address], USAGlucose [Mass/Vol]198 mg/hQPiow83-505Mfw [facility] HospitalComment on above:Performed By: #### 57894, 52584 #### [facility] [address] [place] [address], USAGlucose [Mass/Vol]227 mg/mPFpdd08-903Bql [facility] HospitalComment on above:Performed By: #### 31182, 92836 #### [facility] [address] [place] [address], USABASIC METABOLIC PANELon 03-68-9013Iphnsnk [Mass/Vol]8.3 mg/dLLow8.6-10.3The [facility]uder HospitalComment on above:Order Comment: UnknownPerformed By: #### 35425, 36077 #### [facility] [address] [place] [address], USAChloride [Moles/Vol]105 mmol/KVpcxie78-888Yku [facility] HospitalComment on above:Order Comment: UnknownPerformed By: #### 73055, 57548 #### [facility] [address] [place] [address], USACO2 [Moles/Vol]24 mmol/ZXdxpwj42-35Mmc [facility] HospitalComment on above:Order Comment: UnknownPerformed By: #### 48549, 32284 #### [facility] [address]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 DESIGNER.BONUS CLERK Work Phone: [facility]09-27-2022 12:37-2167UoE7% (BldA) [Mass fraction]97 %Becca Lane TEST FIXTURE DESIGNER.BONUS CLERK Work Phone: [facility]09-27-2022 12:37-0400Systolic blood mm[Hg]Becca Lane TEST FIXTURE DESIGNER.BONUS CLERK Work Phone: [facility]06-28-2022 12:49-0400Body utbwlf514.3 Justin Gunter MD Work Phone: [facility]06-28-2022 12:49-0400Body temperature 97 [degF]Uriel Gunter MD Work Phone: [facility]06-28-2022 12:49-0400Body idqulq09.81 kgUriel Gunter MD Work Phone: [facility]06-28-2022 12:49-0400Diastolic blood yphsvqbh55 mm[Hg]Uriel Gunter MD Work Phone: [facility]06-28-2022 12:49-0400Heart rate65 /min Uriel Gunter MD Work Phone: [facility]06-28-2022 12:49-0400Respiratory rate 16 /minUriel Gunter MD Work Phone: [facility]06-28-2022 12:49-0070AfA8% (BldA) [Mass fraction]100 %Uriel Gunter MD Work Phone: [facility]06-28-2022 12:49-0400Systolic blood siclbkxz410 mm[Hg]Uriel Gunter MD Work Phone: [facility]05-03-2022 12:42-0400Body .3 cmUriel Gunter MD Work Phone: [facility]05-03-2022 12:42-0400Body temperature 98.01 [degF]Uriel Gunter MD Work Phone: [facility]05-03-2022 12:42-0400Body ymweei05.91 Colton Gunter MD Work Phone: [facility]05-03-2022 12:42-0400Diastolic blood mm[Hg]Uriel Gunter MD Work Phone: [facility]05-03-2022 12:42-0400Heart rate64 /min Uriel Gunter MD Work Phone: [facility]05-03-2022 12:42-0400Respiratory rate 18 /minUriel Gunter MD Work Phone: [facility]05-03-2022 12:42-8171DsQ5% (BldA) [Mass fraction]98 %Uriel Gunter MD Work Phone: [facility]05-03-2022 12:42-0400Systolic blood kzxthqyf157 mm[Hg]Uriel Gunter MD Work Phone: [facility] Encounters Encounter DateEncounter TypeCare ProviderFacilityStart: 84-23-4576aklmqvuwsf Manny R NILLFacility:[facility] HospitalevueStart: 58-92-0543brcqletbsfXhyzbwi NILL Facility: [facility]vueStart: 02-27-2025 End: 62-91-7743HorovtVglso R Murphy MD Work Phone: [facility] PharmacyComment on above: Refill RequestStart: 02-19-2025 End: 15-35-4795Bnjtgb-up encounterUriel Gunter MD Work Phone: Hematology/OncologyComment on above:ResultsStart: 02-17-2025 End: 64-93-2386Hjgtcll encounter procedureUriel Gunter MD Work Phone: Hematology/OncologyStart: 02-17-2025 End: 57-50-4134ktgswmsriyOrwpk [address] Work Phone: Hematology/OncologyComment on above:Multiple myeloma not having achieved remission (HCC) (Primary Dx); Paget disease of boneMultiple myeloma not having achieved remission (HCC) (Primary Dx); Paget disease of bone; H/O ulcerative colitis; Stage 3b chronic kidney disease (HCC)Start: 12-11-2024 End: 54-91-6134QsvemsAavgofr Morrow [facility]ly [facility] Work Phone: [facility] PharmacyComment on above: Refill RequestStart: 11-20-2024 End: 71-10-0867Hmdpvjueva and management of inpatientDAVID Jessica ZARATEProMedica Flower Hospitaltart: 11-20-2024 End: 78-27-6490Jlydsgtejm and management of inpatientSUSAN Rachel STAPLETONProMedica Flower Hospitaltart: 11-19-2024 End: 64-75-8680keqhhiqovaRzz Pat Phone Call Provider [address] [place] [address] - Pre AdmitStart: 11-19-2024 End: 76-92-6080fnvvmzgbzpDSSHB E SMITHProMedica Flower Hospitaltart: 11-17-2024 End: 94-79-6088ElxkqbIqayn R Murphy MD Work Phone: [facility] PharmacyComment on above: Refill RequestStart: 10-30-2024 End: 99-30-4350Llsauzambw and management of inpatientCYLE [facility] Campus Medical Centertart: 10-30-2024 End: 69-41-4790Szyxivjrem and management of inpatientSUSAN Rachel [facility] Campustart: 10-10-2024 End: 05-62-3591BdvkhpAqkyqyx McKitrick [facility]ly [facility] Work Phone: [facility] PharmacyComment on above: Refill RequestStart: 10-09-2024 End: 75-17-5355umpsujxrsaSHZGE M SOMMERSProMedica Flower Hospitaltart: 15-58-5339Lxnjlmuru for other preprocedural examinationDOUGLAS [facility] Hospitaltart: 10-09-2024 End: 74-58-8056Fyfqcgb encounter procedurePm Pre-Admission Testing [address] [place] [address] - Pre AdmitComment on above:Preop examination (Primary Dx)Start: 10-09-2024 End: 74-93-0273Afknvaytqsjef examination donePm[address] SystemStart: 09-11-2024 End: 08-48-5904IkocqgNusttAnusha Gunter MD Work Phone: [facility] PharmacyComment on above: Refill RequestStart: 08-11-2024 End: 51-91-3699QggbfiRthnmAnusha Gunter MD Work Phone: [facility] PharmacyComment on above: Refill RequestStart: 07-25-2024 End: 64-76-5294vepdybplobRwiaikyMiki Woodson RPh Work Phone: [facility] HB-3Start: 07-25-2024 End: 81-58-8511X-mail encounter from Paulette YoungerNamkristi [facility]ly [facility] Work Phone: [facility] HB-3Start: 06-30-2024 End: 31-04-8808ZwbgvnTmzhgAnusha Gunter MD Work Phone: [facility] PharmacyComment on above: Refill RequestStart: 06-04-2024 End: 80-56-0596PytoqdYxnnd R Murphy MD Work Phone: [facility] PharmacyComment on above: Refill RequestStart: 05-29-2024 End: 93-92-1284Zlvweogou encounterResaad Ferguson RN Work Phone: Hematology/OncologyComment on above:Care Coordination (Lab Results)Start: 05-27-2024 End: 27-16-0270Clntearlw encounterMinjessee Hilario PA-C Work Phone: Hematology/OncologyComment on above:ResultsStart: 05-27-2024 End: 48-67-3271Izzhmq outpatient visit 15 minutesLatrice Hilario PA-C Work Phone: Hematology/OncologyComment on above:Multiple myeloma not having achieved remission (HCC) (Primary Dx); Type 2 diabetes mellitus without complication, with long-term current use of insulin (HCC)Start: 05-27-2024 End: 96-92-5994hbkcmmsfokSOTEVHM M HOYFacility:[facility] HospitalStart: 05-20-2024 End: 68-44-4929Evqhabztq encounterLatrice Hilario PA-C Work Phone: Hematology/OncologyComment on above:Lab OrdersStart: 74-11-0287DfuvtqYoalxve [facility] Work Phone: [facility] HB-3Comment on above:Refill Request Start: 19-35-0825YtvowwQpuieAnusha Gunter MD Work Phone: [facility] PharmacyComment on above: Refill RequestStart: 47-28-8323SjagdoOolfaAnusha Gunter MD Work Phone: [facility] PharmacyComment on above: Refill RequestStart: 69-99-2893Srulxuukg encounterResaad Ferguson RN Work Phone: Hematology/OncologyComment on above:Care Coordination (Labs)Start: 02-26-2024 End: 56-21-6583Hdkaufq encounter David Gunter MD Work Phone: Hematology/OncologyStart: 02-26-2024 End: 58-90-1152vjfymeaptxFttkq [address] Work Phone: Hematology/OncologyComment on above:Multiple [...] CKD (HCC); Elevated prostate specific antigen (PSA)Start: 27-99-0329CybriaYmixrgz McKitrick [facility] Work Phone: [facility] PharmacyComment on above: Refill Request (revlimid)Start: 80-42-7015NtvwdsMauzbst Morrow [facility]ly [facility] Work Phone: [facility] PharmacyComment on above: Refill RequestStart: 66-28-0735XwkzyzKqzkrAnusha Gunter MD Work Phone: [facility] Pharm ServicesComment on above:Refill Request Start: 03-14-1610DturgoCvrvjqv Morrow [facility] Work Phone: [facility] PharmacyComment on above: Refill RequestStart: 11-27-2023 End: 82-60-2200gqxgjpnymfQnnes Martinez APRN.BONUS CLERK Work Phone: Hematology/OncologyComment on above:Multiple myeloma not having achieved remission (HCC) (Primary Dx); Paget disease of bone; Type 2 diabetes mellitus without complication, with long-term current use of insulin (HCC); H/O ulcerative colitis; Elevated prostate specific antigen (PSA); Stage 3b chronic kidney disease (HCC)Start: 11-27-2023 End: 73-65-8703Bqdpzlc encounter Mallory Lane APRN.BONUS CLERK Work Phone: [place]KYStart: 20-33-1696Jdsdmwubr encounterUriel Gunter MD Work Phone: Hematology/OncologyComment on above:Lab OrdersStart: 88-81-4249VybmcoPqzygRocky Hatfield MD Work Phone: [facility] Pharm ServicesComment on above:Refill Request Start: 08-28-2023 End: 61-38-5750yuvntihrohFudod [address] Work Phone: Hematology/OncologyComment on above:Multiple myeloma, remission status unspecified (HCC) (Primary Dx)Multiple myeloma not having achieved remission (HCC) (Primary Dx); Paget disease of bone; Stage 3b chronic kidney disease (HCC); Type 2 diabetes mellitus without complication, with long-term current use of insulin (HCC); H/O ulcerative colitis; Elevated prostate specific antigen (PSA)Start: 08-28-2023 End: 22-45-1300Kxdbhdh encounter David Gunter MD Work Phone: SANDUSKYStart: 30-91-9532WanvnxZvpzi R Murphy MD Work Phone: [facility] Pharm ServicesComment on above:Refill Request Start: 43-29-8165ZcifgxJydzyhy McKitrick [facility]ly [facility] Work Phone: [facility] PharmacyComment on above: Refill RequestStart: 93-91-9454Tqgyrzvsv encounterBozena Roland RN Hematology/OncologyComment on above:ResultsStart: 05-29-2023 End: 74-14-9006orjpfcxwnqEzwoh R Murphy MD Work Phone: Hematology/OncologyComment on above:Multiple myeloma not having achieved remission (HCC) (Primary Dx); Stage 3b chronic kidney disease (HCC); Type 2 diabetes mellitus without complication, with long-term current use of insulin (HCC); Paget disease of bone; H/O ulcerative colitisStart: 05-29-2023 End: 19-00-5809Xmvlbrp encounter David Gunter MD Work Phone: SANDUSKYStart: 00-58-1730VmpjooPvsnt Karamlou MD Work Phone: [facility] Pharm ServicesComment on above:Refill Request Start: 22-25-6098Bugnvulfw Rashmi Gunter MD Work Phone: Hematology/OncologyComment on above:Lab OrdersStart: 72-69-3260RjsgzeVgbanjt Morrow [facility] Work Phone: [facility] HB-3Comment on above:Refill Request Start: 88-91-0739SomqrgIwbabki [facility] Work Phone: [facility] PharmacyComment on above: Refill RequestStart: 89-06-8308SezkadQecxhcz McOhio[facility] Work Phone: [facility] PharmacyComment on above: Refill RequestStart: 12-05-2022 End: 06-15-6525tckwnrpadmWaaqb [address] Work Phone: Hematology/OncologyComment on above:Multiple myeloma, remission status unspecified (HCC) (Primary Dx)Multiple myeloma not having achieved remission (HCC) (Primary Dx); Paget disease of bone; Type 2 diabetes mellitus without complication, with long-term current use of insulin (HCC); Elevated prostate specific antigen (PSA)Start: 12-05-2022 End: 09-15-4829Nxcpwqw encounter David Gunter MD Work Phone: SANDUSKYStart: 21-90-7029Beikecjqv encounterUriel Gunter MD Work Phone: Hematology/OncologyComment on above:Lab OrdersStart: 65-36-8171HmwetxClfggtu Adame [facility] Work Phone: [facility] -3Comment on above:Refill Request Start: 12-47-0065ZcgicnZqebkmw McKitrick [facility] Work Phone: [facility] PharmacyComment on above: Refill RequestStart: 44-02-9753TamtpcRjyscya McKitrick [facility] Work Phone: Hematology/OncologyComment on above:Refill Request Start: 09-12-2022 End: 27-57-5809guwynycftxCyqaq R Murphy MD Work Phone: Hematology/OncologyComment on above:Multiple myeloma not having achieved remission (HCC) (Primary Dx); Paget disease of bone; Type 2 diabetes mellitus without complication, with long-term current use of insulin (HCC); Elevated prostate specific antigen (PSA); H/O ulcerative colitisStart: 09-12-2022 End: 76-94-8713Fyodzzy encounter procedureUriel Gunter MD Work Phone: SANDUSKYStart: 08-28-2022 End: 68-38-9050qylassybdnET HANNA BRANHAMYFacility:M0Ejofx: 66-85-5804AoixqrDixhtxq [facility] Work Phone: Hematology/OncologyComment on above:Refill Request Start: 75-62-8911Ckzenljmq encounterRebecca SesslerHematology/OncologyComment on above:Care Coordination (Calcium)Start: 06-20-2022 End: 04-32-7808unpfklbvpdEjxyc [address] Work Phone: Hematology/OncologyComment on above:Multiple myeloma, remission status unspecified (HCC) (Primary Dx)Multiple myeloma not having achieved remission (HCC) (Primary Dx); Paget disease of bone; Type 2 diabetes mellitus without complication, with long-term current use of insulin (HCC); Elevated prostate specific antigen (PSA)Start: 06-20-2022 End: 93-37-8845Lphltby encounter Mallory Lane APRN.CNP Work Phone: SANDUSKYStart: 06-42-3663ZxjxaxDltkgez Morrow [facility] Work Phone: [facility] Pharm ServicesComment on above:Refill Request Start: 90-30-9184Dxmfoyiew encounterUriel Gunter MD Work Phone: Hematology/OncologyComment on above:Lab OrdersStart: 84-57-0138ZwogbvIsvelrm McKitrick [facility] Work Phone: Hematology/OncologyComment on above:Refill Request Start: 58-01-4360IunsjyJjorq [facility] Work Phone: [facility] HB-3Comment on above:Refill Request Start: 29-86-9454EgvmrkJcuha Antoine [facility] Work Phone: [facility] HB-3Comment on above:Refill Request (lenalidomide)Mill Set Up - Other ([facility] benjamin obtained)Start: 99-22-7540Atyxpfuuk encounterFunmilayo Arriola RNHematology/OncologyComment on above:ResultsStart: 03-24-2022 End: 25-31-8392jkbamynlhjZN DOUGLAS HOYFacility:B8Jcmut: 03-21-2022 End: 90-17-3678lhjkloyktzQcixt R Murphy MD Work Phone: Hematology/OncologyComment on above:Multiple myeloma not having achieved remission (HCC) (Primary Dx); Paget disease of bone; Type 2 diabetes mellitus without complication, with long-term current use of insulin (HCC); H/O ulcerative colitis; Elevated prostate specific antigen (PSA)Start: 03-21-2022 End: 47-29-1411Lptzcyb encounter David Gunter MD Work Phone: SANDUSKYStart: 03-15-2022 End: 70-55-3060fmtkwadiovDZPhilip Jamisonity:Y6Fmtma: 03-14-2022 End: 75-48-8482lhqjkvaahtUP HANNA HOYFacility:J1Tgulc: 25-41-6879RzleitQdycgbf McKitkristi [facility]ly [facility] Work Phone: Hematology/OncologyComment on above:Refill Request Start: 25-49-7012MpcgriTtgxv Schmitt [facility]ly [facility] Work Phone: [facility] HB-3Comment on above:Refill Request Start: 01-24-2022 End: 93-08-8319shfgobjjikNspwr R Murphy MD Work Phone: Hematology/OncologyComment on above:Multiple myeloma not having achieved remission (HCC) (Primary Dx); Paget disease of bone; Type 2 diabetes mellitus without complication, with long-term current use of insulin (HCC); H/O ulcerative colitisStart: 01-24-2022 End: 36-18-7748Xqflvji encounter procedureUriel Gunter MD Work Phone: SANDUSKYStart: 75-72-1009OqxvaoJihdyxn Morrow [facility] Work Phone: [facility] Pharm ServicesComment on above:Refill Request Start: 12-20-2021 End: 90-04-2734lbjjhniddlFS ROXANA WATERSFacility:H1Lidaf: 11-10-2021 End: 66-80-9100vppyrenwdrIP ROXANA WATERSFacility:J9Ipkee: 09-12-2021 End: 16-65-6579gxsatwlpzmKJ HANNA HOYFacility:U2Ubxzu: 09-10-2021 End: 81-29-3985jisigyzouxLN HANNA HOYFacility:Y6Dbjdc: 07-13-2018 End: 98-13-5867Nvnhfvxska and management of inpatientDOUGLAS HOYFacility:RUST Procedures DateProcedureProcedure DetailPerforming ClinicianStart: 22-37-8380Bghvj depression screening assessmentUriel Gunter MD Work Phone: Start: 17-08-5011HJL screeningDR HANNA HOYComment on above:Performed By: #### PSASC #### [facility] [address] [address] [address] Tigre Maldonado: 18-07-5088SKQ screeningDR HANNA HOYComment on above: Performed By: #### PSAD #### [facility] [address] [address] [address] Tigre Villaltaart: 31-86-8644Eyssx depression screening assessmentBridget Wendi [facility]ly [facility] Work Phone: Start: 31-12-3507CGUANSLGNS R UP FEMUR WITH INTRAMED FIX, PERC APPROACHNABIL EBRAHEIMStart: 65-85-6864RBMYTKAHTOVZ OF SERUM/TOX/VACCINE INTO MUSCLE, PERC APPROACHYASIR AL-ABBOODIStart: 07-13-2018 Antibody screenDOUGLAS HOYComment on above:Performed By: #### [id number] #### [address] Plan of Treatment DateCare ActivityDetailAuthorStart: 66-41-5941Azsqmqla blood count Hemoglobin/HematocritWatsonville ClinicStart: 08-10-6098Dnxruwkhya measurement Serum CreatinineCleKnox Community Hospitaltart: 92-18-6088Lqynhlw ScreeningTobacco ScreeningProSelect Medical Specialty Hospital [facility] Northca [facility] SystemStart: 95-40-8538Qwwsmfc ScreeningTobacco ScreeningProSelect Medical Specialty [facility] Northca [facility] SystemStart: 08-18-2025 End: 76-87-2386Ribwly-up encounterHematology/OncologyComment on above:6 month follow up with labStart: 08-18-2025 End: 03-63-5678Eylvmfh encounter /25/2025 10:15 AM EST Office Visit [facility] [address] [place] [address] [place] [address] 6 month follow up with labNortBeaumont Hospital LaboratoryComment on above:6 month follow up with labStart: 29-42-5059Kwmpnyqb blood countHemoglobin/HematocritWatsonville ClinicStart: 43-47-6214Pyyosqsxdq measurementSerum CreatinineCledayton osteopathic hospital ClinicStart: 98-70-0743Snvbmmstp vaccinationInfluenza Vaccine (Season Ended)[facility]ustart: 02-25-2025 Complete blood countHemoglobin/HematocritTrinity Health System East Campustart: 02-25-2025 Creatinine measurementSerum CreatinineTrinity Health System East Campustart: 02-17-2025 End: 02-67-7239MNISZOBYDN PROTEIN, SERUM (BLOOD)[facility] HospitalComment on above:Expected: 02/17/2025, Expires: 05/19/2025Start: 02-17-2025 End: 09-15-3543JXBI ELECT SERUM WITH TOÑITO AND INTERBlanchard Valley Health [facility] Work Phone: Comment on above:Expected: 02/17/2025, Expires: 05/19/2025Start: 86-23-2250Amyrm-19 Vaccine (10 - Mixed Product risk season)Covid-19 Vaccine (10 - Mixed Product risk season)[facility] Start: 79-45-1138Mrjillke blood countHemoglobin/HematocritTrinity Health System East Campustart: 17-74-3933Cpngjvmltu measurementSerum CreatinineTrinity Health System East Campustart: 11-20-2024 End: 33-81-7401Jwpvahjss to same day surgery rsntip4011/20/2024 9:45 AM EST - 11/20/2024 10:30 AM EST Surgery [facility] Surgery [address] [place] [address] Bernardo Stapleton MD [address] [place] [address] EXTRACTION CATARACT INTRAOCULAR LENS [63792 (CPT )][facility] - SurgeryComment on above:EXTRACTION CATARACT INTRAOCULAR LENS [61956 (CPT )] Start: 80-41-9313Lmivackmce hospital visit by scxubkqqi81/27/2025 9:45 AM EST Hospital Encounter [facility] [address] [place] [address] Bernardo Stapleton MD [address] [place] [address] [facility] - SurgeryStart: 11-20-2024 End: 27-21-9997Ulijsb ctrc rmvl insj io lens prosth w/o ecpFREMONT SURGERYStart: 11-19-2024 End: 39-39-0210uvnwtbmltr94/26/2025 3:50 PM EST Support Visit [facility] - [facility] Admit [address] [place] [address] [facility] AdmitStart: 10-30-2024 End: 57-05-1900Vdudafhyh to same day surgery yumpxg7010/30/2024 9:45 AM EST - 10/30/2024 10:30 AM EST Surgery [facility] [address] [place] [address] Bernardo Stapleton MD [address] [place] [address] EXTRACTION CATARACT INTRAOCULAR LENS [47860 (CPT )][facility] - SurgeryComment on above:EXTRACTION CATARACT INTRAOCULAR LENS [07099 (CPT )] Start: 79-27-0297Eaezzrjmbq hospital visit by bfbevdnin43/06/2025 9:45 AM EST Hospital Encounter [facility] [address] [place] [address] Bernardo Stapleton MD [address] [place] [address] [id number] [facility] - SurgeryStart: 10-30-2024 End: 27-77-6498Tvxcry ctrc rmvl insj io lens prosth w/o ecpEXTRACTION CATARACT INTRAOCULAR LENS cataract right eye 10/30/2024 9:45 AM ESTFREMONT SURGERYStart: 07-62-1587Yoblbto Directive DiscussionAdvance Directive DiscussionTrinity Health System East Campustart: 19-38-7417Vedbfvpm blood countHemoglobin/HematocritMarion Hospital Start: 16-39-1933Zmbmrzoiqm measurementSerum CreatinineTrinity Health System East Campustart: 45-06-9110Inaecnxwnd/HematocritHemoglobin/HematocritTrinity Health System East Campustart: 82-49-0256Ljfxs CreatinineSerum CreatinineTrinity Health System East Campustart: 08-26-2024 End: 94-98-9643ISC W Auto Differential panel - BloodCOMPLETE BLOOD COUNT AND DIFFERENTIAL Lab Routine Multiple myeloma not having achieved remission (HCC) Expected: 08/26/2024 (Approximate), Expires: 11/25/2024leveland ClinicComment on above:Expected: 08/26/2024 (Approximate), Expires: 11/25/2024Start: 08-26-2024 End: 40-29-5894Uecproqrlbeeo metabolic 2000 panel - Serum or PlasmaCOMPREHENSIVE METABOLIC PANEL Lab Routine Multiple myeloma not having achieved remission (HCC) Expected: 08/26/2024 (Approximate), Expires: 11/25/2024[facility] Work Phone: Comment on above:Expected: 08/26/2024 (Approximate), Expires: 11/25/2024Start: 08-26-2024 End: 24-46-5124HUEHZ/DANIELS,FREE,SERKAPPA/DANIELS,FREE,SER Lab Routine Multiple myeloma not having achieved remission (HCC) Expected: 08/26/2024 (Approximate), Expires: 11/25/2024[facility] ClinicComment on above:Expected: 08/26/2024 (Approximate), Expires: 11/25/2024Start: 08-26-2024 End: 22-00-8668IALXQCLNQC PROTEIN, SERUM (BLOOD)MONOCLONAL PROTEIN, SERUM (BLOOD) Lab Routine Multiple myeloma not having achieved remission (HCC) E xpected: 08/26/2024 (Approximate), Expires: 11/25/2024[facility] ClinicComment on above:Expected: 08/26/2024 (Approximate), Expires: 11/25/2024Start: 08-26-2024 End: 92-60-0768JKULVTN ELECTROPHORESIS SERUM W/INTERPPROTEIN ELECTROPHORESIS SERUM W/INTERP Lab Routine Multiple myeloma not having achieved remission (HCC) Expected: 08/26/2024 (Approximate), Expires: 03/04/2025[place] ClinicComment on above:Expected: 08/26/2024 (Approximate), Expires: 11/25/2024Start: 08-26-2024 End: 74-80-7491Vepljz-up encounterHematology/OncologyComment on above:3 month follow up with lab and arediaStart: 08-26-2024 End: 33-56-2389Omxmbwb encounter procedureNortBeaumont Hospital LaboratoryComment on above:3 month follow up with lab and arediaStart: 95-01-4890FDUGNRMBFW/HEMATOCRITHEMOGLOBIN/HEMATOCRITCleKnox Community Hospitaltart: 04-76-6276FTHQJ CREATININESERUM CREATININETrinity Health System East Campustart: 05-27-2024 End: 59-56-5608Lncqvm-up encounterHematology/OncologyComment on above:3 month follow up with lab and arediaStart: 05-27-2024 End: 09-72-3448Rfuzoft encounter fmkpbykbl29/03/2024 12:45 PM EDT Office Visit [facility] [address] [place] [address] [place] [address] 3 month follow up with lab and arediaNoLogan Regional Medical Center LaboratoryComment on above:3 month follow up with lab and aredia Start: 44-82-0468Okdvg-19 Vaccine ( season)Covid-19 Vaccine ( season)[facility] Campustart: 11-03-1995Cnlxt-19 Vaccine ( season)Covid-19 Vaccine ( season)[facility]ustart: 05-25-2024 Influenza vaccinationTrinity Health System East Campustart: 05-20-2024 End: 90-03-8567QDF W Auto Differential panel - BloodCOMPLETE BLOOD COUNT AND DIFFERENTIAL Lab Routine Multiple myeloma not having achieved remission (HCC) Expected: 05/20/2024, Expires: 08/19/2024[place] ClinicComment on above: Expected: 05/20/2024, Expires: 08/19/2024Start: 05-20-2024 End: 13-53-0060Gglfedewjyhih metabolic 2000 panel - Serum or PlasmaCOMPREHENSIVE METABOLIC PANEL Lab Routine Multiple myeloma not having achieved remission (HCC) Expected: 05/20/2024, Expires: 08/19/2024[facility] Work Phone: Comment on above:Expected: 05/20/2024, Expires: 08/19/2024Start: 05-20-2024 End: 11-78-0539UDPGYNELDU PROTEIN, SERUM (BLOOD)MONOCLONAL PROTEIN, SERUM (BLOOD) Lab Routine Multiple myeloma not having achieved remission (HCC) E xpected: 05/20/2024, Expires: 08/19/2024levelcritical access hospital ClinicComment on above: Expected: 05/20/2024, Expires: 08/19/2024Start: 05-20-2024 End: 33-83-4010USKZRDY ELECTROPHORESIS SERUM W/INTERPPROTEIN ELECTROPHORESIS SERUM W/INTERP Lab Routine Multiple myeloma not having achieved remission (HCC) Expected: 05/20/2024, Expires: 08/19/2024[facility] ClinicComment on above: Expected: 05/20/2024, Expires: 08/19/2024Start: 63-14-8388CHJRMDBKOH/HEMATOCRIT HEMOGLOBIN/HEMATOCRITTrinity Health System East Campustart: 84-17-2898ECAGN CREATININESERUM CREATININETrinity Health System East Campustart: 02-26-2024 End: 72-32-2908Pbzyrb-up encounterHematology/OncologyComment on above:3 month follow up with lab and arediaStart: 02-26-2024 End: 56-62-3373Donfdgo encounter ackajhcpi47/04/2024 1:00 PM EDT Office Visit [facility] [address] [place] [id number] 3 month follow up with lab and arediaNortBeaumont Hospital LaboratoryComment on above:3 month follow up with lab and aredia Start: 01-02-2024 End: 76-83-0779DJEHVXOFEL PROTEIN, SERUM (BLOOD)MONOCLONAL PROTEIN, SERUM (BLOOD) Lab Routine Multiple myeloma not having achieved remission (HCC) Paget disease of bone Type 2 diabetes mellitus without complication, with long-term current use of insulin (HCC) H/O ulcerative colitis Elevated prostate specific antigen (PSA) Stage 3b chronic kidneydisease (HCC) Expected: 01/02/2024, Expires: 04/02/2024[facility] Work Phone: Comment on above:Expected: 01/02/2024, Expires: 04/02/2024Start: 12-05-2023 End: 03-18-8941TMU W Auto Differential panel - BloodCBC + DIFF Lab Routine Multiple myeloma not having achieved remission (HCC) Paget disease of bone Type 2 diabetes mellitus without complication, with long-term current use of insulin (HCC) H/O ulcerative colitis Elevated prostate specific antigen (PSA) Stage 3b chronic kidney disease (HCC) Expected: 12/05/2023, Expires: 03/05/2024[facility] Work Phone: Comment on above:Expected: 12/05/2023, Expires: 03/05/2024Start: 12-05-2023 End: 03-13-2610Oniosmyqdiwwf metabolic 2000 panel - Serum or PlasmaCOMP METABOLIC PANEL Lab Routine Multiple myeloma not having achieved remission (HCC) Paget diseaseof bone Type 2 diabetes mellitus without complication, with long- term current use of insulin (HCC) H/O ulcerative colitis Elevated prostate specific antigen (PSA) Stage 3b chronic kidney disease (HCC) Expected: 12/05/2023, Expires: 03/05/2024[facility] Work Phone: Comment on above:Expected: 12/05/2023, Expires: 03/05/2024Start: 12-05-2023 End: 92-26-8556VOLL ELECT SERUM WITH TOÑITO AND INTERPPROT ELECT SERUM WITH TOÑITO AND INTERP Lab Routine Multiple myeloma not having achieved remission (HCC) Expected: 12/05/2023, Expires: 03/05/2024[facility] Work Phone: Comment on above:Expected: 12/05/2023, Expires: 03/05/2024Start: 11-26-2023 End: 66-27-8127Kzile metabolic 2000 panel - Serum or PlasmaBASIC METABOLIC PNL Lab Routine Multiple myeloma not having achieved remission (HCC) Expected: 11/25, Expires: 02/25/2024[facility] Work Phone: Comment on above:Expected: 11/26/2023, Expires: 02/25/2024Start: 11-26-2023 End: 93-08-7737ZEM W Auto Differential panel - BloodCBC + DIFF Lab Routine Multiple myeloma not having achieved remission (HCC) Expected: 11/26/2023, Ex jamie: 02/25/2024[facility] Work Phone: Comment on above:Expected: 11/26/2023, Expires: 02/25/2024Start: 11-26-2023 End: 33-33-4570KEIDPEHTKF PROTEIN, SERUM (BLOOD)MONOCLONAL PROTEIN, SERUM (BLOOD) Lab Routine Multiple myeloma not having achieved remission (HCC) E xpected: 11/26/2023, Expires: 02/25/2024[facility] Work Phone: Comment on above:Expected: 11/26/2023, Expires: 02/25/2024Start: 11-26-2023 End: 96-03-4057QCIK ELECT SERUM WITH TOÑITO AND INTERPPROT ELECT SERUM WITH TOÑITO AND INTERP Lab Routine Multiple myeloma not having achieved remission (HCC) Expected: 11/26/2023, Expires: 02/25/2024[facility] Work Phone: Comment on above:Expected: 11/26/2023, Expires: 02/25/2024Start: 81-25-9885Gtwlusi Directive DiscussionAdvance Directive DiscussionCleKnox Community Hospitaltart: 32-29-4172Ljunsbucmq Health ScreeningBehavioral Health ScreeningTrinity Health System East Campustart: 41-47-7662Aqnowsgbfs AssessmentDepression AssessmentCleKnox Community Hospitaltart: 73-00-3213Qiujv-19 Vaccine () Covid-19 Vaccine ()[facility]ustart: 08-28-2023 End: 82-87-0635SQXZBPYTTV PROTEIN, SERUM (BLOOD)[facility] Work Phone: Comment on above:Expected: 08/28/2023, Expires: 11/27/2023Start: 08-28-2023 End: 31-19-9986MUNX ELECT SERUM WITH TOÑITO AND INTERPCLakeHealth Beachwood [facility] Center Work Phone: Comment on above:Expected: 08/28/2023, Expires: 11/27/2023Start: 85-57-2229Igyss-19 Vaccine ()Covid-19 Vaccine ()[facility]ustart: 55-69-0380Fdtoitfxd vaccination [facility]ustart: 90-21-6986Ayqdd depression screening assessmentDEPRESSION SCREENINGTrinity Health System East Campustart: 03-06-2023 End: 54-53-0334SNX W Auto Differential panel - BloodCBC + DIFF Lab Routine Multiple myeloma not having achieved remission (HCC) Expected: 03/06/2023, Ex jamie: 05/06/2023[facility] Work Phone: Comment on above:Expected: 03/06/2023, Expires: 05/06/2023Start: 03-06-2023 End: 41-56-3624Wjnapcdynywtt metabolic 2000 panel - Serum or PlasmaCOMP METABOLIC PANEL Lab Routine Multiple myeloma not having achieved remission (HCC) Expected: 03/06/2023, Expires: 05/06/2023[facility] Work Phone: Comment on above:Expected: 03/06/2023, Expires: 05/06/2023Start: 03-06-2023 End: 33-70-0465RBIKHLDILE PROTEIN, SERUM (BLOOD)MONOCLONAL PROTEIN, SERUM (BLOOD) Lab Routine Multiple myeloma not having achieved remission (HCC) E xpected: 03/06/2023, Expires: 05/06/2023[facility] Work Phone: Comment on above:Expected: 03/06/2023, Expires: 05/06/2023Start: 03-06-2023 End: 83-92-9174RERX ELECT SERUM WITH TOÑITO AND INTERPPROT ELECT SERUM WITH TOÑITO AND INTERP Lab Routine Multiple myeloma not having achieved remission (HCC) Expected: 03/06/2023, Expires: 05/06/2023[facility] Work Phone: Comment on above:Expected: 03/06/2023, Expires: 05/06/2023Start: 12-05-2022 End: 42-65-1038QUJ W Auto Differential panel - BloodCBC + DIFF Lab Routine Multiple myeloma not having achieved remission (HCC) Expected: 12/05/2022, Ex jamie: 02/04/2023[facility] Work Phone: Comment on above:Expected: 12/05/2022, Expires: 02/04/2023Start: 12-05-2022 End: 47-85-0212Wetxsscledzjc metabolic 2000 panel - Serum or PlasmaCOMP METABOLIC PANEL Lab Routine Multiple myeloma not having achieved remission (HCC) Expected: 12/05/2022, Expires: 02/04/2023[facility] Work Phone: Comment on above:Expected: 12/05/2022, Expires: 02/04/2023Start: 12-05-2022 End: 12-14-5363BNWCRRZKZB PROTEIN, SERUM (BLOOD)MONOCLONAL PROTEIN, SERUM (BLOOD) Lab Routine Multiple myeloma not having achieved remission (HCC) E xpected: 12/05/2022, Expires: 02/04/2023[facility] Work Phone: Comment on above:Expected: 12/05/2022, Expires: 02/04/2023Start: 12-05-2022 End: 94-11-8618WWPC ELECT SERUM WITH TOÑITO AND INTERPPROT ELECT SERUM WITH TOÑITO AND INTERP Lab Routine Multiple myeloma not having achieved remission (HCC) Expected: 12/05/2022, Expires: 02/04/2023[facility] Work Phone: Comment on above:Expected: 12/05/2022, Expires: 02/04/2023Start: 27-31-8555ZKBFLFA DIRECTIVE DISCUSSIONADVANCE DIRECTIVE DISCUSSIONCledayton osteopathic hospital ClinicStart: 21-83-3225YUDNWYVJLW ASSESSMENTDEPRESSION ASSESSMENTTrinity Health System East Campustart: 09-12-2022 End: 42-34-4804AVN W Auto Differential panel - BloodCBC + DIFF Lab Routine Multiple myeloma not having achieved remission (HCC) Paget disease of bone Type 2 diabetes mellitus without complication, with long-term current use of insulin (HCC) Elevated prostate specific antigen (PSA) Expected: 09/12/2022, Expires: 11/12/2022[facility] Work Phone: Comment on above:Expected: 09/12/2022, Expires: 11/12/2022Start: 09-12-2022 End: 73-54-9184Fvnimcpdymjus metabolic 2000 panel - Serum or PlasmaCOMP METABOLIC PANEL Lab Routine Multiple myeloma not having achieved remission (HCC) Paget diseaseof bone Type 2 diabetes mellitus without complication, with long- term current use of insulin (HCC) Elevated prostate specific antigen (PSA) Expected: 09/12/2022, Expires: 11/12/2022[facility] Work Phone: Comment on above:Expected: 09/12/2022, Expires: 11/12/2022Start: 09-12-2022 End: 92-08-3881WSDRGYJWPM PROTEIN, SERUM (BLOOD)MONOCLONAL PROTEIN, SERUM (BLOOD) Lab Routine Multiple myeloma not having achieved remission (HCC) Paget disease of bone Type 2 diabetes mellitus without complication, with long-term current use of insulin (HCC) Elevated prostate specific antigen (PSA) Expected: 09/12/2022, Expires: 11/12/2022[facility] Work Phone: Comment on above:Expected: 09/12/2022, Expires: 11/12/2022Start: 09-12-2022 End: 98-15-1988KPXG ELECT SERUM WITH TOÑITO AND INTERPPROT ELECT SERUM WITH TOÑITO AND INTERP Lab Routine Multiple myeloma not having achieved remission (HCC) Paget disease of bone Type 2 diabetes mellitus without complication, with long-term current use of insulin (HCC) Elevated prostate specific antigen (PSA) Expected: 09/12/2022, Expires: 11/12/2022[facility] Work Phone: Comment on above:Expected: 09/12/2022, Expires: 11/12/2022Start: 76-34-8053Lxbkk depression screening assessmentDEPRESSION SCREENINGTrinity Health System East Campustart: 75-63-0642TBKVQ-19 VACCINE (7 - Mixed Product risk series)COVID-19 VACCINE (7 - Mixed Product risk series)[facility] Start: 06-16-2022 End: 87-68-5707CQD W Auto Differential panel - BloodCBC + DIFF Lab Routine Multiple myeloma not having achieved remission (HCC) Expected: 06/16/2022, Ex jamie: 08/16/2022[facility] Work Phone: Comment on above:Expected: 06/16/2022, Expires: 08/16/2022tart: 06-16-2022 End: 67-00-0336Oyvedlgmnmzxe metabolic 2000 panel - Serum or PlasmaCOMP METABOLIC PANEL Lab Routine Multiple myeloma not having achieved remission (HCC) Expected: 06/16/2022, Expires: 08/16/2022[facility] Work Phone: Comment on above:Expected: 06/16/2022, Expires: 08/16/2022tart: 06-16-2022 End: 25-22-9388IXXUPZQEWI PROTEIN, SERUM (BLOOD)MONOCLONAL PROTEIN, SERUM (BLOOD) Lab Routine Multiple myeloma not having achieved remission (HCC) E xpected: 06/16/2022, Expires: 08/16/2022[facility] Work Phone: Comment on above:Expected: 06/16/2022, Expires: 08/16/2022tart: 06-16-2022 End: 72-06-0806LXNK ELECT SERUM WITH TOÑITO AND INTERPPROT ELECT SERUM WITH TOÑITO AND INTERP Lab Routine Multiple myeloma not having achieved remission (HCC) Expected: 06/16/2022, Expires: 08/16/2022[facility] Work Phone: Comment on above:Expected: 06/16/2022, Expires: 08/16/2022tart: 18-79-5344Pdzqxfbot vaccinationINFLUENZA (#1)[facility] Start: 80-92-0712VFPRB-19 VACCINE (5 - Booster)COVID-19 VACCINE (5 - Booster) [facility]ustart: 03-23-2022 End: 34-30-7591FGF W Auto Differential panel - BloodCBC + DIFF Lab Routine Multiple myeloma not having achieved remission (HCC) Expected: 03/23/2022, Ex jamie: 05/23/2022[facility] Work Phone: Comment on above:Expected: 03/23/2022, Expires: 05/23/2022tart: 03-23-2022 End: 37-70-9560Jzoyslesraebt metabolic 2000 panel - Serum or PlasmaCOMP METABOLIC PANEL Lab Routine Multiple myeloma not having achieved remission (HCC) Expected: 03/23/2022, Expires: 05/23/2022[facility] Work Phone: Comment on above:Expected: 03/23/2022, Expires: 05/23/2022tart: 03-23-2022 End: 33-45-3010TTIVPGSQTY PROTEIN, SERUM (BLOOD)MONOCLONAL PROTEIN, SERUM (BLOOD) Lab Routine Multiple myeloma not having achieved remission (HCC) E xpected: 03/23/2022, Expires: 05/23/2022[facility] Work Phone: Comment on above:Expected: 03/23/2022, Expires: 05/23/2022tart: 03-23-2022 End: 07-70-3526BOQJ ELECT SERUM WITH TOÑITO AND INTERPPROT ELECT SERUM WITH TOÑITO AND INTERP Lab Routine Multiple myeloma not having achieved remission (HCC) Expected: 03/23/2022, Expires: 05/23/2022[facility] Work Phone: Comment on above:Expected: 03/23/2022, Expires: 05/23/2022tart: 33-73-4166KNJHC-19 VACCINE (5 - Booster)COVID-19 VACCINE (5 - Booster)[facility]: 56-68-9173HVDOU-19 VACCINE (4 - Booster)COVID-19 VACCINE (4 - Booster)[facility]: 42-95-7071FBKDCGI DIRECTIVE DISCUSSIONADVANCE DIRECTIVE DISCUSSIONTrinity Health System East Campustart: 09-24-2021 DEPRESSION ASSESSMENTDEPRESSION ASSESSMENTTrinity Health System East Campustart: 28-56-9760Bupv Risk ScreeningFall Risk ScreeningProUniversity Hospitals Lake West Medical Centertart: 2012 PNEUMOVAX AGE 65 AND OVER WITH 5YR LOOKBACK (#1)PNEUMOVAX AGE 65 AND OVER WITH 5YR LOOKBACK (#1)[facility]ustart: 6153Rhgiscatr B Vaccine (1 of 3 - Risk 3-dose series)Hepatitis B Vaccine (1 of 3 - Risk 3-dose series)[facility]: 01-43-7206AEG Vaccine (1 - 1-dose 60+ series)RSV Vaccine (1 - 1- dose 60+ series)[facility]: 62-79-5257Situjjwwntvpij of varicella zoster vaccineZoster (Shingles) Vaccine (1 of 2)[facility]: 63-36-2196UPIOGQZV VACCINE (1 of 2)SHINGRIX VACCINE (1 of 2)[facility] Start: 19-11-3590RCJAIOTRD (FIT-DNA)COLOGUARD (FIT-DNA)[facility]: 38-83-1175NbqwggnmdxvBGVUKNZCVWVJitodkdix ClinicStart: 25-58-2036MXQDOCJCNG CANCER SCREENINGCOLORECTAL CANCER SCREENINGTrinity Health System East Campustart: 10-48-0900YD COLONOGRAPHYCT COLONOGRAPHYTrinity Health System East Campustart: 21-72-3764TUHQN OCCULT BLOOD FECAL OCCULT BLOODTrinity Health System East Campustart: 98-18-9035NGOULPYPPLTJINZXSAKYGGBQOL [facility]ustart: 06-13-6377MMhC,Tdap and Td Vaccines (1 - Tdap)DTaP,Tdap and Td Vaccines (1 - Tdap)[facility]: 63-74-9189Bzmyfxbuwmgm Vaccine: 50+ (1 of 2 - PCV)Pneumococcal Vaccine: 50+ (1 of 2 - PCV)[facility]art: 22-46-9695JQUYFQOK VACCINE (1 of 2)SHINGRIX VACCINE (1 of 2) [facility]art: 52-83-6130Lnugi microalbumin profileMarion Hospital Start: 63-49-8958TANZOX PCP TEAM CHRONIC DISEASE VISITANNUAL PCP TEAM CHRONIC DISEASE VISITTrinity Health System East Campustart: 21-01-1139Gffnkvz ScreeningAnxiety Screening [facility]ustart: 82-12-4610Xewlllstha ScreeningDepression Screening [facility]ustart: 81-29-7751Tnbpuucrv B surface antibody levelLDL CHOLESTEROLTrinity Health System East Campustart: 81-84-5044XZQDFYGME C SCREENINGHEPATITIS C SCREENINGTrinity Health System East Campustart: 02-79-6487Hncztsbfk C screeningHepatitis C ScreeningTrinity Health System East Campustart: 83-23-8970Afppsmrmpc ScreeningDepression ScreeningScionHealthtart: comp foot exam completed DIABETIC FOOT EXAMTrinity Health System East Campustart: 47-71-3106Beodzleb foot examination Diabetic Foot ExamTrinity Health System East Campustart: 67-54-8212Ofpambhy screeningDilated Retinal ExamTrinity Health System East Campustart: 66-57-7871Zwhlkeggj B screeningURINE ALBUMIN:CREATININE RATIOTrinity Health System East Campustart: 66-97-6886Ypohgdmsc C antibody, confirmatory testDILATED RETINAL EXAMTrinity Health System East Campustart: 1951 Pneumococcal Vaccine: 65+ (1 - PCV)Pneumococcal Vaccine: 65+ (1 - PCV)[facility]: 28-48-2906Jbldpjrgwoku Vaccine: 65+ (1 of 2 - PCV)Pneumococcal Vaccine: 65+ (1 of 2 - PCV)[facility]art: 03-76-1956BPLIPTEGRUCT: 65+ (1 - PCV)PNEUMOCOCCAL: 65+ (1 - PCV)[facility]: 88-27-5739Ymgbfasqco A1c jfrliftwgrtFaQ4OCzwqxwfhc ClinicStart: 32-69-5515Fzandftiwv A1c/Hemoglobin.total in VbkxeXQR1KArphwsdwk ClinicStart: 07-41-1950ODEYJJMCS AORTIC ANEURYSM SCREENINGABDOMINAL AORTIC ANEURYSM SCREENINGOhioHealth Mansfield Hospital Immunizations Immunization DateImmunizationNotesCare IeutxklgDhnynxha55-57-5390bcswaxlmykb syncytial virus (RSV) vaccine, bivalent (ABRYSVO)Chair Lois Work Phone: [facility] HospitalXvdpjs64-11-9744NDMTY-52 vaccine (UNSPECIFIED)Porsche Adame [facility] Work Phone: [facility] HospitalBaqlzf76-44-9200TIGJU-54 vaccine, age 12+ yr (PFIZER-[facility]CH - [facility])Porsche Adame [facility] Work Phone: [facility] HospitalIghaej71-14-8910erxtmernd, high-dose, quadrivalent vaccine (FLUZONE HIGH DOSE QUADRIVALENT)Porsche Adame [facility] Work Phone: [facility] HospitalJgnmgk81-78-8035mvifjbnvh virus vaccine, unspecified formulationAinsley Woodson [facility] Work Phone: [facility] HospitalNcxjsu58-48-9755WHYXY-57 vaccine, age 12+ yr (P[facility]ER[facility] - [facility])Porsche Adame [facility] Work Phone: [facility] HospitalYjrive54-83-1946FRAKW-82 vaccine, age 12+ yr ([facility] Work Phone: [facility] HospitalIyozfi82-94-1149Meachfwh trivalent influenza vaccine, adjuvanted, preservative freeSaint Mary'S Regional Medical Centerceline [facility] Work Phone: [facility] HospitalZipovh62-49-8174eiqzbjikx virus vaccine, unspecified formulationPorsche [facility] Work Phone: [facility] Payers DatePayer CategoryPayerPolicy ID2012MedicareMEDICARE MEDICARE A AND B [id number] 2012-Present [phone] [address] [address] [place] [address] [id number] 2012Medicare [id number] Health InsuranceG[facility] Member Subscriber Plan / Payer (Effective 2012- Present) Name: Zach Manuel Relation to Subscriber: Self Name: Zach Manuel Payer ID: Not on file Group ID: Not on file Type: Semaj Address: [address] [id number] UnknownFORE THOUGHT LIFE INSURANCE FORETHOUGHT SUPPLEMENT [id number] 2012- [phone] [address] [id number]22AxqkhfrTTEZ THOUGHT LIFE INSURANCE FORETHOUGHT SUPPLEMENT [id number] 2012- [phone] [place] [address] [id number] [id number] [id number] 1947Unknown [id number] 2.1.666079.3.57[id number] .1.766618.3.57[id number] .1.581419.3.57[id number] .1.793416.3.57[id number] .1.675312.3.57[id number] 2.1.547922.3.57[id number] 2.16840.1.457937.3.57[id number] 2.16840.1.508408.3.57[id number] 2.16840.1.046526.3.57[id number] 2.840.1.325195.3.57[id number] 2.0.1.768130.3.57[id number] 2.0.1.982046.3.57[id number] 2.0.1.349430.3.57[id number] 2.0.1.294921.3.57[id number] 2.840.1.891507.3.57[id number] 2.0.1.218967.3.57[id number] 2.0.1.171855.3.57[id number] 2.840.1.927748.3.57[id number] 2.0.1.829450.3.579.2.727Managed Care Other (unspecified) [id number] Social History DateTypeDetailFacilityStart: 66-79-9561Fgernlp smoking status NHISEx-smoker [facility] Work Phone: Start: 09-24-1958 End: 74-64-8448Omxwizp of tobacco useCurrent smokerMarion Hospital Work Phone: Start: [birth year]-24-1958 End: 73-92-8347Geuppcy of tobacco useCigarette SmokerMarion Hospital Work Phone: Start: 11-28-2021 End: 20-83-1761Dsjomje intakeCurrent non-drinker of alcohol (finding)[facility]: 83-55-3887Qyb Assigned At BirthNot on fileTrinity Health System East Campustart: 01-14-2022 End: 90-36-8612Xtcdswvn to SARS-CoV-2 (event)Not sureTrinity Health System East Campustart: 10-20-2015 End: 84-41-0672Cjeqnbfpfc smoked current (pack per day) - Gbmgfnno4Icrwvzjtd ClinicStart: 10-20-2015 End: 85-51-1027Khzyzqm use and exposureSmokeless tobacco non-userTrinity Health System East Campustart: 03-21-2022 End: 98-77-3481Njvnrgh use panelMarion HospitalNational Score (1-100), lower number is lower inix29HxvvkhfauTrinity Health System East Campustart: 99-57-9581Dfetrhv smoking status NHISNever smoked tobaccoProMiami Valley Hospital SystemStart: 10-09-2024 End: 91-64-5395Hhukgyedk beverage intakeEx-drinker (finding)[facility]: 97-40-1085NquAqfh (finding)[facility] Medical Equipment Procedure CodeEquipment CodeEquipment Original TextEquipment IdentifierDatesLens Iol Sy60wf.195 [facility] [id number] - [id number] - [id number]: 12-28-4047Tobe Iol Sy60wf.215 [facility] Rpl [id number] - [id number] - [id number]: 11-20-2024 Functional Status VsojLiblipfgtiAoyneeMvaucgnr03-21-1032Ali you deaf, or do you have serious difficulty hearingNo 04/09/2015 11:20 AM [facility] [address] [address] Selin Stapleton [facility] 05-76-2603Ftu you blind, or do you have serious difficulty seeing, even when wearing glassesNo 04/09/2015 11:20 AM Selin Sierra [facility] 21-14-2171Jg you have serious difficulty walking or climbing stairsNo 04/09/2015 11:20 AM Selin Sierra [facility]07-17-2015Do you have difficulty dressing or bathingNo 04/09/2015 11:20 AM [facility] [address] Selin [facility]apleton [facility] CenterLwzgga75-20-5955Avioshm of a physical, mental, or emotional condition, do you have difficulty doing errands alone such as visiting a physician's office or shoppingNo 04/09/2015 11:20 AM [facility] [address] Selin Stapleton [facility] Mental Status MekhCmguhlhknmYypqhrPwiefkkk66-10-4151Uffgihw of a physical, mental, or emotional condition, do you have serious difficulty concentrating, remembering, or making decisionsNo 04/09/2015 11:20 AM [facility] [address] Selin Stapleton [facility] Clinical Notes 01-24-2022 to 02-19-2025 Note Date & IojbXlpbJnsiyzyk71-13-3468 Telephone encounter Note* Telephone Encounter - Bozena Roland RN - 02/19/2025 12:19 PM EDT Pt informed of BRM message, once verified, using 2 patient identifiers. Patient denies any questions, needs or concerns at this time. Appointment verified. Bozena Roland RN [facility]05-29-2025 Miscellaneous Notes* Telephone Encounter - Bozena Roland RN - 02/19/2025 12:19 PM EDT Pt informed of BRM message, once verified, using 2 patient identifiers. Patient denies any questions, needs or concerns at this time. Appointment verified. Bozena Roland RN documented in this encounterMarion Hospital05-26-2025 NoteHNO ID: [id number] Author: URIEL GUNTER MD Service: ? Author [...] mellitus (HCC) Hyperlipidemia Monoclonal gammopathy 11/2002 IgG [place] Multiple myeloma (HCC) 2002 Ulcerative colitis (HCC) [...] for metastases. 08/18/2019 - Bone survey at [facility] Conclusion: Scattered lytic lesions, stable in num (more content not included)...[facility]05-26-2025 History of Present illness Narrative* Uriel [...] mellitus (HCC) Hyperlipidemia Monoclonal gammopathy 11/2002 IgG [place] Multiple myeloma (HCC) 2002 Ulcerative colitis (HCC) [...] for metastases. 08/18/2019 - Bone survey at [facility] Conclusion: Scattered lytic lesions, stable in number and size from prior exams. 05/06/2018 - Bone Survey at [facility] Scattered lytic lesions, stable in both number [...] worsens. Uriel Gunter MD documented in this encounterMarion Hospital02-26-2025 Nurse Note* Perioperative Nursing Note - Nilam Ortiz RN - 11/19/2024 10:32 AM EST Preoperative Education Checklist- General Surgery date: 11/20/24 Surgery time: 945a Arrival time: 745a 1. Bring a photo ID and your insurance card with you the day of surgery. You will check in at the main lobby of the [facility]- registration desk is straight ahead as soon as you walk in. Tell them you are here for surgery. 2. If you have a Living Will/Durable Power of Business Services Assistant for Health Care that is not on [...] after you have bathed. 5. NO nail cambodian/acrylic on at least one finger. If you are having a hand, wrist or foot surgery then all nail cambodian and artificial/acrylic nails must be removed from [...] please call the Preadmission Testing office at [phone], Mon.-Fri. 7 a.m.-3 p.m. Leave a voicemail [...] Stop taking 0 days prior to procedure [facility]02-26-2025 Miscellaneous Notes* Perioperative Nursing Note - Nilam Ortiz RN - 11/19/2024 10:32 AM EST Preoperative Education Checklist- General Surgery date: 11/20/24 Surgery time: 945a Arrival time: 745a 1. Bring a photo ID and your insurance card with you the day of surgery. You will check in at the main lobby of the [facility]- registration desk is straight ahead as soon as you walk in. Tell them you are here for surgery. 2. If you have a Living Will/Durable Power of Business Services Assistant for Health Care that is not on [...] after you have bathed. 5. NO nail cambodian/acrylic on at least one finger. If you are having a hand, wrist or foot surgery then all nail cambodian and artificial/acrylic nails must be removed from [...] please call the Preadmission Testing office at [phone], Mon.-Fri. 7 a.m.-3 p.m. Leave a voicemail [...] to procedure documented in this encounterMer[facility]01-[facility]25 Telephone encounter Note* Telephone Encounter - Ainsley Woodson RP - 10/10/2024 9:25 AM EST Zach called requesting a refill on his revlimid. He is on his off week starting 10/11/24 and would like the script shipped to his house. Thank you- Dustin Woodson PharmD, JUANOP [facility] Work Phone: [phone] Miscellaneous Notes* Telephone Encounter - Ainsley Woodson RPh - 10/10/2024 9:25 AM EST Zach called requesting a refill on his revlimid. He is on his off week starting 10/11/24 and would like the script shipped to his house. Thank you- Dustin Woodson PharmD, BCOP documented in this encounterMarion Hospital01-16-2025 Instructions* Patient Instructions* Nilam Ortiz RN - 10/09/2024 9:45 AM EST Preoperative Education Checklist- General Surgery date: 10/30/24 Surgery time: 945a Arrival time: 745a 1. Bring a photo ID and your insurance card with you the day of surgery. You will check in at the main lobby of the [facility]- registration desk is straight ahead as soon as you walk in. Tell them you are here for surgery. 2. If you have a Living Will/Durable Power of Business Services Assistant for Health Care that is not on [...] after you have bathed. 5. NO nail cambodian/acrylic on at least one finger. If you are having a hand, wrist or foot surgery then all nail cambodian and artificial/acrylic nails must be removed from [...] please call the Preadmission Testing office at [phone], Mon.-Fri. 7 a.m.-3 p.m. Leave a voicemail [...] to procedure documented in this encounterMer[facility]09-05-2024 Telephone encounter Note* Telephone Encounter - Juan Ferguson RN - 05/29/2024 12:22 PM EDT Pt and spouse notified and verbalizes understanding. Juan Ferguson RN [facility] Work Phone: [phone] 453-341409-05-2024 Miscellaneous Notes* Telephone Encounter - Juan Ferguson RN - 05/29/2024 12:22 PM EDT Pt and spouse notified and verbalizes understanding. Juan Ferguson RN * Telephone Encounter - Juan Ferguson RN - 05/29/2024 12:21 PM EDT ----- Message from Latrice Hilario PA-C sent at 05/29/2024 11:58 AM EDT ----- Please call with stable myeloma labs documented in this encounterMarion Hospital09-05-2024 Telephone encounter Note * Telephone Encounter - Juan Ferguson RN - 05/29/2024 12:21 PM EDT ----- Message from Latrice Hilario PA-C sent at 05/29/2024 11:58 AM EDT ----- Please call with stable myeloma labs [facility]09-03-2024 Telephone encounter Note* Telephone Encounter - Juan Ferguson RN - 05/27/2024 2:23 PM EDT Pt's spouse notified and verbalizes understanding. Juan Ferguson RN [facility] Work Phone: 1(632) 448-501309-03-2024 Miscellaneous Notes* Telephone Encounter - Juan Ferguson RN - 05/27/2024 2:23 PM EDT Pt's spouse notified and verbalizes understanding. Juan Sessler, RN * Telephone Encounter - Latrice Hilario PA-C - 05/27/2024 1:29 PM EDT Please call with a stable kidney function. Latrice Hilario PA-C documented in this encounterMarion Hospital09-03-2024 Telephone encounter Note * Telephone Encounter - Latrice Hilario PA-C - 05/27/2024 1:29 PM EDT Please call with a stable kidney function. Latrice Hilario PA-C [facility] Work Phone: 1(867) 450-935809-03-2024 NoteHNO ID: [id number] Author: LATRICE HILARIO PA-C Service: ? Author Type: Physician [employer] Worker Type: Progress Notes Filed: 05/27/2024 13:29 Note [...] date: Hyperlipidemia 11/2002: Monoclonal gammopathy Comment: IgG Pack[place] 2003: Multiple myeloma (HCC) No date: Ulcerative [...] for metastases. 08/18/2019 - Bone survey at [facility] Conclusion: Scattered lytic lesions, stable in number and size from prior exams. 05/06/2018 - [place] (more content not included)...[facility] 05-27-[facility] History of Present illness Narrative* [...] date: Hyperlipidemia 11/2002: Monoclonal gammopathy Comment: IgG [place] 2002: Multiple myeloma (HCC) No date: Ulcerative [...] for metastases. 08/18/2019 - Bone survey at [facility] Conclusion: Scattered lytic lesions, stable in number and size from prior exams. 05/06/2018 - Bone Survey at [facility] Scattered lytic lesions, stable in both number [...] which included preparing to see the patient, rizy-sn-sfof patient care, completing clinical documentation, performing a medically appropriate examination, counseling and educating the patient/family/caregiver, ordering medications, tests, or p rocedures, independently interpreting results (not separately reported), communicating results to the patient/family/caregiver, and care coordination (not separately reported). documented in this encounterMarion Hospital08-27-2024 Telephone encounter Note * Telephone Encounter - Irma Talavera MA - 05/20/2024 10:35 AM EDT Patient has an appt on 05/27/24. Would you like labs, if so place orders. Irma Talavera MA [facility]08-27-2024 Miscellaneous Notes* Telephone Encounter - Irma Fitzgerald MA - 05/20/2024 10:35 AM EDT Patient has an appt on 05/27/24. Would you like labs, if so place orders. Irma Talavera MA documented in this encounterMarion Hospital06-07-2024 Telephone encounter Note * Telephone Encounter - Juan Ferguson RN - 02/29/2024 8:52 AM EDT Pt notified and verbalizes understanding. Juan Ferguson RN [facility] Work Phone: 1(970) 988-297406-07-2024 Telephone encounter Note* Telephone Encounter - Juan Ferguson RN - 02/29/2024 8:52 AM EDT ----- Message from Latrice Hilario PA-C sent at 02/29/2024 8:10 AM EDT ----- Please let patient know his labs are stable and we will continue to monitor [facility]06-07-2024 Miscellaneous Notes* Telephone Encounter - Juan [...] will continue to monitor documented in this encounterMarion Hospital06-03-2024 NoteHNO ID: [id number] Author: URIEL GUNTER MD Service: ? Author [...] mellitus (HCC) Hyperlipidemia Monoclonal gammopathy 11/2002 IgG [place] Multiple myeloma (HCC) 2002 Ulcerative colitis (HCC) [...] lesions s (more content not included)... [facility] History of Present illness Narrative* Uriel [...] mellitus (HCC) Hyperlipidemia Monoclonal gammopathy 11/2002 IgG [place] Multiple myeloma (HCC) 2002 Ulcerative colitis (HCC) [...] for metastases. 08/18/2019 - Bone survey at [facility] Conclusion: Scattered lytic lesions, stable in number and size from prior exams. 05/06/2018 - Bone Survey at [facility] Scattered lytic lesions, stable in both number [...] worsens. Uriel Gunter MD documented in this encounterMarion Hospital03-05-2024 History of Present illness Narrative* Becca Lane APRN.BONUS CLERK - 11/27/2023 1:08 PM EST PATIENT NAME: [...] 2 DROPS INTO AFFECTED EYE 4 TIMESDAILY qazopqer-vmpgickju-bqazqqmwblcyxx (CORTISPORIN) otic solution INSTILL 3 4 DROPS [...] mellitus (HCC) Hyperlipidemia Monoclonal gammopathy 11/2002 IgG [place] Multiple myeloma (HCC) 2002 Ulcerative colitis (HCC) [...] for metastases. 08/18/2019 - Bone survey at [facility] Conclusion: Scattered lytic lesions, stable in number and size from prior exams. 05/06/2018 - Bone Survey at [facility] Scattered lytic lesions, stable in both number [...] which included preparing to see the patient, sval-lp-ienf patient care, completing clinical documentation, obtaining and/or reviewing separately obtained history, performing a medically appropriate examination, counseling and educating the pat ient/family/caregiver, ordering medications, tests, or procedures, independently interpreting results (not separately reported), and communicating results to the patient/family/caregiver. documented in this encounterMarion Hospital03-01-2024 Miscellaneous Notes* Telephone Encounter - Monica Baptiste - 11/23/2023 11:56 AM EST Patient has an appt on 11/26. Would you like labs? documented in this encounterMarion Hospital12-05-2023 History of Present illness Narrative* Ureil Gunter MD - 08/28/2023 7:12 AM EST [...] 2 DROPS INTO AFFECTED EYE 4 TIMESDAILY lanornqt-xmjhpwpdk-bcnxajpdhnolln (CORTISPORIN) otic solution INSTILL 3 4 DROPS [...] mellitus (HCC) Hyperlipidemia Monoclonal gammopathy 11/2002 IgG [place] Multiple myeloma (HCC) 2002 Ulcerative colitis (HCC) [...] for metastases. 08/18/2019 - Bone survey at [facility] Conclusion: Scattered lytic lesions, stable in number and size from prior exams. 05/06/2018 - Bone Survey at [facility] Scattered lytic lesions, stable in both number [...] worsens. Uriel Gunter MD documented in this encounterMarion Hospital09-07-2023 Miscellaneous Notes* Telephone Encounter - Bozena [...] will continue as planned. documented in this encounterMarion Hospital09-05-2023 History of Present illness Narrative* Uriel [...] 2 DROPS INTO AFFECTED EYE 4 TIMESDAILY qyzeudwp-idgmjvogc-qakvoragfnemph (CORTISPORIN) otic solution INSTILL 3 4 DROPS [...] mellitus (HCC) Hyperlipidemia Monoclonal gammopathy 11/2002 IgG [place] Multiple myeloma (HCC) 2002 Ulcerative colitis (HCC) [...] for metastases. 08/18/2019 - Bone survey at [facility] Conclusion: Scattered lytic lesions, stable in number and size from prior exams. 05/06/2018 - Bone Survey at [facility] Scattered lytic lesions, stable in both number [...] worsens. Uriel Gunter MD documented in this encounterMarion Hospital06-06-2023 Miscellaneous Notes* Telephone Encounter - Monica Baptiste - 02/27/2023 3:42 PM EDT Patient has an OTV appointment on 03/06. Please place lab orders. Monica Baptiste documented in this encounterMarion Hospital03-14-2023 History of Present illness Narrative* Uriel [...] 2 DROPS INTO AFFECTED EYE 4 TIMESDAILY zwbyxvbo-hmhsabbch-rbegasosaskkuk (CORTISPORIN) otic solution INSTILL 3 4 DROPS [...] mellitus (HCC) Hyperlipidemia Monoclonal gammopathy 11/2002 IgG [place] Multiple myeloma (HCC) 2002 Ulcerative colitis (HCC) [...] for metastases. 08/18/2019 - Bone survey at [facility] Conclusion: Scattered lytic lesions, stable in number and size from prior exams. 05/06/2018 - Bone Survey at [facility] Scattered lytic lesions, stable in both number [...] PCP/urology. Uriel Gunter MD documented in this encounterMarion Hospital03-06-2023 Miscellaneous Notes* Addendum Note - Uriel Gunter MD - 11/27/2022 1:06 PM ESTAddended by: URIEL GUNTER on: 11/27/2022 01:06 PM Modules accepted: Orders * Telephone Encounter - Selin Stapleton - 11/27/2022 10:49 AM EST Patient coming in on Sunday12/05/22 for follow up treatment. Please add lab orders. Thanks, Selin Stapleton MA documented in this encounterMarion Hospital12-29-2022 Miscellaneous Notes* Telephone Encounter - Ainsley Woodson [facility] - 09/21/2022 4:31 PM EST Please sign in everyone's absence. Thank you Dustin Woodson [facility] documented in this encounterMarion Hospital12-20-2022 History of Present illness Narrative* Uriel [...] 2 DROPS INTO AFFECTED EYE 4 TIMESDAILY ofdcfxlo-hztcljauu-hhohfqkzkhybxu (CORTISPORIN) otic solution INSTILL 3 4 DROPS [...] mellitus (HCC) Hyperlipidemia Monoclonal gammopathy 11/2002 IgG [place] Multiple myeloma (HCC) 2002 Ulcerative colitis (HCC) [...] for metastases. 08/18/2019 - Bone survey at [facility] Conclusion: Scattered lytic lesions, stable in number and size from prior exams. 05/06/2018 - Bone Survey at [facility] Scattered lytic lesions, stable in both number [...] PCP/urology. Uriel Gunter MD documented in this encounterMarion Hospital09-27-2022 History of Present illness Narrative* Ese Ferro RN - 06/20/2022 3:21 PM EDT Recommendations per pharmacist Humaira Woodson [facility] for patient to take calcium with Vit D 1 tab twice daily especially as his calcium levels normally run low. Patient education complete with printed material. Questions answered as appropriate. He was encouraged to call with questions or concerns. Ese Ferro RN documented in this encounterMarion Hospital09-27-2022 History of Present illness Narrative* Becca [...] 2 DROPS INTO AFFECTED EYE 4 TIMESDAILY sgnsljsq-yrpvtztjf-rytwwnhnhwvhue (CORTISPORIN) otic solution INSTILL 3 4 DROPS [...] mellitus (HCC) Hyperlipidemia Monoclonal gammopathy 11/2002 IgG [place] Multiple myeloma (HCC) 2002 Ulcerative colitis (HCC) [...] for metastases. 08/18/2019 - Bone survey at [facility] Conclusion: Scattered lytic lesions, stable in number and size from prior exams. 05/06/2018 - Bone Survey at [facility] Scattered lytic lesions, stable in both number [...] if the PSA worsen significantly. Becca Lane APRN.BONUS CLERK documented in this encounterMarion Hospital09-27-2022 Miscellaneous Notes* Telephone Encounter - Juan Ferguson RN - 06/20/2022 8:56 AM EDT Pt due for Aredia today. Pharmacy suggests checking pt's Calcium level w/ today's labs. Order pended. Juan Ferguson RN documented in this encounterMarion Hospital09-23-2022 Miscellaneous Notes* Telephone Encounter - Becca Lane APRN.CNP - 06/16/2022 3:17 PM EDT Please sign for Dr. Gunter since he is out of the office. Thanks, Becca Lane APRN.CNP documented in this encounterMarion Hospital09-22-2022 Miscellaneous Notes* Telephone Encounter - Monica Baptiste - 06/15/2022 2:38 PM EDT Patient has an appt on 06/20. Would you like labs? documented in this encounterMarion Hospital07-28-2022 Miscellaneous Notes* Telephone Encounter - Uriel Gunter MD - 04/20/2022 11:45 AM EDT Signed documented in this encounterMarion Hospital07-06-2022 Miscellaneous Notes* Telephone Encounter - Quita Antoine RPh - 2022 3:29 PM EDT New benjamin obtained through [employer] for $[id number] on ID# [id number] Enrollment 02/27/2022 through 02/26/2023 documented in this encounterMarion Hospital07-01-2022 Miscellaneous Notes* Telephone Encounter - Funmilayo [...] as planned. TAYLOR Avery documented in this encounterMarion Hospital06-28-2022 History of Present illness Narrative* Uriel [...] 2 DROPS INTO AFFECTED EYE 4 TIMESDAILY oeocplvm-gbxfbyhgp-wgyvwqpofxfvbv (CORTISPORIN) otic solution INSTILL 3 4 DROPS [...] mellitus (HCC) Hyperlipidemia Monoclonal gammopathy 11/2002 IgG [place] Multiple myeloma (HCC) 2002 Ulcerative colitis (HCC) [...] for metastases. 08/18/2019 - Bone survey at [facility] Conclusion: Scattered lytic lesions, stable in number and size from prior exams. 05/06/2018 - Bone Survey at [facility] Scattered lytic lesions, stable in both number [...] significantly. Uriel Gunter MD documented in this encounterMarion Hospital06-03-2022 Miscellaneous Notes* Telephone Encounter - Uriel Gunter MD - 02/24/2022 3:24 PM EDT Signed. documented in this encounterMarion Hospital05-03-2022 History of Present illness Narrative* Uriel [...] 2 DROPS INTO AFFECTED EYE 4 TIMESDAILY tsezsrky-yxhnopytr-vaictafybxphlb (CORTISPORIN) otic solution INSTILL 3 4 DROPS [...] mellitus (HCC) Hyperlipidemia Monoclonal gammopathy 11/2002 IgG [place] Multiple myeloma (HCC) 2002 Ulcerative colitis (HCC) [...] RADIOLOGY/OTHER STUDIES: 08/18/2019 - Bone survey at [facility] Conclusion: Scattered lytic lesions, stable in number and size from prior exams. 05/06/2018 - Bone Survey at [facility] Scattered lytic lesions, stable in both number [...] urology. 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 Type 2 diabetes mellitus without complication, with long-term current use of insulin (HCC) H/O ulcerative colitis Personal history of other diseases of digestive system documented in this encounter [facility] [place] [facility]* Diagnosis Multiple myeloma not having achieved remission (HCC)- Primary Multiple myeloma, without mention of having achieved remission 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 Type 2 diabetes mellitus without complication, with long-term current use of insulin (HCC) H/O ulcerative colitis Personal history of other diseases of digestive system Elevated prostate specific antigen (PSA) documented [facility] this encounter [facility] [place] [facility]* Diagnosis Multiple myeloma not having achieved [...] specific antigen (PSA) [facility]* Diagnosis Multiple myeloma not having [...] kidney disease (HCC) documented in this encounter [facility] [place] [facility]* Diagnosis Multiple myeloma not having achieved remission (HCC)- Primary Multiple myeloma, without mention of having achieved remission 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 [facility]* Diagnosis Multiple myeloma not having [...] specific antigen (PSA) documented in this encounter [facility] [place] [facility]* Diagnosis Multiple myeloma not having achieved remission (HCC)- Primary Multiple myeloma, without mention of having achieved remission documented in this encounter [facility] [place] [facility]* Diagnosis Multiple myeloma not having achieved remission (HCC)- Primary Multiple myeloma, without mention of having achieved remission Type 2 diabetes mellitus without complication, with long-term current use of insulin (HCC) documented in this encounter [facility] [place] [facility]* Diagnosis Preop examination- Primary Unspecified pre-operative examination Preop examination Unspecified pre-operative examination [facility] Diagnosis Multiple myeloma not having achieved remission (HCC)- Primary Multiple myeloma, without mention of having achieved remission 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 Rita's Medical CenterResalem [facility] Narrative* [place] Prior Authorization (Routine) - AuthorizedSpecialtyDiagnoses / ProceduresReferred By ContactReferred To Contact Diagnoses Multiple myeloma not having achieved remission (HCC) Paget disease of bone Uriel Gunter MD [address] [place] [address] [place] [address] Phone: tel: fax: Hematology/Oncology [address] [place] [address] [place] [address] Phone: tel: fax: Referral IDStatusReasonStart DateExpiration DateVisits RequestedVisits [id number] [facility] Summary Purpose Family History No Family History Records FoundNo Family History Records FoundNo Family History Records FoundNo Family History Records FoundNo Family History Records FoundNo Family History Records Found Advance Directives No Advanced Directives Records FoundDocuments on File TypeDate RecordedPatient RepresentativeExplanationDurable Power of Business Services Assistant 11/11/2024 8:31 AM Hospital Course Note MR#: [id number] I [facility] Pt. Name: Zach Manuel Admitted: 07/13/2018 [...] complication. [facility] CONSULTATION DURING ADMISSION: Orthopedics. PROCEDURE DURING [...] Reproductive Risk Drug: Use appropriate PPE. New Bag/Syringe/Nwtvbv2506/20/2022 2:14 PM EDT30 mg250 mL/hrMedication OrderMAR ActionAction DateDoseRateSite pamidronate 30 mg in NaCl 0.9% 250 mL (AREDIA) 30 mg, INTRAVENOUS, at 285 mL/hr, Administer over 1 Hours, ONCE, 1 dose, On Sun12/05/22 at 1400, APPROXIMATE TOTAL VOLUME_285mL - 24 HOUR EXP:12/06/2022@1355 Hazardous Potential Reproductive Risk Drug: Use appropriate PPE. New Bag/Syringe/Uskmdi3112/05/2022 2:13 PM EDT30 mg285 mL/hrMedication OrderMAR ActionAction DateDoseRateSite pamidronate 30 mg in NaCl 0.9% 250 mL (AREDIA) 30 mg, INTRAVENOUS, at 250 mL/hr, Administer over 1 Hours, ONCE, 1 dose, On Sun08/28/23 at 1400, APPROXIMATE TOTAL VOLUME_285mL - 24 HOUR EXP:08/29/23 1345 Hazardous Potential Reproductive Risk Drug: Use appropriate PPE. New Bag/Syringe/Trqteq3208/28/2023 2:04 PM EST30 mg250 mL/hr Reason for Referral SpecialtyDiagnoses / ProceduresReferred By ContactReferred To Contact Aiden Hatfield MD [address] [place] [address] Referral IDStatusReasonStart DateExpiration DateVisits RequestedVisits [id number] Additional Source Comments (unrecognized sect ion and content) No Status Records FoundNo Status Records FoundNo Status Records FoundNo Status Records FoundNo Status Records FoundNo Status Records Found INFORMATION SOURCE (unrecogn ized section and content) DATE CREATED AUTHOR 06/06/2019 [facility] DATE CREATED AUTHOR AUTHOR'S ORGANIZ ATION 11/17/2021 [facility] DATE CREATED AUTHOR AUTHOR'S ORGANIZ ATION 09/02/2022 [facility] DATE CREATED AUTHOR AUTHOR'S ORGANIZ ATION 11/21/2024 [facility] DATE CREATED AUTHOR AUTHOR'S ORGANIZ ATION 02/19/2025 [facility] DATE CREATED AUTHOR AUTHOR'S ORGANIZ ATION 07/28/2025 [facility] Source Comments (unrecognize d section and content) In the event this informatio n is protected by the Federal Confidentiality of Alcohol and Drug Abuse Patient Records regulations: The Federal rules restrict any use of the information to criminally investigate or prosecute any alcohol or drug abuse patient.[facility] HospitalIn the event this information is protected by the Federal Confidentiality of Alcohol and Drug Abuse Patient Records regulations: The Federal rules restrict any use of the information to criminally investigate or prosecute any alcohol or drug abuse patient.[facility] HospitalIn the event this information is protected by the Federal Confidentiality of Alcohol and Drug Abuse Patient Records regulations: The Federal rules restrict any use of the information to criminally investigate or prosecute any alcohol or drug abuse patient.[facility] HospitalIn the event this information is protected by the Federal Confidentiality of Alcohol and Drug Abuse Patient Records regulations: The Federal rules restrict any use of the information to criminally investigate or prosecute any alcohol or drug abuse patient.[facility] HospitalIn the event this information is protected by the Federal Confidentiality of Alcohol and Drug Abuse Patient Records regulations: The Federal rules restrict any use of the information to criminally investigate or prosecute any alcohol or drug abuse patient.[facility] HospitalIn the event this information is protected by the Federal Confidentiality of Alcohol and Drug Abuse Patient Records regulations: The Federal rules restrict any use of the information to criminally investigate or prosecute any alcohol or drug abuse patient.[facility] HospitalIn the event this information is protected by the Federal Confidentiality of Alcohol and Drug Abuse Patient Records regulations: The Federal rules restrict any use of the information to criminally investigate or prosecute any alcohol or drug abuse patient.[facility] HospitalIn the event this information is protected by the Federal Confidentiality of Alcohol and Drug Abuse Patient Records regulations: The Federal rules restrict any use of the information to criminally investigate or prosecute any alcohol or drug abuse patient.[facility] HospitalIn the event this information is protected by the Federal Confidentiality of Alcohol and Drug Abuse Patient Records regulations: The Federal rules restrict any use of the information to criminally investigate or prosecute any alcohol or drug abuse patient.[facility] HospitalIn the event this information is protected by the Federal Confidentiality of Alcohol and Drug Abuse Patient Records regulations: The Federal rules restrict any use of the information to criminally investigate or prosecute any alcohol or drug abuse patient.[facility] HospitalIn the event this information is protected by the Federal Confidentiality of Alcohol and Drug Abuse Patient Records regulations: The Federal rules restrict any use of the information to criminally investigate or prosecute any alcohol or drug abuse patient.[facility] HospitalIn the event this information is protected by the Federal Confidentiality of Alcohol and Drug Abuse Patient Records regulations: The Federal rules restrict any use of the information to criminally investigate or prosecute any alcohol or drug abuse patient.[facility] HospitalIn the event this information is protected by the Federal Confidentiality of Alcohol and Drug Abuse Patient Records regulations: The Federal rules restrict any use of the information to criminally investigate or prosecute any alcohol or drug abuse patient.[facility] HospitalIn the event this information is protected [...] or prosecute any alcohol or drug abuse patient.[facility] HospitalIn the event this information is protected by the Federal Confidentiality of Alcohol and Drug Abuse Patient Records regulations: The Federal rules restrict any use of the information to criminally investigate or prosecute any alcohol or drug abuse patient.[facility] HospitalIn the event this information is protected by the Federal Confidentiality of Alcohol and Drug Abuse Patient Records regulations: The Federal rules restrict any use of the information to criminally investigate or prosecute any alcohol or drug abuse patient.[facility] HospitalIn the event this information is protected by the Federal Confidentiality of Alcohol and Drug Abuse Patient Records regulations: The Federal rules restrict any use of the information to criminally investigate or prosecute any alcohol or drug abuse patient.[facility] HospitalIn the event this information is protected by the Federal Confidentiality of Alcohol and Drug Abuse Patient Records regulations: The Federal rules restrict any use of the information to criminally investigate or prosecute any alcohol or drug abuse patient.[facility] HospitalIn the event this information is protected by the Federal Confidentiality of Alcohol and Drug Abuse Patient Records regulations: The Federal rules restrict any use of the information to criminally investigate or prosecute any alcohol or drug abuse patient.[facility] HospitalIn the event this information is protected by the Federal Confidentiality of Alcohol and Drug Abuse Patient Records regulations: The Federal rules restrict any use of the information to criminally investigate or prosecute any alcohol or drug abuse patient.[facility] HospitalIn the event this information is protected by the Federal Confidentiality of Alcohol and Drug Abuse Patient Records regulations: The Federal rules restrict any use of the information to criminally investigate or prosecute any alcohol or drug abuse patient.[facility] HospitalIn the event this information is protected by the Federal Confidentiality of Alcohol and Drug Abuse Patient Records regulations: The Federal rules restrict any use of the information to criminally investigate or prosecute any alcohol or drug abuse patient.[facility] HospitalIn the event this information is protected by the Federal Confidentiality of Alcohol and Drug Abuse Patient Records regulations: The Federal rules restrict any use of the information to criminally investigate or prosecute any alcohol or drug abuse patient.[facility] HospitalIn the event this information is protected by the Federal Confidentiality of Alcohol and Drug Abuse Patient Records regulations: The Federal rules restrict any use of the information to criminally investigate or prosecute any alcohol or drug abuse patient.[facility] HospitalIn the event this information is protected by the Federal Confidentiality of Alcohol and Drug Abuse Patient Records regulations: The Federal rules restrict any use of the information to criminally investigate or prosecute any alcohol or drug abuse patient.[facility] HospitalIn the event this information is protected by the Federal Confidentiality of Alcohol and Drug Abuse Patient Records regulations: The Federal rules restrict any use of the information to criminally investigate or prosecute any alcohol or drug abuse patient.[facility] HospitalIn the event this information is protected by the Federal Confidentiality of Alcohol and Drug Abuse Patient Records regulations: The Federal rules restrict any use of the information to criminally investigate or prosecute any alcohol or drug abuse patient.[facility] HospitalIn the event this information is protected by the Federal Confidentiality of Alcohol and Drug Abuse Patient Records regulations: The Federal rules restrict any use of the information to criminally investigate or prosecute any alcohol or drug abuse patient.[facility] HospitalIn the event this information is protected by the Federal Confidentiality of Alcohol and Drug Abuse Patient Records regulations: The Federal rules restrict any use of the information to criminally investigate or prosecute any alcohol or drug abuse patient.[facility] HospitalIn the event this information is protected by the Federal Confidentiality of Alcohol and Drug Abuse Patient Records regulations: The Federal rules restrict any use of the information to criminally investigate or prosecute any alcohol or drug abuse patient.[facility] HospitalIn the event this information is protected by the Federal Confidentiality of Alcohol and Drug Abuse Patient Records regulations: The Federal rules restrict any use of the information to criminally investigate or prosecute any alcohol or drug abuse patient.[facility] HospitalIn the event this information is protected by the Federal Confidentiality of Alcohol and Drug Abuse Patient Records regulations: The Federal rules restrict any use of the information to criminally investigate or prosecute any alcohol or drug abuse patient.[facility] HospitalIn the event this information is protected by the Federal Confidentiality of Alcohol and Drug Abuse Patient Records regulations: The Federal rules restrict any use of the information to criminally investigate or prosecute any alcohol or drug abuse patient.[facility] HospitalIn the event this information is protected by the Federal Confidentiality of Alcohol and Drug Abuse Patient Records regulations: The Federal rules restrict any use of the information to criminally investigate or prosecute any alcohol or drug abuse patient.[facility] HospitalIn the event this information is protected by the Federal Confidentiality of Alcohol and Drug Abuse Patient Records regulations: The Federal rules restrict any use of the information to criminally investigate or prosecute any alcohol or drug abuse patient.[facility] HospitalIn the event this information is protected by the Federal Confidentiality of Alcohol and Drug Abuse Patient Records regulations: The Federal rules restrict any use of the information to criminally investigate or prosecute any alcohol or drug abuse patient.[facility] HospitalIn the event this information is protected by the Federal Confidentiality of Alcohol and Drug Abuse Patient Records regulations: The Federal rules restrict any use of the information to criminally investigate or prosecute any alcohol or drug abuse patient.[facility] HospitalIn the event this information is protected by the Federal Confidentiality of Alcohol and Drug Abuse Patient Records regulations: The Federal rules restrict any use of the information to criminally investigate or prosecute any alcohol or drug abuse patient.[facility] HospitalIn the event this information is protected by the Federal Confidentiality of Alcohol and Drug Abuse Patient Records regulations: The Federal rules restrict any use of the information to criminally investigate or prosecute any alcohol or drug abuse patient.[facility] HospitalIn the event this information is protected by the Federal Confidentiality of Alcohol and Drug Abuse Patient Records regulations: The Federal rules restrict any use of the information to criminally investigate or prosecute any alcohol or drug abuse patient.[facility] HospitalIn the event this information is protected by the Federal Confidentiality of Alcohol and Drug Abuse Patient Records regulations: The Federal rules restrict any use of the information to criminally investigate or prosecute any alcohol or drug abuse patient.[facility] HospitalIn the event this information is protected by the Federal Confidentiality of Alcohol and Drug Abuse Patient Records regulations: The Federal rules restrict any use of the information to criminally investigate or prosecute any alcohol or drug abuse patient.[facility] HospitalIn the event this information is protected by the Federal Confidentiality of Alcohol and Drug Abuse Patient Records regulations: The Federal rules restrict any use of the information to criminally investigate or prosecute any alcohol or drug abuse patient.[facility] HospitalIn the event this information is protected by the Federal Confidentiality of Alcohol and Drug Abuse Patient Records regulations: The Federal rules restrict any use of the information to criminally investigate or prosecute any alcohol or drug abuse patient.[facility] HospitalIn the event this information is protected by the Federal Confidentiality of Alcohol and Drug Abuse Patient Records regulations: The Federal rules restrict any use of the information to criminally investigate or prosecute any alcohol or drug abuse patient.[facility] HospitalIn the event this information is protected by the Federal Confidentiality of Alcohol and Drug Abuse Patient Records regulations: The Federal rules restrict any use of the information to criminally investigate or prosecute any alcohol or drug abuse patient.[facility] HospitalIn the event this information is protected by the Federal Confidentiality of Alcohol and Drug Abuse Patient Records regulations: The Federal rules restrict any use of the information to criminally investigate or prosecute any alcohol or drug abuse patient.[facility] HospitalIn the event this information is protected by the Federal Confidentiality of Alcohol and Drug Abuse Patient Records regulations: The Federal rules restrict any use of the information to criminally investigate or prosecute any alcohol or drug abuse patient.[facility] HospitalIn the event this information is protected by the Federal Confidentiality of Alcohol and Drug Abuse Patient Records regulations: The Federal rules restrict any use of the information to criminally investigate or prosecute any alcohol or drug abuse patient.[facility] HospitalIn the event this information is protected by the Federal Confidentiality of Alcohol and Drug Abuse Patient Records regulations: The Federal rules restrict any use of the information to criminally investigate or prosecute any alcohol or drug abuse patient.[facility] HospitalIn the event this information is protected by the Federal Confidentiality of Alcohol and Drug Abuse Patient Records regulations: The Federal rules restrict any use of the information to criminally investigate or prosecute any alcohol or drug abuse patient.[facility] HospitalIn the event this information is protected by the Federal Confidentiality of Alcohol and Drug Abuse Patient Records regulations: The Federal rules restrict any use of the information to criminally investigate or prosecute any alcohol or drug abuse patient.[facility] HospitalIn the event this information is protected by the Federal Confidentiality of Alcohol and Drug Abuse Patient Records regulations: The Federal rules restrict any use of the information to criminally investigate or prosecute any alcohol or drug abuse patient.[facility] HospitalIn the event this information is protected by the Federal Confidentiality of Alcohol and Drug Abuse Patient Records regulations: The Federal rules restrict any use of the information to criminally investigate or prosecute any alcohol or drug abuse patient.[facility] HospitalIn the event this information is protected by the Federal Confidentiality of Alcohol and Drug Abuse Patient Records regulations: The Federal rules restrict any use of the information to criminally investigate or prosecute any alcohol or drug abuse patient.[facility] HospitalIn the event this information is protected by the Federal Confidentiality of Alcohol and Drug Abuse Patient Records regulations: The Federal rules restrict any use of the information to criminally investigate or prosecute any alcohol or drug abuse patient.[facility] HospitalIn the event this information is protected by the Federal Confidentiality of Alcohol and Drug Abuse Patient Records regulations: The Federal rules restrict any use of the information to criminally investigate or prosecute any alcohol or drug abuse patient.[facility] HospitalIn the event this information is protected by the Federal Confidentiality of Alcohol and Drug Abuse Patient Records regulations: The Federal rules restrict any use of the information to criminally investigate or prosecute any alcohol or drug abuse patient.[facility] HospitalIn the event this information is protected by the Federal Confidentiality of Alcohol and Drug Abuse Patient Records regulations: The Federal rules restrict any use of the information to criminally investigate or prosecute any alcohol or drug abuse patient.[facility] HospitalIn the event this information is protected by the Federal Confidentiality of Alcohol and Drug Abuse Patient Records regulations: The Federal rules restrict any use of the information to criminally investigate or prosecute any alcohol or drug abuse patient.[facility] HospitalIn the event this information is protected by the Federal Confidentiality of Alcohol and Drug Abuse Patient Records regulations: The Federal rules restrict any use of the information to criminally investigate or prosecute any alcohol or drug abuse patient.[facility] HospitalIn the event this information is protected by the Federal Confidentiality of Alcohol and Drug Abuse Patient Records regulations: The Federal rules restrict any use of the information to criminally investigate or prosecute any alcohol or drug abuse patient.[facility] Reason for Visit (unrecogniz ed section and content) ReasonOnset DateCommentsRefill Fhzlucu91/11/2022ReasonCommentsMultiple Myeloma ReasonOnset DateCommentsRefill Dwahhny16/09/2022ReasonOnset DateCommentsRefill Gwgkexs01/03/2022ReasonCommentsMultiple Myelomafollow upReasonCommentsResults ReasonOnset DateCommentsRefill Nsemjcb7303/29/2022lenalidomideReasonCommentsCare Coordinator - OtherCarolinas Continue[facility] benjamin obtainedReasonOnset DateCommentsRefill Nxnqoke77/28/2022ReasonOnset DateCommentsRefill Ythcvjr76/26/2022ReasonComments Lab OrdersReasonOnset DateCommentsRefill Lxbvhak3206/16/2022pecialtyDiagnoses / ProceduresReferred By ContactReferred To Contact Diagnoses Multiple myeloma, remission status unspecified (HCC) Uriel Gunter MD [address] [place] [address] [place] [address] Shaheen Treat Lois [address] [place] [address] Referral IDStatusReasonStart DateExpiration DateVisits RequestedVisits [id number] CoordinationCalciumReasonOnset DateCommentsRefill Ccnkvmp6508/11/2022eason CommentsMultiple MyelomaFollow upReasonOnset DateCommentsRefill Request 09/21/2022easonOnset DateCommentsRefill Oiartdj6910/16/2022ReasonOnset Date CommentsRefill Xsjrugr4711/16/2022ReasonCommentsMultiple MyelomaTreatment visit ReasonOnset DateCommentsRefill Inrxyeo1312/19/2022ReasonOnset DateCommentsRefill Vouafws4112/28/2022ReasonOnset DateCommentsRefill Lhhewrv0502/05/2023ReasonOnset DateCommentsRefill Azsnila0304/18/2023ReasonOnset DateCommentsRefill Request 07/18/2023ReasonOnset DateCommentsRefill Fexzxrs2808/20/2023ReasonOnset Date CommentsRefill Mequfpx8111/15/2023easonOnset DateCommentsRefill Jzbhbdc8412/10/2023 ReasonOnset DateCommentsRefill Pcsltge5501/08/2024easonOnset DateCommentsRefill Jmkcitd1601/28/2024easonOnset DateCommentsRefill Enaddif9802/06/2024evlimid SpecialtyDiagnoses / ProceduresReferred By ContactReferred To Contact Diagnoses Multiple myeloma not having achieved remission (HCC) Paget disease of bone Uriel Gunter MD [address] [place] [address] [place] [address] Shaheen Treat Lois [address] [place] [address] Referral IDStatusReasonStart DateExpiration DateVisits RequestedVisits [id number]/[id number] Coordination LabsReasonOnset DateCommentsRefill Bqlwnkb2203/06/2024easonOnset DateComments Refill Iznvdiw8004/08/2024easonOnset DateCommentsRefill Fxsfccp9105/09/2024eason CommentsCare CoordinationLab ResultsReasonOnset DateCommentsRefill Request 06/04/2024easonOnset DateCommentsRefill Trtxrkq5606/30/2024easonOnset Date CommentsRefill Dttsrss8908/11/2024easonOnset DateCommentsRefill Nnscwss2009/11/2024 ReasonOnset DateCommentsRefill Egfsfmo5910/10/2024ReasonOnset DateCommentsRefill Yjropaj8211/17/2024ReasonOnset DateCommentsRefill Ifcngnv7412/11/2024ReasonOnset VyxuQxjmtozoEsfdzsv71/29/2025ReasonOnset DateCommentsRefill Afpfbdw4102/27/2025 Care Teams (unrecognized sec tion and content) Team MemberRelationshipSpecialtyStart DateEnd Date Hanna Mathias MD [address] [place] [id number] PCP - General01/27/03Team MemberRelationshipSpecialtyStart DateEnd Date Hanna Mathias MD [address] [place] [address] PCP - General5Team MemberRelationshipSpecialtyStart DateEnd Date Hanna Mathias MD [address] [place] [address] PCP - General01/27/03Team MemberRelationshipSpecialtyStart DateEnd Date Hanna Mathias, [address] [place] [address] PCP - General01/27/03Team MemberRelationshipSpecialtyStart DateEnd Date Hanna Mathias MD [address] [place] [address] PCP - General01/27/03Team MemberRelationshipSpecialtyStart DateEnd Date Hanna Mathias MD [address] [place] [address] PCP - General01/27/03Team MemberRelationshipSpecialtyStart DateEnd Date Hanna Mathias MD [address] [place] [address] PCP - General01/27/03Team MemberRelationshipSpecialtyStart DateEnd Date Hanna Mathias MD [address] [place] [address] PCP - General01/27/03Team MemberRelationshipSpecialtyStart DateEnd Date Hanna Mathias MD [address] [place] [address] PCP - General01/27/03Team MemberRelationshipSpecialtyStart DateEnd Date Hanna Mathias MD [address] [place] [facility] [place] [address] PCP - General01/27/03Team MemberRelationshipSpecialtyStart DateEnd Date Hanna Mathias MD [address] [place] [facility] [place] [place] [address] PCP - General5Team MemberRelationshipSpecialtyStart DateEnd Date Hanna Mathias MD [address] [facility] [place] [address] PCP - General01/27/03Team MemberRelationshipSpecialtyStart DateEnd Date Hanna Mathias MD [address] [facility] [place] [address] PCP - General01/27/03Team MemberRelationshipSpecialtyStart DateEnd Date Hanna Mathias MD [address] [place] [facility] [address] PCP - General01/27/03Team MemberRelationshipSpecialtyStart DateEnd Date Hanna Mathias MD [address] [place] [facility] [place] [address] PCP - General01/27/03Team MemberRelationshipSpecialtyStart DateEnd Date Hanna Mathias MD [address] [place] [facility] [address] PCP - General01/27/03Team MemberRelationshipSpecialtyStart DateEnd Date Hanna Mathias MD [address] [place] [facility] [address] PCP - General01/27/03Team MemberRelationshipSpecialtyStart DateEnd Date Hanna Mathias MD [address] [place] [facility] [address] PCP - General01/27/03Team MemberRelationshipSpecialtyStart DateEnd Date Hanna Mathias MD [address] [place] [facility] [address] PCP - General01/27/03Team MemberRelationshipSpecialtyStart DateEnd Date Hanna Mathias MD [address] [place] [facility] [place] [address] PCP - General01/27/03Team MemberRelationshipSpecialtyStart DateEnd Date Hanna Mathias MD [address] [place] [facility] [address] PCP - General01/27/03Team MemberRelationshipSpecialtyStart DateEnd Date Hanna Mathias MD [address] [place] [facility] [place] [address] PCP - General01/27/03Team MemberRelationshipSpecialtyStart DateEnd Date Hanna Mathias MD [address] [place] [facility] [place] [address] PCP - General01/27/03Team MemberRelationshipSpecialtyStart DateEnd Date Hanna Mathias MD [address] [place] [facility] [place] [place] [address] PCP - General01/27/03Team MemberRelationshipSpecialtyStart DateEnd Date Hanna Mathias MD [address] [place] [facility] [place] [address] PCP - General01/27/03Team MemberRelationshipSpecialtyStart DateEnd Date Hanna Mathias MD [address] [place] [facility] [place] [place] [address] PCP - General5Team MemberRelationshipSpecialtyStart DateEnd Date Hanna Mathias MD [address] [place] [facility] [place] [place] [address] PCP - General01/27/03Team MemberRelationshipSpecialtyStart DateEnd Date Hanna Mathias MD [address] [place] [facility] [place] [place] [address] PCP - General01/27/03Team MemberRelationshipSpecialtyStart DateEnd Date Hanna Mathias MD [address] [place] [facility] [place] [place] [address] PCP - General01/27/03Team MemberRelationshipSpecialtyStart DateEnd Date Hanna Mathias MD [address] [place] [facility] [place] [place] [address] PCP - General5Team MemberRelationshipSpecialtyStart DateEnd Date Hanna Mathias MD [address] [place] [facility] [place] [place] [address] PCP - General5Team MemberRelationshipSpecialtyStart DateEnd Date Hanna Mathias MD [address] [place] [facility] [place] [address] PCP - General5Team MemberRelationshipSpecialtyStart DateEnd Date Hanna Mathias MD [address] [place] [facility] [place] [place] [address] PCP - General5Team MemberRelationshipSpecialtyStart DateEnd Date Hanna Mathias MD [address] [place] [facility] [place] [place] [address] PCP - General01/27/03Te MemberRelationshipSpecialtyStart DateEnd Date Hanna Mathias MD [address] [facility] [place] [address] PCP - [facility]10/30/24Te MemberRelationshipSpecialtyStart DateEnd Date Hanna Mathias MD [address] [facility] [place] [address] PCP - General01/27/03Te MemberRelationshipSpecialtyStart [facility] Hanna Mathias MD [address] [facility] [place] [address] PCP - General01/27/03 FOR RECORDS PERTAINING TO [...] BE BASED ON THE PRIMARY CLINICAL RECORDS. [facility]. provides no warranty or guarantee of the accuracy or completeness of information in this document.
[2025-09-02] MEDS: DEXTROSE 50 %-WATER 25 GM/50 ML SYRINGE IV (10:49)
--- NOTE | 2025-09-02 10:51 | PC.NURSE ---
(8957) Patient medicated with D50 1/2 amp as ordered per Dr. Davis. Blood sugar was 63.
[2025-09-02] MEDS: BUPIVACAINE LIPOSOME/PF 266 MG/20 ML VIAL INJ (11:00)
[2025-09-02] MEDS: BUPIVACAINE HCL 0.25% PF 25 MG/10 ML VIAL INJ (11:00)
[2025-09-02] MEDS: 0.9 % SODIUM CHLORIDE 10 ML VIAL INJ (11:00)
--- NOTE | 2025-09-02 11:17 | PC.NURSE ---
(1058) Final timeout completed. Patient placed on monitor and O2 via nasal cannula at 2l/min via nc. (1059) Patient medicated per Dr. Davis via IV. (1101) Left groin site prepped with Chloraprep per Dr. Davis. (1103) Left groin site landmarked via Ultrasound per Dr. Davis. (1104) Left groin site injected per Dr. Davis. (1105) Left TAP block completed. Patient tolerated it well. See posted vital signs.
[2025-09-02] MEDS: CEFAZOLIN SODIUM/DEXTROSE,ISO 2 GM/50 ML PIGGYBACK IV (11:32)
[2025-09-02] MEDS: CEFAZOLIN SODIUM 1,000 MG in 0.9 % SODIUM CHLORIDE 10 ML 10 MG IRR (12:14)
[2025-09-02] MEDS: HYDROMORPHONE HCL 0.5 MG/0.5 ML SYRINGE IV ×2 (14:25→14:32)
--- NOTE | 2025-09-02 15:13 | PC.NURSE ---
1503:O2 removed on arrival to phase 2,pt current sat was 97% on 1L O2 via nasal cannula.
[2025-09-02] MEDS: OXYCODONE HCL 5 MG TABLET 10 MG PO (15:45)
== END 2025-09-02 16:20 | disposition home or self-care (01) ==
LOC: SURGOUT 09:07
PROVIDERS: PCP Family Medicine; Visit Provider Surgery
PROC: (CPT 49520; principal; 2025-09-02 10:20)
DX: K40.91 Unilateral inguinal hernia, without obstruction or gangrene, recurrent (principal); E78.5 Hyperlipidemia, unspecified; J44.9 Chronic obstructive pulmonary disease, unspecified; K51.90 Ulcerative colitis, unspecified, without complications; Z90.49 Acquired absence of other specified parts of digestive tract; K21.9 Gastro-esophageal reflux disease without esophagitis; C90.00 Multiple myeloma not having achieved remission; E11.42 Type 2 diabetes mellitus with diabetic polyneuropathy; Z79.84 Long term (current) use of oral hypoglycemic drugs; Z87.891 Personal history of nicotine dependence; N40.0 Benign prostatic hyperplasia without lower urinary tract symptoms; N18.9 Chronic kidney disease, unspecified; E11.22 Type 2 diabetes mellitus with diabetic chronic kidney disease; Z87.442 Personal history of urinary calculi
CPT/HCPCS: 49520; 36415; 64488; 82948; 88300; C1781; J0665; J0690; J1100; J1171; J2250; J2405; J2704; J3010

== ENCOUNTER 2025-09-17 11:44 | Emergency (ER) | payer MEDICARE, OTHER, SELFPAY ==
--- OUTSIDE RECORDS SUMMARY | 2025-09-03 19:39 | XMS_ITS | Continuity of Care Document ---
Author Organization [facility] Address [address] [place] [address] Phone Care Team Providers Care Mail Examiner Name Role Phone Manny Rosales MD Attending Provider Care Teams Patient Care Team Team Status: Inactive Member Role/Relationship Status Dates Manny Rosales MD [facility] Attending Provider Active Start: September 02, 2025 End: September 02, 2025 Chief Complaint and Reason for Visit Chief Complaint Admit Date Unknown September 02, 2025 1:55pm Allergies, Adverse Reactions, Alerts Allergen Type Severity Reaction Last Updated Verified Status erythromycin base Allergy Unknown May 05, 2021 9:42amYesActiveguaifenesinAllergyUnknow2020 9:42amYesActivephenylephrineAllergyUnknow2020 9:42amYesActive phenylpropanolamineAllergyUnknoWell[facility]2020 9:42amYesActiveSulfa (Sulfonamide Antibiotics)AllergyUnknow2020 9:42amYesActive sulfamethoxazoleAllergyUnknownA2020 9:42amYesActivetrimethoprim AllergyUnknownAlew[facility] 2020 9:42amYesActive Social History Smoking Status Status Start Date End Date Date of Observa tion Never smoked tobacco (finding) September 03, 2025 1:21pm Observation Status Observation Response Date of Response Legal Sex Male (finding) Sex Assigned At BirthMaleJuly 1944 Family History Relationship Condition Age at Onset Recorded Date/T loree father Family history of other condition Unknown DeceasedUnknownMalignant neoplasmUnknownDiabetes mellitusUnknowngrandparent Diabetes mellitusUnknownmotherMalignant neoplasmUnknownDeceasedUnknownHeart diseaseUnknownsiblingDiabetes mellitusUnknown Advance Directives Advance Directive Response Recorded Date/ Time Advance Directives Yes December 24 8:43am Insurance Providers Guarantor Zach Manuel Address [address] [place] [id number] Info.Home Phone: Payer Group Member ID Coverage Type Subscriber Relationship to Subscriber Effective Date Expiration Date Medicare [id number] F Drown Id: [id number] [address] [address] Home Phone: Email: DECLINE16SelfForethmarsh[facility] [employer] Id: PLAN [id number] F Drown Id: [id number] [address] [place] [address] Home Phone: Email: DECLINE16Self Encounters Encounter Location(s) Arrival/Admit Date Discharge/Departure Date Discharge/Departure Disposition Provider(s) Departed Referred -[facility] September 02, 2025 1:55pm September 02, 2025 1:56pm Discharged to home care or self care (routine discharge) Manny Rosales MD FACS
--- OUTSIDE RECORDS SUMMARY | 2025-09-09 23:59 | XMS_ITS | Continuity of Care Document ---
Author Organization [facility] Address [address] [place] [address] Care Team Providers Care Marine Resource Economist Name Role Phone Jose Alberto Young Primary Care Physician [phone] Encounter FT_DEVENDRA [id number] Date(s): 09/09/25 - 09/09/25 [facility] [address], [address], [place], [place] [address] Encounter Diagnosis Recurrent irreducible left inguinal hernia(Discharge Diagnosis) - 09/09/25 Discharge Disposition: Home (Routine DC) Attending Physician: Manny VELOZ MD Encounter Type: Clinic Allergies, Adverse Reactions, Alerts SubstanceCriticalitySeverityReactionReaction SeverityStatuserythromycinUnknown ActiveneomycinUnknownActiveEntexUnknownActivesulfa drugsUnknownActiveReglan unknownActive Treatment Plan Future Appointments Appointment Date:09/22/2025 02:20:00 PM Scheduled Provider:Manny VELOZ MD Location:[facility] Appointment Type: Post Op 15 Functional Status 09/09/25 Symptomatic After Exposure to ContagionNoSymptomatic After Travel High-Risk Area NoDroplet, Contact Isolation VerificationN/AAirborne,Contact Isolation VerificationN/A Functional Status Assessment AssessmentAssessment ComponentResultEffective DateUnspecifed Functional Status AssessmentHistory of Fall in Last 3 Months YdzdxNs40/17/25 Immunizations Given and Recorded VaccineDateStatusRefusal UiiljkUDOH-KtC-9 (COVID-19) mRNAMUL.ORD![id number] RecordedSARSCoV2 mRNA(sirzqtmkx-gojk-zrczcd) vac4/22/72VknrbhnqALSD-FkW-9 (COVID-19) Ad26 gygikrd02/31/07YjmfdrnbDLKD-WoX-3 (COVID-19) mRNA BNT-162b2 vax 06/28/2161WlvdlzjeWMZY-ZtH-1 (COVID-19) mRNA BNT-162b2 vax2//09VuvmqezoYPRH-VhY-0 (COVID-19) mRNA BNT-162b2 vax1/12/1281QtqkujfxZWQQ-UdF-3 (COVID-19) mRNA BNT-162b2 vax1//Recordedinfluenza virus vaccine, sghvuonywza65/2021RecordedPfizer- BioNTech COVID-19 Vaccine11/17/20Recorded 1Result Comment: 2025-07-29: TPV70 Medications glyBURIDE micronized 6 mg Tab 6 mg = 1 tab(s), Oral, BID, Refills(s) 0 Start Date: 07/29/25 Status: Ordered Medication Dispense Status: Completed Total Allowed Fills: 1 Fills Dispensed: 0 Jardiance 10 mg oral tablet 10 mg = 1 tab(s), Oral, qAM, Refills(s) 0 Start Date: 07/29/25 Status: Ordered Medication Dispense Status: Completed Total Allowed Fills: 1 Fills Dispensed: 0 metformin 500 mg Tab 500 mg = 1 tab(s), Oral, QID, Refills(s) 0 Start Date: 07/29/25 Status: Ordered Medication Dispense Status: Completed Total Allowed Fills: 1 Fills Dispensed: 0 oxycodone 10 mg, Oral, QID, PRN as needed for pain, Refills(s) 0 Start Date: 12/08/19 Status: Ordered Medication Dispense Status: Completed Total Allowed Fills: 1 Fills Dispensed: 0 pantoprazole 40 mg, Oral, Daily, Refills(s) 0 Start Date: 12/08/19 Status: Ordered Medication Dispense Status: Completed Total Allowed Fills: 1 Fills Dispensed: 0 Revlimid 10 mg oral capsule 10 mg = 1 cap(s), Oral, Daily, (do not break, chew, or open capsules), # 30 cap(s), Refills(s) 0 Start Date: 12/08/19 Status: Ordered Medication Dispense Status: Completed Quantity: 30.0 Unit: cap(s) Total Allowed Fills: 1 Fills Dispensed: 0 Problem List ConditionConfirmationCourseEffective DatesStatusHealth StatusInformantAnxiety ConfirmedActiveAsthmaConfirmedActiveBPH with urinary obstructionConfirmedActive Stage 3b chronic kidney diseaseConfirmedActiveDiabetes mellitusConfirmedActive EczemaConfirmedActiveFamily history of prostate cancerConfirmedActiveGERD (gastroesophageal reflux disease)ConfirmedActiveHistory of ulcerative colitis ConfirmedActiveDeafnessConfirmedActiveHistory of kidney stonesConfirmedActive HypercholesterolemiaConfirmedActiveHypergammaglobulinemiaConfirmedActive HyperlipidemiaConfirmedActiveHyperlipidemiaConfirmedActiveCOPD, mildConfirmed ActiveMultiple stcdqhp6ZoamrpaasFgiljuZoaxznliEoopcrsjoVnerssKsoup's bone diseaseConfirmedActiveOverweightConfirmedActiveBMI 27.0-27.9,adultConfirmed ActivePeripheral neuropathyConfirmedActiveProteinuriaConfirmedActiveElevated PSA ConfirmedActiveRecurrent irreducible left inguinal herniaConfirmedActiveRight bundle branch blockConfirmedActiveUrge incontinenceConfirmedActive 1Pt sees Dr. Gunter Procedures ProcedureDateRelated DiagnosisBody SiteStatusRepair of recurrent left inguinal cghkuk42/10/25CompletedAppendectomyCompletedCataract extractionCompleted CholecystectomyCompletedColonoscopyCompletedExcision of spermatoceleCompleted Internal fixation of fracture of right femurCompletedRepair of left inguinal herniaCompletedSurgical procedure on lumbar spineCompletedTonsillectomyCompleted Total colectomyCompleted Social History Social History TypeResponseSmoking StatusFormer smoker, quit more than 30 days ago;Never; Type: Cigarettes; Tobacco use per day: 2; Started at age: 20.0; Stopped at age: 42; entered on: 09/09/25Birth SexMaleSex Representation Patient Care team information Care Team Personnel Name: Jose Alberto Young MD Position: FT Physician Member Role: Primary Care Physician Address: [address] [place] [address] Telecom: Care Team Related Persons Name: ARSLAN RAMESH Name: ARSLAN RAMESH Insurance Providers Guarantor name: MATTHEW RAMESH Health Plan Information #: 1 Payer: MEDICARE Payer Identifier: [id number] Member Number: [id number] Group Number: AB Subscriber Identifier: [id number] Relationship to Subscriber: Self/Patient Coverage Type: Medicare Coverage Verification Date: 25 Telecom: [phone] Address: [facility] [address] [place] [address] Health Plan Information #: 2 Payer: Miscellaneous Insurance Company Payer Identifier: JOSE M Member Number: [id number] Group Number: NA Subscriber Identifier: [id number] Relationship to Subscriber: Self/Patient Coverage Type: Private Health Insurance Coverage Verification Date: JOSE M Telecom: JOSE M Address: [facility] [address] [place], [place] [address]
[2025-09-17] VITALS (35 sets, daily range): BP systolic 106–134; BP diastolic 41–105; PULSE 65–76; TEMP 36.8; O2SAT 91–100; BMI 25.8
--- NOTE | 2025-09-17 11:51 | ECG_ITS ---
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 Measurements Intervals Leslie Rate: 65 P: 38 IL: 120 QRS: 92 QRSD: 144 T: 52 QT: 468 QTc: 480 Interpretive Statements 1100 Sinus rhythm 2450 Right bundle branch block 9150 abnormal ECG Compared to ECG 08/24/2025 12:04:06 Sinus bradycardia no longer present Electronically Signed On 09-17-2025 21:34:59 EST by FRIDA MEJIA M.D.
[2025-09-17 12:16] LABS: Hematocrit 37.4 % (42.0-54.0); Hemoglobin 13.0 g/dL (14.0-18.0); Immature Granulocytes Abs Auto 0.06 10^3/uL (0.00-0.03); Immature Granulocytes Pct Auto 0.8 % (0.0-0.5); Lymphocytes Absolute Auto 0.4 10^3/uL (1.2-3.8); Mean Corpuscular HGB Conc 34.8 g/dL (29.9-35.2); Mean Corpuscular Hemoglobin 36.4 pg (25.9-34.0); Mean Corpuscular Volume 104.8 fL (80.0-94.0); Platelet Count 175 10^3/uL (150-450); Red Blood Count 3.57 10^6/uL (4.70-6.10); White Blood Count 7.4 10^3/uL (4.0-11.0)
[2025-09-17 12:32] LABS: Anion Gap 14.8
[2025-09-17 12:34] LABS: Alanine Aminotransferase 15 U/L (16-63); Albumin Globulin Ratio 0.7; Albumin Level 2.9 g/dL (3.4-5.0); Alkaline Phosphatase 90 U/L (46-116); Aspartate Amino Transferase 18 U/L (15-37); Blood Urea Nitrogen 35.0 mg/dL (7.0-18.0); Calcium 8.5 mg/dL (8.5-10.1); Carbon Dioxide 23.0 mmol/L (21.0-32.0); Chloride 101 mmol/L (98-107); Estimated GFR (African America 38 (>=60 mL/min/1.73m^2); Estimated GFR (Non-African Ame 31 (>=60 mL/min/1.73m^2); Globulin 4.1 g/dL; Glucose 90 mg/dL (74-106); Potassium 3.8 mmol/L (3.5-5.1); Sodium 135 mmol/L (136-145); Total Protein 7.0 g/dL (6.4-8.2)
--- OUTSIDE RECORDS SUMMARY | 2025-09-17 12:34 | XMS_ITS | Clinical Summary ---
Author Organization [facility] Address [facility] [address] [place] [address] Care Team Providers Care Boat Carpenter Name Role Phone Jose Alberto Young MD Primary Care Provider [phone] Allergies Active AllergyReactionsCriticalityNoted DateCommentsAzithromycinOther (See Comments)Qqondj0307/12/2018 Other Reaction(s): Unknown Fygitubfygaa71/14/2017 Other Reaction(s): Unknown, Unknown NeomycinOther (See Comments)10/30/2024PseudoephedrineOther (See Comments) 10/30/2024Sulfa (Sulfonamide Antibiotics)Other (See Comments)10/09/2024 Kidney stones TobramycinGI Yuckfhvqarg69/15/2020 made condition worse Medications MedicationSigDispense QuantityRefillsLast FilledStart [...] standard drink = 0.6 oz pure alcohol)ChildcareAnswerDate BnthpzebYaykieclxPrbawrk46/12/2019Employment AnswerDate HyejbqwcRxhaesruyqSlvjfcf97/12/2019Sex and Gender InformationValue Date RecordedSex Assigned at BirthNot on fileLegal BhtEgdz5204/29/2015 11:41 AM EDTGender IdentityNot on fileSexual OrientationNot on file Last Filed Vital Signs Vital SignReadingTime TakenCommentsBlood Ggqlgiwh837/54011/20/2024 10:11 AM EST Qmvha772011/20/2024 10:11 AM GNOJvrmsqxecms21.2 ??C (97.2 ??F)11/20/2024 7:46 AM ESTRespiratory Tggy029811/20/2024 10:11 AM ESTOxygen Cnfyzksywz26%11/20/2024 10:11 AM ESTInhaled Oxygen Concentration--Oxqnst66.6 kg (180 lb)11/20/2024 7:46 AM EST Enqnqu568.3 cm (5' 9 )11/20/2024 7:46 AM ESTBody Mass Index26.58011/20/2024 7:46 AM EST Plan of Treatment Health MaintenanceDue DateLast DoneCommentsDepression Ucamsituy77/06/1959 DTaP,Tdap and Td Vaccines (1 - Tdap)1966Zoster (Shingles) Vaccine (1 of 2) 1966Fall Risk Gwdjhvbov04/06/2012COVID-19 Vaccine ( season) , 07/07/2023, 06/08/2022, Additional history existsInfluenza Tymlvif28/01/868927/, 07/05/2020, 07/19/2016Tobacco Upojiptch49/27/2026 11/20/2024RSV ( or age 60+ yrs)Gsggolbab32/12/2024, 07/07/2023 Medical Devices ImplantedTypeAreaManufacturerDevice IdentifierShelf Expiration DateModel / Serial / LotLens Iol [id number] [employer] Rpl [id number] - [id number] - [id number] Implanted:Qty: 1 on 10/30/2024 by Adelina Stapleton MD at [facility]: [employer]02/10/2028SY60WF.195 / [id number] / NALens Iol [id number] [employer] Rpl [id number] - [id number] - [id number] Implanted:Qty: 1 on 11/20/2024 [facility]/12/2028SY60WF.215 / [id number] / N/A Insurance Advance Directives TypeDate RecordedPatient RepresentativeExplanationDurable Power of Director Of Employee Development 11/11/2024 8:31 AM Care Teams Team MemberRelationshipSpecialtyStart DateEnd Date Jose Alberto Young MD [address] [place] [address] [facility]10/30/24
--- OUTSIDE RECORDS SUMMARY | 2025-09-17 12:35 | XMS_ITS | Clinical Summary ---
Author Organization [facility] Address [address] [place] [address] Care Team Providers Care Stock Cutter Name Role Phone Unavailable Primary Care Provider Unavailabl e Social History Tobacco UseTypesPacks/DayYears UsedDateSmoking Tobacco: Never AssessedSex and Gender InformationValueDate RecordedSex Assigned at BirthNot on fileLegal Sex Male12/06/2022 8:12 PM EDTGender IdentityNot on fileSexual OrientationNot on file Last Filed Vital Signs Vital SignReadingTime TakenCommentsBlood Xbeymjpq735/8204 12:00 PM EDT Pulse--Temperature--Respiratory Rate--Oxygen Saturation--Inhaled Oxygen Concentration--Ssibcv44.5 kg (195 lb)12/24/2018 12:00 PM HBAIbtjxq840.3 cm (5' 9 )12/24/2018 12:00 PM EDTBody Mass Index28.804 12:00 PM EDT Plan of Treatment Not on file Insurance
--- OUTSIDE RECORDS SUMMARY | 2025-09-17 12:35 | XMS_ITS | Clinical Summary ---
Author Organization [facility] Address [address] [place] [address] Phone Care Team Providers Care Bulldozer Press Operator Name Role Phone Unavailable Primary Care Provider Unavailabl e Social History Tobacco UseTypesPacks/DayYears UsedDateSmoking Tobacco: Never AssessedSex and Gender InformationValueDate RecordedSex Assigned at BirthNot on fileLegal Sex Male08/18/2022 12:32 PM ESTGender IdentityNot on fileSexual OrientationNot on file Plan of Treatment Not on file
--- OUTSIDE RECORDS SUMMARY | 2025-09-17 12:35 | XMS_ITS ---
Author Organization [facility] Address [address] [place], [place] [address] Care Team Providers Care Equine Pharmacology Technician Name Role Phone Jose Alberto Young MD Primary Care Provider [phone] Active Problems ProblemNoted DateDiagnosed DateStage 3 chronic kidney disease, unspecified whether stage 3a or 3b CKD03/06/2023Elevated prostate specific antigen (PSA) 03/19/2020Outlet dysfunction fzinennyymjx66/27/2016Perirectal skin irritation 10/20/2015Anal kyztzdwz20/27/2016Type 2 diabetes mellitus without complication 10/20/2015Long term current use of systemic /27/2016Left inguinal raaidz4810/20/2015Former hsllmk2610/20/2015Diabetes ufifpaeg52/02/2013H/O ulcerative mrzfygh6012/24/2012Paget disease of bone12/24/2012Multiple tmvapzk2909/25/2012 Current Treatment and Therapy Plans AMB BONE MODIFYING AGENT: $$ - Q84D IF CRCL IS GREATER THAN 30 ML/MIN* Plan Start Date:02/26/2024 Plan Provider:Uriel Gunter MD Linked Problems Multiple myeloma not having achieved remission (HCC)Paget disease of bone Treatment MedicationsCurrent Day (Day 1, Cycle 4 - Planned for 11/09/2025)* * pamidronate iv infusion (AREDIA) - hypercalcemia * * pamidronate 30 mg in NaCl 0.9% 250 mL (AREDIA) solution Past Treatment and Therapy Plans Plan NameStart DateDiscontinue DateTreatment MedicationsDiscontinue ReasonPlan ProviderCyclesPAMIDRONATE 90 - Q90///01/2024* pamidronate iv infusion (AREDIA) - hypercalcemia OtherMurpUriel handley MD24 of 25 cycles started
--- OUTSIDE RECORDS SUMMARY | 2025-09-17 12:35 | XMS_ITS | Encounter Summary ---
Author Organization [facility] Address [address] [place], [place] [address] Care Team Providers Care Ranch Rider Name Role Phone Jose Alberto Young MD Primary Care Provider [phone] Source Comments In the event this information is protected by the Federal Confidentiality of Alcohol and Drug AbusePatient Records regulations: The Federal rules restrict any use of the information to criminally investigate or prosecute any alcohol or drug abuse patient.[facility] Reason for Visit * ReasonOnset DateCommentsRefill Cvtnhls3109/07/2025 Encounter Details DateTypeDepartmentCare Team (Latest Contact Info)Qgiwfgixzke30/15/2025Refill [facility] [address] [place] [address] [address] MD [address] [place] [address] [address] [phone] Refill Request Social History Tobacco UseTypesPacks/DayYears UsedDateSmoking Tobacco: SybdetFgyhoyacwn001 09/24/1960 - 09/24/1990Smokeless Tobacco: Never Comments:quit 1996 Alcohol UseStandard Drinks/WeekCommentsNo0 (1 standard drink = 0.6 oz pure alcohol)PHQ-2AnswerDate RecordedPHQ-2 raqnp948rea Deprivation Index AnswerDate RecordedNational Score (1-100), lower number is lower risk63 03/06/2023State Score (1-10), lower number is lower jjfo686ata from: https://www.neighborhoodatlas.medicine.[facility]/. Last address used for [address] Sex and Gender InformationValueDate RecordedSex Assigned at BirthNot on fileLegal BoaMvje65/02/2012 9:00 AM ESTGender Identity Not on fileSexual OrientationNot on filedocumented as of this encounter Functional Status * Are you deaf or do you have serious difficulty hearing?AnswerDate of PzylpfdbgwIbghgrNh17/17/2015 11:20 AM Selin Jordan MA * Are you blind or do you have serious difficulty seeing, even when wearing glasses?AnswerDate of TbxkobcztsOiksiuJw60/17/2015 11:20 AM Selin Jordan MA * Do you have serious difficulty walking or climbing stairs?AnswerDate of UjuhqiqttaUutyarYp17/17/2015 11:20 AM Selin Jordan MA * Do you have difficulty dressing or bathing?AnswerDate of AssessmentAuthorNo 04/09/2015 11:20 AM Selin Jordan MA * Because of a physical, mental, or emotional condition, do you have difficulty doing errands alone such as visiting a doctor's office or shopping?AnswerDate of NhedumaaguMdvrmmYx58/17/2015 11:20 AM Selin Jordan MA documented as of this encounter Mental Status * Because of a physical, mental, or emotional condition, do you have serious difficulty concentrating, remembering, or making decisions?AnswerEntry Date SoyrgbTg43/17/2015 11:20 AM Selin Jordan MA documented in this encounter Plan of Treatment DateTypeDepartmentCare Team (Latest Contact Info)Kyawblsjwvo80/23/2026 10:30 AM ESTOffice Visit [facility] [address] [place] [address] [place] [address] 3month lab . wait for results may need aredia ecklahll25/23/2026 11:00 AM [facility] Hematology/Oncology [address] [place] [address] [place] [address] 3month lab . wait for results may need aredia jyfbqijm38/18/2026 10:15 AM EDT Office Visit [facility] [address] [place] [address] 6 month follow up labs w/ Spcbzm4702/08/2026 10:30 AM EDTVisit (SP) Office Hematology/Oncology [address] [place] [address], REVENUE ACCOUNTING MANAGER.GRAPHIC ART TECHNICIAN [address] [place] [address] 6 month follow up labs w/ Hokqax9002/08/2026 11:00 AM [facility] [address] [place] [address] 6 month follow up labs w/ Proliadocumented as of this encounter Visit Diagnoses Not on filedocumented in this encounter Care Teams Team MemberRelationshipSpecialtyStart DateEnd Date Jose Alberto Young MD [address] [place] [address] PCP - General01/27/03documented as of this encounter
--- OUTSIDE RECORDS SUMMARY | 2025-09-17 12:35 | XMS_ITS | Clinical Summary ---
Author Organization [facility] Address [address] [place], [place] [address] Care Team Providers Care Junior Automation Engineer Name Role Phone Jose Alberto Young MD Primary Care Provider [phone] Allergies Active AllergyReactionsCriticalityNoted DateCommentsAzithromycinUnknownMedium 07/12/20184551VtfhlzwvrkeeVlqhurp34/14/2017Sulfa (Sulfonamide Antibiotics)Unknown 09/19/2012TobramycinOther: See Pamrfozb67/15/2020 made condition worse Medications MedicationSigDispense QuantityRefillsLast FilledStart DateEnd DateStatus GLUCOPHAGE 500 MG TAB Take 1,000 mg by mouth daily with breakfast. Active oxyCODONE IR (ROXICODONE) 10 mg tab 10 mg as needed.10/10/2017Active pantoprazole DR (PROTONIX) 40 mg tablet Take [...] on and 7 days off. 21 capsule 09/07/2025tive lenalidomide (REVLIMID) 5 mg capsule Take 1 capsule by mouth daily for 21 days on and 7 days off. 21 capsule 08/05/2025 8:18 AM ESTDiscontinued Active Problems ProblemNoted DateDiagnosed DateStage 3 chronic kidney disease, unspecified whether stage 3a or 3b CKD03/06/2023Elevated prostate specific antigen (PSA) 03/19/2020Outlet dysfunction ofywufboeoqz49/27/2016Perirectal skin irritation 10/20/2015Anal poufgqyx50/27/2016Type 2 diabetes mellitus without complication 10/20/2015Long term current use of systemic obnawlsm98/27/2016Left inguinal pxouaj3010/20/2015Former yjpmgk8710/20/2015Diabetes cnpboikx57/02/2013H/O ulcerative fcdifpy8812/24/2012Paget disease of bone12/24/2012Multiple wvycxwv1709/25/2012 Encounters DateTypeDepartmentCare VszuSewcakilacl79/15/2025Ref[address] [address] [address] MD Refill Tuvqpel5208/17/2025 11:00 AM ESTInfusion Center Hematology/Oncology [address] [place] [address] [place] [address] Paget disease of bone (Primary Dx)08/17/2025 10:30 AM ESTVisit (SP) Office Hematology/Oncology [address] [place] [address] [place] [address], PRESSER ALL AROUND.MASTER COASTWISE YACHT Multiple myeloma not having achieved remission (HCC) (Primary Dx); Paget disease of bone; H/O ulcerative colitis; Elevated prostate specific antigen (PSA); Stage 3b chronic kidney disease (HCC); Kfvvuyfbrmbw26/24/2025Telephone Cancer [facility] [address] [place] [address], [employer]ESSER ALL AROUND.MASTER COASTWISE YACHT Nqsdbkl3508/17/20254196Fhcteu15/17/2025Telephone Hematology/Oncology [address] [place] [address] [place] [address] Bozena Roland, instructional technology facilitator Sqyvqv3207/21/20[address] [address] Deyvi Stoddard MD Refill Ueiykek6706/23/2025[facility] [address] [place] [address] [address] MD Refill Requestfrom Last 3 Months Immunizations ImmunizationAdministration DatesNext DueCOVID-19 original vaccine, age 12+ yr, monovalent (PFIZER-BIONTECH - PURPLE TOP)06/28/2021,11/11/2020,1COVID- 19 vaccine, unspecified formulation ([place] ONLY)06/28/2021influenza (HD-IIV4) vaccine, age 65+ yr, high dose, quadrivalent, PF (FLUZONE HIGH-DOSE)06/16/2021 influenza (aIIV3) vaccine, age 65+ yr, trivalent, PF (FLUAD)07/05/2020influenza vaccine, unspecified qydikcgicxr72/26/2016respiratory syncytial virus (RSV) vaccine, bivalent (ABRYSVO)07/07/2023 Family History Medical HistoryRelationCommentsCancerFatherprostateCancerMotherbladderRelation StatusCommentsFatherMother Social History Tobacco UseTypesPacks/DayYears UsedDateSmoking Tobacco: YrmmatDderddxdfo610 09/24/1960 - 09/24/1990Smokeless Tobacco: Never Comments:quit 1996 Alcohol UseStandard Drinks/WeekCommentsNo0 (1 standard drink = 0.6 oz pure alcohol)PHQ-2AnswerDate RecordedPHQ-2 gwuew6312Area Deprivation Index AnswerDate RecordedNational Score (1-100), lower number is lower risk63 03/06/2023State Score (1-10), lower number is lower rhwy3493Data from: https://www.neighborhoodatlas.medicine.[facility].edu/. Last address used for wvbqilpgiun6494 Sex and Gender InformationValueDate RecordedSex Assigned at BirthNot on fileLegal KefGcgb94/02/2012 9:00 AM ESTGender Identity Not on fileSexual OrientationNot on file Last Filed Vital Signs Vital SignReadingTime TakenCommentsBlood Lmjzxioo356/7908/17/2025 10:19 AM EST Urbgt673708/17/2025 10:19 AM RBAYepvyztxude60.4 ??C (97.6 ??F)08/17/2025 10:19 AM ESTRespiratory Wkcm316810/17/2024 10:19 AM ESTOxygen Nugtfmgrnm43%08/17/2025 10:19 AM ESTInhaled Oxygen Concentration--Lfammd17.8 kg (182 lb 8.7 oz)08/17/2025 10:19 AM GGAAlvnww898.3 cm (5' 9.02 )02/17/2025 11:04 AM EDTBody Mass Index26.94 02/17/2025 11:04 AM EDT Plan of Treatment DateTypeDepartmentCare Team (Latest Contact Info)Qksafpcditb73/23/2026 10:30 AM ESTOffice Visit [facility] [address] [place] [address] 3month lab . wait for results may need aredia /23/2026 11:00 AM EST Infusion Center Hematology/Oncology [address] [place] [address] 3month lab . wait for results may need aredia /18/2026 10:15 AM EDT Office Visit [facility] [address] [place] [address] 6 month follow up labs w/ Hragjq8402/08/2026 10:30 AM EDTVisit (SP) Office Hematology/Oncology [address] [place] [address], MAGGIE.MASTER COASTWISE YACHT [address] [address] 6 month follow up labs w/ Typeim3002/08/2026 11:00 AM EDTInfusion Center Hematology/Oncology [address] [place] [address] 6 month follow up labs w/ [facility] MaintenanceDue DateLast DntyWnmoelftAdS9A 2Diabetic Foot Exam1957Dilated Retinal Exam1957Urine Albumin:Creatinine Ratio7Annual PCP Team Chronic Disease Visit 1965Anxiety Kyenxkmhh94/06/1965Depression Tkewirmiw74/06/1965Hepatitis C Mwtcffrlc30/06/1965LDL Jnuidxbiipi04/06/1965Pneumococcal Vaccine: 50+ (1 of 2 - PCV)1966Shingrix Vaccine (1 of 2)1966Medicare Annual Wellness Visit 03/24/2012dvance Directive Scsawcterx45/01/2025Covid-19 Vaccine (10 - Pfizer risk season), 07/07/2023, 06/08/2022, Additional history existsHemoglobin/Mduvgmzawb28, 02/17/2025, 05/27/2024, Additional history existsSerum Wawtcxalar17, 02/17/2025, 05/27/2024, Additional history existsDTaP,Tdap,Td Vaccine (2 - Td or Tdap) RSV YptvhdqYvvlvcbom23/12/2024, 07/07/2023Influenza Vaccine Msupjjlio35/03/2025, 09/05/2024, 07/24/2023, Additional history exists Procedures Procedure NamePriorityDate/TimeAssociated DiagnosisCommentsPROTEIN ELECTROPHORESIS SERUM (P)Awdflgr6208/17/2025 10:03 AM EST Multiple myeloma not having achieved remission (HCC) PROTEIN, TOTAL (FOR SEPG)Xtoqmwq2508/17/2025 10:03 AM EST Multiple myeloma not having achieved remission (HCC) KAPPA/DNAIELS,FREE,POFJrizycq73/24/2025 10:03 AM EST Multiple myeloma not having achieved remission (HCC) IMMUNOFIXATION SCREEN, OYEOGOilzdhw67/24/2025 10:03 AM EST Multiple myeloma not having achieved remission (HCC) IMMUNOGLOBULINS BNRXqlkzuo60/24/2025 10:03 AM EST Multiple myeloma not having achieved remission (HCC) PROTEIN ELECTROPHORESIS SERUM W/NLPMUDJhcnjuv87/24/2025 10:03 AM EST Multiple myeloma not having achieved remission (HCC) MONOCLONAL PROTEIN, SERUM (BLOOD)Hgizzcq7608/17/2025 10:03 AM EST Multiple myeloma not having achieved remission (HCC) COMPREHENSIVE METABOLIC LSESGNrkgxsl39/24/2025 10:03 AM EST Multiple myeloma not having achieved remission (HCC) CBC + ABJFLyjavag51/24/2025 10:03 AM EST Multiple myeloma not having achieved remission (HCC) from Last 3 Months Results * (ABNORMAL) IMMUNOFIXATION SCREEN, SERUM (08/17/2025 10:03 AM EST)Component ValueRef RangeTest MethodAnalysis TimePerformed AtPathologist SignatureMPA ResultM protein is present.(A)No M protein is identified.08/19/2025 1:44 PM [facility] LABInterpretation (MPA)Atypical restricted bands are present in the IgG and kappa regions. Consistent with IgG kappa monoclonal gammopathy.08/19/2025 1:44 PM [facility] LABStaff Review (MPA) Reviewed by Alba Shelton MD08/19/2025 1:44 PM [facility] Specimen (Source)Anatomical Location / LateralityCollection Method / Volume Collection TimeReceived TimeBloodBLOOD SPECIMEN / UnknownVenipuncture / Lkrrifm1808/17/2025 10:03 AM EST08/17/2025 10:03 AM EST Narrative Authorizing ProviderResult TypeResult StatusJaimee Yas VEGACNPLABORATORYFinal ResultPerforming OrganizationAddressCity/State/ZIP CodePhone Number [facility] [address] * (ABNORMAL) PROTEIN, TOTAL (FOR SEPG) (08/17/2025 10:03 AM EST)ComponentValue Ref RangeTest MethodAnalysis TimePerformed AtPathologist SignatureProtein, Total6.0(L)6.3 - 8.0 g/dL08/17/2025 10:24 PM [facility] Specimen (Source)Anatomical Location / LateralityCollection Method / Volume Collection TimeReceived TimeBloodBLOOD SPECIMEN / UnknownVenipuncture / Kelcrqe9208/17/2025 10:03 AM EST08/17/2025 10:03 AM EST Narrative Authorizing ProviderResult TypeResult StatusNicelyse Yas PRESSER ALL AROUND.CNPLABORATORYFinal ResultPerforming OrganizationAddressCity/State/ZIP CodePhone Number [facility] [address] * (ABNORMAL) PROTEIN ELECTROPHORESIS SERUM (P) (08/17/2025 10:03 AM EST) ComponentValueRef RangeTest MethodAnalysis TimePerformed AtPathologist SignatureAlbumin for SPE3.703.43 - 5.41 g/dL08/19/2025 1:17 PM [facility] LABAlpha 1 Globulin0.220.18 - 0.43 g/dL08/19/2025 1:17 PM EST [facility] LABAlpha 2 Globulin0.550.42 - 0.98 g/dL08/19/2025 1:17 PM [facility] LABBeta Globulin0.58(L)0.61 - 1.17 g/dL08/19/2025 1:17 PM [facility] LABGamma Globulin0.960.53 - 1.51 g/dL 08/19/2025 1:17 PM [facility] LABInterpretation (Prot Electro)An M protein is identified on protein electrophoresis.(A)No definitive M protein is identified on protein electrophoresis.08/19/2025 1:17 PM [facility] LABInterpretation Comment for Protein ElectrophoresisSee separate immunofixation report for characterization of monoclonal gammopathy.08/19/2025 1:17 PM [facility] LABM-Protein LocationGamma Fraction 1 08/19/2025 1:17 PM [facility] LABM-Protein Concentration0.54(H) <=0.00 g/dL08/19/2025 1:17 PM [facility] LABSPE Staff Review Reviewed by Alba Shelton MD08/19/2025 1:17 PM [facility] Specimen (Source)Anatomical Location / LateralityCollection Method / Volume Collection TimeReceived TimeBloodBLOOD SPECIMEN / UnknownVenipuncture / Dkzdviv1208/17/2025 10:03 AM EST08/17/2025 10:03 AM EST Narrative [facility] - 08/19/2025 1:17 PM EST Serum electrophoresis test was performed using the [place] V8 NEXUS capillary electrophoresis method. Results obtained with different assay methods or kits cannot be used interchangeably. Authorizing ProviderResult TypeResult StatusMaile Sorenson APRN.CNPLABORATORYFinal ResultPerforming OrganizationAddressCity/State/ZIP CodePhone Number [facility] [address] [place] [address], * (ABNORMAL) KAPPA/DANIELS,FREE,SER (08/17/2025 10:03 AM EST)ComponentValueRef RangeTest MethodAnalysis TimePerformed AtPathologist SignatureKappa Free, Serum45.6(H)3.3 - 19.4 mg/L110/18/2024 2:23 PM [facility] Comment: Rarely, increased serum free light chains levels may not be detected or accurately quantified due to prozone phenomenon or in high viscosity samples using this immunoturbidimetric assay. Correlation with other laboratory results and clinical findings is recommended. The [place] Free Light Chain was performed using the Binding Site Optilite immunoturbidimetric method. Result obtained with different assay methods or kits cannot be used interchangeably. Lambda Free, Serum24.55.7 - 26.3 mg/L110/18/2024 2:23 PM [facility] LABComment: Rarely, increased serum free light chains levels may not be detected or accurately quantified due to prozone phenomenon or in high viscosity samples using this immunoturbidimetric assay. Correlation with other laboratory results and clinical findings is recommended. The [place] Free Light Chain was performed using the Binding Site Optilite immunoturbidimetric method. Result obtained with different assay methods or kits cannot be used interchangeably. ?? K/L Ratio, Serum1.86(H)0.26 - 1.6508/18/2025 2:23 PM [facility] LABSpecimen (Source)Anatomical Location / LateralityCollection Method / Volume Collection TimeReceived TimeBloodBLOOD SPECIMEN / UnknownVenipuncture / Unknown 08/17/2025 10:03 AM EST08/17/2025 10:03 AM EST Narrative Authorizing ProviderResult TypeResult StatusMaile Sorenson APRN.CNPLABORATORYFinal ResultPerforming OrganizationAddressCity/State/ZIP CodePhone Number [facility] [address] [place] [phone], * (ABNORMAL) IMMUNOGLOBULINS,IGG,IGA,IGM (08/17/2025 10:03 AM EST)ComponentValue Ref RangeTest MethodAnalysis TimePerformed AtPathologist SignatureIgG1,357001 - 1,600 mg/dL08/18/2025 10:24 AM ESTBLANCH[facility] SEUQdL56745 - 400 mg/dL08/18/2025 10:24 AM [facility] SWQBuK97(L)40 - 230 mg/dL 08/18/2025 10:24 AM [facility] LABSpecimen (Source)Anatomical Location / LateralityCollection Method / VolumeCollection TimeReceived Time BloodBLOOD SPECIMEN / UnknownVenipuncture / Ynobxyd8108/17/2025 10:03 AM EST 08/17/2025 10:03 AM EST Narrative Authorizing ProviderResult TypeResult StatusJaimee Yas VEGACNPLABORATORYFinal ResultPerforming OrganizationAddressty/State/ZIP CodePhone Number [facility] [address] [place] [phone], * (ABNORMAL) COMPREHENSIVE METABOLIC PANEL (08/17/2025 10:03 AM EST)Component ValueRef RangeTest MethodAnalysis TimePerformed AtPathologist Signature Protein, Total6.56.3 - 8.0 g/dL08/17/2025 10:36 AM [facility] LABAlbumin3.93.9 - 4.9 g/dL08/17/2025 10:36 AM ESTNOR[facility]CO[facility] LABCalcium, Total7.4(L)8.5 - 10.2 mg/dL08/17/2025 10:36 AM ESTNOR[facility]CO[facility] LABBilirubin, Total1.20.2 - 1.3 mg/dL 08/17/2025 10:36 AM ESTNOR[facility]CO[facility]ARR[facility] LABAlkaline Gefnjdkjqmu4070 - 113 U/L110/17/2024 10:36 AM [facility]NOR[facility] XSKVFW0076 - 40 U/L110/17/2024 10:36 AM [facility] ONLYSI7428 - 54 U/L110/17/2024 10:36 AM [facility] CTVYqvgdbf3109 - 99 mg/dL08/17/2025 10:36 AM [facility] LABComment: The [place] Diabetes Association (ADA) provides guidance for cutoff [...] Standards of Medical Care in Diabetes 2016, [place] Diabetes Association. Diabetes Care. 2016.39(Suppl 1). GRD476 - 24 mg/dL08/17/2025 10:36 AM [facility] LAB Creatinine1.44(H)0.73 - 1.22 mg/dL08/17/2025 10:36 AM [facility] RVUYpfckk719075 - 144 mmol/L110/17/2024 10:36 AM [facility] LABPotassium4.33.7 - 5.1 mmol/L110/17/2024 10:36 AM [facility] NVYHgjhqrvs67238 - 107 mmol/L110/17/2024 10:36 AM [facility] VYVLM45293 - 30 mmol/L110/17/2024 10:36 AM [facility] LABAnion Gap88 - 15 mmol/L110/17/2024 10:36 AM [facility] LABEstimated Glomerular Filtration Rate50(L)>=60 mL/min/1.73m 08/17/2025 10:36 AM [facility] LABComment:Estimated Glomerular Filtration Rate (eGFR) is [...] VolumeCollection TimeReceived TimeBloodBLOOD SPECIMEN / UnknownVenipuncture / Vmugtfg2508/17/2025 10:03 AM EST08/17/2025 10:03 AM EST Narrative Authorizing ProviderResult TypeResult StatusJaimee Yas PRESSER ALL AROUND.CNPLABORATORYFinal ResultPerforming OrganizationAddressCity/State/ZIP CodePhone Number [facility] [address] [place] [phone] * (ABNORMAL) COMPLETE BLOOD COUNT AND DIFFERENTIAL (08/17/2025 10:03 AM EST) ComponentValueRef RangeTest MethodAnalysis TimePerformed AtPathologist SignatureWBC4.453.70 - 11.00 k/uL08/17/2025 10:07 AM [facility] LABRBC3.61(L)4.20 - 6.00 m/uL08/17/2025 10:07 AM [facility] CQXCungzmhtjo84.113.0 - 17.0 g/dL08/17/2025 10:07 AM [facility] COQLcckczxkcr92.6(L)39.0 - 51.0 % 08/17/2025 10:07 AM [facility] TCIUAP062.2(H)80.0 - 100.0 fL08/17/2025 10:07 AM [facility] JNFZGO47.3(H) 26.0 - 34.0 pg08/17/2025 10:07 AM [facility] LABMCHC 34.830.5 - 36.0 g/dL08/17/2025 10:07 AM [facility] LABRDW-CV14.811.5 - 15.0 %08/17/2025 10:07 AM [facility] LABPlatelet Qzmmi822934 - 400 k/uL08/17/2025 10:07 AM [facility] DCTYTI24.19.0 - 12.7 fL08/17/2025 10:07 AM [facility] LABNeutrophils %47.2%08/17/2025 10:07 AM [facility] LABAbs Neut2.101.45 - 7.50 k/uL08/17/2025 10:07 AM [facility] LABLymphocytes %25.6%08/17/2025 10:07 AM [facility] LABAbs Lymph1.141.00 - 4.00 k/uL 08/17/2025 10:07 AM [facility] LABMonocytes %14.6% 08/17/2025 10:07 AM [facility] LABAbs Mono0.65<0.87 k/uL08/17/2025 10:07 AM [facility] LABEosinophils % 10.6%08/17/2025 10:07 AM [facility] LABAbs Eosin0.47 (H)<0.46 k/uL08/17/2025 10:07 AM [facility] LAB Basophils %1.8%08/17/2025 10:07 AM [facility] LABAbs Baso0.08<0.11 k/uL08/17/2025 10:07 AM [facility] LAB Immature Granulocytes %0.2%08/17/2025 10:07 AM [facility] LABAbs Immature Gran<0.03<0.10 k/uL08/17/2025 10:07 AM [facility] LABNRBC0.0/100 WBC08/17/2025 10:07 AM [facility] LABAbsolute nRBC<0.01<0.01 k/uL08/17/2025 10:07 AM EST [facility] LABDiff RrvhYqrs11/24/2025 10:07 AM EST [facility] LABSpecimen (Source)Anatomical Location / LateralityCollection Method / VolumeCollection TimeReceived TimeBloodBLOOD SPECIMEN / UnknownVenipuncture / Kgzuvbi7308/17/2025 10:03 AM EST08/17/2025 10:03 AM EST Narrative Authorizing ProviderResult TypeResult StatusJaimee Yas PRESSER ALL AROUND.CNPLABORATORYFinal ResultPerforming OrganizationAddressCity/State/ZIP CodePhone Number [facility] [address] [place] [address] from Last 3 Months Insurance Care Teams Team MemberRelationshipSpecialtyStart DateEnd Jose Alberto Young MD [address] [place] [address] [facility]01/27/03
--- OUTSIDE RECORDS SUMMARY | 2025-09-17 12:35 | XMS_ITS | Patient Health Record ---
Author Organization [facility] in [place] Address [address] [place] [address] Care Team Providers Care Medical Bill Processor Name Role Phone Doron Young Primary Care Provider [phone] Allergies Allergen (clinical drug ingredient) Drug/Non Drug Allergy documented on EMR Reaction Allergy Type Onset Date Status EntexUnknownDrug AllergyActivepantoprazoleProtonixanxietyDrug AllergyActive metoclopramideMetoclopramideanxietyDrug AllergyActiveneomycinNeomycinUnknownDrug AllergyActiveSubstance with sulfonamide structure and antibacterial mechanism of action (substance)Sulfa AntibioticsUnknownDrug AllergyActiveerythromycin ErythromycinUnknownDrug AllergyActive Results Component Value Reference Range Notes XR ribs LT 2V Reviewed date:06/05/2025 01:02:09 PM Interpretation: Performing Lab: Notes/Report: Source Facility: [place] [address] [place] [address] XRay Report Signed Patient: ZACH MANUEL MR#: [id number] : 1945 Acct:[id number] Age/Sex: 80 / M ADM Date: 06/05/25 Loc: RAD Attending Dr: Hanna Young M.D. Ordering Physician: Hanna Young M.D. Date of Service: 06/05/25 Procedure(s): XR ribs LT 2V Accession Number(s): [id number] cc: Hanna Young M.D. [place] [address] Patient Name: ZACH MANUEL MRN: [id number] date: 1945 Sex: M Assigned Patient Location: [facility] Current Patient Location: [facility] Accession/Order Number: [id number] Exam Date: 06/05/2025 09:55 Report Date: 06/05/2025 [...] Medrano M.D. 06/05/2025 10:48 AM Dictation Location: [place] [address] Electronically authenticated by: [id number] Y Date: 06/05/2025 10:48 Dictated By: Meredith Medrano M.D. Signed By: 06/05/25 1051 DD/ 1048 TD/TT: Boiler Control Technician: CBC AUTO DIFF Reviewed date:08/31/2025 12:48:08 PM Interpretation: Performing Lab: Notes/Report: [facility] , White Blood Count 8.6 4.0-11.0 10 3/uL Red Blood Count3.594.70-6.10 10 6/fEFxyaqsuqfd75.114.0-18.0 g/rMPqvocxbkka79.8 42.0-54.0 %Mean Corpuscular Sqdlqg641.580.0-94.0 fLMean Corpuscular Hemoglobin 36.525.9-34.0 pgMean Corpuscular HGB Conc35.629.9-35.2 g/dLRed Cell Distribution Width14.111.0-15.0 %Platelet Egkzk326578-420 10 3/uLMean Platelet Clmnhr89.19.5- 13.5 fLPerforming Lab:[facility] LBPROF 14(COMP METB) Reviewed date:08/31/2025 12:48:08 PM Interpretation: Performing Lab: Notes/Report: [facility] ,Laxplf255545-750 mmol/LPotassium4.23.5-5.1 mmol/BVutpansm24283-653 mmol/LCarbon Oijgvcr06.421.0-32.0 mmol/LAnion Gap9.0Khmftbg74268-633 mg/dLBlood Urea Nitrogen 28.07.0-18.0 mg/dLCreatinine1.510.70-1.30 mg/dLEstimated GFR ( Gxmqmzx46 >=60 mL/min/1.73m 2Estimated GFR (Non- Ame45>=60 mL/min/1.73m 2BUN Creatinine Ratio18.3Holgqxr7.98.5-10.1 mg/dLBilirubin Total1.50.2-1.0 mg/dL Aspartate Amino Uxjxdmnadsn5869-00 U/LAlanine Djokiijlfdqxfrxx1741-99 U/L Alkaline Ouyafebehjj2119-869 U/LTotal Protein7.06.4-8.2 g/dLAlbumin Level3.53.4- 5.0 g/dLGlobulin3.5Albumin Globulin Ratio1.0Performing Lab:see note - [facility] LBCalcium, Ionized, Serum Reviewed date:09/01/2025 04:05:26 PM Interpretation: Performing Lab: Notes/Report: [facility] ,Calcium, Ionized, Serum5.04.5-5.6 mg/dL Performed at: [facility] Lab[address] [id number] Data Warehouse Analyst: John Akers PhD, Phone: [phone] Performing Lab:see note - [facility] LBGLYCOHEMOGLOBIN A1C Reviewed date:04/09/2025 05:05:06 PM Interpretation: Performing Lab: Notes/Report: [facility] ,Glycohemoglobin A1C6.94.5-6.2 % ADA RECOMMENDED LIMIT 4.0 - 6.0 ADA THERAPEUTIC TARGET < 7.0 ACTION SUGGESTED > 7.0 Estimated Average Scbseuv934Vhlgaewsyr Lab:see note - [facility] LB PSA Total+% Free Reviewed date:04/17/2025 08:27:54 AM Interpretation: Performing Lab: Notes/Report: [facility] ,Prostate Specific Ag4.90.0-4.0 ng/mL [place] ECLIA methodology. According to the [employer], Serum PSA should decrease and [...] presence or absence of malignant disease. PSA, Free1.34N/A ng/mLRoche ECLIA methodology.% Free PSA27.3. % The table below lists the probability [...] any other population of men. Performed at: [facility] [address] [id number] Data Warehouse Analyst: John Akers PhD, Phone: [phone] Performing Lab:see [facility] LBFREE T3 Reviewed date:04/09/2025 05:05:06 PM Interpretation: Performing Lab: Notes/Report: [facility] ,Free T33.072.18-3.98 pg/mLPerforming Lab:see note - [facility] LB LIPID PROFILE Reviewed date:04/09/2025 05:05:06 PM Interpretation: Performing Lab: Notes/Report: [facility] ,Inzwkjzurcsnn441<=150 mg/uUQgwuefkluyn190<=200 mg/dLHDL Wonknkndigl7036-96 mg/dL > or =60 mg/dl - LOW CARDIOVASCULAR RISK <40 mg/dl - HIGH CARDIOVASCULAR RISK LDL Cholesterol Wnlhxhgjnl25.0 <100 mg/dl OPTIMAL 100-129 mg/dl NEAR OR ABOVE OPTIMAL 130-159 mg/dl BORDERLINE HIGH 160-189 mg/dl HIGH >190 mg/dl VERY HIGH VLDL XNRFWZKVZTA40.0Chol HDL Ratio2.2 3.3 - 4.4 LOW RISK 4.4 - 7.1 AVERAGE RISK 7.1 - 11.0 MODERATE RISK >11.0 HIGH RISK Performing Lab:see noteML - [facility] LBPROF 14(COMP METB) Reviewed date:04/09/2025 05:05:06 PM Interpretation: Performing Lab: Notes/Report: [facility] ,Dsfsyl851265-209 mmol/LPotassium4.13.5-5.1 mmol/VJbsszzdb90004-872 mmol/LCarbon Lpyeoym89.121.0-32.0 mmol/LAnion Gap9.8Bvqxoxh2431-148 mg/dLBlood Urea Nitrogen 22.07.0-18.0 mg/dLCreatinine1.600.70-1.30 mg/dLEstimated GFR ( Lcjeclc82 >=60 mL/min/1.73m 2Estimated GFR (Non- Ame42>=60 mL/min/1.73m 2BUN Creatinine Ratio13.5Zivebph0.98.5-10.1 mg/dLBilirubin Total0.90.2-1.0 mg/dL Aspartate Amino Hiifzfbebgm3168-61 U/LAlanine Kkaoocgpysdhgbfk3081-19 U/L Alkaline Gjfgurcduvk3941-370 U/LTotal Protein6.26.4-8.2 g/dLAlbumin Level2.93.4- 5.0 g/dLGlobulin3.3Albumin Globulin Ratio0.9Performing Lab:see noteML - [facility] LBPSA Reviewed date:04/09/2025 05:05:06 PM Interpretation: Performing Lab: Notes/Report: [facility] ,Prostate Specific Antigen Dx4.58<=4.00 ng/mLPerforming Lab:see noteML - [facility] LBT4 Reviewed date:04/09/2025 05:05:06 PM Interpretation: Performing Lab: Notes/Report: [facility] ,T4 Thyroxine4.404.50-12.10 ug/dLPerforming Lab:see noteML - [facility] LBTSH Reviewed date:04/09/2025 05:05:06 PM Interpretation: Performing Lab: Notes/Report: [facility] ,Thyroid Stimulating Hormone2.8000.358-3.740 uIU/mLPerforming Lab:see noteML - [facility] LBCBC AUTO DIFF Reviewed date:04/26/2025 07:42:31 PM Interpretation: Performing Lab: Notes/Report: [facility] ,White Blood Count5.34.0-11.0 10 3/uLRed Blood Count4.054.70-6.10 10 6/uL Crmjokequl00.314.0-18.0 g/rSEzevgnxtir17.442.0-54.0 %Mean Corpuscular Volume 102.280.0-94.0 fLMean Corpuscular Mfspwmckun40.325.9-34.0 pgMean Corpuscular HGB Conc34.529.9-35.2 g/dLRed Cell Distribution Width13.611.0-15.0 %Platelet Count 581128-326 10 3/uLMean Platelet Mvzmvz60.89.5-13.5 fLNeutrophils Percent Auto 61.643.0-75.0 %Lymphocytes Percent Auto18.820.5-60.0 %Monocytes Percent Auto11.6 1.7-12.0 %Eosinophils Percent Auto6.30.9-7.0 %Basophils Percent Auto1.30.2-2.0 % Immature Granulocytes Pct Auto0.40.0-0.5 %Neutrophils Absolute Auto3.21.4-6.5 10 3/uLLymphocytes Absolute Auto1.01.2-3.8 10 3/uLMonocytes Absolute Auto0.60.3-0.8 10 3/uLEosinophils Absolute Auto0.30.0-0.7 10 3/uLBasophils Absolute Auto0.10.0- 0.1 10 3/uLImmature Granulocytes Abs Auto0.020.00-0.03 10 3/uLPerforming Lab:see noteML - [facility] LBXR chest 2V Reviewed date:06/05/2025 01:02:09 PM Interpretation: Performing Lab: Notes/Report: Source Facility: [facility]-[address] [place] [address] [place] [address] XRay Report Signed Patient: ZACH MANUEL MR#: [id number] : 1945 Acct:[id number] Age/Sex: 80 / M ADM Date: 06/05/25 Loc: RAD Attending Dr: Hanna Young M.D. Ordering Physician: Hanna Young M.D. Date of Service: 06/05/25 Procedure(s): XR chest 2V Accession Number(s): [id number] cc: Hanna Young M.D. [place] [address] Patient Name: ZACH MANUEL MRN: [id number] date: 1945 Sex: M Assigned Patient Location: [facility] Current Patient Location: [facility] Accession/Order Number: [id number] Exam Date: 06/05/2025 09:55 Report Date: 06/05/2025 [...] Medrano M.D. 06/05/2025 10:48 AM Dictation Location: [place] [address] Electronically authenticated by: [id number] Y Date: 06/05/2025 10:48 Dictated By: Meredith Medrano M.D. Signed By: 06/05/25 1051 DD/ 1048 TD/TT: Boiler Control Technician:CREATININE Reviewed date:08/05/2025 07:10:05 PM Interpretation: Performing Lab: Notes/Report: [facility] ,Creatinine1.340.70-1.30 mg/dLEstimated GFR ( Meredith>60>=60 mL/min/1.73m 2Estimated GFR (Non- Ame52>=60 mL/min/1.73m 2Performing Lab:see noteML - [facility] LBCBC AUTO DIFF Reviewed date:08/24/2025 02:40:31 PM Interpretation: Performing Lab: Notes/Report: [facility] ,White Blood Count4.14.0-11.0 10 3/uLRed Blood Count3.354.70-6.10 10 6/uL Zopdfpvpaw47.114.0-18.0 g/fFZvfitlnlmt21.542.0-54.0 %Mean Corpuscular Volume 106.080.0-94.0 fLMean Corpuscular Yuifjgoxkc87.125.9-34.0 pgMean Corpuscular HGB Conc34.129.9-35.2 g/dLRed Cell Distribution Width14.811.0-15.0 %Platelet Count 103553-506 10 3/uLMean Platelet Aubhyp08.59.5-13.5 fLNeutrophils Percent Auto 47.643.0-75.0 %Lymphocytes Percent Auto27.220.5-60.0 %Monocytes Percent Auto15.1 1.7-12.0 %Eosinophils Percent Auto7.70.9-7.0 %Basophils Percent Auto2.20.2-2.0 % Immature Granulocytes Pct Auto0.20.0-0.5 %Neutrophils Absolute Auto1.91.4-6.5 10 3/uLLymphocytes Absolute Auto1.11.2-3.8 10 3/uLMonocytes Absolute Auto0.60.3-0.8 10 3/uLEosinophils Absolute Auto0.30.0-0.7 10 3/uLBasophils Absolute Auto0.10.0- 0.1 10 3/uLImmature Granulocytes Abs Auto0.010.00-0.03 10 3/uLPerforming Lab:see noteML - [facility] LBECG 12 lead Reviewed date:08/24/2025 02:40:31 PM Interpretation: Performing Lab: Notes/Report: Source Facility: [facility]-[address] [place] [address] Electrocardiograph Report Signed Patient: ZACH MANUEL MR#: [id number] : 1945 Acct:[id number] Age/Sex: 80 / M ADM Date: 08/24/25 Loc: PST Attending Dr: Mena Rosales M.D. Ordering Physician: Mena Rosales M.D. Date of Service: 08/24/25 Procedure(s): ECG 12 lead Accession Number(s): [id number] cc: [facility] Test Date: 2025-08-24 Pat Name: ZACH MANUEL Department: Room: - Gender: Male Account Solutions Analyst: : 1945 Requested By: MENA ROSALES Order Number: [id number] Amrita MD: Freeman Rene Measurements Intervals [place] Rate: 58 P: 34 IN: 128 QRS: 54 QRSD: 142 T: 43 QT: 473 QTc: 468 Interpretive Statements SINUS BRADYCARDIA POSSIBLE LEFT ATRIAL ENLARGEMENT [-0.1mV P WAVE IN V1/V2] RIGHT BUNDLE BRANCH BLOCK [120+ ms QRS DURATION, UPRIGHT V1, 40+ ms S IN I/aVL/V4/V5/V6] Compared to ECG 07/04/2019 20:21:21 Sinus tachycardia no longer present Electronically Signed On 08-24-2025 13:33:36 EST by Freeman Rene Dictated By: RFEEMAN RENE M.D. Signed By: 08/24/25 2293 DD/ 1204 TD/TT: Boiler Control Technician:CBC AUTO DIFF (Not yet reviewed by provider) Interpretation: Performing Lab: Notes/Report: [facility] ,White Blood Count7.44.0-11.0 10 3/uLRed Blood Count3.574.70-6.10 10 6/uL Ypamvdsydx82.014.0-18.0 g/gZImpyzopkuv74.442.0-54.0 %Mean Corpuscular Volume 104.880.0-94.0 fLMean Corpuscular Dseupeqgkc97.425.9-34.0 pgMean Corpuscular HGB Conc34.829.9-35.2 g/dLRed Cell Distribution Width13.911.0-15.0 %Platelet Count 896145-010 10 3/uLMean Platelet Cicyqn44.09.5-13.5 fLNeutrophils Percent Auto 80.643.0-75.0 %Lymphocytes Percent Auto5.820.5-60.0 %Monocytes Percent Auto10.6 1.7-12.0 %Eosinophils Percent Auto1.80.9-7.0 %Basophils Percent Auto0.40.2-2.0 % Immature Granulocytes Pct Auto0.80.0-0.5 %Neutrophils Absolute Auto5.91.4-6.5 10 3/uLLymphocytes Absolute Auto0.41.2-3.8 10 3/uLMonocytes Absolute Auto0.80.3-0.8 10 3/uLEosinophils Absolute Auto0.10.0-0.7 10 3/uLBasophils Absolute Auto0.00.0- 0.1 10 3/uLImmature Granulocytes Abs Auto0.060.00-0.03 10 3/uLPerforming Lab:see noteML - [facility] LBPROF CHEM 8 (BAS METB) Reviewed date:08/24/2025 02:40:31 PM Interpretation: Performing Lab: Notes/Report: [facility] ,Zbpvgl047221-437 mmol/LPotassium4.63.5-5.1 mmol/TOemnuxyl67996-210 mmol/LCarbon Qbdiiza95.621.0-32.0 mmol/LAnion Gap9.6Ikqwsvt9100-691 mg/dLBlood Urea Nitrogen 24.07.0-18.0 mg/dLCreatinine1.570.70-1.30 mg/dLEstimated GFR ( Dtbbhde81 >=60 mL/min/1.73m 2Estimated GFR (Non- Ame43>=60 mL/min/1.73m 2BUN Creatinine Ratio15.4Qqojgiz7.08.5-10.1 mg/dLPerforming Lab:see noteML - [facility] LBCT abdomen pelvis w con Reviewed date:08/05/2025 07:10:05 PM Interpretation: Performing Lab: Notes/Report: Source Facility: [place] [address] CT Scan Report Signed Patient: ZACH MANUEL MR#: [id number] : 1945 Acct:[id number] Age/Sex: 80 / M ADM Date: 08/05/25 Loc: LAB Attending Dr: Hanna Young M.D. Ordering Physician: Hanna Young M.D. Date of Service: 08/05/25 Procedure(s): CT abdomen pelvis w con Accession Number(s): [id number] cc: Hanna Young M.D. [place] [address] Patient Name: ZACH MANUEL MRN: [facility]:[id number] date: 1945 Sex: M Assigned Patient Location: LAB Current Patient Location: LAB Accession/Order Number: [id number] Exam Date: 08/05/2025 09:55 Report Date: 08/05/2025 11:10 At the request of: HANNA YOUNG MD Procedure: CT abdomen pelvis w con CT ABDOMEN AND PELVIS WITH CONTRAST COMPARISON: None CLINICAL DATA: Left groin pain Spiral images were obtained through the abdomen and pelvis following oral and 100 mL of Omnipaque [address] exam was performed using one or more following dose reduction techniques: Automated exposure control, adjustment of the mA and/or kV according to patient size, or use of iterative reconstruction technique. Limited cuts through the lung bases show minimal atelectasis. The very top of the hepatic dome is not included in its entirety. The liver is otherwise unremarkable. The gallbladder is surgically absent. The spleen, pancreas and adrenal glands show no acute findings. There is minor perinephric fibrofatty stranding. The renal nephrograms are symmetric. No hydronephrosis is identified. Renal cysts are visualized, larger on the right. There is atherosclerotic plaque at the aorta and iliac arteries. There are no enlarged lymph nodes or ascites. There is air and a small amount of fluid within the stomach. Small bowel loops are normal caliber. There is prior colectomy. There are multilevel postoperative and mild degenerative changes at the spine. Images through the pelvis show anastomosis at the sigmoid colon. A small amount of fluid is seen at the rectum. There is air within the bowel proximal to the anastomosis. The remaining small bowel loops are not distended. The prostate is enlarged and there is mass effect at the bladder trigone. The urinary bladder is poorly distended and the wall is thickened. There is a moderate to large left inguinal hernia containing mesenteric fat and a trace amount of fluid. No intrapelvic ascites is identified. CT/CT abdomen pelvis w con IMPRESSION: RENAL CYSTS. POSTOPERATIVE CHANGES OF SUBTOTAL COLECTOMY. PROSTATE HYPERTROPHY. UNDER DISTENDED URINARY BLADDER WITH WALL THICKENING. LEFT INGUINAL HERNIA CONTAINING MESENTERIC FAT AND A SMALL AMOUNT OF FLUID. Impression dictated by: eMredith Medrano M.D. 08/05/2025 11:10 AM Dictation Location: [place] [address] Electronically authenticated by: [id number] Y Date: 08/05/2025 11:10 Dictated By: Meredith Medrano M.D. Signed By: 08/05/25 1113 DD/ 1110 TD/TT: Boiler Control Technician:CBC AUTO DIFF Reviewed date:04/09/2025 05:05:06 PM Interpretation: Performing Lab: Notes/Report: [facility] ,White Blood Count3.84.0-11.0 10 3/uLRed Blood Count3.834.70-6.10 10 6/uL Xhdxnxowud47.614.0-18.0 g/eHQuxoiezzhs93.042.0-54.0 %Mean Corpuscular Volume 101.880.0-94.0 fLMean Corpuscular Ithtgvviyf60.525.9-34.0 pgMean Corpuscular HGB Conc34.929.9-35.2 g/dLRed Cell Distribution Width13.811.0-15.0 %Platelet Count 988586-101 10 3/uLMean Platelet Aqawkn88.19.5-13.5 fLNeutrophils Percent Auto 58.343.0-75.0 %Lymphocytes Percent Auto21.020.5-60.0 %Monocytes Percent Auto13.0 1.7-12.0 %Eosinophils Percent Auto5.30.9-7.0 %Basophils Percent Auto2.10.2-2.0 % Immature Granulocytes Pct Auto0.30.0-0.5 %Neutrophils Absolute Auto2.21.4-6.5 10 3/uLLymphocytes Absolute Auto0.81.2-3.8 10 3/uLMonocytes Absolute Auto0.50.3-0.8 10 3/uLEosinophils Absolute Auto0.20.0-0.7 10 3/uLBasophils Absolute Auto0.10.0- 0.1 10 3/uLImmature Granulocytes Abs Auto0.010.00-0.03 10 3/uLPerforming Lab:see noteML - [facility] Reason For Referral Diagnosis 1 Hernia (K46.9) Referral Organization [facility] Referring Provider First Name Doron Referring Provider Last Name Hector Referring Provider Speciality Family Med efrem Referred Provider Mena Rosales Referred Provider Specialty General Surg anne Referral Priority Routine Medications Medication SIG (Take, Route, Frequency, Duration) Notes Start Date End Date Status oxyCODONE HCl 10 MG 1 Orally dx M54.12 qid prn; Duration: 30 days 5ActiveJardiance 10 MGTake 1 tablet by mouth once daily; Duration: 90 ActivehydrOXYzine HCl 25 MG1 tablet as needed Orally Once a day; Duration: 30 days5ActiveglyBURIDE Micronized 6 MG1 tablet with breakfast or the first main meal of the day Orally twice a day; Duration: 90 daysActive Triamcinolone Acetonide 0.1 %1 application Externally bid5Active metFORMIN HCl 500 MGTake 1 tablet by mouth 4 times daily; Duration: Active Liothyronine Sodium 5 MCGTake 2 tablets Orally Once a day; Duration: 90 days ActiveKetoconazole 2 %1 application Externally twide daily; Duration: 7 days 5ActiveDexilant 60 MG1 capsule Orally Once a day; Duration: 30 days ActiveRevlimid 5 MGOral; Duration: 28 DaysActivePioglitazone HCl 30 MGTake 1 tablet by mouth once daily; Duration: ActivePantoprazole Sodium 40 MG1 tablet 1/2 to 1 hour before morning meal Orally Once a day; Duration: 30 days06/08/2025 Active Immunizations Vaccine Route Administration Date Status Comme nts Abrysvo Unknown 07/07/2023 Administered OcgvokoIeafsqn08/12/2024AdministeredFlu, Fluad (58168) 65 yrs+, single-dose syringe (8968-8380)IM Jkguvesdyesgm84/31/2023dministeredFlu, Fluarix (21152) 6 mos and older, single-dose syringe ()IM Wqnaicquswtun78/13/2024 AdministeredTdap (Boostrix)Niwhfac8105/24/2025dministered Social History Tobacco Use: Social History Observation [...] alcohol in the p ast year? No Pkfjrx3ZxlyluksyuqjcgQmgptoflJMHLM-Q (Standard) Question Answer Notes Did you have a drink containing alcohol in the p ast year? 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)ActiveconfirmedProblemHyperlipidemia (30372151) Hyperlipidemia (E78.5)ActiveconfirmedProblemAsthma (129932580)Asthma (J45.909) ActiveconfirmedProblemGastroesophageal reflux disease (424113120)GERD (gastroesophageal reflux disease) (K21.9)ActiveconfirmedProblemCervical radiculopathy (31688762)Cervical radiculopathy (M54.12)ActiveconfirmedProblem Anxiety (57589598)Anxiety (F41.9)ActiveconfirmedProblemEdema (05509486)Edema (R60.9)ActiveconfirmedProblemPeripheral neuropathy (235799906)Peripheral neuropathy (G62.9)ActiveconfirmedProblemEczema (69401556)Eczema (L30.9)Active confirmedProblemArthralgia (52684259)Arthralgia (M25.50)ActiveconfirmedProblem Disorder of lumbar disc (439630867)Lumbar disc disease (M51.9)Activeconfirmed ProblemUlcerative colitis (05822430)Ulcerative colitis (K51.90)Activeconfirmed ProblemCellulitis (251453148)Cellulitis (L03.90)ActiveconfirmedProblemChest wall pain (680912651)Chest wall pain (R07.89)ActiveconfirmedProblemCrohns disease (84280710)Crohns disease (K50.90)ActiveconfirmedProblemAcquired spondylolisthesis (388714222)Acquired spondylolisthesis (M43.10)Activeconfirmed ProblemDegenerative joint disease (119942736)Degenerative joint disease (M19.90) ActiveconfirmedProblemLumbosacral spondylosis (991448467)Lumbosacral spondylosis (M47.817)ActiveconfirmedProblemAbnormal hemoglobin (1626046)Abnormal hemoglobin (D58.2)ActiveconfirmedProblemHernia (046466905)Hernia (K46.9)Activeconfirmed ProblemRight bundle branch block (78997671)Bundle branch block, right (I45.10) ActiveconfirmedProblemHypercholesterolemia (16928372)Hypercholesterolemia (E78.00)ActiveconfirmedProblemElevated PSA (950064211)Elevated prostate specific antigen [PSA] (R97.20)ActiveconfirmedProblemAbnormal white blood cell (57044915) Abnormal white blood cell (D72.9)ActiveconfirmedProblemMyalgia (68524892)Myalgia (M79.10)ActiveconfirmedProblemType II diabetes mellitus without complication (965215015)Diabetes (E11.9)ActiveconfirmedProblemDiabetes mellitus (93871317) Diabetes mellitus (E11.9)ActiveconfirmedProblemChronic kidney disease stage 3B (disorder) (002879245)Chronic kidney disease, stage 3b (N18.32)Activeconfirmed Vital Signs Temperature 98.4 degrees Fahrenheit 08/31/2025 Blood pressure jficmpoip19 mm Hg08/31/20259850Twyyhg22 in08/31/2025lood pressure smahofrj003 mm Hg08/31/20259205Eznzzb718.6 lbs111/01/2024BMI27.55 kg/m208/31/2025 Procedures Procedure Date Ordered Date Performed Result Body Sit e ECG with Interpretation 08/31/2025 N/A Encounters Encounter Location Date Provider Diagnosis [address] [address] 12/12/2024 Doron Hoy Lumbar disc disease M51.[address] [address] 06/04/2025 Doron Hoy Chest wall pain R07. 89 ; Monoclonal gammopathy D47.2 ; Asthma J45.909 and Diabetes mellitus E11.[address] [address] 07/27/2025 Doron Hoy Hernia K46.9 ; Edema R60.9 and Eczema L30.[address] [address] 08/31/2025 Doron Hoy Hernia K46.9 [facility] [address] [place] [place] [address] 10/13/2024 Doron Hoy Diabetes mellitus E11.9 [facility] [address] [facility] [place] [address] 10/29/2024 Doron Hoy [facility] [facility] [place] [address] 11/11/2024Doug HoyDiabetes mellitus E11.9[facility] [facility] [place] [address]/Doug HoyLumbar disc disease M51.9 [facility] [facility] [place] [address] 02/09/2025Doug HoyLumbar disc disease M51.9B[facility] [place] [facility] [place] [address]/05/2025[facility] [place] [facility] [place] [address]/Doug HoyLumbar disc disease M51.9B[facility] [place] [facility] [place] [address]/Doug HoyDiabetes mellitus E11.9 ; Peripheral neuropathy G62.9 ; Anxiety F41.9 ; Hyperlipidemia E78.5 and Elevated PSA R97.20[facility] [facility] [place] [address]/ Doron HoyLumbar disc disease M51.9B[facility] [place] [facility] [place] [address]/Doug HoyAbnormal white blood cell D72.9 and Elevated PSA R97.20[facility] [facility] [place] [address]/Doug Ho[facility] [place] [place] [address]/11/2024[facility] [facility] [place] [address]/Doug HoyLumbar disc disease M51.9[facility] [facility] [place] [address]/08/2025[facility] [facility] [place] [address]/[facility] [facility] [place] [address]/[facility] [facility] [place] [address]/06/2025Doug HoyChest wall pain R07.89[facility] [facility] [place] [address]/07/2025Doug HoyChest wall pain R07.89[facility] [facility] [place] [address]/08/2025[facility] [facility] [address] [facility] [place] [address]/ [facility] [facility] [place] [address]/10/2024Doug HoyAbnormal hemoglobin D58.2 and Chronic kidney disease, stage 3b N18.32[facility] [facility] [place] [address]/04/2025[facility] [facility] [place] [address]/07/2025Doug HoyChest wall pain R07.89 Assessments Encounter Date Diagnosis (ICD Code) Assessment Notes Treatment Notes Treatment Clinical Notes Section Notes 08/31/2025 Hernia (ICD-10 - K46.9) No hx CAD, No hx Mckin[facility] sunny repeat ECG dn labs today - if all unchanged - cleared for OR ECG repeated in office with [facility] pac but no acure changes - persistend RBBB 10/13/2024Diabetes mellitus (ICD-10 - E11.9)11/11/2024Diabetes mellitus (ICD-10 - E11.9)01/12/2025Lumbar disc disease (ICD-10 - M51.9)02/09/2025Lumbar disc disease (ICD-10 - M51.9)03/12/2025Lumbar disc disease (ICD-10 - M51.9)04/08/2025 Diabetes mellitus (ICD-10 - E11.9)04/08/2025Peripheral neuropathy (ICD-10 - G62.9)04/09/2025Lumbar disc disease (ICD-10 - M51.9)04/09/2025bnormal white blood cell (ICD-10 - D72.9)04/09/2025Elevated PSA (ICD-10 - R97.20)05/07/2025 Lumbar disc disease (ICD-10 - M51.9)07/03/2025hest wall pain (ICD-10 - R07.89) 08/04/2025hest wall pain (ICD-10 - R07.89)08/25/2025bnormal hemoglobin (ICD-10 - D58.2)08/25/2025hronic kidney disease, stage 3b (ICD-10 - N18.32)09/03/2025 Chest wall pain (ICD-10 - R07.89)12/12/2024Lumbar disc disease (ICD-10 - M51.9) 06/04/2025hest wall pain (ICD-10 - R07.89)06/04/2025Monoclonal gammopathy (ICD- 10 - D47.2)07/27/2025Hernia (ICD-10 - K46.9)07/27/2025Edema (ICD-10 - R60.9) not [...] PANEL (CHOL/TRIG/HDL/LDL) 04/09/20 23 CBC WITH DIFF (EXP 07/2025) 04/09/2023 PSA, PROSTATE-SPECIFIC ANTIGEN 3 ECG with Interpretation 08/31/2025 CBC 08/25/2025 COMPREHENSIVE METABOLIC PROFILE WITH GFR 04/14/2024 COMPREHENSIVE METABOLIC PROFILE WITH GFR 04/08/2025 OCCULT BLOOD, FECAL, IMMUNOASSAY 024 OCCULT BLOOD, FECAL, IMMUNOASSAY 025 BMP - Basic Metabolic Panel 08/25/2025 CBC W/AUTO DIFF 04/08/2025 CBC W/AUTO DIFF 04/14/2024 CBC AUTO DIFF 04/09/2025 CBC AUTO DIFF 09/17/2025 CT ABD and PELV W CON 07/27/2025 XR CHEST 2 V 06/04/2025 THYROID PANEL (T4/TSH/FREE T3) 3 THYROID PANEL (T4/TSH/FREE T3) 4 THYROID PANEL (T4/TSH/FREE T3) 5 Free PSA 04/15/2024 PSA Total+% Free 04/15/2024 PSA, SCREENING 04/14/2024 PSA, SCREENING 04/08/2025 Lipid Panel 04/08/2025 Lipid Panel 04/14/2024 Next Appt Details Provider Name:Doron Lopez Hector, 10:45:00 AM, [address] [facility], [place], [address], Insurance Providers Payer Name Payer Address Payer Phone Subscriber Number Group Number Insured Name Patient Relationship to Insured Coverage Start Date Coverage End Date [place]IC[place] [address] [place] [address] [id number] [place] Manuel - patient is the insuredFOR[facility]ID[facility] INSPO [address] [place]ÚL [place]ACHO [id number] [place] Varela - patient is the insured [...] G62.9 Hypercholesterolemia E78.00 Surgical History Surgery Date(Month/Year) Bilat Cataract extraction APPENDECTOMYTONSILLECTOMY,OVER 12 YRSColectomyBladder removalInguinal Hreniorrhaphy, left02/2010, 08/2025Spermatocele- rttaivea85/2010 Reduction&internal fixation subtrochanteric Rt Femur01/2019
--- NOTE | 2025-09-17 12:36 | CT_ITS ---
The [address] [address] Patient Name: MATTHEW RAMESH MRN: [id number] date: 1945 Sex: M Assigned Patient Location: ER Current Patient Location: ER Accession/Order Number: [id number] Exam Date: 09/17/2025 13:35 Report Date: 09/17/2025 14:37 At the request of: JAZZ INGRAM DO Procedure: CT abdomen pelvis w con CT Abdomen and Pelvis withcontrast TECHNIQUE: Axial imaging with 2-D reconstruction. The CT exam was performed using one or more the following dose reduction techniques: Automated exposure control, adjustment of the MA and/or Kv according to patient size, or use of the iterative reconstruction technique. COMPARISON: 08/05/2025 History: Generalized abdominal pain. Vomiting. Recent hernia repair. Hernia identified in the prior examination in the left inguinal region. LIMITATIONS: None LOWER THORAX right posterior basilar groundglass parenchymal density. Atelectasis/pneumonitis. Nonspecific regional soft tissue prominence in the left lateral chest wall inferior to the scapula. LIVER: Unremarkable GALLBLADDER: Cholecystectomy clips identified. BILE DUCTS: No dilatation SPLEEN: Unremarkable PANCREAS: Unremarkable ADRENAL GLANDS: Unremarkable KIDNEYS:Simple appearing right renal cyst. No hydronephrosis. AORTA: No abdominal aortic aneurysm identified. Atherosclerosis. RETROPERITONEUM: No significant retroperitoneal abnormalities identified. MESENTERY:Unremarkable STOMACH:Unremarkable SMALL BOWEL: The small bowel loops are nondistended. APPENDIX: Absent COLON: Colectomy changes URINARY BLADDER: Urinary bladder is unremarkable. REPRODUCTIVE SYSTEM: Prostatomegaly PNEUMOPERITONEUM: None PERITONEAL FLUID:None BONY STRUCTURES: Unremarkable ABDOMINAL WALL: In the region of the surgical bed of the left inguinal hernia repair there is a multiloculated fluid collection which contains foci of air. This measures up to 9 cm. There is wall thickening. There is adjacent inflammation. CT/CT abdomen pelvis w con IMPRESSION: The region of the left inguinal repair surgical bed there is multiloculated fluid collection with foci of air measuring up to 9 cm and appears adjacent inflammation or wall thickening. Primary concern for abscess formation. No bowel herniation. Impression dictated by: Jong Madsen M.D. 09/17/2025 2:37 PM Dictation Location: [facility] Electronically authenticated by: [id number] Y Date: 09/17/2025 14:37
[2025-09-17] MEDS: 0.9 % SODIUM CHLORIDE 1,000 ML 1000 ML IV (12:51)
--- NOTE | 2025-09-17 12:56 | ED.GENADUL1 ---
HPI HPI - General Adult General Chief complaint: Weakness Stated complaint: WEAKNESS VOMITING Time Seen by Provider: 09/17/25 11:46 Source: patient and family Mode of arrival: walk-in Limitations: no limitations History of Present Illness HPI narrative: Patient is a 80-year-old male presenting to the emergency department for concerns of vomiting. Patient states his vomiting has been intermittent over many years. He feels that the symptoms have worsened because he feels rundown from taking care of his at home who requires a lot of care. He states he has vomited multiple times over the last few days. He still able to eat and drink appropriately. States he has diarrhea, or this is chronic since his colectomy secondary to ulcerative colitis many years ago. He is recently 3 weeks postop from an abdominal hernia repair. He denies chest pain or shortness breath. No fevers or chills. Related Data Home Medications ?Medication ?Instructions ?Recorded ?Confirmed empagliflozin 10 mg tablet 10 mg PO Q24H 09/25/23 09/17/25 (Jardiance) glyburide micronized 6 mg tablet 6 mg PO Q12H 09/25/23 09/17/25 metformin 500 mg tablet 1,000 mg PO BID 09/25/23 08/24/25 oxycodone 10 mg tablet 10 mg PO PRN 09/25/23 09/17/25 pantoprazole 40 mg tablet,delayed 40 mg PO QDAY 01/31/25 09/17/25 release lenalidomide 10 mg capsule 10 mg PO DAILY 08/24/25 09/17/25 (Revlimid) lenalidomide 5 mg capsule 5 mg PO DAILY 09/17/25 09/17/25 liothyronine 5 mcg tablet 10 mcg PO DAILY 09/17/25 09/17/25 pioglitazone 30 mg tablet 30 mg PO DAILY 09/17/25 09/17/25 Previous Rx's ?Medication ?Instructions ?Recorded cefdinir 300 mg capsule 300 mg PO BID 5 days #10 caps 09/17/25 metronidazole 500 mg tablet 500 mg PO BID 5 days #10 tabs 09/17/25 Allergies Allergy/AdvReac Type Severity Reaction Status Date / Time guaifenesin (From Entex [place]) Allergy Unknown Verified 09/02/25 09:42 neomycin Allergy Unknown Verified 09/02/25 09:42 phenylephrine (From Entex [place]) Allergy Unknown Verified 09/02/25 09:42 phenylpropanolamine (From Allergy Unknown Verified 09/02/25 09:42 Entex [place]) Sulfa (Sulfonamide Allergy kidney Verified 09/02/25 09:42 Antibiotics) stones metoclopramide AdvReac Intermediate suicidal Verified 09/02/25 09:42 erythromycin base AdvReac Swelling Verified 09/02/25 09:42 of the Eye Opioid HPI Opioid Management Most Recent Opioid Data: Last Pain Scale 4 Today, 13:26 Last ED Pain Assessment Today, 13:26 Last MAR Pain Assessment Today, 13:21 Review of Systems ROS Status of ROS 10 or more systems reviewed and unremarkable except as noted in history and below [facility] Medical History (Updated 09/17/25 @ 15:31 by Tien White DO) Back pain ?M54.9 - Dorsalgia, unspecified (ICD-10) Arthritis ?M19.90 - Unspecified osteoarthritis, unspecified site (ICD-10) History of blood transfusion ?Z92.89 - Personal history of other medical treatment (ICD-10) Neuropathy ?G62.9 - Polyneuropathy, unspecified (ICD-10) Elevated PSA ?R97.20 - Elevated prostate specific antigen [PSA] (ICD-10) Kidney stones ?N20.0 - Calculus of kidney (ICD-10) GERD (gastroesophageal reflux disease) ?K21.9 - Gastro-esophageal reflux disease without esophagitis (ICD-10) Extremity edema ?R60.0 - Localized edema (ICD-10) Diabetes ?E11.9 - Type 2 diabetes mellitus without complications (ICD-10) Urge incontinence ?N39.41 - Urge incontinence (ICD-10) Chronic kidney disease ?N18.9 - Chronic kidney disease, unspecified (ICD-10) Right bundle branch block ?I45.10 - Unspecified right bundle-branch block (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 Nocturia ?R35.1 - Nocturia (ICD-10) Multiple myeloma ?C90.00 - Multiple myeloma not having achieved remission (ICD-10) 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, unspecified (ICD-10) Ulcerative colitis ?K51.90 - Ulcerative colitis, unspecified, without complications (ICD-10) Eczema ?L30.9 - Dermatitis, unspecified (ICD-10) Hearing loss ?H91.90 - Unspecified hearing loss, unspecified ear (ICD-10) BPH with obstruction/lower urinary tract symptoms ?N40.1 - Benign prostatic hyperplasia with lower urinary tract symptoms (ICD-10) ?N13.8 - Other obstructive and reflux uropathy (ICD-10) Left inguinal hernia ?K40.90 - Unilateral inguinal hernia, without obstruction or gangrene, not specified as recurrent (ICD-10) Surgical History (Updated 08/24/25 @ 13:01 by Perlita Rutledge NP) H/O removal of cyst ?Z98.890 - Other specified postprocedural states (ICD-10) History of tonsillectomy ?Z90.89 - Acquired absence of other organs (ICD-10) History of lumbosacral spine surgery ?Z98.890 - Other specified postprocedural states (ICD-10) H/O inguinal hernia repair ?Z98.890 - Other specified postprocedural states (ICD-10) ?Z87.19 - Personal history of other diseases of the digestive system (ICD-10) History of colonoscopy ?Z98.890 - Other specified postprocedural states (ICD-10) S/P cataract extraction and insertion of intraocular lens ?Z98.49 - Cataract extraction status, unspecified eye (ICD-10) ?Z96.1 - Presence of intraocular lens (ICD-10) H/O total colectomy ?Z90.49 - Acquired absence of other specified parts of digestive tract (ICD-10) History of cholecystectomy ?Z90.49 - Acquired absence of other specified parts of digestive tract (ICD-10) History of appendectomy ?Z90.49 - Acquired absence of other specified parts of digestive tract (ICD-10) History of open reduction and internal fixation (ORIF) procedure ?Z98.890 - Other specified postprocedural states (ICD-10) Family History (Updated 08/24/25 @ 12:49 by Perlita Rutledge NP) Other Arrhythmia Family history of cancer Family history of diabetes mellitus Social History (Updated 09/02/25 @ 09:45 by Aury Harrell) Within the past year, how often did you have a drink containing alcohol: never Score interpretation: A score less than 4 is consistent with normal alcohol consumption. Smoking status: Former smoker Non-prescribed substance use: denies use Previous occupational history: [employer] Highest level of school completed/degree received: high school graduate Little interest or pleasure in doing things: not at all Feeling down, depressed, or hopeless: not at all Exam Narrative Exam Narrative: CONSTITUTIONAL: Appears fatigued but nontoxic, answering questions and following commands appropriately SKIN: Was warm and dry. EYES: Sclerae white. No conjunctival pallor. EARS, NOSE, THROAT: Moist oral mucosa. RESPIRATORY: Clear to auscultation bilaterally, no wheezes, crackles, or stridor, no use of accessory muscles CARDIOVASCULAR: Normal rate and regular rhythm. There is no S3, S4, murmur, rub. GASTROINTESTINAL: Abdomen is soft, nontender, nondistended. No rebound tenderness or guarding. Midline abdominal surgical scar is well-healed without infectious changes. MUSCULOSKELETAL: No peripheral edema. NEUROLOGIC: Patient is awake and alert. Facies were symmetrical. Constitutional Vital Signs, click to edit/add: Last Vital Signs Temp 98.2 F 09/17/25 12:00 Pulse 65 09/17/25 12:00 Resp 18 09/17/25 12:00 BP 127/62 09/17/25 12:00 Pulse Ox 100 09/17/25 12:00 O2 Del Method Room Air 09/17/25 12:00 Course Vital Signs Vital signs: Vital Signs Temperature 98.2 F 09/17/25 12:00 Pulse Rate 65 09/17/25 12:00 Respiratory Rate 18 09/17/25 12:00 Blood Pressure 127/62 09/17/25 12:00 Pulse Oximetry 100 09/17/25 12:00 Oxygen Delivery Method Room Air 09/17/25 12:00 Temperature 98.2 F 09/17/25 12:00 Pulse Rate 65 09/17/25 12:00 Respiratory Rate 18 09/17/25 12:00 Blood Pressure 127/62 09/17/25 12:00 Pulse Oximetry 100 09/17/25 12:00 Oxygen Delivery Method Room Air 09/17/25 12:00 Medical Decision Making MDM Narrative Medical decision making narrative: Patient is a 80-year-old male presenting to the emergency department for acute on chronic episodes of vomiting. Of note, he is 3 weeks postop from an abdominal hernia repair. His vital signs on arrival are within normal limits. He is afebrile and hemodynamically stable. Examination as noted above. Differential diagnose includes acute on chronic vomiting, dehydration, associated electrolyte/metabolic derangement, or complications related to recent intra-abdominal surgery. IV was established and laboratory studies were obtained. He was given 1 L bolus normal saline and IV Zofran for symptomatic treatment. CT abdomen/pelvis with IV contrast was ordered. Laboratory studies were unremarkable. No significant electrolyte or metabolic derangement. There is evidence of a mild acute kidney injury with a creatinine of 2.06 up from his baseline of 1.5. No significant anemia, leukocytosis, or thrombocytopenia. No transaminitis or hyperbilirubinemia. Troponin nonelevated. 12 Lead EKG: Normal sinus rhythm at a rate of 65. Normal axis. No ST segment elevations. Prolonged QRS duration with an RSR prime configuration in the right sided leads, consistent with RBBB. No prior EKG for comparison. Final impression: normal sinus rhythm with RBBB, no evidence of acute myocardial ischemia. CT abdomen/pelvis independently reviewed and interpreted by myself and radiology demonstrated a similar multiloculated fluid collection concerning for abscess. I did consult and discuss the patient with his surgeon, Dr. Rosales, who believes the fluid collection is likely secondary to postsurgical seroma. He has low concern for postoperative infection or abscess formation, especially considering he has no leukocytosis, fever, or other vital sign abnormalities. He believes empiric treatment with IV ceftriaxone and IV metronidazole in the ED followed by outpatient oral antibiotics is appropriate. He recommend outpatient follow-up in his clinic early next week. I do believe the patient is stable for discharge. Patient's presentation is most likely consistent with acute dehydration, postsurgical seroma. Patient is tolerating p.o. and is able to rehydrate orally. They were instructed to follow up with Dr. Webster early next week. Return precautions were given including any new or worsening symptoms, including fevers or intractable abdominal pain. They were given a prescription for cefdinir and metronidazole. Patient and his son understands and agrees to the plan. FINAL IMPRESSION: #Acute on chronic vomiting #acute dehydration #Acute postsurgical seroma, possible infection #History of recent left inguinal hernia repair DISPOSITION: Discharge home CONDITION: Fair Lab Data Lab results reviewed: Yes I reviewed the patient's lab results Labs: Lab Results 09/17/25 Range/Units 12:07 WBC 7.4 (4.0-11.0) 10^3/uL RBC 3.57 L (4.70-6.10) 10^6/uL Hgb 13.0 L (14.0-18.0) g/dL Hct 37.4 L (42.0-54.0) % MCV 104.8 H (80.0-94.0) fL MCH 36.4 H (25.9-34.0) pg MCHC 34.8 (29.9-35.2) g/dL RDW 13.9 (11.0-15.0) % Plt Count 175 (150-450) 10^3/uL MPV 12.0 (9.5-13.5) fL Neut % (Auto) 80.6 H (43.0-75.0) % Lymph % (Auto) 5.8 L (20.5-60.0) % Hockley % (Auto) 10.6 (1.7-12.0) % Eos % (Auto) 1.8 (0.9-7.0) % Baso % (Auto) 0.4 (0.2-2.0) % Neut # (Auto) 5.9 (1.4-6.5) 10^3/uL Lymph # (Auto) 0.4 L (1.2-3.8) 10^3/uL Hockley # (Auto) 0.8 (0.3-0.8) 10^3/uL Eos # (Auto) 0.1 (0.0-0.7) 10^3/uL Baso # (Auto) 0.0 (0.0-0.1) 10^3/uL Abs Immat Gran (auto) 0.06 H (0.00-0.03) 10^3/uL Imm/Tot Granulo (auto) 0.8 H (0.0-0.5) % Sodium 135 L (136-145) mmol/L Potassium 3.8 (3.5-5.1) mmol/L Chloride 101 (98-107) mmol/L Carbon Dioxide 23.0 (21.0-32.0) mmol/L Anion Gap 14.8 BUN 35.0 H (7.0-18.0) mg/dL Creatinine 2.06 H (0.70-1.30) mg/dL Est GFR ( Amer) 38 L (>=60 mL/min/1.73m^2) Est GFR (Non-Af Amer) 31 L (>=60 mL/min/1.73m^2) BUN/Creatinine Ratio 17.0 Glucose 90 (74-106) mg/dL Calcium 8.5 (8.5-10.1) mg/dL Total Bilirubin 1.1 H (0.2-1.0) mg/dL AST 18 (15-37) U/L ALT 15 L (16-63) U/L Alkaline Phosphatase 90 (46-116) U/L Troponin I High Sens 10.0 (4.0-76.1) pg/mL Total Protein 7.0 (6.4-8.2) g/dL Albumin 2.9 L (3.4-5.0) g/dL Globulin 4.1 g/dL Albumin/Globulin Ratio 0.[address] scan - abdomen: Attestation: I personally reviewed and interpreted this imaging study as follows: Radiologist's impression: ITS Impressions Abdomen/Pelvis CT 09/17/25 12:36 IMPRESSION: The region of the left inguinal repair surgical bed there is multiloculated fluid collection with foci of air measuring up to 9 cm and appears adjacent inflammation or wall thickening. Primary concern for abscess formation. No bowel herniation. Impression dictated by: Jong Madsen M.D. 09/17/2025 2:37 PM Dictation Location: [facility] Electronically authenticated by: [id number] Y Date: 09/17/2025 14:37 ECG Data Attestation: I personally reviewed and interpreted this ECG as follows: Discharge Plan Discharge Chief Complaint: Weakness Clinical Impression: Dehydration, Postoperative seroma Patient Disposition: Home, Self-Care Time of Disposition Decision: 15:31 Condition: Fair Mode of Transportation: Private Vehicle Prescriptions / Home Meds: New cefdinir 300 mg capsule 300 mg PO BID 5 Days Qty: 10 0RF metronidazole 500 mg tablet 500 mg PO BID 5 Days Qty: 10 0RF No Action lenalidomide [Revlimid] 10 mg capsule 10 mg PO DAILY Rx Instructions: swallow whole with glass of water; do not open, crush, chew , break, or dissolve lenalidomide 5 mg capsule 5 mg PO DAILY liothyronine 5 mcg tablet 10 mcg PO DAILY pioglitazone 30 mg tablet 30 mg PO DAILY Jardiance 10 mg tablet 10 mg PO Q24H glyburide micronized 6 mg tablet 6 mg PO Q12H metformin 500 mg tablet 1,000 mg PO BID oxycodone 10 mg tablet 10 mg PO PRN pantoprazole 40 mg tablet,delayed release (DR/EC) 40 mg PO QDAY Print Language: Tuvaluan Instructions: Dehydration (ED), Seroma (DC) Referrals: Jose Alberto Young MD [Primary Care Provider, Family Practice] - 1 week
[2025-09-17] MEDS: OXYCODONE HCL 5 MG TABLET 10 MG PO (13:21)
[2025-09-17] MEDS: METRONIDAZOLE/SODIUM CHLORIDE 500 MG/100 ML PREMIX 100 MG IV (16:09)
== END 2025-09-17 17:27 | disposition home or self-care (01) ==
PROVIDERS: Emergency Provider Student in an Organized Health Care Education/Training Program; PCP Family Medicine
DX: E86.0 Dehydration (principal); K91.872 Postprocedural seroma of a digestive system organ or structure following a digestive system procedure
CPT/HCPCS: 36415; 74177; 80053; 84484; 85025; 93005; 96361; 96365; 96366; 96368; 96375; 99284; J0696; J1836; J2405; Q9967